=== PATIENT | female | born 1940 | race Caucasian/White ===

== ENCOUNTER 2016-12-26 07:55 | Day surgery (SDC) | payer MEDICARE, OTHER ==
[~2016-12-26] VITALS: Ht 160 cm; Wt 63.5 kg
[~2016-12-26 07:55] MED LIST: ASPIRIN EC325 MG PO; BACLOFEN10 MG PO; BENZONATATE200 MG PO; CELEXA20 MG PO; CEPHALEXIN500 MG PO; COMBIVENT INH14.7 GM INH; FENTANYL1 EAC2 TD; FLEXERIL10 MG PO; GABAPENTIN300 MG PO; HYDROCHLOROTH12.5 M1 PO; LEVOTHYROXINE25 MCG PO; MAGNESIUM250 M1 PO; METFORMIN HCL500 MG PO; NEXIUM20 MG PO; NITROGLYCERIN0.4 MG SL; NITROSTAT0.4 MG SL; NORCO 10-325 T1 EACH PO; NORCO 5-325 TA1 EACH PO; NORVASC5 MG PO; PRILOSEC40 MG PO; PROMETHAZINE HC25 MG PR; TOPROL XL50 MG PO; WELLBUTRIN XL150 MG PO; ZANAFLEX4 MG PO; ZOCOR20 MG PO; ZOFRAN ODT4 MG PO; ZOFRAN ODT4 MG SL
--- NOTE | 2016-12-26 09:47 | NUR ---
12/26/16 0947 Argelia Murphy 0959 PATIENT ARRIVES TO PACU UNRESPONSIVE TO VERBAL OR PAINFUL STIMULI. RESP EVEN AND UNLABORED, MASK AT 6 LITERS.
--- NOTE | 2016-12-28 12:08 | OR ---
[facility] [address] [place], [place] [address] Signed DATE OF SERVICE: 12/26/2016 PREOPERATIVE DIAGNOSES: Change in bowel habits with diarrhea. Diverticulosis. Internal hemorrhoids. Minimal rectal bleeding with her bowel prep. POSTOPERATIVE DIAGNOSES: Minimal to moderate sigmoid diverticulosis. Moderate external hemorrhoids. PROCEDURE: Colonoscopy with random cold biopsies. ESTIMATED BLOOD LOSS: None. INDICATIONS: Clementine is a 76-year-old female, whom I have known for several years. Recently, she had a change in bowel habits with diarrhea. She has also been on metformin for her diabetes. In addition, she has to use a fentanyl patch for chronic pain issues, and she uses citalopram each day for anxiety. She has had a surgical fusion, which limits the range of motion of her neck, and she has been using some Benefiber to help with the diarrhea. She was asked to see me for a followup colonoscopy. In 2009, she had an initial screening colonoscopy with myself. This revealed her diverticulosis and hemorrhoids. There is no family history of colon cancer or polyps. I gave Clementine a pamphlet in the office on colonoscopy, and we have reviewed the nature of the test along with the risks including, but not limited to gas bloating, crampy abdominal pain, bleeding, perforation requiring surgery, and missed diagnosis. Also because of her multiple medic al issues, we asked an anesthesia provider to help us with increased monitoring sedation with propofol. She had expressed understanding and wished to proceed. PROCEDURE NOTE: Clementine was taken into our endoscopy suite and placed in a left lateral decubitus position. She was given IV sedation with propofol per nurse ore smelter. A digital rectal exam was performed, and she does have moderate external hemorrhoids. The adult colonoscope was introduced, advanced all the way around into the cecum under direct visualization of camera without difficulty. Her prep was quite excellent. The scope was then slowly withdrawn. She had diverticulosis in the sigmoid colon. They were moderate in size, minimal to moderate in number and scattered about. We took random cold biopsies in the colon because of the history of diarrhea. The rectum itself was unremarkable. Upon retroflexion of scope, she does have some small internal hemorrhoid columns as well. After this, the gas was suctioned out. The colonoscope removed. Clementine mayer Electronically Signed By: LUKAS CASTAÑEDA MD 12/28/16 1208 PATIENT NAME: CLEMENTINE NUNEZ OPERATIVE REPORT DATE OF : 44 PHYSICIAN: LUKAS CASTAÑEDA MD REPORT #: [id number] REPORT IS CONFIDENTIAL AND NOT TO BE RELEASED WITHOUT AUTHORIZATION [facility] [address] [place], [place] [address] Signed the procedure quite well. RECOMMENDATIONS: I will see Clementine back in my office in 7-14 days to review her results. MD ED Street/[address] /[id number] cc: Lukas Castañeda MD's Office [facility] Electronically Signed By: LUKAS CASTAÑEDA MD 12/28/16 1208 PATIENT NAME: CLEMENTINE NUNEZ OPERATIVE REPORT DATE OF : 44 PHYSICIAN: LUKAS CASTAÑEDA MD REPORT #: [id number] REPORT IS CONFIDENTIAL AND NOT TO BE RELEASED WITHOUT AUTHORIZATION
== END 2016-12-26 10:15 | disposition home or self-care (01) ==
LOC: DS 07:55 → OPS 07:55 → DS 08:30 → OPS 08:30
PROVIDERS: Colon & Rectal Surgery
PROC: 0DBE8ZX Excision of Large Intestine, Via Natural or Artificial Opening Endoscopic, Diagnostic (ICD-10-PCS; principal; 2016-12-26 08:30)
DX: K52.9 Noninfective gastroenteritis and colitis, unspecified (principal); K57.30 Diverticulosis of large intestine without perforation or abscess without bleeding; K64.8 Other hemorrhoids; K64.4 Residual hemorrhoidal skin tags; I25.2 Old myocardial infarction; I10 Essential (primary) hypertension; J44.9 Chronic obstructive pulmonary disease, unspecified; K21.9 Gastro-esophageal reflux disease without esophagitis; E78.5 Hyperlipidemia, unspecified; E03.9 Hypothyroidism, unspecified; E11.9 Type 2 diabetes mellitus without complications; M19.90 Unspecified osteoarthritis, unspecified site; F32.9 Major depressive disorder, single episode, unspecified; Z85.3 Personal history of malignant neoplasm of breast; M85.80 Other specified disorders of bone density and structure, unspecified site; Z79.82 Long term (current) use of aspirin; Z79.01 Long term (current) use of anticoagulants; Z79.899 Other long term (current) drug therapy; Z90.710 Acquired absence of both cervix and uterus; Z95.1 Presence of aortocoronary bypass graft; Z90.11 Acquired absence of right breast and nipple; Z98.890 Other specified postprocedural states; Z91.02 Food additives allergy status
CPT/HCPCS: 00810; 88305; J2250; J3010; J7120

== ENCOUNTER 2017-08-19 11:33 | Inpatient (IN) | payer MEDICARE, OTHER ==
[~2017-08-19] VITALS: Ht 160 cm; Wt 67.6 kg
--- OUTSIDE RECORDS SUMMARY | ~2017-08-19 | XMS | Clinical Summary ---
Demographics + + + | Address | [address] | | | [place] [address] | + + + | Home Phone | | + + + | Preferred Language | Unknown | + + + | Marital Status | Unknown | + + + | Sikhism Affiliation | Unknown | + + + [...] Team Providers + +------+ + | Care Turbinated Bone Grinder Name | Role | Phone | + +------+ + PP | Unavailable | + +------+ + Source Comments HOLLY is fully live on both [facility] and [facility] InPatient.[facility] Allergies Not on File Current Medications Not [...] | + + + Plan of Treatment + + + + + | Health Maintenance | Due Date | Last Done | Comments | + + + + + | INFLUENZA VACCINE | | | | | (FLU SHOT) | 7 | | | + + + + + Results Not on filefrom Last 3 Months"
--- OUTSIDE RECORDS SUMMARY | ~2017-08-19 | XMS | Clinical Summary ---
Demographics + + + | Address | [address] | | | [place] [address] | + + + | Home Phone | | + + + | Preferred Language | Unknown | + + + | Marital Status | Unknown | + + + | Jew Affiliation | Unknown | + + + [...] Providers + +------+ + | Care Accounting Advisory Services Manager Name | Role | Phone | + +------+ + PP | Unavailable | + +------+ + Source Comments HOLLY is fully live on both [facility] Ambulatory and [facility] InPatient.[facility] & [facility] Allergies Not on File Current Medications Not [...]
--- OUTSIDE RECORDS SUMMARY | ~2017-08-19 | XMS | Clinical Summary ---
Demographics + + + | Address | [address] | | | [place] [address] | + + + | Home Phone | | + + + | Preferred Language | Unknown | + + + | Marital Status | Unknown | + + + | Cheondoism Affiliation | Unknown | + + + [...] Team Providers + +------+ + | Care Stile Ripsaw Operator Name | Role | Phone | + +------+ + PP | Unavailable | + +------+ + Source Comments HOLLY is fully live on both [facility] Ambulatory and [facility] InPatient.[facility] & [facility] Allergies Not on File Current Medications [...]
[~2017-08-19 11:33] MED LIST changes: +OMEPRAZOLE40 MG PO; -PRILOSEC40 MG PO
--- NOTE | 2017-08-19 16:25 | NUR ---
77 YEAR OLD FEMALE PATIENT ADMITTED TO CCU FROM ER VIA STRETCHER UNDER DR. DE LOS SANTOS WITH DX OF SEPSIS, PNEUMONIA. HAS HX OF DM TYPE 2, COPD, BREAST CA. PATIENT HAS BEEN FEELONG ILL FOR PAST 2 DAYS, HAS BEEN VOMITING AT HOME. RECIEVED 2 LITERS OF FLUID IN ER, ROCEPHIN AND ZITHROMAX, DUONEB. ADMITTING AMMONIA 65, HAS ELEVATED LIVER FUNCTIONS. CREAT-2.48. UPON ADMIT TO CCU PATIENT IS ALERT. ADMISSION PROCESS STARTED. O2 SAT-76. O2 INCREASED TO4 L NC
--- NOTE | 2017-08-19 17:05 | NUR ---
ABGS DRAWN EARLIER RESULTS, PH-7.27, PCO2-52.7, PO2-92, HCO3-23.0.
--- NOTE | 2017-08-19 18:40 | NUR ---
FEED PATIENT DINNER. HAVING DIFFICULTY WITH TRACKING THOUGHTS AND COORINATION. BIPAP TO BE STARTED. HAVING JERKING MOVEMENTS AT TIMES. FAMILY MEMBERS ARE IN ROOM.
--- NOTE | 2017-08-19 20:09 | NUR ---
REPORT RECEIVED AT 1900 FROM [facility]. IN TO SEE PT AT 1945. PT WITH EYES CLOSED. BIPAP ON PER RT. PT NODS HEAD YES OR NO. RAILS UP X4, BED ALARM ON. CALL LIGHT IN REACH. PT WITH EX WH UPPER L LOBE POSTERIOR, DIMINISHED THROUGHOUT OTHERWISE. PT NODDED HEAD NO TO PAIN OR NAUSEA.
--- NOTE | 2017-08-20 00:21 | NUR ---
REPOSITIONED PT TO FLOAT ON PILLOWS. PROVIDED BIPAP BREAK. PLACED ON 2L O2. PT ORIENTED, HOWEVER FORGETFUL. FORGOT PILLS IN MOUTH, EVEN THOUGH JUST GAVE THEM TO HER. NEEDED REMINDER TO SWALLOW THEM.
--- NOTE | 2017-08-20 02:29 | NUR ---
PT ASLEEP. O2 ON 2L. RR EVEN AND UNLABORED.
--- NOTE | 2017-08-20 05:08 | NUR ---
REPOSITIONED PT IN BED WITH PILLOWS, ELEVATED FEET. PT REMAINS FORGETFUL AND DROWSY. PLACED BIPAP ON. IPAP 10, EPAP 5, FIO2 25%. CALL LIGHT IN HAND. REMINDED PT THAT SHE IS NPO FOR PROCEDURE.
--- NOTE | 2017-08-20 06:51 | NUR ---
PT REQUESTED BIPAP OFF. PLACED ON 2L NC.
--- NOTE | 2017-08-20 11:00 | NUR ---
AMBULATING IN HALLWAY WITH PHYS THERAPY. WALKED WITH PHYS THERAPY USING WALKER, AMBULATED FROM ROOM 130 TO NURSES DESK THE BACK TO ROOM, THEN TO BED. HAS BEEN OFF BIPAP ALL DAY, IS ON ROOM AIR.
--- NOTE | 2017-08-20 13:21 | EKG ---
[facility] [address] [facility] [place], [place] [address] Signed Normal sinus rhythm Left axis deviation Incomplete right bundle branch block Anterior infarct , age undetermined Abnormal ECG Confirmed by JOSE DE LOS SANTOS MD ([id number]) on 08/20/2017 1:21:15 PM Electronically Signed By: JOSE DE LOS SANTOS MD 08/20/17 1321 PATIENT NAME: RADHA NUNEZ Electrocardiogram DATE OF : 44 PHYSICIAN: JOSE DE LOS SANTOS MD REPORT #: [id number] REPORT IS CONFIDENTIAL AND NOT TO BE RELEASED WITHOUT AUTHORIZATION
--- NOTE | 2017-08-20 17:25 | NUR ---
PATIENT RESTING IN THE CHAIR. PATIENTS DAUGHTER IN ROOM. RN IN ROOM. THIS TUB MENDER ASSISTED PATIENT FROM BATHROOM TO CHAIR 1PERSON SBA WITH FWW. PATIENT STATES THAT SHE HAD HER HODGE REMOVED PRIOR TO MOVING TO MED/SURG. PATIENT VOIDED AND STATED NO PAIN. CALL LIGHT WITHIN REACH. NO OTHER NEEDS AT THIS TIME.
--- NOTE | 2017-08-20 17:55 | NUR ---
REPORT RECIEVED FROM GRAYSON HAWKINS. PT UP IN BATHROOM AND HEALTH EDUCATION ASSISTANT ABOUT TO DO VS. PT DENIES CONCERNS. DAUGHTER IN ROOM. BS WNL. NO COVERAGE NEEDED.
--- NOTE | 2017-08-20 18:29 | NUR ---
PT TRANSFER FROM CCU THIS EVENING. NAVEEN PAINTER'Ade UO QS. LUNGS COARSE WITH NON PRODUCTIVE COUGH. SBA WITH FWW, USES CANE AT HOME. VS STABLE. VERY HARD STICK.
--- NOTE | 2017-08-20 18:55 | NUR ---
RECEIVED REPORT FROM RN. ASSISTED PATIENT TO BATHROOM WITH SBA/FWW. NOW RESTING IN CHAIR, BREATHING IS EVEN AND UNLABORED. DENIES FURTHER NEEDS. CALL LIGHT WITHIN REACH, FAMILY AT BEDSIDE.
--- NOTE | 2017-08-20 19:45 | NUR ---
ASSISTED PATIENT TO BATHROOM WITH SBA/FWW. NOW RESTING IN CHAIR AGAIN, BREATHING IS EVEN AND UNLABORED. DENIES FURTHER NEEDS. ASSESSMENT DONE. CALL LIGHT WITHIN REACH.
--- NOTE | 2017-08-20 20:45 | NUR ---
PATIENT ASSISTED TO THE BATHROOM WITH SBA/FWW. NOW RESTING IN BED, BREATHING IS EVEN AND UNLABORED. DENIES FURTHER NEEDS. CALL LIGHT WITHIN REACH, BED ALARM ON.
--- NOTE | 2017-08-20 20:54 | NUR ---
PATIENT CALLED TO USE THE BATHROOM. 1 PA WITH WALKER. PATIENT IS BACK IN BED. CALL LIGHT WITHIN REACH.
--- NOTE | 2017-08-20 21:20 | NUR ---
PATIENT RESTING COMFORTABLY IN BED, BREATHING IS EVEN AND UNLABORED. DENIES NEEDS AT THIS TIME. VITALS DONE, MEDICATIONS GIVEN. CALL LIGHT WITHIN REACH, BED ALARM ON.
--- NOTE | 2017-08-21 00:05 | NUR ---
PATIENT RESTING COMFORTABLY IN BED, BREATHING IS EVEN AND UNLABORED. DENIES NEEDS AT THIS TIME. CALL LIGHT WITHIN REACH, BED ALARM ON.
--- NOTE | 2017-08-21 02:30 | NUR ---
PATIENT RESTING COMFORTABLY IN BED, BREATHING IS EVEN AND UNLABORED. DENIES NEEDS AT THIS TIME. CALL LIGHT WITHIN REACH.
--- NOTE | 2017-08-21 04:00 | NUR ---
PATIENT RESTING COMFORTABLY IN BED, BREATHING IS EVEN AND UNLABORED. FLACC SCORE OF 0. CALL LIGHT WITHIN REACH.
--- NOTE | 2017-08-21 06:27 | NUR ---
PATIENT RESTING COMFORTABLY IN BED, BREATHING IS EVEN AND UNLABORED. DENIES NEEDS AT THIS TIME. CALL LIGHT WITHIN REACH.
--- NOTE | 2017-08-21 07:20 | NUR ---
REPORT RECIEVED FROM GRAYSON FRANCO. PT SLEPT WELL AND REPORTS SAME. AWAKE AND WATCHING TV. BP WORKING BEST WITH MANUAL BP.
--- NOTE | 2017-08-21 08:44 | NUR ---
ASSESSED PT AND ADMINISTERED MEDICATIONS. BP HIGH EVEN WITH MANUAL. 182/[address] DE LOS SANTOS ALTHOUGH ADMINISTERED METOPROLOL. PT STATES SHE IS USUALLY HIGH. EATING BREAKFAST AND DENIES CONCERNS. STATES SHE IS FEELING MUCH BETTER TODAY AND FEELS HER BREATHING IS BACK TO BASELINE.
--- NOTE | 2017-08-21 09:19 | NUR ---
VS AND I&O'S TAKEN AND DOCUMENTED. PT IS UP TO THE BATHROOM. INFORMED PT TO CALL WHEN SHE IS FINISHED, PT UNDERSTANDS. CALL LIGHT CORD IS IN REACH.
--- NOTE | 2017-08-21 10:15 | NUR ---
ASSISTED PT INTO BATHROOM. WALKING WELL WITH FWW. NO SOB NOTED.
--- NOTE | 2017-08-21 11:27 | NUR ---
ASSISTED PT BACK TO THE CHAIR FROM THE BATHROOM. ASKED PT IF SHE WOULD LIKE A SHOWER TODAY, PT STATES SHE WOULD LIKE TO TAKE ONE AFTER LUNCH. PT GIVEN FRESH ICE WATER. CALL LIGHT IS IN REACH.
[2017-08-21] MEDS ORDERED: CEFPODOXIME PR200 MG PO (12:10)
--- NOTE | 2017-08-21 13:39 | NUR ---
PT BACK IN BED FOR AFTERNOON REST TIME. DAUGHTER AT BEDSIDE. MEDICATION ADMINISTERED. SL. FENTYL PATCH PLACED BETWEEN SHOULDER BLADES PER REQUEST.
--- NOTE | 2017-08-21 13:45 | NUR ---
PATIENT RESTING IN BED WATCHING TV. CALL LIGHT WITHIN REACH. NO OTHER NEEDS AT THIS TIME.
--- NOTE | 2017-08-21 16:00 | NUR ---
PT CALLED TO STATE THE AB INFUSING WAS HURTING HER ARM. TURNED DOWN RATE TO HALF.
[2017-08-21] MEDS ORDERED: RANITIDINE HCL150 MG PO (16:03)
[2017-08-21] MEDS ORDERED: SIMVASTATIN40 MG PO (16:30)
[2017-08-21] MEDS ORDERED: DURAGESIC1 EAC1 TD (16:34)
[2017-08-21] MEDS ORDERED: GLUCOPHAGE500 MG PO (16:43)
--- NOTE | 2017-08-21 16:53 | NUR ---
PT UP TO THE RESTROOM WITH SBA AND FWW. IV INFUSING, PT TOLERATING WELL AFTER TURING RATE DOWN.
--- NOTE | 2017-08-21 18:16 | NUR ---
PT SL EXCEPT FOR AB. FENTYL PATCH BETWEEN SHOULDERS ON BACK. BS CHECKS DC'D. REPORTS LOOSE STOOL. PLAN TO DC TOMORROW.
--- NOTE | 2017-08-21 18:25 | NUR ---
THIS SERVICE CENTER COORDINATOR ASSISTED PATIENT TO THE RESTROOM. 1PERSON SBA WITH FWW. THIS SERVICE CENTER COORDINATOR ASSISTED PATIENT FROM THE RESTROOM BACK TO BED. FRESH ICE WATER. CALL LIGHT WITHIN REACH. NO OTHER NEEDS AT THIS TIME.
--- NOTE | 2017-08-21 19:00 | NUR ---
RECEIVED REPORT FROM DAY SHIFT RN. DAUGHTER AT BEDSIDE. PT IS ON RA. RR WNL. SBA WITH FWW. REPORTS NO PAIN AT HTIS TIME. CALL LIGHT WITHIN REACH. NO OTHER NEEDS AT THIS TIME.
--- NOTE | 2017-08-21 21:41 | NUR ---
ROUNDED CHARGE. PATIENT ASSISTED TO THE RESTROOM. PATIENT IS A SBA W/FWW AND IS STEADY ON HER FEET. PATIENT IS BACK IN BED RESTING. VITALS TAKEN AND RECORDED. PATIENT DENIES ANY NEEDS CALL LIGHT IN REACH.
--- NOTE | 2017-08-21 23:19 | NUR ---
HELPED PT TO BATHRROM SBA WITH FWW. STEADY ON FEET.
--- NOTE | 2017-08-22 03:17 | NUR ---
PT IN BED WITH LIGHTS OFF. APPEARS TO BE SLEEPING. CALL LIGHT WITHIN REACH. BED ALARM IN PLACE.
--- NOTE | 2017-08-22 06:52 | NUR ---
PT HAD GREAT NIGHT. SLEPT THROUGHOUT THE NIGHT. NO PAIN. LUNGS WERE CLEAR. IS HAVING SOME LOOSE STOOLS.
--- NOTE | 2017-08-22 07:30 | NUR ---
BEDSIDE HANDOFF REPORT RECEIVED FROM SIGNAL HELPER RN. PT RESTING IN BED. PT DENIES NEEDS AT THIS TIME.
--- NOTE | 2017-08-22 08:40 | NUR ---
PT RESTING IN BED, EATING BREAKFAST. PT DENIES PAIN. PT ASSISTED TO BATHROOM, CONTINUES TO HAVE LOOSE STOOL, PROVIDED WITH BARRIER CREAM AND CLEAN GOWN. PT ASSISTED BACK TO BED, 1PA. PT ON ROOM AIR, LUNG SOUNDS CLEAR UPPER COARSE LOWER, DENIES SOB, ENCOURAGED TO USE I/S AND ACAPELLA. CMS INATCT, WITHOUT EDEMA, PULSES PALPABLE. PT DENIES NAUSEA, TOLERATING ADA DIET, BOWEL TONES ACTIVE. PT SALINE LOCKED. DISCUSSED PLAN OF CARE FOR THE DAY. PT DENIES OTHER NEEDS AT THIS TIME.
--- NOTE | 2017-08-22 10:04 | NUR ---
PT SITTING IN CHAIR, SAID HE HAS IMPROVED. SHE ASKED ABOUT MASS HELD ON SITE. I ASKED IF SHE WOULD LIKE FOR THE DIRECTOR OF MARKETING COMMUNICATIONS TO VISIT. PT STATED SHE WOULD LIKE TO VIEW MASS FIRST AND THEN MAKE A DECISION. GAVE A BLESSING, WILL FOLLOW NEALEJANDRINA
== END 2017-08-22 10:35 | disposition home or self-care (01) | DRG 871 ==
LOC: ED 11:33 → CCU 15:20 → MS 08-20 16:30
PROVIDERS: ADMIT Internal Medicine
PROC: 5A09457 Assistance with Respiratory Ventilation, 24-96 Consecutive Hours, Continuous Positive Airway Pressure (ICD-10-PCS; principal; 2017-08-19)
DX: A41.9 Sepsis, unspecified organism (principal); J18.9 Pneumonia, unspecified organism; G93.41 Metabolic encephalopathy; J96.01 Acute respiratory failure with hypoxia; N17.9 Acute kidney failure, unspecified; N18.2 Chronic kidney disease, stage 2 (mild); I12.9 Hypertensive chronic kidney disease with stage 1 through stage 4 chronic kidney disease, or unspecified chronic kidney disease; R74.0 Nonspecific elevation of levels of transaminase and lactic acid dehydrogenase [LDH]; I25.10 Atherosclerotic heart disease of native coronary artery without angina pectoris; Z95.1 Presence of aortocoronary bypass graft; G89.29 Other chronic pain; M54.2 Cervicalgia; E11.9 Type 2 diabetes mellitus without complications; Z79.84 Long term (current) use of oral hypoglycemic drugs; F32.9 Major depressive disorder, single episode, unspecified; E03.9 Hypothyroidism, unspecified
CPT/HCPCS: 36415; 36600; 71045; 76705; 80053; 80069; 81001; 82140; 82306; 82570; 82803; 83605; 84100; 84300; 84439; 84443; 84484; 84540; 85025; 85610; 85730; 86704; 86706; 86709; 86803; 87040; 87340; 87502; 93005; 93010; 93306; 94640; 94660; 94668; 97110; 97116; 97162; J0456; J0696; J1650; J7030

== ENCOUNTER 2018-01-26 08:29 | Inpatient (IN) | payer MEDICARE, OTHER ==
[~2018-01-26] VITALS: Ht 160 cm; Wt 67.6 kg
--- OUTSIDE RECORDS SUMMARY | ~2018-01-26 | XMS | Encounter Summary ---
Demographics + + + | Address | [address] | | | [place] [address] | + + + | Home Phone | | + + + | Preferred Language | Unknown | + + + | Marital Status | | + + + | Mormonism Affiliation | [id number] | + + + | Race | Unknown | + + + | Ethnic Group | Unknown | + + + Author + + + | Author | [facility] | | | and [place] | + + + | Organization | [facility] | | | and [place] | + + + | Address | Unknown | + + + | Phone | Unavailable | + + + Support + + + + + | Name | Relationship | Address | Phone | + + + + + | Lucy Winchester | ECON | [place], [place] | | | | | [address] | | + + + + + | Kellen Briones | ECON | [place], [place] | | | | | [address] | | + + + + + Care Team Providers + +------+ + | Care Change Control Specialist Name | Role | Phone | + +------+ + | Barb Marte | PCP | | + +------+ + Reason for Referral Diagnostic/Screening (Routine) +--------+--------+ + + + + | Status | Reason | Specialty | Diagnoses / | Referred By | Referred To | | | | | Procedures | Contact | Contact | +--------+--------+ + + + + | Closed | | Radiology | Diagnoses | Joe, | [facility] | | | | | Lumbar | AYAAN Villareal | [address] | | | | | radiculopath | [address] | [place], | | | | | y | [address] | [place] | | | | | Procedures | [address] | [address] | | | | | MRI Lumbar | [place], | Phone: | | | | | Spine wo | [place] [address] | [phone] | | | | | Contrast | Phone: | Fax: | | | | | | [phone] | [phone] | | | | | | Fax: | | | | | | | [phone] | | +--------+--------+ + + + + Reason for Visit + + + | Reason | Comments | + + + | Follow-up | Low Back Pain | + + + Encounter Details +--------+---------+ + + + | Date | Type | Department | Care Team | Description | +--------+---------+ + + + | 01/07/ | Office | [facility] | Mono Diaz, | Lumbar radiculopathy | | 2018 | Visit | PHYSIATRY [address] | PA-C [address] | (Primary Dx); | | | | [place], | [address] [place] | Spinal stenosis of | | | | [place] [id number] | [place] [address] | lumbar region with | | | | [phone] | [phone] | [id number] | | | | | | level moderately | | | | | | severe | +--------+---------+ + + + Social History [...] + + + as of this encounter Last Filed Vital Signs + + + + | Vital Sign | Reading | Time Taken | + + + + | Blood Pressure | 165/88 | 01/07/2018 1450 PDT | + + + + | Pulse | 73 | 01/07/2018 1450 PDT | + + + + | Temperature | - | - | + + + + | Respiratory Rate | - | - | + + + + | Oxygen Saturation | - | - | + + + + | Inhaled Oxygen | - | - | | Concentration | | | + + + + | Weight | 64 kg (141 lb) | 01/07/2018 1450 PDT | + + + + | Height | 160 cm (5' 3") | 01/07/2018 1450 PDT | + + + + | Body Mass Index | 24.98 | 01/07/2018 1450 PDT | + + + + in this encounter Instructions Patient Instructions - Mono Diaz PA-C - 01/07/2018 1500 PDTLumbar MRI ordered, once ap proved by insurance radiology department will call you to set up an appointment. Possible Causes of Low Back or Leg Pain The symptoms in your back or leg may be due to pressure on a nerve. This pressure may be ca used by a damaged disk or by abnormal bone growth. Either way, you may feel pain, burning, t ingling, or numbness. If you have pressure on a nerve that connects to the sciatic nerve, chinmay in may shoot down your leg. Pressure from the disk Constant wear and tear can weaken a disk over time and cause back pain. The disk can then b e damaged by a sudden movement or injury. If its soft center begins to bulge, the disk may p ress on a nerve. Or the outside of the disk may tear, and the soft center may squeeze throug h and pinch a nerve. Pressure from bone As a disk wears out, the vertebrae right above and below the disk begin to touch. This can put pressure on a nerve. Often, abnormal bone (called bone spurs) grows where the vertebrae rub against each other. This can cause the foramen or the spinal canal to narrow (called dana nosis) and press against a nerve. Date Last Reviewed: 03/06/201519992912-5842 [employer] [address] [place] [address], [place] [address]. All righ ts reserved. This information is not intended as a substitute for professional medical care. Always follow your healthcare professional's instructions. in this encounter Progress Notes Mono Diaz PA-C - 01/07/2018 1500 PDTFormatting of this note may be different from the original. CHIEF COMPLAINT: Chief Complaint Patient presents with Follow-up Low Back Pain HISTORY OF PRESENT ILLNESS: Clementine Winchestre is a 77 y.o. female being seen today in follow-up for complaints of low ba ck pain. The patient has been seen for this complaint in the past. Previously it was oscar mmended that she receive bilateral L5/S1 TFESI for spinal stenosis. Her last injection was 06/27/16. She reports that the treatment was effective for approximately 3 months. The cintia ent reports overall her symptoms are worsening. She rates the pain as 5 on scale of 1-10. She describes the pain as a sharp, achy, tingling sensation to her low back and an aching pa in into both legs, sharp at times. Her symptoms worsen with standing and prolonged walking. Her symptoms improve with lying down, sitting down and medication use. She walks with a w alker. The patient does not describe numbness of the bilateral lower extremities. She does report weakness of the bilateral lower extremities. The patient does report recent falls w ith increased frequency lately. She does not have bowel and bladder dysfunction. She does not have saddle anesthesia. Treatments for these complaints have included prior steroid injections, physical therapy, c hiropractics therapy and narcotic medications use; she currently uses [place], Flexeril and ga bapentin. She is taking 900 mg of gabapentin 3 times a day. She is also taking baclofen 10 mg once a day. Patient's medications, allergies, past medical, surgical, social and family histories were reviewed and updated as appropriate. CURRENT MEDICATIONS: Current Outpatient Prescriptions Medication Sig Dispense Refill amLODIPine (NORVASC) 5 mg tablet Take 5 mg by mouth Daily. baclofen (LIORESAL) 10 mg tablet Take 1 tablet by mouth as needed. 60 tablet 2 benzonatate (TESSALON) 200 MG capsule Take 200 mg by mouth 3 times daily as needed. buPROPion (WELLBUTRIN SR) 150 mg 12 hr tablet Take 150 mg by mouth Daily. citalopram (CELEXA) 20 mg tablet Take 20 mg by mouth Daily. fentaNYL (DURAGESIC) 50 mcg/hr Place 1 patch onto the skin every 72 hours. gabapentin (NEURONTIN) 300 mg capsule Take 900 mg by mouth 3 times daily. hydroCHLOROthiazide (HYDRODIURIL) 12.5 MG tablet TK 1 T PO ONCE D 0 levothyroxine (SYNTHROID) 25 mcg tablet Take 25 mcg by mouth Daily. 5 magnesium, as oxide, 250 MG tablet Take 250 mg by mouth Daily. metFORMIN (GLUCOPHAGE) 500 mg tablet Take 500 mg by mouth nightly. Takes 1 tab in the m orning and 2 tabs at night nitroglycerin (NITROSTAT) 0.[address] [...] feel like she was in a fog. REVIEW OF SYSTEMS: GENERALLY: No fever, chills, weight changes. EYES: No vision changes. EARS, NOSE, AND THROAT: No hearing loss or + tinnitis,no difficulty swallowing, + hoarsenes s. NEUROMUSCULAR: Please see the review of systems discussed above in the history of present illness. In addition, the patient has no dizziness, no blackouts, no headaches. CARDIOVASCULAR: No chest pain, no palpitations PULMONARY: No shortness of breath, no cough. GASTROINTESTINAL: No nausea, + vomiting or diarrhea GENITOURINARY: No dysuria or hematuria SKIN: No rashes. HEMATOLOGIC/LYMPHATIC: No abnormal bleeding PHYSICAL EXAMINATION: Vitals: 01/07/18 1450 BP: 165/88 Pulse: 73 PainSc: 6 PainLoc: Back Body mass index is 24.98 kg/m. GENERAL: The patient is well developed and well nourished. She does not appear uncomfortab le when seated. HEENT: HEAD/FACE: EYES: Normocephalic and atraumatic. There are no areas of recent trauma. Normal sclerae without icterus. SKIN Limited skin exam shows no significant rashes or lesions. There are not scars in the lumbar region. CHEST: The patient is in no acute respiratory distress with unlabored respirations. HEART: There is not lower extremity edema. ABDOMEN: The patient is not obese. NEUROLOGIC: The patient is awake, alert, and oriented to time, place, person. She follows simple and complex commands. Her speech is fluent. She comprehends speech well. 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 She has appropriate fund of knowledge Cranial nerves 2-12 appear grossly intact. Sensory exam does not show diminished sensation to light touch in the lower extremities. MUSCULOSKELETAL There is no tenderness in the midline of the cervical or thoracic spine. T here is no major palpable deformity of the spine. Straight leg raise and slump-sit are positive on the left with referred right low back pain . Westley's maneuver and impingement testing were positive on the left with referred left l ow back pain. There was no tenderness to palpation over the greater trochanters. Mild ten derness over the right sacral sulci. The patient localized the majority of the pain to the lower lumbar region and down the left leg. Lumbar facet loading was positive with radiation of pain into right shoulder blade. Strength testing showed 4/5 strength throughout the low er extremities. The patient was unable to heel and toe walk. There was no redness, effusion , warmth or joint line tenderness in the knees or ankles. RADIOGRAPHIC REVIEW: The patient's imaging was reviewed in detail with the patient today during the visit. MRI from 2013 show spinal stenosis worse at L4/L5 with spondylolithesis L4-L5 and L5-S1, facet a rthritis, DDD. Cervical spine x-rays from June 2012 show cervical degenerative disc dise ase with spondylolisthesis primarily at C7-T1 along with multilevel facet arthritis. ASSESSMENT: 1. Lumbar radiculopathy PLAN: 1) Today we discussed the patient's differential diagnosis with the likely primary issue be ing lumbar radiculopathy secondary to stenosis. Patient's description of symptoms, physical exam, and imaging suggest this diagnosis at this time. 2) I counseled patient on treatment options which included conservative self management usi ng OTC NSAIDs/Ice and heat packs, physical therapy, prescription medications, epidural stero id injection, as well as possible surgical intervention. 3) Imaging: As descibed above in radiology review. MRI was ordered to assess lumbar spine for herniation, disc pathology, and/or nerve root impingement that may be contributing to patient's symptoms. 4) The patient has had significant conservative care including medications (NSAIDS and narc otics), PT (multiple sessions over the years) and critical care cns. Unfortunately Clementine Winchester continues to have significant discomfort. It appears to me that the pain is primari ly coming from lumbar stenosis. I did feel that Clementine Winchester would be a good candidate for medication: Baclofen 10 m g up to 3 times per day as needed. 5) Patient will follow up with me in 1 month to discuss any imaging and/or progress with yadi jorgensen's treatment plan. In likely TFESI procedure referral. 6) If current treatment plan is insufficient for symptom relief we could try bilateral L5/S 1 TF BAUTISTA as the next therapy option. I spent 30 minutes in visit with Clementine i[place] today with the majority of time spent cou nselling the patient on her diagnosis, options for her care, and coordinating her care. ELECTRONICALLY SIGNED BY: Mono Diaz PA-C, 01/07/18 in this encounter Plan of Treatment +--------+ + + + + | Date | Type | Specialty | Care Team | Description | +--------+ + + + + | 01/27/ | Appointment | Radiology | Barb Marte PA | | | 2017 | | | [address] | | | | | | [address] [place], [place] | | | | | | [address] | | | | | | | | | | | | [place] | | +--------+ + + + + | 01/27/ | Appointment | Radiology | Barb Marte PA | | | 2017 | | | [address] | | | | | | [address] [place], [place] | | | | | | [address] | | | | | | | | +--------+ + + + + | 02/11/ | Office | Physical Medicine | Mono Diaz, | | | 2017 | Visit | and Rehabilitation | AYAAN MCNALLY | | | | | | [facility] [address] | | | | | | [place] [address] | | | | | | [phone] | | | | | | | | +--------+ + + + + as of this encounter Results MRI Lumbar Spine wo Contrast (01/22/2018 1328) + + + | Narrative | Performed At | + + + | UNENHANCED MRI LUMBAR SPINE 01/22/2018 1:26 PM CLINICAL HISTORY: | [facility] | | Increased frequency and falls, leg weakness, hx lumbar | | | stenosis COMPARISON: MRI September 2013 and more remote | | | imaging TECHNIQUE: The following 1.5T MR sequences of the | | | lumbar spine were obtained: 1. Axial and sagittal T1. | | | 2. Axial, sagittal, and coronal T2. 3. Sagittal STIR. | | | FINDINGS: Five non rib-bearing, lumbar type vertebrae are suggested on | | | the coronal sequence. Leftward lumbar curvature centered at L1-2 | | | persists. A benign hemangioma is again demonstrated in the L2 | | | vertebral body. Marrow signal is otherwise normal. Vertebral | | | height is maintained without evident fracture or | | | spondylolysis. The conus medullaris is unremarkable, terminating at | | | L1-2. Imaged intra-abdominal and paraspinal structures are | | | unremarkable. Facet hypertrophy is again apparent at T10-11 and a | | | mild posterior disc bulge and left paramedian disc protrusion persist | | | at T11-12, without significant stenosis appreciated on provided | | | sagittal images through the region. T12-L1: 2 mm anterolisthesis | | | and a generalized posterior disc bulge combine with dorsal | | | ligamentous and facet hypertrophy to mildly narrow the central canal | | | and minimally narrow the foramina to a similar degree, without | | | visible nerve root encroachment. L1-2: Severe, progressive | | | right-sided disc space narrowing and Modic endplate hyperintensity | | | are present. 2 mm retrolisthesis persists, combining with | | | progressive posterior disc bulge and right lateral disc osteophyte | | | complex as well as dorsal ligamentous and facet hypertrophy to mild | | | to moderately narrow the central canal, mildly narrow the left | | | foramen and moderately narrow the right foramen to a greater | | | degree. There is encroachment on the exiting right L1 nerve root | | | and disc also approximates the descending L2 nerve roots within the | | | subarticular recesses. Trace facet joint effusions are present. | | | L2-3: Moderate to severe right-sided disc space narrowing, mild Modic | | | endplate hyperintensity, 2 mm retrolisthesis, generalized posterior | | | disc bulge and right lateral disc osteophyte complex persist, | | | combining with dorsal ligamentous and facet hypertrophy to mild to | | | moderately narrow the central canal and right foramen to a greater | | | degree without visible nerve root encroachment. L3-4: Moderate to | | | severe disc space narrowing, Modic endplate hyperintensity, minimal | | | anterolisthesis, and generalized disc bulge and left lateral disc | | | osteophyte complex persist, combining with dorsal ligamentous and | | | facet hypertrophy to moderate to severely narrow the central canal | | | and mild to moderately narrow the left foramen to a similar degree, | | | with encroachment on the exiting left L3 nerve root. L4-5: | | | Moderate to severe disc space narrowing, progressive Modic endplate | | | hyperintensity, 5.5 mm chronic anterolisthesis, generalized posterior | | | disc bulge and progressive left lateral disc osteophyte complex | | | combine with dorsal ligamentous and facet hypertrophy to severely | | | narrow the central canal and moderately narrow the left foramen to a | | | slightly greater degree, with encroachment on the exiting left L4 | | | nerve root along with the descending L5 nerve roots within the | | | subarticular recesses. L5-S1: Moderate to severe disc space | | | narrowing and generalized disc osteophyte complex combine with dorsal | | | ligamentous and facet hypertrophy to moderately narrow the foramina | | | to a similar degree, with encroachment on the exiting L5 nerve roots | | | along with the descending S1 nerve roots. IMPRESSION - | | | 1. SIMILAR DEGENERATIVE DISC DISEASE, FORAMINAL STENOSIS AND | | | EXITING AND DESCENDING NERVE ROOT ENCROACHMENT AT L5-S1 COMPARED WITH | | | MRI OF SEPTEMBER 2013. 2. 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 3. SIMILAR | | | DEGENERATIVE DISC DISEASE AND MINIMAL ANTEROLISTHESIS AT L3-4 WITH | | | MODERATE TO SEVERE CENTRAL CANAL STENOSIS, MILD TO MODERATE LEFT | | | FORAMINAL STENOSIS AND ENCROACHMENT ON THE LEFT L3 NERVE ROOT. | | | 4. DEGENERATIVE DISC DISEASE AND CHRONIC MILD RETROLISTHESIS AT | | | L2-3 WITH PROGRESSIVE, MILD TO MODERATE CENTRAL CANAL AND RIGHT | | | FORAMINAL STENOSIS. 5. PROGRESSIVE, ASYMMETRIC DEGENERATIVE | | | DISC DISEASE AT L1-2 WITH GREATER, MILD TO MODERATE STENOSIS AND | | | ENCROACHMENT ON THE RIGHT L1 NERVE ROOT AND DESCENDING L2 NERVE | | | ROOTS. 6. PROGRESSIVE DEGENERATIVE DISC DISEASE AND MILD | | | ANTEROLISTHESIS AT T12-L1 WITH MILD STENOSIS. 7. LEVOSCOLIOSIS | | | AND MULTILEVEL FACET ARTHROPATHY. Dictated and Signed by: | | | Papito Coffman MD Electronically signed: 01/22/2018 3:53 PM | | + + + + + | Procedure Note | + + | Howard, Rad Results In - 01/22/2018 1556 PDT UNENHANCED MRI LUMBAR SPINE 01/22/2018 1:26 | | PMCLINICAL HISTORY: Increased frequency and falls, leg weakness, hx lumbarstenosis | | COMPARISON: MRI September 2013 and more remote imagingTECHNIQUE: The following 1.5T MR | | sequences of the lumbar spine were obtained:1. Axial and sagittal T1.2. Axial, | | sagittal, and coronal T2.3. Sagittal STIR.FINDINGS: Five non rib-bearing, lumbar type | | vertebrae are suggested on thecoronal sequence. Leftward lumbar curvature centered at | | L1-2 persists. A benignhemangioma is again demonstrated in the L2 vertebral body. | | Marrow signal isotherwise normal. Vertebral height is maintained without evident | | fracture orspondylolysis. The conus medullaris is unremarkable, terminating at L1-2. | | Imaged intra-abdominal and paraspinal structures are unremarkable.Facet hypertrophy is | | again apparent at T10-11 and a mild posterior disc bulgeand left paramedian disc | | protrusion persist at T11-12, without significantstenosis appreciated on provided | | sagittal images through the region.T12-L1: 2 mm anterolisthesis and a generalized | | posterior disc bulge combine withdorsal ligamentous and facet hypertrophy to mildly | | narrow the central canal andminimally narrow the foramina to a similar degree, without | | visible nerve rootencroachment.L1-2: Severe, progressive right-sided disc space | | narrowing and Modic endplatehyperintensity are present. 2 mm retrolisthesis persists, | | combining withprogressive posterior disc bulge and right lateral disc osteophyte complex | | aswell as dorsal ligamentous and facet hypertrophy to mild to moderately narrowthe | | central canal, mildly narrow the left foramen and moderately narrow theright foramen to | | a greater degree. There is encroachment on the exiting rightL1 nerve root and disc also | | approximates the descending L2 nerve roots withinthe subarticular recesses. Trace | | facet joint effusions are present.L2-3: Moderate to severe right-sided disc space | | narrowing, mild Modic endplatehyperintensity, 2 mm retrolisthesis, generalized posterior | | disc bulge and rightlateral disc osteophyte complex persist, combining with dorsal | | ligamentous andfacet hypertrophy to mild to moderately narrow the central canal and | | rightforamen to a greater degree without visible nerve root encroachment.L3-4: Moderate | | to severe disc space narrowing, Modic endplate hyperintensity,minimal anterolisthesis, | | and generalized disc bulge and left lateral discosteophyte complex persist, combining | | with dorsal ligamentous and facethypertrophy to moderate to severely narrow the central | | canal and mild tomoderately narrow the left foramen to a similar degree, with | | encroachment on theexiting left L3 nerve root.L4-5: Moderate to severe disc space | | narrowing, progressive Modic endplatehyperintensity, 5.5 mm chronic anterolisthesis, | | generalized posterior disc bulgeand progressive left lateral disc osteophyte complex | | combine with dorsalligamentous and facet hypertrophy to severely narrow the central | | canal andmoderately narrow the left foramen to a slightly greater degree, | | withencroachment on the exiting left L4 nerve root along with the descending [id number] | | roots within the subarticular recesses.L5-S1: Moderate to severe disc space narrowing | | and generalized disc osteophytecomplex combine with dorsal ligamentous and facet | | hypertrophy to moderatelynarrow the foramina to a similar degree, with encroachment on | | the exiting K8nervd roots along with the descending S1 nerve roots.IMPRESSION -1. | | SIMILAR DEGENERATIVE DISC DISEASE, FORAMINAL STENOSIS AND EXITING ANDDESCENDING NERVE | | ROOT ENCROACHMENT AT L5-S1 COMPARED WITH MRI OF SEPTEMBER 2013.2. PROGRESSIVE DEGENERATIVE | | DISC DISEASE AND CHRONIC ANTEROLISTHESIS AT L4-5WITH SLIGHTLY GREATER, SEVERE CENTRAL | | CANAL AND ASYMMETRIC LEFT FORAMINALSTENOSIS AND ENCROACHMENT ON THE LEFT L4 AND | | BILATERAL L5 NERVE ROOTS.3. SIMILAR DEGENERATIVE DISC DISEASE AND MINIMAL | | ANTEROLISTHESIS AT L3-4 WITHMODERATE TO SEVERE CENTRAL CANAL STENOSIS, MILD TO MODERATE | | LEFT FORAMINALSTENOSIS AND ENCROACHMENT ON THE LEFT L3 NERVE ROOT.4. 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 PROGRESSIVE, ASYMMETRIC DEGENERATIVE DISC | | DISEASE AT L1-2 WITH GREATER, MILDTO MODERATE STENOSIS AND ENCROACHMENT ON THE RIGHT L1 | | NERVE ROOT AND DESCENDINGL2 NERVE ROOTS.6. PROGRESSIVE DEGENERATIVE DISC DISEASE AND | | MILD ANTEROLISTHESIS AT L09-X2YPPN MILD STENOSIS.7. LEVOSCOLIOSIS AND MULTILEVEL FACET | | ARTHROPATHY.Dictated and Signed by: Papito Coffman MD Electronically signed: 01/22/2018 | | 3:53 PM | |encroachment on the exiting left L4 nerve root along with the descending L5 | |nerve roots within the subarticular recesses. | | | |L5-S1: Moderate to severe disc space narrowing and generalized disc osteophyte | |complex combine with dorsal ligamentous and facet hypertrophy to moderately | |narrow the foramina to a similar degree, with encroachment on the exiting L5 | |nerve roots along with the descending S1 nerve roots. | | | |IMPRESSION - | |1. SIMILAR DEGENERATIVE DISC DISEASE, FORAMINAL STENOSIS AND EXITING AND | |DESCENDING NERVE ROOT ENCROACHMENT AT L5-S1 COMPARED WITH MRI OF SEPTEMBER 2013. | | | |2. 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 | | | |3. SIMILAR DEGENERATIVE DISC DISEASE AND MINIMAL ANTEROLISTHESIS AT L3-4 WITH | |MODERATE TO SEVERE CENTRAL CANAL STENOSIS, MILD TO MODERATE LEFT FORAMINAL | |STENOSIS AND ENCROACHMENT ON THE LEFT L3 NERVE ROOT. | | | |4. 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 | | | |5. PROGRESSIVE, ASYMMETRIC DEGENERATIVE DISC DISEASE AT L1-2 WITH GREATER, MILD | |TO MODERATE STENOSIS AND ENCROACHMENT ON THE RIGHT L1 NERVE ROOT AND DESCENDING | |L2 NERVE ROOTS. | | | |6. PROGRESSIVE DEGENERATIVE DISC DISEASE AND MILD ANTEROLISTHESIS AT T12-L1 | |WITH MILD STENOSIS. | | | |7. LEVOSCOLIOSIS AND MULTILEVEL FACET ARTHROPATHY. | | | |Dictated and Signed by: Papito Coffman MD | | Electronically signed: 01/22/2018 3:53 PM | + + + +---------+ + + | Performing | Address | City/State/Zipcode | Phone Number | | Organization | | | | + +---------+ + + | [facility] | | | | + +---------+ + + in this encounter Visit Diagnoses + + | Diagnosis | + + | Lumbar radiculopathy - Primary | + + | Thoracic or lumbosacral neuritis or radiculitis, unspecified | + + | Spinal stenosis of lumbar region with [id number] level moderately severe | + + | Spinal stenosis, lumbar region, without neurogenic claudication | + +
--- OUTSIDE RECORDS SUMMARY | ~2018-01-26 | XMS | Encounter Summary ---
Demographics + + + | Address | [address] | | | [place] [address] | + + + | Home Phone | | + + + | Preferred Language | Unknown | + + + | Marital Status | | + + + | Congregation Affiliation | 1041 | + + + | Race | Unknown | + + + | Ethnic Group | Unknown | + + + Author + + + | Author | [facility] | | | and Ot[place]ielana | + + + | Organization | [facility] | | | and [place] | + + + | Address | Unknown | + + + | Phone | Unavailable | + + + Support + + + + + | Name | Relationship | Address | Phone | + + + + + | Lucy Winchester | ECON | [place], [place] | | | | | [address] | | + + + + + | Kellen Briones | ECON | [place] | | | | | [address] | | + + + + + Care Team Providers + +------+ + | Care Plastic Extruding Machine Operator Name | Role | Phone | + +------+ + | Barb Marte | PCP | | + +------+ + Encounter Details +--------+ + + + + | Date | Type | Department | Care Team | Description | +--------+ + + + + | 01/20/ | Ancillary | [facility] | Barb Marte PA | Abnormal mammogram | | 2018 | Orders | MED CTR XRAY [address] | [address] | | | | | [place] | [address] [place] | | | | | [place] [address] | [address] | | | | | [phone] | | | +--------+ + + + [...] as of this encounter Plan of Treatment +--------+ + + + + | Date | Type | Specialty | Care Team | Description | +--------+ + + + + | 01/27/ | Appointment | Radiology | Barb Marte PA | | | 2017 | | | [address] | | | | | | [address] [place], [place] | | | | | | [address] | | | | | | | | | | | | [place] | | +--------+ + + + + | 01/27/ | Appointment | Radiology | Barb Marte PA | | | 2017 | | | [address] | | | | | | [address] [place], [place] | | | | | | [address] | | | | | | | | +--------+ + + + + | 02/11/ | Office | Physical Medicine | Mono Diaz, | | | 2017 | Visit | and Rehabilitation | AYAAN [address] | | | | | | [facility] [address] | | | | | | [place] [address] | | | | | | [phone] | | | | | | | | +--------+ + + + + + +--------+ + + | Name | Priori | Associated Diagnoses | Order Schedule | | | ty | | | + +--------+ + + | RACHEL Tomosynthesis Diagnostic Left | Routin | Abnormal mammogram | Expected: | | | e | | 01/20/2018, Expires: | | | | | 03/22/2019 | + +--------+ + + | US Breast Limited Left | Routin | Abnormal mammogram | Expected: | | | e | | 01/20/2018, Expires: | | | | | 01/20/2019 | + +--------+ + + as of this encounter Visit Diagnoses + + | Diagnosis | + + | Abnormal mammogram | + + | Abnormal mammogram, unspecified | + +"
--- OUTSIDE RECORDS SUMMARY | ~2018-01-26 | XMS | Encounter Summary ---
Demographics + + + | Address | [address] | | | [place] [address] | + + + | Home Phone [...] + | Author | [facility] | | | and [place]ielana | + + + | Organization | [facility] | | | and [place] | + + + | Address | Unknown | + + + | Phone | Unavailable | + + + Support + + + + + | Name | Relationship | Address | Phone | + + + + + | Lucy Winchester | ECON | [place], [place] | | | | | [address] | | + + + + + | Kellen Briones | ECON | [place] | | | | | [address] | | + + + + + Care Team Providers + +------+ + | Care Advertising Agent Name | Role | Phone | + +------+ + | Barb Marte | PCP | | + +------+ + Encounter Details +--------+ + + + + | Date | Type | Department | Care Team | Description | +--------+ + + + + | 01/17/ | Ancillary | [facility] | Provider, | | | 2018 | Orders | MED CTR EXTERNAL | MD [address] | | | | | IMAGING | [place] | | | | | [phone] | [place] [address] | | +--------+ + + + + [...] [place] | | | | | | [address] | | | | | | | | | | | | [place] | | +--------+ + + + + | 01/27/ | Appointment | Radiology | Barb Marte PA | | | 2017 | | | [address] | | | | | | [address] [place], [place] | | | | | | [address] | | | | | | | | +--------+ + + + + | 02/11/ | Office | Physical Medicine | Mono Diaz, | | | 2017 | Visit | and Rehabilitation | A[facility] | | | | | | [facility] [address] | | | | | | [place] [address] | | | | | | [phone] | | | | | | | | +--------+ + + + + as of this encounter Results RACHEL Digital Screening Left (10/27/2015 1315) + + + | Narrative | Performed At | + + + | External films for comparison only | [facility] | | | | | No results will be in the chart. | | + + + + +---------+ + + | Performing | Address | City/State/Zipcode | Phone Number | | Organization | | | | + +---------+ + + | [facility] | | | | + +---------+ + + RACHEL Digital Screening Left (04/27/2013 1430) + + + | Narrative | Performed At | + + + | External films for comparison only | [facility] | | | | | No results will be in the chart. | | + + + + +---------+ + + | Performing | Address | City/State/Zipcode | Phone Number | | Organization | | | | + +---------+ + + | [facility] | | | | + +---------+ + + RACHEL Digital Screening Bilateral (05/08/2011 1420) + + + | Narrative | Performed At | + + + | External films for comparison only | [facility] | | | | | No results will be in the chart. | | + + + + +---------+ + + | Performing | Address | City/State/Zipcode | Phone Number | | Organization | | | | + +---------+ + + | [facility] | | | | + +---------+ + + in this encounter Visit Diagnoses Not on filein this encounter"
--- OUTSIDE RECORDS SUMMARY | ~2018-01-26 | XMS | Encounter Summary ---
Demographics + + + | Address | [address] | | | [place] [address] | + + + | Home Phone | | + + + | Preferred Language | Unknown | + + + | Marital Status | | + + + | Sabianist Affiliation | 1041 | + + + | Race | Unknown | + + + | Ethnic Group | Unknown | + + + Author + + + | Author | [facility] | | | and [place]iel[place] | + + + | Organization | [facility] | | | and [place] | + + + | Address | Unknown | + + + | Phone | Unavailable | + + + Support + + + + + | Name | Relationship | Address | Phone | + + + + + | Lucy Winchester | ECON | [place], [place] | | | | | [address] | | + + + + + | Kellen Briones | ECON | [place] | | | | | [address] | | + + + + + Care Team Providers + +------+ + | Care Application Support Analyst Name | Role | Phone | + +------+ + | Barb Marte | PCP | | + +------+ + Encounter Details +--------+ + + + + | Date | Type | Department | Care Team | Description | +--------+ + + + + | 11/05/ | Hospital | [facility] | Irving Becerril, | Status post cervical | | 2018 | Encounter | MED CTR XRAY [address] | DO [address] | spinal fusion | | | | [place] | [address] [place], | | | | | [place] [address] | [place] [address] | | | | | [phone] | [phone] | | | | | | | [...] + + + as of this encounter Medications at Time of Discharge + + +--------+---------+ + + | Medication | Sig. | Disp. | Refills | Start | End Date | | | | | | Date | | + + +--------+---------+ + + | amLODIPine | Take 5 mg by mouth | | | | | | (NORVASC) 5 mg | Daily. | | | | | | tablet | | | | | | + + +--------+---------+ + + | benzonatate | Take 200 mg by mouth | | | | | | (TESSALON) 200 MG | 3 times daily as | | | | | | capsule | needed. | | | | | + + +--------+---------+ + + | buPROPion | Take 150 mg by mouth | | | | | | (WELLBUTRIN SR) 150 | Daily. | | | | | | mg 12 hr tablet | | | | | | + + +--------+---------+ + + | citalopram | Take 20 mg by mouth | | | | | | (CELEXA) 20 mg | Daily. | | | | | | tablet | | | | | | + + +--------+---------+ + + | fentaNYL | Place 1 patch onto | | | | | | (DURAGESIC) 50 | the skin every 72 | | | | | | mcg/hr | hours. | | | | | + + +--------+---------+ + + | gabapentin | Take 900 mg by mouth | | | | | | (NEURONTIN) 300 mg | 3 times daily. | | | | | | capsule | | | | | | + + +--------+---------+ + + | | TK 1 T PO ONCE D | | 0 | 10/10/20 | | | hydroCHLOROthiazide | | | | 16 | | | (HYDRODIURIL) 12.5 | | | | | | | MG tablet | | | | | | + + +--------+---------+ + + | magnesium, as | Take 250 mg by mouth | | | | | | oxide, 250 MG tablet | Daily. | | | | | + + +--------+---------+ + + | metFORMIN | Take 500 mg by mouth | | | | | | (GLUCOPHAGE) 500 mg | nightly. Takes 1 | | | | | | tablet | tab in the morning | | | | | | | and 2 tabs at night | | | | | + + +--------+---------+ + + | nitroglycerin | Place 0.4 mg under | | | | | | (NITROSTAT) 0.4 mg | the tongue every 5 | | | | | | SL tablet | minutes as needed. | | | | | + + +--------+---------+ + + | omeprazole | Take 40 mg by mouth | | | | | | (PRILOSEC) 20 mg | every morning | | | | | | capsule | (before breakfast). | | | | | + + +--------+---------+ + + | simvastatin | TK 1 T PO ONCE D | | 9 | 03/12/20 | | | (ZOCOR) 40 mg tablet | | | | 16 | | + + +--------+---------+ + + | ferrous sulfate | Take 300 mg by mouth | | | | | | 300 mg/5 mL syrup | Daily. | | | | 8 | + + +--------+---------+ + + | furosemide (LASIX) | Take 20 mg by mouth | | | | | | 20 mg tablet | Daily. | | | | 8 | + + +--------+---------+ + + | | Take 1-2 tablets [...] | | | | | + + +--------+---------+ + + | methocarbamol | Take 1-2 tablets by | 90 | 3 | 07/04/19 | | | (METHOCARBAMOL) 750 | mouth every 6 hours | tablet | | 17 | 8 | | mg tablet | as needed for Muscle | | | | | | | spasms. | | | | | + + +--------+---------+ + + as of this encounter Plan of Treatment +--------+ + + + + | Date | Type | Specialty | Care Team | Description | +--------+ + + + + | 01/27/ | Appointment | Radiology | Barb Marte PA | | | 2017 | | | [address] | | | | | | [address] [place], [place] | | | | | | [address] | | | | | | | | | | | | [place] | | +--------+ + + + + | 01/27/ | Appointment | Radiology | Barb Marte PA | | | 2017 | | | [address] | | | | | | [address] [place], [place] | | | | | | [address] | | | | | | | | +--------+ + + + + | 02/11/ | Office | Physical Medicine | Mono Diaz, | | | 2017 | Visit | and Rehabilitation | [facility] | | | | | | [address] | | | | | | [place] [address] | | | | | | [phone] | | | | | | | | +--------+ + + + + as of this encounter Procedures + +--------+ + + + | Procedure Name | Priori | Date/Time | Associated Diagnosis | Comments | | | ty | | | | + +--------+ + + + | XR CERVICAL SPINE 2 | Routin | 11/05/2017 | Status post | Results for this | | OR 3 VIEWS | e | 1131 PDT | cervical spinal | procedure are in the | | | | | fusion | results section. | + +--------+ + + + in this encounter Results XR Cervical Spine [...] + | Status post cervical spinal fusion | + + | Arthrodesis status | + +"
--- OUTSIDE RECORDS SUMMARY | ~2018-01-26 | XMS | Encounter Summary ---
Demographics + + + | Address | [address] | | | [place] [address] | + + + | Home Phone | | + + + | Preferred Language | Unknown | + + + | Marital Status | | + + + | Religion Affiliation | 1041 | + + + | Race | Unknown | + + + | Ethnic Group | Unknown | + + + Author + + + | Author | [facility] | | | and [place]iel[place] | + + + | Organization | [facility] | | | and [place] | + + + | Address | Unknown | + + + | Phone | Unavailable | + + + Support + + + + + | Name | Relationship | Address | Phone | + + + + + | Lucy Winchester | ECON | [place], [place] | | | | | [address] | | + + + + + | Kellen Briones | ECON | [place] | | | | | [address] | | + + + + + Care Team Providers + +------+ + | Care Welder Apprentice Gas Name | Role | Phone | + +------+ + | Barb Marte | PCP | | + +------+ + Encounter Details +--------+ + + + + | Date | Type | Department | Care Team | Description | +--------+ + + + + | 12/26/ | Ancillary | [facility] | Barb Marte PA | Visit for screening | | 2018 | Orders | MED CTR XRAY [address] | [address] | mammogram | | | | [place] | [address], [place] | | | | | [place] [address] | [address] | | | | | [phone] | | | +--------+ + + + [...] [place] | | | | | | [address] | | | | | | | | | | | | [place] | | +--------+ + + + + | 01/27/ | Appointment | Radiology | Barb Marte PA | | | 2017 | | | [address] | | | | | | [address] [place], [place] | | | | | | [address] | | | | | | | | +--------+ + + + + | 02/11/ | Office | Physical Medicine | Mono Diaz, | | | 2017 | Visit | and Rehabilitation | [facility] [address] | | | | | | [facility] [address] | | | | | | [place] [address] | | | | | | [phone] | | | | | | | | +--------+ + + + + as of this encounter Results RACHEL Tomosynthesis Screening Left (01/03/2018 1309) + + + | Narrative | Performed At | + + + | DIGITAL LEFT SCREENING MAMMOGRAM WITH COMPUTER-AIDED DETECTION AND | [facility] | | TOMOSYNTHESIS 01/03/2018 1:09 PM CLINICAL HISTORY: Right breast | | | cancer and mastectomy in 1989. Left breast screening exam. | | | Asymptomatic, postmenopausal. COMPARISON: 2015, 2012 and 2010 | | | analog exams FINDINGS: Breast composition is comprised of | | | scattered fibroglandular densities. A rounded density is now visible | | | in the far posterior breast at the level of the nipple line on the CC | | | view, projecting approximately 9 cm from the nipple and | | | demonstrating fairly circumscribed margins with some mixed internal | | | density on the marcos images. No correlate is visible on the MLO | | | view. There is no associated architectural distortion. No other | | | mass, distortion or suspicious calcification is visible on the 2-D | | | or marcos images. Numerous round and punctate calcifications | | | persist, without suspicious grouping. Images were reviewed with | | | CAD. IMPRESSION - 1. BIRADS 0, further evaluation required. | | | RECOMMENDATION: Follow-up true lateral, repeat MLO and spot | | | compression CC combo views of the left breast and possible left | | | breast ultrasound for further characterization of a rounded density | | | in the far posterior breast. Dictated and Signed by: | | | Papito Coffman MD Electronically signed: 01/17/2018 4:29 PM | | + + + + + | Procedure Note | + + | Howard, Rad Results In - 01/17/2018 1632 PDT DIGITAL LEFT SCREENING MAMMOGRAM WITH | | COMPUTER-AIDED DETECTION AND TOMOSYNTHESIS01/03/2018 1:09 PMCLINICAL HISTORY: Right breast | | cancer and mastectomy in 1989. Left breastscreening exam. Asymptomatic, | | postmenopausal.COMPARISON: 2015, 2012 and 2010 analog examsFINDINGS: Breast composition | | is comprised of scattered fibroglandulardensities. A rounded density is now visible in | | the far posterior breast at thelevel of the nipple line on the CC view, projecting | | approximately 9 cm from thenipple and demonstrating fairly circumscribed margins with | | some mixed internaldensity on the marcos images. No correlate is visible on the MLO view. | | There isno associated architectural distortion. No other mass, distortion or | | suspiciouscalcification is visible on the 2-D or marcos images. Numerous round and | | punctatecalcifications persist, without suspicious grouping. Images were reviewed | | withCAD.IMPRESSION -1. BIRADS 0, further evaluation required.RECOMMENDATION: Follow-up | | true lateral, repeat MLO and spot compression CC comboviews of the left breast and | | possible left breast ultrasound for furthercharacterization of a rounded density in the | | far posterior breast.Dictated and Signed by: Papito Coffman MD Electronically signed: | | 01/17/2018 4:29 PM | |CAD. | | | |IMPRESSION - | |1. BIRADS 0, further evaluation required. | | | |RECOMMENDATION: Follow-up true lateral, repeat MLO and spot compression CC combo | |views of the left breast and possible left breast ultrasound for further | |characterization of a rounded density in the far posterior breast. | | | |Dictated and Signed by: Papito Coffman MD | | Electronically signed: 01/17/2018 4:29 PM | + + + +---------+ + + | Performing | Address | City/State/Zipcode | Phone Number | | Organization | | | | + +---------+ + + | [facility] | | | | + +---------+ + + in this encounter Visit Diagnoses + + | Diagnosis | + + | Visit for screening mammogram | + + | Other screening mammogram | + +"
--- OUTSIDE RECORDS SUMMARY | ~2018-01-26 | XMS | Encounter Summary ---
Demographics + + + | Address | [address] | | | [place] [address] | + + + | Home Phone [...] + | Author | [facility] | | | and [place]iel[place] | + + + | Organization | [facility] | | | and [place] | + + + | Address | Unknown | + + + | Phone | Unavailable | + + + Support + + + + + | Name | Relationship | Address | Phone | + + + + + | Lucy Winchester | ECON | [place], [place] | | | | | [address] | | + + + + + | Kellen Briones | ECON | [place], [place] | | | | | [address] | | + + + + + Care Team Providers + +------+ + | Care Quality Assurance Supervisor Body Name | Role | Phone | + [...] Lumbar | AYAAN Villareal | [address] | | | | | radiculopath | [address] | [place], | | | | | y | [address] | [place] | | | | | Procedures | [address] | [address] | | | | | MRI Lumbar | [place], | Phone: | | | | | Spine wo | [place] [address] | [phone] | | | | | Contrast | Phone: | Fax: | | | | | | [phone] | [phone] | | | | | | Fax: | | | | | | | [phone] | | +--------+--------+ + + + + [...] Lumbar | Mono, PA-C | [address] | | | | | radiculopath | [address] | [place], | | | | | y | [address] | [place] | | | | | Procedures | [address] | [address] | | | | | MRI Lumbar | [place], | Phone: | | | | | Spine wo | [place] [address] | [phone] | | | | | Contrast | Phone: | Fax: | | | | | | [phone] | [phone] | | | | | | Fax: | | | | | | | [phone] | | +--------+--------+ + + + + [...] Lumbar | Mono, PA-C | [address] | | | | | radiculopath | [address] | [place], | | | | | y | [address] | [place] | | | | | Procedures | [address] | [address] | | | | | MRI Lumbar | [place], | Phone: | | | | | Spine wo | [place] [address] | [phone] | | | | | Contrast | Phone: | Fax: | | | | | | [phone] | [phone] | | | | | | Fax: | | | | | | | [phone] | | +--------+--------+ + + + + Encounter Details +--------+ + + + + | Date | Type | Department | Care Team | Description | +--------+ + + + + | 01/22/ | Hospital | [facility] | Mono Diaz, | Lumbar radiculopathy | | 2018 | Encounter | MED CTR MRI [address] | PA-C [address] | | | | [address] [place], | [address] [place] | | | | | [place] [address] | [place] [address] | | | | | [phone] | [phone] | | | | | | | [...] | | 2017 | | | [address], [address] | | | | | | [address] [place], [place] | | | | | | [address] | | | | | | | | | | | | [place] | | +--------+ + + + + | 01/27/ | Appointment | Radiology | Barb Marte PA | | | 2017 | | | [address], [address] | | | | | | [address] [place], [place] | | | | | | [address] | | | | | | | | +--------+ + + + + | 02/11/ | Office | Physical Medicine | Mono Diaz, | | | 2017 | Visit | and Rehabilitation | AYAAN [address] | | | | | | [facility] [address] | | | | | | [place] [address] | | | | | | [phone] | | | | | | | [...] L4 nerve root along with the descending [id number] | | roots within the subarticular recesses.L5-S1: Moderate to severe disc space narrowing | | and generalized disc osteophytecomplex combine with dorsal ligamentous and facet | | hypertrophy to moderatelynarrow the foramina to a similar degree, with encroachment on | | the exiting [id number] roots along with the descending S1 nerve [...] 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 LEVOSCOLIOSIS AND MULTILEVEL FACET | [...]
--- OUTSIDE RECORDS SUMMARY | ~2018-01-26 | XMS | Encounter Summary ---
Demographics + + + | Address | [address] | | | [place] [address] | + + + | Home Phone | | + + + | Preferred Language | Unknown | + + + | Marital Status | | + + + | Baptist Affiliation | 1041 | + + + | Race | Unknown | + + + | Ethnic Group | Unknown | + + + Author + + + | Author | [facility] | | | and [place]ielana | + + + | Organization | [facility] | | | and [place] | + + + | Address | Unknown | + + + | Phone | Unavailable | + + + Support + + + + + | Name | Relationship | Address | Phone | + + + + + | Lucy Winchester | ECON | [place], [place] | | | | | [address] | | + + + + + | Kellen Briones | ECON | [place] | | | | | [address] | | + + + + + Care Team Providers + +------+ + | Care Filing Machine Operator Name | Role | Phone | + +------+ + | Barb Marte | PCP | | + +------+ + Encounter Details +--------+ + + + + | Date | Type | Department | Care Team | Description | +--------+ + + + + | 01/03/ | Hospital | [facility] | Barb Marte PA | Visit for screening | | 2018 | Encounter | MED CTR MAMMOGRAPHY | [address] | mammogram | | | | [address] | [address] [place] | | | | | [place], [place] | [address] | | | | | [address] | | | | | | [phone] | | | +--------+ + + + [...] | | | | | | [address] [place] | | | | | | [address] | | | | | | | | | | | | [place] | | +--------+ + + + + | 01/27/ | Appointment | Radiology | Barb Marte PA | | | 2017 | | | [address] | | | | | | [address] [place] | | | | | | [address] | | | | | | | | +--------+ + + + + | 02/11/ | Office | Physical Medicine | Mono Diaz, | | | 2017 | Visit | and Rehabilitation | A[place] [address] | | | | | | [address] | | | | | | [place] [address] | | | | | | [phone] | | | | | | | [...] + + + in this encounter Results RACHEL Tomosynthesis Screening Left [...]
--- OUTSIDE RECORDS SUMMARY | ~2018-01-26 | XMS | Clinical Summary ---
Demographics + + + | Address | [address] | | | [place] [address] | + + + | Home Phone | | + + + | Preferred Language | Unknown | + + + | Marital Status | | + + + | Scientology Affiliation | Unknown | + + + | Race | Unknown | + + + | Ethnic Group | Unknown | + + + Author + + + | Author | [facility] | + + + | Organization | [facility] | + + + | Address | Unknown | + + + | Phone | Unavailable | + + + Support + + + + + | Name | Relationship | Address | Phone | + + + + + | Lucy Winchester | ECON | [place], | | | | | [place] [address] | | + + + + + Care Team Providers + +------+ + | Care Resume Specialist Name | Role | Phone | + +------+ + | Medicine, Linneus | PP | Unavailable | | Family [...]
--- OUTSIDE RECORDS SUMMARY | ~2018-01-26 | XMS | Encounter Summary ---
Demographics + + + | Address | [address] | | | [place] [address] | + + + | Home Phone [...] [facility] | | | and [place] | + + + | Organization | [facility] | | | and [place] | + + + | Address | Unknown | + + + | Phone | Unavailable | + + + Support + + + + + | Name | Relationship | Address | Phone | + + + + + | Lucy Winchester | ECON | [place], [place] | | | | | [address] | | + + + + + | Kellen Briones | ECON | [place], [place] | | | | | [address] | | + + + + + Care Team Providers + +------+ + | Care Storm Sash Maker Name | Role | Phone | [...] + + | 11/05/ | Telephone | [place] | Irving Becerril, | Imaging Only | | 2017 | | NEUROSURGERY [address] | DO [address] | | | | | [address] | [address], | | | | | [place] | [place] [address] | | | | | [address] | [phone] | | | | | [phone] | | | +--------+ + + + [...] [place] | | | | | | [address] | | | | | | | | | | | | [place] | | +--------+ + + + + | 01/27/ | Appointment | Radiology | Barb Marte PA | | | 2017 | | | [address] | | | | | | [address] [place] | | | | | | [address] | | | | | | | | +--------+ + + + + | 02/11/ | Office | Physical Medicine | Mono Diaz, | | | 2018 | Visit | and Rehabilitation | AYAAN [address] | | | | | | [address] | | | | | | [place] [address] | | | | | | [phone] | | | | | | | | +--------+ + + + + as of this encounter Visit Diagnoses Not on filein this encounter"
--- OUTSIDE RECORDS SUMMARY | ~2018-01-26 | XMS | Clinical Summary ---
Demographics + + + | Address | [address] | | | [place] [address] | + + + | Home Phone [...] Author | [facility] | | | and [place] | + + + | Organization | [facility] | | | and [place] | + + + | Address | Unknown | + + + | Phone | Unavailable | + + + Support + + + + + | Name | Relationship | Address | Phone | + + + + + | Lucy Winchester | ECON | [place], [place] | | | | | [address] | | + + + + + | Kellen Briones | ECON | [place] | | | | | [address] | | + + + + + Care Team Providers + +------+ + | Care Property Worker Name | Role | Phone | [...] 03/30/2016 | + + + | H/O [place] (myocardial infarction) | 03/30/2016 | + + [...] | Spinal stenosis of lumbar region with csftbnaemcmda-R8-N5 level | 07/23/2012 | | moderately severe [...] | Hyperlipidemia | | + +---+ | KS (myocardial infarction) (HCC) | | + +---+ [...] with | | | | | | zvxbbanmkcaqf-P3-X4 | | | | | | level [...] + + + + Plan of Treatment +--------+ + + + + | Date | Type | Specialty | Care Team | Description | +--------+ + + + + | 01/27/ | Appointment | | Barb Marte PA | | | 2017 | | | [address] | | | | | | [address] [place] | | | | | | [address] | | | | | | | | | | | | [place] | | +--------+ + + + + | 01/27/ | Appointment | | Barb Marte PA | | | 2018 | | | [address] | | | | | | [address] [place] | | | | | | [address] | | | | | | | | +--------+ + + + + | 02/11/ | Office | | Mono Diaz, | | | 2017 | Visit | | NARESH-Tricia [address] | | | | | | [address] [facility] | | | | | | [place] [address] | | | | | | [phone] | | | | | | | | +--------+ + + + + + + + [...] + +--------+--------+ +--------+--------+--------+ | Cage Funmilayo Ptc [id number] - | Generi | Anteri | [employer] - | | 10/20/ | [id number] | | [id number]: Qty: 1 on | c | or: | MEDT | | 2023 | 4 / | | 03/30/2016 by Irving Becerril | | Spine | | | | /80BS | | A, DO | | Cervic | | | | | | | | al | | | | | + +--------+--------+ +--------+--------+--------+ | Cage Funmilayo Ptc [id number] - | Generi | Anteri | [employer] - | | 01/03/ | [id number] | | [id number]: Qty: 1 on | c | or: | MEDT | | 2022 | 4 / | | 03/30/2016 by Irving Becerril | | Spine | | | | /36AE | | A, DO | | Cervic | | | | | | | | al | | | | | + +--------+--------+ +--------+--------+--------+ | Cage Funmilayo Ptc [id number] - | Generi | Anteri | [employer] - | | 10/20/ | [id number] | | [id number]: Qty: 1 on | c | or: | MEDT | | 2023 | 4 / | | 03/30/2016 by Irving Becerril | | Spine | | | | /81BS | | A, DO | | Cervic | | | | | | | | al | | | | | + +--------+--------+ +--------+--------+--------+ | Cage Funmilayo Ptc [id number] - | Generi | Anteri | [employer] - | | 10/20/ | [id number] | | [id number]: Qty: 1 on | c | or: | MEDT | | 4 | 4 / | | 03/30/2016 by Irving Becerril | | Spine | | | | /80BS | | DO Chloe | | Cervic | | | | | | | | al | | | | | + +--------+--------+ +--------+--------+--------+ | Putty Bone Dbm Grftn 2.5cc - | Graft | Anteri | [employer] - | | 06/30/ | [id number] | | [id number]: Qty: 1 | | or: | MEDT | | 2019 | | | on 03/30/2016 by Jerrica, | | Spine | | | | /[id number] | | Irving Corona DO | | Cervic | | | | 6-016 | | | | al | | | | / | + +--------+--------+ +--------+--------+--------+ | Plate Ant Roff Cerv 75mm | Plate | Anteri | [employer] - | | | [id number] | | - [id number]: Qty: 1 | | or: | MEDT | | | 5 / | | on 03/30/2016 by Jerrica, | | Spine | | | | | | Irving Corona DO | | Cervic | | | | | | | | al | | | | | + +--------+--------+ +--------+--------+--------+ | Screw Slf-Drl V/A 4.0x16mm - | Screw | Anteri | SOF[facility]OR | | | [id number] | | [id number]: Qty: 5 on | | or: | DANEK - DIV | | | | | 03/30/2016 by Irving Becerril | | Spine | [employer] | | | | | A DO | | Cervic | - SFDK | | | | | | | al | | | | | + +--------+--------+ +--------+--------+--------+ | Screw Slf-Drl V/A 4.0x17mm - | Screw | Anteri | SOFAMOR | | | [id number] | | [id number]: Qty: 4 on | | or: | DANEK - DIV | | | | | 03/30/2016 by Irving Becerril | | Spine | [employer] | | | | | A, DO | | Cervic | - SFDK | | | | | | | al | | | | | + +--------+--------+ +--------+--------+--------+ | Screw Slf- V/A 4.5x15mm - | Screw | Anteri | [employer] - | | | [id number] | | [id number]: Qty: 1 on | | or: | [...] L4 nerve root along with the descending I3ustec | | roots within the subarticular recesses.L5-S1: Moderate to severe disc space narrowing | | and generalized disc osteophytecomplex combine with dorsal ligamentous and facet | | hypertrophy to moderatelynarrow the foramina to a similar degree, with encroachment on | | the exiting T0zxpfo roots along with the descending S1 nerve [...] DISEASE AND | | MILD ANTEROLISTHESIS AT I64-[id number] MILD STENOSIS.7. LEVOSCOLIOSIS AND MULTILEVEL FACET | [...] +--------+ +---------+ | MEDICARE | MEDICA | [id number] | Medica | [phone] | | | | RE | | re | [phone] | | | | PART A | | | | | | | AND B | | | | | + +--------+ +--------+ +---------+ | | CHAMPV | [id number] | Indemn | [phone] | | | | A | | [...] | Self | [birth year] | Work: | | | | [employer] | | 1940 | [phone] | [place] [address] | | | amanuel | | | [address] Home: | | | | | | | | | | | | | | [phone] | | | | | | | 8636 | | + +--------+ +--------+ + +
--- OUTSIDE RECORDS SUMMARY | ~2018-01-26 | XMS | Encounter Summary ---
Demographics + + + | Address | [address] | | | [place] [address] | + + + | Home Phone [...] + + | Author | [facility] | | | and [place]iel[place] | + + + | Organization | [facility] | | | and [place] | + + + | Address | Unknown | + + + | Phone | Unavailable | + + + Support + + + + + | Name | Relationship | Address | Phone | + + + + + | Lucy Winchester | ECON | [place], [place] | | | | | [address] | | + + + + + | Kellen Briones | ECON | [place], [place] | | | | | [address] | | + + + + + Care Team Providers + +------+ + | Care Tow Car Driver Name | Role | Phone | [...] Lumbar | AYAAN Villareal | [address] | | | | | radiculopath | [address] | [place], | | | | | y | [address] | [place] | | | | | Procedures | [address] | [address] | | | | | MRI Lumbar | [place], | Phone: | | | | | Spine wo | [place] [address] | [phone] | | | | | Contrast | Phone: | Fax: | | | | | | [phone] | [phone] | | | | | | Fax: | | | | | | | [phone] | | +--------+--------+ + + + + Reason for Visit + + + | Reason | Comments | + + + | Follow-up | Low Back Pain | + + + Encounter Details +--------+---------+ + + + | Date | Type | Department | Care Team | Description | +--------+---------+ + + + | 01/07/ | Office | [facility] | Mono Diaz, | Lumbar radiculopathy | | 2018 | Visit | PHYSIATRY [address] | PA-C [address] | (Primary Dx); | | | | [place], | [address] [place] | Spinal stenosis [place] | | | | [place] [address] | [place] [address] | lumbar region with | | | | [phone] | [phone] | mponyemezpvbs-D5-O0 | | | | | | level [...] press against a nerve. Date Last Reviewed: 03/06/201519999911-5911 [employer]. [address] [place] [address], [place] [address]. All righ ts reserved. This information is [...] and narcotic medications use; she currently uses [place], Flexeril and [place] bapentin. She is taking [...] no apparent deficits with short or terminal operator memory. She has appropriate fund of knowledge [...] PT (multiple sessions over the years) and healthcare representative. Unfortunately Clementine Winchester continues to have significant [...] [place] | | | | | | [address] | | | | | | | | | | | | [place] | | +--------+ + + + + | 01/27/ | Appointment | Radiology | Barb Marte PA | | | 2017 | | | [address] | | | | | | [address] [place], [place] | | | | | | [address] | | | | | | | | +--------+ + + + + | 02/11/ | Office | Physical Medicine | Mono Diaz, | | | 2017 | Visit | and Rehabilitation | AYAAN MCNALLY | | | | | | [facility] [address] | | | | | | [place] [address] | | | | | | [phone] | | | | | | | [...] L4 nerve root along with the descending N8teatl | | roots within the subarticular recesses.L5-S1: Moderate to severe disc space narrowing | | and generalized disc osteophytecomplex combine with dorsal ligamentous and facet | | hypertrophy to moderatelynarrow the foramina to a similar degree, with encroachment on | | the exiting K9dftht roots along with the descending S1 nerve [...] DISEASE AND | | MILD ANTEROLISTHESIS AT R44-I2CGGK MILD STENOSIS.7. LEVOSCOLIOSIS AND MULTILEVEL FACET | [...] | Spinal stenosis of lumbar region with bmeogmhuxedxg-Z5-V6 level moderately severe | + + | Spinal stenosis, lumbar region, without neurogenic claudication | + +
--- OUTSIDE RECORDS SUMMARY | ~2018-01-26 | XMS | Encounter Summary ---
Demographics + + + | Address | [address] | | | [place] [address] | + + + | Home Phone [...] | Author | [facility] | | | and [place]ielana | + + + | Organization | [facility] | | | and [place] | + + + | Address | Unknown | + + + | Phone | Unavailable | + + + Support + + + + + | Name | Relationship | Address | Phone | + + + + + | Lucy Winchester | ECON | [place], [place] | | | | | [address] | | + + + + + | Kellen Briones | ECON | [place] | | | | | [address] | | + + + + + Care Team Providers + +------+ + | Care Box Shook Patcher Name | Role | Phone | + +------+ + | Barb Marte | PCP | | + +------+ + Encounter Details +--------+ + + + + | Date | Type | Department | Care Team | Description | +--------+ + + + + | 01/03/ | Hospital | [facility] | Barb Marte PA | Visit for screening | | 2018 | Encounter | MED [facility] MAMMOGRAPHY | [address] | mammogram | | | | [address] | [address] [place] | | | | | [place], [place] | [address] | | | | | [address] | | | | | | [phone] | | | +--------+ + + + [...] [place] | | | | | | [address] | | | | | | | | | | | | [place] | | +--------+ + + + + | 01/27/ | Appointment | Radiology | Barb Marte PA | | | 2017 | | | [address] | | | | | | [address] [place] | | | | | | [address] | | | | | | | | +--------+ + + + + | 02/11/ | Office | Physical Medicine | Mono Diaz, | | | 2017 | Visit | and Rehabilitation | AYAAN MCNALLY | | | | | | [address] | | | | | | [place] [address] | | | | | | [phone] | | | | | | | [...]
--- OUTSIDE RECORDS SUMMARY | ~2018-01-26 | XMS | Encounter Summary ---
Demographics + + + | Address | [address] | | | [place] [address] | + + + | Home Phone [...] + | Author | [facility] | | | and [place]iel[place] | + + + | Organization | [facility] | | | and [place] | + + + | Address | Unknown | + + + | Phone | Unavailable | + + + Support + + + + + | Name | Relationship | Address | Phone | + + + + + | Lucy Winchester | ECON | [place], [place] | | | | | [address] | | + + + + + | Kellen Briones | ECON | [place], [place] | | | | | [address] | | + + + + + Care Team Providers + +------+ + | Care Wardrobe Image Consultant Name | Role | Phone | [...] W | | | | | | [place], | | | | | | [place] [address] | | | | | | [phone] | | | +--------+ + + + [...] [place] | | | | | | [address] | | | | | | | | | | | | [place] | | +--------+ + + + + | 01/27/ | Appointment | Radiology | Barb Marte PA | | | 2017 | | | [address] | | | | | | [address] [place], [place] | | | | | | [address] | | | | | | | | +--------+ + + + + | 02/11/ | Office | Physical Medicine | Mono Diaz, | | | 2017 | Visit | and Rehabilitation | AYAAN MCNALLY | | | | | | [facility] [address] | | | | | | [place] [address] | | | | | | [phone] | | | | | | | | +--------+ + + + + as of this encounter Visit Diagnoses Not on filein this encounter"
--- OUTSIDE RECORDS SUMMARY | ~2018-01-26 | XMS | Encounter Summary ---
Demographics + + + | Address | [address] | | | [place] [address] | + + + | Home Phone [...] | [facility] | | | and [place] | + + + | Organization | [facility] | | | and [place] | + + + | Address | Unknown | + + + | Phone | Unavailable | + + + Support + + + + + | Name | Relationship | Address | Phone | + + + + + | Lucy Winchester | ECON | [place], [place] | | | | | [address] | | + + + + + | Kellen Briones | ECON | [place], [place] | | | | | [address] | | + + + + + Care Team Providers + +------+ + | Care Dispatcher Tow Truck Name | Role | Phone | + [...] W | | | | | | [place], | | | | | | [place] [address] | | | | | | [phone] | | | +--------+ + + + [...] [place] | | | | | | [address] | | | | | | | | | | | | [place] | | +--------+ + + + + | 01/27/ | Appointment | Radiology | Barb Marte PA | | | 2017 | | | [address] | | | | | | [address] [place], [place] | | | | | | [address] | | | | | | | | +--------+ + + + + | 02/11/ | Office | Physical Medicine | Mono Diaz, | | | 2017 | Visit | and Rehabilitation | AYAAN MCNALLY | | | | | | [facility] [address] | | | | | | [place] [address] | | | | | | [phone] | | | | | | | | +--------+ + + + + as of this encounter Visit Diagnoses Not on filein this encounter"
--- OUTSIDE RECORDS SUMMARY | ~2018-01-26 | XMS | Encounter Summary ---
Demographics + + + | Address | [address] | | | [place] [address] | + + + | Home Phone [...] [facility] | | | and [place] | + + + | Organization | [facility] | | | and [place] | + + + | Address | Unknown | + + + | Phone | Unavailable | + + + Support + + + + + | Name | Relationship | Address | Phone | + + + + + | Lucy Winchester | ECON | [place], [place] | | | | | [address] | | + + + + + | Kellen Briones | ECON | [place], [place] | | | | | [address] | | + + + + + Care Team Providers + +------+ + | Care Forestry Aid Name | Role | Phone | + [...] + + | 11/05/ | Telephone | [facility] [place] | Irving Becerril, | Imaging Only | | 2017 | | NEUROSURGERY [address] | DO [address] | | | | | [address] | [address], | | | | | [place] | [place] [address] | | | | | [address] | [phone] | | | | | [phone] | | | +--------+ + + + [...] [place] | | | | | | [address] | | | | | | | | | | | | [place] | | +--------+ + + + + | 01/27/ | Appointment | Radiology | Barb Marte PA | | | 2017 | | | [address] | | | | | | [address] [place] | | | | | | [address] | | | | | | | | +--------+ + + + + | 02/11/ | Office | Physical Medicine | Mono Diaz, | | | 2018 | Visit | and Rehabilitation | AYAAN [address] | | | | | | [address] | | | | | | [place] [address] | | | | | | [phone] | | | | | | | | +--------+ + + + + as of this encounter Visit Diagnoses Not on filein this encounter"
--- OUTSIDE RECORDS SUMMARY | ~2018-01-26 | XMS | Encounter Summary ---
Demographics + + + | Address | [address] | | | [place] [address] | + + + | Home Phone [...] | Author | [facility] | | | and [place] | + + + | Organization | [facility] | | | and [place] | + + + | Address | Unknown | + + + | Phone | Unavailable | + + + Support + + + + + | Name | Relationship | Address | Phone | + + + + + | Lucy Winchester | ECON | [place], [place] | | | | | [address] | | + + + + + | Kellen Briones | ECON | [place], [place] | | | | | [address] | | + + + + + Care Team Providers + +------+ + | Care Gate Person Name | Role | Phone | [...] + + | 11/05/ | Telephone | [facility] [place] | Irving Becerril, | Imaging Only | | 2017 | | NEUROSURGERY [address] | DO [address] | | | | | [address] | [address], | | | | | [place] | [place] [address] | | | | | [address] | [phone] | | | | | [phone] | | | +--------+ + + + [...] [place] | | | | | | [address] | | | | | | | | | | | | [place] | | +--------+ + + + + | 01/27/ | Appointment | Radiology | Barb Marte PA | | | 2017 | | | [address] | | | | | | [address] [place] | | | | | | [address] | | | | | | | | +--------+ + + + + | 02/11/ | Office | Physical Medicine | Mono Diaz, | | | 2018 | Visit | and Rehabilitation | AYAAN [address] | | | | | | [address] | | | | | | [place] [address] | | | | | | [phone] | | | | | | | | +--------+ + + + + as of this encounter Visit Diagnoses Not on filein this encounter"
--- OUTSIDE RECORDS SUMMARY | ~2018-01-26 | XMS | Encounter Summary ---
Demographics + + + | Address | [address] | | | [place] [address] | + + + | Home Phone [...] + | Author | [facility] | | | and [place]iel[place] | + + + | Organization | [facility] | | | and [place] | + + + | Address | Unknown | + + + | Phone | Unavailable | + + + Support + + + + + | Name | Relationship | Address | Phone | + + + + + | Lucy Winchester | ECON | [place], [place] | | | | | [address] | | + + + + + | Kellen Briones | ECON | [place] | | | | | [address] | | + + + + + Care Team Providers + +------+ + | Care Air Sampling And Monitoring Name | Role | Phone | + [...] | (Primary Dx) | | | | [place], [place] | [place] [address] | | | | | [address] | [phone] | | | | | [phone] | | | +--------+ + + + [...] [place] | | | | | | [address] | | | | | | | | | | | | [place] | | +--------+ + + + + | 01/27/ | Appointment | Radiology | Barb Marte PA | | | 2017 | | | [address] | | | | | | [address] [place], [place] | | | | | | [address] | | | | | | | | +--------+ + + + + | 02/11/ | Office | Physical Medicine | Mono Diaz, | | | 2017 | Visit | and Rehabilitation | AYAAN [address] | | | | | | [address] | | | | | | [place] [address] | | | | | | [phone] | | | | | | | [...]
--- OUTSIDE RECORDS SUMMARY | ~2018-01-26 | XMS | Clinical Summary ---
Demographics + + + | Address | [address] | | | [place] [address] | + + + | Home Phone [...] | [facility] | | | and [place]tonielana | + + + | Organization | [facility] | | | and [place] | + + + | Address | Unknown | + + + | Phone | Unavailable | + + + Support + + + + + | Name | Relationship | Address | Phone | + + + + + | Lucy Winchester | ECON | [place], [place] | | | | | [address] | | + + + + + | Kellen Briones | ECON | [place] | | | | | [address] | | + + + + + Care Team Providers + +------+ + | Care Medical Billing Manager Name | Role | Phone | [...] 03/30/2016 | + + + | H/O [place] (myocardial infarction) | 03/30/2016 | + + [...] | Spinal stenosis of lumbar region with euiflpirofomv-H2-R5 level | 07/23/2012 | | moderately severe [...] | Hyperlipidemia | | + +---+ | [place] (myocardial infarction) (HCC) | | + +---+ [...] with | | | | | | sekcbywziydcx-J6-Z7 | | | | | | level [...] [place] | | | | | | [address] | | | | | | | | | | | | [place] | | +--------+ + + + + | 01/27/ | Appointment | | Barb Marte PA | | | 2018 | | | [address] | | | | | | [address] [place] | | | | | | [address] | | | | | | | | +--------+ + + + + | 02/11/ | Office | | Mono Diaz, | | | 2017 | Visit | | NARESH-Tricia [address] | | | | | | [address] [facility] | | | | | | [place] [address] | | | | | | [phone] | | | | | | | [...] + +--------+--------+ +--------+--------+--------+ | Cage Funmilayo Ptc [id number] - | Generi | Anteri | [employer] - | | 10/20/ | [id number] | | [id number]: Qty: 1 on | c | or: | MEDT | | 2023 | 4 / | | 03/30/2016 by Irving Becerril | | Spine | | | | /80BS | | A, DO | | Cervic | | | | | | | | al | | | | | + +--------+--------+ +--------+--------+--------+ | Cage Funmilayo Ptc [id number] - | Generi | Anteri | [employer] - | | 01/03/ | [id number] | | [id number]: Qty: 1 on | c | or: | MEDT | | 2022 | 4 / | | 03/30/2016 by Irving Becerril | | Spine | | | | /36AE | | A, DO | | Cervic | | | | | | | | al | | | | | + +--------+--------+ +--------+--------+--------+ | Cage Funmilayo Ptc [id number] - | Generi | Anteri | [employer] - | | 10/20/ | [id number] | | [id number]: Qty: 1 on | c | or: | MEDT | | 2023 | 4 / | | 03/30/2016 by Irving Becerril | | Spine | | | | /81BS | | A, DO | | Cervic | | | | | | | | al | | | | | + +--------+--------+ +--------+--------+--------+ | Cage Funmilayo Ptc [id number] - | Generi | Anteri | [employer] - | | 10/20/ | [id number] | | [id number]: Qty: 1 on | c | or: [...] | [employer] - | | 06/30/ | [id number] | | [id number]: Qty: 1 | | or: | MEDT | | 2019 | | | on 03/30/2016 by Jerrica, | | Spine | | | | /[id number] | | Irving Corona DO | | Cervic | | | | 6-[address] | | | | al | | | | / | + +--------+--------+ +--------+--------+--------+ | Plate Ant [place] Cerv 75mm | Plate | Anteri | [employer] - | | | [id number] | | - [id number]: Qty: 1 | | or: | MEDT [...] | Anteri | SOFAMOR | | | [id number] | | [id number]: Qty: 5 on | | or: | [...] | Anteri | SOFAMOR | | | [id number] | | [id number]: Qty: 4 on | | or: | [...] Anteri | [employer] - | | | [id number] | | [id number]: Qty: 1 on | | or: | [...] L4 nerve root along with the descending U3ucrhx | | roots within the subarticular recesses.L5-S1: Moderate to severe disc space narrowing | | and generalized disc osteophytecomplex combine with dorsal ligamentous and facet | | hypertrophy to moderatelynarrow the foramina to a similar degree, with encroachment on | | the exiting T6dhlzb roots along with the descending S1 nerve [...] DISEASE AND | | MILD ANTEROLISTHESIS AT [id number] MILD STENOSIS.7. LEVOSCOLIOSIS AND MULTILEVEL FACET | [...] +--------+ +---------+ | MEDICARE | MEDICA | [id number] | Medica | [phone] | | | RE | | re | [phone] | | | | PART A | | | | | | | AND B | | | | | + +--------+ +--------+ +---------+ | | CHAMPV | [id number] | Indemn | [phone] | | | | A | | [...] | ulisses/John Paul | | 1940 | [phone] | [place] [id number] | | | amanuel | | | [phone]: | | | | | | | | | | | | | | [phone] | | | | | | | [phone] | | + +--------+ +--------+ + +
--- OUTSIDE RECORDS SUMMARY | ~2018-01-26 | XMS | Encounter Summary ---
Demographics + + + | Address | [address] | | | [place] [address] | + + + | Home Phone [...] + + | Author | [facility] | | | and Ottonielana | + + + | Organization | [facility] | | | and Ottonielana | + + + | Address | Unknown | + + + | Phone | Unavailable | + + + Support + + + + + | Name | Relationship | Address | Phone | + + + + + | Lucy Winchester | ECON | [place], [place] | | | | | [address] | | + + + + + | Kellen Briones | ECON | [place] | | | | | [address] | | + + + + + Care Team Providers + +------+ + | Care Posting Clerk Name | Role | Phone | [...] + + | 01/23/ | Telephone | [facility] [place] | Mono Diaz, | Results, Imaging | | 2017 | | PHYSIATRY [address] | PA-C [address] | | | | | [place], | [address] [place] | | | | | [place] [address] | [place] [address] | | | | | [phone] | [phone] | | | | | | | [...] [place] | | | | | | [address] | | | | | | | | | | | | [place] | | +--------+ + + + + | 01/27/ | Appointment | Radiology | Barb Marte PA | | | 2017 | | | [address] | | | | | | [address] [place] | | | | | | [address] | | | | | | | | +--------+ + + + + | 02/11/ | Office | Physical Medicine | Mono Diaz, | | | 2017 | Visit | and Rehabilitation | AYAAN [address] | | | | | | [place] | | | | | | [place] [address] | | | | | | [phone] | | | | | | | | +--------+ + + + + as of this encounter Visit Diagnoses Not on filein this encounter"
--- OUTSIDE RECORDS SUMMARY | ~2018-01-26 | XMS | Encounter Summary ---
Demographics + + + | Address | [address] | | | [place] [address] | + + + | Home Phone [...] | Author | [facility] | | | and Ottonielana | + + + | Organization | [facility] [...] [place], [place] | | | | | [address] | | + + + + + | Kellen Briones | ECON | [place] | | | | | [address] | | + + + + + Care Team Providers + +------+ + | Care Tape Controlled Machine Stitcher Name | Role | Phone | + +------+ + | Barb Marte | PCP | | + +------+ + Encounter Details +--------+ + + + + | Date | Type | Department | Care Team | Description | +--------+ + + + + | 11/05/ | Hospital | [facility] | Irving Becerril, | Status post cervical | | 2018 | Encounter | MED CTR XRAY [address] | DO [address] | spinal fusion | | | | [place] | [address] [place], | | | | | [place] [address] | [place] [address] | | | | | [phone] | [phone] | | | | | | | [...] [place] | | | | | | [address] | | | | | | | | | | | | [place] | | +--------+ + + + + | 01/27/ | Appointment | Radiology | Barb Marte PA | | | 2017 | | | [address] | | | | | | [address] [place], [place] | | | | | | [address] | | | | | | | | +--------+ + + + + | 02/11/ | Office | Physical Medicine | Mono Diaz, | | | 2017 | Visit | and Rehabilitation | A[facility] | | | | | | [address] [place] | | | | | | [place] [address] | | | | | | [phone] | | | | | | | [...]
--- OUTSIDE RECORDS SUMMARY | ~2018-01-26 | XMS | Encounter Summary ---
Demographics + + + | Address | [address] | | | [place] [address] | + + + | Home Phone [...] Author | [facility] | | | and Ottonielana | + + + | Organization | [facility] | | | and [place]ielana | + + + | Address | Unknown | + + + | Phone | Unavailable | + + + Support + + + + + | Name | Relationship | Address | Phone | + + + + + | Lucy Winchester | ECON | [place], [place] | | | | | [address] | | + + + + + | Kellen Briones | ECON | [place] | | | | | [address] | | + + + + + Care Team Providers + +------+ + | Care Electronics Engineering Technician Name | Role | Phone | [...] [place] | | | | | [phone] | [place] [address] | | +--------+ + + + + [...] [place] | | | | | | [address] | | | | | | | | | | | | [place] | | +--------+ + + + + | 01/27/ | Appointment | Radiology | Barb Marte PA | | | 2017 | | | [address] | | | | | | [address] [place], [place] | | | | | | [address] | | | | | | | | +--------+ + + + + | 02/11/ | Office | Physical Medicine | Mono Diaz, | | | 2017 | Visit | and Rehabilitation | [facility] [address] | | | | | | [address] [place] | | | | | | [place] [address] | | | | | | [phone] | | | | | | | [...]
--- OUTSIDE RECORDS SUMMARY | ~2018-01-26 | XMS | Encounter Summary ---
Demographics + + + | Address | [address] | | | [place] [address] | + + + | Home Phone [...] + | Author | [facility] | | | and Ottonielana | + + + | Organization | [facility] | [...] [place], [place] | | | | | [address] | | + + + + + | Kellen Briones | ECON | [place], [place] | | | | | [address] | | + + + + + Care Team Providers + +------+ + | Care Manager Validation Name | Role | Phone | + [...] + + | 01/23/ | Telephone | [facility] | Mono Diaz, | Medication Question | | 2017 | | PHYSIATRY [address] | PA-C [address] | | | | | [place], | [address] [place] | | | | | [place] [address] | [place] [address] | | | | | [phone] | | | | | | | [...] [place] | | | | | | [address] | | | | | | | | | | | | [place] | | +--------+ + + + + | 01/27/ | Appointment | Radiology | Barb Marte PA | | | 2017 | | | [address] | | | | | | [address] [place] | | | | | | [address] | | | | | | | | +--------+ + + + + | 02/11/ | Office | Physical Medicine | Mono Diaz, | | | 2017 | Visit | and Rehabilitation | [facility] [address] | | | | | | [address] [place] | | | | | | [place] [address] | | | | | | [phone] | | | | | | | | +--------+ + + + + as of this encounter Visit Diagnoses Not on filein this encounter"
--- OUTSIDE RECORDS SUMMARY | ~2018-01-26 | XMS | Clinical Summary ---
Demographics + + + | Address | [address] | | | [place] [address] | + + + | Home Phone [...] Author | [facility] | | | and Ottonielana | + + + | Organization | [facility] | | | and Ottonielana | + + + | Address | Unknown | + + + | Phone | Unavailable | + + + Support + + + + + | Name | Relationship | Address | Phone | + + + + + | Lucy Winchester | ECON | [place], [place] | | | | | [address] | | + + + + + | Kellen Briones | ECON | [place] | | | | | [address] | | + + + + + Care Team Providers + +------+ + | Care Extractor Filler Name | Role | Phone | [...] 03/30/2016 | + + + | H/O VT (myocardial infarction) | 03/30/2016 | + + [...] | Spinal stenosis of lumbar region with xneuchwbyjuob-V4-J7 level | 07/23/2012 | | moderately severe [...] | Hyperlipidemia | | + +---+ | VT (myocardial infarction) (HCC) | | + +---+ [...] with | | | | | | sluxtpdfkgrqu-H0-V5 | | | | | | level [...] [place] | | | | | | [address] | | | | | | | | | | | | [place] | | +--------+ + + + + | 01/27/ | Appointment | | Barb Marte PA | | | 2018 | | | [address] | | | | | | [address] [place] | | | | | | [address] | | | | | | | | +--------+ + + + + | 02/11/ | Office | | Mono Diaz, | | | 2017 | Visit | | NARESH-Tricia [address] | | | | | | [address] [facility] | | | | | | [place] [address] | | | | | | [phone] | | | | | | | [...] + +--------+--------+ +--------+--------+--------+ | Cage Funmilayo Ptc [id number] - | Generi | Anteri | [employer] - | | 10/20/ | [id number] | | [id number]: Qty: 1 on | c | or: | MEDT | | 2023 | 4 / | | 03/30/2016 by Irving Becerril | | Spine | | | | /[id number] | | A, DO | | Cervic | | | | | | | | al | | | | | + +--------+--------+ +--------+--------+--------+ | Cage Funmilayo Ptc [id number] - | Generi | Anteri | [employer] - | | 01/03/ | [id number] | | [id number]: Qty: 1 on | c | or: | MEDT | | 2022 | 4 / | | 03/30/2016 by Irving Becerril | | Spine | | | | /[id number] | | A, DO | | Cervic | | | | | | | | al | | | | | + +--------+--------+ +--------+--------+--------+ | Cage Funmilayo Ptc [id number] - | Generi | Anteri | [employer] - | | 10/20/ | [id number] | | [id number]: Qty: 1 on | c | or: | MEDT | | 2023 | 4 / | | 03/30/2016 by Irving Becerril | | Spine | | | | /[id number] | | A, DO | | Cervic | | | | | | | | al | | | | | + +--------+--------+ +--------+--------+--------+ | Cage Funmilayo Ptc [id number] - | Generi | Anteri | [employer] - | | 10/20/ | [id number] | | [id number]: Qty: 1 on | c | or: [...] | [employer] - | | 06/30/ | [id number] | | [id number]: Qty: 1 | | or: | MEDT | | 2019 | | | on 03/30/2016 by Jerrica, | | Spine | | | | /[id number] | | Irving Corona DO | | Cervic | | | | 6-016 | | | | al | | | | / | + +--------+--------+ +--------+--------+--------+ | Plate [place] Cerv 75mm | Plate | Anteri | [employer] - | | | [id number] | | - [id number]: Qty: 1 | | or: | MEDT [...] | Anteri | SOF[employer]OR | | | [id number] | | [id number]: Qty: 5 on | | or: | [...] | Anteri | SO[employer]OR | | | [id number] | | [id number]: Qty: 4 on | | or: | [...] Anteri | [employer] - | | | [id number] | | [id number]: Qty: 1 on | | or: | [...] L4 nerve root along with the descending D8dmtib | | roots within the subarticular recesses.L5-S1: Moderate to severe disc space narrowing | | and generalized disc osteophytecomplex combine with dorsal ligamentous and facet | | hypertrophy to moderatelynarrow the foramina to a similar degree, with encroachment on | | the exiting X1doaec roots along with the descending S1 nerve [...] DISEASE AND | | MILD ANTEROLISTHESIS AT L04-Z5YFQF MILD STENOSIS.7. LEVOSCOLIOSIS AND MULTILEVEL FACET | [...] +--------+ +---------+ | MEDICARE | MEDICA | [id number] | Medica | [phone] | | | | RE | | re | [phone] | | | | PART A | | | | | | | AND B | | | | | + +--------+ +--------+ +---------+ | | CHAMPV | [id number] | Indemn | [phone] | | | | A | | [...] | ulisses/John Paul | | 1940 | [phone] | [place] [address] | | | amanuel | | | [address]: | | | | | | | | | | | | | | [phone] | | | | | | | 8636 | | + +--------+ +--------+ + +
--- OUTSIDE RECORDS SUMMARY | ~2018-01-26 | XMS | Encounter Summary ---
Demographics + + + | Address | [address] | | | [place] [address] | + + + | Home Phone [...] Author | [facility] | | | and Ottonielana | + + + | Organization | [facility] | | | and Ottonielana | + + + | Address | Unknown | + + + | Phone | Unavailable | + + + Support + + + + + | Name | Relationship | Address | Phone | + + + + + | Lucy Winchester | ECON | [place], [place] | | | | | [address] | | + + + + + | Kellen Briones | ECON | [place] | | | | | [address] | | + + + + + Care Team Providers + +------+ + | Care Executive Assistant To General Counsel Name | Role | Phone | + +------+ + | Barb Marte | PCP | | + +------+ + Encounter Details +--------+ + + + + | Date | Type | Department | Care Team | Description | +--------+ + + + + | 11/05/ | Hospital | [facility] | Irving Becerril, | Status post cervical | | 2018 | Encounter | MED CTR XRAY [address] | DO [address] | spinal fusion | | | | [place] | [address] [place], | | | | | [place] [address] | [place] [address] | | | | | [phone] | [phone] | | | | | | | [...] [place] | | | | | | [address] | | | | | | | | | | | | [place] | | +--------+ + + + + | 01/27/ | Appointment | Radiology | Barb Marte PA | | | 2017 | | | [address] | | | | | | [address] [place], [place] | | | | | | [address] | | | | | | | | +--------+ + + + + | 02/11/ | Office | Physical Medicine | Mono Diaz, | | | 2017 | Visit | and Rehabilitation | [facility] | | | | | | [address] [place] | | | | | | [place] [address] | | | | | | [phone] | | | | | | | [...]
--- OUTSIDE RECORDS SUMMARY | ~2018-01-26 | XMS | Encounter Summary ---
Demographics + + + | Address | [address] | | | [place] [address] | + + + | Home Phone [...] Author | [facility] | | | and Ottonielana | + + + | Organization | [facility] | | | and Ottonielana | + + + | Address | Unknown | + + + | Phone | Unavailable | + + + Support + + + + + | Name | Relationship | Address | Phone | + + + + + | Lucy Winchester | ECON | [place], [place] | | | | | [address] | | + + + + + | Kellen Briones | ECON | [place] | | | | | [address] | | + + + + + Care Team Providers + +------+ + | Care Buyer Tobacco Head Name | Role | Phone | + [...] [place] | | | | | [phone] | [place] [address] | | +--------+ + + + + [...] [place] | | | | | | [address] | | | | | | | | | | | | [place] | | +--------+ + + + + | 01/27/ | Appointment | Radiology | Barb Marte PA | | | 2017 | | | [address] | | | | | | [address] [place], [place] | | | | | | [address] | | | | | | | | +--------+ + + + + | 02/11/ | Office | Physical Medicine | Mono Diaz, | | | 2017 | Visit | and Rehabilitation | [facility] [address] | | | | | | [address] [place] | | | | | | [place] [address] | | | | | | [phone] | | | | | | | [...]
--- OUTSIDE RECORDS SUMMARY | ~2018-01-26 | XMS | Encounter Summary ---
Demographics + + + | Address | [address] | | | [place] [address] | + + + | Home Phone [...] | Author | [facility] | | | and Ottonielana | + + + | Organization | [facility] | | | and [place]tonielana | + + + | Address | Unknown | + + + | Phone | Unavailable | + + + Support + + + + + | Name | Relationship | Address | Phone | + + + + + | Lucy Winchester | ECON | [place], [place] | | | | | [address] | | + + + + + | Kellen Briones | ECON | [place] | | | | | [address] | | + + + + + Care Team Providers + +------+ + | Care C4 Planner Name | Role | Phone | [...] [address] | | | | | [address] [place] | [address] [place] | | | | | [place] [address] | [address] | | | | | [phone] | | | +--------+ + + + [...] [place] | | | | | | [address] | | | | | | | | | | | | [place] | | +--------+ + + + + | 01/27/ | Appointment | Radiology | Barb Marte PA | | | 2017 | | | [address] | | | | | | [address] [place], [place] | | | | | | [address] | | | | | | | | +--------+ + + + + | 02/11/ | Office | Physical Medicine | Mono Diaz, | | | 2017 | Visit | and Rehabilitation | AYAAN [address] | | | | | | [facility] [address] [place] | | | | | | [place] [address] | | | | | | [phone] | | | | | | | [...]
--- OUTSIDE RECORDS SUMMARY | ~2018-01-26 | XMS | Clinical Summary ---
Demographics + + + | Address | [address] | | | [place] [address] | + + + | Home Phone | | + + + | Preferred Language | Unknown | + + + | Marital Status | Unknown | + + + | Mosque Affiliation | Unknown | + + + [...] Team Providers + +------+ + | Care Receptionist Clerk Name | Role | Phone | + +------+ + PP | Unavailable | + +------+ + Source Comments HOLLY is fully live on both [facility] and [facility] InPatient.[facility] Allergies Not on File Current Medications Not [...] | | | | (FLU SHOT) | 8 | | | + + + + + Results Not on filefrom Last 3 Months"
--- OUTSIDE RECORDS SUMMARY | ~2018-01-26 | XMS | Encounter Summary ---
Demographics + + + | Address | [address] | | | [place] [address] | + + + | Home Phone [...] + | Author | [facility] | | | and Ottonielana | + + + | Organization | [facility] | | | and [place]tonielana | + + + | Address | Unknown | + + + | Phone | Unavailable | + + + Support + + + + + | Name | Relationship | Address | Phone | + + + + + | Lucy Winchester | ECON | [place], [place] | | | | | [address] | | + + + + + | Kellen Briones | ECON | [place] | | | | | [address] | | + + + + + Care Team Providers + +------+ + | Care Fuels Engineer Name | Role | Phone | + +------+ + | Barb Marte | PCP | | + +------+ + Encounter Details +--------+ + + + + | Date | Type | Department | Care Team | Description | +--------+ + + + + | 12/26/ | Ancillary | [facility] | Barb Marte PA | Visit for screening | | 2018 | Orders | MED CTR XRAY [address] | [address] | mammogram | | | | [place] | [address] [place], [place] | | | | | [place] [address] | [address] | | | | | [phone] | | | +--------+ + + + [...] [place] | | | | | | [address] | | | | | | | | | | | | [place] | | +--------+ + + + + | 01/27/ | Appointment | Radiology | Barb Marte PA | | | 2017 | | | [address] | | | | | | [address] [place], [place] | | | | | | [address] | | | | | | | | +--------+ + + + + | 02/11/ | Office | Physical Medicine | Mono Diaz, | | | 2017 | Visit | and Rehabilitation | AYAAN [address] | | | | | | [address] [place] | | | | | | [place] [address] | | | | | | [phone] | | | | | | | [...]
--- OUTSIDE RECORDS SUMMARY | ~2018-01-26 | XMS | Encounter Summary ---
Demographics + + + | Address | [address] | | | [place] [address] | + + + | Home Phone [...] | Author | [facility] | | | and Ottonielana | + + + | Organization | [facility] | | | and [place]tonielana | + + + | Address | Unknown | + + + | Phone | Unavailable | + + + Support + + + + + | Name | Relationship | Address | Phone | + + + + + | Lucy Winchester | ECON | [place], [place] | | | | | [address] | | + + + + + | Kellen Briones | ECON | [place] | | | | | [address] | | + + + + + Care Team Providers + +------+ + | Care Senior Electrical Controls Engineer Name | Role | Phone | [...] | (Primary Dx) | | | | [place], [place] | [place] [address] | | | | | [address] | [phone] | | | | | [phone] | | | +--------+ + + + [...] [place] | | | | | | [address] | | | | | | | | | | | | [place] | | +--------+ + + + + | 01/27/ | Appointment | Radiology | Barb Marte PA | | | 2017 | | | [address] | | | | | | [address] [place], [place] | | | | | | [address] | | | | | | | | +--------+ + + + + | 02/11/ | Office | Physical Medicine | Mono Diaz, | | | 2017 | Visit | and Rehabilitation | AYAAN [address] | | | | | | [address] [place] | | | | | | [place] [address] | | | | | | [phone] | | | | | | | [...]
--- OUTSIDE RECORDS SUMMARY | ~2018-01-26 | XMS | Encounter Summary ---
Demographics + + + | Address | [address] | | | [place] [address] | + + + | Home Phone [...] | Author | [facility] | | | and Ottonielana | + + + | Organization | [facility] | | | and [place]tonielana | + + + | Address | Unknown | + + + | Phone | Unavailable | + + + Support + + + + + | Name | Relationship | Address | Phone | + + + + + | Lucy Winchester | ECON | [place], [place] | | | | | [address] | | + + + + + | Kellen Briones | ECON | [place] | | | | | [address] | | + + + + + Care Team Providers + +------+ + | Care Noodle Press Operator Name | Role | Phone [...] + + | 01/23/ | Telephone | [facility] [place] | Mono Diaz, | Results, Imaging | | 2017 | | PHYSIATRY [address] | PA-C [address] | | | | | [place], | [address] [place] | | | | | [place] [address] | [place] [address] | | | | | [phone] | [phone] | | | | | | | [...] [place] | | | | | | [address] | | | | | | | | | | | | [place] | | +--------+ + + + + | 01/27/ | Appointment | Radiology | Barb Marte PA | | | 2017 | | | [address] | | | | | | [address] [place] | | | | | | [address] | | | | | | | | +--------+ + + + + | 02/11/ | Office | Physical Medicine | Mono Diaz, | | | 2017 | Visit | and Rehabilitation | A[facility] [address] | | | | | | [place] | | | | | | [place] [address] | | | | | | [phone] | | | | | | | | +--------+ + + + + as of this encounter Visit Diagnoses Not on filein this encounter"
--- OUTSIDE RECORDS SUMMARY | ~2018-01-26 | XMS | Clinical Summary ---
Demographics + + + | Address | [address] | | | [place] [address] | + + + | Home Phone | | + + + | Preferred Language | Unknown | + + + | Marital Status | | + + + | Orthodox Affiliation | Unknown | + + + | Race | Unknown | + + + | Ethnic Group | Unknown | + + + Author + + + | Author | [facility] | + + + | Organization | [facility] | + + + | Address | Unknown | + + + | Phone | Unavailable | + + + Support + + + + + | Name | Relationship | Address | Phone | + + + + + | Lucy Winchester | ECON | [place], | | | | | [place] [address] | | + + + + + Care Team Providers + +------+ + | Care Sales And In Home Delivery Specialist Name | Role | Phone | + +------+ + | Medicine, [place] | PP | Unavailable | | Family [...]
--- OUTSIDE RECORDS SUMMARY | ~2018-01-26 | XMS | Encounter Summary ---
Demographics + + + | Address | [address] | | | [place] [address] | + + + | Home Phone [...] Author | [facility] | | | and Ottonielana | + + + | Organization | [facility] | | | and Ottonielana | + + + | Address | Unknown | + + + | Phone | Unavailable | + + + Support + + + + + | Name | Relationship | Address | Phone | + + + + + | Lucy Winchester | ECON | [place], [place] | | | | | [address] | | + + + + + | Kellen Briones | ECON | [place] | | | | | [address] | | + + + + + Care Team Providers + +------+ + | Care Engine Service Repairer Name | Role | Phone | [...] + + | 01/23/ | Telephone | [facility] [place] | Mono Diaz, | Results, Imaging | | 2017 | | [address]YSIATRY [address] | PA-C [address] | | | | | [place], | [address] [place] | | | | | [place] [address] | [place] [address] | | | | | [phone] | [phone] | | | | | | | [...] | 01/27/ | Appointment | Radiology | Babr Marte PA | | | 2017 | | | [address] | | | | | | [address] [place] | | | | | | [address] | | | | | | | | | | | | [place] | | +--------+ + + + + | 01/27/ | Appointment | Radiology | Barb Marte PA | | | 2017 | | | [address] | | | | | | [address] [place] | | | | | | [address] | | | | | | | | +--------+ + + + + | 02/11/ | Office | Physical Medicine | Mono Diaz, | | | 2017 | Visit | and Rehabilitation | [address] [address] | | | | | | [place] | | | | | | [place] [address] | | | | | | [phone] | | | | | | | | +--------+ + + + + as of this encounter Visit Diagnoses Not on filein this encounter"
--- OUTSIDE RECORDS SUMMARY | ~2018-01-26 | XMS | Encounter Summary ---
Demographics + + + | Address | [address] | | | [place] [address] | + + + | Home Phone [...] Author | [facility] | | | and Ottonielana | + + + | Organization | [facility] | | | and Ottonielana | + + + | Address | Unknown | + + + | Phone | Unavailable | + + + Support + + + + + | Name | Relationship | Address | Phone | + + + + + | Lucy Winchester | ECON | [place], [place] | | | | | [address] | | + + + + + | Kellen Briones | ECON | [place], [place] | | | | | [address] | | + + + + + Care Team Providers + +------+ + | Care Health Care Manager Name | Role | Phone | [...] Lumbar | AYAAN Villareal | [address] | | | | | radiculopath | [address] | [place], | | | | | y | [address] | [place] | | | | | Procedures | [address] | [address] | | | | | MRI Lumbar | [place], | Phone: | | | | | Spine wo | [place] [address] | [phone] | | | | | Contrast | Phone: | Fax: | | | | | | [phone] | [phone] | | | | | | Fax: | | | | | | | [phone] | | +--------+--------+ + + + + [...] Lumbar | Mono, PA-C | [address] | | | | | radiculopath | [address] | [place], | | | | | y | [address] | [place] | | | | | Procedures | [address] | [address] | | | | | MRI Lumbar | [place], | Phone: | | | | | Spine wo | [place] [address] | [phone] | | | | | Contrast | Phone: | Fax: | | | | | | [phone] | [phone] | | | | | | Fax: | | | | | | | [phone] | | +--------+--------+ + + + + [...] Lumbar | Mono, PA-C | [address] | | | | | radiculopath | [address] | [place], | | | | | y | [address] | [place] | | | | | Procedures | [address] | [address] | | | | | MRI Lumbar | [place], | Phone: | | | | | Spine wo | [place] [address] | [phone] | | | | | Contrast | Phone: | Fax: | | | | | | [phone] | [phone] | | | | | | Fax: | | | | | | | [phone] | | +--------+--------+ + + + + Encounter Details +--------+ + + + + | Date | Type | Department | Care Team | Description | +--------+ + + + + | 01/22/ | Hospital | [facility] | Mono Diaz, | Lumbar radiculopathy | | 2018 | Encounter | MED CTR MRI [address] | PA-C [address] | | | | | [address] [place], | [address] [place] | | | | | [place] [address] | [place] [address] | | | | | [phone] | [phone] | | | | | | | [...] [place] | | | | | | [address] | | | | | | | | | | | | [place] | | +--------+ + + + + | 01/27/ | Appointment | Radiology | Barb Marte PA | | | 2017 | | | [address], [address] | | | | | | [address] [place], [place] | | | | | | [address] | | | | | | | | +--------+ + + + + | 02/11/ | Office | Physical Medicine | Mono Diaz, | | | 2017 | Visit | and Rehabilitation | AYAAN [address] | | | | | | [facility] [address] | | | | | | [place] [address] | | | | | | [phone] | | | | | | | [...] L4 nerve root along with the descending I5zvkvz | | roots within the subarticular recesses.L5-S1: Moderate to severe disc space narrowing | | and generalized disc osteophytecomplex combine with dorsal ligamentous and facet | | hypertrophy to moderatelynarrow the foramina to a similar degree, with encroachment on | | the exiting Z7huiqr roots along with the descending S1 nerve [...] DISEASE AND | | MILD ANTEROLISTHESIS AT E43-S5GUEU MILD STENOSIS.7. LEVOSCOLIOSIS AND MULTILEVEL FACET | [...]
--- OUTSIDE RECORDS SUMMARY | ~2018-01-26 | XMS | Encounter Summary ---
Demographics + + + | Address | [address] | | | [place] [address] | + + + | Home Phone [...] Author | [facility] | | | and Ottonielana | + + + | Organization | [facility] | | | and Ottonielana | + + + | Address | Unknown | + + + | Phone | Unavailable | + + + Support + + + + + | Name | Relationship | Address | Phone | + + + + + | Lucy Winchester | ECON | [place], [place] | | | | | [address] | | + + + + + | Kellen Briones | ECON | [place] | | | | | [address] | | + + + + + Care Team Providers + +------+ + | Care Product Engineering Manager Name | Role | Phone | + +------+ + | Barb Marte | PCP | | + +------+ + Encounter Details +--------+ + + + + | Date | Type | Department | Care Team | Description | +--------+ + + + + | 12/26/ | Ancillary | [facility] | Barb Marte PA | Visit for screening | | 2018 | Orders | MED CTR XRAY [address] | [address] | mammogram | | | | [place] | [address], [place] | | | | | [place] [address] | [address] | | | | | [phone] | | | +--------+ + + + [...] [place] | | | | | | [address] | | | | | | | | | | | | [place] | | +--------+ + + + + | 01/27/ | Appointment | Radiology | Barb Marte PA | | | 2017 | | | [address] | | | | | | [address] [place], [place] | | | | | | [address] | | | | | | | | +--------+ + + + + | 02/11/ | Office | Physical Medicine | Mono Diaz, | | | 2017 | Visit | and Rehabilitation | AYAAN [address] | | | | | | [address] [place] | | | | | | [place] [address] | | | | | | [phone] | | | | | | | [...]
--- OUTSIDE RECORDS SUMMARY | ~2018-01-26 | XMS | Encounter Summary ---
Demographics + + + | Address | [address] | | | [place] [address] | + + + | Home Phone [...] | Author | [facility] | | | and Ottonielana | + + + | Organization | [facility] [...] [place], [place] | | | | | [address] | | + + + + + | Kellen Briones | ECON | [place] | | | | | [address] | | + + + + + Care Team Providers + +------+ + | Care Media Relations Intern Name | Role | Phone | [...] | (Primary Dx) | | | | [place], [place] | [place] [address] | | | | | [address] | [phone] | | | | | [phone] | | | +--------+ + + + [...] [place] | | | | | | [address] | | | | | | | | | | | | [place] | | +--------+ + + + + | 01/27/ | Appointment | Radiology | Barb Marte PA | | | 2017 | | | [address] | | | | | | [address] [place], [place] | | | | | | [address] | | | | | | | | +--------+ + + + + | 02/11/ | Office | Physical Medicine | Mono Diaz, | | | 2017 | Visit | and Rehabilitation | AYAAN [address] | | | | | | [address] | | | | | | [place] [address] | | | | | | [phone] | | | | | | | [...]
--- OUTSIDE RECORDS SUMMARY | ~2018-01-26 | XMS | Clinical Summary ---
Demographics + + + | Address | [address] | | | [place] [address] | + + + | Home Phone | | + + + | Preferred Language | Unknown | + + + | Marital Status | | + + + | Advent Affiliation | Unknown | + + + | Race | Unknown | + + + | Ethnic Group | Unknown | + + + Author + + + | Author | [facility] | + + + | Organization | [facility] | + + + | Address | Unknown | + + + | Phone | Unavailable | + + + Support + + + + + | Name | Relationship | Address | Phone | + + + + + | Lucy Winchester | ECON | [place], | | | | | [place] [address] | | + + + + + Care Team Providers + +------+ + | Care Prime Minister Name | Role | Phone | + +------+ + | Medicine, [place] | PP | Unavailable | | Family [...]
--- OUTSIDE RECORDS SUMMARY | ~2018-01-26 | XMS | Clinical Summary ---
Demographics + + + | Address | [address] | | | [place] [address] | + + + | Home Phone [...] Team Providers + +------+ + | Care Laser Engraver Name | Role | Phone | + +------+ + PP | Unavailable | + +------+ + Source Comments HOLLY is fully live on both [facility] and [facility] InPatient.[facility] Allergies Not on File Current Medications Not [...]
--- OUTSIDE RECORDS SUMMARY | ~2018-01-26 | XMS | Encounter Summary ---
Demographics + + + | Address | [address] | | | [place] [address] | + + + | Home Phone [...] + | Author | [facility] | | | and Ottonielana | + + + | Organization | [facility] | | | and Ottonielana | + + + | Address | Unknown | + + + | Phone | Unavailable | + + + Support + + + + + | Name | Relationship | Address | Phone | + + + + + | Lucy Winchester | ECON | [place], [place] | | | | | [address] | | + + + + + | Kellen Briones | ECON | [place], [place] | | | | | [address] | | + + + + + Care Team Providers + +------+ + | Care Supervisor [address] Name | Role | Phone | + [...] W | | | | | | [place], | | | | | | [place] [address] | | | | | | [phone] | | | +--------+ + + + [...] [place] | | | | | | [address] | | | | | | | | | | | | [place] | | +--------+ + + + + | 01/27/ | Appointment | Radiology | Barb Marte PA | | | 2017 | | | [address] | | | | | | [address] [place], [place] | | | | | | [address] | | | | | | | | +--------+ + + + + | 02/11/ | Office | Physical Medicine | Mono Diaz, | | | 2017 | Visit | and Rehabilitation | AYAAN MCNALLY | | | | | | [facility] [address] | | | | | | [place] [address] | | | | | | [phone] | | | | | | | | +--------+ + + + + as of this encounter Visit Diagnoses Not on filein this encounter"
--- OUTSIDE RECORDS SUMMARY | ~2018-01-26 | XMS | Encounter Summary ---
Demographics + + + | Address | [address] | | | [place] [address] | + + + | Home Phone [...] | Author | [facility] | | | and Ottonielana | + + + | Organization | [facility] | [...] [place], [place] | | | | | [address] | | + + + + + | Kellen Briones | ECON | [place] | | | | | [address] | | + + + + + Care Team Providers + +------+ + | Care Alodize Machine Operator Name | Role | Phone | + +------+ + | Barb Marte | PCP | | + +------+ + Encounter Details +--------+ + + + + | Date | Type | Department | Care Team | Description | +--------+ + + + + | 01/03/ | Hospital | [facility] | Barb Marte PA | Visit for screening | | 2018 | Encounter | MED CTR MAMMOGRAPHY | [address] | mammogram | | | | [address] | [address] | | | | | [place], [place] | [address] | | | | | [address] | | | | | | [phone] | | | +--------+ + + + [...] [place] | | | | | | [address] | | | | | | | | | | | | [place] | | +--------+ + + + + | 01/27/ | Appointment | Radiology | Barb Marte PA | | | 2017 | | | [address] | | | | | | [address] [place] | | | | | | [address] | | | | | | | | +--------+ + + + + | 02/11/ | Office | Physical Medicine | Mono Diaz, | | | 2017 | Visit | and Rehabilitation | AYAAN MCNALLY | | | | | | [address] | | | | | | [place] [address] | | | | | | [phone] | | | | | | | [...]
--- OUTSIDE RECORDS SUMMARY | ~2018-01-26 | XMS | Encounter Summary ---
Demographics + + + | Address | [address] | | | [place] [address] | + + + | Home Phone [...] | Author | [facility] | | | and Ottonielana | + + + | Organization | [facility] | | | and [place]tonielana | + + + | Address | Unknown | + + + | Phone | Unavailable | + + + Support + + + + + | Name | Relationship | Address | Phone | + + + + + | Lucy Winchester | ECON | [place], [place] | | | | | [address] | | + + + + + | Kellen Briones | ECON | [place], [place] | | | | | [address] | | + + + + + Care Team Providers + +------+ + | Care Lighting Fixture Installer Name | Role | Phone | [...] + + | 01/23/ | Telephone | [facility] | Mono Diaz, | Medication Question | | 2017 | | PHYSIATRY [address] | PA-C [address] | | | | | [place], | [address] [place] | | | | | [place] [address] | [place] [address] | | | | | [phone] | [phone] | | | | | | | [...] [place] | | | | | | [address] | | | | | | | | | | | | [place] [address] | | +--------+ + + + + | 01/27/ | Appointment | Radiology | Barb Marte PA | | | 2017 | | | [address] | | | | | | [address] [place] | | | | | | [address] | | | | | | | | +--------+ + + + + | 02/11/ | Office | Physical Medicine | Mono Diaz, | | | 2017 | Visit | and Rehabilitation | AYAAN [address] | | | | | | [address] [place] | | | | | | [place] [address] | | | | | | [phone] | | | | | | | | +--------+ + + + + as of this encounter Visit Diagnoses Not on filein this encounter"
--- OUTSIDE RECORDS SUMMARY | ~2018-01-26 | XMS | Encounter Summary ---
Demographics + + + | Address | [address] | | | [place] [address] | + + + | Home Phone [...] | Author | [facility] | | | and Ottonielana | + + + | Organization | [facility] | [...] [place], [place] | | | | | [address] | | + + + + + | Kellen Briones | ECON | [place], [place] | | | | | [address] | | + + + + + Care Team Providers + +------+ + | Care Yeast Tender Name | Role | Phone | [...] Lumbar | AYAAN Villareal | [address] | | | | | radiculopath | [address] | [place], | | | | | y | [address] | [place] | | | | | Procedures | [address] | [address] | | | | | MRI Lumbar | [place], | Phone: | | | | | Spine wo | [place] [address] | [phone] | | | | | Contrast | Phone: | Fax: | | | | | | [phone] | [phone] | | | | | | Fax: | | | | | | | [phone] | | +--------+--------+ + + + + Reason for Visit + + + | Reason | Comments | + + + | Follow-up | Low Back Pain | + + + Encounter Details +--------+---------+ + + + | Date | Type | Department | Care Team | Description | +--------+---------+ + + + | 01/07/ | Office | [facility] | Mono Diaz, | Lumbar radiculopathy | | 2018 | Visit | PHYSIATRY [address] | PA-C [address] | (Primary Dx); | | | | [place], | [address] [place] | Spinal stenosis of | | | | [place] [address] | [place] [address] | lumbar region with | | | | [phone] | [phone] | [id number] | | | | | | level [...] press against a nerve. Date Last Reviewed: 03/06/201519992715-8916 [employer] [address] [place] [address], [place] [address]. All righ ts reserved. This information is [...] and narcotic medications use; she currently uses Lohman, Flexeril and ga bapentin. She is taking [...] has no apparent deficits with short or watermelon inspector memory. 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 Unfortunately Clementine Winchester continues to have [...] [place] | | | | | | [address] | | | | | | | | | | | | [place] | | +--------+ + + + + | 01/27/ | Appointment | Radiology | Barb Marte PA | | | 2017 | | | [address] | | | | | | [address] [place], [place] | | | | | | [address] | | | | | | | | +--------+ + + + + | 02/11/ | Office | Physical Medicine | Mono Diaz, | | | 2017 | Visit | and Rehabilitation | AYAAN MCNALLY | | | | | | [facility] [address] | | | | | | [place] [address] | | | | | | [phone] | | | | | | | [...] L4 nerve root along with the descending G2rrrfe | | roots within the subarticular recesses.L5-S1: Moderate to severe disc space narrowing | | and generalized disc osteophytecomplex combine with dorsal ligamentous and facet | | hypertrophy to moderatelynarrow the foramina to a similar degree, with encroachment on | | the exiting C3siibx roots along with the descending S1 nerve [...] 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
--- OUTSIDE RECORDS SUMMARY | ~2018-01-26 | XMS | Encounter Summary ---
Demographics + + + | Address | [address] | | | [place] [address] | + + + | Home Phone [...] + | Author | [facility] | | | and Ottonielana | + + + | Organization | [facility] | | | and [place]tonielana | + + + | Address | Unknown | + + + | Phone | Unavailable | + + + Support + + + + + | Name | Relationship | Address | Phone | + + + + + | Lucy Winchester | ECON | [place], [place] | | | | | [address] | | + + + + + | Kellen Briones | ECON | [place], [place] | | | | | [address] | | + + + + + Care Team Providers + +------+ + | Care Director Of Diagnostic Imaging Name | Role | Phone | + [...] [address] | | | | | [place], | [address] [place] | | | | | [place] [address] | [place] [address] | | | | | [phone] | [phone] | | | | | | | [...] [place] | | | | | | [address] | | | | | | | | | | | | [place] | | +--------+ + + + + | 01/27/ | Appointment | Radiology | Barb Marte PA | | | 2017 | | | [address] | | | | | | [address] [place] | | | | | | [address] | | | | | | | | +--------+ + + + + | 02/11/ | Office | Physical Medicine | Mono Diaz, | | | 2017 | Visit | and Rehabilitation | AYAAN [address] | | | | | | [address] [place] | | | | | | [place] [address] | | | | | | [phone] | | | | | | | | +--------+ + + + + as of this encounter Visit Diagnoses Not on filein this encounter"
--- OUTSIDE RECORDS SUMMARY | ~2018-01-26 | XMS | Encounter Summary ---
Demographics + + + | Address | [address] | | | [place] [address] | + + + | Home Phone [...] | Author | [facility] | | | and Ottonielana | + + + | Organization | [facility] | | | and [place]tonielana | + + + | Address | Unknown | + + + | Phone | Unavailable | + + + Support + + + + + | Name | Relationship | Address | Phone | + + + + + | Lucy Winchester | ECON | [place], [place] | | | | | [address] | | + + + + + | Kellen Briones | ECON | [place], [place] | | | | | [address] | | + + + + + Care Team Providers + +------+ + | Care Bullet Swaging Machine Adjuster Name | Role | Phone | [...] Lumbar | AYAAN Villareal | [address] | | | | | radiculopath | [address] | [place], | | | | | y | [address] | [place] | | | | | Procedures | [address] | [address] | | | | | MRI Lumbar | [place], | Phone: | | | | | Spine wo | [place] [address] | [phone] | | | | | Contrast | Phone: | Fax: | | | | | | [phone] | [phone] | | | | | | Fax: | | | | | | | [phone] | | +--------+--------+ + + + + [...] Lumbar | Mono, PA-C | [address] | | | | | radiculopath | [address] | [place], | | | | | y | [address] | [place] | | | | | Procedures | [address] | [address] | | | | | MRI Lumbar | [place], | Phone: | | | | | Spine wo | [place] [address] | [phone] | | | | | Contrast | Phone: | Fax: | | | | | | [phone] | [phone] | | | | | | Fax: | | | | | | | [phone] | | +--------+--------+ + + + + [...] Lumbar | Mono, PA-C | [address] | | | | | radiculopath | [address] | [place], | | | | | y | [address] | [place] | | | | | Procedures | [address] | [address] | | | | | MRI Lumbar | [place], | Phone: | | | | | Spine wo | [place] [address] | [phone] | | | | | Contrast | Phone: | Fax: | | | | | | [phone] | [phone] | | | | | | Fax: | | | | | | | [phone] | | +--------+--------+ + + + + Encounter Details +--------+ + + + + | Date | Type | Department | Care Team | Description | +--------+ + + + + | 01/22/ | Hospital | [facility] | Mono Diaz, | Lumbar radiculopathy | | 2018 | Encounter | MED CTR MRI [address] | PA-C [address] | | | | | [place], | [address] [place] | | | | | [place] [address] | [place] [address] | | | | | [phone] | [phone] | | | | | | | [...] [place] | | | | | | [address] | | | | | | | | | | | | [place] | | +--------+ + + + + | 01/27/ | Appointment | Radiology | Babr Marte PA | | | 2017 | | | [address] | | | | | | [address] [place], [place] | | | | | | [address] | | | | | | | | +--------+ + + + + | 02/11/ | Office | Physical Medicine | Mono Diaz, | | | 2017 | Visit | and Rehabilitation | AYAAN [address] | | | | | | [facility] [address] | | | | | | [place] [address] | | | | | | [phone] | | | | | | | [...] L4 nerve root along with the descending [id number] | | roots within the subarticular recesses.L5-S1: Moderate to severe disc space narrowing | | and generalized disc osteophytecomplex combine with dorsal ligamentous and facet | | hypertrophy to moderatelynarrow the foramina to a similar degree, with encroachment on | | the exiting K1izium roots along with the descending S1 nerve [...] DISEASE AND | | MILD ANTEROLISTHESIS AT U16-[id number] MILD STENOSIS.7. LEVOSCOLIOSIS AND MULTILEVEL FACET | [...]
--- OUTSIDE RECORDS SUMMARY | ~2018-01-26 | XMS | Encounter Summary ---
Demographics + + + | Address | [address] | | | [place] [address] | + + + | Home Phone [...] Author | [facility] | | | and Ottonielana | + + + | Organization | [facility] | | | and [place]tonielana | + + + | Address | Unknown | + + + | Phone | Unavailable | + + + Support + + + + + | Name | Relationship | Address | Phone | + + + + + | Lucy Winchester | ECON | [place], [place] | | | | | [address] | | + + + + + | Kellen Briones | ECON | [place] | | | | | [address] | | + + + + + Care Team Providers + +------+ + | Care Rn L And D Name | Role | Phone | + [...] [address] | | | | | [place] | [address] [place] [place] | | | | | [place] [address] | [address] | | | | | [phone] | | | +--------+ + + + [...] [place] | | | | | | [address] | | | | | | | | | | | | [place] | | +--------+ + + + + | 01/27/ | Appointment | Radiology | Barb Marte PA | | | 2017 | | | [address] | | | | | | [address] [place], [place] | | | | | | [address] | | | | | | | | +--------+ + + + + | 02/11/ | Office | Physical Medicine | Mono Diaz, | | | 2017 | Visit | and Rehabilitation | AYAAN [address] | | | | | | [facility] [address] | | | | | | [place] [address] | | | | | | [phone] | | | | | | | [...]
--- OUTSIDE RECORDS SUMMARY | ~2018-01-26 | XMS | Clinical Summary ---
Demographics + + + | Address | [address] | | | [place] [address] | + + + | Home Phone | | + + + | Preferred Language | Unknown | + + + | Marital Status | Unknown | + + + | Hindu Affiliation | Unknown | + + + [...] Team Providers + +------+ + | Care Field Support Rep Name | Role | Phone | + +------+ + PP | Unavailable | + +------+ + Source Comments HOLLY is fully live on both [facility] and [facility] InPatient.[facility] Allergies Not on File Current Medications Not [...]
[~2018-01-26 08:29] MED LIST changes: +CEFPODOXIME PR200 MG PO; +DURAGESIC1 EAC1 TD; +GLUCOPHAGE500 MG PO; +RANITIDINE HCL150 MG PO; +SIMVASTATIN40 MG PO
[2018-01-26] MEDS ORDERED: BACLOFEN10 MG PO (08:47)
--- NOTE | 2018-01-26 13:50 | NUR ---
PT ARRIVED INTO ROOM 121 ON MED SURG UNIT AT 1350. PT HAD NO C/O PAIN OR N/V ON ADMISSION. PLEASANT, CALM AND COOPERATIVE. PIV IN RIGHT AC FLUSHES WELL WITH BLOOD RETURN. ROOM AIR OXYGEN 99%. VS AND CONDITION UPON ARRIVAL STABLE. PT AWAKE, ORIENTED TO PERSON AND PLACE BUT DISORIENTED TO THE DAY OF THE WEEK AND THE YEAR. PT HAVING EXPRESSIVE APHASIA. FULL BODY SKIN ASSESSMENT SHOWED THAT SHE ARRIVED WITH BRIGHT RED BLANCHABLE COCCYX. EDUCATION GIVEN TO PT AND DAUGHTER AT BEDSIDE THE IMPORTANCE OF FREQUENT TURNS AND REPOSITIONING. ASSESSMENT COMPLETE AT THIS TIME. BEDSIDE SWALLOW SCREEN PERFOMED AND PASSED BY THIS RN. PHYSICAL COPY IN THE CHART. ADA DIET PER ORDER SINCE SHE PASSED HER SCREEN. LAST BM YESTERDAY. PT PLACED ON TELEMETRY AND IS SINUS RHYTHM. CALL LIGHT WITHIN REACH. DAUGHTER AT BEDSIDE. BED ALARM ON AND FALL PRECAUTIONS IN PLACE. WILL CONTINUE TO MONITOR.
--- NOTE | 2018-01-26 15:00 | NUR ---
1500 NEURO ASSESSMENT COMPLETED; NO CHANGES FROM 1400. WILL CONTINUE TO MONITOR.
[2018-01-26] MEDS ORDERED: VENTOLIN HFA18 GM INH (15:33)
--- NOTE | 2018-01-26 15:39 | NUR ---
Medications reconciled using [facility] records, patient's home medication list and patient/patient's daughter interview
--- NOTE | 2018-01-26 16:00 | NUR ---
1600 NEURO ASSESSMENT COMPLETED; NO CHANGE FROM 1500. Q2HR INITIATED AT THIS TIME. WILL REASSESS AT 1800. CALL LIGHT WITHIN REACH, DAUGHTER AT BEDSIDE, BED ALARM ON AND FALL PRECAUTIONS IN PLACE. WILL CONTINUE TO MONITOR.
--- NOTE | 2018-01-26 18:05 | NUR ---
1800 NEURO ASSESSMENT COMPLETED; NO CHANGES FROM 1600. SINCE ARRIVAL TO UNIT, PT HAS BEEN VERY PLEASANT, CALM AND COOPERATIVE WITH INTERMITTENT MOMENTS OF ANXIETY/ FRUSTRATION WITH HER EXPRESSIVE APHASIA AND CONFUSION. THE PT TRIES TO DISTRACT THIS RN AND CHANGE SUBJECT WHEN SHE'S SLOW TO ANSWER AN ORIENTATION QUESTION. THIS RN AND PATIENT FINANCIAL REP ASSISTED PT TO TOILET; PT WAS UNSTEADY ON HER FEET BUT ABLE TO AMBULATE WITH THE 2 ASSIST. URINE CLEAR AND YELLOW. LR X1 BAG STILL RUNNING AT 100 ML/HR. EDUCATION WITH PT ATTEMPTED BUT UNABLE TO GUAGE HER UNDERSTANDING. REORIENTATION NEEDED. EMOTIONAL SUPPORT GIVEN. NO C/O PAIN OR NAUSEA. X2 MAG REPLACEDMENTS COMPLETED INTRAVENOUSLY. REMAINS SR ON TELE #5. ROOM AIR. BP IMPROVING SINCE ARRIVAL TO UNIT THIS AFTERNOON. PT'S BLANCHABLE RED BOTTOM SHE ARRIVED WITH TO UNIT HAS ALMOST COMPLETELY GONE AWAY DUE TO OUR FREQUENT REPOSITIONING. PT BACK IN BED AT THIS TIME; FSBS TAKEN AND IS 95. DINNER AT BEDSIDE AND PT WILL REQUEST STAFFING TO HEAT FOOD UP WHEN SHE WANTS IT DUE TO HER LATE LUNCH. CALL LIGHT AND BELONGINGS WITHIN REACH. BED LOCKED IN LOWEST POSITION WITH ALARM ON. WILL CONTINUE TO MONITOR.
--- NOTE | 2018-01-26 19:20 | NUR ---
SHIFT REPORT RECEIVED. ULTRASOUND IN ROOM. PATIENT DENIES NEEDS.
--- NOTE | 2018-01-26 21:00 | NUR ---
IN ROOM FOR PT ASSESSMENT/EVENING MEDS. PT RESTING IN BED WATCHING TELEVISION. PT PLEASANT, APPROPRIATE. AOX2, PERSON, TIME, PT DID HAVE SHORT LAPSE WHEN ASKED WHAT CITY SHE WAS IN SHE RESPONDED "[place], [place]" PT CORRECTED HERSELF SHORTLY AFTER. PERRLA, STRENGTH EQUAL BILATERALLY IN UPPER/LOWER EXTREMITIES, FACE SYMMETRICAL, NO C/O LOSS OF SENSATION OR TINGLING IN ANY EXTREMITIES. PT AMBULATED FROM BED TO BATHROOM WITH 2PA AND FWW. WHILE AMBULATING TO THE BATHROOM PT DID EXHIBIT SOME NEGLECT TO HER RIGHT VISUAL FIELD AND HAD TO BE INSTRUCTED THAT THE TOILET WAS TO HER RIGHT. PT AMBULATED WELL. PULSES EQUAL BILATERALLY. IV FLUIDS RUNNING PER EMAR WNL. CONTINUOUS PULSE OX PLACED ON LEFT FOOT FOR BEDTIME. PT REMAINS ON RA O2 SATS >95. BED ALARM ON, NO REQUESTS AT THIS TIME. CALL LIGHT WITHIN REACH. BED IN LOW POSITION.
--- NOTE | 2018-01-26 22:00 | NUR ---
NEURO CHECK PT ALERT/ORIENTED TO PERSON, PLACE. NOT ORIENTED TO TIME, FACE SYMMETRICAL, TIME STAMP ASSEMBLER STRENGTH EQUAL BILATERALLY. PERRLA. PERIPHERAL VISION INTACT. PT IS SLOW TO RESPOND TO SOME QUESTIONS. PT C/O AN INTERMITTENT TINGLING IN LEFT LEG, NO LOSS OF SENSATION. LOWER EXTREMITY STRENGTH STRONG/EQUAL BILATERALLY. PT AMBULATES WELL WITH FWW. PUPILS 3 MM.
--- NOTE | 2018-01-27 01:30 | NUR ---
PT PLACED ON O2 2LNC FOR BEDTIME. PT STATES THAT SHE NORMALLY WEARS OXYGEN TO BED AT HOME. CONTINUOUS PULSE OX IN PLACE. O2 SATS >93. CALL LIGHT WITHIN REACH. BED IN LOW POSITION. DENTURES REMOVED AND PLACED AT BEDSIDE TABLE. NO FURTHER REQUESTS AT THIS TIME.
--- NOTE | 2018-01-27 02:00 | NUR ---
NEURO CHECK PT RESTING IN BED. PUPILS PERRLA 2-3MM, BRISK. PT ALERT TO PERSON, PLACE, BUT WHEN ASKED THE DATE SHE CAN NOT REMEMBER OR SHE CAN NOT EXPRESS THE DATE. PT ATTEMPTS TO LAUGH OFF AND AVOID QUESTIONS OUT OF APPARENT FRUSTRATION. SKI PATROL STRENGTH STRONG/EQUAL BILATERALLY. MUSCULOSKELETAL MOVEMENT/STRENGTH EQUAL BILATERALLY UPPER AND LOWER EXTREMITIES. PT NOTES THAT TINGLING IN LEFT LEG IS NO LONGER PRESENT, DENIES ANY NUMBNESS OR LOSS OF SENSATION ELSEWHERE. PT DENIES ANY CP OR SOB. CALL LIGHT WITHIN REACH.
--- NOTE | 2018-01-27 05:45 | NUR ---
NEURO CHECK PT AOX3, PT DID NOT EXHIBIT ANY DISORIENTATION TO SELF, TIME OR PLACE. PT'S EXTREMITIES STRONG AND EQUAL BILATERALLY. PERRLA 2-3MM, BRISK. PERIPHERAL VIEW INTACT. PT DENIES ANY LOSS OF SENSATION OR TINGLING IN HER EXTREMITIES. WHILE AMBULATING TO THE BATHROOM PT AMBULATED WITH SBA WITH FWW. PT MENTIONED WHILE AMBULATING THAT HER LEFT SIDE FELT "TIGHT" BUT WAS NOT EXPERIENCING ANY NUMBNESS OR PAIN. FACE SYMMETRICAL. NO REQUESTS ORQUIDEA.
--- NOTE | 2018-01-27 06:31 | NUR ---
REMOVED TELE FOR MRI, CCU NOTIFIED.
--- NOTE | 2018-01-27 06:39 | NUR ---
PT HAS BEEN PLEASANT AND RESPONSIVE DURING SHIFT. PT FLUCTUATES IN ORIENTATION ORIENTED TO SELF BUT NOT TO PLACE/TIME. Q4 HOUR NEURO CHECKS. PT HAS HAD GLOBAL APHASIA, CAN BE SLOW TO RESPOND TO QUESTIONS, AND SOMETIMES CAN NOT GET THE RIGHT WORD OUT. PT EXHIBITS FRUSTRATION AND TRYS TO LAUGH IT OFF. PT'S EXTREMITIES STRONG AND EQUAL BILATERALLY, INTERMITTENT TINGLING IN LEFT LEG WITH REPORTS OF "TIGHT" FEELING WITH AMBULATING. PT AMBULATES WELL WITH 1 PERSON SBA WITH FWW. IV SL. HEART REMAINS NORMAL SINUS ON TELE #5. LS CLEAR, DRY NONPRODUCTIVE COUGH. BT ACTIVE, URINE OUTPUT QS. CONTINUOUS PULSE OX. O2 SAT >95. CALL LIGHT WITHIN REACH. NO REQUESTS AT THIS TIME.
--- NOTE | 2018-01-27 09:30 | NUR ---
PT RESTING IN BED. ALERT, PT ANSWERS ORIENTATION QUESTIONS APPROPRIATELY BUT IT DOES TAKE HER SOME TIME TO THINK ABOUT THE CORRECT ANSWER. PT STATES SHE DOES NOT HAVE PAIN AT THIS TIME, NEW FENTANYL PATCH APPLIED THIS AM PREVIOUS PATCH WAS REMOVED THIS AM FOR MRI. PT ATE ALL OF BREAKFAST, OSMANI WELL, DENIES NAUSEA. NEURO ASSESSMENT BENIGN. STAFF PHARMACIST AT BEDSIDE AT THIS TIME FOR ECHO. CALL LIGHT WITHIN REACH.
--- NOTE | 2018-01-27 11:10 | NUR ---
PT SITTING UP IN BED WATCHING TV. NEURO ASSESSMENT UNCHANGED. PT DENIES NEEDS OR CONCERNS AT THIS TIME. CALL LIGHT WITHIN REACH.
[2018-01-27] MEDS ORDERED: PLAVIX75 MG PO (12:19)
[2018-01-27] MEDS ORDERED: LIPITOR40 MG PO (12:20)
--- NOTE | 2018-01-27 13:30 | NUR ---
PT FINISHED SHOWER WITH MINIMAL ASSIST. VOIDED AND SBA WITH WALKER TO SIT IN RECLINER. GIVEN WARM BLANKET. CALL LIGHT WITHIN REACH.
--- NOTE | 2018-01-27 13:52 | EKG ---
[facility] [address] [place] [address] Signed Normal sinus rhythm Left axis deviation Incomplete right bundle branch block Anteroseptal infarct (cited on or before 07-AUG-2016) T wave abnormality, consider lateral ischemia Abnormal ECG When compared with ECG of 19-AUG-2017 12:42, Questionable change in initial forces of Anteroseptal leads ST no longer depressed in Inferior leads Confirmed by JOSE DE LOS SANTOS MD ([id number]) on 01/27/2018 1:51:58 PM Electronically Signed By: JOSE DE LOS SANTOS MD 01/27/18 1352 PATIENT NAME: RADHA NUNEZ Electrocardiogram DATE OF : 44 PHYSICIAN: JOSE DE LOS SANTOS MD REPORT #: [id number] REPORT IS CONFIDENTIAL AND NOT TO BE RELEASED WITHOUT AUTHORIZATION
--- NOTE | 2018-01-27 15:20 | NUR ---
PT SITTING UP IN RECLINER VISITING WITH FAMILY. NEURO ASSESSMENT UNCHANGED. PT DENIES NEEDS OR CONCERNS AT THIS TIME. CALL LIGHT WITHIN REACH.
--- NOTE | 2018-01-27 18:18 | NUR ---
PT SITTING UP IN BED WATCHING TV. ATE ALL OF DINNER, OSMANI WELL. NO SIGNS OF TROUBLE SWALLOWING. PT DENIES NEEDS OR CONCERNS AT THIS TIME. CALL LIGHT WITHIN REACH.
--- NOTE | 2018-01-27 19:21 | NUR ---
RECEIVED REPORT FROM GRAYSON HIGGINS. PT AWAKE IN BED. TELE 5- SINUS RHYTHM. NO COMPLAINTS OR NEEDS AT THIS TIME. PT ALERT AND ORIENTED. CALL LIGHT IN REACH.
--- NOTE | 2018-01-27 22:19 | NUR ---
ASSESSMENT COMPLETE. PT UP TO RESTROOM WITH SBA WITH FWW VOID X1. ALERT AND ORIENTED X3, NEURO ASSSESSMENT BENIGN. TELE 5- SINUS RHYTHM. 2 L OXYGEN NC APPLIED. NO COMPLAINTS OR NEEDS AT THIS TIME. CALL LIGHT IN REACH.
--- NOTE | 2018-01-28 00:53 | NUR ---
PT SLEEPING IN BED. BREATHING EVEN AND UNLABORED ON 2 L OXYGEN NC. CALL LIGHT IN REACH.
--- NOTE | 2018-01-28 02:31 | NUR ---
CHECKED ON PT, APPEARS TO BE SLEEPING, EYE MASK ON, 2L OXYGEN BY NC IN PLACE, HR 65 ON TELE 5. CALL LIGHT NEXT TO PT.
--- NOTE | 2018-01-28 03:57 | NUR ---
CHECKED ON PT. PT SLEEPING, BREATHING EVEN AND UNLABORED. HR 67, TELE 5.
--- NOTE | 2018-01-28 04:39 | NUR ---
ASSESSMENT COMPLETE. ALERT AND ORIENTED X3. NEURO EXAM WNL. UP TO RESTROOM WITH SBA AND FWW TO VOID. IV SALINE LOCKED. PT BACK IN BED, GIVEN APPLEJUICE REQUESTED. CALL LIGHT IN REACH AND LIGHTS OFF. TELE 5- SINUS RHYTHM.
--- NOTE | 2018-01-28 06:16 | NUR ---
PT SLEPT THROUGHOUT NIGHT. ALERT AND ORIENTED X3, NEURO CHECKS WNL. VITALS Q4H, TELE #5- SINUS RHYTHM. OXYGEN 2 L NC AT NIGHT WHEN SLEEPING, OXYGEN SATURATIONS WNL. SBA WITH FWW TO RESTROOM. PT USES CALL LIGHT APPROPRIATELY.
--- NOTE | 2018-01-28 07:00 | NUR ---
REPORT RC'D FROM GRANTS ADMINISTRATOR NURSE, REPORTS NEURO CHECK WNL, AND POSSIBLE DC HOME. PT RESTING IN BED, NO ACUTE DISTRESS NOTED. DENIES OTHER NEEDS AT THIS TIME.
--- NOTE | 2018-01-28 07:00 | NUR ---
IN ROOM TO CHECK ON PT. MORNING MEDICATIONS AND ICE WATER GIVEN. CALL LIGHT IN REACH, NO FURTHER REQUESTS AT THIS TIME.
--- NOTE | 2018-01-28 09:35 | NUR ---
PATIENT SITTING UP IN BED. FRESH WATER GIVEN. CALL LIGHT IN REACH. NO FURTHER NEEDS AT THIS TIME.
--- NOTE | 2018-01-28 11:56 | NUR ---
DISCHARGE INSTRUCTIONS PROVIDED, ALL QUESTIONS ANSWERED, VERBALIZED UNDERSTANDING OF EDUCATION AND AGREEABLE. FSBS OBTAINED AND 90, NO INSULIN NEEDED AT THIS TIME. IV SITE REMOVED WNL. PT WILL AWAIT DAUGHTER'S ARRIVAL.
--- NOTE | 2018-01-28 14:07 | NUR ---
FAXED CHART NOTES TO [facility] OP PT, INCLUDING FACESHEET, ORDER, ER NOTES, H AND P, PROG NOTES, DC SUMMARY AND PT,OT AND ST EVAL. RECIEVED FAX CONFIRMATION OF THIS.
== END 2018-01-28 12:50 | disposition home or self-care (01) | DRG 65 ==
LOC: ED 08:29 → MS 12:34
PROVIDERS: ADMIT Internal Medicine
DX: I63.9 Cerebral infarction, unspecified (principal); J44.1 Chronic obstructive pulmonary disease with (acute) exacerbation; R47.01 Aphasia; I25.10 Atherosclerotic heart disease of native coronary artery without angina pectoris; Z95.1 Presence of aortocoronary bypass graft; E03.9 Hypothyroidism, unspecified; K21.9 Gastro-esophageal reflux disease without esophagitis; M51.16 Intervertebral disc disorders with radiculopathy, lumbar region; Z79.891 Long term (current) use of opiate analgesic; F39 Unspecified mood [affective] disorder; E11.22 Type 2 diabetes mellitus with diabetic chronic kidney disease; I12.9 Hypertensive chronic kidney disease with stage 1 through stage 4 chronic kidney disease, or unspecified chronic kidney disease; N18.9 Chronic kidney disease, unspecified
CPT/HCPCS: 36415; 70450; 70551; 71045; 80048; 80053; 80061; 81001; 82803; 83036; 83605; 83735; 83880; 84484; 85025; 92507; 93005; 93010; 93306; 93880; 94640; 94762; 96361; 96374; 97110; 97112; 97116; 97162; 97165; 99285; J1650; J3475; J7030; J7120

== ENCOUNTER 2018-01-29 23:33 | Inpatient (IN) | payer MEDICARE, OTHER ==
[~2018-01-29] VITALS: Ht 160 cm; Wt 68.5 kg
--- OUTSIDE RECORDS SUMMARY | ~2018-01-29 | XMS | Encounter Summary ---
Demographics + + + | Address | [address] | | | [place] [address] | + + + | Home Phone | | + + + | Preferred Language | Unknown | + + + | Marital Status | | + + + | Methodist Affiliation | Unknown | + + + | Race | Unknown | + + + | Ethnic Group | Unknown | + + + Author + + + | Author | [facility] | + + + | Organization | [employer] [facility] | + + + | Address | Unknown | + + + | Phone | Unavailable | + + + Support + + + + + | Name | Relationship | Address | Phone | + + + + + | Lucy Winchester | ECON | [place], | | | | | [place] [address] | | + + + + + Care Team Providers + +------+ + | Care Demographer Name | Role | Phone | + +------+ + | Medicine, [employer] | PCP | Unavailable | | Family | | | + +------+ + Encounter Details +--------+ + + + + | Date | Type | Department | Care Team | Description | +--------+ + + + + | 01/28/ | Ancillary | [facility] | Jose Perry MD | Cerebrovascular | | 2018 | Orders | ECHO | [address] | accident (CVA), | | | | | [place], [place] | unspecified | | | | | [id number] | mechanism (HCC) | | | | | | | +--------+ + + + + Social History + +-------+ +--------+------+ | Tobacco Use | Types | Packs/Day | Years | Date | | | | | Used | | + +-------+ +--------+------+ | Never Assessed | | | | | + +-------+ +--------+------+ + + + | Sex Assigned at | Date Recorded | | | | + + + | Not on file | | + + + as of this encounter Plan of Treatment + +--------+ + + | Name | Priori | Associated Diagnoses | Date/Time | | | ty | | | + +--------+ + + | ECHO outside interpretation | Routin | Cerebrovascular | 01/24/2018 9:31 AM | | standard | e | accident (CVA), | PDT | | | | unspecified | | | | | mechanism (HCC) | | + +--------+ + + + +--------+ + + | Name | Priori | Associated Diagnoses | Order Schedule | | | ty | | | + +--------+ + + | ECHO outside interpretation | Routin | Cerebrovascular | 1 Occurrences | | standard | e | Accident (Cva), | starting 01/28/2018 | | | | Unspecified | until 01/28/2019 | | | | Mechanism (Hcc) | | + +--------+ + + as of this encounter Visit Diagnoses + + | Diagnosis | + + | Cerebrovascular accident (CVA), unspecified mechanism (HCC) | + +"
--- OUTSIDE RECORDS SUMMARY | ~2018-01-29 | XMS | Encounter Summary ---
Demographics + + + | Address | [address] | | | [place] [address] | + + + | Home Phone | | + + + | Preferred Language | Unknown | + + + | Marital Status | | + + + | Confucianist Affiliation | 1041 | + + + | Race | Unknown | + + + | Ethnic Group | Unknown | + + + Author + + + | Author | [facility] | | | and [place] | + + + | Organization | [facility] | | | and [place] | + + + | Address | Unknown | + + + | Phone | Unavailable | + + + Support + + + + + | Name | Relationship | Address | Phone | + + + + + | Lucy Winchester | ECON | [place], [place] | | | | | [address] | | + + + + + | Kellen Briones | ECON | [place], [place] | | | | | [address] | | + + + + + Care Team Providers + +------+ + | Care Civil Engineering Professor Name | Role | Phone | + +------+ + | Barb Marte | PCP | | + +------+ + Reason for Visit + + + | Reason | Comments | + + + | Medication Question | | + + + Encounter Details +--------+ + + + + | Date | Type | Department | Care Team | Description | +--------+ + + + + | 01/23/ | Telephone | [facility] | Mono Diaz, | Medication Question | | 2017 | | PHYSIATRY [address] | PA-C [address] | | | | | [place], | [address] [place] | | | | | [place] [address] | [place] [address] | | | | | [phone] | [phone] | | | | | | | [...] + +---------+ + | Alcohol Use | Drinks/We | oz/Week | Comments | | | ek | | | + + +---------+ + | Yes | 2 | 1.2 | occasional glass of wine | | | Glasses | | | | | of wine | | | + + +---------+ + + + + | Sex Assigned at | Date Recorded | | | | + + + | Not on file | | + + + as of this encounter Plan of Treatment +--------+---------+ + + + | Date | Type | Specialty | Care Team | Description | +--------+---------+ + + + | 02/11/ | Office | Physical Medicine | Mono Diaz, | | | 2017 | Visit | and Rehabilitation | [facility] | | | | | | [place] | | | | | | [place] [address] | | | | | | [phone] | | | | | | | | +--------+---------+ + + + as of this encounter Visit Diagnoses Not on filein this encounter"
--- OUTSIDE RECORDS SUMMARY | ~2018-01-29 | XMS | Encounter Summary ---
Demographics + + + | Address | [address] | | | [place] [address] | + + + | Home Phone | | + + + | Preferred Language | Unknown | + + + | Marital Status | | + + + | Protestant Affiliation | 1041 | + + + | Race | Unknown | + + + | Ethnic Group | Unknown | + + + Author + + + | Author | [facility] | | | and [place] | + + + | Organization | [facility] | | | and [place] | + + + | Address | Unknown | + + + | Phone | Unavailable | + + + Support + + + + + | Name | Relationship | Address | Phone | + + + + + | Lucy Winchester | ECON | [place], [place] | | | | | [address] | | + + + + + | Kellen Briones | ECON | [place], [place] | | | | | [address] | | + + + + + Care Team Providers + +------+ + | Care Commodity Merchant Name | Role | Phone | + +------+ + | Barb Marte | PCP | | + +------+ + Encounter Details +--------+ + + + + | Date | Type | Department | Care Team | Description | +--------+ + + + + | 01/07/ | Procedure | [facility] | | | | 2018 | Pass | MED CTR MRI [address] | | | | | | [place], | | | | | | [place] [address] | | | | | | [phone] | | | +--------+ + + + [...] Medicine | Mono Diaz, | | | 2018 | Visit | and Rehabilitation | [facility] [address] | | | | | | [place] | | | | | | [place] [address] | | | | | | [phone] | | | | | | | | +--------+---------+ + + + as of this encounter Visit Diagnoses Not on filein this encounter"
--- OUTSIDE RECORDS SUMMARY | ~2018-01-29 | XMS | Encounter Summary ---
Demographics + + + | Address | [address] | | | [place] [address] | + + + | Home Phone [...] Author | [facility] | | | and [place] | + + + | Organization | [facility] | | | and [place] | + + + | Address | Unknown | + + + | Phone | Unavailable | + + + Support + + + + + | Name | Relationship | Address | Phone | + + + + + | Lucy Winchester | ECON | [place], [place] | | | | | [address] | | + + + + + | Kellen Briones | ECON | [place] | | | | | [address] | | + + + + + Care Team Providers + +------+ + | Care Dietary Services Manager Name | Role | Phone | + +------+ + | Barb Marte | PCP | | + +------+ + Encounter Details +--------+ + + + + | Date | Type | Department | Care Team | Description | +--------+ + + + + | 06// | Orders Only | [facility] | Irving Becerril, | Status post cervical | | 2018 | | NEUROSURGERY [address] | DO [address] | spinal fusion | | | | [address] | [address] [place], | (Primary Dx) | | | | [place], [place] | [place] [address] | | | | | [address] | [phone] | | | | | [phone] | | | +--------+ + + + [...] | and Rehabilitation | [facility] [address] | | | | | | [address] [place] | | | | | | [place] [address] | | | | | | [phone] | | | | | | | | +--------+---------+ + + + as of this encounter Results XR Cervical Spine 2 or 3 Views (11/05/2017 1131) + + + | Narrative | Performed At | + + + | EXAM:XR CERVICAL SPINE 2 OR 3 VIEWS CLINICAL HISTORY: post op | [facility] | | COMPARISON: Cervical spine radiographs dated May 17, 2016 and | | | March 30, 2016. FINDINGS: Frontal and lateral | | | views. Anterior cervical discectomy and fusion changes from C3 | | | through C7. Intact hardware. No change in position of the | | | interbody graft markers. Ongoing bone development across the disc | | | spaces. No change in spinal alignment. Progressive osteophyte | | | buttressing along the inferior aspect of the anterior fusion plate | | | extending from the superior endplate of T1. IMPRESSION - No | | | radiographic evidence for an interval complication. Progressive | | | osteophyte buttressing along the inferior aspect of the anterior | | | fusion plate extending from the superior endplate of T1. Dictated | | | and Signed by: Santino Jewell MD Electronically signed: 11/05/2017 | | | 1:00 PM | | + + + + + | Procedure Note | + + | Howard, Rad Results In - 11/05/2017 1303 PDT EXAM:XR CERVICAL SPINE 2 OR 3 VIEWS | | | | CLINICAL HISTORY: post op | | | | COMPARISON: Cervical spine radiographs dated May 17, 2016 and March 30, | | 2016. | | | | FINDINGS: Frontal and [...] Status post cervical spinal fusion - Primary | + + | Arthrodesis status | + +"
--- OUTSIDE RECORDS SUMMARY | ~2018-01-29 | XMS | Clinical Summary ---
Demographics + + + | Address | [address] | | | [place] [address] | + + + | Home Phone | | + + + | Preferred Language | Unknown | + + + | Marital Status | | + + + | Episcopalian Affiliation | Unknown | + + + | Race | Unknown | + + + | Ethnic Group | Unknown | + + + Author + + + | Author | [facility] | + + + | Organization | [facility] | + + + | Address | Unknown | + + + | Phone | Unavailable | + + + Support + + + + + | Name | Relationship | Address | Phone | + + + + + | Lucy Winchester | ECON | [place], | | | | | [place] [address] | | + + + + + Care Team Providers + +------+ + | Care Closed Circuit Screen Watcher Name | Role | Phone | + +------+ + | Medicine, [place] | PP | Unavailable | | Family | | | + +------+ + Allergies Not on File Current Medications Not on file Active Problems Not on file Encounters +--------+ + + + + | Date | Type | Specialty | Care Team | Description | +--------+ + + + + | 01/28/ | Ancillary | | Jose Perry MD | Cerebrovascular | | 2017 | Procedure | | | accident (CVA), | | | | | | unspecified | | | | | | mechanism (HCC) | +--------+ + + + + | 01/28/ | Ancillary | | Jose Perry MD | Cerebrovascular | | 2017 | Orders | | | accident (CVA), | | | | | | unspecified | | | | | | mechanism (HCC) | +--------+ + + + + | 01/28/ | Ancillary | | Jose Perry MD | Cerebrovascular | | 2017 | Orders | | | accident (CVA), | | | | | | unspecified | | | | | | mechanism (HCC) | +--------+ + + + + from Last 3 Months Social History + +-------+ +--------+------+ | Tobacco [...] on file | | + + + Plan of Treatment Not on file Results Not on filefrom Last 3 Months"
--- OUTSIDE RECORDS SUMMARY | ~2018-01-29 | XMS | Encounter Summary ---
Demographics + + + | Address | [address] | | | [place] [address] | + + + | Home Phone | | + + + | Preferred Language | Unknown | + + + | Marital Status | | + + + | Jewish Affiliation | 1041 | + + + | Race | Unknown | + + + | Ethnic Group | Unknown | + + + Author + + + | Author | [facility] | | | and [place] | + + + | Organization | [facility] | | | and [place] | + + + | Address | Unknown | + + + | Phone | Unavailable | + + + Support + + + + + | Name | Relationship | Address | Phone | + + + + + | Lucy Winchester | ECON | [place], [place] | | | | | [address] | | + + + + + | Kellen Briones | ECON | [place] | | | | | [address] | | + + + + + Care Team Providers + +------+ + | Care Pulverizer Mill Operator Name | Role | Phone | [...] [place] | | | | | [phone] | [place] [address] | | +--------+ + + + + [...] [place] | | | | | | [place] [address] | | | | | | [phone] | | | | | | | [...]
--- OUTSIDE RECORDS SUMMARY | ~2018-01-29 | XMS | Encounter Summary ---
Demographics + + + | Address | [address] | | | [place] [address] | + + + | Home Phone [...] + | Author | [facility] | | | and [place] | + + + | Organization | [facility] | | | and [place] | + + + | Address | Unknown | + + + | Phone | Unavailable | + + + Support + + + + + | Name | Relationship | Address | Phone | + + + + + | Lucy Winchester | ECON | [place], [place] | | | | | [address] | | + + + + + | Kellen Briones | ECON | [place] | | | | | [address] | | + + + + + Care Team Providers + +------+ + | Care Lesson Instructor Name | Role | Phone | + +------+ + | Barb Marte | PCP | | + +------+ + Encounter Details +--------+ + + + + | Date | Type | Department | Care Team | Description | +--------+ + + + + | 01/03/ | Hospital | [facility] | Barb Marte PA | Visit for screening | | 2018 | Encounter | MED CTR MAMMOGRAPHY | [address] | mammogram | | | | [address] | [address] [place] | | | | | [place], [place] | [address] | | | | | [address] | | | | | | [phone] | | | +--------+ + + + [...] | + + +--------+---------+ + + | levothyroxine | Take 25 [...] | | | | [address] [place] | | | | | | [place] [address] | | | | | | [phone] | | | | | | | | +--------+---------+ + + + as of this encounter Procedures + +--------+ + + + | Procedure Name | Priori | Date/Time | Associated Diagnosis | Comments | | | ty | | | | + +--------+ + + + | RACHEL TOMOSYN | Routin | 01/03/2018 | Visit for | Results for this | | SCREENING LEFT | e | 1309 PDT | screening mammogram | procedure are in the | | | | | | results section. | + +--------+ + + + in this encounter Results [facility] Tomosynthesis Screening Left (01/03/2018 1309) + + [...] breast | | cancer and mastectomy in 1990. Left breastscreening exam. Asymptomatic, | | postmenopausal.COMPARISON: 2015, 2012 and 2011 analog examsFINDINGS: Breast composition | | is [...]
--- OUTSIDE RECORDS SUMMARY | ~2018-01-29 | XMS | Clinical Summary ---
Demographics + + + | Address | [address] | | | [place] [address] | + + + | Home Phone | | + + + | Preferred Language | Unknown | + + + | Marital Status | | + + + | Temple Affiliation | Unknown | + + + | Race | Unknown | + + + | Ethnic Group | Unknown | + + + Author + + + | Author | [facility] [facility] | + + + | Organization | [facility] [facility] | + + + | Address | Unknown | + + + | Phone | Unavailable | + + + Support + + + + + | Name | Relationship | Address | Phone | + + + + + | Lucy Winchester | ECON | [place], | | | | | [place] [address] | | + + + + + Care Team Providers + +------+ + | Care Teacher Advisor Name | Role | Phone | + +------+ + | Medicine, [place] | PP | Unavailable | | Family [...]
--- OUTSIDE RECORDS SUMMARY | ~2018-01-29 | XMS | Encounter Summary ---
Demographics + + + | Address | [address] | | | [place] [address] | + + + | Home Phone [...] + | Author | [facility] | | | and [place] | + + + | Organization | [facility] | | | and [place] | + + + | Address | Unknown | + + + | Phone | Unavailable | + + + Support + + + + + | Name | Relationship | Address | Phone | + + + + + | Lucy Winchester | ECON | [place], [place] | | | | | [address] | | + + + + + | Kellen Briones | ECON | [place] | | | | | [address] | | + + + + + Care Team Providers + +------+ + | Care Tableau Report Developer Name | Role | Phone | [...] Lauren MATHIAS | | | | | [phone] | [place] [address] | | +--------+ + + + + [...] | | | | | | [place] [address] | | | | | | [phone] | | | | | | | [...]
--- OUTSIDE RECORDS SUMMARY | ~2018-01-29 | XMS | Encounter Summary ---
Demographics + + + | Address | [address] | | | [place] [address] | + + + | Home Phone [...] | Author | [facility] | | | and [place] | + + + | Organization | [facility] | | | and [place] | + + + | Address | Unknown | + + + | Phone | Unavailable | + + + Support + + + + + | Name | Relationship | Address | Phone | + + + + + | Lucy Winchester | ECON | [place], [place] | | | | | [address] | | + + + + + | Kellen Briones | ECON | [place], [place] | | | | | [address] | | + + + + + Care Team Providers + +------+ + | Care Manager Cable Name | Role | Phone | + [...] Lumbar | [facility] Villareal | [address] | | | | | radiculopath | [address] | [place], | | | | | y | [address] | [place] | | | | | Procedures | [address] | [address] | | | | | MRI Lumbar | [place], | Phone: | | | | | Spine wo | [place] [address] | [phone] | | | | | Contrast | Phone: | Fax: | | | | | | [phone] | [phone] | | | | | | Fax: | | | | | | | [phone] | | +--------+--------+ + + + + [...] | | | | | Lumbar | Mono, PA-C | [address] | | | | | radiculopath | [address] | [place], | | | | | y | [address] | [place] | | | | | Procedures | [address] | [address] | | | | | MRI Lumbar | [place], | Phone: | | | | | Spine wo | [place] [address] | [phone] | | | | | Contrast | Phone: | Fax: | | | | | | [phone] | [phone] | | | | | | Fax: | | | | | | | [phone] | | +--------+--------+ + + + + [...] | | | | | Lumbar | Mono, PA-C | [address] | | | | | radiculopath | [address] | [place], | | | | | y | [address] | [place] | | | | | Procedures | [address] | [address] | | | | | MRI Lumbar | [place], | Phone: | | | | | Spine wo | [place] [address] | [phone] | | | | | Contrast | Phone: | Fax: | | | | | | [phone] | [phone] | | | | | | Fax: | | | | | | | [phone] | | +--------+--------+ + + + + Encounter Details +--------+ + + + + | Date | Type | Department | Care Team | Description | +--------+ + + + + | 01/22/ | Hospital | [facility] | Mono Diaz, | Lumbar radiculopathy | | 2018 | Encounter | MED CTR MRI [address] | PA-C [address] | | | | [place], | [address] [place] | | | | | [place] [address] | [place] [address] | | | | | [phone] | | | | | | | [...] | + + +--------+---------+ + + | baclofen | Take 1 tablet by | 60 | 2 | 01/08/20 | | | (LIORESAL) 10 mg | mouth as needed. | tablet | | 18 | | | tablet [...] | Office | Physical Medicine | Mono Daiz, | | | 2018 | Visit | and Rehabilitation | PA-C [address] | | | | | | [address] [place] | | | | | | [place] [address] | | | | | | [phone] | | | | | | | [...] this | | CONTRAST | e | 1328 PDT | radiculopathy | procedure are in the | | | | | | results section. 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
--- OUTSIDE RECORDS SUMMARY | ~2018-01-29 | XMS | Encounter Summary ---
Demographics + + + | Address | [address] | | | [place] [address] | + + + | Home Phone | | + + + | Preferred Language | Unknown | + + + | Marital Status | | + + + | Rastafarian Affiliation | Unknown | + + + | Race | Unknown | + + + | Ethnic Group | Unknown | + + + Author + + + | Author | [facility] | + + + | Organization | [facility] | + + + | Address | Unknown | + + + | Phone | Unavailable | + + + Support + + + + + | Name | Relationship | Address | Phone | + + + + + | Lucy Winchester | ECON | [place], | | | | | [place] [address] | | + + + + + Care Team Providers + +------+ + | Care Family Helper Name | Role | Phone | + +------+ + | Medicine, [place] | PCP | Unavailable | | Family | | | + +------+ + Encounter Details +--------+ + + + + | Date | Type | Department | Care Team | Description | +--------+ + + + + | 01/28/ | Ancillary | [facility] | Jose Perry MD | Cerebrovascular | | 2018 | Procedure | ECHO | [address] | accident (CVA), | | | | | [place], [place] | unspecified | | | | | [id number] | mechanism (HCC) | | | | [...] (HCC) | | + +--------+ + + as of this encounter Visit Diagnoses + + | Diagnosis | + + | Cerebrovascular accident (CVA), unspecified mechanism (HCC) | + +"
--- OUTSIDE RECORDS SUMMARY | ~2018-01-29 | XMS | Clinical Summary ---
Demographics + + + | Address | [address] | | | [place] [address] | + + + | Home Phone [...] Author | [facility] | | | and [place] | + + + | Organization | [facility] | | | and [place] | + + + | Address | Unknown | + + + | Phone | Unavailable | + + + Support + + + + + | Name | Relationship | Address | Phone | + + + + + | Lucy Winchester | ECON | [place], [place] | | | | | [address] | | + + + + + | Kellen Briones | ECON | [place] | | | | | [address] | | + + + + + Care Team Providers + +------+ + | Care Med Aide Name | Role | Phone | + +------+ + | Barb Marte | PP | | + +------+ + [...] + + + Current Medications + + +--------+---------+------+------+-------+ | Prescription | Sig. | Disp. | Refills | Star | End | Statu | | | | | | t | Date | s | | | | | | Date | | | + + +--------+---------+------+------+-------+ | gabapentin | Take 900 mg by mouth | | | | | Activ | | (NEURONTIN) 300 mg | 3 times daily. | | | | | e | | capsule | | | | | | | + + +--------+---------+------+------+-------+ | metFORMIN | Take 500 mg by mouth | | | | | Activ | | (GLUCOPHAGE) 500 mg | nightly. Takes 1 | | | | | e | | tablet | tab in the morning | | | | | | | | and 2 tabs at night | | | | | | + + +--------+---------+------+------+-------+ | citalopram | Take 20 mg by mouth | | | | | Activ | | (CELEXA) 20 mg | Daily. | | | | | e | | tablet | | | | | | | + + +--------+---------+------+------+-------+ | benzonatate | Take 200 mg by mouth | | | | | Activ | | (TESSALON) 200 MG | 3 times daily as | | | | | e | | capsule | needed. | | | | | | + + +--------+---------+------+------+-------+ | amLODIPine | Take 5 mg by mouth | | | | | Activ | | (NORVASC) 5 mg | Daily. | | | | | e | | tablet | | | | | | | + + +--------+---------+------+------+-------+ | buPROPion | Take 150 mg by mouth | | | | | Activ | | (WELLBUTRIN SR) 150 | Daily. | | | | | e | | mg 12 hr tablet | | | | | | | + + +--------+---------+------+------+-------+ | omeprazole | Take 40 mg by mouth | | | | | Activ | | (PRILOSEC) 20 mg | every morning | | | | | e | | capsule | (before breakfast). | | | | | | + + +--------+---------+------+------+-------+ | nitroglycerin | Place 0.4 mg under | | | | | Activ | | (NITROSTAT) 0.4 mg | the tongue every 5 | | | | | e | | SL tablet | minutes as needed. | | | | | | + + +--------+---------+------+------+-------+ | fentaNYL | Place 1 patch onto | | | | | Activ | | (DURAGESIC) 50 | the skin every 72 | | | | | e | | mcg/hr | hours. | | | | | | + + +--------+---------+------+------+-------+ | | TK 1 T PO ONCE D | | 0 | 10/1 | | Activ | | hydroCHLOROthiazide | | | | 0/20 | | e | | (HYDRODIURIL) 12.5 | | | | 16 | | | | MG tablet | | | | | | | + + +--------+---------+------+------+-------+ | simvastatin | TK 1 T PO ONCE D | | 9 | 10/1 | | Activ | | (ZOCOR) 40 mg tablet | | | | 0/20 | | e | | | | | | 16 | | | + + +--------+---------+------+------+-------+ | magnesium, as | Take 250 mg by mouth | | | | | Activ | | oxide, 250 MG tablet | Daily. | | | | | e | + + +--------+---------+------+------+-------+ | levothyroxine | Take 25 mcg by mouth | | 5 | 07/ | | Activ | | (SYNTHROID) 25 mcg | Daily. | | | 1/20 | | e | | tablet | | | | 18 | | | + + +--------+---------+------+------+-------+ | baclofen | Take 1 tablet by | 60 | 2 | 08/0 | | Activ | | (LIORESAL) 10 mg | mouth as needed. | tablet | | 7/20 | | e | | tablet | | | | 18 | | | + + +--------+---------+------+------+-------+ | furosemide (LASIX) | Take 20 mg by mouth | | | | 08/0 | Disco | | 20 mg tablet | Daily. | | | | 7/20 | ntinu | | | | | | | 18 | ed | + + +--------+---------+------+------+-------+ | ferrous sulfate | Take 300 mg by mouth | | | | 08/0 | Disco | | 300 mg/5 mL syrup | Daily. | | | | 7/20 | ntinu | | | | | | | 18 | ed | + + +--------+---------+------+------+-------+ | methocarbamol | Take 1-2 tablets by | 90 | 3 | 02/0 | 08/0 | Disco | | (METHOCARBAMOL) 750 | mouth every 6 hours | tablet | | 1/20 | 7/20 | ntinu | | mg tablet | as needed for Muscle | | | 17 | 18 | ed | | | spasms. | | | | | | + + +--------+---------+------+------+-------+ | | Take 1-2 tablets by | 120 | 0 | 03/1 | 08/0 | Disco | | HYDROcodone-acetamin | mouth every 4 hours | tablet | | 1/20 | 7/20 | ntinu | | ophen (NORCO) 10-325 | as needed for Pain. | | | 17 | 18 | ed | | mg per | | | | | | | | tabletIndications: | | | | | | | | S/P cervical spinal | | | | | | | | fusion | | | | | | | + + +--------+---------+------+------+-------+ | baclofen | Take 10 mg by mouth | | | | 08/ | Disco | | (LIORESAL) 10 mg | as needed. | | | | 12/20 | ntinu | | tablet | | | | | 18 | ed | + + +--------+---------+------+------+-------+ Active Problems + + + | Problem | Noted Date | + + + | H/O Syncope & collape | 03/30/2016 | + + + | H/O CVA/stroke | 03/30/2016 | + + + | H/O SC (myocardial infarction) | 03/30/2016 | + + [...] + | Facet arthritis of cervical region (HCC) | 05/13/2013 | + + + | DDD (degenerative disc disease), cervical | 05/13/2013 | + + + | Lumbar radiculopathy | 07/23/2012 | + + + | DDD (degenerative disc disease), lumbar | 07/23/2012 | + + + | Spinal stenosis of lumbar region with axrbswnpvvtzg-Q6-Z7 level | 07/23/2012 | | moderately severe [...] + | Stroke of unknown etiology (HCC) | 06/04/2012 | + + + | Spondylolisthesis of lumbar region | 06/04/2012 | + + + | Coronary artery disease | | + + + | Diabetes mellitus - ORAL Control | | + + + | Hypertension | | + + + | Stroke (HCC) | | + + + | Syncope and collapse | | + + + | Cancer (HCC) | | + + + + + | Overview: Breast | + + + +---+ | Hyperlipidemia | | + +---+ | SC (myocardial infarction) (HCC) | | + +---+ | GERD (gastroesophageal reflux disease) | | + +---+ | Asthma | | + +---+ | Snoring | | + +---+ | Chronic narcotic use | | + +---+ Encounters +--------+ + + + + | Date | Type | Specialty | Care Team | Description | +--------+ + + + + | 01/23/ | Telephone | | Mono Diaz, | Medication Question | | 2017 | | | PA-C | | +--------+ + + + + | 01/23/ | Telephone | | Mono Diaz, | Results, Imaging | | 2017 | | | NARESH-C | | +--------+ + + + + | 01/22/ | Hospital | | Mono Diaz, | Lumbar radiculopathy | | 2017 | Encounter | | PA-C | | +--------+ + + + + | 01/20/ | Ancillary | | Barb Marte PA | Abnormal mammogram | | 2017 | Orders | | | | +--------+ + + + + | 01/17/ | Ancillary | | Provider, | | | 2018 | Orders | | MD Elva | | +--------+ + + + + | 01/07/ | Office | | Mono Diaz, | Lumbar radiculopathy | | 2017 | Visit | | AYAAN | (Primary Dx); | | | | | | Spinal stenosis of | | | | | | lumbar region with | | | | | | [id number]-X4-N5 | | | | | | level moderately | | | | | | severe | +--------+ + + + + | 01/07/ | Procedure | | | | | 2017 | Pass | | | | +--------+ + + + + | 01/03/ | Hospital | | Barb Marte PA | Visit for screening | | 2017 | Encounter | | | mammogram | +--------+ + + + + | 12/26/ | Ancillary | | Barb Marte PA | Visit for screening | | 2017 | Orders | | | mammogram | +--------+ + + + + | 11/05/ | Hospital | | Irving Becerril, | Status post cervical | | 2017 | Encounter | | DO | spinal fusion | +--------+ + + + + | 11/05/ | Telephone | | Irving Becerril, | Imaging Only | | 2017 | | | DO | | +--------+ + + + + | 11/05/ | Orders Only | | Irving Becerril, | Status post cervical | | 2017 | | | DO | spinal fusion | | | | | | (Primary Dx) | +--------+ + + + + from [...] + + | Pulse | 73 | 01/07/20181449 PDT | + + + + | Temperature | 36.8 C (98.2 F) | 03/31/2016732 PDT | + + + + | Respiratory Rate | 16 | 07/04/2016 1551 PST | + + + + | Oxygen Saturation | 94% | 03/31/2016934 PDT | + + + + | Inhaled Oxygen | - | - | | Concentration | | | + + + + | Weight | 64 kg (141 lb) | 01/07/20181449 PDT | + + + + | Height | 160 cm (5' 3") | 01/07/2018 1450 PDT | + + + + | Body Mass Index | 24.98 | 01/07/2018 1450 PDT | + + + + Plan of Treatment +--------+---------+ + + + | Date | Type | Specialty | Care Team | Description | +--------+---------+ + + + | 02/11/ | Office | | Mono Diaz, | | | 2017 | Visit | | AYAAN [address] | | | | | | [address] [place] | | | | | | [place] [address] | | | | | | [phone] | | | | | | | | +--------+---------+ + + + + + + + + | Health Maintenance | Due Date | Last Done | Comments | + + + + + | Diabetic Eye Exam | | | | | (Bi-Annually) | 0 | | | + + + + + | Diabetic Foot Exam | | | | | | 0 | | | + + + + + | Hemoglobin A1c Q3 | | | | | Months | 0 | | | + + + + + | Vaccine: | | | | | Dtap/Tdap/Td (1 - | 1 | | | | Tdap) | | | | + + + + + | Colorectal Cancer | | | | | Screening | 2 | | | | (Colonoscopy) | | | | + + + + + | Vaccine: Zoster (1 | | | | | of 2) | 2 | | | + + + + + | Vaccine: | | | | | Pneumococcal 65+ | 7 | | | | High/Highest Risk (1 | | | | | of 2 - PCV13) | | | | + + + + + | Microalbumin | | | | | Screening | 5 | | | + + + + + | Statin Therapy | | | | | (optimal intensity) | 5 | | | + + + + + | Vaccine: Influenza | | | | | (#1) | 8 | | | + + + + + Implants + +--------+--------+ +--------+--------+--------+ | Implanted | Type | Area | Manufacture | Device | Expira | Model | | | | | r | | tion | / | | | | | | Identi | Date | Serial | | | | | | fier | | / Lot | + +--------+--------+ +--------+--------+--------+ | Cage Funmilayo Ptc [id number] - | Generi | Anteri | [employer] - | | 10/20/ | [id number] | | [id number]: Qty: 1 on | c | or: | MEDT | | 2023 | 4 / | | 03/30/2016 by Irving Becerril | | Spine | | | | /[id number] | | A, DO | | Cervic | | | | | | | | al | | | | | + +--------+--------+ +--------+--------+--------+ | Cage Funmilayo Ptc [id number] - | Generi | Anteri | [employer] - | | 01/03/ | [id number] | | [id number]: Qty: 1 on | c | or: | MEDT | | 2022 | 4 / | | 03/30/2016 by Irving Becerril | | Spine | | | | /[id number] | | A, DO | | Cervic | | | | | | | | al | | | | | + +--------+--------+ +--------+--------+--------+ | Cage Funmilayo Ptc [id number] - | Generi | Anteri | [employer] - | | 10/20/ | [id number] | | [id number]: Qty: 1 on | c | or: | MEDT | | 2023 | 4 / | | 03/30/2016 by Irving Becerril | | Spine | | | | /[id number] | | A, DO | | Cervic | | | | | | | | al | | | | | + +--------+--------+ +--------+--------+--------+ | Cage Funmilayo Ptc [id number] - | Generi | Anteri | [employer] - | | 10/20/ | [id number] | | [id number]: Qty: 1 on | c | or: | MEDT | | 2023 | 4 / | | 03/30/2016 by Irving Becerril | | Spine | | | | /[id number] | | A, DO | | Cervic | | | | | | | | al | | | | | + +--------+--------+ +--------+--------+--------+ | Putty Bone Get Doris 2.5cc - | Graft | Anteri | [employer] - | | 06/30/ | [id number] | | [id number]: Qty: 1 | | or: | MEDT | | 2019 | | | on 03/30/2016 by Jerrica, | | Spine | | | | /[id number] | | Irving Corona DO | | Cervic | | | | 6 | | | | al | | | | / | + +--------+--------+ +--------+--------+--------+ | Plate Ant [place] Cerv 75mm | Plate | Anteri | [employer] - | | | [id number] | | - [id number]: Qty: 1 | | or: | MEDT | | | / | | on 03/30/2016 by Jerrica, | | Spine | | | | | | Irving Corona DO | | Cervic | | | | | | | | al | | | | | + +--------+--------+ +--------+--------+--------+ | Screw Slf-Drl V/A 4.0x16mm - | Screw | Anteri | SOFAMOR | | | [id number] | | [id number]: Qty: 5 on | | or: | DANEK - DIV | | | / | | 03/30/2016 by Irving Becerril | | Spine | [employer] | | | | | DO Chloe | | Cervic | - SFDK | | | | | | | al | | | | | + +--------+--------+ +--------+--------+--------+ | Screw Slf-Drl V/A 4.0x17mm - | Screw | Anteri | SOFAMOR | | | [id number] | | [id number]: Qty: 4 on | | or: | DANEK - DIV | | | | | 03/30/2016 by Irving Becerril | | Spine | [employer] | | | | | A, DO | | Cervic | - SFDK | | | | | | | al | | | | | + +--------+--------+ +--------+--------+--------+ | Screw Slf-Dr V/A 4.5x15mm - | Screw | Anteri | [employer] - | | | [id number] | | [id number]: Qty: 1 on | | or: | MEDT | | | | | 03/30/2016 by Irving Becerril | | Spine | | | | | | A, DO | | Cervic | | | | | | | | al | | | | [...] + + from Last 3 Months Results MRI Lumbar Spine wo Contrast (01/22/2018 [...] L4 nerve root along with the descending T5hhanh | | roots within the subarticular recesses.L5-S1: Moderate to severe disc space narrowing | | and generalized disc osteophytecomplex combine with dorsal ligamentous and facet | | hypertrophy to moderatelynarrow the foramina to a similar degree, with encroachment on | | the exiting C8ausic roots along with the descending S1 nerve [...] DISEASE AND | | MILD ANTEROLISTHESIS AT [id number] MILD STENOSIS.7. LEVOSCOLIOSIS AND MULTILEVEL FACET | [...] + | Performing | Address | City[facility] | Phone Number | | Organization | | | | + +---------+ + + | [facility] | | | | + +---------+ + + RACHEL Tomosynthesis Screening Left (01/03/2018 1309) + [...] Left breastscreening exam. Asymptomatic, | | postmenopausal.COMPARISON: 2016, 2012 and 2010 analog examsFINDINGS: Breast composition [...] | | | + +---------+ + + XR Cervical Spine 2 or 3 Views [...] Last 3 Months Insurance + +--------+ +--------+ +---------+ | Payer | Benefi | Subscriber | Type | Phone | Address | | | t Plan | ID | | | | | | / | | | | | | | Group | | | | | + +--------+ +--------+ +---------+ | MEDICARE | MEDICA | [id number] | Medica | [phone]- | | | | RE | | re | [phone] | | | | PART A | | | | | | | AND B | | | | | + +--------+ +--------+ +---------+ | KARY | LANCEV | [id number] | [place] | [phone] | | | A | | ity | [phone] | | + +--------+ +--------+ +---------+ + +--------+ +--------+ + + | Guarantor Name | Accoun | Relation to | Date | Phone | Billing Address | | | t Type | Patient | of | | | | | | | | | | + +--------+ +--------+ + + | CLEMENTINE WINCHESTER | Person | Self | [birth year] | Work: | [address] | | al/[address] | | 1940 | [phone] | [place] [address] | | | amanuel | | | [phone] Home: | | | | | | | | | | | | | | [phone] | | | | | | | [phone] | | + +--------+ +--------+ + +
--- OUTSIDE RECORDS SUMMARY | ~2018-01-29 | XMS | Clinical Summary ---
Demographics + + + | Address | [address] | | | [place] [address] | + + + | Home Phone | | + + + | Preferred Language | Unknown | + + + | Marital Status | | + + + | Restorationist Affiliation | 1041 | + + + | Race | Unknown | + + + | Ethnic Group | Unknown | + + + Author + + + | Author | [facility] | | | and [place] | + + + | Organization | [facility] | | | and [place] | + + + | Address | Unknown | + + + | Phone | Unavailable | + + + Support + + + + + | Name | Relationship | Address | Phone | + + + + + | Lucy Winchester | ECON | [place], [place] | | | | | [address] | | + + + + + | Kellen Briones | ECON | [place] | | | | | [address] | | + + + + + Care Team Providers + +------+ + | Care Wooden Boat Builder Name | Role | Phone | + [...] 03/30/2016 | + + + | H/O [place] (myocardial infarction) | 03/30/2016 | + + [...] | Spinal stenosis of lumbar region with ptnonvpxbysar-I5-X6 level | 07/23/2012 | | moderately severe [...] | Hyperlipidemia | | + +---+ | FL (myocardial infarction) (HCC) | | + +---+ [...] with | | | | | | gwfjudzjfypzj-F2-K9 | | | | | | level [...] | | | | | | [place] [address] | | | | | | [phone] | | | | | | | [...] + +--------+--------+ +--------+--------+--------+ | Cage Funmilayo Ptc [id number] - | Generi | Anteri | [employer] - | | 10/20/ | [id number] | | [id number]: Qty: 1 on | c | or: | MEDT | | 2023 | 4 / | | 03/30/2016 by Irving Becerril | | Spine | | | | /[id number] | | A, DO | | Cervic | | | | | | | | al | | | | | + +--------+--------+ +--------+--------+--------+ | Cage Funmilayo Ptc [id number] - | Generi | Anteri | [employer] - | | 01/03/ | [id number] | | [id number]: Qty: 1 on | c | or: | MEDT | | 2022 | 4 / | | 03/30/2016 by Irving Becerril | | Spine | | | | /[id number] | | A, DO | | Cervic | | | | | | | | al | | | | | + +--------+--------+ +--------+--------+--------+ | Cage Funmilayo Ptc [id number] - | Generi | Anteri | [employer] - | | 10/20/ | [id number] | | [id number]: Qty: 1 on | c | or: | MEDT | | 2023 | 4 / | | 03/30/2016 by Irving Becerril | | Spine | | | | /[id number] | | A, DO | | Cervic | | | | | | | | al | | | | | + +--------+--------+ +--------+--------+--------+ | Cage Funmilayo Ptc [id number] - | Generi | Anteri | [employer] - | | 10/20/ | [id number] | | [id number]: Qty: 1 on | c | or: [...] | [employer] - | | 06/30/ | [id number] | | [id number]: Qty: 1 | | or: | MEDT | | 2019 | | | on 03/30/2016 by Jerrica, | | Spine | | | | /[id number] | | Irving Corona DO | | Cervic | | | | 6 | | | | al | | | | / | + +--------+--------+ +--------+--------+--------+ | Plate Ant [place] Cerv 75mm | Plate | Anteri | [employer] - | | | [id number] | | - [id number]: Qty: 1 | | or: | MEDT [...] | Anteri | [employer]OR | | | [id number] | | [id number]: Qty: 5 on | | or: | [...] | Anteri | SOFAMOR | | | [id number] | | [id number]: Qty: 4 on | | or: | [...] Anteri | [employer] - | | | [id number] | | [id number]: Qty: 1 on | | or: | [...] L4 nerve root along with the descending N1lkobc | | roots within the subarticular recesses.L5-S1: Moderate to severe disc space narrowing | | and generalized disc osteophytecomplex combine with dorsal ligamentous and facet | | hypertrophy to moderatelynarrow the foramina to a similar degree, with encroachment on | | the exiting G8ikhvb roots along with the descending S1 nerve [...] DISEASE AND | | MILD ANTEROLISTHESIS AT [id number] MILD STENOSIS.7. LEVOSCOLIOSIS AND MULTILEVEL FACET | [...] + + | Performing | Address | City/[facility] | Phone Number | | [...] +--------+ +---------+ | MEDICARE | MEDICA | [id number] | Medica | [phone]- | | | | RE | | re | [phone] | | | | PART A | | | | | | | AND B | | | | | + +--------+ +--------+ +---------+ | KARY | LANCEV | [id number] | [place] | [phone] | | | A | | [...] | al/[address] | | 1940 | [phone] | [place] [address] | | | amanuel | | | [address] Home: | | | | | | | | | | | | | | [phone] | | | | | | | [phone] | | + +--------+ +--------+ + +
--- OUTSIDE RECORDS SUMMARY | ~2018-01-29 | XMS | Clinical Summary ---
Demographics + + + | Address | [address] | | | [place] [address] | + + + | Home Phone | | + + + | Preferred Language | Unknown | + + + | Marital Status | | + + + | Orthodox Affiliation | Unknown | + + + | Race | Unknown | + + + | Ethnic Group | Unknown | + + + Author + + + | Author | [facility] | + + + | Organization | [facility] | + + + | Address | Unknown | + + + | Phone | Unavailable | + + + Support + + + + + | Name | Relationship | Address | Phone | + + + + + | Lucy Winchester | ECON | [place], | | | | | [place] [address] | | + + + + + Care Team Providers + +------+ + | Care Applications Coordinator Name | Role | Phone | + +------+ + | Medicine, [place] | PP | Unavailable | | Family [...]
--- OUTSIDE RECORDS SUMMARY | ~2018-01-29 | XMS | Encounter Summary ---
Demographics + + + | Address | [address] | | | [place] [address] | + + + | Home Phone | | + + + | Preferred Language | Unknown | + + + | Marital Status | | + + + | Caodaism Affiliation | Unknown | + + + | Race | Unknown | + + + | Ethnic Group | Unknown | + + + Author + + + | Author | [facility] | + + + | Organization | [facility] | + + + | Address | Unknown | + + + | Phone | Unavailable | + + + Support + + + + + | Name | Relationship | Address | Phone | + + + + + | Lucy Winchester | ECON | [place], | | | | | [place] [address] | | + + + + + Care Team Providers + +------+ + | Care Mixer And Blender Name | Role | Phone | + +------+ + | Medicine, [place] | PCP | Unavailable | | Family | | | + +------+ + Encounter Details +--------+ + + + + | Date | Type | Department | Care Team | Description | +--------+ + + + + | 01/28/ | Ancillary | [facility] | Jose Perry MD | Cerebrovascular | | 2018 | Orders | Cardiology [facility] | [address] [facility] | accident (CVA), | | | | [address] | [place] | unspecified | | | | [place], [place] | [address] | mechanism (HCC) | | | | [address] | | | | | | [phone] | | | +--------+ + + + [...] this encounter Plan of Treatment Not on fileas of this encounter Visit Diagnoses + + | Diagnosis | + + | Cerebrovascular accident (CVA), unspecified mechanism (HCC) | + +"
--- OUTSIDE RECORDS SUMMARY | ~2018-01-29 | XMS | Encounter Summary ---
Demographics + + + | Address | [address] | | | [place] [address] | + + + | Home Phone | | + + + | Preferred Language | Unknown | + + + | Marital Status | | + + + | Protestant Affiliation | 1041 | + + + | Race | Unknown | + + + | Ethnic Group | Unknown | + + + Author + + + | Author | [facility] | | | and [place] | + + + | Organization | [facility] | | | and [place] | + + + | Address | Unknown | + + + | Phone | Unavailable | + + + Support + + + + + | Name | Relationship | Address | Phone | + + + + + | Lucy Winchester | ECON | [place], [place] | | | | | [address] | | + + + + + | Kellen Briones | ECON | [place] | | | | | [address] | | + + + + + Care Team Providers + +------+ + | Care Oil Heater Operator Name | Role | Phone | + +------+ + | Barb Marte | PCP | | + +------+ + Encounter Details +--------+ + + + + | Date | Type | Department | Care Team | Description | +--------+ + + + + | 12/26/ | Ancillary | [facility] | Barb Marte PA | Visit for screening | | 2018 | Orders | MED CTR XRAY [address] | [address] | mammogram | | | | [place] | [address] [place], [place] | | | | | [place] [address] | [id number] | | | | | [phone] | | | +--------+ + + + [...] [place] | | | | | | [place] [address] | | | | | | [phone] | | | | | | | [...]
--- OUTSIDE RECORDS SUMMARY | ~2018-01-29 | XMS | Encounter Summary ---
Demographics + + + | Address | [address] | | | [place] [address] | + + + | Home Phone [...] | Author | [facility] | | | and Ottonielana | + + + | Organization | [facility] | | | and [place]iel[place] | + + + | Address | Unknown | + + + | Phone | Unavailable | + + + Support + + + + + | Name | Relationship | Address | Phone | + + + + + | Lucy Winchester | ECON | [place], [place] | | | | | [address] | | + + + + + | Kellen Briones | ECON | [place] | | | | | [address] | | + + + + + Care Team Providers + +------+ + | Care Laboratory Miller Name | Role | Phone | + +------+ + | Barb Marte | PCP | | + +------+ + Encounter Details +--------+ + + + + | Date | Type | Department | Care Team | Description | +--------+ + + + + | 12/26/ | Ancillary | [facility] | Barb Marte PA | Visit for screening | | 2018 | Orders | MED CTR XRAY [address] | [address] | mammogram | | | | [place] | [address], [place] | | | | | [place] [address] | [id number] | | | | | [phone] | | | +--------+ + + + [...] [place] | | | | | | [place] [address] | | | | | | [phone] | | | | | | | [...]
--- OUTSIDE RECORDS SUMMARY | ~2018-01-29 | XMS | Encounter Summary ---
Demographics + + + | Address | [address] | | | [place] [address] | + + + | Home Phone [...] + | Author | [facility] | | | and [place]ielana | + + + | Organization | [facility] | | | and [place] | + + + | Address | Unknown | + + + | Phone | Unavailable | + + + Support + + + + + | Name | Relationship | Address | Phone | + + + + + | Lucy Winchester | ECON | [place], [place] | | | | | [address] | | + + + + + | Kellen Briones | ECON | [place] | | | | | [address] | | + + + + + Care Team Providers + +------+ + | Care Mini Shifter Name | Role | Phone | + [...] + + | 01/23/ | Telephone | [facility] [place] | Mono Diaz, | Results, Imaging | | 2017 | | PHYSIATRY [address] | PA-C [address] | | | | | [place], | [address] [place] | | | | | [place] [address] | [place] [address] | | | | | [phone] | [phone] | | | | | | | [...] [place] | | | | | | [place] [address] | | | | | | [phone] | | | | | | | | +--------+---------+ + + + as of this encounter Visit Diagnoses Not on filein this encounter"
--- OUTSIDE RECORDS SUMMARY | ~2018-01-29 | XMS | Encounter Summary ---
Demographics + + + | Address | [address] | | | [place] [address] | + + + | Home Phone [...] + + | Author | [facility] | | | and [place]iel[place] | + + + | Organization | [facility] | | | and [place] | + + + | Address | Unknown | + + + | Phone | Unavailable | + + + Support + + + + + | Name | Relationship | Address | Phone | + + + + + | Lucy Winchester | ECON | [place], [place] | | | | | [address] | | + + + + + | Kellen Briones | ECON | [place] | | | | | [address] | | + + + + + Care Team Providers + +------+ + | Care Manager Water Wastewater Name | Role | Phone | + +------+ + | Barb Marte | PCP | | + +------+ + Encounter Details +--------+ + + + + | Date | Type | Department | Care Team | Description | +--------+ + + + + | 11/05/ | Hospital | [facility] | Irving Becerril, | Status post cervical | | 2018 | Encounter | MED CTR XRAY [address] | DO [address] | spinal fusion | | | | [place] | [address] [place], | | | | | [place] [address] | [place] [address] | | | | | [phone] | [phone] | | | | | | | [...] [place] | | | | | | [place] [address] | | | | | | [phone] | | | | | | | [...]
--- OUTSIDE RECORDS SUMMARY | ~2018-01-29 | XMS | Encounter Summary ---
Demographics + + + | Address | [address] | | | [place] [address] | + + + | Home Phone [...] + | Author | [facility] | | | and [place]tonielana | + + + | Organization | [facility] | | | and [place] | + + + | Address | Unknown | + + + | Phone | Unavailable | + + + Support + + + + + | Name | Relationship | Address | Phone | + + + + + | Lucy Winchester | ECON | [place], [place] | | | | | [address] | | + + + + + | Kellen Briones | ECON | [place] | | | | | [address] | | + + + + + Care Team Providers + +------+ + | Care Medical Records Manager Name | Role | Phone | [...] [address] | | | | | [place] | [address] | | | | | [place] [address] | [address] | | | | | [phone] | | | +--------+ + + + [...] [place] | | | | | | [place] [address] | | | | | | [phone] | | | | | | | | +--------+---------+ + + + + +--------+ + + [...]
--- OUTSIDE RECORDS SUMMARY | ~2018-01-29 | XMS | Encounter Summary ---
Demographics + + + | Address | [address] | | | [place] [address] | + + + | Home Phone [...] | Author | [facility] | | | and [place]ielana | + + + | Organization | [facility] | | | and [place] | + + + | Address | Unknown | + + + | Phone | Unavailable | + + + Support + + + + + | Name | Relationship | Address | Phone | + + + + + | Lucy Winchester | ECON | [place], [place] | | | | | [address] | | + + + + + | Kellen Briones | ECON | [place] | | | | | [address] | | + + + + + Care Team Providers + +------+ + | Care Access Services Assistant Name | Role | Phone | [...] [address] | | | | | [place] | [address] | | | | | [place] [address] | [address] | | | | | [phone] | | | +--------+ + + + [...] | | | | | | [place] [address] | | | | | | [phone] | | | | | | | [...]
--- OUTSIDE RECORDS SUMMARY | ~2018-01-29 | XMS | Clinical Summary ---
Demographics + + + | Address | [address] | | | [place] [address] | + + + | Home Phone [...] | Author | [facility] | | | and [place]tonielana | + + + | Organization | [facility] | | | and [place] | + + + | Address | Unknown | + + + | Phone | Unavailable | + + + Support + + + + + | Name | Relationship | Address | Phone | + + + + + | Lucy Winchester | ECON | [place], [place] | | | | | [address] | | + + + + + | Kellen Briones | ECON | [place] | | | | | [address] | | + + + + + Care Team Providers + +------+ + | Care Harbor Pilot Name | Role | Phone | [...] 03/30/2016 | + + + | H/O CT (myocardial infarction) | 03/30/2016 | + + [...] | Spinal stenosis of lumbar region with keqyjgbgexbvq-Z6-E3 level | 07/23/2012 | | moderately severe [...] | Hyperlipidemia | | + +---+ | CT (myocardial infarction) (HCC) | | + +---+ [...] with | | | | | | immdzptdndwjj-O9-C2 | | | | | | level [...] | | | | | | [place] [address] | | | | | | [phone] | | | | | | | [...] + +--------+--------+ +--------+--------+--------+ | Cage Funmilayo Ptc [id number] - | Generi | Anteri | [employer] - | | 10/20/ | [id number] | | [id number]: Qty: 1 on | c | or: | MEDT | | 2023 | 4 / | | 03/30/2016 by Irving Becerril | | Spine | | | | /[id number] | | A, DO | | Cervic | | | | | | | | al | | | | | + +--------+--------+ +--------+--------+--------+ | Cage Funmilayo Ptc [id number] - | Generi | Anteri | [employer] - | | 01/03/ | [id number] | | [id number]: Qty: 1 on | c | or: | MEDT | | 2022 | 4 / | | 03/30/2016 by Irving Becerril | | Spine | | | | /[id number] | | A, DO | | Cervic | | | | | | | | al | | | | | + +--------+--------+ +--------+--------+--------+ | Cage Funmilayo Ptc [id number] - | Generi | Anteri | [employer] - | | 10/20/ | [id number] | | [id number]: Qty: 1 on | c | or: | MEDT | | 2023 | 4 / | | 03/30/2016 by Irving Becerril | | Spine | | | | /[id number] | | A, DO | | Cervic | | | | | | | | al | | | | | + +--------+--------+ +--------+--------+--------+ | Cage Funmilayo Ptc [id number] - | Generi | Anteri | [employer] - | | 10/20/ | [id number] | | [id number]: Qty: 1 on | c | or: [...] | [employer] - | | 06/30/ | [id number] | | [id number]: Qty: 1 | | or: | MEDT | | 2019 | | | on 03/30/2016 by Jerrica, | | Spine | | | | /[id number] | | Irving Corona DO | | Cervic | | | | 6 | | | | al | | | | / | + +--------+--------+ +--------+--------+--------+ | Plate Ant Gila Cerv 75mm | Plate | Anteri | [employer] - | | | [id number] | | - [id number]: Qty: 1 | | or: | MEDT [...] | Anteri | SOFAMOR | | | [id number] | | [id number]: Qty: 5 on | | or: | [...] | Anteri | [employer] | | | [id number] | | [id number]: Qty: 4 on | | or: | [...] Anteri | [employer] - | | | [id number] | | [id number]: Qty: 1 on | | or: | [...] L4 nerve root along with the descending N5hwzlf | | roots within the subarticular recesses.L5-S1: Moderate to severe disc space narrowing | | and generalized disc osteophytecomplex combine with dorsal ligamentous and facet | | hypertrophy to moderatelynarrow the foramina to a similar degree, with encroachment on | | the exiting G5xkaci roots along with the descending S1 nerve [...] DISEASE AND | | 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 LEVOSCOLIOSIS AND MULTILEVEL FACET | [...] Performing | Address | City/State[facility] | Phone Number | | [...] +--------+ +---------+ | MEDICARE | MEDICA | [id number] | Medica | [phone] | | | | RE | | re | [phone] | | | | PART A | | | | | | | AND B | | | | | + +--------+ +--------+ +---------+ | KARY | LANCEV | [id number] | [place] | [phone] | | | A | | [...] | al/John Paul | | 1940 | [phone] | [place] [address] | | | amanuel | | | [phone]: | | | | | | | | | | | | | | [phone] | | | | | | | [phone] | | + +--------+ +--------+ + +
--- OUTSIDE RECORDS SUMMARY | ~2018-01-29 | XMS | Encounter Summary ---
Demographics + + + | Address | [address] | | | [place] [address] | + + + | Home Phone [...] | [facility] | | | and Ottonielana | + + + | Organization | [facility] | [...] [place], [place] | | | | | [address] | | + + + + + | Kellen Briones | ECON | [place] | | | | | [address] | | + + + + + Care Team Providers + +------+ + | Care Travel Occupational Therapist Name | Role | Phone | + +------+ + | Barb Marte | PCP | | + +------+ + Encounter Details +--------+ + + + + | Date | Type | Department | Care Team | Description | +--------+ + + + + | 11/05/ | Hospital | [facility] | Irving Becerril, | Status post cervical | | 2018 | Encounter | MED CTR XRAY [address] | DO [address] | spinal fusion | | | | [place] | [address] [place], | | | | | [place] [address] | [place] [address] | | | | | [phone] | [phone] | | | | | | | [...] RHYS | | | | | | [place] [address] | | | | | | [phone] | | | | | | | [...]
--- OUTSIDE RECORDS SUMMARY | ~2018-01-29 | XMS | Encounter Summary ---
Demographics + + + | Address | [address] | | | [place] [address] | + + + | Home Phone [...] Author | [facility] | | | and [place]tonielana | + + + | Organization | [facility] | | | and [place]ielana | + + + | Address | Unknown | + + + | Phone | Unavailable | + + + Support + + + + + | Name | Relationship | Address | Phone | + + + + + | Lucy Winchester | ECON | [place], [place] | | | | | [address] | | + + + + + | Kellen Briones | ECON | [place], [place] | | | | | [address] | | + + + + + Care Team Providers + +------+ + | Care Bowling Ball Molder Name | Role | Phone [...] W | | | | | | [place], | | | | | | [place] [address] | | | | | | [phone] | | | +--------+ + + + [...] | | | | | [place] [address] | | | | | | [phone] | | | | | | | | +--------+---------+ + + + as of this encounter Visit Diagnoses Not on filein this encounter"
--- OUTSIDE RECORDS SUMMARY | ~2018-01-29 | XMS | Encounter Summary ---
Demographics + + + | Address | [address] | | | [place] [address] | + + + | Home Phone [...] | Author | [facility] | | | and [place]ielana | + + + | Organization | [facility] | | | and [place]iel[place] | + + + | Address | Unknown | + + + | Phone | Unavailable | + + + Support + + + + + | Name | Relationship | Address | Phone | + + + + + | Lucy Winchester | ECON | [place], [place] | | | | | [address] | | + + + + + | Kellen Briones | ECON | [place], [place] | | | | | [address] | | + + + + + Care Team Providers + +------+ + | Care Plant Protection Supervisor Name | Role | Phone | [...] + + | 11/05/ | Telephone | [facility] [place] | Irving Becerril, | Imaging Only | | 2017 | | NEUROSURGERY [address] | DO [address] | | | | | [address] | [address] [place], | | | | | [place] | [place] [address] | | | | | [address] | [phone] | | | | | [phone] | | | +--------+ + + + [...] | | | | | | [place] [address] | | | | | | [phone] | | | | | | | | +--------+---------+ + + + as of this encounter Visit Diagnoses Not on filein this encounter"
--- OUTSIDE RECORDS SUMMARY | ~2018-01-29 | XMS | Encounter Summary ---
Demographics + + + | Address | [address] | | | [place] [address] | + + + | Home Phone [...] | Author | [facility] | | | and Ottonielana | + + + | Organization | [facility] | | | and [place]ielana | + + + | Address | Unknown | + + + | Phone | Unavailable | + + + Support + + + + + | Name | Relationship | Address | Phone | + + + + + | Lucy Winchester | ECON | [place], [place] | | | | | [address] | | + + + + + | Kellen Briones | ECON | [place], [place] | | | | | [address] | | + + + + + Care Team Providers + +------+ + | Care Interior Paneler Name | Role | Phone | + [...] Lumbar | AYAAN Villareal | [address] | | | | | radiculopath | [address] | [place], | | | | | y | [address] | [place] | | | | | Procedures | [address] | [address] | | | | | MRI Lumbar | [place], | Phone: | | | | | Spine wo | [place] [address] | [phone] | | | | | Contrast | Phone: | Fax: | | | | | | [phone] | [phone] | | | | | | Fax: | | | | | | | [phone] | | +--------+--------+ + + + + [...] Lumbar | Mono, PA-C | [address] | | | | | radiculopath | [address] | [place], | | | | | y | [address] | [place] | | | | | Procedures | [address] | [address] | | | | | MRI Lumbar | [place], | Phone: | | | | | Spine wo | [place] [address] | [phone] | | | | | Contrast | Phone: | Fax: | | | | | | [phone] | [phone] | | | | | | Fax: | | | | | | | [phone] | | +--------+--------+ + + + + [...] Lumbar | Mono, PA-C | [address] | | | | | radiculopath | [address] | [place], | | | | | y | [address] | [place] | | | | | Procedures | [address] | [address] | | | | | MRI Lumbar | [place], | Phone: | | | | | Spine wo | [place] [address] | [phone] | | | | | Contrast | Phone: | Fax: | | | | | | [phone] | [phone] | | | | | | Fax: | | | | | | | [phone] | | +--------+--------+ + + + + Encounter Details +--------+ + + + + | Date | Type | Department | Care Team | Description | +--------+ + + + + | 01/22/ | Hospital | [facility] | Mono Diaz, | Lumbar radiculopathy | | 2018 | Encounter | MED CTR MRI [address] | PA-C [address] | | | | | [address], | [address] [place] | | | | | [place] [address] | [place] [address] | | | | | [phone] | [phone] | | | | | | | [...] | | | | | | [place] [address] | | | | | | [phone] | | | | | | | [...] L4 nerve root along with the descending L6xtwuw | | roots within the subarticular recesses.L5-S1: Moderate to severe disc space narrowing | | and generalized disc osteophytecomplex combine with dorsal ligamentous and facet | | hypertrophy to moderatelynarrow the foramina to a similar degree, with encroachment on | | the exiting N0wgepk roots along with the descending S1 nerve [...] DISEASE AND | | MILD ANTEROLISTHESIS AT K12-[id number] MILD STENOSIS.7. LEVOSCOLIOSIS AND MULTILEVEL FACET | [...]
--- OUTSIDE RECORDS SUMMARY | ~2018-01-29 | XMS | Encounter Summary ---
Demographics + + + | Address | [address] | | | [place] [address] | + + + | Home Phone [...] | Author | [facility] | | | and Ottonielana | + + + | Organization | [facility] | | | and [place]tonielana | + + + | Address | Unknown | + + + | Phone | Unavailable | + + + Support + + + + + | Name | Relationship | Address | Phone | + + + + + | Lucy Winchester | ECON | [place], [place] | | | | | [address] | | + + + + + | Kellen Briones | ECON | [place] | | | | | [address] | | + + + + + Care Team Providers + +------+ + | Care Clearing House Clerk Name | Role | Phone | [...] + + | 01/23/ | Telephone | [facility] [place] [place] | Mono Diaz, | Results, Imaging | | 2017 | | PHYSIATRY [address] | PA-C [address] | | | | | [place], | [address] [place] | | | | | [place] [address] | [place] [address] | | | | | [phone] | [phone] | | | | | | | [...] [place]AY | | | | | | [place] [address] | | | | | | [phone] | | | | | | | | +--------+---------+ + + + as of this encounter Visit Diagnoses Not on filein this encounter"
--- OUTSIDE RECORDS SUMMARY | ~2018-01-29 | XMS | Encounter Summary ---
Demographics + + + | Address | [address] | | | [place] [address] | + + + | Home Phone [...] + + | Author | [facility] | | | and Ottonielana | + + + | Organization | [facility] | | | and [place]ielana | + + + | Address | Unknown | + + + | Phone | Unavailable | + + + Support + + + + + | Name | Relationship | Address | Phone | + + + + + | Lucy Winchester | ECON | [place], [place] | | | | | [address] | | + + + + + | Kellen Briones | ECON | [place], [place] | | | | | [address] | | + + + + + Care Team Providers + +------+ + | Care Assistant Media Planner Name | Role | Phone | [...] Lumbar | AYAAN Villareal | [address] | | | | | radiculopath | [address] | [place], | | | | | y | [address] | [place] | | | | | Procedures | [address] | [address] | | | | | MRI Lumbar | [place], | Phone: | | | | | Spine wo | [place] [address] | [phone] | | | | | Contrast | Phone: | Fax: | | | | | | [phone] | [phone] | | | | | | Fax: | | | | | | | [phone] | | +--------+--------+ + + + + Reason for Visit + + + | Reason | Comments | + + + | Follow-up | Low Back Pain | + + + Encounter Details +--------+---------+ + + + | Date | Type | Department | Care Team | Description | +--------+---------+ + + + | 01/07/ | Office | [facility] | Mono Diaz, | Lumbar radiculopathy | | 2018 | Visit | PHYSIATRY [address] | PA-C [address] | (Primary Dx); | | | | [place], | [address] [place] | Spinal stenosis of | | | | [place] [address] | [place] [address] | lumbar region with | | | | [phone] | [phone] | bvexojloxqjmm-E3-C8 | | | | | | level [...] press against a nerve. Date Last Reviewed: 03/06/201519992839-2154 [employer] [place] [address], [place] [address]. All righ ts reserved. This information is [...] and narcotic medications use; she currently uses [place], Flexeril and [place] bapentin. 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 She has appropriate fund of knowledge [...] (multiple sessions over the years) and care nurse rn. Unfortunately Clementine Winchester continues to have significant [...] 01/07/18 in this encounter Plan of Treatment +--------+---------+ + + + | Date | Type | Specialty | Care Team | Description | +--------+---------+ + + + | 02/11/ Office | Physical Medicine | Mono Diza, | | | 2018 | Visit | and Rehabilitation | AYAAN [address] | | | | | | [address] [place] | | | | | | [place] [address] | | | | | | [phone] | | | | | | | [...] L4 nerve root along with the descending M4netay | | roots within the subarticular recesses.L5-S1: Moderate to severe disc space narrowing | | and generalized disc osteophytecomplex combine with dorsal ligamentous and facet | | hypertrophy to moderatelynarrow the foramina to a similar degree, with encroachment on | | the exiting K9fmmwf roots along with the descending S1 nerve [...] DISEASE AND | | MILD ANTEROLISTHESIS AT K81-[id number] MILD STENOSIS.7. LEVOSCOLIOSIS AND MULTILEVEL FACET | [...] | Spinal stenosis of lumbar region with eclmbgxomqonw-T6-O4 level moderately severe | + + | Spinal stenosis, lumbar region, without neurogenic claudication | + +
--- OUTSIDE RECORDS SUMMARY | ~2018-01-29 | XMS | Encounter Summary ---
Demographics + + + | Address | [address] | | | [place] [address] | + + + | Home Phone [...] + | Author | [facility] | | | and Ottonielana | + + + | Organization | [facility] | | | and [place] | + + + | Address | Unknown | + + + | Phone | Unavailable | + + + Support + + + + + | Name | Relationship | Address | Phone | + + + + + | Lucy Winchester | ECON | [place], [place] | | | | | [address] | | + + + + + | Kellen Briones | ECON | [place] | | | | | [address] | | + + + + + Care Team Providers + +------+ + | Care Production Scheduler Name | Role | Phone | + +------+ + | Barb Marte | PCP | | + +------+ + Encounter Details +--------+ + + + + | Date | Type | Department | Care Team | Description | +--------+ + + + + | 11/05/ | Hospital | [facility] | Irving Becerril, | Status post cervical | | 2018 | Encounter | MED CTR XRAY [address] | DO [address] | spinal fusion | | | | [place] | [address] [place], | | | | | [place] [address] | [place] [address] | | | | | [phone] | [phone] | | | | | | | [...] RHYS | | | | | | [place] [address] | | | | | | [phone] | | | | | | | [...]
--- OUTSIDE RECORDS SUMMARY | ~2018-01-29 | XMS | Encounter Summary ---
Demographics + + + | Address | [address] | | | [place] [address] | + + + | Home Phone | | + + + | Preferred Language | Unknown | + + + | Marital Status | | + + + | Sabianist Affiliation | Unknown | + + + | Race | Unknown | + + + | Ethnic Group | Unknown | + + + Author + + + | Author | [facility] | + + + | Organization | [facility] | + + + | Address | Unknown | + + + | Phone | Unavailable | + + + Support + + + + + | Name | Relationship | Address | Phone | + + + + + | Lucy Winchester | ECON | [place], | | | | | [place] [address] | | + + + + + Care Team Providers + +------+ + | Care Automotive Manager Name | Role | Phone | + +------+ + | Medicine, Isabella | PCP | Unavailable | | Family [...] | unspecified | | | | | [id number] | mechanism (HCC) | | | | [...]
--- OUTSIDE RECORDS SUMMARY | ~2018-01-29 | XMS | Encounter Summary ---
Demographics + + + | Address | [address] | | | [place] [address] | + + + | Home Phone [...] Author | [facility] | | | and Ottonielana | + + + | Organization | [facility] | | | and Ottonielana | + + + | Address | Unknown | + + + | Phone | Unavailable | + + + Support + + + + + | Name | Relationship | Address | Phone | + + + + + | Lucy Winchester | ECON | [place], [place] | | | | | [address] | | + + + + + | Kellen Briones | ECON | [place] | | | | | [address] | | + + + + + Care Team Providers + +------+ + | Care Engineering Scientist Name | Role | Phone | + +------+ + | Barb Marte | PCP | | + +------+ + Encounter Details +--------+ + + + + | Date | Type | Department | Care Team | Description | +--------+ + + + + | 01/03/ | Hospital | [facility] | Barb Marte PA | Visit for screening | | 2018 | Encounter | MED CTR MAMMOGRAPHY | [address] | mammogram | | | | [address] | [address] [place] | | | | | [place], [place] | [address] | | | | | [address] | | | | | | [phone] | | | +--------+ + + + [...] RHYS | | | | | | [place] [address] | | | | | | [phone] | | | | | | | [...] + + + in this encounter Results [facility] Tomosynthesis Screening Left (01/03/2018 1309) + + [...]
--- OUTSIDE RECORDS SUMMARY | ~2018-01-29 | XMS | Encounter Summary ---
Demographics + + + | Address | [address] | | | [place] [address] | + + + | Home Phone [...] | Author | [facility] | | | and Ottonielana | + + + | Organization | [facility] | | | and [place]ielana | + + + | Address | Unknown | + + + | Phone | Unavailable | + + + Support + + + + + | Name | Relationship | Address | Phone | + + + + + | Lucy Winchester | ECON | [place], [place] | | | | | [address] | | + + + + + | Kellen Briones | ECON | [place], [place] | | | | | [address] | | + + + + + Care Team Providers + +------+ + | Care Rolling Mill Operator Helper Name | Role | Phone | [...] + + | 01/23/ | Telephone | [facility] | Mono Diaz, | Medication Question | | 2017 | | PHYSIATRY [address] | PA-C [address] | | | | | [place], | [address] [place] | | | | | [place] [address] | [place] [address] | | | | | [phone] | [phone] | | | | | | | [...] [place]NALLY | | | | | | RHYS | | | | | | [place] [address] | | | | | | [phone] | | | | | | | | +--------+---------+ + + + as of this encounter Visit Diagnoses Not on filein this encounter"
--- OUTSIDE RECORDS SUMMARY | ~2018-01-29 | XMS | Encounter Summary ---
Demographics + + + | Address | [address] | | | [place] [address] | + + + | Home Phone [...] | Author | [facility] | | | and Ottonielana | + + + | Organization | [facility] | | | and [place]ielana | + + + | Address | Unknown | + + + | Phone | Unavailable | + + + Support + + + + + | Name | Relationship | Address | Phone | + + + + + | Lucy Winchester | ECON | [place], [place] | | | | | [address] | | + + + + + | Kellen Briones | ECON | [place], [place] | | | | | [address] | | + + + + + Care Team Providers + +------+ + | Care Contact Assembler Name | Role | Phone | [...] Lumbar | AYAAN Villareal | [address] | | | | | radiculopath | [address] | [place], | | | | | y | [address] | [place] | | | | | Procedures | [address] | [address] | | | | | MRI Lumbar | [place], | Phone: | | | | | Spine wo | [place] [address] | [phone] | | | | | Contrast | Phone: | Fax: | | | | | | [phone] | [phone] | | | | | | Fax: | | | | | | | [phone] | | +--------+--------+ + + + + Reason for Visit + + + | Reason | Comments | + + + | Follow-up | Low Back Pain | + + + Encounter Details +--------+---------+ + + + | Date | Type | Department | Care Team | Description | +--------+---------+ + + + | 01/07/ | Office | [facility] | Mono Diaz, | Lumbar radiculopathy | | 2018 | Visit | PHYSIATRY [address] | PA-C [address] | (Primary Dx); | | | | [place], | [address] [place] | Spinal stenosis of | | | | [place] [address] | [place] [address] | lumbar region with | | | | [phone] | [id number] | | | | | | level [...] press against a nerve. Date Last Reviewed: 03/06/201519994787-7912 The [employer]. [address] [place] [address], [place] [address]. All righ ts reserved. This information is [...] narcotic medications use; she currently uses [place], Flexeril and ga bapentin. She is taking [...] apparent deficits with short or roasterman memory. 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 Unfortunately Clementine Winchester continues to have [...] 02/11/ Office | Physical Medicine | Mono Diaz, | | | 2018 | Visit | and Rehabilitation | AYAAN [address] | | | | | | [address] [place] | | | | | | [place] [address] | | | | | | [phone] | | | | | | | [...] L4 nerve root along with the descending L3qgdub | | roots within the subarticular recesses.L5-S1: Moderate to severe disc space narrowing | | and generalized disc osteophytecomplex combine with dorsal ligamentous and facet | | hypertrophy to moderatelynarrow the foramina to a similar degree, with encroachment on | | the exiting Q9vggks roots along with the descending S1 nerve [...] DISEASE AND | | 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 LEVOSCOLIOSIS AND MULTILEVEL FACET | [...] | Spinal stenosis of lumbar region with xfrjfhowmhgxn-X8-S8 level moderately severe | + + | Spinal stenosis, lumbar region, without neurogenic claudication | + +
--- OUTSIDE RECORDS SUMMARY | ~2018-01-29 | XMS | Encounter Summary ---
Demographics + + + | Address | [address] | | | [place] [address] | + + + | Home Phone [...] Author | [facility] | | | and Ottonielana | + + + | Organization | [facility] | | | and [place]ielana | + + + | Address | Unknown | + + + | Phone | Unavailable | + + + Support + + + + + | Name | Relationship | Address | Phone | + + + + + | Lucy Winchester | ECON | [place], [place] | | | | | [address] | | + + + + + | Kellen Briones | ECON | [place], [place] | | | | | [address] | | + + + + + Care Team Providers + +------+ + | Care Mobile Home Servicer Name | Role | Phone | + [...] Lumbar | AYAAN Villareal | [address] | | | | | radiculopath | [address] | [place], | | | | | y | [address] | [place] | | | | | Procedures | [address] | [address] | | | | | MRI Lumbar | [place], | Phone: | | | | | Spine wo | [place] [address] | [phone] | | | | | Contrast | Phone: | Fax: | | | | | | [phone] | [phone] | | | | | | Fax: | | | | | | | [phone] | | +--------+--------+ + + + + Reason for Visit + + + | Reason | Comments | + + + | Follow-up | Low Back Pain | + + + Encounter Details +--------+---------+ + + + | Date | Type | Department | Care Team | Description | +--------+---------+ + + + | 01/07/ | Office | [facility] | Mono Diaz, | Lumbar radiculopathy | | 2018 | Visit | PHYSIATRY [address] | PA-C [address] | (Primary Dx); | | | | [place], | [address] [place] | Spinal stenosis [place] | | | | [place] [address] | [place] [address] | lumbar region with | | | | [phone] | [id number] | | | | | | level [...] press against a nerve. Date Last Reviewed: 03/06/201519995156-9236 [employer]. [address] [place] [address], [place] [address]. All righ ts reserved. This information is [...] and narcotic medications use; she currently uses [place], Flexeril and ga bapentin. She is taking [...] no apparent deficits with short or manager intermediate memory. 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 Unfortunately Clementine Winchester continues to have [...] [place] | | | | | | [place] [address] | | | | | | [phone] | | | | | | | [...] L4 nerve root along with the descending J4rhlqz | | roots within the subarticular recesses.L5-S1: Moderate to severe disc space narrowing | | and generalized disc osteophytecomplex combine with dorsal ligamentous and facet | | hypertrophy to moderatelynarrow the foramina to a similar degree, with encroachment on | | the exiting Q8ckyie roots along with the descending S1 nerve [...] DISEASE AND | | MILD ANTEROLISTHESIS AT [id number] MILD STENOSIS.7. LEVOSCOLIOSIS AND MULTILEVEL FACET | [...] | Spinal stenosis of lumbar region with mqaaxuchcfdoy-E1-M5 level moderately severe | + + | Spinal stenosis, lumbar region, without neurogenic claudication | + +
--- OUTSIDE RECORDS SUMMARY | ~2018-01-29 | XMS | Encounter Summary ---
Demographics + + + | Address | [address] | | | [place] [address] | + + + | Home Phone [...] + | Author | [facility] | | | and Ottonielana | + + + | Organization | [facility] [...] [place], [place] | | | | | [address] | | + + + + + | Kellen Briones | ECON | [place] | | | | | [address] | | + + + + + Care Team Providers + +------+ + | Care Steam And Power Superintendent Name | Role | Phone | [...] [address] | | | | | [place] | [address] | | | | | [place] [address] | [address] | | | | | [phone] | | | +--------+ + + + [...] | | | | | | [place] [address] | | | | | | [phone] | | | | | | | [...]
--- OUTSIDE RECORDS SUMMARY | ~2018-01-29 | XMS | Encounter Summary ---
Demographics + + + | Address | [address] | | | [place] [address] | + + + | Home Phone [...] + | Author | [facility] | | | and Ottonielana | + + + | Organization | [facility] | | | and [place]ielana | + + + | Address | Unknown | + + + | Phone | Unavailable | + + + Support + + + + + | Name | Relationship | Address | Phone | + + + + + | Lucy Winchester | ECON | [place], [place] | | | | | [address] | | + + + + + | Kellen Briones | ECON | [place], [place] | | | | | [address] | | + + + + + Care Team Providers + +------+ + | Care Orthopedic Dentist Name | Role | Phone | + [...] Lumbar | AYAAN Villareal | [address] | | | | | radiculopath | [address] | [place], | | | | | y | [address] | [place] | | | | | Procedures | [address] | [address] | | | | | MRI Lumbar | [place], | Phone: | | | | | Spine wo | [place] [address] | [phone] | | | | | Contrast | Phone: | Fax: | | | | | | [phone] | [phone] | | | | | | Fax: | | | | | | | [phone] | | +--------+--------+ + + + + [...] Lumbar | Mono, PA-C | [address] | | | | | radiculopath | [address] | [place], | | | | | y | [address] | [place] | | | | | Procedures | [address] | [address] | | | | | MRI Lumbar | [place], | Phone: | | | | | Spine wo | [place] [address] | [phone] | | | | | Contrast | Phone: | Fax: | | | | | | [phone] | [phone] | | | | | | Fax: | | | | | | | [phone] | | +--------+--------+ + + + + [...] Lumbar | Mono, PA-C | [address] | | | | | radiculopath | [address] | [place], | | | | | y | [address] | [place] | | | | | Procedures | [address] | [address] | | | | | MRI Lumbar | [place], | Phone: | | | | | Spine wo | [place] [address] | [phone] | | | | | Contrast | Phone: | Fax: | | | | | | [phone] | [phone] | | | | | | Fax: | | | | | | | [phone] | | +--------+--------+ + + + + Encounter Details +--------+ + + + + | Date | Type | Department | Care Team | Description | +--------+ + + + + | 01/22/ | Hospital | [facility] | Mono Diaz, | Lumbar radiculopathy | | 2018 | Encounter | MED CTR MRI [address] | PA-C [address] | | | | | [place], | [address] [place] | | | | | [place] [address] | [place] [address] | | | | | [phone] | | | | | | | [...] | | | | | | [place] [address] | | | | | | [phone] | | | | | | | [...] L4 nerve root along with the descending B6zcrsj | | roots within the subarticular recesses.L5-S1: Moderate to severe disc space narrowing | | and generalized disc osteophytecomplex combine with dorsal ligamentous and facet | | hypertrophy to moderatelynarrow the foramina to a similar degree, with encroachment on | | the exiting B6nvygn roots along with the descending S1 nerve [...] DISEASE AND | | MILD ANTEROLISTHESIS AT F28-[id number] MILD STENOSIS.7. LEVOSCOLIOSIS AND MULTILEVEL FACET | [...]
--- OUTSIDE RECORDS SUMMARY | ~2018-01-29 | XMS | Encounter Summary ---
Demographics + + + | Address | [address] | | | [place] [address] | + + + | Home Phone [...] + | Author | [facility] | | | and Ottonielana | + + + | Organization | [facility] | [...] [place], [place] | | | | | [address] | | + + + + + | Kellen Briones | ECON | [place] | | | | | [address] | | + + + + + Care Team Providers + +------+ + | Care Patcher Name | Role | Phone | [...] + + | 01/23/ | Telephone | [facility] [place] | Mono Diaz, | Results, Imaging | | 2017 | | PHYSIATRY [address] | PA-C [address] | | | | | [place], | [address] [place] | | | | | [place] [address] | [place] [address] | | | | | [phone] | [phone] | | | | | | | [...] [place] | | | | | | [place] [address] | | | | | | [phone] | | | | | | | | +--------+---------+ + + + as of this encounter Visit Diagnoses Not on filein this encounter"
--- OUTSIDE RECORDS SUMMARY | ~2018-01-29 | XMS | Encounter Summary ---
Demographics + + + | Address | [address] | | | [place] [address] | + + + | Home Phone | | + + + | Preferred Language | Unknown | + + + | Marital Status | | + + + | Worship Affiliation | Unknown | + + + | Race | Unknown | + + + | Ethnic Group | Unknown | + + + Author + + + | Author | [facility] | + + + | Organization | [facility] | + + + | Address | Unknown | + + + | Phone | Unavailable | + + + Support + + + + + | Name | Relationship | Address | Phone | + + + + + | Lucy Winchester | ECON | [place], | | | | | [place] [address] | | + + + + + Care Team Providers + +------+ + | Care Communications Operator Name | Role | Phone | + +------+ + | Medicine, [place] | PCP | Unavailable | | Family [...] | unspecified | | | | | [id number] | mechanism (HCC) | | | | [...]
--- OUTSIDE RECORDS SUMMARY | ~2018-01-29 | XMS | Encounter Summary ---
Demographics + + + | Address | [address] | | | [place] [address] | + + + | Home Phone | | + + + | Preferred Language | Unknown | + + + | Marital Status | | + + + | Muslim Affiliation | Unknown | + + + | Race | Unknown | + + + | Ethnic Group | Unknown | + + + Author + + + | Author | [facility] | + + + | Organization | [facility] | + + + | Address | Unknown | + + + | Phone | Unavailable | + + + Support + + + + + | Name | Relationship | Address | Phone | + + + + + | Lucy Winchester | ECON | [place], | | | | | [place] [address] | | + + + + + Care Team Providers + +------+ + | Care Board Mill Supervisor Name | Role | Phone | + +------+ + | Medicine, [facility] | PCP | Unavailable | | Family [...] | unspecified | | | | | [id number] | mechanism (HCC) | | | | [...]
--- OUTSIDE RECORDS SUMMARY | ~2018-01-29 | XMS | Encounter Summary ---
Demographics + + + | Address | [address] | | | [place] [address] | + + + | Home Phone | | + + + | Preferred Language | Unknown | + + + | Marital Status | | + + + | Gnosticism Affiliation | Unknown | + + + | Race | Unknown | + + + | Ethnic Group | Unknown | + + + Author + + + | Author | [facility] | + + + | Organization | [facility] | + + + | Address | Unknown | + + + | Phone | Unavailable | + + + Support + + + + + | Name | Relationship | Address | Phone | + + + + + | Lucy Winchester | ECON | [place], | | | | | [place] [address] | | + + + + + Care Team Providers + +------+ + | Care Advanced Practice Rn Name | Role | Phone | + +------+ + | Medicine, [place] | PCP | Unavailable | | Family | | | + +------+ + Encounter Details +--------+ + + + + | Date | Type | Department | Care Team | Description | +--------+ + + + + | 01/28/ | Ancillary | [facility] | Jose Perry MD | Cerebrovascular | | 2018 | Orders | Cardiology [place] | [address] [facility] | accident (CVA), | | | | [address] | [place] | unspecified | | | | [place], [place] | [address] | mechanism (HCC) | | | | [address] | | | | | | [phone] | | | +--------+ + + + [...]
--- OUTSIDE RECORDS SUMMARY | ~2018-01-29 | XMS | Encounter Summary ---
Demographics + + + | Address | [address] | | | [place] [address] | + + + | Home Phone [...] | Author | [facility] | | | and Ottonielana | + + + | Organization | [facility] | | | and [place]tonielana | + + + | Address | Unknown | + + + | Phone | Unavailable | + + + Support + + + + + | Name | Relationship | Address | Phone | + + + + + | Lucy Winchester | ECON | [place], [place] | | | | | [address] | | + + + + + | Kellen Briones | ECON | [place] | | | | | [address] | | + + + + + Care Team Providers + +------+ + | Care Switch Coupler Name | Role | Phone | + [...] [place] | | | | | [phone] | [place] [address] | | +--------+ + + + + [...] | | | | | | [place] [address] | | | | | | [phone] | | | | | | | [...]
--- OUTSIDE RECORDS SUMMARY | ~2018-01-29 | XMS | Encounter Summary ---
Demographics + + + | Address | [address] | | | [place] [address] | + + + | Home Phone [...] + | Author | [facility] | | | and Ottonielana | + + + | Organization | [facility] | | | and [place]ielana | + + + | Address | Unknown | + + + | Phone | Unavailable | + + + Support + + + + + | Name | Relationship | Address | Phone | + + + + + | Lucy Winchester | ECON | [place], [place] | | | | | [address] | | + + + + + | Kellen Briones | ECON | [place] | | | | | [address] | | + + + + + Care Team Providers + +------+ + | Care Manager Unix Name | Role | Phone | + +------+ + | Barb Marte | PCP | | + +------+ + Encounter Details +--------+ + + + + | Date | Type | Department | Care Team | Description | +--------+ + + + + | 01/03/ | Hospital | [facility] | Barb Marte PA | Visit for screening | | 2018 | Encounter | MED CTR MAMMOGRAPHY | [address] | mammogram | | | | [address] | [address] | | | | | [place], [place] | [address] | | | | | [address] | | | | | | [phone] | | | +--------+ + + + [...] [place] | | | | | | [place] [address] | | | | | | [phone] | | | | | | | [...] + + + in this encounter Results [facility] Tomosynthesis Screening Left (01/03/2018 1309) + + [...]
--- OUTSIDE RECORDS SUMMARY | ~2018-01-29 | XMS | Encounter Summary ---
Demographics + + + | Address | [address] | | | [place] [address] | + + + | Home Phone [...] | Author | [facility] | | | and Ottonielana | + + + | Organization | [facility] | | | and Ottonielana | + + + | Address | Unknown | + + + | Phone | Unavailable | + + + Support + + + + + | Name | Relationship | Address | Phone | + + + + + | Lucy Winchester | ECON | [place], [place] | | | | | [address] | | + + + + + | Kellen Briones | ECON | [place] | | | | | [address] | | + + + + + Care Team Providers + +------+ + | Care Math And Physics Instructor Name | Role | Phone | + +------+ + | Barb Marte | PCP | | + +------+ + Encounter Details +--------+ + + + + | Date | Type | Department | Care Team | Description | +--------+ + + + + | 12/26/ | Ancillary | [facility] | Barb Marte PA | Visit for screening | | 2018 | Orders | MED CTR XRAY [address] | [address] | mammogram | | | | [place] | [address] [place], [place] | | | | | [place] [address] | [address] | | | | | [phone] | | | +--------+ + + + [...] [place] | | | | | | [place] [address] | | | | | | [phone] | | | | | | | [...]
--- OUTSIDE RECORDS SUMMARY | ~2018-01-29 | XMS | Clinical Summary ---
Demographics + + + | Address | [address] | | | [place] [address] | + + + | Home Phone | | + + + | Preferred Language | Unknown | + + + | Marital Status | Unknown | + + + | Sabianism Affiliation | Unknown | + + + [...] Providers + +------+ + | Care Supervisor Plate Pasting Name | Role | Phone | + +------+ + PP | Unavailable | + +------+ + Source Comments HOLLY is fully live on both [facility] Ambulatory and [facility] InPatient.[facility] Allergies Not on File Current Medications Not [...]
--- OUTSIDE RECORDS SUMMARY | ~2018-01-29 | XMS | Encounter Summary ---
Demographics + + + | Address | [address] | | | [place] [address] | + + + | Home Phone [...] Author | [facility] | | | and Ottonielana | + + + | Organization | [facility] | | | and [place]ana | + + + | Address | Unknown | + + + | Phone | Unavailable | + + + Support + + + + + | Name | Relationship | Address | Phone | + + + + + | Lucy Winchester | ECON | [place], [place] | | | | | [address] | | + + + + + | Kellen Briones | ECON | [place], [place] | | | | | [address] | | + + + + + Care Team Providers + +------+ + | Care Educational Aide Name | Role | Phone | [...] + + | 11/05/ | Telephone | [facility] [place] [place] | Irving Becerril, | Imaging Only | | 2017 | | NEUROSURGERY [address] | DO [address] | | | | | [address] | [address] [place], | | | | | [place] | [place] [address] | | | | | [address] | [phone] | | | | | [phone] | | | +--------+ + + + [...] | | | | | | [place] [address] | | | | | | [phone] | | | | | | | | +--------+---------+ + + + as of this encounter Visit Diagnoses Not on filein this encounter"
--- OUTSIDE RECORDS SUMMARY | ~2018-01-29 | XMS | Clinical Summary ---
Demographics + + + | Address | [address] | | | [place] [address] | + + + | Home Phone | | + + + | Preferred Language | Unknown | + + + | Marital Status | Unknown | + + + | Shinto Affiliation | Unknown | + + + [...] Providers + +------+ + | Care Mold Yarn Supervisor Name | Role | Phone | + +------+ + PP | Unavailable | + +------+ + Source Comments HOLLY is fully live on both [facility] Ambulatory and [facility] InPatient.[facility] Allergies Not on File Current Medications Not [...]
--- OUTSIDE RECORDS SUMMARY | ~2018-01-29 | XMS | Encounter Summary ---
Demographics + + + | Address | [address] | | | [place] [address] | + + + | Home Phone | | + + + | Preferred Language | Unknown | + + + | Marital Status | | + + + | Restorationist Affiliation | Unknown | + + + | Race | Unknown | + + + | Ethnic Group | Unknown | + + + Author + + + | Author | [facility] | + + + | Organization | [facility] | + + + | Address | Unknown | + + + | Phone | Unavailable | + + + Support + + + + + | Name | Relationship | Address | Phone | + + + + + | Lucy Winchester | ECON | [place], | | | | | [place] [address] | | + + + + + Care Team Providers + +------+ + | Care College Athlete Name | Role | Phone | + +------+ + | Medicine, Lerna | PCP | Unavailable | | Family | | | + +------+ + Encounter Details +--------+ + + + + | Date | Type | Department | Care Team | Description | +--------+ + + + + | 01/28/ | Ancillary | [facility] | Jose Perry MD | Cerebrovascular | | 2018 | Orders | Cardiology [place] | [address] [facility] | accident (CVA), | | | | [address] | [place] | unspecified | | | | [place], [place] | [address] | mechanism (HCC) | | | | [address] | | | | | | [phone] | | | +--------+ + + + [...]
--- OUTSIDE RECORDS SUMMARY | ~2018-01-29 | XMS | Encounter Summary ---
Demographics + + + | Address | [address] | | | [place] [address] | + + + | Home Phone [...] | Author | [facility] | | | and [place] | + + + | Organization | [facility] | | | and [place] | + + + | Address | Unknown | + + + | Phone | Unavailable | + + + Support + + + + + | Name | Relationship | Address | Phone | + + + + + | Lucy Winchester | ECON | [place], [place] | | | | | [address] | | + + + + + | Kellen Briones | ECON | [place], [place] | | | | | [address] | | + + + + + Care Team Providers + +------+ + | Care Banquet Kitchen Supervisor Name | Role | Phone | [...] + + | 11/05/ | Telephone | [facility] [place] | Irving Becerril, | Imaging Only | | 2017 | | NE[address]UR[address]ERY [address] | DO [address] | | | | | [address] | [address] [place], | | | | | [place] | [place] [address] | | | | | [address] | [phone] | | | | | [phone] | | | +--------+ + + + [...] | | | | | [place] [address] | | | | | | [phone] | | | | | | | | +--------+---------+ + + + as of this encounter Visit Diagnoses Not on filein this encounter"
--- OUTSIDE RECORDS SUMMARY | ~2018-01-29 | XMS | Encounter Summary ---
Demographics + + + | Address | [address] | | | [place] [address] | + + + | Home Phone [...] | Author | [facility] | | | and [place] | + + + | Organization | [facility] [...] [place], [place] | | | | | [address] | | + + + + + | Kellen Briones | ECON | [place] | | | | | [address] | | + + + + + Care Team Providers + +------+ + | Care Insurance Sales Agent Name | Role | Phone | [...] | (Primary Dx) | | | | [place], [place] | [place] [address] | | | | | [address] | [phone] | | | | | [phone] | | | +--------+ + + + [...] [place] | | | | | | [place] [address] | | | | | | [phone] | | | | | | | [...]
--- OUTSIDE RECORDS SUMMARY | ~2018-01-29 | XMS | Encounter Summary ---
Demographics + + + | Address | [address] | | | [place] [address] | + + + | Home Phone [...] Author | [facility] | | | and [place] | + + + | Organization | [facility] | | | and [place] | + + + | Address | Unknown | + + + | Phone | Unavailable | + + + Support + + + + + | Name | Relationship | Address | Phone | + + + + + | Lucy Winchester | ECON | [place], [place] | | | | | [address] | | + + + + + | Kellen Briones | ECON | [place], [place] | | | | | [address] | | + + + + + Care Team Providers + +------+ + | Care Grill Prep Cook Name | Role | Phone | + [...] [address] | | | | | | [place], | | | | | | [place] [address] | | | | | | [phone] | | | +--------+ + + + [...] | | | | | [place] [address] | | | | | | [phone] | | | | | | | | +--------+---------+ + + + as of this encounter Visit Diagnoses Not on filein this encounter"
--- OUTSIDE RECORDS SUMMARY | ~2018-01-29 | XMS | Encounter Summary ---
Demographics + + + | Address | [address] | | | [place] [address] | + + + | Home Phone [...] Author | [facility] | | | and [place] | + + + | Organization | [facility] | | | and [place] | + + + | Address | Unknown | + + + | Phone | Unavailable | + + + Support + + + + + | Name | Relationship | Address | Phone | + + + + + | Lucy Winchester | ECON | [place], [place] | | | | | [address] | | + + + + + | Kellen Briones | ECON | [place] | | | | | [address] | | + + + + + Care Team Providers + +------+ + | Care Painter Apprentice Name | Role | Phone | [...] | (Primary Dx) | | | | [place], [place] | [place] [address] | | | | | [address] | [phone] | | | | | [phone] | | | +--------+ + + + [...] 2017 | Visit | and Rehabilitation | [facility] [address] | | | | | | [address] [place] | | | | | | [place] [address] | | | | | | [phone] | | | | | | | [...]
--- OUTSIDE RECORDS SUMMARY | ~2018-01-29 | XMS | Clinical Summary ---
Demographics + + + | Address | [address] | | | [place] [address] | + + + | Home Phone | | + + + | Preferred Language | Unknown | + + + | Marital Status | Unknown | + + + | Uatsdin Affiliation | Unknown | + + + [...] Team Providers + +------+ + | Care Shirt Turner Name | Role | Phone | + +------+ + PP | Unavailable | + +------+ + Source Comments HOLLY is fully live on both [facility] and [facility] InPatient.[facility] Allergies Not on File Current Medications Not [...]
--- OUTSIDE RECORDS SUMMARY | ~2018-01-29 | XMS | Encounter Summary ---
Demographics + + + | Address | [address] | | | [place] [address] | + + + | Home Phone [...] | Author | [facility] | | | and [place] | + + + | Organization | [facility] | | | and [place] | + + + | Address | Unknown | + + + | Phone | Unavailable | + + + Support + + + + + | Name | Relationship | Address | Phone | + + + + + | Lucy Winchester | ECON | [place], [place] | | | | | [address] | | + + + + + | Kellen Briones | ECON | [place], [place] | | | | | [address] | | + + + + + Care Team Providers + +------+ + | Care Cotton Inspector Name | Role | Phone | [...] + + | 01/23/ | Telephone | [facility] | Mono Diaz, | Medication Question | | 2017 | | [address]SIATRY [address] | PA-C [address] | | | | | [place], | [address] [place] | | | | | [place] [address] | [place] [address] | | | | | [phone] | [phone] | | | | | | | [...] [place] | | | | | | [place] [address] | | | | | | [phone] | | | | | | | | +--------+---------+ + + + as of this encounter Visit Diagnoses Not on filein this encounter"
--- OUTSIDE RECORDS SUMMARY | ~2018-01-29 | XMS | Encounter Summary ---
Demographics + + + | Address | [address] | | | [place] [address] | + + + | Home Phone | | + + + | Preferred Language | Unknown | + + + | Marital Status | | + + + | Catholic Affiliation | Unknown | + + + | Race | Unknown | + + + | Ethnic Group | Unknown | + + + Author + + + | Author | [facility] | + + + | Organization | [facility] | + + + | Address | Unknown | + + + | Phone | Unavailable | + + + Support + + + + + | Name | Relationship | Address | Phone | + + + + + | Lucy Winchester | ECON | [place], | | | | | [place] [address] | | + + + + + Care Team Providers + +------+ + | Care Assistant Import Manager Name | Role | Phone | + +------+ + | [facility], [place] | PCP | Unavailable | | Family [...] | unspecified | | | | | [phone] | mechanism (HCC) | | | | [...]
[~2018-01-29 23:33] MED LIST changes: +LIPITOR40 MG PO; +PLAVIX75 MG PO; +VENTOLIN HFA18 GM INH
--- NOTE | 2018-01-31 08:03 | EKG ---
[facility] [address] [facility] [place] [address] Signed Normal sinus rhythm RSR' or QR pattern in V1 suggests right ventricular conduction delay Anteroseptal infarct (cited on or before 07-AUG-2016) T wave abnormality, consider lateral ischemia Abnormal ECG When compared with ECG of 26-JAN-2018 08:38, Nonspecific T wave abnormality, worse in Inferior leads Confirmed by RONEL HUFFMAN MD ([id number]) on 01/31/2018 8:03:27 AM Electronically Signed By: RONEL HUFFMAN MD 01/31/18 0803 PATIENT NAME: RADHA NUNEZ Electrocardiogram DATE OF : 44 PHYSICIAN: RONEL HUFFMAN MD REPORT #: [id number] REPORT IS CONFIDENTIAL AND NOT TO BE RELEASED WITHOUT AUTHORIZATION
--- NOTE | 2018-01-31 08:06 | EKG ---
[facility] [address] [facility] [place] [address] Signed Normal sinus rhythm Left axis deviation Inferior infarct , age undetermined Anteroseptal infarct (cited on or before 07-AUG-2016) ST \T\ T wave abnormality, consider lateral ischemia Abnormal ECG When compared with ECG of 30-JAN-2018 00:45, (Unconfirmed) Inferior infarct is now present Confirmed by RONEL HUFFMAN MD ([id number]) on 01/31/2018 8:06:17 AM Electronically Signed By: RONEL HUFFMAN MD 01/31/18 0806 PATIENT NAME: RADHA NUNEZ Electrocardiogram DATE OF : 44 PHYSICIAN: RONEL HUFFMAN MD REPORT #: [id number] REPORT IS CONFIDENTIAL AND NOT TO BE RELEASED WITHOUT AUTHORIZATION
[2018-01-31] MEDS ORDERED: NEURONTIN300 MG PO (15:34)
[2018-01-31] MEDS ORDERED: METFORMIN HCL500 MG PO (15:36)
[2018-01-31] MEDS ORDERED: THIAMINE H100 MG/1 M IV (15:36)
== END 2018-01-31 17:22 | disposition short-term general hospital (02) | DRG 65 ==
LOC: ED 23:33 → MS 01-30 03:52
PROVIDERS: ADMIT Internal Medicine
DX: I63.9 Cerebral infarction, unspecified (principal); F11.20 Opioid dependence, uncomplicated; N17.9 Acute kidney failure, unspecified; R47.01 Aphasia; I10 Essential (primary) hypertension; I25.10 Atherosclerotic heart disease of native coronary artery without angina pectoris; E78.5 Hyperlipidemia, unspecified; Z95.1 Presence of aortocoronary bypass graft; E11.9 Type 2 diabetes mellitus without complications; Z79.4 Long term (current) use of insulin; E03.9 Hypothyroidism, unspecified; K21.9 Gastro-esophageal reflux disease without esophagitis; M54.16 Radiculopathy, lumbar region; F39 Unspecified mood [affective] disorder; F32.9 Major depressive disorder, single episode, unspecified; I25.2 Old myocardial infarction; J44.9 Chronic obstructive pulmonary disease, unspecified
CPT/HCPCS: 36415; 36600; 51701; 70450; 70553; 71045; 80048; 80053; 81001; 82550; 82803; 83605; 84484; 85025; 85610; 85730; 92610; 93005; 93010; 94640; 94762; 99285; A9579; J1650; J2270; J2405; J3411; J3475; J7030

== ENCOUNTER 2019-05-12 14:43 | Inpatient (IN) | payer MEDICARE, OTHER ==
[~2019-05-12] VITALS: Ht 160 cm; Wt 61.3 kg
--- OUTSIDE RECORDS SUMMARY | ~2019-05-12 | XMS | Encounter Summary ---
Demographics + + + | Address | [address] | | | [place] [address] | + + + | Home Phone | | + + + | Preferred Language | Unknown | + + + | Marital Status | | + + + | Jew Affiliation | [phone] | + + + | Race | Unknown | + + + | Ethnic Group | Unknown | + + + Author + + + | Author | [facility] | | | and [place] | + + + | Organization | [facility] | | [...] [place], | | | | | [place] [address] | | + + + + + | Kellen Briones | ECON | [place], [place] | | | | | [address] | | + + + + + Care Team Providers + +------+ + | Care Contract Engineer Name | Role | Phone | + +------+ + | Anna De Guzman PA-C | PCP | | + +------+ + Reason for Visit + + + | Reason | Comments | + + + | Medication Refill | | + + + Encounter Details +--------+--------+ + + + | Date | Type | Department | Care Team | Description | +--------+--------+ + + + | 08/10/ | Refill | [facility] | Irving Becerril, | Medication Refill | | 2016 | | NE[address]UR[address] | DO [address] | | | | | [address] [facility] [address] | [address] [place], [place] | | | | | [place], [place] | [id number] | | | | | [address] | | | | | | [phone] | | | +--------+--------+ + + + Social History + +-------+ [...] as of this encounter Plan of Treatment +--------+---------+ + + + | Date | Type | Specialty | Care Team | Description | +--------+---------+ + + + | 05/14/ | Office | Orthopedic Surgery | Monster White MD | | | 2018 | Visit | | [address] | | | | | | [place] | | | | | | [place] [address] | | | | | | [phone] | | | | | | | | +--------+---------+ + + + | 07/30/ | Office | Cardiology | Agata Tinajero DO | | | 2019 | Visit | | [address] | | | | | | [place] | | | | | | [address] | | | | | | | | +--------+---------+ + + + documented as of this encounter Visit Diagnoses + + | Diagnosis | + + | S/P cervical spinal fusion - Primary Arthrodesis status | + + documented in this encounter"
--- OUTSIDE RECORDS SUMMARY | ~2019-05-12 | XMS | Encounter Summary ---
Demographics + + + | Address | [address] | | | [place] [address] | + + + | Home Phone | | + + + | Preferred Language | Unknown | + + + | Marital Status | | + + + | Religion Affiliation | 1041 | + + + | Race | Unknown | + + + | Ethnic Group | Unknown | + + + Author + + + | Author | [facility] | | | and [place] | + + + | Organization | [facility] | | | and [place] | + + + | Address | Unknown | + + + | Phone | Unavailable | + + + Support + + + + + | Name | Relationship | Address | Phone | + + + + + | Lucy Winchester | ECON | [place], | | | | | [place] [address] | | + + + + + | Kellen Briones | ECON | [place], [place] | | | | | [address] | | + + + + + Care Team Providers + +------+ + | Care Java Application Engineer Name | Role | Phone | + +------+ + | Anna De Guzman PA-C | PCP | | + +------+ + Reason for Visit Service/Procedure (Routine) +--------+--------+ + + + + | Status | Reason | Specialty | Diagnoses / | Referred By | Referred To | | | | | Procedures | Contact | Contact | +--------+--------+ + + + + | Closed | | Radiology | Diagnoses | | [facility] | | | | | Cervical | Marissa, | [address] | | | | | spondylosis | Tk Monreal MD | [place], | | | | | Procedures | [address] | [place] | | | | | [place] IN[place] | [place] | [address] | | | | | DX/THER AGNT | [facility], [place] | Phone: | | | | | [place] | [address] | [phone] | | | | | FACET JOINT, | Phone: | Fax: | | | | | | [phone] | [phone] | | | | | CERV/THORAC, | Fax: | | | | | | 1ST LEVEL | [phone] | | | | | | [place] INJ | | | | | | | DX/THER AGNT | | | | | | | [place] | | | | | | | FACET JOINT, | | | | | | | | | | | | | | CERV/THORAC, | | | | | | | 2ND LEVEL | | | | | | | [place] INJ | | | | | | | DX/THER AGNT | | | | | | | [place] | | | | | | | FACET JOINT, | | | | | | | | | | | | | | CERV/THORAC, | | | | | | | ADD LEVEL | | | | | | | MI | | | | | | | TRIAMCINOLON | | | | | | | E ACET INJ | | | | | | | NOS, 10 MG | | | | | | | Appt 11/29- | | | | | | | Right C3-4, | | | | | | | C4-5, C5-6 | | | | | | | Facet | | | +--------+--------+ + + + + Encounter Details +--------+ + + + + | Date | Type | Department | Care Team | Description | +--------+ + + + + | 11/29/ | Hospital | [facility] | Pippa, | Cervical stenosis of | | 2016 | Encounter | MED CTR XRAY [address] | AYAAN Taylor [address] | spinal canal; | | | | [place] | [facility], | Spondylolisthesis of | | | | [place] [address] | [place] [address] | cervical region; | | | | [phone] | [phone] | Neck pain on right | | | | | | side; Facet | | | | | [employer] | arthritis of | | | | | | cervical region | | | | | | (HCC); DDD | | | | | | (degenerative disc | | | | | | disease), cervical; | | | | | | Spondylosis of | | | | | | cervical region | | | | | | without myelopathy | | | | | | or radiculopathy | +--------+ + + + + Social [...] this encounter Last Filed Vital Signs + +---------+ + + | Vital Sign | Reading | Time Taken | Comments | + +---------+ + + | Blood Pressure | 152/70 | 11/30/2015 2:30 PM | | | | | PDT | | + +---------+ + + | Pulse | 79 | 11/30/2015 1:43 PM | | | | | PDT | | + +---------+ + + | Temperature | - | - | | + +---------+ + + | Respiratory Rate | - | - | | + +---------+ + + | Oxygen Saturation | - | - | | + +---------+ + + | Inhaled Oxygen | - | - | | | Concentration | | | | + +---------+ + + | Weight | - | - | | + +---------+ + + | Height | - | - | | + +---------+ + + | Body Mass Index | - | - | | + +---------+ + + documented in this encounter Medications at Time of Discharge + + + +---------+--------+ + | Medication | Sig | Dispensed | Refills | Start | End Date | | | | | | Date | | + + + +---------+--------+ + | benzonatate | Take 200 mg by mouth | | 0 | | | | (TESSALON) 200 MG | as needed. | | | | | | capsule | | | | | | + + + +---------+--------+ + | metFORMIN | Take 500 mg by mouth | | 0 | | | | (GLUCOPHAGE) 500 mg | nightly. | | | | | | tablet | | | | | | + + + +---------+--------+ + | nitroglycerin | Place 0.4 mg under | | 0 | | | | (NITROSTAT) 0.4 mg | the tongue every 5 | | | | | | SL tablet | minutes as needed. | | | | | + + + +---------+--------+ + | amLODIPine | Take 5 mg by mouth | | 0 | | | | (NORVASC) 5 mg | Daily. | | | | 8 | | tablet | | | | | | + + + +---------+--------+ + | Ascorbic Acid | Take 1,000 mg by | | 0 | | | | (VITAMIN C) 1000 MG | mouth Daily. | | | | 7 | | tablet | | | | | | + + + +---------+--------+ + | aspirin 325 mg | Take 325 mg by mouth | | 0 | | | | tablet | Daily. | | | | 6 | + + + +---------+--------+ + | buPROPion | Take 150 mg by mouth | | 0 | | | | (WELLBUTRIN SR) 150 | Daily. | | | | 8 | | mg 12 hr tablet | | | | | | + + + +---------+--------+ + | calcium acetate | Take 1,334 mg by | | 0 | | | | (PHOSLO) 667 mg | mouth 3 times daily | | | | 7 | | capsule | (with meals). | | | | | + + + +---------+--------+ + | citalopram | Take 20 mg by mouth | | 0 | | | | (CELEXA) 20 mg | Daily. | | | | 8 | | tablet | | | | | | + + + +---------+--------+ + | cyclobenzaprine | Take 5 mg by mouth 3 | | 0 | | | | (FLEXERIL) 5 MG | times daily as | | | | 7 | | tablet | needed. | | | | | + + + +---------+--------+ + | fentaNYL | Place 1 patch onto | | 0 | | | | (DURAGESIC) 50 | the skin every 72 | | | | 8 | | mcg/hr | hours. | | | | | + + + +---------+--------+ + | ferrous sulfate | Take 300 mg by mouth | | 0 | | | | 300 mg/5 mL syrup | Daily. | | | | 8 | + + + +---------+--------+ + | furosemide (LASIX) | Take 20 mg by mouth | | 0 | | | | 20 mg tablet | Daily. | | | | 8 | + + + +---------+--------+ + | gabapentin | Take 900 mg by mouth | | 0 | | | | (NEURONTIN) 300 mg | 3 times daily. | | | | 8 | | capsule | | | | | | + + + +---------+--------+ + | omeprazole | Take 40 mg by mouth | | 0 | | | | (PRILOSEC) 20 mg | every morning | | | | 8 | | capsule | (before breakfast). | | | | | + + + +---------+--------+ + | simvastatin | Take 20 mg by mouth | | 0 | | | | (ZOCOR) 20 mg tablet | nightly. | | | | 7 | + + + +---------+--------+ + documented as of this encounter Plan of Treatment +--------+---------+ + + + | Date | Type | Specialty | Care Team | Description | +--------+---------+ + + + | 06/04/ | Office | Orthopedic Surgery | Monster White MD | | | 2020 | Visit | | [address] | | | | | | [place], | | | | | | [place] [address] | | | | | | [phone] | | | | | | | | +--------+---------+ + + + | 07/30/ | Office | Cardiology | Agata Tinajero DO | | | 2019 | Visit | | [address] | | | | | | [place] | | | | | | [address] | | | | | | | | +--------+---------+ + + + documented as of this encounter Procedures + +--------+ + + + | Procedure Name | Priori | Date/Time | Associated Diagnosis | Comments | | | ty | | | | + +--------+ + + + | FL FACET INJECTION | Routin | 11/30/2015 | Cervical stenosis | Results for this | | CERVICAL | e | 2:19 PM | of spinal canal | procedure are in the | | | | PDT | Spondylolisthesis of | results section. | | | | | cervical region | | | | | | Neck pain on right | | | | | | side Facet | | | | | | arthritis of | | | | | | cervical region | | | | | | (HCC) DDD | | | | | | (degenerative disc | | | | | | disease), cervical | | | | | | Spondylosis of | | | | | | cervical region | | | | | | without myelopathy | | | | | | or radiculopathy | | + +--------+ + + + documented in this encounter Results FL Facet Injection Cervical (11/30/2015 2:19 PM PDT) + + | Specimen | + + | | + + + + + | Narrative | Performed At | + + + | 11/30/2015 Cervical Facet Steroid Injections Diagnosis: | [facility] | | Cervical Facet Arthritis ICD-10 Code M43.12 Clementine Winchester | [facility] | | presents to the fluoroscopy suite for fluoroscopically-guided [facility] | | bilateral right C3, C4 and C5 facet injections as part of | - IMAGING | | conservative management for chronic pain with cervical facet | | | arthritis. Based on the patient's history, physical examination and | | | review of the available imaging the patient has been diagnosed with | | | pain coming primarily from the lumbar facet joints. The patient's | | | pain has been moderate to severe, rated as an 8 usually on a 0-10 | | | scale. The pain is impacting activities of daily living including | | | any activity that required bending or twisting of the head and neck. | | | The patient has been dealing with this pain for more than 3 months | | | and has failed conservative treatment with NSAIDs, PT and a home | | | exercise program. The only effective treatment was prior facet | | | injections which provided approximately 50% relief for 4 months | | | therefore therapeutic facet injections were ordered again by Claudia | | | AYAAN Das. After informed consent was obtained, the | | | patient laid in the prone position on the fluoroscopy table. The | | | areas were identified under fluoroscopic guidance. The areas were | | | prepped and draped in sterile fashion. A 25-gauge, 1.5-inch needle | | | was inserted into each region and approximately 3 mL of buffered 1% | | | lidocaine was infused. Then, a 22-gauge spinal needle was inserted | | | into the middle portion of each facet under fluoroscopic guidance. | | | Confirmation into the joint spaces was obtained with infusion of | | | approximately 0.5 mL of Omnipaque contrast which showed outline of | | | the facet joints. Then, a combination of 1.5 mL of 1% lidocaine and | | | 1.5 mL of 40 mg/mL Kenalog was infused divided between the 3 joints. | | | The patient tolerated the procedure well without complications. Pre- | | | and post-procedure blood pressures were stable. The patient was | | | given verbal as well as written follow-up instructions. The | | | patient was reexamined after the procedure. She reported good | | | improvement of her symptoms after the procedure. Her symptoms were | | | improved even with bending and twisting maneuvers. The patient | | | was instructed to keep a detailed pain diary of the response to | | | treatment and will return the pain diary to our office 2 weeks after | | | the procedure. Prior to the start of the procedure, the following | | | were performed and/or verified, including correct patient identity, | | | correct site/side marked and visible, agreement on the procedure to | | | be done, correct patient positioning and an accurate procedure | | | consent form. Any safety precautions based on clinical history | | | and/or medication use have been addressed. I personally performed | | | the procedure above. Estimated blood loss: Minimal | | | Complications: None Findings: As expected Anesthesia: Local 1% | | | Lidocaine | | + + + + + + + + | Performing | Address | City/State/[facility] | Phone Number | | Organization | | | | + + + + + | [facility] | [address] | [place] | [phone] | | [facility] | | [address] | | | - IMAGING | | | | + + + + + documented in this encounter Visit Diagnoses + + | Diagnosis | + + | Cervical stenosis of spinal canal Spinal stenosis in cervical region | + + | Spondylolisthesis of cervical region Acquired spondylolisthesis | + + | Neck pain on right side Cervicalgia | + + | Facet arthritis of cervical region Cervical spondylosis without myelopathy | + + | DDD (degenerative disc disease), cervical Degeneration of cervical intervertebral | | disc | + + | Spondylosis of cervical region without myelopathy or radiculopathy Cervical | | spondylosis without myelopathy | + + documented in this encounter Administered Medications + +--------+ +-------+------+------+ | Medication Order | MAR | Action | Dose | Rate | Site | | | Action | Date | | | | + +--------+ +-------+------+------+ | iohexol (OMNIPAQUE 300) 300 | Given | 11/30/19 | 3 mLs | | | | mg/mL injection 3 mL 3 mL, | | 16 2:21 | | | | | Other, ONCE PRN, Other, Starting | | PM PDT | | | | | 11/30/15 at 1341, For 1 dose, | | | | | | | Radiology | | | | | | + +--------+ +-------+------+------+ +---+---+ | | | +---+---+ + +-------+ +-------+---+---+ | lidocaine 1% injection 2 mL 2 | Given | 11/30/19 | 2 mLs | | | | mL, Other, ONCE, Sat11/30/15 at | | 16 2:25 | | | | | 1400, For 1 dose, Radiology | | PM PDT | | | | + +-------+ +-------+---+---+ +---+---+ | | | +---+---+ + +-------+ +-------+---+ + | lidocaine buffered 1% injection | Given | 11/30/19 | 6 mLs | | Other | | 6 mL 6 mL, Intradermal, ONCE, | | 16 2:19 | | | (Comment | | Sat11/30/15 at 1400, For 1 dose, | | PM PDT | | | ) | | Radiology | | | | | | + +-------+ +-------+---+ + +---+---+ | | | +---+---+ + +-------+ +-------+---+---+ | triamcinolone acetonide | Given | 11/30/19 | 40 mg | | | | (KENALOG-40) 40 mg/mL injection | | 16 2:25 | | | | | 40 mg 40 mg, Intra-articular, | | PM PDT | | | | | ONCE, Sat11/30/15 at 1400, For 1 | | | | | | | dose, Shake well. Not for IV | | | | | | | use., Radiology | | | | | | + +-------+ +-------+---+---+ +---+---+ | | | +---+---+ documented in this encounter"
--- OUTSIDE RECORDS SUMMARY | ~2019-05-12 | XMS | Encounter Summary ---
Demographics + + + | Address | [address] | | | [place] [address] | + + + | Home Phone | | + + + | Preferred Language | Unknown | + + + | Marital Status | | + + + | Mandaeism Affiliation | 1041 | + + + | Race | Unknown | + + + | Ethnic Group | Unknown | + + + Author + + + | Author | [facility] | | | and [place] | + + + | Organization | [facility] | | | and [place] | + + + | Address | Unknown | + + + | Phone | Unavailable | + + + Support + + + + + | Name | Relationship | Address | Phone | + + + + + | Lucy Winchester | ECON | [place], | | | | | [place] [address] | | + + + + + | Kellen Briones | ECON | [place], [place] | | | | | [address] | | + + + + + Care Team Providers + +------+ + | Care Instructor Private Name | Role | Phone | + [...] + + | 08/31/ | Office | [facility] [place] | Tk Ann | Neck pain on right | | 2014 | Visit | PHYSIATRY [address] | T, [address] | side (Primary Dx); | | | | [place], | [place] | Facet arthritis of | | | | [place] [address] | [address] | cervical region; DDD | | | | [phone] | | (degenerative disc | | | [...] with | | | | | | wfzjumpruoyji-C9-Q3 | | | | | | level [...] of the procedure you must provide a delivery truck driver heavy to take you home. For all procedur [...] She did also receive epidural injections with ut on two occasions. The most recent were [...] 8. Spinal stenosis of lumbar region with xrbxsgffhgoiv-E0-Q3 level moderately severe 9. Facet arthritis of [...] extension x-rays of the lumbar spine at [facility]. I previously requested that these be placed on I-site but I still do not see them there. She has previou coleman seen Dr. Real and would want a consult with Dr. Mathew if she decides to pursue surger y. documented in th is encounter Plan of Treatment +--------+---------+ + + + | Date | Type | Specialty | Care Team | Description | +--------+---------+ + + + | 05/14/ | Office | Orthopedic Surgery | Monster White MD | | | 2018 | Visit | | [address] | | | | | | [place], | | | | | | [place] [address] | | | | | | [phone] | | | | | | | | +--------+---------+ + + + | 07/30/ | Office | Cardiology | Agata Tinajero DO | | | 2020 | Visit | | [address] | | | | | | [place], [place] | | | | | | [address] | | | | | | | | +--------+---------+ + + + documented as of this encounter Results FL BAUTISTA Lumbar Transforaminal (10/06/2013 1:35 PM PDT) + + | Specimen | + + | | + + + + + | Narrative | Performed At | + + + | 10/06/13 Bilateral Transforaminal Epidural Steroid Injections | [facility] | | Diagnosis: Lumbar radiculopathy ICD-9 Code 724.4 Ms. Clementine Cortez | [facility] | | Annabella presents to the fluoroscopy suite for fluoroscopically-guided | [facility] | | bilateral L5-S1 transforaminal epidural steroid [...] + + | Performing | Address | City/State[facility] | Phone Number | | Organization | | | | + + + + + | [facility] | [address] | [place], [place] | [phone] | | [facility] | | [address] | | | - IMAGING | | | | + + + + + FL Facet Injection Cervical (09/24/2013 2:09 PM PDT) + + | Specimen | + + | | + + + + + | Narrative | Performed At | + + + | 09/24/13 Cervical Facet Steroid Injections Diagnosis: | [facility] | | Cervical Spondylosis ICD-9 Code 721.0 Ms. Clementine Winchester | [facility] | | presents to the fluoroscopy suite for fluoroscopically-guided C4-C5, | [facility] | | C5-C6 and C6-C7 facet injections [...] + + | [facility] | [address] | [place] | [phone] | | [facility] | | [address] | | | - IMAGING | | [...] | Spinal stenosis of lumbar region with zvnkflhtvlhli-G8-A7 level moderately severe | | Spinal stenosis, lumbar region, without neurogenic claudication | + + | Facet arthritis of lumbar region-Most severe at L4-L5,L5-S1 Lumbosacral spondylosis | | without myelopathy | + + | Spondylolisthesis of lumbar region Acquired spondylolisthesis | + + documented in this encounter
--- OUTSIDE RECORDS SUMMARY | ~2019-05-12 | XMS | Encounter Summary ---
Demographics + + + | Address | [address] | | | [place] [address] | + + + | Home Phone | | + + + | Preferred Language | Unknown | + + + | Marital Status | | + + + | Confucianist Affiliation | 1041 | + + + | Race | Unknown | + + + | Ethnic Group | Unknown | + + + Author + + + | Author | [facility] | | | and [place] | + + + | Organization | [facility] | | | and [place] | + + + | Address | Unknown | + + + | Phone | Unavailable | + + + Support + + + + + | Name | Relationship | Address | Phone | + + + + + | Lucy Winchester | ECON | [place], | | | | | [place] [address] | | + + + + + | Kellen Briones | ECON | [place], [place] | | | | | [address] | | + + + + + Care Team Providers + +------+ + | Care Decorating And Assembly Supervisor Name | Role | Phone | + [...] | Cervical | Marissa, | [address] | | | | | spondylosis | Tk Monreal MD | [place], | | | | | Procedures | [address] | [place] | | | | | [place] IN[place] | [place] | [address] | | | | | DX/THER AGNT | [facility], [place] | Phone: | | | | | [place] | [address] | [phone] | | | | | [address] [place], | Phone: | Fax: | | | | | | [phone] | [phone] | | | | | CERV/THORAC, | Fax: | | | | | | [address]ST LEVEL | [phone] | | | | | | [place] INJ | | | | | | | DX/THER AGNT | | | | | | | [place] | | | | | | | FAC[address] JOINT, | | | | | | | | | | | | | | CERV/THORAC, | | | | | | | 2ND LEVEL | | | | | | | [place] INJ | | | | | | | DX/THER AGNT | | | | | | | [place] | | | | | | | [place] JOINT, | | | | | | | | | | | | | | CERV/THORAC, | | | | | | | ADD LEVEL | | | | | | | Right C4-5, | | | | | | | C5-6, C6-7 | | | | | | | Facet-appt | | | | | | | 10/6 | | | +--------+--------+ + + + + Encounter Details +--------+ + + + + | Date | Type | Department | Care Team | Description | +--------+ + + + + | 03/08/ | Hospital | [facility] | [place], | Neck pain on right | | 2015 | Encounter | MED CTR XRAY [address] | [address] | side; DDD | | | | [place] | [facility], | (degenerative disc | | | | [place] [address] | [place] [address] | disease), cervical; | | | | [phone] | [phone] | Facet arthritis of | | | | | | cervical region | | | | | [place] | | +--------+ + + + + [...] +---------+ + + | Blood Pressure | 124/69 | 03/08/2015 1:03 PM | | | | | PDT | | + +---------+ + + | Pulse | 78 | 03/08/2015 1:03 PM | | | | | PDT [...] | Monster White MD | | | 2019 | Visit | | [address] | | | | | | [place] | | | | | | [place] [address] | | | | | | [phone] | | | | | | | | +--------+---------+ + + + | 07/30/ | Office | Cardiology | Agata Tinajero DO | | | 2020 | Visit | | [address] | | | | | | [place], [place] | | | | | | [address] | | | | | | | | +--------+---------+ + + + documented as of this encounter Procedures + +--------+ + + + | Procedure Name | Priori | Date/Time | Associated Diagnosis | Comments | | | ty | | | | + +--------+ + + + | FL FACET INJECTION | Routin | 03/08/2015 | Neck pain on right | Results for this | | CERVICAL | e | 12:57 PM | side DDD | procedure are in the | | | | PDT | (degenerative disc | results section. | | | | | disease), cervical | | | | | | Facet arthritis of | | | | | | cervical region | | + +--------+ + + + documented in this encounter Results FL Facet Injection Cervical (03/08/2015 12:57 PM PDT) + + | Specimen | + + | | + + + + + | Narrative | Performed At | + + + | Cervical Facet Steroid Injections Diagnosis: Cervical | [facility] | | Spondylosis ICD-9 Code 721.0 Clementine Winchester presents to the | [facility] | | fluoroscopy suite for fluoroscopically-guided right C3-C4, C4-C5 and [facility] | | C5-C6 facet injections as part of conservative management for | - IMAGING | | chronic pain with cervical spondylosis. After informed consent was | | | obtained, the patient laid in the prone position on the fluoroscopy | | | table. The areas were identified under fluoroscopic guidance. The | | | areas were prepped and draped in sterile fashion. A 25-gauge, | | | 1.5-inch needle was inserted into each region and approximately 3 mL | | | of buffered 1% lidocaine was infused. Then, a 22-gauge spinal | | | needle was inserted into the middle portion of each facet under | | | fluoroscopic guidance. Confirmation into the joint spaces was obtained | | | with infusion of approximately 1 mL of Omnipaque contrast which | | | showed outline of the facet joints. Then, a combination of 1 mL of | | | 1% lidocaine and 1 mL of 40 mg/mL Kenalog was infused divided | | | between the 3 joints. The patient tolerated the procedure well | | | without complications. Pre- and post-procedure blood pressures were | | | stable. The patient was given verbal as well as written follow-up | | | instructions. Prior to the start [...] the procedure above. Estimated blood loss: Minimal Complications: | | | None Findings: As expected Anesthesia: Local 1% Lidocaine | | + + + + + + + + | Performing | Address | City/State/Rust[place] | Phone Number | | Organization | | | | + + + + + | [facility] | [address] | [place] | [phone] | | [facility] | | [address] | | | - IMAGING | | | | + + + + + documented in this encounter Visit Diagnoses + + | Diagnosis | + + | Neck pain on right side Cervicalgia | + + | DDD (degenerative disc disease), cervical Degeneration of cervical intervertebral | | disc | + + | Facet arthritis of cervical region Cervical spondylosis without myelopathy | + + documented in this encounter Administered Medications + +--------+ +------+------+------+ | Medication Order | MAR | Action | Dose | Rate | Site | | | Action | Date | | | | + +--------+ +------+------+------+ | iohexol (OMNIPAQUE 300) 300 | Given | 03/08/20 | 1 mL | | | | mg/mL injection 1 mL 1 mL, | | 15 12:57 | | | | | Other, ONCE PRN, Other, Starting | | PM PDT | | | | | 03/08/15 at 1236, For 1 dose, | | | | | | | Radiology | | | | | | + +--------+ +------+------+------+ +---+---+ | | | +---+---+ + +-------+ +-------+---+ + | lidocaine buffered 1% injection | Given | 03/08/20 | 7 mLs | | Other | | 7 mL 7 mL, Intradermal, ONCE, | | 15 12:50 | | | (Comment | | 03/08/15 at 1300, For 1 dose, | | PM PDT | | | ) | | Radiology | | | | | | + +-------+ +-------+---+ + +---+---+ | | | +---+---+ + +-------+ +-------+---+---+ | triamcinolone acetonide | Given | 03/08/20 | 40 mg | | | | (KENALOG-40) 40 mg/mL injection | | 15 1:00 | | | | | 40 mg 40 mg, Intra-articular, | | PM PDT | | | | | ONCE, 03/08/15 at 1300, For 1 | | | | | | | dose, Shake well. Not for IV | | | | | | | use., Radiology | | | | | | + +-------+ +-------+---+---+ +---+---+ | | | +---+---+ documented in this encounter"
--- OUTSIDE RECORDS SUMMARY | ~2019-05-12 | XMS | Encounter Summary ---
Demographics + + + | Address | [address] | | | [place] [address] | + + + | Home Phone | | + + + | Preferred Language | Unknown | + + + | Marital Status | | + + + | Jew Affiliation | 1041 | + + + | Race | Unknown | + + + | Ethnic Group | Unknown | + + + Author + + + | Author | [facility] | | | and [place] | + + + | Organization | [facility] | | | and [place] | + + + | Address | Unknown | + + + | Phone | Unavailable | + + + Support + + + + + | Name | Relationship | Address | Phone | + + + + + | Lucy Winchester | ECON | [place], | | | | | [place] [address] | | + + + + + | Kellen Briones | ECON | [place], [place] | | | | | [address] | | + + + + + Care Team Providers + +------+ + | Care Systems Integration Analyst Name | Role | Phone | + +------+ + | Anna De Guzman PA-C | PCP | | + +------+ + Reason for Visit +---------+ + | Reason | Comments | +---------+ + | Post Op | 4w PO | +---------+ + Encounter Details +--------+---------+ + + + | Date | Type | Department | Care Team | Description | +--------+---------+ + + + | 05/17/ | Office | [facility] | Chavo Jacob, | Status post cervical | | 2016 | Visit | NEUROSURGERY [address] | PA-C [address] | spinal fusion | | | | [address] | (Primary Dx) | | | | [place] | [place] [address] | | | | | [address] | [phone] | | | | | [phone] | | | +--------+---------+ + + + [...] + + + | Blood Pressure | 138/69 | 05/17/2016 11:13 AM | | | | | PST | | + + + + + | Pulse | 89 | 05/17/2016 11:13 AM | | | | | PST | | + + + + + | Temperature | - | - | | + + + + + | Respiratory Rate | 16 | 05/17/2016 11:13 AM | | | | | PST | | + + + + + | Oxygen Saturation | - | - | | + + + + + | Inhaled Oxygen | - | - | | | Concentration | | | | + + + + + | Weight | 69.9 kg (154 lb) | 05/17/2016 11:13 AM | | | | | PST | | + + + + + | Height | 160 cm (5' 3") | 05/17/2016 11:13 AM | | | | | PST | | + + + + + | Body Mass Index | 27.28 | 05/17/2016 11:13 AM | | | | | PST | | + + + + + documented in this encounter Patient Instructions Patient Instructions Perico Hearn, Dinkey Press Operator - 05/17/2016 11:43 AM PSTYou may now slowly increase your lifting up to 15 pounds as tolerated. You may now reach overhead but it should only be 1-2 pounds. Please refrain from twisting for the next 8 weeks. Lastly, you w ill see Dr. Becerril in approximately 2 months where a new x-ray will be taken at that time. I n the meantime, you can also begin to wean out of your brace as instructed below. SPINE BRACE WEANING PROTOCOL (5 WEEKS) Below are instructions for weaning your brace. You can move through the weeks slower if yo u feel the need to do so, but the overall goal is to get you out of the brace slowly over th e next several weeks. WEEK 1 If you have been using your brace for activities like sleeping, showering, do not use the b race for these activities any longer but continue using it for everything else. WEEK 2 Stop wearing your brace for sitting and short distance walking. You should use the brace f or anything more involved. WEEK 3 Stop using the brace for medium distance walking. You can bend and twist your back but sti ll proceed slowly with these activities. WEEK 4 Stop using the brace for everything but the most difficult tasks. You should now be able to go on long walks and lift more weight as directed. Add more bending and twisting as tolera rachel. WEEK 5 Stop using the brace for daily use. I would encourage you to use the brace in the future f or activities that you know might aggravate your back or cause pain. You should still work to strengthen your back and use good technique when warp picker things and bending. documented in this encounter Progress Notes Chavo Jacob PA - 05/17/2016 11:41 AM PSTFormatting of this note might be different f rom the original. Perico Hearn, Melter Caster [address] [facility], [address] [place], [place] [id number] FAX: NEUROSURGERY FOLLOW-UP CHIEF COMPLAINT: Chief Complaint Patient presents with Post Op 4w PO HISTORY OF PRESENT ILLNESS: The patient is a 75 y.o. female that had a cervical fusion for neck pain and arm weakeness around 6 weeks. She returns and overall is doing great. The p atient complains of some hoarseness in her voice that comes and goes. The patient has been walking as much as directed. She is still taking pain medications at this point. Swallowin g is close to or back to normal. The patient has had no issues with her surgical site. She states she had right arm weakness and numbness before the surgery and now it almost complete ly gone. CURRENT MEDICATIONS: Current Outpatient Prescriptions Medication Sig Dispense Refill amLODIPine (NORVASC) 5 mg tablet Take 5 mg by mouth Daily. Ascorbic Acid (VITAMIN C) 1000 MG tablet Take 1,000 mg by mouth Daily. benzonatate (TESSALON) 200 MG capsule Take 200 mg by mouth 3 times daily as needed. buPROPion (WELLBUTRIN SR) 150 mg 12 hr tablet Take 150 mg by mouth Daily. calcium acetate (PHOSLO) 667 mg capsule Take 1,334 mg by mouth 3 times daily (with meal s). citalopram (CELEXA) 20 mg tablet Take 20 mg by mouth Daily. cyclobenzaprine (FLEXERIL) 5 MG tablet Take 5 mg by mouth 3 times daily as needed. fentaNYL (DURAGESIC) 50 mcg/hr Place 1 patch onto the skin every 72 hours. 10 patch 0 fentaNYL (DURAGESIC) 50 mcg/hr Place 1 patch onto the skin every 72 hours. ferrous sulfate 300 mg/5 mL syrup Take 300 mg by mouth Daily. furosemide (LASIX) 20 mg tablet Take 20 mg by mouth Daily. gabapentin (NEURONTIN) 300 mg capsule Take 900 mg by mouth 3 times daily. hydroCHLOROthiazide (HYDRODIURIL) 12.5 MG tablet TK 1 T PO ONCE D 0 HYDROcodone-acetaminophen (NORCO) 10-325 mg per tablet Take 1-2 tablets by mouth every 4 hours as needed for Pain. 120 tablet 0 lactulose 10 g/15 mL solution Take 30 mLs by mouth 2 times daily. For constipation 240 mL 2 metFORMIN (GLUCOPHAGE) 500 mg tablet Take 500 mg by mouth nightly. Takes 1 tab in the m orning and 2 tabs at night methocarbamol (METHOCARBAMOL) 750 mg tablet Take 1-2 tablets by mouth every 6 hours as needed for Muscle spasms. 90 tablet 3 nitroglycerin (NITROSTAT) 0.[address] 0.4 mg under the tongue every 5 minute s as needed. omeprazole (PRILOSEC) 20 mg capsule Take 40 mg by mouth every morning (before breakfast ). simvastatin (ZOCOR) 20 mg tablet Take 20 mg by mouth nightly. simvastatin (ZOCOR) 40 mg tablet TK 1 T PO ONCE D 9 No current facility-administered medications for this visit. ALLERGIES: Allergies Allergen Reactions Tape [Adhesive & Tape] Rash Tizanidine Hcl Other (See Comments) Pt states it affected her balance and made her feel like she was in a fog. SOCIAL HISTORY: The patient reports that she has never smoked. She has never used smokeless tobacco. She r eports that she drinks about 1.2 oz of alcohol per week. She reports that she does not use i llicit drugs. INTERIM PHYSICAL EXAMINATION: Blood pressure 138/69, pulse 89, resp. rate 16, height 1.6 m (5' 3"), weight 69.854 kg (154 lb), not currently . Body mass index is 27.29 kg/(m^2). GENERAL: Clementine Winchester is in no acute distress with unlabored respirations. SPINE: The patient s incision is well healed. EXTREMITIES: No lower extremity edema. NEUROLOGICAL EXAMINATION: MENTAL STATUS: The patient is awake, alert, and oriented. She follows simple and complex commands MOTOR EXAM: Motor strength is 5/5. This is improved when compared to the preoperative exam . SENSORY EXAM: The sensory examination is improved when compared to the preoperative exam. RADIOGRAPHIC REVIEW: The patient s x-rays show stable instrumentation and alignment and were reviewed with the patient today. There have been no interval changes since the immediate postoperative films . Complete fusion has not yet occurred, but this is normal and would not be expected at thi s time. ASSESSMENT: No diagnosis found. Past Medical History Diagnosis Date Coronary artery disease Diabetes mellitus (HCC) Hypertension Cancer (HCC) Right breast Hyperlipidemia PR (myocardial infarction) ([facility]) GERD (gastroesophageal reflux disease) Asthma Arthritis Lumbar radiculopathy 07/23/2012 DDD (degenerative disc disease), lumbar 07/23/2012 Spinal stenosis of lumbar region with pyugtseogydsv-H6-U4 level moderately severe 2012 Facet arthritis of lumbar region-Most severe at L4-L5,L5-S1 07/23/2012 Snoring Chronic narcotic use Neck pain on right side 05/13/2013 Facet arthritis of cervical region (HCC) 05/13/2013 DDD (degenerative disc disease), cervical 05/13/2013 Full dentures upper & lower Adverse effect of anesthesia trouble urinating after anesthesia Depression Oxygen dependent 2 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 PLAN: Overall, the patient is doing well. The patient can see some improvements but continues to recover from recent surgery. I increased the patient s activities now allowing 15 pound lifting. The patient should i ncrease range of motion activities as tolerated. I would like the patient to advance slowly with this process and discussed this at length during today's visit. I would also like the patient to continue with postoperative rehabilitation and to advance with therapy as fahad ramos. We discussed that we can provide pain medications for up to 90 days after their surgical da te. We discussed the need to continue tapering pain medication. If they need longer term p ain medication, they should begin working on either pain management or with the primary care provider. I am hoping to see improvement over the coming weeks to months and plan to continue to foll ow this patient. The patient will follow-up in clinic in around 8 weeks for re-evaluation. Clementine also has known moderately severe lumbar spondylosis along with spondylolisthesis. Kelsea smith has been offered the patient has opted to forego surgery at this time. Therefore, I a m prescribing a brace before surgery to improve her stability now to support her weak muscle s and to reduce pain by restricting mobility. ELECTRONICALLY SIGNED BY: Nathan De León, 05/17/2016 11:41 I Nathan De León am personally taking down the notes in the presence of Chavo del rio PA-C. documented in this encounter Plan of Treatment +--------+---------+ + + + | Date | Type | Specialty | Care Team | Description | +--------+---------+ + + + | 05/14/ | Office | Orthopedic Surgery | Monster White MD | | | 2018 | Visit | | [address] | | | | | | [place] | | | | | [place] [address] | | | | | | [phone] | | | | | | | | +--------+---------+ + + + | 07/30/ | Office | Cardiology | Agata Tinajero DO | | | 2019 | Visit | | [address] | | | | | | [place] | | | | | | [address] | | | | | | | | +--------+---------+ + + + + +---------+--------+ + + | Name | Type | Priori | Associated Diagnoses | Order Schedule | | | | ty | | | + +---------+--------+ + + | XR Cervical Spine 2 | Imaging | Routin | Status post | Expected: 08/15/2016 | | or 3 Views | | e | cervical spinal | (Approximate), | | | | | fusion | Expires: 05/16/2017 | + +---------+--------+ + + documented as of this encounter Visit Diagnoses + + | Diagnosis | + + | Status post cervical spinal fusion - Primary Arthrodesis status | + + documented in this encounter
--- OUTSIDE RECORDS SUMMARY | ~2019-05-12 | XMS | Encounter Summary ---
Demographics + + + | Address | [address] | | | [place] [address] | + + + | Home Phone | | + + + | Preferred Language | Unknown | + + + | Marital Status | | + + + | Tenriism Affiliation | 1041 | + + + | Race | Unknown | + + + | Ethnic Group | Unknown | + + + Author + + + | Author | [facility] | | | and [place] | + + + | Organization | [facility] | | | and [place] | + + + | Address | Unknown | + + + | Phone | Unavailable | + + + Support + + + + + | Name | Relationship | Address | Phone | + + + + + | Lucy Nunez | ECON | [place], | | | | | [place] [address] | | + + + + + | Kellen Briones | ECON | [place], [place] | | | | | [address] | | + + + + + Care Team Providers + +------+ + | Care Technical Spec Name | Role | Phone | + +------+ + | Anna De Guzman PA-C | PCP | | + +------+ + Encounter Details +--------+ + + + + | Date | Type | Department | Care Team | Description | +--------+ + + + + | 06/02/ | Hospital | [facility] | IsakkaydenkaileeTk mathis | | | 2012 | Encounter | MED CTR XRAY [address] | [address] | | | | | [place] | [place], [place] | | | | | [place] [address] | [address] | | | | | [phone] | | | +--------+ + + + [...] | + + + +---------+--------+ + | | Take 1-2 tablets by | | 0 | | | | HYDROcodone-acetamin | mouth 3 times daily. | | | | 5 | | ophen (NORCO) | | | | | | | 7.5-325 mg per | | | | | | | tablet [...] | | | | | | [place] [address] | | | | | | [phone] | | | | | | | | +--------+---------+ + + + | 07/30/ | Office | Cardiology | Agata Tinajero DO | | | 2019 | Visit | | [address] | | | | | | [place] | | | | | | [address] | | | | | | | | +--------+---------+ + + + documented as of this encounter Procedures + +--------+ + + + | Procedure Name | Priori | Date/Time | Associated Diagnosis | Comments | | | ty | | | | + +--------+ + + + | FL FACET INJECTION | Routin | 06/02/2013 | | Results for this | | CERVICAL | e | 6:13 PM | | procedure are in the | | | | PST | | results section. | + +--------+ + + + documented in this encounter Results FL Facet Injection Cervical (06/02/2013 6:13 PM PST) + + | Specimen | + + | | + + + + + | Narrative | Performed At | + + + | [facility] | [place] | | Department [address] [facility] | [facility] | | [ rep [address]] [ rep [facility] | | [facility]] Signed | - IMAGING | | | | | Patient Name: CLEMENTINE NUNEZ Physician: | | | WILFREDO. : 1940 Age: 73 Sex: F Unit #: [id number] | | | Exam Date: 06/02/13 [place] [facility] | | | Report #: [id number] Page: | | | %(RAD)RES..mtdd.print.filter("pg") of %(RAD) | | | RES..mtdd.print.filter("tpg") | | | | | | Accession Number: [id number] | | | CERVICAL FACET INJECTIONS, 06/02/2013 CLINICAL HISTORY: | | | ICD-9 CODE IS 721.0, CERVICAL SPONDYLOSIS. | | | PROCEDURE: Ms. Clementine Nunez presents to the fluoroscopy suite for | | | fluoroscopically-guided right C4-C5 , C5-C6 and C6-C7 facet | | | injections as part of conservative management for chronic pain with | | | cervical spondylosis. After informed consent was obtained, the | | | patient laid in the prone position on the fluoroscopy table. The | | | areas were identified under fluoroscopic guidance. The areas were | | | prepped and draped in sterile fashion. A 25-gauge 1.5-inch needle | | | was inserted into each region and approximately 3 mL of buffered 1% | | | lidocaine was infused and a 22-gauge spinal needle was inserted into | | | the middle portion of each facet under fluoroscopic guidance. | | | Confirmation into the joint spaces was obtained with infusion of | | | approximately 1 mL of Isovue contrast which showed outline of the | | | facet joints. Then , a combination of 2 mL of 1% lidocaine and 2 mL | | | of 40 mg/mL Kenalog was infused divided between the three joints. | | | The patient tolerated the procedure well without complications. Pre | | | and post procedure blood pressure was stable. The patient was | | | given verbal as well as written followup instructions. | | | Prior to the start of the procedure, the following were performed and | | | verified including correct patient identify, correct site/side | | | marked and visible, agreement on the procedure to be done, correct | | | patient positioning and accurate procedure consent form. Any safety | | | precautions based on clinical history and/or medications used been | | | addressed. I personally performed the procedure above. | | | Dictated Date/Time: 06/02/2013 18:13 Transcribed | | | Date/Time: 06/03/2013 03:50 Solder Making Supervisor: | | | <<Signature on File>> | | | Tk Monreal | | | MD Marissa06/04/13 0730 <Electronically signed by Tk Monreal | | | Marissa ALVARADO> Tk Ann MD 06/02/13 1813 | | | Solder Making Supervisor: Zulema Cigsvykgckuts38/01/14 0350 | | | | | + + + + + + + + | Performing | Address | City/State/Zipcode | Phone Number | | Organization | | | | + + + + + | [facility] | [address] | [place] | [phone] | | [facility] | | [address] | | | - IMAGING | | | | + + + + + documented in this encounter Visit Diagnoses Not on filedocumented in this encounter
--- OUTSIDE RECORDS SUMMARY | ~2019-05-12 | XMS | Encounter Summary ---
Demographics + + + | Address | [address] | | | [place] [address] | + + + | Home Phone | | + + + | Preferred Language | Unknown | + + + | Marital Status | | + + + | Confucianist Affiliation | 1041 | + + + | Race | Unknown | + + + | Ethnic Group | Unknown | + + + Author + + + | Author | [facility] | | | and [place] | + + + | Organization | [facility] | | | and [place] | + + + | Address | Unknown | + + + | Phone | Unavailable | + + + Support + + + + + | Name | Relationship | Address | Phone | + + + + + | Lucy Winchester | ECON | [place], | | | | | [place] [address] | | + + + + + | Kellen Briones | ECON | [place], [place] | | | | | [address] | | + + + + + Care Team Providers + +------+ + | Care Life Skills Teacher Name | Role | Phone | + +------+ + | Anna De Guzman PA-C | PCP | | + +------+ + Reason for Visit + + + | Reason | Comments | + + + | Appointment | | + + + Encounter Details +--------+ + + + + | Date | Type | Department | Care Team | Description | +--------+ + + + + | 10/13/ | Telephone | [facility] | Tk Ann | Appointment | | 2012 | | PHYSIATRY [address] | | | | | [place], | [place], [place] | | | | | [place] [address] | [address] | | | | | [phone] | | | +--------+ + + + [...] 2019 | Visit | | [address] | | | | | | [place] | | | | | | [place] [address] | | | | | | [phone] | | | | | | | | +--------+---------+ + + + | 07/30/ | Office | Cardiology | Agata Tinajero DO | | | 2019 | Visit | | [address] | | | | | | [place] | | | | | | [address] | | | | | | | | +--------+---------+ + + + documented as of this encounter Visit Diagnoses Not on filedocumented in this encounter"
--- OUTSIDE RECORDS SUMMARY | ~2019-05-12 | XMS | Encounter Summary ---
Demographics + + + | Address | [address] | | | [place] [address] | + + + | Home Phone | | + + + | Preferred Language | Unknown | + + + | Marital Status | | + + + | Hinduism Affiliation | 1041 | + + + | Race | Unknown | + + + | Ethnic Group | Unknown | + + + Author + + + | Author | [facility] | | | and [place] | + + + | Organization | [facility] | | | and [place] | + + + | Address | Unknown | + + + | Phone | Unavailable | + + + Support + + + + + | Name | Relationship | Address | Phone | + + + + + | Lucy Winchester | ECON | [place], | | | | | [place] [address] | | + + + + + | Kellen Briones | ECON | [place], [place] | | | | | [address] | | + + + + + Care Team Providers + +------+ + | Care Senior Biostatistician Name | Role | Phone | + [...] | +--------+ + + + + | 03/19/ | Telephone | [facility] | Tk Ann | Appointment | | 2012 | | PHYSIATRY [address] | | | | | [place], | [place], [place] | | | | | [place] [address] | [address] | | | | | [phone] | | | +--------+ + + + [...] | | | | | | [place] [address] | | | | | | [phone] | | | | | | | | +--------+---------+ + + + | 07/30/ | Office | Cardiology | Agata Tinajero DO | | | 2019 | Visit | | [address] | | | | | | [place] | | | | | | [address] | | | | | | | | +--------+---------+ + + + documented as of this encounter Visit Diagnoses Not on filedocumented in this encounter"
--- OUTSIDE RECORDS SUMMARY | ~2019-05-12 | XMS | Encounter Summary ---
Demographics + + + | Address | [address] | | | [place] [address] | + + + | Home Phone | | + + + | Preferred Language | Unknown | + + + | Marital Status | | + + + | Gnosticist Affiliation | [id number] | + + + | Race | Unknown | + + + | Ethnic Group | Unknown | + + + Author + + + | Author | [facility] | | | and [place] | + + + | Organization | [facility] | | [...] [place], | | | | | [place] [address] | | + + + + + | Kellen Briones | ECON | [place], [place] | | | | | [address] | | + + + + + Care Team Providers + +------+ + | Care Banana Carrier Name | Role | Phone | + +------+ + | Anna De Guzman PA-C | PCP | | + +------+ + Reason for Referral Evaluate & Treat (Routine) +--------+ + + + + + | Status | Reason | Specialty | Diagnoses / | Referred By | Referred To | | | | | Procedures | Contact | Contact | +--------+ + + + + + | Closed | Specialty | Physical | Diagnoses | Jerrica, | | | | Services | Therapy | Cervical | Irving Corona DO | | | | Required | | myelopathy | [address] | | | | | | ([facility]) S/P | [address] | | | | | | cervical | [place] | | | | | | spinal | [address] | | | | | | fusion | Phone: | | | | | | | [phone] | | | | | | | Fax: | | | | | | | [phone] | | +--------+ + + + + + Reason for Visit +---------+ + | Reason | Comments | +---------+ + | Post Op | 3m PO | +---------+ + Encounter Details +--------+---------+ + + + | Date | Type | Department | Care Team | Description | +--------+---------+ + + + | 07/04/ | Office | [facility] | Irving Becerril, | Cervical myelopathy | | 2017 | Visit | NEUROSURGERY [address] | DO [address] | ([facility]) (Primary Dx); | | | | [address] | [address] [place], [place] | S/P cervical spinal | | | | [place], [place] | [id number] | fusion | | | | [address] | | | | | | [phone] | | | +--------+---------+ + + + [...] + + + | Blood Pressure | 141/63 | 07/04/2016 3:51 PM | | | | | PST | | + + + + + | Pulse | 81 | 07/04/2016 3:51 PM | | | | | PST | | + + + + + | Temperature | - | - | | + + + + + | Respiratory Rate | 16 | 07/04/2016 3:51 PM | | | | | PST | | + + + + + | Oxygen Saturation | - | - | | + + + + + | Inhaled Oxygen | - | - | | | Concentration | | | | + + + + + | Weight | 64 kg (141 lb) | 07/04/2016 3:51 PM | | | | | PST | | + + + + + | Height | 160 cm (5' 3") | 07/04/2016 3:51 PM | | | | | PST | | + + + + + | Body Mass Index | 24.98 | 07/04/2016 3:51 PM | | | | | PST | | + + + + + documented in this encounter Patient Instructions Patient Instructions Irving Becerril DO - 07/04/2016 4:23 PM PSTPlease undergo new x-rays of the cervical spine in 3 and 9 months. Please start physical therapy. Please follow-up with me as needed. documented in this encounter Progress Notes Irving Becerril DO - 07/04/2016 4:25 PM PSTFormatting of this note might be different fro m the original. Irving Becerril DO [address] [facility], [address] [place] [address] FAX: NEUROSURGERY FOLLOW-UP CHIEF COMPLAINT: Chief Complaint Patient presents with Post Op 3m PO HISTORY OF PRESENT ILLNESS: The patient is a 76 y.o. female that had an ACDF C3-7 by me fo r neck pain, arm pain, arm weakness, and myelopathy around 3 months ago. She returns and ov ricardo is doing well with respect to the neck and arm symptoms. The patient complains of bety k and leg symptoms for which she is seeing Dr. Ann. Issues with swallowing have not been a major issue. Most of the pre- and postsurgical complaints have continued to improve overall. PAST MEDICAL HISTORY: Past Medical History Diagnosis Date Coronary artery disease Diabetes mellitus (HCC) Hypertension Cancer (HCC) Right breast Hyperlipidemia [place] (myocardial infarction) (HCC) GERD (gastroesophageal reflux disease) Asthma Arthritis Lumbar radiculopathy 07/23/2012 DDD (degenerative disc disease), lumbar 07/23/2012 Spinal stenosis of lumbar region with [id number] level moderately severe 2012 Facet arthritis of lumbar region-Most severe at L4-L5,L5-S1 07/23/2012 Snoring Chronic narcotic use Neck pain on right side 05/13/2013 Facet arthritis of cervical region (HCC) 05/13/2013 DDD (degenerative disc disease), cervical 05/13/2013 Full dentures upper & lower Adverse effect of anesthesia trouble urinating after anesthesia Depression Oxygen dependent 2 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 PAST SURGICAL HISTORY: Past Surgical History Procedure Laterality Date Coronary artery bypass graft 2009 Hysterectomy, total abdominal 1969 Tonsillectomy and adenoidectomy 1947 Mouth surgery 8 She is edentulous Carpal tunnel release 1979' Bilateral Reconstruction of left thumb 1989' Mastectomy, radical 1987 Right Breast reconstruction [id number] About 10 surgeries Bone spur left foot Blepharoptosis repair 2009 bilateral Cervical spine surgery Anterior 03/30/2016 Procedure: C3-4, C4-5, C5-6, C6-7 Anterior Cervical Discectomy w/ Fusion and Plating; Enamorado rgeon: Irving Becerril DO; Location: [facility] MAIN OR CURRENT MEDICATIONS: Current Outpatient Prescriptions Medication Sig Dispense Refill amLODIPine (NORVASC) 5 mg tablet Take 5 mg by mouth Daily. benzonatate (TESSALON) 200 [...] as needed for Pain. 120 tablet 0 magnesium, as oxide, 250 MG tablet Take 250 mg by mouth Daily. metFORMIN (GLUCOPHAGE) 500 mg tablet Take 500 [...] every morning (before breakfast ). simvastatin (ZOCOR) 40 mg tablet TK 1 [...] she does not use i llicit drugs. FAMILY HISTORY: Family History Problem Relation Age of Onset Alcohol abuse Father Heart disease Father Migraines Daughter Other (see comment) Daughter Depression Migraines Son Other (see comment) Son Seizure disorder, snores Cancer Mother Heart disease Mother Hypertension Mother Arthritis Mother Hypertension Daughter COPD Daughter Arthritis Daughter High blood pressure Daughter Other (see comment) Daughter snores REVIEW OF SYSTEMS GENERALLY: No fever, no night sweats, no anemia, no fatigue, + recent profound weight dixon es. EYES: No eye problems, + use of corrective lenses, no eye injury, no double vision, no blin dness. EARS, NOSE, AND THROAT: No changes in taste or smell, no hearing difficulty, + ringing in t he ears, no ear drainage, no dizziness, + voice changes, + difficulty swallowing, no signifi cant snoring, no sleep apnea, no sinus problems, no major dental work. NEUROLOGICALLY: Please see the review of systems discussed above in the history of present illness. In addition, the patient has memory loss, pain in back. PSYCHIATRIC: + depression, no sleep disorders, no anxiety, no bipolar disorder, no psychoti c episodes. CARDIOVASCULAR: No heart attacks, no heart murmur, no heart fluttering, no chest pain, no a nkle swelling. LUNG DISEASE: No shortness of breath, no cough, no tuberculosis, no bloody cough, no asthma , no emphysema/COPD. GASTROINTESTINAL: No bowel disease, no nausea or vomiting, no rectal bleeding, no constipat ion, no stool incontinence, no liver disease, no gallbladder disease, no abdominal pain, no ulcers. KIDNEY DISEASE: No urinary frequency, no painful or difficult urination, no incontinence. ENDOCRINE: No diabetes, no thyroid disease, no osteopenia or osteoporosis, no breast draina ge. SKIN: No breast lumps, no skin changes, no rashes, no itches. HEMATOLOGIC/LYMPHATIC: No enlarged lymph nodes, no easy or unusual bleeding, no personal hi story of cancer. RHEUMATOLOGIC: No joint arthritis, no rheumatoid arthritis. INTERIM PHYSICAL EXAMINATION: Blood pressure 141/63, pulse 81, resp. rate 16, height 1.6 m (5' 3"), weight 63.957 kg (141 lb), not currently . Body mass index is 24.98 kg/(m^2). GENERAL: Clementine Winchester is in no acute distress with unlabored respirations. HEENT: HEAD/FACE: Normocephalic and atraumatic. There are no areas of recent trauma. SPINE: The patient s incision has healed further and is again without drainage, erythema, or discharge EXTREMITIES: No lower extremity edema. NEUROLOGICAL EXAMINATION: MENTAL STATUS: The patient is awake, alert, and oriented. She follows simple and complex commands MOTOR EXAM: Motor strength is 4+/5. This is improved from the preoperative exam. SENSORY EXAM: The sensory examination improved from the preoperative exam. REFLEXES: Reflexes are unchanged from her preoperative history and physical. RADIOGRAPHIC REVIEW: The patient s postoperative x-rays show stable instrumentation and alignment and were rev iewed with the patient today. There have been no interval changes since the immediate posto perative films. There has been increased arthrodesis since the patient s last x-ray which was also reviewed for comparison. ASSESSMENT: S/P ACDF C3-7: Encounter Diagnoses Name Primary? Cervical myelopathy (HCC) Yes S/P cervical spinal fusion Past Medical History Diagnosis Date Coronary artery disease Diabetes mellitus (HCC) Hypertension Cancer (HCC) Right breast Hyperlipidemia [place] (myocardial infarction) (HCC) GERD (gastroesophageal reflux disease) Asthma Arthritis Lumbar radiculopathy 07/23/2012 DDD (degenerative disc disease), lumbar 07/23/2012 Spinal stenosis of lumbar region with [id number] level moderately severe 2012 Facet arthritis of [...] Overall, the patient is doing well. The patient's preoperative symptoms are improving at this point. I have increased the patient s activities as of today, and I would like the patient to co ntinue to advance with activities as tolerated. I am hoping to see complete healing in the next 3-9 months time and will continue to follow the patient with x-rays. I hope sincerely that she continues to see further improvement in her symptoms over the course of her recover y. I will refer her to physical therapy at her request. She will undergo repeat x-ray of the neck in 3 and 9 months and follow-up with me as needed . She has known low back disease, but would like to defer treatment of that for now. ELECTRONICALLY SIGNED BY: Irving Becerril DO, 07/04/2016 16:28 documented in this encounter Plan of Treatment [...] | | | | | [place] [address] | | | | | | [phone] | | | | | | | | +--------+---------+ + + + | 07/30/ | Office | Cardiology | Agata Tinajero DO | | | 2019 | Visit | | [address] | | | | | | [place] | | | | | | [address] | | | | | | | | +--------+---------+ + + + + +---------+--------+ + + | Name | Type | Priori | Associated Diagnoses | Order Schedule | | | | ty | | | + +---------+--------+ + + | XR Cervical Spine 2 | Imaging | Routin | Cervical | Expected: 10/04/2016 | | or 3 Views | | e | myelopathy (HCC) | (Approximate), | | | | | S/P cervical spinal | Expires: 07/04/2017 | | | | | fusion | | + +---------+--------+ + + | XR Cervical Spine 2 | Imaging | Routin | Cervical | Expected: 04/06/2017 | | or 3 Views | | e | myelopathy (HCC) | (Approximate), | | | | | S/P cervical spinal | Expires: 07/04/2017 | | | | | fusion | | + +---------+--------+ + + + + +--------+ + + | Name | Type | Priori | Associated Diagnoses | Order Schedule | | | | ty | | | + + +--------+ + + | Ambulatory referral | Outpatient | Routin | Cervical | 1 Occurrences | | to Physical Therapy | Referral | e | myelopathy (HCC) | starting 07/04/2016 | | | | | S/P cervical spinal | until 07/04/2017 | | | | | fusion | | + + +--------+ + + documented as of this encounter Visit Diagnoses + + | Diagnosis | + + | Cervical myelopathy (HCC) - Primary Cervical spondylosis with myelopathy | + + | S/P cervical spinal fusion Arthrodesis status | + + documented in this encounter
--- OUTSIDE RECORDS SUMMARY | ~2019-05-12 | XMS | Encounter Summary ---
Demographics + + + | Address | [address] | | | [place] [address] | + + + | Home Phone | | + + + | Preferred Language | Unknown | + + + | Marital Status | | + + + | Shinto Affiliation | 1041 | + + + | Race | Unknown | + + + | Ethnic Group | Unknown | + + + Author + + + | Author | [facility] | | | and [place] | + + + | Organization | [facility] | | | and [place] | + + + | Address | Unknown | + + + | Phone | Unavailable | + + + Support + + + + + | Name | Relationship | Address | Phone | + + + + + | Lucy Winchester | ECON | [place], | | | | | [place] [address] | | + + + + + | Kellen Briones | ECON | [place], [place] | | | | | [address] | | + + + + + Care Team Providers + +------+ + | Care Coil Spring Assembler Name | Role | Phone | + [...] | | | | | | | [place] | | | | | | | [...] | +--------+ + + + + | 03/30/ | Hospital | [facility] | Irving Becerril, | | | 2016 - | Encounter | [facility] | DO [address] | | | | | [address] | [address] | | | 03/31/ | | [place] [address] | [id number] | | | 2015 | | [phone] | | | +--------+ + + + [...] the original. DISCHARGE SUMMARY Pt. Name/Age/: Clementine Phoenix Annabella 75 y.o. 1940 Date of Admission: 03/30/2016 Date of Discharge: 03/31/2016 Admitting Physician: Irving Becerril DO [facility] Discharging Physician: NARESH Valverde Primary Discharge Dx: <principal problem not specified> Secondary Discharge Dx: Patient Active Problem List Diagnosis Cervical stenosis of spinal canal Spondylolisthesis of cervical region Arthritis Leg pain, bilateral Lumbago Trochanteric bursitis of right hip Right hip pain Stroke of unknown etiology Coronary artery disease Diabetes mellitus - ORAL Control Hypertension Stroke Syncope and collapse Cancer Hyperlipidemia AR (myocardial infarction) GERD (gastroesophageal reflux disease) Asthma Spondylolisthesis of lumbar region Lumbar radiculopathy DDD (degenerative disc disease), lumbar Spinal stenosis of lumbar region with dzxwqgtqdalgz-N3-Y5 level moderately severe Facet arthritis of lumbar region-Most severe at L4-L5,L5-S1 Snoring Chronic narcotic use Neck pain on right side Facet arthritis of cervical region DDD (degenerative disc disease), cervical H/O Syncope & collape H/O CVA/stroke H/O AR (myocardial infarction) H/O Breast cancer - Right [...] of admission the patient was admitted to [facility] and underwent a C3-C7 fusion. Patient was [...] follow guidelines and precautions as previously discussed. Brace: Jose Electronically signed by: Chavo Jacob, 03/31/2016 7:59 [facility] documented in this encounter Discharge Instructions Instructions RicciMerle hawk Janet, CARE MANAGEMENT SPECIALIST - 03/31/2016Discharge Instructions for Cervical Fusion You [...] t raise your hands over your head tyc3tgiw(s)after your surgery. Don t drive until your [...] this your 1 month post op appointment. [id number] [employer]. [address] [place] [address]. All righ ts reserved. This information is not intended as a substitute for professional medical care. Always follow your healthcare professional's instructions. If you would like Home Health: Call [facility] at [phone] documented in this encounter Medications at Time [...] by mouth | | 0 | | 09/11/201 | | (PRILOSEC) 20 mg | every [...] might be different f rom the original. [facility] NEUROSURGERY PROGRESS NOTE Pt. Name/Age/: Clementine Winchester 75 [...] 74 16 95 % - - 03/30/16 180 (!) 190/98 mmHg 36.5 C (97.7 F) [...] - 107 14 96 % - - 03/30/16 1646 - - - 105 13 96 % - - 03/30/16 1645 - - - 105 12 96 % - - 03/30/16 1644 - - - 104 - 96 % - - 03/30/16 1643 - - - 104 (!) 7 96 % - - 03/30/16 1642 - - - 104 9 95 % [...] signed by: Chavo Jacob, 03/31/2016 7:48 [facility] documented in this encounter Plan of [...] | | | | | | [place] [address] | | | | | | [phone] | | | | | | | | +--------+---------+ + + + | 07/30/ | Office | Cardiology | Agata Tinajero DO | | | 2019 | Visit | | [address] | | | | | | [place] | | | | | | [address] | | | | | | | [...] 111 | 70 - 150 mg/dL | [facility] | | | POC | | | [facility] | | [...] [address] | [place] | [phone] | | [facility] | | [address] | | | - LABORATORY | | | | + + + + + KALPESH PatrickHiram Booth No Charge (03/30/2016 4:25 PM PDT) [...] + | [facility] | [address] | [place] | [phone] | | [facility] | | [address] | | | - LABORATORY | | | | + + + + + Type and Screen (03/30/2016 11:51 AM PDT) + + + + + + | Component | Value | Ref Range | Performed | Pathologist | | | | | At | Signature | + + + + + + | ABO | A | | [facility] | | | | | | [facility] | | [...] | | | Screen | | | [facility] | | [...] + + | [facility] | [address] | [place] | | | [facility] | | [address] | | | - BLOOD BANK | [...] in cervical region | + + | Facet arthritis of cervical region Cervical spondylosis without myelopathy | + + | Spondylolisthesis of cervical region Acquired spondylolisthesis | + + | DDD (degenerative disc disease), cervical Degeneration of cervical intervertebral | | disc | + + documented in this encounter Administered Medications + +--------+ +------+------+------+ | Medication Order | MAR | Action | Dose | Rate | Site | | | Action | Date | | | | + +--------+ +------+------+------+ | acetaminophen (TYLENOL) tablet | Given | 03/30/20 | 1 g | | | | 975 mg 975 mg (rounded from | | 16 1:48 | | | | | 1,000 mg), Oral, ONCE, Fri | | PM PDT | | | | | 03/30/16 at 1215, For 1 dose, | | | | | | | Pre-op | | | | | | + +--------+ +------+------+------+ +-------+ +--------+---+---+ | Given | 03/30/20 | 975 mg | | | | | 16 12:08 | | | | | | PM PDT | | | | +-------+ +--------+---+---+ +---+---+ | | | +---+---+ + +-------+ +------+---+---+ | amLODIPine (NORVASC) tablet 5 | Given | 03/31/20 | 5 mg | | | | mg 5 mg, Oral, DAILY, First dose | | 16 8:27 | | | | | on 03/30/16 at 1830, | | AM PDT | | | | | Post-op/Phase II | | | | | | + +-------+ +------+---+---+ +-------+ +------+---+---+ | Given | 03/30/20 | 5 mg | | | | | 16 6:40 | | | | | | PM PDT | | | | +-------+ +------+---+---+ +---+---+ | | | +---+---+ + +-------+ + +---+---+ | ascorbic acid (VITAMIN C) | Given | 03/31/20 | 1,000 mg | | | | tablet 1,000 mg 1,000 mg, Oral, | | 16 8:26 | | | | | DAILY, First dose on Sat03/30/16 | | AM PDT | | | | | at 1830, Post-op/Phase II | | | | | | + +-------+ + +---+---+ +-------+ + +---+---+ | Given | 03/30/20 | 1,000 mg | | | | | 16 6:42 | | | | | | PM PDT | | | | +-------+ + +---+---+ +---+---+ | | | +---+---+ + + + +-------+---+---+ | atorvaSTATin (LIPITOR) tablet | Given by | 03/30/20 | 20 mg | | | | 20 mg 20 mg, Oral, NIGHTLY, | Other | 16 8:29 | | | | | First dose on Sat03/30/16 at | | PM PDT | | | | | 2100, Post-op/Phase II | | | | | | + + + +-------+---+---+ +---+---+ | | | +---+---+ + +-------+ +--------+---+---+ | buPROPion (WELLBUTRIN SR) 12 hr | Given | 03/31/20 | 150 mg | | | | tablet 150 mg 150 mg, Oral, | | 16 8:26 | | | | | DAILY, First dose on Sat03/30/16 | | AM PDT | | | | | at 1830, Do not cut or crush., | | | | | | | Post-op/Phase II | | | | | | + +-------+ +--------+---+---+ +-------+ +--------+---+---+ | Given | 03/30/20 | 150 mg | | | | | 16 6:43 | | | | | | PM PDT | | | | +-------+ +--------+---+---+ +---+---+ | | | +---+---+ + +-------+ + +---+---+ | calcium acetate (PHOSLO) | Given | 03/31/20 | 1,334 mg | | | | capsule 1,334 mg 1,334 mg, Oral, | | 16 12:25 | | | | | 3 TIMES DAILY WITH MEALS, First | | PM PDT | | | | | dose on Sat03/30/16 at 1830, | | | | | | | Post-op/Phase II | | | | | | + +-------+ + +---+---+ +-------+ + +---+---+ | Given | 03/31/20 | 1,334 mg | | | | | 16 8:26 | | | | | | AM PDT | | | | +-------+ + +---+---+ | Given | 03/30/20 | 1,334 mg | | | | | 16 6:42 | | | | | | PM PDT | | | | +-------+ + +---+---+ +---+---+ | | | +---+---+ + +-------+ + +---+---+ | calcium carbonate (TUMS) | Given | 03/31/20 | 1,000 mg | | | | chewable tablet 1,000 mg 1,000 | | 16 10:05 | | | | | mg, Oral, EVERY 2 HOURS PRN, | | AM PDT | | | | | Indigestion, Starting Fri | | | | | | | 03/30/16 at 1759, Post-op/Phase | | | | | | | II | | | | | | + +-------+ + +---+---+ +-------+ + +---+---+ | Given | 03/31/20 | 1,000 mg | | | | | 16 6:49 | | | | | | AM PDT | | | | +-------+ + +---+---+ +---+---+ | | | +---+---+ + +---------+ +-----+-------+---+ | ceFAZolin (ANCEF, KEFZOL) 2 g | New Bag | 03/31/20 | 2 g | 100 | | | in sodium chloride 0.9% 50 mL | | 16 5:20 | | mL/hr | | | IVPB 2 g, Intravenous, | | AM PDT | | | | | Administer over 30 Minutes, EVERY | | | | | | | 8 HOURS INTERVAL, First dose on | | | | | | | 03/30/16 at 2200, For 2 | | | | | | | doses, Start 8 hours after | | | | | | | previous dose. Last dose to be | | | | | | | given within 24 hours of surgery | | | | | | | end time., Post-op/Phase II, | | | | | | | Indications: Surgical Prophylaxis | | | | | | + +---------+ +-----+-------+---+ +---------+ +-----+-------+---+ | New Bag | 03/30/20 | 2 g | 100 | | | | 16 9:41 | | mL/hr | | | | PM PDT | | | | +---------+ +-----+-------+---+ +---+---+ | | | +---+---+ + +-------+ +-------+---+---+ | citalopram (celeXA) tablet 20 | Given | 03/31/20 | 20 mg | | | | mg 20 mg, Oral, DAILY, First | | 16 8:26 | | | | | dose on Sat03/30/16 at 1830, | | AM PDT | | | | | Post-op/Phase II | | | | | | + +-------+ +-------+---+---+ +-------+ +-------+---+---+ | Given | 03/30/20 | 20 mg | | | | | 16 6:40 | | | | | | PM PDT | | | | +-------+ +-------+---+---+ +---+---+ | | | +---+---+ + +-------+ +--------+---+---+ | docusate sodium (COLACE) | Given | 03/31/20 | 100 mg | | | | capsule 100 mg 100 mg, Oral, 2 | | 16 8:27 | | | | | TIMES DAILY, First dose on Sat | | AM PDT | | | | | 03/30/16 at 2100, First line | | | | | | | agent for constipation, | | | | | | | Post-op/Phase II | | | | | | + +-------+ +--------+---+---+ + + +--------+---+---+ | Given by Other | 03/30/20 | 100 mg | | | | | 16 8:29 | | | | | | PM PDT | | | | + + +--------+---+---+ +---+---+ | | | +---+---+ + +---------+ +---------+---+ + | fentaNYL (DURAGESIC) 50 mcg/hr | Patch | 03/30/20 | 1 patch | | Arm-Left | | 1 patch 1 patch, Transdermal, | Applied | 16 6:43 | | | Upper | | EVERY 72 HOURS, First dose on Sat | | PM PDT | | | | | 03/30/16 at 1830, Post-op/Phase | | | | | | | II | | | | | | + +---------+ +---------+---+ + +---+---+ | | | +---+---+ + +-------+ +--------+---+---+ | ferrous sulfate 300 mg/5 mL | Given | 03/31/20 | 300 mg | | | | liquid 300 mg 300 mg, Oral, | | 16 8:26 | | | | | DAILY, First dose on Sat03/30/16 | | AM PDT | | | | | at 1830, Post-op/Phase II | | | | | | + +-------+ +--------+---+---+ +-------+ +--------+---+---+ | Given | 03/30/20 | 300 mg | | | | | 16 7:00 | | | | | | PM PDT | | | | +-------+ +--------+---+---+ +---+---+ | | | +---+---+ + +-------+ +-------+---+---+ | furosemide (LASIX) tablet 20 mg | Given | 03/31/20 | 20 mg | | | | 20 mg, Oral, DAILY, First dose | | 16 8:29 | | | | | on Sat03/30/16 at 1830, | | AM PDT | | | | | Post-op/Phase II | | | | | | + +-------+ +-------+---+---+ +-------+ +-------+---+---+ | Given | 03/30/20 | 20 mg | | | | | 16 6:40 | | | | | | PM PDT | | | | +-------+ +-------+---+---+ +---+---+ | | | +---+---+ + +-------+ +--------+---+---+ | gabapentin (NEURONTIN) capsule | Given | 03/30/20 | 600 mg | | | | 600 mg 600 mg, Oral, ONCE, Sat | | 16 1:48 | | | | | 03/30/16 at 1215, For 1 dose, | | PM PDT | | | | | Pre-op | | | | | | + +-------+ +--------+---+---+ +-------+ +--------+---+---+ | Given | 03/30/20 | 600 mg | | | | | 16 12:08 | | | | | | PM PDT | | | | +-------+ +--------+---+---+ +---+---+ | | | +---+---+ + +-------+ +--------+---+---+ | gabapentin (NEURONTIN) capsule | Given | 03/31/20 | 900 mg | | | | 900 mg 900 mg, Oral, 3 TIMES | | 16 2:02 | | | | | DAILY, First dose on Sat03/30/16 | | PM PDT | | | | | at 2100, Post-op/Phase II | | | | | | + +-------+ +--------+---+---+ + + +--------+---+---+ | Given | 03/31/20 | 900 mg | | | | | 16 8:26 | | | | | | AM PDT | | | | + + +--------+---+---+ | Given by Other | 03/30/20 | 900 mg | | | | | 16 8:29 | | | | | | PM PDT | | | | + + +--------+---+---+ +---+---+ | | | +---+---+ + +-------+ +---------+---+---+ | hydroCHLOROthiazide tablet 12.5 | Given | 03/31/20 | 12.5 mg | | | | mg 12.5 mg, Oral, DAILY, First | | 16 8:27 | | | | | dose on Sat03/30/16 at 1830, | | AM PDT | | | | | Post-op/Phase II | | | | | | + +-------+ +---------+---+---+ +-------+ +---------+---+---+ | Given | 03/30/20 | 12.5 mg | | | | | 16 6:40 | | | | | | PM PDT | | | | +-------+ +---------+---+---+ +---+---+ | | | +---+---+ + +-------+ +---------+---+---+ | HYDROcodone-acetaminophen | Given | 03/31/20 | 2 | | | | (NORCO) 10-325 mg per tablet 1-2 | | 16 12:25 | tablets | | | | tablet 1-2 tablet, Oral, EVERY 4 | | PM PDT | | | | | HOURS PRN, Pain, Starting Fri | | | | | | | 03/30/16 at 1759, Post-op/Phase | | | | | | | II | | | | | | + +-------+ +---------+---+---+ +-------+ +---------+---+---+ | Given | 03/31/20 | 2 | | | | | 16 5:20 | tablets | | | | | AM PDT | | | | +-------+ +---------+---+---+ | Given | 03/31/20 | 2 | | | | | 16 12:25 | tablets | | | | | AM PDT | | | | +-------+ +---------+---+---+ +---+---+ | | | +---+---+ + + + +------+---+---+ | labetalol (TRANDATE) 5 mg/mL | Given by | 03/30/20 | 5 mg | | | | injection 5 mg 5 mg, | Other | 16 5:25 | | | | | Intravenous, EVERY 5 MIN PRN, For | | PM PDT | | | | | SBP > 180, DBP > 100, Starting | | | | | | | 03/30/16 at 1646, Hold if HR | | | | | | | < 60. Maximum total dose 300mg. | | | | | | | Notify anesthesia if patient | | | | | | | requires more than 50mg., | | | | | | | Recovery/Phase I | | | | | | + + + +------+---+---+ + + +------+---+---+ | Given | 03/30/20 | 5 mg | | | | | 16 5:12 | | | | | | PM PDT | | | | + + +------+---+---+ | Given by Other | 03/30/20 | 5 mg | | | | | 16 5:03 | | | | | | PM PDT | | | | + + +------+---+---+ +---+---+ | | | +---+---+ + +---------+ +--------+--------+---+ | methocarbamol (ROBAXIN) 750 mg | New Bag | 03/31/20 | 750 mg | 143.3 | | | in sodium chloride 0.9% 100 mL | | 16 2:02 | | mL/hr | | | IVPB 750 mg, Intravenous, | | PM PDT | | | | | Administer over 45 Minutes, EVERY | | | | | | | 8 HOURS (3 times per day), First | | | | | | | dose on Sat03/30/16 at 2200, | | | | | | | For 4 doses, Post-op/Phase II | | | | | | + +---------+ +--------+--------+---+ +---------+ +--------+--------+---+ | New Bag | 03/31/20 | 750 mg | 143.3 | | | | 16 6:49 | | mL/hr | | | | AM PDT | | | | +---------+ +--------+--------+---+ | New Bag | 03/30/20 | 750 mg | 143.3 | | | | 16 10:38 | | mL/hr | | | | PM PDT | | | | +---------+ +--------+--------+---+ +---+---+ | | | +---+---+ + +-------+ +------+---+---+ | morphine injection 2-4 mg 2-4 | Given | 03/30/20 | 2 mg | | | | mg, Intravenous, EVERY 2 HOURS | | 16 6:44 | | | | | PRN, Pain, Starting 03/30/16 | | PM PDT | | | | | at 1759, If oral route not an | | | | | | | option. Slow IV push, not faster | | | | | | | than 2mg/minute. First dose must | | | | | | | be lowest dose, titrate to | | | | | | | effective dose by repeat of | | | | | | | lowest dose every 30 minutes prn | | | | | | | pain, may not exceed maximum dose | | | | | | | ordered per interval. Use | | | | | | | Pasero Sedation Scale., | | | | | | | Post-op/Phase II | | | | | | + +-------+ +------+---+---+ +---+---+ | | | +---+---+ + +-------+ +-------+---+---+ | pantoprazole (PROTONIX) DR | Given | 03/31/20 | 40 mg | | | | tablet 40 mg 40 mg, Oral, 2 | | 16 6:49 | | | | | TIMES DAILY BEFORE MEALS, First | | AM PDT | | | | | dose on Sat03/30/16 at 1830, Do | | | | | | | not cut or crush. Therapeutic | | | | | | | Interchange for omeprazole., | | | | | | + +-------+ +-------+---+---+ +-------+ +-------+---+---+ | Given | 03/30/20 | 40 mg | | | | | 16 6:43 | | | | | | PM PDT | | | | +-------+ +-------+---+---+ +---+---+ | | | +---+---+ + +---------+ +---+-------+---+ | sodium chloride 0.9% (NS) | New Bag | 03/30/20 | | 100 | | | infusion at 100 mL/hr, | | 16 12:09 | | mL/hr | | | Intravenous, CONTINUOUS, Starting | | PM PDT | | | | | 03/30/16 at 1215, Pre-op | | | | | | + +---------+ +---+-------+---+ +---+---+ | | | +---+---+ + +---------+ +--------+-------+---+ | sodium chloride 0.9% (NS) | New Bag | 03/30/20 | 1,000 | 100 | | | infusion at 100 mL/hr, | | 16 6:44 | mLs | mL/hr | | | Intravenous, CONTINUOUS, Starting | | PM PDT | | | | | 03/30/16 at 1830, | | | | | | | Post-op/Phase II | | | | | | + +---------+ +--------+-------+---+ +---+---+ | | | +---+---+ documented in this encounter
--- OUTSIDE RECORDS SUMMARY | ~2019-05-12 | XMS | Encounter Summary ---
Demographics + + + | Address | [address] | | | [place] [address] | + + + | Home Phone [...] [place], | | | | | [place] [address] | | + + + + + | Kellen Briones | ECON | [place], [place] | | | | | [address] | | + + + + + Care Team Providers + +------+ + | Care Siding Mechanic Name | Role | Phone | + +------+ + | Anna De Guzman PA-C | PCP | | + +------+ + Reason for Visit +---------+ + | Reason | Comments | +---------+ + | Snoring | | +---------+ + | Consult | | +---------+ + Evaluate & Treat (Routine) +--------+ + + + + + | Status | Reason | Specialty | Diagnoses / | Referred By | Referred To | | | | | Procedures | Contact | Contact | +--------+ + + + + + | Closed | Specialty | Sleep | Diagnoses | Patrick Gaffney, | [facility] | | | Services | Medicine | Sleep | MD [address] [facility] | | | Required | | disorder | [place] | Disorder [address] | | [address] | | | | | | D | [place], | | | | | | [place], | [place] [address] | | | | | | [place] [address] | Phone: | | | | | | Phone: | [phone] | | | | | | [phone] | Fax: | | | | | | Fax: | [phone] | | | | | | [phone] | | +--------+ + + + + + Encounter Details +--------+---------+ + + + | Date | Type | Department | Care Team | Description | +--------+---------+ + + + | 09/16/ | Office | [facility] | Bobby Grier | Snoring (Primary | | 2012 | Visit | SLEEP DISORDER [address] | MD [address] | Dx); Chronic | | | | [address] [place] | [address] [place] | narcotic use | | | | [place] [address] | [place] [address] | | | | | [phone] | [phone] | | | | | | | [...] + + + | Blood Pressure | 120/62 | 09/16/2012 10:25 AM | | | | | PDT | | + + + + + | Pulse | 72 | 09/16/2012 10:25 AM | | | | | PDT | | + + + + + | Temperature | - | - | | + + + + + | Respiratory Rate | 16 | 09/16/2012 10:25 AM | | | | | PDT | | + + + + + | Oxygen Saturation | - | - | | + + + + + | Inhaled Oxygen | - | - | | | Concentration | | | | + + + + + | Weight | 74.3 kg (163 lb 14.4 | 09/16/2012 10:25 AM | | | | oz) | PDT | | + + + + + | Height | 158.8 cm (5' 2.5") | 09/16/2012 10:25 AM | | | | | PDT | | + + + + + | Body Mass Index | 29.5 | 09/16/2012 10:25 AM | | | | | PDT | | + + + + + documented in this encounter Progress Notes Bobby Grier Jr., MD - 09/16/2012 10:34 AM PDTFormatting of this note might be differen t from the original. Gely Easley [facility] [place] [address] Ref: Patrick Gaffney MD CC: Chief Complaint Patient presents with Snoring Consult History of the Present Illness:This is a 72 year old female who is referred for sleep medic ine consultation by Dr. Gaffney because of snoring and daytime episodes of lack of responsivenes s. Other significant medical issues include chronic pain requiring numerous psychoactive med ications, AODM, HBP and ASCVD. The patient's records (EMR) are reviewed. The patient and her daughter interviewed and the patient is examined. Because of severe neck and back pain she was started on [place]y, baclofen, flexeril, and zanaflex in February of 2012 according to the patient and her daughter (the EMR supports this too). Currently she is on the zanaflex and Cud[place]y. She had been started on Celexa in November of 2011 for depression. Wellbutrin was started in July of 2010 after heart surgery. She currently takes 2 Cudahy tabs tid. She started having spells of unresponsiveness in March of 2012. She has undergone extensive cardiac an d neurologic evaluations which have revealed no structural cause of her unresponsiveness. Niki miguel is currently seeing NSG too. She is currently thinking about surgery but hasn't come to a decision yet. She requires the medications for control of what sounds like rather severe nec k and back pain. Bedtime is typically about 11pm-12:30am. She takes two gabapentin at bedtime and she estima andrea a sleep latency of 20-30 minutes. She often takes a Cud[place]y at about 8pm and rarely after 10pm. She rises typically to start her day between 9-10am. She has nocturia infrequently. Niki miguel denies night sweats. She denies nocturnal heartburn. She awakens every morning with a dry mouth and sinus/nasal congestion. She rarely awakens with morning headaches. She dreams in her sleep. She doesn't begin dreaming immediately upon falling asleep. She do esn't walk in her sleep. She denies dream enactment while asleep. She denies sleep paralysis . If she falls asleep on the couch her arms can move though. She denies restlessness in her legs or arms at night. No one has ever told her that her leg s or arms kick or twitch rhythmically at night after she falls asleep. She snores loudly every night. No one has ever told her that she stops breathing at night. She doesn't awaken herself gasping for air or snorting. In the daytime she feels sleepy and fatigued. She naps daily several times a day. If she na ps she will sleep for 1-1.5 hours often at 3:30pm. She drinks 2 cups of coffee a day. She drinks tea occasionally but not every day. During these episodes she will be sitting up on the couch and she will say that she is slee py and then she will "nod out" in mid-conversation. Her daughter says that she seems to thomas th funny and her lips flutter. She might "come around" and then she goes out. The daughter d oesn't think she is sleeping but she doesn't know what is going on. The patient now states that the medications didn't start until after the spells started. Past Medical History: has a past medical history of Coronary artery disease; Diabetes munir itus; Hypertension; Stroke; Syncope and collapse; Cancer; Hyperlipidemia; AZ (myocardial inf arction); GERD (gastroesophageal reflux disease); Asthma; Arthritis; Lumbar radiculopathy (); DDD (degenerative disc disease), lumbar (07/23/2012); Spinal stenosis of lumbar re gion with uubritxvermdy-G5-A2 level moderately severe (07/23/2012); Facet arthritis of lumbar region-Most severe at L4-L5,L5-S1 (07/23/2012); and Snoring. has past surgical history that includes Coronary artery bypass graft (2009); Hysterectomy, total abdominal (1968); Tonsillectomy and adenoidectomy (1946); Mouth surgery (1957); Carpa l tunnel release (); Reconstruction of Left Thumb (); Mastectomy, radical (1986) ; Breast reconstruction (5806-5521); bone spur left foot (); and Blepharoptosis repair (2008). Allergies Allergen Reactions Tape (Adhesive & Tape) Rash Current Outpatient Prescriptions Medication Sig Dispense Refill tiZANidine (ZANAFLEX) 4 mg tablet Take 4 mg by mouth every 8 hours as needed. gabapentin (NEURONTIN) 300 mg capsule Take 300 mg by mouth 3 times daily. metoprolol succinate (TOPROL-XL) 50 mg 24 hr tablet Take 50 mg by mouth Daily. metFORMIN (GLUCOPHAGE) 500 mg tablet Take 500 mg by mouth nightly. citalopram (CELEXA) 20 mg tablet Take 20 mg by mouth Daily. benzonatate (TESSALON) 200 MG capsule Take 200 mg by mouth 3 times daily as needed. amLODIPine (NORVASC) 5 mg tablet Take 5 mg by mouth Daily. buPROPion (WELLBUTRIN SR) 150 mg 12 hr tablet Take 150 mg by mouth Daily. HYDROcodone-acetaminophen (NORCO) 7.5-325 mg per tablet Take 1-2 tablets by mouth 3 traci es daily. simvastatin (ZOCOR) 20 mg tablet Take 20 mg by mouth nightly. aspirin 325 mg tablet Take 325 mg by mouth Daily. omeprazole (PRILOSEC) 20 mg capsule Take 20 mg by mouth every morning (before breakfast ). nitroglycerin (NITROSTAT) 0.[address] 0.4 mg under the tongue every 5 minute s as needed. Family Medical History: family history includes Alcohol abuse in her father; Arthritis in h er daughter and mother; COPD in her daughter; Cancer in her mother; Heart disease in her fat her and mother; High blood pressure in her daughter; Hypertension in her daughter and mother ; Migraines in her daughter and son; and Other (See Comment) in her daughters and son. indicated that her mother is . She indicated that her father is . She indic ated that her sister is alive. She indicated that only one of her two daughters is alive. Sh lamont indicated that her son is alive. 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 Eyes:Denies sudden loss of vision, diplopia, blurred vision. ENT: Denies loss of hearing, vertigo, nasal or sinus congestion. Tinnitus. Upper and lowe r dentures. Card:Rare chest pain for which she takes NTG (last took NTG 5 weeks ago). Resp:Some shortness of breath and wheezing. GI: Denies abdominal pain, diarrhea, constipation, hematochezia. Occasional nausea and vo miting with stress. : Denies dysuria, pyuria, hematuria, frequency, incontinence MS: Back pain severe. Neuro: Episodes of lack of responsiveness. Psych: Denies: depression, anxiety, panic. Often stressed. Endocrine: Denies heat or cold intolerance. Heme: Denies easy bruising or prolonged bleeding. Allergic/Immunologic: Denies seasonal allergies. PE: BP 120/62 | Pulse 72 | Resp 16 | Ht 1.588 m (5' 2.5") | Wt 74.345 kg (163 lb 14.4 oz) | BMI 29.50 kg/m2 Gen: alert and not in acute distress HEENT:Head: Normocephalic, no lesions, without obvious abnormality. Eye: Normal external eye, conjunctiva, lids cornea, BELL. Nose: Normal external nose, mucus membranes and septum. Pharynx: Dentures seem to fit well. Normal buccal mucosa. Tonsillar grade 0. Mallampati 4. Neck / Thyroid: Supple, no masses, nodes, nodules or enlargement. Pulm: lungs clear to auscultation Card: regular rate and rhythm, S1, S2 normal, no murmur, click, rub or gallop GI: soft and normal bowel sounds : Not examined Rectal: Not Examined Ext: Not examined Skin:Not examined Neuro:Oriented x 3 and alert. Gait and station were normal. Moves arms well. Formal exam n ot done though. 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 I have discussed in detail the pathophysiology of Obstructive Sleep Apnea with the patient. I've di scussed that during NREM sleep the skeletal muscles relax and in REM sleep the skeletal musc les are paralyzed. The muscles that support the back of the throat (the tongue in particular ) also relax during NREM sleep and are paralyzed in REM sleep and when this occurs, the back of the throat collapses some. In some patients with a smaller back of the throat, this can result in obstruction to the flow of air. This is fundamentally what occurs in NIKIA. This can cause repetitive obstruction to the flow of air all night long cause a person with NIKIA to a waken repeatedly at night to "open" the back of the throat. If airflow is significantly rest ricted, blood oxygen levels can fall. The combination of the repetitive awakenings at night and low oxygen levels lead to numerous other physiologic abnormalities which can result in n octuria, nocturnal heartburn, night sweats, morning dry mouth, morning headache, and daytime fatigue/sleepiness. Additionally, NIKIA can cause hypertension and it dramatically increases the risk of heart disease, heart attack, and stroke. It may play a causative role in obesity and AODM. Untreated NIKIA also dramatically increases the risk of fall asleep car accidents. Treatment can help with all of these issues. I've discussed CPAP treatment with her. She isn 't a candidate for dental appliance therapy (edentulous) and I did not discuss surgical inte rvention. PSG is warranted Chronic Narcotic Use for Chronic Pain: The narcotics can significantl y worsen NIKIA. 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 I've discussed this in detail with the patient and her daughter. PSG is warranted. Spells of Unresponsiveness: I agree with Dr. Gaffney that it is most lik shreyas that these are sleep spells occasioned by untreated NIKIA combined with significant doses of narcotic pain medications. I suspect that if NIKIA is found and treated that the episodes m ight improve. I suspect they would resolve if the narcotics were stopped. ASCVD: The interaction of NIKIA with ASCVD is discussed AODM: The interaction of NIKIA with AODM is also discussed Chronic Neck and Back Pain: I would recommend minimizing the use of n arcotic medications if at all possible. Whether or not surgery would be helpful will, of cou rse, be left to the judgement of the neurosurgeons she is seeing. The patient does seem to b e seriously disabled by this (see low scores on PF, RP, BP, SF, RE on the SF36v2). Plan: PSG with PSG guided PAP if needed. F/u thereafter. Today, 60 minutes was spent face to face with the patient; the [facility] CC: Emerita Draper Taye, Bobby Booker Jr., MD - 09/16/2012 10:17 AM PDTFormatting of this note might be different from the origin al. 09/16/12 1000 Thompson Depression Inventory-II Depression Score 5 - Minimal depression Insomnia Severity Index Insomnia Severity Index 7 Bowman Sleepiness Scale Sitting and reading 0 Watching TV 2 Sitting, inactive in a public place (e.g. a theatre or a meeting) 0 As a passenger in a car for an hour without a break 0 Lying down to rest in the afternoon when circumstances permit 3 Sitting and talking to someone 3 Sitting quietly after a lunch without alcohol 0 In a car, while stopped for a few minutes in traffic 0 Total score 8 SF-36v2 Score PF 19.15 RP 17.67 BP 19.86 GH 45.78 VT 48.97 SF 13.22 RE 9.23 MH 44.38 PCS 24.26 MCS 33.52 documented in t his encounter Plan of Treatment +--------+---------+ + + + | Date | Type | Specialty | Care Team | Description | +--------+---------+ + + + | 05/14/ | Office | Orthopedic Surgery | Monster White MD | | | 2019 | Visit | | [address] | | | | | | [place], | | | | | | [place] [address] | | | | | | [phone] | | | | | | | | +--------+---------+ + + + | 07/30/ | Office | Cardiology | Agata Tinajero DO | | | 2019 | Visit | | [address] | | | | | | [place], [place] | | | | | | [address] | | | | | | | | +--------+---------+ + + + documented as of this encounter Visit Diagnoses + + | Diagnosis | + + | Snoring - Primary Other dyspnea and respiratory abnormality | + + | Chronic narcotic use Other, mixed, or unspecified nondependent drug abuse, | | unspecified | + + documented in this encounter
--- OUTSIDE RECORDS SUMMARY | ~2019-05-12 | XMS | Encounter Summary ---
Demographics + + + | Address | [address] | | | [place] [address] | + + + | Home Phone | | + + + | Preferred Language | Unknown | + + + | Marital Status | | + + + | Latter Day Affiliation | 1041 | + + + | Race | Unknown | + + + | Ethnic Group | Unknown | + + + Author + + + | Author | [facility] | | | and [place] | + + + | Organization | [facility] | | | and [place] | + + + | Address | Unknown | + + + | Phone | Unavailable | + + + Support + + + + + | Name | Relationship | Address | Phone | + + + + + | Lucy Winchester | ECON | [place], | | | | | [place] [address] | | + + + + + | Kellen Briones | ECON | [place], [place] | | | | | [address] | | + + + + + Care Team Providers + +------+ + | Care Pantry Worker Name | Role | Phone | + [...] Description | +--------+--------+ + + + | 06/18/ | Refill | [facility] | Irving Becerril, | Medication Refill | | 2016 | | NEUROSURGERY [address] | DO [address] | | | | | [address] [facility] [address] | [address] [place], [place] | | | | | [place], [place] | [id number] | | | | | [address] | | | | | | [phone] | | | +--------+--------+ + + + [...] | | | | | | [place] [address] | | | | | | [phone] | | | | | | | | +--------+---------+ + + + | 07/30/ | Office | Cardiology | Agata Tinajero DO | | | 2019 | Visit | | [address] | | | | | | [place] | | | | | | [address] | | | | | | | | +--------+---------+ + + + documented as of this encounter Visit Diagnoses + + | Diagnosis | + + | S/P cervical spinal fusion - Primary Arthrodesis status | + + documented in this encounter"
--- OUTSIDE RECORDS SUMMARY | ~2019-05-12 | XMS | Encounter Summary ---
Demographics + + + | Address | [address] | | | [place] [address] | + + + | Home Phone | | + + + | Preferred Language | Unknown | + + + | Marital Status | | + + + | Jainism Affiliation | 1041 | + + + | Race | Unknown | + + + | Ethnic Group | Unknown | + + + Author + + + | Author | [facility] | | | and [place] | + + + | Organization | [facility] | | [...] [place], | | | | | [place] [address] | | + + + + + | Kellen Briones | ECON | [place], [place] | | | | | [address] | | + + + + + Care Team Providers + +------+ + | Care Dry Cleaner Name | Role | Phone | + [...] + + | Closed | Specialty | Neurosurgery | Diagnoses | | Jerrica, | | | Services | | Neck pain | Pippa, | Irving Corona DO | | | Required | | on right | [place], | [address] | | | | | side Facet | PA-C [address] | [address] | | | | | arthritis of | [address] | [place], [place] | | | | | cervical | [place], [place] | [address] Phone: | | | | | region [place] | [address] | [phone] | | | | | (degenerativ | Phone: | Fax: | | | | | e disc | [phone] | [phone] | | | | | disease), | Fax: | | | | | | cervical | [phone] | | | | | | Cervical | | | | | | | stenosis of | | | | | | | spinal canal | | | +--------+ + + + + + Diagnostic/Screening (Routine) +--------+--------+ + + + + | Status | Reason | Specialty | Diagnoses / | Referred By | Referred To | | | | | Procedures | Contact | Contact | +--------+--------+ + + + + | Closed | | Radiology | Diagnoses | | [facility] | | | | | Neck pain | Pippa, | [address] | | | | | on right | Claudia, | [place], | | | | | side Facet | PA-C [address] | [place] | | | | | arthritis of | [address] | [address] | | | | | cervical | [place] | Phone: | | | | | region [place] | [address] | [phone] | | | | | (degenerativ | Phone: | Fax: | | | | | e disc | [phone] | [phone] | | | | | disease), | Fax: | | | | | | cervical | [phone] | | | | | | Cervical | | | | | | | stenosis of | | | | | | | spinal canal | | | | | | | Procedures | | | | | | | MRI | | | | | | | Cervical | | | | | | | Spine wo | | | | | | | Contrast | | | +--------+--------+ + + + + Reason for Visit + + + | Reason | Comments | + + + | Referral | | + + + Encounter Details +--------+ + + + + | Date | Type | Department | Care Team | Description | +--------+ + + + + | 12/13/ | Telephone | [facility] | Pippa, | Referral | | 2015 | | PHYSIATRY [address] | [place] [address] | | | | | [place], | [facility], | | | | | [place] [address] | [place] [address] | | | | | [phone] | [phone] | | | | | | | [...] | 2018 | Visit | | [address] | | | | | | [place] | | | | | | [place] [address] | | | | | | [phone] | | | | | | | | +--------+---------+ + + + | 07/30/ | Office | Cardiology | Agata Tinajero DO | | | 2019 | Visit | | [address] | | | | | | [place] | | | | | | [address] | | | | | | | | +--------+---------+ + + + + +---------+--------+ + + | Name | Type | Priori | Associated Diagnoses | Order Schedule | | | | ty | | | + +---------+--------+ + + | XR Cervical Spine 4 | Imaging | Routin | Neck pain on right | Expected: | | or 5 Vws | | e | side Facet | 12/14/2015, Expires: | | | | | arthritis of | 12/14/2016 | | | | | cervical region | | | | | | (HCC) DDD | | | | | | (degenerative disc | | | | | | disease), cervical | | | | | | Cervical stenosis of | | | | | | spinal canal | | + +---------+--------+ + + | MRI Cervical Spine | Imaging | Routin | Neck pain on right | Expected: | | wo Contrast | | e | side Facet | 12/14/2015, Expires: | | | | | arthritis of | 12/14/2016 | | | | | cervical region | | | | | | (HCC) DDD | | | | | | (degenerative disc | | | | | | disease), cervical | | | | | | Cervical stenosis of | | | | | | spinal canal | | + +---------+--------+ + + + + +--------+ + + | Name | Type | Priori | Associated Diagnoses | Order Schedule | | | | ty | | | + + +--------+ + + | AMB REFERRAL TO PM | Outpatient | Routin | Neck pain on right | Ordered: 12/14/2015 | | [facility] [place] [facility] | Referral | e | side Facet | | | | | | arthritis of | | | | | | cervical region | | | | | | (HCC) DDD | | | | | | (degenerative disc | | | | | | disease), cervical | | | | | | Cervical stenosis of | | | | | | spinal canal | | + + +--------+ + + documented as of this encounter Visit Diagnoses + + | Diagnosis | + + | Neck pain on right side - Primary Cervicalgia | + + | Facet arthritis of cervical region Cervical spondylosis without myelopathy | + + | DDD (degenerative disc disease), cervical Degeneration of cervical intervertebral | | disc | + + | Spinal stenosis of lumbar region with ttetexvxvbgwc-S2-G5 level moderately severe | | Spinal stenosis, lumbar region, without neurogenic claudication | + + | Facet arthritis of lumbar region-Most severe at L4-L5,L5-S1 Lumbosacral spondylosis | | without myelopathy | + + | DDD (degenerative disc disease), lumbar Degeneration of lumbar or lumbosacral | | intervertebral disc | + + | Cervical stenosis of spinal canal Spinal stenosis in cervical region | + + documented in this encounter"
--- OUTSIDE RECORDS SUMMARY | ~2019-05-12 | XMS | Encounter Summary ---
Demographics + + + | Address | [address] | | | [place] [address] | + + + | Home Phone | | + + + | Preferred Language | Unknown | + + + | Marital Status | Unknown | + + + | Jain Affiliation | Unknown | + + + | Race | Unknown | + + + | Ethnic Group | Unknown | + + + Author + + + | Author | [facility] | + + + | Organization | [facility] | + + + | Address | Unknown | + + + | Phone | Unavailable | + + + Care Team Providers + +------+ + | Care Seo Executive Name | Role | Phone | + +------+ + PCP | Unavailable | + +------+ + Reason for Referral Diagnostic Testing +--------+--------+ + + + + | Status | Reason | Specialty | Diagnoses / | Referred By | Referred To | | | | | Procedures | Contact | Contact | +--------+--------+ + + + + | Closed | | Clinical | Procedures | Cnl Eeg | Cnl Eeg Hrc | | | | Neurophysiolo | EEG | [address] | | | | gy | ROUTINE | Anand Duran | Duran Yepez | | | | | | Marleni Viera | Maximiliano | | | | | | Mailcode: | Mailcode: | | | | | | CR120 | CR120 | | | | | | Jenniffer | Jenniffer | | | | | | Research | Research | | | | | | Center | [place] | | | | | | [place], [place] | [place], [place] | | | | | | [address] | [address] | | | | | | Phone: | Phone: | | | | | | [phone] | [phone] | | | | | | Fax: | Fax: | | | | | | [phone] | [phone] | +--------+--------+ + + + + Encounter Details +--------+ + + + + | Date | Type | Department | Care Team | Description | +--------+ + + + + | 07/25/ | Outside | Neurophysiology | Anna Draper, | | | 2012 | Referral | EEG at [facility] [address] | [place] | | | | Order | [address] | [facility] | | | | | Mailcode: CR120 | [address] [place], | | | | | [facility] | [place] [address] | | | | | [place], [place] | [phone] | | | | | [address] | | | | | | [phone] | | | +--------+ + + + [...] | + +--------+ + + + | EEG ROUTINE | Routin | 07/24/2012 | | Results for this | | | e | | | procedure are in the | | | | | | results section. | + +--------+ + + + documented in this encounter Results EEG ROUTINE (07/24/2012) + + | Specimen | + + | | + + + + + | Narrative | Performed At | + + + | Patient Name: Clementine Winchester Date of : 1940 Medical | | | Record Number: [id number] Date of Test: 07/24/2012 Place of | | | Service: [facility] Department: EEG [facility] - [id number] | | | ROUTINE EEG Indication: evaluate for epileptiform abnormalities | | | History: 72 y/o female with PMH of DM, CAD s/p CABG, COPD, HTN, | | | lacunar infarcts who was referred for concern for new onset seizures. | | | Medications: Citalopram 20 mg daily Gabapentin 300 mg | | | three times a day Metformin 500 mg twice daily Metoprolol ER 50 mg | | | daily Mobic 15 mg daily Nitrostat 0.4 mg PRN chest pain Brave | | | 7.5/325 mg twice daily Omeprazole 20 mg daily Simvastatin 20 mg qhs | | | Wellbutrin SR 150 mg daily Methods: This study was a Routine EEG | | | with a duration of 25 minutes. The digital recording was performed | | | with routine electrodes applied according to the 10-20 electrode | | | placement system. The record included EKG and EOG monitoring. EEG was | | | reviewed electronically. The EEG study was performed at . | | | [facility]. EEG Description Interictal Record: The | | | record shows a symmetric, poorly formed, posterior dominant rhythm of | | | 7-8 Hz that attenuates with eye opening, with lower voltage, faster | | | frequency activity present symmetrically in the anterior head | | | regions. The patient enter the drowsy state, and appeared mostly | | | drowsy throughout the record. No segment of Stage I or Stage II sleep | | | was recorded. No focal slowing or epileptiform discharges were | | | present. Activation: Hyperventilation was performed for 3 | | | minutes, and produced some diffuse slowing, include 1-2 seconds of | | | generalized high amplitude delta activity, but no abnormal responses | | | were observed. Photic stimulation was performed and did not produce | | | photoparoxysmal discharge or other abnormal responses. | | | Events/Seizures: No events or seizures are recorded. EKG: The | | | single-channel EKG recording shows a normal sinus rhythm. | | | Interpretation: This is an abnormal awake and drowsy EEG. The | | | presence of this degree of background slowing is consistent with a | | | mild generalized encephalopathy, which is non-specific but may be due | | | to toxic, metabolic, or infectious etiologies. No focal slowing or | | | epileptiform discharges were present. No electrographic seizures were | | | recorded. The absence of epileptiform abnormalities on routine EEG | | | does not rule out a seizure disorder. Clinical correlation is | | | advised. Ehsan Ibarra M.D. Electronically signed AIMEE | | | MD VIRY. Suggested CPT: 17618 - EEG Routine Awake Only | | | Suggested Dx: 348.30 - Encephalopathy, Unspecified | | + + + documented in this encounter Visit Diagnoses Not on filedocumented in this encounter"
--- OUTSIDE RECORDS SUMMARY | ~2019-05-12 | XMS | Encounter Summary ---
Demographics + + + | Address | [address] | | | [place] [address] | + + + | Home Phone | | + + + | Preferred Language | Unknown | + + + | Marital Status | | + + + | Latter Day Affiliation | 1041 | + + + | Race | Unknown | + + + | Ethnic Group | Unknown | + + + Author + + + | Author | [facility] | | | and [place] | + + + | Organization | [facility] | | | and [place] | + + + | Address | Unknown | + + + | Phone | Unavailable | + + + Support + + + + + | Name | Relationship | Address | Phone | + + + + + | Lucy Winchester | ECON | [place], | | | | | [place] [address] | | + + + + + | Kellen Briones | ECON | [place], [place] | | | | | [address] | | + + + + + Care Team Providers + +------+ + | Care Client Professional Name | Role | Phone | + +------+ + | Anna De Guzman PA-C | PCP | | + +------+ + Reason for Visit + + + | Reason | Comments | + + + | Back Pain | low back pain | + + + Encounter Details +--------+---------+ + + + | Date | Type | Department | Care Team | Description | +--------+---------+ + + + | 12/14/ | Office | [facility] | [place], | Spinal stenosis of | | 2013 | Visit | PHYSIATRY [address] | [address] | lumbar region with | | | | [place], | [address] [place], | [id number] | | | | [place] [address] | [place] [address] | level moderately | | | | [phone] | [phone] | severe (Primary Dx); | | | | | | Facet arthritis of | | | | | | lumbar region-Most | | | | | | severe at | | | | | | L4-L5,L5-S1; | | | | | | [...] + + + | Blood Pressure | 105/51 | 12/14/2013 11:20 AM | | | | | PDT | | + + + + + | Pulse | 64 | 12/14/2013 11:20 AM | | | | | PDT [...] + + + + | Weight | 70.8 kg (156 lb) | 12/14/2013 11:20 AM | | | | | PDT | | + + + + + | Height | 160 cm (5' 3") | 12/14/2013 11:20 AM | | | | | PDT | | + + + + + | Body Mass Index | 27.63 | 12/14/2013 11:20 AM | | | | | PDT | | + + + + + documented in this encounter Patient Instructions Patient Instructions Claudia Das PA-C - 12/14/2013 11:46 AM PDT Follow-up at the hospital thirty minutes [...] of the procedure you must provide a day haul or farm charter bus driver to take you home. For all procedur es it is recommended that someone else drive you home. documented in this encounter Progress Notes Claudia Das PA-C - 12/14/2013 11:21 AM PDTFormatting of this note might be differe nt from the original. CHIEF COMPLAINT: Chief Complaint Patient presents with Back Pain low back pain HISTORY OF PRESENT ILLNESS: The patient is a 73 y.o. female being seen today in follow-up for complaints of low back pa in. The patient has been seen for this complaint in the past, with initial visit started b aamir Ann. Previously it was recommended that she receive bilateral L5/S1 TFESI for spinal stenosis. Her last injection was in October of this year. She reports that the treatmen t was effective for approximately 2 months. The patient's symptoms originally began 3 years ago after slipping in her shower. Overall the patient reports that the symptoms are worsening in the last week. She rates the pain a s 7 on scale of 1-10. She describes the pain as A twisting sensation to her low back. Her symptoms worsen with standing and prolonged walking. Her symptoms improve with lying d own and medication use. The patient does not describe numbness of the bilateral lower extremities. She does not report weakness of the bilateral lower extremities. The patient does not repo rt recent falls or trauma. She does not have bowel and bladder dysfunction. She does not have saddle anesthesia. Treatments for these complaints have included prior steroid injections, physical therapy, c hiropractics therapy and narcotic medications use; she currently uses Mitchell, Flexeril and Ga bapentin. Patient's medications, allergies, past medical, surgical, social and family histories were reviewed and updated as appropriate. CURRENT MEDICATIONS: Current Outpatient Prescriptions Medication Sig Dispense Refill amLODIPine (NORVASC) 5 mg tablet Take 5 mg by mouth Daily. Ascorbic Acid (VITAMIN C) 1000 MG tablet Take 1,000 mg by mouth Daily. aspirin 325 mg [...] by mouth 3 times daily as needed. ferrous sulfate 300 mg/5 mL syrup Take [...] tablet Take 20 mg by mouth nightly. ALLERGIES: Allergies Allergen Reactions Tizanidine Hcl Other (See Comments) Pt states it affected her balance and made her feel like she was in a fog. Tape (Adhesive & Tape) Rash REVIEW OF SYSTEMS: (in the last 24 hours) GENERALLY: No fever, chills, weight changes. EYES: [...] rashes. HEMATOLOGIC/LYMPHATIC: No abnormal bleeding PHYSICAL EXAMINATION: Filed Vitals: 12/14/13 1120 BP: 105/51 Pulse: 64 PainSc: 7 Body mass index is 27.64 kg/(m^2). GENERAL: The patient is well developed and well nourished. She does not appear uncomfortab le when seated. HEENT: HEAD/FACE: EYES: EARS: NASOPHARNYX: OROPHARNYX: Normocephalic and atraumatic. There are no areas of recent trauma. Normal sclerae without icterus. No drainage or tenderness. Clear without drainage. Clear without erythema. SKIN Limited skin exam shows no significant rashes or lesions. There are not scars in the lumbar region. CHEST: The patient is in no acute respiratory distress with unlabored respirations. HEART: There is not lower extremity edema. ABDOMEN: Soft, non-tender, non-distended, and without palpable masses. The patient is not obese. NEUROLOGIC: The patient is awake, alert, and oriented to time, place, person. She follows simple and complex commands. Her speech is fluent. She comprehends speech well. She has no apparent deficits with short or residential memory. She has appropriate fund of knowledge Cranial nerves 2-12 appear grossly intact. Sensory exam does not show diminished sensation to light touch in the lower extremities. REFLEX: RIGHT LEFT PATELLAR 2+ 2+ ACHILLES 2+ 2+ MUSCULOSKELETAL There is no tenderness in the midline of the cervical or thoracic spine. T here is no major palpable deformity of the spine. Straight leg raise and slump-sit are negative. Westley's maneuver and impingement testing were negative for any groin pain. There was no tenderness to palpation over the greater tr ochanters or sacral sulci. The patient localized the majority of the pain to the L4/L5 roma on. Lumbar facet loading was negative. Strength testing showed 5/5 strength throughout the lower extremities. The patient was able to heel and toe walk without difficulty. There wa s no redness, effusion, warmth or joint line tenderness in the knees or ankles. RADIOGRAPHIC REVIEW: The patient's imaging was reviewed in detail with the patient today during the visit. MRI from 2013 show spinal stenosis worse at L4/L5 with spondylolithesis L4/L5 and L5/S1, facet a rthritis, DDD. ASSESSMENT: 1. Spinal stenosis of lumbar region with osrkeaosycttd-G9-Q2 level moderately severe 2. Facet arthritis of lumbar region-Most severe at L4-L5,L5-S1 3. Spondylolisthesis of lumbar region PLAN: 1. The patient has had bilateral epidural injection of the low back targeting the region r ight below the area of greatest stenosis. I do believe she will benefit greatly from anothe r injection so I have ordered a bilateral L5/S1 TFESI to be performed in the near future. 2. The patient is to follow up with me 3 weeks after the injection. She is awaiting to [facility] cleared by her broadband installer for cervical fusion. ELECTRONICALLY SIGNED BY: Claudia Das PA-C 12/14/2013 SUPERVISING PHYSICIAN: Tk Ann MD, who was present in the clinic today during this visit. CC: Dr. Draper documented in t his encounter Plan of [...] | | | | | | [place] [address] | | | | | | [phone] | | | | | | | | +--------+---------+ + + + | 07/30/ | Office | Cardiology | Agata Tinajero DO | | | 2019 | Visit | | [address] | | | | | | [place] | | | | | | [address] | | | | | | | | +--------+---------+ + + + documented as of this encounter Results FL BAUTISTA Lumbar Transforaminal (02/02/2014 4:49 PM PDT) + + | Specimen | + + | | + + + + + | Narrative | Performed At | + + + | 02/02/2014 Bilateral Transforaminal Epidural Steroid Injections | [facility] | | Diagnosis: Lumbar radiculopathy ICD-9 Code 724.4 Clementine Phoenix | [facility] | | Annabella presents to the fluoroscopy suite for fluoroscopically-guided [facility] | | bilateral L5-S1 transforaminal epidural steroid [...] + + | Tk Ann MD - 02/02/2014 6:07 PM PDT 02/02/2014ilateral Transforaminal | | Epidural Steroid InjectionsDiagnosis: Lumbar radiculopathyICD-9 Code 724.4Dbryan Phoenix | | Annabella presents to the fluoroscopy [...] ST. | [address] | [place] | [phone] | | [facility] | | [address] | | | - IMAGING | | | | + + + + + documented in this encounter Visit Diagnoses + + | Diagnosis | + + | Spinal stenosis of lumbar region with crvrutrbfjeho-S8-T0 level moderately severe - | | Primary Spinal stenosis, lumbar region, without neurogenic claudication | + + | Facet arthritis of lumbar region-Most severe at L4-L5,L5-S1 Lumbosacral spondylosis | | without myelopathy | + + | Spondylolisthesis of lumbar region Acquired spondylolisthesis | + + documented in this encounter
--- OUTSIDE RECORDS SUMMARY | ~2019-05-12 | XMS | Encounter Summary ---
Demographics + + + | Address | [address] | | | [place] [address] | + + + | Home Phone | | + + + | Preferred Language | Unknown | + + + | Marital Status | | + + + | Zoroastrianism Affiliation | 1041 | + + + | Race | Unknown | + + + | Ethnic Group | Unknown | + + + Author + + + | Author | [facility] | | | and [place] | + + + | Organization | [facility] | | [...] [place], | | | | | [place] [address] | | + + + + + | Kellen Briones | ECON | [place], [place] | | | | | [address] | | + + + + + Care Team Providers + +------+ + | Care Satellite Communications Engineer Name | Role | Phone | + +------+ + | Anna De Guzman PA-C | PCP | | + +------+ + Reason for Visit +--------+ + | Reason | Comments | +--------+ + | Other | Post op call | +--------+ + Encounter Details +--------+ + + + + | Date | Type | Department | Care Team | Description | +--------+ + + + + | 04/06/ | Telephone | [facility] | Irving Becerril, | Other (Post op call) | | 2015 | | NEUR[address]URGERY [address] | DO [address] | | | | | [facility] [address] | [address] [place], [place] | | | | | [place], [place] | [id number] | | | | | [address] | | | | | | [phone] | | | +--------+ + + + [...] | | | | | | [place] [address] | | | | | | [phone] | | | | | | | | +--------+---------+ + + + | 07/30/ | Office | Cardiology | Agata Tinajero DO | | | 2019 | Visit | | [address] | | | | | | [place] | | | | | | [address] | | | | | | | | +--------+---------+ + + + documented as of this encounter Visit Diagnoses Not on filedocumented in this encounter"
--- OUTSIDE RECORDS SUMMARY | ~2019-05-12 | XMS | Encounter Summary ---
Demographics + + + | Address | [address] | | | [place] [address] | + + + | Home Phone | | + + + | Preferred Language | Unknown | + + + | Marital Status | | + + + | Roman Catholic Affiliation | 1041 | + + [...] [place], | | | | | [place] [address] | | + + + + + | Kellen Briones | ECON | [place], [place] | | | | | [address] | | + + + + + Care Team Providers + +------+ + | Care Fleet Administrative Assistant Name | Role | Phone | + [...] + + | 03/19/ | Telephone | [facility] | Tk Ann | Appointment | | 2012 | | [address]SIATRY [address] | [address] | | | | | [place], | [place], [place] | | | | | [place] [address] | [address] | | | | | [phone] | | | +--------+ + + + [...] | | | | | | [place] [address] | | | | | | [phone] | | | | | | | | +--------+---------+ + + + | 07/30/ | Office | Cardiology | Agata Tinajero DO | | | 2019 | Visit | | [address] | | | | | | [place] | | | | | | [address] | | | | | | | | +--------+---------+ + + + documented as of this encounter Visit Diagnoses Not on filedocumented in this encounter"
--- OUTSIDE RECORDS SUMMARY | ~2019-05-12 | XMS | Encounter Summary ---
Demographics + + + | Address | [address] | | | [place] [address] | + + + | Home Phone | | + + + | Preferred Language | Unknown | + + + | Marital Status | | + + + | Pentecostal Affiliation | 1041 | + + + | Race | Unknown | + + + | Ethnic Group | Unknown | + + + Author + + + | Author | [facility] | | | and [place] | + + + | Organization | [facility] | | | and [place] | + + + | Address | Unknown | + + + | Phone | Unavailable | + + + Support + + + + + | Name | Relationship | Address | Phone | + + + + + | Lucy Winchester | ECON | [place], | | | | | [place] [address] | | + + + + + | Kellen Briones | ECON | [place], [place] | | | | | [address] | | + + + + + Care Team Providers + +------+ + | Care Tripe Finisher Name | Role | Phone | + [...] + + | 12/22/ | Telephone | [facility] | Ramon Real | Appointment | | 2012 | | [address] | [address] | (Appointment | | | | [address] | [place], [place] | request) | | | | [place], [place] | [address] | | | | | [address] | [phone] | | | | | [phone] | | | +--------+ + + + [...] | | | | | | [place] [address] | | | | | | [phone] | | | | | | | | +--------+---------+ + + + | 07/30/ | Office | Cardiology | Agata Tinajero DO | | | 2019 | Visit | | [address] | | | | | | [place] | | | | | | [address] | | | | | | | | +--------+---------+ + + + documented as of this encounter Visit Diagnoses Not on filedocumented in this encounter"
--- OUTSIDE RECORDS SUMMARY | ~2019-05-12 | XMS | Clinical Summary ---
Demographics + + + | Address | [address] | | | [place] [address] | + + + | Home Phone | | + + + | Preferred Language | Unknown | + + + | Marital Status | Unknown | + + + | Protestant Affiliation | Unknown | + + + | Race | Unknown | + + + | Ethnic Group | Unknown | + + + Author + + + | Author | NON REVENUE LOCATIONS | + + + | Organization | NON REVENUE LOCATIONS | + + + | Address | Unknown | + + + | Phone | Unavailable | + + + Care Team Providers + +------+ + | Care Prop Maker Name | Role | Phone | + +------+ + PCP | Unavailable | + +------+ + Source Comments [facility] Allergies Not on File Medications Not on file Active Problems Not on file Social History + +-------+ +--------+------+ | Tobacco [...] recent travel history available. | + + Last Filed Vital Signs Not on file Plan of Treatment + + + + + | Health Maintenance | Due Date | Last Done | Comments | + + + + + | Pneumococcal | | | | | vaccination (1 of 2 | 7 | | | | - PCV13) | | | | + + + + + | Influenza (Flu) | | | | | vaccination (#1) | 9 | | | + + + + + Results Not on filefrom Last 3 Months"
--- OUTSIDE RECORDS SUMMARY | ~2019-05-12 | XMS | Encounter Summary ---
Demographics + + + | Address | [address] | | | [place] [address] | + + + | Home Phone | | + + + | Preferred Language | Unknown | + + + | Marital Status | | + + + | Mu-Ism Affiliation | 1041 | + + + | Race | Unknown | + + + | Ethnic Group | Unknown | + + + Author + + + | Author | [facility] | | | and [place] | + + + | Organization | [facility] | | [...] [place], | | | | | [place] [address] | | + + + + + | Kellen Briones | ECON | [place], [place] | | | | | [address] | | + + + + + Care Team Providers + +------+ + | Care Bargeman Name | Role | Phone | + [...] [facility] | | | | | Thoracic or | [place], | [address] | | | | | lumbosacral | Tk Monreal MD | [place], | | | | | neuritis or | [address] | [place] | | | | | | ST [place] | [address] | | | | | radiculitis, | [place], [place] | Phone: | | | | | unspecified | [address] | [phone] | | | | | Procedures | Phone: | Fax: | | | | | SD INJECT | [phone] | [phone] | | | | | ANES/STEROID | Fax: | | | | | | FORAMEN | [phone] | | | | | | LUMBAR/SACRA | | | | | | | L W IMG | | | | | | | GUIDE ,1 | | | | | | | LEVEL SD | | | | | | | TRIAMCINOLON | | | | | | | E ACET INJ | | | | | | | NOS, 10 MG | | | | | | | Bilateral | | | | | | | L5-S1 | | | | | | | TFESI-APPT | | | | | | | 1/6 | | | +--------+--------+ + + + + Encounter Details +--------+ + + + + | Date | Type | Department | Care Team | Description | +--------+ + + + + | 06/08/ | Hospital | [facility] | Tk Ann | Lumbar radiculopathy | | 2014 | Encounter | MED CTR XRAY [address] | T, [address] | (Primary Dx); DDD | | | | [address] [place] | [place], [place] | (degenerative disc | | | | [place] [address] | [id number] | disease), lumbar; | | | | [phone] | | Facet arthritis of | | | | | [employer] Worker, [facility] | lumbar region-Most | | | | | | severe at | | | | | | L4-L5,L5-S1; Spinal | | | | | | stenosis of lumbar | | | | | | region with | | | | | | tnjockejsveyp-O5-M8 | | | | | | level moderately | | | | | | severe; Bilateral | | | | | | lumbar radiculopathy | +--------+ + + + + [...] +---------+ + + | Blood Pressure | 123/69 | 06/08/2014 1:37 PM | | | | | PST | | + +---------+ + + | Pulse | 86 | 06/08/2014 1:37 PM | | | | | PST [...] | 2018 | Visit | | [address] | | | | | | [place], | | | | | | [place] [address] | | | | | | [phone] | | | | | | | | +--------+---------+ + + + | 07/30/ | Office | Cardiology | Agata Tinajero DO | | | 2019 | Visit | | [address] | | | | | | [place] | | | | | | [address] | | | | | | | | +--------+---------+ + + + documented as of this encounter Procedures + +--------+ + + + | Procedure Name | Priori | Date/Time | Associated Diagnosis | Comments | | | ty | | | | + +--------+ + + + | FL EPIDURAL STEROID | Routin | 06/08/2014 | Lumbar | Results for this | | INJECTION LUMBAR | e | 1:30 PM | radiculopathy DDD | procedure are in the | | TRANSFORAMINAL | | PST | (degenerative disc | results section. | | | | | disease), lumbar | | | | | | Facet arthritis of | | | | | | lumbar region-Most | | | | | | severe at | | | | | | L4-L5,L5-S1 Spinal | | | | | | stenosis of lumbar | | | | | | region with | | | | | | obwftrjctsghk-J5-T9 | | | | | | level [...] radiculopathy ICD-9 Code 724.4 Clementine Phoenix | [facility] | | Annabella presents to the fluoroscopy suite for fluoroscopically-guided [facility] | | bilateral L5-S1 transforaminal epidural [...] | Epidural Steroid InjectionsDiagnosis: Lumbar radiculopathyICD-9 Code 724.4Diana Lizett | | Annabella presents to the fluoroscopy [...] | + + + + + | [facility] | [address] | [place] | [phone] | | [facility] | | [address] | | | - IMAGING | | [...] | without myelopathy | + + | Spinal stenosis of lumbar region with oxpcwjtmdfvvg-R8-X8 level moderately severe | | Spinal stenosis, lumbar region, without neurogenic claudication | + + | Bilateral lumbar radiculopathy | + + documented in this encounter Administered Medications + +--------+ +------+------+------+ | Medication Order | MAR | Action | Dose | Rate | Site | | | Action | Date | | | | + +--------+ +------+------+------+ | betamethasone (CELESTONE | Given | 06/08/19 | 9 mg | | | | SOLUSPAN) injection 9 mg 9 mg, | | 15 1:35 | | | | | Other, EVERY 24 HOURS INTERVAL, | | PM PST | | | | | First dose on Sat06/08/14 at 1330, | | | | | | | For 2 doses, Shake well. Not for | | | | | | | IV use., Radiology | | | | | | + +--------+ +------+------+------+ +---+---+ | | | +---+---+ + +-------+ +-------+---+---+ | iohexol (OMNIPAQUE 300) 300 | Given | 06/08/19 | 2 mLs | | | | mg/mL injection 2 mL 2 mL, | | 15 1:25 | | | | | Other, ONCE PRN, Other, Starting | | PM PST | | | | | Sat06/08/14 at 1312, For 1 dose, | | | | | | | Radiology | | | | | | + +-------+ +-------+---+---+ +---+---+ | | | +---+---+ + +-------+ +-------+---+ + | lidocaine 1% injection 5 mL 5 | Given | 06/08/19 | 5 mLs | | Other | | mL, Intradermal, ONCE, 06/08/14 | | 15 1:15 | | | (Comment | | at 1330, For 1 dose, Radiology | | PM PST | | | ) | + +-------+ +-------+---+ + +---+---+ | | | +---+---+ documented in this encounter"
--- OUTSIDE RECORDS SUMMARY | ~2019-05-12 | XMS | Encounter Summary ---
Demographics + + + | Address | [address] | | | [place] [address] | + + + | Home Phone | | + + + | Preferred Language | Unknown | + + + | Marital Status | | + + + | Caodaism Affiliation | 1041 | + + + | Race | Unknown | + + + | Ethnic Group | Unknown | + + + Author + + + | Author | [facility] | | | and [place] | + + + | Organization | [facility] | | [...] [place], | | | | | [place] [address] | | + + + + + | Kellen Briones | ECON | [place], [place] | | | | | [address] | | + + + + + Care Team Providers + +------+ + | Care Shorer Name | Role | Phone | + +------+ + | Barb Marte | PCP | | + +------+ + Reason for Visit + + + | Reason | Comments | + + + | Follow-up | MRI/Back Pain | + + + Encounter Details +--------+---------+ + + + | Date | Type | Department | Care Team | Description | +--------+---------+ + + + | 02/11/ | Office | [facility] | Mono Diaz, | Lumbar radiculopathy | | 2018 | Visit | PHYSIATRY [address] | PA-C [address] | (Primary Dx) | | | | [place], | [address] [place] | | | | | [place] [address] | [place] [address] | | | | | [phone] | [phone] | | | | | | | [...] + + + | Blood Pressure | 96/60 | 02/11/2018 3:46 PM | | | | | PDT | | + + + + + | Pulse | 79 | 02/11/2018 3:46 PM | | | | | PDT [...] Weight | 64 kg (141 lb) | 02/11/2018 3:46 PM | | | | | PDT | | + + + + + | Height | 160 cm (5' 3") | 02/11/2018 3:46 PM | | | | | PDT | | + + + + + | Body Mass Index | 24.98 | 02/11/2018 3:46 PM | | | | | PDT | | + + + + + documented in this encounter Patient Instructions Patient Instructions Mono Diaz PA-C - 02/11/2018 3:40 PM PDTFollow up with Mono brumfield PA-C approximately 3 weeks after injection. Please remember to complete pain log form fo r this visit. Follow-up at the hospital thirty minutes before [...] of the procedure you must provide a pedicab driver to take you home. For all procedur es it is recommended that someone else drive you home. Possible Causes of Low Back or Leg Pain The symptoms in your back or leg may be due to pressure on a nerve. This pressure may be ca used by a damaged disk or by abnormal bone growth. Either way, you may feel pain, burning, t ingling, or numbness. If you have pressure on a nerve that connects to the sciatic nerve, pa in may shoot down your leg. Pressure from the disk Constant wear and tear can weaken a disk over time and cause back pain. The disk can then b e damaged by a sudden movement or injury. If its soft center starts to bulge, the disk may p ress on a nerve. Or the outside of the disk may tear, and the soft center may squeeze throug h and pinch a nerve. Pressure from bone As a disk wears out, the vertebrae right above and below the disk start to touch. This can put pressure on a nerve. Often, abnormal bone (called bone spurs) grows where the vertebrae rub against each other. This can cause the foramen or the spinal canal to narrow (called dana nosis) and press against a nerve. Date Last Reviewed: 08/01/201719994680-4884 [email or web address]. [address] [place] [address], [place] [address]. All righ ts reserved. This information is not intended as a substitute for professional medical care. Always follow your healthcare professional's instructions. documented in this encounter Progress Notes Mono Diaz PA-C - 02/11/2018 3:40 PM PDTFormatting of this note might be different fro m the original. CHIEF COMPLAINT: Chief Complaint Patient presents with Follow-up MRI/Back Pain HISTORY OF PRESENT ILLNESS: Clementine Winchester is a 77 y.o. female being seen today in follow-up for complaints of low ba ck pain. The patient has been seen for this complaint in the past. Previously it was oscar mmended that she have a new lumbar MRI to assess her low back symptoms. Recenlty patient was admitted to [facility] ED/ICU for abnormal behavior which was originally treated as a str samantha, patient's daughter requested she be transferred to [facility] where patient was diagnosed w ith Serotonin Syndrome and she was treated appropriately and recovered. Her recent Lumbar MRI shows significant bilateral foraminal stenosis and moderate to severe central canal stenosis.The patient reports overall her symptoms are worsening. She rates t he pain as 6 on scale of 1-10. She describes the pain as a sharp, achy, tingling sensation to her low back and an aching pain into both legs L>R, sharp at times. Her symptoms worsen with standing and prolonged walking. Her symptoms improve with lying down, sitting down, u se of walker, and medication use. She ambulates with a walker at all times. The patient borja s not describe numbness of the bilateral lower extremities. She does report weakness of th e bilateral lower extremities. She does not have bowel and bladder dysfunction. She does not have saddle anesthesia. Treatments for these complaints have included prior steroid injections, physical therapy, c hiropractics therapy and narcotic medications use; she currently uses [place], Flexeril and ga bapentin. She is taking 900 mg of gabapentin 3 times a day. She is also taking baclofen 10 mg once a day. Patient's medications, allergies, past medical, surgical, social and family histories were reviewed and updated as appropriate. CURRENT MEDICATIONS: Current Outpatient Prescriptions Medication Sig Dispense Refill albuterol (VENTOLIN HFA) 90 mcg/puff inhaler Take 1 puff by mouth. amLODIPine (NORVASC) 10 MG tablet Take 10 mg by mouth Daily. aspirin 81 mg chewable tablet Take 81 mg by mouth Daily. atorvaSTATin (LIPITOR) 40 mg tablet Take 40 mg by mouth nightly. benzonatate (TESSALON) 200 MG capsule Take 200 mg by mouth 3 times daily as needed. fentaNYL (DURAGESIC) 25 mcg/hr APPLY 1 PATCH TO THE SKIN Q 3 DAYS 0 gabapentin (NEURONTIN) 100 mg capsule Take 100 mg by mouth 2 times daily. 1 levothyroxine (SYNTHROID) 25 mcg tablet Take 25 mcg by mouth Daily. 5 lisinopril (PRINIVIL, ZESTRIL) 20 mg tablet Take 20 mg by mouth Daily. 1 magnesium, as oxide, 250 MG tablet Take 250 mg by mouth Daily. metFORMIN (GLUCOPHAGE) 500 mg tablet Take 500 mg by mouth nightly. Takes 1 tab in the m orning and 2 tabs at night nitroglycerin (NITROSTAT) 0.[address] 0.4 mg under the tongue every 5 minute s as needed. omeprazole (PRILOSEC) 40 MG capsule Take 40 mg by mouth Daily. 2 raNITIdine (ZANTAC) 150 mg tablet Take 150 mg by mouth 2 times daily. No current facility-administered medications for this visit. [...] HEMATOLOGIC/LYMPHATIC: No abnormal bleeding PHYSICAL EXAMINATION: Vitals: 02/11/18 1546 BP: 96/60 Pulse: 79 PainSc: 8 PainLoc: Back Body mass index is 24.98 [...] has no apparent deficits with short or senior care memory. She has appropriate fund of knowledge [...] the left leg. Lumbar facet loading was positive. Strength andrea ting showed 4+/5 strength throughout the lower extremities with exception of left hip flexio n 4/5. The patient was unable to heel and toe walk. There was no redness, effusion, warmth or [...] at C7-T1 along with multilevel facet arthritis. Lumbar MRI 01/22/18: severe DDD throughout lumbar spine with central canal stenosis from L3- S1 and severe bilateral foraminal stenosis at L5/S1. Descending L5 and S1 nerve root impinge ments. ASSESSMENT: 1. Lumbar radiculopathy PLAN: 1) Today [...] Imaging: As descibed above in radiology review. 4) The patient has had significant conservative care including medications (NSAIDS and narc otics), PT (multiple sessions over the years) and patient care nursing assistant. Unfortunately Clementine Winchester continues to have significant discomfort. It appears to me that the pain is primari ly coming from L5/S1 lumbar nerve root impingement as appreciated on recent MRI. I did feel that Clementine Winchester would be a good candidate for a bilateral L5/S1 TFESI. 5) Patient will follow up with me 3 weeks post injection to discuss any imaging and/or prog ress with today's treatment plan. 6) If current treatment plan is insufficient for symptom relief we could try neurosurgery r eferral as the next therapy option. I spent 30 minutes in visit with Clementine Winchester today with the majority of time spent cou nselling the patient on her diagnosis, options for her care, and coordinating her care. ELECTRONICALLY SIGNED BY: Mono Diaz PA-C, 02/11/18 documented in this e ncounter Plan of Treatment +--------+---------+ + + + | Date | Type | Specialty | Care Team | Description | +--------+---------+ + + + | 05/14/ | Office | Orthopedic Surgery | Monster White MD | | | 2018 | Visit | | [address] | | | | | | [place] | | | | | | [place] [address] | | | | | | [phone] | | | | | | | | +--------+---------+ + + + | 07/30/ | Office | Cardiology | Agata Tinajero DO | | | 2019 | Visit | | [address] | | | | | | [place] | | | | | | [address] | | | | | | | | +--------+---------+ + + + documented as of this encounter Procedures + +--------+ + + + | Procedure Name | Priori | Date/Time | Associated Diagnosis | Comments | | | ty | | | | + +--------+ + + + | LABS - EXTERNAL SCAN | | 01/17/2018 | | Results for this | | | | 12:00 AM | | procedure are in the | | | | PDT | | results section. | + +--------+ + + + documented in this encounter Results FL BA[place]ISTA Lumbar Transforaminal (02/24/2018 4:11 PM PDT) + + | Specimen | + + | | + + + + -+ | Narrative | Performed At | + + -+ | 02/24/2018 | [facility] | | Bilateral Transforaminal Epidural Steroid Injections Diagnosis: Lumbar | | | radiculopathy ICD-10 Code M54.16 Clementine Winchester presents to the | | | fluoroscopy suite for fluoroscopically-guided bilateral L5-S1 | | | transforaminal epidural steroid injections as part of conservative | | | management for chronic pain with lumbar radiculopathy and degenerative | | | disc disease. After informed consent was obtained, the patient lay in | | | the prone position on the fluoroscopy table. The areas were | | | identified under fluoroscopic guidance. The areas were prepped and | | | draped in sterile fashion. A 25-gauge, 1.5-inch needle was inserted | | | into each region and approximately 3 mL of buffered 1% lidocaine was | | | infused. Then, a 22-gauge spinal needle was inserted into the | | | posterior superior transforaminal space bilaterally and advanced into | | | the epidural space under fluoroscopic guidance. Confirmation into the | | | epidural space was obtained with infusion of approximately 1 mL of | | | Omnipaque contrast which showed epidural flow as well as nerve sheath | | | flow. Then, a combination of 2 mL of 1% lidocaine and 1.5 mL of 10 | | | mg/mL dexamethasone was infused, divided between the two sides. The | | | patient tolerated the procedure well without complications. Pre- and | | | post-procedure blood pressures were stable. The patient was given | | | verbal as well as written follow-up instructions. Prior to the start | | | of the procedure, the following were performed and/or verified, | | | including correct patient identity, correct site/side marked and | | | visible, agreement on the procedure to be done, correct patient | | | positioning and an accurate procedure consent form. Any safety | | | precautions based on clinical history and/or medication use have been | | | addressed. I personally performed the procedure above. Estimated blood | | | loss: MinimalComplications: NoneFindings: As expectedAnesthesia: | | | Local 1% Lidocaine | | |visible, agreement on the procedure to be done, correct patient | | |positioning and an accurate procedure consent form. Any safety precautions | | |based on clinical history and/or medication use have been addressed. I | | |personally performed the procedure above. | | | | | |Estimated blood loss: Minimal | | |Complications: None | | |Findings: As expected | | |Anesthesia: Local 1% Lidocaine | | | | | | | | + + -+ + +---------+ + + | Performing | Address | City/State/Zipcode | Phone Number | | Organization | | | | + +---------+ + + | [facility] | | | | + +---------+ + + LABS - EXTERNAL SCAN (01/17/2018 12:00 AM PDT) + + + | Narrative | Performed At | + + + | Ordered by an | | | unspecified provider. | | + + + documented in this encounter Visit Diagnoses + + | Diagnosis | + + | Lumbar radiculopathy - Primary Thoracic or lumbosacral neuritis or radiculitis, | | unspecified | + + documented in this encounter
--- OUTSIDE RECORDS SUMMARY | ~2019-05-12 | XMS | Encounter Summary ---
Demographics + + + | Address | [address] | | | [place] [address] | + + + | Home Phone | | + + + | Preferred Language | Unknown | + + + | Marital Status | | + + + | Holiness Affiliation | 1041 | + + + | Race | Unknown | + + + | Ethnic Group | Unknown | + + + Author + + + | Author | [facility] | | | and [place] | + + + | Organization | [facility] | | [...] [place], | | | | | [place] [address] | | + + + + + | Kellen Briones | ECON | [place], [place] | | | | | [address] | | + + + + + Care Team Providers + +------+ + | Care Infertility Medical Assistant Name | Role | Phone | [...] [address] | | | | | | ([facility]) [address] | [address] | | | | | | cervical | [place] | | | | | | spinal | [address] | | | | | | fusion | Phone: | | | | | | | [phone] | | | | | | | Fax: | | | | | | | [phone] | | +--------+ + + + + + Reason for Visit +---------+ + | Reason | Comments | +---------+ + | Post Op | 3m PO | +---------+ + Encounter Details +--------+---------+ + + + | Date | Type | Department | Care Team | Description | +--------+---------+ + + + | 07/04/ | Office | [facility] | Irving Becerril, | Cervical myelopathy | | 2017 | Visit | NEUROSURGERY [address] | DO [address] | ([facility]) (Primary Dx); | | | | [address] | [address] [place], [place] | S/P cervical spinal | | | | [place], [place] | [id number] | fusion | | | | [address] | | | | | | [phone] | | | +--------+---------+ + + + [...] m the original. Irving Becerril DO [address] [facility], [address] [place] [address] FAX: NEUROSURGERY FOLLOW-UP CHIEF COMPLAINT: Chief Complaint [...] (HCC) Hypertension Cancer (HCC) Right breast Hyperlipidemia [place] (myocardial infarction) (HCC) GERD (gastroesophageal reflux disease) Asthma Arthritis Lumbar radiculopathy 07/23/2012 DDD (degenerative disc disease), lumbar 07/23/2012 Spinal stenosis of lumbar region with orsacxybosdud-V3-Q1 level moderately severe 2012 Facet arthritis of [...] 1989' Mastectomy, radical 1987 Right Breast reconstruction [id number] About 10 surgeries Bone spur left foot Blepharoptosis repair 2009 bilateral Cervical spine surgery Anterior 03/30/2016 Procedure: C3-4, C4-5, C5-6, C6-7 Anterior Cervical Discectomy w/ Fusion and Plating; Enamorado rgeon: Irving Becerril DO; Location: [facility] MAIN OR CURRENT MEDICATIONS: Current Outpatient Prescriptions [...] (HCC) Hypertension Cancer (HCC) Right breast Hyperlipidemia [place] (myocardial infarction) (HCC) GERD (gastroesophageal reflux disease) Asthma Arthritis Lumbar radiculopathy 07/23/2012 DDD (degenerative disc disease), lumbar 07/23/2012 Spinal stenosis of lumbar region with etlhlbsgjpkks-E1-J0 level moderately severe 2012 Facet arthritis of [...] | | | | | [place] [address] | | | | | | [phone] | | | | | | | | +--------+---------+ + + + | 07/30/ | Office | Cardiology | Agata Tinajero DO | | | 2019 | Visit | | [address] | | | | | | [place] | | | | | | [address] | | | | | | | [...]
--- OUTSIDE RECORDS SUMMARY | ~2019-05-12 | XMS | Encounter Summary ---
Demographics + + + | Address | [address] | | | [place] [address] | + + + | Home Phone | | + + + | Preferred Language | Unknown | + + + | Marital Status | | + + + | Jewish Affiliation | 1041 | + + + | Race | Unknown | + + + | Ethnic Group | Unknown | + + + Author + + + | Author | [facility] | | | and [place] | + + + | Organization | [facility] | | | and [place] | + + + | Address | Unknown | + + + | Phone | Unavailable | + + + Support + + + + + | Name | Relationship | Address | Phone | + + + + + | Lucy Winchester | ECON | [place], | | | | | [place] [address] | | + + + + + | Kellen Briones | ECON | [place], [place] | | | | | [address] | | + + + + + Care Team Providers + +------+ + | Care Cell Coverer Name | Role | Phone | + +------+ + | Barb Marte | PCP | | + +------+ + Reason for Visit Diagnostic/Screening (Routine) +--------+--------+ + + + + | Status | Reason | Specialty | Diagnoses / | Referred By | Referred To | | | | | Procedures | Contact | Contact | +--------+--------+ + + + + | Closed | | | Diagnoses | Christopher, | [facility] | | | | | Lumbar | [facility] | | | | | stenosis | [address] | | | | | with | [address] | [facility] | | | |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 | [address] [place] | [place] | | | | | claudication | B | [address] | | | | | Procedures | [place], [place] | Phone: | | | | | CT Lumbar | [address] | [phone] | | | | | Spine wo | Phone: | Fax: | | | | | Contrast | [phone] | [phone] | | | | | | Fax: | | | | | | | [phone] | | +--------+--------+ + + + + Encounter Details +--------+ + + + + | Date | Type | Department | Care Team | Description | +--------+ + + + + | 04/09/ | Hospital | [facility] | Monster White MD | | | 2019 | Encounter | [facility] [address] | [address] | | | | | [place], | [place], | | | | | [place] [address] | [place] [address] | | | | | [phone] | [phone] | | | | | | | [...] + +---------+ + + | DULoxetine | TK ONE C PO QD | | 3 | 07/23/19 | | | (CYMBALTA) [address] | | | | 19 | | | capsule | | | | | | + + + +---------+ + + | fentaNYL | APPLY 1 PATCH TO THE | | 0 | 02/07/20 | | | (DURAGESIC) 25 | SKIN Q 3 DAYS | | | 18 | | | mcg/hr | | | | [...] | | | | | [place] [address] | | | | | | [phone] | | | | | | | | +--------+---------+ + + + | 07/30/ | Office | Cardiology | Agata Tinajero DO | | | 2019 | Visit | | [address] | | | | | | [place] | | | | | | [address] | | | | | | | | +--------+---------+ + + + documented as of this encounter Procedures + +--------+ + + + | Procedure Name | Priori | Date/Time | Associated Diagnosis | Comments | | | ty | | | | + +--------+ + + + | CT LUMBAR SPINE WO | Routin | 04/09/2019 | Lumbar stenosis | Results for this | | CONTRAST | e | 2:06 PM | with neurogenic | procedure are in the | | | | PST | claudication | results section. | + +--------+ + + + documented in this encounter Results CT Lumbar Spine wo Contrast (04/09/2019 2:06 PM PST) + + | Specimen | + + | | + + + + + | Impressions | Performed At | + + + | Multilevel lumbar spondylosis as described above. Mild | [facility] | | leftward curvature. Mild anterolisthesis of L4 with slight | | | anterolisthesis of L3 and retrolisthesis of L2. Diverticulosis. | | | Left nephrolith. Dictated and Signed by: Westley Villaseñor MD | | | Electronically signed: 04/09/2019 2:53 PM | | + + + + + + | Narrative | Performed At | + + + | TECHNIQUE: Noncontrast axial CT imaging was obtained through the | [facility] | | lumbar spine with coronal and sagittal reformats. CLINICAL | | | INFORMATION: Back pain or radiculopathy, > 6 wks COMPARISON: MRI | | | dated 04/09/2019 and radiographs 04/09/2019. FINDINGS: Mild | | | leftward curvature. Mild degenerative anterolisthesis of L4. Slight | | | retrolisthesis of L2 and anterolisthesis of L3. Sclerotic endplate | | | changes at L1-L2, L2-L3, L4-L5, and L5-S1. No acute fracture. | | | Normal height of the vertebral bodies. Probable bony | | | demineralization. T12-L1: Mild disc height loss and mild bilateral | | | facet arthrosis. L1-L2: Moderate disc height loss with osteophyte | | | formation. Mild bilateral facet arthrosis. L2-L3: Moderate to | | | severe disc height loss with osteophyte formation. Mild to moderate | | | bilateral facet arthrosis. L3-L4: Moderate to severe disc height | | | loss with osteophyte formation. Moderate bilateral facet arthrosis. | | | L4-L5: Moderate to severe disc height loss with osteophyte | | | formation. Prominent vacuum phenomenon noted. Moderate bilateral | | | facet arthrosis. L5-S1: Moderate to severe disc height loss with | | | osteophyte formation. Prominent vacuum phenomenon noted. Moderate | | | bilateral facet arthrosis. See MRI of the lumbar spine for details | | | of the neural foramina and spinal canal. Bilateral SI joint | | | degenerative changes with vacuum phenomenon noted. Normal caliber | | | of the abdominal aorta with prominent vascular calcifications. Left | | | lower pole renal calculus measuring at least 4 mm. Left colon | | | diverticula are noted. | | + + + + + | Procedure Note | + + | Howard, Rad Results In - 04/09/2019 2:56 PM PST | | TECHNIQUE: Noncontrast axial CT imaging was obtained through the lumbar spine | | with coronal and sagittal reformats. | | | | CLINICAL INFORMATION: Back pain or radiculopathy, > 6 wks | | | | COMPARISON: MRI dated 04/09/2019 and radiographs 04/09/2019. | | | | FINDINGS: | | Mild leftward curvature. Mild degenerative anterolisthesis of L4. Slight | | retrolisthesis of L2 and anterolisthesis of L3. | | | | Sclerotic endplate changes at L1-L2, L2-L3, L4-L5, and L5-S1. | | | | No acute fracture. Normal height of the vertebral bodies. Probable bony | | demineralization. | | | | T12-L1: Mild disc height loss and mild bilateral facet arthrosis. | | | | L1-L2: Moderate disc height loss with osteophyte formation. Mild bilateral facet | | arthrosis. | | | | L2-L3: Moderate to severe disc height loss with osteophyte formation. Mild to | | moderate bilateral facet arthrosis. | | | | L3-L4: Moderate to severe disc height loss with osteophyte formation. Moderate | | bilateral facet arthrosis. | | | | L4-L5: Moderate to severe disc height loss with osteophyte formation. Prominent | | vacuum phenomenon noted. Moderate bilateral facet arthrosis. | | | | L5-S1: Moderate to severe disc height loss with osteophyte formation. Prominent | | vacuum phenomenon noted. Moderate bilateral facet arthrosis. | | | | See MRI of the lumbar spine for details of the neural foramina and spinal canal. | | | | Bilateral SI joint degenerative changes with vacuum phenomenon noted. | | | | Normal caliber of the abdominal aorta with prominent vascular calcifications. | | Left lower pole renal calculus measuring at least 4 mm. Left colon diverticula | | are noted. | | | | IMPRESSION: | | | | Multilevel lumbar spondylosis as described above. | | | | Mild leftward curvature. Mild anterolisthesis of L4 with slight anterolisthesis | | of L3 and retrolisthesis of L2. | | | | Diverticulosis. | | | | Left nephrolith. | | | | Dictated and Signed by: Westley Villaseñor MD | | Electronically signed: 04/09/2019 2:53 PM | + + + +---------+ + + | Performing | Address | City/State/Zipcode | Phone Number | | Organization | | | | + +---------+ + + | [facility] | | | | + +---------+ + + documented in this encounter Visit Diagnoses Not on filedocumented in this encounter"
--- OUTSIDE RECORDS SUMMARY | ~2019-05-12 | XMS | Encounter Summary ---
Demographics + + + | Address | [address] | | | [place] [address] | + + + | Home Phone | | + + + | Preferred Language | Unknown | + + + | Marital Status | | + + + | Holiness Affiliation | 1041 | + + + | Race | Unknown | + + + | Ethnic Group | Unknown | + + + Author + + + | Author | [facility] | | | and [place] | + + + | Organization | [facility] | | [...] [place], | | | | | [place] [address] | | + + + + + | Kellen Briones | ECON | [place], [place] | | | | | [address] | | + + + + + Care Team Providers + +------+ + | Care Enrollment Services Dean Name | Role | Phone | + [...] side (Primary Dx); | | | | [place], | [place], [place] | Facet arthritis of | | | | [place] [address] | [address] | cervical region; DDD | | | | [phone] | | (degenerative disc | | | [...] with | | | | | | wycexubnnbfry-S3-T7 | | | | | | level [...] of the procedure you must provide a gravel truck driver to take you home. For all [...] She did also receive epidural injections with vt on two occasions. The most recent were [...] 8. Spinal stenosis of lumbar region with fejkmvwypsjkn-B7-G6 level moderately severe 9. Facet arthritis of [...] extension x-rays of the lumbar spine at [facility]. I previously requested that these be placed [...] | 2018 | Visit | | [address] | | | | | | [place], | | | | | | [place] [address] | | | | | | [phone] | | | | | | | | +--------+---------+ + + + | 07/30/ | Office | Cardiology | Agata Tinajero DO | | | 2020 | Visit | | [address] | | | | | | [place], [place] | | | | | | [address] | | | | | | | [...] Code 724.4 Ms. Clementine Cortez | [facility] | | Annabella presents to [...] + + | Performing | Address | City[facility]State[facility] | Phone Number | | Organization | | | | + + + + + | [facility] | [address] | [place], [place] | [phone] | | [facility] | | [address] | | | - IMAGING | | [...] Code 721.0 Ms. Clementine W[place] | [facility] | | presents to the fluoroscopy suite for fluoroscopically-guided C4-C5, | [facility] | | C5-C6 and C6-C7 facet injections [...] [address] 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
--- OUTSIDE RECORDS SUMMARY | ~2019-05-12 | XMS | Encounter Summary ---
Demographics + + + | Address | [address] | | | [place] [address] | + + + | Home Phone | | + + + | Preferred Language | Unknown | + + + | Marital Status | | + + + | Confucianism Affiliation | 1041 | + + + [...] [place], | | | | | [place] [address] | | + + + + + | Kellen Briones | ECON | [place], [place] | | | | | [address] | | + + + + + Care Team Providers + +------+ + | Care Mercury Recoverer Name | Role | Phone | + +------+ + | Anna De Guzman PA-C | PCP | | + +------+ + Encounter Details +--------+ + + + + | Date | Type | Department | Care Team | Description | +--------+ + + + + | 12/29/ | Orders Only | [facility] [place] | Irving Becerril, | Neck pain (Primary | | 2016 | | NEUROSURGERY [address] | DO [address] | Dx) | | | | [address] | [address] [place], [place] | | | | | [place], [place] | [id number] | | | | | [address] | | | | | | [phone] | | | +--------+ + + + [...] 2019 | Visit | | [address] | | | | | | [place] | | | | | | [place] [address] | | | | | | [phone] | | | | | | | | +--------+---------+ + + + | 07/30/ | Office | Cardiology | Agata Tinajero DO | | | 2019 | Visit | | [address] | | | | | | [place] | | | | | | [address] | | | | | | | | +--------+---------+ + + + documented as of this encounter Results XR Cervical [...] + | Howard, Rad Results In - 02/02/2016 3:47 PM PDT [...] [address] | [place] | [phone] | | [facility] | | [address] | | | - IMAGING | | | | + + + + + documented in this encounter Visit Diagnoses + + | Diagnosis | + + | Neck pain - Primary Cervicalgia | + + documented in this encounter"
--- OUTSIDE RECORDS SUMMARY | ~2019-05-12 | XMS | Encounter Summary ---
Demographics + + + | Address | [address] | | | [place] [address] | + + + | Home Phone | | + + + | Preferred Language | Unknown | + + + | Marital Status | | + + + | Yarsani Affiliation | 1041 | + + + | Race | Unknown | + + + | Ethnic Group | Unknown | + + + Author + + + | Author | [facility] | | | and [place] | + + + | Organization | [facility] | | | and [place] | + + + | Address | Unknown | + + + | Phone | Unavailable | + + + Support + + + + + | Name | Relationship | Address | Phone | + + + + + | Lucy Winchester | ECON | [place], | | | | | [place] [address] | | + + + + + | Kellen Briones | ECON | [place], [place] | | | | | [address] | | + + + + + Care Team Providers + +------+ + | Care Cut Roll Machine Offbearer Name | Role | Phone | + +------+ + | Anna De Guzman PA-C | PCP | | + +------+ + Reason for Visit + + + | Reason | Comments | + + + | Back Pain | low back with a burning sensation on front of left leg | + + + Encounter Details +--------+---------+ + + + | Date | Type | Department | Care Team | Description | +--------+---------+ + + + | 09/30/ | Office | [facility] [place] | [place], | DDD (degenerative | | 2014 | Visit | PHYSIATRY [address] | [place] [address] | disc disease), | | | | [place], | [address] [place], | lumbar (Primary Dx); | | | | [place] [address] | [place] [address] | Spinal stenosis of | | | | [phone] | [phone] | lumbar region with | | | | | | sapzmmgoaiayj-X1-J5 | | | | | | level moderately | | | | | | severe; Lumbar | | | | | | radiculopathy; | | | | | | 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; | | | | | | Facet arthritis of | | | | | | lumbar region-Most | | | | | | severe at | | | | | | L4-L5,L5-S1 | +--------+---------+ + + + Social History [...] + + + | Blood Pressure | 145/63 | 09/30/2014 12:06 PM | | | | | PDT | | + + + + + | Pulse | 67 | 09/30/2014 12:06 PM | | | | | PDT [...] Weight | 69.4 kg (153 lb) | 09/30/2014 12:06 PM | | | | | PDT | | + + + + + | Height | 160 cm (5' 3") | 09/30/2014 12:06 PM | | | | | PDT | | + + + + + | Body Mass Index | 27.1 | 09/30/2014 12:06 PM | | | | | PDT | | + + + + + documented in this encounter Patient Instructions Patient Instructions Claudia Das PA-C - 09/30/2014 12:21 PM PDT Follow-up at the hospital thirty [...] of the procedure you must provide a cdl driver to take you home. For all procedur es it is recommended that someone else drive you home. documented in this encounter Progress Notes Claudia Das PA-C - 09/30/2014 12:27 PM PDTFormatting of this note might be differe nt from the original. CHIEF COMPLAINT: Chief Complaint Patient presents with Back Pain low back with a burning sensation on front of left leg HISTORY OF PRESENT ILLNESS: The patient is a 74 y.o. female being seen today in follow-up for complaints of low back pa in. The patient has been seen for this complaint in the past. Previously it was recommend ed that she receive bilateral L5/S1 TFESI for spinal stenosis. Her last injection was in [facility] of this year. She reports that the treatment was effective for approximately 2 months . The patient's symptoms originally began 3 years ago after slipping in her shower. Overall the patient reports that the symptoms are worsening in the last week or so. She rates the pain as 7 on scale of 1-10. She describes the pain as a twisting sensation to her low back and an aching pain into both legs, sharp at times. Her symptoms worsen with standing and prolonged walking. Her symptoms improve with lying d own, sitting down and medication use. The patient does not describe numbness of the bilateral lower extremities. She does not r eport weakness of the bilateral lower extremities. The patient does not report recent falls or trauma. She does not have bowel and bladder dysfunction. She does not have saddle anesthesia. Treatments for these complaints have included prior steroid injections, physical therapy, c hiropractics therapy and narcotic medications use; she currently uses Henderson, Flexeril and ga bapentin. Patient's medications, allergies, [...] 300 mg by mouth 3 times daily. metFORMIN [...] a fog. Tape [Adhesive & Tape] Rash REVIEW OF SYSTEMS: GENERALLY: No fever, [...] No abnormal bleeding PHYSICAL EXAMINATION: Filed Vitals: 09/30/14 1206 BP: 145/63 Pulse: 67 PainSc: 7 PainLoc: Back Body mass index is 27.11 kg/(m^2). 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 She has appropriate fund of knowledge [...] L5-S1, facet a rthritis, DDD. ASSESSMENT: 1. DDD (degenerative disc disease), lumbar 2. Spinal stenosis of lumbar region with yfkrcvxhmbyyw-W3-X7 level moderately severe 3. Lumbar radiculopathy 4. Spondylolisthesis of lumbar region 5. 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 The patient has benefited from prior epidural injections and is hoping to receive addit ional injections. I did feel that was appropriate and I offered to repeat the bilateral L5- S1 transforaminal epidural steroid injections. This [facility]. 2. I did not make any changes in her medications today. 3. The patient was advised to follow up with Dr. Mathew regarding the neck symptoms to discus s surgery. ELECTRONICALLY SIGNED BY: Claudia Das SUPERVISING PHYSICIAN: Tk Ann MD, who was present in the clinic today documented in t his encounter Plan of Treatment +--------+---------+ + + + | Date | Type | Specialty | Care Team | Description | +--------+---------+ + + + | 05/14/ | Office | Orthopedic Surgery | Monster White MD | | | 2018 | Visit | | [address] | | | | | | [place], | | | | | | [place] [address] | | | | | | [phone] | | | | | | | | +--------+---------+ + + + | 07/30/ | Office | Cardiology | Agata Tinajero DO | | 2019 | Visit | | [address] | | | | | | [place], [place] | | | | | | [address] | | | | | | | [...] ICD-9 Code 724.4 Clementine Phoenix | [facility] | | Annabella presents to the fluoroscopy suite for fluoroscopically-guided [facility] | | bilateral L5-S1 transforaminal epidural [...] [address] | [place] | [phone] | | 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
--- OUTSIDE RECORDS SUMMARY | ~2019-05-12 | XMS | Encounter Summary ---
Demographics + + + | Address | [address] | | | [place] [address] | + + + | Home Phone | | + + + | Preferred Language | Unknown | + + + | Marital Status | | + + + | Presybeterian Affiliation | [id number] | + + + | Race | Unknown | + + + | Ethnic Group | Unknown | + + + Author + + + | Author | [facility] | | | and [place] | + + + | Organization | [facility] | | [...] [place], | | | | | [place] [address] | | + + + + + | Kellen Briones | ECON | [place], [place] | | | | | [address] | | + + + + + Care Team Providers + +------+ + | Care Aviation Engineer Name | Role | Phone | [...] | | | claudication | B | [phone] | | | | | Procedures | [place], [place] | Phone: | | | | | MRI Lumbar | [id number] | [phone] | | | | | Spine wo | Phone: | Fax: | | | | | Contrast | [phone] | [phone] | | | | | | Fax: | | | | | | | [phone] | | +--------+--------+ + + + + Encounter Details +--------+ + + + + | Date | Type | Department | Care Team | Description | +--------+ + + + + | 04/09/ | Hospital | [facility] | Monster White MD | | | 2019 | Encounter | MED CTR MRI [address] | | | | | [place], | [place], | | | | | [place] [address] | [place] [address] | | | | | [phone] | [phone] | | | | | | | [...] | | | | | [place] [address] | | | | | | [phone] | | | | | | | | +--------+---------+ + + + | 07/30/ | Office | Cardiology | Agata Tinajero DO | | | 2019 | Visit | | [address] | | | | | | [place] | | | | | | [address] | | | | | | | | +--------+---------+ + + + documented as of this encounter Procedures + +--------+ + + + | Procedure Name | Priori | Date/Time | Associated Diagnosis | Comments | | | ty | | | | + +--------+ + + + | MRI LUMBAR SPINE WO | Routin | 04/09/2019 | Lumbar stenosis | Results for this | | CONTRAST | e | 1:51 PM | with neurogenic | procedure are in the | | | | PST | claudication | results section. | + +--------+ + + + documented in this encounter Results MRI Lumbar Spine wo Contrast (04/09/2019 1:51 PM PST) + + | Specimen | + + | | + + + + + | Impressions | Performed At | + + + | Levoconvex scoliosis with associated spondylosis and | [facility] | | spondylolisthesis. There is central spinal canal narrowing that | | | most significantly affects L3-L4 and L4-L5 where it is at least | | | moderate but unchanged. There is neural foraminal narrowing that | | | is effects the right side at L1-L2 where it is severe and bilaterally | | | at L5-S1 there is moderate to severe on the right right and severe | | | left. Both of these levels are also unchanged. Posterior | | | ligament hypertrophy at T10-T11 appears to contact the posterior | | | aspect of the cord as seen on the sagittal sequence. Dictated and | | | Signed by: Santino Jewell MD Electronically signed: 04/09/2019 | | | 2:17 PM | | + + + + + + | Narrative | Performed At | + + + | EXAM: MRI LUMBAR SPINE WO CONTRAST dated 04/09/2019 12:57 PM | [facility] | | HISTORY:Back pain or radiculopathy, > 6 wks COMPARISON: MRI | | | 01/22/2018. Lumbar spine radiograph 12/29/2018. TECHNIQUE: | | | Multiplanar multisequence MR imaging of the lumbar spine without | | | contrast. This is performed on a 1.5Tesla MRI scanner. | | | FINDINGS:There are 5 lumbar-type vertebral bodies. This is either | | | assumed for counting purposes or documented on prior studies. | | | Levoconvex scoliosis. There is slight retrolisthesis of L5. | | | There is approximately 6 mm of anterolisthesis of L4. Slight | | | retrolisthesis of L1 and L2. Diffuse disc desiccation. Disc | | | narrowing at L1-L2 through L5. There are mild Modic type I endplate | | | changes at L2-L3, L3-L4, L4-L5, and L5-S1. Modic type II endplate | | | changes at L1-L2. No compression deformities. The conus | | | terminates at the L1 level. The visible distal cord is | | | unremarkable. At T10-T11 there is posterior ligamentous hypertrophy | | | seen essentially contouring the posterior surface of the cord. No | | | posterior disc protrusion. The neural foramen are patent. There is | | | a small posterior disc protrusion at T11-T12 and posterior ligament | | | hypertrophy with mild narrowing of the central spinal canal. The | | | neural foramen at this level are patent. These findings are as seen | | | only on the sagittal sequence. The following levels are evaluated | | | in the axial plane: T12-L1: Small posterior disc protrusion. | | | Small left foraminal component of disc. Mild narrowing of the | | | central spinal canal and left neural foramen. No significant | | | interval change. L1-2: Slight retrolisthesis. Broad posterior | | | disc protrusion. Mild ligamentum flavum redundancy. Mild to | | | moderate narrowing of the central spinal canal. Foraminal component | | | of disc and marginal osteophyte on the right and disc on the left. | | | Severe right and mild left neural foraminal narrowing. This level | | | has not significantly changed. L2-3: There is circumferential | | | disc bulge. Foraminal components of disc and marginal osteophyte. | | | Mild to moderate facet arthrosis. Mild ligament redundancy. | | | Mild to moderate narrowing of the central spinal canal. Mild | | | bilateral neural foraminal narrowing. This level is not | | | significantly changed. L3-4: Anterolisthesis. Circumferential | | | disc bulge. Foraminal components of disc and marginal osteophyte. | | | There is mild to moderate facet arthrosis and ligamentum flavum | | | redundancy. There is moderate narrowing of the central spinal | | | canal. There is mild to moderate left and mild right neural | | | foraminal narrowing. This level has not significantly changed. | | | L4-5: Anterolisthesis. Broad posterior disc protrusion. Moderate | | | facet arthrosis. Moderate narrowing of the central spinal canal. | | | Mild to moderate left and mild right neural foraminal narrowing. | | | This level has not progressed. L5-S1: Slight retrolisthesis. | | | Broad posterior disc protrusion. Facet arthrosis bilaterally is | | | moderate to severe. Foraminal components of disc and marginal | | | osteophyte bilaterally. Severe left and moderate to severe right | | | neural foraminal narrowing. This level has not significantly | | | changed. Partial visualization of colonic diverticulosis. | | + + + + + | Procedure Note | + + | Howard, Rad Results In - 04/09/2019 2:20 PM PST EXAM: MRI LUMBAR SPINE WO CONTRAST | | dated 04/09/2019 12:57 PMHISTORY:Back pain or radiculopathy, > 6 wksCOMPARISON: MRI | | 01/22/2018. Lumbar spine radiograph 12/29/2018.TECHNIQUE: Multiplanar multisequence MR | | imaging of the lumbar spine withoutcontrast. This is performed on a 1.5Tesla MRI | | scanner. FINDINGS:There are 5 lumbar-type vertebral bodies. This is either assumed | | forcounting purposes or documented on prior studies. Levoconvex scoliosis. Thereis | | slight retrolisthesis of L5. There is approximately 6 mm of anterolisthesisof L4. | | Slight retrolisthesis of L1 and L2. Diffuse disc desiccation. Discnarrowing at L1-L2 | | through L5. There are mild Modic type I endplate changes atL2-L3, L3-L4, L4-L5, and | | L5-S1. Modic type II endplate changes at L1-L2. Nocompression deformities. The conus | | terminates at the L1 level. The visibledistal cord is unremarkable. At T10-T11 there | | is posterior ligamentoushypertrophy seen essentially contouring the posterior surface of | | the cord. Noposterior disc protrusion. The neural foramen are patent. There is a | | smallposterior disc protrusion at T11-T12 and posterior ligament hypertrophy withmild | | narrowing of the central spinal canal. The neural foramen at this levelare patent. | | These findings are as seen only on the sagittal sequence.The following levels are | | evaluated in the axial plane:T12-L1: Small posterior disc protrusion. Small left | | foraminal component ofdisc. Mild narrowing of the central spinal canal and left neural | | foramen. Nosignificant interval change.L1-2: Slight retrolisthesis. Broad posterior | | disc protrusion. Mild ligamentumflavum redundancy. Mild to moderate narrowing of the | | central spinal canal. Foraminal component of disc and marginal osteophyte on the right | | and disc on theleft. Severe right and mild left neural foraminal narrowing. This level | | hasnot significantly changed.L2-3: There is circumferential disc bulge. Foraminal | | components of disc andmarginal osteophyte. Mild to moderate facet arthrosis. Mild | | ligamentredundancy. Mild to moderate narrowing of the central spinal canal. | | Mildbilateral neural foraminal narrowing. This level is not significantly changed.L3-4: | | Anterolisthesis. Circumferential disc bulge. Foraminal components ofdisc and marginal | | osteophyte. There is mild to moderate facet arthrosis andligamentum flavum redundancy. | | There is moderate narrowing of the central spinalcanal. There is mild to moderate | | left and mild right neural foraminalnarrowing. This level has not significantly | | changed. L4-5: Anterolisthesis. Broad posterior disc protrusion. Moderate | | facetarthrosis. Moderate narrowing of the central spinal canal. Mild to moderateleft | | and mild right neural foraminal narrowing. This level has not progressed. L5-S1: Slight | | retrolisthesis. Broad posterior disc protrusion. Facet arthrosisbilaterally is | | moderate to severe. Foraminal components of disc and marginalosteophyte bilaterally. | | Severe left and moderate to severe right neuralforaminal narrowing. This level has not | | significantly changed. 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 Both of these levels are also | | unchanged.Posterior ligament hypertrophy at T10-T11 appears to contact the | | posterioraspect of the cord as seen on the sagittal sequence.Dictated and Signed by: | | Santino Jewell MD Electronically signed: 04/09/2019 2:17 PM | | | |L4-5: Anterolisthesis. Broad posterior disc protrusion. Moderate facet | |arthrosis. Moderate narrowing of the central spinal canal. Mild to moderate | |left and mild right neural foraminal narrowing. This level has not progressed. | | | |L5-S1: Slight retrolisthesis. Broad posterior disc protrusion. Facet arthrosis | |bilaterally is moderate to severe. Foraminal components of disc and marginal | |osteophyte bilaterally. Severe left and moderate to severe right neural | |foraminal narrowing. This level has not significantly changed. | | | |Partial visualization of colonic diverticulosis. 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 | | | |There is central spinal canal narrowing that most significantly affects L3-L4 | |and L4-L5 where it is at least moderate but unchanged. | | | |There is neural foraminal narrowing that is effects the right side at L1-L2 | |where it is severe and bilaterally at L5-S1 there is moderate to severe on the | |right right and severe left. Both of these levels are also unchanged. | | | |Posterior ligament hypertrophy at T10-T11 appears to contact the posterior | |aspect of the cord as seen on the sagittal sequence. | | | |Dictated and Signed by: Santino Jewell MD | | Electronically signed: 04/09/2019 2:17 PM | + + + +---------+ + + | Performing | Address | City/State/Zipcode | Phone Number | | Organization | | | | + +---------+ + + | [facility] | | | | + +---------+ + + documented in this encounter Visit Diagnoses Not on filedocumented in this encounter"
--- OUTSIDE RECORDS SUMMARY | ~2019-05-12 | XMS | Encounter Summary ---
Demographics + + + | Address | [address] | | | [place] [address] | + + + | Home Phone | | + + + | Preferred Language | Unknown | + + + | Marital Status | | + + + | Bahai Affiliation | 1041 | + + + | Race | Unknown | + + + | Ethnic Group | Unknown | + + + Author + + + | Author | [facility] | | | and [place] | + + + | Organization | [facility] | | [...] [place], | | | | | [place] [address] | | + + + + + | Kellen Briones | ECON | [place], [place] | | | | | [address] | | + + + + + Care Team Providers + +------+ + | Care Rescue Instructor Name | Role | Phone | + +------+ + | Anna De Guzman PA-C | PCP | | + +------+ + Reason for Visit + + + | Reason | Comments | + + + | Back Pain | Midline and lower back pain across the back. Pain radiates all | | | the way down right leg. Upper left leg burning sensation. No | | | numbness or tingling. | + + + Encounter Details +--------+---------+ + + + | Date | Type | Department | Care Team | Description | +--------+---------+ + + + | 02/10/ | Office | [facility] | Tk Ann | Lumbar radiculopathy | | 2012 | Visit | PHYSIATRY [address] | (Primary Dx); DDD | | | | [place], | [address] [place], [place] | (degenerative disc | | | | [place] [address] | [phone] | disease), lumbar; | | | | [phone] | | 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; | | | | | | Spinal stenosis of | | | | | | lumbar region with | | | | | | [id number] | | | | | | level moderately | | | | | | severe; Facet | | | | | | arthritis of lumbar | | | | | | region-Most severe | | | | | | at L4-L5,L5-S1; [place] | | | | | | (myocardial | | | | | | infarction) ([facility]); | | | | | | Cancer ([facility]); | | | | | | Diabetes mellitus | | | | | | ([facility]); Coronary | | | | | | artery disease; | | | | | | Trochanteric | | | | | | bursitis of right | | | | | | hip; Cervical | | | | | | stenosis of spinal | | | | | | canal; | | | | | | Spondylolisthesis of | | | | | | cervical region | +--------+---------+ + + + Social [...] + + + | Blood Pressure | 130/70 | 02/10/2013 11:25 AM | | | | | PDT | | + + + + + | Pulse | 71 | 02/10/2013 11:25 AM | | | | | PDT [...] Weight | 73.9 kg (163 lb) | 02/10/2013 11:25 AM | | | | | PDT | | + + + + + | Height | 158.8 cm (5' 2.5") | 02/10/2013 11:25 AM | | | | | PDT | | + + + + + | Body Mass Index | 29.34 | 02/10/2013 11:25 AM | | | | | PDT | | + + + + + documented in this encounter Patient Instructions Patient Instructions Zainab Elizabeth RN - 02/10/2013 12:03 PM PDTFollow-up at the hospital thirty minutes before your scheduled procedure to allow for time to check in. You may eat and drink as usual on the day of the procedure. Do not take any blood thinning medications for at least 5-7 days prior to your procedure. All other medications should be taken as usual. Common blood thinning medications include: Aspirin (a baby aspirin is o.k.) Ibuprofen (Advil or Motrin) Naproxen (Aleve) Nabumetone (Relafen) Clopidogrel (Plavix) Dipyridamole/ASA (Aggrenox) Warfarin (Coumadin) Dabigatran (Pradaxa) There are many others. If you have questions about your medications please contact our off ice. Please also provide a national van truck driver to take you home on the day of the procedure. documented in this encounter Progress Notes Zainab Elizabeth RN - 07/31/2013 4:44 PM PSTI Zainab Elizabeth was practicing as a MA-R, not a RN at this time. k Ann M D - 02/10/2013 11:48 AM PDT Patient ID: Clementine Winchester is a 72 y.o. female. Chief Complaint Patient presents with Back Pain Midline and lower back pain across the back. Pain radiates all the way down right leg. Up per left leg burning sensation. No numbness or tingling. HPI The patient is being seen today in follow-up for complaints of low back pain that radiates primarily into the right leg, although she does actually have pain in the left leg as well. The patient has been seen for this complaint as well as a separate complaint of neck pain th at radiates into the right shoulder. She has actually been seeing Dr. Jordan in [facility] the neck issues and will be receiving neck injections in the near future. The patient's back symptoms began two and [...] in the right leg than the left. She denies bowel and bladder dysfunction. She also denies having saddle anesthesia. Treatments for these complaints have included physical therapy and chiropractics both for t he lower back and the neck. The patient indicates only short term relief from the chiropract ics and increased pain from the physical therapist. She did also receive epidural injection s with me on two occasions. The most recent were in October of 2012. These were bilateral L5-S 1 TFESI. She reports good relief with the injections for a time. MRI of the lumbar spine was reviewed today in detail with the patient. Current Outpatient Prescriptions Medication Status Sig Dispense Refill amLODIPine (NORVASC) 5 mg tablet Active Take 5 mg by mouth Daily. aspirin 325 mg tablet Active Take 325 mg by mouth Daily. benzonatate (TESSALON) 200 MG capsule Active Take 200 mg by mouth 3 times daily as need ed. buPROPion (WELLBUTRIN SR) 150 mg 12 hr tablet Active Take 150 mg by mouth Daily. citalopram (CELEXA) 20 mg tablet Active Take 20 mg by mouth Daily. furosemide (LASIX) 20 mg tablet Active Take 20 mg by mouth Daily. gabapentin (NEURONTIN) 300 mg capsule Active Take 300 mg by mouth 3 times daily. HYDROcodone-acetaminophen (NORCO) 7.5-325 mg per tablet Active Take 1-2 tablets by mout h 3 times daily. metFORMIN (GLUCOPHAGE) 500 mg tablet Active Take 500 mg by mouth nightly. nitroglycerin (NITROSTAT) 0.4 [address] tablet Active Place 0.4 mg under the tongue every 5 minutes as needed. omeprazole (PRILOSEC) 20 mg capsule Active Take 20 mg by mouth every morning (before br eakfast). simvastatin (ZOCOR) 20 mg tablet Active Take 20 mg by mouth nightly. Allergies Allergen Reactions Tizanidine Hcl Other (See Comments) Pt states it affected her balance and made her feel like she was in a fog. Tape (Adhesive & Tape) Rash Review of Systems: The patient reported only the neck and back issues as in HPI. Physical Exam Blood pressure 130/70, pulse 71, height 1.588 m (5' 2.5"), weight 73.936 kg (163 lb). Constitutional: She is oriented to person, place, [...] sign on the left side. Reflex Scores: Patellar reflexes are 2+ on the right side and 2+ on the left side. Achilles reflexes are 2+ on the right side and 2+ on the left side. Skin: Skin is warm, dry and intact. No abrasion, no bruising, no ecchymosis, no laceration and no rash noted. Psychiatric: She has a normal mood and affect. Her speech is normal and behavior is normal. Thought content normal. Cognition and memory are normal. Musculoskeletal: Straight leg raise and slump-sit are positive on the right. Westley's ma neuver and impingement testing were negative for any groin pain but did cause lateral hip pa in. There was tenderness to palpation over the greater trochanters, especially on the righ t. She was also mildly tender over the sacral sulci. The patient localized the majority of the pain to the L4-L5 region down to the buttocks and into the legs. Lumbar facet loading was positive for pain at L4-L5. Strength testing showed 5/5 strength throughout the lower e xtremities. The patient was able to heel and toe walk without difficulty. There was no red ness, effusion, warmth or joint line tenderness in the knees or ankles. Assessment: 1. Lumbar radiculopathy - right greater than left 2. DDD (degenerative disc disease), lumbar - multilevel 3. Spondylolisthesis of lumbar region 4. Spinal stenosis of lumbar region with [id number] level moderately severe 5. Facet arthritis of lumbar region-Most severe at L4-L5,L5-S1 6. Trochanteric bursitis of right hip 7. Neck pain and DDD cervical spine - She is seeing Dr. Jordan for this issue and therefor e this was not discussed in detail Plan: 1. The patient has tried conservative care including PT, chiropractic and medications but continues to have significant pain. She cannot take NSAIDs because of gastric issues. She perez s had some relief with prior injections and I do feel that the patient would benefit again f rom interventional procedures. I would again offer bilateral L5-S1 TFESI injection. 2. I would also consider a right trochanteric bursa injection in the future as this does ap pear to be an area of significant discomfort as well. 3. The patient is already on multiple medications for pain. I did not make any changes in her medications today. 4. She may be a candidate for surgical management at some point although she does have med ical comorbidities. She has had open heart surgery 3 years ago and would need cardiac clear ance. She would also need a DEXA scan prior. She has had flexion and extension x-rays of t he lumbar spine at [facility]. I will request these be placed on I-site. She h as previously seen Dr. Real and has been in contact with Dr. Becerril's office in the [facility]. I would be happy to provide a formal referral if needed. documented in this encounter Plan of Treatment +--------+---------+ + + + | Date | Type | Specialty | Care Team | Description | +--------+---------+ + + + | 06/04/ | Office | Orthopedic Surgery | Monster White MD | | | 2019 | Visit | | [address] | | | | | | [place], | | | | | | [place] [address] | | | | | | [phone] | | | | | | | | +--------+---------+ + + + | 07/30/ | Office | Cardiology | Agata Tinajero DO | | | 2019 | Visit | | [address] | | | | | | [place] | | | | | | [address] | | | | | | | | +--------+---------+ + + + documented as of this encounter Visit Diagnoses + + | Diagnosis | + + | Lumbar radiculopathy - Primary Thoracic or lumbosacral neuritis or radiculitis, | | unspecified | + + | DDD (degenerative disc disease), lumbar Degeneration of lumbar or lumbosacral | | intervertebral disc | + + | Spondylolisthesis of lumbar region Acquired spondylolisthesis | + + | Spinal stenosis of lumbar region with [id number]-[id number] level moderately severe | | Spinal stenosis, lumbar region, without neurogenic claudication | + + | Facet arthritis of lumbar region-Most severe at L4-L5,L5-S1 Lumbosacral spondylosis | | without myelopathy | + + | [place] (myocardial infarction) (HCC) Acute myocardial infarction, unspecified site, | | episode of care unspecified | + + | Cancer (HCC) Other malignant neoplasm without specification of site | + + | Diabetes mellitus (HCC) Type II or unspecified type diabetes mellitus without mention | | of complication, not stated as uncontrolled | + + | Coronary artery disease Coronary atherosclerosis of unspecified type of vessel, | | [place] or graft | + + | Trochanteric bursitis of right hip Enthesopathy of hip region | + + | Cervical stenosis of spinal canal Spinal stenosis in cervical region | + + | Spondylolisthesis of cervical region Acquired spondylolisthesis | + + documented in this encounter
--- OUTSIDE RECORDS SUMMARY | ~2019-05-12 | XMS | Encounter Summary ---
Demographics + + + | Address | [address] | | | [place] [address] | + + + | Home Phone [...] + | Author | [facility] | | | and [place] | + + + | Organization | [facility] | | | and [place] | + + + | Address | Unknown | + + + | Phone | Unavailable | + + + Support + + + + + | Name | Relationship | Address | Phone | + + + + + | Lucy Winchester | ECON | [place], | | | | | [place] [address] | | + + + + + | Kellen Briones | ECON | [place], [place] | | | | | [address] | | + + + + + Care Team Providers + +------+ + | Care Hide Selector Name | Role | Phone | + +------+ + | Anna De Guzman PA-C | PCP | | + +------+ + Encounter Details +--------+ + + + + | Date | Type | Department | Care Team | Description | +--------+ + + + + | 06/04/ | Hospital | [facility] | RealRamon das | Neck pain | | 2012 - | Encounter | MED CTR XRAY [address] | [address] | | | | | [address] | [address] [place], [place] | | | 06/06/ | | [place] [address] | [address] | | | 2012 | | [phone] | | | | | | [...] +---------+ + | Yes | | | occasionally | + + +---------+ + + + [...] | + + + +---------+--------+ + | baclofen | Take 10 mg by mouth | | 0 | | | | (LIORESAL) 10 mg | 3 times daily. | | | | 3 | | tablet | | | | [...] | + + + +---------+--------+ + | metoprolol | Take 50 mg by mouth | | 0 | | | | succinate | Daily. | | | | 3 | | (TOPROL-XL) 50 mg 24 | | | | | | | hr tablet | | | | | [...] | 2019 | Visit | | [address] | | | | | | [place], | | | | | | [place] [address] | | | | | | [phone] | | | | | | | | +--------+---------+ + + + | 07/30/ | Office | Cardiology | Agata Tinajero DO | | | 2019 | Visit | | [address] | | | | | | [place] | | | | | | [address] | | | | | | | | +--------+---------+ + + + + +---------+--------+ + + | Name | Type | Priori | Associated Diagnoses | Order Schedule | | | | ty | | | + +---------+--------+ + + | XR Cervical Spine 2 | Imaging | Routin | Neck pain | 1 Occurrences | | or 3 Vw | | e | | starting 06/04/2012 | + +---------+--------+ + + documented as of this encounter Procedures + +--------+ + + + | Procedure Name | Priori | Date/Time | Associated Diagnosis | Comments | | | ty | | | | + +--------+ + + + | XR CERVICAL SPINE 2 | Routin | 06/04/2012 | | Results for this | | OR 3 VIEWS | e | 5:01 PM | | procedure are in the | | | | PST | | results section. | + +--------+ + + + documented in this encounter Results XR CERVICAL SPINE 3 VIEWS OR LESS (06/04/2012 5:01 PM PST) + + | Specimen | + + | | + + + + + | Narrative | Performed At | + + + | [facility] | [place] | | Department [address] [place] [address] | [facility] | | [ rep ct street[address]] [ rep ct [facility] | | st zip] Signed | - IMAGING | | | | | Patient Name: CLEMENTINE WINCHESTER Physician: | | | ARRE.01 : 1940 Age: 72 Sex: F Unit #: [id number] | | | Exam Date: 06/04/12 Location: [facility] [place] | | | Report #: [id number] Page: | | | %(RAD)RES..mtdd.print.filter("pg") of %(RAD) | | | RES..mtdd.print.filter("tpg") | | | | | | Accession Number: [id number] | | | CERVICAL SPINE, 06/04/2012 CLINICAL HISTORY: NECK PAIN. | | | FINDINGS: Lateral upright views of the cervical spine | | | in neutral, flexed and extended positions are reviewed. | | | In the neutral position, there is minimal retrolisthesis of C5 on | | | C6, measuring 2-3 mm. There is anterolisthesis of C7 on T1 measuring | | | 5-6 mm. Alignment is maintained at the other levels. Severe disk | | | space narrowing is seen at C5-6 and C6-7 with endplate sclerotic | | | changes and osteophyte formation. Facet joints appear particularly | | | sclerotic at C7-T1. In flexion, there is no change in | | | alignment. In extension, slight(2 mm)of retrolisthesis of C4 on C5 | | | is seen, with stable alignment at the other levels. | | | Adjacent soft tissues are unremarkable. IMPRESSION: | | | 1. 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 NO RADIOGRAPHIC DEMONSTRATION OF INSTABILITY. | | | Dictated Date/Time: 06/04/2012 17:01 Transcribed | | | Date/Time: 06/04/2012 17:12 Wedger Machine: | | | <<Signature on File>> | | | | | | Gordon Burrell MD06/05/12 0852 <Electronically signed by | | | Gordon Burrell MD> Gordon Burrell MD 06/04/12 | | | 1701 Wedger Machine: [employer]Lib[employer] [id number]/02/13 1712 | | | Ramon Real MD | | + + + + + + + + | Performing | Address | City/State/Zipcode | Phone Number | | Organization | | | | + + + + + | [facility] [facility] | [address] | [place] | [phone] | | [facility] | | [address] | | | - IMAGING | | | | + + + + + documented in this encounter Visit Diagnoses + + | Diagnosis | + + | Neck pain Cervicalgia | + + documented in this encounter
--- OUTSIDE RECORDS SUMMARY | ~2019-05-12 | XMS | Encounter Summary ---
Demographics + + + | Address | [address] | | | [place] [address] | + + + | Home Phone | | + + + | Preferred Language | Unknown | + + + | Marital Status | | + + + | Yarsanism Affiliation | 1041 | + + + | Race | Unknown | + + + | Ethnic Group | Unknown | + + + Author + + + | Author | [facility] | | | and [place] | + + + | Organization | [facility] | | | and [place] | + + + | Address | Unknown | + + + | Phone | Unavailable | + + + Support + + + + + | Name | Relationship | Address | Phone | + + + + + | Lucy Winchester | ECON | [place], | | | | | [place] [address] | | + + + + + | Kellen Briones | ECON | [place], [place] | | | | | [address] | | + + + + + Care Team Providers + +------+ + | Care Application Dba Name | Role | Phone | + +------+ + | Anna De Guzman PA-C | PCP | | + +------+ + Reason for Visit +--------+ + | Reason | Comments | +--------+ + | Letter | | +--------+ + Encounter Details +--------+ + + + + | Date | Type | Department | Care Team | Description | +--------+ + + + + | 02/14/ | Telephone | [facility] | Irving Becerril, | Letter | | 2015 | | NEUROSURGERY [address] | DO [address] | | | | | [address] | [address] [place], [place] | | | | | [place], [place] | [address] | | | | | [address] | | | | | | [phone] | | | +--------+ + + + [...] | | | | | [place] [address] | | | | | | [phone] | | | | | | | | +--------+---------+ + + + | 07/30/ | Office | Cardiology | Agata Tinajero DO | | | 2019 | Visit | | [address] | | | | | | [place] | | | | | | [address] | | | | | | | | +--------+---------+ + + + documented as of this encounter Visit Diagnoses Not on filedocumented in this encounter"
--- OUTSIDE RECORDS SUMMARY | ~2019-05-12 | XMS | Encounter Summary ---
Demographics + + + | Address | [address] | | | [place] [address] | + + + | Home Phone | | + + + | Preferred Language | Unknown | + + + | Marital Status | | + + + | Yazidi Affiliation | 1041 | + + + [...] [place], | | | | | [place] [address] | | + + + + + | Kellen Briones | ECON | [place], [place] | | | | | [address] | | + + + + + Care Team Providers + +------+ + | Care Layout Worker Name | Role | Phone | [...] Lumbar | NARESH Villareal-C | [address] | | | | | radiculopath | [address] | [place], | | | | | y | [address] | [place] | | | | | Procedures | [address] | [address] | | | | | MRI Lumbar | [place], | Phone: | | | | | Spine wo | [place] [address] | [phone] | | | | | Contrast | Phone: | Fax: | | | | | | [phone] | [phone] | | | | | | Fax: | | | | | | | [phone] | | +--------+--------+ + + + + [...] Lumbar | AYAAN Villareal | [address] | | | | | radiculopath | [address] | [place], | | | | | y | [address] | [place] | | | | | Procedures | [address] | [address] | | | | | MRI Lumbar | [place], | Phone: | | | | | Spine wo | [place] [address] | [phone] | | | | | Contrast | Phone: | Fax: | | | | | | [phone] | [phone] | | | | | | Fax: | | | | | | | [phone] | | +--------+--------+ + + + + Encounter Details +--------+ + + + + | Date | Type | Department | Care Team | Description | +--------+ + + + + | 01/22/ | Hospital | [facility] | Mono Diaz, | Lumbar radiculopathy | | 2018 | Encounter | MED CTR MRI [address] | PA-C [address] | | | | | [place], | [address] [place] | | | | | [place] [address] | [place] [address] | | | | | [phone] | [phone] | | | | | | | [...] | 2020 | Visit | | [address] | | | | | | [place], | | | | | | [place] [address] | | | | | | [phone] | | | | | | | | +--------+---------+ + + + | 07/30/ | Office | Cardiology | Agata Tinajero DO | | | 2020 | Visit | | [address] | | | | | | [place] | | | | | | [address] | | | | | | | [...] L4 nerve root along with the descending [id number] | | roots within the subarticular recesses.L5-S1: Moderate to severe disc space narrowing | | and generalized disc osteophytecomplex combine with dorsal ligamentous and facet | | hypertrophy to moderatelynarrow the foramina to a similar degree, with encroachment on | | the exiting Q4isgrz roots along with the descending S1 nerve [...] DISEASE AND | | MILD ANTEROLISTHESIS AT [id number] MILD STENOSIS.7. LEVOSCOLIOSIS AND MULTILEVEL FACET | [...]
--- OUTSIDE RECORDS SUMMARY | ~2019-05-12 | XMS | Encounter Summary ---
Demographics + + + | Address | [address] | | | [place] [address] | + + + | Home Phone | | + + + | Preferred Language | Unknown | + + + | Marital Status | | + + + | Latter Day Affiliation | 1041 | + + + | Race | Unknown | + + + | Ethnic Group | Unknown | + + + Author + + + | Author | [facility] | | | and [place] | + + + | Organization | [facility] | | | and [place] | + + + | Address | Unknown | + + + | Phone | Unavailable | + + + Support + + + + + | Name | Relationship | Address | Phone | + + + + + | Lucy Winchester | ECON | [place], | | | | | [place] [address] | | + + + + + | Kellen Briones | ECON | [place], [place] | | | | | [address] | | + + + + + Care Team Providers + +------+ + | Care Foster Care Worker Name | Role | Phone | [...] | arthritis of | [address] | [place], [place] | | | | | cervical | [place], [place] | [address] Phone: | | | | | region [place] | [address] | [phone] | | | | | (degenerativ | Phone: | Fax: | | | | | e disc | [phone] | [phone] | | | | | disease), | Fax: | | | | | | cervical | [phone] | | | | | | Cervical | | | | | | | stenosis of | | | | | | | spinal canal | | | +--------+ + + + + + Encounter Details +--------+---------+ + + + | Date | Type | Department | Care Team | Description | +--------+---------+ + + + | 02/01/ | Office | [facility] | Irving Becerril, | Spondylolisthesis, | | 2016 | Visit | NEUROSURGERY [address] | DO [address] | cervical region | | | | [address] | [address] [place], [place] | (Primary Dx); 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[place], [place] | [address] | secondary kyphosis, | | | | [address] | | cervical region; | | | | [phone] | | Cervical myelopathy | | | | | | ([facility]); Cervical | | | | [...] - 02/02/2016 1:30 PM PDTPlease follow-up with you r primary care physician for preoperative clearance. Please [...] 1:30 PM PDT Irving Becerril DO [address] [facility] [address] [place] [address] FAX: NEUROSURGERY HISTORY AND PHYSICAL EXAMINATION CHIEF [...] Diagnosis Date Coronary artery disease Diabetes mellitus ([facility]) Hypertension Stroke ([facility]) Syncope and collapse Cancer ([facility]) Breast Hyperlipidemia DC (myocardial infarction) ([facility]) GERD (gastroesophageal reflux disease) Asthma Arthritis Lumbar radiculopathy 07/23/2012 DDD (degenerative disc disease), lumbar 07/23/2012 Spinal stenosis of lumbar region with clqypqpwphpwg-N2-L9 level moderately severe 2012 Facet arthritis of [...] 1989' Mastectomy, radical 1987 Right Breast reconstruction [id number] ABout 10 surgeries Bone spur left foot [...] has no apparent deficits with short or penitentiary memory. CRANIAL NERVES: Fundoscopic Exam: The optic [...] Intrinsics 5 4+ Ulnar Intrinsics 5 4+ Customer Operations Specialist Strength 4+ 4+ Hip Flexion 5 [...] Syncope and collapse Cancer (HCC) Breast Hyperlipidemia DC (myocardial infarction) (HCC) GERD (gastroesophageal reflux disease) Asthma Arthritis Lumbar radiculopathy 07/23/2012 DDD (degenerative disc disease), lumbar 07/23/2012 Spinal stenosis of lumbar region with uwcorsfdkxqyq-X8-N4 level moderately severe 2012 Facet arthritis of [...] in this en counter Plan of Treatment +--------+---------+ + + + | Date | Type | Specialty | Care Team | Description | +--------+---------+ + + + | 05/14/ | Office | Orthopedic Surgery | Monster White MD | | | 2019 | Visit | | [address] [facility] | | | | | | [place], | | | | | | [place] [address] | | | | | | [phone] | | | | | | | | +--------+---------+ + + + | 07/30/ | Office | Cardiology | Agata Tinajero DO | | | 2019 | Visit | | [address] | | | | | | [place] | | | | | | [address] | | | | | | | [...]
--- OUTSIDE RECORDS SUMMARY | ~2019-05-12 | XMS | Encounter Summary ---
Demographics + + + | Address | [address] | | | [place] [address] | + + + | Home Phone | | + + + | Preferred Language | Unknown | + + + | Marital Status | | + + + | Alevism Affiliation | 1041 | + + + | Race | Unknown | + + + | Ethnic Group | Unknown | + + + Author + + + | Author | [facility] | | | and [place] | + + + | Organization | [facility] | | | and [place] | + + + | Address | Unknown | + + + | Phone | Unavailable | + + + Support + + + + + | Name | Relationship | Address | Phone | + + + + + | Lucy Winchester | ECON | [place], | | | | | [place] [address] | | + + + + + | Kellen Briones | ECON | [place], [place] | | | | | [address] | | + + + + + Care Team Providers + +------+ + | Care Home Furnishings Sales Representative Name | Role | Phone | + +------+ + | Anna De Guzman PA-C | PCP | | + +------+ + Encounter Details +--------+ + + + + | Date | Type | Department | Care Team | Description | +--------+ + + + + | 02/12/ | Orders Only | [facility] | Irving Becerril, | Stroke of unknown | | 2016 | | NEUROSURGERY [address] | DO [address] | etiology (HCC) | | | | [address] | [address] [place], [place] | (Primary Dx); | | | | [place], [place] | [address] | Cerebrovascular | | | | [address] | | accident (CVA), | | | | [phone] | | unspecified | | | | | | mechanism (HCC); | | | | | | Lumbar | | | | | | radiculopathy; | | | | | | Cervical stenosis of | | | | | | spinal canal; | | | | | | Spondylolisthesis of | | | | | | cervical region; | | | | | | Arthritis; Leg pain, | | | | | | bilateral; Chronic | | | | | | low back pain, | | | | | | unspecified back | | | | | | pain laterality, | | | | | | with sciatica | | | | | | presence | | | | | | unspecified; | | | | | | Trochanteric | | | | | | bursitis of right | | | | | | hip; Right hip pain; | | | | | | Coronary artery | | | | | | disease involving | | | | | | upper skagit coronary | | | | | | artery of upper skagit | | | | | | heart without angina | | | | | | pectoris; 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 | | | | | | without complication | | | | | | ([facility]); Essential | | | | | | hypertension, | | | | | | hypertension with | | | | | | unspecified goal; | | | | | | Syncope and | | | | | | collapse; Cancer | | | | | | ([facility]); 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| | hyperlipidemia; ST | | | | | | elevation myocardial | | | | | | infarction (STEMI), | | | | | | unspecified artery | | | | | | ([facility]); | | | | | | Gastroesophageal | | | | | | reflux disease, | | | | | | esophagitis presence | | | | | | not specified; | | | | | | Uncomplicated | | | | | | asthma, unspecified | | | | | | asthma severity; | | | | | | 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; DDD | | | | | | (degenerative disc | | | | | | disease), lumbar; | | | | | | Spinal stenosis of | | | | | | lumbar region with | | | | | | [id number] | | | | | | level moderately | | | | | | severe; Facet | | | | | | arthritis of lumbar | | | | | | region-Most severe | | | | | | at L4-L5,L5-S1; | | | | | | Snoring; Chronic | | | | | | narcotic use; Neck | | | | | | pain on right side; | | | | | | Facet arthritis of | | | | | | cervical region | | | | | | ([facility]); DDD | | | | | | (degenerative disc | | | | | | disease), cervical | +--------+ + + + + Social [...] | 2019 | Visit | | [address] | | | | | | [place] | | | | | | [place] [address] | | | | | | [phone] | | | | | | | | +--------+---------+ + + + | 07/30/ | Office | Cardiology | Agata Tinajero DO | | | 2019 | Visit | | [address] | | | | | | [place] | | | | | | [address] | | | | | | | | +--------+---------+ + + + documented as of this encounter Results XR Chest PA and Lateral (03/07/2016 3:49 PM PDT) + + | Specimen | + + | | + + + + + | Narrative | Performed At | + + + | EXAM: XR CHEST PA AND LATERAL HISTORY: PRE OPERATIVE EXAM | [facility] | | TECHNIQUE: Upright PA and Lateral Chest COMPARISON: None. | [facility] | | FINDINGS: Sternal wires and mediastinal vascular clips are | MEDICAL CENTER | | suggestive of CABG. Right breast prosthesis with capsular | - IMAGING | | calcification. Heart is normal size. Mediastinal and hilar contours | | | are within normal limits. The lungs are clear. No pleural effusion. | | | No pneumothorax. No acute osseous abnormality. IMPRESSION - | | | No acute cardiopulmonary abnormality. CRITICAL VALUE: No. | | | Dictated and Signed by: Simone Vera MD Electronically signed: | | | 03/07/2016 4:08 PM | | + + + + + | Procedure Note | + + | Howard, Rad Results In - 03/07/2016 4:11 PM PDT EXAM: XR CHEST PA AND LATERAL | | | | HISTORY: PRE OPERATIVE EXAM | | | | TECHNIQUE: Upright PA and Lateral Chest | | | | COMPARISON: None. | | | | FINDINGS: | | Sternal wires and mediastinal vascular clips are suggestive of CABG. | | Right breast prosthesis with capsular calcification. | | Heart is normal size. | | Mediastinal and hilar contours are within normal limits. | | The lungs are clear. No pleural effusion. No pneumothorax. | | No acute osseous abnormality. | | | | IMPRESSION - | | No acute cardiopulmonary abnormality. | | | | CRITICAL VALUE: No. | | | | Dictated and Signed by: Simone Vera MD | | Electronically signed: 03/07/2016 4:08 PM | + + + + + + + | Performing | Address | City/State/Zipcode | Phone Number | | Organization | | | | + + + + + | [facility] | [address] | [place] | [phone] | | [facility] | | [address] | | | - IMAGING | | | | + + + + + Basic Metabolic Panel (03/07/2016 3:20 PM PDT) + + + + + + | Component | Value | Ref Range | Performed | Pathologist | | | | | At | Signature | + + + + + + | Na | 138 | 136 - 149 | [facility] | | | | | mmol/L | [facility] | | | | | | MEDICAL | | | | | | CENTER - | | | | | | LABORATORY | | + + + + + + | K | 3.2 (L) | 3.5 - 5.1 | [facility] | | | | | mmol/L | [facility] | | | | | | MEDICAL | | | | | | CENTER - | | | | | | LABORATORY | | + + + + + + | Cl | 98 | 98 - 109 mmol/L | [facility] | | | | | | [facility] | | | | | | MEDICAL | | | | | | CENTER - | | | | | | LABORATORY | | + + + + + + | CO2 | 31 | 24 - 31 mmol/L | [facility] | | | | | | [facility] | | | | | | MEDICAL | | | | | | CENTER - | | | | | | LABORATORY | | + + + + + + | Anion Gap | 9 | 3 - 16 mmol/L | [facility] | | | | | | [facility] | | | | | | MEDICAL | | | | | | CENTER - | | | | | | LABORATORY | | + + + + + + | Glucose | 109 | 70 - 109 mg/dL | [facility] | | | | | | [facility] | | | | | | MEDICAL | | | | | | CENTER - | | | | | | LABORATORY | | + + + + + + | BUN | 13 | 7 - 18 mg/dL | [facility] | | | | | | [facility] | | | | | | MEDICAL | | | | | | CENTER - | | | | | | LABORATORY | | + + + + + + | Creatinine | 0.96 | 0.60 - 1.30 | [facility] | | | | | mg/dL | [facility] | | | | | | MEDICAL | | | | | | CENTER - | | | | | | LABORATORY | | + + + + + + | eGFR if not | 57 (L)Comment: | >=60 | [facility] | | | | GLOMERULAR FILTRATION | mL/min/1.73m2 | [facility] | | | NIGERIAN | RATE,ESTIMATED | | MEDICAL | | | | mL/min/1.87d6Udnj than | | CENTER - | | | | 60 Chronic kidney | | LABORATORY | | | | disease,if found over a | | | | | | 3-month period.Less than | | | | | | 15 Kidney failureFor | | | | | | | | | | | | Americans,multiply the | | | | | | calculated GFR by 1.21. | | | | | | | | | | + + + + + + | Calcium | 8.4 | 8.3 - 10.5 | [facility] | | | | | mg/dL | [facility] | | | | | | MEDICAL | | | | | | CENTER - | | | | | | LABORATORY | | + + + + + + | BUN/Creatin | 13.5 | | [facility] | | | ine Ratio | | | [facility] | | [...] + + | [facility] | [address] | [place] | [phone] | | [facility] | | [address] | | | - LABORATORY | | | | + + + + + PTT (03/07/2016 3:20 PM PDT) + +-------+ + + + | Component | Value | Ref Range | Performed | Pathologist | | | | | At | Signature | + +-------+ + + + | aPTT | 33 | 22 - 36 seconds | [facility] | | | | | | [facility] [...] | [facility] | [address] | [place] | [phone] | | [facility] | | [address] | | | - LABORATORY | | | | + + + + + Protime INR (03/07/2016 3:20 PM PDT) + + + + + + | Component | Value | Ref Range | Performed | Pathologist | | | | | At | Signature | + + + + + + | Prothrombin | 12.8 | 11.3 - 13.9 | [facility] | | | Time | | seconds | [facility] | | | | | | MEDICAL | | | | | | CENTER - | | | | | | LABORATORY | | + + + + + + | INR | 1.00Comment: Usual Oral | 0.90 - 1.10 | [facility] | | | | Anticoagulation Range: | | [facility] | | | | 2.0 - 3.0High | | MEDICAL | | | | Level Oral | | CENTER - | | | | Anticoagulation Range: | | LABORATORY | | | | 2.5 - 3.5 | | | | + + + + + + + + | Specimen | + + | Blood | + + + + + + + | Performing | Address | City/State/Zipcode | Phone Number | | Organization | | | | + + + + + | [facility] | [address] | [place], [place] | [phone] | | [facility] | | [address] | | | - LABORATORY | | | | + + + + + CBC with Differential (03/07/2016 3:20 PM PDT) + +-------+ + + + | Component | Value | Ref Range | Performed | Pathologist | | | | | At | Signature | + +-------+ + + + | WBC | 8.6 | 4.0 - 11.0 K/uL | [facility] | | | | | | [facility] | | | | | | MEDICAL | | | | | | CENTER - | | | | | | LABORATORY | | + +-------+ + + + | RBC | 3.88 | 3.70 - 5.20 | [facility] | | | | | M/uL | [facility] | | | | | | MEDICAL | | | | | | CENTER - | | | | | | LABORATORY | | + +-------+ + + + | Hemoglobin | 12.1 | 11.5 - 16.0 | [facility] | | | | | g/dL | [facility] | | | | | | MEDICAL | | | | | | CENTER - | | | | | | LABORATORY | | + +-------+ + + + | Hematocrit | 36.5 | 34.0 - 47.0 % | [facility] | | | | | | [facility] | | | | | | MEDICAL | | | | | | CENTER - | | | | | | LABORATORY | | + +-------+ + + + | MCV | 94.0 | 83.0 - 101.0 fL | [facility] | | | | | | [facility] | | | | | | MEDICAL | | | | | | CENTER - | | | | | | LABORATORY | | + +-------+ + + + | MCH | 31.2 | 28.0 - 35.0 pg | [facility] | | | | | | [facility] | | | | | | MEDICAL | | | | | | CENTER - | | | | | | LABORATORY | | + +-------+ + + + | MCHC | 33.2 | 32.0 - 36.0 | [facility] | | | | | g/dL | [facility] | | | | | | MEDICAL | | | | | | CENTER - | | | | | | LABORATORY | | + +-------+ + + + | RDW-CV | 14.6 | <15.0 % | [facility] | | | | | | [facility] | | | | | | MEDICAL | | | | | | CENTER - | | | | | | LABORATORY | | + +-------+ + + + | Platelet | 257 | 140 - 440 K/uL | [facility] | | | Count | | | [facility] | | | | | | MEDICAL | | | | | | CENTER - | | | | | | LABORATORY | | + +-------+ + + + | MPV | 8.8 | fL | [facility] | | | | | | [facility] | | | | | | MEDICAL | | | | | | CENTER - | | | | | | LABORATORY | | + +-------+ + + + | % | 60.4 | 45.0 - 82.0 % | [facility] | | | Neutrophils | | | [facility] | | | | | | MEDICAL | | | | | | CENTER - | | | | | | LABORATORY | | + +-------+ + + + | % | 28.1 | 20.0 - 45.0 % | [facility] | | | Lymphocytes | | | [facility] | | | | | | MEDICAL | | | | | | CENTER - | | | | | | LABORATORY | | + +-------+ + + + | % Monocytes | 8.6 | 4.0 - 12.0 % | [facility] | | | | | | [facility] | | | | | | MEDICAL | | | | | | CENTER - | | | | | | LABORATORY | | + +-------+ + + + | % | 2.3 | 0.0 - 5.0 % | [facility] | | | Eosinophils | | | [facility] | | | | | | MEDICAL | | | | | | CENTER - | | | | | | LABORATORY | | + +-------+ + + + | % Basophils | 0.6 | 0.0 - 1.0 % | [facility] | | | | | | [facility] | | | | | | MEDICAL | | | | | | CENTER - | | | | | | LABORATORY | | + +-------+ + + + | Absolute | 5.20 | 1.80 - 8.50 | [facility] | | | Neutrophils | | K/uL | [facility] | | | | | | MEDICAL | | | | | | CENTER - | | | | | | LABORATORY | | + +-------+ + + + | Absolute | 2.40 | 0.60 - 3.20 | [facility] | | | Lymphocytes | | K/uL | [facility] | | | | | | MEDICAL | | | | | | CENTER - | | | | | | LABORATORY | | + +-------+ + + + | Absolute | 0.70 | 0.00 - 1.00 | [facility] | | | Monocytes | | K/uL | [facility] | | | | | | MEDICAL | | | | | | CENTER - | | | | | | LABORATORY | | + +-------+ + + + | Absolute | 0.20 | 0.00 - 0.40 | [facility] | | | Eosinophils | | K/uL | [facility] | | | | | | MEDICAL | | | | | | CENTER - | | | | | | LABORATORY | | + +-------+ + + + | Absolute | 0.10 | 0.00 - 0.10 | [facility] | | | Basophils | | K/uL | [facility] | | | | [...] | [facility] | [address] | [place], [place] | [phone] | | [facility] | | [address] | | | - LABORATORY | | | | + + + + + ECG 12 lead (03/07/2016 3:14 PM PDT) + + + + + + | Component | Value | Ref Range | Performed | Pathologist | | | | | At | Signature | + + + + + + | VENTRICULAR | 76 | BPM | [facility] | | | RATE EKG | | | | | + + + + + + | ATRIAL RATE | 76 | BPM | [facility] | | + + + + + + | P-R | 158 | ms | [facility] | | | INTERVAL | | | | | + + + + + + | QRS | 100 | ms | [facility] | | | DURATION | | | | | + + + + + + | Q-T | 400 | ms | [facility] | | | INTERVAL | | | | | + + + + + + | Q-T | 450 | ms | [facility] | | | INTERVAL | | | | | | (CORRECTED) | | | | | + + + + + + | P WAVE AXIS | 48 | degrees | [facility] | | + + + + + + | QRS AXIS | -34 | degrees | [facility] | | + + + + + + | T AXIS | 7 | degrees | [facility] | | + + + + + + | INTERPRETAT | Normal sinus | | [facility] | | | ION TEXT | rhythmPossible Left | | | | | | atrial enlargementLeft | | | | | | axis deviationIncomplete | | | | | | right bundle branch | | | | | | blockpoor R-wave | | | | | | progressionAbnormal | | | | | | ECGNo previous ECGs | | | | | | availableConfirmed by | | | | | | CYNTHIA KIRBY MD ([id number]) | | | | | | on 03/08/2016 7:19:50 AM | | | | + + [...] accident (CVA), unspecified mechanism (HCC) | + + | Lumbar radiculopathy Thoracic or lumbosacral neuritis or radiculitis, unspecified | + + | Cervical stenosis of spinal canal Spinal stenosis in cervical region | + + | Spondylolisthesis of cervical region Acquired spondylolisthesis | + + | Arthritis Arthropathy, unspecified, site unspecified | + + | Leg pain, bilateral Pain in limb | + + | Chronic low back pain, unspecified back pain laterality, with sciatica presence | | unspecified | + + | Trochanteric bursitis of right hip Enthesopathy of hip region | + + | Right hip pain Pain in joint, pelvic region and thigh | + + | Coronary artery disease involving upper [place] coronary artery of upper [place] heart without | | angina pectoris | + + | Type 1 diabetes mellitus without complication (HCC) Type I (juvenile type) diabetes | | mellitus without mention of complication, not stated as uncontrolled | + + | Essential hypertension, hypertension with unspecified goal | + + | Syncope and collapse | + + | Cancer (HCC) Other malignant neoplasm without specification of site | + + | Other hyperlipidemia | + + | ST elevation myocardial infarction (STEMI), unspecified artery (HCC) | + + | Gastroesophageal reflux disease, esophagitis presence not specified | + + | Uncomplicated asthma, unspecified asthma severity | + + | Spondylolisthesis of lumbar region Acquired spondylolisthesis | + + | DDD (degenerative disc disease), lumbar Degeneration of lumbar or lumbosacral | | intervertebral disc | + + | Spinal stenosis of lumbar region with [id number] level moderately severe | | Spinal stenosis, lumbar region, without neurogenic claudication | + + | 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
--- OUTSIDE RECORDS SUMMARY | ~2019-05-12 | XMS | Encounter Summary ---
Demographics + + + | Address | [address] | | | [place] [address] | + + + | Home Phone | | + + + | Preferred Language | Unknown | + + + | Marital Status | | + + + | Anabaptist Affiliation | 1041 | + + + | Race | Unknown | + + + | Ethnic Group | Unknown | + + + Author + + + | Author | [facility] | | | and [place] | + + + | Organization | [facility] | | | and [place] | + + + | Address | Unknown | + + + | Phone | Unavailable | + + + Support + + + + + | Name | Relationship | Address | Phone | + + + + + | Lucy Winchester | ECON | [place], | | | | | [place] [address] | | + + + + + | Kellen Briones | ECON | [place], [place] | | | | | [address] | | + + + + + Care Team Providers + +------+ + | Care Supervisor Customer Records Division Name | Role | Phone | + [...] | | | | | Lumbar | [place], | [address] | | | | | radiculopath | Tk Monreal MD | [place], | | | | | y | [address] | [place] | | | | | Procedures | [place] | [address] | | | | | [place] INJECT | [place] | Phone: | | | | | ANES/STEROID | [address] | [phone] | | | | | FORAMEN | Phone: | Fax: | | | | | LUMBAR/SACRA | [phone] | [phone] | | | | | L W IMG | Fax: | | | | | | GUIDE ,1 | [phone] | | | | | | LEVEL [place] | | | | | | | TRIAMCINOLON | | | | | | | E ACET INJ | | | | | | | NOS, 10 MG | | | | | | | Bilat. L4-L5 | | | | | | | TFESI To | | | | | | | be done | | | | | | | 2nd | | | +--------+--------+ + + + + Encounter Details +--------+ + + + + | Date | Type | Department | Care Team | Description | +--------+ + + + + | 09/29/ | Hospital | [facility] | Mono Diaz, | Lumbar radiculopathy | | 2019 | Encounter | MED CTR XRAY [address] | PA-C [address] | | | | | [place] | [address] [place] | | | | | [place] [address] | [place] [address] | | | | | [phone] | [phone] | | | | | | | | | | | | Inventory Transcriber, [facility] | | +--------+ + + + + [...] +---------+ + + | Blood Pressure | 117/56 | 09/29/2018 4:02 PM | | | | | PDT | | + +---------+ + + | Pulse | 96 | 09/29/2018 4:02 PM | | | | | PDT [...] +---------+ + + | amLODIPine | Take 10 mg by mouth | | 0 | 02/06/20 | | | (NORVASC) 10 MG | Daily. | | | 18 | 9 | | tablet | | | | | | + + + +---------+ + + | aspirin 81 mg | Take 81 mg by mouth | | 0 | 02/07/20 | | | chewable tablet | Daily. | | | 18 | 9 | + + + +---------+ + + | baclofen | TK 1 T PO TID PRN P | | 0 | 07/23/19 | | | (LIORESAL) 10 mg | | | | 19 | 9 | | tablet | | | | | | + + + +---------+ + + | lisinopril | Take 20 mg by mouth | | 1 | 02/07/20 | | | (PRINIVIL, ZESTRIL) | Daily. | | | 18 | 9 | | 20 mg tablet | | | | | [...] | 2019 | Visit | | [address] | | | | | | [place] | | | | | | [place] [address] | | | | | | [phone] | | | | | | | | +--------+---------+ + + + | 07/30/ | Office | Cardiology | Agata TinajeroDO | | | 2019 | Visit | | [address] | | | | | | [place] | | | | | | [address] | | | | | | | | +--------+---------+ + + + documented as of this encounter Procedures + +--------+ + + + | Procedure Name | Priori | Date/Time | Associated Diagnosis | Comments | | | ty | | | | + +--------+ + + + | FL EPIDURAL STEROID | Routin | 09/29/2018 | Lumbar | Results for this | | INJECTION LUMBAR | e | 4:06 PM | radiculopathy | procedure are in the | | TRANSFORAMINAL | | PDT | | results section. | + +--------+ + + + documented in this encounter Results FL BAUTISTA Lumbar Transforaminal (09/29/2018 4:06 PM PDT) + + | Specimen | + + | | + + + + -+ | Narrative | Performed At | + + -+ | 09/29/2018 | [facility] | | Bilateral Transforaminal Epidural Steroid Injections Diagnosis: Lumbar | | | radiculopathy ICD-10 Code M54.16 Clementine Winchester presents to the | | | fluoroscopy suite for fluoroscopically-guided bilateral L4-L5 | | | transforaminal epidural steroid injections [...] + + | Performing | Address | [facility] | Phone Number | | Organization | [...] | | | + +--------+ +-------+------+------+ | dexamethasone (PF) 10 mg/mL | Given | 09/30/19 | 15 mg | | | | injection 15 mg 15 mg, Other, | | 19 3:55 | | | | | ONCE, Sat09/29/18 at 1600, For 1 | | PM PDT | | | | | dose, When ordered IV push: | | | | | | | Dilute to 10-20 mL with NS and | | | | | | | give slowly over 1-2 minutes., | | | | | | + +--------+ +-------+------+------+ +---+---+ | | | +---+---+ + +-------+ +-------+---+---+ | iohexol (OMNIPAQUE 300) 300 | Given | 09/30/19 | 4 mLs | | | | mg/mL injection 4 mL 4 mL, | | 19 3:50 | | | | | Other, ONCE, Sat09/29/18 at 1600, | | PM PDT | | | | | For 1 dose | | | | | | + +-------+ +-------+---+---+ +---+---+ | | | +---+---+ + +-------+ +-------+---+---+ | lidocaine (PF) 1% injection 2 | Given | 09/30/19 | 2 mLs | | | | mL 2 mL, Other, ONCE, Mon | | 19 3:55 | | | | | 09/29/18 at 1600, For 1 dose, | | PM PDT | | | | | EPIDURAL, | | | | | | + +-------+ +-------+---+---+ +---+---+ | | | +---+---+ + +-------+ +-------+---+ + | lidocaine buffered 0.9% | Given | 09/30/19 | 6 mLs | | Other | | injection 6 mL 6 mL, | | 19 3:45 | | | (Comment | | Intradermal, ONCE, 09/29/18 at | | PM PDT | | | ) | | 1600, For 1 dose | | | | | | + +-------+ +-------+---+ + +---+---+ | | | +---+---+ documented in this encounter"
--- OUTSIDE RECORDS SUMMARY | ~2019-05-12 | XMS | Encounter Summary ---
Demographics + + + | Address | [address] | | | [place] [address] | + + + | Home Phone | | + + + | Preferred Language | Unknown | + + + | Marital Status | | + + + | Yarsanism Affiliation | 1041 | + + + | Race | Unknown | + + + | Ethnic Group | Unknown | + + + Author + + + | Author | [facility] | | | and [place] | + + + | Organization | [facility] | | | and [place] | + + + | Address | Unknown | + + + | Phone | Unavailable | + + + Support + + + + + | Name | Relationship | Address | Phone | + + + + + | Lucy Winchester | ECON | [place], | | | | | [place] [address] | | + + + + + | Kellen Briones | ECON | [place] | | | | | [address] | | + + + + + Care Team Providers + +------+ + | Care Cow Tender Name | Role | Phone | + +------+ + | Barb Marte | THANG | | + +------+ + Encounter Details +--------+ + + + + | Date | Type | Department | Care Team | Description | +--------+ + + + + | 11/05/ | Hospital | [facility] | Irving Becerril, | Status post cervical | | 2018 | Encounter | MED CTR XRAY [address] | DO [address] | spinal fusion | | | | [place] | [address] | | | | | [place] [address] | [address] | | | | | [phone] | | | +--------+ + + + [...] tablets by | 120 | 0 | 08/12/19 | | | HYDROcodone-acetamin | mouth every 4 hours | tablet | | 17 | 8 | | ophen (NORCO) 10-325 | as needed for Pain. | | | | | | mg per | | | | | | | tabletIndications: | | | | | | | S/P cervical spinal | | | | | | | fusion | | | | | | + + + +---------+ + + | methocarbamol | Take 1-2 tablets by | 90 | 3 | 07/04/19 | | | (METHOCARBAMOL) 750 | mouth every 6 hours | tablet | | 17 | 8 | | mg tablet | as needed [...] | | | | | | [place] [address] | | | | | | [phone] | | | | | | | | +--------+---------+ + + + | 07/30/ | Office | Cardiology | Agata Tinajero DO | | | 2019 | Visit | | [address] | | | | | | [place] | | | | | | [address] | | | | | | | | +--------+---------+ + + + documented as of this encounter Procedures + +--------+ + + + | Procedure Name | Priori | Date/Time | Associated Diagnosis | Comments | | | ty | | | | + +--------+ + + + | XR CERVICAL SPINE 2 | Routin | 11/05/2017 | Status post | Results for this | | OR 3 VIEWS | e | 11:31 AM | cervical spinal | procedure are in the | | | | PDT | fusion | results section. | + +--------+ + + + documented in this encounter Results XR Cervical Spine 2 or 3 Views (11/05/2017 11:31 AM PDT) + + | Specimen | + + | | + + + + + | Narrative | Performed At | + + + | EXAM:XR CERVICAL SPINE 2 OR 3 VIEWS CLINICAL HISTORY: post op | [facility] | | COMPARISON: Cervical spine radiographs dated May 17, 2016 and | | | March 30, 2016. FINDINGS: Frontal and lateral views. Anterior | | | cervical discectomy and fusion changes from C3 through C7. Intact | | | hardware. No change in position of the interbody graft markers. | | | Ongoing bone development across the disc spaces. No change in | | | spinal alignment. Progressive osteophyte buttressing along the | | | inferior aspect of the anterior fusion plate extending from the | | | superior endplate of T1. IMPRESSION - No radiographic | | | evidence for an interval complication. Progressive osteophyte | | | buttressing along the inferior aspect of the anterior fusion plate | | | extending from the superior endplate of T1. Dictated and Signed | | | by: Santino Jewell MD Electronically signed: 11/05/2017 1:00 PM | | + + + + + | Procedure Note | + + | Howard, Rad Results In - 11/05/2017 1:03 PM PDT EXAM:XR CERVICAL SPINE 2 OR 3 VIEWS | | | | CLINICAL HISTORY: post op | | | | COMPARISON: Cervical spine radiographs dated May 17, 2016 and March 30 | | 2015. | | | | FINDINGS: Frontal and lateral views. Anterior cervical discectomy and fusion | | changes from C3 through C7. Intact hardware. No change in position of the | | interbody graft markers. Ongoing bone development across the disc spaces. No | | change in spinal alignment. Progressive osteophyte buttressing along the | | inferior aspect of the anterior fusion plate extending from the superior | | endplate of T1. | | | | IMPRESSION - | | | | No radiographic evidence for an interval complication. | | | | Progressive osteophyte buttressing along the inferior aspect of the anterior | | fusion plate extending from the superior endplate of T1. | | | | Dictated and Signed by: Santino Jewell MD | | Electronically signed: 11/05/2017 1:00 PM | + + + +---------+ + + | Performing | Address | City/State/Zipcode | Phone Number | | Organization | | | | + +---------+ + + | [facility] | | | | + +---------+ + + documented in this encounter Visit Diagnoses + + | Diagnosis | + + | Status post cervical spinal fusion Arthrodesis status | + + documented in this encounter"
--- OUTSIDE RECORDS SUMMARY | ~2019-05-12 | XMS | Encounter Summary ---
Demographics + + + | Address | [address] | | | [place] [address] | + + + | Home Phone | | + + + | Preferred Language | Unknown | + + + | Marital Status | | + + + | Yarsani Affiliation | 1041 | + + + | Race | Unknown | + + + | Ethnic Group | Unknown | + + + Author + + + | Author | [facility] | | | and [place] | + + + | Organization | [facility] | | | and [place] | + + + | Address | Unknown | + + + | Phone | Unavailable | + + + Support + + + + + | Name | Relationship | Address | Phone | + + + + + | Lucy Winchester | ECON | [place], | | | | | [place] [address] | | + + + + + | Kellen Briones | ECON | [place], [place] | | | | | [address] | | + + + + + Care Team Providers + +------+ + | Care Column Precaster Name | Role | Phone | + [...] + + | 08/27/ | Telephone | [facility] | Tk Ann | Other | | 2012 | | PHYSIATRY [address] | | | | | [place], | [place], [place] | | | | | [place] [address] | [address] | | | | | [phone] | | | +--------+ + + + [...] | | | | | | [place] [address] | | | | | | [phone] | | | | | | | | +--------+---------+ + + + | 07/30/ | Office | Cardiology | Agata Tinajero DO | | | 2019 | Visit | | [address] | | | | | | [place] | | | | | | [address] | | | | | | | | +--------+---------+ + + + documented as of this encounter Visit Diagnoses Not on filedocumented in this encounter"
--- OUTSIDE RECORDS SUMMARY | ~2019-05-12 | XMS | Encounter Summary ---
Demographics + + + | Address | [address] | | | [place] [address] | + + + | Home Phone | | + + + | Preferred Language | Unknown | + + + | Marital Status | | + + + | Baptist Affiliation | 1041 | + + + | Race | Unknown | + + + | Ethnic Group | Unknown | + + + Author + + + | Author | [facility] | | | and [place] | + + + | Organization | [facility] | | [...] [place], | | | | | [place] [address] | | + + + + + | Kellen Briones | ECON | [place], [place] | | | | | [address] | | + + + + + Care Team Providers + +------+ + | Care Director Of Enterprise Architecture Name | Role | Phone | + +------+ + | Barb Marte | PCP | | + +------+ + Reason for Visit + + + | Reason | Comments | + + + | Follow-up | LR for back pain | + + + Evaluate & Treat (Routine) + +--------+ + + + + | Status | Reason | Specialty | Diagnoses / | Referred By | Referred To | | | | | Procedures | Contact | Contact | + +--------+ + + + + | Authorized | | Neurosurgery | Diagnoses | Joe, | Nini, | | | | | Lumbar | [facility] | Leonard Sevilla MD | | | | | radiculopath | [address] | | | | | y | [address] | [address] [facility] | | | | | Spondylolist | [facility] [address] | [address] [place] | | | | | hesis of | [place], | [place], [place] | | | | | lumbar | [place] [address] | [address] Phone: | | | | | region DDD | Phone: | [phone] | | | | | (degenerativ | [phone] | Fax: | | | | | e disc | Fax: | [phone] | | | | | disease), | [phone] | | | | | | lumbar | | | | | | | Spinal | | | | | | | stenosis of | | | | | | | lumbar | | | | | | | region with | | | | | | | radiculopath | | | | | | | y | | | + +--------+ + + + + Encounter Details +--------+---------+ + + + | Date | Type | Department | Care Team | Description | +--------+---------+ + + + | 12/29/ | Office | [facility] | Leonard Terrazas | Back pain, | | 2019 | Visit | NEUROSURGERY [address] | MD Di [address] | unspecified back | | | | [address] [facility] [address] | [facility] [address] [facility] | location, | | | | [place] | [facility] [place] [address] | unspecified back | | | | [address] | [phone] | pain laterality, | | | | [phone] | | unspecified | | | | | | chronicity (Primary | | | | | | Dx); Spinal stenosis | | | | | | of lumbar region, | | | | | | unspecified whether | | | | |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 | | | | | | claudication | | | | | | present; DDD | | | | | | (degenerative disc | | | | | | disease), lumbar; | | | | | | Lumbar [...] + + + | Blood Pressure | 108/62 | 12/29/2018 2:00 PM | | | | | PDT | | + + + + + | Pulse | 95 | 12/29/2018 2:00 PM | | | | | PDT | | + + + + + | Temperature | - | - | | + + + + + | Respiratory Rate | - | - | | + + + + + | Oxygen Saturation | 98% | 12/29/2018 2:00 PM | | | | | PDT | | + + + + + | Inhaled Oxygen | - | - | | | Concentration | | | | + + + + + | Weight | 64.6 kg (142 lb 6.4 | 12/29/2018 2:00 PM | | | | oz) | PDT | | + + + + + | Height | 160 cm (5' 3") | 12/29/2018 2:00 PM | | | | | PDT | | + + + + + | Body Mass Index | 25.23 | 12/29/2018 2:00 PM | | | | | PDT | | + + + + + documented in this encounter Patient Instructions Patient Instructions Silvia Sun Director Blood Bank - 12/29/2018 1:45 PM PDT You will need to get preoperative clearance from your primary care provider as well as your shipping support if you have one. If you decide to have surgery you would be looking at 3-4 days in the hospital. Surgery would be 1.5 hours give or take. You will likely need to go to rehab after surgery depending on how you are doing. We like to use surgery as a last resort. We are permanently altering your spine for the re st of your life. Let pain be your guide. If you are doing an activity that starts causing you pain back off and ease back into it slowly. We don't want you taking any risks that do not need to be ta yris. Pay attention to evolving trends. If you notice an increase in pain that does not get bett er with a few days rest and medication please let us know. If you ever have significant urinary retention, saddle anesthesia, or sudden loss of bowels or rectal tone you need to get to the emergency room JAY JAY as this is a medical emergency. This is also known as Cauda Equina syndrome. documented in this encounter Progress Notes Leonard Terrazas MD - 12/29/2018 1:45 PM PDT Leonard Terrazas MD [address] [place] [address], [address] [place] [address] PHONE: FAX: NEUROSURGERY HISTORY AND PHYSICAL EXAMINATION CHIEF COMPLAINT: Chief Complaint Patient presents with Follow-up LR for back pain HISTORY OF PRESENT ILLNESS: The patient is a 78 y.o. female that comes in with her abbey Ayala she has the complaint of back pain that began several years ago. She has a history or cervical fusion for neck and bilateral arm symptoms on 03/30/[address] Becerril. The back symptoms have been gradually worsening. She rates the back pain as moderate to se aleah. The back symptoms are intermittent and daily. She describes the back pain as crushin g, throbbing and tight band. On average she rates her pain as 6/10. When she is up and wal nicanor her pain is 10/10. When she is sitting her pain is 6/10. Her pain would have to get t o 6/10 to be happy and satisfied. She describes leg symptoms that occur on primarily on the right. The leg symptoms are inte rmittent, and the symptoms travel from the back into the right leg circumfrencially. She al so describes the loss of the ability to walk distances without sitting, numbness of the leg and weakness of the leg. She does not report any change in bowel or bladder function recently. Her symptoms improve with rest and changing position. Her symptoms worsen with standing, walking, kneeling, bending and twisting. She has tried Physical Therapy, Opioids, NSAIDS, Steroids, Injections, Muscle relaxer's, Br aces and Lifestyle Modification. The injections in her back are no longer helping as much a s they were before. She spends much of her time in bed and on the couch. Dr. Marissa Brush have stated that the injections have hit a plateau and that she needs to think about surgery. She is currently taking nerve medication and opioids. These measures are helping but less so than before. She has a history of a quadruple bipass and she is a breast cancer survivor PAST MEDICAL HISTORY: Past Medical History: Diagnosis Date Adverse effect of anesthesia trouble urinating after anesthesia Arthritis Asthma Cancer (HCC) Right breast Chronic narcotic use Coronary artery disease DDD (degenerative disc disease), cervical 05/13/2013 DDD (degenerative disc disease), lumbar 07/23/2012 Depression Diabetes mellitus (HCC) Facet arthritis of cervical region 05/13/2013 Facet arthritis of lumbar region-Most severe at L4-L5,L5-S1 07/23/2012 Full dentures upper & lower GERD (gastroesophageal reflux disease) Hyperlipidemia Hypertension Lumbar radiculopathy 07/23/2012 AK (myocardial infarction) (HCC) Neck pain on right side 05/13/2013 Oxygen dependent 2 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 Snoring Spinal stenosis of lumbar region with cgbxhtuqxtbof-W1-D1 level moderately severe 2012 PAST SURGICAL HISTORY: Past Surgical History: Procedure Laterality Date BELPHAROPTOSIS REPAIR 2009 bilateral bone spur left foot BREAST RECONSTRUCTION [id number] About 10 surgeries CARPAL TUNNEL RELEASE Bilateral CERVICAL SPINE SURGERY Anterior 03/30/2016 Procedure: C3-4, C4-5, C5-6, C6-7 Anterior Cervical Discectomy w/ Fusion and Plating; Bryan geon: Irving Becerril, DO; Location: [facility] MAIN OR CORONARY ARTERY BYPASS GRAFT 2009 HYSTERECTOMY, TOTAL ABDOMINAL 1969 MASTECTOMY, RADICAL 1987 Right MOUTH SURGERY 1957 She is edentulous Reconstruction of Left Thumb TONSILLECTOMY AND ADENOIDECTOMY 1946 CURRENT MEDICATIONS: Current Outpatient Medications Medication Sig Dispense Refill albuterol (VENTOLIN HFA) 90 mcg/puff inhaler Take 1 puff by mouth as needed. aspirin 81 mg chewable tablet Take 81 mg by mouth Daily. atorvaSTATin (LIPITOR) 40 mg tablet Take 40 mg by mouth nightly. benzonatate (TESSALON) 200 MG capsule Take 200 mg by mouth as needed. cyanocobalamin (VITAMIN B-12) 100 MCG TABS Take by mouth Daily. DULoxetine (CYMBALTA) [address] capsule TK ONE C PO QD 3 fentaNYL (DURAGESIC) 25 mcg/hr APPLY 1 PATCH TO THE SKIN Q 3 DAYS 0 furosemide (LASIX) 20 mg tablet Take 20 mg by mouth. gabapentin (NEURONTIN) 100 mg capsule Take 100 [...] Take 40 mg by mouth Daily. 2 potassium chloride (KLOR-CON) 10 MEQ ER tablet Take 10 mEq by mouth. raNITIdine (ZANTAC) 150 mg tablet Take 150 mg by mouth 2 times daily. No current facility-administered medications for this visit. ALLERGIES: Allergies Allergen Reactions Capsaicin Rash Muscle relaxers can only take 0.5 tablet when taking. Tape [Adhesive & Tape] Rash Tizanidine Hcl Other (See Comments) Pt states it affected her balance and made her feel like she was in a fog. SOCIAL HISTORY: The patient reports that she has never smoked. She has never used smokeless tobacco. She r eports that she drinks about 1.2 oz of alcohol per week. She reports that she does not use d rugs. FAMILY HISTORY: Family History Problem Relation Age [...] weight ch anges. EYES: No eye problems, no impaired sight, + use of corrective lenses, no eye injury, no do uble vision, no transient blindness. EARS, NOSE, AND THROAT: No changes in taste or smell, no hearing difficulty, + ringing in the ears, no ear drainage, no ear injury, no dizziness, no voice changes, no difficulty swal lowing, + significant snoring, no sleep apnea/CPAP, no sinus problems, + major dental work. NEUROLOGICALLY: Please see the review of systems discussed above in the history of present illness. In addition, She has weakness, pain in back. PSYCHIATRIC: + depression, + difficulty sleeping, no anxiety, no bipolar disorder. CARDIOVASCULAR: + heart attacks, no heart murmur, no heart fluttering, + chest pain, + ank le swelling. LUNG DISEASE: No shortness of breath, + cough, no tuberculosis, no bloody cough, no asthma , + emphysema/COPD. GASTROINTESTINAL: No bowel disease, no nausea or vomiting, no rectal bleeding, no constipa tion, no fecal stool incontinence, + liver/gallbladder disease, no abdominal pain, no ulcers . KIDNEY DISEASE: No urinary frequency, no painful or difficult urination, no urinary incont inence, no bladder problems, no impotence. ENDOCRINE: No diabetes, no thyroid disease, no osteopenia or osteoporosis, no breast drain age. SKIN: No breast lumps, no skin disease or skin changes, no rashes/itches. HEMATOLOGIC/LYMPHATIC: No enlarged lymph nodes, no easy or unusual bleeding, no personal h istory of cancer. RHEUMATOLOGIC: No joint pain/arthritis, no rheumatoid arthritis. PHYSICAL EXAMINATION: Blood pressure 108/62, pulse 95, height 1.6 m (5' 3"), weight 64.6 kg (142 lb 6.4 oz), SpO2 98 %, not currently . Body mass index is 25.23 kg/m. GENERAL: Clementine Winchester is in no acute distress with unlabored respirations. She does no t appear uncomfortable throughout the exam today. HEENT: Head: Normocephalic/atraumatic with no areas of recent trauma. Eyes: Normal sclerae without icterus. Ears: No drainage or tenderness. Nasopharynx: Clear without drainage. Oropharynx: Clear without erythema. NECK (ANTERIOR): Supple and without palpable masses. CHEST: Clear to ausculation without crackles or wheeze. HEART: Regular rate and rhythm without murmurs. ABDOMEN: Soft, non-tender, non-distended, and without palpable masses. The patient is not obese. EXTREMITIES: No cyanosis, clubbing, or edema. Distal pulses are palpable. NEUROLOGICAL EXAM: MENTAL STATUS: She is awake, alert, and oriented. She follows simple and complex commands. Her speech is fluent, she comprehends speech well, and she repeats well. 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 CRANIAL NERVES: II: Acuity is intact. Pepper are full [...] Indicates pain limited MUSCLE/ MOVEMENT: RIGHT LEFT Hip Flexion 5 5 Hip Extension 5 5 Knee Flexion 5 5 Knee Extension 5 5 Dorsiflexion 5 5 Extensor Hallicus Longus 5 5 Plantarflexion 5 5 SENSORY EXAM: Sensory exam shows no diminished sensation to light touch or pain throughout the upper and lower extremities. REFLEXES: (2 OR 2+ IS NORMAL) REFLEX: RIGHT LEFT PATELLAR 2 2 ACHILLES 1 1 RICE'S ABSENT ABSENT PLANTAR DOWNGOING DOWNGOING GAIT: Gait is steady. PERIPHERAL NERVE/MISC: Straight leg raise is negative bilaterally. Westley's test of the hips is negative bilaterally. TEST AND RADIOGRAPHIC REVIEW: Her imaging was reviewed in detail today during the visit. The MRI from 01/22/2018 shows se aleah stenosis due to facet hypertrophy and a grade 1 spondylolisthesis at L4-5. There is a lesser degree of canal stenosis at L3-4. Canal diameter is reasonably well preserved at L2-3 , but there is at least mild if not moderate stenosis at L1 2.. ASSESSMENT: Outpatient Morphine Equivalent Daily Dose (MEDD) 12/29/18 and after Unknown Order Name Dose Route Frequency Maximum MEDD fentaNYL (DURAGESIC) 25 mcg/hr Unknown Total Potential Daily Morphine Equivalence Unknown An error was encountered while attempting to calculate the morphine equivalent daily dose. Calculation Information fentaNYL (DURAGESIC) 25 mcg/hr Not enough information to calculate morphine equivalent daily dose. Opioid Risk Tool (ORT): Total Score 15 (12/29/18 1413) PEG Pain screening tool: Total score: 10 (12/29/18 1412) PHQ9 Depression scale: Total Score 11 (12/29/18 1412) General Anxiety Disorder (MANDEEP-7): Total Score 0 (12/29/18 1407) NEUROSURGICAL DIAGNOSES: Encounter Diagnoses Name Primary? Back pain, unspecified back location, unspecified back pain laterality, unspecified chr onicity Yes Spinal stenosis of lumbar region, unspecified whether neurogenic claudication present DDD (degenerative disc disease), lumbar Lumbar radiculopathy Spondylolisthesis of lumbar region GENERAL DIAGNOSES: Past Medical History: Diagnosis Date Adverse effect of anesthesia trouble urinating after anesthesia Arthritis Asthma Cancer (HCC) Right breast Chronic narcotic use Coronary artery disease DDD (degenerative disc disease), cervical 05/13/2013 DDD (degenerative disc disease), lumbar 07/23/2012 Depression Diabetes mellitus (HCC) Facet arthritis of cervical region 05/13/2013 Facet arthritis of lumbar region-Most severe at L4-L5,L5-S1 07/23/2012 Full dentures upper & lower GERD (gastroesophageal reflux disease) Hyperlipidemia Hypertension Lumbar radiculopathy 07/23/2012 AK (myocardial infarction) (HCC) Neck pain on right side 05/13/2013 Oxygen dependent 2 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 Snoring Spinal stenosis of lumbar region with lbbegqtvqxshw-M3-N7 level moderately severe 2012 PLAN: Clementine Winchester presented today, and it was a pleasure seeing this patient and assessing h er neurologic problems. The patient has Lumbar spinal stenosis and L4-L5 spondylolisthesis. The patient has stable symptoms but they continue to cause a great deal of impairment and harm to her quality of l jenni. I had a lengthy discussion with her about her options for care including surgical and non-s urgical options. In discussing the surgical options, we discussed in detail her options for right sided L1-L 5 decompression. She understands that in most instances the recovery from surgery can be lengthy and sometim es difficult. We've also discussed the risk of surgery including paralysis bleeding i nfection and he ever present specter of worsened pain after surgery. She and her daughter i ndicate their understanding and acceptance of these issues. She would like to be considered for surgery as discussed and would like us to seek authoriz ation and clearance for the operation.. She will need to undergo cardiac stress testing and visit with her primary care provider pr ior to surgical intervention. I, Leonard Terrazas MD, personally performed the services described in this documentatio n, as scribed by KRISTIE Brar, in my presence, and it is both accurate and complete . Leonard Terrazas MD ELECTRONICALLY SIGNED BY: Leonard Terrazas MD, 12/29/2018 14:52 documented in this encounter Plan of Treatment [...] | | | | | | [place] [address] | | | | | | [phone] | | | | | | | | +--------+---------+ + + + | 07/30/ | Office | Cardiology | Agata Tinajero DO | | | 2019 | Visit | | [address] | | | | | | [place] | | | | | | [address] | | | | | | | | +--------+---------+ + + + documented as of this encounter Visit Diagnoses + + | Diagnosis | + + | Back pain, unspecified back location, unspecified back pain laterality, unspecified | | chronicity - Primary | + + | Spinal stenosis of lumbar region, unspecified whether neurogenic claudication present | + + | DDD (degenerative disc disease), lumbar Degeneration of lumbar or lumbosacral | | intervertebral disc | + + | Lumbar radiculopathy Thoracic or lumbosacral neuritis or radiculitis, unspecified | + + | Spondylolisthesis of lumbar region Acquired spondylolisthesis | + + documented in this encounter
--- OUTSIDE RECORDS SUMMARY | ~2019-05-12 | XMS | Encounter Summary ---
Demographics + + + | Address | [address] | | | [place] [address] | + + + | Home Phone | | + + + | Preferred Language | Unknown | + + + | Marital Status | | + + + | Episcopalian Affiliation | [id number] | + + + | Race | Unknown | + + + | Ethnic Group | Unknown | + + + Author + + + | Author | [facility] | | | and [place] | + + + | Organization | [facility] | | | and [place] | + + + | Address | Unknown | + + + | Phone | Unavailable | + + + Support + + + + + | Name | Relationship | Address | Phone | + + + + + | Lucy Winchester | ECON | [place], | | | | | [place] [address] | | + + + + + | Kellen Briones | ECON | [place] | | | | | [address] | | + + + + + Care Team Providers + +------+ + | Care Waterproof Coating Machine Tender Name | Role | Phone | + +------+ + | Barb Marte | THANG | | + +------+ + Encounter Details +--------+ + + + + | Date | Type | Department | Care Team | Description | +--------+ + + + + | 08/20/ | Orders Only | [facility] | Jose Perry V, | | | 2017 | | CONVERSION 888 | MD [address] | | | | | [address] | [address] [place], [place] | | | | | [place], [place] | [address] | | | | | [address] | | | | | | [phone] | | | +--------+ + + + [...] | 2019 | Visit | | [address] | | | | | | [place], | | | | | | [place] [address] | | | | | | [phone] | | | | | | | | +--------+---------+ + + + | 07/30/ | Office | Cardiology | Agata Tinajero DO | | | 2019 | Visit | | [address] | | | | | | [place] | | | | | | [address] | | | | | | | | +--------+---------+ + + + documented as of this encounter Procedures + +--------+ + + + | Procedure Name | Priori | Date/Time | Associated Diagnosis | Comments | | | ty | | | | + +--------+ + + + | ECHO INTERPRETATION | Routin | 08/20/2017 | | Results for this | | OF OUTSIDE FILMS | e | 11:46 AM | | procedure are in the | | | | PDT | | results section. | + +--------+ + + + documented in this encounter Results ECHO Interpretation of Outside Films (08/20/2017 11:46 AM PDT) + + | Specimen | + + | | + + + + + | Impressions | Performed At | + + + | 1. Overall left ventricular systolic function is normal with, an EF | | | between 65 - 70 %. 2. The diastolic filling pattern indicates | | | impaired relaxation consistent with mild dysfunction (Grade I). 3. | | | The right ventricle is moderately to markedly enlarged. 4. The right | | | ventricular systolic function is moderately impaired. 5. The right | | | atrium is mildly enlarged. 6. Moderate to severe tricuspid | | | regurgitation present. 7. There is mild pulmonary hypertension. 8. | | | No vegetation visualized. 9. Multiple changes are noted, as reported | | | below, in comparison to the previous echocardiographic study, done | | | 07/07/09. | | + + + + + + | Narrative | Performed At | + + + | Patient Name: CLEMENTINE WINCHESTER Date of : 1940 | | | Performing Physician: BUCK SOTO MD | | | | | | INDICATIONS Sepsis, CAD, CABG, elevated troponin | | | CONCLUSIONS 1. Overall left ventricular systolic | | | function is normal with, an EF between 65 - 70 %. 2. The diastolic | | | filling pattern indicates impaired relaxation consistent with mild | | | dysfunction (Grade I). 3. The right ventricle is moderately to | | | markedly enlarged. 4. The right ventricular systolic function is | | | moderately impaired. 5. The right atrium is mildly enlarged. 6. | | | Moderate to severe tricuspid regurgitation present. 7. There is mild | | | pulmonary hypertension. 8. No vegetation visualized. 9. Multiple | | | changes are noted, as reported below, in comparison to the previous | | | echocardiographic study, done 07/07/09. FINDINGS -------- ECG | | | rhythm: Sinus rhythm. Study: A 2-dimensional transthoracic | | | echocardiogram with m-mode, spectral and color flow Doppler was | | | perfomed. Study: This was a technically adequate study. Left | | | Ventricle: Overall left ventricular systolic function is normal with, | | | an EF between 65 - 70 %. It was 60 - 65% on the previous study. | | | Left Ventricle: The left ventricle cavity size is normal. Left | | | Ventricle: There is mild concentric left ventricular hypertrophy. | | | Left Ventricle: No regional wall motion abnormalities. Left | | | Ventricle: The diastolic filling pattern indicates impaired relaxation | | | consistent with mild dysfunction (Grade I), unchanged from the | | | previous study. Right Ventricle: The right ventricle is moderately to | | | markedly enlarged, unchanged from the prior study. Right Ventricle: | | | The right ventricular systolic function is moderately impaired. It | | | had normal systolic function on the previous evaluation. Left Atrium: | | | The left atrium is normal in size. Right Atrium: The right atrium is | | | mildly enlarged. It was normal in size on the previous study. | | | Aortic Valve: The aortic valve appears to be trileaflet. Aortic | | | Valve: There is no evidence of aortic regurgitation. Aortic Valve: | | | There is no evidence of aortic stenosis. Mitral Valve: The mitral | | | valve is normal. Mitral Valve: Mild mitral regurgitation is present, | | | unchanged from the previous study. Mitral Valve: No evidence of MVP | | | Mitral Valve: Mild thickening of the anterior mitral valve leaflet. | | | Tricuspid Valve: The tricuspid valve appears structurally normal. | | | There is m Tricuspid Valve: oderate to severe tricuspid regurgitation | | | present, increased from mild TR on the previous study. Tricuspid | | | Valve: There is mild pulmonary hypertension. Tricuspid Valve: The | | | right ventricular systolic pressure (pulmonary artery systolic | | | pressure), as measured by Doppler, is 43.58mmHg, increased from 24 mm | | | Hg (normal pulmonary artery pressure) on the previous study. Pulmonic | | | Valve: The pulmonic valve is normal. Pulmonic Valve: Trace | | | pulmonic regurgitation, unchanged from the previous study. | | | Pericardium: There is no pericardial effusion. IVC/Hepatic Veins: The | | | IVC is normal size (1.5-2.5cm) and collapses <50% with sniff, | | | consistent with central venous pressures of 10-15mmHg. Aorta: The | | | aortic root, ascending aorta and aortic arch are normal. Mass: No | | | mass visualized Thrombus: No clot visualized Thrombus: No vegetation | | | visualized. Septum: No ASD observed. Septum: No VSD observed. | | | MEASUREMENTS Ao asc: 2.82 cm Ao Diam: 2.85 cm | | | Ao sinus: 2.[address] junct: 2.78 cm IVC: 1.96 cm LA | | | Diam: 3.46 cm LA Major: 4.37 cm EDV(Teich): 58.20 ml IVSd: | | | 1.14 cm LVIDd: 3.70 cm LVPWd: 1.17 cm LVOT Area: 3.02 | | | cm2 LVOT Diam: 1.96 cm %FS: 38.74 % EF(Teich): 69.95 % | | | ESV(Teich): 17.48 ml LVIDs: 2.26 cm SV(Teich): 40.71 ml RA | | | Major: 5.20 cm RV Major: 6.47 cm RV Minor: 4.37 cm RVIDd: | | | 4.04 cm LVEF MOD A2C: 69.88 % SV MOD A2C: 35.15 ml LVEF | | | MOD A4C: 64.45 % SV MOD A4C: 34.31 ml EF Biplane: 67.87 % | | | LVEDV MOD BP: 52.83 ml LVESV MOD BP: 16.97 ml LVEDV MOD A2C: | | | 50.30 ml LVLd A2C: 6.69 cm LVEDV MOD A4C: 53.23 ml LVLd | | | A4C: 7.02 cm LVESV MOD A2C: 15.14 ml LVLs A2C: 5.60 cm | | | LVESV MOD A4C: 18.92 ml LVLs A4C: 5.75 cm LAESV(A-L): 36.58 | | | ml LAESV Index (A-L): 22.04 ml/m2 LAAs A2C: 13.50 cm2 LAESV | | | A-L A2C: 36.98 ml LALs A2C: 4.18 cm LAAs A4C: 13.35 cm2 | | | LAESV A-L A4C: 31.07 ml LALs A4C: 4.87 cm RAAs: 22.15 cm2 | | | RAESV A-L: 78.87 ml RAESV MOD: 76.76 ml RALs: 5.28 cm | | | TAPSE: 1.36 cm AV maxP.05 mmHg AV meanP.09 mmHg AV | | | Vmax: 1.50 m/s AV Vmean: 1.08 m/s AV VTI: 30.75 cm PREETHI | | | Vmax: 2.05 cm2 PREETHI (VTI): 2.07 cm2 AVAI Vmax: 0.00 cm2/m2 | | | AVAI (VTI): 0.00 cm2/m2 LVOT maxP.16 mmHg LVOT meanPG: | | | 2.03 mmHg LVSI Dopp: 38.41 ml/m2 LVSV Dopp: 63.76 ml LVOT | | | Vmax: 1.02 m/s LVOT Vmean: 0.65 m/s LVOT VTI: 21.09 cm MV | | | A Obed: 1.25 m/s MV DecT: 137.22 ms MV E Oebd: 1.08 m/s MV | | | E/A Ratio: 0.86 MV PHT: 39.79 ms MVA By PHT: 5.52 cm2 | | | Septal e': 0.03 m/s Septal E/e': 33.19 Lateral e': 0.05 m/s | | | Lateral E/e': 19.41 RAP: 10 mmHg RVSP: 43.57 mmHg TR | | | maxP.57 mmHg TR Vmax: 2.89 m/s Hat Copyist: | | | Authenticated by: BUCK SOTO MD Report Date/Time: 08-20-2017 | | | 19:4:36 | | + + + + + | Procedure Note | + + | Nilay Lawrence Conversion - 01/22/2019 4:33 PM PDT Patient Name: Jaja WINCHESTER of | | : 1940 Performing Physician: BUCK SOTO, | | INDICATIONS S | | epsis, CAD, CABG, elevated troponin CONCLUSIONS 1. Overall left ventricular | | systolic function is normal with, an EF between 65 - 70 %.2. The diastolic filling | | pattern indicates impaired relaxation consistent with mild dysfunction (Grade I).3. The | | right ventricle is moderately to markedly enlarged.4. The right ventricular systolic | | function is moderately impaired.5. The right atrium is mildly enlarged.6. Moderate to | | severe tricuspid regurgitation present.7. There is mild pulmonary hypertension.8. No | | vegetation visualized. 9. Multiple changes are noted, as reported below, in comparison | | to the previous echocardiographic study, done 07/07/09. FINDINGS--------ECG rhythm: Sinus | | rhythm.Study: A 2-dimensional transthoracic echocardiogram with m-mode, spectral and | | color flow Doppler was perfomed.Study: This was a technically adequate study.Left | | Ventricle: Overall left ventricular systolic function is normal with, an EF between 65 - | | 70 %. It was 60 - 65% on the previous study.Left Ventricle: The left ventricle cavity | | size is normal.Left Ventricle: There is mild concentric left ventricular | | hypertrophy.Left Ventricle: No regional wall motion abnormalities.Left Ventricle: The | | diastolic filling pattern indicates impaired relaxation consistent with mild dysfunction | | (Grade I), unchanged from the previous study.Right Ventricle: The right ventricle is | | moderately to markedly enlarged, unchanged from the prior study.Right Ventricle: The | | right ventricular systolic function is moderately impaired. It had normal systolic | | function on the previous evaluation.Left Atrium: The left atrium is normal in size.Right | | Atrium: The right atrium is mildly enlarged. It was normal in size on the previous | | study.Aortic Valve: The aortic valve appears to be trileaflet.Aortic Valve: There is no | | evidence of aortic regurgitation.Aortic Valve: There is no evidence of aortic | | stenosis.Mitral Valve: The mitral valve is normal.Mitral Valve: Mild mitral | | regurgitation is present, unchanged from the previous study.Mitral Valve: No evidence of | | MVPMitral Valve: Mild thickening of the anterior mitral valve leaflet.Tricuspid Valve: | | The tricuspid valve appears structurally normal. There is mTricuspid Valve: oderate to | | severe tricuspid regurgitation present, increased from mild TR on the previous | | study.Tricuspid Valve: There is mild pulmonary hypertension.Tricuspid Valve: The right | | ventricular systolic pressure (pulmonary artery systolic pressure), as measured by | | Doppler, is 43.58mmHg, increased from 24 mm Hg (normal pulmonary artery pressure) on the | | previous study.Pulmonic Valve: The pulmonic valve is normal.Pulmonic Valve: Trace | | pulmonic regurgitation, unchanged from the previous study.Pericardium: There is no | | pericardial effusion.IVC/Hepatic Veins: The IVC is normal size (1.5-2.5cm) and collapses | | <50% with sniff, consistent with central venous pressures of 10-15mmHg.Aorta: The | | aortic root, ascending aorta and aortic arch are normal.Mass: No mass | | visualizedThrombus: No clot visualizedThrombus: No vegetation visualized.Septum: No ASD | | observed.Septum: No VSD observed. MEASUREMENTS Ao asc: 2.82 cmAo Diam: | | 2.85 cmAo sinus: 2.[address] junct: 2.78 cmIVC: 1.96 cmLA Diam: 3.46 cmLA | | Major: 4.37 cmEDV(Teich): 58.20 mlIVSd: 1.14 cmLVIDd: 3.70 cmLVPWd: 1.17 | | cmLVOT Area: 3.02 [id number] Diam: 1.96 cm%FS: 38.74 %EF(Teich): 69.95 %ESV(Teich): | | 17.48 mlLVIDs: 2.26 cmSV(Teich): 40.71 mlRA Major: 5.20 cmRV Major: 6.47 cmRV | | Minor: 4.37 cmRVIDd: 4.04 cmLVEF MOD A2C: 69.88 %SV MOD A2C: 35.15 mlLVEF MOD | | A4C: 64.45 %SV MOD A4C: 34.31 mlEF Biplane: 67.87 %LVEDV MOD BP: 52.83 mlLVESV | | MOD BP: 16.97 mlLVEDV MOD A2C: 50.30 mlLVLd A2C: 6.69 cmLVEDV MOD A4C: 53.23 | | mlLVLd A4C: 7.02 cmLVESV MOD A2C: 15.14 mlLVLs A2C: 5.60 cmLVESV MOD A4C: 18.92 | | mlLVLs A4C: 5.75 cmLAESV(A-L): 36.58 mlLAESV Index (A-L): 22.04 ml/m2LAAs A2C: | | 13.50 [id number] A-L A2C: 36.98 mlLALs A2C: 4.18 cmLAAs A4C: 13.35 [id number] A-L A4C: | | 31.07 mlLALs A4C: 4.87 cmRAAs: 22.15 [id number] A-L: 78.87 mlRAESV MOD: 76.76 | | mlRALs: 5.28 cmTAPSE: 1.36 cmAV maxP.05 mmHgAV meanP.09 mmHgAV Vmax: | | 1.50 m/Shreyas Vmean: 1.08 m/Shreyas VTI: 30.75 cmAVA Vmax: 2.05 cm2AVA (VTI): 2.07 | | [id number] Vmax: 0.00 cm2/m2AVAI (VTI): 0.00 cm2/m2LVOT maxP.16 mmHgLVOT meanPG: | | 2.03 mmHgLVSI Dopp: 38.41 ml/m2LVSV Dopp: 63.76 mlLVOT Vmax: 1.02 m/sLVOT Vmean: | | 0.65 m/sLVOT VTI: 21.09 cmMV A Obed: 1.25 m/sMV DecT: 137.22 msMV E Obed: 1.08 | | m/sMV E/A Ratio: 0.86MV PHT: 39.79 msMVA By PHT: 5.52 [id number] e': 0.03 | | m/sSeptal E/e': 33.19Lateral e': 0.05 m/sLateral E/e': 19.41RAP: 10 mmHgRVSP: | | 43.57 mmHgTR maxP.57 mmHgTR Vmax: 2.89 m/s Hat Copyist:Authenticated by: | | ELIZABETH ROYeport Date/Time: 08-20-2017 19:4:36 IMPRESSION: 1. Overall left | | ventricular systolic function is normal with, an EF between 65 - 70 %.2. The diastolic | | filling pattern indicates impaired relaxation consistent with mild dysfunction (Grade | | I).3. The right ventricle is moderately to markedly enlarged.4. The right ventricular | | systolic function is moderately impaired.5. The right atrium is mildly enlarged.6. | | Moderate to severe tricuspid regurgitation present.7. There is mild pulmonary | | hypertension.8. No vegetation visualized. 9. Multiple changes are noted, as reported | | below, in comparison to the previous echocardiographic study, done 07/07/09. | |LA Major: 4.37 cm | |EDV(Teich): 58.20 ml | |IVSd: 1.14 cm | |LVIDd: 3.70 cm | |LVPWd: 1.17 cm | |LVOT Area: 3.02 cm2 | |LVOT Diam: 1.96 cm | |%FS: 38.74 % | |EF(Teich): 69.95 % | |ESV(Teich): 17.48 ml | |LVIDs: 2.26 cm | |SV(Teich): 40.71 ml | |RA Major: 5.20 cm | |RV Major: 6.47 cm | |RV Minor: 4.37 cm | |RVIDd: 4.04 cm | |LVEF MOD A2C: 69.88 % | |SV MOD A2C: 35.15 ml | |LVEF MOD A4C: 64.45 % | |SV MOD A4C: 34.31 ml | |EF Biplane: 67.87 % | |LVEDV MOD BP: 52.83 ml | |LVESV MOD BP: 16.97 ml | |LVEDV MOD A2C: 50.30 ml | |LVLd A2C: 6.69 cm | |LVEDV MOD A4C: 53.23 ml | |LVLd A4C: 7.02 cm | |LVESV MOD A2C: 15.14 ml | |LVLs A2C: 5.60 cm | |LVESV MOD A4C: 18.92 ml | |LVLs A4C: 5.75 cm | |LAESV(A-L): 36.58 ml | |LAESV Index (A-L): 22.04 ml/m2 | |LAAs A2C: 13.50 cm2 | |LAESV A-L A2C: 36.98 ml | |LALs A2C: 4.18 cm | |LAAs A4C: 13.35 cm2 | |LAESV A-L A4C: 31.07 ml | |LALs A4C: 4.87 cm | |RAAs: 22.15 cm2 | |RAESV A-L: 78.87 ml | |RAESV MOD: 76.76 ml | |RALs: 5.28 cm | |TAPSE: 1.36 cm | |AV maxP.05 mmHg | |AV meanP.09 mmHg | |AV Vmax: 1.50 m/s | |AV Vmean: 1.08 m/s | |AV VTI: 30.75 cm | |PREETHI Vmax: 2.05 cm2 | |PREETHI (VTI): 2.07 cm2 | |AVAI Vmax: 0.00 cm2/m2 | |AVAI (VTI): 0.00 cm2/m2 | |LVOT maxP.16 mmHg | |LVOT meanP.03 mmHg | |LVSI Dopp: 38.41 ml/m2 | |LVSV Dopp: 63.76 ml | |LVOT Vmax: 1.02 m/s | |LVOT Vmean: 0.65 m/s | |LVOT VTI: 21.09 cm | |MV A Obed: 1.25 m/s | |MV DecT: 137.22 ms | |MV E Obed: 1.08 m/s | |MV E/A Ratio: 0.86 | |MV PHT: 39.79 ms | |MVA By PHT: 5.52 cm2 | |Septal e': 0.03 m/s | |Septal E/e': 33.19 | |Lateral e': 0.05 m/s | |Lateral E/e': 19.41 | |RAP: 10 mmHg | |RVSP: 43.57 mmHg | |TR maxP.57 mmHg | |TR Vmax: 2.89 m/s | | | |Hat Copyist: | |Authenticated by: BUCK SOTO MD | |Report Date/Time: 08-20-2017 19:4:36 | | | |IMPRESSION: | |1. Overall left ventricular systolic function is normal with, an EF between 65 - 70 %. | |2. The diastolic filling pattern indicates impaired relaxation consistent with mild dysfunc tion (Grade I). | |3. The right ventricle is moderately to markedly enlarged. | |4. The right ventricular systolic function is moderately impaired. | |5. The right atrium is mildly enlarged. | |6. Moderate to severe tricuspid regurgitation present. | |7. There is mild pulmonary hypertension. | |8. No vegetation visualized. 9. Multiple changes are noted, as reported below, in compariso n to the previous echocardiographic study, done 07/07/09. | + + documented in this encounter Visit Diagnoses Not on filedocumented in this encounter"
--- OUTSIDE RECORDS SUMMARY | ~2019-05-12 | XMS | Encounter Summary ---
Demographics + + + | Address | [address] | | | [place] [address] | + + + | Home Phone | | + + + | Preferred Language | Unknown | + + + | Marital Status | | + + + | Anabaptism Affiliation | 1041 | + + + | Race | Unknown | + + + | Ethnic Group | Unknown | + + + Author + + + | Author | [facility] | | | and [place] | + + + | Organization | [facility] | | | and [place] | + + + | Address | Unknown | + + + | Phone | Unavailable | + + + Support + + + + + | Name | Relationship | Address | Phone | + + + + + | Lucy Winchester | ECON | [place], | | | | | [place] [address] | | + + + + + | Kellen Briones | ECON | [place], [place] | | | | | [address] | | + + + + + Care Team Providers + +------+ + | Care Mining Teacher Name | Role | Phone | + +------+ + | Anna De Guzman PA-C | PCP | | + +------+ + Reason for Visit +---------+ + | Reason | Comments | +---------+ + | Results | | +---------+ + Encounter Details +--------+ + + + + | Date | Type | Department | Care Team | Description | +--------+ + + + + | 08/28/ | Telephone | [facility] | Patrick Gaffney MD [address] | Results | | 2012 | | NEUROLOGY [place] | [facility] | | | | | [address] [facility], | [address] [place], | | | | | [address] [place] | [place] [address] | | | | | [place] [address] | [phone] | | | | | [phone] | | | +--------+ + + + [...] | | | | | | [place] [address] | | | | | | [phone] | | | | | | | | +--------+---------+ + + + | 07/30/ | Office | Cardiology | Agata Tinajero DO | | | 2019 | Visit | | [address] | | | | | | [place] | | | | | | [address] | | | | | | | | +--------+---------+ + + + documented as of this encounter Visit Diagnoses Not on filedocumented in this encounter"
--- OUTSIDE RECORDS SUMMARY | ~2019-05-12 | XMS | Encounter Summary ---
Demographics + + + | Address | [address] | | | [place] [address] | + + + | Home Phone | | + + + | Preferred Language | Unknown | + + + | Marital Status | | + + + | Jainism Affiliation | 1041 | + + + | Race | Unknown | + + + | Ethnic Group | Unknown | + + + Author + + + | Author | [facility] | | | and [place] | + + + | Organization | [facility] | | | and [place] | + + + | Address | Unknown | + + + | Phone | Unavailable | + + + Support + + + + + | Name | Relationship | Address | Phone | + + + + + | Lucy Winchester | ECON | [place], | | | | | [place] [address] | | + + + + + | Kellen Briones | ECON | [place], [place] | | | | | [address] | | + + + + + Care Team Providers + +------+ + | Care Third Hand Name | Role | Phone | + +------+ + | Anna De Guzman PA-C | PCP | | + +------+ + Reason for Visit + + + | Reason | Comments | + + + | Back Pain | low back pain radiating into bilateral legs | + + + Encounter Details +--------+---------+ + + + | Date | Type | Department | Care Team | Description | +--------+---------+ + + + | 10/18/ | Office | [facility] | [place], | Cervical stenosis of | | 2016 | Visit | PHYSIATRY [address] | [address] | spinal canal | | | | [place], | [facility], | (Primary Dx); | | | | [place] [address] | [place] [address] | Spondylolisthesis of | | | | [phone] | [phone] | cervical region; | | | | | | 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; | | | | | | Lumbar | | | | | | radiculopathy; | | | | | | Spinal stenosis of | | | | | | lumbar region with | | | | | | [id number]-[id number]-X1 | | | | | | level moderately | | | | | | severe; Facet | | | | | | arthritis of lumbar | | | | | | region-Most severe | | | | | | at L4-L5,L5-S1; Neck | | | | | | [...] | | | | or radiculopathy | +--------+---------+ + + + Social History [...] + + + | Blood Pressure | 160/75 | 10/19/2015 3:14 PM | | | | | PDT | | + + + + + | Pulse | 90 | 10/19/2015 3:14 PM | | | | | PDT [...] Weight | 69.4 kg (153 lb) | 10/19/2015 3:14 PM | | | | | PDT | | + + + + + | Height | 160 cm (5' 3") | 10/19/2015 3:14 PM | | | | | PDT | | + + + + + | Body Mass Index | 27.1 | 10/19/2015 3:14 PM | | | | | PDT | | + + + + + documented in this encounter Patient Instructions Patient Instructions Claudia Das PA-C - 10/19/2015 3:31 PM PDT Follow-up at the hospital thirty [...] of the procedure you must provide a straddle bug driver to take you home. For all procedur es it is recommended that someone else drive you home. documented in this encounter Progress Notes Claudia Das PA-C - 10/19/2015 3:35 PM PDTFormatting of this note might be differe nt from the original. CHIEF COMPLAINT: Chief Complaint Patient presents with Back Pain low back pain radiating into bilateral legs HISTORY OF PRESENT ILLNESS: The patient is a 75 y.o. female being seen today in follow-up for complaints of low back pa in. The patient has been seen for this complaint in the past. Previously it was recommend ed that she receive bilateral L5/S1 TFESI for spinal stenosis. Her last injection was 016. She reports that the treatment was effective for approximately 2 months. The patient reports overall her symptoms are worsening. She rates the pain as 9 on scale of 1-10. She describes the pain as a twisting sensation to her low back and an aching pain into both legs , sharp at times. Her symptoms worsen with standing and prolonged walking. Her symptoms im prove with lying down, sitting down and medication use. The patient does not describe numbn ess of the bilateral lower extremities. She does not report weakness of the bilateral lowe r extremities. The patient does not report recent falls or trauma. She does not have bowel and bladder dysfunction. She does not have saddle anesthesia. She also complains of right sided neck pain. She had received cervical facet injections by Dr. Ann in the past which has always given her relief. She is hoping for more injec tions. She reports neck pain and crepitus with rotation of the cervical spine, she denies h eadaches, she denies any upper extremity paresthesias or radiation of pain. She reports a c onstant aching to the right side of the cervical spine which is worse with flexion. The patient's neck symptoms have been a chronic issue. She has had prior imaging that showe d significant degenerative disc disease, especially at C4-C5, C5-C6 and C6-C7. She did discu ss these issues with Dr. Ramon Real. It is not clear whether or not she was a jcarlos te for surgery but regardless she is trying to avoid surgery as long as possible. Treatments for these complaints have included prior steroid injections, physical therapy, c hiropractics therapy and narcotic medications use; she currently uses [place], Flexeril and ga bapentin. Patient's medications, allergies, [...] No abnormal bleeding PHYSICAL EXAMINATION: Filed Vitals: 10/19/15 1514 BP: 160/75 Pulse: 90 PainSc: 9 PainLoc: Back Body mass index is 27.11 [...] has no apparent deficits with short or chcf memory. She has appropriate fund of knowledge Cranial nerves 2-12 appear grossly intact. Sensory exam does not show diminished sensation to light touch in the lower extremities. REFLEX: RIGHT LEFT BICEPS 2+ 2+ BRACHIORADIALIS 2+ 2+ TRICEPS 2+ 2+ PATELLAR 2+ 2+ ACHILLES 1+ 1+ RICE'S Negative Negative PLANTAR Downgoing Downgoing MUSCULOSKELETAL There is no tenderness in the midline of the cervical or thoracic spine. T here is no major palpable deformity of the spine. Range of motion testing of the cervical spine was limited with rotation and lateral bending . Spurling sign was negative. Shoulder examination shows well preserved range of motion with external rotation, internal rotation and abduction. Impingement testing was Negative. There was no tenderness over th e bicipital groove or over the AC joint. Speed's test was Negative. Empty can test was Nega tive. Strength testing, including strength testing of the infraspinatus, supraspinatus an d subscapularis, in bilateral upper extremities showed 5/5 strength with no focal weakness. Straight leg raise and slump-sit are negative. [...] along with multilevel facet arthritis. ASSESSMENT: 1. Cervical stenosis of spinal canal 2. Spondylolisthesis of cervical region 3. Spondylolisthesis of lumbar region 4. Lumbar radiculopathy 5. Spinal stenosis of lumbar region with lgagqeozhzrqx-U3-E0 level moderately severe 6. Facet arthritis of lumbar region-Most severe at L4-L5,L5-S1 7. Neck pain on right side 8. Facet arthritis of cervical region 9. DDD (degenerative disc disease), cervical PLAN: 1. The patient has benefited from prior epidural injections and is hoping to receive addit ional injections. I did feel that was appropriate and I offered to repeat the bilateral L5- S1 transforaminal epidural steroid injections. This will be performed by Dr. Ann in t he near future. Two weeks after this procedure do think she be a good candidate for interve ntional procedures of the cervical spine. Therefore I have offered cervical facet injection s off to the right at C4-C5, C5-C6 and C6-C7. 2. I did not make any changes in her medications today. 3. She may be a candidate for surgical management at some point, likely first on the lumba r spine, although she does have medical comorbidities. She has had open heart surgery 3 year s ago and would need cardiac clearance. She would also need a DEXA scan prior. She has previ ously seen Dr. Real and would want a consult with Dr. Mathew if she decides to pursue surg cindy. ELECTRONICALLY SIGNED BY: Claudia Das PA-C, 10/19/2015 documented in t his encounter Plan of Treatment +--------+---------+ + + + | Date | Type | Specialty | Care Team | Description | +--------+---------+ + + + | 06/04/ | Office | Orthopedic Surgery | Monster White MD | | | 2019 | Visit | | [address] | | | | | | [place], | | | | | | [place] [address] | | | | | | [phone] | | | | | | | | +--------+---------+ + + + | 07/30/ | Office | Cardiology | Agata Tinajero DO | | | 2020 | Visit | | [address] | | | | | | [place], [place] | | | | | | [address] | | | | | | | | +--------+---------+ + + + documented as of this encounter Results FL Facet Injection Cervical (11/30/2015 2:19 PM PDT) + + | Specimen | + + | | + + + + + | Narrative | Performed At | + + + | 11/30/2015 Cervical Facet Steroid Injections Diagnosis: | [facility] | | Cervical Facet Arthritis ICD-10 Code M43.12 Clementine Winchester | [facility] | | presents to the fluoroscopy suite for fluoroscopically-guided | [facility] | | bilateral right C3, C4 and [...] ST. | [address] | [place] | [phone] | | [facility] | | [address] | | | - IMAGING | | | | + + + + + FL BAUTISTA Lumbar Transforaminal (11/16/2015 2:29 PM PDT) + + | Specimen | + + | | + + + + + | Narrative | Performed At | + + + | 11/16/2015 Bilateral Transforaminal Epidural Steroid Injections | [facility] | | Diagnosis: Lumbar radiculopathy ICD-10 Code M54.16 Clementine | [facility] | | Lizett Winchester presents to the fluoroscopy suite for [facility] | | fluoroscopically-guided bilateral L5-S1 transforaminal epidural [...] + + | Performing | Address | City/State/[facility] Centercode | Phone Number | | Organization | | | | + + + + + | [facility] | [address] | [place] | [phone] | | [facility] | | [address] | | | - IMAGING | | | | + + + + + documented in this encounter Visit Diagnoses + + | Diagnosis | + + | Cervical stenosis of spinal canal - Primary Spinal stenosis in cervical region | + + | Spondylolisthesis of cervical region Acquired spondylolisthesis | + + | Spondylolisthesis of lumbar region Acquired spondylolisthesis | + + | Lumbar radiculopathy Thoracic or lumbosacral neuritis or radiculitis, unspecified | + + | Spinal stenosis of lumbar region with ohjopnlqgbqof-V8-L7 level moderately severe | | Spinal stenosis, lumbar region, without neurogenic claudication | + + | Facet arthritis of lumbar region-Most severe at L4-L5,L5-S1 Lumbosacral spondylosis | | without myelopathy | + + | Neck pain on [...]
--- OUTSIDE RECORDS SUMMARY | ~2019-05-12 | XMS | Encounter Summary ---
Demographics + + + | Address | [address] | | | [place] [address] | + + + | Home Phone | | + + + | Preferred Language | Unknown | + + + | Marital Status | | + + + | Taoism Affiliation | 1041 | + + + [...] [place], | | | | | [place] [address] | | + + + + + | Kellen Briones | ECON | [place] | | | | | [address] | | + + + + + Care Team Providers + +------+ + | Care Systematic Theology Professor Name | Role | Phone | + +------+ + | Barb Marte | THANG | | + +------+ + Encounter Details +--------+ + + + + | Date | Type | Department | Care Team | Description | +--------+ + + + + | 01/17/ | Imaging | LUIS MANUELRIJosiane CARLOS REINALDO | Provider, | | | 2018 | Exam | [facility] | [address] | | | | | IMAGING | [place] | | | | | [phone] | [place] [address] | | +--------+ + + + + [...] | | | | | | [place] [address] | | | | | | [phone] | | | | | | | | +--------+---------+ + + + | 07/30/ | Office | Cardiology | TinajeroAgata joshiDO | | | 2019 | Visit | | [address] | | | | | | [place] | | | | | | [address] | | | | | | | | +--------+---------+ + + + documented as of this encounter Procedures + +--------+ + + + | Procedure Name | Priori | Date/Time | Associated Diagnosis | Comments | | | ty | | | | + +--------+ + + + | RACHEL DIGITAL | Routin | 04/27/2013 | | Results for this | | SCREENING LEFT | e | 2:30 PM | | procedure are in the | | | | PST | | results section. | + +--------+ + + + documented in this encounter Results RACHEL Digital Screening Left (04/27/2013 2:30 PM PST) + + | Specimen | [...]
--- OUTSIDE RECORDS SUMMARY | ~2019-05-12 | XMS | Encounter Summary ---
Demographics + + + | Address | [address] | | | [place] [address] | + + + | Home Phone | | + + + | Preferred Language | Unknown | + + + | Marital Status | | + + + | Amish Affiliation | 1041 | + + + | Race | Unknown | + + + | Ethnic Group | Unknown | + + + Author + + + | Author | [facility] | | | and [place] | + + + | Organization | [facility] | | | and [place] | + + + | Address | Unknown | + + + | Phone | Unavailable | + + + Support + + + + + | Name | Relationship | Address | Phone | + + + + + | Lucy Winchester | ECON | [place], | | | | | [place] [address] | | + + + + + | Kellen Briones | ECON | [place] | | | | | [address] | | + + + + + Care Team Providers + +------+ + | Care Heel Shaver Name | Role | Phone | + +------+ + | Barb Marte | THANG | | + +------+ + Encounter Details +--------+ + + + + | Date | Type | Department | Care Team | Description | +--------+ + + + + | 04/09/ | Hospital | [facility] | Monster White MD | Lumbar stenosis with | | 2019 | Encounter | MED CTR XRAY [address] | [address]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 | | | | [place] | [place], | claudication | | | | [place] [address] | [place] [address] | | | | | [phone] | [phone] | | | | | | | [...] puff by mouth | | 0 | / | | | (VENTOLIN HFA) 90 | [...] | | | | | | [place] [address] | | | | | | [phone] | | | | | | | | +--------+---------+ + + + | 07/30/ | Office | Cardiology | Agata Tinajero DO | | | 2019 | Visit | | [address] | | | | | | [place] | | | | | | [address] | | | | | | | [...] | Howard, Rad Results In - 04/09/2019 2:42 PM PST [...]
--- OUTSIDE RECORDS SUMMARY | ~2019-05-12 | XMS | Encounter Summary ---
Demographics + + + | Address | [address] | | | [place] [address] | + + + | Home Phone [...] [place], | | | | | [place] [address] | | + + + + + | Kellen Briones | ECON | [place], [place] | | | | | [address] | | + + + + + Care Team Providers + +------+ + | Care Clinical Review Nurse Name | Role | Phone | + +------+ + | Anna De Guzman PA-C | PCP | | + +------+ + Reason for Visit + + + | Reason | Comments | + + + | Injections | | + + + Encounter Details +--------+ + + + + | Date | Type | Department | Care Team | Description | +--------+ + + + + | 01/07/ | Telephone | [facility] | Tk Ann | Injections | | 2012 | | ORTHOPEDIC SURGERY | MD Jocelin [address] | | | | | [address] [place] [address] | [place], [place] | | | | | [place], [place] | [address] | | | | | [address] | | | | | | [phone] | | | +--------+ + + + [...] | | | | | | [place] [address] | | | | | | [phone] | | | | | | | | +--------+---------+ + + + | 07/30/ | Office | Cardiology | Agata Tinajero DO | | | 2019 | Visit | | [address] | | | | | | [place] | | | | | | [address] | | | | | | | | +--------+---------+ + + + documented as of this encounter Visit Diagnoses Not on filedocumented in this encounter"
--- OUTSIDE RECORDS SUMMARY | ~2019-05-12 | XMS | Encounter Summary ---
Demographics + + + | Address | [address] | | | [place] [address] | + + + | Home Phone [...] | Organization | [facility] | | | and [place] | + + + | Address | Unknown | + + + | Phone | Unavailable | + + + Support + + + + + | Name | Relationship | Address | Phone | + + + + + | Lucy Winchester | ECON | [place], | | | | | [place] [address] | | + + + + + | Kellen Briones | ECON | [place], [place] | | | | | [address] | | + + + + + [...] | +--------+ + + + + | 04/05/ | Telephone | [facility] | Irving Becerril, | Medication Question | | 2015 | | NEUROSURGERY [address] | DO [address] | | | | | [address] [facility] | [address] [place], [place] | | | | | [place], [place] | [id number] | | | | | [address] | | | | | | [phone] | | | +--------+ + + + [...] | 2019 | Visit | | [address] | | | | | | [place] | | | | | [place] [address] | | | | | | [phone] | | | | | | | | +--------+---------+ + + + | 07/30/ | Office | Cardiology | Agata Tinajero DO | | | 2019 | Visit | | [address] | | | | | | [place] | | | | | | [address] | | | | | | | | +--------+---------+ + + + documented as of this encounter Visit Diagnoses Not on filedocumented in this encounter"
--- OUTSIDE RECORDS SUMMARY | ~2019-05-12 | XMS | Encounter Summary ---
Demographics + + + | Address | [address] | | | [place] [address] | + + + | Home Phone | | + + + | Preferred Language | Unknown | + + + | Marital Status | | + + + | Zoroastrian Affiliation | 1041 | + + + | Race | Unknown | + + + | Ethnic Group | Unknown | + + + Author + + + | Author | [facility] | | | and [place] | + + + | Organization | [facility] | | [...] [place], | | | | | [place] [address] | | + + + + + | Kellen Briones | ECON | [place], [place] | | | | | [address] | | + + + + + Care Team Providers + +------+ + | Care Hazmat Cdl A Driver Name | Role | Phone | + [...] | | | claudication | B | [address] | | | | | Procedures | [place], [place] | Phone: | | | | | MRI Lumbar | [address] | [phone] | | | | | Spine wo | Phone: | Fax: | | | | | Contrast | [phone] | [phone] | | | | | | Fax: | | | | | | | [phone] | | +--------+--------+ + + + + Diagnostic/Screening (Routine) +--------+--------+ [...] |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 | DR[address] | [place] | | | | | claudication | B | [address] | | | | | Procedures | [place], [place] | Phone: | | | | | CT Lumbar | [address] | [phone] | | | | | Spine wo | Phone: | Fax: | | | | | Contrast | [phone] | [phone] | | | | | | Fax: | | | | | | | [phone] | | +--------+--------+ + + + + Reason for Visit Evaluate & Treat (Urgent) + +--------+ + + + + | Status | Reason | Specialty | Diagnoses / | Referred By | Referred To | | | | | Procedures | Contact | Contact | + +--------+ + + + + | Authorized | | Orthopedic | Diagnoses | Marte, | Guy [facility] | | | | Surgery | Spinal | NARESH Day | Orthopedic | | | | | stenosis, | [address] | Spine [address] | | | | | lumbar | KATY, | [address] | | | | | region | [address] | [address] | | | | | without | [place], | [place], [place] | | | |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 | [place] [address] | [address] | | | | | claudication | Phone: | Phone: | | | | | lumbar | [phone] | [phone] | | | | | | Fax: | Fax: | | | | | | [phone] | [phone] | + +--------+ + + + + Encounter Details +--------+---------+ + + + | Date | Type | Department | Care Team | Description | +--------+---------+ + + + | 03/19/ | Office | [facility] | Monster White MD | Lumbar stenosis with | | 2019 | Visit | [facility] | [address]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 | | | | ORTHOPEDIC SPINE | [place], | claudication | | | | [address] | [place] [address] | (Primary Dx); | | | | [place] | [phone] | Spondylolisthesis of | | | | [address] | | lumbar region | | | | [phone] | | | +--------+---------+ + + + [...] + + + | Blood Pressure | 139/77 | 03/19/2019 2:23 PM | | | | | PDT | | + + + + + | Pulse | 91 | 03/19/2019 2:23 PM | | | | | PDT [...] + + + + | Weight | 62.1 kg (137 lb) | 03/19/2019 2:23 PM | | | | | PDT | | + + + + + | Height | 160 cm (5' 3") | 03/19/2019 2:23 PM | | | | | PDT | | + + + + + | Body Mass Index | 24.27 | 03/19/2019 2:23 PM | | | | | PDT | | + + + + + documented in this encounter Progress Notes Monster White MD - 03/19/2019 2:30 PM PDTFormatting of this note might be different from t morelia original. Subjective: Chief Complaint: Lower back pain with progressive leg pain and weakness HPI: Location: Low back pain Approximate time symptoms began: 2 years ago. Illness / work injury / accident: Falls Pain description: Pain in lower back. Throbbing, stabbing pain.pain travels to left should er. Pain scale: 10 Precipitating Factors: Standing. Alleviating Factors: Pain medication gives some relief. 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 Employer: [employer] Tobacco Use Smoking status: Never Smoker Smokeless tobacco: Never Used Substance and Sexual Activity Alcohol use: Yes Alcohol/week: 1.2 oz Types: 2 Glasses of wine per week Comment: occasional glass of wine Drug use: No Sexual activity: Not on file Past Medical History: Diagnosis Date Adverse effect [...] reflux disease) Hyperlipidemia Hypertension Lumbar radiculopathy 07/23/2012 [place] (myocardial infarction) (HCC) Neck pain on right side 05/13/2013 Oxygen dependent 2 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 Snoring Spinal stenosis of lumbar region with [id number] level moderately severe 2012 Past Surgical History: Procedure Laterality Date BELPHAROPTOSIS REPAIR 2009 bilateral bone spur left foot BREAST RECONSTRUCTION [id number] About 10 surgeries CARPAL TUNNEL RELEASE Bilateral CERVICAL SPINE SURGERY Anterior 03/30/2016 Procedure: C3-4, C4-5, C5-6, C6-7 Anterior Cervical Discectomy w/ Fusion and Plating; Bryan geon: Irving Becerril, DO; Location: [facility] MAIN OR CORONARY ARTERY BYPASS GRAFT 2009 HYSTERECTOMY, TOTAL ABDOMINAL 1969 MASTECTOMY, RADICAL 1987 Right MOUTH SURGERY 1957 She is edentulous Reconstruction of Left Thumb TONSILLECTOMY AND ADENOIDECTOMY 1946 Current Outpatient Medications: albuterol (VENTOLIN HFA) 90 mcg/puff inhaler, Take 1 puff by mouth as needed., Disp: , Rfl: atorvaSTATin (LIPITOR) 40 mg tablet, Take 40 mg by mouth nightly., Disp: , Rfl: benzonatate (TESSALON) 200 MG capsule, Take 200 mg by mouth as needed., Disp: , Rfl: cyanocobalamin (VITAMIN B-12) 100 MCG TABS, Take by mouth Daily., Disp: , Rfl: DULoxetine (CYMBALTA) [address] capsule, TK ONE C PO QD, Disp: , Rfl: 3 fentaNYL (DURAGESIC) 25 mcg/hr, APPLY 1 PATCH TO THE SKIN Q 3 DAYS, Disp: , Rfl: 0 furosemide (LASIX) 20 mg tablet, Take 20 mg by mouth., Disp: , Rfl: gabapentin (NEURONTIN) 100 mg capsule, Take 100 mg by mouth 2 times daily., Disp: , Rf l: 1 levothyroxine (SYNTHROID) 25 mcg tablet, Take 25 mcg by mouth Daily., Disp: , Rfl: 5 lisinopril (PRINIVIL, ZESTRIL) 20 mg tablet, Take 20 mg by mouth Daily., Disp: , Rfl: 1 magnesium, as oxide, 250 MG tablet, Take 250 mg by mouth Daily., Disp: , Rfl: metFORMIN (GLUCOPHAGE) 500 mg tablet, Take 500 mg by mouth nightly. Takes 1 tab in the morning and 2 tabs at night, Disp: , Rfl: nitroglycerin (NITROSTAT) 0.4 mg SL tablet, Place 0.4 mg under the tongue every 5 rodriguez andrea as needed., Disp: , Rfl: omeprazole (PRILOSEC) 40 MG capsule, Take 40 mg by mouth Daily., Disp: , Rfl: 2 potassium chloride (KLOR-CON) 10 MEQ ER tablet, Take 10 mEq by mouth., Disp: , Rfl: raNITIdine (ZANTAC) 150 mg tablet, Take 150 mg by mouth 2 times daily., Disp: , Rfl: Family History Problem Relation Age of Onset Alcohol abuse Father Heart disease Father Migraines Daughter Other (see comment) Daughter Depression Migraines Son Other (see comment) Son Seizure disorder, snores Cancer Mother Heart disease Mother Hypertension Mother Arthritis Mother Hypertension Daughter COPD Daughter Arthritis Daughter High blood pressure Daughter Other (see comment) Daughter snores Review of Systems Constitutional: Positive for activity change and appetite change. Negative for fatigue, fev er and unexpected weight change. HENT: Positive for trouble swallowing. Negative for congestion, drooling, ear pain, facial swelling, hearing loss, sinus pressure, sinus pain, sore throat and tinnitus. Eyes: Negative for discharge, redness, itching and visual disturbance. Respiratory: Negative for apnea, cough, choking, chest tightness, shortness of breath and w heezing. Cardiovascular: Negative for chest pain, palpitations and leg swelling. Gastrointestinal: Positive for abdominal pain, nausea and vomiting. Negative for abdominal distention, anal bleeding, blood in stool, constipation, diarrhea and rectal pain. Endocrine: Negative for cold intolerance, heat intolerance and polyuria. Genitourinary: Negative for decreased urine volume, difficulty urinating, flank pain, frequ ency, menstrual problem, pelvic pain, urgency and vaginal pain. Musculoskeletal: Positive for myalgias and neck pain. Negative for arthralgias, back pain, gait problem, joint swelling and neck stiffness. Skin: Negative for rash and wound. Allergic/Immunologic: Negative for environmental allergies and food allergies. Neurological: Positive for dizziness, tremors, speech difficulty, weakness, light-headednes s and numbness. Negative for headaches. Hematological: Does not bruise/bleed easily. Psychiatric/Behavioral: Negative for agitation, behavioral problems, confusion, decreased c oncentration, dysphoric mood, hallucinations, sleep disturbance and suicidal ideas. The cintia ent is not nervous/anxious and is not hyperactive. Objective: BP 139/77 | Pulse 91 | Ht 1.6 m (5' 3") | Wt 62.1 kg (137 lb) | BMI 24.27 kg/m PE: PHYSICAL EXAM GENERAL: -Pleasant, no acute distress SKIN: -Normal HEENT: -Normocephalic and atraumatic NECK: -ROM normal, no visible lymph nodes. -Negative Spurling sign -Negative Lhermitte's CHEST: -Symmetric expansion. -Lung normal excursion HEART: -Regular pulse ABDOMEN: -no obvious distension EXTREMITIES: -No edema -2+ pulses -DEBBIE negative -Phalen's test: -Tinel's sign: -Shoulder ROM: NEUROLOGICAL EXAM: MENTAL STATUS: -Alert and oriented x 3 -Normal mood, affect -Speech is fluent CRANIAL NERVES: II: -Pupils are equal, reactive to light III, IV, : -Extraocular movements intact V: -Facial sensation intact VII: -Face symmetrical VIII: -Hearing intact IX, X: -Palate elevates symmetrically, voice nml XI: -SCM normal XII: -Tongue is midline, no fasciculations CEREBELLAR: -normal coordination. STATION/GAIT: -forward biased gait -Heel and toe walking difficult to perform -Normal tandem gait REFLEXES: 2+ symmetric bicep/tricep/brachioradialis., Patellar/achilles. MOTOR EXAM: -No atrophy, fasciculations noted Right Left Deltoids 5 5 Biceps 5 5 Infraspinatus 5 5 Triceps 5 5 Brachioradialis 5 5 Wrist flexors 5 5 Hand intrinsics 5 5 Parking Inspector 5 5 Hip flexors 5 5 Quadriceps 5 5 Hamstrings 5 5 Dorsiflexion 5 5 Extensor hallicus 5 5 Plantarflexion 5 5 SENSORY: -Light touch normal -Pinprick normal SPINE EXAM: - IMAGING: As above. Assessment: 1. Lumbar stenosis with neurogenic claudication 2. Spondylolisthesis of lumbar region Pt with history of L4-5 spondy and multilevel DDD and stenosis. Progressively symptomatic. Will proceed with imaging review and clinical correlation. Plan xr MRI CT L spine. Will f/u with imaging findings vs clinical correlation. No orders of the defined types were placed in this encounter. No orders of the defined types were placed in this encounter. Note: We spent approximately 50 minutes in [id number] time of which greater than 50% was involved in counseling/coordination of care discussing perioperative expectations and stacy ring/contrasting previous and past imaging studies. documented in this encounter Plan of Treatment [...] | | | | | | [place] [address] | | | | | | [phone] | | | | | | | | +--------+---------+ + + + | 07/30/ | Office | Cardiology | Agata Tinajero DO | | | 2019 | Visit | | [address] | | | | | | [place] | | | | | | [address] | | | | | | | [...] | | | + +---------+ + + MRI Lumbar Spine wo Contrast (04/09/2019 1:51 [...] effects the | | right side at L1-[id number] it is severe and bilaterally at L5-S1 [...] + | Lumbar stenosis with neurogenic claudication - Primary Spinal stenosis, lumbar | | region, with neurogenic claudication | + + | Spondylolisthesis of lumbar region Acquired spondylolisthesis | + + documented in this encounter
--- OUTSIDE RECORDS SUMMARY | ~2019-05-12 | XMS | Encounter Summary ---
Demographics + + + | Address | [address] | | | [place] [address] | + + + | Home Phone | | + + + | Preferred Language | Unknown | + + + | Marital Status | | + + + | Faith Affiliation | 1041 | + + + | Race | Unknown | + + + | Ethnic Group | Unknown | + + + Author + + + | Author | [facility] | | | and [place] | + + + | Organization | [facility] | | [...] [place], | | | | | [place] [address] | | + + + + + | Kellen Briones | ECON | [place], [place] | | | | | [address] | | + + + + + Care Team Providers + +------+ + | Care Twister Tender Paper Name | Role | Phone | + [...] | +--------+ + + + + | 08/14/ | Telephone | [facility] | Patrick Gaffney MD [address] | Other | | 2012 | | NEUROLOGY [place] | [facility] | | | | | [address] [facility], | [address] [place], | | | | | [address] [facility] | [place] [address] | | | | | [place] [address] | [phone] | | | | | [phone] | | | +--------+ + + + [...] | | | | | | [place] [address] | | | | | | [phone] | | | | | | | | +--------+---------+ + + + | 07/30/ | Office | Cardiology | Agata Tinajero DO | | | 2019 | Visit | | [address] | | | | | | [place] | | | | | | [address] | | | | | | | | +--------+---------+ + + + documented as of this encounter Visit Diagnoses Not on filedocumented in this encounter"
--- OUTSIDE RECORDS SUMMARY | ~2019-05-12 | XMS | Encounter Summary ---
Demographics + + + | Address | [address] | | | [place] [address] | + + + | Home Phone | | + + + | Preferred Language | Unknown | + + + | Marital Status | | + + + | Methodist Affiliation | 1041 | + + + | Race | Unknown | + + + | Ethnic Group | Unknown | + + + Author + + + | Author | [facility] | | | and [place] | + + + | Organization | [facility] | | | and [place] | + + + | Address | Unknown | + + + | Phone | Unavailable | + + + Support + + + + + | Name | Relationship | Address | Phone | + + + + + | Lucy Winchester | ECON | [place], | | | | | [place] [address] | | + + + + + | Kellen Briones | ECON | [place], [place] | | | | | [address] | | + + + + + Care Team Providers + +------+ + | Care State'S Attorney Name | Role | Phone | + +------+ + | Anna De Guzman PA-C | PCP | | + +------+ + Reason for Visit + + + | Reason | Comments | + + + | Imaging Only | 6M PO xray | + + + Encounter Details +--------+ + + + + | Date | Type | Department | Care Team | Description | +--------+ + + + + | 10/02/ | Telephone | [facility] | Irving Becerril, | Imaging Only (6M PO | | 2016 | | NEUR[address]URGERY [address] | DO [address] | xray ) | | | | [address] | [address] [place], [place] | | | | | [place], [place] | [id number] | | | | | [address] | | | | | | [phone] | | | +--------+ + + + [...] [place] | | | | | | [place] | | | | | [place] [address] | | | | | | [phone] | | | | | | | | +--------+---------+ + + + | 07/30/ | Office | Cardiology | Agata Tinajero DO | | | 2019 | Visit | | [address] | | | | | | [place] | | | | | | [address] | | | | | | | | +--------+---------+ + + + documented as of this encounter Visit Diagnoses Not on filedocumented in this encounter"
--- OUTSIDE RECORDS SUMMARY | ~2019-05-12 | XMS | Encounter Summary ---
Demographics + + + | Address | [address] | | | [place] [address] | + + + | Home Phone | | + + + | Preferred Language | Unknown | + + + | Marital Status | | + + + | Restorationist Affiliation | 1041 | + + + [...] [place], | | | | | [place] [address] | | + + + + + | Kellen Briones | ECON | [place], [place] | | | | | [address] | | + + + + + Care Team Providers + +------+ + | Care Solutions Architect Consultant Name | Role | Phone | + +------+ + | Anna De Guzman PA-C | PCP | | + +------+ + Encounter Details +--------+ + + + + | Date | Type | Department | Care Team | Description | +--------+ + + + + | 05/17/ | Hospital | [facility] | Irving Becerril, | Status post cervical | | 2016 | Encounter | MED CTR XRAY [address] | DO [address] | spinal fusion; | | | | [place] | [address] [place], [place] | Spondylolisthesis of | | | | [place] [address] | [phone] | cervical region | | | | [phone] | | | +--------+ + + + [...] tablets by | 120 | 0 | 05/17/20 | | | HYDROcodone-acetamin | mouth every [...] tablets by | 90 | 3 | 05/17/20 | | | (METHOCARBAMOL) 750 | mouth every 6 hours | tablet | | 16 | 7 | | mg tablet | as needed [...] | | | | | | [place] [address] | | | | | | [phone] | | | | | | | | +--------+---------+ + + + | 07/30/ | Office | Cardiology | Agata Tinajero DO | | | 2019 | Visit | | [address] | | | | | | [place] | | | | | | [id number] | | | | | | | | +--------+---------+ + + + documented as of this encounter Procedures + +--------+ + + + | Procedure Name | Priori | Date/Time | Associated Diagnosis | Comments | | | ty | | | | + +--------+ + + + | XR CERVICAL SPINE 2 | Routin | 05/17/2016 | Status post | Results for this | | OR 3 VIEWS | e | 10:20 AM | cervical spinal | procedure are in the | | | | PST | fusion | results section. | | | | | Spondylolisthesis of | | | | | | cervical region | | + +--------+ + + + documented in this encounter Results XR Cervical Spine 2 or 3 Views (05/17/2016 10:20 AM PST) + + | Specimen | + + | | + + + + + | Narrative | Performed At | + + + | XR CERVICAL SPINE 2 OR 3 VIEWS 05/17/2016 10:20 AM HISTORY: S/P | [facility] | | Cervical fusion. COMPARISON: Multiple priors. FINDINGS: | . [facility] | | Visualized skull base and facial structures demonstrate no acute | [facility] | | findings. Prevertebral soft tissues are normal. Again visualized | - IMAGING | | are hardware for anterior fusion from C3 through C7 with interbody | | | hardware at these levels. The hardware are intact. Mild degenerative | | | changes are seen of the anterior atlantoaxial joint. There is minimal | | | anterolisthesis of C7 over T1. Bone mineralization is normal. The | | | dens is normal. Vertebral body height are preserved with no evidence | | | for compression fractures. Disc height are maintained. Facet joints | | | are intact. Soft tissue structures are unremarkable. Visualized upper | | | chest demonstrates no acute findings. IMPRESSION - Stable | | | anterior fusion from C3 through C7. Dictated and Signed by: Michael | | | MD Sheldon Electronically signed: 05/17/2016 11:27 AM | | + + + + + | Procedure Note | + + | Howard, Rad Results In - 05/17/2016 11:30 AM PST XR CERVICAL SPINE 2 OR 3 VIEWS | | 05/17/2016 10:20 AMHISTORY: S/P Cervical fusion.COMPARISON: Multiple | | priors.FINDINGS:Visualized skull base and facial structures demonstrate no acute | | findings.Prevertebral soft tissues are normal.Again visualized are hardware for anterior | | fusion from C3 through C7 withinterbody hardware at these levels. The hardware are | | intact. Mild degenerativechanges are seen of the anterior atlantoaxial joint. There is | | minimalanterolisthesis of C7 over T1. Bone mineralization is normal. The dens isnormal. | | Vertebral body height are preserved with no evidence for compressionfractures. Disc | | height are maintained. Facet joints are intact. Soft tissuestructures are unremarkable. | | Visualized upper chest demonstrates no acutefindings. IMPRESSION -Stable anterior fusion | | from C3 through C7.Dictated and Signed by: Michael Chung MD Electronically signed: | | 05/17/2016 11:27 AM | |changes are seen of the anterior atlantoaxial joint. There is minimal | |anterolisthesis of C7 over T1. Bone mineralization is normal. The dens is | |normal. Vertebral body height are preserved with no evidence for compression | |fractures. Disc height are maintained. Facet joints are intact. Soft tissue | |structures are unremarkable. Visualized upper chest demonstrates no acute | |findings. | | | |IMPRESSION - | |Stable anterior fusion from C3 through C7. | | | |Dictated and Signed by: Michael Chung MD | | Electronically signed: 05/17/2016 11:27 AM | + + + + + + + | Performing | Address | City/State/Zipcode | Phone Number | | Organization | | | | + + + + + | [facility] | [address] | [place] | [phone] | | [facility] | | [address] | | | - IMAGING | | | | + + + + + documented in this encounter Visit Diagnoses + + | Diagnosis | + + | Status post cervical spinal fusion Arthrodesis status | + + | Spondylolisthesis of cervical region Acquired spondylolisthesis | + + documented in this encounter"
--- OUTSIDE RECORDS SUMMARY | ~2019-05-12 | XMS | Encounter Summary ---
Demographics + + + | Address | [address] | | | [place] [address] | + + + | Home Phone | | + + + | Preferred Language | Unknown | + + + | Marital Status | | + + + | Pentecostalism Affiliation | 1041 | + + + [...] [place], | | | | | [place] [address] | | + + + + + | Kellen Briones | ECON | [place], [place] | | | | | [address] | | + + + + + Care Team Providers + +------+ + | Care Art Display Maker Name | Role | Phone | [...] + + | 04/06/ | Telephone | [facility] | Irving Becerril, | Other (Post op call) | | 2015 | | NEUR[address]UR[address] | DO [address] | | | | | [facility] | [address] [place], [place] | | | | | [place], [place] | [id number] | | | | | [address] | | | | | | [phone] | | | +--------+ + + + [...] | | | | | | [place] [address] | | | | | | [phone] | | | | | | | | +--------+---------+ + + + | 07/30/ | Office | Cardiology | Agata Tinajero DO | | | 2019 | Visit | | [address] | | | | | | [place] | | | | | | [address] | | | | | | | | +--------+---------+ + + + documented as of this encounter Visit Diagnoses Not on filedocumented in this encounter"
--- OUTSIDE RECORDS SUMMARY | ~2019-05-12 | XMS | Encounter Summary ---
Demographics + + + | Address | [address] | | | [place] [address] | + + + | Home Phone | | + + + | Preferred Language | Unknown | + + + | Marital Status | | + + + | Muslim Affiliation | 1041 | + + + [...] [place], | | | | | [place] [address] | | + + + + + | Kellen Briones | ECON | [place], [place] | | | | | [address] | | + + + + + Care Team Providers + +------+ + | Care Recooperer Name | Role | Phone | + [...] | +--------+ + + + + | 05/02/ | Telephone | [facility] | Irving Becerril, | Paperwork | | 2016 | | NEUR[address]UR[address] | DO [address] | | | | | [address] | [address] [place], [place] | | | | | [place], [place] | [id number] | | | | | [address] | | | | | | [phone] | | | +--------+ + + + [...] | | | | | | [place] [address] | | | | | | [phone] | | | | | | | | +--------+---------+ + + + | 07/30/ | Office | Cardiology | Agata Tinajero DO | | | 2019 | Visit | | [address] | | | | | | [place] | | | | | | [address] | | | | | | | | +--------+---------+ + + + documented as of this encounter Visit Diagnoses Not on filedocumented in this encounter"
--- OUTSIDE RECORDS SUMMARY | ~2019-05-12 | XMS | Encounter Summary ---
Demographics + + + | Address | [address] | | | [place] [address] | + + + | Home Phone | | + + + | Preferred Language | Unknown | + + + | Marital Status | | + + + | Yazidi Affiliation | 1041 | + + + | Race | Unknown | + + + | Ethnic Group | Unknown | + + + Author + + + | Author | [facility] | | | and [place] | + + + | Organization | [facility] | | [...] [place], | | | | | [place] [address] | | + + + + + | Kellen Briones | ECON | [place], [place] | | | | | [address] | | + + + + + Care Team Providers + +------+ + | Care Mold Finisher Name | Role | Phone | [...] + | 08/10/ | Refill | [facility] | Irving Becerril, | Medication Refill | | 2016 | | [address] | DO [address] | | | | | [address] [facility] [address] | [address] [place], [place] | | | | | [place], [place] | [id number] | | | | | [address] | | | | | | [phone] | | | +--------+--------+ + + + [...] | | | | | | [place] [address] | | | | | | [phone] | | | | | | | | +--------+---------+ + + + | 07/30/ | Office | Cardiology | Agata Tinajero DO | | | 2019 | Visit | | [address] | | | | | | [place] | | | | | | [address] | | | | | | | | +--------+---------+ + + + documented as of this encounter Visit Diagnoses + + | Diagnosis | + + | S/P cervical spinal fusion - Primary Arthrodesis status | + + documented in this encounter"
--- OUTSIDE RECORDS SUMMARY | ~2019-05-12 | XMS | Encounter Summary ---
Demographics + + + | Address | [address] | | | [place] [address] | + + + | Home Phone | | + + + | Preferred Language | Unknown | + + + | Marital Status | | + + + | Rastafari Affiliation | 1041 | + + + | Race | Unknown | + + + | Ethnic Group | Unknown | + + + Author + + + | Author | [facility] | | | and [place] | + + + | Organization | [facility] | | | and [place] | + + + | Address | Unknown | + + + | Phone | Unavailable | + + + Support + + + + + | Name | Relationship | Address | Phone | + + + + + | Lucy Nunez | ECON | [place], | | | | | [place] [address] | | + + + + + | Kellen Briones | ECON | [place], [place] | | | | | [address] | | + + + + + Care Team Providers + +------+ + | Care Diploma Maker Name | Role | Phone | + +------+ + | Anna De Guzman PA-C | PCP | | + +------+ + Encounter Details +--------+ + + + + | Date | Type | Department | Care Team | Description | +--------+ + + + + | 06/23/ | Hospital | [facility] | Chris Longo MD | | | 2012 - | Encounter | MED CTR XRAY [address] [facility] | | | | | [place] | [place] | | | 06/25/ | | [place] [address] | [address] | | | 2012 | | [phone] | [phone] | | | | | | | [...] | 2019 | Visit | | [address] | | | | | | [place], | | | | | | [place] [address] | | | | | | [phone] | | | | | | | | +--------+---------+ + + + | 07/30/ | Office | Cardiology | Agata Tinajero DO | | | 2019 | Visit | | [address] | | | | | | [place] | | | | | | [address] | | | | | | | | +--------+---------+ + + + documented as of this encounter Procedures + +--------+ + + + | Procedure Name | Priori | Date/Time | Associated Diagnosis | Comments | | | ty | | | | + +--------+ + + + | MRI ANGIOGRAM HEAD | Routin | 06/24/2012 | | Results for this | | WO CONTRAST | e | 9:55 AM | | procedure are in the | | | | PST | | results section. | + +--------+ + + + | MRI BRAIN W WO | Routin | 06/24/2012 | | Results for this | | CONTRAST | e | 9:51 AM | | procedure are in the | | | | PST | | results section. | + +--------+ + + + documented in this encounter Results MRI Angiogram Head wo Contrast (06/24/2012 9:55 AM PST) + + | Specimen | + + | | + + + + + | Narrative | Performed At | + + + | [facility] | [place] | | Department [address], [place] | [facility] | | [ rep [address]] [ rep [facility] | | st zip] Signed | - IMAGING | | | | | Patient Name: PEDRODAXACISCO TALBERTLOCO Hand Physician: | | | CHAP.20 : 1940 Age: 72 Sex: F Unit #: [id number] | | | Exam Date: 06/23/12 Location: [facility] [place] | | | Report #: [id number] Page: | | | %(RAD)RES..mtdd.print.filter("pg") of %(RAD) | | | RES..mtdd.print.filter("tpg") | | | | | | Accession Number: [id number] | | | UNENHANCED MRA HEAD WITH THREE-DIMENSIONAL VASCULAR RECONSTRUCTION, | | | 06/23/2012 CLINICAL HISTORY: 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 COMPARISON: Brain | | | MRI from the same day. TECHNIQUE: Axial unenhanced 3D | | | [id number] MRA images are performed through the [place] | | | and major intracranial vessels. Multiple three-dimensional vascular | | | reconstructions are also performed. FINDINGS: The | | | terminal vertebral and internal carotid arteries, bilateral anterior | | | and posterior inferior cerebellar arteries, bilateral superior | | | cerebellar arteries, and bilateral anterior, middle and posterior | | | cerebral arteries appear widely patent. A patent anterior | | | communicating artery is visible. Posterior communicating arteries | | | are not visualized with confidence. No ellen vascular occlusion, | | | flow-limiting stenosis, aneurysm, or dissection is evident. Tiny | | | low-signal foci in the bilateral centrum semiovale and right putamen | | | correspond with chronic lacunar infarcts described on dedicated | | | brain MRI from the same day. IMPRESSION: 1. | | | NONVISUALIZATION OF THE POSTERIOR COMMUNICATING ARTERIES. | | | OTHERWISE NORMAL MRA HEAD. 2. CHRONIC LACUNAR | | | INFARCTS INVOLVING THE BILATERAL CENTRUM SEMIOVALE AND RIGHT PUTAMEN. | | | Dictated Date/Time: 06/24/2012 09:55 Transcribed | | | Date/Time: 06/24/2012 10:05 Data Operations Director: | | | <<Signature on File>> | | | Papito Garcia | | | MD Augustus06/24/[id number] <Electronically signed by Papito Coffman MD> | | | Papito Coffman MD 06/24/1289 Data Operations Director: | | | [employer] [id number]/13 1005 Chris Longo MD | | | | | + + + + + + + + | Performing | Address | City/State/Zipcode | Phone Number | | Organization | | | | + + + + + | [address] | [address] | [place] | [phone] | | [facility] | | [address] | | | - IMAGING | | | | + + + + + MRI Brain w wo Contrast (06/24/2012 9:51 AM PST) + + | Specimen | + + | | + + + + + | Narrative | Performed At | + + + | [facility] | [place] | | Department [address] [place] | [facility] | | [ rep ct [address]] [ rep ct [facility] | | st zip] Signed | - IMAGING | | | | | Patient Name: CLEMENTINE NUNEZ Physician: | | | CHAP.20 : 1940 Age: 72 Sex: F Unit #: [id number] | | | Exam Date: 06/23/12 Location: [facility] [place] | | | Report #: [id number] Page: | | | %(RAD)RES..mtdd.print.filter("pg") of %(RAD) | | | RES..mtdd.print.filter("tpg") | | | | | | Accession Number: [id number] | | | UNENHANCED AND ENHANCED BRAIN MRI, 06/23/2012 CLINICAL | | | HISTORY: EPISODES OF LEFT FACIAL PARALYSIS AND ALTERED MENTAL | | | STATUS. COMPARISON: MRA head from the same day, head CT | | | 04/16/2012 and 04/02/2012. TECHNIQUE: The following MR | | | sequences of the brain were obtained: 1. Axial and sagittal T1. | | | 2. Axial T2, FLAIR, GRE, DWI, and ADC. 3. Following the | | | uneventful intravenous administration of 5 mL Gadavist, axial and | | | coronal T1 sequences were obtained. FINDINGS: There | | | are patchy regions of T2/FLAIR hyperintensity within the deep cerebral | | | white matter, with additional tiny hyperintense foci noted in the | | | subcortical white matter. There is mild, fairly confluent | | | hyperintensity of the periventricular white matter. Mild, symmetric | | | hyperintensity is present centrally in the chichi also. Few tiny | | | foci isointense to cerebrospinal fluid are noted in the bilateral | | | centrum semiovale and right putamen, and are consistent with sites of | | | chronic lacunar infarction. No abnormal enhancement or diffusion | | | restriction is evident. The ventricles, brainstem and cerebellum | | | are otherwise unremarkable. There is no shift of midline structures, | | | evidence of intracranial hemorrhage, or extraaxial fluid | | | collection/mass. Hyperostosis frontalis is noted. There | | | is mild mucous membrane thickening within the ethmoid and maxillary | | | sinuses. Minimal fluid is present within left sided mastoid air | | | cells. The orbits, sellar region, basilar cisterns, and osseous | | | structures are otherwise unremarkable. Major intracranial vessels | | | and dural sinuses demonstrate evidence of patency and are grossly | | | unremarkable. IMPRESSION: 1. 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 2. 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 Dictated Date/Time: | | | 06/24/2012 09:51 Transcribed Date/Time: 06/24/2012 10:00 | | | Data Operations Director: <<Signature on File>> | | | Papito Avendaño | Jose Coffman MD06/24/12 190 <Electronically signed by Papito Coffman | | | MD> [place] [id number] Data Operations Director: | | | [employer] [id number]/22/13 Brigida Longo MD | | | | | + + + + + + + + | Performing | Address | City/State/Zipcode | Phone Number | | Organization | | | | + + + + + | [address] | [address] | [place] | [phone] | | [facility] | | [address] | | | - IMAGING | | | | + + + + + documented in this encounter Visit Diagnoses Not on filedocumented in this encounter
--- OUTSIDE RECORDS SUMMARY | ~2019-05-12 | XMS | Encounter Summary ---
Demographics + + + | Address | [address] | | | [place] [address] | + + + | Home Phone [...] [place], | | | | | [place] [address] | | + + + + + | Kellen Briones | ECON | [place] | | | | | [address] | | + + + + + Care Team Providers + +------+ + | Care Door Hanger Name | Role | Phone | + +------+ + | Barb Marte | THANG | | + +------+ + Encounter Details +--------+ + + + + | Date | Type | Department | Care Team | Description | +--------+ + + + + | 01/31/ | Hospital | [facility] | Judson Palacios DO | | | 2018 - | Encounter | [facility] | [address] | | | | | [address]LO[address] | | | 02/05/ | | [address] | [place] [address] | | | 2017 | | [place], [place] | [phone] | | | | | [address] | | | | | | [phone] | | | +--------+ + + + [...] + + + | Blood Pressure | 173/83 | 02/05/2018 4:06 PM | | | | | PDT | | + + + + + | Pulse | 74 | 02/05/2018 4:06 PM | | | | | PDT | | + + + + + | Temperature | 36.8 C (98.2 F) | 02/05/2018 4:06 PM | | | | | PDT | | + + + + + | Respiratory Rate | 16 | 02/05/2018 4:06 PM | | | | | PDT | | + + + + + | Oxygen Saturation | - | - | | + + + + + | Inhaled Oxygen | - | - | | | Concentration | | | | + + + + + | Weight | 63.5 kg (140 lb) | 02/05/2018 4:06 PM | | | | | PDT | | + + + + + | Height | 160 cm (5' 3") | 02/05/2018 4:06 PM | | | | | PDT | | + + + + + | Body Mass Index | 24.8 | 02/05/2018 4:06 PM | | | | | PDT | | + + + + + documented in this encounter Discharge Summaries Faisal Briceno MD - 02/05/2018 3:10 PM PDT Discharge Summaries by Faisal Briceno MD at 02/05/181509 Author: Faisal Briceno MD Service: Hospitalist Author Type: Physician Filed: 02/06/18 0884 Date of Service: 02/05/181509 Status: Signed Neck Band Operator: Faisal Briceno MD (Physician) [facility] Service: Hospitalist Discharge Summary Date of Admission: 01/31/2018 Date of Discharge: 02/05/2018, 4 PM Discharge Provider: FAISAL BRICENO MD Treatment Team: Consulting Physician: Patrick Gaffney MD Admitting Provider: Judson Palacios DO Discharge Diagnoses: Principal Problem: Weakness generalized Active Problems: Chronic pain syndrome DM2 (diabetes mellitus, type 2) (HCC) HTN (hypertension) Resolved Problems: Hyponatremia Hypokalemia Acute metabolic encephalopathy Procedures: * No surgery found * Significant Diagnostic Studies: CBC, CMP BRIEF HISTORY OF PRESENTATION AND HOSPITAL COURSE: Clementine Winchester is a 77 y.o. female with past medical history of Stroke, CAD, S/P CABG, DM T ype II, Chronic Back Pain on Opioids who was admitted due to mental status changes and confu aura. She was initially admitted to [facility] from 01/16/2018 till 01/28/2018 d ue to suspicion of acute left MCA stroke. Work up there with MRI was negative while Carotid FDopplers showed less than 50 % stenosis. She was subsequently discharged home but she was r eadmitted due to increasing confusion and mild renal failure with creatinine 1.26. She was e ventually transferred to [facility] for further management. She did not have any focal neurologic deficits but she was Somnolent and had hyperreflexia in her lower extremities. Differential diagnosis included Delirium due to medications, Serotonin Syndrome. Most of her medications like Baclofen, Wellbutrin, Celexa, Baclofen was discontinued and Fentanyl patch was reduced to 25 mcg which helped as her mentation started to improve. She was also weak and deconditi oned for which PT services evaluated and cleared her to discharge home with out patient ther apy. She also had leg wounds which were dressed and cleaned periodically. Her discharge was delayed due to persistently low K which was replaced with oral and IV KCL replacements. She was also kept on IV fluids and Na level also improved. A detailed discussion was done about her condition and need for close monitoring at home with her daughter and she agreed with e plans. Subsequent labs improved with almost resolution of electrolyte disturbance. Patient was feeling much better than previous days and is now discharged to home in a stable condit ion. Allergies Allergen Reactions Adhesive Tape Rash Tizanidine Mental Changes DISCHARGE EXAM Vital Signs: BP 169/77 (BP Location: Left forearm) | Pulse 78 | Temp 98.4 F (36.9 C) (Oral) | Res p 16 | Ht 1.6 m (5' 3") | Wt 63.5 kg (140 lb) | SpO2 96% | BMI 24.80 kg/m Physical Exam Constitutional: Patient is alert and oriented. Appears frail and weak but not in acute dist ress. HEENT: Head: Normocephalic and Atraumatic. Nose: Nose normal. Mouth/Throat: Oropharynx is clear and moist. Eyes: No conjunctiva injection. EOM Intact. PERRLA. No scleral icterus. Neck: Neck supple. No JVD present. No tracheal deviation present. No thyromegaly Cardiovascular: Regular rate and rhythm, no murmur heard and no friction rub. Pulmonary/Chest: Symmetrical chest expansion, no stridor, no wheezes and no rales. Abdominal: Soft, bowel sounds are present, no distension, no ascites. There is no rebound t enderness and no guarding. Musculoskeletal: Moving all limbs, + Weakness and Difficulty in walking. No pedal edema. Neurological: No focal neurologic deficits. + Weakness, No CN deficits. Skin: Skin is warm and dry. Right inner thigh has intact bulla, RLE has multiple ruptured b ullae with scab formation. Psychiatric: No psychosis, No confusion, + Dysphoric but reactive affect and judgment is im proved. DATA Recent Results (from the past 24 hour(s)) POCT glucose Collection Time: 02/04/18 4:50 PM Result Value Ref Range GLUCOSE,POC SCREEN 107 (H) 65 - 99 mg/dL POCT glucose Collection Time: 02/04/18 9:16 PM Result Value Ref Range GLUCOSE,POC SCREEN 95 65 - 99 mg/dL POCT glucose Collection Time: 02/05/18 5:40 AM Result Value Ref Range GLUCOSE,POC SCREEN 95 65 - 99 mg/dL Basic metabolic panel Collection Time: 02/05/18 9:28 AM Result Value Ref Range SODIUM 134 (L) 135 - 145 mmol/L POTASSIUM 3.2 (L) 3.5 - 4.9 mmol/L CHLORIDE 94 (L) 99 - 109 mmol/L CO2 29 23 - 32 mmol/L ANION GAP AGAP 14 5 - 20 mmol/L GLUCOSE 101 (H) 65 - 99 mg/dL BUN 16 8 - 25 mg/dL CREATININE 0.78 0.50 - 1.00 mg/dL BUN/CREAT 21 CALCIUM 9.0 8.5 - 10.5 mg/dL EGFR >60 >60 mL/min/1.73m2 POCT glucose Collection Time: 02/05/18 11:48 AM Result Value Ref Range GLUCOSE,POC SCREEN 122 (H) 65 - 99 mg/dL PLAN Follow up with your primary care physician in one week for a routine evaluation. Low salt, low sugar dysphagia diet for better blood pressure and diabetes control. Take current list of medications including the newer ones as prescribed. Do not take Wellbutrin, Citalopram and Baclofen until you see your primary care physician a nd discuss about medications. Continue to work on dietary modifications and life style modifications. Out Patient Physical and Occupational Therapy to see, evauluate and treat to improve mobili ty and strengths. Out Patient Speech Therapy to evaluate and treat for difficulty in swallowing. Disposition: Home Condition: Stable Code Status: Full Code No discharge procedures on file. Follow up: [facility] Schedule an appointment as soon as possible for a visit in 1 week Medication List START taking these medications aspirin 81 MG chewable tablet QTY: 30 tablet Refills: 1 Take 1 tablet by mouth daily with breakfast. fentaNYL 25 MCG/HR QTY: 10 patch Refills: 0 Commonly known as: DURAGESIC Place 1 patch onto the skin every third day. Replaces: fentaNYL 50 MCG/HR lisinopril 20 MG tablet QTY: 30 tablet Refills: 1 Commonly known as: ZESTRIL Take 1 tablet by mouth daily. CHANGE how you take these medications amLODIPine 10 MG tablet QTY: 30 tablet Refills: 1 Commonly known as: NORVASC Take 1 tablet by mouth daily. What changed: medication strength how much to take gabapentin 100 MG capsule QTY: 60 capsule Refills: 1 Commonly known as: NEURONTIN Take 1 capsule by mouth 2 (two) times daily. What changed: medication strength how much to take CONTINUE taking these medications atorvastatin 40 MG tablet Refills: 0 Commonly known as: LIPITOR benzonatate 200 MG capsule Refills: 0 Commonly known as: TESSALON clopidogrel 75 MG tablet Refills: 0 Commonly known as: PLAVIX FREESTYLE LITE test strip Refills: 2 Generic drug: glucose blood levothyroxine 25 MCG tablet Refills: 0 Commonly known as: SYNTHROID MAGNESIUM PO Refills: 0 metFORMIN 500 MG tablet Refills: 0 Commonly known as: GLUCOPHAGE nitroGLYCERIN 0.4 MG SL tablet Refills: 0 Commonly known as: NITROSTAT omeprazole 40 MG capsule Refills: 2 Commonly known as: PRILOSEC ranitidine 150 MG tablet Refills: 5 Commonly known as: ZANTAC VENTOLIN HFA 108 (90 Base) MCG/ACT inhaler Refills: 2 Generic drug: albuterol You might also be taking other medications not listed above. If you have questions about an y of your other medications, talk to the person who prescribed them or your Primary Care Pro vider. STOP taking these medications baclofen 10 mg tablet Commonly known as: LIORESAL buPROPion 150 MG 24 hr tablet Commonly known as: WELLBUTRIN XL citalopram 20 MG tablet Commonly known as: CeleXA fentaNYL 50 MCG/HR Commonly known as: DURAGESIC Replaced by: fentaNYL 25 MCG/HR hydrochlorothiazide 12.5 MG tablet Commonly known as: HYDRODIURIL Where to Get Your Medications You can get these medications from any pharmacy Bring a paper prescription for each of these medications amLODIPine 10 MG tablet aspirin 81 MG chewable tablet fentaNYL 25 MCG/HR gabapentin 100 MG capsule lisinopril 20 MG tablet Discharge took more than 35 minutes, to include final examination, discussion of admission, and preparation of prescriptions, instructions for on-going care, follow-up and documentati on of discharge summary. FAISAL BRICENO MD 02/05/2018 documented in th is encounter Medications at Time of Discharge + [...] documented as of this encounter Progress Notes Conversion Transaction, Provider Unknown - 02/05/2018 2:18 PM PDTFormatting of this note m ight be different from the original. Case Management by JASON Montaño at 02/05/181417 Author: JASON Montaño Service: (none) Author Type: Wildlife Management Professor Filed: 02/05/181418 Date of Service: 02/05/181417 Status: Signed Neck Band Operator: JASON Montaño (Wildlife Management Professor) Pt's daughter is Lucy and can be reached at: [phone]; [phone] JASON Montaño onver aura Transaction, Provider Unknown - 02/05/2018 2:17 PM PDT Case Management by JASON Montaño at 02/05/181416 Author: JASON Montaño Service: (none) Author Type: Wildlife Management Professor Filed: 02/05/181416 Date of Service: 02/05/181416 Status: Signed Neck Band Operator: JASON Montaño (Wildlife Management Professor) Disposition: Home to [place] Transportation: Daughter Patient and family in agreement with discharge plan Medicare important message (Given or N/A): Given- signed and placed in chart JASON Montaño onver aura Transaction, Provider Unknown - 02/05/2018 6:59 AM PDT Nurse Progress Note by Nila Gonzalez RN at 02/05/18658 Author: Nila Gonzalez RN Service: (none) Author Type: Registered Nurse Filed: 02/05/18701 Date of Service: 02/05/18658 Status: Signed Neck Band Operator: Nila Gonzalez RN (Registered Nurse) End of shift review completed by this RN. Nila Gonzalez RN onver aura Transaction, Provider Unknown - 02/05/2018 6:44 AM PDT Nurse Progress Note by Vonnie Nolasco RN at 02/05/18643 Author: Vonnie Nolasco RN Service: (none) Author Type: Registered Nurse Filed: 02/05/18647 Date of Service: 02/05/18643 Status: Signed Neck Band Operator: Vonnie Nolasco RN (Registered Nurse) Patient A/OX4, afebrile, hydralazine given X1 for systolic BP in 170s. Insulin held X2 for BG 95 & 95. IV occluded, attempted X3 by ED nurse with ultrasound and X1 in foot--no s uccessful attempts, will pass on to day shift to contact PICC. IV zofran held at 0130 and 0 530 due to no access, patient denying nausea at this time. Patient visualized hourly, no acu te changes throughout shift. Vonnie Nolasco RN onver aura Transaction, Provider Unknown - 02/05/2018 2:25 AM PDT Nurse Progress Note by Vonnie Nolasco RN at 02/05/18224 Author: Vonnie Nolasco RN Service: (none) Author Type: Registered Nurse Filed: 02/05/18226 Date of Service: 02/05/18224 Status: Signed Neck Band Operator: Vonnie Nolasco RN (Registered Nurse) IV occluded, 3 attempts made with ultrasound but unsuccessful. Notified MD Hall to change IV zofran to oral, MD requested pedal IV attempts. Vonnie Nolasco RN onver aura Transaction, Provider Unknown - 02/04/2018 6:39 PM PDT Nurse Progress Note by Claribel Kerr RN at 02/04/181838 Author: Claribel Kerr RN Service: (none) Author Type: Registered Nurse Filed: 02/04/181849 Date of Service: 02/04/181838 Status: Signed Neck Band Operator: Claribel Kerr RN (Registered Nurse) Patient afebrile, alert and oriented x4 throughout shift. Potassium 2.9, notified, patie nt given PO and IV replacement. Patient continues to have poor appetite. Speech therapy re-e valuated, no straws, thin liquids ok between meals. BG 114 and 107 this shift, no insulin gi jatin, Metformin started this evening. PRN Hydralazine given x1 this shift. No c/o pain at thi s time. End of shift review completed. Cares and concerns will be passed onto oncoming RN. C aye Kerr RN onver aura Transaction, Provider Unknown - 02/04/2018 4:30 PM PDT Therapy Progress Note by Margo Phillips PT at 02/04/181629 Author: Margo Phillips PT Service: (none) Author Type: Physical Therapist Filed: 02/04/181954 Date of Service: 02/04/181629 Status: Signed Neck Band Operator: Margo Phillips PT (Physical Therapist) PHYSICAL THERAPY TREATMENT NOTE PT Received On: 02/04/18 Reason for Treatment: Deconditioning Requires PT Follow Up: Yes Follow up PT Only?: No Focus for Next Treatment: Stair Training, Family Training/Education (see comment), Patient Education (see comment) Assistance Required: 1 person Plaster Model And Mold Maker Needed: No Recommendations: Home Assist, Prior Setting, Acute ST, Acute OT, OP PT (resume previous OPP T) Equipment Recommended: (none, has SPC and 4ww at baseline) Barriers to Discharge: Cognitive Deficits Impacting Functional [place], Physical Defic its Impacting Functional [place], Self-care Deficits Impacting Functional [place] Recommendation Comments: Limitation for ongoing mobility assessment and stair negotiation t joslyn's date 07/05 nausea. Pt requires further mobility assessment to maximize safe d/c plan. A nticipate home with daughter with 24/12 assist and resume OPPT for balance deficits. Plan Treatment/Interventions: Continue per Primary PT POC Progress: Progressing toward goals PT Frequency: 5-7x/wk, Once per day Summary Comments: Pt received finishing shower with PRODUCTION WEIGHER, agreeable to PT intervention with emphasis for Tinetti assessment revealing pt with ongoing high risk of falling. Pt observed with brit diamondnt attempt to stabilize self with significant reach at bedrail or moveable tray table wit h limited insight into increased safety risk during this method of mobility. Upon plan to pr ogress ambulation and stair training pt with progressively increasing nausea and strong requ est to return to bed for rest with RN aware and medication distributed. Pt demonstrating barbara r safety with intermittent cueing and close supervision for 4ww in room distance prior to na usea, however benefit from ongoing assessment during further PT sessions to ensure safe d/c plan. Pt positioned in supine upon PT departure with call light in reach, bed alarm armed. Precautions Other Precautions: fall precautions Cognition Comments: Ongoing limitations for safety awareness FUNCTIONAL MOBILITY Bed Mobility Supine to Sit: Supervision, Verbal instruction (flat HOB) Scooting : Verbal instruction, Supervision Transfers Sit to/from Stand: Supervision, Verbal instruction Ambulation Weight Bearing Status: WBAT RLE, WBAT LLE Maximal Ambulation Distance (feet): 16ft Total Ambulation Distance (feet): 16ft Ambulation Assistance: Standby assist, Verbal instruction, Minimal assist, Safety concerns (Kerline with no AD) Distance limited by?: Patient's ability (progressive nausea) Pattern: Alternating, Right swing foot passes stance foot, Left swing foot passes stance fo ot, Right step height adequate, Left step height adequate Assistive Device: Walker 4 wheeled BALANCE Balance: Yes Tinetti Performance Oriented Mobility Assessment (CANDIS) Tinetti Assessment Tool: Balance Tasks Sitting balance: Steady, safe Arises: Able, uses arms to help Attempts to arise: Able, requires > 1 attempt Immediate standing balance: Unsteady (swaggers, moves feet, trunk sway) Standing balance: Steady but wide stance and uses cane or other support Nudged: Staggers, grabs, catches self Eyes closed: Unsteady Turning 360 degrees - steps: Discontinuous steps Turning 360 degrees - steadiness: Unsteady (grabs, swaggers) Sitting down: Uses arms or not a smooth motion Balance score:: 6 Tinetti Assessment Tool: Gait Tasks Initiation of gait: No hesitancy Step length & height - right swing foot: Right foot passes left stance foot Step length & height - right foot: Right foot completely clears floor Step length & height - left swing foot: Left foot passes right stance foot Step length & height - left foot: Left foot completely clears floor Step symmetry: Right and left step appear equal Step continuity: Steps appear continuous Path: Mild/moderate deviation or uses walking aid Trunk: Marked sway or uses walking aid Walking stance: Heels almost touching while walking Gait score:: 9 Tinetti Assessment Tool: Total Score Total score (balance + gait):: 15 Interpretation: 25-28 = Patient is not considered at risk for falls 19-24 = Patient is at risk for falls 0 - 19 = Patient is at high risk for falls Static Sitting Balance Static Sitting-Balance Support: Right upper extremity support, Left upper extremity support , Feet supported Static Sitting-Level of Assistance: Modified independent Dynamic Sitting Balance Dynamic Sitting-Balance Support: Feet unsupported, No upper extremity support (donning sock s ) Dynamic Sitting-Balance: Forward lean Sitting Dynamic Level of Assist: Supervision Dynamic Sitting-Comments/Duration: no posterior support required Static Standing Balance Static Standing-Balance Support: Right upper extremity support, Left upper extremity suppor t Static Standing-Level of Assistance: Supervision Static Standing-Comment/Duration: at 4ww Activity Tolerance: Patient limited by fatigue (Limited 2/2 nausea) Nurse Made Aware: GRAYSON ba Safety Devices in Place: Yes Type of Devices: (call light in reach) Restraints Initially in Place: No The patient demonstrated no indication of pain during therapy session, however mobility sultana ited 2/2 nausea with RN aware and providing available meds Education Completed: Education Topics: [x] Rationale for PT [] PT POC [x] DC planning [x] Precautions [] Exercises [x] Bed mobility [x] Transfer training with hand placement [x] Gait training [] Stair training [x] Use of gait belt [] Other Completed with: [x] Patient [] Spouse [] Significant other [] Family [] C aregiver [] Other Completed by: [x] Verbal education [x] Demonstration [] Handout [] Other: Response to Education: [x] Stated Understanding [x] Reinforcement necessary [] Returned demonstration [] Demonstrated understanding [] No evidence of learning [] Refused onver aura Transaction, Provider Unknown - 02/04/2018 4:15 PM PDT Progress Notes by Tala Muro RD at 02/04/18 1615 Author: Tala Muro RD Service: (none) Author Type: Registered Dietitian Filed: 02/04/18 1616 Date of Service: 02/04/18 1615 Status: Signed Neck Band Operator: Tala Muro RD (Registered Dietitian) 02/04/18 1537 Subjective Timepoint Admit Pt c/o Pt triggered for dysphagia. Pt admitted for acute metabolic encephalopathy. Pt repor ts she was throwing up all day yesterday. Daughter was present. Reported by Family Diet Experience Self-selected diet(s) followed Daughter reports pt had poor po intake for the past week, si nce last Saturday. Fluid / Beverage Intake Oral Fluids Amount NTL, ok for thin liquids in between meals. Liquid Meal Replacement or Supplement Daughter reports pt threw up a magic cup. Pt declined Boost GC. Pt willing to try Boost Pudding. Food Intake Amount of Food Pt had 25% of breakfast this morning- felt nauseous. Daughter requested stra wberry milkshake for pt. Notified kitchen. Type of Food / Meals DM Maintenance dysphagia pureed diet Meal / Snack Pattern House meals; 1:1 supervision. Per charting pt had on 02/03: B25%, L0%, D 25%; 02/02: B100%, L5%; 02/01: B0%, L15%, L100%, S30%. Parenteral Nutrition Intake Rate/Solution NS running at 50 ml/hr Nutrition-Focused Physical Findings Digestive System (Mouth to Rectum) POST HOLE DIGGER following. Pt reports she doesn't like the modificat ions on her diet. Anthropometrics Weight change Pt's BMI is 25.6 and pt is 125% of IBW. Most recent wt from 02/03: 64.1 kg. Wt is down 1.4 kg since admit. Per I/O's pt is 1775 ml fluid negative. Continue to monitor wt t rend. Biochemical data, medical tests, and procedures reviewed Biochemical data, medical tests, and procedures reviewed K 2.9 (L)- KCl ordered for one dos e. BG 100 (H)- BG's have been in the 90s-110s. Estimated Energy Needs Total Energy Estimated Needs 9012-8449 kcal/day Method for Estimating Needs 25-30 kcal/kg based on adj BW of 55.6 kg Estimated Protein Needs Total Protein Estimated Needs 67-83 g/day Method for Estimating Needs 1.2-1.5 g/kg based on adj BW of 55.6 kg Recommendations Recommended energy needs Continue diet per POST HOLE DIGGER. Send Boost Pudding TID with meals. Encourag e po intake with protein rich foods. When po intake improves can change supplements to diabe tic if BG levels trend up. Monitor and follow as indicated. Nutritional Risk Nutritional risk High Follow up date 02/07/[address] onver aura Transaction, Provider Unknown - 02/04/2018 2:16 PM PDT Therapy Progress Note by EARNEST Francois-S at 02/04/18 1416 Author: EARNEST Francois-S Service: (none) Author Type: Speech Therapist Filed: 02/04/18 9443 Date of Service: 02/04/18 1416 Status: Attested Neck Band Operator: EARNEST Francois-S (Speech Therapist) Cosigner: Desi Leary MS [facility]-POST HOLE DIGGER at 02/04/18 1516 Attestation signed by Desi Leary MS CCC-POST HOLE DIGGER at 02/04/18 1516 Student therapist educationally participated in therapy session under the supervision of shayne miguel licensed therapist. This note was created by the student therapist and co-signed by the wyatt jimenez therapist. Information in this note may have been obtained from flowsheet charting. T his note is co-signed at the treatment plan/progress note level. The patient approved of shayne miguel student's role in care. BEDSIDE SWALLOW POST HOLE DIGGER Last Visit POST HOLE DIGGER Received On: 02/04/18 Requires POST HOLE DIGGER Follow Up: Yes Recommendations Liquids Consistency Recommendations: [place] thick (Ok for thins between meals) Diet Consistency Recommendation: Pureed Recommendations: Dysphagia treatment, 1:1 supervision, Set up with meals, Check on patients frequently throught out meals Risk for Aspiration: Moderate Compensatory Swallowing Strategies: Upright as possible for all oral intake, Remain upright for 30 minutes after meals, Slow rate presentation, No straws, Small bites/sips, Eat/feed s lowly Recommended Form of Meds: Meds crushed in puree, Meds floated in puree Summary: Pt seen upright in bed for f/u dysphagia treatment with pt's daughter present in r oom. Pt on room air; wearing upper and lower dentures. Trialed DMA textures (peaches/pears), mechanical soft textures (pineapple mixed with peaches/pears) and thin liquid (water) from both straw and cup. Pt demo'd immediate cough 2x with thin liquid from straw and when altern ating mec soft and thin, as well as immediate cough following administration of (dysphagia m echanically altered) DMA and mechanical soft consistencies. Over 10 trials of thin liquid ad ministered via cup sip. No s/sx penetration/aspiration across cup sip trials of thin liquid. Recommend puree and nectar during meals; thin liquids via cup outside of meals; no straws. Recommend pt remain upright at 90 degrees for all PO intake; remain upright after meals. Me ds crushed in puree. ST to f/u to ensure diet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 to me. Now during my eval in patient's room she is awake, alert, smiling, but mostly does not answ er my questions. When I become more insistent she usually falls back to "I don't know." But she could answer some easy questions such as what is her daughter's name. She could follow c leelamandsamira. Events Overnight: 77-year-old female past medical history of prior stroke, CABG, type II diabetes, opioid dependent chronic back pain, originally hospitalized at [facility] A ugust to the due to suspected left MCA stroke, apparent workup included a negative M RI, ultrasound carotid showed less than 50 percent stenosis, she was subsequently discharged home. She then returned back to [facility] on the evening of January 30 with increased co nfusion, according to notes hyperreflexia, increase her renal failure with creatinine 1.26, she was hydrated improved renal function, due to ongoing symptoms [facility] requested josué mcpherson to our facility for further workup. On initial examination no focal deficits noted, though persistent somnolence, hypertonicity hyperreflexia noted in particular the lower extremities, findings are concerning for a poss ible serotonin syndrome, all SSRI medications were held Case discussed with patient's nephew yesterday evening, felt patient had possibly taking ex cessive amount of medications, possibly baclofen recently started. Subsequently much of her medications have been held including Wellbutrin, Celexa, baclofen, fentanyl patch decreased to 25 g. Subsequently the patient has been more awake alert, able to tell me her name, still having some troubles with dates. Patient indicates feeling improved denies any headache no visual c hanges or wears glasses, denies any weakness. Has been afebrile Labile hypertension systolic blood pressure 190s to 100 100s, has required IV labetalol and hydralazine. Scheduled Medications [START ON 02/03/2018] amLODIPine 10 mg Oral Daily atorvastatin 40 mg Oral Nightly clopidogrel 75 mg Oral Daily enoxaparin 40 mg Subcutaneous Q24H fentaNYL 1 patch Transdermal Q72H hydrochlorothiazide 12.5 mg Oral Daily insulin lispro (human) 0-3 Units Subcutaneous Nightly insulin lispro (human) 0-6 Units Subcutaneous TID AC levothyroxine 25 mcg Oral before breakfast lisinopril 5 mg Oral Daily Continuous Infusions dextrose sodium chloride (IV) 75 mL/hr at 02/01/18 2329 PRN Medications acetaminophen OR acetaminophen, dextrose, dextrose, dextrose, glucagon, glucagon, hydrA LAZINE, labetalol, ondansetron OR ondansetron, polyethylene glycol OBJECTIVE Vital Signs: BP (!) 217/88 (BP Location: Left upper arm) | Pulse 75 | Temp 98.1 F (36.7 C) (Oral) | Resp 20 | Ht 1.6 m (5' 3") | Wt 64.5 kg (142 lb 4.8 oz) | SpO2 97% | BMI 25.21 kg/m Temp: [98 F (36.7 C)-98.3 F (36.8 C)] 98.1 F (36.7 C) (02/02 813) BP: (184-221)/(81-105) 217/88 (02/02 813) Heart Rate: [70-80] 75 (02/02 813) Resp: [20-22] 20 (02/02 813) SpO2: [92 %-98 %] 97 % (02/02 813) Weight: [64.5 kg (142 lb 4.8 oz)] 64.5 kg (142 lb 4.8 oz) (02/03 340) Physical Exam Constitutional: She appears well-developed and well-nourished. Awake alert, less somnolent today. Interacting appropriately, following commands Able tell me her name, was able tell me the year though not the date, able tell she lives i [facility] though unable to give me full address , Cooperative, calm HENT: Mouth/Throat: No oropharyngeal exudate. 3 mm pupils bilateral, reactive Eyes: Oral mucosa moist Neck: Neck seems supple Cardiovascular: Normal rate. Pulmonary/Chest: Effort normal. Abdomina/Gl: Soft. Bowel sounds are normal. Neurological: She is alert. No cranial nerve deficit. Investigation Lieutenant strength equal No pronation drift Motor seems grossly intact +3 reflex is bilateral knees No clonus noted Skin: Skin is warm. Blistering a skin lesion noted right ankle, for graphic chart Psychiatric: She has a normal mood and affect. Nursing note and vitals reviewed. DATA CBC: Lab Results Component Value Date WBC 5.00 02/01/2018 RBC 3.87 02/01/2018 HGB 12.5 02/01/2018 HCT 37.1 02/01/2018 MCV 95.9 02/01/2018 MCH 32.3 02/01/2018 MCHC 33.7 02/01/2018 RDW 48.6 02/01/2018 PLT 197 02/01/2018 MPV 8.7 02/01/2018 DIFFTYPE AUTOMATED 02/01/2018 Hepatic Function Panel: Lab Results Component Value Date PROT 6.4 02/01/2018 ALB 3.1 (L) 02/01/2018 BILITOT 0.4 02/01/2018 ALP 73 02/01/2018 AST 14 02/01/2018 ALT 20 02/01/2018 CPK: Lab Results Component Value Date CKTOTAL 66 02/01/2018 U/A: No results found for: COLORU, CLARITYU, MEROPENEM, LEUKOCYTESUR, NITRITE, UROBILINOGE N, UPRO, PHUR, BLOODU, KETONES, BILIRUBINUR, GLUCOSEU, EPIS PROBLEM LIST Principal Problem: Acute metabolic encephalopathy Active Problems: Chronic pain syndrome DM2 (diabetes mellitus, type 2) (HCC) HTN (hypertension) ASSESSMENT & PLAN 1. Acute encephalopathy - Unclear etiology - Recently treated for presumed left MCA stroke; on exam no obvious focal neurologic defic its are noted, increased rigidity noted in particular the lower extremities - Repeat imaging from outside facility findings; MRI without contrast 01/31/18; reviewed; chronic small vessel ischemic changes, no acute infarcts noted, no hemorrhage no mass. - Differential diagnosis of polypharmacy/serotonin syndrome/anticholinergic toxicity/hypert ensive encephalopathy - Confusion, hypertension, muscular rigidity/hypertonicity/increased reflexes, mydri asis - Discontinue baclofen, gabapentin, Celexa, Wellbutrin - Chronic pain on chronic fentanyl patch, has been reduced to 25 g - Neurology consultation obtained/Dr. Gaffney - Currently no obvious acute infections noted; afebrile - No indication for LP - Clinically improving, today more awake interacting more, - PT evaluation 2. Hypertension - Labile hypertension - Currently elevated systolic blood pressures, possibly part of serotonin syndrome? - Gradual decline over the next 72 hours - Increase amlodipine 10 mg, begin lisinopril 5 mg - Prn hydralazine #3. Acute renal failure - Resolved with hydration #4. Deep vein thrombosis prophylaxis - Subcutaneous Lovenox #5. Hypothyroidism - TSH normal, 1.83 - Synthroid 25 mcg Disposition: Code Status: Full Code Sumit Alvarenga MD 02/02/2018 onversion Transact ion, Provider Unknown - 02/02/2018 2:15 AM PDTFormatting of this note might be different fr om the original. Nurse Progress Note by Jessy Jeter RN at 02/02/18214 Author: Jessy Jeter RN Service: (none) Author Type: Registered Nurse Filed: 02/02/18 0636 Date of Service: 02/02/18214 Status: Signed Neck Band Operator: Jessy Jeter RN (Registered Nurse) Patient was up all evening unable to rest alert and oriented x2 disoriented to time and sit uation. Continues to have delayed responses. Systolic BP 190-200's. PRN Labetalol x2 and hyd ralazine given x1. Remaining VSS. Oxygen titrated, patient RA sating 90's. Denies pain. Ambu lating to commode, tolerating well. No other acute changes from previous assessment. Homero irene report to oncoming RN. Nightly audit was completed by this RN. Jessy Jeter RN. onver aura Transaction, Provider Unknown - 02/01/2018 6:41 PM PDT Nurse Progress Note by Jina Nation RN at 02/01/18 0654 Author: Jina Nation RN Service: (none) Author Type: Registered Nurse Filed: 02/01/181900 Date of Service: 02/01/18 1841 Status: Signed Neck Band Operator: Jina Nation RN (Registered Nurse) Patient has been up to the commode several times with one person assist, confusion has been clearing and patient is now A&Ox3. She is able to speak in sentences and is only occasional ly struggling to get words out. SPB has been elevated in the 190's-200's despite PRN labetal ol. Patient has complained of intermittent headache but denies any other pain. She is on 2L NC with oxygen sats in the 90's. No other acute changes from previous assessment. Shift betsy t complete. Jina Nation RN Idalia Darby MS CCC-POST HOLE DIGGER - 02/01/2018 9:40 AM PDTFormatting of this note might be different fr om the original. Therapy Progress Note by Idalia Katz MS CCC-POST HOLE DIGGER at 02/01/18 0940 Author: Idalia Katz MS CCC-POST HOLE DIGGER Service: (none) Author Type: Speech and Language Patho logist Filed: 02/01/18 1001 Date of Service: 02/01/1840 Status: Signed Neck Band Operator: Idalia Katz MS CCC-POST HOLE DIGGER (Speech and Language Pathologist) BEDSIDE SWALLOW POST HOLE DIGGER Last Visit POST HOLE DIGGER Received On: 02/01/18 Requires POST HOLE DIGGER Follow Up: Yes Recommendations Liquids Consistency Recommendations: [place] thick, Sips of thin water ok between meals-wait 30 min Diet Consistency Recommendation: Pureed Recommendations: Dysphagia treatment, 1:1 supervision, Feeding assist Risk for Aspiration: Moderate Compensatory Swallowing Strategies: Upright as possible for all oral intake, Remain upright for 30 minutes after meals, Alternate solids and liquids, No straws, Slow rate presentation , Small bites/sips, Effortful swallow, Eat/feed slowly Recommended Form of Meds: Meds crushed in puree Summary: recommend NT with puree okay with thin water between meals. Pt displays delayed s wallow and increased oral holding time which place her at risk for aspiration. Staff Notified: , RN Plan of Care Treatment Plan: Dysphagia treatment, ST to follow Treatment Frequency: 3-5 x/week Care Duration (Days): 7 Days Swallowing Evaluation: Yes Patient Assessment Behavior/Cognition: Cooperative, Lethargic, Requires cueing Dentition: Doesn't wear dentures, Other (Comment) (d/t sores) Vision: Functional for self-feeding Patient Positioning: Upright in bed Baseline Vocal Quality: Weak Oral Motor Exam Labial ROM: Within Functional Limits Labial Symmetry: Within Functional Limits Labial Strength: Within Functional Limits Lingual ROM: Within Functional Limits Lingual Symmetry: Within Functional Limits Lingual Strength: Within Functional Limits Facial Symmetry: Within Functional Limits Consistencies Consistencies Assessed: Yes Ice Chips Presentation: Spoon Oral Phase: Increased holding time Pharyngeal Phase: No overt signs or symptoms of aspirations, Delayed swallow initiation, De creased laryngeal elevation upon palpation, Spontaneous double swallow Thin Presentation: Cup Oral Phase Thin: Increased hold time (significant holding time) Pharyngeal Phase: No overt signs or symptoms of aspiration, Delayed swallow initiated, Decr eased laryngeal elevation upon palpation, Spontaneous double swallow [place] Presentation: Cup Oral: Within functional limits Pharyngeal Phase: Delayed swallow initiated, Decreased laryngeal elevation upon palpation, No overt signs or symptoms of aspiration, Spontaneous double swallow Puree Presentation: Spoon Oral Phase: Within functional limits, Increased oral holding time Pharyngeal: No overt signs or symptoms of aspiration, Delayed Swallow, Decreased Laryngeal Elevation, Spontaneous double swallow Goals are progressing unless otherwise indicated. Dysphagia Goals Blind Eyeletter Goals: Advanced diet Pt will advanced diet in: One week, New/revised goal Short Term Goals: Tolerate diet upgrade trials Pt will tolerate diet upgrade trials : With 1:1 supervision, New/revised goal Education Completed Education Topics: Dysphagia: Explain results of session, speech-language pathology role, plan of care, most s afe diet and swallow precautions Completed with: [x] Patient [] Spouse [] Significant other [] Family [] Caregiver [] Other Completed by: [x] Verbal education [x] Demonstration [] Handout [] Other: Response to Education: [x] Stated Understanding [x] Reinforcement necessary [] Retur mino demonstration [] Demonstrated understanding [] No evidence of learning [] Refused Bruno Bang MD - 02/01/2018 8:31 AM PDTFormatting of this note might be different from the origin al. Progress Notes by Sumit Alvarenga MD at 02/01/18 8472 Author: Sumit Alvarenga MD Service: Hospitalist Author Type: Physician Filed: 02/01/18 0858 Date of Service: 02/01/18830 Status: Addendum Neck Band Operator: Sumit Alvarenga MD (Physician) Related Notes: Original Note by Sumit Alvarenga MD (Physician) filed at 02/01/1855 [facility] Service: Hospitalist Progress Note Hospital Day: LOS: 1 day Post-Op Day: * No surgery found * SUBJECTIVE Patient Summary: admission H and P Dr. Palacios:"transferred from [facility] in [place] to [facility] today for ongoing confusion of unclear etiology. Originally hospi talized at [facility] 01/26-01/28 due to confusion, aphasia, suspected CVA. Workup included neg MRI, US carotids showing 50% stenosis, unremarkable echo and telemetry. She was evaluate d by PHYSICAL THERAPY/OT/POST HOLE DIGGER and DC'd home. She reportedly was alert, oriented, without bianca r deficits or speech difficulties, and was discharged home. She came back last night 01/30 wi th recurred or ongoing confusion and was admitted again, not oriented, thinking the year was etc but talking, answering questions. Baseline mental status is normal, no known dem entia. Additionally the patient's creatinine elevated somewhat from baseline ~0.8 to 1.2 . S he was hydrated overnight and creatinine improved back to baseline but confusion is ongoing. Case was discussed with our neurologist Dr Gaffney and also hospitalist Dr Victor. They reques rachel LP but this could not be done at [facility]. She was accepted by Dr Victor but patien t arrived late and the patient was signed over to me. Now during my eval in patient's room she is awake, alert, smiling, but mostly does not answ er my questions. When I become more insistent she usually falls back to "I don't know." But she could answer some easy questions such as what is her daughter's name. She could follow c shannon. Events Overnight: 77-year-old female past medical history of prior stroke, CABG, type II diabetes, opioid dependent chronic back pain, originally hospitalized at [facility] A ugust to the due to suspected left MCA stroke, apparent workup included a negative M RI, ultrasound carotid showed less than 50 percent stenosis, she was subsequently discharged home. She then returned back to [facility] on the evening of January 30 with increased co nfusion, according to notes hyperreflexia, increase her renal failure with creatinine 1.26, she was hydrated improved renal function, due to ongoing symptoms [facility] requested josué mcpherson to our facility for further workup. On initial examination no focal deficits noted, though persistent somnolence, hypertonicity hyperreflexia noted in particular the lower extremities, findings are concerning for a poss ible serotonin syndrome A repeat blood work including CBC BMP, CPK, normal, creat 0.8 No family members at bedside to provide any additional history Scheduled Medications amLODIPine 5 mg Oral Daily atorvastatin 40 mg Oral Nightly clopidogrel 75 mg Oral Daily enoxaparin 40 mg Subcutaneous Q24H fentaNYL 1 patch Transdermal Q72H hydrochlorothiazide 12.5 mg Oral Daily levothyroxine 25 mcg Oral before breakfast Continuous Infusions PRN Medications acetaminophen OR acetaminophen, hydrALAZINE, labetalol, ondansetron OR ondansetron, polyethylene glycol OBJECTIVE Vital Signs: BP (!) 204/100 (BP Location: Left upper arm) | Pulse 92 | Temp 97.8 F (36.6 C) (Oral) | Resp 16 | Ht 1.6 m (5' 3") | Wt 65.5 kg (144 lb 8 oz) | SpO2 96% | BMI 25.60 kg/m Temp: [97.8 F (36.6 C)-99.1 F (37.3 C)] 97.8 F (36.6 C) (02/01 813) BP: (192-225)/(88-107) 204/100 (02/01 813) Heart Rate: [79-92] 92 (02/01 813) Resp: [16-22] 16 (02/01 813) SpO2: [96 %-99 %] 96 % (02/01 813) Height: [160 cm (5' 3")] 160 cm (5' 3") (02/01 353) Weight: [65.5 kg (144 lb 8 oz)-70.1 kg (154 lb 8 oz)] 65.5 kg (144 lb 8 oz) (09/01 0018) Physical Exam Constitutional: She appears well-developed and well-nourished. Awake alert, follows basic commands, unable to tell me her name where she is unable to prov stephen any additional history , Cooperative No acute distress HENT: Mouth/Throat: No oropharyngeal exudate. 3 mm pupils bilateral, reactive Eyes: Oral mucosa moist Neck: Neck seems supple Cardiovascular: Normal rate. Pulmonary/Chest: Effort normal. Abdomina/Gl: Soft. Bowel sounds are normal. Neurological: She is alert. No cranial nerve deficit. Investigation Lieutenant strength seems bilateral Rigidity with a passive range of motion in particular the lower extremities, some clonus is noted +4 reflexes bilateral ankles Patient unable to cooperate with full neurologic exam Skin: Skin is warm. Blistering a skin lesion noted right ankle, for graphic chart Psychiatric: She has a normal mood and affect. Nursing note and vitals reviewed. DATA CBC: Lab Results Component Value Date WBC 5.00 02/01/2018 RBC 3.87 02/01/2018 HGB 12.5 02/01/2018 HCT 37.1 02/01/2018 MCV 95.9 02/01/2018 MCH 32.3 02/01/2018 MCHC 33.7 02/01/2018 RDW 48.6 02/01/2018 PLT 197 02/01/2018 MPV 8.7 02/01/2018 DIFFTYPE AUTOMATED 02/01/2018 Hepatic Function Panel: Lab Results Component Value Date PROT 6.4 02/01/2018 ALB 3.1 (L) 02/01/2018 BILITOT 0.4 02/01/2018 ALP 73 02/01/2018 AST 14 02/01/2018 ALT 20 02/01/2018 CPK: Lab Results Component Value Date CKTOTAL 66 02/01/2018 U/A: No results found for: COLORU, CLARITYU, MEROPENEM, LEUKOCYTESUR, NITRITE, UROBILINOGE N, UPRO, PHUR, BLOODU, KETONES, BILIRUBINUR, GLUCOSEU, EPIS PROBLEM LIST Principal Problem: Acute metabolic encephalopathy Active Problems: Chronic pain syndrome DM2 (diabetes mellitus, type 2) (HCC) HTN (hypertension) ASSESSMENT & PLAN 1. Acute encephalopathy - Unclear etiology - Recently treated for a presumed left MCA stroke; on exam no obvious focal neurologic defi cits are noted, increased rigidity noted in particular the lower extremities - Repeat imaging from outside facility findings; MRI without contrast 01/31/18; will try to obtain results - Differential diagnosis of polypharmacy/serotonin syndrome/anticholinergic toxicity - Confusion, hypertension, muscular rigidity/hypertonicity/increased reflexes, mydri asis - Discontinue baclofen, gabapentin, Celexa, Wellbutrin - Chronic pain on chronic fentanyl patch, has been reduced to 25 g - Neurology consultation obtained/Dr. Gaffney notified last night - Currently no obvious acute infections noted; afebrile - We will hold off on LP for now unless neurology recommends 2. Hypertension - Currently elevated systolic blood pressures, possibly part of serotonin syndrome? - Labetalol prn .BP greater than 180 #3. Acute renal failure - Resolved with hydration #4. Deep vein thrombosis prophylaxis - Subcutaneous Lovenox Disposition: Code Status: Full Code Sumit Alvarenga MD 02/01/2018 onversion Transact ion, Provider Unknown - 02/01/2018 4:36 AM PDTFormatting of this note might be different fr om the original. Nurse Progress Note by Jessy Jeter RN at 02/01/18 5931 Author: Jessy Jeter RN Service: (none) Author Type: Registered Nurse Filed: 02/01/18 0652 Date of Service: 02/01/18435 Status: Signed Neck Band Operator: Jessy Jeter RN (Registered Nurse) Patient alert to self. Nods/gestures appropriately at times. Delayed responses and lethargi c. Admission was completed per patient file, patient was unable to complete questioning due to mental status, no family at bedside. Neuro checks completed q4 no changes from initial ne uro. BP elevated 200's systolic. Labetalol given x1. Remaining VSS. Afebrile. Anticipated douglas mbar puncture 02/01/18. No other acute changes. Will pass report to oncoming RN. onver aura Transaction, Provider Unknown - 01/31/2018 10:46 PM PDT Nurse Progress Note by Jessy Jeter RN at 01/31/18 9155 Author: Jessy Jeter RN Service: (none) Author Type: Registered Nurse Filed: 01/31/182250 Date of Service: 01/31/182245 Status: Signed Neck Band Operator: Jessy Jeter RN (Registered Nurse) All oral medications where held this evening, patient is lethargic after dose of and unable to safely complete a bedside swallow. Will attempt bedside swallow when the patient becomes more alert. Jessy Jeter RN onver aura Transaction, Provider Unknown - 01/31/2018 7:57 PM PDT Nurse Progress Note by Keith Bonds RN at 01/31/181956 Author: Keith Bonds RN Service: (none) Author Type: Registered Nurse Filed: 01/31/181958 Date of Service: 01/31/181956 Status: Signed Neck Band Operator: Keith Bonds RN (Registered Nurse) Pt brought to floor by EMS. Pt given 1 mg ativan in route and pt sedated but arousible. Pt transferred to bed. Vitals taken. Dr Victor paged about Pt arrival. Cares and report given to oncoming nurse. docume nted in this encounter Plan of Treatment +--------+---------+ + + + | Date | Type | Specialty | Care Team | Description | +--------+---------+ + + + | 05/14/ | Office | Orthopedic Surgery | Monster White MD | | | 2019 | Visit | | [address] | | | | | | [place] | | | | | | [place] [address] | | | | | | [phone] | | | | | | | | +--------+---------+ + + + | 07/30/ | Office | Cardiology | Agata Tinajero DO | | | 2019 | Visit | | [address] | | | | | | [place] | | | | | | [id number] | | | | | | | | +--------+---------+ + + + documented as of this encounter Procedures + +--------+ + + + | Procedure Name | Priori | Date/Time | Associated Diagnosis | Comments | | | ty | | | | + +--------+ + + + | POC GLUCOSE | Routin | 02/05/2018 | | Results for this | | | e | 11:48 AM | | procedure are in the | | | | PDT | | results section. | + +--------+ + + + | BASIC METABOLIC | Routin | 02/05/2018 | | Results for this | | PANEL | e | 9:28 AM | | procedure are in the | | | | PDT | | results section. | + +--------+ + + + | POC GLUCOSE | Routin | 02/05/2018 | | Results for this | | | e | 5:40 AM | | procedure are in the | | | | PDT | | results section. | + +--------+ + + + | POC GLUCOSE | Routin | 02/04/2018 | | Results for this | | | e | 9:16 PM | | procedure are in the | | | | PDT | | results section. | + +--------+ + + + | POC GLUCOSE | Routin | 02/04/2018 | | Results for this | | | e | 4:50 PM | | procedure are in the | | | | PDT | | results section. | + +--------+ + + + | POC GLUCOSE | Routin | 02/04/2018 | | Results for this | | | e | 12:19 PM | | procedure are in the | | | | PDT | | results section. | + +--------+ + + + | POC GLUCOSE | Routin | 02/04/2018 | | Results for this | | | e | 5:45 AM | | procedure are in the | | | | PDT | | results section. | + +--------+ + + + | CBC NO DIFFERENTIAL | Routin | 02/04/2018 | | Results for this | | | e | 4:42 AM | | procedure are in the | | | | PDT | | results section. | + +--------+ + + + | BASIC METABOLIC | Routin | 02/04/2018 | | Results for this | | PANEL | e | 4:42 AM | | procedure are in the | | | | PDT | | results section. | + +--------+ + + + | POC GLUCOSE | Routin | 02/03/2018 | | Results for this | | | e | 9:27 PM | | procedure are in the | | | | PDT | | results section. | + +--------+ + + + | POC GLUCOSE | Routin | 02/03/2018 | | Results for this | | | e | 5:47 PM | | procedure are in the | | | | PDT | | results section. | + +--------+ + + + | POC GLUCOSE | Routin | 02/03/2018 | | Results for this | | | e | 12:10 PM | | procedure are in the | | | | PDT | | results section. | + +--------+ + + + | POC GLUCOSE | Routin | 02/03/2018 | | Results for this | | | e | 5:51 AM | | procedure are in the | | | | PDT | | results section. | + +--------+ + + + | BASIC METABOLIC | Routin | 02/03/2018 | | Results for this | | PANEL | e | 5:06 AM | | procedure are in the | | | | PDT | | results section. | + +--------+ + + + | POC GLUCOSE | Routin | 02/02/2018 | | Results for this | | | e | 8:18 PM | | procedure are in the | | | | PDT | | results section. | + +--------+ + + + | POC GLUCOSE | Routin | 02/02/2018 | | Results for this | | | e | 5:28 PM | | procedure are in the | | | | PDT | | results section. | + +--------+ + + + | POC GLUCOSE | Routin | 02/02/2018 | | Results for this | | | e | 12:36 PM | | procedure are in the | | | | PDT | | results section. | + +--------+ + + + | POC GLUCOSE | Routin | 02/02/2018 | | Results for this | | | e | 5:59 AM | | procedure are in the | | | | PDT | | results section. | + +--------+ + + + | HEMOGLOBIN A1C | Routin | 02/02/2018 | | Results for this | | | e | 4:52 AM | | procedure are in the | | | | PDT | | results section. | + +--------+ + + + | POC GLUCOSE | Routin | 02/01/2018 | | Results for this | | | e | 9:43 PM | | procedure are in the | | | | PDT | | results section. | + +--------+ + + + | POC GLUCOSE | Routin | 02/01/2018 | | Results for this | | | e | 4:33 PM | | procedure are in the | | | | PDT | | results section. | + +--------+ + + + | POC GLUCOSE | Routin | 02/01/2018 | | Results for this | | | e | 12:51 PM | | procedure are in the | | | | PDT | | results section. | + +--------+ + + + | EXTERNAL LAB: CBC | Routin | 02/01/2018 | | Results for this | | | e | 5:42 AM | | procedure are in the | | | | PDT | | results section. | + +--------+ + + + | TSH | Routin | 02/01/2018 | | Results for this | | | e | 5:42 AM | | procedure are in the | | | | PDT | | results section. | + +--------+ + + + | LACTIC ACID | Routin | 02/01/2018 | | Results for this | | | e | 5:42 AM | | procedure are in the | | | | PDT | | results section. | + +--------+ + + + | CK TOTAL | Routin | 02/01/2018 | | Results for this | | | e | 5:42 AM | | procedure are in the | | | | PDT | | results section. | + +--------+ + + + | COMPREHENSIVE | Routin | 02/01/2018 | | Results for this | | METABOLIC PANEL | e | 5:42 AM | | procedure are in the | | | | PDT | | results section. | + +--------+ + + + documented in this encounter Results POC Glucose (02/05/2018 11:48 AM PDT) + + + + + + | Component | Value | Ref Range | Performed | Pathologist | | | | | At | Signature | + + + + + + | Glucose, | 122 (H)Comment: Testing | 65 - 99 mg/dL | EXTERNAL | | | Fingerstick | performed at [facility];[address] | | LAB | | | | [facility];[place], [place] | | | | | | [address] | | | | + + + + + + + + | Specimen | + + | | + + + +---------+ + + | Performing | Address | City/State/Zipcode | Phone Number | | Organization | | | | + +---------+ + + | EXTERNAL LAB | | | | + +---------+ + + Basic Metabolic Panel (02/05/2018 9:28 AM PDT) + + + + + + | Component | Value | Ref Range | Performed | Pathologist | | | | | At | Signature | + + + + + + | Na | 134 (L) | 135 - 145 | EXTERNAL | | | | | mmol/L | LAB | | + + + + + + | K | 3.2 (L) | 3.5 - 4.9 | EXTERNAL | | | | | mmol/L | LAB | | + + + + + + | Cl | 94 (L) | 99 - 109 mmol/L | EXTERNAL | | | | | | LAB | | + + + + + + | CO2 | 29 | 23 - 32 mmol/L | EXTERNAL | | | | | | LAB | | + + + + + + | Anion Gap | 14 | 5 - 20 mmol/L | EXTERNAL | | | | | | LAB | | + + + + + + | Glucose, | 101 (H) | 65 - 99 mg/dL | EXTERNAL | | | Fasting | | | LAB | | + + + + + + | BUN | 16 | 8 - 25 mg/dL | EXTERNAL | | | | | | LAB | | + + + + + + | Creatinine | 0.78 | 0.50 - 1.00 | EXTERNAL | | | | | mg/dL | LAB | | + + + + + + | BUN/Creatin | 21 | | EXTERNAL | | | ine Ratio | | | LAB | | + + + + + + | Calcium | 9.0 | 8.5 - 10.5 | EXTERNAL | | | | | mg/dL | LAB | | + + + + + + | Estimated | >60Comment: GFR <60: | mL/min/1.73m2 | EXTERNAL | | | GFR | CHRONIC KIDNEY DISEASE, | | LAB | | | | IF FOUND OVER [...] | | | | | performed at [facility] | | | | | | [facility];[place], [place] | | | | | | [address] | | | | + + + + + + + + | Specimen | + + | Blood specimen | | (specimen) | + + + +---------+ + + | Performing | Address | City/State/Zipcode | Phone Number | | Organization | | | | + +---------+ + + | EXTERNAL LAB | | | | + +---------+ + + POC Glucose (02/05/2018 5:40 AM PDT) + + + + + + | Component | Value | Ref Range | Performed | Pathologist | | | | | At | Signature | + + + + + + | Glucose, | 95Comment: Testing | 65 - 99 mg/dL | EXTERNAL | | | Fingerstick | performed at [facility];[address] | | LAB | | | | [address];[place], [place] | | | | | | [address] | | | | + + + + + + + + | Specimen | + + | | + + + +---------+ + + | Performing | Address | City/State/Zipcode | Phone Number | | Organization | | | | + +---------+ + + | EXTERNAL LAB | | | | + +---------+ + + POC Glucose (02/04/2018 9:16 PM PDT) + + + + + + | Component | Value | Ref Range | Performed | Pathologist | | | | | At | Signature | + + + + + + | Glucose, | 95Comment: Testing | 65 - 99 mg/dL | EXTERNAL | | | Fingerstick | performed at [facility];[address] | | LAB | | | | [address];[place], [place] | | | | | | [address] | | | | + + + + + + + + | Specimen | + + | | + + + +---------+ + + | Performing | Address | City/State/Zipcode | Phone Number | | Organization | | | | + +---------+ + + | EXTERNAL LAB | | | | + +---------+ + + POC Glucose (02/04/2018 4:50 PM PDT) + + + + + + | Component | Value | Ref Range | Performed | Pathologist | | | | | At | Signature | + + + + + + | Glucose, | 107 (H)Comment: Testing | 65 - 99 mg/dL | EXTERNAL | | | Fingerstick | performed at [facility];[address] | | LAB | | | | [address];[place], [place] | | | | | | [address] | | | | + + + + + + + + | Specimen | + + | | + + + +---------+ + + | Performing | Address | City/State/Zipcode | Phone Number | | Organization | | | | + +---------+ + + | EXTERNAL LAB | | | | + +---------+ + + POC Glucose (02/04/2018 12:19 PM PDT) + + + + + + | Component | Value | Ref Range | Performed | Pathologist | | | | | At | Signature | + + + + + + | Glucose, | 114 (H)Comment: Testing | 65 - 99 mg/dL | EXTERNAL | | | Fingerstick | performed at [facility];[address] | | LAB | | | | [address];[place], [place] | | | | | | [address] | | | | + + + + + + + + | Specimen | + + | | + + + +---------+ + + | Performing | Address | City/State/Zipcode | Phone Number | | Organization | | | | + +---------+ + + | EXTERNAL LAB | | | | + +---------+ + + POC Glucose (02/04/2018 5:45 AM PDT) + + + + + + | Component | Value | Ref Range | Performed | Pathologist | | | | | At | Signature | + + + + + + | Glucose, | 98Comment: Testing | 65 - 99 mg/dL | EXTERNAL | | | Fingerstick | performed at [facility];[address] | | LAB | | | | [address];[place] | | | | | | [address] | | | | + + + + + + + + | Specimen | + + | | + + + +---------+ + + | Performing | Address | City/State/Zipcode | Phone Number | | Organization | | | | + +---------+ + + | EXTERNAL LAB | | | | + +---------+ + + CBC no Differential (02/04/2018 4:42 AM PDT) + + + + + + | Component | Value | Ref Range | Performed | Pathologist | | | | | At | Signature | + + + + + + | WBC | 8.11 | 3.80 - 11.00 | EXTERNAL | | | | | K/uL | LAB | | + + + + + + | RED CELL | 3.93 | 3.70 - 5.10 | EXTERNAL | | | COUNT | | M/uL | LAB | | + + + + + + | Hgb | 12.8 | 11.3 - 15.5 | EXTERNAL | | | | | g/dL | LAB | | + + + + + + | Hematocrit, | 37.1 | 34.0 - 46.0 % | EXTERNAL | | | POC | | | LAB | | + + + + + + | MCV | 94.5 | 80.0 - 100.0 fl | EXTERNAL | | | | | | LAB | | + + + + + + | MCH | 32.7 | 27.0 - 34.0 pg | EXTERNAL | | | | | | LAB | | + + + + + + | MCHC | 34.6 | 32.0 - 35.5 | EXTERNAL | | | | | g/dL | LAB | | + + + + + + | RDW-CV | 47.7 | 37 - 53 fl | EXTERNAL | | | | | | LAB | | + + + + + + | Platelet | 223 | 150 - 400 K/uL | EXTERNAL | | | Count | | | LAB | | | Plasma | | | | | + + + + + + | MPV | 8.3Comment: Testing | fl | EXTERNAL | | | | performed at [address], [address] | | LAB | | | | [address], | | | | | | [place] [address] | | | | + + + + + + + + | Specimen | + + | | + + + +---------+ + + | Performing | Address | City/State/Zipcode | Phone Number | | Organization | | | | + +---------+ + + | EXTERNAL LAB | | | | + +---------+ + + Basic Metabolic Panel (02/04/2018 4:42 AM PDT) + + + + + + | Component | Value | Ref Range | Performed | Pathologist | | | | | At | Signature | + + + + + + | Na | 133 (L) | 135 - 145 | EXTERNAL | | | | | mmol/L | LAB | | + + + + + + | K | 2.9 (L) | 3.5 - 4.9 | EXTERNAL | | | | | mmol/L | LAB | | + + + + + + | Cl | 94 (L) | 99 - 109 mmol/L | EXTERNAL | | | | | | LAB | | + + + + + + | CO2 | 27 | 23 - 32 mmol/L | EXTERNAL | | | | | | LAB | | + + + + + + | Anion Gap | 15 | 5 - 20 mmol/L | EXTERNAL | | | | | | LAB | | + + + + + + | Glucose, | 100 (H) | 65 - 99 mg/dL | EXTERNAL | | | Fasting | | | LAB | | + + + + + + | BUN | 18 | 8 - 25 mg/dL | EXTERNAL | | | | | | LAB | | + + + + + + | Creatinine | 0.8 | 0.50 - 1.00 | EXTERNAL | | | | | mg/dL | LAB | | + + + + + + | BUN/Creatin | 23 | | EXTERNAL | | | ine Ratio | | | LAB | | + + + + + + | Calcium | 8.5 | 8.5 - 10.5 | EXTERNAL | | | | | mg/dL | LAB | | + + + + + + | Estimated | >60Comment: GFR <60: | mL/min/1.73m2 | EXTERNAL | | | GFR | CHRONIC KIDNEY DISEASE, | | LAB | | | | IF FOUND OVER [...] | | | | | performed at [facility], [address] | | | | | [facility], | | | | | | [place] [address] | | | | + + + + + + + + | Specimen | + + | Blood specimen | | (specimen) | + + + +---------+ + + | Performing | Address | City/State/Zipcode | Phone Number | | Organization | | | | + +---------+ + + | EXTERNAL LAB | | | | + +---------+ + + POC Glucose (02/03/2018 9:27 PM PDT) + + + + + + | Component | Value | Ref Range | Performed | Pathologist | | | | | At | Signature | + + + + + + | Glucose, | 114 (H)Comment: Testing | 65 - 99 mg/dL | EXTERNAL | | | Fingerstick | performed at [facility];[address] | | LAB | | | | [address];[place] | | | | | | [address] | | | | + + + + + + + + | Specimen | + + | | + + + +---------+ + + | Performing | Address | City/State/Zipcode | Phone Number | | Organization | | | | + +---------+ + + | EXTERNAL LAB | | | | + +---------+ + + POC Glucose (02/03/2018 5:47 PM PDT) + + + + + + | Component | Value | Ref Range | Performed | Pathologist | | | | | At | Signature | + + + + + + | Glucose, | 119 (H)Comment: Testing | 65 - 99 mg/dL | EXTERNAL | | | Fingerstick | performed at [facility];[address] | | LAB | | | | [address];[place], [place] | | | | | | [address] | | | | + + + + + + + + | Specimen | + + | | + + + +---------+ + + | Performing | Address | City/State/Zipcode | Phone Number | | Organization | | | | + +---------+ + + | EXTERNAL LAB | | | | + +---------+ + + POC Glucose (02/03/2018 12:10 PM PDT) + + + + + + | Component | Value | Ref Range | Performed | Pathologist | | | | | At | Signature | + + + + + + | Glucose, | 123 (H)Comment: Testing | 65 - 99 mg/dL | EXTERNAL | | | Fingerstick | performed at [facility];[address] | | LAB | | | | [address];[place], [place] | | | | | | [address] | | | | + + + + + + + + | Specimen | + + | | + + + +---------+ + + | Performing | Address | City/State/Zipcode | Phone Number | | Organization | | | | + +---------+ + + | EXTERNAL LAB | | | | + +---------+ + + POC Glucose (02/03/2018 5:51 AM PDT) + + + + + + | Component | Value | Ref Range | Performed | Pathologist | | | | | At | Signature | + + + + + + | Glucose, | 104 (H)Comment: Testing | 65 - 99 mg/dL | EXTERNAL | | | Fingerstick | performed at [facility];[address] | | LAB | | | | [address];[place] | | | | | | [address] | | | | + + + + + + + + | Specimen | + + | | + + + +---------+ + + | Performing | Address | City/State/Zipcode | Phone Number | | Organization | | | | + +---------+ + + | EXTERNAL LAB | | | | + +---------+ + + Basic Metabolic Panel (02/03/2018 5:06 AM PDT) + + + + + + | Component | Value | Ref Range | Performed | Pathologist | | | | | At | Signature | + + + + + + | Na | 133 (L) | 135 - 145 | EXTERNAL | | | | | mmol/L | LAB | | + + + + + + | K | 3.2 (L) | 3.5 - 4.9 | EXTERNAL | | | | | mmol/L | LAB | | + + + + + + | Cl | 99 | 99 - 109 mmol/L | EXTERNAL | | | | | | LAB | | + + + + + + | CO2 | 26 | 23 - 32 mmol/L | EXTERNAL | | | | | | LAB | | + + + + + + | Anion Gap | 11 | 5 - 20 mmol/L | EXTERNAL | | | | | | LAB | | + + + + + + | Glucose, | 91 | 65 - 99 mg/dL | EXTERNAL | | | Fasting | | | LAB | | + + + + + + | BUN | 13 | 8 - 25 mg/dL | EXTERNAL | | | | | | LAB | | + + + + + + | Creatinine | 0.7 | 0.50 - 1.00 | EXTERNAL | | | | | mg/dL | LAB | | + + + + + + | BUN/Creatin | 19 | | EXTERNAL | | | ine Ratio | | | LAB | | + + + + + + | Calcium | 8.4 (L) | 8.5 - 10.5 | EXTERNAL | | | | | mg/dL | LAB | | + + + + + + | Estimated | >60Comment: GFR <60: | mL/min/1.73m2 | EXTERNAL | | | GFR | CHRONIC KIDNEY DISEASE, | | LAB | | | | IF FOUND OVER [...] | | | | | performed at [facility], [address] | | | | | [facility], | | | | | | [place] [address] | | | | + + + + + + + + | Specimen | + + | Blood specimen | | (specimen) | + + + +---------+ + + | Performing | Address | City/State/Zipcode | Phone Number | | Organization | | | | + +---------+ + + | EXTERNAL LAB | | | | + +---------+ + + POC Glucose (02/02/2018 8:18 PM PDT) + + + + + + | Component | Value | Ref Range | Performed | Pathologist | | | | | At | Signature | + + + + + + | Glucose, | 122 (H)Comment: Testing | 65 - 99 mg/dL | EXTERNAL | | | Fingerstick | performed at [facility];[address] | | LAB | | | | [address];[place] | | | | | | [address] | | | | + + + + + + + + | Specimen | + + | | + + + +---------+ + + | Performing | Address | City/State/Zipcode | Phone Number | | Organization | | | | + +---------+ + + | EXTERNAL LAB | | | | + +---------+ + + POC Glucose (02/02/2018 5:28 PM PDT) + + + + + + | Component | Value | Ref Range | Performed | Pathologist | | | | | At | Signature | + + + + + + | Glucose, | 123 (H)Comment: Testing | 65 - 99 mg/dL | EXTERNAL | | | Fingerstick | performed at [facility];[address] | | LAB | | | | [address];[place], [place] | | | | | | [address] | | | | + + + + + + + + | Specimen | + + | | + + + +---------+ + + | Performing | Address | City/State/Zipcode | Phone Number | | Organization | | | | + +---------+ + + | EXTERNAL LAB | | | | + +---------+ + + POC Glucose (02/02/2018 12:36 PM PDT) + + + + + + | Component | Value | Ref Range | Performed | Pathologist | | | | | At | Signature | + + + + + + | Glucose, | 168 (H)Comment: Testing | 65 - 99 mg/dL | EXTERNAL | | | Fingerstick | performed at [facility];[address] | | LAB | | | | [address];[place], [place] | | | | | | [address] | | | | + + + + + + + + | Specimen | + + | | + + + +---------+ + + | Performing | Address | City/State/Zipcode | Phone Number | | Organization | | | | + +---------+ + + | EXTERNAL LAB | | | | + +---------+ + + POC Glucose (02/02/2018 5:59 AM PDT) + + + + + + | Component | Value | Ref Range | Performed | Pathologist | | | | | At | Signature | + + + + + + | Glucose, | 119 (H)Comment: Testing | 65 - 99 mg/dL | EXTERNAL | | | Fingerstick | performed at [facility];[address] | | LAB | | | | [address];[place] | | | | | | [address] | | | | + + + + + + + + | Specimen | + + | | + + + +---------+ + + | Performing | Address | City/State/Zipcode | Phone Number | | Organization | | | | + +---------+ + + | EXTERNAL LAB | | | | + +---------+ + + Hemoglobin A1C (02/02/2018 4:52 AM PDT) + + + + + + | Component | Value | Ref Range | Performed | Pathologist | | | | | At | Signature | + + + + + + | Hemoglobin | 5.4Comment: The [place] | 4.0 - 6.0 % | EXTERNAL | | | A1c | Diabetes Association | | LAB | | | | considers a hemoglobin | | | | | | A1c result of <7.0% to | | | | | | be the goal of diabetic | | | | | | therapy. When results | | | | | | are consistently >8.0%, | | | | | | the ADA suggests | | | | | | reevaluation of the | | | | | | treatment regimen. The | | | | | | testing method used is | | | | | | certified traceable to | | | | | | the Diabetes Control and | | | | | | Complications Trial | | | | | | reference method. | | | | + + + + + + | Glycohemogl | 108Comment: The ADA | mg/dL | EXTERNAL | | | obin | considers an eAG result | | LAB | | | (GHb),Total | of LT 154 mg/dL to be | | | | | | the goal of diabetic | | | | | | therapy. Estimated | | | | | | Average Glucose | | | | | | calculated from | | | | | | hemoglobin A1c by use of | | | | | | the ADA recommended | | | | | | formula.Testing | | | | | | performed at [facility], [address] | | | | | | [facility], | | | | | | [place] [address] | | | | + + + + + + + + | Specimen | + + | Blood specimen | | (specimen) | + + + +---------+ + + | Performing | Address | City/State/Zipcode | Phone Number | | Organization | | | | + +---------+ + + | EXTERNAL LAB | | | | + +---------+ + + POC Glucose (02/01/2018 9:43 PM PDT) + + + + + + | Component | Value | Ref Range | Performed | Pathologist | | | | | At | Signature | + + + + + + | Glucose, | 121 (H)Comment: Testing | 65 - 99 mg/dL | EXTERNAL | | | Fingerstick | performed at [facility];[address] | | LAB | | | | [address];[place], [place] | | | | | | [address] | | | | + + + + + + + + | Specimen | + + | | + + + +---------+ + + | Performing | Address | City/State/Zipcode | Phone Number | | Organization | | | | + +---------+ + + | EXTERNAL LAB | | | | + +---------+ + + POC Glucose (02/01/2018 4:33 PM PDT) + + + + + + | Component | Value | Ref Range | Performed | Pathologist | | | | | At | Signature | + + + + + + | Glucose, | 106 (H)Comment: Testing | 65 - 99 mg/dL | EXTERNAL | | | Fingerstick | performed at [facility];[address] | | LAB | | | | [address];[place], [place] | | | | | | [address] | | | | + + + + + + + + | Specimen | + + | | + + + +---------+ + + | Performing | Address | City/State/Zipcode | Phone Number | | Organization | | | | + +---------+ + + | EXTERNAL LAB | | | | + +---------+ + + POC Glucose (02/01/2018 12:51 PM PDT) + + + + + + | Component | Value | Ref Range | Performed | Pathologist | | | | | At | Signature | + + + + + + | Glucose, | 124 (H)Comment: Testing | 65 - 99 mg/dL | EXTERNAL | | | Fingerstick | performed at [facility];[address] | | LAB | | | | [address];[place], [place] | | | | | | [address] | | | | + + + + + + + + | Specimen | + + | | + + + +---------+ + + | Performing | Address | City/State/Zipcode | Phone Number | | Organization | | | | + +---------+ + + | EXTERNAL LAB | | | | + +---------+ + + External Lab: CANDI (02/01/2018 5:42 AM PDT) + + + + + + | Component | Value | Ref Range | Performed | Pathologist | | | | | At | Signature | + + + + + + | WBC | 5.00 | 3.80 - 11.00 | EXTERNAL | | | | | K/uL | LAB | | + + + + + + | RED CELL | 3.87 | 3.70 - 5.10 | EXTERNAL | | | COUNT | | M/uL | LAB | | + + + + + + | Hgb | 12.5 | 11.3 - 15.5 | EXTERNAL | | | | | g/dL | LAB | | + + + + + + | Hematocrit, | 37.1 | 34.0 - 46.0 % | EXTERNAL | | | POC | | | LAB | | + + + + + + | MCV | 95.9 | 80.0 - 100.0 fl | EXTERNAL | | | | | | LAB | | + + + + + + | MCH | 32.3 | 27.0 - 34.0 pg | EXTERNAL | | | | | | LAB | | + + + + + + | MCHC | 33.7 | 32.0 - 35.5 | EXTERNAL | | | | | g/dL | LAB | | + + + + + + | RDW-CV | 48.6 | 37 - 53 fl | EXTERNAL | | | | | | LAB | | + + + + + + | Platelet | 197 | 150 - 400 K/uL | EXTERNAL | | | Count | | | LAB | | | Plasma | | | | | + + + + + + | MPV | 8.7 | fl | EXTERNAL | | | | | | LAB | | + + + + + + | Differentia | AUTOMATED | | EXTERNAL | | | l Type | | | LAB | | + + + + + + | % Segmented | 61.45 | % | EXTERNAL | | | | | | LAB | | | Neutrophils | | | | | + + + + + + | % | 27.70 | % | EXTERNAL | | | Lymphocytes | | | LAB | | + + + + + + | % Monocytes | 9.60 | % | EXTERNAL | | | | | | LAB | | + + + + + + | % | 0.95 | % | EXTERNAL | | | Eosinophils | | | LAB | | + + + + + + | % Basophils | 0.30 | % | EXTERNAL | | | | | | LAB | | + + + + + + | Absolute | 3.07 | 1.90 - 7.40 | EXTERNAL | | | Segmented | | K/uL | LAB | | | Neutrophils | | | | | + + + + + + | Absolute | 1.39 | 1.00 - 3.90 | EXTERNAL | | | Lymphocytes | | K/uL | LAB | | + + + + + + | Absolute | 0.48 | 0.00 - 0.80 | EXTERNAL | | | Monocytes | | K/uL | LAB | | + + + + + + | Absolute | 0.05 | 0.00 - 0.50 | EXTERNAL | | | Eosinophils | | K/uL | LAB | | + + + + + + | Absolute | 0.02Comment: Testing | 0.00 - 0.10 | EXTERNAL | | | Basophils | performed at [facility], [address] | K/uL | LAB | | | | [address], | | | | | | [place] [address] | | | | + + + + + + + + | Specimen | + + | Blood specimen | | (specimen) | + + + +---------+ + + | Performing | Address | City/State/Zipcode | Phone Number | | Organization | | | | + +---------+ + + | EXTERNAL LAB | | | | + +---------+ + + TSH (02/01/2018 5:42 AM PDT) + + + + + + | Component | Value | Ref Range | Performed | Pathologist | | | | | At | Signature | + + + + + + | TSH | 1.830Comment: Testing | 0.450 - 5.100 | EXTERNAL | | | | performed at [facility], [address] | uIU/mL | LAB | | | | [address], | | | | | | [place] [address] | | | | + + + + + + + + | Specimen | + + | Blood specimen | | (specimen) | + + + +---------+ + + | Performing | Address | City/State/Zipcode | Phone Number | | Organization | | | | + +---------+ + + | EXTERNAL LAB | | | | + +---------+ + + Lactic Acid (02/01/2018 5:42 AM PDT) + + + + + + | Component | Value | Ref Range | Performed | Pathologist | | | | | At | Signature | + + + + + + | Lactate | 1.2Comment: Testing | 0.4 - 2.0 | EXTERNAL | | | | performed at [facility];[address] | mmol/L | LAB | | | | [address];[place], [place] | | | | | | [address] | | | | + + + + + + + + | Specimen | + + | Blood specimen | | (specimen) | + + + +---------+ + + | Performing | Address | City/State/Zipcode | Phone Number | | Organization | | | | + +---------+ + + | EXTERNAL LAB | | | | + +---------+ + + CK Total (02/01/2018 5:42 AM PDT) + + + + + + | Component | Value | Ref Range | Performed | Pathologist | | | | | At | Signature | + + + + + + | CK, Total | 66Comment: Testing | 30 - 240 U/L | EXTERNAL | | | | performed at [facility];[address] | | LAB | | | | [facility];[place], [place] | | | | | | [address] | | | | + + + + + + + + | Specimen | + + | Blood specimen | | (specimen) | + + + +---------+ + + | Performing | Address | City/State/Zipcode | Phone Number | | Organization | | | | + +---------+ + + | EXTERNAL LAB | | | | + +---------+ + + Comprehensive Metabolic Panel (02/01/2018 5:42 AM PDT) + + + + + + | Component | Value | Ref Range | Performed | Pathologist | | | | | At | Signature | + + + + + + | Na | 138 | 135 - 145 | EXTERNAL | | | | | mmol/L | LAB | | + + + + + + | K | 3.6 | 3.5 - 4.9 | EXTERNAL | | | | | mmol/L | LAB | | + + + + + + | Cl | 98 (L) | 99 - 109 mmol/L | EXTERNAL | | | | | | LAB | | + + + + + + | CO2 | 28 | 23 - 32 mmol/L | EXTERNAL | | | | | | LAB | | + + + + + + | Anion Gap | 16 | 5 - 20 mmol/L | EXTERNAL | | | | | | LAB | | + + + + + + | Glucose, | 93 | 65 - 99 mg/dL | EXTERNAL | | | Fasting | | | LAB | | + + + + + + | BUN | 9 | 8 - 25 mg/dL | EXTERNAL | | | | | | LAB | | + + + + + + | Creatinine | 0.8 | 0.50 - 1.00 | EXTERNAL | | | | | mg/dL | LAB | | + + + + + + | BUN/Creatin | 11 | | EXTERNAL | | | ine Ratio | | | LAB | | + + + + + + | Calcium | 8.5 | 8.5 - 10.5 | EXTERNAL | | | | | mg/dL | LAB | | + + + + + + | Protein, | 6.4 | 6.3 - 8.2 g/dL | EXTERNAL | | | Total | | | LAB | | + + + + + + | Albumin | 3.1 (L) | 3.3 - 4.8 g/dL | EXTERNAL | | | | | | LAB | | + + + + + + | Globulin | 3.3 | 1.3 - 4.9 g/dL | EXTERNAL | | | | | | LAB | | + + + + + + | A/G Ratio | 0.9 (L) | 1.0 - 2.4 | EXTERNAL | | | | | | LAB | | + + + + + + | Bilirubin | 0.4 | 0.1 - 1.5 mg/dL | EXTERNAL | | | Total | | | LAB | | + + + + + + | ALP, | 73 | 35 - 115 U/L | EXTERNAL | | | External | | | LAB | | + + + + + + | AST | 14 | 10 - 45 U/L | EXTERNAL | | | | | | LAB | | + + + + + + | ALT | 20 | 10 - 65 U/L | EXTERNAL | | | | | | LAB | | + + + + + + | Estimated | >60Comment: GFR <60: | mL/min/1.73m2 | EXTERNAL | | | GFR | CHRONIC KIDNEY DISEASE, | | LAB | | | | IF FOUND OVER [...] | | | | | performed at [facility], [address] | | | | | | [facility], | | | | | | [place] [address] | | | | + + + + + + + + | Specimen | + + | Blood specimen | | (specimen) | + + + +---------+ + + | Performing | Address | City/State/Zipcode | Phone Number | | Organization | | | | + +---------+ + + | EXTERNAL LAB | | | | + +---------+ + + documented in this encounter Visit Diagnoses Not on filedocumented in this encounter
--- OUTSIDE RECORDS SUMMARY | ~2019-05-12 | XMS | Encounter Summary ---
Demographics + + + | Address | [address] | | | [place] [address] | + + + | Home Phone | | + + + | Preferred Language | Unknown | + + + | Marital Status | | + + + | Orthodoxy Affiliation | 1041 | + + + [...] [place], | | | | | [place] [address] | | + + + + + | Kellen Briones | ECON | [place] | | | | | [address] | | + + + + + Care Team Providers + +------+ + | Care Engine Boss Name | Role | Phone | + +------+ + | Barb Marte | PCP | | + +------+ + Encounter Details +--------+ + + + + | Date | Type | Department | Care Team | Description | +--------+ + + + + | 01/31/ | Hospital | [facility] | Conversion | Diagnosis unknown | | 2018 | Encounter | CONVERSION DEP [address] | Transaction, | | | | | [address] | Provider Unknown | | | | | [place] | [phone] | | | | | [address] | | | | | | [phone] | | | +--------+ + + + [...] | | | | | | [place], | | | | | | [place] [address] | | | | | | [phone] | | | | | | | | +--------+---------+ + + + | 07/30/ | Office | Cardiology | Agata Tinajero DO | | | 2019 | Visit | | [address] | | | | | | [place] | | | | | | [address] | | | | | | | | +--------+---------+ + + + documented as of this encounter Procedures + +--------+ + + + | Procedure Name | Priori | Date/Time | Associated Diagnosis | Comments | | | ty | | | | + +--------+ + + + | VAS CAROTID DUPLEX | Routin | 01/26/2018 | | Results for this | | BILATERAL | e | 5:34 PM | | procedure are in the | | | | PDT | | results section. | + +--------+ + + + documented in this encounter Results VAS Carotid Duplex Bilateral (01/26/2018 5:34 PM PDT) + + | Specimen | [...]
--- OUTSIDE RECORDS SUMMARY | ~2019-05-12 | XMS | Encounter Summary ---
Demographics + + + | Address | [address] | | | [place] [address] | + + + | Home Phone [...] [place], | | | | | [place] [address] | | + + + + + | Kellen Briones | ECON | [place], [place] | | | | | [address] | | + + + + + Care Team Providers + +------+ + | Care Batch Roller Operator Name | Role | Phone | [...] | | | claudication | B | [address] | | | | | Procedures | [place], [place] | Phone: | | | | | CT Lumbar | [address] | [phone] | | | | | Spine wo | Phone: | Fax: | | | | | Contrast | [phone] | [phone] | | | | | | Fax: | | | | | | | [phone] | | +--------+--------+ + + + + Encounter Details +--------+ + + + + | Date | Type | Department | Care Team | Description | +--------+ + + + + | 04/09/ | Hospital | [facility] | Monster White MD | | | 2019 | Encounter | MED CTR [address] | [address] | | | | | [place], | [place], | | | | | [place] [address] | [place] [address] | | | | | [phone] | [phone] | | | | | | | [...] | | | | | [place] [address] | | | | | | [phone] | | | | | | | | +--------+---------+ + + + | 07/30/ | Office | Cardiology | Agata Tinajero DO | | | 2019 | Visit | | [address] | | | | | | [place] | | | | | | [address] | | | | | | | [...]
--- OUTSIDE RECORDS SUMMARY | ~2019-05-12 | XMS | Encounter Summary ---
Demographics + + + | Address | [address] | | | [place] [address] | + + + | Home Phone | | + + + | Preferred Language | Unknown | + + + | Marital Status | | + + + | Confucianism Affiliation | 1041 | + + + | Race | Unknown | + + + | Ethnic Group | Unknown | + + + Author + + + | Author | [facility] | | | and [place] | + + + | Organization | [facility] | [...] [place], | | | | | [place] [address] | | + + + + + | Kellen Briones | ECON | [place] | | | | | [address] | | + + + + + Care Team Providers + +------+ + | Care Flasher Adjuster Name | Role | Phone | + +------+ + | Barb Marte | THANG | | + +------+ + Encounter Details +--------+ + + + + | Date | Type | Department | Care Team | Description | +--------+ + + + + | 03/05/ | Hospital | [facility] | Barb Marte PA | Abnormal mammogram | | 2018 | Encounter | MED CTR ULTRASOUND | [address] | | | | | [address] [place] | [address] [place] | | | | | [place] | [address] | | | | | [address] | | | | | | [phone] | | | +--------+ + + + [...] | | | | | | [place] [address] | | | | | | [phone] | | | | | | | | +--------+---------+ + + + | 07/30/ | Office | Cardiology | Agata Tinajero DO | | | 2019 | Visit | | [address] | | | | | | [place] | | | | | | [address] | | | | | | | | +--------+---------+ + + + documented as of this encounter Procedures + +--------+ + + + | Procedure Name | Priori | Date/Time | Associated Diagnosis | Comments | | | ty | | | | + +--------+ + + + | US BREAST LIMITED | Routin | 03/05/2018 | Abnormal mammogram | Results for this | | LEFT | e | 11:30 AM | | procedure are in the | | | | PDT | | results section. | + +--------+ + + + documented in this encounter Results US Breast Limited Left (03/05/2018 11:30 AM PDT) + + | Specimen | + + | | + + + + + | Narrative | Performed At | + + + | EXAM: RACHEL TOMOSYN DIAGNOSTIC LEFT, US BREAST LIMITED LEFT dated | [facility] | | 03/05/2018 10:52 AM HISTORY: Diagnostic breast imaging. ABNORMAL | | | LEFT BREAST MAMMOGRAM TECHNIQUE: Left breast CC and MLO spot | | | compression with marcos synthesis. Left breast MLO and ML with marcos | | | synthesis. Limited left breast ultrasound. COMPARISON: | | | Mammograms dating back to 2010. MAMMOGRAM: The finding identified | | | on the screening mammogram is better visualized today. It is | | | well-circumscribed isodense nodule. It has a morphology of a lymph | | | node. There are faint internal calcifications. It is very deep | | | and somewhat centrally located in the breast. ULTRASOUND: | | | Extensive ultrasound imaging was performed of the left breast. No | | | definite identified finding to correlate with the mammographic | | | abnormality. IMPRESSION - BI-RADS CATEGORY 3: PROBABLE BENIGN | | | FINDINGS. The finding is only seen mammographically. It has | | | nonaggressive features. It is felt to have been partially | | | visualized on an MLO from 2012. RECOMMENDATION: The patient should | | | return in approximately 6 months for repeat diagnostic mammography | | | of the left breast to document stability. I discussed the findings | | | and recommendations with the patient following completion of the | | | exam. Dictated and Signed by: Santino Jewell MD | | | Electronically signed: 03/05/2018 1:25 PM | | + + + + + | Procedure Note | + + | Howard, Rad Results In - 03/05/2018 4:16 PM PDT EXAM: RACHEL TOMOSYN DIAGNOSTIC LEFT, US | | BREAST LIMITED LEFT dated 03/05/2018 10:52AMHISTORY: Diagnostic breast imaging. ABNORMAL | | LEFT BREAST MAMMOGRAMTECHNIQUE: Left breast CC and MLO spot compression with marcos | | synthesis. Leftbreast MLO and ML with marcos synthesis. Limited left breast | | ultrasound.COMPARISON: Mammograms dating back to 2010.MAMMOGRAM: The finding identified | | on the screening mammogram is bettervisualized today. It is well-circumscribed isodense | | nodule. It has amorphology of a lymph node. There are faint internal calcifications. | | It isvery deep and somewhat centrally located in the breast.ULTRASOUND: Extensive | | ultrasound imaging was performed of the left breast. Nodefinite identified finding to | | correlate with the mammographic abnormality.IMPRESSION -BI-RADS CATEGORY 3: PROBABLE | | BENIGN FINDINGS. The finding is only seenmammographically. It has nonaggressive | | features. It is felt to have beenpartially visualized on an MLO from | | 2012.RECOMMENDATION: The patient should return in approximately 6 months for | | repeatdiagnostic mammography of the left breast to document stability. I discussedthe | | findings and recommendations with the patient following completion of theexam.Dictated | | and Signed by: Santino Jewell MD Electronically signed: 03/05/2018 1:25 PM | |definite identified finding to correlate with the mammographic abnormality. | | | |IMPRESSION - | | | |BI-RADS CATEGORY 3: PROBABLE BENIGN FINDINGS. The finding is only seen | |mammographically. It has nonaggressive features. It is felt to have been | |partially visualized on an MLO from 2012. | | | |RECOMMENDATION: The patient should return in approximately 6 months for repeat | |diagnostic mammography of the left breast to document stability. I discussed | |the findings and recommendations with the patient following completion of the | |exam. | | | |Dictated and Signed by: Santino Jewell MD | | Electronically signed: 03/05/2018 1:25 PM | + + + +---------+ + + | Performing | Address | City/State/Zipcode | Phone Number | | Organization | | | | + +---------+ + + | [facility] | | | | + +---------+ + + documented in this encounter Visit Diagnoses + + | Diagnosis | + + | Abnormal mammogram Abnormal mammogram, unspecified | + + documented in this encounter"
--- OUTSIDE RECORDS SUMMARY | ~2019-05-12 | XMS | Encounter Summary ---
Demographics + + + | Address | [address] | | | [place] [address] | + + + | Home Phone [...] [place], | | | | | [place] [address] | | + + + + + | Kellen Briones | ECON | [place], [place] | | | | | [address] | | + + + + + Care Team Providers + +------+ + | Care Education Intern Name | Role | Phone | + +------+ + | Anna De Guzman PA-C | PCP | | + +------+ + Encounter Details +--------+ + + + + | Date | Type | Department | Care Team | Description | +--------+ + + + + | 03/07/ | Hospital | [facility] | Irving Becerril, | | | 2016 | Encounter | MED CTR LABORATORY | DO [address] | | | | | [address] [facility] | [address] [place], [place] | | | | | [place], [place] | [address] | | | | | [address] | | | | | | [phone] | | | +--------+ + + + [...] + + +---------+ + + | aspirin 325 mg | Take 325 mg by mouth | | 0 | | | | tablet | Daily. | | | | 6 | + + + +---------+ + + [...] PO ONCE D | | 9 | 10/10/20 | | | (ZOCOR) 40 mg tablet [...] | | | | | | [place] [address] | | | | | | [phone] | | | | | | | | +--------+---------+ + + + | 07/30/ | Office | Cardiology | Agata Tinajero DO | | | 2019 | Visit | | [address] | | | | | | [place] | | | | | | [address] | | | | | | | | +--------+---------+ + + + documented as of this encounter Visit Diagnoses Not on filedocumented in this encounter"
--- OUTSIDE RECORDS SUMMARY | ~2019-05-12 | XMS | Encounter Summary ---
Demographics + + + | Address | [address] | | | [place] [address] | + + + | Home Phone | | + + + | Preferred Language | Unknown | + + + | Marital Status | | + + + | Scientology Affiliation | 1041 | + + + [...] [place], | | | | | [place] [address] | | + + + + + | Kellen Briones | ECON | [place] | | | | | [address] | | + + + + + Care Team Providers + +------+ + | Care Procedures Tech Name | Role | Phone | + +------+ + | Barb Marte | PCP | | + +------+ + Encounter Details +--------+ + + + + | Date | Type | Department | Care Team | Description | +--------+ + + + + | 01/31/ | Hospital | [facility] | Conversion | Diagnosis unknown | | 2018 | Encounter | CONVERSION [address] | Transaction, | | | | | [address] | Provider Unknown | | | | | [place] | [phone] | | | | | [address] | | | | | | [phone] | | | +--------+ + + + [...] | | | | | | [place] [address] | | | | | | [phone] | | | | | | | | +--------+---------+ + + + | 07/30/ | Office | Cardiology | Agata Tinajero DO | | | 2019 | Visit | | [address] | | | | | | [place] | | | | | | [address] | | | | | | | [...]
--- OUTSIDE RECORDS SUMMARY | ~2019-05-12 | XMS | Encounter Summary ---
Demographics + + + | Address | [address] | | | [place] [address] | + + + | Home Phone [...] [place], | | | | | [place] [address] | | + + + + + | Kellen Briones | ECON | [place], [place] | | | | | [address] | | + + + + + Care Team Providers + +------+ + | Care Trucking Supervisor Name | Role | Phone | [...] Description | +--------+--------+ + + + | 05/09/ | Refill | [facility] | Chavo Jacob, | Medication Refill | | 2015 | | NEUR[address]URGERY [address] | PA-C [address] | | | | | [address] | [address] [facility] | | | | | [place], [place] | [place] [address] | | | | | [address] | [phone] | | | | | [phone] | | | +--------+--------+ + + + [...] | | | | | | [place] [address] | | | | | | [phone] | | | | | | | | +--------+---------+ + + + | 07/30/ | Office | Cardiology | Agata Tinajero DO | | | 2019 | Visit | | [address] | | | | | | [place] | | | | | | [address] | | | | | | | | +--------+---------+ + + + documented as of this encounter Visit Diagnoses Not on filedocumented in this encounter"
--- OUTSIDE RECORDS SUMMARY | ~2019-05-12 | XMS | Encounter Summary ---
Demographics + + + | Address | [address] | | | [place] [address] | + + + | Home Phone | | + + + | Preferred Language | Unknown | + + + | Marital Status | | + + + | Restorationist Affiliation | 1041 | + + + | Race | Unknown | + + + | Ethnic Group | Unknown | + + + Author + + + | Author | [facility] | | | and [place] | + + + | Organization | [facility] | | [...] [place], | | | | | [place] [address] | | + + + + + | Kellen Briones | ECON | [place], [place] | | | | | [address] | | + + + + + Care Team Providers + +------+ + | Care Supervisor Aluminum Boat Assembly Name | Role | Phone | + +------+ + | Anna De Guzman PA-C | PCP | | + +------+ + Encounter Details +--------+ + + + + | Date | Type | Department | Care Team | Description | +--------+ + + + + | 03/05/ | Hospital | [facility] | IsakkaydenkaileeTk mathis | | | 2012 | Encounter | MED CTR XRAY [address] | T, [address] | | | | | [place] | [place], [place] | | | | | [place] [address] | [address] | | | | | [phone] | | | +--------+ + + + [...] | | | | | | [place] [address] | | | | | | [phone] | | | | | | | | +--------+---------+ + + + | 07/30/ | Office | Cardiology | Agata Tinajero DO | | | 2019 | Visit | | [address] | | | | | | [place] | | | | | | [address] | | | | | | | | +--------+---------+ + + + documented as of this encounter Visit Diagnoses Not on filedocumented in this encounter"
--- OUTSIDE RECORDS SUMMARY | ~2019-05-12 | XMS | Encounter Summary ---
Demographics + + + | Address | [address] | | | [place] [address] | + + + | Home Phone | | + + + | Preferred Language | Unknown | + + + | Marital Status | | + + + | Caodaism Affiliation | 1041 | + + + | Race | Unknown | + + + | Ethnic Group | Unknown | + + + Author + + + | Author | [facility] | | | and [place] | + + + | Organization | [facility] | | | and [place] | + + + | Address | Unknown | + + + | Phone | Unavailable | + + + Support + + + + + | Name | Relationship | Address | Phone | + + + + + | Lucy Winchester | ECON | [place], | | | | | [place] [address] | | + + + + + | Kellen Briones | ECON | [place], [place] | | | | | [address] | | + + + + + Care Team Providers + +------+ + | Care Car Head Liner Installer Name | Role | Phone | + [...] + | 05/31/ | Refill | [facility] | Irving Becerril, | Medication Refill | | 2015 | | NEUR[address]UR[address] | DO [address] | | | | | [address] | [address] [place], [place] | | | | | [place], [place] | [id number] | | | | | [address] | | | | | | [phone] | | | +--------+--------+ + + + [...] | | | | | | [place] [address] | | | | | | [phone] | | | | | | | | +--------+---------+ + + + | 07/30/ | Office | Cardiology | Agata Tinajero DO | | | 2019 | Visit | | [address] | | | | | | [place] | | | | | | [address] | | | | | | | | +--------+---------+ + + + documented as of this encounter Visit Diagnoses + + | Diagnosis | + + | S/P cervical spinal fusion - Primary Arthrodesis status | + + documented in this encounter"
--- OUTSIDE RECORDS SUMMARY | ~2019-05-12 | XMS | Encounter Summary ---
Demographics + + + | Address | [address] | | | [place] [address] | + + + | Home Phone [...] | Author | [facility] | | | and [place] | + [...] [place], | | | | | [place] [address] | | + + + + + | Kellen Briones | ECON | [place], [place] | | | | | [address] | | + + + + + Care Team Providers + +------+ + | Care Painter Foreman Name | Role | Phone | + [...] Thoracic or | [place], | [address] | | | | | lumbosacral | Tk Monreal MD | [place], | | | | | neuritis or | [address] | [place] | | | | | | ST [place] | [address] | | | | | radiculitis, | [place], [place] | Phone: | | | | | unspecified | [address] | [phone] | | | | | Procedures | Phone: | Fax: | | | | | [place] INJECT | [phone] | [phone] | | | | | ANES/STEROID | Fax: | | | | | | [place] | [phone] | | | | | | LUMBAR/SACRA | | | | | | | L W IMG | | | | | | | GUIDE ,1 | | | | | | | L[place]EL [place] | | | | | | | [...] + + | 02/22/ | Hospital | [facility] | [place], | Spinal stenosis of | | 2014 | Encounter | MED CTR XRAY [address] | [address] [address] | lumbar region with | | | | [place] | [facility], | [id number] | | | | [place] [address] | [place] [address] | level moderately | | | | [phone] | [phone] | severe; | | | | | | Spondylolisthesis of | | | | | Oil Well Fishing Tool TechnicianCandace | lumbar region; | | | | [...] | | 2020 | Visit | | [address] | | | | | | [place], | | | | | | [place] [address] | | | | | | [phone] | | | | | | | | +--------+---------+ + + + | 07/30/ | Office | Cardiology | Lior DO Agata | | | 2020 | Visit | | [address] | | | | | | [address] [place] [address] | | | | | | [address] | | | | | | | [...] | | TRANSFORAMINAL | | PDT | [id number] | results section. | | | | [...] 02/22/2015 Bilateral Transforaminal Epidural Steroid Injections | LUIS MANUELNCE | | Diagnosis: Lumbar radiculopathy ICD-9 Code 724.4 Clementine Phoenix | [facility] | | Annabella presents to the fluoroscopy suite for fluoroscopically-guided | [facility] | | bilateral L5-S1 transforaminal epidural [...] + | Performing | Address | City/State/Unm Hospitalcode | Phone Number | | Organization | | | | + + + + + | [facility] | [address] | [place] | [phone] | | [facility] | | [address] | | | - IMAGING | | | | + + + + + documented in this encounter Visit Diagnoses + + | Diagnosis | + + | Spinal stenosis of lumbar region with rxquncgbeqsfp-F7-Q5 level moderately severe | | Spinal stenosis, [...]
--- OUTSIDE RECORDS SUMMARY | ~2019-05-12 | XMS | Encounter Summary ---
Demographics + + + | Address | [address] | | | [place] [address] | + + + | Home Phone | | + + + | Preferred Language | Unknown | + + + | Marital Status | | + + + | Buddhism Affiliation | 1041 | + + + | Race | Unknown | + + + | Ethnic Group | Unknown | + + + Author + + + | Author | [facility] | | | and [place] | + + + | Organization | [facility] | | | and [place] | + + + | Address | Unknown | + + + | Phone | Unavailable | + + + Support + + + + + | Name | Relationship | Address | Phone | + + + + + | Lucy Winchester | ECON | [place], | | | | | [place] [address] | | + + + + + | Kellen Briones | ECON | [place], [place] | | | | | [address] | | + + + + + Care Team Providers + +------+ + | Care Portfolio Manager Name | Role | Phone | [...] + + | 10/18/ | Office | [facility] | [place], | Cervical stenosis of | | 2016 | Visit | PHYSIATRY [address] | [address] | spinal canal | | | | [place], | [facility], | (Primary Dx); | | | | [place] [address] | [place] [address] | Spondylolisthesis of | | | | [phone] | [phone] | cervical region; | | | | | | 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; | | | | | | Lumbar | | | | | | radiculopathy; | | | | | | Spinal stenosis of | | | | | | lumbar region with | | | | | | oqgvdkdvzwxnf-H1-E6 | | | | | | level [...] of the procedure you must provide a horse and wagon driver to take you home. For all [...] and narcotic medications use; she currently uses [place], Flexeril and ga bapentin. Patient's medications, allergies, [...] has no apparent deficits with short or skilled nursing memory. She has appropriate fund of knowledge [...] 5. Spinal stenosis of lumbar region with smqdcwioituzh-Z2-P2 level moderately severe 6. Facet arthritis of [...] | 2019 | Visit | | [address] | | | | | | [place], | | | | | | [place] [address] | | | | | | [phone] | | | | | | | | +--------+---------+ + + + | 07/30/ | Office | Cardiology | Agata Tinajero DO | | | 2020 | Visit | | [address] | | | | | | [address], [place] | | | | | | [address] | | | | | | | [...] Arthritis ICD-10 Code M43.12 Clementine Winchester | [facility] | | presents to the fluoroscopy suite for fluoroscopically-guided | [facility] | | bilateral right C3, C4 [...] ST. | [address] | [place] | [phone] | | [facility] | | [address] | | | - IMAGING | | [...] Lumbar radiculopathy ICD-10 Code M54.16 Clementine | [facility] | | Lizett Winchester presents to the fluoroscopy suite for [facility] | | fluoroscopically-guided bilateral L5-S1 transforaminal epidural [...] + | Performing | Address | City/State[facility] | Phone Number | | Organization | | | | + + + + + | [facility] | [address] | [place] | [phone] | | [facility] | | [address] | | | - IMAGING | | [...] | Spinal stenosis of lumbar region with utnlimfceiiyq-E5-C8 level moderately severe | | Spinal stenosis, [...]
--- OUTSIDE RECORDS SUMMARY | ~2019-05-12 | XMS | Encounter Summary ---
Demographics + + + | Address | [address] | | | [place] [address] | + + + | Home Phone | | + + + | Preferred Language | Unknown | + + + | Marital Status | | + + + | Scientology Affiliation | 1041 | + + + | Race | Unknown | + + + | Ethnic Group | Unknown | + + + Author + + + | Author | [facility] | | | and [place] | + + + | Organization | [facility] | | | and [place] | + + + | Address | Unknown | + + + | Phone | Unavailable | + + + Support + + + + + | Name | Relationship | Address | Phone | + + + + + | Lucy Winchester | ECON | [place], | | | | | [place] [address] | | + + + + + | Kellen Briones | ECON | [place] | | | | | [address] | | + + + + + Care Team Providers + +------+ + | Care System Software Developer Name | Role | Phone | + +------+ + | Barb Marte | THANG | | + +------+ + Encounter Details +--------+ + + + + | Date | Type | Department | Care Team | Description | +--------+ + + + + | 01/17/ | Imaging | [facility] | Provider, | | | 2018 | Exam | MED CTR EXTERNAL | [address] | | | | | IMAGING | [place] | | | | | [phone] | [place] [address] | | +--------+ + + + + [...] | | | | | | [place] [address] | | | | | | [phone] | | | | | | | | +--------+---------+ + + + | 07/30/ | Office | Cardiology | Agata Tinajero DO | | | 2019 | Visit | | [address] | | | | | | [place] | | | | | | [address] | | | | | | | | +--------+---------+ + + + documented as of this encounter Procedures + +--------+ + + + | Procedure Name | Priori | Date/Time | Associated Diagnosis | Comments | | | ty | | | | + +--------+ + + + | RACHEL DIGITAL | Routin | 05/08/2011 | | Results for this | | SCREENING BILATERAL | e | 2:20 PM | | procedure are in the | | | | PST | | results section. | + +--------+ + + + documented in this encounter Results RACHEL Digital Screening Bilateral (05/08/2011 2:20 PM PST) + + | Specimen | [...]
--- OUTSIDE RECORDS SUMMARY | ~2019-05-12 | XMS | Encounter Summary ---
Demographics + + + | Address | [address] | | | [place] [address] | + + + | Home Phone | | + + + | Preferred Language | Unknown | + + + | Marital Status | | + + + | Sikhism Affiliation | [id number] | + + + [...] [place], | | | | | [place] [address] | | + + + + + | Kellen Briones | ECON | [place], [place] | | | | | [address] | | + + + + + Care Team Providers + +------+ + | Care Button Maker Name | Role | Phone | + +------+ + | Anna De Guzman PA-C | PCP | | + +------+ + Encounter Details +--------+ + + + + | Date | Type | Department | Care Team | Description | +--------+ + + + + | 02/01/ | Hospital | [facility] | Irving Becerril, | Neck pain | | 2016 | Encounter | MED CTR XRAY [address] | DO [address] | | | | | [place] | [address] [place], [place] | | | | | [place] [address] | [phone] | | | | | [phone] | | | +--------+ + + + [...] | 2018 | Visit | | [address] | | | | | | [place] | | | | | | [place] [address] | | | | | | [phone] | | | | | | | | +--------+---------+ + + + | 07/30/ | Office | Cardiology | Agata Tinajero DO | | | 2020 | Visit | | [address] | | | | | | [place] | | | | | | [address] | | | | | | | | +--------+---------+ + + + documented as of this encounter Procedures + +--------+ + + + | Procedure Name | Priori | Date/Time | Associated Diagnosis | Comments | | | ty | | | | + +--------+ + + + | XR CERVICAL SPINE 4 | Routin | 02/02/2016 | Neck pain | Results for this | | OR 5 VWS | e | 12:02 PM | | procedure are in the | | | | PDT | | results section. | + +--------+ + + + documented in this encounter Results XR Cervical Spine 4 [...] Neck pain . COMPARISON: MRI cervical spine 7/19/2016FINDINGS:There is | | straightening of the cervical [...] | + + + + + | [facility] | [address] | [place] | [phone] | | [facility] | | [address] | | | - IMAGING | | | | + + + + + documented in this encounter Visit Diagnoses + + | Diagnosis | + + | Neck pain Cervicalgia | + + documented in this encounter"
--- OUTSIDE RECORDS SUMMARY | ~2019-05-12 | XMS | Encounter Summary ---
Demographics + + + | Address | [address] | | | [place] [address] | + + + | Home Phone [...] [place], | | | | | [place] [address] | | + + + + + | Kellen Briones | ECON | [place], [place] | | | | | [address] | | + + + + + Care Team Providers + +------+ + | Care School Examiner Name | Role | Phone | + +------+ + | Anna De Guzman PA-C | PCP | | + +------+ + Reason for Visit + + + | Reason | Comments | + + + | Seizures | Episode of "going out" in Dr. Weber July 2012. Family | | | states this has been happening since Mar 2012. Son has seizure | | | disorder. | + + + | Other | Dx with global amnesia 16 years ago after 's . | + + + | Diabetes | Checks BS at home. Fasting in AM 110-120. Was 116 today. | + + + Encounter Details +--------+---------+ + + + | Date | Type | Department | Care Team | Description | +--------+---------+ + + + | 08/13/ | Office | [facility] | Patrick Gaffney MD [address] | Decreased | | 2012 | Visit | NEUROLOGY [place] | [address] | [facility] | | | | [address], | [address], | (Primary Dx); Small | | | | [address] [facility] | [place] [address] | vessel disease (HCC) | | | | [place] [address] | [phone] | | | | | [phone] | | | +--------+---------+ + + + [...] + + + | Blood Pressure | 128/56 | 08/13/2012 1:44 PM | | | | | PDT | | + + + + + | Pulse | 68 | 08/13/2012 1:44 PM | | | | | PDT | | + + + + + | Temperature | - | - | | + + + + + | Respiratory Rate | 18 | 08/13/2012 1:44 PM | | | | | PDT | | + + + + + | Oxygen Saturation | - | - | | + + + + + | Inhaled Oxygen | - | - | | | Concentration | | | | + + + + + | Weight | 71.2 kg (157 lb) | 08/13/2012 1:44 PM | | | | | PDT | | + + + + + | Height | 160 cm (5' 3") | 08/13/2012 1:44 PM | | | | | PDT | | + + + + + | Body Mass Index | 27.81 | 08/13/2012 1:44 PM | | | | | PDT | | + + + + + documented in this encounter Patient Instructions Patient Instructions Patrick Gaffney MD - 08/13/2012 2:37 PM PDT1. I do not think these episodes are strokes 2. These episodes are not typical for seizures, however we will repeat a sleep deprived EEG , see if we can capture an episode 3. Continue optimize your blood cholesterol, blood pressure, blood suger, regular exercises as tolerated Follow up in one month after the EEG 2:4 2 PM PDT documented in this encounter Progress Notes Nancy Hobbs, GRAYSON - 08/13/2012 4:[address] Gaffney for sleep-deprived EEG. V starlacemail message left with EEG Dept and progress notes faxed to them. Patient was informed t hat EEG Dept will call her to schedule study. Dr. Gaffney's office will call her to schedule fol [facility] appointment for one month after EEG is done. Patrick cShneider MD - 08/13/2012 2:05 PM PDTFormatting of this note m ight be different from the original. Neurology New Patient Evaluation Referring Physician: Anna Draper PA-C PCP: Anna Draper PA-C Date of Encounter: 08/13/2012 CC: Decreased responsiveness HPI: Clementine Winchester is a pleasant 72 y.o. female who presents to the clinic today for episodes of decreased responsiveness since March of last year. The patient was accompanied by her daughter and son-in-law. The daughter was able to give description of these episodes. Apparently her first episode occurred in March 03 last year . The patient was reported to be eating popcorn in the recliner. She says she was very sle epy. And all of a sudden she thew the popcorn and became unresponsive. The daughter reporte d that if she talks to her during the unresponsiveness, she would still say that she is okay . Her speech was slurred and her eyes were closed. These lasted for 10-15 minutes. She re ports several other similar episodes, usually preceded by sleepiness and unable to stay awak e. The last episode was on July 23, in Dr. Ann's office for back pain. The cintia ent was reported to be walking with a walker with her eyes closed at that time. This episod e lasted for about 5 minutes. She almost fell if family members did not catch her. The carole singh does not have recollection of these events. She was evaluated in the ER at one time, a nd reported that the ER physician was not impressed by her symptoms and was told that the pa chey might be overmedicated. She was evaluated by Dr. Longo at [facility]. 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 MRA of the head and neck was unremarkable for large v essel stenosis or occlusion. She also had EEG which showed mild diffuse slowing of the back ground without epileptiform discharges. She was seen by petroleum analyst at [facility]. She reported that she had Holter monitoring and echo and was told that these episodes aren't not associated with cardiac issues. She did report 16 years ago right after her she had an amnesia episode for a few days. She had abnormal behavior at that time. S he started to have various pains in the neck and back for the past one to 2 years and starte d to take pain pills since February. She also started to take Celexa and Wellbutrin for dep ression roughly at the same time. I personally reviewed radiology imagies and records from multiple provider's offices. Allergies Allergies Allergen Reactions Tape (Adhesive & Tape) Rash Medications Current Outpatient Prescriptions on File Prior to Visit Medication Sig Dispense Refill gabapentin (NEURONTIN) 300 mg capsule Take 300 mg by mouth 3 times daily. metoprolol succinate (TOPROL-XL) 50 mg 24 hr tablet Take 50 mg by mouth Daily. metFORMIN (GLUCOPHAGE) 500 mg tablet Take 500 mg by mouth 2 times daily (with breakfast & dinner). citalopram (CELEXA) 20 mg tablet Take 20 [...] tongue every 5 minute s as needed. Past Medical History Past Medical History Diagnosis Date Coronary artery disease Diabetes mellitus Hypertension Stroke Syncope and collapse Cancer Breast Hyperlipidemia ID (myocardial infarction) GERD (gastroesophageal reflux disease) Asthma Arthritis Lumbar radiculopathy 07/23/2012 DDD (degenerative disc disease), lumbar 07/23/2012 Spinal stenosis of lumbar region with nyiqqhezrjrpd-S9-D2 level moderately severe 2012 Facet arthritis of lumbar region-Most severe at L4-L5,L5-S1 07/23/2012 Family History Family History Problem Relation Age of Onset Alcohol abuse Father Migraines Daughter Migraines Son Seizures Son Cancer Mother Heart disease Mother Hypertension Mother Hypertension Daughter Hypertension Son Arthritis Mother Arthritis Daughter Social History History Social History Marital Status: Spouse Name: N/A Number of Children: N/A Years of Education: N/A Occupational History Not on file. Social History Main Topics Smoking status: Never Smoker Smokeless tobacco: Never Used Alcohol Use: Yes occasional glass of wine Drug Use: No Sexually Active: Not on file Other Topics Concern Not on file Social History Narrative No narrative on file Review of Systems In addition to HPI, a comprehensive ROS also revealed (See scanned intake form): General: Weight gain ENT: Ringing in the ears Allergy and immunology: Seasonal allergies Respiratory: Occasional cough and wheezing Genitourinary: Urinary urgency Musculoskeletal: Joint pain Psychological: Some depression, memory difficulties Physical Exam: BP 128/56 | Pulse 68 | Resp 18 | Ht 1.6 m (5' 3") | Wt 71.215 kg (157 lb) | BMI 27.81 kg/m2 | ? No General: WDWN, NAD. Head is ataumatic, normocephalic. Conjunctiva without injection. Neck is supple. No carotid bruit. Lungs are clear to auscultation bilaterally. Heart is regular. No pedal e greg. Abdomen is soft and non-tender. Skin no rash. MS: Awake, alert, oriented x3. Cooperative and appropirate during the encounter. Speech is mary r, fluent and coherent. Attention and memory intact. Fund of knowledge is good. CN: Fundus showed optic disc with sharp border. VFF to confrontation. EOMI. PERRLA. Facial sens ation is intact. Face is symmtric. Hearing is intact. Palate elevation is symmetric. Shoulde r shrug 5/5. Tongue protrusion is midline. Motor: Bulk: normal Tone: normal Muscle strength: full in all extremities DTR 2+ and symmetrical in the upper and lower extremities, except trace bilateral Achilles Reflexes. Plantar reflexes: downgoing Abnormal movement: none. Sensory: Grossly intact to light touch. Coordination: FNF/HKS intact Rapid alternating movement intact Gait: Steady including heel/toe and tandom gait. Romberg sign is absent. Assessment/Plan: 1. Episodes of decreased responsiveness: I think the most likely nature of these episodes is that the patient fell asleep. She did have history of starting multiple PSYCH NURSE depressant medications since last February. These ep isodes are atypical for seizures. She did have a previous EEG which only showed slowing, a nonspecific finding and can be secondary to medications. There is no seizure discharges. I would plan to repeat a sleep deprived EEG, which may help to increase the yield of seizure discharges if there is any, and hopefully after sleep deprivation, we may be able to record an events which would be diagnostic for her condition. I also discussed with the patient th at these episodes are not strokes or TIAs. 2. Small vessel disease She should continue with aspirin, regular exercises as tolerated, and to optimize blood pre ssure, cholesterol, and blood sugar. Thank you for allowing me to take care of this patient. Please do not hesitate to contact m e if you have any questions. Cc: Anna Draper PA-C documented in this encounter Plan of Treatment +--------+---------+ + + + | Date | Type | Specialty | Care Team | Description | +--------+---------+ + + + | 05/14/ | Office | Orthopedic Surgery | Monster White MD | | | 2019 | Visit | | [address] | | | | | | [place], | | | | | | [place] [address] | | | | | | [phone] | | | | | | | | +--------+---------+ + + + | 07/30/ | Office | Cardiology | Agata Tinajero DO | | | 2020 | Visit | | [address] | | | | | | [place] | | | | | | [address] | | | | | | | | +--------+---------+ + + + +------+ +--------+ + + | Name | Type | Priori | Associated Diagnoses | Order Schedule | | | | ty | | | +------+ +--------+ + + | EEG | Neurology | Routin | Decreased | Expected: 08/20/2012 | | | | e | responsiveness | (Approximate), | | | | | | Expires: 03/01/2013 | +------+ +--------+ + + documented as of this encounter Visit Diagnoses + + | Diagnosis | + + | Decreased responsiveness - Primary Other alteration of consciousness | + + | Small vessel disease (HCC) Peripheral vascular disease, unspecified | + + documented in this encounter
--- OUTSIDE RECORDS SUMMARY | ~2019-05-12 | XMS | Encounter Summary ---
Demographics + + + | Address | [address] | | | [place] [address] | + + + | Home Phone | | + + + | Preferred Language | Unknown | + + + | Marital Status | | + + + | Restorationism Affiliation | 1041 | + + + | Race | Unknown | + + + | Ethnic Group | Unknown | + + + Author + + + | Author | [facility] | | | and [place] | + + + | Organization | [facility] | | | and [place] | + + + | Address | Unknown | + + + | Phone | Unavailable | + + + Support + + + + + | Name | Relationship | Address | Phone | + + + + + | Lucy Winchester | ECON | [place], | | | | | [place] [address] | | + + + + + | Kellen Briones | ECON | [place], [place] | | | | | [address] | | + + + + + Care Team Providers + +------+ + | Care Plumber Gasfitter Name | Role | Phone | + [...] | Lumbar | Marissa, | [address] | | | | | radiculopath | Tk Monreal MD | [place], | | | | | y | [address] | [place] | | | | | Procedures | [address] [place] | [address] | | | | | [place] INJECT | [facility], [place] | Phone: | | | | | ANES/STEROID | [address] | [phone] | | | | | FORAMEN | Phone: | Fax: | | | | | LUMBAR/SACRA | [phone] | [phone] | | | | | L W IMG | Fax: | | | | | | GUIDE ,1 | [phone] | | | | | | [place]EL [place] | | | | | | | TRIAMCINOLON | | | | | | | E ACET INJ | | | | | | | NOS, 10 MG | | | | | | | Appt | | | | | | | 11/15-Bilatea | | | | | | | l L5-S1 | | | | | | | TFESI | | | +--------+--------+ + + + + Encounter Details +--------+ + + + + | Date | Type | Department | Care Team | Description | +--------+ + + + + | 11/15/ | Hospital | [facility] | [place], | Spondylolisthesis of | | 2015 | Encounter | MED CTR XRAY [address] | [place] [address] | lumbar region; | | | | [address] [place] | [facility], | Lumbar | | | | [place] [address] | [place] [address] | radiculopathy; | | | | [phone] | [phone] | Spinal stenosis of | | | | | | lumbar region with | | | | | AnesthetistCandace | xircllbfwyera-T1-Q0 | | | | | | level moderately | | | | | | severe; Facet | | | | | | arthritis of lumbar | | | | | | region-Most severe | | | | | | at L4-L5,L5-S1 | +--------+ + + + + Social [...] +---------+ + + | Blood Pressure | 118/55 | 11/16/2015 2:42 PM | | | | | PDT | | + +---------+ + + | Pulse | - | [...] | 2019 | Visit | | [address] | | | | | | [place] | | | | | | [place] [address] | | | | | | [phone] | | | | | | | | +--------+---------+ + + + | 07/30/ | Office | Cardiology | Agata Tinajero DO | | | 2020 | Visit | | [address] | | | | | | [place] | | | | | | [address] | | | | | | | | +--------+---------+ + + + documented as of this encounter Procedures + +--------+ + + + | Procedure Name | Priori | Date/Time | Associated Diagnosis | Comments | | | ty | | | | + +--------+ + + + | FL EPIDURAL STEROID | Routin | 11/16/2015 | Spondylolisthesis | Results for this | | INJECTION LUMBAR | e | 2:29 PM | of lumbar region | procedure are in the | | TRANSFORAMINAL | | PDT | Lumbar radiculopathy | results section. | | | | | Spinal stenosis of | | | | | | lumbar region with | | | | | | xwnvjqkcxprqo-N4-L0 | | | | | | level moderately | | | | | | severe Facet | | | | | | arthritis of lumbar | | | | | | region-Most severe | | | | | | at L4-L5,L5-S1 | | + +--------+ + + + documented in this encounter Results FL BAUTISTA Lumbar Transforaminal (11/16/2015 2:29 PM PDT) + + | Specimen | + + | | + + + + + | Narrative | Performed At | + + + | 11/16/2015 Bilateral Transforaminal Epidural Steroid Injections | [facility] | | Diagnosis: Lumbar radiculopathy ICD-10 Code M54.16 [place] | [facility] | | Lizett Winchester presents to the fluoroscopy suite for | [facility] | | fluoroscopically-guided bilateral L5-S1 transforaminal [...] [address] | [place] | [phone] | | [facility] | | [address] | | | - IMAGING | | | | + + + + + documented in this encounter Visit Diagnoses + + | Diagnosis | + + | Spondylolisthesis of lumbar region Acquired spondylolisthesis | + + | Lumbar radiculopathy Thoracic or lumbosacral neuritis or radiculitis, unspecified | + + | Spinal stenosis of lumbar region with owknhswsrpxwf-V0-E3 level moderately severe | | Spinal stenosis, [...] +-------+------+------+ | betamethasone (CELESTONE | Given | 11/16/19 | 12 mg | | | | SOLUSPAN) injection 12 mg 12 mg, | | 16 2:35 | | | | | Other, EVERY 24 HOURS INTERVAL, | | PM PDT | | | | | First dose on Sat11/16/15 at | | | | | | | 1445, For 2 doses, Shake well. | | | | | | | Not for IV use., | | | | | | + +--------+ +-------+------+------+ +---+---+ | | | +---+---+ + +-------+ +-------+---+---+ | iohexol (OMNIPAQUE 300) 300 | Given | 11/16/19 | 4 mLs | | | | mg/mL injection 4 mL 4 mL, | | 16 2:30 | | | | | INTRATHECAL, ONCE, Sat11/16/15 at | | PM PDT | | | | | 1445, For 1 dose | | | | | | + +-------+ +-------+---+---+ +---+---+ | | | +---+---+ + +-------+ +-------+---+---+ | lidocaine (PF) 1% injection 2 | Given | 11/16/19 | 2 mLs | | | | mL 2 mL, Other, ONCE, Wed | | 16 2:45 | | | | | 16 at 1445, For 1 dose | | PM PDT | | | | + +-------+ +-------+---+---+ +---+---+ | | | +---+---+ + +-------+ +--------+---+---+ | lidocaine buffered 1% injection | Given | 11/16/19 | 10 mLs | | | | 10 mL 10 mL, Other, ONCE, Wed | | 16 2:30 | | | | | 16 at 1445, For 1 dose | | PM PDT | | | | + +-------+ +--------+---+---+ +---+---+ | | | +---+---+ documented in this encounter"
--- OUTSIDE RECORDS SUMMARY | ~2019-05-12 | XMS | Encounter Summary ---
Demographics + + + | Address | [address] | | | [place] [address] | + + + | Home Phone [...] [place], | | | | | [place] [address] | | + + + + + | Kellen Briones | ECON | [place] | | | | | [address] | | + + + + + Care Team Providers + +------+ + | Care Process Improvement Manager Name | Role | Phone | + +------+ + | Barb Marte | PCP | | + +------+ + Encounter Details +--------+ + + + + | Date | Type | Department | Care Team | Description | +--------+ + + + + | 01/31/ | Hospital | [facility] | Conversion | Diagnosis unknown | | 2018 | Encounter | CONVERSION DEP [address] | Transaction, | | | | | [address] | Provider Unknown | | | | | [place] | [phone] | | | | | [address] | | | | | | [phone] | | | +--------+ + + + [...] | | | | | | [place] [address] | | | | | | [phone] | | | | | | | | +--------+---------+ + + + | 07/30/ | Office | Cardiology | Agata Tinajero DO | | | 2019 | Visit | | [address] | | | | | | [place] | | | | | | [address] | | | | | | | | +--------+---------+ + + + documented as of this encounter Procedures + +--------+ + + + | Procedure Name | Priori | Date/Time | Associated Diagnosis | Comments | | | ty | | | | + +--------+ + + + | XR CHEST 1 VIEW | Routin | 01/30/2018 | | Results for this | | | e | 5:36 PM | | procedure are in the | | | | PDT | | results section. | + +--------+ + + + documented in this encounter Results XR Chest 1 Vw (01/30/2018 5:36 PM PDT) + + | Specimen | + + | | + + + + + | Narrative | Performed At | + + + | This is a non-reportable procedure without a radiologist report and | | | is used for image storage only | | + + + + + | Procedure Note | + + | Nilay Lawrence - 01/14/2019 11:42 AM PDT This is [...]
--- OUTSIDE RECORDS SUMMARY | ~2019-05-12 | XMS | Encounter Summary ---
Demographics + + + | Address | [address] | | | [place] [address] | + + + | Home Phone [...] [place], | | | | | [place] [address] | | + + + + + | Kellen Briones | ECON | [place], [place] | | | | | [address] | | + + + + + Care Team Providers + +------+ + | Care Community Planning Technician Name | Role | Phone | [...] + + | 02/11/ | Office | [facility] | Mono Diaz, | Lumbar radiculopathy | | 2018 | Visit | PHYSIATRY [address] | PA-C [address] | (Primary Dx) | | | | [place], | [address] [place] | | | | | [place] [address] | [place] [address] | | | | | [phone] | [phone] | | | | | | | [...] of the procedure you must provide a mail truck driver to take you home. For [...] press against a nerve. Date Last Reviewed: 08/01/201719996275-9789 [employer]. [address] [place] [address], [place] [address]. All righ ts reserved. This information is [...] back symptoms. Recenlty patient was admitted to [facility]'s ED/ICU for abnormal behavior which was originally treated as a str samantha, patient's daughter requested she be transferred to [facility] where patient was diagnosed w ith [...] and narcotic medications use; she currently uses [place], Flexeril and [place] bapentin. She is taking [...] no apparent deficits with short or senior living memory. She has appropriate fund of knowledge [...] PT (multiple sessions over the years) and home day care provider. Unfortunately Clementine Winchester continues to have significant [...] | | | | | | [place] [address] | | | | | | [phone] | | | | | | | | +--------+---------+ + + + | 07/30/ | Office | Cardiology | Agata Tinajero DO | | | 2019 | Visit | | [address] | | | | | | [place] | | | | | | [address] | | | | | | | [...]
--- OUTSIDE RECORDS SUMMARY | ~2019-05-12 | XMS | Encounter Summary ---
Demographics + + + | Address | [address] | | | [place] [address] | + + + | Home Phone [...] [place], | | | | | [place] [address] | | + + + + + | Kellen Briones | ECON | [place] | | | | | [address] | | + + + + + Care Team Providers + +------+ + | Care Graphic Design Intern Name | Role | Phone | [...] | | | [address] | [address] [place], [place] | | | | | [place], [place] | [address] | | | | | [address] | | | | | | [phone] | | | +--------+ + + + [...] | 2020 | Visit | | [address] | | | | | | [place], | | | | | | [place] [address] | | | | | | [phone] | | | | | | | | +--------+---------+ + + + | 07/30/ | Office | Cardiology | Agata Tinajero DO | | | 2019 | Visit | | [address] | | | | | | [place] | | | | | | [address] | | | | | | | [...] m/s MV DecT: 137.22 ms MV E Obed: 1.08 m/s MV | | | E/A Ratio: 0.86 MV PHT: 39.79 ms MVA By PHT: 5.52 cm2 | | | Septal e': 0.03 m/s Septal E/e': 33.19 Lateral e': 0.05 m/s | | | Lateral E/e': 19.41 RAP: 10 mmHg RVSP: 43.57 mmHg TR | | | maxP.57 mmHg TR Vmax: 2.89 m/s Vending Machine Assembler: | | | Authenticated by: BUCK SOTO [...] cmLVPWd: 1.17 | | cmLVOT Area: 3.02 dy3PCBY Diam: 1.96 cm%FS: 38.74 %EF(Teich): 69.95 %ESV(Teich): [...] (A-L): 22.04 ml/m2LAAs A2C: | | 13.50 [id number] A-L A2C: 36.98 mlLALs A2C: 4.18 cmLAAs A4C: 13.35 [id number] A-L A4C: | | 31.07 mlLALs A4C: 4.87 cmRAAs: 22.15 [id number] A-L: 78.87 mlRAESV MOD: 76.76 | | mlRALs: 5.28 cmTAPSE: 1.36 cmAV maxP.05 mmHgAV meanP.09 mmHgAV Vmax: | | 1.50 m/Shreyas Vmean: 1.08 m/Shreyas VTI: 30.75 cmAVA Vmax: 2.05 cm2AVA (VTI): 2.07 | | [id number] Vmax: 0.00 cm2/m2AVAI (VTI): 0.00 cm2/m2LVOT maxP.16 mmHgLVOT meanPG: | | 2.03 mmHgLVSI Dopp: 38.41 ml/m2LVSV Dopp: 63.76 mlLVOT Vmax: 1.02 m/sLVOT Vmean: | | 0.65 m/sLVOT VTI: 21.09 cmMV A Obed: 1.25 m/sMV DecT: 137.22 msMV E Obed: 1.08 | | m/sMV E/A Ratio: 0.86MV PHT: 39.79 msMVA By PHT: 5.52 bx7Fgrnwr e': 0.03 | | m/sSeptal E/e': 33.19Lateral e': 0.05 m/sLateral E/e': 19.41RAP: 10 mmHgRVSP: | | 43.57 mmHgTR maxP.57 mmHgTR Vmax: 2.89 m/s Vending Machine Assembler:Authenticated by: | | ELIZABETH ROYeport Date/Time: 08-20-2017 [...] |TR Vmax: 2.89 m/s | | | |Vending Machine Assembler: | |Authenticated by: BUCK SOTO MD | [...]
--- OUTSIDE RECORDS SUMMARY | ~2019-05-12 | XMS | Encounter Summary ---
Demographics + + + | Address | [address] | | | [place] [address] | + + + | Home Phone | | + + + | Preferred Language | Unknown | + + + | Marital Status | | + + + | Mu-Ism Affiliation | 1041 | + + + | Race | Unknown | + + + | Ethnic Group | Unknown | + + + Author + + + | Author | [facility] | | | and [place] | + + + | Organization | [facility] | | [...] [place], | | | | | [place] [address] | | + + + + + | Kellen Briones | ECON | [place], [place] | | | | | [address] | | + + + + + Care Team Providers + +------+ + | Care Blunger Name | Role | Phone | + [...] + + | 03/28/ | Telephone | [facility] | Irving Becerril, | Surgery Appointment | | 2015 | | NEUROSURGERY [address] | DO [address] | (reminder ) | | | | [address] | [address] [place], [place] | | | | | [place], [place] | [address] | | | | | [address] | | | | | | [phone] | | | +--------+ + + + [...] | | | | | | [place] [address] | | | | | | [phone] | | | | | | | | +--------+---------+ + + + | 07/30/ | Office | Cardiology | Agata Tinajero DO | | | 2019 | Visit | | [address] | | | | | | [place] | | | | | | [address] | | | | | | | | +--------+---------+ + + + documented as of this encounter Visit Diagnoses Not on filedocumented in this encounter"
--- OUTSIDE RECORDS SUMMARY | ~2019-05-12 | XMS | Encounter Summary ---
Demographics + + + | Address | [address] | | | [place] [address] | + + + | Home Phone [...] [place], | | | | | [place] [address] | | + + + + + | Kellen Briones | ECON | [place] | | | | | [address] | | + + + + + Care Team Providers + +------+ + | Care Hand Nailer Name | Role | Phone | + +------+ + | Barb Marte | PCP | | + +------+ + Encounter Details +--------+ + + + + | Date | Type | Department | Care Team | Description | +--------+ + + + + | 01/31/ | Hospital | [facility] | Conversion | Diagnosis unknown | | 2018 | Encounter | CONVERSION [address]P [address] | Transaction, | | | | | [address] | Provider Unknown | | | | | [place] | [phone] | | | | | [address] | | | | | | [phone] | | | +--------+ + + + [...] | | | | | | [place] [address] | | | | | | [phone] | | | | | | | | +--------+---------+ + + + | 07/30/ | Office | Cardiology | Agata Tinajero DO | | | 2019 | Visit | | [address] | | | | | | [place] | | | | | | [address] | | | | | | | [...]
--- OUTSIDE RECORDS SUMMARY | ~2019-05-12 | XMS | Encounter Summary ---
Demographics + + + | Address | [address] | | | [place] [address] | + + + | Home Phone | | + + + | Preferred Language | Unknown | + + + | Marital Status | | + + + | Yazidism Affiliation | 1041 | + + + [...] [place], | | | | | [place] [address] | | + + + + + | Kellen Briones | ECON | [place], [place] | | | | | [address] | | + + + + + Care Team Providers + +------+ + | Care Religious Leader Name | Role | Phone | + [...] | | | claudication | B | [address] | | | | | Procedures | [place], [place] | Phone: | | | | | MRI Lumbar | [address] | [phone] | | | | | Spine wo | Phone: | Fax: | | | | | Contrast | [phone] | [phone] | | | | | | Fax: | | | | | | | [phone] | | +--------+--------+ + + + + [...] | | | claudication | B | [address] | | | | | Procedures | [place], [place] | Phone: | | | | | CT Lumbar | [address] | [phone] | | | | | Spine wo | Phone: | Fax: | | | | | Contrast | [phone] | [phone] | | | | | | Fax: | | | | | | | [phone] | | +--------+--------+ + + + + [...] | | without | [place], | [place], [place] | | | |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 | [place] [address] | [address] | | | | | claudication | Phone: | Phone: | | | | | lumbar | [phone] | [phone] | | | | | | Fax: | Fax: | | | | | | [phone] | [phone] | + +--------+ + + + + Encounter Details +--------+---------+ + + + | Date | Type | Department | Care Team | Description | +--------+---------+ + + + | 03/19/ | Office | [facility] | Monster White MD | Lumbar stenosis with | | 2019 | Visit | [facility] | [address]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 | | | | ORTHOPEDIC SPINE | [place], | claudication | | | | [address] | [place] [address] | (Primary Dx); | | | | B [place] | [phone] | Spondylolisthesis of | | | | [address] | | lumbar region | | | | [phone] | | | +--------+---------+ + + + [...] findings 01/2018 Social History Occupational History 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 Employer: [employer] Tobacco Use Smoking status: [...] reflux disease) Hyperlipidemia Hypertension Lumbar radiculopathy 07/23/2012 ID (myocardial infarction) (HCC) Neck pain on right side 05/13/2013 Oxygen dependent 2 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 Snoring Spinal stenosis of lumbar region with nzjoymrjtsglg-B5-Z6 level moderately severe 2012 Past Surgical History: Procedure Laterality Date BELPHAROPTOSIS REPAIR 2009 bilateral bone spur left foot BREAST RECONSTRUCTION 1164-9901 About 10 surgeries CARPAL TUNNEL RELEASE Bilateral CERVICAL SPINE SURGERY Anterior 03/30/2016 Procedure: C3-4, C4-5, C5-6, C6-7 Anterior Cervical Discectomy w/ Fusion and Plating; Bryan geon: Irving Becerril, DO; Location: [facility] MAIN OR CORONARY ARTERY BYPASS GRAFT [...] flexors 5 5 Hand intrinsics 5 5 Auto Body Shop Manager 5 5 Hip flexors 5 5 Quadriceps [...] Note: We spent approximately 50 minutes in ipmg-ae-dhca time of which greater than 50% was [...] | | | | | | [place] [address] | | | | | | [phone] | | | | | | | | +--------+---------+ + + + | 07/30/ | Office | Cardiology | Agata Tinajero DO | | | 2019 | Visit | | [address] | | | | | | [place] | | | | | | [address] | | | | | | | [...] effects the | | right side at L1-F8yuunt it is severe and bilaterally at L5-S1 [...]
--- OUTSIDE RECORDS SUMMARY | ~2019-05-12 | XMS | Encounter Summary ---
Demographics + + + | Address | [address] | | | [place] [address] | + + + | Home Phone | | + + + | Preferred Language | Unknown | + + + | Marital Status | | + + + | Yazidism Affiliation | 1041 | + + + | Race | Unknown | + + + | Ethnic Group | Unknown | + + + Author + + + | Author | [facility] | | | and [place] | + + + | Organization | [facility] | | | and [place] | + + + | Address | Unknown | + + + | Phone | Unavailable | + + + Support + + + + + | Name | Relationship | Address | Phone | + + + + + | Lucy Winchester | ECON | [place], | | | | | [place] [address] | | + + + + + | Kellen Briones | ECON | [place], [place] | | | | | [address] | | + + + + + Care Team Providers + +------+ + | Care Margarine Maker Name | Role | Phone | + +------+ + | Anna De Guzman PA-C | PCP | | + +------+ + Encounter Details +--------+ + + + + | Date | Type | Department | Care Team | Description | +--------+ + + + + | 12/13/ | Orders Only | [facility] [place] | Pippa, | Neck pain on right | | 2016 | | PHYSIATRY [address] | [place] [address] | side; Facet | | | | [place], | [address] [place], | arthritis of | | | | [place] [address] | [place] [address] | cervical region | | | | [phone] | [phone] | (HCC); DDD | | | | | | (degenerative disc | | | | | | disease), cervical; | | | | | | Cervical stenosis of | | | | | | spinal canal | +--------+ + + + + Social [...] | | | | | | [place] [address] | | | | | | [phone] | | | | | | | | +--------+---------+ + + + | 07/30/ | Office | Cardiology | Agata Tinajero DO | | | 2019 | Visit | | [address] | | | | | | [place] | | | | | | [address] | | | | | | | [...] | | disc | + + | Cervical stenosis of spinal canal Spinal stenosis in cervical region | + + documented in this encounter"
--- OUTSIDE RECORDS SUMMARY | ~2019-05-12 | XMS | Encounter Summary ---
Demographics + + + | Address | [address] | | | [place] [address] | + + + | Home Phone | | + + + | Preferred Language | Unknown | + + + | Marital Status | | + + + | Zoroastrianism Affiliation | 1041 | + + + | Race | Unknown | + + + | Ethnic Group | Unknown | + + + Author + + + | Author | [facility] | | | and [place] | + + + | Organization | [facility] | | | and [place] | + + + | Address | Unknown | + + + | Phone | Unavailable | + + + Support + + + + + | Name | Relationship | Address | Phone | + + + + + | Lucy Winchester | ECON | [place], | | | | | [place] [address] | | + + + + + | Kellen Briones | ECON | [place], [place] | | | | | [address] | | + + + + + Care Team Providers + +------+ + | Care Novelty Twister Tender Name | Role | Phone | [...] + + | 01/23/ | Telephone | [facility] | Mono Diaz, | Medication Question | | 2017 | | PHYSIATRY [address] | PA-C [address] | | | | | [place], | [address] [place] | | | | | [place] [address] | [place] [address] | | | | | [phone] | [phone] | | | | | | | [...] | | | | | | [place] [address] | | | | | | [phone] | | | | | | | | +--------+---------+ + + + | 07/30/ | Office | Cardiology | Agata Tinajero DO | | | 2019 | Visit | | [address] | | | | | | [place] | | | | | | [address] | | | | | | | | +--------+---------+ + + + documented as of this encounter Visit Diagnoses Not on filedocumented in this encounter"
--- OUTSIDE RECORDS SUMMARY | ~2019-05-12 | XMS | Encounter Summary ---
Demographics + + + | Address | [address] | | | [place] [address] | + + + | Home Phone [...] [place], | | | | | [place] [address] | | + + + + + | Kellen Briones | ECON | [place], [place] | | | | | [address] | | + + + + + Care Team Providers + +------+ + | Care Color Tester Name | Role | Phone | + [...] | | | | | | | [place] | | | | | | [...] + + | 03/30/ | Surgery | [facility] | Irving Becerril, | C3-4, C4-5, C5-6, | | 2016 | | MED CTR OR INTRA OP | DO [address] | C6-7 Anterior | | | | [address] | [address] [place], [place] | Cervical Discectomy | | | | [place], [place] | [address] | w/ Fusion and | | | | [address] | | Plating | | | | [phone] | | | +--------+---------+ + + + [...] Hypertension Stroke Syncope and collapse Cancer Hyperlipidemia ID (myocardial infarction) GERD (gastroesophageal reflux disease) Asthma Spondylolisthesis of lumbar region Lumbar radiculopathy DDD (degenerative disc disease), lumbar Spinal stenosis of lumbar region with vvmodhjxzbeai-T9-G4 level moderately severe Facet arthritis of lumbar region-Most severe at L4-L5,L5-S1 Snoring Chronic narcotic use Neck pain on right side Facet arthritis of cervical region DDD (degenerative disc disease), cervical H/O Syncope & collape H/O CVA/stroke H/O ID (myocardial infarction) H/O Breast cancer - Right [...] of admission the patient was admitted to [facility] and underwent a C3-C7 fusion. Patient [...] signed by: Chavo Jacob, 03/31/2016 7:[address] [facility] documented in this encounter Discharge Instructions Instructions Merle Ricci, PHYSICIAN NEONATOLOGY - 03/31/2016Discharge Instructions for Cervical Fusion You [...] t raise your hands over your head bpc0mzmt(s)after your surgery. Don t drive until your [...] this your 1 month post op appointment. [id number] [employer] [address] [place] [address]. All righ ts reserved. This information is not intended as a substitute for professional medical care. Always follow your healthcare professional's instructions. If you would like Home Health: Call [facility] at [phone] documented in this encounter Medications at Time [...] + documented as of this encounter Progress Chavo Jaquez PA - 03/31/2016 7:48 AM PDTFormatting of this note might be different f rom the original. [facility] NEUROSURGERY PROGRESS NOTE Pt. Name/Age/: Clementine W[place]ster [...] 82 12 96 % - - 03/30/16 165 (!) 197/92 mmHg - - 105 - - - - 03/30/16 1647 192/85 mmHg - - 107 14 96 % - - 03/30/161645 - - - 105 13 96 % - - 03/30/161644 - - - 105 12 96 % [...] signed by: Chavo Jacob, 03/31/2016 7:[address] [facility] documented in this encounter Plan of Treatment [...] | | | | | | [place] [address] | | | | | | [phone] | | | | | | | | +--------+---------+ + + + | 07/30/ | Office | Cardiology | Agata Tinajero DO | | | 2019 | Visit | | [address] | | | | | | [place] | | | | | | [address] | | | | | | | [...] + | Nilay Lawrence Results In - 03/31/2016 8:51 AM PDT [...] [address] | [place] | [phone] | | [facility] | | [address] | | | - LABORATORY | | | | + + + + + KALPESH PatrickHiram Mccollum (03/30/2016 4:25 PM PDT) + + | [...] ST. | [address] | [place] | [phone] | | [facility] | | [address] | | | - LABORATORY | | [...] | [facility] | | [address] | | | - BLOOD BANK | [...]
--- OUTSIDE RECORDS SUMMARY | ~2019-05-12 | XMS | Encounter Summary ---
Demographics + + + | Address | [address] | | | [place] [address] | + + + | Home Phone [...] [place], | | | | | [place] [address] | | + + + + + | Kellen Briones | ECON | [place] | | | | | [address] | | + + + + + Care Team Providers + +------+ + | Care Spray Gun Striper Name | Role | Phone | + +------+ + | Barb Marte | PCP | | + +------+ + Encounter Details +--------+ + + + + | Date | Type | Department | Care Team | Description | +--------+ + + + + | 01/31/ | Hospital | [facility] | Conversion | Diagnosis unknown | | 2018 | Encounter | CONVERSION [address] | Transaction, | | | | | [address] | Provider Unknown | | | | | [place] | [phone] | | | | | [address] | | | | | | [phone] | | | +--------+ + + + [...] | | | | | | [place] [address] | | | | | | [phone] | | | | | | | | +--------+---------+ + + + | 07/30/ | Office | Cardiology | Agata Tinajero DO | | | 2019 | Visit | | [address] | | | | | | [place] | | | | | | [address] | | | | | | | [...]
--- OUTSIDE RECORDS SUMMARY | ~2019-05-12 | XMS | Encounter Summary ---
Demographics + + + | Address | [address] | | | [place] [address] | + + + | Home Phone | | + + + | Preferred Language | Unknown | + + + | Marital Status | | + + + | Jew Affiliation | 1041 | + + + | Race | Unknown | + + + | Ethnic Group | Unknown | + + + Author + + + | Author | [facility] | | | and [place] | + + + | Organization | [facility] | | | and [place] | + + + | Address | Unknown | + + + | Phone | Unavailable | + + + Support + + + + + | Name | Relationship | Address | Phone | + + + + + | Lucy Winchester | ECON | [place], | | | | | [place] [address] | | + + + + + | Kellen Briones | ECON | [place], [place] | | | | | [address] | | + + + + + Care Team Providers + +------+ + | Care Utility Locate Technician Name | Role | Phone | + +------+ + | Barb Marte | PCP | | + +------+ + Reason for Visit +---------+ + | Reason | Comments | +---------+ + | Imaging | | +---------+ + Encounter Details +--------+ + + + + | Date | Type | Department | Care Team | Description | +--------+ + + + + | 03/27/ | Telephone | [facility] | Monster White MD | Imaging | | 2019 | | NEUROSCIENCE CENTER | [address] | | | | | ORTHOPEDIC SPINE | [place] | | | | | [address] [place] | [place] [address] | | | | | [place] | [phone] | | | | | [address] | | | | | | [phone] | | | +--------+ + + + [...] | | | | | | [place] [address] | | | | | | [phone] | | | | | | | | +--------+---------+ + + + | 07/30/ | Office | Cardiology | Agata Tinajero DO | | | 2019 | Visit | | [address] | | | | | | [place] | | | | | | [address] | | | | | | | | +--------+---------+ + + + documented as of this encounter Visit Diagnoses Not on filedocumented in this encounter"
--- OUTSIDE RECORDS SUMMARY | ~2019-05-12 | XMS | Encounter Summary ---
Demographics + + + | Address | [address] | | | [place] [address] | + + + | Home Phone | | + + + | Preferred Language | Unknown | + + + | Marital Status | | + + + | Druze Affiliation | 1041 | + + + | Race | Unknown | + + + | Ethnic Group | Unknown | + + + Author + + + | Author | [facility] | | | and [place] | + + + | Organization | [facility] | | | and [place] | + + + | Address | Unknown | + + + | Phone | Unavailable | + + + Support + + + + + | Name | Relationship | Address | Phone | + + + + + | Lucy Winchester | ECON | [place], | | | | | [place] [address] | | + + + + + | Kellen Briones | ECON | [place], [place] | | | | | [address] | | + + + + + Care Team Providers + +------+ + | Care Staffing Manager Name | Role | Phone | [...] | | | Procedures | [address] | | | | | NM Nuclear | [address] | Med [address] | | | | | Stress Test | [address] | [address] | | | | | (Vasodilator | [place], [place] | [place], [place] | | | | | ) | [address] | [address] | | | | | | Phone: | Phone: | | | | | | [phone] | [phone] | | | | | | Fax: | Fax: | | | | | | [phone] | [phone] | +--------+--------+ + + + + Encounter Details +--------+ + + + + | Date | Type | Department | Care Team | Description | +--------+ + + + + | 02/17/ | Hospital | [facility] | TinajeroFlorindayDO | | | 2019 | Encounter | CARDIOLOGY [place] | [address] | | | | | NUC MED [address] | [address] [place], [place] | | | | | [address] | [address] | | | | | [place], [place] | | | | | | [address] | | | | | | [phone] | | | +--------+ + + + [...] | 2019 | Visit | | [address] | | | | | | [place] | | | | | | [place] [address] | | | | | | [phone] | | | | | | | | +--------+---------+ + + + | 07/30/ | Office | Cardiology | Agata Tinajero DO | | | 2019 | Visit | | [address] | | | | | | [place] | | | | | | [address] | | | | | | | [...]
--- OUTSIDE RECORDS SUMMARY | ~2019-05-12 | XMS | Encounter Summary ---
Demographics + + + | Address | [address] | | | [place] [address] | + + + | Home Phone | | + + + | Preferred Language | Unknown | + + + | Marital Status | | + + + | Mormon Affiliation | 1041 | + + + [...] [place], | | | | | [place] [address] | | + + + + + | Kellen Briones | ECON | [place], [place] | | | | | [address] | | + + + + + Care Team Providers + +------+ + | Care Manager Of Organizational Development Name | Role | Phone | + [...] | | | | | spinal | [address] | | | | | | fusion | Phone: | | | | | | | [phone] | | | | | | | Fax: | | | | | | | [phone] | | +--------+ + + + + + Reason for Visit +---------+ + | Reason | Comments | +---------+ + | Post Op | 3m PO | +---------+ + Encounter Details +--------+---------+ + + + | Date | Type | Department | Care Team | Description | +--------+---------+ + + + | 07/04/ | Office | [facility] | Irving Becerril, | Cervical myelopathy | | 2017 | Visit | NEUR[address]URGERY [address] | DO [address] | ([facility]) (Primary Dx); | | | | [address] | [address] [place], [place] | S/P cervical spinal | | | | [place], [place] | [id number] | fusion | | | | [address] | | | | | | [phone] | | | +--------+---------+ + + + [...] m the original. Irving Becerril DO [address] [facility] [address] [place] [address] FAX: NEUROSURGERY FOLLOW-UP CHIEF COMPLAINT: Chief Complaint [...] (HCC) Hypertension Cancer (HCC) Right breast Hyperlipidemia MA (myocardial infarction) (HCC) GERD (gastroesophageal reflux disease) Asthma Arthritis Lumbar radiculopathy 07/23/2012 DDD (degenerative disc disease), lumbar 07/23/2012 Spinal stenosis of lumbar region with fdvsbhpnoogwr-I0-W7 level moderately severe 2012 Facet arthritis of [...] 1989' Mastectomy, radical 1987 Right Breast reconstruction 3994-7819 About 10 surgeries Bone spur left foot Blepharoptosis repair 2009 bilateral Cervical spine surgery Anterior 03/30/2016 Procedure: C3-4, C4-5, C5-6, C6-7 Anterior Cervical Discectomy w/ Fusion and Plating; Enamorado rgeon: Irving Becerril DO; Location: [facility] MAIN OR CURRENT MEDICATIONS: Current Outpatient Prescriptions [...] (HCC) Hypertension Cancer (HCC) Right breast Hyperlipidemia MA (myocardial infarction) (HCC) GERD (gastroesophageal reflux disease) Asthma Arthritis Lumbar radiculopathy 07/23/2012 DDD (degenerative disc disease), lumbar 07/23/2012 Spinal stenosis of lumbar region with lpwmtglybuhvm-W6-J4 level moderately severe 2012 Facet arthritis of [...] | | | | | [place] [address] | | | | | | [phone] | | | | | | | | +--------+---------+ + + + | 07/30/ | Office | Cardiology | Agata Tinajero DO | | | 2019 | Visit | | [address] | | | | | | [place] | | | | | | [address] | | | | | | | [...]
--- OUTSIDE RECORDS SUMMARY | ~2019-05-12 | XMS | Encounter Summary ---
Demographics + + + | Address | [address] | | | [place] [address] | + + + | Home Phone | | + + + | Preferred Language | Unknown | + + + | Marital Status | | + + + | Anabaptism Affiliation | 1041 | + + + | Race | Unknown | + + + | Ethnic Group | Unknown | + + + Author + + + | Author | [facility] | | | and [place] | + + + | Organization | [facility] | | | and [place] | + + + | Address | Unknown | + + + | Phone | Unavailable | + + + Support + + + + + | Name | Relationship | Address | Phone | + + + + + | Lucy Winchester | ECON | [place], | | | | | [place] [address] | | + + + + + | Kellen Briones | ECON | [place], [place] | | | | | [address] | | + + + + + Care Team Providers + +------+ + | Care Branch Billing Payroll Clerk Name | Role | Phone | + +------+ + | Anna De Guzman PA-C | PCP | | + +------+ + Encounter Details +--------+ + + + + | Date | Type | Department | Care Team | Description | +--------+ + + + + | 05/12/ | Orders Only | [facility] [place] | Ramon Real | Neck pain (Primary | | 2011 | | NEUROSURGERY [address] | F, [address] | Dx) | | | | [address] | [address] [place] | | | | | [place], [place] | [address] | | | | | [address] | [phone] | | | | | [phone] | | | +--------+ + + + [...] | | | | | | [place] [address] | | | | | | [phone] | | | | | | | | +--------+---------+ + + + | 07/30/ | Office | Cardiology | Agata Tinajero DO | | | 2019 | Visit | | [address] | | | | | | [place] | | | | | | [address] | | | | | | | | +--------+---------+ + + + + +---------+--------+ + + | Name | Type | Priori | Associated Diagnoses | Order Schedule | | | | ty | | | + +---------+--------+ + + | XR Cervical Spine 2 | Imaging | Routin | Neck pain | Expected: | | or 3 Vw | | e | | 05/12/2012, Expires: | | | | | | 05/12/2013 | + +---------+--------+ + + documented as of this encounter Visit Diagnoses + + | Diagnosis | + + | Neck pain - Primary Cervicalgia | + + documented in this encounter"
--- OUTSIDE RECORDS SUMMARY | ~2019-05-12 | XMS | Encounter Summary ---
Demographics + + + | Address | [address] | | | [place] [address] | + + + | Home Phone | | + + + | Preferred Language | Unknown | + + + | Marital Status | | + + + | Caodaism Affiliation | 1041 | + + + | Race | Unknown | + + + | Ethnic Group | Unknown | + + + Author + + + | Author | [facility] | | | and [place] | + + + | Organization | [facility] | | | and [place] | + + + | Address | Unknown | + + + | Phone | Unavailable | + + + Support + + + + + | Name | Relationship | Address | Phone | + + + + + | Lucy Winchester | ECON | [place], | | | | | [place] [address] | | + + + + + | Kellen Briones | ECON | [place], [place] | | | | | [address] | | + + + + + Care Team Providers + +------+ + | Care Automotive Porter Name | Role | Phone | + [...] + + | 08/27/ | Telephone | [facility] | Tk Ann | Other | | 2012 | | PHYSIATRY [address] | T, [address] | | | | | [place], | [place], [place] | | | | | [place] [address] | [address] | | | | | [phone] | | | +--------+ + + + [...] | | | | | | [place] [address] | | | | | | [phone] | | | | | | | | +--------+---------+ + + + | 07/30/ | Office | Cardiology | Agata Tinajero DO | | | 2019 | Visit | | [address] | | | | | | [place] | | | | | | [address] | | | | | | | | +--------+---------+ + + + documented as of this encounter Visit Diagnoses Not on filedocumented in this encounter"
--- OUTSIDE RECORDS SUMMARY | ~2019-05-12 | XMS | Encounter Summary ---
Demographics + + + | Address | [address] | | | [place] [address] | + + + | Home Phone [...] [place], | | | | | [place] [address] | | + + + + + | Kellen Briones | ECON | [place], [place] | | | | | [address] | | + + + + + Care Team Providers + +------+ + | Care Lead Welder Name | Role | Phone | + +------+ + | Anna De Guzman PA-C | PCP | | + +------+ + Reason for Visit + + + | Reason | Comments | + + + | Back Pain | bilateral low back | + + + Encounter Details +--------+---------+ + + + | Date | Type | Department | Care Team | Description | +--------+---------+ + + + | 06/19/ | Office | [facility] | [place], | Lumbar radiculopathy | | 2017 | Visit | PHYSIATRY [address] | AYAAN [address] | (Primary Dx); | | | | [place], | [facility] [place] [facility], | Spinal stenosis of | | | | [place] [address] | [place] [address] | lumbar region with | | | | [phone] | [phone] | [id number] | | | | | | level moderately | | | | | | severe; DDD | | | | | | (degenerative disc | | | | | | disease), lumbar; | | | | | | Spondylolisthesis [...] + + + | Blood Pressure | 152/77 | 06/19/2016 11:33 AM | | | | | PST | | + + + + + | Pulse | 83 | 06/19/2016 11:33 AM | | | | | PST | | + + + + + | Temperature | - | - | | + + + + + | Respiratory Rate | 18 | 06/19/2016 11:33 AM | | | | | PST | | + + + + + | Oxygen Saturation | - | - | | + + + + + | Inhaled Oxygen | - | - | | | Concentration | | | | + + + + + | Weight | 64 kg (141 lb) | 06/19/2016 11:33 AM | | | | | PST | | + + + + + | Height | 160 cm (5' 3") | 06/19/2016 11:33 AM | | | | | PST | | + + + + + | Body Mass Index | 24.98 | 06/19/2016 11:33 AM | | | | | PST | | + + + + + documented in this encounter Patient Instructions Patient Instructions Claduia Das PA-C - 06/19/2016 11:51 AM PST1) Epidural injecti on with Dr. Ann Spinal Stenosis: Stenosis refers to the narrowing of the spinal cord. This most often occurs with age and generative changes of the spine. Narrowing of the spinal cord causes compression and inflam mation of nerves in the lower back and can cause numbness, pain, and weakness in the back, b uttocks and legs. You may notice you have more pain with standing and walking. It feels be tter to walk more bent over at the waist, while pushing a grocery cart or walker. You get r elief with sitting down. Treatment includes pain medicine, gabapentin, transforaminal epidu ral steroid injections to help reduce swelling, physical therapy and surgery. Steroids are a very strong anti-inflammatory, this helps reduce pain by reducing swelling. Complications of steroids are bleeding, infection, and an increase of blood sugars if you are diabetic. oysterman risk can lead to osteoporosis which is why we limited the number of injections to 3 times per year. Epidural injections target the spinal stenosis by putting the steroid around the nerves that come out of the spine with hopes the steroid gets into t he region of the stenosis. The procedure is about 20 minutes long. You will lie on your bety k while x-rays are taken. Once the region is marked, it is numbed and then injected with st eroids. Follow-up at the hospital thirty minutes before [...] of the procedure you must provide a trailer tank truck driver to take you home. For all procedur es it is recommended that someone else drive you home. documented in this encounter Progress Notes Claudia Das PA-C - 06/19/2016 11:30 AM PSTFormatting of this note might be differe nt from the original. CHIEF COMPLAINT: Chief Complaint Patient presents with Back Pain bilateral low back HISTORY OF PRESENT ILLNESS: The patient is a 76 y.o. female being seen today in follow-up for complaints of low back pa in. The patient has been seen for this complaint in the past. Previously it was recommend ed that she receive bilateral L5/S1 TFESI for spinal stenosis. Her last injection was 2015. She reports that the treatment was effective for approximately 3 months. The patient reports overall her symptoms are worsening. She rates the pain as 9 on scale of 1-10. She describes the pain as a twisting sensation to her low back and an aching pain into both leg s, sharp at times. Her symptoms worsen with standing and prolonged walking. Her symptoms i mprove with lying down, sitting down and medication use. She walks with a walker. The patie nt does not describe numbness of the bilateral lower extremities. She does not report weak ness of the bilateral lower extremities. The patient does not report recent falls or trauma . She does not have bowel and bladder dysfunction. She does not have saddle anesthesia. Treatments for these complaints have included prior steroid injections, physical therapy, c hiropractics therapy and narcotic medications use; she currently uses [employer], Flexeril and ga bapentin. She just underwent a cervical fusion with Dr. Becerril. Patient's medications, allergies, past medical, surgical, social [...] No abnormal bleeding PHYSICAL EXAMINATION: Filed Vitals: 06/19/16 1133 BP: 152/77 Pulse: 83 Resp: 18 PainSc: 9 PainLoc: Back Body mass index is 24.98 kg/(m^2). GENERAL: The patient is well developed [...] multilevel facet arthritis. ASSESSMENT: 1. Lumbar radiculopathy 2. Spinal stenosis of lumbar region with pyhoiprxxdhej-P6-O9 level moderately severe 3. DDD (degenerative disc disease), lumbar 4. Spondylolisthesis of lumbar region 5. 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 The patient has benefited from prior epidural injections and is hoping to receive addit ional injections. I did feel that was appropriate and I offered to repeat the bilateral L5- S1 transforaminal epidural steroid injections. This will be performed by Dr. Ann in t he near future. 2. I did not make any changes in her medications today. 3. She will follow up PRN ELECTRONICALLY SIGNED BY: Claudia Das PA-C, 06/19/2016 documented in this encounter Plan of Treatment [...] | | | | | | [place] [address] | | | | | | [phone] | | | | | | | | +--------+---------+ + + + | 07/30/ | Office | Cardiology | Agata Tinajero DO | | | 2019 | Visit | | [address] | | | | | | [place] | | | | | | [address] | | | | | | | | +--------+---------+ + + + documented as of this encounter Results FL BAUTISTA Lumbar Transforaminal (06/27/2016 2:59 PM PST) + + | Specimen | + + | | + + + + + | Narrative | Performed At | + + + | 06/27/2016 Bilateral Transforaminal Epidural Steroid Injections | [facility]BILE | | Diagnosis: Lumbar radiculopathy ICD-10 Code M54.16 Clementine | [facility] | | Lizett Winchester presents to the fluoroscopy suite for [facility] | | fluoroscopically-guided bilateral L5-S1 transforaminal [...] | + + + + + | [facility] | [address] | [place] | [phone] | | [facility] | | [address] | | | - IMAGING | | | | + + + + + documented in this encounter Visit Diagnoses + + | Diagnosis | + + | Lumbar radiculopathy - Primary Thoracic or lumbosacral neuritis or radiculitis, | | unspecified | + + | Spinal stenosis of lumbar region with fbiwuqehqtjmm-Z6-W6 level moderately severe | | Spinal stenosis, lumbar region, without neurogenic claudication | + + | DDD (degenerative disc disease), lumbar Degeneration of lumbar or lumbosacral | | intervertebral disc | + + | Spondylolisthesis of lumbar region Acquired spondylolisthesis | + + | Facet arthritis of lumbar region-Most severe at L4-L5,L5-S1 Lumbosacral spondylosis | | without myelopathy | + + documented in this encounter
--- OUTSIDE RECORDS SUMMARY | ~2019-05-12 | XMS | Clinical Summary ---
Demographics + + + | Address | [address] | | | [place] [address] | + + + | Home Phone | | + + + | Preferred Language | Unknown | + + + | Marital Status | | + + + | Jewish Affiliation | 1041 | + + + | Race | Unknown | + + + | Ethnic Group | Unknown | + + + Author + + + | Author | [facility] | | | and [place] | + + + | Organization | [facility] | | [...] [place], | | | | | [place] [address] | | + + + + + | Kellen Briones | ECON | [place] | | | | | [address] | | + + + + + Care Team Providers + +------+ + | Care Manager Night Name | Role | Phone | + +------+ + | Barb Marte | THANG | | + +------+ + Allergies + + + + + + | Active Allergy | Reactions | Severity | Noted | Comments | | | | | Date | | + + + + + + | Capsaicin | Rash | Medium | 12/19/19 | Muscle relaxers | | | | | 19 | can only take 0.5 | | | | | | tablet when taking. | + + + + + + | Adhesive & Tape | Rash | Low | | | + + + + + + | Tizanidine Hcl | Other (See Comments) | Low | 10/02/19 | Pt states it | | | | | 13 | affected her balance | | | | | | and made her feel | | | | | | like she was in a | | | | | | fog. | + + + + + + Medications + + + +---------+------+------+-------+ | Medication | Sig | Dispensed | Refills | Star | End | Statu | | | | | | t | Date | s | | | | | | Date | | | + + + +---------+------+------+-------+ | metFORMIN | Take 500 mg by mouth | | 0 | | | Activ | | (GLUCOPHAGE) 500 mg | nightly. | | | | | e | | tablet | | | | | | | + + + +---------+------+------+-------+ | benzonatate | Take 200 mg by mouth | | 0 | | | Activ | | (TESSALON) 200 MG | as needed. | | | | | e | | capsule | | | | | | | + + + +---------+------+------+-------+ | nitroglycerin | Place 0.4 mg under | | 0 | | | Activ | | (NITROSTAT) 0.4 mg | the tongue every 5 | | | | | e | | SL tablet | minutes as needed. | | | | | | + + + +---------+------+------+-------+ | magnesium, as | Take 250 mg by mouth | | 0 | | | Activ | | oxide, 250 MG tablet | Daily. | | | | | e | + + + +---------+------+------+-------+ | levothyroxine | Take 25 mcg by mouth | | 5 | 07/1 | | Activ | | (SYNTHROID) 25 mcg | Daily. | | | 06/22 | | e | | tablet | | | | 18 | | | + + + +---------+------+------+-------+ | atorvaSTATin | Take 40 mg by mouth | | 0 | 08/2 | | Activ | | (LIPITOR) 40 mg | nightly. | | | 01/20 | | e | | tablet | | | | 18 | | | + + + +---------+------+------+-------+ | fentaNYL | APPLY 1 PATCH TO THE | | 0 | 09/0 | | Activ | | (DURAGESIC) 25 | SKIN Q 3 DAYS | | | 6/20 | | e | | mcg/hr | | | | 18 | | | + + + +---------+------+------+-------+ | gabapentin | Take 100 mg by mouth | | 1 | 09/0 | | Activ | | (NEURONTIN) 100 mg | 2 times daily. | | | 6/20 | | e | | capsule | | | | 18 | | | + + + +---------+------+------+-------+ | omeprazole | Take 40 mg by mouth | | 2 | 09/0 | | Activ | | (PRILOSEC) 40 MG | Daily. | | | 4/20 | | e | | capsule | | | | 18 | | | + + + +---------+------+------+-------+ | albuterol | Take 1 puff by mouth | | 0 | 08/1 | | Activ | | (VENTOLIN HFA) 90 | as needed. | | | 10/20 | | e | | mcg/puff inhaler | | | | 18 | | | + + + +---------+------+------+-------+ | DULoxetine | TK ONE C PO QD | | 3 | 07/05 | | Activ | | (CYMBALTA) [address] | | | | 0 | | e | | capsule | | | | 19 | | | + + + +---------+------+------+-------+ | potassium chloride | Take 10 mEq by | | 0 | 12/01 | 12/01 | Activ | | (KLOR-CON) 10 MEQ | mouth. | | | 01/20 | 12/20 | e | | ER tablet | | | | 19 | 20 | | + + + +---------+------+------+-------+ | furosemide (LASIX) | Take 20 mg by mouth. | | 0 | 07/1 | 12/01 | Activ | | 20 mg tablet | | | | 8 | 12/20 | e | | | | | | 19 | 20 | | + + + +---------+------+------+-------+ | cyanocobalamin | Take by mouth | | 0 | | | Activ | | (VITAMIN B-12) 100 | Daily. | | | | | e | | MCG TABS | | | | | | | + + + +---------+------+------+-------+ | lisinopril | Take 1 tablet by | 90 | 3 | 10/3 | | Activ | | (PRINIVIL, ZESTRIL) | mouth Daily. | tablet | | 1/20 | | e | | 5 mg tablet | | | | 19 | | | + + + +---------+------+------+-------+ Active Problems + + + | Problem | Noted Date | + + + | Chronic pain syndrome | 01/31/2018 | + + + | H/O Syncope & collape | 03/30/2016 | + + + | H/O CVA/stroke | 03/30/2016 | + + + | H/O [place] (myocardial infarction) | 03/30/2016 | + + + | H/O Breast cancer - Right | 03/30/2016 | + + + | Oxygen dependent - 2 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 | 03/30/2016 | + + + | Adverse effect of anesthesia - trouble urinating after anesthesia | 03/30/2016 | + + + | H/O Hysterectomy | 03/30/2016 | + + + | H/O CABG (coronary artery bypass graft) | 03/30/2016 | + + + | H/O Hypokalemia (taking diuretics) | 03/30/2016 | + + + | Neck pain on right side | 05/13/2013 | + + + | Facet arthritis of cervical region | 05/13/2013 | + + + | DDD (degenerative disc disease), cervical | 05/13/2013 | + + + | Lumbar radiculopathy | 07/23/2012 | + + + | DDD (degenerative disc disease), lumbar | 07/23/2012 | + + + | Spinal stenosis of lumbar region with kzkhcphdzqrpd-Y5-S8 level | 07/23/2012 | | moderately severe | | + + + | Facet arthritis of lumbar region-Most severe at L4-L5,L5-S1 | 07/23/2012 | + + + | Cervical stenosis of spinal canal | 06/04/2012 | + + + | Spondylolisthesis of cervical region | 06/04/2012 | + + + | Arthritis | 06/04/2012 | + + + | Leg pain, bilateral | 06/04/2012 | + + + | Lumbago | 06/04/2012 | + + + | Trochanteric bursitis of right hip | 06/04/2012 | + + + | Right hip pain | 06/04/2012 | + + + | Stroke of unknown etiology | 06/04/2012 | + + + | Spondylolisthesis of lumbar region | 06/04/2012 | + + + | Coronary atherosclerosis | | + + + | Diabetes mellitus - ORAL Control | | + + + | Hypertension | | + + + | Stroke | | + + + | Syncope and collapse | | + + + | Cancer | | + + + + + | Overview: Breast | + + + +---+ | Hyperlipidemia | | + +---+ | [place] (myocardial infarction) | | + +---+ | GERD (gastroesophageal reflux disease) | | + +---+ | Asthma | | + +---+ | Snoring | | + +---+ | Chronic narcotic use | | + +---+ Encounters +--------+ + + + + | Date | Type | Specialty | Care Team | Description | +--------+ + + + + | 04/21/ | Telephone | Orthopedic Surgery | Monster White MD | Follow-up | | 2018 | | | | (appointment) | +--------+ + + + + | 04/09/ | Hospital | Radiology | Monster White MD | Lumbar stenosis with | | 2018 | Encounter | |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 | | | | | | claudication | +--------+ + + + + | 04/09/ | Hospital | Radiology | Monster White MD | | | 2018 | Encounter | | | | +--------+ + + + + | 04/09/ | Hospital | Radiology | Monster White MD | | | 2019 | Encounter | | | | +--------+ + + + + | 04/02/ | Office | Cardiology | Agata Tinajero DO | Atherosclerosis of | | 2018 | Visit | | | nondalton coronary | | | | | | artery of nondalton | | | | | | heart without angina | | | | | | pectoris (Primary | | | | | | Dx); Essential | | | | | | [...] | | | artery bypass graft) | +--------+ + + + + | 03/27/ | Telephone | Orthopedic Surgery | Monster White MD | Imaging | | 2018 | | | | | +--------+ + + + + | 03/19/ | Office | Orthopedic Surgery | Monster White MD | Lumbar stenosis with | | 2018 | Visit | |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 | | | | | | claudication | | | | | | (Primary Dx); | | | | | | 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 | +--------+ + + + + | 02/17/ | Hospital | Radiology | Agata Tinajero DO | | | 2018 | Encounter | | | | +--------+ + + + + | 02/16/ | Hospital | Radiology | Agata Tinajero DO | Hx of CABG | | 2018 | Encounter | | | | +--------+ + + + + from Last 3 Months Family History + + +------+ + | Medical History | Relation | Name | Comments | + + +------+ + | Migraines | Daughter | | | + + +------+ + | Other (see comment) | Daughter | | Depression | + + +------+ + | Arthritis | Daughter | | | + + +------+ + | COPD | Daughter | | | + + +------+ + | High blood pressure | Daughter | | | + + +------+ + | Hypertension | Daughter | | | + + +------+ + | Other (see comment) | Daughter | | snores | + + +------+ + | Alcohol abuse | Father | | | + + +------+ + | Heart disease | Father | | | + + +------+ + | Arthritis | Mother | | | + + +------+ + | Cancer | Mother | | | + + +------+ + | Heart disease | Mother | | | + + +------+ + | Hypertension | Mother | | | + + +------+ + | Migraines | Son | | | + + +------+ + | Other (see comment) | Son | | Seizure disorder, snores | + + +------+ + + +------+ + + | Relation | Name | Status | Comments | + +------+ + + | Daughter | | | Unknown | | | | (Age | | | | | 44) | | + +------+ + + | Daughter | | Alive | | + +------+ + + | Father | | | heart attack | | | | (Age | | | | | 69) | | + +------+ + + | Mother | | | liver cancer | | | | (Age | | | | | 72) | | + +------+ + + | Sister | | Alive | | + +------+ + + | Son | | | | + +------+ + + Social History + +-------+ +--------+------+ [...] | + + Last Filed Vital Signs + + + [...] | | + + + + + Plan of Treatment +--------+---------+ + + + | Date | Type | Specialty | Care Team | Description | +--------+---------+ + + + | 06/04/ | Office | Orthopedic Surgery | Monster White MD | | | 2020 | Visit | | [address] [facility] [address] | | | | | | [place], | | | | | | [place] [address] | | | | | | [phone] | | | | | | | | +--------+---------+ + + + | 07/30/ | Office | Cardiology | Agata Tinajero DO | | | 2019 | Visit | | [address] | | | | | | [place] | | | | | | [address] | | | | | | | | +--------+---------+ + + + + + + + + | Health Maintenance | Due Date | Last Done | Comments | + + + + + | Diabetic Eye Exam | | | | | | 0 | | | + + + + + | Diabetic Foot Exam | | | | | | 0 | | | + + + + + | Vaccine: | | | | | Dtap/Tdap/Td (1 - | 1 | | | | Tdap) | | | | + + + + + | Vaccine: Zoster (1 | | | | | of 2) | 2 | | | + + + + + | Vaccine: | | | | | Pneumococcal 65+ (1 | 7 | | | | of 2 - PCV13) | | | | + + + + + | Adult Annual | | | | | Wellness Visit | 5 | | | + + + + + | Hemoglobin A1c | | 02/02/2018 | | | Screening | 8 | | | + + + + + | Vaccine: Influenza | | | | | (#1) | 9 | | | + + + + + | Breast Cancer | | 01/03/2018, 10/27/2015, | | | Screening | 0 | 04/27/2013, Additional history | | | | | exists | | + + + + + Implants + +--------+--------+ +--------+--------+--------+ | Implanted | Type | Area | Manufacture | Device | Shelf | Model | | | | | r | | Expira | / | | | | | | Identi | tion | Serial | | | | | | fier | Date | / Lot | + +--------+--------+ +--------+--------+--------+ | Cage Funmilayo Ptc [id number] - | Generi | Anteri | [employer] - | | 10/20/ | [id number] | | [id number]: Qty: 1 on | c | or: | MEDT | | 2023 | 4 / | | 03/30/2016 by Irving Becerril | | Spine | | | | /[id number] | | DO Chloe at [facility] | | Cervic | | | | | | [facility] | | al | | | | | + +--------+--------+ +--------+--------+--------+ | Cage Funmil[employer]o Ptc [id number] - | Generi | Anteri | [employer] - | | 01/03/ | [id number] | | [id number]: Qty: 1 on | c | or: | MEDT | | 2022 | 4 / | | 03/30/2016 by Irving Becerril | | Spine | | | | /[id number] | | DO Chloe at [facility] | | Cervic | | | | | | [facility] | | al | | | | | + +--------+--------+ +--------+--------+--------+ | Cage Fun[employer]o Ptc [id number] - | Generi | Anteri | [employer] - | | 10/20/ | [id number] | | [id number]: Qty: 1 on | c | or: | MEDT | | 2023 | 4 / | | 03/30/2016 by Irving Becerril | | Spine | | | | /[id number] | | A, DO at [facility] | | Cervic | | | | | | [facility] | | al | | | | | + +--------+--------+ +--------+--------+--------+ | Cage Funmil[employer]o Ptc [id number] - | Generi | Anteri | [employer] - | | 10/20/ | [id number] | | [id number]: Qty: 1 on | c | or: | MEDT | | 2023 | 4 / | | 03/30/2016 by Irving Becerril | | Spine | | | | /[id number] | | A, DO at [facility] | | Cervic | | | | | | [facility] | | al | | | | | + +--------+--------+ +--------+--------+--------+ | Putty Bone Db Grftn 2.5cc - | Graft | Anteri | [employer] - | | 06/30/ | [id number] | | [id number]: Qty: 1 | | or: | MEDT | | 2018 | | | on 03/30/2016 by Jerrica, | | Spine | | | | /[id number] | | Irving Corona DO at [facility] | | Cervic | | | | 6-016 | | [facility] | | al | | | | / | + +--------+--------+ +--------+--------+--------+ | Plate Ant [place] Cerv 75mm | Plate | Anteri | [employer] - | | | [id number] | | - [id number]: Qty: 1 | | or: | MEDT | | | / | | on 03/30/2016 by Jerrica, | | Spine | | | | | | Irving Corona DO at [facility] | | Cervic | | | | | | [facility] | | al | | | | | + +--------+--------+ +--------+--------+--------+ | Screw Slf-Drl V/A 4.0x16mm - | Screw | Anteri | [employer]OR | | | [id number] | | [id number]: Qty: 5 on | | or: | ANGELEK - DIV | | | / | | 03/30/2016 by Irving Becerril | | Spine | [employer] | | | | | DO Chloe at [facility] | | Cervic | - [facility] | | | | | [facility] | | al | | | | | + +--------+--------+ +--------+--------+--------+ | Screw Slf-Drl V/A 4.0x17mm - | Screw | Anteri | [facility]OR | | | [id number] | | [id number]: Qty: 4 on | | or: | DANEK - DIV | | | | | 03/30/2016 by Irving Becerril | | Spine | [employer] | | | | | A, DO at [facility] | | [facility] | - [facility] | | | | | [facility] | | al | | | | | + +--------+--------+ +--------+--------+--------+ | Screw Slf-Dr V/A 4.5x15mm - | Screw | Anteri | [employer] - | | | [id number] | | [id number]: Qty: 1 on | | or: | MEDT | | | | | 03/30/2016 by Irving Becerril | | Spine | | | | | | A, DO at [facility] | | [facility] | | | | | | [facility] | | al | | | | | + +--------+--------+ +--------+--------+--------+ Procedures + +--------+ + + + | [...] section. | + +--------+ + + + from Last 3 Months Results XR Lumbar Spine 4 + Vw [...] | | | + +---------+ + + CT Lumbar Spine wo Contrast (04/09/2019 2:06 [...] CT imaging was obtained through the | [facility] | | lumbar spine with coronal [...] effects the | | right side at L1-O8gumtl it is severe and bilaterally at L5-S1 [...] | | | + +---------+ + + [place] Nuclear Stress Test (Vasodilator) (02/17/2019 1:28 [...] | | | + +---------+ + + from Last 3 Months Insurance + +--------+ +--------+ +---------+--------+ | Payer | Benefi | Subscriber | Effect | Phone | Address | Type | | | t Plan | ID | freddie | | | | | | / | | Dates | | | | | | Group | | | | | | + +--------+ +--------+ +---------+--------+ | AARP | AARP | [id number] | 06/03/19 | [phone] | | Indemn | | | MDCR | | 19-Pre | 0 | | ity | | | SUPPL | | sent | | | | + +--------+ +--------+ +---------+--------+ | | [employer] | [id number] | | [phone] | | Indemn | | | A | | 997-Pr | 7 | | ity | | | | | esent | | | | + +--------+ +--------+ +---------+--------+ | MEDICARE | MEDICA | [id number] | | [phone] | | Medica | | | RE | | 007-Pr | 5 | | re | | | PART A | | esent | | | | | | AND B | | | | | | + +--------+ +--------+ +---------+--------+ | MEDICARE | MEDICA | [id number] | | [phone] | | Medica | | | RE | | 012-Pr | 5 | | re | | | PART A | | esent | | | | | | AND B | | | | | | + +--------+ +--------+ +---------+--------+ | AARP | AARP | [id number] | 06/03/19 | [phone] | | Indemn | | | MDCR | | 19-Pre | 0 | | ity | | | SUPPL | | sent | | | | + +--------+ +--------+ +---------+--------+ | | [employer]AM[employer] | [id number] | | [phone] | | Indemn | | | A | | 997-Pr | 7 | | ity | | | | | esent | | | | + +--------+ +--------+ +---------+--------+ + +--------+ +--------+ + + | Guarantor Name | Accoun | Relation to | Date | Phone | Billing Address | | | t Type | Patient | of | | | | | | | | | | + +--------+ +--------+ + + | Clementine Winchester | Person | Self | [birth year] | | [address] | | | al/Fam | | 1940 | [phone] | [place], [place] | | | am[place]uel | | | 6 (Home) | [address] | + +--------+ +--------+ + + | Clementine Winchester | Person | Self | [birth year] | [address] | | | al/Fam | | 1940 | [phone] | [place], [place] | | | [place] | | | 6 (Home) | [address] | | | | | | [phone] | | | | | | | 3 (Work) | | + +--------+ +--------+ + + Advance Directives + + + + + | Type | Date Recorded | Patient | Explanation | | | | 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
--- OUTSIDE RECORDS SUMMARY | ~2019-05-12 | XMS | Encounter Summary ---
Demographics + + + | Address | [address] | | | [place] [address] | + + + | Home Phone | | + + + | Preferred Language | Unknown | + + + | Marital Status | | + + + | Congregational Affiliation | 1041 | + + + [...] [place], | | | | | [place] [address] | | + + + + + | Kellen Broines | ECON | [place], [place] | | | | | [address] | | + + + + + Care Team Providers + +------+ + | Care Copper Tapper Name | Role | Phone | + +------+ + | Anna De Guzman PA-C | PCP | | + +------+ + Reason for Visit +--------+ + | Reason | Comments | +--------+ + | Other | Reschedule injection | +--------+ + Encounter Details +--------+ + + + + | Date | Type | Department | Care Team | Description | +--------+ + + + + | 03/05/ | Telephone | [facility] | Tk Ann | Other (Reschedule | | 2012 | | PHYSIATRY [address] | TMD [address] | injection) | | | | [place], | [place], [place] | | | | | [place] [address] | [address] | | | | | [phone] | | | +--------+ + + + [...] | | | | | | [place] [address] | | | | | | [phone] | | | | | | | | +--------+---------+ + + + | 07/30/ | Office | Cardiology | Agata Tinajero DO | | | 2019 | Visit | | [address] | | | | | | [place] | | | | | | [address] | | | | | | | | +--------+---------+ + + + documented as of this encounter Visit Diagnoses Not on filedocumented in this encounter"
--- OUTSIDE RECORDS SUMMARY | ~2019-05-12 | XMS | Encounter Summary ---
Demographics + + + | Address | [address] | | | [place] [address] | + + + | Home Phone | | + + + | Preferred Language | Unknown | + + + | Marital Status | | + + + | Advent Affiliation | 1041 | + + + | Race | Unknown | + + + | Ethnic Group | Unknown | + + + Author + + + | Author | [facility] | | | and [place] | + + + | Organization | [facility] | | | and [place] | + + + | Address | Unknown | + + + | Phone | Unavailable | + + + Support + + + + + | Name | Relationship | Address | Phone | + + + + + | Lucy Winchester | ECON | [place], | | | | | [place] [address] | | + + + + + | Kellen Briones | ECON | [place], [place] | | | | | [address] | | + + + + + Care Team Providers + +------+ + | Care Clay Pigeon Loader Name | Role | Phone | + [...] Lumbar | NARESH Villareal-C | [address] | | | | | radiculopath | [address] | [place], | | | | | y | [address] | [place] | | | | | Procedures | [address] | [address] | | | | | MRI Lumbar | [place], | Phone: | | | | | Spine wo | [place] [address] | [phone] | | | | | Contrast | Phone: | Fax: | | | | | | [phone] | [phone] | | | | | | Fax: | | | | | | | [phone] | | +--------+--------+ + + + + [...] Lumbar | AYAAN Villareal | [address] | | | | | radiculopath | [address] | [place], | | | | | y | [address] | [place] | | | | | Procedures | [address] | [address] | | | | | MRI Lumbar | [place], | Phone: | | | | | Spine wo | [place] [address] | [phone] | | | | | Contrast | Phone: | Fax: | | | | | | [phone] | [phone] | | | | | | Fax: | | | | | | | [phone] | | +--------+--------+ + + + + Encounter Details +--------+ + + + + | Date | Type | Department | Care Team | Description | +--------+ + + + + | 01/22/ | Hospital | [facility] | Mono Diaz, | Lumbar radiculopathy | | 2018 | Encounter | MED CTR MRI [address] | PA-C [address] | | | | | [place], | [address] [place] | | | | | [place] [address] | [place] [address] | | | | | [phone] | [phone] | | | | | | | [...] | 2019 | Visit | | [address] | | | | | | [place], | | | | | | [place] [address] | | | | | | [phone] | | | | | | | | +--------+---------+ + + + | 07/30/ | Office | Cardiology | Agata Tinajero DO | | | 2020 | Visit | | [address] | | | | | | [place] | | | | | | [address] | | | | | | | [...] L4 nerve root along with the descending B1ftwop | | roots within the subarticular recesses.L5-S1: Moderate to severe disc space narrowing | | and generalized disc osteophytecomplex combine with dorsal ligamentous and facet | | hypertrophy to moderatelynarrow the foramina to a similar degree, with encroachment on | | the exiting [id number] roots along with the descending S1 nerve [...] DISEASE AND | | MILD ANTEROLISTHESIS AT [id number] MILD STENOSIS.7. LEVOSCOLIOSIS AND MULTILEVEL FACET | [...]
--- OUTSIDE RECORDS SUMMARY | ~2019-05-12 | XMS | Encounter Summary ---
Demographics + + + | Address | [address] | | | [place] [address] | + + + | Home Phone | | + + + | Preferred Language | Unknown | + + + | Marital Status | Unknown | + + + | Mandaen Affiliation | Unknown | + + + | Race | Unknown | + + + | Ethnic Group | Unknown | + + + Author + + + | Author | [facility] | + + + | Organization | [facility] | + + + | Address | Unknown | + + + | Phone | Unavailable | + + + Care Team Providers + +------+ + | Care Hearing Screener Name | Role | Phone | + [...] [address] | | | | | | [place], [place] | | | | | | [address] | | | +--------+ + + + [...]
--- OUTSIDE RECORDS SUMMARY | ~2019-05-12 | XMS | Encounter Summary ---
Demographics + + + | Address | [address] | | | [place] [address] | + + + | Home Phone [...] [place], | | | | | [place] [address] | | + + + + + | Kellen Briones | ECON | [place], [place] | | | | | [address] | | + + + + + Care Team Providers + +------+ + | Care Product Safety Test Engineer Name | Role | Phone | + +------+ + | Anna De Guzman PA-C | PCP | | + +------+ + Reason for Visit + + + | Reason | Comments | + + + | Records Request | CARDIOLOGY CLEARANCE | + + + Encounter Details +--------+ + + + + | Date | Type | Department | Care Team | Description | +--------+ + + + + | 12/23/ | Telephone | [facility] | Gonzalo Mathew MD | Records Request | | 2014 | | NEUROSURGERY [address] | [address] | (CARDIOLOGY | | | | [address] | [place] [address] | CLEARANCE) | | | | [place] | [phone] | | | | | [address] | | | | | | [phone] | | | +--------+ + + + [...] [address] | | | | | | [place] | | | | | | [place] [address] | | | | | | [phone] | | | | | | | | +--------+---------+ + + + | 07/30/ | Office | Cardiology | Agata Tinajero DO | | | 2019 | Visit | | [address] | | | | | | [place] | | | | | | [address] | | | | | | | | +--------+---------+ + + + documented as of this encounter Visit Diagnoses Not on filedocumented in this encounter"
--- OUTSIDE RECORDS SUMMARY | ~2019-05-12 | XMS | Encounter Summary ---
Demographics + + + | Address | [address] | | | [place] [address] | + + + | Home Phone [...] [place], | | | | | [place] [address] | | + + + + + | Kellen Briones | ECON | [place], [place] | | | | | [address] | | + + + + + Care Team Providers + +------+ + | Care Director Professional Services Name | Role | Phone | + [...] + + | 05/07/ | Telephone | [facility] | Irving Becerril, | Paperwork | | 2016 | | NEUROSURGERY [address] | DO [address] | | | | | [address] | [address] [place], [place] | | | | | [place], [place] | [id number] | | | | | [address] | | | | | | [phone] | | | +--------+ + + + [...] | | | | | | [place] [address] | | | | | | [phone] | | | | | | | | +--------+---------+ + + + | 07/30/ | Office | Cardiology | Agata Tinajero DO | | | 2019 | Visit | | [address] | | | | | | [place] | | | | | | [address] | | | | | | | | +--------+---------+ + + + documented as of this encounter Visit Diagnoses Not on filedocumented in this encounter"
--- OUTSIDE RECORDS SUMMARY | ~2019-05-12 | XMS | Encounter Summary ---
Demographics + + + | Address | [address] | | | [place] [address] | + + + | Home Phone [...] [place], | | | | | [place] [address] | | + + + + + | Kellen Briones | ECON | [place], [place] | | | | | [address] | | + + + + + Care Team Providers + +------+ + | Care Ship Ceiler Name | Role | Phone | + +------+ + | Anna De Guzman PA-C | PCP | | + +------+ + Reason for Visit +--------+ + | Reason | Comments | +--------+ + | Other | States has been sleeping well and also taking a nap. Minimal | | | headaches. States she hasn't had any spells of LOC. | +--------+ + Encounter Details +--------+---------+ + + + | Date | Type | Department | Care Team | Description | +--------+---------+ + + + | 11/04/ | Office | [facility] | Patrick Gaffeny MD [address] | Transient loss of | | 2012 | Visit [facility] | [address] | consciousness | | | | [address] [facility], | [address], | (Primary Dx) | | | | [address] [place] | [place] [address] | | | | | [place] [address] | [phone] | | | | | [phone] | | | +--------+---------+ + + + [...] + + + | Blood Pressure | 92/50 | 11/04/2012 12:59 PM | | | | | PDT | | + + + + + | Pulse | 68 | 11/04/2012 12:59 PM | | | | | PDT | | + + + + + | Temperature | - | - | | + + + + + | Respiratory Rate | 20 | 11/04/2012 12:59 PM | | | | | PDT | | + + + + + | Oxygen Saturation | 92% | 11/04/2012 12:59 PM | room air | | | | PDT | | + + + + + | Inhaled Oxygen | - | - | | | Concentration | | | | + + + + + | Weight | 73.9 kg (163 lb) | 11/04/2012 12:59 PM | | | | | PDT | | + + + + + | Height | - | - | | + + + + + | Body Mass Index | 29.34 | 09/16/2012 10:25 AM | | | | | PDT | | + + + + + documented in this encounter Progress Notes Patrick Gaffney MD - 11/04/2012 5:06 PM PDTFormatting of this note might be different from the o riginal. Neurology Clinic Follow Up Note PCP: Anna Draper MD Date of Encounter: 11/04/2012 Subjective: Clementine Winchester is a pleasant 72 y.o. female who presents to the clinic today for evaluation of episodes of decreased responsiveness. For the past 2 months she has not had an episode of loss of consciousness. She stopped antelmo ing Zanaflex. She also takes one-hour nap early in the afternoon. She saw Dr. Grier, who f elt she might have sleep apnea and has recommended a sleep study. However patient does not want to go for the study. She otherwise does not have other complaints. Allergies Allergies Allergen Reactions Tizanidine Hcl Other (See Comments) Pt states it affected her balance and made her feel like she was in a fog. Tape (Adhesive & Tape) Rash Medications Current Outpatient Prescriptions on File Prior to Visit Medication Sig Dispense Refill amLODIPine (NORVASC) 5 [...] tablet Take 20 mg by mouth nightly. Family history, social history and past medical history were reviewed and did not change si nce last visit. Review of Systems In addition to HPI, a comprehensive ROS also revealed: Back pain. Objective: BP 92/50 | Pulse 68 | Resp 20 | Wt 73.936 kg (163 lb) | SpO2 92% | ? No WDWN, NAD. Awake, alert, oriented x3. Cooperative and appropirate during the encounter. Speech is mary r, fluent and coherent. Gait steady. Assessment: Episodes of decreased responsiveness - Previous workup of MRI, MRA, and two EEGs were unremarkable. Most likely she fell into s leep. The spells are improved or resolved after discontinuation of Zanaflex and scheduled n ap in the afternoon. She will continue with current management and give me a call if she perez s any other questions. This is a 15 minutes encounter, with over half of the time spent on counseling and coordina tion of care issues. Cc: Anna Draper MD Nancy Rust RN - 09/2012 1:28 PM RKC1983: BP recheck 110/70. documented in this e ncounter Plan of [...] | | | | | | [place] [address] | | | | | | [phone] | | | | | | | | +--------+---------+ + + + | 07/30/ | Office | Cardiology | Agata Tinajero DO | | | 2019 | Visit | | [address] | | | | | | [place] | | | | | | [address] | | | | | | | | +--------+---------+ + + + documented as of this encounter Visit Diagnoses + + | Diagnosis | + + | Transient loss of consciousness - Primary Syncope and collapse | + + documented in this encounter"
--- OUTSIDE RECORDS SUMMARY | ~2019-05-12 | XMS | Encounter Summary ---
Demographics + + + | Address | [address] | | | [place] [address] | + + + | Home Phone [...] [place], | | | | | [place] [address] | | + + + + + | Kellen Briones | ECON | [place], [place] | | | | | [address] | | + + + + + Care Team Providers + +------+ + | Care Senior Computer Specialist Name | Role | Phone | + +------+ + | Anna De Guzman PA-C | PCP | | + +------+ + Reason for Visit + + + | Reason | Comments | + + + | Back Pain | low back pain radiating down bilateral legs | + + + Encounter Details +--------+---------+ + + + | Date | Type | Department | Care Team | Description | +--------+---------+ + + + | 01/26/ | Office | [facility] | [place], | Spinal stenosis of | | 2014 | Visit | PHYSIATRY [address] | [place] [address] | lumbar region with | | | | [place], | [place], | [id number] | | | | [place] [address] | [place] [address] | level moderately | | | | [phone] | [phone] | severe (Primary Dx); | | | | | | Spondylolisthesis | | | | | | of lumbar region; | | | | | | Lumbar | | | | | | radiculopathy; DDD | | | | | | (degenerative disc | | | | | | disease), lumbar; | | | | | | Neck pain on right | | | | | | side; DDD | | | | | | (degenerative disc | | | | | | disease), cervical; | | | | | | Facet [...] + + + | Blood Pressure | 120/53 | 01/26/2015 1:45 PM | | | | | PDT | | + + + + + | Pulse | 82 | 01/26/2015 1:45 PM | | | | | PDT [...] Weight | 69.4 kg (153 lb) | 01/26/2015 1:45 PM | | | | | PDT | | + + + + + | Height | 160 cm (5' 3") | 01/26/2015 1:45 PM | | | | | PDT | | + + + + + | Body Mass Index | 27.1 | 01/26/2015 1:45 PM | | | | | PDT | | + + + + + documented in this encounter Patient Instructions Patient Instructions Claudia Das PA-C - 01/26/2015 2:07 PM PDTLumbar TFESI and th en two weeks later cervical facet injection Follow-up at the hospital thirty minutes before [...] of the procedure you must provide a racecar driver to take you home. For all procedur es it is recommended that someone else drive you home. documented in this encounter Progress Notes Claudia Das PA-C - 01/26/2015 5:01 PM PDTFormatting of this note might be differe nt from the original. CHIEF COMPLAINT: Chief Complaint Patient presents with Back Pain low back pain radiating down bilateral legs HISTORY OF PRESENT ILLNESS: The patient is a 74 y.o. female being seen today in follow-up for complaints of low back pa in. The patient has been seen for this complaint in the past. Previously it was recommend ed that she receive bilateral L5/S1 TFESI for spinal stenosis. Her last injection was in [facility] of this year. She reports that the treatment was effective for approximately 1 months. 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 The patient reports overall her symptoms are worsening. She rates the pain as 7 on scale o f 1-10. She describes the pain as a twisting sensation to her low back and an aching pain i nto both legs, sharp at times. Her symptoms [...] and narcotic medications use; she currently uses Remington, Flexeril and ga bapentin. Patient's medications, allergies, [...] No abnormal bleeding PHYSICAL EXAMINATION: Filed Vitals: 01/26/15 1345 BP: 120/53 Pulse: 82 PainSc: 7 PainLoc: Back Body mass index [...] has no apparent deficits with short or intermediate designer memory. She has appropriate fund of knowledge [...] along with multilevel facet arthritis. ASSESSMENT: 1. Spinal stenosis of lumbar region with isaacyrytwexy-I8-X8 level moderately severe 2. Spondylolisthesis of lumbar region 3. Lumbar radiculopathy 4. DDD (degenerative disc disease), lumbar 5. Neck pain on right side 6. DDD (degenerative disc disease), cervical 7. Facet arthritis of cervical region PLAN: 1. The patient has benefited from [...] a DEXA scan prior. She has had f lexion and extension x-rays of the lumbar spine at [facility]. I previously requ ested that these be placed on I-site but I still do not see them there. She has previously s een Dr. Real and would want a consult with Dr. Mathew if she decides to pursue surgery. ELECTRONICALLY SIGNED BY: Claudia Das PA-C, 01/26/2015 documented in t his encounter Plan of Treatment +--------+---------+ + + + | Date | Type | Specialty | Care Team | Description | +--------+---------+ + + + | 05/14/ | Office | Orthopedic Surgery | Monster White MD | | | 2018 | Visit | | [address] | | | | | | [place], | | | | | | [place] [address] | | | | | | [phone] | | | | | | | | +--------+---------+ + + + | 07/30/ | Office | Cardiology | Agata Tinajero DO | | 2019 | Visit | | [address] | | | | | | [place], [place] | | | | | | [address] | | | | | | | | +--------+---------+ + + + documented as of this encounter Results FL Facet Injection Cervical (03/08/2015 12:57 PM PDT) + + | Specimen | + + | | + + + + + | Narrative | Performed At | + + + | Cervical Facet Steroid Injections Diagnosis: Cervical | [facility] | | Spondylosis ICD-9 Code 721.0 Clementine Phoenix Annabella presents to the | [facility] | | fluoroscopy suite for fluoroscopically-guided right C3-C4, C4-C5 and | [facility] | | C5-C6 facet injections as part [...] [address] | [place] | [phone] | | [facility] | | [address] | | | - IMAGING | | | | + + + + + FL BAUTISTA Lumbar Transforaminal (02/22/2015 1:02 PM PDT) + + | Specimen | + + | | + + + + + | Narrative | Performed At | + + + | 02/22/2015 Bilateral Transforaminal Epidural Steroid Injections | [facility] | | Diagnosis: Lumbar radiculopathy ICD-9 Code 724.4 Clementine Phoenix | [facility] | | Annabella presents to the fluoroscopy suite for fluoroscopically-guided [facility] | | bilateral L5-S1 transforaminal epidural steroid [...] ST. | [address] | [place], [place] | [phone] | | [facility] | | [address] | | | - IMAGING | | | | + + + + + documented in this encounter Visit Diagnoses + + | Diagnosis | + + | Spinal stenosis of lumbar region with zgskdazffmdil-G0-Z9 level moderately severe - | | Primary Spinal stenosis, lumbar region, without neurogenic claudication | + + | Spondylolisthesis of lumbar region Acquired spondylolisthesis | + + | Lumbar radiculopathy Thoracic or lumbosacral neuritis or radiculitis, unspecified | + + | DDD (degenerative disc disease), lumbar Degeneration of lumbar or lumbosacral | | intervertebral disc | + + | Neck pain on right side Cervicalgia | + + | DDD (degenerative disc disease), cervical Degeneration of cervical intervertebral | | disc | + + | Facet arthritis of cervical region Cervical spondylosis without myelopathy | + + documented in this encounter
--- OUTSIDE RECORDS SUMMARY | ~2019-05-12 | XMS | Encounter Summary ---
Demographics + + + | Address | [address] | | | [place] [address] | + + + | Home Phone [...] [place], | | | | | [place] [address] | | + + + + + | Kellen Briones | ECON | [place] | | | | | [address] | | + + + + + Care Team Providers + +------+ + | Care Hvac R Tech Name | Role | Phone | + +------+ + | Barb Marte | THANG | | + +------+ + Encounter Details +--------+ + + + + | Date | Type | Department | Care Team | Description | +--------+ + + + + | 12/29/ | Hospital | [facility] | Chavo Jacob, | DDD (degenerative | | 2019 | Encounter | MED CTR XRAY [address] | PA-C [address] | disc disease), | | | | [place] | [address] [place] | lumbar; Lumbar | | | | [place] [address] | [place] [address] | radiculopathy | | | | [phone] | [phone] | | | | | | | [...] | | | | | | [place] [address] | | | | | | [phone] | | | | | | | | +--------+---------+ + + + | 07/30/ | Office | Cardiology | Agata Tinajero DO | | | 2019 | Visit | | [address] | | | | | | [place] | | | | | | [address] | | | | | | | | +--------+---------+ + + + documented as of this encounter Procedures + +--------+ + + + | Procedure Name | Priori | Date/Time | Associated Diagnosis | Comments | | | ty | | | | + +--------+ + + + | XR LUMBAR SPINE 2 [place] | Routin | 12/29/2018 | DDD (degenerative | Results for this | | 3 VW | e | 1:32 PM | disc disease), | procedure are in the | | | | PDT | lumbar Lumbar | results section. | | | | | radiculopathy | | + +--------+ + + + documented in this encounter Results XR Lumbar Spine 2 or 3 Vw (12/29/2018 1:32 PM PDT) + + | Specimen | + + | | + + + + + | Narrative | Performed At | + + + | CLINICAL INFORMATION: Back pain. COMPARISON: MRI dated | [facility] | | 01/22/2018. FINDINGS: AP and lateral views of the lumbosacral | | | spine. Number of lumbar-type vertebrae: 5 Alignment: Mild | | | leftward curvature. Slight anterolisthesis of T12. Mild | | | anterolisthesis of L4. Vertebral bodies: Normal in height. No | | | vertebral fracture. Disk spaces and facet joints: Moderate to | | | severe degenerative disc disease at L1-S1. Multilevel facet | | | arthrosis, most notable at the lower lumbar spine. Soft tissues: | | | Arterial vascular calcifications are evident. IMPRESSION - | | | Multilevel lumbar spondylosis with moderate to severe degenerative | | | disc disease at L1-S1.. Mild leftward curvature of the lumbar | | | spine. Mild anterolisthesis of L4 and slight anterolisthesis of | | | T12. Dictated and Signed by: Westley Villaseñor MD Electronically | | | signed: 12/29/2018 2:58 PM | | + + + + + | Procedure Note | + + | Howard, Rad Results In - 12/29/2018 3:01 PM PDT | | CLINICAL INFORMATION: Back pain. | | | | COMPARISON: MRI dated 01/22/2018. | | | | FINDINGS: | | AP and lateral views of the lumbosacral spine. | | | | Number of lumbar-type vertebrae: 5 | | | | Alignment: Mild leftward curvature. Slight anterolisthesis of T12. Mild | | anterolisthesis of L4. | | | | Vertebral bodies: Normal in height. No vertebral fracture. | | | | Disk spaces and facet joints: Moderate to severe degenerative disc disease at | | L1-S1. Multilevel facet arthrosis, most notable at the lower lumbar spine. | | | | Soft tissues: Arterial vascular calcifications are evident. | | | | | | IMPRESSION - | | Multilevel lumbar spondylosis with moderate to severe degenerative disc disease | | at L1-S1.. | | | | Mild leftward curvature of the lumbar spine. | | | | Mild anterolisthesis of L4 and slight anterolisthesis of T12. | | | | Dictated and Signed by: Westley Villaseñor MD | | Electronically signed: 12/29/2018 2:58 PM | + + + +---------+ + [...]
--- OUTSIDE RECORDS SUMMARY | ~2019-05-12 | XMS | Encounter Summary ---
Demographics + + + | Address | [address] | | | [place] [address] | + + + | Home Phone | | + + + | Preferred Language | Unknown | + + + | Marital Status | | + + + | Hoahaoism Affiliation | [id number] | + + + | Race | Unknown | + + + | Ethnic Group | Unknown | + + + Author + + + | Author | [facility] | | | and [place] | + + + | Organization | [facility] | | [...] [place], | | | | | [place] [address] | | + + + + + | Kellen Briones | ECON | [place], [place] | | | | | [address] | | + + + + + Care Team Providers + +------+ + | Care Public Works Technician Name | Role | Phone | [...] | | | | lumbar | [place] [address] | [address] Phone: | | | | | region DDD | Phone: | [phone] | | | | | (degenerativ | [phone] | Fax: | | | | | e disc | Fax: | [phone] | | | | | disease), | [phone] | | | | | | lumbar [...] + + | 12/29/ | Office | [facility] | Leonard Terrazas | Back pain, | | 2019 | Visit | NEUROSURGERY [address] | MD Di [address] | unspecified back | | | | [address] | [address] [facility] | location, | | | | [place] | [place] [address] | unspecified back | | | | [address] | [phone] | pain laterality, | | | | [phone] | | unspecified | | | | [...] encounter Patient Instructions Patient Instructions Silvia Sun Tape Folding Machine Operator - 12/29/2018 1:45 PM PDT You will need to get preoperative clearance from your primary care provider as well as your cat tender if you have one. If you decide [...] 12/29/2018 1:45 PM PDT Leonard Terrazas MD [address] [place] [address], [address] [place] [address] PHONE: FAX: NEUROSURGERY HISTORY AND PHYSICAL EXAMINATION [...] reflux disease) Hyperlipidemia Hypertension Lumbar radiculopathy 07/23/2012 [place] (myocardial infarction) (HCC) Neck pain on right side 05/13/2013 Oxygen dependent 2 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 Snoring Spinal stenosis of lumbar region with lkokgtdkacrbw-C8-R9 level moderately severe 2012 PAST SURGICAL HISTORY: Past Surgical History: Procedure Laterality Date BELPHAROPTOSIS REPAIR 2009 bilateral bone spur left foot BREAST RECONSTRUCTION [id number] About 10 surgeries CARPAL TUNNEL RELEASE Bilateral CERVICAL SPINE SURGERY Anterior 03/30/2016 Procedure: C3-4, C4-5, C5-6, C6-7 Anterior Cervical Discectomy w/ Fusion and Plating; Bryan geon: Irving Becerril, DO; Location: [facility] MAIN OR CORONARY ARTERY BYPASS GRAFT 2009 [...] has no apparent deficits with short or terminal worker memory. CRANIAL NERVES: II: Acuity is intact. Ppeper are full to confrontation. III, IV, : [...] reflux disease) Hyperlipidemia Hypertension Lumbar radiculopathy 07/23/2012 MA (myocardial infarction) (HCC) Neck pain on right side 05/13/2013 Oxygen dependent 2 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 Snoring Spinal stenosis of lumbar region with ouqutrpnofvsu-X1-B7 level moderately severe 2012 PLAN: Clementine Winchester [...] | | | | | | [place] [address] | | | | | | [phone] | | | | | | | | +--------+---------+ + + + | 07/30/ | Office | Cardiology | Agata Tinajero DO | | | 2019 | Visit | | [address] | | | | | | [place] | | | | | | [address] | | | | | | | [...]
--- OUTSIDE RECORDS SUMMARY | ~2019-05-12 | XMS | Encounter Summary ---
Demographics + + + | Address | [address] | | | [place] [address] | + + + | Home Phone [...] [place], | | | | | [place] [address] | | + + + + + | Kellen Briones | ECON | [place], [place] | | | | | [address] | | + + + + + Care Team Providers + +------+ + | Care Advertising Production Manager Name | Role | Phone | [...] [address] | [address] [place], [place] | (Primary Dx); | | | | [place] | [address] | Cerebrovascular | | | | [address] | | accident (CVA), | | | | [phone] | | unspecified | | | | [...] involving | | | | | | nez perce coronary | | | | | | artery of nez perce | | | | | | heart without angina | | | | | | pectoris; 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 | | | | | | without complication | | | | | | ([facility]); Essential | | | | | | hypertension, | | | | | | hypertension with | | | | | | unspecified goal; | | | | | | Syncope and | | | | | | collapse; Cancer | | | | | | ([facility]); 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| | hyperlipidemia; ST | | | | | | elevation myocardial | | | | | | infarction (STEMI), | | | | | | unspecified artery | | | | | | ([facility]); | | | | | | Gastroesophageal [...] with | | | | | | kvhmwisaqwdxx-X3-Y8 | | | | | | level [...] region | | | | | | ([facility]); DDD | | | | | | [...] | 2018 | Visit | | [address] | | | | | | [place] | | | | | | [place] [address] | | | | | | [phone] | | | | | | | | +--------+---------+ + + + | 07/30/ | Office | Cardiology | Agata Tinajero DO | | | 2020 | Visit | | [address] | | | | | | [place] | | | | | | [address] | | | | | | | [...] PA and Lateral Chest COMPARISON: None. | [facility] | | FINDINGS: Sternal wires [...] + | [facility] | [address] | [place] | [phone] | | [facility] | | [address] | | | - IMAGING | | [...] mL/min/1.73m2 | [facility] | | | [place] | RATE,ESTIMATED | | MEDICAL | | | | mL/min/1.68x9Slol than | | CENTER - | | [...] ST. | [address] | [place] | [phone] | | [facility] | | [address] | | | - LABORATORY | | [...] | + + + + + | [facility] | [address] | [place] | [phone] | | [facility] | | [address] | | | - LABORATORY | | [...] ST. | [address] | [place], [place] | [phone] | | [facility] | | [address] | | | - LABORATORY | | [...] | | | | M/uL | [facility] | | | | [...] ST. | [address] | [place], [place] | [phone] | | [facility] | | [address] | | | - LABORATORY | | [...] | | | | CYNTHIA KIRBY MD ([id number]) | | | | | | on [...] + + | Coronary artery disease involving nez perce coronary artery of nez perce heart without | | angina pectoris | [...] | Spinal stenosis of lumbar region with ugugpihqmgppu-K5-U3 level moderately severe | | Spinal stenosis, [...]
--- OUTSIDE RECORDS SUMMARY | ~2019-05-12 | XMS | Clinical Summary ---
Demographics + + + | Address | [address] | | | [place] [address] | + + + | Home Phone | | + + + | Preferred Language | Unknown | + + + | Marital Status | | + + + | Jainism Affiliation | Unknown | + + + | Race | Unknown | + + + | Ethnic Group | Unknown | + + + Author + + + | Author | [facility] (Historical as of | | | 01-17-19) | + + + | Organization | [facility] (Historical as of | | | 01-17-19) | + + + | Address | Unknown | + + + | Phone | Unavailable | + + + Support + + + + + | Name | Relationship | Address | Phone | + + + + + | Lucy Winchester | ECON | [place], | | | | | [place] [address] | | + + + + + | Kellen Briones | ECON | Unknown | | + + + + + Care Team Providers + +------+ + | Care Electric Bath Attendant Name | Role | Phone | + +------+ + | Barb Marte PA-C | PP | | + +------+ + Allergies + + + + + + | Active Allergy | Reactions | Severity | Noted | Comments | | | | | Date | | + + + + + + | Adhesive Tape | Rash | Medium | 02/01/20 | | | | | | 18 | | + + + + + + | Capsaicin | Rash | Medium | 12/19/19 | Muscle relaxers | | | | | 19 | | + + + + + + | Tizanidine | Mental Changes | Low | 02/01/20 | | | | | | 18 | | + + + + + + Current Medications + + +---------+---------+------+------+-------+ | Prescription | Sig. | Disp. | Refills | Star | End | Statu | | | | | | t | Date | s | | | | | | Date | | | + + +---------+---------+------+------+-------+ | FREESTYLE LITE | USE TO TEST BLOOD | | 2 | 06/ | | Activ | | test strip | GLUCOSE ONCE D | | | 220 | | e | | | | | | 18 | | | + + +---------+---------+------+------+-------+ | metFORMIN | Take 500 mg by mouth | | | | | Activ | | (GLUCOPHAGE) 500 MG | daily. | | | | | e | | tablet | | | | | | | + + +---------+---------+------+------+-------+ | nitroGLYCERIN | Place 1 tablet under | | 0 | 07/1 | | Activ | | (NITROSTAT) 0.4 MG | the tongue daily as | | | 0/20 | | e | | SL tablet | needed. | | | 18 | | | + + +---------+---------+------+------+-------+ | omeprazole | Take 1 capsule by | | 2 | 08/0 | | Activ | | (PRILOSEC) 40 MG | mouth daily. | | | 620 | | e | | capsule | | | | 18 | | | + + +---------+---------+------+------+-------+ | levothyroxine | Take 25 mcg by mouth | | | 07/ | | Activ | | (SYNTHROID) 25 MCG | daily. | | | 06/22 | | e | | tablet | | | | 18 | | | + + +---------+---------+------+------+-------+ | MAGNESIUM PO | Take 250 mg by mouth | | | | | Activ | | | daily. | | | | | e | + + +---------+---------+------+------+-------+ | ranitidine | Take 1 tablet by | | 5 | 06/1 | | Activ | | (ZANTAC) 150 MG | mouth 2 (two) times | | | 8/20 | | e | | tablet | daily. | | | 18 | | | + + +---------+---------+------+------+-------+ | atorvastatin | Take 1 tablet by | | 0 | 08/2 | | Activ | | (LIPITOR) 40 MG | mouth nightly. | | | 8/20 | | e | | tablet | | | | 18 | | | + + +---------+---------+------+------+-------+ | VENTOLIN HFA 108 | Take 1 puff by mouth | | 2 | 08/1 | | Activ | | (90 Base) MCG/ACT | 4 (four) times | | | 5/20 | | e | | inhaler | daily as needed. | | | 18 | | | + + +---------+---------+------+------+-------+ | gabapentin | Take 1 capsule by | 60 | 1 | 09/0 | | Activ | | (NEURONTIN) 100 MG | mouth 2 (two) times | capsule | | 5/20 | | e | | capsule | daily. | | | 18 | | | + + +---------+---------+------+------+-------+ | lisinopril | Take 1 tablet by | 30 | 1 | 09/0 | | Activ | | (ZESTRIL) 20 MG | mouth daily. | tablet | | 6/20 | | e | | tablet | | | | 18 | | | + + +---------+---------+------+------+-------+ | aspirin 81 MG | Take 81 mg by mouth | | | | | Activ | | tablet | daily. | | | | | e | + + +---------+---------+------+------+-------+ | DULoxetine | Take 30 mg by mouth | | | | | Activ | | (CYMBALTA) 30 MG | daily. | | | | | e | | capsule | | | | | | | + + +---------+---------+------+------+-------+ | Calcium-Vitamin D | Take 1 tablet by | | | | | Activ | | 600-200 MG-UNIT per | mouth daily. | | | | | e | | tablet | | | | | | | + + +---------+---------+------+------+-------+ | Cyanocobalamin | Take by mouth. | | | | | Activ | | (VITAMIN B 12 PO) | | | | | | e | + + +---------+---------+------+------+-------+ | Cholecalciferol | Take by mouth. | | | | | Activ | | (VITAMIN D3) 3000 | | | | | | e | | units TABS | | | | | | | + + +---------+---------+------+------+-------+ | furosemide (LASIX) | Take 1 tablet by | 30 | 11 | 12/01 | 12/01 | Activ | | 20 MG tablet | mouth daily. | tablet | | 8/20 | 7/20 | e | | | | | | 19 | 20 | | + + +---------+---------+------+------+-------+ | potassium chloride | Take 1 tablet by | 30 | 11 | 07/1 | 12/01 | Activ | | (K-DUR) 10 MEQ | mouth daily. | tablet | | 8/20 | 7/20 | e | | tablet | | | | 19 | 20 | | + + +---------+---------+------+------+-------+ Active Problems + + + | Problem | Noted Date | + + + | Asthma | 12/18/2018 | + + + | Chronic narcotic use | 12/18/2018 | + + + | Coronary atherosclerosis | 12/18/2018 | + + + | GERD (gastroesophageal reflux disease) | 12/18/2018 | + + + | Hyperlipidemia | 12/18/2018 | + + + | Weakness generalized | 02/04/2018 | + + + | Chronic pain syndrome | 01/31/2018 | + + + | DM2 (diabetes mellitus, type 2) (HCC) | 01/31/2018 | + + + | HTN (hypertension) | 01/31/2018 | + + + | History of breast cancer | 03/30/2016 | + + + | S/P CABG (coronary artery bypass graft) | 03/30/2016 | + + + | History of stroke | 03/30/2016 | + + + | History of hysterectomy | 03/30/2016 | + + + | History of NV (myocardial infarction) | 03/30/2016 | + + + | History of syncope | 03/30/2016 | + + + | Oxygen dependent | 03/30/2016 | + + + | DDD (degenerative disc disease), cervical | 05/13/2013 | + + + | DDD (degenerative disc disease), lumbar | 07/23/2012 | + + + | Lumbar radiculopathy | 07/23/2012 | + + + | Arthritis | 06/04/2012 | + + + Resolved Problems + + + + | Problem | Noted | Resolved | | | Date | Date | + + + + | Hyponatremia | 02/05/20 | | | | 18 | 8 | + + + + | Hypokalemia | 02/05/20 | | | | 18 | 8 | + + + + | Acute metabolic encephalopathy | 02/01/20 | | | | 18 | 8 | + + + + Family History + + +------+ + | Medical History | Relation | Name | Comments | + + +------+ + | Coronary art dis | Father | | | + + +------+ + | Heart Problems | Father | | | + + +------+ + | Cancer | Mother | | | + + +------+ + | Heart Problems | Mother | | | + + +------+ + | Heart disease | Mother | | | + + +------+ + | Heart failure | Mother | | | + + +------+ + + +------+ + + | Relation | Name | Status | Comments | + +------+ + + | Father | | | | + +------+ + + | Mother | | | | + +------+ + [...] +---------+ + | Yes | | | an occasional glass of wine | + + +---------+ + + + + | Sex Assigned at | Date Recorded | | | | + + + | Not on file | | + + + Last Filed Vital Signs + + + + | Vital Sign | Reading | Time Taken | + + + + | Blood Pressure | 98/52 | 12/18/2018 3:39 PM PDT | + + + + | Pulse | 87 | 12/18/2018 3:39 PM PDT | + + + + | Temperature | 36.8 C (98.2 F) | 02/05/2018 4:06 PM PDT | + + + + | Respiratory Rate | 16 | 02/05/2018 4:06 PM PDT | + + + + | Oxygen Saturation | 92% | 12/18/2018 3:39 PM PDT | + + + + | Inhaled Oxygen | - | - | | Concentration | | | + + + + | Weight | 64.9 kg (143 lb) | 12/18/2018 3:39 PM PDT | + + + + | Height | 152.4 cm (5') | 12/18/2018 3:39 PM PDT | + + + + | Body Mass Index | 27.93 | 12/18/2018 3:39 PM PDT | + + + + Plan of Treatment + + + + + | Health Maintenance | Due Date | Last Done | Comments | + + + + + | Diabetic Eye Exam | | | | | | 2 | | | + + + + + | Diabetic Foot Exam | | | | | | 2 | | | + + + + + | Microalbumin | | | | | Screening | 2 | | | + + + + + | Vaccine: | | | | | Dtap/Tdap/Td (1 - | 1 | | | | Tdap) | | | | + + + + + | Vaccine: Zoster (1 | | | | | of 2) | 2 | | | + + + + + | DEXA SCAN SCREENING | | | | | | 7 | | | + + + + + | Vaccine: | | | | | Pneumococcal 65+ | 7 | | | | Low/Medium Risk (1 | | | | | of 2 - PCV13) | | | | + + + + + | Hemoglobin A1c | | 02/02/2018 | | | | 8 | | | + + + + + | Vaccine: Influenza | | | | | (#1) | 9 | | | + + + + + Results Not on filefrom Last 3 Months Insurance + +--------+ +------+-------+ + | Payer | Benefi | Subscriber | Type | Phone | Address | | | t Plan | ID | | | | | | / | | | | | | | Group | | | | | + +--------+ +------+-------+ + | MEDICARE | MEDICA | [id number] | | | [address] | | | RE | | | | [place] [address] | | | IP-OP | | | | | + +--------+ +------+-------+ + | UNITED [employer] | UNITED | [id number] | | | | | | | | | | | | | HEALTH | | | | | | | CARE - | | | | | | | AARP | | | | | + +--------+ +------+-------+ + | STEPHANIE - ERICKA - | CHAMPV | [id number] | | | [place] [id number] | | [place] | A | | | | [place] | | | | | | | [phone] | + +--------+ +------+-------+ + + +--------+ +--------+ + + | Guarantor Name | Accoun | Relation to | Date | Phone | Billing Address | | | t Type | Patient | of | | | | | | | | | | + +--------+ +--------+ + + | CLEMENTINE WINCHESTER | Person | Self | [birth year] | Work: | [address] | | | al/Fam | | [phone] | [phone] [place] | | | amanuel | | | [address] Home: | [address] | | | | | | | | | | | | | [phone] | | | | | | 8636 | | + +--------+ +--------+ + +"
--- OUTSIDE RECORDS SUMMARY | ~2019-05-12 | XMS | Encounter Summary ---
Demographics + + + | Address | [address] | | | [place] [address] | + + + | Home Phone [...] Author | [facility] | | | and [place] | + + + | Organization | [facility] | | | and [place] | + + + | Address | Unknown | + + + | Phone | Unavailable | + + + Support + + + + + | Name | Relationship | Address | Phone | + + + + + | Lucy Winchester | ECON | [place], | | | | | [place] [address] | | + + + + + | Kellen Briones | ECON | [place], [place] | | | | | [address] | | + + + + + Care Team Providers + +------+ + | Care Box Toe Maker Name | Role | Phone | [...] + + | 01/23/ | Telephone | [facility] | Mono Diaz, | Medication Question | | 2017 | | PHYSIATRY [address] | PA-C [address] | | | | | [place], | [address] [place] | | | | | [place] [address] | [place] [address] | | | | | [phone] | [phone] | | | | | | | [...] | | | | | | [place] [address] | | | | | | [phone] | | | | | | | | +--------+---------+ + + + | 07/30/ | Office | Cardiology | Agata Tinajero DO | | | 2019 | Visit | | [address] | | | | | | [place] | | | | | | [address] | | | | | | | | +--------+---------+ + + + documented as of this encounter Visit Diagnoses Not on filedocumented in this encounter"
--- OUTSIDE RECORDS SUMMARY | ~2019-05-12 | XMS | Encounter Summary ---
Demographics + + + | Address | [address] | | | [place] [address] | + + + | Home Phone [...] [place], | | | | | [place] [address] | | + + + + + | Kellen Briones | ECON | [place] | | | | | [address] | | + + + + + Care Team Providers + +------+ + | Care Assistant Name | Role | Phone | + +------+ + | Barb Marte | THANG | | + +------+ + Encounter Details +--------+ + + + + | Date | Type | Department | Care Team | Description | +--------+ + + + + | 11/05/ | Orders Only | [facility] | Irving Becerril, | Status post cervical | | 2018 | | NEUROSURGERY [address] | DO [address] | spinal fusion | | | | [address] | [address] [place], [place] | (Primary Dx) | | | | [place], [place] | [address] | | | | | [address] | | | | | | [phone] | | | +--------+ + + + [...] | 2019 | Visit | | [address] | | | | | | [place] | | | | | | [place] [address] | | | | | | [phone] | | | | | | | | +--------+---------+ + + + | 07/30/ | Office | Cardiology | Agata Tinajero DO | | | 2019 | Visit | | [address] | | | | | | [place] | | | | | | [address] | | | | | | | [...] + | Nilay Lawrence Results In - 11/05/2017 1:03 PM PDT [...] + + | Performing | Address | City[facility]State[facility] | Phone Number | | [...]
--- OUTSIDE RECORDS SUMMARY | ~2019-05-12 | XMS | Encounter Summary ---
Demographics + + + | Address | [address] | | | [place] [address] | + + + | Home Phone [...] [place], | | | | | [place] [address] | | + + + + + | Kellen Briones | ECON | [place] | | | | | [address] | | + + + + + Care Team Providers + +------+ + | Care Credit Reference Clerk Name | Role | Phone | [...] | | | [address] | [address] [place], [place] | | | | | [place], [place] | [address] | | | | | [address] | | | | | | [phone] | | | +--------+ + + + [...] | 2019 | Visit | | [address] | | | | | | [place], | | | | | | [place] [address] | | | | | | [phone] | | | | | | | | +--------+---------+ + + + | 07/30/ | Office | Cardiology | Agata Tinajero DO | | | 2019 | Visit | | [address] | | | | | | [place] | | | | | | [address] | | | | | | | [...] | A Obed: 1.09 m/s MV Dec Gilpin: 3.29 m/s2 MV DecT: 238.09 ms | [...] TR Vmax: 2.69 m/s | | | In Flight Technician: DBS Authenticated by: BUCK SOTO MD Report | | | Date/Time: -- 45_[id number]:29 | | + + + + + | Procedure Note | + + | Nilay Lawrence Conversion - 01/22/2019 4:33 PM PDT Patient Name: CLEMENTINE WINCHESTERRicardo of | | : 1940 Performing Physician: BUCK SOTO, | | MD INDICATIONS C | | [facility] CONCLUSIONS 1. [...] | 4.30 cmLVPWd: 1.07 cmLVOT Area: 3.11 [id number] Diam: 1.99 cm%FS: 46.50 %EF(Teich): | | [...] mlLAESV Index (A-L): 19.79 ml/m2LAAs A2C: 12.56 [id number] | | A-L A2C: 31.66 mlLALs A2C: 4.23 cmLAAs A4C: 13.43 [id number] A-L A4C: 33.50 | | mlLALs A4C: 4.57 cmRAAs: 11.82 [id number] A-L: 26.21 mlRAESV MOD: 26.46 mlRALs: | | 4.52 cmTAPSE: 1.59 cmAV maxP.72 mmHgAV meanP.52 mmHgAV Vmax: 1.63 m/Shreyas | | Vmean: 1.09 m/Shreyas VTI: 32.89 cmAVA Vmax: 2.19 cm2AVA (VTI): 1.98 [id number] | | (Vmax): 0.00 cm2/m2AVAI (VTI): 0.00 cm2/m2LVOT maxP.34 mmHgLVOT meanP.29 | | mmHgLVSI Dopp: 38.17 ml/m2LVSV Dopp: 65.27 mlLVOT Vmax: 1.15 m/sLVOT Vmean: | | 0.68 m/sLVOT VTI: 20.94 cmMV A Obed: 1.09 m/sMV Dec Gilpin: 3.29 m/s2MV DecT: | | 238.09 msMV E Obed: 0.78 m/sMV E/A Ratio: 0.71MV PHT: 69.04 msMVA By PHT: 3.18 | | [id number] e': 0.05 m/sSeptal E/e': 15.64Lateral e': 0.06 m/sLateral E/e': | | 11.34RAP: 5 mmHgRVSP: 33.95 mmHgTR maxP.95 mmHgTR Vmax: 2.69 m/s | | In Flight Technician: DBSAuthenticated by: Armen ROY Date/Time: -- | | [id number]:20:29 IMPRESSION: 1. Overall left ventricular systolic function [...] A Obed: 1.09 m/s | |MV Dec Gilpin: 3.29 m/s2 | |MV DecT: 238.09 ms [...] |TR Vmax: 2.69 m/s | | | |In Flight Technician: DBS | |Authenticated by: BUCK SOTO MD | |Report Date/Time: [id number]:20:29 | | | |IMPRESSION: | |1. Overall [...]
--- OUTSIDE RECORDS SUMMARY | ~2019-05-12 | XMS | Encounter Summary ---
Demographics + + + | Address | [address] | | | [place] [address] | + + + | Home Phone [...] [place], | | | | | [place] [address] | | + + + + + | Kellen Briones | ECON | [place], [place] | | | | | [address] | | + + + + + Care Team Providers + +------+ + | Care Unix Engineer Name | Role | Phone | [...] | | | Procedures | [address] [facility] | | | | | NM Nuclear | [address] | Med [address] | | | | | Stress Test | [address] | [address] [address] | | | | | (Vasodilator | [place], [place] | [place], [place] | | | | | ) | [address] | [address] | | | | | | Phone: | Phone: | | | | | | [phone] | [phone] | | | | | | Fax: | Fax: | | | | | | [phone] | [phone] | +--------+--------+ + + + + Reason [...] | | | Procedures | [address] | [facility] | | | | | NM Nuclear | [address] | Med [address] | | | | | Stress Test | [address] | [address] | | | | | (Vasodilator | [place], [place] | [place], [place] | | | | | ) | [address] | [address] | | | | | | Phone: | Phone: | | | | | | [phone] | [phone] | | | | | | Fax: | Fax: | | | | | | [phone] | [phone] | +--------+--------+ + + + + Encounter Details +--------+ + + + + | Date | Type | Department | Care Team | Description | +--------+ + + + + | 02/16/ | Hospital | [facility] | Agata Tinajero DO | Hx of CABG | | 2019 | Encounter | CARDIOLOGY T[facility]OP[facility] | [address] | | | | | N[address] | [address] [place], [place] | | | | | [address] | [address] | | | | | [place], [place] | | | | | | [address] | | | | | | [phone] | | | +--------+ + + + [...] | | | | | | [place] [address] | | | | | | [phone] | | | | | | | | +--------+---------+ + + + | 07/30/ | Office | Cardiology | Agata Tinajero DO | | | 2019 | Visit | | [address] | | | | | | [place] | | | | | | [address] | | | | | | | [...]
--- OUTSIDE RECORDS SUMMARY | ~2019-05-12 | XMS | Encounter Summary ---
Demographics + + + | Address | [address] | | | [place] [address] | + + + | Home Phone [...] [place], | | | | | [place] [address] | | + + + + + | Kellen Briones | ECON | [place], [place] | | | | | [address] | | + + + + + Care Team Providers + +------+ + | Care Bpm Architect Name | Role | Phone | + +------+ + | Anna De Guzman PA-C | PCP | | + +------+ + Encounter Details +--------+ + + + + | Date | Type | Department | Care Team | Description | +--------+ + + + + | 06/23/ | Hospital | [facility] | Chris Longo MD | | | 2012 - | Encounter | MED CTR XRAY [address] | [address] [facility] | | | | | [place] | [place] | | | 06/25/ | | [place] [address] | [address] | | | 2012 | | [phone] | [phone] | | | | | | | [...] | 2019 | Visit | | [address] | | | | | | [place], | | | | | | [place] [address] | | | | | | [phone] | | | | | | | | +--------+---------+ + + + | 07/30/ | Office | Cardiology | Agata Tinajero DO | | | 2019 | Visit | | [address] | | | | | | [place] | | | | | | [address] | | | | | | | [...] Performed At | + + + | [facility] | [place] | | Department [address], [place] | [facility] | | [ rep [address]] [ rep [facility] | | st zip] Signed | - IMAGING | | | | | Patient Name: PEDRODAXACISCO TALBERTLOCO Hand Physician: | | | CHAP.20 : 1940 Age: 72 Sex: F Unit #: [id number] | | | Exam Date: 06/23/12 Location: [facility] | | | Report #: [id number] Page: | | | %(RAD)RES..mtdd.print.filter("pg") of %(RAD) | | | RES..mtdd.print.filter("tpg") | | | | | | Accession Number: [id number] | | | UNENHANCED MRA HEAD WITH THREE-DIMENSIONAL VASCULAR RECONSTRUCTION, | | | 06/23/2012 CLINICAL HISTORY: 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 COMPARISON: Brain | | | MRI from the same day. TECHNIQUE: Axial unenhanced 3D | | | aywe-mz-xirqay MRA images are performed through the [facility] of [place] | | | and major [...] Transcribed | | | Date/Time: 06/24/2012 10:05 Line Ordering Clinician: | | | <<Signature on File>> | | | Papito Garcia | | | MD Augustus06/24/122052 <Electronically signed by Papito Coffman MD> | | | Papito Coffman MD 06/24/1262 Line Ordering Clinician: | | | [employer] Ndydioyzhldsy62/22/13 1005 Chris Longo MD | | | | | + + + + + + + + | Performing | Address | City/State/Zipcode | Phone Number | | Organization | | | | + + + + + | [facility] | [address] | [place] | [phone] | | [facility] | | [address] | | | - IMAGING | | | | + + + + + MRI Brain w wo Contrast (06/24/2012 9:51 AM PST) + + | Specimen | + + | | + + + + + | Narrative | Performed At | + + + | [facility] | [place] | | Department [address] [place] | [facility] | | [ rep ct [address]] [ rep ct [facility] | | st zip] Signed | - IMAGING | | | | | Patient Name: CLEMENTINE NUNEZ Physician: | | | CHAP.20 : 1940 Age: 72 Sex: F Unit #: [id number] | | | Exam Date: 06/23/12 Location: [facility] | | | Report #: [id number] Page: | | | %(RAD)RES..mtdd.print.filter("pg") of %(RAD) | | | RES..mtdd.print.filter("tpg") | | | | | | Accession Number: [id number] | | | UNENHANCED AND ENHANCED BRAIN [...] Transcribed Date/Time: 06/24/2012 10:00 | | | Line Ordering Clinician: <<Signature on File>> | | | Papito Avendaño | Jose Coffman MD06/24/12 826 <Electronically signed by Papito Coffman | | | MD> [place] [address] Line Ordering Clinician: | | | [employer] Ymyqhbjdttaib93/22/13 Brigida Longo MD | | | | | + + + + + + + + | Performing | Address | City/State/Zipcode | Phone Number | | Organization | | | | + + + + + | [address] [facility] | [address] | [place] | [phone] | | [facility] | | [address] | | | - IMAGING | | | | + + + + + documented in this encounter Visit Diagnoses Not on filedocumented in this encounter
--- OUTSIDE RECORDS SUMMARY | ~2019-05-12 | XMS | Encounter Summary ---
Demographics + + + | Address | [address] | | | [place] [address] | + + + | Home Phone [...] [place], | | | | | [place] [address] | | + + + + + | Kellen Briones | ECON | [place] | | | | | [address] | | + + + + + Care Team Providers + +------+ + | Care Computer Game Designer Name | Role | Phone | + +------+ + | Barb Marte | THANG | | + +------+ + Encounter Details +--------+ + + + + | Date | Type | Department | Care Team | Description | +--------+ + + + + | 03/05/ | Hospital | [facility] | Barb Marte PA | Abnormal mammogram | | 2018 | Encounter | MED CTR MAMMOGRAPHY | [address] | | | | | [address] | [address] [place] | | | | | [place] | [address] | | | | | [address] | | | | | | [phone] | [place] | | +--------+ [...] | | | | | | [place] [address] | | | | | | [phone] | | | | | | | | +--------+---------+ + + + | 07/30/ | Office | Cardiology | Agata Tinajero DO | | | 2019 | Visit | | [address] | | | | | | [place] | | | | | | [address] | | | | | | | | +--------+---------+ + + + documented as of this encounter Procedures + +--------+ + + + | Procedure Name | Priori | Date/Time | Associated Diagnosis | Comments | | | ty | | | | + +--------+ + + + | RACHEL TOMOSYN | Routin | 03/05/2018 | Abnormal mammogram | Results for this | | DIAGNOSTIC LEFT | e | 10:52 AM | | procedure are in the | | | | PDT | | results section. | + +--------+ + + + documented in this encounter Results RACHEL Tomosynthesis Diagnostic Left (03/05/2018 10:52 AM PDT) + + | Specimen | [...]
--- OUTSIDE RECORDS SUMMARY | ~2019-05-12 | XMS | Encounter Summary ---
Demographics + + + | Address | [address] | | | [place] [address] | + + + | Home Phone [...] + + | Author | [facility] | | | and [place] | + + + | Organization | [facility] [...] [place], | | | | | [place] [address] | | + + + + + | Kellen Briones | ECON | [place], [place] | | | | | [address] | | + + + + + Care Team Providers + +------+ + | Care Motorboat Mechanic Inboard/Outboard Name | Role | Phone | + [...] + + | 12/23/ | Telephone | [facility] | Gonzalo Mathew MD | Records Request | | 2014 | | NEUROSURGERY [address] | [address] | (CARDIOLOGY | | | | [address] | [place] [address] | CLEARANCE) | | | | [place] | [phone] | | | | | [address] | | | | | | [phone] | | | +--------+ + + + [...] | | | | | | [place] [address] | | | | | | [phone] | | | | | | | | +--------+---------+ + + + | 07/30/ | Office | Cardiology | Agata Tinajero DO | | | 2019 | Visit | | [address] | | | | | | [place] | | | | | | [address] | | | | | | | | +--------+---------+ + + + documented as of this encounter Visit Diagnoses Not on filedocumented in this encounter"
--- OUTSIDE RECORDS SUMMARY | ~2019-05-12 | XMS | Encounter Summary ---
Demographics + + + | Address | [address] | | | [place] [address] | + + + | Home Phone [...] [place], | | | | | [place] [address] | | + + + + + | Kellen Briones | ECON | [place], [place] | | | | | [address] | | + + + + + Care Team Providers + +------+ + | Care Armor Reconnaissance Vehicle Crewman Name | Role | Phone | + [...] + + | 01/26/ | Office | [facility] | Pippa, | Spinal stenosis of | | 2014 | Visit | PHYSIATRY [address] | [place] [address] | lumbar region with | | | | [place], | [place], | [place]tyfvdg[place]8 | | | | [place] [address] | [place] [address] | level moderately | | | | [phone] | [phone] | severe (Primary Dx); | | | [...] of the procedure you must provide a utility driver to take you home. For all [...] spinal stenosis. Her last injection was in [facility] of this year. She reports that the treatment was effective for approximately 1 months. 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 The patient reports overall [...] and narcotic medications use; she currently uses Coats, Flexeril and ga bapentin. Patient's medications, allergies, [...] has no apparent deficits with short or superintendent container terminal memory. She has appropriate fund of [...] 1. Spinal stenosis of lumbar region with chofpzpsowbae-I6-Y4 level moderately severe 2. Spondylolisthesis of lumbar [...] extension x-rays of the lumbar spine at [facility]. I previously requ ested that [...] | 2018 | Visit | | [address] | | | | | | [place], | | | | | | [place] [address] | | | | | | [phone] | | | | | | | | +--------+---------+ + + + | 07/30/ | Office | Cardiology | Agata Tinajero DO | | 2019 | Visit | | [address] | | | | | | [place], [place] | | | | | | [address] | | | | | | | [...] Clementine Phoenix Annabella presents to the | [facility] | | fluoroscopy suite for fluoroscopically-guided right C3-C4, C4-C5 and | [facility] | | C5-C6 facet injections as [...] [address] | [place] | [phone] | | [facility] | | [address] | | | - IMAGING | | [...] radiculopathy ICD-9 Code 724.4 Clementine Phoenix | [facility] | | Annabella presents to the fluoroscopy suite for fluoroscopically-guided [facility] | | bilateral L5-S1 transforaminal epidural [...] ST. | [address] | [place], [place] | [phone] | | [facility] | | [address] | | | - IMAGING | | | | + + + + + documented in this encounter Visit Diagnoses + + | Diagnosis | + + | Spinal stenosis of lumbar region with abeieewiwmzgr-S2-L9 level moderately severe - | | Primary [...]
--- OUTSIDE RECORDS SUMMARY | ~2019-05-12 | XMS | Encounter Summary ---
Demographics + + + | Address | [address] | | | [place] [address] | + + + | Home Phone [...] [place], | | | | | [place] [address] | | + + + + + | Kellen Briones | ECON | [place], [place] | | | | | [address] | | + + + + + Care Team Providers + +------+ + | Care Stevedore Dock Name | Role | Phone | + [...] [address] | [address] [place], [place] | (Primary Dx); | | | | [place] | [address] | Cerebrovascular | | | | [address] | | accident (CVA), | | | | [phone] | | unspecified | | | | [...] involving | | | | | | stockbridge coronary | | | | | | artery of stockbridge | | | | | | heart without angina | | | | | | pectoris; 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 | | | | | | without complication | | | | | | ([facility]); Essential | | | | | | hypertension, | | | | | | hypertension with | | | | | | unspecified goal; | | | | | | Syncope and | | | | | | collapse; Cancer | | | | | | ([facility]); 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| | hyperlipidemia; ST | | | | | | elevation myocardial | | | | | | infarction (STEMI), | | | | | | unspecified artery | | | | | | ([facility]); | | | | | | [...] with | | | | | | nnknmhwnxgjyy-J3-O5 | | | | | | level [...] region | | | | | | ([facility]); DDD | | | | | [...] | 2018 | Visit | | [address] | | | | | | [place] | | | | | | [place] [address] | | | | | | [phone] | | | | | | | | +--------+---------+ + + + | 07/30/ | Office | Cardiology | Agata Tinajero DO | | | 2020 | Visit | | [address] | | | | | | [place] | | | | | | [address] | | | | | | | [...] PA and Lateral Chest COMPARISON: None. | [facility] | | FINDINGS: Sternal wires and mediastinal [...] + | [facility] | [address] | [place] | [phone] | | [facility] | | [address] | | | - IMAGING | | [...] mL/min/1.73m2 | [facility] | | | [facility] | RATE,ESTIMATED | | MEDICAL | | | | mL/min/1.45c5Wzdg than | | CENTER - | | [...] ST. | [address] | [place] | [phone] | | [facility] | | [address] | | | - LABORATORY | | [...] [address] | [place] | [phone] | | [facility] | | [address] | | | - LABORATORY | | [...] ST. | [address] | [place], [place] | [phone] | | [facility] | | [address] | | | - LABORATORY | | [...] ST. 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
--- OUTSIDE RECORDS SUMMARY | ~2019-05-12 | XMS | Encounter Summary ---
Demographics + + + | Address | [address] | | | [place] [address] | + + + | Home Phone | | + + + | Preferred Language | Unknown | + + + | Marital Status | | + + + | Voodoo Affiliation | 1041 | + + + [...] [place], | | | | | [place] [address] | | + + + + + | Kellen Briones | ECON | [place] | | | | | [address] | | + + + + + Care Team Providers + +------+ + | Care Loader Helper Name | Role | Phone | + +------+ + | Barb Marte | PCP | | + +------+ + Encounter Details +--------+ + + + + | Date | Type | Department | Care Team | Description | +--------+ + + + + | 01/31/ | Hospital | [facility] | Conversion | Diagnosis unknown | | 2018 | Encounter | [address] | Transaction, | | | | | [address] | Provider Unknown | | | | | [place] | [phone] | | | | | [address] | | | | | | [phone] | | | +--------+ + + + [...] | | | | | | [place] [address] | | | | | | [phone] | | | | | | | | +--------+---------+ + + + | 07/30/ | Office | Cardiology | Agata Tinajero DO | | | 2019 | Visit | | [address] | | | | | | [place] | | | | | | [address] | | | | | | | | +--------+---------+ + + + documented as of this encounter Procedures + +--------+ + + + | Procedure Name | Priori | Date/Time | Associated Diagnosis | Comments | | | ty | | | | + +--------+ + + + | MRI BRAIN WO | Routin | 01/27/2018 | | Results for this | | CONTRAST | e | 4:23 PM | | procedure are in the | | | | PDT | | results section. | + +--------+ + + + documented in this encounter Results MRI Brain wo Contrast (01/27/2018 4:23 PM PDT) + + | Specimen | [...]
--- OUTSIDE RECORDS SUMMARY | ~2019-05-12 | XMS | Encounter Summary ---
Demographics + + + | Address | [address] | | | [place] [address] | + + + | Home Phone | | + + + | Preferred Language | Unknown | + + + | Marital Status | | + + + | Mandaen Affiliation | 1041 | + + + | Race | Unknown | + + + | Ethnic Group | Unknown | + + + Author + + + | Author | [facility] | | | and [place] | + + + | Organization | [facility] | | | and [place] | + + + | Address | Unknown | + + + | Phone | Unavailable | + + + Support + + + + + | Name | Relationship | Address | Phone | + + + + + | Lucycat Carmichalejenakj | ECON | [place], | | | | | [place] [address] | | + + + + + | Kellen Briones | ECON | [place], [place] | | | | | [address] | | + + + + + Care Team Providers + +------+ + | Care Striping Machine Operator Name | Role | Phone | + +------+ + PCP | Unavailable | + +------+ + Encounter Details +--------+ + + + + | Date | Type | Department | Care Team | Description | +--------+ + + + + | 07/06/ | Hospital | [facility] GENER[facility] OP | [place], | Unspecified Chest | | 2010 | Encounter | [address] | Lam Mireles MD | Pain | | | | [address] | [address] | | | | | [place], [place] | [place] [address] | | | | | [address] | [phone] | | | | | [phone] | | | +--------+ + + + [...] | | | | | | [place] [address] | | | | | | [phone] | | | | | | | | +--------+---------+ + + + | 07/30/ | Office | Cardiology | Agata Tinajero DO | | | 2019 | Visit | | [address] | | | | | | [place] | | | | | | [address] | | | | | | | | +--------+---------+ + + + documented as of this encounter Procedures + +--------+ + + + | Procedure Name | Priori | Date/Time | Associated Diagnosis | Comments | | | ty | | | | + +--------+ + + + | NM MYOCARDIAL | Routin | 07/06/2009 | | Results for this | | PERFUSION MULT SPECT | e | 2:20 PM | | procedure are in the | | | | PST | | results section. | + +--------+ + + + documented in this encounter Results NM Myocardial Perfusion Mult SPECT (07/06/2009 2:20 PM PST) + + | Specimen | + + | | + + + + + | Narrative | Performed At | + + + | [facility] | | | [facility] [address] | | | , | | | [id number]/RADIOLOGY Patient Name: CLEMENTINE NUNEZ Date of : | | | 1940 Medical Record: [id number] Account: [id number] // | | | Exam Date/Time: 07/06/2009 11:15 A | | | Ordering Provider: KERA LAGUNA Order Detail: [id number] / / HNM | | | Exam Description: NM MYOCARDIAL GATED S+R | | | | | | NUCLEAR MEDICINE MYOCARDIAL GATED STRESS/REST EXAM 07/06/2009 | | | HISTORY A 69-year-old woman with chest pain. TECHNIQUE After the | | | intravenous administration of 4.3 mCi of thallium 201, gated SPECT | | | imaging of the heart was performed in supine position. Following | | | this, the patient exercised on a treadmill utilizing Augustus protocol | | | for approximately 4 minutes. At this point, she developed some | | | shortness of breath and exercise could not further progress. | | | Therefore, 0.4 mg of regadenoson was administered intravenously, | | | followed by 15 mCi of Tc99m Myoview, with gated SPECT imaging of the | | | heart performed in supine and prone positioning. The stress test was | | | performed by SHELBY Higginbotham, who reported some ST depression in | | | leads I, aVL, V6, V2, and elevation in leads II and III, with overall | | | impression of normal stress test. The patient did develop some | | | shortness of breath and cough that resolved. FINDINGS A small | | | apparent fixed defect is seen within the inferolateral wall | | | suggesting a small infarct. This is seen on rest imaging. On stress | | | imaging, a large radiopharmaceutical defect is found involving the | | | proximal to mid inferior wall, with extension into the inferolateral | | | wall distally and proximal septal wall, suggesting a large region of | | | ischemia. There is diminished wall motion on stress imaging in this | | | region. The overall ejection fraction is 63%. The stress | | | end-diastolic volume is 15 mL. Stress end-systolic volume is 19 mL. | | | Nongated average stress volume of the left ventricular is 33 mL. | | | IMPRESSION 1. Large region of ischemia involving the inferior wall, | | | particularly proximally in its mid aspect, with extension into | | | the inferolateral wall distally and proximal septal wall. 2. | | | Probable tiny associated infarct involving the proximal inferior wall | | | laterally. Read by MARCIA MOTLEY MD 07/06/2009 01:27 P | | | Electronically Signed by MARCIA MOTLEY MD 07/06/2009 09:44 P | | | P P [facility]//[id number]/ | | | cc: MD MARCIA WHITE MD SAR[place]NA | | | MD LUZ [place] | | + + + + + | Procedure Note | + + | Nilay Lawrence - 01/25/2019 5:24 PM PDT | | [facility] | | [facility] [address] | | , | | | | [id number]/RADIOLOGY | | | | Patient Name: CLEMENTINE NUNEZ | | Date of : 1940 | | Medical Record: [id number] | | Account: [id number] | | // | | | | | | Exam Date/Time: 07/06/2009 11:15 A | | Ordering Provider: KERA LAGUNA | | Order Detail: [id number] / / HNM | | Exam Description: NM MYOCARDIAL GATED S+R | | | | NUCLEAR MEDICINE MYOCARDIAL GATED STRESS/REST EXAM 07/06/2009 | | | | HISTORY | | A 69-year-old woman with chest pain. | | | | TECHNIQUE | | After the intravenous administration of 4.3 mCi of thallium 201, gated | | SPECT imaging of the heart was performed in supine position. Following | | this, the patient exercised on a treadmill utilizing Augustus protocol for | | approximately 4 minutes. At this point, she developed some shortness of | | breath and exercise could not further progress. Therefore, 0.4 mg of | | regadenoson was administered intravenously, followed by 15 mCi of Tc99m | | Myoview, with gated SPECT imaging of the heart performed in supine and | | prone positioning. The stress test was performed by SHELBY Higginbotham, | | who reported some ST depression in leads I, aVL, V6, V2, and elevation | | in leads II and III, with overall impression of normal stress test. | | | | The patient did develop some shortness of breath and cough that | | resolved. | | | | FINDINGS | | A small apparent fixed defect is seen within the inferolateral wall | | suggesting a small infarct. This is seen on rest imaging. On stress | | imaging, a large radiopharmaceutical defect is found involving the | | proximal to mid inferior wall, with extension into the inferolateral | | wall distally and proximal septal wall, suggesting a large region of | | ischemia. There is diminished wall motion on stress imaging in this | | region. The overall ejection fraction is 63%. | | | | The stress end-diastolic volume is 15 mL. Stress end-systolic volume is | | 19 mL. Nongated average stress volume of the left ventricular is 33 mL. | | | | IMPRESSION | | 1. Large region of ischemia involving the inferior wall, particularly | | proximally in its mid aspect, with extension into the inferolateral | | wall distally and proximal septal wall. | | 2. Probable tiny associated infarct involving the proximal inferior wall | | laterally. | | | | | | Read by | | MARCIA MOTLEY MD 07/06/2009 01:27 P | | Electronically Signed by | | MARCIA MOTLEY MD 07/06/2009 09:44 P | | | | P | | P | | [facility]/britni/[id number]/ | | cc: YANNICK MCKINNEY MD | | MARCIA MOTLEY MD | | KERA LAGUNA MD | + + documented in this encounter Visit Diagnoses + + | Diagnosis | + + | Chest pain, unspecified | + + documented in this encounter"
--- OUTSIDE RECORDS SUMMARY | ~2019-05-12 | XMS | Encounter Summary ---
Demographics + + + | Address | [address] | | | [place] [address] | + + + | Home Phone [...] [place], | | | | | [place] [address] | | + + + + + | Kellen Briones | ECON | [place] | | | | | [address] | | + + + + + Care Team Providers + +------+ + | Care Network Consultant Name | Role | Phone | + +------+ + | Barb Marte | PCP | | + +------+ + Encounter Details +--------+ + + + + | Date | Type | Department | Care Team | Description | +--------+ + + + + | 01/31/ | Hospital | [facility] | Conversion | Diagnosis unknown | | 2018 | Encounter | [address]VERSION [address] | Transaction, | | | | | [address] | Provider Unknown | | | | | [place] | [phone] | | | | | [address] | | | | | | [phone] | | | +--------+ + + + [...] | | | | | | [place] [address] | | | | | | [phone] | | | | | | | | +--------+---------+ + + + | 07/30/ | Office | Cardiology | Agata Tinajero DO | | | 2019 | Visit | | [address] | | | | | | [place] | | | | | | [address] | | | | | | | [...]
--- OUTSIDE RECORDS SUMMARY | ~2019-05-12 | XMS | Encounter Summary ---
Demographics + + + | Address | [address] | | | [place] [address] | + + + | Home Phone [...] [place], | | | | | [place] [address] | | + + + + + | Kellen Briones | ECON | [place], [place] | | | | | [address] | | + + + + + Care Team Providers + +------+ + | Care Healthcare Market Consultant Name | Role | Phone | + +------+ + | Anna De Guzman PA-C | PCP | | + +------+ + Encounter Details +--------+ + + + + | Date | Type | Department | Care Team | Description | +--------+ + + + + | 02/01/ | Hospital | [facility] | Irving Becerril, | Neck pain | | 2016 | Encounter | MED CTR XRAY [address] | DO [address] | | | | | [place] | [address] [place], [place] | | | | | [place] [address] | [phone] | | | | | [phone] | | | +--------+ + + + [...] | 2018 | Visit | | [email or web address] | | | | | | [place] | | | | | | [place] [address] | | | | | | [phone] | | | | | | | | +--------+---------+ + + + | 07/30/ | Office | Cardiology | Agata Tinajero DO | | | 2020 | Visit | | [address] | | | | | | [place] | | | | | | [address] | | | | | | | [...] | + + + + + | [facility] | [address] | [place] | [phone] | | [facility] | | [address] | | | - IMAGING | | | | + + + + + documented in this encounter Visit Diagnoses + + | Diagnosis | + + | Neck pain Cervicalgia | + + documented in this encounter"
--- OUTSIDE RECORDS SUMMARY | ~2019-05-12 | XMS | Encounter Summary ---
Demographics + + + | Address | [address] | | | [place] [address] | + + + | Home Phone | | + + + | Preferred Language | Unknown | + + + | Marital Status | | + + + | Worship Affiliation | 1041 | + + + [...] [place], | | | | | [place] [address] | | + + + + + | Kellen Briones | ECON | [place], [place] | | | | | [address] | | + + + + + Care Team Providers + +------+ + | Care Densitometrist Name | Role | Phone | + [...] + + | 05/20/ | Office | [facility] | Tk Ann | Lumbar radiculopathy | | 2013 | Visit | PHYSIATRY [address] | TMD [address] | (Primary Dx); DDD | | | | [place], | [place] | (degenerative disc | | | | [place] [address] | [phone] | disease), lumbar; | | | | [phone] | | Facet arthritis of | | [...] with | | | | | | [id number] | | | | | | level [...] of the procedure you must provide a hog driver to take you home. For all [...] spinal stenosis. Her last injection was in [facility] of this year. She reports [...] and narcotic medications use; she currently uses [place], Flexeril and [place] bapentin. Patient's medications, allergies, [...] has no apparent deficits with short or watermaster memory. She has appropriate fund of knowledge [...] | 2018 | Visit | | [address] | | | | | | [place], | | | | | | [place] [address] | | | | | | [phone] | | | | | | | | +--------+---------+ + + + | 07/30/ | Office | Cardiology | Agata Tinajero DO | | 2019 | Visit | | [address] | | | | | | [facility] | | | | | | [address] | | | | | | | [...] radiculopathy ICD-9 Code 724.4 Clementine Phoenix | [facility] | | Annabella presents to the fluoroscopy suite for fluoroscopically-guided [facility] | | bilateral [...] | + + + + + | [facility] | [address] | [place] | [phone] | | [facility] | | [address] | | | - IMAGING | | [...] | Spinal stenosis of lumbar region with [id number]-[id number] level moderately severe | | Spinal stenosis, lumbar region, without neurogenic claudication | + + documented in this encounter
--- OUTSIDE RECORDS SUMMARY | ~2019-05-12 | XMS | Encounter Summary ---
Demographics + + + | Address | [address] | | | [place] [address] | + + + | Home Phone | | + + + | Preferred Language | Unknown | + + + | Marital Status | | + + + | Rastafarian Affiliation | 1041 | + + + | Race | Unknown | + + + | Ethnic Group | Unknown | + + + Author + + + | Author | [facility] | | | and [place] | + + + | Organization | [facility] | | [...] [place], | | | | | [place] [address] | | + + + + + | Kellen Briones | ECON | [place], [place] | | | | | [address] | | + + + + + Care Team Providers + +------+ + | Care Regional Flatbed Truck Driver Name | Role | Phone [...] + + | 08/27/ | Telephone | [facility] | Ramon Real | Other | | 2012 | | [address] | MD Idris [address] | | | | | [address] | [place], [place] | | | | | [place], [place] | [address] | | | | | [address] | [phone] | | | | | [phone] | | | +--------+ + + + [...] | | | | | | [place] [address] | | | | | | [phone] | | | | | | | | +--------+---------+ + + + | 07/30/ | Office | Cardiology | Agata Tinajero DO | | | 2019 | Visit | | [address] | | | | | | [place] | | | | | | [address] | | | | | | | | +--------+---------+ + + + documented as of this encounter Visit Diagnoses Not on filedocumented in this encounter"
--- OUTSIDE RECORDS SUMMARY | ~2019-05-12 | XMS | Encounter Summary ---
Demographics + + + | Address | [address] | | | [place] [address] | + + + | Home Phone [...] | Author | [facility] | | | and [...] [place], | | | | | [place] [address] | | + + + + + | Kellen Briones | ECON | [place], [place] | | | | | [address] | | + + + + + Care Team Providers + +------+ + | Care Business Machine Operator Name | Role | Phone [...] + + | 11/04/ | Office | [facility] | Patrick Gaffney MD [address] | Transient loss of | | 2012 | Visit | [facility] | [address] | consciousness | | | | [address] [facility], | [address], | (Primary Dx) | | | | [address] [place] | [place] [address] | | | | | [place] [address] | [phone] | | | | | [phone] | | | +--------+---------+ + + + [...] Nancy Rust RN - 09/2012 1:28 PM [id number]: BP recheck 110/70. documented in this e [...] | | | | | | [place] [address] | | | | | | [phone] | | | | | | | | +--------+---------+ + + + | 07/30/ | Office | Cardiology | Agata Tinajero DO | | | 2019 | Visit | | [address] | | | | | | [place] | | | | | | [address] | | | | | | | | +--------+---------+ + + + documented as of this encounter Visit Diagnoses + + | Diagnosis | + + | Transient loss of consciousness - Primary Syncope and collapse | + + documented in this encounter"
--- OUTSIDE RECORDS SUMMARY | ~2019-05-12 | XMS | Encounter Summary ---
Demographics + + + | Address | [address] | | | [place] [address] | + + + | Home Phone [...] Author | [facility] | | | and [place] | + + + | Organization | [facility] | | [...] [place], | | | | | [place] [address] | | + + + + + | Kellen Briones | ECON | [place], [place] | | | | | [address] | | + + + + + Care Team Providers + +------+ + | Care Imaging Account Manager Name | Role | Phone | [...] | | | | | | | [place] | | | | | | | [...] + + + + | 03/30/ | Anesthesia | [facility] | Agata Mayen, | | | 2015 | Event | MED CTR [facility] OP | DO [address] | | | | | [address] | [place] | | | | | [place] | [address] | | | | | [address] | | | | | | [phone] | | | +--------+ + + + + Anesthesia Record + + + + + | Procedure Name | Responsible | Anesthesia Start | Anesthesia Stop Time | | | Anesthesiologist | Time | | + + + + + | C3-4, C4-5, C5-6, | Agata Mayen DO | 03/30/16 1351 | 03/30/16 1635 | | C6-7 Anterior | | | | | Cervical Discectomy | | | | | w/ Fusion and | | | | | Plating (Anterior | | | | | Neck) | | | | + + + + + +----+---+ + + | Da | T | Event | Comment | | te | i | | | | | m | | | | | e | | | +----+---+ + + | 10 | 1 | | | | /2 | 3 | | | | 8/ | 4 | | | | 20 | 0 | | | | 16 | | | | +----+---+ + + | | 1 | An Checkout | Pre-use anesthesia machine/equipment checkout. | | | 3 | | | | | 5 | | | | | 1 | | | +----+---+ + + | | 1 | An Start | Reassessment prior to anesthesia induction/procedure. | | | 3 | | | | | 5 | | | | | 1 | | | +----+---+ + + | | 1 | Preoxygenat | | | | 3 | ed | | | | 5 | | | | | 1 | | | +----+---+ + + | | 1 | Pre-Procedu | | | | 3 | ral Timeout | | | | 5 | Completed | | | | 1 | | | +----+---+ + + | | 1 | Antibiotic | | | | 3 | Given | | | | 5 | | | | | 5 | | | +----+---+ + + | | 1 | An | | | | 3 | Induction | | | | 5 | | | | | 6 | | | +----+---+ + + | | 1 | An | | | | 3 | Intubation | | | | 5 | | | | | 8 | | | +----+---+ + + | | 1 | Cecil | | | | 4 | 43-degrees | | | | 0 | | | | | 4 | | | +----+---+ + + | | 1 | First | | | | 4 | Inc/Proc St | | | | 1 | | | | | 3 | | | +----+---+ + + | | 1 | An Surgeon | | | | 5 | on Cuff | | | | 0 | | | | | 2 | | | +----+---+ + + | | 1 | AN No | TOF 4/4 with sustained tetanus. | | | 6 | Residual | | | | 0 | NMB | | | | 1 | | | +----+---+ + + | | 1 | Breathing | | | | 6 | Spontaneous | | | | 2 | ly | | | | 1 | | | +----+---+ + + | | 1 | Oropharynx | | | | 6 | Suctioned | | | | 2 | | | | | 5 | | | +----+---+ + + | | 1 | Extubated | | | | 6 | Awake | | | | 2 | | | | | 8 | | | +----+---+ + + | | 1 | an stop | | | | 6 | data | | | | 2 | | | | | 8 | | | +----+---+ + + | | 1 | An Stop | Patient handed off to recovery nurse. | | | 3 | | | | | 5 | | | +----+---+ + + +------+ | Meds | +------+ + + + | Name | Total | + + + | fentaNYL injection (2 mL) | 100 mcg | + + + | propofol (DIPRIVAN) injection | 130 mg | | (bolus) (20 mL) | | + + + | lidocaine 2% | 100 mg | + + + | rocuronium | 50 mg | + + + | ondansetron | 4 mg | + + + | dexamethasone | 10 mg | + + + | HYDROmorphone | 2 mg | + + + | ceFAZolin (ANCEF, KEFZOL) 2 g in | 2 g | | sodium chloride 0.9% 50 mL IVPB | | + + + | Phenylephrine 10mg/mL VIAL | 1,859.92 mcg | + + + | gabapentin (NEURONTIN) capsule | 600 mg | | 600 mg | | + + + | acetaminophen (TYLENOL) tablet | 1 g | | 975 mg | | + + + | ketamine | 50 mg | + + + | lactated ringers (LR) infusion | 1,200 mL | + + + + + | Name | + + | N2O Flow Rate (L/Min) | + + | O2 Flow Rate (L/Min) | + + | Insp O2 | + + | Exp SEV | + + | Air Flow Rate (L/Min) | + + + + | No blood administrations on file. | + + +--------+ + + + | Type | Details | Placement | Removal | +--------+ + + + | Periph | 03/30/16; 1209; Left; | 03/30/16 1209 by | 03/31/16 1500 by | | eral | Antecubital; [id number] | Magdalena Burdick, RN | Tatiana Crowe, GRAYSON | | IV | catheter system; 20 gauge, 1 /4 | | | | | in length; (Type and screen); | | | | | distraction, intradermal | | | | | injection, tolerated well; no | | | | | longer indicated; short term use; | | | | | 03/31/16; 1500 | | | +--------+ + + + | Airway | Placement Date: 03/30/16; | 03/30/16 1358 by | 03/30/16 1628 by | | | Placement Time: 1358 (created via | Agata Mayen DO | Agata Mayen DO | | | procedure documentation); Mask | | | | | Ventilation: EZ; Airway Grade: 1; | | | | | Successful Technique: Mac; | | | | | Laryngoscope Blade Size: 3; | | | | | Attempts: 1; Airway Type: | | | | | endotracheal; Size: 7; Airway | | | | | Tube Secured At: 22; 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| Equipment: stylette; Placement | | | | | Check: exhaled CO2 detection | | | | | device, bilateral chest rise, | | | | | suprasternal notch palpation; | | | | | Removal Date: 03/30/16; Removal | | | | | Time: 1628 | | | +--------+ + + + | Read | 03/30/16; 1427; Right; neck; | 03/30/16 1427 by | 03/31/16 1500 by | | only - | healing within expectations; | Tera Gr RN | Tatiana Crowe RN | | | 03/31/16; 1500 | | | | Incisi | | | | | on | | | | +--------+ + + + | Drain/ | 03/30/16; 1610; #1; Right; | 03/30/16 1610 by | 03/31/16 1414 by | | Device | anterior; neck; collapsible | Jane Pillai RN | Tatiana Crowe RN | | Site | closed device; 10mm ROUND J-P; | | | | | short term use; 03/31/16; 1414 | | | +--------+ + + + [...] | | | | | | [place] [address] | | | | | | [phone] | | | | | | | | +--------+---------+ + + + | 07/30/ | Office | Cardiology | Agata Tinajero DO | | | 2019 | Visit | | [address] | | | | | | [place] | | | | | | [address] | | | | | | | | +--------+---------+ + + + documented as of this encounter Procedures + +--------+ + + + | Procedure Name | Priori | Date/Time | Associated Diagnosis | Comments | | | ty | | | | + +--------+ + + + | ANE AIRWAY NOTE | Routin | 03/30/2016 | | Results for this | | | e | 2:05 PM | | procedure are in the | | | | PDT | | results section. | + +--------+ + + + documented in this encounter Results Anesthesia Airway Note (03/30/2016 2:05 PM PDT) + + + | Narrative | Performed At | + + + | Agata Mayen DO 03/30/2016 14:05 Anesthesia | | | Airway Placement 03/30/2016 13:58 Preprocedure check: patient | | | identified, oxygen, airway assessed, suction, airway equipment | | | checked and patient reassessment prior to induction Mask | | | ventilation: easy Successful technique: Mac Laryngoscope blade | | | size: 3 Airway grade: 1 (Full view of glottis) Other equipment: | | | stylette Attempts: 1 Airway type: endotracheal Size: 7 Cuffed: | | | cuffed Route, reference point: right side of mouth Tube depth: 22 cm | | | Tube secured with: adhesive tape Trauma: none Tube placement | | | verification: bilateral chest rise, carbon dioxide detection and | | | suprasternal notch palpation Performing provider: AGATA MAYEN | | | RUBY | | + + + documented in [...] +---+---+ | | | +---+---+ + +---------+ +-----+---+---+ | ceFAZolin (ANCEF, KEFZOL) 2 g | New Bag | 03/30/20 | 2 g | | | | in sodium chloride 0.9% 50 mL | | 16 1:55 | | | | | IVPB 2 g, Intravenous, | | PM PDT | | | | | Administer over 30 Minutes, Prior | | | | | | | to Incision, Starting Fri | | | | | | | 03/30/16 at 1148, For 1 dose, | | | | | | | Administer within 1 hour of | | | | | | | surgical incision., Pre-op, | | | | | | | Indications: Surgical Prophylaxis | | | | | | + +---------+ +-----+---+---+ +---+---+ | | | +---+---+ + +-------+ +-------+---+---+ | dexamethasone (DECADRON) 10 | Given | 03/30/20 | 10 mg | | | | mg/mL injection Intravenous, | | 16 1:57 | | | | | PRN, Starting 03/30/16 at | | PM PDT | | | | | 1357, Anesthesia Intra-op | | | | | | + +-------+ +-------+---+---+ +---+---+ | | | +---+---+ + +-------+ +--------+---+---+ | fentaNYL (PF) injection | Given | 03/30/20 | 50 mcg | | | | Intravenous, PRN, Pain, Starting | | 16 2:04 | | | | | 03/30/16 at 1355, Anesthesia | | PM PDT | | | | | Intra-op | | | | | | + +-------+ +--------+---+---+ +-------+ +--------+---+---+ | Given | 03/30/20 | 50 mcg | | | | | 16 1:55 | | | | | | PM PDT | | | | +-------+ +--------+---+---+ +---+---+ | | | +---+---+ + +-------+ +--------+---+---+ | gabapentin (NEURONTIN) capsule | Given | 03/30/20 | 600 mg | | | | 600 mg 600 mg, Oral, ONCE, Fri | | 16 1:48 | | | [...] | | +---+---+ + +-------+ +--------+---+---+ | HYDROmorphone (DILAUDID) 2 | Given | 03/30/20 | 0.8 mg | | | | mg/mL injection Intravenous, | | 16 3:37 | | | | | PRN, Pain, Starting 03/30/16 | | PM PDT | | | | | at 1418, Anesthesia Intra-op | | | | | | + +-------+ +--------+---+---+ +-------+ +--------+---+---+ | Given | 03/30/20 | 0.4 mg | | | | | 16 3:01 | | | | | | PM PDT | | | | +-------+ +--------+---+---+ | Given | 03/30/20 | 0.8 mg | | | | | 16 2:18 | | | | | | PM PDT | | | | +-------+ +--------+---+---+ +---+---+ | | | +---+---+ + +-------+ +-------+---+---+ | ketamine 50 mg/mL injection | Given | 03/30/20 | 20 mg | | | | PRN, Starting Sat03/30/16 at | | 16 3:55 | | | | | 1356, Anesthesia Intra-op | | PM PDT | | | | + +-------+ +-------+---+---+ +-------+ +-------+---+---+ | Given | 03/30/20 | 30 mg | | | | | 16 1:56 | | | | | | PM PDT | | | | +-------+ +-------+---+---+ +---+---+ | | | +---+---+ + +---------+ +---+---+---+ | lactated ringers (LR) infusion | New Bag | 03/30/20 | | | | | at 10-100 mL/hr, Intravenous, | | 16 4:01 | | | | | CONTINUOUS, Starting 03/30/16 | | PM PDT | | | | | at 1215, TKO., Pre-op | | | | | | + +---------+ +---+---+---+ +---------+ +---+---+---+ | New Bag | 03/30/20 | | | | | | 16 1:51 | | | | | | PM PDT | | | | +---------+ +---+---+---+ +---+---+ | | | +---+---+ + +-------+ +--------+---+---+ | lidocaine (PF) 2% injection | Given | 03/30/20 | 100 mg | | | | Intravenous, PRN, Starting Fri | | 16 1:56 | | | | | 03/30/16 at 1356, Anesthesia | | PM PDT | | | | | Intra-op | | | | | | + +-------+ +--------+---+---+ +---+---+ | | | +---+---+ + +-------+ +------+---+---+ | ondansetron (ZOFRAN) injection | Given | 03/30/20 | 4 mg | | | | Intravenous, PRN, Nausea, | | 16 3:55 | | | | | Vomiting, Starting 03/30/16 | | PM PDT | | | | | at 1555, Anesthesia Intra-op | | | | | | + +-------+ +------+---+---+ +---+---+ | | | +---+---+ + + + + +-------+---+ | phenylephrine (OLAF-SYNEPHRINE) | Rate/Dos | 03/30/20 | 0.05 | 0.1 | | | 10 mg/mL injection Intravenous, | e Change | 16 4:07 | mcg/kg/m | mL/hr | | | CONTINUOUS PRN, Starting Fri | | PM PDT | in | | | | 03/30/16 at 1402, Anesthesia | | | | | | | Intra-op | | | | | | + + + + +-------+---+ + + + +-------+---+ | Rate/Dose Change | 03/30/20 | 0.15 | 0.1 | | | | 16 3:54 | mcg/kg/m | mL/hr | | | | PM PDT | in | | | + + + +-------+---+ | Rate/Dose Change | 03/30/20 | 0.25 | 0.1 | | | | 16 3:44 | mcg/kg/m | mL/hr | | | | PM PDT | in | | | + + + +-------+---+ +---+---+ | | | +---+---+ + +-------+ +--------+---+---+ | propofol (DIPRIVAN) injection | Given | 03/30/20 | 130 mg | | | | Intravenous, PRN, Starting Fri | | 16 1:56 | | | | | 03/30/16 at 1356, Anesthesia | | PM PDT | | | | | Intra-op | | | | | | + +-------+ +--------+---+---+ +---+---+ | | | +---+---+ + +-------+ +-------+---+---+ | rocuronium (ZEMURON) injection | Given | 03/30/20 | 50 mg | | | | Intravenous, PRN, Starting Fri | | 16 1:56 | | | | | 03/30/16 at 1356, Anesthesia | | PM PDT | | | | | Intra-op | | | | | | + +-------+ +-------+---+---+ +---+---+ | | | +---+---+ documented in this encounter"
--- OUTSIDE RECORDS SUMMARY | ~2019-05-12 | XMS | Encounter Summary ---
Demographics + + + | Address | [address] | | | [place] [address] | + + + | Home Phone | | + + + | Preferred Language | Unknown | + + + | Marital Status | | + + + | Church Affiliation | 1041 | + + + | Race | Unknown | + + + | Ethnic Group | Unknown | + + + Author + + + | Author | [facility] | | | and [place] | + + + | Organization | [facility] | | | and [place] | + + + | Address | Unknown | + + + | Phone | Unavailable | + + + Support + + + + + | Name | Relationship | Address | Phone | + + + + + | Lucy Winchester | ECON | [place], | | | | | [place] [address] | | + + + + + | Kellen Briones | ECON | [place] | | | | | [address] | | + + + + + Care Team Providers + +------+ + | Care Fur Tinter Name | Role | Phone | + [...] | | | [address] | [address] [place], [place] | | | | | [place], [place] | [address] | | | | | [address] | | | | | | [phone] | | | +--------+ + + + [...] | 2020 | Visit | | [address] | | | | | | [place], | | | | | | [place] [address] | | | | | | [phone] | | | | | | | | +--------+---------+ + + + | 07/30/ | Office | Cardiology | Agata Tinajero DO | | | 2019 | Visit | | [address] | | | | | | [place] | | | | | | [address] | | | | | | | [...] | A Obed: 1.09 m/s MV Dec Redwood: 3.29 m/s2 MV DecT: 238.09 ms | [...] TR Vmax: 2.69 m/s | | | Metal Flow Coordinator: DBS Authenticated by: BUCK SOTO MD Report | | | Date/Time: -- [id number]:20:29 | | + + + + + [...] | 4.30 cmLVPWd: 1.07 cmLVOT Area: 3.11 tb1VRLT Diam: 1.99 cm%FS: 46.50 %EF(Teich): | | [...] mlLAESV Index (A-L): 19.79 ml/m2LAAs A2C: 12.56 [id number] | | A-L A2C: 31.66 mlLALs A2C: 4.23 cmLAAs A4C: 13.43 ki5IXQRH A-L A4C: 33.50 | | mlLALs A4C: 4.57 cmRAAs: 11.82 nh8GZQOR A-L: 26.21 mlRAESV MOD: 26.46 mlRALs: | | 4.52 cmTAPSE: 1.59 cmAV maxP.72 mmHgAV meanP.52 mmHgAV Vmax: 1.63 m/Shreyas | | Vmean: 1.09 m/Shreyas VTI: 32.89 cmAVA Vmax: 2.19 cm2AVA (VTI): 1.98 im7XRLX | | (Vmax): 0.00 cm2/m2AVAI (VTI): 0.00 cm2/m2LVOT maxP.34 mmHgLVOT meanP.29 | | mmHgLVSI Dopp: 38.17 ml/m2LVSV Dopp: 65.27 mlLVOT Vmax: 1.15 m/sLVOT Vmean: | | 0.68 m/sLVOT VTI: 20.94 cmMV A Obed: 1.09 m/sMV Dec Redwood: 3.29 m/s2MV DecT: | | 238.09 msMV E Obed: 0.78 m/sMV E/A Ratio: 0.71MV PHT: 69.04 msMVA By PHT: 3.18 | | vx7Hhttzc e': 0.05 m/sSeptal E/e': 15.64Lateral e': 0.06 m/sLateral E/e': | | 11.34RAP: 5 mmHgRVSP: 33.95 mmHgTR maxP.95 mmHgTR Vmax: 2.69 m/s | | Metal Flow Coordinator: DBSAuthenticated by: Armen ROY Date/Time: -- | | [id number]:20:29 IMPRESSION: 1. Overall left ventricular systolic function [...] A Obed: 1.09 m/s | |MV Dec Redwood: 3.29 m/s2 | |MV DecT: 238.09 ms [...] |TR Vmax: 2.69 m/s | | | |Metal Flow Coordinator: DBS | |Authenticated by: BUCK SOTO MD | |Report Date/Time: [id number]_11:20:29 | | | |IMPRESSION: | |1. Overall [...]
--- OUTSIDE RECORDS SUMMARY | ~2019-05-12 | XMS | Encounter Summary ---
Demographics + + + | Address | [address] | | | [place] [address] | + + + | Home Phone [...] [place], | | | | | [place] [address] | | + + + + + | Kellen Briones | ECON | [place] | | | | | [address] | | + + + + + Care Team Providers + +------+ + | Care Shelf Filler Name | Role | Phone | + +------+ + | Barb Marte | THANG | | + +------+ + Encounter Details +--------+ + + + + | Date | Type | Department | Care Team | Description | +--------+ + + + + | 01/17/ | Imaging | [facility] MANUEL[facility]Josiane CARLOS REINALDO | Provider, | | | 2018 | Exam | [facility] | [address] | | | | | IMAGING | [place] | | | | | [phone] | [place] [address] | | +--------+ + + + + [...] | | | | | | [place] [address] | | | | | | [phone] | | | | | | | | +--------+---------+ + + + | 07/30/ | Office | Cardiology | TinajeroAgata joshiDO | | | 2019 | Visit | | [address] | | | | | | [place] | | | | | | [address] | | | | | | | [...]
--- OUTSIDE RECORDS SUMMARY | ~2019-05-12 | XMS | Encounter Summary ---
Demographics + + + | Address | [address] | | | [place] [address] | + + + | Home Phone | | + + + | Preferred Language | Unknown | + + + | Marital Status | | + + + | Sikh Affiliation | [phone] | + + + [...] [place], | | | | | [place] [address] | | + + + + + | Kellen Briones | ECON | [place], [place] | | | | | [address] | | + + + + + Care Team Providers + +------+ + | Care Seo Coordinator Name | Role | Phone | [...] [address] | | | | | [place], [place] | [place] [address] | | | | | [address] | [phone] | | | | | [phone] | | | +--------+ + + + [...] | | | | | | [place] [address] | | | | | | [phone] | | | | | | | | +--------+---------+ + + + | 07/30/ | Office | Cardiology | Agata Tinajero DO | | | 2019 | Visit | | [address] | | | | | | [place] | | | | | | [address] | | | | | | | | +--------+---------+ + + + documented as of this encounter Visit Diagnoses Not on filedocumented in this encounter"
--- OUTSIDE RECORDS SUMMARY | ~2019-05-12 | XMS | Encounter Summary ---
Demographics + + + | Address | [address] | | | [place] [address] | + + + | Home Phone [...] [place], | | | | | [place] [address] | | + + + + + | Kellen Briones | ECON | [place], [place] | | | | | [address] | | + + + + + Care Team Providers + +------+ + | Care Painting Worker Name | Role | Phone | + +------+ + | Barb Marte | PCP | | + +------+ + Reason for Visit + + + | Reason | Comments | + + + | Imaging Only | | + + + Encounter Details +--------+ + + + + | Date | Type | Department | Care Team | Description | +--------+ + + + + | 11/05/ | Telephone | [facility] | Irving Becerril, | Imaging Only | | 2017 | | NEUR[address] | DO [address] | | | | | [address] | [address] [place], [place] | | | | | [place], [place] | [id number] | | | | | [address] | | | | | | [phone] | | | +--------+ + + + [...] | | | | | | [place] [address] | | | | | | [phone] | | | | | | | | +--------+---------+ + + + | 07/30/ | Office | Cardiology | Agata Tinajero DO | | | 2019 | Visit | | [address] | | | | | | [place] | | | | | | [address] | | | | | | | | +--------+---------+ + + + documented as of this encounter Visit Diagnoses Not on filedocumented in this encounter"
--- OUTSIDE RECORDS SUMMARY | ~2019-05-12 | XMS | Encounter Summary ---
Demographics + + + | Address | [address] | | | [place] [address] | + + + | Home Phone | | + + + | Preferred Language | Unknown | + + + | Marital Status | | + + + | Taoist Affiliation | 1041 | + + + | Race | Unknown | + + + | Ethnic Group | Unknown | + + + Author + + + | Author | [facility] | | | and [place] | + + + | Organization | [facility] | | [...] [place], | | | | | [place] [address] | | + + + + + | Kellen Briones | ECON | [place] | | | | | [address] | | + + + + + Care Team Providers + +------+ + | Care Abstractor Name | Role | Phone | + [...] + + | 04/02/ | Office | [facility] | Agata Tinajero DO | Atherosclerosis of | | 2019 | Visit | CARDIOLOGY [place] | [address] | [place] coronary | | | | [address] | [place], [place] | artery of [place] | | | | [address] | [id number] | heart without angina | | | | [place] | | pectoris (Primary | | | | [address] | | Dx); Essential | | | | [phone] | | hypertension; | | | | [...] Agata Tinajero, - 04/02/2019 2:00 PM PDT [facility] Cardiology Cardiology Follow Up Note Reason for Consultation: Chest pain Requesting Physician: Barb Marte History Obtained From: patient HISTORY OF PRESENT ILLNESS: Cardiac Problem List 1. CAD s/p CABGx4 in [facility] 2009 S/P WEBSTER to LAD, SVG-OM1, OM2, [...] proximal segment and was filling distally via nkpl-uj-jbpuo collaterals. LEFT VENTRICULOGRAM Left ventriculogram revealed normal left ventricular systolic function with ejection fraction of 60% with severe posterobasal hypokinesis. Carotid US: AAA screening: Lower extremity US: OTHERS: ASSESSMENT & PLAN 1. Pre operative cardiovascular exam 2. CAD s/p CABGx4 in [facility] 2009 S/P WEBSTER to LAD, SVG-OM1, OM2, PDA 2009 3. HTN 4. History CVA 5. HLD 6. DM II 7. Arthritis 8. Asthma 9. Chronic pain 10. DDD 11. GERD 12. History right breast CA s/p mastectomy and chemo - The patient is a 78-year-old female with the above past medical history who presents to [facility] cardiology office for follow up. She has [...] in this enco unter Plan of Treatment +--------+---------+ + + + | Date | Type | Specialty | Care Team | Description | +--------+---------+ + + + | 05/14/ | Office | Orthopedic Surgery | Monster White MD | | | 2018 | Visit | | [address] | | | | | | [place], | | | | | | [place] [address] | | | | | | [phone] | | | | | | | | +--------+---------+ + + + | 07/30/ | Office | Cardiology | Agata Tinajero DO | | | 2019 | Visit | | [address] | | | | | | [place] | | | | | | [address] | | | | | | | | +--------+---------+ + + + documented as of this encounter Visit Diagnoses + + | Diagnosis | + + | Atherosclerosis of [place] coronary artery of [place] heart without angina pectoris - | | Primary | + + | Essential hypertension Unspecified essential hypertension | + + | Cerebrovascular accident (CVA), unspecified mechanism (HCC) | + + | Other hyperlipidemia | + + | H/O CABG (coronary artery bypass graft) Postsurgical aortocoronary bypass status | + + documented in this encounter
--- OUTSIDE RECORDS SUMMARY | ~2019-05-12 | XMS | Encounter Summary ---
Demographics + + + | Address | [address] | | | [place] [address] | + + + | Home Phone [...] | Organization | [facility] | | | and [place] | + + + | Address | Unknown | + + + | Phone | Unavailable | + + + Support + + + + + | Name | Relationship | Address | Phone | + + + + + | Lucy Winchester | ECON | [place], | | | | | [place] [address] | | + + + + + | Kellen Briones | ECON | [place] | | | | | [address] | | + + + + + Care Team Providers + +------+ + | Care Gas Mask Inspector Name | Role | Phone | + +------+ + | Barb Marte | THANG | | + +------+ + Encounter Details +--------+ + + + + | Date | Type | Department | Care Team | Description | +--------+ + + + + | 01/17/ | Imaging | [facility] CARLOS REINALDO | Provider, | | | 2018 | Exam | MED CTR EXTERNAL | MD [address] | | | | | IMAGING | [place] | | | | | [phone] | [place] [address] | | +--------+ + + + + [...] | | | | | | [place] [address] | | | | | | [phone] | | | | | | | | +--------+---------+ + + + | 07/30/ | Office | Cardiology | TinajeroAgata joshiDO | | | 2019 | Visit | | [address] | | | | | | [place] | | | | | | [address] | | | | | | | [...]
--- OUTSIDE RECORDS SUMMARY | ~2019-05-12 | XMS | Encounter Summary ---
Demographics + + + | Address | [address] | | | [place] [address] | + + + | Home Phone [...] | Author | [facility] | | | and [place] | + + + | Organization | [facility] | | [...] [place], | | | | | [place] [address] | | + + + + + | Kellen Briones | ECON | [place], [place] | | | | | [address] | | + + + + + Care Team Providers + +------+ + | Care Ostomy Care Nurse Name | Role | Phone | [...] + + | 12/23/ | Telephone | [facility] | Gonzalo Mathew MD | Records Request | | 2014 | | NEUROSURGERY [address] | [address] | (CARDIOLOGY | | | | [address] | [place] [address] | CLEARANCE) | | | | [place] | [phone] | | | | | [address] | | | | | | [phone] | | | +--------+ + + + [...] | | | | | | [place] [address] | | | | | | [phone] | | | | | | | | +--------+---------+ + + + | 07/30/ | Office | Cardiology | Agata Tinajero DO | | | 2019 | Visit | | [address] | | | | | | [place] | | | | | | [address] | | | | | | | | +--------+---------+ + + + documented as of this encounter Visit Diagnoses Not on filedocumented in this encounter"
--- OUTSIDE RECORDS SUMMARY | ~2019-05-12 | XMS | Encounter Summary ---
Demographics + + + | Address | [address] | | | [place] [address] | + + + | Home Phone [...] [place], | | | | | [place] [address] | | + + + + + | Kellen Briones | ECON | [place], [place] | | | | | [address] | | + + + + + Care Team Providers + +------+ + | Care Stitch Burnisher Name | Role | Phone | + [...] | Lumbar | [place], | [address] | | | | | radiculopath | Tk Monreal MD | [place], | | | | | y | [address] | [place] | | | | | Procedures | [place] | [address] | | | | | [place] INJECT | [facility], [place] | Phone: | | | | | ANES/STEROID | [address] | [phone] | | | | | FORAMEN | Phone: | Fax: | | | | | LUMBAR/SACRA | [phone] | [phone] | | | | | L W IMG | Fax: | | | | | | GUIDE ,1 | [phone] | | | | | | LEVEL [place] | | | | | | | TRIAMCINOLON | | | | | | | E ACET INJ | | | | | | | NOS, 10 MG | | | | | | | Appt 06/27/16 | | | | | | | Bilateral | | | | | | | L5/S1 TFESI | | | +--------+--------+ + + + + Encounter Details +--------+ + + + + | Date | Type | Department | Care Team | Description | +--------+ + + + + | 06/27/ | Hospital | [facility] | Bogdanowicz, | Lumbar | | 2017 | Encounter | MED CTR XRAY [address] | [address]YAAN [address] | radiculopathy; | | | | [place] | [facility], | Spinal stenosis of | | | | [place] [address] | [place] [address] | lumbar region with | | | | [phone] | [phone] | jcmnghicnkxvh-Z6-W2 | | | | | | level moderately | | | | | Steward Dishwasher, [place] | severe; DDD | | | | [...] +---------+ + + | Blood Pressure | 191/80 | 06/27/2016 3:31 PM | | | | | PST | | + +---------+ + + | Pulse | 81 | 06/27/2016 3:31 PM | | | | | PST [...] tablets by | 120 | 0 | 06/18/19 | | | HYDROcodone-acetamin | mouth every 4 hours | tablet | | 17 | 7 | | ophen (NORCO) 10-325 | as [...] | | | | | | [place] [address] | | | | | | [phone] | | | | | | | | +--------+---------+ + + + | 07/30/ | Office | Cardiology | Agata Tinajero DO | | | 2019 | Visit | | [address] | | | | | | [place] | | | | | | [address] | | | | | | | | +--------+---------+ + + + documented as of this encounter Procedures + +--------+ + + + | Procedure Name | Priori | Date/Time | Associated Diagnosis | Comments | | | ty | | | | + +--------+ + + + | FL EPIDURAL STEROID | Routin | 06/27/2016 | Lumbar | Results for this | | INJECTION LUMBAR | e | 2:59 PM | radiculopathy | procedure are in the | | TRANSFORAMINAL | | PST | Spinal stenosis of | results section. | | | | | lumbar region with | | | | | | fmfyvgdyqcfkm-T2-V8 | | | | | | level moderately | | | | | | severe DDD | | | | | | (degenerative disc | | | | | | disease), lumbar | | | | | | Spondylolisthesis [...] 06/27/2016 Bilateral Transforaminal Epidural Steroid Injections | TIMOTHY | | Diagnosis: Lumbar radiculopathy ICD-10 Code M54.16 Clementine | [facility] | | Lizett [place] presents to the fluoroscopy suite for [facility] | | fluoroscopically-guided bilateral L5-S1 transforaminal [...] ST. | [address] | [place], [place] | [phone] | | [facility] | | [address] | | | - IMAGING | | | | + + + + + documented in this encounter Visit Diagnoses + + | Diagnosis | + + | Lumbar radiculopathy Thoracic or lumbosacral neuritis or radiculitis, unspecified | + + | Spinal stenosis of lumbar region with ssvakllvoypoi-B0-N1 level moderately severe | | Spinal stenosis, [...] +-------+------+------+ | betamethasone (CELESTONE | Given | 06/27/19 | 12 mg | | | | SOLUSPAN) injection 12 mg 12 mg, | | 17 3:12 | | | | | Other, ONCE, Sat06/27/16 at | | PM PST | | | | | 1515, For 1 dose, Shake well. Not | | | | | | | for IV use., | | | | | | + +--------+ +-------+------+------+ +---+---+ | | | +---+---+ + +-------+ +-------+---+---+ | iohexol (OMNIPAQUE 300) 300 | Given | 06/27/19 | 4 mLs | | | | mg/mL injection 4 mL 4 mL, | | 17 3:09 | | | | | Other, ONCE, Sat06/27/16 at 1515, | | PM PST | | | | | For 1 dose | | | | | | + +-------+ +-------+---+---+ +---+---+ | | | +---+---+ + +-------+ +-------+---+---+ | lidocaine (PF) 1% injection 2 | Given | 06/27/19 | 2 mLs | | | | mL 2 mL, Other, ONCE, Wed | | 17 3:12 | | | | | 06/27/16 at 1515, For 1 dose | | PM PST | | | | + +-------+ +-------+---+---+ +---+---+ | | | +---+---+ + +-------+ +-------+---+---+ | lidocaine 1% injection 8 mL 8 | Given | 06/27/19 | 8 mLs | | | | mL, Other, ONCE, 06/27/16 at | | 17 3:05 | | | | | 1515, For 1 dose | | PM PST | | | | + +-------+ +-------+---+---+ +---+---+ | | | +---+---+ + +-------+ +-------+---+---+ | sodium bicarbonate (NEUT) 4% | Given | 06/27/19 | 2 mLs | | | | injection 2 mL 2 mL, | | 17 3:05 | | | | | Infiltration, ONCE, 06/27/16 | | PM PST | | | | | at 1515, For 1 dose, Use for | | | | | | | addition to other parenteral | | | | | | | solutions., | | | | | | + +-------+ +-------+---+---+ +---+---+ | | | +---+---+ documented in this encounter"
--- OUTSIDE RECORDS SUMMARY | ~2019-05-12 | XMS | Encounter Summary ---
Demographics + + + | Address | [address] | | | [place] [address] | + + + | Home Phone [...] [place], | | | | | [place] [address] | | + + + + + | Kellen Briones | ECON | [place], [place] | | | | | [address] | | + + + + + Care Team Providers + +------+ + | Care Weave Room Supervisor Name | Role | Phone | [...] | Lumbar | [place], | [address] | | | | | radiculopath | Tk Monreal MD | [place], | | | | | y | [address] | [place] | | | | | Procedures | [place] | [address] | | | | | [place] INJECT | [place], [place] | Phone: | | | | | ANES/STEROID | [address] | [phone] | | | | | FORAMEN | Phone: | Fax: | | | | | LUMBAR/SACRA | [phone] | [phone] | | | | | L W IMG | Fax: | | | | | | GUIDE ,1 | [phone] | | | | | | LEVEL [...] + + | 09/29/ | Hospital | [facility] | Mono Diaz, | Lumbar radiculopathy | | 2019 | Encounter | MED CTR XRAY [address] | PA-C [address] | | | | | [place] | [address] [place] | | | | | [place] [address] | [place] [address] | | | | | [phone] | [phone] | | | | | | | | | | | | Lumber Stacker Operator, [facility] | | +--------+ + + + [...] | 2019 | Visit | | [address] | | | | | | [place] | | | | | | [place] [address] | | | | | | [phone] | | | | | | | | +--------+---------+ + + + | 07/30/ | Office | Cardiology | Agata TinajeroDO | | | 2019 | Visit | | [address] | | | | | | [place] | | | | | | [address] | | | | | | | [...] + + | Performing | Address | City/State/[facility] | Phone Number | | Organization | [...]
--- OUTSIDE RECORDS SUMMARY | ~2019-05-12 | XMS | Encounter Summary ---
Demographics + + + | Address | [address] | | | [place] [address] | + + + | Home Phone [...] [place], | | | | | [place] [address] | | + + + + + | Kellen Briones | ECON | [place], [place] | | | | | [address] | | + + + + + Care Team Providers + +------+ + | Care Fire Medic Name | Role | Phone | + +------+ + | Anna De Guzman PA-C | PCP | | + +------+ + Encounter Details +--------+ + + + + | Date | Type | Department | Care Team | Description | +--------+ + + + + | 06/23/ | Hospital | [facility] | Chris Longo MD | | | 2012 - | Encounter | MED CTR XRAY [address] | [address] [facility] | | | | | [place] | [place] | | | 06/25/ | | [place] [address] | [address] | | | 2012 | | [phone] | [phone] | | | | | | | [...] | 2019 | Visit | | [address] | | | | | | [place], | | | | | | [place] [address] | | | | | | [phone] | | | | | | | | +--------+---------+ + + + | 07/30/ | Office | Cardiology | Agata Tinajero DO | | | 2019 | Visit | | [address] | | | | | | [place] | | | | | | [address] | | | | | | | [...] Performed At | + + + | [facility] Diagnostic Imaging | [place] | | Department [address], [place] | [facility] | | [ rep [address]] [ rep [facility] | | st zip] Signed | - IMAGING | | | | | Patient Name: PEDRODAXACISCO TALBERTLOCO Hand Physician: | | | CHAP.20 : 1940 Age: 72 Sex: F Unit #: [id number] | | | Exam Date: 06/23/12 Location: [facility] | | | Report #: [id number] Page: | | | %(RAD)RES..mtdd.print.filter("pg") of %(RAD) | | | RES..mtdd.print.filter("tpg") | | | | | | Accession Number: [id number] | | | UNENHANCED MRA HEAD WITH THREE-DIMENSIONAL VASCULAR RECONSTRUCTION, | | | 06/23/2012 CLINICAL HISTORY: 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 COMPARISON: Brain | | | MRI from the same day. TECHNIQUE: Axial unenhanced 3D | | | quiu-ro-czhpkp MRA images are performed through the [place] | | | and major [...] Transcribed | | | Date/Time: 06/24/2012 10:05 Automotive Brake Adjuster: | | | <<Signature on File>> | | | Papito Garcia | | | MD Augustus06/24/122052 <Electronically signed by Papito Coffman MD> | | | Papito Coffman MD 06/24/1231 Automotive Brake Adjuster: | | | [employer] Hncrfwrixvqvk41/22/13 1005 Chris Longo MD | | | | | + + + + + + + + | Performing | Address | City/State/Zipcode | Phone Number | | Organization | | | | + + + + + | [facility] | [address] | [place] | [phone] | | [facility] | | [address] | | | - IMAGING | | | | + + + + + MRI Brain w wo Contrast (06/24/2012 9:51 AM PST) + + | Specimen | + + | | + + + + + | Narrative | Performed At | + + + | [facility] Diagnostic Imaging | [place] | | Department [address] [place] | [facility] | | [ rep ct [address]] [ rep [facility] | | st zip] Signed | - IMAGING | | | | | Patient Name: CLEMENTINE NUNEZ Physician: | | | CHAP.20 : 1940 Age: 72 Sex: F Unit #: [id number] | | | Exam Date: 06/23/12 Location: [facility] | | | Report #: [id number] Page: | | | %(RAD)RES..mtdd.print.filter("pg") of %(RAD) | | | RES..mtdd.print.filter("tpg") | | | | | | Accession Number: [id number] | | | UNENHANCED AND ENHANCED BRAIN [...] Transcribed Date/Time: 06/24/2012 10:00 | | | Automotive Brake Adjuster: <<Signature on File>> | | | Papito Avendaño | Jose Coffman MD06/24/12 551 <Electronically signed by Papito Coffman | | | MD> [place] [address] Automotive Brake Adjuster: | | | [employer] Chhmczoonqjtu68/22/13 Brigida Longo MD | | | | | + + + + + + + + | Performing | Address | City/State/Zipcode | Phone Number | | Organization | | | | + + + + + | [facility] | [address] | [place] | [phone] | | [facility] | | [address] | | | - IMAGING | | | | + + + + + documented in this encounter Visit Diagnoses Not on filedocumented in this encounter
--- OUTSIDE RECORDS SUMMARY | ~2019-05-12 | XMS | Encounter Summary ---
Demographics + + + | Address | [address] | | | [place] [address] | + + + | Home Phone | | + + + | Preferred Language | Unknown | + + + | Marital Status | | + + + | Religion Affiliation | 1041 | + + + | Race | Unknown | + + + | Ethnic Group | Unknown | + + + Author + + + | Author | [facility] | | | and [place] | + + + | Organization | [facility] | | | and [place] | + + + | Address | Unknown | + + + | Phone | Unavailable | + + + Support + + + + + | Name | Relationship | Address | Phone | + + + + + | Lucy Winchester | ECON | [place], | | | | | [place] [address] | | + + + + + | Kellen Briones | ECON | [place] | | | | | [address] | | + + + + + Care Team Providers + +------+ + | Care Mold Stamper Name | Role | Phone | + [...] [address] | [address] [place], [place] | (Primary Dx) | | | | [place], [place] | [address] | | | | | [address] | | | | | | [phone] | | | +--------+ + + + [...] | 2018 | Visit | | [address] | | | | | | [place] | | | | | | [place] [address] | | | | | | [phone] | | | | | | | | +--------+---------+ + + + | 07/30/ | Office | Cardiology | Agata Tinajero DO | | | 2019 | Visit | | [address] | | | | | | [place] | | | | | | [address] | | | | | | | [...] + + | Performing | Address | City/State[facility] | Phone Number | [...]
--- OUTSIDE RECORDS SUMMARY | ~2019-05-12 | XMS | Encounter Summary ---
Demographics + + + | Address | [address] | | | [place] [address] | + + + | Home Phone | | + + + | Preferred Language | Unknown | + + + | Marital Status | | + + + | [employer] Affiliation | 1041 | + + + [...] [place], | | | | | [place] [address] | | + + + + + | Kellen Briones | ECON | [place], [place] | | | | | [address] | | + + + + + Care Team Providers + +------+ + | Care Windows Technical Specialist Name | Role | Phone | + +------+ + | Anna De Guzman PA-C | PCP | | + +------+ + Encounter Details +--------+ + + + + | Date | Type | Department | Care Team | Description | +--------+ + + + + | 04/15/ | Hospital | [facility] | IsakkaydenkaileeTk mathis | | | 2012 | Encounter | MED CTR XRAY [address] | T, [address] | | | | | [place] | [place], [place] | | | | | [place] [address] | [id number] | | | | | [phone] | | | +--------+ + + + [...] | | | | | | [place] [address] | | | | | | [phone] | | | | | | | | +--------+---------+ + + + | 07/30/ | Office | Cardiology | Agata Tinajero DO | | | 2019 | Visit | | [address] | | | | | | [place] | | | | | | [address] | | | | | | | [...] Performed At | + + + | [facility] Diagnostic [facility] | [place] | | Department [address] [facility] | [facility] | | [ rep ct [address]] [ rep [facility] | | [facility]] Signed | - IMAGING | | | | | Patient Name: CLEMENTINE NUNEZ Physician: | | | : 1940 Age: 72 Sex: F Unit #: [id number] | | | Exam Date: 04/15/13 Location: [facility] | | | Report #: [id number] Page: | | | %(RAD)RES..mtdd.print.filter("pg") of %(RAD) | | | RES..mtdd.print.filter("tpg") | | | | | | Accession Number: [id number] | | | EPIDURAL STEROID INJECTION, 04/15/2013 CLINICAL HISTORY: | | | ICD-9 CODE 724.4, LUMBAR RADICULOPATHY. Ms. Clementine Nunez | | | presents to the fluoroscopic [...] Transcribed | | | Date/Time: 04/17/2013 14:04 Mill Supervisor: | | | <<Signature on File>> | | | Tk Monreal | | | MD Marissa04/24/13 1211 <Electronically signed by Tk Monreal | | | Marissa ALVARADO> Tk Ann MD 04/17/13 1256 | | | Mill Supervisor: [employer] Ypmgzrniilixh65/15/13 1404 | | | | | + + + + + + + + | Performing | Address | City/State/Zipcode | Phone Number | | Organization | | | | + + + + + | [facility] [facility] | [address] | [place] | [phone] | | [facility] | | [address] | | | - IMAGING | | | | + + + + + documented in this encounter Visit Diagnoses Not on filedocumented in this encounter
--- OUTSIDE RECORDS SUMMARY | ~2019-05-12 | XMS | Encounter Summary ---
Demographics + + + | Address | [address] | | | [place] [address] | + + + | Home Phone [...] | Author | [facility] | | | and [place] | + + + | Organization | [facility] | | [...] [place], | | | | | [place] [address] | | + + + + + | Kellen Briones | ECON | [place], [place] | | | | | [address] | | + + + + + Care Team Providers + +------+ + | Care Commercial Drone Pilot Name | Role | Phone | [...] + + | 04/06/ | Telephone | [facility] | Irving Becerril, | Other (Post op call) | | 2015 | | NEUROSURGERY [address] | DO [address] | | | | | [address] [facility] [address] | [address] [place], [place] | | | | | [place], [place] | [id number] | | | | | [address] | | | | | | [phone] | | | +--------+ + + + [...] | | | | | | [place] [address] | | | | | | [phone] | | | | | | | | +--------+---------+ + + + | 07/30/ | Office | Cardiology | Agata Tinajero DO | | | 2019 | Visit | | [address] | | | | | | [place] | | | | | | [address] | | | | | | | | +--------+---------+ + + + documented as of this encounter Visit Diagnoses Not on filedocumented in this encounter"
--- OUTSIDE RECORDS SUMMARY | ~2019-05-12 | XMS | Encounter Summary ---
Demographics + + + | Address | [address] | | | [place] [address] | + + + | Home Phone [...] [place], | | | | | [place] [address] | | + + + + + | Kellen Briones | ECON | [place] | | | | | [address] | | + + + + + Care Team Providers + +------+ + | Care Transportation Director Name | Role | Phone | + +------+ + | Barb Marte | THANG | | + +------+ + Encounter Details +--------+ + + + + | Date | Type | Department | Care Team | Description | +--------+ + + + + | 11/05/ | Hospital | [facility] | Irving Becerril, | Status post cervical | | 2018 | Encounter | MED CTR XRAY [address] | DO [address] | spinal fusion | | | | [place] | [address] | | | | | [place] [address] | [address] | | | | | [phone] | | | +--------+ + + + [...] | | | | | | [place] [address] | | | | | | [phone] | | | | | | | | +--------+---------+ + + + | 07/30/ | Office | Cardiology | Agata Tinajero DO | | | 2019 | Visit | | [address] | | | | | | [place] | | | | | | [address] | | | | | | | [...]
--- OUTSIDE RECORDS SUMMARY | ~2019-05-12 | XMS | Encounter Summary ---
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 | | | | | | without complication | | | | | | ([facility]); Essential | | | | | | hypertension; | | | | | | Syncope and | | | | | | collapse; Cancer | | | | | | ([facility]); 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| | hyperlipidemia; ST | | | | | | elevation myocardial | | | | | | infarction (STEMI), | | | | | | unspecified artery | | | | | | ([facility]); | | | | | [...] with | | | | | | hdmnjfafaqmzg-T3-M9 | | | | | | level [...] region | | | | | | ([facility]); DDD | | | | [...] | | | | | | [place] [address] | | | | | | [phone] | | | | | | | | +--------+---------+ + + + | 07/30/ | Office | Cardiology | Agata Tinajero DO | | | 2019 | Visit | | [address] | | | | | | [place] | | | | | | [address] | | | | | | | [...] involving | | | | | | newtok coronary | | | | | | artery of newtok | | | | | | heart [...] with | | | | | | aojyzjnttlxye-M0-V4 | | | | | | level [...] involving | | | | | | newtok coronary | | | | | | artery of newtok | | | | | | heart [...] with | | | | | | usmebegfcyucl-T9-K2 | | | | | | level [...] involving | | | | | | newtok coronary | | | | | | artery of newtok | | | | | | heart [...] with | | | | | | nrlhkfzfmkzau-W2-B4 | | | | | | level [...] involving | | | | | | newtok coronary | | | | | | artery of newtok | | | | | | heart [...] with | | | | | | hkhcrhkvqmhxs-O2-R8 | | | | | | level [...] involving | | | | | | newtok coronary | | | | | | artery of newtok | | | | | | heart without angina | | | | | | pectoris 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 | | | | | | without complication | | | | | | ([facility]) Essential | | | | | | hypertension | | | | | | Syncope and collapse | | | | | | Cancer ([facility]) | | | | | | Other [...] with | | | | | | szhidzkswqsok-N4-C9 | | | | | | level [...] | 0.96 | 0.60 - 1.30 | [facility] | | | | | mg/dL | [facility] | | | | | | MEDICAL | | | | | | CENTER - | | | | | | LABORATORY | | + + + + + + | eGFR if not | 57 (L)Comment: | >=60 | [place] | | | | GLOMERULAR FILTRATION | mL/min/1.73m2 | [facility] | | | SWISS | RATE,ESTIMATED | | MEDICAL | | | | mL/min/1.59r8Hysm than | | CENTER - | | [...] | 8.4 | 8.3 - 10.5 | [facility] | | | | | mg/dL | [facility] | | | | | | MEDICAL [...] [address] | [place] | [phone] | | [facility] | | [address] | | | - LABORATORY | | [...] [facility] | | | | | | [facility] | | | | | | MEDICAL [...] + | [facility] | [address] | [place] | [phone] | | [facility] | | [address] | | | - LABORATORY | | [...] + | [facility] | [address] | [place] | [phone] | | [facility] | | [address] | | | - LABORATORY | | [...] | Neutrophils | | K/uL | [facility] | | | | | | MEDICAL | | | | | | CENTER - | | | | | | LABORATORY | | + +-------+ + + + | Absolute | 2.40 | 0.60 - 3.20 | [facility] | | | Lymphocytes | | K/uL | [facility] | | | | | | MEDICAL | | | | | | CENTER - | | | | | | LABORATORY | | + +-------+ + + + | Absolute | 0.70 | 0.00 - 1.00 | [facility] | | | Monocytes | | K/uL | [facility] | [...] + | [facility] | [address] | [place] | [phone] | | [facility] | | [address] | | | - LABORATORY | | | | + + + + + Culture, MRSA (03/07/2016 3:20 PM PDT) + + + + + + | Component | Value | Ref Range | Performed | Pathologist | | | | | At | Signature | + + + + + + | Culture | Negative for MRSA by | | [facility] | | | | chromogenic agar method | | [facility] | | | | | | MEDICAL | | | | | | CENTER - | | | | | | LABORATORY | | + + + + + + | Culture | 2+ Coagulase positive | | [facility] | | | | Staphylococcus | | [facility] | | | | | | [...] [address] | [place] | [phone] | | [facility] | | [address] | | | - LABORATORY | | [...] | | | | CYNTHIA KIRBY MD ([id number]) | | | | | | on [...] + + | 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
--- OUTSIDE RECORDS SUMMARY | ~2019-05-12 | XMS | Encounter Summary ---
Demographics + + + | Address | [address] | | | [place] [address] | + + + | Home Phone [...] [place], | | | | | [place] [address] | | + + + + + | Kellen Briones | ECON | [place], [place] | | | | | [address] | | + + + + + Care Team Providers + +------+ + | Care Environmental Analyst Name | Role | Phone | [...] + + | 03/28/ | Telephone | [facility] | Irving Becerril, | Surgery Appointment | | 2015 | | NEUROSURGERY [address] | DO [address] | (reminder ) | | | | [address] | [address] [place], [place] | | | | | [place], [place] | [address] | | | | | [address] | | | | | | [phone] | | | +--------+ + + + [...] | | | | | | [place] [address] | | | | | | [phone] | | | | | | | | +--------+---------+ + + + | 07/30/ | Office | Cardiology | Agata Tinajero DO | | | 2019 | Visit | | [address] | | | | | | [place] | | | | | | [address] | | | | | | | | +--------+---------+ + + + documented as of this encounter Visit Diagnoses Not on filedocumented in this encounter"
--- OUTSIDE RECORDS SUMMARY | ~2019-05-12 | XMS | Encounter Summary ---
Demographics + + + | Address | [address] | | | [place] [address] | + + + | Home Phone [...] [place], | | | | | [place] [address] | | + + + + + | Kellen Briones | ECON | [place], [place] | | | | | [address] | | + + + + + Care Team Providers + +------+ + | Care Service Crew Supervisor Name | Role | Phone | [...] Thoracic or | [place], | [address] | | | | | lumbosacral | Tk Monreal MD | [place], | | | | | neuritis or | [address] | [place] | | | | | | ST [place] | [address] | | | | | radiculitis, | [place], [place] | Phone: | | | | | unspecified | [address] | [phone] | | | | | Procedures | Phone: | Fax: | | | | | [place] INJECT | [phone] | [phone] | | | | | ANES/STEROID | Fax: | | | | | | FORAMEN | [phone] | | | | | | LUMBAR/SACRA | | | | | | | L W IMG | | | | | | | GUIDE ,1 | | | | | | | LEVEL VA | | | | | | | [...] + + | 02/02/ | Hospital | [facility] | [place], | Spinal stenosis of | | 2013 | Encounter | MED CTR XRAY [address] | [place] [address] | lumbar region with | | | | [address] [place] | [facility], | rtnutlmdzpvfu-G1-O2 | | | | [place] [address] | [place] [address] | level moderately | | | | [phone] | [phone] | severe (Primary Dx); | | | | | | Spondylolisthesis | | | | | Tk Ann, | of lumbar region; | | | | | MD [address] | Lumbar radiculopathy | | | | | [place] | | | | | | [id number] | | | | | | | | | | | | Cooker ChipJordan | | +--------+ + + + + [...] | 2018 | Visit | | [address] | | | | | | [place] | | | | | | [place] [address] | | | | | | [phone] | | | | | | | | +--------+---------+ + + + | 07/30/ | Office | Cardiology | Agata Tinajero DO | | | 2019 | Visit | | [address] | | | | | | [place] | | | | | | [address] | | | | | | | [...] | | TRANSFORAMINAL | | PDT | [id number] | results section. | | | | [...] 02/02/2014 Bilateral Transforaminal Epidural Steroid Injections | [place] | | Diagnosis: Lumbar radiculopathy ICD-9 Code 724.4 Clementine Phoenix | [facility] | | Annabella presents to the [...] | + + + + + | [address] | [address] | [place] | [phone] | | [facility] | | [address] | | | - IMAGING | | | | + + + + + documented in this encounter Visit Diagnoses + + | Diagnosis | + + | Spinal stenosis of lumbar region with bpmfpgunelumh-C0-L0 level moderately severe - | | Primary [...] 4:54 | | | | | ONCE, Laurel 02/02/14 at 1700, For 1 | | PM PDT | | | | | dose | | | | | | + +-------+ +-------+---+---+ +---+---+ | | | +---+---+ documented in this encounter"
--- OUTSIDE RECORDS SUMMARY | ~2019-05-12 | XMS | Encounter Summary ---
Demographics + + + | Address | [address] | | | [place] [address] | + + + | Home Phone [...] [place], | | | | | [place] [address] | | + + + + + | Kellen Briones | ECON | [place], [place] | | | | | [address] | | + + + + + Care Team Providers + +------+ + | Care Silk Snapper Name | Role | Phone | + [...] | 05/09/ | Refill | [facility] | Chavo Jacob, | Medication Refill | | 2015 | | NEUROSURGERY [address] | PA-C [address] | | | | | [address] | [address] [facility] | | | | | [place], [place] | [place] [address] | | | | | [address] | [phone] | | | | | [phone] | | | +--------+--------+ + + + [...] [place] | | | | | [place] [address] | | | | | | [phone] | | | | | | | | +--------+---------+ + + + | 07/30/ | Office | Cardiology | Agata Tinajero DO | | | 2019 | Visit | | [address] | | | | | | [place] | | | | | | [address] | | | | | | | | +--------+---------+ + + + documented as of this encounter Visit Diagnoses Not on filedocumented in this encounter"
--- OUTSIDE RECORDS SUMMARY | ~2019-05-12 | XMS | Encounter Summary ---
Demographics + + + | Address | [address] | | | [place] [address] | + + + | Home Phone [...] [place], | | | | | [place] [address] | | + + + + + | Kellen Briones | ECON | [place], [place] | | | | | [address] | | + + + + + Care Team Providers + +------+ + | Care Materials Research Engineer Name | Role | Phone | [...] | | | | | Lumbar | [place], | [address] | | | | | radiculopath | Tk Monreal MD | [place], | | | | | y | [address] | [place] | | | | | Procedures | ST [place] | [address] | | | | | DE INJECT | [place], [place] | Phone: | | | | | ANES/STEROID | [address] | [phone] | | | | | FORAMEN | Phone: | Fax: | | | | | LUMBAR/SACRA | [phone] | [phone] | | | | | L W IMG | Fax: | | | | | | GUIDE ,1 | [phone] | | | | | | LEVEL DE | | | | | | | INJECT | | | | | | | ANES/STEROID | | | | | | | FORAMEN | | | | | | | LUMBAR/SACRA | | | | | | | L W IMG | | | | | | | GUIDE ,EA | | | | | | | ADD LEVEL | | | | | | | DE | | | | | | | TRIAMCINOLON | | | | | | | E ACET INJ | | | | | | | NOS, 10 MG | | | | | | | Bilat. | | | | | | | L4-L5, L5-S1 | | | | | | | TFESI | | | | | | | Schedule | | | | | | | Mid. | | | | | | | Reginaldo | | | +--------+--------+ + + + + Encounter Details +--------+ + + + + | Date | Type | Department | Care Team | Description | +--------+ + + + + | 05/12/ | Hospital | [facility] | Mono Diaz, | Lumbar radiculopathy | | 2018 | Encounter | MED CTR XRAY [address] | PA-C [address] | | | | | [place] | [address] [place] | | | | | [place] [address] | [place] [address] | | | | | [phone] | [phone] | | | | | | | | | | | | [employer], [facility] | | +--------+ + + + [...] +---------+ + + | Blood Pressure | 101/53 | 05/12/2018 1:34 PM | | | | | PST | | + +---------+ + + | Pulse | 89 | 05/12/2018 1:12 PM | | | | | PST [...] + +---------+ + + | DULoxetine | Take 20 mg by mouth | | 0 | 03/11/20 | | | (CYMBALTA) [address] | Daily. | | | 18 | 9 | | capsule | | | | [...] | | | | | [place] [address] | | | | | | [phone] | | | | | | | | +--------+---------+ + + + | 07/30/ | Office | Cardiology | Agata Tinajero DO | | | 2019 | Visit | | [address] | | | | | | [place] | | | | | | [address] | | | | | | | | +--------+---------+ + + + documented as of this encounter Procedures + +--------+ + + + | Procedure Name | Priori | Date/Time | Associated Diagnosis | Comments | | | ty | | | | + +--------+ + + + | FL EPIDURAL STEROID | Routin | 05/12/2018 | Lumbar | Results for this | | INJECTION LUMBAR | e | 1:12 PM | radiculopathy | procedure are in [...] | | radiculopathy ICD-10 Code M54.16 Clementine Carmichaeljenakj presents to the | | | fluoroscopy [...] + + | Performing | Address | City/State[facility] | Phone Number | [...] +-------+------+------+ | betamethasone (CELESTONE | Given | 05/12/20 | 12 mg | | | | SOLUSPAN) injection 12 mg 12 mg, | | 18 1:25 | | | | | Other, ONCE, Sat05/12/18 at | | PM PST | | | | | 1330, For 1 dose, Shake well. Not | | | | | | | for IV use., | | | | | | + +--------+ +-------+------+------+ +---+---+ | | | +---+---+ + +-------+ +-------+---+---+ | iohexol (OMNIPAQUE 300) 300 | Given | 05/12/20 | 4 mLs | | | | mg/mL injection 4 mL 4 mL, | | 18 1:20 | | | | | Other, ONCE, Sat05/12/18 at | | PM PST | | | | | 1330, For 1 dose | | | | | | + +-------+ +-------+---+---+ +---+---+ | | | +---+---+ + +-------+ +-------+---+---+ | lidocaine (PF) 1% injection 2 | Given | 05/12/20 | 2 mLs | | | | mL 2 mL, Other, ONCE, Mon | | 18 1:25 | | | | | 05/12/18 at 1330, For 1 dose, | | PM PST | | | | | EPIDURAL, | | | | | | + +-------+ +-------+---+---+ +---+---+ | | | +---+---+ + +-------+ +-------+---+ + | lidocaine buffered 0.9% | Given | 05/12/20 | 6 mLs | | Other | | injection 6 mL 6 mL, | | 18 1:15 | | | (Comment | | Intradermal, ONCE, 05/12/18 | | PM PST | | | ) | | at 1330, For 1 dose | | | | | | + +-------+ +-------+---+ + +---+---+ | | | +---+---+ documented in this encounter"
--- OUTSIDE RECORDS SUMMARY | ~2019-05-12 | XMS | Encounter Summary ---
Demographics + + + | Address | [address] | | | [place] [address] | + + + | Home Phone [...] [place], | | | | | [place] [address] | | + + + + + | Kellen Briones | ECON | [place], [place] | | | | | [address] | | + + + + + Care Team Providers + +------+ + | Care Steamer Tender Name | Role | Phone | [...] + + | 04/13/ | Telephone | [facility] | Irving Becerril, | Other (Return to | | 2015 | | NEUROSURGERY [address] | DO [address] | work ) | | | | [address] [facility] [address] | [address] [place], [place] | | | | | [place], [place] | [id number] | | | | | [address] | | | | | | [phone] | | | +--------+ + + + [...] | | | | | | [place] [address] | | | | | | [phone] | | | | | | | | +--------+---------+ + + + | 07/30/ | Office | Cardiology | Agata Tinajero DO | | | 2019 | Visit | | [address] | | | | | | [place] | | | | | | [address] | | | | | | | | +--------+---------+ + + + documented as of this encounter Visit Diagnoses Not on filedocumented in this encounter"
--- OUTSIDE RECORDS SUMMARY | ~2019-05-12 | XMS | Encounter Summary ---
Demographics + + + | Address | [address] | | | [place] [address] | + + + | Home Phone [...] [place], | | | | | [place] [address] | | + + + + + | Kellen Briones | ECON | [place], [place] | | | | | [address] | | + + + + + Care Team Providers + +------+ + | Care Roving Or Yarn Color Checker Name | Role | Phone | + [...] | | | claudication | B | [address] | | | | | Procedures | [place], [place] | Phone: | | | | | MRI Lumbar | [address] | [phone] | | | | | Spine wo | Phone: | Fax: | | | | | Contrast | [phone] | [phone] | | | | | | Fax: | | | | | | | [phone] | | +--------+--------+ + + + + Encounter Details +--------+ + + + + | Date | Type | Department | Care Team | Description | +--------+ + + + + | 04/09/ | Hospital | [facility] | Monster White MD | | | 2019 | Encounter | MED CTR MRI [address] | [address] | | | | | [place], | [place], | | | | | [place] [address] | [place] [address] | | | | | [phone] | [phone] | | | | | | | [...] | | | | | [place] [address] | | | | | | [phone] | | | | | | | | +--------+---------+ + + + | 07/30/ | Office | Cardiology | Agata Tinajero DO | | | 2019 | Visit | | [address] | | | | | | [place] | | | | | | [address] | | | | | | | [...] effects the | | right side at L1-Z3wfidr it is severe and bilaterally at L5-S1 [...]
--- OUTSIDE RECORDS SUMMARY | ~2019-05-12 | XMS | Encounter Summary ---
Demographics + + + | Address | [address] | | | [place] [address] | + + + | Home Phone [...] [place], | | | | | [place] [address] | | + + + + + | Kellen Briones | ECON | [place] | | | | | [address] | | + + + + + Care Team Providers + +------+ + | Care General Surgery Physician Assistant Name | Role | Phone | + +------+ + | Barb Marte | PCP | | + +------+ + Encounter Details +--------+ + + + + | Date | Type | Department | Care Team | Description | +--------+ + + + + | 01/31/ | Hospital | [facility] | Conversion | Diagnosis unknown | | 2018 | Encounter | CONVERSION [address]P [address] | Transaction, | | | | | [address] | Provider Unknown | | | | | [place] | [phone] | | | | | [address] | | | | | | [phone] | | | +--------+ + + + [...] | | | | | | [place] [address] | | | | | | [phone] | | | | | | | | +--------+---------+ + + + | 07/30/ | Office | Cardiology | Agata Tinajero DO | | | 2019 | Visit | | [address] | | | | | | [place] | | | | | | [address] | | | | | | | [...]
--- OUTSIDE RECORDS SUMMARY | ~2019-05-12 | XMS | Clinical Summary ---
Demographics + + + | Address | [address] | | | [place] [address] | + + + | Home Phone | | + + + | Preferred Language | Unknown | + + + | Marital Status | Unknown | + + + | Spiritism Affiliation | Unknown | + + + [...] Team Providers + +------+ + | Care Pattern Mechanic Name | Role | Phone | + +------+ + PCP | Unavailable | + +------+ + Source Comments HOLLY is fully live on both [facility] and [facility] Allergies Not on File Medications Not [...]
--- OUTSIDE RECORDS SUMMARY | ~2019-05-12 | XMS | Encounter Summary ---
Demographics + + + | Address | [address] | | | [place] [address] | + + + | Home Phone [...] [place], | | | | | [place] [address] | | + + + + + | Kellen Briones | ECON | [place], [place] | | | | | [address] | | + + + + + Care Team Providers + +------+ + | Care Cable Assembler And Swager Name | Role | Phone | + +------+ + | Anna De Guzman PA-C | PCP | | + +------+ + Encounter Details +--------+ + + + + | Date | Type | Department | Care Team | Description | +--------+ + + + + | 03/21/ | Orders Only | [facility] | Irving Becerril, | Spondylolisthesis of | | 2016 | | NEUROSURGERY [address] | DO [address] | cervical region | | | | [address] | [address] [place], [place] | (Primary Dx); Status | | | | [place], [place] | [address] | post cervical | | | | [address] | | spinal fusion | | | | [phone] | | | +--------+ + + + [...] | 2018 | Visit | | [address] | | | | | | [place] | | | | | | [place] [address] | | | | | | [phone] | | | | | | | | +--------+---------+ + + + | 07/30/ | Office | Cardiology | Agata Tinajero DO | | | 2019 | Visit | | [address] | | | | | | [place] | | | | | | [address] | | | | | | | [...] [address] | [place] | [phone] | | [facility] | | [address] | | | - IMAGING | | | | + + + + + documented in this encounter Visit Diagnoses + + | Diagnosis | + + | Spondylolisthesis of cervical region - Primary Acquired spondylolisthesis | + + | Status post cervical spinal fusion Arthrodesis status | + + documented in this encounter"
--- OUTSIDE RECORDS SUMMARY | ~2019-05-12 | XMS | Encounter Summary ---
Demographics + + + | Address | [address] | | | [place] [address] | + + + | Home Phone [...] [place], | | | | | [place] [address] | | + + + + + | Kellen Briones | ECON | [place], [place] | | | | | [address] | | + + + + + Care Team Providers + +------+ + | Care Coal Getter Name | Role | Phone | + [...] | Cervical | Mar[place], | [address] | | | | | spondylosis | Tk Monreal MD | [place], | | | | | Procedures | [address] | [place] | | | | | [place] IN[place] | [place] | [address] | | | | | DX/THER AGNT | [facility], [place] | Phone: | | | | | [place] | [address] | [phone] | | | | | [address] [place], | Phone: | Fax: | | | | | | [phone] | [phone] | | | | | CERV/THORAC, | Fax: | | | | | | 1ST LEVEL | [phone] | | | | | | [place] INJ | | | | | | | DX/THER AGNT | | | | | | | [place] | | | | | | | [address], | | | | | | | | | | | | | | CERV/THORAC, | | | | | | | 2ND LEVEL | | | | | | | [place] INJ | | | | | | | DX/THER AGNT | | | | | | | [place] | | | | | | | [address], | | | | | | | | | | | | | | CERV/THORAC, | | | | | | | ADD LEVEL | | | | | | | [place] | | | | | | | [...] + + | 11/29/ | Hospital | [facility] | [place], | Cervical stenosis of | | 2016 | Encounter | MED CTR XRAY [address] | [place] [address] | spinal canal; | | | | [place] | [facility], | Spondylolisthesis of | | | | [place] [address] | [place] [address] | cervical region; | | | | [phone] | Neck pain on right | | | | | | side; Facet | | | | | 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 | [address] | [place] | [phone] | | [facility] | | [address] | | | - IMAGING | | [...]
--- OUTSIDE RECORDS SUMMARY | ~2019-05-12 | XMS | Encounter Summary ---
Demographics + + + | Address | [address] | | | [place] [address] | + + + | Home Phone [...] [place], | | | | | [place] [address] | | + + + + + | Kellen Briones | ECON | [place], [place] | | | | | [address] | | + + + + + Care Team Providers + +------+ + | Care Board Attendant Name | Role | Phone | [...] Lumbar | AYAAN Villareal | [address] | | | | | radiculopath | [address] | [place], | | | | | y | [address] | [place] | | | | | Procedures | [address] | [address] | | | | | MRI Lumbar | [place], | Phone: | | | | | Spine wo | [place] [address] | [phone] | | | | | Contrast | Phone: | Fax: | | | | | | [phone] | [phone] | | | | | | Fax: | | | | | | | [phone] | | +--------+--------+ + + + + Reason for Visit + + + | Reason | Comments | + + + | Follow-up | Low Back Pain | + + + Encounter Details +--------+---------+ + + + | Date | Type | Department | Care Team | Description | +--------+---------+ + + + | 01/07/ | Office | [facility] | Mono Diaz, | Lumbar radiculopathy | | 2018 | Visit | PHYSIATRY [address] | PA-C [address] | (Primary Dx); | | | | [place], | [address] [place] | Spinal stenosis of | | | | [place] [address] | [place] [address] | lumbar region with | | | | [phone] | [phone] | [id number] | | | | | | level [...] | Blood Pressure | 165/88 | 01/07/2018 2:50 PM | | | | | PDT | | + + + + + | Pulse | 73 | 01/07/2018 2:50 PM | | | | | PDT [...] | 64 kg (141 lb) | 01/07/2018 2:50 PM | | | | | PDT | | + + + + + | Height | 160 cm (5' 3") | 01/07/2018 2:50 PM | | | | | PDT | | + + + + + | Body Mass Index | 24.98 | 01/07/2018 2:50 PM | | | | | PDT | | + + + + + documented in this encounter Patient Instructions Patient Instructions Mono Diaz PA-C - 01/07/2018 3:00 PM PDTLumbar MRI ordered, once approved by insurance radiology department will call you [...] press against a nerve. Date Last Reviewed: 03/06/201519990973-5097 [employer]. [address] [place] [address]. All righ ts reserved. This information is not intended as a substitute for professional medical care. Always follow your healthcare professional's instructions. documented in this encounter Progress Notes Mono Diaz PA-C - 01/07/2018 3:00 PM PDTFormatting of this note might be different fro m the original. CHIEF COMPLAINT: Chief Complaint Patient presents with Follow-up Low Back Pain HISTORY OF PRESENT ILLNESS: Clementine Winchester [...] and narcotic medications use; she currently uses [place], Flexeril and [place] bapentin. She is taking [...] has no apparent deficits with short or halfway memory. 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 Unfortunately Clementine Winchester continues to have significant [...] ELECTRONICALLY SIGNED BY: Mono Diaz PA-C, 01/07/18 documented in this e ncounter Plan of Treatment +--------+---------+ + + + | Date | Type | Specialty | Care Team | Description | +--------+---------+ + + + | 05/14/ | Office | Orthopedic Surgery | Monster White MD | | | 2018 | Visit | | [address] | | | | | | [place] | | | | | | [place] [address] | | | | | | [phone] | | | | | | | | +--------+---------+ + + + | 07/30/ | Office | Cardiology | Agata Tinajero DO | | | 2019 | Visit | | [address] | | | | | | [place] | | | | | | [address] | | | | | | | | +--------+---------+ + + + documented as of this encounter Results MRI Lumbar [...] L4 nerve root along with the descending E4pxyum | | roots within the subarticular recesses.L5-S1: Moderate to severe disc space narrowing | | and generalized disc osteophytecomplex combine with dorsal ligamentous and facet | | hypertrophy to moderatelynarrow the foramina to a similar degree, with encroachment on | | the exiting I1dypzo roots along with the descending S1 nerve [...] DISEASE AND | | MILD ANTEROLISTHESIS AT B83-A4WOBF MILD STENOSIS.7. LEVOSCOLIOSIS AND MULTILEVEL FACET | [...] | Spinal stenosis of lumbar region with fvugdmnjwsyam-B6-D6 level moderately severe | | Spinal stenosis, lumbar region, without neurogenic claudication | + + documented in this encounter
--- OUTSIDE RECORDS SUMMARY | ~2019-05-12 | XMS | Encounter Summary ---
Demographics + + + | Address | [address] | | | [place] [address] | + + + | Home Phone [...] [place], | | | | | [place] [address] | | + + + + + | Kellen Briones | ECON | [place], [place] | | | | | [address] | | + + + + + Care Team Providers + +------+ + | Care Road Engineer Freight Name | Role | Phone | + [...] [address] | | | | | [place], [place] | [place] [address] | | | | | [address] | [phone] | | | | | [phone] | | | +--------+ + + + [...] [address] | | | | | | [place] | | | | | | [place] [address] | | | | | | [phone] | | | | | | | | +--------+---------+ + + + | 07/30/ | Office | Cardiology | Agata Tinajero DO | | | 2019 | Visit | | [address] | | | | | | [place] | | | | | | [address] | | | | | | | | +--------+---------+ + + + documented as of this encounter Visit Diagnoses Not on filedocumented in this encounter"
--- OUTSIDE RECORDS SUMMARY | ~2019-05-12 | XMS | Encounter Summary ---
Demographics + + + | Address | [address] | | | [place] [address] | + + + | Home Phone [...] [place], | | | | | [place] [address] | | + + + + + | Kellen Briones | ECON | [place] | | | | | [address] | | + + + + + Care Team Providers + +------+ + | Care Heel Cutter Name | Role | Phone | + +------+ + | Barb Marte | THANG | | + +------+ + Encounter Details +--------+ + + + + | Date | Type | Department | Care Team | Description | +--------+ + + + + | 12/29/ | Hospital | [facility] | Chavo Jacob, | DDD (degenerative | | 2019 | Encounter | MED CTR XRAY [address] | PA-C [address] | disc disease), | | | | [place] | [address] [place] | lumbar; Lumbar | | | | [place] [address] | [place] [address] | radiculopathy | | | | [phone] | [phone] | | | | | | | [...] | | | | | | [place] [address] | | | | | | [phone] | | | | | | | | +--------+---------+ + + + | 07/30/ | Office | Cardiology | Agata Tinajero DO | | | 2019 | Visit | | [address] | | | | | | [place] | | | | | | [address] | | | | | | | [...]
--- OUTSIDE RECORDS SUMMARY | ~2019-05-12 | XMS | Encounter Summary ---
Demographics + + + | Address | [address] | | | [place] [address] | + + + | Home Phone [...] [place], | | | | | [place] [address] | | + + + + + | Kellen Briones | ECON | [place], [place] | | | | | [address] | | + + + + + Care Team Providers + +------+ + | Care Inspector Insulation Name | Role | Phone | + [...] + | 05/31/ | Refill | [facility] | Irving Becerril, | Medication Refill | | 2015 | | NEUROSURGERY [address] | DO [address] | | | | | [address] | [address] [place], [place] | | | | | [place], [place] | [id number] | | | | | [address] | | | | | | [phone] | | | +--------+--------+ + + + [...] | | | | | | [place] [address] | | | | | | [phone] | | | | | | | | +--------+---------+ + + + | 07/30/ | Office | Cardiology | Agata Tinajero DO | | | 2019 | Visit | | [address] | | | | | | [place] | | | | | | [address] | | | | | | | | +--------+---------+ + + + documented as of this encounter Visit Diagnoses + + | Diagnosis | + + | S/P cervical spinal fusion - Primary Arthrodesis status | + + documented in this encounter"
--- OUTSIDE RECORDS SUMMARY | ~2019-05-12 | XMS | Encounter Summary ---
Demographics + + + | Address | [address] | | | [place] [address] | + + + | Home Phone [...] [place], | | | | | [place] [address] | | + + + + + | Kellen Briones | ECON | [place], [place] | | | | | [address] | | + + + + + Care Team Providers + +------+ + | Care Executive Director Of Marketing Name | Role | Phone | + [...] | arthritis of | [address] | [place], [place] | | | | | cervical | [place], [place] | [address] Phone: | | | | | region DDD | [address] | [phone] | | | | | (degenerativ | Phone: | Fax: | | | | | e disc | [phone] | [phone] | | | | | disease), | Fax: | | | | | | cervical | [phone] | | | | | | Cervical [...] Neck pain | [place], | [address] | | | | | on right | [place], | [place], | | | | | side Facet | PA-C [address] | [place] | | | | | arthritis of | [address] | [address] | | | | | cervical | [place] | Phone: | | | | | region DDD | [address] | [phone] | | | | | (degenerativ | Phone: | Fax: | | | | | e disc | [phone] | [phone] | | | | | disease), | Fax: | | | | | | cervical | [phone] | | | | | | Cervical [...] + + | 12/13/ | Telephone | [facility] | [place], | Referral | | 2015 | | PHYSIATRY [address] | AYAAN Taylor [address] | | | | | [address] [place], | [facility], | | | | | [place] [address] | [place] [address] | | | | | [phone] | [phone] | | | | | | | [...] | | | | | | [place] [address] | | | | | | [phone] | | | | | | | | +--------+---------+ + + + | 07/30/ | Office | Cardiology | Agata Tinajero DO | | | 2019 | Visit | | [address] | | | | | | [place] | | | | | | [address] | | | | | | | [...] | Spinal stenosis of lumbar region with hbavfsaewsxuf-L4-H8 level moderately severe | | Spinal stenosis, [...]
--- OUTSIDE RECORDS SUMMARY | ~2019-05-12 | XMS | Encounter Summary ---
Demographics + + + | Address | [address] | | | [place] [address] | + + + | Home Phone [...] [place], | | | | | [place] [address] | | + + + + + | Kellen Briones | ECON | [place], [place] | | | | | [address] | | + + + + + Care Team Providers + +------+ + | Care Licensed Nurse Practitioner Name | Role | Phone | + [...] + + | 03/30/ | Hospital | [facility] | Irving Beecrril, | | | 2016 - | Encounter | MED CTR SURGICAL | DO [address] | | | | | [address] [place] | [address] | | | 03/31/ | | [place] [address] | [id number] | | | 2015 | | [phone] | | | +--------+ + + + [...] Admitting Physician: Irving Becerril DO [facility] Discharging Physician: NARESH Valverde Primary Discharge Dx: <principal problem not specified> Secondary Discharge Dx: Patient Active Problem List Diagnosis Cervical stenosis of spinal canal Spondylolisthesis of cervical region Arthritis Leg pain, bilateral Lumbago Trochanteric bursitis of right hip Right hip pain Stroke of unknown etiology Coronary artery disease Diabetes mellitus - ORAL Control Hypertension Stroke Syncope and collapse Cancer Hyperlipidemia PA (myocardial infarction) GERD (gastroesophageal reflux disease) Asthma Spondylolisthesis of lumbar region Lumbar radiculopathy DDD (degenerative disc disease), lumbar Spinal stenosis of lumbar region with commcpdropwnf-K2-B7 level moderately severe Facet arthritis of lumbar region-Most severe at L4-L5,L5-S1 Snoring Chronic narcotic use Neck pain on right side Facet arthritis of cervical region DDD (degenerative disc disease), cervical H/O Syncope & collape H/O CVA/stroke H/O PA (myocardial infarction) H/O Breast cancer - Right [...] of admission the patient was admitted to [facility] and underwent a C3-C7 fusion. Patient [...] Electronically signed by: Chavo Jacob, 03/31/2016 7:59 [facility] documented in this encounter Discharge Instructions Instructions RicciMerle hawk Janet, MEDICAL INTERPRETER - 03/31/2016Discharge Instructions for Cervical Fusion You [...] t raise your hands over your head sxn1hwvj(s)after your surgery. Don t drive until your [...] this your 1 month post op appointment. [phone] [facility]. [address] [place] [address]. All righ ts reserved. This information is not intended as a substitute for professional medical care. Always follow your healthcare professional's instructions. If you would like Home Health: Call [facility] at [phone] documented in this encounter Medications at Time [...] might be different f rom the original. [facility] NEUROSURGERY PROGRESS NOTE Pt. Name/Age/: Clementine [...] | Office | Orthopedic Surgery | Monster hWite MD | | | 2018 | Visit | | [address] | | | | | | [place] | | | | | | [place] [address] | | | | | | [phone] | | | | | | | | +--------+---------+ + + + | 07/30/ | Office | Cardiology | Agata Tinajero DO | | | 2019 | Visit | | [address] | | | | | | [place] | | | | | | [address] | | | | | | | [...] [address] | [place] | [phone] | | [facility] | | [address] | | | - LABORATORY | | [...] + | [facility] | [address] | [place] | [phone] | | [facility] | | [address] | | | - LABORATORY | | [...] | | Screen | | | [address] | | | | | | MEDICAL [...] | [facility] | | [address] | | | - BLOOD BANK | [...]
--- OUTSIDE RECORDS SUMMARY | ~2019-05-12 | XMS | Encounter Summary ---
Demographics + + + | Address | [address] | | | [place] [address] | + + + | Home Phone [...] [place], | | | | | [place] [address] | | + + + + + | Kellen Briones | ECON | [place], [place] | | | | | [address] | | + + + + + Care Team Providers + +------+ + | Care Golf Ball Molder Name | Role | Phone | + [...] + + | 03/07/ | Telephone | [facility] | Irving Becerril, | Other (Pre op meds | | 2016 | | NEUROSURGERY [address] | DO [address] | to stop) | | | | [address] | [address] [place], [place] | | | | | [place], [place] | [id number] | | | | | [address] | | | | | | [phone] | | | +--------+ + + + [...] | | | | | | [place] [address] | | | | | | [phone] | | | | | | | | +--------+---------+ + + + | 07/30/ | Office | Cardiology | Agata Tinajero DO | | | 2019 | Visit | | [address] | | | | | | [place] | | | | | | [address] | | | | | | | | +--------+---------+ + + + documented as of this encounter Visit Diagnoses Not on filedocumented in this encounter"
--- OUTSIDE RECORDS SUMMARY | ~2019-05-12 | XMS | Encounter Summary ---
Demographics + + + | Address | [address] | | | [place] [address] | + + + | Home Phone [...] [place], | | | | | [place] [address] | | + + + + + | Kellen Briones | ECON | [place], [place] | | | | | [address] | | + + + + + Care Team Providers + +------+ + | Care Interactive Media Designer Name | Role | Phone | + +------+ + | Anna De Guzman PA-C | PCP | | + +------+ + Encounter Details +--------+ + + + + | Date | Type | Department | Care Team | Description | +--------+ + + + + | 10/21/ | Hospital | [facility] | IsakkaydenkaileeTk mathis | | | 2012 | Encounter | MED CTR XRAY [address] | T, [address] | | | | | [place] | [place], [place] | | | | | [place] [address] | [address] | | | | | [phone] | | | +--------+ + + + [...] 7 | + + + +---------+--------+ + | tiZANidine | Take 4 mg by mouth | | 0 | | | | (ZANAFLEX) 4 mg | every 8 hours as | | | | 3 | | tablet | needed. | | | | | + + + +---------+--------+ + documented as of this encounter Plan of Treatment +--------+---------+ + + + | Date | Type | Specialty | Care Team | Description | +--------+---------+ + + + | 05/14/ | Office | Orthopedic Surgery | Monster White MD | | | 2019 | Visit | | [address] | | | | | | [place] | | | | | | [place] [address] | | | | | | [phone] | | | | | | | | +--------+---------+ + + + | 07/30/ | Office | Cardiology | Agata Tinajero DO | | | 2019 | Visit | | [address] | | | | | | [place] | | | | | | [address] | | | | | | | | +--------+---------+ + + + documented as of this encounter Procedures + +--------+ + + + | Procedure Name | Priori | Date/Time | Associated Diagnosis | Comments | | | ty | | | | + +--------+ + + + | [place] EPIDURAL STEROID | Routin | 10/21/2012 | | Results for this | | INJECTION LUMBAR | e | 4:58 PM | | procedure are in the | | TRANSFORAMINAL | | PDT | | results section. | + +--------+ + + + documented in this encounter Results [place] BAUTISTA Lumbar Transforaminal (10/21/2012 4:58 PM PDT) + + | Specimen | + + | | + + + + + | Narrative | Performed At | + + + | [facility] Diagnostic Imaging | [place] | | Department [address] [place] [address] | [facility] | | [ rep [address]] [ rep [facility] | | st zip] Signed | - IMAGING | | | | | Patient Name: CLEMENTINE NUNEZ Physician: | | | WILFREDO. : 1940 Age: 72 Sex: F Unit #: [id number] | | | Exam Date: 10/21/12 Location: [facility] | | | Report #: [id number] Page: | | | %(RAD)RES..mtdd.print.filter("pg") of %(RAD) | | | RES..mtdd.print.filter("tpg") | | | | | | Accession Number: [id number] | | | PROCEDURE NOTE EPIDURAL STEROID INJECTION | | | CLINICAL HISTORY: ICD-9 CODE 724.4, LUMBAR RADICULOPATHY. | | | Ms. Clementine Nunez presents to the fluoroscopy suite for | | | fluoroscopically-guided bilateral L5-S1 transforaminal epidural | | | steroid injections as part of conservative management of chronic pain | | | with lumbar radiculopathy and degenerative disk disease. After | | | informed consent was obtained, the patient laid in the prone | | | position on the fluoroscopy table. The areas were identified under | | | fluoroscopic guidance. The areas were prepped and draped in a | | | sterile fashion. A 25-gauge 1-1/2 inch needle was inserted into each | | | region and approximately 3 mL of buffered 1% Lidocaine was infused. A | | | 22-gauge spinal needle was inserted into the posterior superior | | | spinal space bilaterally and advanced into the epidural space under | | | fluoroscopic guidance. For confirmation into that epidural space was | | | obtained by infusing approximately 1 mL of Isovue contrast that | | | showed epidural flow as well as nerve sheath flow. A combination of | | | 2 mL 1% Lidocaine and 2 ml of 6 mg/mL Celestone was infused divided | | | between the two sides. The patient tolerated the procedure well. The | | | patient's pre- and post procedure blood pressure was stable. The | | | patient was given verbal as well as written instructions. The patient | | | reported some relief of pain status post procedure. Prior | | | to the start of the procedure, the following were performed and | | | verified including correct patient identity, correct site/side | | | marked and visible, agreement of the procedure to be done, correct | | | patient positioning and an accurate procedure consent form. Any | | | safety precautions based on clinical history and/or medication use | | | have been addressed. I personally performed the procedure | | | above. Dictated Date/Time: 10/21/2012 16:58 | | | Transcribed Date/Time: 10/21/2012 18:52 Core Checker: | | | <<Signature on File>> | | | Tk Monreal | | | MD Marissa11/07/12 [id number] <Electronically signed by Tk Monreal | | | Marissa ALVARADO> Tk Ann MD 10/21/12 4174 | | | Core Checker: [employer]ristina Juzpscjtqwrqd34/21/13 2227 | | | | | + + + + + + + + | Performing | Address | City/State/Zipcode | Phone Number | | Organization | | | | + + + + + | [facility] | [address] | [place] | [phone] | | [facility] | | [address] | | | - IMAGING | | | | + + + + + documented in this encounter Visit Diagnoses Not on filedocumented in this encounter
--- OUTSIDE RECORDS SUMMARY | ~2019-05-12 | XMS | Clinical Summary ---
Demographics + + + | Address | [address] | | | [place] [address] | + + + | Home Phone [...] [place], | | | | | [place] [address] | | + + + + + | Kellen Briones | ECON | [place] | | | | | [address] | | + + + + + Care Team Providers + +------+ + | Care Testing Shaking Shipping Name | Role | Phone | + [...] 03/30/2016 | + + + | H/O [place] (myocardial infarction) | 03/30/2016 | + + [...] | Spinal stenosis of lumbar region with rcnqpesmlpbht-P4-I6 level | 07/23/2012 | | moderately severe [...] | Hyperlipidemia | | + +---+ | [place] (myocardial infarction) | | + +---+ | [...] | 2018 | Visit | | | campo coronary | | | | | | artery of campo | | | | | | heart [...] | 2019 | Visit | | [address] [facility] [address] | | | | | | [place], | | | | | | [place] [address] | | | | | | [phone] | | | | | | | | +--------+---------+ + + + | 07/30/ | Office | Cardiology | Agata Tinajero DO | | | 2019 | Visit | | [address] | | | | | | [place] | | | | | | [address] | | | | | | | [...] + +--------+--------+ +--------+--------+--------+ | Cage Funmilayo Ptc [id number] - | Generi | Anteri | [employer] - | | 10/20/ | [id number] | | [id number]: Qty: 1 on | c | or: | MEDT | | 2023 | 4 / | | 03/30/2016 by Irving Becerril | | Spine | | | | /[id number] | | DO Chloe at [facility] | | Cervic | | | | | | [facility] | | al | | | | | + +--------+--------+ +--------+--------+--------+ | Cage Funmilayo Ptc [id number] - | Generi | Anteri | [employer] - | | 01/03/ | [id number] | | [id number]: Qty: 1 on | c | or: | MEDT | | 2022 | 4 / | | 03/30/2016 by Irving Becerril | | Spine | | | | /[id number] | | DO Chloe at [facility] | | Cervic | | | | | | [facility] | | al | | | | | + +--------+--------+ +--------+--------+--------+ | Cage Funmilayo Ptc [id number] - | Generi | Anteri | [employer] - | | 10/20/ | [id number] | | [id number]: Qty: 1 on | c | or: | MEDT | | 2023 | 4 / | | 03/30/2016 by Irving Becerril | | Spine | | | | /[id number] | | A, DO at [facility] | | Cervic | | | | | | [facility] | | al | | | | | + +--------+--------+ +--------+--------+--------+ | Cage Funmilayo Ptc [id number] - | Generi | Anteri | [employer] - | | 10/20/ | [id number] | | [id number]: Qty: 1 on | c | or: | MEDT | | 2023 | 4 / | | 03/30/2016 by Irving Bceerril | | Spine | | | | /[id number] | | A, DO at [facility] | | Cervic | | | | | | [facility] | | al | | | | | + +--------+--------+ +--------+--------+--------+ | Putty Bone Db Grftn 2.5cc - | Graft | Anteri | [employer] - | | 06/30/ | [id number] | | [id number]: Qty: 1 | | or: | MEDT | | 2018 | | | on 03/30/2016 by Jerrica, | | Spine | | | | /[id number] | | Irving Corona DO at [facility] | | Cervic | | | | 6-016 | | [facility] | | al | | | | / | + +--------+--------+ +--------+--------+--------+ | Plate Ant [place] Cerv 75mm | Plate | Anteri | [employer] - | | | [id number] | | - [id number]: Qty: 1 | | or: | MEDT | | | / | | on 03/30/2016 by Jerrica, | | Spine | | | | | | Irving Corona DO at [facility] | | Cervic | | | | | | [facility] | | al | | | | | + +--------+--------+ +--------+--------+--------+ | Screw Slf-Drl V/A 4.0x16mm - | Screw | Anteri | SOFAMOR | | | [id number] | | [id number]: Qty: 5 on | | or: | ANGELEK - DIV | | | / | | 03/30/2016 by Irving Becerril | | Spine | [employer] | | | | | DO Chloe at [facility] | | Cervic | - [facility] | | | | | [facility] | | al | | | | | + +--------+--------+ +--------+--------+--------+ | Screw Slf-Drl V/A 4.0x17mm - | Screw | Anteri | SOF[facility]OR | | | [id number] | | [id number]: Qty: 4 on | | or: | DANEK - DIV | | | | | 03/30/2016 by Irving Becerril | | Spine | [facility] | | | | | A, DO at [facility] | | [facility] | - [facility] | | | | | [facility] | | al | | | | | + +--------+--------+ +--------+--------+--------+ | Screw Slf-Dr V/A 4.5x15mm - | Screw | Anteri | [employer] - | | | [id number] | | [id number]: Qty: 1 on | | or: | MEDT | | | | | 03/30/2016 by Irving Becerril | | Spine | | | | | | A, DO at [facility] | | [facility] | | | | | | [facility] | | al | | | | [...] CT imaging was obtained through the | [facility] | | lumbar spine with coronal [...] effects the | | right side at L1-F1bfcmp it is severe and bilaterally at L5-S1 [...] +--------+ +---------+--------+ | AARP | AARP | [id number] | 06/03/19 | [phone] | | Indemn | | | MDCR | | 19-Pre | 0 | | ity | | | SUPPL | | sent | | | | + +--------+ +--------+ +---------+--------+ | | CHAMPV | [id number] | | [phone] | | Indemn | | | A | | 997-Pr | 7 | | ity | | | | | esent | | | | + +--------+ +--------+ +---------+--------+ | MEDICARE | MEDICA | [id number] | | [phone] | | Medica | | | RE | | 007-Pr | 5 | | re | | | PART A | | esent | | | | | | AND B | | | | | | + +--------+ +--------+ +---------+--------+ | MEDICARE | MEDICA | [id number] | | [phone] | | Medica | | | RE | | 012-Pr | 5 | | re | | | PART A | | esent | | | | | | AND B | | | | | | + +--------+ +--------+ +---------+--------+ | AARP | AARP | [id number] | 06/03/19 | [phone] | | Indemn | | | MDCR | | 19-Pre | 0 | | ity | | | SUPPL | | sent | | | | + +--------+ +--------+ +---------+--------+ | | CHAMPV | [id number] | | [phone] | | Indemn | [...] [place] | | | 6 (Home) | [address] | + +--------+ +--------+ + + | Clementine Winchester | Person | Self | [birth year] | [address] | | | al/Fam | | 1940 | [phone] | [place], [place] | | | amanuel | | | 6 (Home) | [address] | | | | | | [phone] | | | | | | | 3 (Work) | | + +--------+ +--------+ + + Advance Directives + + + + + | Type | Date Recorded | Patient | Explanation | | | | Factory Maintenance Technician | | + + + + + | Power of | | | | | Cable Armorer | | | | + + + [...]
--- OUTSIDE RECORDS SUMMARY | ~2019-05-12 | XMS | Encounter Summary ---
Demographics + + + | Address | [address] | | | [place] [address] | + + + | Home Phone [...] | Author | [facility] | | | and [place] | + + + | Organization | [facility] | | [...] [place], | | | | | [place] [address] | | + + + + + | Kellen Briones | ECON | [place], [place] | | | | | [address] | | + + + + + Care Team Providers + +------+ + | Care Mold Yard Crane Operator Name | Role | Phone [...] + + | 03/30/ | Hospital | [facility] | Irving Becerril, | | | 2016 | Encounter | MED CTR XRAY [address] | DO [address] | | | | | [place] | [address] [place], [place] | | | | | [place] [address] | [id number] | | | | | [phone] | | | +--------+ + + + [...] | 2018 | Visit | | [address] | | | | | | [place] | | | | | | [place] [address] | | | | | | [phone] | | | | | | | | +--------+---------+ + + + | 07/30/ | Office | Cardiology | Agata Tinajero DO | | | 2019 | Visit | | [address] | | | | | | [place] | | | | | | [address] | | | | | | | [...]
--- OUTSIDE RECORDS SUMMARY | ~2019-05-12 | XMS | Encounter Summary ---
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 | | [place] [address] | MD Di [address] | disc disease), | | | | [address] | [address] [place] | lumbar (Primary Dx); | | | | [place], [place] | [place] [address] | Lumbar | | | | [address] | [phone] | radiculopathy | | | | [phone] | | | +--------+ + + + [...] | | | | | | [place] [address] | | | | | | [phone] | | | | | | | | +--------+---------+ + + + | 07/30/ | Office | Cardiology | Agata Tinajero DO | | | 2019 | Visit | | [address] | | | | | | [place] | | | | | | [address] | | | | | | | | +--------+---------+ + + + documented as of this encounter Results XR Lumbar Spine 2 [...] lumbosacral intervertebral disc | + + | Lumbar radiculopathy Thoracic or lumbosacral neuritis or radiculitis, unspecified | + + documented in this encounter"
--- OUTSIDE RECORDS SUMMARY | ~2019-05-12 | XMS | Encounter Summary ---
Demographics + + + | Address | [address] | | | [place] [address] | + + + | Home Phone | | + + + | Preferred Language | Unknown | + + + | Marital Status | | + + + | Islam Affiliation | 1041 | + + + [...] [place], | | | | | [place] [address] | | + + + + + | Kellen Briones | ECON | [place], [place] | | | | | [address] | | + + + + + Care Team Providers + +------+ + | Care Hotel Concierge Name | Role | Phone | + +------+ + | Anna De Guzman PA-C | PCP | | + +------+ + Encounter Details +--------+ + + + + | Date | Type | Department | Care Team | Description | +--------+ + + + + | 06/02/ | Hospital | [facility] | IsakkaydnekaileeTk mathis | | | 2012 | Encounter | MED CTR XRAY [address] | T, [address] | | | | | [place] | [place], [place] | | | | | [place] [address] | 7[address] | | | | | [phone] | | | +--------+ + + + [...] | | | | | | [place] [address] | | | | | | [phone] | | | | | | | | +--------+---------+ + + + | 07/30/ | Office | Cardiology | Agata Tinajero DO | | | 2019 | Visit | | [address] | | | | | | [place] | | | | | | [address] | | | | | | | [...] Performed At | + + + | [facility] | [place] | | Department [address] [facility] | [facility] | | [ rep [address]] [ rep [facility] | | [facility]] Signed | - IMAGING | | | | | Patient Name: CLEMENTINE NUNEZ Physician: | | | WILFREDO. : 1940 Age: 73 Sex: F Unit #: [id number] | | | Exam Date: 06/02/13 Location: [facility] | | | Report #: [id number] Page: | | | %(RAD)RES..mtdd.print.filter("pg") of %(RAD) | | | RES..mtdd.print.filter("tpg") | | | | | | Accession Number: [id number] | | | CERVICAL FACET INJECTIONS, 06/02/2013 [...] Transcribed | | | Date/Time: 06/03/2013 03:50 Mirror Inspector: | | | <<Signature on File>> | | | Tk Monreal | | | MD Marissa06/04/13 0730 <Electronically signed by Tk Monreal | | | Marissa ALVARADO> Tk Ann MD 06/02/13 1813 | | | Mirror Inspector: Zulema Oflalhhmsgxoa15/01/14 0350 | | | | | + + + + + + + + | Performing | Address | City/State/Zipcode | Phone Number | | Organization | | | | + + + + + | [facility] | [address] | [place] | [phone] | | [facility] | | [address] | | | - IMAGING | | | | + + + + + documented in this encounter Visit Diagnoses Not on filedocumented in this encounter
--- OUTSIDE RECORDS SUMMARY | ~2019-05-12 | XMS | Encounter Summary ---
Demographics + + + | Address | [address] | | | [place] [address] | + + + | Home Phone [...] [place], | | | | | [place] [address] | | + + + + + | Kellen Briones | ECON | [place], [place] | | | | | [address] | | + + + + + Care Team Providers + +------+ + | Care Kerrick Kleaner Operator Name | Role | Phone | [...] | arthritis of | [address] | [place], [place] | | | | | cervical | [place], [place] | [address] Phone: | | | | | region DDD | [address] | [phone] | | | | | (degenerativ | Phone: | Fax: | | | | | e disc | [phone] | [phone] | | | | | disease), | Fax: | | | | | | cervical | [phone] | | | | | | Cervical [...] Neck pain | [place], | [address] | | | | | on right | Claudia, | [place], | | | | | side Facet | PA-C [address] | [place] | | | | | arthritis of | [address] | [address] | | | | | cervical | [place] | Phone: | | | | | region DDD | [address] | [phone] | | | | | (degenerativ | Phone: | Fax: | | | | | e disc | [phone] | [phone] | | | | | disease), | Fax: | | | | | | cervical | [phone] | | | | | | Cervical [...] + + | 12/13/ | Telephone | [facility] | [place], | Referral | | 2015 | | PHYSIATRY [address] | [place] [address] | | | | | [address] [place], | [facility], | | | | | [place] [address] | [place] [address] | | | | | [phone] | [phone] | | | | | | | [...] | | | | | | [place] [address] | | | | | | [phone] | | | | | | | | +--------+---------+ + + + | 07/30/ | Office | Cardiology | Agata Tinajero DO | | | 2019 | Visit | | [address] | | | | | | [place] | | | | | | [address] | | | | | | | [...] | Spinal stenosis of lumbar region with ywknylevjpmel-D0-D9 level moderately severe | | Spinal stenosis, [...]
--- OUTSIDE RECORDS SUMMARY | ~2019-05-12 | XMS | Encounter Summary ---
Demographics + + + | Address | [address] | | | [place] [address] | + + + | Home Phone [...] [place], | | | | | [place] [address] | | + + + + + | Kellen Briones | ECON | [place], [place] | | | | | [address] | | + + + + + Care Team Providers + +------+ + | Care Portable Machine Sander Name | Role | Phone | + [...] + + | 03/05/ | Telephone | [facility] | Tk Ann | Other (Reschedule | | 2012 | | PHYSIATRY [address] | TMD [address] | injection) | | | | [place], | [place], [place] | | | | | [place] [address] | [address] | | | | | [phone] | | | +--------+ + + + [...] | | | | | | [place] [address] | | | | | | [phone] | | | | | | | | +--------+---------+ + + + | 07/30/ | Office | Cardiology | Agata Tinajero DO | | | 2019 | Visit | | [address] | | | | | | [place] | | | | | | [address] | | | | | | | | +--------+---------+ + + + documented as of this encounter Visit Diagnoses Not on filedocumented in this encounter"
--- OUTSIDE RECORDS SUMMARY | ~2019-05-12 | XMS | Encounter Summary ---
Demographics + + + | Address | [address] | | | [place] [address] | + + + | Home Phone [...] + + + | Author | [facility] | | | and [place] | + + + | Organization | [facility] | | | and [place] | + + + | Address | Unknown | + + + | Phone | Unavailable | + + + Support + + + + + | Name | Relationship | Address | Phone | + + + + + | Lucy Winchester | ECON | [place], | | | | | [place] [address] | | + + + + + | Kellen Briones | ECON | [place] | | | | | [address] | | + + + + + Care Team Providers + +------+ + | Care Monorail Charger Operator Name | Role | Phone | + +------+ + | Barb Marte | PCP | | + +------+ + Encounter Details +--------+ + + + + | Date | Type | Department | Care Team | Description | +--------+ + + + + | 01/31/ | Hospital | [facility] | Conversion | Diagnosis unknown | | 2018 | Encounter | CONVERSION DEP [address] | Transaction, | | | | | [address] | Provider Unknown | | | | | [place] | [phone] | | | | | [address] | | | | | | [phone] | | | +--------+ + + + [...] | | | | | | [place] [address] | | | | | | [phone] | | | | | | | | +--------+---------+ + + + | 07/30/ | Office | Cardiology | Agata Tinajero DO | | | 2019 | Visit | | [address] | | | | | | [place] | | | | | | [address] | | | | | | | [...]
--- OUTSIDE RECORDS SUMMARY | ~2019-05-12 | XMS | Encounter Summary ---
Demographics + + + | Address | [address] | | | [place] [address] | + + + | Home Phone [...] [place], | | | | | [place] [address] | | + + + + + | Kellen Briones | ECON | [place], [place] | | | | | [address] | | + + + + + Care Team Providers + +------+ + | Care Inclinometer Tester Name | Role | Phone | [...] Thoracic or | [place], | [address] | | | | | lumbosacral | Tk Monreal MD | [place], | | | | | neuritis or | [address] | [place] | | | | | | ST [place] | [address] | | | | | radiculitis, | [place], [place] | Phone: | | | | | unspecified | [address] | [phone] | | | | | Procedures | Phone: | Fax: | | | | | [place] INJECT | [phone] | [phone] | | | | | ANES/STEROID | Fax: | | | | | | FORAMEN | [phone] | | | | | | LUMBAR/SACRA [...] | | | | | | | 5/6 | | | +--------+--------+ + + + + Encounter Details +--------+ + + + + | Date | Type | Department | Care Team | Description | +--------+ + + + + | 10/06/ | Hospital | [facility] | Tk Ann | Lumbar radiculopathy | | 2013 | Encounter | MED CTR XRAY [address] | T, [address] | | | | | [place] | [place], [place] | | | | | [place] [address] | [address] | | | | | [phone] | | | | | | | Rubber Goods Tester, Jordan | | +--------+ + + + + [...] +---------+ + + | Blood Pressure | 129/75 | 10/06/2013 1:37 PM | | | | | PDT | | + +---------+ + + | Pulse | 80 | 10/06/2013 1:37 PM | | | | | PDT [...] | | | | | | [place] [address] | | | | | | [phone] | | | | | | | | +--------+---------+ + + + | 07/30/ | Office | Cardiology | Tinajero Agata, DO | | | 2019 | Visit | | [address] | | | | | | [address] [place] | | | | | | [address] | | | | | | | | +--------+---------+ + + + documented as of this encounter Procedures + +--------+ + + + | Procedure Name | Priori | Date/Time | Associated Diagnosis | Comments | | | ty | | | | + +--------+ + + + | FL EPIDURAL STEROID | Routin | 10/06/2013 | Lumbar | Results for this | | INJECTION LUMBAR | e | 1:35 PM | radiculopathy | procedure are in [...] 10/06/13 Bilateral Transforaminal Epidural Steroid Injections | LUIS MANUELNCE | | Diagnosis: Lumbar radiculopathy ICD-9 Code 724.4 Ms. Clementine Cortez | [facility] | | Annabella presents to the fluoroscopy suite for fluoroscopically-guided [facility] | | bilateral L5-S1 transforaminal epidural [...] ST. | [address] | [place] | [phone] | | [facility] | | [address] | | | - IMAGING | | [...] + | betamethasone (CELESTONE | Given | 10/07/19 | 12 mg | | Other | | SOLUSPAN) injection 12 mg 12 mg, | | 14 1:30 | | | (Comment | | Intramuscular, EVERY 24 HOURS | | PM PDT | | | ) | | INTERVAL, First dose on Sat | | | | | | | 10/06/13 at 1330, For 2 doses, | | | | | | | Shake well. Not for IV use., | | | | | | + +--------+ +-------+------+ + +---+---+ | | | +---+---+ + +-------+ +-------+---+---+ | iohexol (OMNIPAQUE 300) 300 | Given | 10/07/19 | 4 mLs | | | | mg/mL injection 4 mL 4 mL, | | 14 1:30 | | | | | INTRATHECAL, ONCE, 10/06/13 at | | PM PDT | | | | | 1330, For 1 dose | | | | | | + +-------+ +-------+---+---+ +---+---+ | | | +---+---+ + +-------+ +-------+---+ + | lidocaine (PF) 1% injection 5 | Given | 10/07/19 | 5 mLs | | Back-Low | | mL 5 mL, EPIDURAL, ONCE, Tue | | 14 1:38 | | | er | | 10/06/13 at 1330, For 1 dose | | PM PDT | | | | + +-------+ +-------+---+ + +---+---+ | | | +---+---+ + +-------+ +-------+---+---+ | lidocaine 1% injection 5 mL 5 | Given | 10/07/19 | 5 mLs | | | | mL, Infiltration, ONCE, Tue | | 14 1:30 | | | | | 10/06/13 at 1330, For 1 dose | | PM PDT | | | | + +-------+ +-------+---+---+ +---+---+ | | | +---+---+ documented in this encounter"
--- OUTSIDE RECORDS SUMMARY | ~2019-05-12 | XMS | Encounter Summary ---
Demographics + + + | Address | [address] | | | [place] [address] | + + + | Home Phone [...] [place], | | | | | [place] [address] | | + + + + + | Kellen Briones | ECON | [place], [place] | | | | | [address] | | + + + + + Care Team Providers + +------+ + | Care Storekeeper Helper Name | Role | Phone | [...] | Lumbosacral | [place], | [address] | | | | | spondylosis | Tk Monreal MD | [place], | | | | | without | [address] | [place] | | | | | myelopathy | [place] | [address] | | | | | Procedures | [place], [place] | Phone: | | | | | NE INJ | [address] | [phone] | | | | | DX/THER AGNT | Phone: | Fax: | | | | | PARAVERT | [phone] | [phone] | | | | | FACET JOINT, | Fax: | | | | | | | [phone] | | | | | | CERV/THORAC, | | | | | | | 1ST LEVEL | | | | | | | NE INJ | | | | | | | DX/THER AGNT | | | | | | | PARAVERT | | | | | | | FACET JOINT, | | | | | | | | | | | | | | CERV/THORAC, | | | | | | | 2ND LEVEL | | | | | | | NE INJ | | | | | | [...] + + | 09/24/ | Hospital | [facility] | Tk Ann | Neck pain on right | | 2013 | Encounter | MED CTR XRAY [address] | T, [address] | side; Facet | | | | [place] | [place], [place] | arthritis of | | | | [place] [address] | [phone] | cervical region | | | | [phone] | | | | | | | Forestry TechnicianJordan | | +--------+ + + + + [...] | | | | | | [place] [address] | | | | | | [phone] | | | | | | | | +--------+---------+ + + + | 07/30/ | Office | Cardiology | Agata Tinajero DO | | | 2019 | Visit | | [address] | | | | | | [place] | | | | | | [address] | | | | | | | [...] 09/24/13 Cervical Facet Steroid Injections Diagnosis: | [facility] | | Cervical Spondylosis ICD-9 Code 721.0 Ms. Clementine Winchester | [facility] | | presents to the fluoroscopy suite for fluoroscopically-guided C4-C5, [facility] | | C5-C6 and C6-C7 facet [...] + | [facility] | [address] | [place], [place] | [phone] | | [facility] | | [address] | | | - IMAGING | | [...]
--- OUTSIDE RECORDS SUMMARY | ~2019-05-12 | XMS | Encounter Summary ---
Demographics + + + | Address | [address] | | | [place] [address] | + + + | Home Phone | | + + + | Preferred Language | Unknown | + + + | Marital Status | | + + + | Orthodox Affiliation | 1041 | + + + | Race | Unknown | + + + | Ethnic Group | Unknown | + + + Author + + + | Author | [facility] | | | and [place] | + + + | Organization | [facility] | | | and [place] | + + + | Address | Unknown | + + + | Phone | Unavailable | + + + Support + + + + + | Name | Relationship | Address | Phone | + + + + + | Lucy Winchester | ECON | [place], | | | | | [place] [address] | | + + + + + | Kellen Briones | ECON | [place], [place] | | | | | [address] | | + + + + + Care Team Providers + +------+ + | Care Tabulating Supervisor Name | Role | Phone | [...] + + | 05/07/ | Telephone | [facility] | Irving Becerril, | Paperwork | | 2016 | | NEUROSURGERY [address] | DO [address] | | | | | [address] | [address] [place], [place] | | | | | [place], [place] | [id number] | | | | | [id number] | | | | | | [phone] | | | +--------+ + + + [...] | | | | | | [place] [address] | | | | | | [phone] | | | | | | | | +--------+---------+ + + + | 07/30/ | Office | Cardiology | Agata Tinajero DO | | | 2019 | Visit | | [address] | | | | | | [place] | | | | | | [address] | | | | | | | | +--------+---------+ + + + documented as of this encounter Visit Diagnoses Not on filedocumented in this encounter"
--- OUTSIDE RECORDS SUMMARY | ~2019-05-12 | XMS | Encounter Summary ---
Demographics + + + | Address | [address] | | | [place] [address] | + + + | Home Phone [...] [place], | | | | | [place] [address] | | + + + + + | Kellen Briones | ECON | [place], [place] | | | | | [address] | | + + + + + Care Team Providers + +------+ + | Care Shake Backboard Notcher Name | Role | Phone | + [...] + + | 09/30/ | Office | [facility] [place] | [place], | DDD (degenerative | | 2014 | Visit | PHYSIATRY [address] | [address]YA[address] | disc disease), | | | | [place], | [address] [place], | lumbar (Primary Dx); | | | | [place] [address] | [place] [address] | Spinal stenosis of | | | | [phone] | [phone] | lumbar region with | | | | | | paoczdwufskzj-T0-P1 | | | | | | level [...] of the procedure you must provide a powder truck driver to take you home. For [...] spinal stenosis. Her last injection was in [facility] of this year. She reports that [...] and narcotic medications use; she currently uses Nichols, Flexeril and ga bapentin. Patient's medications, allergies, [...] has no apparent deficits with short or ferry terminal agent memory. She has appropriate fund of knowledge [...] 2. Spinal stenosis of lumbar region with ltysjmoleoduz-K5-O3 level moderately severe 3. Lumbar radiculopathy 4. [...] be performed by me in the [facility]. 2. I did not make [...] | 2018 | Visit | | [address] | | | | | | [place], | | | | | | [place] [address] | | | | | | [phone] | | | | | | | | +--------+---------+ + + + | 07/30/ | Office | Cardiology | Agata Tinajero DO | | 2019 | Visit | | [address] | | | | | | [place], [place] | | | | | | [address] | | | | | | | [...] Code 724.4 Clementine Phoenix | [facility] | | Annabella presents to the fluoroscopy suite for fluoroscopically-guided [facility] | | bilateral L5-S1 transforaminal epidural steroid [...] [address] | [place] | [phone] | | [facility] | | [address] | | | - IMAGING | | | | + + + + + documented in this encounter Visit Diagnoses + + | Diagnosis | + + | DDD (degenerative disc disease), lumbar - Primary Degeneration of lumbar or | | lumbosacral intervertebral disc | + + | Spinal stenosis of lumbar region with lxzbyqilzfino-B5-C1 level moderately severe | | Spinal stenosis, [...]
--- OUTSIDE RECORDS SUMMARY | ~2019-05-12 | XMS | Encounter Summary ---
Demographics + + + | Address | [address] | | | [place] [address] | + + + | Home Phone [...] [place], | | | | | [place] [address] | | + + + + + | Kellen Briones | ECON | [place], [place] | | | | | [address] | | + + + + + Care Team Providers + +------+ + | Care Physician Scientist Name | Role | Phone | + [...] | Lumbosacral | Marissa, | [address] | | | | | spondylosis | Tk Monreal MD | [place], | | | | | without | [address] | [place] | | | | | myelopathy | [place] | [address] | | | | | Procedures | [place], [place] | Phone: | | | | | [place] INJ | [address] | [phone] | | | | | DX/THER AGNT | Phone: | Fax: | | | | | [place] | [phone] | [phone] | | | | | FACET JOINT, | Fax: | | | | | | | [phone] | | | | | | CERV/THORAC, | | | | | | | 1ST LEVEL | | | | | | | [place] INJ | | | | | | | DX/THER AGNT | | | | | | | [place] | | | | | | | FACET JOINT, | | | | | | | | | | | | | | CERV/THORAC, | | | | | | | 2ND LEVEL | | | | | | | [place] INJ | | | | | | [...] + + | 09/24/ | Hospital | [facility] | Tk Ann | Neck pain on right | | 2013 | Encounter | MED CTR XRAY [address] | T, [address] | side; Facet | | | | [address] [place] | [place], [place] | arthritis of | | | | [place] [address] | [id number] | cervical region | | | | [phone] | | | | | | | Insole PresserJordan | | +--------+ + + + + [...] | | | | | | [place] [address] | | | | | | [phone] | | | | | | | | +--------+---------+ + + + | 07/30/ | Office | Cardiology | Agata Tinajero DO | | | 2019 | Visit | | [address] | | | | | | [place] | | | | | | [address] | | | | | | | [...] ICD-9 Code 721.0 Ms. Clementine Winchester | [facility] | | presents to the fluoroscopy suite for fluoroscopically-guided C4-C5, [facility] | | C5-C6 and C6-C7 [...] + | [facility] | [address] | [place], [place] | [phone] | | [facility] | | [address] | | | - IMAGING | | [...]
--- OUTSIDE RECORDS SUMMARY | ~2019-05-12 | XMS | Encounter Summary ---
Demographics + + + | Address | [address] | | | [place] [address] | + + + | Home Phone [...] [place], | | | | | [place] [address] | | + + + + + | Kellen Briones | ECON | [place], [place] | | | | | [address] | | + + + + + Care Team Providers + +------+ + | Care Superintendent Compressor Stations Name | Role | Phone | + [...] | | | | | | | [place] | | | | | | [...] + + | 03/30/ | Hospital | [facility] | Irving Becerril, | | | 2016 - | Encounter | MED CTR SURGICAL | DO [address] | | | | | [address] | [address] | | | 03/31/ | | [place] [address] | [id number] | | | 2015 | | [phone] | | | +--------+ + + + [...] Admitting Physician: Irving Becerril DO [facility] Discharging Physician: NARESH Valverde Primary Discharge Dx: <principal problem not specified> Secondary Discharge Dx: Patient Active Problem List Diagnosis Cervical stenosis of spinal canal Spondylolisthesis of cervical region Arthritis Leg pain, bilateral Lumbago Trochanteric bursitis of right hip Right hip pain Stroke of unknown etiology Coronary artery disease Diabetes mellitus - ORAL Control Hypertension Stroke Syncope and collapse Cancer Hyperlipidemia [place] (myocardial infarction) GERD (gastroesophageal reflux disease) Asthma Spondylolisthesis of lumbar region Lumbar radiculopathy DDD (degenerative disc disease), lumbar Spinal stenosis of lumbar region with onqijtktyqfks-L5-Y3 level moderately severe Facet arthritis of lumbar region-Most severe at L4-L5,L5-S1 Snoring Chronic narcotic use Neck pain on right side Facet arthritis of cervical region DDD (degenerative disc disease), cervical H/O Syncope & collape H/O CVA/stroke H/O [place] (myocardial infarction) H/O Breast cancer - Right [...] of admission the patient was admitted to [facility] and underwent a C3-C7 fusion. Patient [...] Electronically signed by: Chavo Jacob, 03/31/2016 7:59 [facility] documented in this encounter Discharge Instructions Instructions RicciMerle hawk Janet, MEDICATION ASSISTANT - 03/31/2016Discharge Instructions for Cervical Fusion You [...] t raise your hands over your head osg4jccr(s)after your surgery. Don t drive until your [...] this your 1 month post op appointment. 5314-6848 [employer]. [address] [place] [address]. All righ ts reserved. This information is not intended as a substitute for professional medical care. Always follow your healthcare professional's instructions. If you would like Home Health: Call [facility] at [phone] documented in this encounter Medications at Time [...] might be different f rom the original. [facility] NEUROSURGERY PROGRESS NOTE Pt. Name/Age/: Clementine Winchester [...] signed by: Chavo Jacob, 03/31/2016 7:48 [facility] documented in this encounter Plan of [...] | | | | | | [place] [address] | | | | | | [phone] | | | | | | | | +--------+---------+ + + + | 07/30/ | Office | Cardiology | Agata Tinajero DO | | | 2019 | Visit | | [address] | | | | | | [place] | | | | | | [address] | | | | | | | [...] [address] | [place] | [phone] | | [facility] | | [address] | | | - LABORATORY | | [...] + | [facility] | [address] | [place] | [phone] | | [facility] | | [address] | | | - LABORATORY | | [...] St | [place] | | | [facility] | | [address] | | | - BLOOD BANK | [...]
--- OUTSIDE RECORDS SUMMARY | ~2019-05-12 | XMS | Encounter Summary ---
Demographics + + + | Address | [address] | | | [place] [address] | + + + | Home Phone [...] [place], | | | | | [place] [address] | | + + + + + | Kellen Briones | ECON | [place] | | | | | [address] | | + + + + + Care Team Providers + +------+ + | Care Rubber Boots And Shoes Repairer Name | Role | Phone | + [...] [place] | | | | | [phone] | [place] [address] | | +--------+ + + + + [...] | | | | | | [place] [address] | | | | | | [phone] | | | | | | | | +--------+---------+ + + + | 07/30/ | Office | Cardiology | Agata Tinajero DO | | | 2019 | Visit | | [address] | | | | | | [place] | | | | | | [address] | | | | | | | [...]
--- OUTSIDE RECORDS SUMMARY | ~2019-05-12 | XMS | Encounter Summary ---
Demographics + + + | Address | [address] | | | [place] [address] | + + + | Home Phone [...] [place], | | | | | [place] [address] | | + + + + + | Kellen Briones | ECON | [place], [place] | | | | | [address] | | + + + + + Care Team Providers + +------+ + | Care Religious Educator Name | Role | Phone | + [...] + | 08/10/ | Refill | [facility] | Irving Becerril, | Medication Refill | | 2016 | | NEUROSURGERY [address] | DO [address] | | | | | [address] [facility] | [address] [place], [place] | | | | | [place], [place] | [id number] | | | | | [address] | | | | | | [phone] | | | +--------+--------+ + + + [...] | | | | | | [place] [address] | | | | | | [phone] | | | | | | | | +--------+---------+ + + + | 07/30/ | Office | Cardiology | Agata Tinajero DO | | | 2019 | Visit | | [address] | | | | | | [place] | | | | | | [address] | | | | | | | | +--------+---------+ + + + documented as of this encounter Visit Diagnoses + + | Diagnosis | + + | S/P cervical spinal fusion - Primary Arthrodesis status | + + documented in this encounter"
--- OUTSIDE RECORDS SUMMARY | ~2019-05-12 | XMS | Encounter Summary ---
Demographics + + + | Address | [address] | | | [place] [address] | + + + | Home Phone [...] [place], | | | | | [place] [address] | | + + + + + | Kellen Briones | ECON | [place], [place] | | | | | [address] | | + + + + + Care Team Providers + +------+ + | Care Risk And Compliance Analytics Director Name | Role | Phone | [...] + + | 04/21/ | Telephone | [facility] | Monster White MD | Follow-up | | 2019 | | [facility] | [address] | (appointment) | | | | ORTHOPEDIC SPINE | [place] | | | | | [address] | [place] [address] | | | | | [place] | [phone] | | | | | [address] | | | | | | [phone] | | | +--------+ + + + [...] | | | | | | [place] [address] | | | | | | [phone] | | | | | | | | +--------+---------+ + + + | 07/30/ | Office | Cardiology | Agata Tinajero DO | | | 2019 | Visit | | [address] | | | | | | [place] | | | | | | [address] | | | | | | | | +--------+---------+ + + + documented as of this encounter Visit Diagnoses Not on filedocumented in this encounter"
--- OUTSIDE RECORDS SUMMARY | ~2019-05-12 | XMS | Encounter Summary ---
Demographics + + + | Address | [address] | | | [place] [address] | + + + | Home Phone [...] [place], | | | | | [place] [address] | | + + + + + | Kellen Briones | ECON | [place], [place] | | | | | [address] | | + + + + + Care Team Providers + +------+ + | Care Gem Cutter Name | Role | Phone | + +------+ + | Anna De Guzman PA-C | PCP | | + +------+ + Encounter Details +--------+ + + + + | Date | Type | Department | Care Team | Description | +--------+ + + + + | 02/01/ | Hospital | [facility] | Irving Becerril, | Neck pain | | 2016 | Encounter | MED CTR XRAY [address] | DO [address] | | | | | [place] | [address] [place], [place] | | | | | [place] [address] | [phone] | | | | | [phone] | | | +--------+ + + + [...] | 2018 | Visit | | [address] | | | | | | [place] | | | | | | [place] [address] | | | | | | [phone] | | | | | | | | +--------+---------+ + + + | 07/30/ | Office | Cardiology | Agata Tinajero DO | | | 2020 | Visit | | [address] | | | | | | [place] | | | | | | [address] | | | | | | | [...] + + + + | [facility] | [address] | [place] | [phone] | | [facility] | | [address] | | | - IMAGING | | | | + + + + + documented in this encounter Visit Diagnoses + + | Diagnosis | + + | Neck pain Cervicalgia | + + documented in this encounter"
--- OUTSIDE RECORDS SUMMARY | ~2019-05-12 | XMS | Encounter Summary ---
Demographics + + + | Address | [address] | | | [place] [address] | + + + | Home Phone | | + + + | Preferred Language | Unknown | + + + | Marital Status | | + + + | Restorationist Affiliation | 1041 | + + + | Race | Unknown | + + + | Ethnic Group | Unknown | + + + Author + + + | Author | [facility] | | | and [place] | + + + | Organization | [facility] | [...] [place], | | | | | [place] [address] | | + + + + + | Kellen Briones | ECON | [place], [place] | | | | | [address] | | + + + + + Care Team Providers + +------+ + | Care Office Administration Instructor Name | Role | Phone | [...] + + | 08/27/ | Telephone | [facility] | Ramon Real | Other | | 2012 | | [address] | MD Idris [address] | | | | | [address] | [place], [place] | | | | | [place], [place] | [address] | | | | | [address] | [phone] | | | | | [phone] | | | +--------+ + + + [...] | | | | | | [place] [address] | | | | | | [phone] | | | | | | | | +--------+---------+ + + + | 07/30/ | Office | Cardiology | Agata Tinajero DO | | | 2019 | Visit | | [address] | | | | | | [place] | | | | | | [address] | | | | | | | | +--------+---------+ + + + documented as of this encounter Visit Diagnoses Not on filedocumented in this encounter"
--- OUTSIDE RECORDS SUMMARY | ~2019-05-12 | XMS | Encounter Summary ---
Demographics + + + | Address | [address] | | | [place] [address] | + + + | Home Phone [...] [place], | | | | | [place] [address] | | + + + + + | Kellen Briones | ECON | [place], [place] | | | | | [address] | | + + + + + Care Team Providers + +------+ + | Care Transit Operator Name | Role | Phone | [...] [address] | | | | | [place], [place] | [place] [address] | | | | | [address] | [phone] | | | | | [phone] | | | +--------+ + + + [...] | | | | | | [place] [address] | | | | | | [phone] | | | | | | | | +--------+---------+ + + + | 07/30/ | Office | Cardiology | Agata Tinajero DO | | | 2019 | Visit | | [address] | | | | | | [place] | | | | | | [address] | | | | | | | | +--------+---------+ + + + documented as of this encounter Visit Diagnoses Not on filedocumented in this encounter"
--- OUTSIDE RECORDS SUMMARY | ~2019-05-12 | XMS | Encounter Summary ---
Demographics + + + | Address | [address] | | | [place] [address] | + + + | Home Phone [...] [place], | | | | | [place] [address] | | + + + + + | Kellen Briones | ECON | [place], [place] | | | | | [address] | | + + + + + Care Team Providers + +------+ + | Care Contact Person Name | Role | Phone | + +------+ + | Anna De Guzman PA-C | PCP | | + +------+ + Encounter Details +--------+ + + + + | Date | Type | Department | Care Team | Description | +--------+ + + + + | 03/07/ | Hospital | [facility] | Irving Becerril, | Stroke of unknown | | 2016 | Encounter | MED CTR XRAY [address] | DO [address] | etiology ([facility]); | | | | [place] | [address] [place], [place] | Cerebrovascular | | | | [place] [address] | [address] | accident (CVA), | | | | [phone] | | unspecified | | | | | Caleb San MD | mechanism (HCC); | | | | | [address] | Lumbar | | | | | [place], [place] | radiculopathy; | | | | | [address] | Cervical stenosis of | | | [...] involving | | | | | | white earth coronary | | | | | | artery of white earth | | | | | | heart without angina | | | | | | pectoris; 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 | | | | | | without complication | | | | | | ([facility]); Essential | | | | | | hypertension; | | | | | | Syncope and | | | | | | collapse; Cancer | | | | | | ([facility]); 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| | hyperlipidemia; ST | | | | | | elevation myocardial | | | | | | infarction (STEMI), | | | | | | unspecified artery | | | | | | ([facility]); | | | | | | Gastroesophageal [...] with | | | | | | nybpnpvqswisn-Q6-D9 | | | | | | level [...] region | | | | | | ([facility]); DDD | | | | | | [...] | | | | | | [place] [address] | | | | | | [phone] | | | | | | | | +--------+---------+ + + + | 07/30/ | Office | Cardiology | Agata Tinajero DO | | | 2019 | Visit | | [address] | | | | | | [place] | | | | | | [address] | | | | | | | | +--------+---------+ + + + documented as of this encounter Procedures + +--------+ + + + | Procedure Name | Priori | Date/Time | Associated Diagnosis | Comments | | | ty | | | | + +--------+ + + + | XR CHEST PA AND | Routin | 03/07/2016 | Stroke of unknown | Results for this | | LATERAL | e | 3:49 PM | etiology (HCC) | procedure are [...] involving | | | | | | white earth coronary | | | | | | artery of white earth | | | | | | heart [...] with | | | | | | zjzmglglgsphu-G2-X0 | | | | | | level [...] region | | | | | | ([facility]) DDD | | | | | | (degenerative disc | | | | | | disease), cervical | | + +--------+ + + + documented in this encounter Results XR Chest PA and Lateral (03/07/2016 3:49 PM PDT) + + | Specimen | + + | | + + + + + | Narrative | Performed At | + + + | EXAM: XR CHEST PA AND LATERAL HISTORY: PRE OPERATIVE EXAM | [facility] | | TECHNIQUE: Upright PA and Lateral Chest COMPARISON: None. | [facility] | | FINDINGS: Sternal wires [...] ST. | [address] | [place] | [phone] | | [facility] | | [address] | | | - IMAGING | | [...] + + | Coronary artery disease involving white earth coronary artery of white earth heart without | | angina pectoris | [...] | Spinal stenosis of lumbar region with jcrrpnczpavua-L8-P9 level moderately severe | | Spinal stenosis, [...]
--- OUTSIDE RECORDS SUMMARY | ~2019-05-12 | XMS | Encounter Summary ---
Demographics + + + | Address | [address] | | | [place] [address] | + + + | Home Phone [...] [place], | | | | | [place] [address] | | + + + + + | Kellen Briones | ECON | [place], [place] | | | | | [address] | | + + + + + Care Team Providers + +------+ + | Care Gore Stitcher Name | Role | Phone | + [...] | | Spinal | PA-C [address] | [place], [place] | | | | | stenosis, | [address] | [address] | | | | | other region | Ave | Phone: | | | | | Procedures | [place], | [phone] | | | | | [place] OFFICE | [place] | Fax: | | | | | CONSULTATION | [address] | [phone] | | | | | NEW/ESTAB | Phone: | | | | | | PATIENT 60 | [phone] | | | | | | MIN | Fax: | | | | | | | [phone] | | +--------+--------+ + + + + Encounter Details +--------+---------+ + + + | Date | Type | Department | Care Team | Description | +--------+---------+ + + + | 11/13/ | Office | [facility] | Gonzalo Mathew MD | Cervical spondylosis | | 2013 | Visit | NEUROSURGERY [address] | [address] | with myelopathy | | | | [address] | [place] [address] | (Primary Dx); | | | | [place] | [phone] | Cervical | | | | [address] | | radiculopathy; | | | | [phone] | | Cervical | | | | [...] research this procedure more by going to: [email or web address] Click the Treatment Options link on the left column. Then, look for Anterior Cervical Discectomy and Fusion (ACDF). documented in this encounter Progress Notes Gonzalo Mathew MD - 11/13/2013 11:00 AM PDTFormatting of this note might be different from t he original. Gonzalo Mathew MD [address] [place] [address], [address] [place] [address] FAX: NEUROSURGERY HISTORY AND PHYSICAL EXAMINATION CHIEF [...] Syncope and collapse Cancer (HCC) Breast Hyperlipidemia [place] (myocardial infarction) (HCC) GERD (gastroesophageal reflux disease) Asthma Arthritis Lumbar radiculopathy 07/23/2012 DDD (degenerative disc disease), lumbar 07/23/2012 Spinal stenosis of lumbar region with gyotikdrrsgjz-N6-W8 level moderately severe 2012 Facet arthritis of [...] 1989' Mastectomy, radical 1987 Right Breast reconstruction 1963-2968 ABout 10 surgeries Bone spur left foot [...] has no apparent deficits with short or prison memory. CRANIAL NERVES: II: Acuity is intact. [...] Intrinsics 5 5 Ulnar Intrinsics 5 5 Chief Knowledge Officer Strength 5 5 Hip Flexion 5 5 [...] Syncope and collapse Cancer (HCC) Breast Hyperlipidemia [place] (myocardial infarction) (HCC) GERD (gastroesophageal reflux disease) Asthma Arthritis Lumbar radiculopathy 07/23/2012 DDD (degenerative disc disease), lumbar 07/23/2012 Spinal stenosis of lumbar region with mvdnieeaguyur-S0-J4 level moderately severe 2012 Facet arthritis of [...] Mathew MD, 11/13/2013 11:57 documented in this encou nter Plan of Treatment +--------+---------+ + + + | Date | Type | Specialty | Care Team | Description | +--------+---------+ + + + | 05/14/ | Office | Orthopedic Surgery | Monster White MD | | | 2019 | Visit | | [address] | | | | | | [place], | | | | | | [place] [address] | | | | | | [phone] | | | | | | | | +--------+---------+ + + + | 07/30/ | Office | Cardiology | TinajeroAgata DO | | | 2019 | Visit | | [address] | | | | | | [place] | | | | | | [address] | | | | | | | [...]
--- OUTSIDE RECORDS SUMMARY | ~2019-05-12 | XMS | Encounter Summary ---
Demographics + + + | Address | [address] | | | [place] [address] | + + + | Home Phone [...] [place], | | | | | [place] [address] | | + + + + + | Kellen Briones | ECON | [place], [place] | | | | | [address] | | + + + + + Care Team Providers + +------+ + | Care Computer Technology Instructor Name | Role | Phone | [...] [address] | [address] [place], [place] | (Primary Dx); Status | | | | [place], [place] | [address] | post cervical | | | | [address] | | spinal fusion | | | | [phone] | | | +--------+ + + + [...] | 2018 | Visit | | [address] | | | | | | [place] | | | | | | [place] [address] | | | | | | [phone] | | | | | | | | +--------+---------+ + + + | 07/30/ | Office | Cardiology | Agata Tinajero DO | | | 2019 | Visit | | [address] | | | | | | [place] | | | | | | [address] | | | | | | | [...] | Procedure Note | + + | [place], Rad Results In - 05/17/2016 11:30 AM [...] [address] | [place] | [phone] | | [facility] | | [address] | | | - IMAGING | | | | + + + + + documented in this encounter Visit Diagnoses + + | Diagnosis | + + | Spondylolisthesis of cervical region - Primary Acquired spondylolisthesis | + + | Status post cervical spinal fusion Arthrodesis status | + + documented in this encounter"
--- OUTSIDE RECORDS SUMMARY | ~2019-05-12 | XMS | Encounter Summary ---
Demographics + + + | Address | [address] | | | [place] [address] | + + + | Home Phone [...] [place], | | | | | [place] [address] | | + + + + + | Kellen Briones | ECON | [place], [place] | | | | | [address] | | + + + + + Care Team Providers + +------+ + | Care Air Carrier Maintenance Inspector Name | Role | Phone | [...] Thoracic or | [place], | [address] | | | | | lumbosacral | Tk Monreal MD | [place], | | | | | neuritis or | [address] | [place] | | | | | | ST [place] | [address] | | | | | radiculitis, | [place] | Phone: | | | | | unspecified | [address] | [phone] | | | | | Procedures | Phone: | Fax: | | | | | [place] INJECT | [phone] | [phone] | | | | | ANES/STEROID | Fax: | | | | | | FORAMEN | [phone] | | | | | | LUMBAR/SACRA | | | | | | | L W IMG | | | | | | | GUIDE ,1 | | | | | | | LEVEL [place] | | | | | | [...] + + | 02/02/ | Hospital | [facility] | [place], | Spinal stenosis of | | 2013 | Encounter | MED CTR XRAY [address] | [address] | lumbar region with | | | | [place] | [facility], | [id number] | | | | [place] [address] | [place] [address] | level moderately | | | | [phone] | [phone] | severe (Primary Dx); | | | | | | Spondylolisthesis | | | | | Tk Ann, | of lumbar region; | | | | | MD [address] | Lumbar radiculopathy | | | | | [place] | | | | | | [id number] | | | | | | | | | | | | Director Product SafetyJordan | | +--------+ + + + + [...] | 2018 | Visit | | [address] | | | | | | [place] | | | | | | [place] [address] | | | | | | [phone] | | | | | | | | +--------+---------+ + + + | 07/30/ | Office | Cardiology | Agata Tinajero DO | | | 2019 | Visit | | [address] | | | | | | [place] | | | | | | [address] | | | | | | | [...] | | TRANSFORAMINAL | | PDT | [id number] | results section. | | | | [...] radiculopathy ICD-9 Code 724.4 Clementine Phoenix | [facility] | | Annabella presents to the fluoroscopy [...] | + + + + + | [address] | [address] | [place] | [phone] | | [facility] | | [address] | | | - IMAGING | | | | + + + + + documented in this encounter Visit Diagnoses + + | Diagnosis | + + | Spinal stenosis of lumbar region with urzjpcbtpeqhs-T0-L4 level moderately severe - | | Primary [...]
--- OUTSIDE RECORDS SUMMARY | ~2019-05-12 | XMS | Encounter Summary ---
Demographics + + + | Address | [address] | | | [place] [address] | + + + | Home Phone [...] [place], | | | | | [place] [address] | | + + + + + | Kellen Briones | ECON | [place], [place] | | | | | [address] | | + + + + + Care Team Providers + +------+ + | Care Chemical Weigher Name | Role | Phone | + [...] + + | 07/28/ | Telephone | [facility] | Patrick Gaffney MD [address] | Records Request | | 2012 | | NEUROLOGY NEELY | [facility] | | | | | [facility], | BRAD D JIGNA | | | | | [place] [address] [place] [address] | [place] [address] | | | | | [place] [address] | [phone] | | | | | [phone] | | | +--------+ + + + [...] | | | | | | [place] [address] | | | | | | [phone] | | | | | | | | +--------+---------+ + + + | 07/30/ | Office | Cardiology | Agata Tinajero DO | | | 2019 | Visit | | [address] | | | | | | [place] | | | | | | [address] | | | | | | | | +--------+---------+ + + + documented as of this encounter Visit Diagnoses Not on filedocumented in this encounter"
--- OUTSIDE RECORDS SUMMARY | ~2019-05-12 | XMS | Encounter Summary ---
Demographics + + + | Address | [address] | | | [place] [address] | + + + | Home Phone [...] [place], | | | | | [place] [address] | | + + + + + | Kellen Briones | ECON | [place], [place] | | | | | [address] | | + + + + + Care Team Providers + +------+ + | Care Sign Maintenance Name | Role | Phone | + [...] | Lumbar | [place], | [address] | | | | | radiculopath | Tk Monreal MD | [place], | | | | | y | [address] | [place] | | | | | Procedures | [place] | [address] | | | | | [place] INJECT | [facility], [place] | Phone: | | | | | ANES/STEROID | [address] | [phone] | | | | | FORAMEN | Phone: | Fax: | | | | | LUMBAR/SACRA | [phone] | [phone] | | | | | L W IMG | Fax: | | | | | | GUIDE ,1 | [phone] | | | | | | LEVEL [place] | | | | | | [...] + + | 07/05/ | Hospital | [facility] | Bogdathacz, | Lumbar | | 2016 | Encounter | MED CTR XRAY [address] | [address] | radiculopathy; | | | | [place] | [facility], | Spinal stenosis of | | | | [place] [address] | [place] [id number] | lumbar region with | | | | [phone] | [phone] | [id number]-X2-P3 | | | | | | level moderately | | | | | Field Service TechJordan | severe | +--------+ + + + + Social [...] | | | | | | [place] [address] | | | | | | [phone] | | | | | | | | +--------+---------+ + + + | 07/30/ | Office | Cardiology | Agata Tinajero DO | | | 2019 | Visit | | [address] | | | | | | [place] | | | | | | [address] | | | | | | | [...] with | | | | | | [id number]-[id number] | | | | | | level [...] 07/05/2015 Bilateral Transforaminal Epidural Steroid Injections | [place]IS[place]E | | Diagnosis: Lumbar radiculopathy ICD-10 Code M54.16 Clementine Phoenix | [facility] | | Annabella presents to the fluoroscopy suite for [facility] | | fluoroscopically-guided bilateral L5-S1 transforaminal epidural [...] [address] | [place] | [phone] | | [facility] | | [address] | | | - IMAGING | | | | + + + + + documented in this encounter Visit Diagnoses + + | Diagnosis | + + | Lumbar radiculopathy Thoracic or lumbosacral neuritis or radiculitis, unspecified | + + | Spinal stenosis of lumbar region with sfhasbwropbsd-J8-S4 level moderately severe | | Spinal stenosis, [...]
--- OUTSIDE RECORDS SUMMARY | ~2019-05-12 | XMS | Encounter Summary ---
Demographics + + + | Address | [address] | | | [place] [address] | + + + | Home Phone [...] | + + + + + | Lcuy Winchester | ECON | [place], | | | | | [place] [address] | | + + + + + | Kellen Briones | ECON | [place] | | | | | [address] | | + + + + + Care Team Providers + +------+ + | Care Social Service Coordinator Name | Role | Phone | + +------+ + | Barb Marte | PCP | | + +------+ + Encounter Details +--------+ + + + + | Date | Type | Department | Care Team | Description | +--------+ + + + + | 01/31/ | Hospital | [facility] | Conversion | Diagnosis unknown | | 2018 | Encounter | CONVERSION DEP [address] | Transaction, | | | | | [address] | Provider Unknown | | | | | [place] | [phone] | | | | | [address] | | | | | | [phone] | | | +--------+ + + + [...] | | | | | | [place] [address] | | | | | | [phone] | | | | | | | | +--------+---------+ + + + | 07/30/ | Office | Cardiology | Agata Tinajero DO | | | 2019 | Visit | | [address] | | | | | | [place] | | | | | | [address] | | | | | | | [...]
--- OUTSIDE RECORDS SUMMARY | ~2019-05-12 | XMS | Encounter Summary ---
Demographics + + + | Address | [address] | | | [place] [address] | + + + | Home Phone [...] [place], | | | | | [place] [address] | | + + + + + | Kellen Briones | ECON | [place] | | | | | [address] | | + + + + + Care Team Providers + +------+ + | Care Outreach Clinician Name | Role | Phone | + +------+ + | Barb Marte | THANG | | + +------+ + Encounter Details +--------+ + + + + | Date | Type | Department | Care Team | Description | +--------+ + + + + | 03/05/ | Hospital | [facility] | Barb Marte PA | Abnormal mammogram | | 2018 | Encounter | MED CTR ULTRASOUND | [address] | | | | | [address] | [address] [place] | | | | | [place] | [address] | | | | | [address] | | | | | | [phone] | | | +--------+ + + + [...] | | | | | | [place] [address] | | | | | | [phone] | | | | | | | | +--------+---------+ + + + | 07/30/ | Office | Cardiology | Agata Tinajero DO | | | 2019 | Visit | | [address] | | | | | | [place] | | | | | | [address] | | | | | | | [...]
--- OUTSIDE RECORDS SUMMARY | ~2019-05-12 | XMS | Encounter Summary ---
Demographics + + + | Address | [address] | | | [place] [address] | + + + | Home Phone [...] [place], | | | | | [place] [address] | | + + + + + | Kellen Briones | ECON | [place], [place] | | | | | [address] | | + + + + + Care Team Providers + +------+ + | Care Recapper Name | Role | Phone | + [...] + + | 01/07/ | Telephone | [facility] | Tk Ann | Injections | | 2012 | | ORTHOPEDIC SURGERY | MD Jocelin [address] | | | | | [address] [place] [address] | [place], [place] | | | | | [place], [place] | [address] | | | | | [address] | | | | | | [phone] | | | +--------+ + + + [...] | | | | | | [place] [address] | | | | | | [phone] | | | | | | | | +--------+---------+ + + + | 07/30/ | Office | Cardiology | Agata Tinajero DO | | | 2019 | Visit | | [address] | | | | | | [place] | | | | | | [address] | | | | | | | | +--------+---------+ + + + documented as of this encounter Visit Diagnoses Not on filedocumented in this encounter"
--- OUTSIDE RECORDS SUMMARY | ~2019-05-12 | XMS | Encounter Summary ---
Demographics + + + | Address | [address] | | | [place] [address] | + + + | Home Phone [...] [place], | | | | | [place] [address] | | + + + + + | Kellen Briones | ECON | [place], [place] | | | | | [address] | | + + + + + Care Team Providers + +------+ + | Care Accounting Manager Name | Role | Phone | [...] | Lumbar | [place], | [address] | | | | | radiculopath | Tk Monreal MD | [place], | | | | | y | [address] | [place] | | | | | Procedures | [place] | [address] | | | | | [place] INJECT | [place] | Phone: | | | | | ANES/STEROID | [address] | [phone] | | | | | [place] | Phone: | Fax: | | | | | LUMBAR/SACRA | [phone] | [phone] | | | | | L W IMG | Fax: | | | | | | GUIDE ,1 | [phone] | | | | | | LEVEL [place] | | | | | | [...] + + | 05/12/ | Hospital | [facility] | Mono Diaz, | Lumbar radiculopathy | | 2018 | Encounter | MED CTR XRAY [address] | PA-C [address] | | | | | [place] | [address] [place] | | | | | [place] [address] | [place] [address] | | | | | [phone] | | | | | | | | | | | | Locomotive Firer/Fireman, [address] | | +--------+ + + + [...] | | | | | [place] [address] | | | | | | [phone] | | | | | | | | +--------+---------+ + + + | 07/30/ | Office | Cardiology | Agata Tinajero DO | | | 2019 | Visit | | [address] | | | | | | [place] | | | | | | [address] | | | | | | | [...] + + | Performing | Address | City/State[facility] | Phone Number | | [...]
--- OUTSIDE RECORDS SUMMARY | ~2019-05-12 | XMS | Encounter Summary ---
Demographics + + + | Address | [address] | | | [place] [address] | + + + | Home Phone [...] [place], | | | | | [place] [address] | | + + + + + | Kellen Briones | ECON | [place], [place] | | | | | [address] | | + + + + + Care Team Providers + +------+ + | Care Consumer Lending Manager Name | Role | Phone | + +------+ + | Anna De Guzman PA-C | PCP | | + +------+ + Encounter Details +--------+ + + + + | Date | Type | Department | Care Team | Description | +--------+ + + + + | 04/15/ | Hospital | [facility] | IsakkaydenkaileeTk mathis | | | 2012 | Encounter | MED CTR XRAY [address] | T, [address] | | | | | [place] | [place], [place] | | | | | [place] [address] | [address] | | | | | [phone] | | | +--------+ + + + [...] | | | | | | [place] [address] | | | | | | [phone] | | | | | | | | +--------+---------+ + + + | 07/30/ | Office | Cardiology | Agata Tinajero DO | | | 2019 | Visit | | [address] | | | | | | [place] | | | | | | [address] | | | | | | | [...] Performed At | + + + | [facility] Diagnostic Imaging | [place] | | Department [address] [facility] | [facility] | | [ rep [address]] [ rep [facility] | | [facility] [place]] Signed | - IMAGING | | | | | Patient Name: CLEMENTINE NUNEZ Physician: | | | : 1940 Age: 72 Sex: F Unit #: [id number] | | | Exam Date: 04/15/13 Location: [facility] | | | Report #: [id number] Page: | | | %(RAD)RES..mtdd.print.filter("pg") of %(RAD) | | | RES..mtdd.print.filter("tpg") | | | | | | Accession Number: [id number] | | | EPIDURAL STEROID INJECTION, 04/15/2013 [...] Transcribed | | | Date/Time: 04/17/2013 14:04 Automotive Parts Interpreter: | | | <<Signature on File>> | | | Tk Monreal | | | MD Marissa04/24/13 1211 <Electronically signed by Tk Monreal | | | Marissa ALVARADO> Tk Ann MD 04/17/13 1256 | | | Automotive Parts Interpreter: Ykone Opivcyrnvsqty52/15/13 1404 | | | | | + + + + + + + + | Performing | Address | City/State/Zipcode | Phone Number | | Organization | | | | + + + + + | [facility] | [address] | [place] | [phone] | | [facility] | | [address] | | | - IMAGING | | | | + + + + + documented in this encounter Visit Diagnoses Not on filedocumented in this encounter
--- OUTSIDE RECORDS SUMMARY | ~2019-05-12 | XMS | Encounter Summary ---
Demographics + + + | Address | [address] | | | [place] [address] | + + + | Home Phone [...] [place], | | | | | [place] [address] | | + + + + + | Kellen Briones | ECON | [place], [place] | | | | | [address] | | + + + + + Care Team Providers + +------+ + | Care Air Brake Rigger Name | Role | Phone | [...] + + | 06/19/ | Office | [facility] | [place], | Lumbar radiculopathy | | 2017 | Visit | PHYSIATRY [address] | [address] | (Primary Dx); | | | | [place], | [facility], | Spinal stenosis of | | | | [place] [address] | [place] [address] | lumbar region with | | | | [phone] | [phone] | ontvktitdjswv-W8-I7 | | | | | | level [...] Instructions Patient Instructions Claudia Das PA-C - 06/19/2016 11:51 AM PST1) [...] of blood sugars if you are diabetic. terminal system operator risk can lead to osteoporosis which is [...] of the procedure you must provide a wrecker driver to take you home. For all [...] and narcotic medications use; she currently uses [place], Flexeril and [place] bapentin. She just underwent [...] 2. Spinal stenosis of lumbar region with oiyxbbviwilxa-Z0-Z6 level moderately severe 3. DDD (degenerative disc [...] | | | | | | [place] [address] | | | | | | [phone] | | | | | | | | +--------+---------+ + + + | 07/30/ | Office | Cardiology | Agata Tinajero DO | | | 2019 | Visit | | [address] | | | | | | [place] | | | | | | [address] | | | | | | | | +--------+---------+ + + + documented as of this encounter Results [place] Lumbar Transforaminal (06/27/2016 2:59 PM PST) + + | Specimen | + + | | + + + + + | Narrative | Performed At | + + + | 06/27/2016 Bilateral Transforaminal Epidural Steroid Injections | [place] | | Diagnosis: Lumbar radiculopathy ICD-10 Code M54.16 Clementine | [facility] | | Lizett [place] presents to the fluoroscopy suite for [facility] | | fluoroscopically-guided bilateral L5-S1 [...] | + + + + + | [facility] | [address] | [place] | [phone] | | [facility] | | [address] | | | - IMAGING | | | | + + + + + documented in this encounter Visit Diagnoses + + | Diagnosis | + + | Lumbar radiculopathy - Primary Thoracic or lumbosacral neuritis or radiculitis, | | unspecified | + + | Spinal stenosis of lumbar region with dddwogwowkpen-W3-K5 level moderately severe | | Spinal stenosis, [...]
--- OUTSIDE RECORDS SUMMARY | ~2019-05-12 | XMS | Encounter Summary ---
Demographics + + + | Address | [address] | | | [place] [address] | + + + | Home Phone [...] [place], | | | | | [place] [address] | | + + + + + | Kellen Briones | ECON | [place], [place] | | | | | [address] | | + + + + + Care Team Providers + +------+ + | Care Experimental Aircraft Mechanic Name | Role | Phone | [...] | | | Procedures | [address] | Wheelwright Nuc | | | | | NM Nuclear | [address] | Med 1100 | | | | | Stress Test | [address] | [address] | | | | | (Vasodilator | [place], [place] | [place], [place] | | | | | ) | [address] | [address] | | | | | | Phone: | Phone: | | | | | | [phone] | [phone] | | | | | | Fax: | Fax: | | | | | | [phone] | [phone] | +--------+--------+ + + + + Reason [...] | | | Procedures | [address] | Wheelwright Nuc | | | | | NM Nuclear | [address] | Med 1100 | | | | | Stress Test | [address] | [address] | | | | | (Vasodilator | [place], [place] | [place], [place] | | | | | ) | [address] | [address] | | | | | | Phone: | Phone: | | | | | | [phone] | [phone] | | | | | | Fax: | Fax: | | | | | | [phone] | [phone] | +--------+--------+ + + + + Encounter Details +--------+ + + + + | Date | Type | Department | Care Team | Description | +--------+ + + + + | 02/16/ | Hospital | [facility] | Agata Tinajero DO | Hx of CABG | | 2019 | Encounter | CARDIOLOGY [place] | [address] | | | | | NUC MED [address] | [address] [place], [place] | | | | | [address] | [address] | | | | | [place], [place] | | | | | | [address] | | | | | | [phone] | | | +--------+ + + + [...] | | | | | | [place] [address] | | | | | | [phone] | | | | | | | | +--------+---------+ + + + | 07/30/ | Office | Cardiology | Agata Tinajero DO | | | 2019 | Visit | | [address] | | | | | | [place] | | | | | | [address] | | | | | | | [...]
--- OUTSIDE RECORDS SUMMARY | ~2019-05-12 | XMS | Encounter Summary ---
Demographics + + + | Address | [address] | | | [place] [address] | + + + | Home Phone [...] [place], | | | | | [place] [address] | | + + + + + | Kellen Briones | ECON | [place] | | | | | [address] | | + + + + + Care Team Providers + +------+ + | Care Drill Rig Operator Name | Role | Phone | [...] | | | [address] | Way [place], [place] | | | | | [place], [place] | [address] | | | | | [address] | | | | | | [phone] | | | +--------+ + + + [...] | 2019 | Visit | | [address] | | | | | | [place], | | | | | | [place] [address] | | | | | | [phone] | | | | | | | | +--------+---------+ + + + | 07/30/ | Office | Cardiology | Agata Tinajero DO | | | 2019 | Visit | | [address] | | | | | | [place] | | | | | | [address] | | | | | | | [...] | maxP.57 mmHg TR Vmax: 2.89 m/s Costume Shop Manager: | | | Authenticated by: BUCK SOTO [...] cmLVPWd: 1.17 | | cmLVOT Area: 3.02 xe5ZGDI Diam: 1.96 cm%FS: 38.74 %EF(Teich): 69.95 %ESV(Teich): [...] (A-L): 22.04 ml/m2LAAs A2C: | | 13.50 dw2ARQVE A-L A2C: 36.98 mlLALs A2C: 4.18 cmLAAs A4C: 13.35 us5HEDYO A-L A4C: | | 31.07 mlLALs A4C: 4.87 cmRAAs: 22.15 qj3FIDQF A-L: 78.87 mlRAESV MOD: 76.76 | | mlRALs: 5.28 cmTAPSE: 1.36 cmAV maxP.05 mmHgAV meanP.09 mmHgAV Vmax: | | 1.50 m/Shreyas Vmean: 1.08 m/Shreyas VTI: 30.75 cmAVA Vmax: 2.05 cm2AVA (VTI): 2.07 | | ku2OTTF Vmax: 0.00 cm2/m2AVAI (VTI): 0.00 cm2/m2LVOT maxP.16 mmHgLVOT meanPG: | | 2.03 mmHgLVSI Dopp: 38.41 ml/m2LVSV Dopp: 63.76 mlLVOT Vmax: 1.02 m/sLVOT Vmean: | | 0.65 m/sLVOT VTI: 21.09 cmMV A Obed: 1.25 m/sMV DecT: 137.22 msMV E Obed: 1.08 | | m/sMV E/A Ratio: 0.86MV PHT: 39.79 msMVA By PHT: 5.52 ls0Mgrcmt e': 0.03 | | m/sSeptal E/e': 33.19Lateral e': 0.05 m/sLateral E/e': 19.41RAP: 10 mmHgRVSP: | | 43.57 mmHgTR maxP.57 mmHgTR Vmax: 2.89 m/s Costume Shop Manager:Authenticated by: | | ELIZABETH ROYeport Date/Time: 08-20-2017 [...] |TR Vmax: 2.89 m/s | | | |Costume Shop Manager: | |Authenticated by: BUCK SOTO MD | [...]
--- OUTSIDE RECORDS SUMMARY | ~2019-05-12 | XMS | Encounter Summary ---
Demographics + + + | Address | [address] | | | [place] [address] | + + + | Home Phone [...] [place], | | | | | [place] [address] | | + + + + + | Kellen Briones | ECON | [place] | | | | | [address] | | + + + + + Care Team Providers + +------+ + | Care Linux Support Engineer Name | Role | Phone | + +------+ + | Barb Marte | THANG | | + +------+ + Encounter Details +--------+ + + + + | Date | Type | Department | Care Team | Description | +--------+ + + + + | 01/03/ | Hospital | [facility] | Barb Marte PA | Visit for screening | | 2018 | Encounter | MED CTR MAMMOGRAPHY | [address] | mammogram | | | | [address] | [address] [place] | | | | | [place], [place] | [address] | | | | | [address] | | | | | | [phone] | | | +--------+ + + + [...] | | | | | | [place] [address] | | | | | | [phone] | | | | | | | | +--------+---------+ + + + | 07/30/ | Office | Cardiology | Agata Tinajero DO | | | 2019 | Visit | | [address] | | | | | | [place] | | | | | | [address] | | | | | | | [...] | | some mixed internaldensity on the macros images. No correlate is visible on the [...]
--- OUTSIDE RECORDS SUMMARY | ~2019-05-12 | XMS | Encounter Summary ---
Demographics + + + | Address | [address] | | | [place] [address] | + + + | Home Phone | | + + + | Preferred Language | Unknown | + + + | Marital Status | | + + + | Anabaptism Affiliation | 1041 | + + + | Race | Unknown | + + + | Ethnic Group | Unknown | + + + Author + + + | Author | [facility] | | | and [place] | + + + | Organization | [facility] | | [...] [place], | | | | | [place] [address] | | + + + + + | Kellen Briones | ECON | [place] | | | | | [address] | | + + + + + Care Team Providers + +------+ + | Care Loan Interviewer Mortgage Name | Role | Phone | + +------+ + | Barb Marte | PCP | | + +------+ + Encounter Details +--------+ + + + + | Date | Type | Department | Care Team | Description | +--------+ + + + + | 01/31/ | Hospital | [facility] | Conversion | Diagnosis unknown | | 2018 | Encounter | CONVERSION [address] | Transaction, | | | | | [address] | Provider Unknown | | | | | [place] | [phone] | | | | | [address] | | | | | | [phone] | | | +--------+ + + + [...] | | | | | | [place] [address] | | | | | | [phone] | | | | | | | | +--------+---------+ + + + | 07/30/ | Office | Cardiology | Agata Tinajero DO | | | 2019 | Visit | | [address] | | | | | | [place] | | | | | | [address] | | | | | | | [...]
--- OUTSIDE RECORDS SUMMARY | ~2019-05-12 | XMS | Encounter Summary ---
Demographics + + + | Address | [address] | | | [place] [address] | + + + | Home Phone | | + + + | Preferred Language | Unknown | + + + | Marital Status | | + + + | Catholic Affiliation | 1041 | + + + | Race | Unknown | + + + | Ethnic Group | Unknown | + + + Author + + + | Author | [facility] | | | and [place] | + + + | Organization | [facility] | | [...] [place], | | | | | [place] [address] | | + + + + + | Kellen Briones | ECON | [place], [place] | | | | | [address] | | + + + + + Care Team Providers + +------+ + | Care Tin Stacker Name | Role | Phone | + [...] + + | 04/05/ | Telephone | [facility] [place] | Irving Becerril, | Medication Question | | 2015 | | [facility] [address] | DO [address] | | | | | [facility] | [address] [place], [place] | | | | | [place], [place] | [id number] | | | | | [address] | | | | | | [phone] | | | +--------+ + + + [...] [place] | | | | | [place] [address] | | | | | | [phone] | | | | | | | | +--------+---------+ + + + | 07/30/ | Office | Cardiology | Agata Tinajero DO | | | 2019 | Visit | | [address] | | | | | | [place] | | | | | | [phone] | | | | | | | | +--------+---------+ + + + documented as of this encounter Visit Diagnoses Not on filedocumented in this encounter"
--- OUTSIDE RECORDS SUMMARY | ~2019-05-12 | XMS | Encounter Summary ---
Demographics + + + | Address | [address] | | | [place] [address] | + + + | Home Phone [...] [place], | | | | | [place] [address] | | + + + + + | Kellen Briones | ECON | [place], [place] | | | | | [address] | | + + + + + Care Team Providers + +------+ + | Care Blanket Winder Operator Name | Role | Phone | [...] | Lumbar | [place], | [address] | | | | | radiculopath | Tk Monreal MD | [place], | | | | | y | [address] | [place] | | | | | Procedures | [place] | [address] | | | | | AL INJECT | [place], [place] | Phone: | | | | | ANES/STEROID | [address] | [phone] | | | | | FORAMEN | Phone: | Fax: | | | | | LUMBAR/SACRA | [phone] | [phone] | | | | | L W IMG | Fax: | | | | | | GUIDE ,1 | [phone] | | | | | | LEVEL AL | | | | | | | TRIAMCINOLON | | | | | | | E ACET INJ | | | | | | | NOS, 10 MG | | | | | | | Bilat. L5-S1 | | | | | | | TFESI To | | | | | | | be done | | | | | | | 1st | | | +--------+--------+ + + + + Encounter Details +--------+ + + + + | Date | Type | Department | Care Team | Description | +--------+ + + + + | 08/21/ | Hospital | [facility] | Mono Diaz, | Lumbar radiculopathy | | 2019 | Encounter | MED CTR XRAY [address] | PA-C [address] | | | | | [place] | [address] [place] | | | | | [place] [address] | [place] [address] | | | | | [phone] | [phone] | | | | | | | | | | | | High Lift Operator, [facility] | | +--------+ + + [...] +---------+ + + | Blood Pressure | 109/52 | 08/21/2018 2:54 PM | | | | | PDT | | + +---------+ + + | Pulse | 81 | 08/21/2018 2:54 PM | | | | | PDT [...] | | | | | | [place] [address] | | | | | | [phone] | | | | | | | | +--------+---------+ + + + | 07/30/ | Office | Cardiology | Agata TinajeroDO | | | 2019 | Visit | | [address] | | | | | | [place] | | | | | | [address] | | | | | | | | +--------+---------+ + + + documented as of this encounter Procedures + +--------+ + + + | Procedure Name | Priori | Date/Time | Associated Diagnosis | Comments | | | ty | | | | + +--------+ + + + | FL EPIDURAL STEROID | Routin | 08/21/2018 | Lumbar | Results for this | | INJECTION LUMBAR | e | 2:33 PM | radiculopathy | procedure are in the | | TRANSFORAMINAL | | PDT | | results section. | + +--------+ + + + documented in this encounter Results [place] BAUTISTA Lumbar Transforaminal (08/21/2018 2:33 PM [...] + + | Performing | Address | [facility] | Phone Number | | Organization | [...] dexamethasone (PF) 10 mg/mL | Given | 08/22/19 | 15 mg | | | | injection 15 mg 15 mg, Other, | | 19 2:50 | | | | | ONCE, Adilene 08/21/18 at 1445, For 1 | | PM PDT | [...] iohexol (OMNIPAQUE 300) 300 | Given | 08/22/19 | 4 mLs | | | | mg/mL injection 4 mL 4 mL, | | 19 2:45 | | | | | Other, ONCE, Adilene 08/21/18 at 1445, | | PM PDT | | | | | For 1 dose | | | | | | + +-------+ +-------+---+---+ +---+---+ | | | +---+---+ + +-------+ +-------+---+---+ | lidocaine (PF) 1% injection 2 | Given | 08/22/19 | 2 mLs | | | | mL 2 mL, Other, ONCE, Adilene | | 19 2:50 | | | | | 08/21/18 at 1445, For 1 dose, | | PM PDT | | | | | EPIDURAL, | | | | | | + +-------+ +-------+---+---+ +---+---+ | | | +---+---+ + +-------+ +-------+---+ + | lidocaine buffered 0.9% | Given | 08/22/19 | 6 mLs | | Other | | injection 6 mL 6 mL, | | 19 2:40 | | | (Comment | | Intradermal, ONCE, Adilene 08/21/18 at | | PM PDT | | | ) | | 1445, For 1 dose | | | | | | + +-------+ +-------+---+ + +---+---+ | | | +---+---+ documented in this encounter"
--- OUTSIDE RECORDS SUMMARY | ~2019-05-12 | XMS | Encounter Summary ---
Demographics + + + | Address | [address] | | | [place] [address] | + + + | Home Phone [...] [place], | | | | | [place] [address] | | + + + + + | Kellen Briones | ECON | [place], [place] | | | | | [address] | | + + + + + Care Team Providers + +------+ + | Care Lead Manufacturing Engineer Name | Role | Phone | [...] | | | | | | | ID | | | | | | | [...] + + | 03/30/ | Surgery | [facility] | Irving Becerril, | C3-4, C4-5, C5-6, | | 2016 | | MED CTR OR INTRA OP | DO [address] | C6-7 Anterior | | | | [address] | [address] [place], [place] | Cervical Discectomy | | | | [place], [place] | [address] | w/ Fusion and | | | | [address] | | Plating | | | | [phone] | | | +--------+---------+ + + + [...] lumbar Spinal stenosis of lumbar region with [id number] level moderately severe Facet arthritis of lumbar [...] of admission the patient was admitted to [facility] and underwent a C3-C7 fusion. Patient [...] signed by: Chavo Jacob, 03/31/2016 7:59 [facility] documented in this encounter Discharge Instructions Instructions Merle Ricci, CUFF STITCHER - 03/31/2016Discharge Instructions for Cervical Fusion You [...] t raise your hands over your head [id number](s)after your surgery. Don t drive until your [...] this your 1 month post op appointment. 2800-4852 [employer]. [address] [place] [address]. All righ ts reserved. This information is not intended as a substitute for professional medical care. Always follow your healthcare professional's instructions. If you would like Home Health: Call [facility] at [phone] documented in this encounter Medications at Time [...] might be different f rom the original. [facility] NEUROSURGERY PROGRESS NOTE Pt. Name/Age/: Clementine Winchester [...] signed by: Chavo Jacob, 03/31/2016 7:48 [facility] documented in this encounter Plan of [...] | | | | | | [place] [address] | | | | | | [phone] | | | | | | | | +--------+---------+ + + + | 07/30/ | Office | Cardiology | Agata Tinajero DO | | | 2019 | Visit | | [address] | | | | | | [place] | | | | | | [address] | | | | | | | [...] [address] | [place] | [phone] | | [facility] | | [address] | | | - LABORATORY | | | | + + + + + KALPESH PatrickHiarm Mccollum (03/30/2016 4:25 PM PDT) + + [...] [address] | [place] | [phone] | | [facility] | | [address] | | | - LABORATORY | | [...] St | [place] | | | [facility] | | [address] | | | - BLOOD BANK | [...]
--- OUTSIDE RECORDS SUMMARY | ~2019-05-12 | XMS | Encounter Summary ---
Demographics + + + | Address | [address] | | | [place] [address] | + + + | Home Phone [...] [place], | | | | | [place] [address] | | + + + + + | Kellen Briones | ECON | [place], [place] | | | | | [address] | | + + + + + Care Team Providers + +------+ + | Care Cooky Packer Name | Role | Phone | + +------+ + PCP | Unavailable | + +------+ + Encounter Details +--------+ + + + + | Date | Type | Department | Care Team | Description | +--------+ + + + + | 07/06/ | Hospital | C GENERIC IP | Anuj Gallego MD | [facility]endo Infr, Init | | 2009 - | Encounter | CONVERSION DEP [phone] | | Episd ([facility]) | | | | [address] | | | | 07/14/ | | [place] | | | | 2009 | | [address] | | | | | | [phone] | | | +--------+ + + + [...] | | | | | | [place] [address] | | | | | | [phone] | | | | | | | | +--------+---------+ + + + | 07/30/ | Office | Cardiology | Agata Tinajero DO | | | 2020 | Visit | | [address] | | | | | | [place] | | | | | | [phone] | | | | | | | | +--------+---------+ + + + documented as of this encounter Procedures + +--------+ + + + | Procedure Name | Priori | Date/Time | Associated Diagnosis | Comments | | | ty | | | | + +--------+ + + + | XR CHEST 2 VIEWS | Routin | 07/12/2009 | | Results for this | | | e | 7:27 AM | | procedure are in the | | | | PST | | results section. | + +--------+ + + + | XR CHEST 1 VIEW | Routin | 07/10/2009 | | Results for this | | | e | 5:33 AM | | procedure are in the | | | | PST | | results section. | + +--------+ + + + | XR CHEST 1 VIEW | Routin | 07/09/2009 | | Results for this | | | e | 12:25 PM | | procedure are in the | | | | PST | | results section. | + +--------+ + + + | ECHO | Routin | 07/09/2009 | | Results for this | | TRANSESOPHAGEAL(BECKY) | e | 11:45 AM | | procedure are in the | | - PERIOPERATIVE | | PST | | results section. | + +--------+ + + + | XR CHEST 2 VIEWS | Routin | 07/08/2009 | | Results for this | | | e | 12:33 PM | | procedure are in the | | | | PST | | results section. | + +--------+ + + + | ECHO COMPLETE | Routin | 07/07/2009 | | Results for this | | | e | 2:30 PM | | procedure are in the | | | | PST | | results section. | + +--------+ + + + | US VEINS EXTREMIITY | Routin | 07/07/2009 | | Results for this | | BILATERAL | e | 2:10 PM | | procedure are in the | | | | PST | | results section. | + +--------+ + + + | VAS CAROTID DUPLEX | Routin | 07/07/2009 | | Results for this | | BILATERAL | e | 2:01 PM | | procedure are in the | | | | PST | | results section. | + +--------+ + + + | CV CARDIAC PROCEDURE | Routin | 07/06/2009 | | Results for this | | | e | 4:45 PM | | procedure are in the | | | | PST | | results section. | + +--------+ + + + documented in this encounter Results XR Chest 2 Vws (07/12/2009 7:27 AM PST) + + | Specimen | + + | | + + + + + | Narrative | Performed At | + + + | [facility] | | | [facility] [address] | | | , | | | [id number]/RADIOLOGY Patient Name: CLEMENTINE NUNEZ Date of : | | | 1940 Medical Record: [id number] Account: [id number] | | | I/P/CU [id number]/ Exam Date/Time: 07/12/2009 | | | 05:00 A Ordering Provider: ROSALVA LOZADA Order Detail: 7000 / | | | / HDI Exam Description: XR CHEST 2 VIEW | | | | | | ONE-VIEW CHEST 07/12/2009 HISTORY A 69-year-old female third day | | | status post heart surgery. TECHNIQUE AP portable erect technique | | | was performed at 0720 hours. FINDINGS Small bilateral pleural | | | effusions are again noted, with a left chest tube in place with its | | | tip over the upper left lung field. The cardiac volume is mildly | | | enlarged, unchanged. The inspiratory effort is improved as compared | | | with 07/10/2009. No pneumothorax. A right jugular central venous | | | catheter is in good position in the SVC. The prior Ozona-Gideon catheter | | | has been removed. No obvious mediastinal drainage catheter. The | | | bowel gas pattern of the upper abdomen is unremarkable. | | | CONCLUSION 1. Small or minimal bilateral pleural effusions. 2. | | | Better inspiratory effort. 3. Better aeration of the upper lung | | | kee. Read by ARAVIND WOLF MD 07/12/2009 12:24 P | | | Electronically Signed by ARAVIND WOLF MD 07/12/2009 11:16 P | | | P P SLW/[id number]/ | | | cc: MD ANUJ PERLA MD STEVEN L | | | MD MARYANN | | + + + + + | Procedure Note | + + | Nilay Lawrence Conversion - 01/25/2019 5:24 PM PDT | | [facility] | | [facility] [address] | | , | | | | [id number]/RADIOLOGY | | | | Patient Name: CLEMENTINE NUNEZ | | Date of : 1940 | | Medical Record: [id number] | | Account: [id number] | | I/P/CU [id number]/ | | | | | | Exam Date/Time: 07/12/2009 05:00 A | | Ordering Provider: ROSALVA LOZADA | | Order Detail: 7000 / / HDI | | Exam Description: XR CHEST 2 VIEW | | | | ONE-VIEW CHEST 07/12/2009 | | | | HISTORY | | A 69-year-old female third day status post heart surgery. | | | | TECHNIQUE | | AP portable erect technique was performed at 0720 hours. | | | | FINDINGS | | Small bilateral pleural effusions are again noted, with a left chest | | tube in place with its tip over the upper left lung field. | | | | The cardiac volume is mildly enlarged, unchanged. The inspiratory effort | | is improved as compared with 07/10/2009. No pneumothorax. | | | | A right jugular central venous catheter is in good position in the SVC. | | The prior Ozona-Gideon catheter has been removed. No obvious mediastinal | | drainage catheter. The bowel gas pattern of the upper abdomen is | | unremarkable. | | | | CONCLUSION | | 1. Small or minimal bilateral pleural effusions. | | 2. Better inspiratory effort. | | 3. Better aeration of the upper lung kee. | | | | | | Read by | | ARAVIND WOLF MD 07/12/2009 12:24 P | | Electronically Signed by | | ARAVIND WOLF MD 07/12/2009 11:16 P | | | | P | | P | | GLENDY/imtiaz/[id number]/ | | cc: ROSALVA LOZADA MD | | ANUJ GALLEGO MD | | ARAVIND WOLF MD | + + XR Chest 1 Vw (07/10/2009 5:33 AM PST) + + | Specimen | + + | | + + + + + | Narrative | Performed At | + + + | [facility] | | | [facility] [address] | | | , | | | [id number]/RADIOLOGY Patient Name: CLEMENTINE NUNEZ Date of : | | | 1940 Medical Record: [id number] Account: [id number] | | | [place] [id number]/ Exam Date/Time: 07/10/2009 | | | 05:00 A Ordering Provider: ROSALVA LOZADA Order Detail: 6980 / | | | / HDI Exam Description: XR CHEST 1 VIEW | | | | | | ONE-VIEW CHEST 07/10/2009 HISTORY A 69-year-old female, evaluate | | | lung kee. TECHNIQUE Single upright view of the chest. | | | COMPARISON 07/09/2009 FINDINGS Right IJ PICC line, thoracostomy | | | tube in the upper left chest, changes post median sternotomy. The | | | endotracheal tube and the enteric tube have both been removed. There | | | are clips and calcification about the mediastinum. There is some | | | fullness and some blunting of the left costophrenic angle and pleural | | | thickening which may be loculated fluid, somewhat hypoinflated with | | | atelectasis and cardiomegaly. IMPRESSION Post extubation with | | | slight increase of lung volumes with atelectasis in the medial left | | | chest, apex, and base, blunting of the left costophrenic angle, and | | | fluid. Read by FAISAL RUELAS MD 07/10/2009 10:32 A | | | Electronically Signed by FAISAL RUELAS MD 07/11/2009 09:49 A | | | A A CHARMAINE/britni/[id number]/ | | | cc: MD FAISAL PERLA MD SAAD | | | MD CHRIS | | + + + + + | Procedure Note | + + | Nilay Lawrence Conversion - 01/25/2019 5:24 PM PDT | | [facility] | | [facility] [address] | | , | | | | [id number]/RADIOLOGY | | | | Patient Name: CLEMENTINE NUNEZ | | Date of : 1940 | | Medical Record: [id number] | | Account: [id number] | | I/P/ [id number]/ | | | | | | Exam Date/Time: 07/10/2009 05:00 A | | Ordering Provider: ROSALVA LOZADA | | Order Detail: 6980 / / HDI | | Exam Description: XR CHEST 1 VIEW | | | | ONE-VIEW CHEST 07/10/2009 | | | | HISTORY | | A 69-year-old female, evaluate lung kee. | | | | TECHNIQUE | | Single upright view of the chest. | | | | COMPARISON | | 07/09/2009 | | | | FINDINGS | | Right IJ PICC line, thoracostomy tube in the upper left chest, changes | | post median sternotomy. The endotracheal tube and the enteric tube have | | both been removed. There are clips and calcification about the | | mediastinum. There is some fullness and some blunting of the left | | costophrenic angle and pleural thickening which may be loculated fluid, | | somewhat hypoinflated with atelectasis and cardiomegaly. | | | | IMPRESSION | | Post extubation with slight increase of lung volumes with atelectasis in | | the medial left chest, apex, and base, blunting of the left costophrenic | | angle, and fluid. | | | | | | Read by | | FAISAL RUELAS MD 07/10/2009 10:32 A | | Electronically Signed by | | FAISAL RUELAS MD 07/11/2009 09:49 A | | | | A | | A | | [facility] [id number]//[id number]/ | | cc: ROSALVA LOZADA MD | | FAISAL RUELAS MD | | ANUJ GALLEGO MD | + + XR Chest 1 Vw (07/09/2009 12:25 PM PST) + + | Specimen | + + | | + + + + + | Narrative | Performed At | + + + | [facility] | | | [facility] [address] | | | , | | | [id number]/RADIOLOGY Patient Name: CLEMENTINE NUNEZ Date of : | | | 1940 Medical Record: [id number] Account: [id number] | | | I/P/[facility] / Exam Date/Time: 07/09/2009 | | | 12:13 P Ordering Provider: ROSALVA LOZADA Order Detail: 6980 / | | | / HDI Exam Description: XR CHEST 1 VIEW | | | | | | X-RAY CHEST ONE VIEW 07/09/2009 HISTORY A 69-year-old female | | | status post cardiac surgery. Evaluate line and tube placement. | | | TECHNIQUE An AP view of the chest is obtained. FINDINGS An | | | endotracheal tube is seen with its tip at the navneet. This should be | | | withdrawn 2 to 3 cm. A nasogastric tube is noted with its tip | | | overlying the stomach. A right sided Ozona-Gideon catheter is seen with | | | its tip in the main pulmonary artery. A right sided central line is | | | also seen from an IJ approach with its tip in the superior vena cava | | | at the level of the navneet. A left sided chest tube is seen with its | | | tip at the left pulmonary apex. A left sided pleural effusion is | | | noted. Epicardial pacing wires are seen. There is a mediastinal drain | | | noted. No pneumothorax is demonstrated. The right lung shows mild | | | postoperative edema and the left upper lobe is well aerated. | | | IMPRESSION 1. Endotracheal tube is at the navneet and should be | | | withdrawn 2 to 3 cm. 2. Right sided central line, Ozona-Gideon | | | catheter, left sided chest tube and mediastinal drain are in | | | satisfactory position. 3. Nasogastric tube in satisfactory position. | | | 4. Left lower lobe infiltrate and effusion noted. Findings were | | | reported to the nurse taking care of the patient in the critical care | | | unit at 12:41 p.m. 07/09/2009. Read by VERONICA LOPEZ DO | | | 07/09/2009 12:38 P Electronically Signed by VERONICA LOPEZ DO | | | 07/10/2009 10:37 P P | | | 05:09 P /[id number]/[id number]/ cc: MD VERONICA PERLA | | | DO ANUJ LOPEZ MD | | + + + + + | Procedure Note | + + | Nilay Lawrence Conversion - 01/25/2019 5:24 PM PDT | | [facility] | | [facility] [address] | | , | | | | [id number]/RADIOLOGY | | | | Patient Name: CLEMENTINE NUNEZ | | Date of : 1940 | | Medical Record: [id number] | | Account: [id number] | | I/P/ALFREDO / | | | | | | Exam Date/Time: 07/09/2009 12:13 P | | Ordering Provider: ROSALVA LOZADA | | Order Detail: 6980 / / HDI | | Exam Description: XR CHEST 1 VIEW | | | | X-RAY CHEST ONE VIEW 07/09/2009 | | | | HISTORY | | A 69-year-old female status post cardiac surgery. Evaluate line and tube | | placement. | | | | TECHNIQUE | | An AP view of the chest is obtained. | | | | FINDINGS | | An endotracheal tube is seen with its tip at the navneet. This should be | | withdrawn 2 to 3 cm. | | | | A nasogastric tube is noted with its tip overlying the stomach. A right | | sided Ozona-Gideon catheter is seen with its tip in the main pulmonary | | artery. A right sided central line is also seen from an IJ approach with | | its tip in the superior vena cava at the level of the navneet. A left | | sided chest tube is seen with its tip at the left pulmonary apex. A left | | sided pleural effusion is noted. Epicardial pacing wires are seen. There | | is a mediastinal drain noted. No pneumothorax is demonstrated. The right | | lung shows mild postoperative edema and the left upper lobe is well | | aerated. | | | | IMPRESSION | | 1. Endotracheal tube is at the navneet and should be withdrawn 2 to 3 cm. | | | | 2. Right sided central line, Ozona-Gideon catheter, left sided chest tube | | and mediastinal drain are in satisfactory position. | | 3. Nasogastric tube in satisfactory position. | | 4. Left lower lobe infiltrate and effusion noted. | | | | Findings were reported to the nurse taking care of the patient in the | | critical care unit at 12:41 p.m. 07/09/2009. | | | | | | Read by | | VERONICA LOPEZ DO 07/09/2009 12:38 P | | Electronically Signed by | | VERONICA LOPEZ DO 07/10/2009 10:37 P | | | | P | | P | | EI/[id number]/ | | cc: ROSALVA LOZADA MD | | VERONICA LOPEZ DO | | ANUJ GALLEGO MD | + + ECHO Transesophageal (BECKY) - Periop (07/09/2009 11:45 AM PST) + + | Specimen | + + | | + + + + + | Narrative | Performed At | + + + | See medical record for report. This is a converted record that was | | | non-reportable in [employer] system. | | + + + + + | Procedure Note | + + | Nilay Lawrence Conversion - 01/25/2019 5:24 PM PDT See medical record for report. This is | | a converted record that was non-reportable in [employer] system. | + + XR Chest 2 Vws (07/08/2009 12:33 PM PST) + + | Specimen | + + | | + + + + + | Narrative | Performed At | + + + | [facility] | | | [facility] [address] | | | , | | | [id number]/RADIOLOGY Patient Name: CLEMENTINE NUNEZ Date of : | | | 1940 Medical Record: [id number] Account: [id number] | | | I/P/MADIHA [id number]/ Exam Date/Time: 07/08/2009 | | | 11:50 A Ordering Provider: RANJIT TRONCOSO Order Detail: | | | 7000 / / HDI Exam Description: XR CHEST 2 VIEW | | | | | | 2-VIEW CHEST 07/08/2009 HISTORY A 69-year-old woman with | | | significant inferior wall ischemia, seen on recent nuclear medicine | | | cardiac study. Preoperative study prior to coronary artery bypass | | | grafting. TECHNIQUE Dual-energy frontal and a lateral chest | | | radiograph were obtained. FINDINGS The lungs are clear and well | | | inflated. The cardiac silhouette and pulmonary vasculature are | | | normal. No pneumothorax or pleural effusion is found. A right breast | | | implant is incidentally noted. No lytic or blastic bony lesions are | | | found. IMPRESSION No evidence of acute cardiopulmonary disease. | | | Read by MARCIA MOTLEY MD 07/08/2009 01:04 P | | | Electronically Signed by MARCIA MOTLEY MD 07/09/2009 08:59 A | | | P A [id number]/ | | | cc: JIM SANCHEZ MD | | | ANUJ GALLEGO MD | | + + + + + | Procedure Note | + + | Nilay Lawrence - 01/25/2019 5:24 PM PDT | | [facility] | | [facility] [address] | | , | | | | [id number]/RADIOLOGY | | | | Patient Name: CLEMENTINE NUNEZ | | Date of : 1940 | | Medical Record: [id number] | | Account: [id number] | | I/P/CU [id number]/ | | | | | | Exam Date/Time: 07/08/2009 11:50 A | | Ordering Provider: RANJIT TRONCOSO | | Order Detail: 7000 / / HDI | | Exam Description: XR CHEST 2 VIEW | | | | 2-VIEW CHEST 07/08/2009 | | | | HISTORY | | A 69-year-old woman with significant inferior wall ischemia, seen on | | recent nuclear medicine cardiac study. Preoperative study prior to | | coronary artery bypass grafting. | | | | TECHNIQUE | | Dual-energy frontal and a lateral chest radiograph were obtained. | | | | FINDINGS | | The lungs are clear and well inflated. The cardiac silhouette and | | pulmonary vasculature are normal. No pneumothorax or pleural effusion is | | found. A right breast implant is incidentally noted. No lytic or blastic | | bony lesions are found. | | | | IMPRESSION | | No evidence of acute cardiopulmonary disease. | | | | | | | | Read by | | MARCIA MOTLEY MD 07/08/2009 01:04 P | | Electronically Signed by | | MARCIA MOTLEY MD 07/09/2009 08:59 A | | | | P | | A | | [id number]/ | | cc: JIM SANCHEZ | | MARCIA MOTLEY MD | | ANUJ GALLEGO MD | + + ECHO Complete (07/07/2009 2:30 PM PST) + + | Specimen | + + | | + + + + + | Narrative | Performed At | + + + | [id number] | | | Page 1 ECHO [facility] NAME: | | | [place] [address] MEDICAL RECORD #: | | | [id number] | | | DATE OF : 1940 ORDER | | | NUMBER: [id number] EXAM DATE/TIME: 07/07/2009 13:49 PERFORMING | | | PHYSICIAN: nAuj Gallego MD ORDER DETAIL: 2069 ORDER | | | DESCRIPTION: ECHO CARDIAC ADULT WITH DOPPLER COLOR FLOW | | | | | | INDICATIONS Post Heart Cath, eval valves and function | | | pre-op. CONCLUSIONS 1. Overall left ventricular | | | systolic function is normal with, an EF between 60 - 65 %. 2. The | | | diastolic filling pattern indicates impaired relaxation consistent | | | with mild dysfunction (Grade I). 3. The right ventricle is severely | | | enlarged measuring >4.1 cm. FINDINGS -------- ECG rhythm: Sinus | | | rhythm. Study: A 2-dimensional transthoracic echocardiogram with | | | m-mode, spectral and color flow Doppler was perfomed. Study: This was | | | a technically adequate study. Left Ventricle: Overall left | | | ventricular systolic function is normal with, an EF between 60 - 65 %. | | | Left Ventricle: Left Ventricle ejection fraction by m-mode measures | | | 68%. Left Ventricle: The left ventricle cavity size is normal. Left | | | Ventricle: Left ventricular wall thickness is normal. Left Ventricle: | | | The diastolic filling pattern indicates impaired relaxation | | | consistent with mild dysfunction (Grade I). Right Ventricle: The | | | right ventricle is severely enlarged measuring >4.1 cm. Right | | | Ventricle: The right ventricular systolic function is normal. Left | | | Atrium: The left atrial size is normal Left Atrium: , and the LA | | | measures 3.6cm. Right Atrium: The right atrial size is normal Right | | | Atrium: , and the RA measures 4.5cm. Aortic Valve: The aortic valve | | | is trileaflet and appears structurally normal. Aortic Valve: The | | | aortic valve is mildly calcified. Aortic Valve: There is no evidence | | | of aortic regurgitation. Mitral Valve: The mitral valve is normal. | | | Mitral Valve: Mild mitral regurgitation is present Mitral Valve: , | | | predominately a centrally directed jet. Tricuspid Valve: The | | | tricuspid valve appears structurally normal. Tricuspid Valve: Mild | | | tricuspid regurgitation present. Tricuspid Valve: Right ventricular | | | systolic pressure (pulmonary artery systolic pressure) is normal at < | | | 35 mmHg. Pulmonic Valve: The pulmonic valve was not well visualized. | | | Pericardium: There is no pericardial effusion. IVC/Hepatic Veins: | | | The IVC is small (<1.5cm) and collapses with sniff, consistent with | | | central venous pressures of 0-5mmHg. Thrombus: No clot visualized | | | Thrombus: No vegetation visualized. MEASUREMENTS | | | LA Major: 4.25 cm EDV(Teich): 62.49 ml IVSd: 0.67 cm | | | LVIDd: 3.81 cm LVPWd: 0.99 cm LVOT Diam: 1.63 cm %FS: | | | 37.98 % EF(Teich): 68.89 % ESV(Teich): 19.43 ml IVSs: 1.26 | | | cm LVIDs: 2.36 cm LVPWs: 1.26 cm SV(Teich): 43.05 ml RA | | | Major: 4.53 cm RVIDd: 4.08 cm LVEF MOD A2C: 65.64 % SV MOD | | | A2C: 58.01 ml LVEF MOD A4C: 70.24 % SV MOD A4C: 51.57 ml | | | EF Biplane: 67.75 % LVEDV MOD BP: 86.49 ml LVESV MOD BP: | | | 27.89 ml LVEDV MOD A2C: 88.38 ml LVLd A2C: 7.08 cm LVEDV MOD | | | A4C: 73.41 ml LVLd A4C: 6.04 cm LVESV MOD A2C: 30.36 ml | | | LVLs A2C: 5.07 cm LVESV MOD A4C: 21.84 ml LVLs A4C: 4.30 cm | | | CO Biplane: 4.59 l/min HR: 78.40 BPM R-R: 765.24 ms | | | LAESV(A-L): 35.23 ml LAESV Index (A-L): 19.90 ml/m2 LAAs A2C: | | | 16.02 cm2 LAESV A-L A2C: 39.78 ml LALs A2C: 5.48 cm LAAs | | | A4C: 13.91 cm2 LAESV A-L A4C: 30.58 ml LALs A4C: 5.37 cm | | | Ao Diam: 2.60 cm AV Cusp: 1.30 cm LA Diam: 3.63 cm LA/Ao: | | | 1.39 %FS: 37.5 % EDV(Teich): 83.61 ml EF(Teich): 67.83 | | | % ESV(Teich): 26.89 ml IVSd: 1.04 cm IVSs: 1.27 cm LVIDd: | | | 4.31 cm LVIDs: 2.69 cm LVPWd: 1.04 cm LVPWs: 1.27 cm | | | SV(Teich): 56.72 ml D-E Excursion: 1.44 cm E-F Cowlitz: 0.04 | | | m/s EPSS: 0.76 cm IVC diameter: 1.27 cm IVC collapse: 0.31 | | | cm IVC % collapse: 73.72 % HR: 81.96 BPM AV maxP.03 | | | mmHg AV meanP.44 mmHg AV Vmax: 1.50 m/s AV Vmean: 0.99 | | | m/s AV VTI: 26.02 cm PREETHI Vmax: 1.39 cm2 PREETHI (VTI): 1.60 | | | cm2 LVCI Dopp: 1.83 l/minm2 LVCO Dopp: 3.25 l/min HR: | | | 78.02 BPM LVOT maxP.00 mmHg LVOT meanP.11 mmHg LVSI | | | Dopp: 23.57 ml/m2 LVSV Dopp: 41.72 ml LVOT Vmax: 1.00 m/s | | | LVOT Vmean: 0.69 m/s LVOT VTI: 19.92 cm MCO: 425.13 ms MV | | | A Obed: 1.34 m/s MV DecT: 108.70 ms MV E Obed: 0.97 m/s MV | | | E/A Ratio: 0.72 MV PHT: 28.18 ms MVA By PHT: 7.80 cm2 MV A | | | Dur: 109.05 ms Septal e': 0.05 m/s Septal E/e': 17.36 | | | Lateral e': 0.07 m/s Lateral E/e': 13.01 P Vein A: 0.32 m/s | | | P Vein A Dur: 59.14 ms P Vein D: 0.41 m/s P Vein S/D Ratio: | | | 1.38 P Vein S: 0.57 m/s HR: 83.65 BPM PV maxP.53 | | | mmHg PV meanP.05 mmHg PV Vmax: 0.79 m/s PV Vmean: 0.70 | | | m/s PV VTI: 12.02 cm TR maxP.85 mmHg TR Vmax: 2.44 | | | m/s TV A Obed: 0.65 m/s TV Dec Cowlitz: 1.90 m/s2 TV Dec Time: | | | 260.30 ms TV E Obed: 0.49 m/s TV E/A Ratio: 0.75 | | | Shirt Cleaner: EZEKIEL Authenticated by: Anuj Gallego MD Report Date/Time: | | | 07-08-2009 08:56:44 | | + + + + + | Procedure Note | + + | Nilay Lawrence - 01/25/2019 5:24 PM PDT [id number] | | [address] [place] [address] NAME: MAYRA ANA RODRIGUEZ | | [id number] : ACCOUNT #: | | [id number]: DATE OF : 2ORDER NUMBER: | | [id number] DATE/TIME: 07/07/2009 13:49PERFORMING PHYSICIAN: Anuj Gallego MDORDER | | DETAIL: 2069 DESCRIPTION: ECHO CARDIAC ADULT WITH DOPPLER COLOR | | FLOW INDICATIONS | | -Post Heart Cath, eval valves and function pre-op. CONCLUSIONS 1. Overall left | | ventricular systolic function is normal with, an EF between 60 - 65 %.2. The diastolic | | filling pattern indicates impaired relaxation consistent with mild dysfunction (Grade | | I).3. The right ventricle is severely enlarged measuring >4.1 cm. FINDINGS--------ECG | | rhythm: Sinus rhythm.Study: A 2-dimensional transthoracic echocardiogram with m-mode, | | spectral and color flow Doppler was perfomed.Study: This was a technically adequate | | study.Left Ventricle: Overall left ventricular systolic function is normal with, an EF | | between 60 - 65 %.Left Ventricle: Left Ventricle ejection fraction by m-mode measures | | 68%.Left Ventricle: The left ventricle cavity size is normal.Left Ventricle: Left | | ventricular wall thickness is normal.Left Ventricle: The diastolic filling pattern | | indicates impaired relaxation consistent with mild dysfunction (Grade I).Right | | Ventricle: The right ventricle is severely enlarged measuring >4.1 cm.Right Ventricle: | | The right ventricular systolic function is normal.Left Atrium: The left atrial size is | | normalLeft Atrium: , and the LA measures 3.6cm.Right Atrium: The right atrial size is | | normalRight Atrium: , and the RA measures 4.5cm.Aortic Valve: The aortic valve is | | trileaflet and appears structurally normal.Aortic Valve: The aortic valve is mildly | | calcified.Aortic Valve: There is no evidence of aortic regurgitation.Mitral Valve: The | | mitral valve is normal.Mitral Valve: Mild mitral regurgitation is presentMitral Valve: , | | predominately a centrally directed jet.Tricuspid Valve: The tricuspid valve appears | | structurally normal.Tricuspid Valve: Mild tricuspid regurgitation present.Tricuspid | | Valve: Right ventricular systolic pressure (pulmonary artery systolic pressure) is | | normal at < 35 mmHg.Pulmonic Valve: The pulmonic valve was not well | | visualized.Pericardium: There is no pericardial effusion.IVC/Hepatic Veins: The IVC is | | small (<1.5cm) and collapses with sniff, consistent with central venous pressures of | | 0-5mmHg.Thrombus: No clot visualizedThrombus: No vegetation visualized. | | MEASUREMENTS LA Major: 4.25 cmEDV(Teich): 62.49 mlIVSd: 0.67 cmLVIDd: | | 3.81 cmLVPWd: 0.99 cmLVOT Diam: 1.63 cm%FS: 37.98 %EF(Teich): 68.89 | | %ESV(Teich): 19.43 mlIVSs: 1.26 cmLVIDs: 2.36 cmLVPWs: 1.26 cmSV(Teich): 43.05 | | mlRA Major: 4.53 cmRVIDd: 4.08 cmLVEF MOD A2C: 65.64 %SV MOD A2C: 58.01 mlLVEF | | MOD A4C: 70.24 %SV MOD A4C: 51.57 mlEF Biplane: 67.75 %LVEDV MOD BP: 86.49 | | mlLVESV MOD BP: 27.89 mlLVEDV MOD A2C: 88.38 mlLVLd A2C: 7.08 cmLVEDV MOD A4C: | | 73.41 mlLVLd A4C: 6.04 cmLVESV MOD A2C: 30.36 mlLVLs A2C: 5.07 cmLVESV MOD A4C: | | 21.84 mlLVLs A4C: 4.30 cmCO Biplane: 4.59 l/minHR: 78.40 BPMR-R: 765.24 | | msLAESV(A-L): 35.23 mlLAESV Index (A-L): 19.90 ml/m2LAAs A2C: 16.02 [id number] A-L | | A2C: 39.78 mlLALs A2C: 5.48 cmLAAs A4C: 13.91 qu6MHXGV A-L A4C: 30.58 mlLALs | | A4C: 5.37 cmAo Diam: 2.60 cmAV Cusp: 1.30 cmLA Diam: 3.63 cmLA/Ao: 1.39%FS: | | 37.5 %EDV(Teich): 83.61 mlEF(Teich): 67.83 %ESV(Teich): 26.89 mlIVSd: 1.04 | | cmIVSs: 1.27 cmLVIDd: 4.31 cmLVIDs: 2.69 cmLVPWd: 1.04 cmLVPWs: 1.27 | | cmSV(Teich): 56.72 mlD-E Excursion: 1.44 cmE-F Cowlitz: 0.04 m/sEPSS: 0.76 cmIVC | | diameter: 1.27 cmIVC collapse: 0.31 cmIVC % collapse: 73.72 %HR: 81.96 BPMAV | | maxP.03 mmHgAV meanP.44 mmHgAV Vmax: 1.50 m/Shreyas Vmean: 0.99 m/Shreyas VTI: | | 26.02 cmAVA Vmax: 1.39 cm2AVA (VTI): 1.60 [id number] Dopp: 1.83 l/impj4EGQR Dopp: | | 3.25 l/minHR: 78.02 BPMLVOT maxP.00 mmHgLVOT meanP.11 mmHgLVSI Dopp: | | 23.57 ml/m2LVSV Dopp: 41.72 mlLVOT Vmax: 1.00 m/sLVOT Vmean: 0.69 m/sLVOT VTI: | | 19.92 cmMCO: 425.13 msMV A Obed: 1.34 m/sMV DecT: 108.70 msMV E Obed: 0.97 m/sMV | | E/A Ratio: 0.72MV PHT: 28.18 msMVA By PHT: 7.80 cm2MV A Dur: 109.05 msSeptal e': | | 0.05 m/sSeptal E/e': 17.36Lateral e': 0.07 m/sLateral E/e': 13.01P Vein A: | | 0.32 m/sP Vein A Dur: 59.14 msP Vein D: 0.41 m/sP Vein S/D Ratio: 1.38P Vein S: | | 0.57 m/sHR: 83.65 BPMPV maxP.53 mmHgPV meanP.05 mmHgPV Vmax: 0.79 m/sPV | | Vmean: 0.70 m/sPV VTI: 12.02 cmTR maxP.85 mmHgTR Vmax: 2.44 m/sTV A Obed: | | 0.65 m/sTV Dec Cowlitz: 1.90 m/s2TV Dec Time: 260.30 msTV E Obed: 0.49 m/sTV E/A | | Ratio: 0.75 Shirt Cleaner: MIKAuthenticated by: Anuj JOHNSONeport Date/Time: | | 07-08-2009 08:56:44 | |LVIDd: 3.81 cm | |LVPWd: 0.99 cm | |LVOT Diam: 1.63 cm | |%FS: 37.98 % | |EF(Teich): 68.89 % | |ESV(Teich): 19.43 ml | |IVSs: 1.26 cm | |LVIDs: 2.36 cm | |LVPWs: 1.26 cm | |SV(Teich): 43.05 ml | |RA Major: 4.53 cm | |RVIDd: 4.08 cm | |LVEF MOD A2C: 65.64 % | |SV MOD A2C: 58.01 ml | |LVEF MOD A4C: 70.24 % | |SV MOD A4C: 51.57 ml | |EF Biplane: 67.75 % | |LVEDV MOD BP: 86.49 ml | |LVESV MOD BP: 27.89 ml | |LVEDV MOD A2C: 88.38 ml | |LVLd A2C: 7.08 cm | |LVEDV MOD A4C: 73.41 ml | |LVLd A4C: 6.04 cm | |LVESV MOD A2C: 30.36 ml | |LVLs A2C: 5.07 cm | |LVESV MOD A4C: 21.84 ml | |LVLs A4C: 4.30 cm | |CO Biplane: 4.59 l/min | |HR: 78.40 BPM | |R-R: 765.24 ms | |LAESV(A-L): 35.23 ml | |LAESV Index (A-L): 19.90 ml/m2 | |LAAs A2C: 16.02 cm2 | |LAESV A-L A2C: 39.78 ml | |LALs A2C: 5.48 cm | |LAAs A4C: 13.91 cm2 | |LAESV A-L A4C: 30.58 ml | |LALs A4C: 5.37 cm | |Ao Diam: 2.60 cm | |AV Cusp: 1.30 cm | |LA Diam: 3.63 cm | |LA/Ao: 1.39 | |%FS: 37.5 % | |EDV(Teich): 83.61 ml | |EF(Teich): 67.83 % | |ESV(Teich): 26.89 ml | |IVSd: 1.04 cm | |IVSs: 1.27 cm | |LVIDd: 4.31 cm | |LVIDs: 2.69 cm | |LVPWd: 1.04 cm | |LVPWs: 1.27 cm | |SV(Teich): 56.72 ml | |D-E Excursion: 1.44 cm | |E-F Cowlitz: 0.04 m/s | |EPSS: 0.76 cm | |IVC diameter: 1.27 cm | |IVC collapse: 0.31 cm | |IVC % collapse: 73.72 % | |HR: 81.96 BPM | |AV maxP.03 mmHg | |AV meanP.44 mmHg | |AV Vmax: 1.50 m/s | |AV Vmean: 0.99 m/s | |AV VTI: 26.02 cm | |PREETHI Vmax: 1.39 cm2 | |PREETHI (VTI): 1.60 cm2 | |LVCI Dopp: 1.83 l/minm2 | |LVCO Dopp: 3.25 l/min | |HR: 78.02 BPM | |LVOT maxP.00 mmHg | |LVOT meanP.11 mmHg | |LVSI Dopp: 23.57 ml/m2 | |LVSV Dopp: 41.72 ml | |LVOT Vmax: 1.00 m/s | |LVOT Vmean: 0.69 m/s | |LVOT VTI: 19.92 cm | |MCO: 425.13 ms | |MV A Obed: 1.34 m/s | |MV DecT: 108.70 ms | |MV E Obed: 0.97 m/s | |MV E/A Ratio: 0.72 | |MV PHT: 28.18 ms | |MVA By PHT: 7.80 cm2 | |MV A Dur: 109.05 ms | |Septal e': 0.05 m/s | |Septal E/e': 17.36 | |Lateral e': 0.07 m/s | |Lateral E/e': 13.01 | |P Vein A: 0.32 m/s | |P Vein A Dur: 59.14 ms | |P Vein D: 0.41 m/s | |P Vein S/D Ratio: 1.38 | |P Vein S: 0.57 m/s | |HR: 83.65 BPM | |PV maxP.53 mmHg | |PV meanP.05 mmHg | |PV Vmax: 0.79 m/s | |PV Vmean: 0.70 m/s | |PV VTI: 12.02 cm | |TR maxP.85 mmHg | |TR Vmax: 2.44 m/s | |TV A Obed: 0.65 m/s | |TV Dec Cowlitz: 1.90 m/s2 | |TV Dec Time: 260.30 ms | |TV E Obed: 0.49 m/s | |TV E/A Ratio: 0.75 | | | |Shirt Cleaner: EZEKIEL | |Authenticated by: Anuj Gallego MD | |Report Date/Time: 07-08-2009 08:56:44 | + + US Veins Extremiity Bilateral (07/07/2009 2:10 PM PST) + + | Specimen | + + | | + + + + + | Narrative | Performed At | + + + | [facility] | | | [facility] [address] | | | , | | | [id number]/RADIOLOGY Patient Name: CLEMENTINE NUNEZ Date of : | | | 1940 Medical Record: [id number] Account: [id number] | | | I/P/MADIHA [id number]/ Exam Date/Time: 07/07/2009 | | | 08:00 A Ordering Provider: ANUJ GALLEGO Order Detail: [id number] / | | | / HUS Exam Description: US LOWER EXT VENOUS KHANG | | | | | | BILATERAL LOWER EXTREMITY MAPPING 07/07/2009 HISTORY A | | | 69-year-old woman for preoperative venous mapping of the bilateral | | | lower extremities. FINDINGS The greater saphenous veins were | | | interrogated with pre and post compression brooks-scale imaging and | | | color Doppler analysis and demonstrate no thrombus formation. | | | Right greater saphenous vein: VENOUS SEGMENT | | | DIAMETER DEPTH Saphenous vein junction 0.91 cm 1.5 | | | cm High 0.49 cm 1.4 cm | | | Mid 0.31 cm 1.0 cm Low | | | 0.27 cm 0.89 cm Knee | | | 0.30 cm 0.82 cm Left greater | | | saphenous vein: VENOUS SEGMENT DIAMETER | | | DEPTH Saphenous vein junction 0.92 cm 1.8 cm High | | | 0.58 cm 1.3 cm Mid | | | 0.27 cm 1.2 cm Low | | | 0.38 cm 0.91 cm Knee | | | 0.30 cm 0.98 cm IMPRESSION Saphenous | | | vein mapping, as above, without saphenous vein thrombosis. Read | | | by MARCIA MOTLEY MD 07/07/2009 02:24 P Electronically Signed by | | | MARCIA MOTLEY MD 07/07/2009 09:58 P P | | | P SCK/[id number]/ cc: MARCIA MOTLEY MD | | | ANUJ GALLEGO MD | | + + + + + | Procedure Note | + + | Nilay Lawrence Conversion - 01/25/2019 5:24 PM PDT | | [facility] | | [facility] [address] | | , | | | | [id number]/RADIOLOGY | | | | Patient Name: CLEMENTINE NUNEZ | | Date of : 1940 | | Medical Record: [id number] | | Account: [id number] | | I/P/CU [id number]/ | | | | | | Exam Date/Time: 07/07/2009 08:00 A | | Ordering Provider: ANUJ GALLEGO | | Order Detail: [id number] / / HUS | | Exam Description: US LOWER EXT VENOUS KHANG | | | | BILATERAL LOWER EXTREMITY MAPPING 07/07/2009 | | | | HISTORY | | A 69-year-old woman for preoperative venous mapping of the bilateral | | lower extremities. | | | | FINDINGS | | The greater saphenous veins were interrogated with pre and post | | compression brooks-scale imaging and color Doppler analysis and | | demonstrate no thrombus formation. | | | | Right greater saphenous vein: | | | | VENOUS SEGMENT DIAMETER DEPTH | | Saphenous vein junction 0.91 cm 1.5 cm | | High 0.49 cm 1.4 cm | | Mid 0.31 cm 1.0 cm | | Low 0.27 cm 0.89 cm | | Knee 0.30 cm 0.82 cm | | | | Left greater saphenous vein: | | | | VENOUS SEGMENT DIAMETER DEPTH | | Saphenous vein junction 0.92 cm 1.8 cm | | High 0.58 cm 1.3 cm | | Mid 0.27 cm 1.2 cm | | Low 0.38 cm 0.91 cm | | Knee 0.30 cm 0.98 cm | | | | IMPRESSION | | Saphenous vein mapping, as above, without saphenous vein thrombosis. | | | | | | Read by | | MARCIA MOTLEY MD 07/07/2009 02:24 P | | Electronically Signed by | | MARCIA MOTLEY MD 07/07/2009 09:58 P | | | | P | | P | | CASIMIRO/[id number]/ | | cc: MARCIA MOTLEY MD | | ANUJ GALLEGO MD | + + VAS Carotid Duplex Bilateral (07/07/2009 2:01 PM PST) + + | Specimen | + + | | + + + + + | Narrative | Performed At | + + + | [facility] | | | [facility] [address] | | | , | | | [id number]/RADIOLOGY Patient Name: CLEMENTINE NUNEZ Date of : | | | 1940 Medical Record: [id number] Account: [id number] | | | I/P/ [id number]/ Exam Date/Time: 07/07/2009 | | | 08:00 A Ordering Provider: ANUJ GALLEGO Order Detail: [id number] / | | | / [facility] Exam Description: US CAROTID DOPPLER | | | | | | BILATERAL CAROTID DOPPLER ULTRASOUND 07/07/2009 HISTORY A | | | 69-year-old woman for a preoperative evaluation of the carotid | | | arteries. TECHNIQUE Duplex Doppler analysis of the bilateral | | | carotid and vertebral arterial systems. COMPARISON None. | | | FINDINGS Moderate, relatively soft plaque is found within the | | | bilateral common carotid arterial bulbs extending into the bilateral | | | proximal internal and external carotid arteries, most significant | | | within the right proximal internal carotid artery and bilateral | | | external carotid arteries proximally. Subsequent flow-limiting | | | stenosis is found within the right proximal internal carotid artery | | | and bilateral external carotid arteries proximally, which will be | | | described and graded below. PROX DISTAL | | | PROX MID DISTAL CCA CCA | | | ICA ICA ICA ECA VERTEBRAL R OBED | | | 1.08 1.22 1.39 0.62 0.94 2.28 | | | 0.62 | | | Antegrade | | | | | | Flow Grade 1 2 3 1 | | | 1 4 L OBED 1.10 0.94 0.89 | | | 0.79 0.83 2.13 0.66 | | | | | | Antegrade | | | Flow Grade 1 2 | | | 1 1 1 4 Grade | | | 1 2 3 4 5 | | | 6 Diameter < 50, mild < 50, mod Stenosis % | | | plaque plaque 50-69 70-95 95-99 100 | | | Estimated Flow Reduction None None Mild | | | Moderate Severe Occluded Note: The % categories were | | | changed on 06/10/2003. This may result in a category change compared to | | | a prior exam even if the actual degree of stenosis has not changed. | | | IMPRESSION 1. Grade 3 (50% to 69%) stenosis involving the right | | | internal proximal carotid artery. 2. Grade 2, nonflow-limiting | | | stenoses involving the bilateral distal common carotid arteries | | | in the region of the carotid arterial bulbs, secondary to soft | | | plaque. 3. Grade 4 bilateral external carotid artery stenoses, | | | indicating 70% to 95% stenoses in this region. 4. Antegrade | | | bilateral vertebral arterial flow. Read by Jarocho TEMPLETON MD 07/07/2009 02:11 P Electronically Signed by MARCIA MOTLEY MD | | | 07/07/2009 09:58 P P | | | 02:33 P [id number]/ cc: MD ANUJ TEMPLETON | | | MD CHRIS | | + + + + + | Procedure Note | + + | Nilay Lawrence - 01/25/2019 5:24 PM PDT | | [facility] | | [facility] [address] | | , | | | | [id number]/RADIOLOGY | | | | Patient Name: CLEMENTINE NUNEZ | | Date of : 1940 | | Medical Record: [id number] | | Account: [id number] | | I/P/ [id number]/ | | | | | | Exam Date/Time: 07/07/2009 08:00 A | | Ordering Provider: ANUJ GALLEGO | | Order Detail: [id number] / / HUS | | Exam Description: US CAROTID DOPPLER | | | | BILATERAL CAROTID DOPPLER ULTRASOUND 07/07/2009 | | | | HISTORY | | A 69-year-old woman for a preoperative evaluation of the carotid | | arteries. | | | | TECHNIQUE | | Duplex Doppler analysis of the bilateral carotid and vertebral arterial | | systems. | | | | COMPARISON | | None. | | | | FINDINGS | | Moderate, relatively soft plaque is found within the bilateral common | | carotid arterial bulbs extending into the bilateral proximal internal | | and external carotid arteries, most significant within the right | | proximal internal carotid artery and bilateral external carotid arteries | | proximally. Subsequent flow-limiting stenosis is found within the right | | proximal internal carotid artery and bilateral external carotid arteries | | proximally, which will be described and graded below. | | | | PROX DISTAL PROX MID DISTAL | | CCA CCA ICA ICA ICA ECA VERTEBRAL | | R OBED 1.08 1.22 1.39 0.62 0.94 2.28 0.62 | | Antegrade | | Flow | | Grade 1 2 3 1 1 4 | | L OBED 1.10 0.94 0.89 0.79 0.83 2.13 0.66 | | Antegrade | | Flow | | Grade 1 2 1 1 1 4 | | | | Grade 1 2 3 4 5 6 | | Diameter < 50, mild < 50, mod | | Stenosis % plaque plaque 50-69 70-95 95-99 100 | | Estimated Flow | | Reduction None None Mild Moderate Severe Occluded | | | | Note: The % categories were changed on 06/10/2003. This may result in a | | category change compared to a prior exam even if the actual degree of | | stenosis has not changed. | | | | IMPRESSION | | 1. Grade 3 (50% to 69%) stenosis involving the right internal proximal | | carotid artery. | | 2. Grade 2, nonflow-limiting stenoses involving the bilateral distal | | common carotid arteries in the region of the carotid arterial bulbs, | | secondary to soft plaque. | | 3. Grade 4 bilateral external carotid artery stenoses, indicating 70% to | | 95% stenoses in this region. | | 4. Antegrade bilateral vertebral arterial flow. | | | | | | | | Read by | | MARCIA MOTLEY MD 07/07/2009 02:11 P | | Electronically Signed by | | MARCIA MOTLEY MD 07/07/2009 09:58 P | | | | P | | P | | [facility]/[id number]/ | | cc: MARCIA MOTLEY MD | | ANUJ GALLEGO MD | + + CV CARDIAC PROCEDURE (07/06/2009 4:45 PM PST) + + | Specimen | + + | | + + + + + | Narrative | Performed At | + + + | [facility] | | | [facility] [address] | | | , | | | [id number]/CARDIOLOGY Patient Name: CLEMENTINE NUNEZ Date of : | | | 1940 Medical Record: [id number] Account: [id number] | | | Rajiv/Brendon/MADIHA [id number]/ Exam Date/Time: 07/06/2009 | | | 03:41 P Ordering Provider: CHING DAI Order Detail: [id number] / | | | / HCL Exam Description: CCL HEART CATH LT RETRO PERC | | | | | | PROCEDURES 1. Selective coronary angiography. 2. Left heart | | | catheterization. 3. Left ventriculography. 4. Right femoral | | | angiogram for possible closure device deployment. 5. A 6-Turkmen Mynx | | | closure device deployment at the right arteriotomy site. | | | INDICATIONS The patient is a very pleasant 69-year-old lady | | | who was recently admitted at [facility] after an episode | | | of chest pain. The patient was ruled out for a myocardial infarction | | | and discharged and subsequently was advised to have a stress test at | | | [facility] which was significantly abnormal, | | | revealing evidence of inferior wall ischemia. The patient was | | | subsequently called and advised to return to the emergency room. | | | Cardiac catheterization was, therefore, advised in order to assess | | | her coronary anatomy and rule out obstructive coronary artery disease | | | with greater certainty. DESCRIPTION OF PROCEDURE The patient was | | | brought to the cardiac catheterization lab on an urgent basis. An | | | informed consent was obtained from the patient after explaining the | | | risks and benefits of the procedure, as well as alternative options. | | | The right groin area was prepped and draped in the usual sterile | | | fashion. Local anesthesia was given to the right groin with 1% | | | lidocaine. A 6-Turkmen vascular sheath was inserted in the right | | | femoral artery using the modified Seldinger technique. A JL4 catheter | | | was advanced over the wire under fluoroscopic guidance and engaged | | | selectively with the ostium of the left main coronary artery. Contrast | | | was injected and multiple angiograms were obtained in different | | | angles. The catheter was exchanged over the wire to a JR4 catheter, | | | which was engaged selectively with the ostium of the right coronary | | | artery. Contrast was injected and multiple angiograms were obtained | | | in different angles. The catheter was exchanged over the wire to a | | | pigtail catheter that was introduced into the left ventricular | | | cavity. A left ventriculogram was obtained in the 30-degree PAINTER | | | projection using 36 mL of contrast. The pigtail catheter was then | | | retrieved over the wire and a right femoral angiogram was obtained | | | via the side port of the vascular sheath. The sheath was pulled, and | | | a 6-Turkmen Mynx closure device was deployed at the right arteriotomy | | | site successfully. Hemostasis was achieved in the cardiac | | | catheterization lab. The patient was transferred out of the | | | catheterization lab in stable condition. FINDINGS HEMODYNAMICS | | | Aortic pressure was 145/75 with a mean aortic pressure of 107. Left | | | ventricular pressure was 145/12 with a left ventricular | | | end-diastolic pressure of 12. There was no significant transaortic | | | pressure gradient on catheter pullback. CORONARY ANGIOGRAPHY 1. | | | Left main had a distal 30% to 40% plaque. 2. The LAD had an ostial | | | 60% to 70% stenosis followed by proximal 70% stenosis. The rest | | | of the LAD had mild diffuse disease. The junction between the mid | | | and the distal segment had 3 tandem 50% plaques. 3. The left | | | circumflex artery had a proximal ulcerated 90% stenosis right at | | | the takeoff of the first diagonal branch. The first diagonal | | | branch was a long artery with a long 85% stenosis extending from the | | | ostium to the proximal segment. The fourth obtuse marginal branch | | | was a large-caliber vessel with an ostial 90% stenosis. 4. The | | | right coronary artery was totally occluded in its proximal | | | segment and was filling distally via [id number] collaterals. | | | LEFT VENTRICULOGRAM Left ventriculogram revealed normal left | | | ventricular systolic function with ejection fraction of 60% with | | | severe posterobasal hypokinesis. CONCLUSION 1. Coronary artery | | | disease as described above. 2. Normal left ventricular systolic | | | function with ejection fraction of 60% with posterobasal severe | | | hypokinesis. 3. Normal left ventricular end-diastolic pressure. | | | RECOMMENDATIONS CT surgery consultation was requested from | | | [place] for consideration of coronary artery bypass graft surgery. | | | The patient will be maintained on medical therapy with aggressive | | | risk factor modification. ESTIMATED BLOOD LOSS Less than 50 mL. | | | Read by ANUJ GALLEGO MD 07/07/2009 09:51 P Electronically | | | Signed by ANUJ GALLEGO MD 07/24/2009 10:38 A | | | 09:51 P A /[id number]/ cc: CHING Sevilla | | | MD ANUJ DAI MD | | + + + + + | Procedure Note | + + | Nilay Lawrence Conversion - 01/25/2019 5:24 PM PDT | | [facility] | | [facility] [address] | | , | | | | [id number]/CARDIOLOGY | | | | Patient Name: CLEMENTINE NUNEZ | | Date of : 1940 | | Medical Record: [id number] | | Account: [id number] | | I/P/ [id number]/ | | | | | | Exam Date/Time: 07/06/2009 03:41 P | | Ordering Provider: CHING DAI | | Order Detail: [id number] / / HCL | | Exam Description: CCL HEART CATH LT RETRO PERC | | | | PROCEDURES | | 1. Selective coronary angiography. | | 2. Left heart catheterization. | | 3. Left ventriculography. | | 4. Right femoral angiogram for possible closure device deployment. | | 5. A 6-Turkmen Mynx closure device deployment at the right arteriotomy | | site. | | | | INDICATIONS | | The patient is a very pleasant 69-year-old lady who was | | recently admitted at [facility] after an episode of chest | | pain. The patient was ruled out for a myocardial infarction and | | discharged and subsequently was advised to have a stress test at [facility] | | [facility] which was significantly abnormal, revealing | | evidence of inferior wall ischemia. The patient was subsequently called | | and advised to return to the emergency room. Cardiac catheterization | | was, therefore, advised in order to assess her coronary anatomy and rule | | out obstructive coronary artery disease with greater certainty. | | | | DESCRIPTION OF PROCEDURE | | The patient was brought to the cardiac catheterization lab on an urgent | | basis. An informed consent was obtained from the patient after | | explaining the risks and benefits of the procedure, as well as | | alternative options. The right groin area was prepped and draped in the | | usual sterile fashion. Local anesthesia was given to the right groin | | with 1% lidocaine. A 6-Turkmen vascular sheath was inserted in the right | | femoral artery using the modified Seldinger technique. A JL4 catheter | | was advanced over the wire under fluoroscopic guidance and engaged | | selectively with the ostium of the left main coronary artery. Contrast | | was injected and multiple angiograms were obtained in different angles. | | The catheter was exchanged over the wire to a JR4 catheter, which was | | engaged selectively with the ostium of the right coronary artery. | | Contrast was injected and multiple angiograms were obtained in different | | angles. The catheter was exchanged over the wire to a pigtail catheter | | that was introduced into the left ventricular cavity. A left | | ventriculogram was obtained in the 30-degree PAINTER projection using 36 mL | | of contrast. The pigtail catheter was then retrieved over the wire and a | | right femoral angiogram was obtained via the side port of the vascular | | sheath. The sheath was pulled, and a 6-Turkmen Mynx closure device was | | deployed at the right arteriotomy site successfully. Hemostasis was | | achieved in the cardiac catheterization lab. The patient was transferred | | out of the catheterization lab in stable condition. | | | | FINDINGS | | | | HEMODYNAMICS | | Aortic pressure was 145/75 with a mean aortic pressure of 107. | | Left ventricular pressure was 145/12 with a left ventricular | | end-diastolic pressure of 12. | | There was no significant transaortic pressure gradient on catheter | | pullback. | | | | CORONARY ANGIOGRAPHY | | 1. Left main had a distal 30% to 40% plaque. | | 2. The LAD had an ostial 60% to 70% stenosis followed by proximal 70% | | stenosis. The rest of the LAD had mild diffuse disease. The junction | | between the mid and the distal segment had 3 tandem 50% plaques. | | 3. The left circumflex artery had a proximal ulcerated 90% stenosis | | right at the takeoff of the first diagonal branch. The first diagonal | | branch was a long artery with a long 85% stenosis extending from the | | ostium to the proximal segment. The fourth obtuse marginal branch was | | a large-caliber vessel with an ostial 90% stenosis. | | 4. The right coronary artery was totally occluded in its proximal | | segment and was filling distally via [id number] collaterals. | | | | LEFT VENTRICULOGRAM | | Left ventriculogram revealed normal left ventricular systolic function | | with ejection fraction of 60% with severe posterobasal hypokinesis. | | | | CONCLUSION | | 1. Coronary artery disease as described above. | | 2. Normal left ventricular systolic function with ejection fraction of | | 60% with posterobasal severe hypokinesis. | | 3. Normal left ventricular end-diastolic pressure. | | | | RECOMMENDATIONS | | CT surgery consultation was requested from Dr. Lozada for consideration | | of coronary artery bypass graft surgery. The patient will be maintained | | on medical therapy with aggressive risk factor modification. | | | | ESTIMATED BLOOD LOSS | | Less than 50 mL. | | | | | | Read by | | ANUJ GALLEGO MD 07/07/2009 09:51 P | | Electronically Signed by | | ANUJ GALLEGO MD 07/24/2009 10:38 A | | | | P | | A | | /[id number]/ | | cc: CHING DAI MD | | ANUJ GALLEGO MD | + + documented in this encounter Visit Diagnoses + + | Diagnosis | + + | Acute myocardial infarction, subendocardial infarction, initial episode of care (HCC) | | Acute myocardial infarction, subendocardial infarction, initial episode of care | + + documented in this encounter"
--- OUTSIDE RECORDS SUMMARY | ~2019-05-12 | XMS | Encounter Summary ---
Demographics + + + | Address | [address] | | | [place] [address] | + + + | Home Phone [...] [place], | | | | | [place] [address] | | + + + + + | Kellen Briones | ECON | [place], [place] | | | | | [address] | | + + + + + Care Team Providers + +------+ + | Care Manufacturing Millwright Name | Role | Phone | + +------+ + | Anna De Guzman PA-C | PCP | | + +------+ + Encounter Details +--------+ + + + + | Date | Type | Department | Care Team | Description | +--------+ + + + + | 03/05/ | Hospital | [facility] | IsakkaydenkaileeTk mathis | | | 2012 | Encounter | MED CTR XRAY [address] | T, [address] | | | | | [place] | [place], [place] | | | | | [place] [address] | [id number] | | | | | [phone] | | | +--------+ + + + [...] | | | | | | [place] [address] | | | | | | [phone] | | | | | | | | +--------+---------+ + + + | 07/30/ | Office | Cardiology | Agata Tinajero DO | | | 2019 | Visit | | [address] | | | | | | [place] | | | | | | [address] | | | | | | | | +--------+---------+ + + + documented as of this encounter Visit Diagnoses Not on filedocumented in this encounter"
--- OUTSIDE RECORDS SUMMARY | ~2019-05-12 | XMS | Encounter Summary ---
Demographics + + + | Address | [address] | | | [place] [address] | + + + | Home Phone [...] + + | Author | [facility] | | | and [place] | + + + | Organization | [facility] | | [...] [place], | | | | | [place] [address] | | + + + + + | Kellen Briones | ECON | [place], [place] | | | | | [address] | | + + + + + Care Team Providers + +------+ + | Care Coil Assembler Name | Role | Phone | [...] + | 05/31/ | Refill | [facility] | Irving Becerril, | Medication Refill | | 2015 | | NEUROSURGERY [address] | DO [address] | | | | | [address] | [address] [place], [place] | | | | | [place], [place] | [id number] | | | | | [address] | | | | | | [phone] | | | +--------+--------+ + + + [...] | | | | | | [place] [address] | | | | | | [phone] | | | | | | | | +--------+---------+ + + + | 07/30/ | Office | Cardiology | Agata Tinajero DO | | | 2019 | Visit | | [address] | | | | | | [place] | | | | | | [address] | | | | | | | | +--------+---------+ + + + documented as of this encounter Visit Diagnoses + + | Diagnosis | + + | S/P cervical spinal fusion - Primary Arthrodesis status | + + documented in this encounter"
--- OUTSIDE RECORDS SUMMARY | ~2019-05-12 | XMS | Encounter Summary ---
Demographics + + + | Address | [address] | | | [place] [address] | + + + | Home Phone [...] [place], | | | | | [place] [address] | | + + + + + | Kellen Briones | ECON | [place], [place] | | | | | [address] | | + + + + + Care Team Providers + +------+ + | Care Senior Linux Unix Administrator Name | Role | Phone | [...] + + | 05/02/ | Telephone | [facility] | Irving Becerril, | Paperwork | | 2016 | | NEUROSURGERY [address] | DO [address] | | | | | [address] | [address] [place], [place] | | | | | [place], [place] | [id number] | | | | | [address] | | | | | | [phone] | | | +--------+ + + + [...] | | | | | | [place] [address] | | | | | | [phone] | | | | | | | | +--------+---------+ + + + | 07/30/ | Office | Cardiology | Agata Tinajero DO | | | 2019 | Visit | | [address] | | | | | | [place] | | | | | | [address] | | | | | | | | +--------+---------+ + + + documented as of this encounter Visit Diagnoses Not on filedocumented in this encounter"
--- OUTSIDE RECORDS SUMMARY | ~2019-05-12 | XMS | Encounter Summary ---
Demographics + + + | Address | [address] | | | [place] [address] | + + + | Home Phone [...] [place], | | | | | [place] [address] | | + + + + + | Kellen Briones | ECON | [place], [place] | | | | | [address] | | + + + + + Care Team Providers + +------+ + | Care Smog Technician Name | Role | Phone | [...] + + | 02/14/ | Telephone | [facility] | Irving Becerril, | Letter | | 2015 | | NEUROSURGERY [address] | DO [address] | | | | | [address] | [address] [place], [place] | | | | | [place], [place] | [address] | | | | | [address] | | | | | | [phone] | | | +--------+ + + + [...] | | | | | [place] [address] | | | | | | [phone] | | | | | | | | +--------+---------+ + + + | 07/30/ | Office | Cardiology | Agata Tinajero DO | | | 2019 | Visit | | [address] | | | | | | [place] | | | | | | [address] | | | | | | | | +--------+---------+ + + + documented as of this encounter Visit Diagnoses Not on filedocumented in this encounter"
--- OUTSIDE RECORDS SUMMARY | ~2019-05-12 | XMS | Encounter Summary ---
Demographics + + + | Address | [address] | | | [place] [address] | + + + | Home Phone [...] [place], | | | | | [place] [address] | | + + + + + | Kellen Briones | ECON | [place], [place] | | | | | [address] | | + + + + + Care Team Providers + +------+ + | Care Highway Traffic Control Technician Name | Role | Phone | [...] Thoracic or | [place], | [address] | | | | | lumbosacral | Tk Monreal MD | [place], | | | | | neuritis or | [address] | [place] | | | | | | [place] | [address] | | | | | radiculitis, | [place], [place] | Phone: | | | | | unspecified | [address] | [phone] | | | | | Procedures | Phone: | Fax: | | | | | [place] INJECT | [phone] | [phone] | | | | | ANES/STEROID | Fax: | | | | | | FORAMEN | [phone] | | | | | | LUMBAR/SACRA [...] + + | 02/02/ | Hospital | [facility] | [place], | Spinal stenosis of | | 2013 | Encounter | MED CTR XRAY [address] | AYA[address] | lumbar region with | | | | [place] | [facility], | [id number] | | | | [place] [address] | [place] [address] | level moderately | | | | [phone] | [phone] | severe (Primary Dx); | | | | | | Spondylolisthesis | | | | | Tk Ann, | of lumbar region; | | | | | MD [address] | Lumbar radiculopathy | | | | | [place] | | | | | | [id number] | | | | | | | | | | | | Parking AttendantJordan | | +--------+ + + + + [...] | 2019 | Visit | | [address] | | | | | | [place] | | | | | | [place] [address] | | | | | | [phone] | | | | | | | | +--------+---------+ + + + | 07/30/ | Office | Cardiology | Agata Tinajero DO | | | 2019 | Visit | | [address] | | | | | | [place] | | | | | | [address] | | | | | | | [...] | | TRANSFORAMINAL | | PDT | [id number] | results section. | | | | [...] radiculopathy ICD-9 Code 724.4 Clementine Phoenix | [facility] | | Annabella presents to the [...] | + + + + + | [address] | [address] | [place] | [phone] | | [facility] | | [address] | | | - IMAGING | | | | + + + + + documented in this encounter Visit Diagnoses + + | Diagnosis | + + | Spinal stenosis of lumbar region with zhlrwlidkjdwc-D5-O8 level moderately severe - | | Primary [...]
--- OUTSIDE RECORDS SUMMARY | ~2019-05-12 | XMS | Encounter Summary ---
Demographics + + + | Address | [address] | | | [place] [address] | + + + | Home Phone | | + + + | Preferred Language | Unknown | + + + | Marital Status | | + + + | Synagogue Affiliation | 1041 | + + + | Race | Unknown | + + + | Ethnic Group | Unknown | + + + Author + + + | Author | [facility] | | | and [place] | + + + | Organization | [facility] | | | and [place] | + + + | Address | Unknown | + + + | Phone | Unavailable | + + + Support + + + + + | Name | Relationship | Address | Phone | + + + + + | Lucy Winchester | ECON | [place], | | | | | [place] [address] | | + + + + + | Kellen Briones | ECON | [place] | | | | | [address] | | + + + + + Care Team Providers + +------+ + | Care Wood Grainer Name | Role | Phone | + [...] | | | | [place] | [phone] | | | | | [address] | | | | | | [phone] | | | +--------+ + + + [...] | | | | | | [place] [address] | | | | | | [phone] | | | | | | | | +--------+---------+ + + + | 07/30/ | Office | Cardiology | Agata Tinajero DO | | | 2019 | Visit | | [address] | | | | | | [place] | | | | | | [address] | | | | | | | [...]
--- OUTSIDE RECORDS SUMMARY | ~2019-05-12 | XMS | Encounter Summary ---
Demographics + + + | Address | [address] | | | [place] [address] | + + + | Home Phone [...] [place], | | | | | [place] [address] | | + + + + + | Kellen Briones | ECON | [place], [place] | | | | | [address] | | + + + + + Care Team Providers + +------+ + | Care Outsole Tacker Name | Role | Phone | + [...] | Lumbar | Marissa, | [address] | | | | | radiculopath | Tk Monreal MD | [place], | | | | | y | [address] | [place] | | | | | Procedures | [place] | [address] | | | | | [place] INJECT | [facility], [place] | Phone: | | | | | ANES/STEROID | [address] | [phone] | | | | | FORAMEN | Phone: | Fax: | | | | | LUMBAR/SACRA | [phone] | [phone] | | | | | L W IMG | Fax: | | | | | | GUIDE ,1 | [phone] | | | | | | LEVEL [place] | | | | | | | [...] + + | 07/05/ | Hospital | [facility] | Bogdathacz, | Lumbar | | 2016 | Encounter | MED CTR XRAY [address] | [address]YA[address] | radiculopathy; | | | | [place] | [facility], | Spinal stenosis of | | | | [place] [address] | [place] [address] | lumbar region with | | | | [phone] | [phone] | [id number]-I9-R5 | | | | | | level moderately | | | | | Melting Operator[place] | severe | +--------+ + + + [...] | | | | | | [place] [address] | | | | | | [phone] | | | | | | | | +--------+---------+ + + + | 07/30/ | Office | Cardiology | Agata Tinajero DO | | | 2019 | Visit | | [address] | | | | | | [place] | | | | | | [address] | | | | | | | [...] with | | | | | | [id number]-[id number] | | | | | | level [...] radiculopathy ICD-10 Code M54.16 Clementine Phoenix | [facility] | | Annabella presents to the fluoroscopy suite for [facility] | | fluoroscopically-guided bilateral L5-S1 transforaminal [...] [address] | [place] | [phone] | | [facility] | | [address] | | | - IMAGING | | | | + + + + + documented in this encounter Visit Diagnoses + + | Diagnosis | + + | Lumbar radiculopathy Thoracic or lumbosacral neuritis or radiculitis, unspecified | + + | Spinal stenosis of lumbar region with bszsrfwoutlrc-A7-L9 level moderately severe | | Spinal stenosis, [...]
--- OUTSIDE RECORDS SUMMARY | ~2019-05-12 | XMS | Encounter Summary ---
Demographics + + + | Address | [address] | | | [place] [address] | + + + | Home Phone [...] [place], | | | | | [place] [address] | | + + + + + | Kellen Briones | ECON | [place], [place] | | | | | [address] | | + + + + + Care Team Providers + +------+ + | Care Irrigation Engineer Name | Role | Phone | [...] | +--------+ + + + + | 08/01/ | Telephone | [facility] | Ramon Real | Other | | 2012 | | [address] | MD Idris [address] | | | | | [address] | [place], [place] | | | | | [place], [place] | [address] | | | | | [address] | [phone] | | | | | [phone] | | | +--------+ + + + [...] | | | | | | [place] [address] | | | | | | [phone] | | | | | | | | +--------+---------+ + + + | 07/30/ | Office | Cardiology | Agata Tinajero DO | | | 2019 | Visit | | [address] | | | | | | [place] | | | | | | [address] | | | | | | | | +--------+---------+ + + + documented as of this encounter Visit Diagnoses Not on filedocumented in this encounter"
--- OUTSIDE RECORDS SUMMARY | ~2019-05-12 | XMS | Encounter Summary ---
Demographics + + + | Address | [address] | | | [place] [address] | + + + | Home Phone [...] [place], | | | | | [place] [address] | | + + + + + | Kellen Briones | ECON | [place] | | | | | [address] | | + + + + + Care Team Providers + +------+ + | Care Community Placement Worker Name | Role | Phone | + +------+ + | Barb Marte | PCP | | + +------+ + Encounter Details +--------+ + + + + | Date | Type | Department | Care Team | Description | +--------+ + + + + | 01/31/ | Hospital | [facility] | Conversion | Diagnosis unknown | | 2018 | Encounter | CONVERSION [address] | Transaction, | | | | | [address] | Provider Unknown | | | | | [place] | [phone] | | | | | [address] | | | | | | [phone] | | | +--------+ + + + [...] | | | | | | [place] [address] | | | | | | [phone] | | | | | | | | +--------+---------+ + + + | 07/30/ | Office | Cardiology | Agata Tinajero DO | | | 2019 | Visit | | [address] | | | | | | [place] | | | | | | [address] | | | | | | | [...]
--- OUTSIDE RECORDS SUMMARY | ~2019-05-12 | XMS | Encounter Summary ---
Demographics + + + | Address | [address] | | | [place] [address] | + + + | Home Phone [...] [place], | | | | | [place] [address] | | + + + + + | Kellen Briones | ECON | [place], [place] | | | | | [address] | | + + + + + Care Team Providers + +------+ + | Care Coremaker Supervisor Name | Role | Phone | [...] | side; Facet | | | | [place], | [address] [place], | arthritis of | | | | [place] [address] | [place] [address] | cervical region | | | | [phone] | [phone] | (HCC); DDD | | | | [...] | | | | | | [place] [address] | | | | | | [phone] | | | | | | | | +--------+---------+ + + + | 07/30/ | Office | Cardiology | Agata Tinajero DO | | | 2019 | Visit | | [address] | | | | | | [place] | | | | | | [address] | | | | | | | [...]
--- OUTSIDE RECORDS SUMMARY | ~2019-05-12 | XMS | Encounter Summary ---
Demographics + + + | Address | [address] | | | [place] [address] | + + + | Home Phone [...] [place], | | | | | [place] [address] | | + + + + + | Kellen Briones | ECON | [place], [place] | | | | | [address] | | + + + + + Care Team Providers + +------+ + | Care Belt Press Operator Name | Role | Phone [...] + + | 02/14/ | Telephone | [facility] | Irving Becerril, | Letter | | 2015 | | NEUROSURGERY [address] | DO [address] | | | | | [address] | [address] [place], [place] | | | | | [place], [place] | [address] | | | | | [address] | | | | | | [phone] | | | +--------+ + + + [...] | | | | | [place] [address] | | | | | | [phone] | | | | | | | | +--------+---------+ + + + | 07/30/ | Office | Cardiology | Agata Tinajero DO | | | 2019 | Visit | | [address] | | | | | | [place] | | | | | | [address] | | | | | | | | +--------+---------+ + + + documented as of this encounter Visit Diagnoses Not on filedocumented in this encounter"
--- OUTSIDE RECORDS SUMMARY | ~2019-05-12 | XMS | Encounter Summary ---
Demographics + + + | Address | [address] | | | [place] [address] | + + + | Home Phone [...] [place], | | | | | [place] [address] | | + + + + + | Kellen Briones | ECON | [place] | | | | | [address] | | + + + + + Care Team Providers + +------+ + | Care Varnish Maker Name | Role | Phone | + +------+ + | Barb Marte | PCP | | + +------+ + Encounter Details +--------+ + + + + | Date | Type | Department | Care Team | Description | +--------+ + + + + | 01/31/ | Hospital | [facility] | Conversion | Pain | | 2018 | Encounter | CONVERSION [address] | Transaction, | | | | | [address] | Provider Unknown | | | | | [place], [place] | [phone] | | | | | [address] | | | | | | [phone] | | | +--------+ + + + [...] | | | | | | [place] [address] | | | | | | [phone] | | | | | | | | +--------+---------+ + + + | 07/30/ | Office | Cardiology | Agata Tinajero DO | | | 2019 | Visit | | [address] | | | | | | [place] | | | | | | [address] | | | | | | | [...]
--- OUTSIDE RECORDS SUMMARY | ~2019-05-12 | XMS | Encounter Summary ---
Demographics + + + | Address | [address] | | | [place] [address] | + + + | Home Phone [...] [place], | | | | | [place] [address] | | + + + + + | Kellen Briones | ECON | [place], [place] | | | | | [address] | | + + + + + Care Team Providers + +------+ + | Care Patient Accounts Coordinator Name | Role | Phone | + +------+ + | Anna De Guzman PA-C | PCP | | + +------+ + Encounter Details +--------+ + + + + | Date | Type | Department | Care Team | Description | +--------+ + + + + | 04/15/ | Hospital | [facility] | IsakkaydenkaileeTk mathis | | | 2012 | Encounter | MED CTR XRAY [address] | T, [address] | | | | | [place] | [place], [place] | | | | | [place] [address] | [address] | | | | | [phone] | | | +--------+ + + + [...] | | | | | | [place] [address] | | | | | | [phone] | | | | | | | | +--------+---------+ + + + | 07/30/ | Office | Cardiology | Agata Tinajero DO | | | 2019 | Visit | | [address] | | | | | | [place] | | | | | | [address] | | | | | | | [...] Performed At | + + + | [facility] | [place] | | Department [facility] | [facility] | | [ rep [address]] [ rep [facility] | | [facility]] Signed | - IMAGING | | | | | Patient Name: CLEMENTINE NUNEZ Physician: | | | : 1940 Age: 72 Sex: F Unit #: [id number] | | | Exam Date: 04/15/13 Location: [facility] | | | Report #: [id number] Page: | | | %(RAD)RES..mtdd.print.filter("pg") of %(RAD) | | | RES..mtdd.print.filter("tpg") | | | | | | Accession Number: [id number] | | | EPIDURAL STEROID INJECTION, 04/15/2013 [...] Transcribed | | | Date/Time: 04/17/2013 14:04 Master Tax Advisor: | | | <<Signature on File>> | | | Tk Monreal | | | MD Marissa04/24/13 1211 <Electronically signed by Tk Monreal | | | Marissa ALVARADO> Tk Ann MD 04/17/13 1256 | | | Master Tax Advisor: [employer] [id number]/15/13 1404 | | | | | + + + + + + + + | Performing | Address | City/State/Zipcode | Phone Number | | Organization | | | | + + + + + | [address] | [address] | [place] | [phone] | | [facility] | | [address] | | | - IMAGING | | | | + + + + + documented in this encounter Visit Diagnoses Not on filedocumented in this encounter
--- OUTSIDE RECORDS SUMMARY | ~2019-05-12 | XMS | Encounter Summary ---
Demographics + + + | Address | [address] | | | [place] [address] | + + + | Home Phone [...] [place], | | | | | [place] [address] | | + + + + + | Kellen Briones | ECON | [place], [place] | | | | | [address] | | + + + + + Care Team Providers + +------+ + | Care Parts Clerk Plant Maintenance Name | Role | Phone | [...] + + | 08/27/ | Telephone | [facility] | Ramon Real | Other | | 2012 | | [address] | MD Idris [address] | | | | | [address] | St [place], [place] | | | | | [place], [place] | [address] | | | | | [address] | [phone] | | | | | [phone] | | | +--------+ + + + [...] [place] | | | | | | [place] [address] | | | | | | [phone] | | | | | | | | +--------+---------+ + + + | 07/30/ | Office | Cardiology | Agata Tinajero DO | | | 2019 | Visit | | [address] | | | | | | [place] | | | | | | [address] | | | | | | | | +--------+---------+ + + + documented as of this encounter Visit Diagnoses Not on filedocumented in this encounter"
--- OUTSIDE RECORDS SUMMARY | ~2019-05-12 | XMS | Encounter Summary ---
Demographics + + + | Address | [address] | | | [place] [address] | + + + | Home Phone [...] [place], | | | | | [place] [address] | | + + + + + | Kellen Briones | ECON | [place] | | | | | [address] | | + + + + + Care Team Providers + +------+ + | Care Strategic Development Manager Name | Role | Phone | [...] | | | | [place] | [phone] | | | | | [address] | | | | | | [phone] | | | +--------+ + + + [...] 05/14/ | Office | Orthopedic Surgery | Mosnter White MD | | | 2018 | Visit | | [address] | | | | | | [place], | | | | | | [place] [address] | | | | | | [phone] | | | | | | | | +--------+---------+ + + + | 07/30/ | Office | Cardiology | Agata Tinajero DO | | | 2019 | Visit | | [address] | | | | | | [place] | | | | | | [address] | | | | | | | [...]
--- OUTSIDE RECORDS SUMMARY | ~2019-05-12 | XMS | Encounter Summary ---
Demographics + + + | Address | [address] | | | [place] [address] | + + + | Home Phone [...] [place], | | | | | [place] [address] | | + + + + + | Kellen Briones | ECON | [place], [place] | | | | | [address] | | + + + + + Care Team Providers + +------+ + | Care Specialty Department Supervisor Name | Role | Phone | [...] + + | 10/13/ | Telephone | [facility] | Tk Ann | Appointment | | 2012 | | PHYSIATRY [address] | T, [address] | | | | | [place], | [place], [place] | | | | | [place] [address] | [address] | | | | | [phone] | | | +--------+ + + + [...] | | | | | | [place] [address] | | | | | | [phone] | | | | | | | | +--------+---------+ + + + | 07/30/ | Office | Cardiology | Agata Tinajero DO | | | 2019 | Visit | | [address] | | | | | | [place] | | | | | | [address] | | | | | | | | +--------+---------+ + + + documented as of this encounter Visit Diagnoses Not on filedocumented in this encounter"
--- OUTSIDE RECORDS SUMMARY | ~2019-05-12 | XMS | Encounter Summary ---
Demographics + + + | Address | [address] | | | [place] [address] | + + + | Home Phone [...] + | Lucy Winchester | ECON | [place], | | | | | [place] [address] | | + + + + + | Kellen Briones | ECON | [place], [place] | | | | | [address] | | + + + + + Care Team Providers + +------+ + | Care Sustainable Agriculture Faculty Name | Role | Phone | + [...] + | 04/06/ | Telephone | [facility] | Irving Becerril, | Other (Post op call) | | 2015 | | NEUROSURGERY [address] | DO [address] | | | | | [address] [facility] [address] | [address] [place], [place] | | | | | [place], [place] | [id number] | | | | | [address] | | | | | | [phone] | | | +--------+ + + + [...] | | | | | | [place] [address] | | | | | | [phone] | | | | | | | | +--------+---------+ + + + | 07/30/ | Office | Cardiology | Agata Tinajero DO | | | 2019 | Visit | | [address] | | | | | | [place] | | | | | | [address] | | | | | | | | +--------+---------+ + + + documented as of this encounter Visit Diagnoses Not on filedocumented in this encounter"
--- OUTSIDE RECORDS SUMMARY | ~2019-05-12 | XMS | Encounter Summary ---
Demographics + + + | Address | [address] | | | [place] [address] | + + + | Home Phone [...] [place], | | | | | [place] [address] | | + + + + + | Kellen Briones | ECON | [place], [place] | | | | | [address] | | + + + + + Care Team Providers + +------+ + | Care Court Supervisor Name | Role | Phone | [...] | Lumbar | Marissa, | [address] | | | | | radiculopath | Tk Monreal MD | [place], | | | | | y | [address] | [place] | | | | | Procedures | [place] | [address] | | | | | [place] INJECT | [facility] [place] | Phone: | | | | | ANES/STEROID | [address] | [phone] | | | | | FORAMEN | Phone: | Fax: | | | | | LUMBAR/SACRA | [phone] | [phone] | | | | | L [address] IMG | Fax: | | | | | | GUIDE ,1 | [phone] | | | | | | LEVEL [place] | | | | | | | [...] + + | 11/15/ | Hospital | [facility] | [place], | Spondylolisthesis of | | 2015 | Encounter | MED [facility] XRAY [address] | [address] | lumbar region; | | | | [place] | [facility], | Lumbar | | | | [place] [address] | [place] [address] | radiculopathy; | | | | [phone] | [phone] | Spinal stenosis of | | | | | | lumbar region with | | | | | [employer] | [id number] | | | | | | level [...] | 2018 | Visit | | [address] | | | | | | [place] | | | | | | [place] [address] | | | | | | [phone] | | | | | | | | +--------+---------+ + + + | 07/30/ | Office | Cardiology | Agata Tinajero DO | | | 2020 | Visit | | [address] | | | | | | [place] | | | | | | [address] | | | | | | | [...] with | | | | | | [id number] | | | | | | level [...] | Diagnosis: Lumbar radiculopathy ICD-10 Code M54.16 Elizabeth | [facility] | | Lizett Winchester presents to the fluoroscopy suite for | [facility] | | fluoroscopically-guided bilateral L5-S1 transforaminal epidural [...] [address] | [place] | [phone] | | [facility] | | [id number] | | | - IMAGING | | | | + + + + + documented in this encounter Visit Diagnoses + + | Diagnosis | + + | Spondylolisthesis of lumbar region Acquired spondylolisthesis | + + | Lumbar radiculopathy Thoracic or lumbosacral neuritis or radiculitis, unspecified | + + | Spinal stenosis of lumbar region with [id number] level moderately severe | | Spinal stenosis, [...]
--- OUTSIDE RECORDS SUMMARY | ~2019-05-12 | XMS | Encounter Summary ---
Demographics + + + | Address | [address] | | | [place] [address] | + + + | Home Phone [...] [place], | | | | | [place] [address] | | + + + + + | Kellen Briones | ECON | [place], [place] | | | | | [address] | | + + + + + Care Team Providers + +------+ + | Care Senior Government Program Analyst Name | Role | Phone | [...] + + | 04/13/ | Telephone | [facility] | Irving Becerril, | Other (Return to | | 2015 | | NEUROSURGERY [address] | DO [address] | work ) | | | | [address] [facility] | [address] [place], [place] | | | | | [place], [place] | [id number] | | | | | [address] | | | | | | [phone] | | | +--------+ + + + [...] | | | | | | [place] [address] | | | | | | [phone] | | | | | | | | +--------+---------+ + + + | 07/30/ | Office | Cardiology | Agata Tinajero DO | | | 2019 | Visit | | [address] | | | | | | [place] | | | | | | [address] | | | | | | | | +--------+---------+ + + + documented as of this encounter Visit Diagnoses Not on filedocumented in this encounter"
--- OUTSIDE RECORDS SUMMARY | ~2019-05-12 | XMS | Encounter Summary ---
Demographics + + + | Address | [address] | | | [place] [address] | + + + | Home Phone [...] [place], | | | | | [place] [address] | | + + + + + | Kellen Briones | ECON | [place], [place] | | | | | [address] | | + + + + + Care Team Providers + +------+ + | Care Public Transit Bus Driver Name | Role | Phone | [...] + | 01/23/ | Telephone | [facility] | Mono Diaz, | Medication Question | | 2017 | | PHYSIATRY [address] | PA-C [address] | | | | | [place], | [address] [place] | | | | | [place] [address] | [place] [address] | | | | | [phone] | [phone] | | | | | | | [...] | | | | | | [place] [address] | | | | | | [phone] | | | | | | | | +--------+---------+ + + + | 07/30/ | Office | Cardiology | Agata Tinajero DO | | | 2019 | Visit | | [address] | | | | | | [place] | | | | | | [address] | | | | | | | | +--------+---------+ + + + documented as of this encounter Visit Diagnoses Not on filedocumented in this encounter"
--- OUTSIDE RECORDS SUMMARY | ~2019-05-12 | XMS | Encounter Summary ---
Demographics + + + | Address | [address] | | | [place] [address] | + + + | Home Phone [...] [place], | | | | | [place] [address] | | + + + + + | Kellen Briones | ECON | [place], [place] | | | | | [address] | | + + + + + Care Team Providers + +------+ + | Care Dredgemaster Name | Role | Phone | + +------+ + | Anna De Guzman PA-C | PCP | | + +------+ + Encounter Details +--------+ + + + + | Date | Type | Department | Care Team | Description | +--------+ + + + + | 06/05/ | Abstract | [facility] [place] | [facility] | | | 2012 | | [place] [address] | FMD [address] [place] | | | | | [address] | [place], [place] | | | | | [place], [place] | [address] | | | | | [address] | [phone] | | | | | [phone] | | | +--------+ + + + [...] | 2020 | Visit | | [address] | | | | | | [place], | | | | | | [place] [address] | | | | | | [phone] | | | | | | | | +--------+---------+ + + + | 07/30/ | Office | Cardiology | Agata Tinajero DO | | | 2019 | Visit | | [address] | | | | | | [place] | | | | | | [address] | | | | | | | | +--------+---------+ + + + documented as of this encounter Visit Diagnoses Not on filedocumented in this encounter"
--- OUTSIDE RECORDS SUMMARY | ~2019-05-12 | XMS | Encounter Summary ---
Demographics + + + | Address | [address] | | | [place] [address] | + + + | Home Phone [...] [place], | | | | | [place] [address] | | + + + + + | Kellen Briones | ECON | [place], [place] | | | | | [address] | | + + + + + Care Team Providers + +------+ + | Care Director Of It Operations Name | Role | Phone | + [...] | Cervical | Ramon Steinberg, | Tk Grullon MD | | | Required | Rehabilitatio | stenosis of | [address] | [address] | | | | n | spinal canal | [address] | [address] [place] | | | | | | [place], | [place], [place] | | | | | Spondylolist | [place] [address] | [address] Phone: | | | | | hesis of | Phone: | [phone] | | | | | cervical | [phone] | Fax: | | | | | region | [phone] Fax: | [phone] | | | | | Right hip | | | | | | | pain | [phone] | | | | | | Trochanteric [...] + + | 07/23/ | Office | [facility] [place] | Tk Ann | Lumbar radiculopathy | | 2013 | Visit | PHYSIATRY [address] | TMD [address] | (Primary Dx); DDD | | | | [address], | [place] | (degenerative disc | | | | [place] [address] | [address] | disease), lumbar; | | | | [phone] | | 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 Please also provide a tour driver to take you home on the [...] Stroke Syncope and collapse Cancer Breast Hyperlipidemia [place] (myocardial infarction) GERD (gastroesophageal reflux disease) Asthma [...] 4. Spinal stenosis of lumbar region with xlkqpzklcxqxy-X5-E9 level moderately severe 5. Facet arthritis of [...] in the office. I recommended that clara grullon go see Dr. Patrick Gaffney for these issues. This may be atypical seizure activity or possibly a cardiovascular issue. Reportedly she has already seen a shoulder sawyer and nothing abnormal w as found. She [...] | 2019 | Visit | | [address] | | | | | | [place], | | | | | | [place] [address] | | | | | | [phone] | | | | | | | | +--------+---------+ + + + | 07/30/ | Office | Cardiology | Agata Tinajero DO | | | 2019 | Visit | | [address] | | | | | | [place] | | | | | | [address] | | | | | | | [...] | Spinal stenosis of lumbar region with urqgkoifokdnx-P7-N3 level moderately severe | | Spinal stenosis, [...]
--- OUTSIDE RECORDS SUMMARY | ~2019-05-12 | XMS | Encounter Summary ---
Demographics + + + | Address | [address] | | | [place] [address] | + + + | Home Phone [...] [place], | | | | | [place] [address] | | + + + + + | Kellen Briones | ECON | [place], [place] | | | | | [address] | | + + + + + Care Team Providers + +------+ + | Care Senior Technical Support Analyst Name | Role | Phone [...] | | | Procedures | [address] | [address]uc | | | | | NM Nuclear | [address] | Med [address] | | | | | Stress Test | [address] | [address] | | | | | (Vasodilator | [place], [place] | [place], [place] | | | | | ) | [address] | [address] | | | | | | Phone: | Phone: | | | | | | [phone] | [phone] | | | | | | Fax: | Fax: | | | | | | [phone] | [phone] | +--------+--------+ + + + + Encounter Details +--------+ + + + + | Date | Type | Department | Care Team | Description | +--------+ + + + + | 02/17/ | Hospital | [facility] | TinajeroFlorindayDO | | | 2019 | Encounter | CARDIOLOGY [place] | [address] | | | | | NUC MED [address] | [address] [place], [place] | | | | | [address] | [address] | | | | | [place], [place] | | | | | | [address] | | | | | | [phone] | | | +--------+ + + + [...] | 2020 | Visit | | [address] | | | | | | [place] | | | | | | [place] [address] | | | | | | [phone] | | | | | | | | +--------+---------+ + + + | 07/30/ | Office | Cardiology | Agata Tinajero DO | | | 2019 | Visit | | [address] | | | | | | [place] | | | | | | [address] | | | | | | | [...]
--- OUTSIDE RECORDS SUMMARY | ~2019-05-12 | XMS | Encounter Summary ---
Demographics + + + | Address | [address] | | | [place] [address] | + + + | Home Phone [...] [place], | | | | | [place] [address] | | + + + + + | Kellen Briones | ECON | [place], [place] | | | | | [address] | | + + + + + Care Team Providers + +------+ + | Care Road Advisor Name | Role | Phone | [...] [address] | [address] [place], [place] | | | | | [place], [place] | [id number] | | | | | [address] | | | | | | [phone] | | | +--------+ + + + [...] | | | | | | [place] [address] | | | | | | [phone] | | | | | | | | +--------+---------+ + + + | 07/30/ | Office | Cardiology | Agata Tinajero DO | | | 2019 | Visit | | [address] | | | | | | [place] | | | | | | [address] | | | | | | | [...] [address] | [place] | [phone] | | [facility] | | [address] | | | - IMAGING | | | | + + + + + documented in this encounter Visit Diagnoses + + | Diagnosis | + + | Neck pain - Primary Cervicalgia | + + documented in this encounter"
--- OUTSIDE RECORDS SUMMARY | ~2019-05-12 | XMS | Encounter Summary ---
Demographics + + + | Address | [address] | | | [place] [address] | + + + | Home Phone [...] [place], | | | | | [place] [address] | | + + + + + | Kellen Briones | ECON | [place], [place] | | | | | [address] | | + + + + + Care Team Providers + +------+ + | Care Cutting And Creasing Press Operator Name | Role | Phone | + +------+ + | Anna De Guzman PA-C | PCP | | + +------+ + Encounter Details +--------+ + + + + | Date | Type | Department | Care Team | Description | +--------+ + + + + | 10/21/ | Hospital | [facility] | IsakkaydenkaileeTk mathis | | | 2012 | Encounter | MED CTR XRAY [address] | T, [address] | | | | | [place] | [place], [place] | | | | | [place] [address] | [address] | | | | | [phone] | | | +--------+ + + + [...] | 2019 | Visit | | [address] | | | | | | [place] | | | | | | [place] [address] | | | | | | [phone] | | | | | | | | +--------+---------+ + + + | 07/30/ | Office | Cardiology | Agata Tinajero DO | | | 2019 | Visit | | [address] | | | | | | [place] | | | | | | [address] | | | | | | | [...] Performed At | + + + | [facility] | [place] | | Department [address] [place] [address] | [facility] | | [ rep ct street1[address]] [ rep [facility] | | st zip] Signed | - IMAGING | | | | | Patient Name: CLEMENTINE NUNEZ Physician: | | | WILFREDO. : 1940 Age: 72 Sex: F Unit #: [id number] | | | Exam Date: 10/21/12 Location: [facility] | | | Report #: [id number] Page: | | | %(RAD)RES..mtdd.print.filter("pg") of %(RAD) | | | RES..mtdd.print.filter("tpg") | | | | | | Accession Number: [id number] | | | PROCEDURE NOTE EPIDURAL STEROID [...] | | | Transcribed Date/Time: 10/21/2012 18:52 Color Finisher: | | | <<Signature on File>> | | | Tk Monreal | | | MD Marissa11/07/12 3012 <Electronically signed by Tk Monreal | | | Marissa ALVARADO> Tk Ann MD 10/21/12 2460 | | | Color Finisher: Therapeutic Monitoring Serviceskristina Neokuyjeetlxx27/21/13 2616 | | | | | + + + + + + + + | Performing | Address | City/State/Zipcode | Phone Number | | Organization | | | | + + + + + | TIMOTHY CARLOS. | [address] | [place] | [phone] | | [facility] | | [address] | | | - IMAGING | | | | + + + + + documented in this encounter Visit Diagnoses Not on filedocumented in this encounter
--- OUTSIDE RECORDS SUMMARY | ~2019-05-12 | XMS | Encounter Summary ---
Demographics + + + | Address | [address] | | | [place] [address] | + + + | Home Phone [...] [place], | | | | | [place] [address] | | + + + + + | Kellen Briones | ECON | [place], [place] | | | | | [address] | | + + + + + Care Team Providers + +------+ + | Care Flight Test Engineer Name | Role | Phone [...] + + | 10/08/ | Telephone | [facility] | Tk Ann | Other (Schedule | | 2012 | | PHYSIATRY [address] | T, [address] | injection) | | | | [place], | [place], [place] | | | | | [place] [address] | [address] | | | | | [phone] | | | +--------+ + + + [...] | | | | | | [place] [address] | | | | | | [phone] | | | | | | | | +--------+---------+ + + + | 07/30/ | Office | Cardiology | Agata Tinajero DO | | | 2019 | Visit | | [address] | | | | | | [place] | | | | | | [address] | | | | | | | | +--------+---------+ + + + documented as of this encounter Visit Diagnoses Not on filedocumented in this encounter"
--- OUTSIDE RECORDS SUMMARY | ~2019-05-12 | XMS | Encounter Summary ---
Demographics + + + | Address | [address] | | | [place] [address] | + + + | Home Phone [...] [place], | | | | | [place] [address] | | + + + + + | Kellen Briones | ECON | [place] | | | | | [address] | | + + + + + Care Team Providers + +------+ + | Care Installation Technician Name | Role | Phone | [...] + + | 03/19/ | Office | [facility] | Mono Diaz, | Lumbar radiculopathy | | 2018 | Visit | PHYSIATRY [address] | PA-C [address] | (Primary Dx) | | | | [place], | [address] [place] | | | | | [place] [address] | [place] [address] | | | | | [phone] | [phone] | | | | | | | [...] of the procedure you must provide a bottom hoop driver to take you home. For all [...] press against a nerve. Date Last Reviewed: 08/01/201719997238-8341 [employer]. [address] [place] [address]. All righ ts reserved. This information is not intended as a substitute for professional medical care. Always follow your healthcare professional's instructions. documented in this encounter Progress Notes Mono iDaz PA-C - 03/19/2018 9:20 AM PDTFormatting of [...] and narcotic medications use; she currently uses [place], Flexeril and ga bapentin. She is taking [...] has no apparent deficits with short or longterm memory. 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 Unfortunately Clementine Winchester continues to [...] | 2018 | Visit | | [address] | | | | | | [place], | | | | | | [place] [address] | | | | | | [phone] | | | | | | | | +--------+---------+ + + + | 07/30/ | Office | Cardiology | Agata Tinajero DO | | | 2019 | Visit | | [address] | | | | | | [place] | | | | | | [address] | | | | | | | [...]
--- OUTSIDE RECORDS SUMMARY | ~2019-05-12 | XMS | Encounter Summary ---
Demographics + + + | Address | [address] | | | [place] [address] | + + + | Home Phone [...] [place], | | | | | [place] [address] | | + + + + + | Kellen Briones | ECON | [place], [place] | | | | | [address] | | + + + + + Care Team Providers + +------+ + | Care Appeals Reviewer Veteran Name | Role | Phone | + [...] + + | 09/30/ | [facility] | [facility] [place] | [place], | DDD (degenerative | | 2014 | Visit | PHYSIATRY [address] | [address] [address] | disc disease), | | | | [place], | [address] [place], | lumbar (Primary Dx); | | | | [place] [address] | [place] [address] | Spinal stenosis of | | | | [phone] | [phone] | lumbar region with | | | | | | qmgjxkcltonmr-C1-Z7 | | | | | | level [...] of the procedure you must provide a river driver to take you home. For all [...] spinal stenosis. Her last injection was in [facility] this year. She reports that [...] and narcotic medications use; she currently uses [place], Flexeril and ga bapentin. Patient's medications, allergies, [...] has no apparent deficits with short or lobsterman memory. She has appropriate fund of knowledge [...] 2. Spinal stenosis of lumbar region with yoapbwkekmkyp-C2-H5 level moderately severe 3. Lumbar radiculopathy 4. [...] be performed by me in the [facility]. 2. I did not make [...] | 2018 | Visit | | [address] | | | | | | [place], | | | | | | [place] [address] | | | | | | [phone] | | | | | | | | +--------+---------+ + + + | 07/30/ | Office | Cardiology | Agata Tinajero DO | | 2019 | Visit | | [address] | | | | | | [place], [place] | | | | | | [address] | | | | | | | [...] ICD-9 Code 724.4 Clementine [place] | [facility] | | Annabella presents to the fluoroscopy suite for fluoroscopically-guided [facility] | | bilateral L5-S1 transforaminal epidural [...] [address] | [place] | [phone] | | [facility] | | [address] | | | - IMAGING | | | | + + + + + documented in this encounter Visit Diagnoses + + | Diagnosis | + + | DDD (degenerative disc disease), lumbar - Primary Degeneration of lumbar or | | lumbosacral intervertebral disc | + + | Spinal stenosis of lumbar region with bfcllflruxlqv-G3-A3 level moderately severe | | Spinal stenosis, [...]
--- OUTSIDE RECORDS SUMMARY | ~2019-05-12 | XMS | Encounter Summary ---
Demographics + + + | Address | [address] | | | [place] [address] | + + + | Home Phone [...] [place], | | | | | [place] [address] | | + + + + + | Kellen Briones | ECON | [place], [place] | | | | | [address] | | + + + + + Care Team Providers + +------+ + | Care Pigment Supplier Name | Role | Phone | + [...] + + | 08/14/ | Telephone | [facility] | Patrick Gaffney MD [address] | Other | | 2012 | | NEUROLOGY [place] | [facility] | | | | | [address] [facility], | [address] [place], | | | | | [address] [facility] | [place] [address] | | | | | [place] [address] | [phone] | | | | | [phone] | | | +--------+ + + + [...] | | | | | | [place] [address] | | | | | | [phone] | | | | | | | | +--------+---------+ + + + | 07/30/ | Office | Cardiology | Agata Tinajero DO | | | 2019 | Visit | | [address] | | | | | | [place] | | | | | | [address] | | | | | | | | +--------+---------+ + + + documented as of this encounter Visit Diagnoses Not on filedocumented in this encounter"
--- OUTSIDE RECORDS SUMMARY | ~2019-05-12 | XMS | Encounter Summary ---
Demographics + + + | Address | [address] | | | [place] [address] | + + + | Home Phone | | + + + | Preferred Language | Unknown | + + + | Marital Status | | + + + | Restorationism Affiliation | 1041 | + + + | Race | Unknown | + + + | Ethnic Group | Unknown | + + + Author + + + | Author | [facility] | | | and [place] | + + + | Organization | [facility] | | | and [place] | + + + | Address | Unknown | + + + | Phone | Unavailable | + + + Support + + + + + | Name | Relationship | Address | Phone | + + + + + | Lucy Nunez | ECON | [place], | | | | | [place] [address] | | + + + + + | Kellen Briones | ECON | [place], [place] | | | | | [address] | | + + + + + Care Team Providers + +------+ + | Care Farm Demonstrator Name | Role | Phone | + +------+ + | Anna De Guzman PA-C | PCP | | + +------+ + Encounter Details +--------+ + + + + | Date | Type | Department | Care Team | Description | +--------+ + + + + | 06/23/ | Hospital | [facility] | Chris Longo MD | | | 2012 - | Encounter | MED CTR XRAY [address] | [address] [facility] | | | | | [place] | [place] | | | 06/25/ | | [place] [address] | [address] | | | 2012 | | [phone] | | | | | | | [...] | 2020 | Visit | | [address] | | | | | | [place], | | | | | | [place] [address] | | | | | | [phone] | | | | | | | | +--------+---------+ + + + | 07/30/ | Office | Cardiology | Agata Tinajero DO | | | 2019 | Visit | | [address] | | | | | | [place] | | | | | | [address] | | | | | | | [...] Performed At | + + + | [facility] | [place] | | Department [address], [place] | [place] | | [ rep ct [address]] [ rep [facility] | | st zip] Signed | - IMAGING | | | | | Patient Name: PEDRODAXACISCO TALBERTLOCO Hand Physician: | | | CHAP.20 : 1940 Age: 72 Sex: F Unit #: [id number] | | | Exam Date: 06/23/12 Location: [facility] [place] [place] | | | Report #: [id number] Page: | | | %(RAD)RES..mtdd.print.filter("pg") of %(RAD) | | | RES..mtdd.print.filter("tpg") | | | | | | Accession Number: [id number] | | | UNENHANCED MRA HEAD WITH THREE-DIMENSIONAL VASCULAR RECONSTRUCTION, | | | 06/23/2012 CLINICAL HISTORY: 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 COMPARISON: Brain | | | MRI from the same day. TECHNIQUE: Axial unenhanced 3D | | | btrj-fx-tgsuvq MRA images are performed through the [facility] [facility] [place] | | | and major [...] Transcribed | | | Date/Time: 06/24/2012 10:05 Manager Business Continuity: | | | <<Signature on File>> | | | Papito Garcia | | | MD Augustus06/24/122052 <Electronically signed by Papito Coffman MD> | | | Papito Coffman MD 06/24/1232 Manager Business Continuity: | | | [employer] Tequlrvrrpftc73/22/13 1005 Chris Longo MD | | | | | + + + + + + + + | Performing | Address | City/State/Zipcode | Phone Number | | Organization | | | | + + + + + | [address] | [address] | [place] | [phone] | | [facility] | | [address] | | | - IMAGING | | | | + + + + + MRI Brain w wo Contrast (06/24/2012 9:51 AM PST) + + | Specimen | + + | | + + + + + | Narrative | Performed At | + + + | [facility] | [place] | | Department [address] [place] | [place] | | [ rep ct street1+[address]] [ rep ct [facility] | | st zip] Signed | - IMAGING | | | | | Patient Name: CLEMENTINE NUNEZ Physician: | | | CHAP.20 : 1940 Age: 72 Sex: F Unit #: [id number] | | | Exam Date: 06/23/12 Location: [facility] [place] | | | Report #: [id number] Page: | | | %(RAD)RES..mtdd.print.filter("pg") of %(RAD) | | | RES..mtdd.print.filter("tpg") | | | | | | Accession Number: [id number] | | | UNENHANCED AND ENHANCED BRAIN [...] Transcribed Date/Time: 06/24/2012 10:00 | | | Manager Business Continuity: <<Signature on File>> | | | Papito Avendaño | Jose Coffman MD06/24/12 880 <Electronically signed by Papito Coffman | | | MD> [place] [address] Manager Business Continuity: | | | [employer] Yvulynqtlrjge22/22/13 Brigida Longo MD | | | | | + + + + + + + + | Performing | Address | City/State/Zipcode | Phone Number | | Organization | | | | + + + + + | [address] | [address] | [place] | [phone] | | [facility] | | [address] | | | - IMAGING | | | | + + + + + documented in this encounter Visit Diagnoses Not on filedocumented in this encounter
--- OUTSIDE RECORDS SUMMARY | ~2019-05-12 | XMS | Encounter Summary ---
Demographics + + + | Address | [address] | | | [place] [address] | + + + | Home Phone [...] [place], | | | | | [place] [address] | | + + + + + | Kellen Briones | ECON | [place], [place] | | | | | [address] | | + + + + + Care Team Providers + +------+ + | Care Acetone Recovery Worker Name | Role | Phone | [...] + + | 08/27/ | Telephone | [facility] | Ramon Real | Other | | 2012 | | [address] | MD Idris [address] | | | | | [address] | [place], [place] | | | | | [place], [place] | [address] | | | | | [address] | [phone] | | | | | [phone] | | | +--------+ + + + [...] | | | | | | [place] [address] | | | | | | [phone] | | | | | | | | +--------+---------+ + + + | 07/30/ | Office | Cardiology | Agata Tinajero DO | | | 2019 | Visit | | [address] | | | | | | [place] | | | | | | [address] | | | | | | | | +--------+---------+ + + + documented as of this encounter Visit Diagnoses Not on filedocumented in this encounter"
--- OUTSIDE RECORDS SUMMARY | ~2019-05-12 | XMS | Encounter Summary ---
Demographics + + + | Address | [address] | | | [place] [address] | + + + | Home Phone [...] [place], | | | | | [place] [address] | | + + + + + | Kellen Briones | ECON | [place] | | | | | [address] | | + + + + + Care Team Providers + +------+ + | Care Pinking Sewing Machine Operator Name | Role | Phone [...] + + | 04/02/ | Office | [facility] | Agata Tinajero DO | Atherosclerosis of | | 2019 | Visit | CARDIOLOGY [place] | [address] | [place] coronary | | | | [address] | [place], [place] | artery of [place] | | | | [address] | [id number] | heart without angina | | | | [place] | | pectoris (Primary | | | | [address] | | Dx); Essential | | | | [phone] | | hypertension; | | | | [...] Agata Tinajero, - 04/02/2019 2:00 PM PDT [facility] Cardiology Cardiology Follow Up Note Reason for Consultation: Chest pain Requesting Physician: Barb Marte History Obtained From: patient HISTORY OF PRESENT ILLNESS: Cardiac Problem List 1. CAD s/p CABGx4 in [facility] 2009 S/P [place] to LAD, SVG-OM1, OM2, [...] proximal segment and was filling distally via [id number] collaterals. LEFT VENTRICULOGRAM Left ventriculogram revealed normal left ventricular systolic function with ejection fraction of 60% with severe posterobasal hypokinesis. Carotid US: AAA screening: Lower extremity US: OTHERS: ASSESSMENT & PLAN 1. Pre operative cardiovascular exam 2. CAD s/p CABGx4 in [facility] 2009 S/P [place] to LAD, SVG-OM1, OM2, PDA 2009 3. HTN 4. History CVA 5. HLD 6. DM II 7. Arthritis 8. Asthma 9. Chronic pain 10. DDD 11. GERD 12. History right breast CA s/p mastectomy and chemo - The patient is a 78-year-old female with the above past medical history who presents to [facility] cardiology office for follow up. She has [...] | 2019 | Visit | | [address] | | | | | | [place], | | | | | | [place] [address] | | | | | | [phone] | | | | | | | | +--------+---------+ + + + | 07/30/ | Office | Cardiology | Agata Tinajero DO | | | 2019 | Visit | | [address] | | | | | | [place] | | | | | | [address] | | | | | | | | +--------+---------+ + + + documented as of this encounter Visit Diagnoses + + | Diagnosis | + + | Atherosclerosis of [place] coronary artery of [place] heart without angina pectoris - | | Primary | + + | Essential hypertension Unspecified essential hypertension | + + | Cerebrovascular accident (CVA), unspecified mechanism (HCC) | + + | Other hyperlipidemia | + + | H/O CABG (coronary artery bypass graft) Postsurgical aortocoronary bypass status | + + documented in this encounter
--- OUTSIDE RECORDS SUMMARY | ~2019-05-12 | XMS | Encounter Summary ---
Demographics + + + | Address | [address] | | | [place] [address] | + + + | Home Phone [...] [place], | | | | | [place] [address] | | + + + + + | Kellen Briones | ECON | [place], [place] | | | | | [address] | | + + + + + Care Team Providers + +------+ + | Care Riverboat Captain Name | Role | Phone | + [...] + + | 04/04/ | Telephone | [facility] | Irving Becerril, | Imaging Only | | 2016 | | NEUROSURGERY [address] | DO [address] | (Cervical xray ) | | | | [address] | [address] [place], [place] | | | | | [place], [place] | [id number] | | | | | [address] | | | | | | [phone] | | | +--------+ + + + [...] [place] | | | | | [place] [address] | | | | | | [phone] | | | | | | | | +--------+---------+ + + + | 07/30/ | Office | Cardiology | Agata Tinajero DO | | | 2019 | Visit | | [address] | | | | | | [place] | | | | | | [address] | | | | | | | | +--------+---------+ + + + documented as of this encounter Visit Diagnoses Not on filedocumented in this encounter"
--- OUTSIDE RECORDS SUMMARY | ~2019-05-12 | XMS | Encounter Summary ---
Demographics + + + | Address | [address] | | | [place] [address] | + + + | Home Phone [...] [place], | | | | | [place] [address] | | + + + + + | Kellen Briones | ECON | [place], [place] | | | | | [address] | | + + + + + Care Team Providers + +------+ + | Care Application Internship Name | Role | Phone | + [...] + + | 03/07/ | Telephone | [facility] | Irving Becerril, | Other (Pre op meds | | 2016 | | NEUROSURGERY [address] | DO [address] | to stop) | | | | [address] | [address] [place], [place] | | | | | [place], [place] | [id number] | | | | | [address] | | | | | | [phone] | | | +--------+ + + + [...] | | | | | | [place] [address] | | | | | | [phone] | | | | | | | | +--------+---------+ + + + | 07/30/ | Office | Cardiology | Agata Tinajero DO | | | 2019 | Visit | | [address] | | | | | | [place] | | | | | | [address] | | | | | | | | +--------+---------+ + + + documented as of this encounter Visit Diagnoses Not on filedocumented in this encounter"
--- OUTSIDE RECORDS SUMMARY | ~2019-05-12 | XMS | Encounter Summary ---
Demographics + + + | Address | [address] | | | [place] [address] | + + + | Home Phone [...] [place], | | | | | [place] [address] | | + + + + + | Kellen Briones | ECON | [place], [place] | | | | | [address] | | + + + + + Care Team Providers + +------+ + | Care Composite Laminator Name | Role | Phone | + [...] Lumbar | NARESH Villareal-C | [address] | | | | | radiculopath | [address] | [place], | | | | | y | [address] | [place] | | | | | Procedures | [address] | [address] | | | | | MRI Lumbar | [place], | Phone: | | | | | Spine wo | [place] [address] | [phone] | | | | | Contrast | Phone: | Fax: | | | | | | [phone] | [phone] | | | | | | Fax: | | | | | | | [phone] | | +--------+--------+ + + + + [...] Lumbar | AYAAN Villareal | [address] | | | | | radiculopath | [address] | [place], | | | | | y | [address] | [place] | | | | | Procedures | [address] | [address] | | | | | MRI Lumbar | [place], | Phone: | | | | | Spine wo | [place] [address] | [phone] | | | | | Contrast | Phone: | Fax: | | | | | | [phone] | [phone] | | | | | | Fax: | | | | | | | [phone] | | +--------+--------+ + + + + Encounter Details +--------+ + + + + | Date | Type | Department | Care Team | Description | +--------+ + + + + | 01/22/ | Hospital | [facility] | Mono Diaz, | Lumbar radiculopathy | | 2018 | Encounter | [facility] MRI [address] | PA-C [address] | | | | | [place], | [address] [place] | | | | | [place] [address] | [place] [address] | | | | | [phone] | [phone] | | | | | | | [...] | 2019 | Visit | | [address] | | | | | | [place], | | | | | | [place] [address] | | | | | | [phone] | | | | | | | | +--------+---------+ + + + | 07/30/ | Office | Cardiology | Agata Tinajero DO | | | 2020 | Visit | | [address] | | | | | | [place] | | | | | | [address] | | | | | | | [...] L4 nerve root along with the descending X7dayim | | roots within the subarticular recesses.L5-S1: Moderate to severe disc space narrowing | | and generalized disc osteophytecomplex combine with dorsal ligamentous and facet | | hypertrophy to moderatelynarrow the foramina to a similar degree, with encroachment on | | the exiting Q3vxsfp roots along with the descending S1 nerve [...] 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 LEVOSCOLIOSIS AND MULTILEVEL FACET | [...]
--- OUTSIDE RECORDS SUMMARY | ~2019-05-12 | XMS | Encounter Summary ---
Demographics + + + | Address | [address] | | | [place] [address] | + + + | Home Phone [...] [place], | | | | | [place] [address] | | + + + + + | Kellen Briones | ECON | [place], [place] | | | | | [address] | | + + + + + Care Team Providers + +------+ + | Care Cafeteria Or Lunchroom Checker Name | Role | Phone | [...] + + | 01/23/ | Telephone | [facility] | Mono Diaz, | Results, Imaging | | 2017 | | PHYSIATRY [address] | PA-C [address] | | | | | [place], | [address] [place] | | | | | [place] [address] | [place] [address] | | | | | [phone] | [phone] | | | | | | | [...] | | | | | | [place] [address] | | | | | | [phone] | | | | | | | | +--------+---------+ + + + | 07/30/ | Office | Cardiology | Agata Tinajero DO | | | 2019 | Visit | | [address] | | | | | | [place] | | | | | | [address] | | | | | | | | +--------+---------+ + + + documented as of this encounter Visit Diagnoses Not on filedocumented in this encounter"
--- OUTSIDE RECORDS SUMMARY | ~2019-05-12 | XMS | Encounter Summary ---
Demographics + + + | Address | [address] | | | [place] [address] | + + + | Home Phone [...] [place], | | | | | [place] [address] | | + + + + + | Kellen Briones | ECON | [place], [place] | | | | | [address] | | + + + + + Care Team Providers + +------+ + | Care Ceramics Teacher Name | Role | Phone | [...] + + | 03/19/ | Telephone | [facility] | Tk Ann | Appointment | | 2012 | | PHYSIATRY [address] | T, [address] | | | | | [place], | [place], [place] | | | | | [place] [address] | [address] | | | | | [phone] | | | +--------+ + + + [...] | | | | | | [place] [address] | | | | | | [phone] | | | | | | | | +--------+---------+ + + + | 07/30/ | Office | Cardiology | Agata Tinajero DO | | | 2019 | Visit | | [address] | | | | | | [place] | | | | | | [address] | | | | | | | | +--------+---------+ + + + documented as of this encounter Visit Diagnoses Not on filedocumented in this encounter"
--- OUTSIDE RECORDS SUMMARY | ~2019-05-12 | XMS | Encounter Summary ---
Demographics + + + | Address | [address] | | | [place] [address] | + + + | Home Phone [...] [place], | | | | | [place] [address] | | + + + + + | Kellen Briones | ECON | [place] | | | | | [address] | | + + + + + Care Team Providers + +------+ + | Care Upholstery Department Supervisor Name | Role | Phone | + +------+ + | Barb Marte | THANG | | + +------+ + Encounter Details +--------+ + + + + | Date | Type | Department | Care Team | Description | +--------+ + + + + | 01/31/ | Hospital | [facility] | Judson Palacios DO | | | 2018 - | Encounter | [facility] | [address] | | | | | CARE [address]LO[address] | | | [address]/ | | [address] | [place] [address] | | | 2017 | | [place], [place] | [phone] | | | | | [address] | | | | | | [phone] | | | +--------+ + + + [...] Faisal Briceno MD at 02/05/181509 Author: Faisal Birceno MD Service: Hospitalist Author Type: Physician Filed: 02/06/18 1593 Date of Service: 02/05/181509 Status: Signed City Councilman: Faisal Briceno MD (Physician) [facility] Service: Hospitalist Discharge Summary Date of Admission: [...] confu aura. She was initially admitted to [facility] from 01/16/2018 till 01/28/2018 d ue to suspicion of acute left MCA stroke. Work up there with MRI was negative while Carotid FDopplers showed less than 50 % stenosis. She was subsequently discharged home but she was r eadmitted due to increasing confusion and mild renal failure with creatinine 1.26. She was e ventually transferred to [facility] for further management. She did not have [...] No discharge procedures on file. Follow up: [facility] Schedule an appointment as soon as possible [...] Author: JASON Montaño Service: (none) Author Type: Enrollment Specialist Filed: 02/05/181418 Date of Service: 02/05/181417 Status: Signed City Councilman: JASON Montaño (Enrollment Specialist) Pt's daughter is Lucy and can be reached at: [phone]; [phone] JASON Montaño onver aura Transaction, Provider Unknown - 02/05/2018 2:17 PM PDT Case Management by JASON Montaño at 02/05/181416 Author: JASON Montaño Service: (none) Author Type: Enrollment Specialist Filed: 02/05/181416 Date of Service: 02/05/181416 Status: Signed City Councilman: JASON Montaño (Enrollment Specialist) Disposition: Home to [place] Transportation: Daughter Patient and family in agreement with discharge plan Medicare important message (Given or N/A): Given- signed and placed in chart JASON Montaño onver aura Transaction, Provider Unknown - 02/05/2018 6:59 AM PDT Nurse Progress Note by Nila Gonzalez RN at 02/05/18658 Author: Nila Gonzalez RN Service: (none) Author Type: Registered Nurse Filed: 02/05/18701 Date of Service: 02/05/18658 Status: Signed City Councilman: Nila Gonzalez RN (Registered Nurse) End of shift review completed by this RN. Nila Gonzalez RN onver aura Transaction, Provider Unknown - 02/05/2018 6:44 AM PDT Nurse Progress Note by Vonnie Nolasco RN at 02/05/18643 Author: Vonnie Nolasco RN Service: (none) Author Type: Registered Nurse Filed: 02/05/18647 Date of Service: 02/05/18643 Status: Signed City Councilman: Vonnie Nolasco RN (Registered Nurse) Patient A/OX4, [...] 02/05/18226 Date of Service: 02/05/18224 Status: Signed City Councilman: Vonnie Nolasco RN (Registered Nurse) IV occluded, [...] 02/04/181849 Date of Service: 02/04/181838 Status: Signed City Councilman: Claribel Kerr RN (Registered Nurse) Patient afebrile, [...] 02/04/181954 Date of Service: 02/04/181629 Status: Signed City Councilman: Margo Phillips PT (Physical Therapist) PHYSICAL THERAPY TREATMENT NOTE PT Received On: 02/04/18 Reason for Treatment: Deconditioning Requires PT Follow Up: Yes Follow up PT Only?: No Focus for Next Treatment: Stair Training, Family Training/Education (see comment), Patient Education (see comment) Assistance Required: 1 person Job Cost Estimator Needed: No Recommendations: Home Assist, Prior Setting, Acute ST, Acute OT, OP PT (resume previous OPP T) Equipment Recommended: (none, has SPC and 4ww at baseline) Barriers to Discharge: Cognitive Deficits Impacting Functional [place], Physical Defic its Impacting Functional [place], Self-care Deficits Impacting Functional [place] Recommendation Comments: Limitation for ongoing mobility assessment and stair negotiation t joslyn's date 07/05 nausea. Pt requires further mobility assessment to maximize safe d/c plan. A nticipate home with daughter with 24/12 assist and resume OPPT for balance deficits. Plan Treatment/Interventions: Continue per Primary PT POC Progress: Progressing toward goals PT Frequency: 5-7x/wk, Once per day Summary Comments: Pt received finishing shower with MACHINE CHOCOLATE MOLDER, agreeable to PT intervention with emphasis for [...] Date of Service: 02/04/18 1615 Status: Signed City Councilman: Tala Muro RD (Registered Dietitian) 02/04/18 1537 [...] Physical Findings Digestive System (Mouth to Rectum) HUMAN RESOURCES VICE PRESIDENT following. Pt reports she doesn't like the [...] Estimated Energy Needs Total Energy Estimated Needs [phone] kcal/day Method for Estimating Needs 25-30 kcal/kg based on adj BW of 55.6 kg Estimated Protein Needs Total Protein Estimated Needs 67-83 g/day Method for Estimating Needs 1.2-1.5 g/kg based on adj BW of 55.6 kg Recommendations Recommended energy needs Continue diet per HUMAN RESOURCES VICE PRESIDENT. Send Boost Pudding TID with meals. Encourag [...] (none) Author Type: Speech Therapist Filed: 02/04/18 5090 Date of Service: 02/04/18 1416 Status: Attested City Councilman: EARNEST Francois-S (Speech Therapist) Cosigner: Desi Leary MS [facility]-HUMAN RESOURCES VICE PRESIDENT at 02/04/18 1516 Attestation signed by Desi Leary MS CCC-HUMAN RESOURCES VICE PRESIDENT at 02/04/18 1516 Student therapist educationally participated [...] miguel student's role in care. BEDSIDE SWALLOW HUMAN RESOURCES VICE PRESIDENT Last Visit HUMAN RESOURCES VICE PRESIDENT Received On: 02/04/18 Requires HUMAN RESOURCES VICE PRESIDENT Follow Up: Yes Recommendations Liquids Consistency Recommendations: [place] thick (Ok for thins between meals) Diet [...] are progressing unless otherwise indicated. Dysphagia Goals Learning And Development Specialist Goals: Advanced diet Pt will advanced diet [...] evidence of learning [] Refused Tonya Grullon, HUMAN RESOURCES VICE PRESIDENT-S 02/04/2018 3:10 PM Faisal Muse MD - 02/04/2018 11:34 AM PDTFormatting of this note might be different from yadi thibodeaux original. Progress Notes by Faisal Briceno MD at 02/04/18 1694 Author: Faisal Briceno MD Service: Hospitalist Author Type: Physician Filed: 02/04/18 154 Date of Service: 02/04/18 9294 Status: Signed City Councilman: Faisal Briceno MD (Physician) [facility] Service: Hospitalist Progress Note Clementine Winchester 77 y.o. [phone] [id number] female PER PT NONE (Inactive) Hospital Day: LOS: 4 days SUBJECTIVE Patient Summary: Patient is a 77 year old female with past medical history of Stroke, CAD, S/P CABG, DM Type II, Chronic Back Pain on Opioids who was admitted due to mental status changes and confusio n. She was initially admitted to [facility] from 01/16/2018 till 01/28/2018 due to suspicion of acute left MCA stroke. Work up there with MRI was negative while Carotid FDo pplers showed less than 50 % stenosis. She was subsequently discharged home but she was read mitted due to increasing confusion and mild renal failure with creatinine 1.26. She was even tually transferred to [facility] for further management. She did not have [...] 02/04/18731 Date of Service: 02/04/18731 Status: Signed City Councilman: Thais Castellon RN (Registered Nurse) Pt had [...] 02/03/181705 Date of Service: 02/03/181701 Status: Signed City Councilman: Thais Antunez RN (Registered Nurse) Pt alert [...] Date of Service: 02/03/18 1051 Status: Addendum City Councilman: Sumit Alvarenga MD (Physician) Related Notes: Original Note by Sumit Alvarenga MD (Physician) filed at 02/03/18 1122 [facility] Service: Hospitalist Progress Note Hospital Day: LOS: 3 days Post-Op Day: * No surgery found * SUBJECTIVE Patient Summary: admission H and P Dr. Palacios:"transferred from [facility] in [place] to [facility] today for ongoing confusion of unclear etiology. Originally hospi talized at [facility] 01/26-01/28 due to confusion, aphasia, suspected CVA. Workup included neg MRI, US carotids showing 50% stenosis, unremarkable echo and telemetry. She was evaluate d by PHYSICAL THERAPY/OT/HUMAN RESOURCES VICE PRESIDENT and DC'd home. She reportedly was alert, [...] but this could not be done at [facility]. She was accepted by Dr Victor [...] dependent chronic back pain, originally hospitalized at [facility] A ugust to the due to suspected left MCA stroke, apparent workup included a negative M RI, ultrasound carotid showed less than 50 percent stenosis, she was subsequently discharged home. She then returned back to [facility] on the evening of January 30 with increased co nfusion, according to notes hyperreflexia, increased renal failure with creatinine 1.26, sh e was hydrated improved renal function, due to ongoing symptoms [facility] requested zamorano sfer to our [...] with patient's daughter over the phone (Leighton [phone]), she is hopeful that she can return [...] able to tell me she is at [facility], able to tell me she lives in [place] on, was unsure of the month and date , Cooperative, calm HENT: Mouth/Throat: No oropharyngeal exudate. 3 mm pupils bilateral, reactive Eyes: Oral mucosa moist Neck: Neck seems supple Cardiovascular: Normal rate. Pulmonary/Chest: Effort normal. Abdomina/Gl: Soft. Bowel sounds are normal. Neurological: She is alert. No cranial nerve deficit. Television Journalist strength equal No pronation drift Motor seems [...] 02/03/18605 Date of Service: 02/02/182212 Status: Signed City Councilman: Jessy Jeter RN (Registered Nurse) Alert and [...] 02/02/182007 Date of Service: 02/02/182006 Status: Signed City Councilman: Minal Clarke RN (Registered Nurse) BPs remained elevated this shift, PRN hydralazine given x2 and labetolol x1. Pt has trouble finding words at times and has delayed responses. Bed alarm on at all times, end of shift r eview completed. Minal Clarke RN onver uara Transaction, Provider Unknown - 02/02/2018 3:54 PM PDT Progress Notes by Isacc Vail at 02/02/18 1554 Author: Isacc Vail Service: (none) Author Type: Drop Crew Laborer Filed: 02/02/18 1618 Date of Service: 02/02/18 1554 Status: Signed City Councilman: Isacc Vail (Drop Crew Laborer) Per Distress Referral. Pt appears calm in [...] Date of Service: 02/02/18 1033 Status: Signed City Councilman: Jonathan Montes RN (Registered Nurse) 02/02/18 1024 Discharge Planning Evaluation Admitting Diagnosis Acute Metabolic encephalopathy Readmission No Living Arrangements Children (Pts daughter lives with her Lucy [phone]) Support Systems Children Type of Residence Private residence House type House-1 story Steps to enter 5 Independent with ADL's Yes Independent with Mobility Yes Home Care Services No Caregiver after Discharge No Mental Status Oriented Prior functional status independent Power of J2Ee Application Developer No Anticipated Discharge Plan Post Acute Care [...] y.o., female from home with keely Ayala [phone]. Daughter will transport pt home when medically stable. Pt uses a 4ww at home when needed, Home o2 thru [employer] at 2L, and no other DME or blood thinners. Patient's PCP is:[facility] Patient's insurance:Medicare/ Coverage concerns: no concerns Medication [...] 02/02/1855 Date of Service: 02/02/18825 Status: Signed City Councilman: Sumit Alvarenga MD (Physician) [facility] Service: Hospitalist Progress Note Hospital Day: LOS: 2 days Post-Op Day: * No surgery found * SUBJECTIVE Patient Summary: admission H and P Dr. Palacios:"transferred from [facility] in [place] to [facility] today for ongoing confusion of unclear etiology. Originally hospi talized at [facility] 01/26-01/28 due to confusion, aphasia, suspected CVA. Workup included neg MRI, US carotids showing 50% stenosis, unremarkable echo and telemetry. She was evaluate d by PHYSICAL THERAPY/OT/HUMAN RESOURCES VICE PRESIDENT and DC'd home. She reportedly was alert, [...] but this could not be done at [facility]. She was accepted by Dr Victor [...] dependent chronic back pain, originally hospitalized at [facility] A ugust to the due to suspected left MCA stroke, apparent workup included a negative M RI, ultrasound carotid showed less than 50 percent stenosis, she was subsequently discharged home. She then returned back to [facility] on the evening of January 30 with increased co nfusion, according to notes hyperreflexia, increase her renal failure with creatinine 1.26, she was hydrated improved renal function, due to ongoing symptoms [facility] requested josué mcpherson to our [...] the date, able tell she lives i [facility] though unable to give me full address , Cooperative, calm HENT: Mouth/Throat: No oropharyngeal exudate. 3 mm pupils bilateral, reactive Eyes: Oral mucosa moist Neck: Neck seems supple Cardiovascular: Normal rate. Pulmonary/Chest: Effort normal. Abdomina/Gl: Soft. Bowel sounds are normal. Neurological: She is alert. No cranial nerve deficit. Television Journalist strength equal No pronation drift Motor seems [...] 0636 Date of Service: 02/02/18214 Status: Signed City Councilman: Jessy Jeter RN (Registered Nurse) Patient was [...] Note by Jina Nation RN at 02/01/18 4033 Author: Jina Nation RN Service: (none) Author Type: Registered Nurse Filed: 02/01/181900 Date of Service: 02/01/18 1841 Status: Signed City Councilman: Jina Nation RN (Registered Nurse) Patient has [...] complete. Jina Nation RN Idalia Darby MS CCC-HUMAN RESOURCES VICE PRESIDENT - 02/01/2018 9:40 AM PDTFormatting of this note might be different fr om the original. Therapy Progress Note by Idalia Katz MS CCC-HUMAN RESOURCES VICE PRESIDENT at 02/01/18 0940 Author: Idalia Katz MS CCC-HUMAN RESOURCES VICE PRESIDENT Service: (none) Author Type: Speech and Language Patho logist Filed: 02/01/18 1001 Date of Service: 02/01/1840 Status: Signed City Councilman: Idalia Katz MS CCC-HUMAN RESOURCES VICE PRESIDENT (Speech and Language Pathologist) BEDSIDE SWALLOW HUMAN RESOURCES VICE PRESIDENT Last Visit HUMAN RESOURCES VICE PRESIDENT Received On: 02/01/18 Requires HUMAN RESOURCES VICE PRESIDENT Follow Up: Yes Recommendations Liquids Consistency Recommendations: [place] thick, Sips of thin water ok between [...] laryngeal elevation upon palpation, Spontaneous double swallow [place] Presentation: Cup Oral: Within functional limits Pharyngeal Phase: Delayed swallow initiated, Decreased laryngeal elevation upon palpation, No overt signs or symptoms of aspiration, Spontaneous double swallow Puree Presentation: Spoon Oral Phase: Within functional limits, Increased oral holding time Pharyngeal: No overt signs or symptoms of aspiration, Delayed Swallow, Decreased Laryngeal Elevation, Spontaneous double swallow Goals are progressing unless otherwise indicated. Dysphagia Goals Learning And Development Specialist Goals: Advanced diet Pt will advanced diet [...] Notes by Sumit Alvarenga MD at 02/01/18 8244 Author: Sumit Alvarenga MD Service: Hospitalist Author Type: Physician Filed: 02/01/18 0858 Date of Service: 02/01/18830 Status: Addendum City Councilman: Sumit Alvarenga MD (Physician) Related Notes: Original Note by Sumit Alvarenga MD (Physician) filed at 02/01/1855 [facility] Service: Hospitalist Progress Note Hospital Day: LOS: 1 day Post-Op Day: * No surgery found * SUBJECTIVE Patient Summary: admission H and P Dr. Palacios:"transferred from [facility] in [place] to [facility] today for ongoing confusion of unclear etiology. Originally hospi talized at [facility] 01/26-01/28 due to confusion, aphasia, suspected CVA. Workup included neg MRI, US carotids showing 50% stenosis, unremarkable echo and telemetry. She was evaluate d by PHYSICAL THERAPY/OT/HUMAN RESOURCES VICE PRESIDENT and DC'd home. She reportedly was alert, [...] but this could not be done at [facility]. She was accepted by Dr Victor [...] dependent chronic back pain, originally hospitalized at [facility] A ugust to the due to suspected left MCA stroke, apparent workup included a negative M RI, ultrasound carotid showed less than 50 percent stenosis, she was subsequently discharged home. She then returned back to [facility] on the evening of January [...] She is alert. No cranial nerve deficit. Television Journalist strength seems bilateral Rigidity with a passive [...] Note by Jessy Jeter RN at 02/01/18 0908 Author: Jessy Jeter RN Service: (none) Author Type: Registered Nurse Filed: 02/01/18 0652 Date of Service: 02/01/18435 Status: Signed City Councilman: Jessy Jeter RN (Registered Nurse) Patient alert [...] Note by Jessy Jeter RN at 01/31/18 3605 Author: Jessy Jeter RN Service: (none) Author Type: Registered Nurse Filed: 01/31/182250 Date of Service: 01/31/182245 Status: Signed City Councilman: Jessy Jeter RN (Registered Nurse) All oral [...] 01/31/181958 Date of Service: 01/31/181956 Status: Signed City Councilman: Keith Bonds RN (Registered Nurse) Pt brought [...] | 2019 | Visit | | [address] | | | | | | [place] | | | | | | [place] [address] | | | | | | [phone] | | | | | | | | +--------+---------+ + + + | 07/30/ | Office | Cardiology | Agata Tinajero DO | | | 2019 | Visit | | [address] | | | | | | [place] | | | | | | [address] | | | | | | | [...] | | | Fingerstick | performed at [facility];[address] | | LAB | | | | [address] [facility];[place], [place] | | | | | | [address] | | | | + + + [...] | | | | | performed at [facility] | | | | | | [facility];[place], [place] | | | | | | [address] | | | | + + + [...] | | | Fingerstick | performed at [facility];[address] | | LAB | | | | [address];[place], [place] | | | | | | [address] | | | | + + + [...] | | | Fingerstick | performed at [facility];[address] | | LAB | | | | [address];[place], [place] | | | | | | [address] | | | | + + + [...] | | | Fingerstick | performed at [facility];[address] | | LAB | | | | [address];[place], [place] | | | | | | [address] | | | | + + + [...] | | | Fingerstick | performed at [facility];[address] | | LAB | | | | [address];[place], [place] | | | | | | [address] | | | | + + + [...] | | | Fingerstick | performed at [facility];[address] | | LAB | | | | [address];[place] | | | | | | [address] | | | | + + + [...] | | | | | [place] [address] | | | | + + + [...] | | | | | performed at [facility], [address] | | | | | | [facility], | | | | | | [place] [address] | | | | + + + [...] | | | Fingerstick | performed at [facility];[address] | | LAB | | | | [address];[place] | | | | | | [address] | | | | + + + [...] | | | Fingerstick | performed at [facility];[address] | | LAB | | | | [address];[place], [place] | | | | | | [address] | | | | + + + [...] | | | Fingerstick | performed at [facility];[address] | | LAB | | | | [address];[place], [place] | | | | | | [address] | | | | + + + [...] | | | Fingerstick | performed at [facility];[address] | | LAB | | | | [address];[place] | | | | | | [address] | | | | + + + [...] | | | | | performed at [facility], [address] | | | | | | [facility], | | | | | | [place] [address] | | | | + + + [...] | | | Fingerstick | performed at [facility];[address] | | LAB | | | | [address];[place] | | | | | | [address] | | | | + + + [...] | | | Fingerstick | performed at [facility];[address] | | LAB | | | | [address];[place], [place] | | | | | | [address] | | | | + + + [...] | | | Fingerstick | performed at [facility];[address] | | LAB | | | | [address];[place], [place] | | | | | | [address] | | | | + + + [...] | | | Fingerstick | performed at [facility];[address] | | LAB | | | | [address];[place] | | | | | | [address] | | | | + + + [...] + + | Hemoglobin | 5.4Comment: The Ukrainian | 4.0 - 6.0 % | EXTERNAL [...] | | | | | performed at [facility], [address] | | | | | | [facility], | | | | | | [place] [address] | | | | + + + [...] | | | Fingerstick | performed at [facility];[address] | | LAB | | | | [address];[place], [place] | | | | | | [address] | | | | + + + [...] | | | Fingerstick | performed at [facility];[address] | | LAB | | | | [address];[place], [place] | | | | | | [address] | | | | + + + [...] | | | Fingerstick | performed at [facility];[address] | | LAB | | | | [address];[place], [place] | | | | | | [address] | | | | + + + [...] | | | Basophils | performed at [facility], [address] | K/uL | LAB | | | | [address], | | | | | | [place] [address] | | | | + + + [...] EXTERNAL | | | | performed at [facility], [address] | uIU/mL | LAB | | | | [address], | | | | | | [place] [address] | | | | + + + [...] EXTERNAL | | | | performed at [facility];[address] | mmol/L | LAB | | | | [address];[place], [place] | | | | | | [address] | | | | + + + [...] EXTERNAL | | | | performed at [facility];[address] | | LAB | | | | [address] [facility];[place], [place] | | | | | | [address] | | | | + + + [...] | | | | | performed at [facility], [address] | | | | | | [facility], | | | | | | [place] [address] | | | | + + + [...]
--- OUTSIDE RECORDS SUMMARY | ~2019-05-12 | XMS | Encounter Summary ---
Demographics + + + | Address | [address] | | | [place] [address] | + + + | Home Phone [...] [place], | | | | | [place] [address] | | + + + + + | Kellen Briones | ECON | [place], [place] | | | | | [address] | | + + + + + Care Team Providers + +------+ + | Care Airport Skilled Maintenance Supervisor Name | Role | Phone | [...] + + | 12/14/ | Office | [facility] | Pipp[place], | Spinal stenosis of | | 2013 | Visit | PHYSIATRY [address] | [address] | lumbar region with | | | | [place], | [address] [place], | tawlevarlybnp-M9-P6 | | | | [place] [address] | [place] [address] | level moderately | | | | [phone] | [phone] | severe (Primary Dx); | | | [...] of the procedure you must provide a driver guard to take you home. For all procedur [...] and narcotic medications use; she currently uses [place], Flexeril and [place] bapentin. Patient's medications, allergies, [...] 1. Spinal stenosis of lumbar region with rabtkoujefohy-L7-M6 level moderately severe 2. Facet arthritis of [...] after the injection. She is awaiting to [facility] cleared by her bottom turning lathe tender for cervical fusion. ELECTRONICALLY SIGNED BY: Claudia [...] | | | | | | [place] [address] | | | | | | [phone] | | | | | | | | +--------+---------+ + + + | 07/30/ | Office | Cardiology | Agata Tinajero DO | | | 2019 | Visit | | [address] | | | | | | [place] | | | | | | [address] | | | | | | | | +--------+---------+ + + + documented as of this encounter Results FL BAUTISTA Lumbar Transforaminal (02/02/2014 4:49 PM PDT) + + | Specimen | + + | | + + + + + | Narrative | Performed At | + + + | 02/02/2014 Bilateral Transforaminal Epidural Steroid Injections | [place] | | Diagnosis: Lumbar radiculopathy ICD-9 Code 724.4 Clementine Phoenix | [facility] | | Annabella presents to the fluoroscopy suite for fluoroscopically-guided [facility] | | bilateral L5-S1 transforaminal epidural steroid [...] [address] 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
--- OUTSIDE RECORDS SUMMARY | ~2019-05-12 | XMS | Encounter Summary ---
Demographics + + + | Address | [address] | | | [place] [address] | + + + | Home Phone [...] [place], | | | | | [place] [address] | | + + + + + | Kellen Briones | ECON | [place], [place] | | | | | [address] | | + + + + + Care Team Providers + +------+ + | Care Rn Lactation Consultant Name | Role | Phone | [...] | Lumbar | Marissa, | [address] | | | | | radiculopath | Tk Monreal MD | [place], | | | | | y | [address] | [place] | | | | | Procedures | [place] | [address] | | | | | [place] INJECT | [facility], [place] | Phone: | | | | | ANES/STEROID | [address] | [phone] | | | | | FORAMEN | Phone: | Fax: | | | | | LUMBAR/SACRA | [phone] | [phone] | | | | | L W IMG | Fax: | | | | | | GUIDE ,1 | [phone] | | | | | | LEVEL [place] | | | | | | | [...] + + | 06/27/ | Hospital | [facility] | Bogdanowicz, | Lumbar | | 2017 | Encounter | MED CTR XRAY [address] | [address] | radiculopathy; | | | | [address] [place] | [facility], | Spinal stenosis of | | | | [place] [address] | [place] [address] | lumbar region with | | | | [phone] | [phone] | hnyspluzmthvx-K0-P2 | | | | | | level moderately | | | | | Clearing Supervisor, [place] | severe; DDD | | | [...] | | | | | | [place] [address] | | | | | | [phone] | | | | | | | | +--------+---------+ + + + | 07/30/ | Office | Cardiology | Agata Tinajero DO | | | 2019 | Visit | | [address] | | | | | | [place] | | | | | | [address] | | | | | | | [...] with | | | | | | rlieoopnrvyxe-T6-K7 | | | | | | level [...] Lumbar radiculopathy ICD-10 Code M54.16 Clementine | [facility] | | Lizett Winchester presents to the fluoroscopy suite for [facility] | | fluoroscopically-guided bilateral L5-S1 transforaminal [...] ST. | [address] | [place], [place] | [phone] | | [facility] | | [address] | | | - IMAGING | | | | + + + + + documented in this encounter Visit Diagnoses + + | Diagnosis | + + | Lumbar radiculopathy Thoracic or lumbosacral neuritis or radiculitis, unspecified | + + | Spinal stenosis of lumbar region with bniscujywhkac-T2-X4 level moderately severe | | Spinal stenosis, [...]
--- OUTSIDE RECORDS SUMMARY | ~2019-05-12 | XMS | Encounter Summary ---
Demographics + + + | Address | [address] | | | [place] [address] | + + + | Home Phone [...] Organization | [facility] | | | and [place] | + + + | Address | Unknown | + + + | Phone | Unavailable | + + + Support + + + + + | Name | Relationship | Address | Phone | + + + + + | Lucy Winchester | ECON | [place], | | | | | [place] [address] | | + + + + + | Kellen Briones | ECON | [place], [place] | | | | | [address] | | + + + + + Care Team Providers + +------+ + | Care Ore Bridge Operator Name | Role | Phone | [...] + | 08/10/ | Refill | [facility] | Irving Becerril, | Medication Refill | | 2016 | | NEUROSURGERY [address] | DO [address] | | | | | [address] [facility] [address] | [address] [place], [place] | | | | | [place], [place] | [id number] | | | | | [address] | | | | | | [phone] | | | +--------+--------+ + + + [...] | | | | | | [place] [address] | | | | | | [phone] | | | | | | | | +--------+---------+ + + + | 07/30/ | Office | Cardiology | Agata Tinajero DO | | | 2019 | Visit | | [address] | | | | | | [place] | | | | | | [address] | | | | | | | | +--------+---------+ + + + documented as of this encounter Visit Diagnoses + + | Diagnosis | + + | S/P cervical spinal fusion - Primary Arthrodesis status | + + documented in this encounter"
--- OUTSIDE RECORDS SUMMARY | ~2019-05-12 | XMS | Encounter Summary ---
Demographics + + + | Address | [address] | | | [place] [address] | + + + | Home Phone [...] [place], | | | | | [place] [address] | | + + + + + | Kellen Briones | ECON | [place], [place] | | | | | [address] | | + + + + + Care Team Providers + +------+ + | Care Synthetic Cloth Binding Cutter Name | Role | Phone | [...] + + | 12/23/ | Telephone | [facility] | Gonzalo Mathew MD | Records Request | | 2014 | | NEUROSURGERY [address] | [address] | (CARDIOLOGY | | | | [address] | [place] [address] | CLEARANCE) | | | | [place] | [phone] | | | | | [address] | | | | | | [phone] | | | +--------+ + + + [...] | | | | | | [place] [address] | | | | | | [phone] | | | | | | | | +--------+---------+ + + + | 07/30/ | Office | Cardiology | Agata Tinajero DO | | | 2019 | Visit | | [address] | | | | | | [place] | | | | | | [address] | | | | | | | | +--------+---------+ + + + documented as of this encounter Visit Diagnoses Not on filedocumented in this encounter"
--- OUTSIDE RECORDS SUMMARY | ~2019-05-12 | XMS | Encounter Summary ---
Demographics + + + | Address | [address] | | | [place] [address] | + + + | Home Phone [...] [place], | | | | | [place] [address] | | + + + + + | Kellen Briones | ECON | [place], [place] | | | | | [address] | | + + + + + Care Team Providers + +------+ + | Care Track Superintendent Name | Role | Phone | [...] | | | | lumbar | [place] [address] | [address] Phone: | | | | | region DDD | Phone: | [phone] | | | | | (degenerativ | [phone] | Fax: | | | | | e disc | Fax: | [phone] | | | | | disease), | [phone] | | | | | | lumbar [...] + + | 12/29/ | Office | [facility] | Leonard Terrazas | Back pain, | | 2019 | Visit | NEUROSURGERY [address] | MD Di [address] | unspecified back | | | | [address] | [address] [facility] | location, | | | | [place] | [place] [address] | unspecified back | | | | [address] | [phone] | pain laterality, | | | | [phone] | | unspecified | | | | [...] encounter Patient Instructions Patient Instructions Silvia Sun Ethernet Network Architect - 12/29/2018 1:45 PM PDT You will need to get preoperative clearance from your primary care provider as well as your steam cleaner if you have one. If you decide [...] Terrazas MD - 12/29/2018 1:45 PM PDT Loenard Terrazas MD [address] [place] [address], [address] [place] [address] PHONE: FAX: NEUROSURGERY HISTORY AND PHYSICAL EXAMINATION [...] reflux disease) Hyperlipidemia Hypertension Lumbar radiculopathy 07/23/2012 [place] (myocardial infarction) (HCC) Neck pain on right side 05/13/2013 Oxygen dependent 2 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 Snoring Spinal stenosis of lumbar region with nyybqsqqevqac-G9-H9 level moderately severe 2012 PAST SURGICAL HISTORY: Past Surgical History: Procedure Laterality Date BELPHAROPTOSIS REPAIR 2009 bilateral bone spur left foot BREAST RECONSTRUCTION 4096-4764 About 10 surgeries CARPAL TUNNEL RELEASE Bilateral CERVICAL SPINE SURGERY Anterior 03/30/2016 Procedure: C3-4, C4-5, C5-6, C6-7 Anterior Cervical Discectomy w/ Fusion and Plating; Bryan geon: Irving Becerril, DO; Location: [facility] OR CORONARY ARTERY BYPASS GRAFT 2009 [...] has no apparent deficits with short or extermination inspector memory. CRANIAL NERVES: II: Acuity is intact. 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
--- OUTSIDE RECORDS SUMMARY | ~2019-05-12 | XMS | Encounter Summary ---
Demographics + + + | Address | [address] | | | [place] [address] | + + + | Home Phone [...] [place], | | | | | [place] [address] | | + + + + + | Kellen Briones | ECON | [place], [place] | | | | | [address] | | + + + + + Care Team Providers + +------+ + | Care Corn Husk Baler Name | Role | Phone | + [...] | Lumbar | Marissa, | [address] | | | | | radiculopath | Tk Monreal MD | [place], | | | | | y | [address] | [place] | | | | | Procedures | [place] | [address] | | | | | MD INJECT | [facility] [place] | Phone: | | | | | ANES/STEROID | [address] | [phone] | | | | | FORAMEN | Phone: | Fax: | | | | | LUMBAR/SACRA | [phone] | [phone] | | | | | L W IMG | Fax: | | | | | | GUIDE ,1 | [phone] | | | | | | LEVEL MD | | | | | | | [...] + + | 07/05/ | Hospital | [facility] | Bogdathacz, | Lumbar | | 2016 | Encounter | MED CTR XRAY [address] | [address] | radiculopathy; | | | | [address] [place] | [facility], | Spinal stenosis of | | | | [place] [address] | [place] [address] | lumbar region with | | | | [phone] | [phone] | uurflgdlfywxa-D0-J0 | | | | | | level moderately | | | | | Senior Hadoop DeveloperJordan | severe | +--------+ + + + [...] | | | | | | [place] [address] | | | | | | [phone] | | | | | | | | +--------+---------+ + + + | 07/30/ | Office | Cardiology | Agata Tinajero DO | | | 2019 | Visit | | [address] | | | | | | [place] | | | | | | [address] | | | | | | | [...] with | | | | | | dscllqsuovoup-U0-W9 | | | | | | level [...] radiculopathy ICD-10 Code M54.16 Clementine Phoenix | [facility] | | Annabella presents to the fluoroscopy suite for [facility] | | fluoroscopically-guided bilateral L5-S1 [...] [address] | [place] | [phone] | | [facility] | | [address] | | | - IMAGING | | | | + + + + + documented in this encounter Visit Diagnoses + + | Diagnosis | + + | Lumbar radiculopathy Thoracic or lumbosacral neuritis or radiculitis, unspecified | + + | Spinal stenosis of lumbar region with wurczefhddavv-L1-G9 level moderately severe | | Spinal stenosis, [...]
--- OUTSIDE RECORDS SUMMARY | ~2019-05-12 | XMS | Encounter Summary ---
Demographics + + + | Address | [address] | | | [place] [address] | + + + | Home Phone [...] [place], | | | | | [place] [address] | | + + + + + | Kellen Briones | ECON | [place] | | | | | [address] | | + + + + + Care Team Providers + +------+ + | Care Nicu Rn Name | Role | Phone | + +------+ + | Barb Marte | PCP | | + +------+ + Encounter Details +--------+ + + + + | Date | Type | Department | Care Team | Description | +--------+ + + + + | 01/31/ | Hospital | [facility] | Conversion | Diagnosis unknown | | 2018 | Encounter | CONVERSION DEP [address] | Transaction, | | | | | [address] [place] | Provider Unknown | | | | | [place] | [phone] | | | | | [address] | | | | | | [phone] | | | +--------+ + + + [...] | | | | | | [place] [address] | | | | | | [phone] | | | | | | | | +--------+---------+ + + + | 07/30/ | Office | Cardiology | Agata Tinajero DO | | | 2019 | Visit | | [address] | | | | | | [place] | | | | | | [address] | | | | | | | [...]
--- OUTSIDE RECORDS SUMMARY | ~2019-05-12 | XMS | Encounter Summary ---
Demographics + + + | Address | [address] | | | [place] [address] | + + + | Home Phone [...] [place], | | | | | [place] [address] | | + + + + + | Kellen Briones | ECON | [place], [place] | | | | | [address] | | + + + + + Care Team Providers + +------+ + | Care Senior Accountant Analyst Name | Role | Phone | [...] | | | | CLINIC [address] | [address] [place], [place] | Cerebrovascular | | | | [place], [place] | [address] | accident (CVA), | | | | [address] | | unspecified | | | | [...] involving | | | | | | cahto coronary | | | | | | artery of cahto | | | | | | heart without angina | | | | | | pectoris; 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 | | | | | | without complication | | | | | | ([facility]); Essential | | | | | | hypertension; | | | | | | Syncope and | | | | | | collapse; Cancer | | | | | | ([facility]); 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| | hyperlipidemia; ST | | | | | | elevation myocardial | | | | | | infarction (STEMI), | | | | | | unspecified artery | | | | | | ([facility]); | | | | | | [...] with | | | | | | dzvahhkcvkvrz-G4-Y4 | | | | | | level [...] region | | | | | | ([facility]); DDD | | | | | [...] | | | | | | [place] [address] | | | | | | [phone] | | | | | | | | +--------+---------+ + + + | 07/30/ | Office | Cardiology | Agata Tinajero DO | | | 2019 | Visit | | [address] | | | | | | [place] | | | | | | [address] | | | | | | | [...] involving | | | | | | cahto coronary | | | | | | artery of cahto | | | | | | heart [...] with | | | | | | zgbhmezunnyei-P2-L2 | | | | | | level [...] involving | | | | | | cahto coronary | | | | | | artery of cahto | | | | | | heart [...] with | | | | | | fhpybdvaahlvx-B9-K2 | | | | | | level [...] involving | | | | | | cahto coronary | | | | | | artery of cahto | | | | | | heart [...] with | | | | | | vqqengleunvna-J4-Y5 | | | | | | level [...] involving | | | | | | cahto coronary | | | | | | artery of cahto | | | | | | heart [...] with | | | | | | zngmwryucaqni-X3-F2 | | | | | | level [...] involving | | | | | | cahto coronary | | | | | | artery of cahto | | | | | | heart without angina | | | | | | pectoris 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 | | | | | | without complication | | | | | | ([facility]) Essential | | | | | | hypertension | | | | | | Syncope and collapse | | | | | | Cancer ([facility]) | | | | | | Other [...] with | | | | | | xmhvehgmuiymv-P0-E8 | | | | | | level [...] 0.96 | 0.60 - 1.30 | [facility] | | | | | mg/dL | [facility] | | | | | | MEDICAL | | | | | | CENTER - | | | | | | LABORATORY | | + + + + + + | eGFR if not | 57 (L)Comment: | >=60 | [place] | | | | GLOMERULAR FILTRATION | mL/min/1.73m2 | [facility] | | | HUNGARIAN | RATE,ESTIMATED | | MEDICAL | | | | mL/min/1.77k1Ywqe than | | CENTER - | | [...] 8.4 | 8.3 - 10.5 | [facility] | | | | | mg/dL | [facility] | | | | | | [...] [address] | [place] | [phone] | | [facility] | | [address] | | | - LABORATORY | | [...] [facility] | | | | | | [facility] | | | | | [...] + | [facility] | [address] | [place] | [phone] | | [facility] | | [address] | | | - LABORATORY | | [...] + | [facility] | [address] | [place] | [phone] | | [facility] | | [address] | | | - LABORATORY | | [...] + | [facility] | 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
--- OUTSIDE RECORDS SUMMARY | ~2019-05-12 | XMS | Encounter Summary ---
Demographics + + + | Address | [address] | | | [place] [address] | + + + | Home Phone [...] [place], | | | | | [place] [address] | | + + + + + | Kellen Briones | ECON | [place], [place] | | | | | [address] | | + + + + + Care Team Providers + +------+ + | Care Prison Officer Name | Role | Phone | [...] [address] | | | | | [place], [place] | [place] [address] | | | | | [address] | [phone] | | | | | [phone] | | | +--------+ + + + [...] | | | | | | [place] [address] | | | | | | [phone] | | | | | | | | +--------+---------+ + + + | 07/30/ | Office | Cardiology | Agata Tinajero DO | | | 2019 | Visit | | [address] | | | | | | [place] | | | | | | [address] | | | | | | | [...] At | + + + | [facility] | | | [facility] [address] | | | , | | | [id number]/RADIOLOGY Patient Name: CLEMENTINE NUNEZ Date of : | | | 1940 Medical Record: [id number] Account: [id number] // | | | Exam Date/Time: 07/06/2009 [...] 09:44 P | | | P P [facility]//[id number]/ | | | cc: MD MARCIA WHITE MD SARAVANA | | | MD LUZ ELENA | | + + + + + | Procedure Note | + + | Nilay Lawrence - 01/25/2019 5:24 PM PDT | | [facility] | | [facility] [address] | | , | | | | [id number]/RADIOLOGY | | | | Patient Name: CLEMENTINE NUNEZ | | Date of : 1940 | | Medical Record: [id number] | | Account: [id number] | | // | | | | [...] | P | | P | | [facility]/[id number]/[id number]/ | | cc: YANNICK MCKINNEY MD | | MARCIA MOTLEY MD | | KERA LAGUNA MD | + + documented in this encounter Visit Diagnoses + + | Diagnosis | + + | Chest pain, unspecified | + + documented in this encounter"
--- OUTSIDE RECORDS SUMMARY | ~2019-05-12 | XMS | Encounter Summary ---
Demographics + + + | Address | [address] | | | [place] [address] | + + + | Home Phone [...] [place], | | | | | [place] [address] | | + + + + + | Kellen Briones | ECON | [place], [place] | | | | | [address] | | + + + + + Care Team Providers + +------+ + | Care Maintenance Mgr Name | Role | Phone | + [...] + + | 12/22/ | Telephone | [facility] | Ramon Real | Appointment | | 2012 | | [address] | FMD [address] | (Appointment | | | | [address] | [place], [place] | request) | | | | [place], [place] | [address] | | | | | [address] | [phone] | | | | | [phone] | | | +--------+ + + + [...] | | | | | | [place] [address] | | | | | | [phone] | | | | | | | | +--------+---------+ + + + | 07/30/ | Office | Cardiology | Agata Tinajero DO | | | 2019 | Visit | | [address] | | | | | | [place] | | | | | | [address] | | | | | | | | +--------+---------+ + + + documented as of this encounter Visit Diagnoses Not on filedocumented in this encounter"
--- OUTSIDE RECORDS SUMMARY | ~2019-05-12 | XMS | Encounter Summary ---
Demographics + + + | Address | [address] | | | [place] [address] | + + + | Home Phone | | + + + | Preferred Language | Unknown | + + + | Marital Status | | + + + | Catholic Affiliation | 1041 | + + + | Race | Unknown | + + + | Ethnic Group | Unknown | + + + Author + + + | Author | [facility] | | | and [place] | + + + | Organization | [facility] | | [...] [place], | | | | | [place] [address] | | + + + + + | Kellen Briones | ECON | [place], [place] | | | | | [address] | | + + + + + Care Team Providers + +------+ + | Care Beauty Culturist Apprentice Name | Role | Phone | [...] | arthritis of | [address] | [place], [place] | | | | | cervical | [place], [place] | [address] Phone: | | | | | region [place] | [address] | [phone] | | | | | (degenerativ | Phone: | Fax: | | | | | e disc | [phone] | [phone] | | | | | disease), | Fax: | | | | | | cervical | [phone] | | | | | | Cervical [...] Neck pain | [place], | [address] | | | | | on right | Claud[place], | [place], | | | | | side Facet | PA-C [address] | [place] | | | | | arthritis of | [address] | [address] | | | | | cervical | [place] | Phone: | | | | | region DDD | [address] | [phone] | | | | | (degenerativ | Phone: | Fax: | | | | | e disc | [phone] | [phone] | | | | | disease), | Fax: | | | | | | cervical | [phone] | | | | | | Cervical [...] [address] | | | | | [address] [place], | [facility], | | | | | [place] [address] | [place] [address] | | | | | [phone] | [phone] | | | | | | | [...] | | | | | | [place] [address] | | | | | | [phone] | | | | | | | | +--------+---------+ + + + | 07/30/ | Office | Cardiology | Agata Tinajero DO | | | 2019 | Visit | | [address] | | | | | | [place] | | | | | | [address] | | | | | | | [...] | Spinal stenosis of lumbar region with wagmszxfyjoji-Q3-K9 level moderately severe | | Spinal stenosis, [...]
--- OUTSIDE RECORDS SUMMARY | ~2019-05-12 | XMS | Encounter Summary ---
Demographics + + + | Address | [address] | | | [place] [address] | + + + | Home Phone [...] [place], | | | | | [place] [address] | | + + + + + | Kellen Briones | ECON | [place], [place] | | | | | [address] | | + + + + + Care Team Providers + +------+ + | Care Meter Changes Records Clerk Name | Role | Phone | [...] + | 05/31/ | Refill | [facility] | Irving Becerril, | Medication Refill | | 2015 | | NEUROSURGERY [address] | DO [address] | | | | | [address] | [address] [place], [place] | | | | | [place], [place] | [id number] | | | | | [address] | | | | | | [phone] | | | +--------+--------+ + + + [...] | | | | | | [place] [address] | | | | | | [phone] | | | | | | | | +--------+---------+ + + + | 07/30/ | Office | Cardiology | Agata Tinajero DO | | | 2019 | Visit | | [address] | | | | | | [place] | | | | | | [address] | | | | | | | | +--------+---------+ + + + documented as of this encounter Visit Diagnoses + + | Diagnosis | + + | S/P cervical spinal fusion - Primary Arthrodesis status | + + documented in this encounter"
--- OUTSIDE RECORDS SUMMARY | ~2019-05-12 | XMS | Encounter Summary ---
Demographics + + + | Address | [address] | | | [place] [address] | + + + | Home Phone [...] [place], | | | | | [place] [address] | | + + + + + | Kellen Briones | ECON | [place], [place] | | | | | [address] | | + + + + + Care Team Providers + +------+ + | Care Teacher Assistant Name | Role | Phone | [...] + | 08/28/ | Telephone | [facility] | Patrick Gaffney MD [address] | Results | | 2012 | | NEUROLOGY [place] | [facility] | | | | | [address] [facility], | [address] [place], | | | | | [address] [place] | [place] [address] | | | | | [place] [address] | [phone] | | | | | [phone] | | | +--------+ + + + [...] | | | | | | [place] [address] | | | | | | [phone] | | | | | | | | +--------+---------+ + + + | 07/30/ | Office | Cardiology | Agata Tinajero DO | | | 2019 | Visit | | [address] | | | | | | [place] | | | | | | [address] | | | | | | | | +--------+---------+ + + + documented as of this encounter Visit Diagnoses Not on filedocumented in this encounter"
--- OUTSIDE RECORDS SUMMARY | ~2019-05-12 | XMS | Encounter Summary ---
Demographics + + + | Address | [address] | | | [place] [address] | + + + | Home Phone [...] [place], | | | | | [place] [address] | | + + + + + | Kellen Briones | ECON | [place], [place] | | | | | [address] | | + + + + + Care Team Providers + +------+ + | Care Plastic Press Molder Name | Role | Phone | [...] (Primary Dx); DDD | | | | [place], | [place], [place] | (degenerative disc | | | | [place] [address] | [address] | disease), lumbar; | | | | [phone] | | 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; | | | | | | Spinal stenosis of | | | | | | lumbar region with | | | | | | mmcrrmakodlid-B1-D5 | | | | | | level moderately | | | | | | severe; Facet | | | | | | arthritis of lumbar | | | | | | region-Most severe | | | | | | at L4-L5,L5-S1; MS | | | | | | (myocardial | | | | | | infarction) ([facility]); | | | | | | Cancer ([facility]); | | | | | | Diabetes mellitus | | | | | | ([facility]); Coronary | | | | | | [...] our off ice. Please also provide a furniture mover driver to take you home on the [...] has actually been seeing Dr. Jordan in [facility] the neck issues and will be [...] 4. Spinal stenosis of lumbar region with scgezeuqsmwdq-D6-E0 level moderately severe 5. Facet arthritis of [...] x-rays of t he lumbar spine at [facility]. I will request these be placed on I-site. She h as previously seen Dr. Real and has been in contact with Dr. Becerril's office in the [facility]. I would be happy to provide a formal referral if needed. documented in this encounter Plan of Treatment +--------+---------+ + + + | Date | Type | Specialty | Care Team | Description | +--------+---------+ + + + | 05/14/ | Office | Orthopedic Surgery | Monster White MD | | | 2019 | Visit | | [address] | | | | | | [place], | | | | | | [place] [address] | | | | | | [phone] | | | | | | | | +--------+---------+ + + + | 07/30/ | Office | Cardiology | Agata Tinajero DO | | | 2019 | Visit | | [address] | | | | | | [place] | | | | | | [address] | | | | | | | [...] | Spinal stenosis of lumbar region with clcojrzephnmj-F8-G7 level moderately severe | | Spinal stenosis, lumbar region, without neurogenic claudication | + + | 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
--- OUTSIDE RECORDS SUMMARY | ~2019-05-12 | XMS | Encounter Summary ---
Demographics + + + | Address | [address] | | | [place] [address] | + + + | Home Phone [...] [place], | | | | | [place] [address] | | + + + + + | Kellen Briones | ECON | [place], [place] | | | | | [address] | | + + + + + Care Team Providers + +------+ + | Care Industrial Pharmacist Name | Role | Phone | + +------+ + | Anna De Guzman PA-C | PCP | | + +------+ + Encounter Details +--------+ + + + + | Date | Type | Department | Care Team | Description | +--------+ + + + + | 10/21/ | Hospital | [facility] | IsakkaydenkaileekT mathis | | | 2012 | Encounter | MED CTR XRAY [address] | [address], [address] | | | | | [place] | [place], [place] | | | | | [place] [address] | [id number] | | | | | [phone] | | | +--------+ + + + [...] | 2020 | Visit | | [address] | | | | | | [place] | | | | | | [place] [address] | | | | | | [phone] | | | | | | | | +--------+---------+ + + + | 07/30/ | Office | Cardiology | Agata Tinajero DO | | | 2019 | Visit | | [address] | | | | | | [place] | | | | | | [address] | | | | | | | [...] At | + + + | [facility] Diagnostic Imaging | [place] | | Department [address] [place] [address] | [facility] | | [ rep [address]] [ rep [facility] | | st zip] Signed | - IMAGING | | | | | Patient Name: CLEMENTINE NUNEZ Physician: | | | WILFREDO. : 1940 Age: 72 Sex: F Unit #: [id number] | | | Exam Date: 10/21/12 Location: [facility] | | | Report #: [id number] Page: | | | %(RAD)RES..mtdd.print.filter("pg") of %(RAD) | | | RES..mtdd.print.filter("tpg") | | | | | | Accession Number: [id number] | | | PROCEDURE NOTE EPIDURAL STEROID [...] | | | Transcribed Date/Time: 10/21/2012 18:52 Maintenance Clerk: | | | <<Signature on File>> | | | Tk Monreal | | | MD Marissa11/07/12 4086 <Electronically signed by Tk Monreal | | | Marissa ALVARADO> Tk Ann MD 10/21/12 2024 | | | Maintenance Clerk: [email or web address].[email or web address] Pflkntwuudwfu22/21/13 6111 | | | | | + + + + + + + + | Performing | Address | City/State/Zipcode | Phone Number | | Organization | | | | + + + + + | [facility]. | [address] | [place] | [phone] | | [facility] | | [address] | | | - IMAGING | | | | + + + + + documented in this encounter Visit Diagnoses Not on filedocumented in this encounter
--- OUTSIDE RECORDS SUMMARY | ~2019-05-12 | XMS | Encounter Summary ---
Demographics + + + | Address | [address] | | | [place] [address] | + + + | Home Phone [...] [place], | | | | | [place] [address] | | + + + + + | Kellen Briones | ECON | [place] | | | | | [address] | | + + + + + Care Team Providers + +------+ + | Care Green Building Energy Engineer Name | Role | Phone | + +------+ + | Barb Marte | PCP | | + +------+ + Encounter Details +--------+ + + + + | Date | Type | Department | Care Team | Description | +--------+ + + + + | 01/31/ | Hospital | [facility] GENER[facility] IP | Conversion | Pain | | 2018 | Encounter | CONVERSION [address] | Transaction, | | | | | [address] | Provider Unknown | | | | | [place], [place] | [phone] | | | | | [address] | | | | | | [phone] | | | +--------+ + + + [...] | | | | | | [place] [address] | | | | | | [phone] | | | | | | | | +--------+---------+ + + + | 07/30/ | Office | Cardiology | Agata Tinajero DO | | | 2019 | Visit | | [address] | | | | | | [place] | | | | | | [address] | | | | | | | [...]
--- OUTSIDE RECORDS SUMMARY | ~2019-05-12 | XMS | Encounter Summary ---
Demographics + + + | Address | [address] | | | [place] [address] | + + + | Home Phone [...] [place], | | | | | [place] [address] | | + + + + + | Kellen Briones | ECON | [place] | | | | | [address] | | + + + + + Care Team Providers + +------+ + | Care Glass Furnace Tender Name | Role | Phone | [...] | unspecified whether | | | | [place], [place] | [place] [address]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 | | | | [address] | [phone] | claudication present | | | | [phone] | | (Primary Dx); DDD | | [...] | | | | | | [place] [address] | | | | | | [phone] | | | | | | | | +--------+---------+ + + + | 07/30/ | Office | Cardiology | Agata Tinajero DO | | | 2019 | Visit | | [address] | | | | | | [place] | | | | | | [address] | | | | | | | | +--------+---------+ + + + + +------+--------+ + + | Name | [...]
--- OUTSIDE RECORDS SUMMARY | ~2019-05-12 | XMS | Encounter Summary ---
Demographics + + + | Address | [address] | | | [place] [address] | + + + | Home Phone [...] [place], | | | | | [place] [address] | | + + + + + | Kellen Briones | ECON | [place], [place] | | | | | [address] | | + + + + + Care Team Providers + +------+ + | Care Gauge Maker Name | Role | Phone | [...] [address] | [address] [place], [place] | (Primary Dx); | | | | [place], [place] | [address] | Cerebrovascular | | | | [address] | | accident (CVA), | | | | [phone] | | unspecified | | | | [...] involving | | | | | | rincon coronary | | | | | | artery of rincon | | | | | | heart without angina | | | | | | pectoris; 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 | | | | | | without complication | | | | | | ([facility]); Essential | | | | | | hypertension, | | | | | | hypertension with | | | | | | unspecified goal; | | | | | | Syncope and | | | | | | collapse; Cancer | | | | | | ([facility]); 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| | hyperlipidemia; ST | | | | | | elevation myocardial | | | | | | infarction (STEMI), | | | | | | unspecified artery | | | | | | ([facility]); | | | | | | Gastroesophageal [...] with | | | | | | bedbkibwnhjpt-Q7-U8 | | | | | | level [...] | | | | ([facility]); DDD | | | | | | [...] | 2018 | Visit | | [address] | | | | | | [place] | | | | | | [place] [address] | | | | | | [phone] | | | | | | | | +--------+---------+ + + + | 07/30/ | Office | Cardiology | Agata Tinajero DO | | | 2020 | Visit | | [address] | | | | | | [place] | | | | | | [address] | | | | | | | [...] PA and Lateral Chest COMPARISON: None. | [facility] | | FINDINGS: Sternal wires and mediastinal [...] + | [facility] | [address] | [place] | [phone] | | [facility] | | [address] | | | - IMAGING | | [...] mL/min/1.73m2 | [facility] | | | IVORIAN | RATE,ESTIMATED | | MEDICAL | | | | mL/min/1.45n8Wcxa than | | CENTER - | | [...] ST. | [address] | [place] | [phone] | | [facility] | | [address] | | | - LABORATORY | | [...] [address] | [place] | [phone] | | [facility] | | [address] | | | - LABORATORY | | [...] ST. | [address] | [place], [place] | [phone] | | [facility] | | [address] | | | - LABORATORY | | [...] ST. | [address] | [place], [place] | [phone] | | [facility] | | [address] | | | - LABORATORY | | [...] | | | | CYNTHIA KIRBY MD ([id number]) | | | | | | on [...] + + | Coronary artery disease involving rincon coronary artery of rincon heart without | | angina pectoris | [...] | Spinal stenosis of lumbar region with kfsrfzgunzqop-W4-R3 level moderately severe | | Spinal stenosis, [...]
--- OUTSIDE RECORDS SUMMARY | ~2019-05-12 | XMS | Encounter Summary ---
Demographics + + + | Address | [address] | | | [place] [address] | + + + | Home Phone [...] [place], | | | | | [place] [address] | | + + + + + | Kellen Briones | ECON | [place], [place] | | | | | [address] | | + + + + + Care Team Providers + +------+ + | Care Fountain Supervisor Name | Role | Phone | [...] + + | 08/14/ | Telephone | [facility] | Patrick Gaffney MD [address] | Other | | 2012 | | NEUROLOGY [place] | [facility] | | | | | [address] [facility], | [address] [place], | | | | | [address] [facility] | [place] [address] | | | | | [place] [address] | [phone] | | | | | [phone] | | | +--------+ + + + [...] | | | | | | [place] [address] | | | | | | [phone] | | | | | | | | +--------+---------+ + + + | 07/30/ | Office | Cardiology | Agata Tinajero DO | | | 2019 | Visit | | [address] | | | | | | [place] | | | | | | [address] | | | | | | | | +--------+---------+ + + + documented as of this encounter Visit Diagnoses Not on filedocumented in this encounter"
--- OUTSIDE RECORDS SUMMARY | ~2019-05-12 | XMS | Encounter Summary ---
Demographics + + + | Address | [address] | | | [place] [address] | + + + | Home Phone [...] [place], | | | | | [place] [address] | | + + + + + | Kellen Briones | ECON | [place], [place] | | | | | [address] | | + + + + + Care Team Providers + +------+ + | Care Automatic Pilot Mechanic Name | Role | Phone | [...] | | | | | | | [place] | | | | | | [...] + + | 03/30/ | Hospital | [facility] | Irving Becerril, | | | 2016 - | Encounter | MED CTR SURGICAL | DO [address] | | | | | [address] [place] | [address] | | | 03/31/ | | [place] [address] | [id number] | | | 2015 | | [phone] | | | +--------+ + + + [...] Admitting Physician: Irving Becerril DO [facility] Discharging Physician: NARESH Valverde Primary Discharge Dx: <principal problem not specified> Secondary Discharge Dx: Patient Active Problem List Diagnosis Cervical stenosis of spinal canal Spondylolisthesis of cervical region Arthritis Leg pain, bilateral Lumbago Trochanteric bursitis of right hip Right hip pain Stroke of unknown etiology Coronary artery disease Diabetes mellitus - ORAL Control Hypertension Stroke Syncope and collapse Cancer Hyperlipidemia TN (myocardial infarction) GERD (gastroesophageal reflux disease) Asthma Spondylolisthesis of lumbar region Lumbar radiculopathy DDD (degenerative disc disease), lumbar Spinal stenosis of lumbar region with xklumymknrocj-Z7-J3 level moderately severe Facet arthritis of lumbar region-Most severe at L4-L5,L5-S1 Snoring Chronic narcotic use Neck pain on right side Facet arthritis of cervical region DDD (degenerative disc disease), cervical H/O Syncope & collape H/O CVA/stroke H/O TN (myocardial infarction) H/O Breast cancer - Right [...] of admission the patient was admitted to [facility] and underwent a C3-C7 fusion. Patient was [...] Electronically signed by: Chavo Jacob, 03/31/2016 7:59 [facility] documented in this encounter Discharge Instructions Instructions RicciMerle hawk Janet, URBAN ANTHROPOLOGIST - 03/31/2016Discharge Instructions for Cervical Fusion You [...] t raise your hands over your head npv6lgdv(s)after your surgery. Don t drive until your [...] this your 1 month post op appointment. [id number] [employer]. [address] [place] [address]. All righ ts reserved. This information is not intended as a substitute for professional medical care. Always follow your healthcare professional's instructions. If you would like Home Health: Call [facility] at [phone] documented in this encounter Medications at Time [...] [place] NEUROSURGERY PROGRESS NOTE Pt. Name/Age/: Clementine Winchester [...] signed by: Chavo Jacob, 03/31/2016 7:48 [facility] documented in this encounter Plan of Treatment [...] | | | | | | [place] [address] | | | | | | [phone] | | | | | | | | +--------+---------+ + + + | 07/30/ | Office | Cardiology | Agata Tinajero DO | | | 2019 | Visit | | [address] | | | | | | [place] | | | | | | [address] | | | | | | | [...] [address] | [place] | [phone] | | [facility] | | [address] | | | - LABORATORY | | | | + + + + + KALPESH PatrickHiram Booht No Charge (03/30/2016 4:25 PM PDT) + [...] + | [facility] | [address] | [place] | [phone] | | [facility] | | [address] | | | - LABORATORY | | [...] | [place] | | | [facility] | | [address] | | | - BLOOD BANK | [...]
--- OUTSIDE RECORDS SUMMARY | ~2019-05-12 | XMS | Encounter Summary ---
Demographics + + + | Address | [address] | | | [place] [address] | + + + | Home Phone [...] [place], | | | | | [place] [address] | | + + + + + | Kellen Briones | ECON | [place], [place] | | | | | [address] | | + + + + + Care Team Providers + +------+ + | Care Senior Net Programmer Name | Role | Phone | [...] + + | 05/11/ | Office | [facility] | Tk Ann | Neck pain on right | | 2012 | Visit | PHYSIATRY [address] | [address] | side (Primary Dx); | | | | [place], | [place], [place] | Facet arthritis of | | | | [place] [address] | [address] | cervical region; DDD | | | | [phone] | | (degenerative disc | | | [...] with | | | | | | mfknfenclddqx-L5-T5 | | | | | | level [...] of the procedure you must provide a otr company driver to take you home. For all [...] had actually been seeing Dr. Jordan in [place] for the neck issues and was scheduled [...] tablet Take 1-2 tablets by mouth 3 traic es daily. metFORMIN (GLUCOPHAGE) 500 mg tablet [...] 8. Spinal stenosis of lumbar region with xjfzuhrjaxjma-G3-C4 level moderately severe 9. Facet arthritis of [...] x-rays of the lumbar spine at [facility]. I will reques t these be placed on I-site. She has previously seen Dr. Real and has been in contact with Dr. Becerril's office in the past. I would be [...] | | | | | | [place] [address] | | | | | | [phone] | | | | | | | | +--------+---------+ + + + | 07/30/ | Office | Cardiology | Agata Tinajero DO | | | 2019 | Visit | | [address] | | | | | | [place] | | | | | | [address] | | | | | | | [...] | Spinal stenosis of lumbar region with qnpxpepqxkjnd-R6-E1 level moderately severe | | Spinal stenosis, lumbar region, without neurogenic claudication | + + | Facet arthritis of lumbar region-Most severe at L4-L5,L5-S1 Lumbosacral spondylosis | | without myelopathy | + + | Chronic narcotic use Other, mixed, or unspecified nondependent drug abuse, | | unspecified | + + documented in this encounter
--- OUTSIDE RECORDS SUMMARY | ~2019-05-12 | XMS | Encounter Summary ---
Demographics + + + | Address | [address] | | | [place] [address] | + + + | Home Phone [...] [place], | | | | | [place] [address] | | + + + + + | Kellen Briones | ECON | [place] | | | | | [address] | | + + + + + Care Team Providers + +------+ + | Care Light Cleaner Name | Role | Phone | [...] + + | 04/02/ | Office | [facility] | Agata Tinajero DO | Atherosclerosis of | | 2019 | Visit | CARDIOLOGY [place] | [address] | [place] coronary | | | | [address] | [place], [place] | artery of [place] | | | | [address] | [id number] | heart without angina | | | | [place] | | pectoris (Primary | | | | [address] | | Dx); Essential | | | | [phone] | | hypertension; | | | | [...] Agata Tinajero, - 04/02/2019 2:00 PM PDT [facility] Cardiology Cardiology Follow Up Note Reason for Consultation: Chest pain Requesting Physician: Barb Marte History Obtained From: patient HISTORY OF PRESENT ILLNESS: Cardiac Problem List 1. CAD s/p CABGx4 in [facility] 2009 S/P WEBSTER to LAD, SVG-OM1, OM2, [...] proximal segment and was filling distally via ldli-to-kixdt collaterals. LEFT VENTRICULOGRAM Left ventriculogram revealed normal left ventricular systolic function with ejection fraction of 60% with severe posterobasal hypokinesis. Carotid US: AAA screening: Lower extremity US: OTHERS: ASSESSMENT & PLAN 1. Pre operative cardiovascular exam 2. CAD s/p CABGx4 in [facility] 2009 S/P WEBSTER to LAD, SVG-OM1, OM2, PDA 2009 3. HTN 4. History CVA 5. HLD 6. DM II 7. Arthritis 8. Asthma 9. Chronic pain 10. DDD 11. GERD 12. History right breast CA s/p mastectomy and chemo - The patient is a 78-year-old female with the above past medical history who presents to [facility] for follow up. She has [...] | 2018 | Visit | | [address] | | | | | | [place], | | | | | | [place] [address] | | | | | | [phone] | | | | | | | | +--------+---------+ + + + | 07/30/ | Office | Cardiology | Agata Tinajero DO | | | 2019 | Visit | | [address] | | | | | | [place] | | | | | | [address] | | | | | | | | +--------+---------+ + + + documented as of this encounter Visit Diagnoses + + | Diagnosis | + + | Atherosclerosis of [place] coronary artery of [place] heart without angina pectoris - | | Primary | + + | Essential hypertension Unspecified essential hypertension | + + | Cerebrovascular accident (CVA), unspecified mechanism (HCC) | + + | Other hyperlipidemia | + + | H/O CABG (coronary artery bypass graft) Postsurgical aortocoronary bypass status | + + documented in this encounter
--- OUTSIDE RECORDS SUMMARY | ~2019-05-12 | XMS | Encounter Summary ---
Demographics + + + | Address | [address] | | | [place] [address] | + + + | Home Phone [...] [place], | | | | | [place] [address] | | + + + + + | Kellen Briones | ECON | [place], [place] | | | | | [address] | | + + + + + Care Team Providers + +------+ + | Care Recruiting Coordinator Name | Role | Phone | [...] + + | 03/27/ | Telephone | [facility] | Monster White MD | Imaging | | 2019 | | NEUROSCIENCE CENTER | [address] | | | | | ORTHOPEDIC SPINE | [place] | | | | | [address] [place] | [place] [address] | | | | | [place] | [phone] | | | | | [address] | | | | | | [phone] | | | +--------+ + + + [...] | | | | | [place] [address] | | | | | | [phone] | | | | | | | | +--------+---------+ + + + | 07/30/ | Office | Cardiology | Agata Tinajero DO | | | 2019 | Visit | | [address] | | | | | | [place] | | | | | | [address] | | | | | | | | +--------+---------+ + + + documented as of this encounter Visit Diagnoses Not on filedocumented in this encounter"
--- OUTSIDE RECORDS SUMMARY | ~2019-05-12 | XMS | Encounter Summary ---
Demographics + + + | Address | [address] | | | [place] [address] | + + + | Home Phone [...] [place], | | | | | [place] [address] | | + + + + + | Kellen Briones | ECON | [place], [place] | | | | | [address] | | + + + + + Care Team Providers + +------+ + | Care Ensemble Member Name | Role | Phone | + [...] + + | 06/19/ | Office | [facility] | Suricz, | Lumbar radiculopathy | | 2017 | Visit | PHYSIATRY [address] | [address] | (Primary Dx); | | | | [place], | [facility], | Spinal stenosis of | | | | [place] [address] | [place] [address] | lumbar region with | | | | [phone] | [phone] | rmuwcbzrkvfcb-I0-O7 | | | | | | level [...] of blood sugars if you are diabetic. machine assembler risk can lead to osteoporosis which is [...] of the procedure you must provide a haul truck driver to take you home. For [...] and narcotic medications use; she currently uses [place], Flexeril and [place] bapentin. She just underwent [...] apparent deficits with short or penitentiary memory. She has appropriate fund of knowledge [...] 2. Spinal stenosis of lumbar region with othcxkxuchyet-F0-V7 level moderately severe 3. DDD (degenerative disc [...] | | | | | | [place] [address] | | | | | | [phone] | | | | | | | | +--------+---------+ + + + | 07/30/ | Office | Cardiology | Agata Tinajero DO | | | 2019 | Visit | | [address] | | | | | | [place] | | | | | | [address] | | | | | | | | +--------+---------+ + + + documented as of this encounter Results [place] BAUTISTA Lumbar Transforaminal (06/27/2016 2:59 PM PST) + + | Specimen | + + | | + + + + + | Narrative | Performed At | + + + | 06/27/2016 Bilateral Transforaminal Epidural Steroid Injections | [facility] | | Diagnosis: Lumbar radiculopathy ICD-10 Code M54.16 Clementine | [facility] | | Lizett Winchester presents to the fluoroscopy suite for [facility] | | fluoroscopically-guided bilateral L5-S1 transforaminal [...] | + + + + + | [facility] | [address] | [place] | [phone] | | [facility] | | [address] | | | - IMAGING | | | | + + + + + documented in this encounter Visit Diagnoses + + | Diagnosis | + + | Lumbar radiculopathy - Primary Thoracic or lumbosacral neuritis or radiculitis, | | unspecified | + + | Spinal stenosis of lumbar region with ommndsirieajj-E7-E9 level moderately severe | | Spinal stenosis, [...]
--- OUTSIDE RECORDS SUMMARY | ~2019-05-12 | XMS | Encounter Summary ---
Demographics + + + | Address | [address] | | | [place] [address] | + + + | Home Phone [...] [place], | | | | | [place] [address] | | + + + + + | Kellen Briones | ECON | [place] | | | | | [address] | | + + + + + Care Team Providers + +------+ + | Care Hostess Cashier Name | Role | Phone | + +------+ + | Barb Marte | THANG | | + +------+ + Encounter Details +--------+ + + + + | Date | Type | Department | Care Team | Description | +--------+ + + + + | 01/17/ | Imaging | LUIS MANUELNDJosiane CARLOS REINALDO | Provider, | | | 2018 | Exam | MED CTR EXTERNAL | MD [address] | | | | | IMAGING | [place] | | | | | [phone] | [place] [address] | | +--------+ + + + + [...] | | | | | | [place] [address] | | | | | | [phone] | | | | | | | | +--------+---------+ + + + | 07/30/ | Office | Cardiology | TinajeroAgata joshiDO | | | 2019 | Visit | | [address] | | | | | | [place] | | | | | | [address] | | | | | | | [...]
--- OUTSIDE RECORDS SUMMARY | ~2019-05-12 | XMS | Encounter Summary ---
Demographics + + + | Address | [address] | | | [place] [address] | + + + | Home Phone [...] [place], | | | | | [place] [address] | | + + + + + | Kellen Briones | ECON | [place], [place] | | | | | [address] | | + + + + + Care Team Providers + +------+ + | Care Sap Security Consultant Name | Role | Phone | [...] pain, | MD [address] | | | | | bilateral | [address] | [address] [place] | | | | | Procedures | [place], | [place], [place] | | | | | MRI Lumbar | [place] [address] | [address] | | | | | Spine wo | Phone: | Phone: | | | | | Contrast | [phone] | [phone] | | | | | | [phone] Fax: | Fax: | | | | | | | [phone] | | | | | | [phone] | | +--------+--------+ + + + + Consultation (Urgent) +--------+ + + + + + | Status | Reason | Specialty | Diagnoses / | Referred By | Referred To | | | | | Procedures | Contact | Contact | +--------+ + + + + + | Closed | Specialty | Neurology | Diagnoses | Real, | Donta, | | | Services | | Stroke of | Ramon Steinberg, | Chris Joshua MD | | | Required | | unknown | [address] | [address] | | | | | etiology | [address] | [place] | | | | | ([facility]) | [place], | [place], [place] | | | | | | [place] [address] | [address] | | | | | | Phone: | Phone: | | | | | | [phone] | [phone] | | | | | | [phone] Fax: | Fax: | | | | | | | [phone] | | | | | | [phone] | | +--------+ + + + + [...] | | n | spinal canal | [address] | [address] [place] | | | | | | [place], | [place], [place] | | | | | Spondylolist | [place] [address] | [address] Phone: | | | | | hesis of | Phone: | [phone] | | | | | cervical | [phone] | Fax: | | | | | region | [phone] Fax: | [phone] | | | | | Right hip | | | | | | | pain | [phone] | | | | | | Trochanteric [...] + + | 06/04/ | Office | [facility] | Ramon Real | Cervical stenosis of | | 2012 | Visit | NEUROSURGERY [address] | MD Idris [address] | spinal canal | | | | [address] | St [place], [place] | (Primary Dx); | | | | [place], [place] | [address] | Spondylolisthesis of | | | | [address] | [phone] | cervical region; | | | | [phone] | | Right hip pain; | | | | | | Trochanteric | | | | | | bursitis of right | | | | | | hip; Lumbago; Leg | | | | | | pain, bilateral; | | | | | | Arthritis; Stroke of | | | | | | unknown etiology | | | | | | ([facility]); | | | | | | Spondylolisthesis [...] 06/04/2012 3:46 PM PSTWe will notify you w nixon we obtain the studies from [facility] documented in this encounter Progress Notes Ramon Real MD - 06/04/2012 3:46 PM PSTFormatting of this note might be differen t from the original. Ramon Real MD [address] [facility], [address] [place], [place] [id number] FAX: NEUROSURGERY HISTORY AND PHYSICAL EXAMINATION CHIEF [...] evaluati on in the emergency department at [facility]. Apparently a CT scan not available to [...] Stroke Syncope and collapse Cancer Breast Hyperlipidemia VT (myocardial infarction) GERD (gastroesophageal reflux disease) Asthma [...] Intrinsics 5 5 Ulnar Intrinsics 5 5 Raw Stock Machine Feeder Strength 4 (35#) 4+ (40#) Hip Flexion [...] Hypertension Stroke Syncope and collapse Cancer Hyperlipidemia VT (myocardial infarction) GERD (gastroesophageal reflux disease) Asthma GENERAL DIAGNOSES: Past Medical History Diagnosis Date Coronary artery disease Diabetes mellitus Hypertension Stroke Syncope and collapse Cancer Breast Hyperlipidemia VT (myocardial infarction) GERD (gastroesophageal reflux disease) Asthma [...] imagi ng studies which were obtained at [facility] to facilitate that. Once we have his [...] diagnosis, discussing options for her care, an d coordinating her care. ELECTRONICALLY SIGNED BY: Ramon Real MD, 06/04/2012 17:25 documented in this encounter Plan of Treatment +--------+---------+ + + + | Date | Type | Specialty | Care Team | Description | +--------+---------+ + + + | 06/04/ | Office | Orthopedic Surgery | Monster White MD | | | 2019 | Visit | | [address] | | | | | | [place] | | | | | | [place] [address] | | | | | | [phone] | | | | | | | | +--------+---------+ + + + | 07/30/ | Office | Cardiology | Agata Tinajero DO | | | 2019 | Visit | | [address] | | | | | | [place] | | | | | | [address] | | | | | | | [...]
--- OUTSIDE RECORDS SUMMARY | ~2019-05-12 | XMS | Encounter Summary ---
Demographics + + + | Address | [address] | | | [place] [address] | + + + | Home Phone [...] [place], | | | | | [place] [address] | | + + + + + | Kellen Briones | ECON | [place], [place] | | | | | [address] | | + + + + + Care Team Providers + +------+ + | Care Nurse Sexual Assault Name | Role | Phone | + [...] + + | 04/21/ | Telephone | [facility] | Monster White MD | Follow-up | | 2019 | | NEUROSCIENCE CENTER | [address] | (appointment) | | | | ORTHOPEDIC SPINE | [place] | | | | | [address] [place] | [place] [address] | | | | | [place] | [phone] | | | | | [address] | | | | | | [phone] | | | +--------+ + + + [...] | | | | | | [place] [address] | | | | | | [phone] | | | | | | | | +--------+---------+ + + + | 07/30/ | Office | Cardiology | Agata Tinajero DO | | | 2019 | Visit | | [address] | | | | | | [place] | | | | | | [address] | | | | | | | | +--------+---------+ + + + documented as of this encounter Visit Diagnoses Not on filedocumented in this encounter"
--- OUTSIDE RECORDS SUMMARY | ~2019-05-12 | XMS | Encounter Summary ---
Demographics + + + | Address | [address] | | | [place] [address] | + + + | Home Phone [...] [place], | | | | | [place] [address] | | + + + + + | Kellen Briones | ECON | [place], [place] | | | | | [address] | | + + + + + Care Team Providers + +------+ + | Care Slide Fastener Chain Assembler Name | Role | Phone | [...] + + | 03/27/ | Telephone | [facility] | Monster White MD | Imaging | | 2019 | | NEUROSCIENCE CENTER | [address] | | | | | ORTHOPEDIC SPINE | [place] | | | | | [address] [place] | [place] [address] | | | | | [place] | [phone] | | | | | [address] | | | | | | [phone] | | | +--------+ + + + [...] | | | | | [place] [address] | | | | | | [phone] | | | | | | | | +--------+---------+ + + + | 07/30/ | Office | Cardiology | Agata Tinajero DO | | | 2019 | Visit | | [address] | | | | | | [place] | | | | | | [address] | | | | | | | | +--------+---------+ + + + documented as of this encounter Visit Diagnoses Not on filedocumented in this encounter"
--- OUTSIDE RECORDS SUMMARY | ~2019-05-12 | XMS | Encounter Summary ---
Demographics + + + | Address | [address] | | | [place] [address] | + + + | Home Phone [...] [place], | | | | | [place] [address] | | + + + + + | Kellen Briones | ECON | [place] | | | | | [address] | | + + + + + Care Team Providers + +------+ + | Care Director Staffing Name | Role | Phone | + +------+ + | Barb Marte | THANG | | + +------+ + Encounter Details +--------+ + + + + | Date | Type | Department | Care Team | Description | +--------+ + + + + | 04/09/ | Hospital | [facility] | Monster White MD | Lumbar stenosis with | | 2019 | Encounter | MED CTR XRAY [address] | [address]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 | | | | [place] | [place], | claudication | | | | [place] [address] | [place] [address] | | | | | [phone] | [phone] | | | | | | | [...] | | | | | | [place] [address] | | | | | | [phone] | | | | | | | | +--------+---------+ + + + | 07/30/ | Office | Cardiology | Agata Tinajero DO | | | 2019 | Visit | | [address] | | | | | | [place] | | | | | | [address] | | | | | | | [...] Dictated and | | | Signed by: Jutso Norton MD Electronically signed: 04/09/2019 2:39 | [...]
--- OUTSIDE RECORDS SUMMARY | ~2019-05-12 | XMS | Encounter Summary ---
Demographics + + + | Address | [address] | | | [place] [address] | + + + | Home Phone [...] + + + + + | Lucy Wnichester | ECON | [place], | | | | | [place] [address] | | + + + + + | Kellen Briones | ECON | [place] | | | | | [address] | | + + + + + Care Team Providers + +------+ + | Care Customs Examiner Name | Role | Phone | [...] | unspecified whether | | | | [place], [place] | [place] [address]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 | | | | [address] | [phone] | claudication present | | | | [phone] | | (Primary Dx); DDD | | [...] | | | | | | [place] [address] | | | | | | [phone] | | | | | | | | +--------+---------+ + + + | 07/30/ | Office | Cardiology | Agata Tinajero DO | | | 2019 | Visit | | [address] | | | | | | [place] | | | | | | [address] | | | | | | | [...]
--- OUTSIDE RECORDS SUMMARY | ~2019-05-12 | XMS | Encounter Summary ---
Demographics + + + | Address | [address] | | | [place] [address] | + + + | Home Phone [...] [place], | | | | | [place] [address] | | + + + + + | Kellen Briones | ECON | [place], [place] | | | | | [address] | | + + + + + Care Team Providers + +------+ + | Care Manufacturing Quality Inspector Name | Role | Phone | + +------+ + | Anna De Guzman PA-C | PCP | | + +------+ + Encounter Details +--------+ + + + + | Date | Type | Department | Care Team | Description | +--------+ + + + + | 03/07/ | Hospital | [facility] | Irving Becerril, | Stroke of unknown | | 2016 | Encounter | MED CTR XRAY [address] | DO [address] | etiology ([facility]); | | | | [place] | [address] [place], [place] | Cerebrovascular | | | | [place] [address] | [address] | accident (CVA), | | | | [phone] | | unspecified | | | | | Caleb San MD | mechanism (HCC); | | | | | [address] | Lumbar | | | | | [place], [place] | radiculopathy; | | | | | [address] | Cervical stenosis of | | | [...] involving | | | | | | jackson coronary | | | | | | artery of jackson | | | | | | heart without angina | | | | | | pectoris; 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 | | | | | | without complication | | | | | | ([facility]); Essential | | | | | | hypertension; | | | | | | Syncope and | | | | | | collapse; Cancer | | | | | | ([facility]); 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| | hyperlipidemia; ST | | | | | | elevation myocardial | | | | | | infarction (STEMI), | | | | | | unspecified artery | | | | | | ([facility]); | | | | | [...] with | | | | | | twovmmumdeqkj-K7-G0 | | | | | | level [...] region | | | | | | ([facility]); DDD | | | | [...] | | | | | | [place] [address] | | | | | | [phone] | | | | | | | | +--------+---------+ + + + | 07/30/ | Office | Cardiology | Agata Tinajero DO | | | 2019 | Visit | | [address] | | | | | | [place] | | | | | | [address] | | | | | | | [...] involving | | | | | | jackson coronary | | | | | | artery of jackson | | | | | | heart [...] with | | | | | | qhdyoeknipdtn-U3-Z9 | | | | | | level [...] region | | | | | | ([facility]) DDD | | | | | | [...] PA and Lateral Chest COMPARISON: None. | [facility] | | FINDINGS: Sternal wires and [...] [address] | [place] | [phone] | | [facility] | | [address] | | | - IMAGING | | [...] + + | Coronary artery disease involving jackson coronary artery of jackson heart without | | angina pectoris | [...] | Spinal stenosis of lumbar region with uczrkuonfcrbk-Z5-Z8 level moderately severe | | Spinal stenosis, [...]
--- OUTSIDE RECORDS SUMMARY | ~2019-05-12 | XMS | Encounter Summary ---
Demographics + + + | Address | [address] | | | [place] [address] | + + + | Home Phone [...] [place], | | | | | [place] [address] | | + + + + + | Kellen Briones | ECON | [place], [place] | | | | | [address] | | + + + + + Care Team Providers + +------+ + | Care University Librarian Name | Role | Phone | + [...] SANDR[address] | FMD [address] | | | | | [address] | [place], [place] | | | | | [place], [place] | [address] | | | | | [address] | [phone] | | | | | [phone] | | | +--------+ + + + [...] | 2019 | Visit | | [address] | | | | | | [place], | | | | | | [place] [address] | | | | | | [phone] | | | | | | | | +--------+---------+ + + + | 07/30/ | Office | Cardiology | Agata Tinajero DO | | | 2019 | Visit | | [address] | | | | | | [place] | | | | | | [address] | | | | | | | | +--------+---------+ + + + documented as of this encounter Visit Diagnoses Not on filedocumented in this encounter"
--- OUTSIDE RECORDS SUMMARY | ~2019-05-12 | XMS | Encounter Summary ---
Demographics + + + | Address | [address] | | | [place] [address] | + + + | Home Phone [...] [place], | | | | | [place] [address] | | + + + + + | Kellen Briones | ECON | [place] | | | | | [address] | | + + + + + Care Team Providers + +------+ + | Care Paint Laboratory Technician Name | Role | Phone [...] [place] | | | | | [phone] | [place] [address] | | +--------+ + + + + [...] | | | | | | [place] [address] | | | | | | [phone] | | | | | | | | +--------+---------+ + + + | 07/30/ | Office | Cardiology | Agata Tinajero DO | | | 2019 | Visit | | [address] | | | | | | [place] | | | | | | [address] | | | | | | | [...]
--- OUTSIDE RECORDS SUMMARY | ~2019-05-12 | XMS | Encounter Summary ---
Demographics + + + | Address | [address] | | | [place] [address] | + + + | Home Phone [...] [place], | | | | | [place] [address] | | + + + + + | Kellen Briones | ECON | [place], [place] | | | | | [address] | | + + + + + Care Team Providers + +------+ + | Care Hockey Player Name | Role | Phone | + [...] Thoracic or | [place], | [address] | | | | | lumbosacral | Tk Monreal MD | [place], | | | | | neuritis or | [address] | [place] | | | | | | ST [place] | [address] | | | | | radiculitis, | [place], [place] | Phone: | | | | | unspecified | [address] | [phone] | | | | | Procedures | Phone: | Fax: | | | | | [place] [facility] | [phone] | [phone] | | | | | ANES/STEROID | Fax: | | | | | | FORAMEN | [phone] | | | | | | LUMBAR/SACRA | | | | | | | L W IMG | | | | | | | GUIDE ,1 | | | | | | | [place] | | | | | | | [...] + + | 02/22/ | Hospital | [facility] | [place], | Spinal stenosis of | | 2014 | Encounter | MED CTR XRAY [address] | [place] [address] | lumbar region with | | | | [place] | [facility], | qzlfhgetpbont-J8-V3 | | | | [place] [address] | [place] [address] | level moderately | | | | [phone] | [phone] | severe; | | | | | | Spondylolisthesis of | | | | | Pantry ChefCandace | lumbar region; | | | | [...] | 2019 | Visit | | [address] | | | | | | [place], | | | | | | [place] [address] | | | | | | [phone] | | | | | | | | +--------+---------+ + + + | 07/30/ | Office | Cardiology | Lior DO Agata | | | 2020 | Visit | | [address] | | | | | | [place] | | | | | | [address] | | | | | | | [...] | | TRANSFORAMINAL | | PDT | zhjwooqlglomy-V6-K7 | results section. | | | | [...] radiculopathy ICD-9 Code 724.4 Clementine Phoenix | [facility] | | Annabella presents to the fluoroscopy suite for fluoroscopically-guided | [facility] | | bilateral L5-S1 transforaminal epidural steroid [...] + + | Performing | Address | City[facility] | Phone Number | | Organization | | | | + + + + + | [address] | [address] | [place] | [phone] | | [facility] | | [address] | | | - IMAGING | | | | + + + + + documented in this encounter Visit Diagnoses + + | Diagnosis | + + | Spinal stenosis of lumbar region with hmprblwzupzud-O0-D4 level moderately severe | | Spinal stenosis, [...]
--- OUTSIDE RECORDS SUMMARY | ~2019-05-12 | XMS | Encounter Summary ---
Demographics + + + | Address | [address] | | | [place] [address] | + + + | Home Phone | | + + + | Preferred Language | Unknown | + + + | Marital Status | Unknown | + + + | Sikh Affiliation | Unknown | + + + | Race | Unknown | + + + | Ethnic Group | Unknown | + + + Author + + + | Author | [facility] | + + + | Organization | [facility] | + + + | Address | Unknown | + + + | Phone | Unavailable | + + + Care Team Providers + +------+ + | Care Dramatic Coach Name | Role | Phone | + [...] | | | | | Center | [place] | | | | | | [place], [place] | [place], [place] | | | | | | [address] | [address] | | | | | | Phone: | Phone: | | | | | | [phone] | [phone] | | | | | | Fax: | Fax: | | | | | | [phone] | [phone] | +--------+--------+ + + + + Encounter Details +--------+ + + + + | Date | Type | Department | Care Team | Description | +--------+ + + + + | 07/25/ | Outside | Neurophysiology | Anna Draper, | | | 2012 | Referral | EEG at [facility] [address] | [place] | | | | Order | [address] | [facility] | | | | | Mailcode: CR120 | [address] [place], | | | | | [facility] | [place] [address] | | | | | [place], [place] | [phone] | | | | | [address] | | | | | | [phone] | | | +--------+ + + + [...] 1940 Medical | | | Record Number: [id number] Date of Test: 07/24/2012 Place of | | | Service: [facility] Department: EEG [facility] - [id number] | | | ROUTINE EEG Indication: evaluate [...] daily Nitrostat 0.4 mg PRN chest pain Pipestem | | | 7.5/325 mg twice daily [...] was performed at . | | | [facility]. EEG Description Interictal Record: The | [...] | | | MD VIRY. Suggested CPT: 25919 - EEG Routine Awake Only | | | Suggested Dx: 348.30 - Encephalopathy, Unspecified | | + + + documented in this encounter Visit Diagnoses Not on filedocumented in this encounter"
--- OUTSIDE RECORDS SUMMARY | ~2019-05-12 | XMS | Encounter Summary ---
Demographics + + + | Address | [address] | | | [place] [address] | + + + | Home Phone [...] [place], | | | | | [place] [address] | | + + + + + | Kellen Briones | ECON | [place], [place] | | | | | [address] | | + + + + + Care Team Providers + +------+ + | Care Corporate Job Titles Name | Role | Phone | + [...] | | | claudication | B | [address] | | | | | Procedures | [place], [place] | Phone: | | | | | MRI Lumbar | [address] | [phone] | | | | | Spine wo | Phone: | Fax: | | | | | Contrast | [phone] | [phone] | | | | | | Fax: | | | | | | | [phone] | | +--------+--------+ + + + + [...] | | | claudication | B | [address] | | | | | Procedures | [place], [place] | Phone: | | | | | CT Lumbar | [address] | [phone] | | | | | Spine wo | Phone: | Fax: | | | | | Contrast | [phone] | [phone] | | | | | | Fax: | | | | | | | [phone] | | +--------+--------+ + + + + [...] | | without | [place], | [place], [place] | | | |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 | [place] [address] | [address] | | | | | claudication | Phone: | Phone: | | | | | lumbar | [phone] | [phone] | | | | | | Fax: | Fax: | | | | | | [phone] | [phone] | + +--------+ + + + + Encounter Details +--------+---------+ + + + | Date | Type | Department | Care Team | Description | +--------+---------+ + + + | 03/19/ | Office | [facility] | Monster White MD | Lumbar stenosis with | | 2019 | Visit | [facility] | [address]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 | | | | ORTHOPEDIC SPINE | [place], | claudication | | | | [address] | [place] [address] | (Primary Dx); | | | | [place] | [phone] | Spondylolisthesis of | | | | [address] | | lumbar region | | | | [phone] | | | +--------+---------+ + + + [...] findings 01/2018 Social History Occupational History 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 Employer: [employer] Tobacco Use Smoking status: [...] reflux disease) Hyperlipidemia Hypertension Lumbar radiculopathy 07/23/2012 [place] (myocardial infarction) (HCC) Neck pain on right side 05/13/2013 Oxygen dependent 2 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 Snoring Spinal stenosis of lumbar region with nqpshntdtcxmo-X7-D9 level moderately severe 2012 Past Surgical History: Procedure Laterality Date BELPHAROPTOSIS REPAIR 2009 bilateral bone spur left foot BREAST RECONSTRUCTION 8780-7203 About 10 surgeries CARPAL TUNNEL RELEASE Bilateral CERVICAL SPINE SURGERY Anterior 03/30/2016 Procedure: C3-4, C4-5, C5-6, C6-7 Anterior Cervical Discectomy w/ Fusion and Plating; Bryan geon: Irving Becerril, DO; Location: [facility] MAIN OR CORONARY ARTERY BYPASS GRAFT 2009 [...] flexors 5 5 Hand intrinsics 5 5 Landscape Artist 5 5 Hip flexors 5 5 Quadriceps [...] Note: We spent approximately 50 minutes in [id number] time of which greater than 50% was [...] | | | | | | [place] [id number] | | | | | | [phone] | | | | | | | | +--------+---------+ + + + | 07/30/ | Office | Cardiology | Agata Tinajero DO | | | 2019 | Visit | | [address] | | | | | | [place] | | | | | | [id number] | | | | | | | [...] effects the | | right side at [id number] it is severe and bilaterally at L5-S1 [...]
--- OUTSIDE RECORDS SUMMARY | ~2019-05-12 | XMS | Encounter Summary ---
Demographics + + + | Address | [address] | | | [place] [address] | + + + | Home Phone [...] [place], | | | | | [place] [address] | | + + + + + | Kellen Briones | ECON | [place], [place] | | | | | [address] | | + + + + + Care Team Providers + +------+ + | Care Retail Client Solutions Analyst Name | Role | Phone | [...] | CONVERSION DEP [address] | | Episd ([facility]) | | | | [address] | | | | 07/14/ | | [place] | | | | 2009 | | [address] | | | | | | [phone] | | | +--------+ + + + [...] | 2018 | Visit | | [address] | | | | | | [place] | | | | | | [place] [address] | | | | | | [phone] | | | | | | | | +--------+---------+ + + + | 07/30/ | Office | Cardiology | Agata Tinajero DO | | | 2019 | Visit | | [address] | | | | | | [place] | | | | | | [phone] | | | | | | | [...] Performed At | + + + | [facility] | | | [facility] [address] | | | , | | | [id number]/RADIOLOGY Patient Name: CLEMENTINE NUNEZ Date of : | | | 1940 Medical Record: [id number] Account: [id number] | | | I/P/CU [id number]/ Exam Date/Time: 07/12/2009 | | | 05:00 [...] good position in the SVC. The prior Canton-Gideon catheter | | | has been removed. [...] 11:16 P | | | P P SLW/dc/[id number]/ | | | cc: MD ANUJ PERLA MD STEVEN L | | | MD MARYANN | | + + + + + | Procedure Note | + + | Nilay Lawrence Conversion - 01/25/2019 5:24 PM PDT | | [facility] | | [facility] [address] | | , | | | | [id number]/RADIOLOGY | | | | Patient Name: CLEMENTINE NUNEZ | | Date of : 1940 | | Medical Record: [id number] | | Account: [id number] | | I/P/CU 13561/ | | | | | | Exam [...] in the SVC. | | The prior Canton-Gideon catheter has been removed. No obvious mediastinal [...] | P | | P | | GLENDY/imtiaz/[id number]/ | | cc: ROSALVA LOZADA MD | | ANUJ GALLEGO MD | | ARAVIND WOLF MD | + + XR Chest 1 Vw (07/10/2009 5:33 AM PST) + + | Specimen | + + | | + + + + + | Narrative | Performed At | + + + | [facility] | | | [facility] [address] | | | , | | | [id number]/RADIOLOGY Patient Name: CLEMENTINE NUNEZ Date of : | | | 1940 Medical Record: [id number] Account: [id number] | | | [place] [address]/ Exam Date/Time: 07/10/2009 | | | 05:00 [...] 09:49 A | | | A A CHARMAINE/britni/[id number]/ | | | cc: MD FAISAL PERLA MD SAAD | | | MD CHRIS | | + + + + + | Procedure Note | + + | Nilay Lawrence Conversion - 01/25/2019 5:24 PM PDT | | [facility] | | [facility] [address] | | , | | | | [id number]/RADIOLOGY | | | | Patient Name: CLEMENTINE NUNEZ | | Date of : 1940 | | Medical Record: [id number] | | Account: [id number] | | I/P/ 58752/ | | | | | | Exam [...] | A | | A | | [facility][id number]/ | | cc: ROSALVA LOZADA MD | | FAISAL RUELAS MD | | ANUJ GALLEGO MD | + + XR Chest 1 Vw (07/09/2009 12:25 PM PST) + + | Specimen | + + | | + + + + + | Narrative | Performed At | + + + | [facility] | | | [facility] [address] | | | , | | | [id number]/RADIOLOGY Patient Name: CLEMENTINE NUNEZ Date of : | | | 1940 Medical Record: [id number] Account: [id number] | | | [facility] / Exam Date/Time: 07/09/2009 | | [...] | overlying the stomach. A right sided Canton-Gideon catheter is seen with | | | [...] 3 cm. 2. Right sided central line, Canton-Gideon | | | catheter, left sided chest [...] P P | | | 05:09 P /[facility]/[id number]/ cc: MD VERONICA PERLA | | | DO ANUJ LOPEZ MD | | + + + + + | Procedure Note | + + | Nilay Lawrence Conversion - 01/25/2019 5:24 PM PDT | | [facility] | | [facility] [address] | | , | | | | [id number]/RADIOLOGY | | | | Patient Name: CLEMENTINE NUNEZ | | Date of : 1940 | | Medical Record: [id number] | | Account: [id number] | | I/P/ALFREDO / | | | [...] the stomach. A right | | sided Canton-Gideon catheter is seen with its tip in [...] | | 2. Right sided central line, Canton-Gideon catheter, left sided chest tube | | [...] | P | | P | | EI/sandra/[id number]/ | | cc: ROSALVA LOZADA MD | [...] that was | | | non-reportable in [employer] system. | | + + + + + | Procedure Note | + + | Nilay Lawrence Conversion - 01/25/2019 5:24 PM PDT See medical record for report. This is | | a converted record that was non-reportable in [employer] system. | + + XR Chest 2 Vws (07/08/2009 12:33 PM PST) + + | Specimen | + + | | + + + + + | Narrative | Performed At | + + + | [facility] | | | [facility] [address] | | | , | | | [id number]/RADIOLOGY Patient Name: CLEMENTINE NUNEZ Date of : | | | 1940 Medical Record: [id number] Account: [id number] | | | I/P/MADIHA [address]/ Exam Date/Time: 07/08/2009 | | | 11:50 [...] 08:59 A | | | P A SCK/dj/[id number]/ | | | cc: JIM SANCHEZ MD | | | ANUJ GALLEGO MD | | + + + + + | Procedure Note | + + | Nilay Lawrence - 01/25/2019 5:24 PM PDT | | [facility] | | [facility] [address] | | , | | | | [id number]/RADIOLOGY | | | | Patient Name: CLEMENTINE NUNEZ | | Date of : 1940 | | Medical Record: [id number] | | Account: [id number] | | I/P/CU 80763/ | | | | | | Exam [...] | P | | A | | OHK/dj/[id number]/ | | cc: JIM SANCHEZ | | MARCIA MOTLEY MD | | ANUJ GALLEGO MD | + + ECHO Complete (07/07/2009 2:30 PM PST) + + | Specimen | + + | | + + + + + | Narrative | Performed At | + + + | [id number] | | | Page 1 ECHO [facility] NAME: | | | CLEMENT[place] [address] MEDICAL RECORD #: | | | [id number] | | | DATE OF : 1940 ORDER | | | NUMBER: [id number] EXAM DATE/TIME: 07/07/2009 13:49 PERFORMING | | [...] 56.72 ml D-E Excursion: 1.44 cm E-F Mccracken: 0.04 | | | m/s EPSS: 0.76 [...] TV A Obed: 0.65 m/s TV Dec Mccracken: 1.90 m/s2 TV Dec Time: | | | 260.30 ms TV E Obed: 0.49 m/s TV E/A Ratio: 0.75 | | | And Rescue Fire Fighter Crash Fire: EZEKIEL Authenticated by: Anuj Gallego MD Report Date/Time: | | | 07-08-2009 08:56:44 | | + + + + + | Procedure Note | + + | Nilay Lawrence - 01/25/2019 5:24 PM PDT [id number] | | Page [address] [place] [address] NAME: MAYRA [place] RODRIG[place] | | [address] : ACCOUNT #: | | [id number]: DATE OF : 2ORDER NUMBER: | | [id number] DATE/TIME: 07/07/2009 13:49PERFORMING PHYSICIAN: Anuj Gallego MDORDER [...] mlLAESV Index (A-L): 19.90 ml/m2LAAs A2C: 16.02 [id number] A-L | | A2C: 39.78 mlLALs A2C: 5.48 cmLAAs A4C: 13.91 [id number] A-L A4C: 30.58 mlLALs | | A4C: 5.37 cmAo Diam: 2.60 cmAV Cusp: 1.30 cmLA Diam: 3.63 cmLA/Ao: 1.39%FS: | | 37.5 %EDV(Teich): 83.61 mlEF(Teich): 67.83 %ESV(Teich): 26.89 mlIVSd: 1.04 | | cmIVSs: 1.27 cmLVIDd: 4.31 cmLVIDs: 2.69 cmLVPWd: 1.04 cmLVPWs: 1.27 | | cmSV(Teich): 56.72 mlD-E Excursion: 1.44 cmE-F Mccracken: 0.04 m/sEPSS: 0.76 cmIVC | | diameter: 1.27 cmIVC collapse: 0.31 cmIVC % collapse: 73.72 %HR: 81.96 BPMAV | | maxP.03 mmHgAV meanP.44 mmHgAV Vmax: 1.50 m/Shreyas Vmean: 0.99 m/Shreyas VTI: | | 26.02 cmAVA Vmax: 1.39 cm2AVA (VTI): 1.60 xw2UDWZ Dopp: 1.83 l/lmmt4FAAT Dopp: | | 3.25 l/minHR: 78.02 BPMLVOT [...] A Obed: | | 0.65 m/sTV Dec Mccracken: 1.90 m/s2TV Dec Time: 260.30 msTV E Obed: 0.49 m/sTV E/A | | Ratio: 0.75 And Rescue Fire Fighter Crash Fire: MIKAuthenticated by: Anuj JOHNSONeport Date/Time: | | [...] | |D-E Excursion: 1.44 cm | |E-F Mccracken: 0.04 m/s | |EPSS: 0.76 cm | [...] A Obed: 0.65 m/s | |TV Dec Mccracken: 1.90 m/s2 | |TV Dec Time: 260.30 ms | |TV E Obed: 0.49 m/s | |TV E/A Ratio: 0.75 | | | |And Rescue Fire Fighter Crash Fire: EZEKIEL | |Authenticated by: Anuj Gallego MD | |Report Date/Time: 07-08-2009 08:56:44 | + + US Veins Extremiity Bilateral (07/07/2009 2:10 PM PST) + + | Specimen | + + | | + + + + + | Narrative | Performed At | + + + | [facility] | | | [facility] [address] | | | , | | | [id number]/RADIOLOGY Patient Name: CLEMENTINE NUNEZ Date of : | | | 1940 Medical Record: [id number] Account: [id number] | | | I/P/MADIHA 114[address]/ Exam Date/Time: 07/07/2009 | | | 08:00 [...] 09:58 P P | | | P SCK/gracie/[id number]/ cc: MARCIA MOTLEY MD | | | ANUJ GALLEGO MD | | + + + + + | Procedure Note | + + | Nilay Lawrence Conversion - 01/25/2019 5:24 PM PDT | | [facility] | | [facility] [address] | | , | | | | [id number]/RADIOLOGY | | | | Patient Name: CLEMENTINE NUNEZ | | Date of : 1940 | | Medical Record: [id number] | | Account: [id number] | | I/P/CU [address]180/ | | | | | | Exam [...] | P | | P | | CASIMIRO/gracie/[id number]/ | | cc: MARCIA MOTLEY MD | | ANUJ GALLEGO MD | + + VAS Carotid Duplex Bilateral (07/07/2009 2:01 PM PST) + + | Specimen | + + | | + + + + + | Narrative | Performed At | + + + | [facility] | | | [facility] [address] | | | , | | | [id number]/RADIOLOGY Patient Name: CLEMENTINE NUNEZ Date of : | | | 1940 Medical Record: [id number] Account: [id number] | | | I/P/ [id number]/ Exam Date/Time: 07/07/2009 | | | 08:00 A Ordering Provider: ANUJ GALLEGO Order Detail: [id number] / | | | / [facility] Exam Description: US CAROTID DOPPLER | | [...] P P | | | 02:33 P OHChi/gracie/[id number]/ cc: MD ANUJ TEMPLETON | | | MD CHRIS | | + + + + + | Procedure Note | + + | Nilay Lawrence - 01/25/2019 5:24 PM PDT | | [facility] | | [facility] [address] | | , | | | | [id number]/RADIOLOGY | | | | Patient Name: CLEMENTINE NUNEZ | | Date of : 1940 | | Medical Record: [id number] | | Account: [id number] | | I/P/ 30470/ | | | | | | Exam [...] | | P | | [facility]/silke/[id number]/ | | cc: MARCIA MOTLEY MD | | ANUJ GALLEGO MD | + + CV CARDIAC PROCEDURE (07/06/2009 4:45 PM PST) + + | Specimen | + + | | + + + + + | Narrative | Performed At | + + + | [facility] | | | [facility] [address] | | | , | | | [id number]/CARDIOLOGY Patient Name: CLEMENTINE NUNEZ Date of : | | | 1940 Medical Record: [id number] Account: [id number] | | | Rajiv/Brendon/MADIHA [id number]/ Exam Date/Time: 07/06/2009 | | | 03:41 [...] for possible closure device deployment. 5. A 6-Kosovan Mynx | | | closure device deployment at the right arteriotomy site. | | | INDICATIONS The patient is a very pleasant 69-year-old lady | | | who was recently admitted at [facility] after an episode | | | of chest pain. The patient was ruled out for a myocardial infarction | | | and discharged and subsequently was advised to have a [facility] test at [facility] which was significantly abnormal, | | | [...] with 1% | | | lidocaine. A 6-Kosovan vascular sheath was inserted in the right [...] was pulled, and | | | a 6-Kosovan Mynx closure device was deployed at the [...] | segment and was filling distally via vueh-yd-xbwdj collaterals. | | | LEFT VENTRICULOGRAM Left [...] A | | | 09:51 P A /yoana/[id number]/ cc: CHING Sevilla | | | MD ANUJ DAI MD | | + + + + + | Procedure Note | + + | Nilay Lawrence Conversion - 01/25/2019 5:24 PM PDT | | [facility] | | [facility] [address] | | , | | | | [id number]/CARDIOLOGY | | | | Patient Name: CLEMENTINE NUNEZ | | Date of : 1940 | | Medical Record: [id number] | | Account: [id number] | | I/P/ 08738/ | | | | | | Exam [...] closure device deployment. | | 5. A 6-Kosovan Mynx closure device deployment at the right arteriotomy | | site. | | | | INDICATIONS | | The patient is a very pleasant 69-year-old lady who was | | recently admitted at [facility] after an episode of chest | | pain. The patient was ruled out for a myocardial infarction and | | discharged and subsequently was advised to have a stress test at [facility] | | [facility] which was significantly abnormal, revealing | | [...] groin | | with 1% lidocaine. A 6-Kosovan vascular sheath was inserted in the right [...] sheath. The sheath was pulled, and a 6-Kosovan Mynx closure device was | | deployed [...] | segment and was filling distally via janj-hd-bnkyx collaterals. | | | | LEFT VENTRICULOGRAM [...] | | Electronically Signed by | | AUNJ GALLEGO MD 07/24/2009 10:38 A | | | | P | | A | | /yoana/[id number]/ | | cc: CHING DAI MD | | ANUJ GALLEGO MD | + + documented in this encounter Visit Diagnoses + + | Diagnosis | + + | Acute myocardial infarction, subendocardial infarction, initial episode of care (HCC) | | Acute myocardial infarction, subendocardial infarction, initial episode of care | + + documented in this encounter"
--- OUTSIDE RECORDS SUMMARY | ~2019-05-12 | XMS | Encounter Summary ---
Demographics + + + | Address | [address] | | | [place] [address] | + + + | Home Phone [...] [place], | | | | | [place] [address] | | + + + + + | Kellen Briones | ECON | [place], [place] | | | | | [address] | | + + + + + Care Team Providers + +------+ + | Care Nitro Worker Name | Role | Phone | + +------+ + | Anna De Guzman PA-C | PCP | | + +------+ + Encounter Details +--------+ + + + + | Date | Type | Department | Care Team | Description | +--------+ + + + + | 09/30/ | Hospital | [facility] | [place], | DDD (degenerative | | 2015 | Encounter | MED CTR XRAY [address] | [place] [address] | disc disease), | | | | [place] | [facility], | lumbar; Spinal | | | | [place] [address] | [place] [address] | stenosis of lumbar | | | | [phone] | [phone] | region with | | | | | | [id number]-M9-B7 | | | | | Clay Dry [employer] OperatorJordan | level moderately | | | | [...] 2019 | Visit | | [address] | | | | | | [place] | | | | | | [place] [address] | | | | | | [phone] | | | | | | | | +--------+---------+ + + + | 07/30/ | Office | Cardiology | Agata Tinajero DO | | | 2019 | Visit | | [address] | | | | | | [place] | | | | | | [address] | | | | | | | [...] with | | | | | | ozjxpjvmfnbgo-[id number] | | | | | | level [...] radiculopathy ICD-9 Code 724.4 Clementine Phoenix | [facility] | | Annabella presents to the fluoroscopy suite for fluoroscopically-guided [facility] | | bilateral L5-S1 transforaminal epidural [...] + + | Performing | Address | City/[facility] | Phone Number | | Organization | | | | + + + + + | [address] | [place] [address] | [place] | [phone] | | [facility] | | [address] | | | - IMAGING | | | | + + + + + documented in this encounter Visit Diagnoses + + | Diagnosis | + + | DDD (degenerative disc disease), lumbar Degeneration of lumbar or lumbosacral | | intervertebral disc | + + | Spinal stenosis of lumbar region with qdgapmuqfcwsp-B8-F1 level moderately severe | | Spinal stenosis, [...] | | | | First dose on [facility] 09/30/14 at | | | | | [...] PM PDT | | | | | [facility] 09/30/14 at 1448, For 1 dose, | [...] 2:50 | | | (Comment | | 15 at 1515, For 1 dose, | | [...] | | | | Infiltration, ONCE, Adilene 09/30/15 | | PM PDT | | | | | at 1515, For 1 dose, Use for | | | | | | | addition to other parenteral | | | | | | | solutions., Radiology | | | | | | + +-------+ +-------+---+---+ +---+---+ | | | +---+---+ documented in this encounter"
--- OUTSIDE RECORDS SUMMARY | ~2019-05-12 | XMS | Encounter Summary ---
Demographics + + + | Address | [address] | | | [place] [address] | + + + | Home Phone [...] [place], | | | | | [place] [address] | | + + + + + | Kellen Briones | ECON | [place], [place] | | | | | [address] | | + + + + + Care Team Providers + +------+ + | Care Cash Controller Name | Role | Phone | [...] [address] | | | | | [place], [place] | [place] [address] | | | | | [address] | [phone] | | | | | [phone] | | | +--------+ + + + [...] | | | | | | [place] [address] | | | | | | [phone] | | | | | | | | +--------+---------+ + + + | 07/30/ | Office | Cardiology | Agata Tinajero DO | | | 2019 | Visit | | [address] | | | | | | [place] | | | | | | [address] | | | | | | | [...] | + + + | [facility] | | | [facility] [address] | | | , | | | [id number]/RADIOLOGY Patient Name: CLEMENTINE NUNEZ Date of : | | | 1940 Medical Record: [id number] Account: [id number] // | | | Exam Date/Time: 07/06/2009 [...] 09:44 P | | | P P [facility]//[id number]/ | | | cc: MD MARCIA WHITE MD [place] | | | MD LUZ ELENA | | + + + + + | Procedure Note | + + | Nilay Lawrence - 01/25/2019 5:24 PM PDT | | [facility] | | [facility] [address] | | , | | | | [id number]/RADIOLOGY | | | | Patient Name: CLEMENTINE NUNEZ | | Date of : 1940 | | Medical Record: [id number] | | Account: [id number] | | // | | | | [...] | P | | P | | [facility]/britni/[id number]/ | | cc: YANNICK MCKINNEY MD | | MARCIA MOTLEY MD | | KERA LAGUNA MD | + + documented in this encounter Visit Diagnoses + + | Diagnosis | + + | Chest pain, unspecified | + + documented in this encounter"
--- OUTSIDE RECORDS SUMMARY | ~2019-05-12 | XMS | Encounter Summary ---
Demographics + + + | Address | [address] | | | [place] [address] | + + + | Home Phone [...] [place], | | | | | [place] [address] | | + + + + + | Kellen Briones | ECON | [place], [place] | | | | | [address] | | + + + + + Care Team Providers + +------+ + | Care Canine Service Instructor Trainer Name | Role | Phone | + [...] + + | 03/30/ | Surgery | [facility] | Irving Becerril, | C3-4, C4-5, C5-6, | | 2016 | | MED CTR OR INTRA OP | DO [address] | C6-7 Anterior | | | | [address] | [facility] [place], [place] | Cervical Discectomy | | | | [place], [place] | [address] | w/ Fusion and | | | | [address] | | Plating | | | | [phone] | | | +--------+---------+ + + + [...] Hypertension Stroke Syncope and collapse Cancer Hyperlipidemia NV (myocardial infarction) GERD (gastroesophageal reflux disease) Asthma Spondylolisthesis of lumbar region Lumbar radiculopathy DDD (degenerative disc disease), lumbar Spinal stenosis of lumbar region with stfudsacrjmmz-P5-R5 level moderately severe 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 Patient was [...] by: Chavo Jacob, 03/31/2016 7:[address] [facility] documented in this encounter Discharge Instructions Instructions Merle Ricci, PRACTICE BILLING ASSOCIATE - 03/31/2016Discharge Instructions for Cervical Fusion You [...] t raise your hands over your head gkv2eswm(s)after your surgery. Don t drive until your [...] this your 1 month post op appointment. [phone] [employer]. [address] [place] [address]. All righ ts reserved. This information is not intended as a substitute for professional medical care. Always follow your healthcare professional's instructions. If you would like Home Health: Call [facility] at [phone] documented in this encounter Medications at Time [...] by: Chavo Jacob, 03/31/2016 7:[address] [facility] documented in this encounter Plan of [...] | | | | | | [place] [address] | | | | | | [phone] | | | | | | | | +--------+---------+ + + + | 07/30/ | Office | Cardiology | Agata Tinajero DO | | | 2019 | Visit | | [address] | | | | | | [place] | | | | | | [address] | | | | | | | [...] [address] | [place] | [phone] | | [facility] | | [address] | | | - LABORATORY | | [...] [address] | [place] | [phone] | | [facility] | | [address] | | | - LABORATORY | | [...] St | [place] | | | [facility] | | [address] | | | - BLOOD BANK | [...]
--- OUTSIDE RECORDS SUMMARY | ~2019-05-12 | XMS | Encounter Summary ---
Demographics + + + | Address | [address] | | | [place] [address] | + + + | Home Phone [...] [place], | | | | | [place] [address] | | + + + + + | Kellen Briones | ECON | [place], [place] | | | | | [address] | | + + + + + Care Team Providers + +------+ + | Care Cat Scan Technologist Name | Role | Phone | + [...] + + | 03/30/ | Hospital | [facility] | Irving Becerril, | | | 2016 | Encounter | MED CTR XRAY [address] | DO [address] | | | | | [place] | [address] [place], [place] | | | | | [place] [address] | [phone] | | | | | [phone] | | | +--------+ + + + [...] | | | | | | [place] [address] | | | | | | [phone] | | | | | | | | +--------+---------+ + + + | 07/30/ | Office | Cardiology | Agata Tinajero DO | | | 2019 | Visit | | [address] | | | | | | [place] | | | | | | [address] | | | | | | | [...]
--- OUTSIDE RECORDS SUMMARY | ~2019-05-12 | XMS | Encounter Summary ---
Demographics + + + | Address | [address] | | | [place] [address] | + + + | Home Phone [...] [place], | | | | | [place] [address] | | + + + + + | Kellen Briones | ECON | [place] | | | | | [address] | | + + + + + Care Team Providers + +------+ + | Care Curtains And Draperies Salesperson Name | Role | Phone | + [...] + + | 03/19/ | Office | [facility] | Mono Diaz, | Lumbar radiculopathy | | 2018 | Visit | PHYSIATRY [address] | PA-C [address] | (Primary Dx) | | | | [place], | [address] [place] | | | | | [place] [address] | [place] [address] | | | | | [phone] | [phone] | | | | | | | [...] of the procedure you must provide a milk pickup truck driver to take you home. For [...] press against a nerve. Date Last Reviewed: 08/01/201719997804-9510 [employer] [address] [place] [address]. All righ ts reserved. This information is [...] and narcotic medications use; she currently uses [place], Flexeril and ga bapentin. She is taking [...] has no apparent deficits with short or alf memory. She has appropriate fund of knowledge [...] PT (multiple sessions over the years) and rn medicare. Unfortunately Clementine Winchester continues to have significant [...] | 2018 | Visit | | [address] | | | | | | [place], | | | | | | [place] [address] | | | | | | [phone] | | | | | | | | +--------+---------+ + + + | 07/30/ | Office | Cardiology | Agata Tinajero DO | | | 2019 | Visit | | [address] | | | | | | [place] | | | | | | [address] | | | | | | | [...]
--- OUTSIDE RECORDS SUMMARY | ~2019-05-12 | XMS | Encounter Summary ---
Demographics + + + | Address | [address] | | | [place] [address] | + + + | Home Phone [...] [place], | | | | | [place] [address] | | + + + + + | Kellen Briones | ECON | [place], [place] | | | | | [address] | | + + + + + Care Team Providers + +------+ + | Care Impregnator Electrolytic Capacitors Name | Role | Phone | + [...] side (Primary Dx); | | | | Sidney Wingina, | [place] | Facet arthritis [place] | | | | [place] [address] | [address] | cervical region; DDD | | | | [phone] | | (degenerative disc | | | [...] with | | | | | | zgkhmrzetpzmk-Z7-O4 | | | | | | level [...] of the procedure you must provide a hearse driver to take you home. For all [...] She did also receive epidural injections with de on two occasions. The most recent were [...] 8. Spinal stenosis of lumbar region with olgzlyzkvccmv-Z1-C3 level moderately severe 9. Facet arthritis of [...] of the lumbar spine at [facility]. I previously requested that these be placed [...] Surgery | Monster White MD | | 2019 | Visit | | [address] | | | | | | [place], | | | | | | [place] [address] | | | | | | [phone] | | | | | | | | +--------+---------+ + + + | 07/30/ | Office | Cardiology | Agata Tinajero DO | | | 2020 | Visit | | [address] | | | | | | [facility] [place], [place] | | | | | | [address] | | | | | | | [...] ICD-9 Code 724.4 Ms. Clementine Cortez | [facility] | | Annabella presents to the fluoroscopy [...] + + | Performing | Address | City/State[facility] | Phone Number | | Organization | | | | + + + + + | [facility] | [address] | [place], [place] | [phone] | | [facility] | | [address] | | | - IMAGING | | [...] ICD-9 Code 721.0 Ms. Clementine Winchester | [facility] | | presents to the fluoroscopy suite for fluoroscopically-guided C4-C5, | [facility] | | C5-C6 and C6-C7 facet [...] [address] 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
--- OUTSIDE RECORDS SUMMARY | ~2019-05-12 | XMS | Encounter Summary ---
Demographics + + + | Address | [address] | | | [place] [address] | + + + | Home Phone [...] [place], | | | | | [place] [address] | | + + + + + | Kellen Briones | ECON | [place], [place] | | | | | [address] | | + + + + + Care Team Providers + +------+ + | Care Federal Appellate Clerk Name | Role | Phone | [...] + | 01/23/ | Telephone | [facility] | Mono Diaz, | Results, Imaging | | 2017 | | PHYSIATRY [address] | PA-C [address] | | | | | [place], | [address] [place] | | | | | [place] [address] | [place] [address] | | | | | [phone] | [phone] | | | | | | | [...] | | | | | | [place] [address] | | | | | | [phone] | | | | | | | | +--------+---------+ + + + | 07/30/ | Office | Cardiology | Agata Tinajero DO | | | 2019 | Visit | | [address] | | | | | | [place] | | | | | | [address] | | | | | | | | +--------+---------+ + + + documented as of this encounter Visit Diagnoses Not on filedocumented in this encounter"
--- OUTSIDE RECORDS SUMMARY | ~2019-05-12 | XMS | Encounter Summary ---
Demographics + + + | Address | [address] | | | [place] [address] | + + + | Home Phone [...] [place], | | | | | [place] [address] | | + + + + + | Kellen Briones | ECON | [place], [place] | | | | | [address] | | + + + + + Care Team Providers + +------+ + | Care Mat Gauger Name | Role | Phone | + [...] + + | 08/18/ | Telephone | [facility] | Susy Abdullahi | Other (returning | | 2013 | | PHYSIATRY [address] | N RN | patient's call) | | | | [place], | | | | | | [place] [address] | | | | | | [phone] | | | +--------+ + + + [...] | | | | | | [place] [address] | | | | | | [phone] | | | | | | | | +--------+---------+ + + + | 07/30/ | Office | Cardiology | Agata Tinajero DO | | | 2019 | Visit | | [address] | | | | | | [place] | | | | | | [address] | | | | | | | | +--------+---------+ + + + documented as of this encounter Visit Diagnoses Not on filedocumented in this encounter"
--- OUTSIDE RECORDS SUMMARY | ~2019-05-12 | XMS | Encounter Summary ---
Demographics + + + | Address | [address] | | | [place] [address] | + + + | Home Phone [...] [place], | | | | | [place] [address] | | + + + + + | Kellen Briones | ECON | [place], [place] | | | | | [address] | | + + + + + Care Team Providers + +------+ + | Care Trimmer Meat Name | Role | Phone | + +------+ + | Anna De Guzman PA-C | PCP | | + +------+ + Encounter Details +--------+ + + + + | Date | Type | Department | Care Team | Description | +--------+ + + + + | 02/01/ | Hospital | [facility] | Irving Becerril, | Neck pain | | 2016 | Encounter | MED CTR XRAY [address] | DO [address] | | | | | [place] | [address] [place], [place] | | | | | [place] [address] | [id number] | | | | | [phone] | | | +--------+ + + + [...] | | 2019 | Visit | | [address] [facility] | | | | | | [place] | | | | | | [place] [address] | | | | | | [phone] | | | | | | | | +--------+---------+ + + + | 07/30/ | Office | Cardiology | Agata Tinajero DO | | | 2020 | Visit | | [address] | | | | | | [place] | | | | | | [address] | | | | | | | [...] | + + + + + | [facility] | [address] | [place] | [phone] | | [facility] | | [address] | | | - IMAGING | | | | + + + + + documented in this encounter Visit Diagnoses + + | Diagnosis | + + | Neck pain Cervicalgia | + + documented in this encounter"
--- OUTSIDE RECORDS SUMMARY | ~2019-05-12 | XMS | Encounter Summary ---
Demographics + + + | Address | [address] | | | [place] [address] | + + + | Home Phone | | + + + | Preferred Language | Unknown | + + + | Marital Status | | + + + | Judaism Affiliation | 1041 | + + + | Race | Unknown | + + + | Ethnic Group | Unknown | + + + Author + + + | Author | [facility] | | | and [place] | + + + | Organization | [facility] | | [...] [place], | | | | | [place] [address] | | + + + + + | Kellen Briones | ECON | [place], [place] | | | | | [address] | | + + + + + Care Team Providers + +------+ + | Care Pediatric Ophthalmologist Name | Role | Phone | + [...] | Lumbar | [place], | [address] | | | | | radiculopath | Tk Monreal MD | [place], | | | | | y | [address] | [place] | | | | | Procedures | [place] | [address] | | | | | [place] INJECT | [place], [place] | Phone: | | | | | ANES/STEROID | [address] | [phone] | | | | | [place]AM[place] | Phone: | Fax: | | | | | LUMBAR/SACRA | [phone] | [phone] | | | | | L W IMG | Fax: | | | | | | GUIDE ,1 | [phone] | | | | | | LEVEL [place] | | | | | | [...] | +--------+ + + + + | 02/24/ | Hospital | [facility] | Mono Diaz, | Lumbar radiculopathy | | 2018 | Encounter | MED CTR XRAY [address] | PA-C [address] | | | | | [place] | [address] [place] | | | | | [place] [address] | [place] [address] | | | | | [phone] | | | | | | | | | | | | Wic Site CoordinatorJordan | | +--------+ + + + + [...] +---------+ + + | Blood Pressure | 118/58 | 02/24/2018 4:00 PM | | | | | PDT | | + +---------+ + + | Pulse | 91 | 02/24/2018 4:00 PM | | | | | PDT [...] | | | | | | [place] [address] | | | | | | [phone] | | | | | | | | +--------+---------+ + + + | 07/30/ | Office | Cardiology | Agata Tinajero DO | | | 2019 | Visit | | [address] | | | | | | [place] | | | | | | [address] | | | | | | | | +--------+---------+ + + + documented as of this encounter Procedures + +--------+ + + + | Procedure Name | Priori | Date/Time | Associated Diagnosis | Comments | | | ty | | | | + +--------+ + + + | FL EPIDURAL STEROID | Routin | 02/24/2018 | Lumbar | Results for this | | INJECTION LUMBAR | e | 4:11 PM | radiculopathy | procedure are in [...] dexamethasone (PF) 10 mg/mL | Given | 02/25/20 | 15 mg | | | | injection 15 mg 15 mg, Other, | | 18 4:25 | | | | | ONCE, 02/24/18 at 1615, For 1 | | PM PDT | | | | | dose | | | | | | + +--------+ +-------+------+------+ +---+---+ | | | +---+---+ + +-------+ +-------+---+---+ | iohexol (OMNIPAQUE 300) 300 | Given | 02/25/20 | 4 mLs | | | | mg/mL injection 4 mL 4 mL, | | 18 4:20 | | | | | Other, ONCE, 02/24/18 at 1615, | | PM PDT | | | | | For 1 dose | | | | | | + +-------+ +-------+---+---+ +---+---+ | | | +---+---+ + +-------+ +-------+---+---+ | lidocaine (PF) 1% injection 2 | Given | 02/25/20 | 2 mLs | | | | mL 2 mL, Other, ONCE, Mon | | 18 4:25 | | | | | 02/24/18 at 1615, For 1 dose | | PM PDT | | | | + +-------+ +-------+---+---+ +---+---+ | | | +---+---+ + +-------+ +-------+---+ + | lidocaine buffered 1.3% | Given | 02/25/20 | 6 mLs | | Other | | injection 6 mL 6 mL, | | 18 4:15 | | | (Comment | | Intradermal, ONCE, 02/24/18 at | | PM PDT | | | ) | | 1615, For 1 dose | | | | | | + +-------+ +-------+---+ + +---+---+ | | | +---+---+ documented in this encounter"
--- OUTSIDE RECORDS SUMMARY | ~2019-05-12 | XMS | Encounter Summary ---
Demographics + + + | Address | [address] | | | [place] [address] | + + + | Home Phone [...] [place], | | | | | [place] [address] | | + + + + + | Kellen Briones | ECON | [place], [place] | | | | | [address] | | + + + + + Care Team Providers + +------+ + | Care Crane Operator Name | Role | Phone [...] | Specialty | Sleep | Diagnoses | aPtrick Gaffney, | [facility] | | | Services | Medicine | Sleep | MD [address] | | | Required | | disorder | [address] | Disorder [address] | | | | | [address] | [address] | | | | | | D | [place], | | | | | | [place], | [place] [address] | | | | | | [place] [address] | Phone: | | | | | | Phone: | [phone] | | | | | | [phone] | Fax: | | | | | | Fax: | [phone] | | | | | | [phone] | | +--------+ + + + + + Reason for Visit + + + | Reason | Comments | + + + | Seizures | Patient's daughter states pt has had 3 "episodes" since last | | | appt, one of which lasted 45 minutes. She states pt will say "I'm | | | fine," during these episodes, which happen during times of | | | stress. | + + + Encounter Details +--------+---------+ + + + | Date | Type | Department | Care Team | Description | +--------+---------+ + + + | 09/03/ | Office | [facility] | Patrick Gaffney MD [address] | Mental status change | | 2012 | Visit | NEUROLOGY [place] | [address] | (Primary Dx); Sleep | | | | [address] [facility], | [address] [place], | disorder | | | | [address] [place] | [place] [address] | | | | | [place] [address] | [phone] | | | | | [phone] | | | +--------+---------+ + + + [...] + + + | Blood Pressure | 94/50 | 09/03/2012 1:10 PM | | | | | PDT | | + + + + + | Pulse | 64 | 09/03/2012 1:10 PM | | | | | PDT | | + + + + + | Temperature | - | - | | + + + + + | Respiratory Rate | 18 | 09/03/2012 1:10 PM | | | | | PDT | | + + + + + | Oxygen Saturation | - | - | | + + + + + | Inhaled Oxygen | - | - | | | Concentration | | | | + + + + + | Weight | 71.7 kg (158 lb) | 09/03/2012 1:10 PM | | | | | PDT | | + + + + + | Height | - | - | | + + + + + | Body Mass Index | 27.99 | 08/13/2012 1:44 PM | | | | | PDT | | + + + + + documented in this encounter Patient Instructions Patient Instructions Patrick Gaffney MD - 09/03/2012 1:46 PM PDT1. Plan to refer to a sleep spec ialist 2. Plan for scheduled naps half an hour in the morning and in the evening. Follow in two months. documented in this encounter Progress Notes Patrick Gaffney MD - 09/03/2012 2:58 PM PDTFormatting of this note might be different from the o riginal. Neurology Clinic Follow Up Note PCP: Anna Draper MD Date of Encounter: 09/03/2012 Subjective: Clementine Winchester is a pleasant 72 y.o. female who presents to the clinic today for evaluation of episodes of decreased responsiveness. The patient was accompanied by her daughter. She was last seen on 30 August. Since then she had a sleep deprived EEG, which did not show epileptiform abnormalities. There was mild diffuse slowing on the EEG. The daughter report s 3 more episodes since last visit. She feels that one of the episode is really concerning as it lasted for 45 minutes. The patient was still able to talk and talking during the epis ode, however she has no recollection of these episodes. If she is more stressed earlier duri ng the day then she would more likely to have an attack later during the day. The patient s nores at night but denies episodes of apnea. She denies morning headaches. She denies hernandez ucinations when she first woke up or symptoms suggestive of sleep paralysis. She continued to take medications for depression, pain, and muscle relaxant. Allergies Allergies Allergen Reactions Tape (Adhesive & Tape) Rash Medications Current Outpatient Prescriptions on File Prior to Visit Medication Sig Dispense Refill tiZANidine (ZANAFLEX) 4 [...] every 5 minute s as needed. Family history, social history and past medical history were reviewed and did not change si nce last visit. Review of Systems In addition to HPI, a comprehensive ROS also revealed: Back pain. Objective: BP 94/50 | Pulse 64 | Resp 18 | Wt 71.668 kg (158 lb) | ? No General: WDWN, NAD. Awake, alert, oriented x3. Cooperative and appropirate during the encounter. Speech is mary r, fluent and coherent. Muscle strength: full in all extremities Gait steady. Assessment: Episodes of decreased responsiveness Previous workup of MRI, MRA, and two EEGs were unremarkable. By description these episodes appear to be sleep attacks to me. It could be medication related, she was started on pain and depression medications since last March. Apparently it is difficult for her not to ta ke these medications. Her daughter is very concerned. I think she may benefit from a sleep consult for evaluation of any particular sleep disorders that may contribute to these episod es. I also asked the patient to take scheduled 30 minutes naps in the morning and in the af ternoon. If these measures does not help and the sleep evaluation is unremarkable, may cons ider video EEG evaluation. Follow up in two months. This is a 25 minutes encounter, with over half of the time spent on counseling and coordina tion of care issues. Cc: Anna Draper MD documented in this summa healthte r Plan of Treatment +--------+---------+ + + + | Date | Type | Specialty | Care Team | Description | +--------+---------+ + + + | 05/14/ | Office | Orthopedic Surgery | Monster White MD | | | 2018 | Visit | | [address] | | | | | | [place] | | | | | | [place] [address] | | | | | | [phone] | | | | | | | | +--------+---------+ + + + | 07/30/ | Office | Cardiology | Agata Tinajero DO | | | 2019 | Visit | | [address] | | | | | | [place] | | | | | | [address] | | | | | | | | +--------+---------+ + + + + + +--------+ + + | Name | Type | Priori | Associated Diagnoses | Order Schedule | | | | ty | | | + + +--------+ + + | Ambulatory Referral | Outpatient | Routin | Sleep disorder | 1 Occurrences | | to Sleep Studies | Referral | e | | starting 09/03/2012 | | | | | | until 09/03/2013 | + + +--------+ + + documented as of this encounter Visit Diagnoses + + | Diagnosis | + + | Mental status change - Primary Altered mental status | + + | Sleep disorder Sleep disturbance, unspecified | + + documented in this encounter
--- OUTSIDE RECORDS SUMMARY | ~2019-05-12 | XMS | Encounter Summary ---
Demographics + + + | Address | [address] | | | [place] [address] | + + + | Home Phone [...] [place], | | | | | [place] [address] | | + + + + + | Kellen Briones | ECON | [place], [place] | | | | | [address] | | + + + + + Care Team Providers + +------+ + | Care Php Lamp Developer Name | Role | Phone | [...] | Lumbar | [place], | [address] | | | | | radiculopath | Tk Monreal MD | [place], | | | | | y | [address] | [place] | | | | | Procedures | [place] | [address] | | | | | [place] INJECT | [place], [place] | Phone: | | | | | ANES/STEROID | [address] | [phone] | | | | | FORAMEN | Phone: | Fax: | | | | | LUMBAR/SACRA | [phone] | [phone] | | | | | L W IMG | Fax: | | | | | | GUIDE ,1 | [phone] | | | | | | LEVEL [...] + + | 08/21/ | Hospital | [facility] | Mono Diaz, | Lumbar radiculopathy | | 2019 | Encounter | MED CTR XRAY [address] | PA-C [address] | | | | | [place] | [address] [place] | | | | | [place] [address] | [place] [address] | | | | | [phone] | [phone] | | | | | | | | | | | | [employer], [facility] | | +--------+ + + + [...] | 2019 | Visit | | [address] | | | | | | [place] | | | | | | [place] [address] | | | | | | [phone] | | | | | | | | +--------+---------+ + + + | 07/30/ | Office | Cardiology | Agata TinajeroDO | | | 2019 | Visit | | [address] | | | | | | [place] | | | | | | [address] | | | | | | | [...] | Performing | Address | City/[facility] | Phone Number | | Organization | [...]
--- OUTSIDE RECORDS SUMMARY | ~2019-05-12 | XMS | Encounter Summary ---
Demographics + + + | Address | [address] | | | [place] [address] | + + + | Home Phone [...] [place], | | | | | [place] [address] | | + + + + + | Kellen Briones | ECON | [place], [place] | | | | | [address] | | + + + + + Care Team Providers + +------+ + | Care Cotton Tipper Name | Role | Phone | + [...] | | | | | | | [place] | | | | | | [...] | | | | | [address] | [place] | | | | | [place] | [address] | | | | | [address] | | | | | | [phone] | | | +--------+ + + + [...] +----+---+ + + | | 1 | Robertson | | | | 4 | 43-degrees [...] 1500 by | | eral | Antecubital; [id number] | Magdalena Burdick, RN | Tatiana Crowe, [...] within expectations; | Tera Gr RN | Ttaiana Crowe RN | | | 03/31/16; 1500 [...] | | | | | | [place] [address] | | | | | | [phone] | | | | | | | | +--------+---------+ + + + | 07/30/ | Office | Cardiology | Agata Tinajero DO | | | 2019 | Visit | | [address] | | | | | | [place] | | | | | | [address] | | | | | | | [...]
--- OUTSIDE RECORDS SUMMARY | ~2019-05-12 | XMS | Encounter Summary ---
Demographics + + + | Address | [address] | | | [place] [address] | + + + | Home Phone [...] [place], | | | | | [place] [address] | | + + + + + | Kellen Briones | ECON | [place], [place] | | | | | [address] | | + + + + + Care Team Providers + +------+ + | Care Bsa Officer Name | Role | Phone | [...] + | 03/27/ | Telephone | [facility] | Monster White MD | Imaging | | 2019 | | NEUROSCIENCE CENTER | [address] | | | | | ORTHOPEDIC SPINE | [place] | | | | | [address] [place] | [place] [address] | | | | | [place] | [phone] | | | | | [address] | | | | | | [phone] | | | +--------+ + + + [...] | | | | | [place] [address] | | | | | | [phone] | | | | | | | | +--------+---------+ + + + | 07/30/ | Office | Cardiology | Agata Tinajero DO | | | 2019 | Visit | | [address] | | | | | | [place] | | | | | | [address] | | | | | | | | +--------+---------+ + + + documented as of this encounter Visit Diagnoses Not on filedocumented in this encounter"
--- OUTSIDE RECORDS SUMMARY | ~2019-05-12 | XMS | Encounter Summary ---
Demographics + + + | Address | [address] | | | [place] [address] | + + + | Home Phone [...] [place], | | | | | [place] [address] | | + + + + + | Kellen Briones | ECON | [place], [place] | | | | | [address] | | + + + + + Care Team Providers + +------+ + | Care Final Inspector Paper Name | Role | Phone | [...] + | 06/18/ | Refill | [facility] | Irving Becerril, | Medication Refill | | 2016 | | NEUROSURGERY [address] | DO [address] | | | | | [address] [facility] [address] | [address] [place], [place] | | | | | [place], [place] | [id number] | | | | | [address] | | | | | | [phone] | | | +--------+--------+ + + + [...] | | | | | | [place] [address] | | | | | | [phone] | | | | | | | | +--------+---------+ + + + | 07/30/ | Office | Cardiology | Agata Tinajero DO | | | 2019 | Visit | | [address] | | | | | | [place] | | | | | | [address] | | | | | | | | +--------+---------+ + + + documented as of this encounter Visit Diagnoses + + | Diagnosis | + + | S/P cervical spinal fusion - Primary Arthrodesis status | + + documented in this encounter"
--- OUTSIDE RECORDS SUMMARY | ~2019-05-12 | XMS | Encounter Summary ---
Demographics + + + | Address | [address] | | | [place] [address] | + + + | Home Phone [...] [place], | | | | | [place] [address] | | + + + + + | Kellen Briones | ECON | [place], [place] | | | | | [address] | | + + + + + Care Team Providers + +------+ + | Care Finish Mill Operator Name | Role | Phone [...] [address] | [address] [place], [place] | | | | | [place], [place] | [id number] | | | | | [address] | | | | | | [phone] | | | +--------+ + + + [...] | | | | | | [place] [address] | | | | | | [phone] | | | | | | | | +--------+---------+ + + + | 07/30/ | Office | Cardiology | Agata Tinajero DO | | | 2019 | Visit | | [address] | | | | | | [place] | | | | | | [address] | | | | | | | [...] [address] | [place] | [phone] | | [facility] | | [address] | | | - IMAGING | | | | + + + + + documented in this encounter Visit Diagnoses + + | Diagnosis | + + | Neck pain - Primary Cervicalgia | + + documented in this encounter"
--- OUTSIDE RECORDS SUMMARY | ~2019-05-12 | XMS | Encounter Summary ---
Demographics + + + | Address | [address] | | | [place] [address] | + + + | Home Phone [...] [place], | | | | | [place] [address] | | + + + + + | Kellen Briones | ECON | [place], [place] | | | | | [address] | | + + + + + Care Team Providers + +------+ + | Care Undercover Cop Name | Role | Phone | + +------+ + | Anna De Guzman PA-C | PCP | | + +------+ + Encounter Details +--------+ + + + + | Date | Type | Department | Care Team | Description | +--------+ + + + + | 05/17/ | Hospital | [facility] | Irving Becerril, | Status post cervical | | 2016 | Encounter | MED CTR XRAY [address] | DO [address] | spinal fusion; | | | | [place] | [address] [place], [place] | Spondylolisthesis of | | | | [place] [address] | [id number] | cervical region | | | | [phone] | | | +--------+ + + + [...] | | | | | | [place] [address] | | | | | | [phone] | | | | | | | | +--------+---------+ + + + | 07/30/ | Office | Cardiology | Agata Tinajero DO | | | 2019 | Visit | | [address] | | | | | | [place] | | | | | | [address] | | | | | | | [...] | + + + + + | [facility] | [address] | [place] | [phone] | | [facility] | | [address] | | | - IMAGING | | | | + + + + + documented in this encounter Visit Diagnoses + + | Diagnosis | + + | Status post cervical spinal fusion Arthrodesis status | + + | Spondylolisthesis of cervical region Acquired spondylolisthesis | + + documented in this encounter"
--- OUTSIDE RECORDS SUMMARY | ~2019-05-12 | XMS | Encounter Summary ---
Demographics + + + | Address | [address] | | | [place] [address] | + + + | Home Phone [...] [place], | | | | | [place] [address] | | + + + + + | Kellen Briones | ECON | [place], [place] | | | | | [address] | | + + + + + Care Team Providers + +------+ + | Care Escrow Closer Name | Role | Phone | + [...] + + | 10/18/ | Office | [facility] | [place], | Cervical stenosis of | | 2016 | Visit | PHYSIATRY [address] | [address] | spinal canal | | | | [place], | [facility], | (Primary Dx); | | | | [place] [address] | [place] [address] | Spondylolisthesis of | | | | [phone] | [phone] | cervical region; | | | | | | 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; | | | | | | Lumbar | | | | | | radiculopathy; | | | | | | Spinal stenosis of | | | | | | lumbar region with | | | | | | gbjzsurrjesea-E0-M3 | | | | | | level [...] of the procedure you must provide a armored truck driver to take you home. For [...] and narcotic medications use; she currently uses [place], Flexeril and [place] bapentin. Patient's medications, allergies, [...] has no apparent deficits with short or group home memory. She has appropriate fund of [...] 5. Spinal stenosis of lumbar region with jgkyrtjypngev-T6-M3 level moderately severe 6. Facet arthritis of [...] | 2019 | Visit | | [address] | | | | | | [place], | | | | | | [place] [address] | | | | | | [phone] | | | | | | | | +--------+---------+ + + + | 07/30/ | Office | Cardiology | Agata Tinajero DO | | | 2020 | Visit | | [address] | | | | | | [place], [place] | | | | | | [address] | | | | | | | [...] Arthritis ICD-10 Code M43.12 Clementine Winchester | [facility] | | presents to the fluoroscopy suite for fluoroscopically-guided | [facility] | | bilateral right C3, C4 [...] ST. | [address] | [place] | [phone] | | [facility] | | [address] | | | - IMAGING | | | | + + + + + FL BAUTITSA Lumbar Transforaminal (11/16/2015 2:29 PM PDT) + + | Specimen | + + | | + + + + + | Narrative | Performed At | + + + | 11/16/2015 Bilateral Transforaminal Epidural Steroid Injections | MELISSAE | | Diagnosis: Lumbar radiculopathy ICD-10 Code M54.16 Clementine | [facility] | | Lizett Winchester presents to the fluoroscopy suite for [facility] | | fluoroscopically-guided bilateral L5-S1 transforaminal [...] | Performing | Address | City[facility]State[facility] | Phone Number | | Organization | | | | + + + + + | [address] | [address] | [place] | [phone] | | [facility] | | [address] | | | - IMAGING | | [...] | Spinal stenosis of lumbar region with sxjvoickvcjbb-T2-U1 level moderately severe | | Spinal stenosis, [...]
--- OUTSIDE RECORDS SUMMARY | ~2019-05-12 | XMS | Encounter Summary ---
Demographics + + + | Address | [address] | | | [place] [address] | + + + | Home Phone [...] [place], | | | | | [place] [address] | | + + + + + | Kellen Briones | ECON | [place], [place] | | | | | [address] | | + + + + + Care Team Providers + +------+ + | Care Assessment Clinician Name | Role | Phone | [...] [address] | [address] [place], [place] | | | | | [place], [place] | [id number] | | | | | [address] | | | | | | [phone] | | | +--------+ + + + [...] [place] | | | | | [place] [address] | | | | | | [phone] | | | | | | | | +--------+---------+ + + + | 07/30/ | Office | Cardiology | Agata Tinajero DO | | | 2019 | Visit | | [address] | | | | | | [place] | | | | | | [address] | | | | | | | | +--------+---------+ + + + documented as of this encounter Visit Diagnoses Not on filedocumented in this encounter"
--- OUTSIDE RECORDS SUMMARY | ~2019-05-12 | XMS | Encounter Summary ---
Demographics + + + | Address | [address] | | | [place] [address] | + + + | Home Phone [...] [place], | | | | | [place] [address] | | + + + + + | Kellen Briones | ECON | [place] | | | | | [address] | | + + + + + Care Team Providers + +------+ + | Care Knitting Supervisor Name | Role | Phone | + +------+ + | Barb Marte | THANG | | + +------+ + Encounter Details +--------+ + + + + | Date | Type | Department | Care Team | Description | +--------+ + + + + | 03/05/ | Hospital | [facility] | Barb Marte PA | Abnormal mammogram | | 2018 | Encounter | MED CTR MAMMOGRAPHY | [address] | | | | | [address] | [address] [place] | | | | | [place] | [address] | | | | | [address] | | | | | | [phone] | [place] | | +--------+ [...] | | | | | | [place] [address] | | | | | | [phone] | | | | | | | | +--------+---------+ + + + | 07/30/ | Office | Cardiology | Agata Tinajero DO | | | 2019 | Visit | | [address] | | | | | | [place] | | | | | | [address] | | | | | | | [...]
--- OUTSIDE RECORDS SUMMARY | ~2019-05-12 | XMS | Encounter Summary ---
Demographics + + + | Address | [address] | | | [place] [address] | + + + | Home Phone [...] [place], | | | | | [place] [address] | | + + + + + | Kellen Briones | ECON | [place], [place] | | | | | [address] | | + + + + + Care Team Providers + +------+ + | Care Motorcycle Technician Name | Role | Phone | [...] | | | [address] | [address] | | | | | | D | [place], | | | | | | [place], | [place] [address] | | | | | | [place] [address] | Phone: | | | | | | Phone: | [phone] | | | | | | [phone] | Fax: | | | | | | Fax: | [phone] | | | | | | [phone] | | +--------+ + + + + + Encounter Details +--------+---------+ + + + | Date | Type | Department | Care Team | Description | +--------+---------+ + + + | 09/16/ | Office | [facility] | Bobby Grier | Snoring (Primary | | 2012 | Visit | SLEEP DISORDER [address] | MD [address] | Dx); Chronic | | | | [address] [place] | [address] [place]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 Gely Easley [facility] [place] [address] Ref: Patrick Gaffney MD CC: Chief Complaint [...] and back pain she was started on [place], baclofen, flexeril, and zanaflex in February of 2012 according to the patient and her daughter (the EMR supports this too). Currently she is on the zanaflex and [place]. She had been started on Celexa in November of 2011 for depression. Wellbutrin was started in July of 2010 after heart surgery. She currently takes 2 [place] tabs tid. She started having spells of [...] of 20-30 minutes. She often takes a [place] at about 8pm and rarely after 10pm. [...] Hypertension; Stroke; Syncope and collapse; Cancer; Hyperlipidemia; CT (myocardial inf arction); GERD (gastroesophageal reflux disease); Asthma; Arthritis; Lumbar radiculopathy (); DDD (degenerative disc disease), lumbar (07/23/2012); Spinal stenosis of lumbar re gion with esiakperxfugp-A5-B1 level moderately severe (07/23/2012); Facet arthritis of lumbar region-Most severe at L4-L5,L5-S1 (07/23/2012); and Snoring. 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 I've discussed this in detail with [...] [facility] CC: Emerita Draper Taye, Bobby Booker Jr., MD - 09/16/2012 10:17 AM PDTFormatting of this note might be different from the origin al. 09/16/12 [address] Depression Inventory-II Depression Score 5 - Minimal depression Insomnia Severity Index Insomnia Severity Index 7 [place] Sleepiness Scale Sitting and reading 0 Watching [...] | | | | | | [place] [address] | | | | | | [phone] | | | | | | | | +--------+---------+ + + + | 07/30/ | Office | Cardiology | Agata Tinajero DO | | | 2019 | Visit | | [address] | | | | | | [place], [place] | | | | | | [address] | | | | | | | [...]
--- OUTSIDE RECORDS SUMMARY | ~2019-05-12 | XMS | Encounter Summary ---
Demographics + + + | Address | [address] | | | [place] [address] | + + + | Home Phone [...] [place], | | | | | [place] [address] | | + + + + + | Kellen Briones | ECON | [place], [place] | | | | | [address] | | + + + + + Care Team Providers + +------+ + | Care Jewel Bearing Grinder Name | Role | Phone | + +------+ + | Anna De Guzman PA-C | PCP | | + +------+ + Encounter Details +--------+ + + + + | Date | Type | Department | Care Team | Description | +--------+ + + + + | 03/07/ | Hospital | [facility] | Irving Becerril, | | | 2016 | Encounter | MED CTR LABORATORY | DO [address] | | | | | [address] [facility] | [address] [place], [place] | | | | | [place], [place] | [address] | | | | | [address] | | | | | | [phone] | | | +--------+ + + + [...] | | | | | | [place] [address] | | | | | | [phone] | | | | | | | | +--------+---------+ + + + | 07/30/ | Office | Cardiology | Agata Tinajero DO | | | 2019 | Visit | | [address] | | | | | | [place] | | | | | | [address] | | | | | | | | +--------+---------+ + + + documented as of this encounter Visit Diagnoses Not on filedocumented in this encounter"
--- OUTSIDE RECORDS SUMMARY | ~2019-05-12 | XMS | Encounter Summary ---
Demographics + + + | Address | [address] | | | [place] [address] | + + + | Home Phone [...] [place], | | | | | [place] [address] | | + + + + + | Kellen Briones | ECON | [place], [place] | | | | | [address] | | + + + + + Care Team Providers + +------+ + | Care Pattern Drum Maker Name | Role | Phone | [...] + + | 04/05/ | Telephone | [facility] | Irving Becerril, | Medication Question | | 2015 | | NEUROSURGERY [address] | DO [address] | | | | | [address] [facility] [address] | [address] [place], [place] | | | | | [place], [place] | [id number] | | | | | [address] | | | | | | [phone] | | | +--------+ + + + [...] [place] | | | | | [place] [address] | | | | | | [phone] | | | | | | | | +--------+---------+ + + + | 07/30/ | Office | Cardiology | Agata Tinajero DO | | | 2019 | Visit | | [address] | | | | | | [place] | | | | | | [id number] | | | | | | | | +--------+---------+ + + + documented as of this encounter Visit Diagnoses Not on filedocumented in this encounter"
--- OUTSIDE RECORDS SUMMARY | ~2019-05-12 | XMS | Encounter Summary ---
Demographics + + + | Address | [address] | | | [place] [address] | + + + | Home Phone [...] [place], | | | | | [place] [address] | | + + + + + | Kellen Briones | ECON | [place], [place] | | | | | [address] | | + + + + + Care Team Providers + +------+ + | Care Dental Secretary Name | Role | Phone | + [...] | Lumbar | Marissa, | [address] | | | | | radiculopath | Tk Monreal MD | [place], | | | | | y | [address] | [place] | | | | | Procedures | [place] | [address] | | | | | CT INJECT | [facility] | Phone: | | | | | ANES/STEROID | [address] | [phone] | | | | | FORAMEN | Phone: | Fax: | | | | | LUMBAR/SACRA | [phone] | [phone] | | | | | L W IMG | Fax: | | | | | | GUIDE ,1 | [phone] | | | | | | LEVEL CT | | | | | | [...] + + | 11/15/ | Hospital | [facility] | [place], | Spondylolisthesis of | | 2015 | Encounter | MED CTR XRAY [address] | [address] | lumbar region; | | | | [place] | [facility], | Lumbar | | | | [place] [address] | [place] [address] | radiculopathy; | | | | [phone] | [phone] | Spinal stenosis of | | | | | | lumbar region with | | | | | Office Support AssistantCandace | ktbcfwwlcqqso-Y4-Q8 | | | | | | level [...] | 2018 | Visit | | [address] | | | | | | [place] | | | | | | [place] [address] | | | | | | [phone] | | | | | | | | +--------+---------+ + + + | 07/30/ | Office | Cardiology | Agata Tinajero DO | | | 2020 | Visit | | [address] | | | | | | [place] | | | | | | [address] | | | | | | | [...] with | | | | | | lnhtnftazkbjg-S2-X1 | | | | | | level [...] | Diagnosis: Lumbar radiculopathy ICD-10 Code M54.16 [place] | [facility] | | Lizett Winchester presents to the fluoroscopy suite for | [facility] | | fluoroscopically-guided bilateral L5-S1 transforaminal epidural [...] [address] | [place] | [phone] | | [facility] | | [address] | | | - IMAGING | | | | + + + + + documented in this encounter Visit Diagnoses + + | Diagnosis | + + | Spondylolisthesis of lumbar region Acquired spondylolisthesis | + + | Lumbar radiculopathy Thoracic or lumbosacral neuritis or radiculitis, unspecified | + + | Spinal stenosis of lumbar region with onqrjkpemikzz-M3-J3 level moderately severe | | Spinal stenosis, [...]
--- OUTSIDE RECORDS SUMMARY | ~2019-05-12 | XMS | Encounter Summary ---
Demographics + + + | Address | [address] | | | [place] [address] | + + + | Home Phone [...] [place], | | | | | [place] [address] | | + + + + + | Kellen Briones | ECON | [place], [place] | | | | | [address] | | + + + + + Care Team Providers + +------+ + | Care Parish Worker Name | Role | Phone | [...] NEUROSURGERY [address] | F, [address] | Dx) | | | | [address] | [place] | | | | | [place], [place] | [address] | | | | | [address] | [phone] | | | | | [phone] | | | +--------+ + + + [...] | | | | | | [place] [address] | | | | | | [phone] | | | | | | | | +--------+---------+ + + + | 07/30/ | Office | Cardiology | Agata Tinajero DO | | | 2019 | Visit | | [address] | | | | | | [place] | | | | | | [address] | | | | | | | [...]
--- OUTSIDE RECORDS SUMMARY | ~2019-05-12 | XMS | Encounter Summary ---
Demographics + + + | Address | [address] | | | [place] [address] | + + + | Home Phone | | + + + | Preferred Language | Unknown | + + + | Marital Status | | + + + | Adventist Affiliation | [id number] | + + + [...] [place], | | | | | [place] [address] | | + + + + + | Kellen Briones | ECON | [place], [place] | | | | | [address] | | + + + + + Care Team Providers + +------+ + | Care Cannon Fire Direction Specialist Name | Role | Phone | [...] pain, | MD [address] | | | | | bilateral | [address] | [address] [place] | | | | | Procedures | [place], | [place], [place] | | | | | MRI Lumbar | [place] [address] | [address] | | | | | Spine wo | Phone: | Phone: | | | | | Contrast | [phone] | [phone] | | | | | | [phone] Fax: | Fax: | | | | | | | [phone] | | | | | | [phone] | | +--------+--------+ + + + + [...] | | | | | etiology | [address] | [place] | | | | | ([facility]) | [place], | [place], [place] | | | | | | [place] [address] | [address] | | | | | | Phone: | Phone: | | | | | | [phone] | [phone] | | | | | | [phone] Fax: | Fax: | | | | | | | [phone] | | | | | | [phone] | | +--------+ + + + + [...] | | n | spinal canal | [address] | [address] [place] | | | | | | [place], | [place], [place] | | | | | Spondylolist | [place] [address] | [address] Phone: | | | | | hesis of | Phone: | [phone] | | | | | cervical | [phone] | Fax: | | | | | region | [phone] Fax: | [phone] | | | | | Right hip | | | | | | | pain | [phone] | | | | | | Trochanteric [...] + + | 06/04/ | Office | [facility] | Ramon Real | Cervical stenosis of | | 2012 | Visit | NEUROSURGERY [address] | MD Idris [address] | spinal canal | | | | [address] | St [place], [place] | (Primary Dx); | | | | [place], [place] | [address] | Spondylolisthesis of | | | | [address] | [phone] | cervical region; | | | | [phone] | | Right hip pain; | | | | | | Trochanteric | | | | | | bursitis of right | | | | | | hip; Lumbago; Leg | | | | | | pain, bilateral; | | | | | | Arthritis; Stroke of | | | | | | unknown etiology | | | | | | ([facility]); | | | | | | Spondylolisthesis [...] w nixon we obtain the studies from [facility] documented in this encounter Progress Notes Ramon Real MD - 06/04/2012 3:46 PM PSTFormatting of this note might be differen t from the original. Ramon Real MD [address] [facility] [address] [place], [place] [address] FAX: NEUROSURGERY HISTORY AND PHYSICAL EXAMINATION CHIEF [...] evaluati on in the emergency department at [facility]. Apparently a CT scan not available to [...] Stroke Syncope and collapse Cancer Breast Hyperlipidemia [place] (myocardial infarction) GERD (gastroesophageal reflux disease) Asthma [...] Intrinsics 5 5 Ulnar Intrinsics 5 5 Sales Representative Groceries Strength 4 (35#) 4+ (40#) Hip Flexion [...] Hypertension Stroke Syncope and collapse Cancer Hyperlipidemia [place] (myocardial infarction) GERD (gastroesophageal reflux disease) Asthma GENERAL DIAGNOSES: Past Medical History Diagnosis Date Coronary artery disease Diabetes mellitus Hypertension Stroke Syncope and collapse Cancer Breast Hyperlipidemia [place] (myocardial infarction) GERD (gastroesophageal reflux disease) Asthma Arthritis PLAN: Unfortunately Mrs. Winchester has very severe neck disease as well as extensive medical comorbi dities. Additionally it appears that at this time her neck symptoms are not intact for prim hsawn concern. Rather these episodes of altered mental status, hemiparesis, and unresponsiven ess which have not been adequately diagnosed are. We will therefore make arrangements for h er to be evaluated by a neurologist as soon as possible. We'll also attempt to obtain imagi ng studies which were obtained at [facility] to facilitate that. Once we have his [...] | 2018 | Visit | | [address] | | | | | | [place] | | | | | | [place] [address] | | | | | | [phone] | | | | | | | | +--------+---------+ + + + | 07/30/ | Office | Cardiology | Agata Tinajero DO | | | 2019 | Visit | | [address] | | | | | | [place] | | | | | | [address] | | | | | | | [...]
--- OUTSIDE RECORDS SUMMARY | ~2019-05-12 | XMS | Encounter Summary ---
Demographics + + + | Address | [address] | | | [place] [address] | + + + | Home Phone [...] [place], | | | | | [place] [address] | | + + + + + | Kellen Briones | ECON | [place], [place] | | | | | [address] | | + + + + + Care Team Providers + +------+ + | Care Automation Tester Name | Role | Phone | + +------+ + | Anna De Guzman PA-C | PCP | | + +------+ + Encounter Details +--------+ + + + + | Date | Type | Department | Care Team | Description | +--------+ + + + + | 09/30/ | Hospital | [facility] | [place], | DDD (degenerative | | 2015 | Encounter | MED CTR XRAY [address] | [address] | disc disease), | | | | [place] | [facility], | lumbar; Spinal | | | | [place] [address] | [place] [address] | stenosis of lumbar | | | | [phone] | [phone] | region with | | | | | | etnblkndonnha-D0-E7 | | | | | Grief CounselorJordan | level moderately | | | | [...] | | | | | | [place] [address] | | | | | | [phone] | | | | | | | | +--------+---------+ + + + | 07/30/ | Office | Cardiology | Agata Tinajero DO | | | 2019 | Visit | | [address] | | | | | | [place] | | | | | | [address] | | | | | | | [...] with | | | | | | ehzsmgxhonqnp-M9-Y0 | | | | | | level [...] presents to the fluoroscopy suite for fluoroscopically-guided [facility] | | bilateral L5-S1 transforaminal epidural [...] + | Performing | Address | City/[facility] | Phone Number | | Organization | | | | + + + + + | [address] | [address] | [place] | [phone] | | [facility] | | [address] | | | - IMAGING | | | | + + + + + documented in this encounter Visit Diagnoses + + | Diagnosis | + + | DDD (degenerative disc disease), lumbar Degeneration of lumbar or lumbosacral | | intervertebral disc | + + | Spinal stenosis of lumbar region with ugneuukkewfpd-U4-P0 level moderately severe | | Spinal stenosis, [...] | | | | First dose on [facility] 09/30/14 at | | | | [...] PM PDT | | | | | [facility] 09/30/14 at 1448, For 1 dose, [...]
--- OUTSIDE RECORDS SUMMARY | ~2019-05-12 | XMS | Encounter Summary ---
Demographics + + + | Address | [address] | | | [place] [address] | + + + | Home Phone [...] [place], | | | | | [place] [address] | | + + + + + | Kellen Briones | ECON | [place], [place] | | | | | [address] | | + + + + + Care Team Providers + +------+ + | Care Preschool Director Name | Role | Phone | [...] | | n | spinal canal | [address] | [address] [place] | | | | | | [place], | [place], [place] | | | | | Spondylolist | [place] [address] | [address] Phone: | | | | | hesis of | Phone: | [phone] | | | | | cervical | [phone] | Fax: | | | | | region | [phone] Fax: | [phone] | | | | | Right hip | | | | | | | pain | [phone] | | | | | | Trochanteric [...] + + | 07/23/ | Office | [facility] [place] | Tk Ann | Lumbar radiculopathy | | 2013 | Visit | PHYSIATRY [address] | TMD [address] | (Primary Dx); DDD | | | | [address], | [place] | (degenerative disc | | | | [place] [address] | [address] | disease), lumbar; | | | | [phone] | | 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; | | | | | | Spinal stenosis of | | | | | | lumbar region with | | | | | | sarwatuinsflu-K5-H7 | | | | | | level [...] - 07/23/2012 11:07 AM PSTFollow-up at the [facility] t hirty minutes before your scheduled procedure [...] our off ice. Please also provide a wedding transportation driver to take you home on the [...] Stroke Syncope and collapse Cancer Breast Hyperlipidemia CT (myocardial infarction) GERD (gastroesophageal reflux disease) Asthma [...] 4. Spinal stenosis of lumbar region with vwpvvidcvgirq-W3-W9 level moderately severe 5. Facet arthritis of [...] issue. Reportedly she has already seen a director product management and nothing abnormal w as found. She [...] | 2019 | Visit | | [address] | | | | | | [place], | | | | | | [place] [address] | | | | | | [phone] | | | | | | | | +--------+---------+ + + + | 07/30/ | Office | Cardiology | Agata Tinajero DO | | | 2019 | Visit | | [address] | | | | | | [place] | | | | | | [address] | | | | | | | [...] | Spinal stenosis of lumbar region with jjoufznoxctpj-J3-V8 level moderately severe | | Spinal stenosis, [...]
--- OUTSIDE RECORDS SUMMARY | ~2019-05-12 | XMS | Encounter Summary ---
Demographics + + + | Address | [address] | | | [place] [address] | + + + | Home Phone [...] [place], | | | | | [place] [address] | | + + + + + | Kellen Briones | ECON | [place], [place] | | | | | [address] | | + + + + + Care Team Providers + +------+ + | Care Bumper And Painter Name | Role | Phone | + [...] Lumbar | NARESH Villareal-C | [address] | | | | | radiculopath | [address] | [place], | | | | | y | [address] | [place] | | | | | Procedures | [address] | [address] | | | | | MRI Lumbar | [place], | Phone: | | | | | Spine wo | [place] [address] | [phone] | | | | | Contrast | Phone: | Fax: | | | | | | [phone] | [phone] | | | | | | Fax: | | | | | | | [phone] | | +--------+--------+ + + + + [...] Lumbar | AYAAN Villareal | [address] | | | | | radiculopath | [address] | [place], | | | | | y | [address] | [place] | | | | | Procedures | [address] | [address] | | | | | MRI Lumbar | [place], | Phone: | | | | | Spine wo | [place] [address] | [phone] | | | | | Contrast | Phone: | Fax: | | | | | | [phone] | [phone] | | | | | | Fax: | | | | | | | [phone] | | +--------+--------+ + + + + Encounter Details +--------+ + + + + | Date | Type | Department | Care Team | Description | +--------+ + + + + | 01/22/ | Hospital | [facility] | Mono Diaz, | Lumbar radiculopathy | | 2018 | Encounter | MED CTR MRI [address] | PA-C [address] | | | | | [address] [place], | [address] [place] | | | | | [place] [address] | [place] [address] | | | | | [phone] | [phone] | | | | | | | [...] | 2019 | Visit | | [address] | | | | | | [place], | | | | | | [place] [address] | | | | | | [phone] | | | | | | | | +--------+---------+ + + + | 07/30/ | Office | Cardiology | Agata Tinajero DO | | | 2020 | Visit | | [address] | | | | | | [place] | | | | | | [address] | | | | | | | [...] L4 nerve root along with the descending L3wjpno | | roots within the subarticular recesses.L5-S1: Moderate to severe disc space narrowing | | and generalized disc osteophytecomplex combine with dorsal ligamentous and facet | | hypertrophy to moderatelynarrow the foramina to a similar degree, with encroachment on | | the exiting F1lxalb roots along with the descending S1 nerve [...] DISEASE AND | | MILD ANTEROLISTHESIS AT E25-F2VZUE MILD STENOSIS.7. LEVOSCOLIOSIS AND MULTILEVEL FACET | [...]
--- OUTSIDE RECORDS SUMMARY | ~2019-05-12 | XMS | Encounter Summary ---
Demographics + + + | Address | [address] | | | [place] [address] | + + + | Home Phone [...] [place], | | | | | [place] [address] | | + + + + + | Kellen Briones | ECON | [place], [place] | | | | | [address] | | + + + + + Care Team Providers + +------+ + | Care Crusher Wet Ground Mica Name | Role | Phone | + [...] Lumbar | AYAAN Villareal | [address] | | | | | radiculopath | [address] | [place], | | | | | y | [address] | [place] | | | | | Procedures | [address] | [address] | | | | | MRI Lumbar | [place], | Phone: | | | | | Spine wo | [place] [address] | [phone] | | | | | Contrast | Phone: | Fax: | | | | | | [phone] | [phone] | | | | | | Fax: | | | | | | | [phone] | | +--------+--------+ + + + + Reason for Visit + + + | Reason | Comments | + + + | Follow-up | Low Back Pain | + + + Encounter Details +--------+---------+ + + + | Date | Type | Department | Care Team | Description | +--------+---------+ + + + | 01/07/ | Office | [facility] | Mono Diaz, | Lumbar radiculopathy | | 2018 | Visit | PHYSIATRY [address] | PA-C [address] | (Primary Dx); | | | | [place], | [address] [place] | Spinal stenosis of | | | | [place] [address] | [place] [address] | lumbar region with | | | | [phone] | [phone] | djjdsieoerxar-R5-Q8 | | | | | | level [...] press against a nerve. Date Last Reviewed: 03/06/201519997287-4510 [employer] [place] [address]. All righ ts reserved. This information is [...] and narcotic medications use; she currently uses Chapin, Flexeril and ga bapentin. She is taking [...] PT (multiple sessions over the years) and day care home provider. Unfortunately Clementine Winchester continues to have [...] | 2018 | Visit | | [address] | | | | | | [place] | | | | | | [place] [address] | | | | | | [phone] | | | | | | | | +--------+---------+ + + + | 07/30/ | Office | Cardiology | Agata Tinajero DO | | | 2019 | Visit | | [address] | | | | | | [place] | | | | | | [address] | | | | | | | [...] L4 nerve root along with the descending T5cisow | | roots within the subarticular recesses.L5-S1: Moderate to severe disc space narrowing | | and generalized disc osteophytecomplex combine with dorsal ligamentous and facet | | hypertrophy to moderatelynarrow the foramina to a similar degree, with encroachment on | | the exiting C0nmecf roots along with the descending S1 nerve [...] DISEASE AND | | MILD ANTEROLISTHESIS AT P70-B5EZRY MILD STENOSIS.7. LEVOSCOLIOSIS AND MULTILEVEL FACET | [...] | Spinal stenosis of lumbar region with wkckqizkyfnvm-C3-S2 level moderately severe | | Spinal stenosis, lumbar region, without neurogenic claudication | + + documented in this encounter
--- OUTSIDE RECORDS SUMMARY | ~2019-05-12 | XMS | Encounter Summary ---
Demographics + + + | Address | [address] | | | [place] [address] | + + + | Home Phone [...] [place], | | | | | [place] [address] | | + + + + + | Kellen Briones | ECON | [place] | | | | | [address] | | + + + + + Care Team Providers + +------+ + | Care Stem Cutter Name | Role | Phone | [...] Provider Unknown | | | | | [place], [place] | [phone] | | | | | [address] | | | | | | [phone] | | | +--------+ + + + [...] | | | | | | [place] [address] | | | | | | [phone] | | | | | | | | +--------+---------+ + + + | 07/30/ | Office | Cardiology | Agata Tinajero DO | | | 2019 | Visit | | [address] | | | | | | [place] | | | | | | [address] | | | | | | | [...]
--- OUTSIDE RECORDS SUMMARY | ~2019-05-12 | XMS | Encounter Summary ---
Demographics + + + | Address | [address] | | | [place] [address] | + + + | Home Phone [...] [place], | | | | | [place] [address] | | + + + + + | Kellen Briones | ECON | [place], [place] | | | | | [address] | | + + + + + Care Team Providers + +------+ + | Care Blueprinter Name | Role | Phone | + [...] | Lumbosacral | Marissa, | [address] | | | | | spondylosis | Tk Monreal MD | [place], | | | | | without | [address] | [place] | | | | | myelopathy | [place] | [address] | | | | | Procedures | [place], [place] | Phone: | | | | | [place] | [address] | [phone] | | | | | DX/THER AGNT | Phone: | Fax: | | | | | [place] | [phone] | [phone] | | | | | FACET JOINT, | Fax: | | | | | | | [phone] | | | | | | CERV/THORAC, | | | | | | | 1ST LEVEL | | | | | | | [place] | | | | | | | DX/THER AGNT | | | | | | | [place] | | | | | | | FACET JOINT, | | | | | | | | | | | | | | CERV/THORAC, | | | | | | | 2ND LEVEL | | | | | | | [place] | | | | | | [...] + + | 09/24/ | Hospital | [facility] | Tk Ann | Neck pain on right | | 2013 | Encounter | MED CTR XRAY [address] | T, [address] | side; Facet | | | | [place] | ST [place], [place] | arthritis of | | | | [place] [address] | [id number] | cervical region | | | | [phone] | | | | | | | Order WorkerJordan | | +--------+ + + + + [...] | | | | | | [place] [address] | | | | | | [phone] | | | | | | | | +--------+---------+ + + + | 07/30/ | Office | Cardiology | Agata Tinajero DO | | | 2019 | Visit | | [address] | | | | | | [place] | | | | | | [address] | | | | | | | [...] Code 721.0 Ms. Clementine Winchester | [facility] | | presents to the fluoroscopy suite for fluoroscopically-guided C4-C5, [facility] | | C5-C6 and C6-C7 [...] + | [facility] | [address] | [place], [place] | [phone] | | [facility] | | [address] | | | - IMAGING | | [...]
--- OUTSIDE RECORDS SUMMARY | ~2019-05-12 | XMS | Encounter Summary ---
Demographics + + + | Address | [address] | | | [place] [address] | + + + | Home Phone [...] [place], | | | | | [place] [address] | | + + + + + | Kellen Briones | ECON | [place], [place] | | | | | [address] | | + + + + + Care Team Providers + +------+ + | Care Crown And Bridge Technician Name | Role | Phone | [...] Thoracic or | [place], | [address] | | | | | lumbosacral | Tk Monreal MD | [place], | | | | | neuritis or | [address] | [place] | | | | | | [place] | [address] | | | | | radiculitis, | [place], [place] | Phone: | | | | | unspecified | [address] | [phone] | | | | | Procedures | Phone: | Fax: | | | | | IN INJECT | [phone] | [phone] | | | | | ANES/STEROID | Fax: | | | | | | FORAMEN | [phone] | | | | | | LUMBAR/SACRA [...] + + | 10/06/ | Hospital | [facility] | Tk Ann | Lumbar radiculopathy | | 2013 | Encounter | MED CTR XRAY [address] | T, [address] | | | | | [place] | ST [place], [place] | | | | | [place] [address] | [address] | | | | | [phone] | | | | | | | Circle Shear Operator, [place] | | +--------+ + + + [...] | | | | | | [place] [address] | | | | | | [phone] | | | | | | | | +--------+---------+ + + + | 07/30/ | Office | Cardiology | Tinajero Agata, DO | | | 2019 | Visit | | [address] | | | | | | [address] [address] [place] | | | | | | [address] | | | | | | | [...] presents to the fluoroscopy suite for fluoroscopically-guided [facility] | | bilateral L5-S1 transforaminal epidural [...] ST. | [address] | [place] | [phone] | | [facility] | | [address] | | | - IMAGING | | [...]
--- OUTSIDE RECORDS SUMMARY | ~2019-05-12 | XMS | Encounter Summary ---
Demographics + + + | Address | [address] | | | [place] [address] | + + + | Home Phone [...] [place], | | | | | [place] [address] | | + + + + + | Kellen Briones | ECON | [place], [place] | | | | | [address] | | + + + + + Care Team Providers + +------+ + | Care Rn Perioperative Name | Role | Phone | + +------+ + | Anna De Guzman PA-C | PCP | | + +------+ + Encounter Details +--------+ + + + + | Date | Type | Department | Care Team | Description | +--------+ + + + + | 06/04/ | Hospital | [facility] | RealRamon das | Neck pain | | 2012 - | Encounter | MED CTR XRAY [address] | FMD [address] | | | | | [place] | [place], [place] | | | 06/06/ | | [place] [address] | [address] | | | 2012 | | [phone] | [phone] | | | | | | [...] | 2019 | Visit | | [address] | | | | | | [place], | | | | | | [place] [address] | | | | | | [phone] | | | | | | | | +--------+---------+ + + + | 07/30/ | Office | Cardiology | Agata Tinajero DO | | | 2019 | Visit | | [address] | | | | | | [place] | | | | | | [address] | | | | | | | [...] Performed At | + + + | [facility] | [place] | | Department [address] [place] [address] | [facility] | | [ rep ct street1+[address]] [ rep ct [facility] | | st zip] Signed | - IMAGING | | | | | Patient Name: CLEMENTINE WINCHESTER Physician: | | | ARRE.01 : 1940 Age: 72 Sex: F Unit #: [id number] | | | Exam Date: 06/04/12 Location: [facility] | | | Report #: [id number] Page: | | | %(RAD)RES..mtdd.print.filter("pg") of %(RAD) | | | RES..mtdd.print.filter("tpg") | | | | | | Accession Number: [id number] | | | CERVICAL SPINE, 06/04/2012 CLINICAL [...] | | | Date/Time: 06/04/2012 17:12 Supervisor Abattoir: | | | <<Signature on File>> | | | | | | Gordon Burrell MD06/05/12 0852 <Electronically signed by | | | Gordon Burrell MD> Gordon Burrell MD 06/04/12 | | | 1701 Supervisor Abattoir: [employer] Aqwgpvmcrtjxq21/02/13 1712 | | | Ramon Real MD | | + + + + + + + + | Performing | Address | City/State/Zipcode | Phone Number | | Organization | | | | + + + + + | [facility] [facility] | [address] | [place] | [phone] | | [facility] | | [address] | | | - IMAGING | | | | + + + + + documented in this encounter Visit Diagnoses + + | Diagnosis | + + | Neck pain Cervicalgia | + + documented in this encounter
--- OUTSIDE RECORDS SUMMARY | ~2019-05-12 | XMS | Encounter Summary ---
Demographics + + + | Address | [address] | | | [place] [address] | + + + | Home Phone [...] [place], | | | | | [place] [address] | | + + + + + | Kellen Briones | ECON | [place], [place] | | | | | [address] | | + + + + + Care Team Providers + +------+ + | Care Vending Machine Attendant Name | Role | Phone | [...] + + | 05/20/ | Office | [facility] | Tk Ann | Lumbar radiculopathy | | 2013 | Visit | PHYSIATRY [address] | TMD [address] | (Primary Dx); DDD | | | | [place], | [place] | (degenerative disc | | | | [place] [address] | [phone] | disease), lumbar; | | | | [phone] | | Facet arthritis of | | [...] with | | | | | | xplbhbblbdtzu-Q4-M5 | | | | | | level [...] of the procedure you must provide a courtesy driver to take you home. For all [...] spinal stenosis. Her last injection was in [facility] of this year. She reports that [...] and narcotic medications use; she currently uses Sebastian, Flexeril and ga bapentin. Patient's medications, allergies, [...] | 2018 | Visit | | [address] | | | | | | [place], | | | | | | [place] [address] | | | | | | [phone] | | | | | | | | +--------+---------+ + + + | 07/30/ | Office | Cardiology | Agata Tinajero DO | | 2019 | Visit | | [address] | | | | | | [facility] | | | | | | [address] | | | | | | | [...] for fluoroscopically-guided [facility] | | bilateral L5-S1 transforaminal epidural [...] | + + + + + | [facility] | [address] | [place] | [phone] | | [facility] | | [address] | | | - IMAGING | | [...] | Spinal stenosis of lumbar region with jqyrlvzlgumxr-T2-T4 level moderately severe | | Spinal stenosis, lumbar region, without neurogenic claudication | + + documented in this encounter
--- OUTSIDE RECORDS SUMMARY | ~2019-05-12 | XMS | Encounter Summary ---
Demographics + + + | Address | [address] | | | [place] [address] | + + + | Home Phone [...] [place], | | | | | [place] [address] | | + + + + + | Kellen Briones | ECON | [place] | | | | | [address] | | + + + + + Care Team Providers + +------+ + | Care Manager User Interface Name | Role | Phone | + [...] | | | [address] | Way [place], [place] | | | | | [place], [place] | [address] | | | | | [address] | | | | | | [phone] | | | +--------+ + + + [...] | 2019 | Visit | | [address] | | | | | | [place], | | | | | | [place] [address] | | | | | | [phone] | | | | | | | | +--------+---------+ + + + | 07/30/ | Office | Cardiology | Agata Tinajero DO | | | 2019 | Visit | | [address] | | | | | | [place] | | | | | | [address] | | | | | | | [...] | maxP.57 mmHg TR Vmax: 2.89 m/s Groover Operator: | | | Authenticated by: BUCK SOTO [...] cmLVPWd: 1.17 | | cmLVOT Area: 3.02 jz8RSWP Diam: 1.96 cm%FS: 38.74 %EF(Teich): 69.95 %ESV(Teich): [...] (A-L): 22.04 ml/m2LAAs A2C: | | 13.50 hv9PRDZJ A-L A2C: 36.98 mlLALs A2C: 4.18 cmLAAs A4C: 13.35 mv3AOCFG A-L A4C: | | 31.07 mlLALs A4C: 4.87 cmRAAs: 22.15 gg4IIOVJ A-L: 78.87 mlRAESV MOD: 76.76 | | mlRALs: 5.28 cmTAPSE: 1.36 cmAV maxP.05 mmHgAV meanP.09 mmHgAV Vmax: | | 1.50 m/Shreyas Vmean: 1.08 m/Shreyas VTI: 30.75 cmAVA Vmax: 2.05 cm2AVA (VTI): 2.07 | | iy6SJMI Vmax: 0.00 cm2/m2AVAI (VTI): 0.00 cm2/m2LVOT maxP.16 mmHgLVOT meanPG: | | 2.03 mmHgLVSI Dopp: 38.41 ml/m2LVSV Dopp: 63.76 mlLVOT Vmax: 1.02 m/sLVOT Vmean: | | 0.65 m/sLVOT VTI: 21.09 cmMV A Obed: 1.25 m/sMV DecT: 137.22 msMV E Obed: 1.08 | | m/sMV E/A Ratio: 0.86MV PHT: 39.79 msMVA By PHT: 5.52 oe4Wlxpsi e': 0.03 | | m/sSeptal E/e': 33.19Lateral e': 0.05 m/sLateral E/e': 19.41RAP: 10 mmHgRVSP: | | 43.57 mmHgTR maxP.57 mmHgTR Vmax: 2.89 m/s Groover Operator:Authenticated by: | | ELIZABETH ROYeport Date/Time: 08-20-2017 [...] |TR Vmax: 2.89 m/s | | | |Groover Operator: | |Authenticated by: BUCK SOTO MD | [...]
--- OUTSIDE RECORDS SUMMARY | ~2019-05-12 | XMS | Encounter Summary ---
Demographics + + + | Address | [address] | | | [place] [address] | + + + | Home Phone [...] [place], | | | | | [place] [address] | | + + + + + | Kellen Briones | ECON | [place], [place] | | | | | [address] | | + + + + + Care Team Providers + +------+ + | Care Device Sales Consultant Name | Role | Phone | [...] + | 04/30/ | Refill | [facility] | Irving Becerril, | Medication Refill | | 2015 | | NEUROSURGERY [address] | DO [address] | | | | | [address] | [address] [place], [place] | | | | | [place], [place] | [id number] | | | | | [address] | | | | | | [phone] | | | +--------+--------+ + + + [...] | | | | | | [place] [address] | | | | | | [phone] | | | | | | | | +--------+---------+ + + + | 07/30/ | Office | Cardiology | Agata Tinajero DO | | | 2019 | Visit | | [address] | | | | | | [place] | | | | | | [address] | | | | | | | | +--------+---------+ + + + documented as of this encounter Visit Diagnoses Not on filedocumented in this encounter"
--- OUTSIDE RECORDS SUMMARY | ~2019-05-12 | XMS | Encounter Summary ---
Demographics + + + | Address | [address] | | | [place] [address] | + + + | Home Phone [...] [place], | | | | | [place] [address] | | + + + + + | Kellen Briones | ECON | [place], [place] | | | | | [address] | | + + + + + Care Team Providers + +------+ + | Care Batterboard Setter Name | Role | Phone | + +------+ + | Anna De Guzman PA-C | PCP | | + +------+ + Encounter Details +--------+ + + + + | Date | Type | Department | Care Team | Description | +--------+ + + + + | 03/05/ | Hospital | [facility] | IsakkaydenkaileeTk mathis | | | 2012 | Encounter | MED CTR XRAY [address] | T, [address] | | | | | [place] | [place], [place] | | | | | [place] [address] | [address] | | | | | [phone] | | | +--------+ + + + [...] | | | | | | [place] [address] | | | | | | [phone] | | | | | | | | +--------+---------+ + + + | 07/30/ | Office | Cardiology | Agata Tinajero DO | | | 2019 | Visit | | [address] | | | | | | [place] | | | | | | [address] | | | | | | | | +--------+---------+ + + + documented as of this encounter Visit Diagnoses Not on filedocumented in this encounter"
--- OUTSIDE RECORDS SUMMARY | ~2019-05-12 | XMS | Encounter Summary ---
Demographics + + + | Address | [address] | | | [place] [address] | + + + | Home Phone [...] [place], | | | | | [place] [address] | | + + + + + | Kellen Briones | ECON | [place], [place] | | | | | [address] | | + + + + + Care Team Providers + +------+ + | Care Solutions Engineer Name | Role | Phone | + +------+ + | Anna De Guzman PA-C | PCP | | + +------+ + Encounter Details +--------+ + + + + | Date | Type | Department | Care Team | Description | +--------+ + + + + | 09/30/ | Hospital | [facility] | [place], | DDD (degenerative | | 2015 | Encounter | MED CTR XRAY [address] | [place] [address] | disc disease), | | | | [place] | [facility], | lumbar; Spinal | | | | [place] [address] | [place] [address] | stenosis of lumbar | | | | [phone] | [phone] | region with | | | | | | fhbiomnylpczf-G5-X0 | | | | | Surgery Scheduling CoordinatorJordan | level moderately | | | | [...] | | | | | | [place] [address] | | | | | | [phone] | | | | | | | | +--------+---------+ + + + | 07/30/ | Office | Cardiology | Agata Tinajero DO | | | 2019 | Visit | | [address] | | | | | | [place] | | | | | | [address] | | | | | | | [...] with | | | | | | frnsxmcazxuim-M7-C1 | | | | | | level [...] radiculopathy ICD-9 Code 724.4 Clementine [place] | [facility] | | Annabella presents to the fluoroscopy suite for fluoroscopically-guided [facility] | | bilateral L5-S1 transforaminal epidural [...] + + | Performing | Address | City[facility] | Phone Number | | Organization | | | | + + + + + | [facility] | [place] | [place] | [phone] | | [facility] | | [address] | | | - IMAGING | | | | + + + + + documented in this encounter Visit Diagnoses + + | Diagnosis | + + | DDD (degenerative disc disease), lumbar Degeneration of lumbar or lumbosacral | | intervertebral disc | + + | Spinal stenosis of lumbar region with jybktnmtvpblm-G2-J1 level moderately severe | | Spinal stenosis, [...] | | | | First dose on [facility] 09/30/14 at | | | | [...] PM PDT | | | | | [facility] 09/30/14 at 1448, For 1 dose, [...]
--- OUTSIDE RECORDS SUMMARY | ~2019-05-12 | XMS | Encounter Summary ---
Demographics + + + | Address | [address] | | | [place] [address] | + + + | Home Phone [...] [place], | | | | | [place] [address] | | + + + + + | Kellen Briones | ECON | [place], [place] | | | | | [address] | | + + + + + Care Team Providers + +------+ + | Care Prescription Clerk Lenses Name | Role | Phone | + [...] + | 04/30/ | Refill | [facility] | Irving Becerril, | Medication Refill | | 2015 | | NEUR[address]URGERY [address] | DO [address] | | | | | [address] | [address] [place], [place] | | | | | [place], [place] | [id number] | | | | | [address] | | | | | | [phone] | | | +--------+--------+ + + + [...] | | | | | | [place] [address] | | | | | | [phone] | | | | | | | | +--------+---------+ + + + | 07/30/ | Office | Cardiology | Agata Tinajero DO | | | 2019 | Visit | | [address] | | | | | | [place] | | | | | | [address] | | | | | | | | +--------+---------+ + + + documented as of this encounter Visit Diagnoses Not on filedocumented in this encounter"
--- OUTSIDE RECORDS SUMMARY | ~2019-05-12 | XMS | Encounter Summary ---
Demographics + + + | Address | [address] | | | [place] [address] | + + + | Home Phone [...] [place], | | | | | [place] [address] | | + + + + + | Kellen Briones | ECON | [place], [place] | | | | | [address] | | + + + + + Care Team Providers + +------+ + | Care Order Selector Name | Role | Phone | [...] + + | 04/13/ | Telephone | [facility] | Irving Becerril, | Other (Return to | | 2015 | | NEUROSURGERY [address] | DO [address] | work ) | | | | [address] [facility] [address] | [address] [place], [place] | | | | | [place], [place] | [id number] | | | | | [address] | | | | | | [phone] | | | +--------+ + + + [...] | | | | | | [place] [address] | | | | | | [phone] | | | | | | | | +--------+---------+ + + + | 07/30/ | Office | Cardiology | Agata Tinajero DO | | | 2019 | Visit | | [address] | | | | | | [place] | | | | | | [address] | | | | | | | | +--------+---------+ + + + documented as of this encounter Visit Diagnoses Not on filedocumented in this encounter"
--- OUTSIDE RECORDS SUMMARY | ~2019-05-12 | XMS | Encounter Summary ---
Demographics + + + | Address | [address] | | | [place] [address] | + + + | Home Phone [...] [place], | | | | | [place] [address] | | + + + + + | Kellen Briones | ECON | [place], [place] | | | | | [address] | | + + + + + Care Team Providers + +------+ + | Care Engineer Technical Staff Name | Role | Phone | + [...] | | | | | | [place] [address] | | | | | | [phone] | | | +--------+ + + + [...] | | | | | | [place] [address] | | | | | | [phone] | | | | | | | | +--------+---------+ + + + | 07/30/ | Office | Cardiology | Agata Tinajero DO | | | 2019 | Visit | | [address] | | | | | | [place] | | | | | | [address] | | | | | | | | +--------+---------+ + + + documented as of this encounter Visit Diagnoses Not on filedocumented in this encounter"
--- OUTSIDE RECORDS SUMMARY | ~2019-05-12 | XMS | Clinical Summary ---
Demographics + + + | Address | [address] | | | [place] [address] | + + + | Home Phone | | + + + | Preferred Language | Unknown | + + + | Marital Status | | + + + | Synagogue Affiliation | Unknown | + + + | Race | Unknown | + + + | Ethnic Group | Unknown | + + + Author + + + | Author | [facility] (Historical as of | | | 01-17-19) | + + + | Organization | [facility] (Historical as of | | | 01-17-19) | + + + | Address | Unknown | + + + | Phone | Unavailable | + + + Support + + + + + | Name | Relationship | Address | Phone | + + + + + | Lucy Winchester | ECON | [place], | | | | | [place] [address] | | + + + + + | Kellen Briones | ECON | Unknown | | + + + + + Care Team Providers + +------+ + | Care Machine Operator Name | Role | Phone [...] | + + + | History of MA (myocardial infarction) | 03/30/2016 | + + [...] +------+-------+ + | MEDICARE | MEDICA | [id number] | | | [address] | | | RE | | | | [place] [address] | | | IP-OP | | | | | + +--------+ +------+-------+ + | UNITED HEALTHCARE | UNITED | [id number] | | | | | | | | | | | | | HEALTH | | | | | | | CARE - | | | | | | | AARP | | | | | + +--------+ +------+-------+ + | STEPHANIE - ERICKA - | CHAMPV | [id number] | | | [place] [phone] | | [place] | [place] | | | | [place] | | | | | | | [address] | + +--------+ +------+-------+ + + +--------+ [...] | | al/Fam | | 194 | [phone] | [place] | | | amanuel | | | [address]: | [address] | | | | | | | | | | | | [phone] | | | | | | | [phone] | | + +--------+ +--------+ + +"
--- OUTSIDE RECORDS SUMMARY | ~2019-05-12 | XMS | Encounter Summary ---
Demographics + + + | Address | [address] | | | [place] [address] | + + + | Home Phone [...] [place], | | | | | [place] [address] | | + + + + + | Kellen Briones | ECON | [place], [place] | | | | | [address] | | + + + + + Care Team Providers + +------+ + | Care Salvage Winder Name | Role | Phone | + [...] | | | Procedures | 1100 | Eads Nuc | | | | | NM Nuclear | [address] | Med 1100 | | | | | Stress Test | PHUC F | [address] | | | | | (Vasodilator | [place], [place] | [place] | | | | | ) | [address] | [address] | | | | | | Phone: | Phone: | | | | | | [phone] | [phone] | | | | | | Fax: | Fax: | | | | | | [phone] | [phone] | +--------+--------+ + + + + Reason [...] | | | Procedures | 1100 | Eads Nuc | | | | | NM Nuclear | [address] | Med 1100 | | | | | Stress Test | PHUC F | [address] | | | | | (Vasodilator | [place], [place] | [place] | | | | | ) | [address] | [address] | | | | | | Phone: | Phone: | | | | | | [phone] | [phone] | | | | | | Fax: | Fax: | | | | | | [phone] | [phone] | +--------+--------+ + + + + Encounter Details +--------+ + + + + | Date | Type | Department | Care Team | Description | +--------+ + + + + | 02/16/ | Hospital | [facility] | Agata Tinajero DO | Hx of CABG | | 2019 | Encounter | CARDIOLOGY SEBRING | [address] | | | | | NUC MED 1100 | PHUC [place], [place] | | | | | [address] | [address] | | | | | [place], [place] | | | | | | [address] | | | | | | [phone] | | | +--------+ + + + [...] | | | | | | [place] [address] | | | | | | [phone] | | | | | | | | +--------+---------+ + + + | 07/30/ | Office | Cardiology | Agata Tinajero DO | | | 2019 | Visit | | [address] | | | | | | [place] | | | | | | [address] | | | | | | | [...]
--- OUTSIDE RECORDS SUMMARY | ~2019-05-12 | XMS | Encounter Summary ---
Demographics + + + | Address | [address] | | | [place] [address] | + + + | Home Phone [...] [place], | | | | | [place] [address] | | + + + + + | Kellen Briones | ECON | [place], [place] | | | | | [address] | | + + + + + Care Team Providers + +------+ + | Care Mailer Apprentice Name | Role | Phone | [...] | Lumbar | [place], | [address] | | | | | radiculopath | Tk Monreal MD | [place], | | | | | y | [address] | [place] | | | | | Procedures | [place] | [address] | | | | | [place] INJECT | [place], [place] | Phone: | | | | | ANES/STEROID | [address] | [phone] | | | | | FORAMEN | Phone: | Fax: | | | | | LUMBAR/SACRA | [phone] | [phone] | | | | | L W IMG | Fax: | | | | | | GUIDE ,1 | [phone] | | | | | | LEVEL [place] | | | | | | | [...] | | | | | | | [place] | | | | | | | [...] + + | 05/12/ | Hospital | [facility] | Mono iDaz, | Lumbar radiculopathy | | 2018 | Encounter | MED CTR XRAY [address] | PA-C [address] | | | | | [place] | [address] [place] | | | | | [place] [address] | [place] [address] | | | | | [phone] | [phone] | | | | | | | | | | | | Rehabilitation Counsellor, [facility] | | +--------+ + + + [...] | | | | | [place] [address] | | | | | | [phone] | | | | | | | | +--------+---------+ + + + | 07/30/ | Office | Cardiology | Agata Tinajero DO | | | 2019 | Visit | | [address] | | | | | | [place] | | | | | | [address] | | | | | | | [...] + | Performing | Address | City/State[facility] | Phone Number | | Organization [...]
--- OUTSIDE RECORDS SUMMARY | ~2019-05-12 | XMS | Clinical Summary ---
Demographics + + + | Address | [address] | | | [place] [address] | + + + | Home Phone | | + + + | Preferred Language | Unknown | + + + | Marital Status | | + + + | Islam Affiliation | Unknown | + + + | Race | Unknown | + + + | Ethnic Group | Unknown | + + + Author + + + | Author | [facility] (Historical as of | | | 01-17-19) | + + + | Organization | [facility] (Historical as of | | | 01-17-19) | + + + | Address | Unknown | + + + | Phone | Unavailable | + + + Support + + + + + | Name | Relationship | Address | Phone | + + + + + | Lucy Winchester | ECON | [place], | | | | | [place] [address] | | + + + + + | Kellen Briones | ECON | Unknown | | + + + + + Care Team Providers + +------+ + | Care Track Grinder Operator Name | Role | Phone | [...] | + + + | History of MD (myocardial infarction) | 03/30/2016 | + + [...] +------+-------+ + | MEDICARE | MEDICA | [id number] | | | [address] | | | RE | | | | [place] [address] | | | IP-OP | | | | | + +--------+ +------+-------+ + | UNITED HEALTHCARE | UNITED | [id number] | | | | | | | | | | | | | HEALTH | | | | | | | CARE - | | | | | | | AARP | | | | | + +--------+ +------+-------+ + | STEPHANIE - ERICKA - | CHAMPV | [id number] | | | [place] [phone] | | [place] | A | | | | [place] | | | | | | | [address] | + +--------+ +------+-------+ + + +--------+ [...] | | al/Fam | | 194 | [phone] | [place] | | | amanuel | | | [address]: | [address] | | | | | | | | | | | | | [phone] | | | | | | | 8636 | | + +--------+ +--------+ + +"
--- OUTSIDE RECORDS SUMMARY | ~2019-05-12 | XMS | Encounter Summary ---
Demographics + + + | Address | [address] | | | [place] [address] | + + + | Home Phone [...] [place], | | | | | [place] [address] | | + + + + + | Kellen Briones | ECON | [place] | | | | | [address] | | + + + + + Care Team Providers + +------+ + | Care Construction Specialist Name | Role | Phone | [...] [address] | [address] [place], [place] | (Primary Dx) | | | | [place], [place] | [address] | | | | | [address] | | | | | | [phone] | | | +--------+ + + + [...] | 2018 | Visit | | [address] | | | | | | [place] | | | | | | [place] [address] | | | | | | [phone] | | | | | | | | +--------+---------+ + + + | 07/30/ | Office | Cardiology | Agata Tinajero DO | | | 2019 | Visit | | [address] | | | | | | [place] | | | | | | [address] | | | | | | | [...] + + | Performing | Address | City/State/[facility] | Phone Number | | Organization | | | | + +---------+ + + | [facility] | | | | + +---------+ + + documented in this encounter Visit Diagnoses + + | Diagnosis | + + | Status post cervical spinal fusion - Primary Arthrodesis status | + + documented in this encounter"
--- OUTSIDE RECORDS SUMMARY | ~2019-05-12 | XMS | Encounter Summary ---
Demographics + + + | Address | [address] | | | [place] [address] | + + + | Home Phone [...] [place], | | | | | [place] [address] | | + + + + + | Kellen Briones | ECON | [place], [place] | | | | | [address] | | + + + + + Care Team Providers + +------+ + | Care Neck Cutter Name | Role | Phone | + +------+ + | Anna De Guzman PA-C | PCP | | + +------+ + Encounter Details +--------+ + + + + | Date | Type | Department | Care Team | Description | +--------+ + + + + | 04/15/ | Hospital | [facility] | IsakkaydenkaileeTk mathis | | | 2012 | Encounter | MED CTR XRAY [address] | T, [address] | | | | | [place] | [place], [place] | | | | | [place] [address] | [address] | | | | | [phone] | | | +--------+ + + + [...] | | | | | | [place] [address] | | | | | | [phone] | | | | | | | | +--------+---------+ + + + | 07/30/ | Office | Cardiology | Agata Tinajero DO | | | 2019 | Visit | | [address] | | | | | | [place] | | | | | | [address] | | | | | | | [...] Performed At | + + + | [facility] | [place] | | Department [address] [facility] | [facility] | | [ rep [address]] [ rep [facility] | | [facility] Signed | - IMAGING | | | | | Patient Name: CLEMENTINE NUNEZ Physician: | | | : 1940 Age: 72 Sex: F Unit #: [id number] | | | Exam Date: 04/15/13 Location: [facility] | | | Report #: [id number] Page: | | | %(RAD)RES..mtdd.print.filter("pg") of %(RAD) | | | RES..mtdd.print.filter("tpg") | | | | | | Accession Number: [id number] | | | EPIDURAL STEROID INJECTION, 04/15/2013 [...] Transcribed | | | Date/Time: 04/17/2013 14:04 Banquet Director: | | | <<Signature on File>> | | | Tk Monreal | | | MD Marissa04/24/13 1211 <Electronically signed by Tk Monreal | | | Marissa ALVARADO> Tk Ann MD 04/17/13 1256 | | | Banquet Director: Lagotek Yscupkvrxujcz96/15/13 1404 | | | | | + + + + + + + + | Performing | Address | City/State/Zipcode | Phone Number | | Organization | | | | + + + + + | [address] | [address] | [place] | [phone] | | [facility] | | [address] | | | - IMAGING | | | | + + + + + documented in this encounter Visit Diagnoses Not on filedocumented in this encounter
--- OUTSIDE RECORDS SUMMARY | ~2019-05-12 | XMS | Clinical Summary ---
Demographics + + + | Address | [address] | | | [place] [address] | + + + | Home Phone [...] [place], | | | | | [place] [address] | | + + + + + | Kellen Briones | ECON | [place] | | | | | [address] | | + + + + + Care Team Providers + +------+ + | Care Teacher Of The Deaf/Hard Of Hearing Name | Role | Phone | + [...] 03/30/2016 | + + + | H/O MA (myocardial infarction) | 03/30/2016 | + [...] | Spinal stenosis of lumbar region with wonjtqwckgswu-M9-C2 level | 07/23/2012 | | moderately severe [...] | Hyperlipidemia | | + +---+ | MA (myocardial infarction) | | + +---+ | [...] | 2018 | Visit | | | afognak coronary | | | | | | artery of afognak | | | | | | heart [...] | 2019 | Visit | | [address] [facility] [address] | | | | | | [place], | | | | | | [place] [address] | | | | | | [phone] | | | | | | | | +--------+---------+ + + + | 07/30/ | Office | Cardiology | Agata Tinajero DO | | | 2019 | Visit | | [address] | | | | | | [place] | | | | | | [address] | | | | | | | [...] + +--------+--------+ +--------+--------+--------+ | Cage Funmilayo Ptc [id number] - | Generi | Anteri | [facility] - | | 10/20/ | [id number] | | [id number]: Qty: 1 on | c | or: | MEDT | | 2023 | 4 / | | 03/30/2016 by Irving Becerril | | Spine | | | | /[id number] | | DO Chloe at [facility] | | Cervic | | | | | | [facility] | | al | | | | | + +--------+--------+ +--------+--------+--------+ | Cage Funmilayo Ptc [id number] - | Generi | Anteri | [facility] - | | 01/03/ | [id number] | | [id number]: Qty: 1 on | c | or: | MEDT | | 2022 | 4 / | | 03/30/2016 by Irving Becerril | | Spine | | | | /[id number] | | DO Chloe at [facility] | | Cervic | | | | | | [facility] | | al | | | | | + +--------+--------+ +--------+--------+--------+ | Cage Funmilayo Ptc [id number] - | Generi | Anteri | [facility] - | | 10/20/ | 200031 | | [id number]: Qty: 1 on | c | or: | MEDT | | 2023 | 4 / | | 03/30/2016 by Irving Becerril | | Spine | | | | /[id number] | | A, DO at [facility] | | Cervic | | | | | | [facility] | | al | | | | | + +--------+--------+ +--------+--------+--------+ | Cage Funmilayo Ptc [id number] - | Generi | Anteri | [facility] - | | 10/20/ | 342951 | | [id number]: Qty: 1 on | c | or: | MEDT | | 2023 | 4 / | | 03/30/2016 by Irving Becerril | | Spine | | | | /80BS | | A, DO at [facility] | | Cervic | | | | | | [facility] | | al | | | | | + +--------+--------+ +--------+--------+--------+ | Putty Bone Db Grftn 2.5cc - | Graft | Anteri | [facility] - | | 06/30/ | [id number] | | [id number]: Qty: 1 | | or: | MEDT | | 2018 | | | on 03/30/2016 by Jerrica, | | Spine | | | | /[id number] | | Irving Corona DO at [facility] | | Cervic | | | | 6-016 | | [facility] | | al | | | | / | + +--------+--------+ +--------+--------+--------+ | Plate Ant Hockinson Cerv 75mm | Plate | Anteri | [facility] - | | | [id number] | | - [id number]: Qty: 1 | | or: | MEDT | | | / | | on 03/30/2016 by Jerrica, | | Spine | | | | | | Irving Corona DO at [facility] | | Cervic | | | | | | [facility] | | al | | | | | + +--------+--------+ +--------+--------+--------+ | Screw Slf-Drl V/A 4.0x16mm - | Screw | Anteri | SOF[facility]OR | | | [id number] | | [id number]: Qty: 5 on | | or: | ANGELEK - DIV | | | / | | 03/30/2016 by Irving Becerril | | Spine | [facility] | | | | | DO Chloe at [facility] | | Cervic | - [facility] | | | | | [facility] | | al | | | | | + +--------+--------+ +--------+--------+--------+ | Screw Slf-Drl V/A 4.0x17mm - | Screw | Anteri | [facility]OR | | | [id number] | | [id number]: Qty: 4 on | | or: | DANEK - DIV | | | | | 03/30/2016 by Irving Becerril | | Spine | [facility] | | | | | A, DO at [facility] | | [facility] | - [facility] | | | | | [facility] | | al | | | | | + +--------+--------+ +--------+--------+--------+ | Screw Slf-Dr V/A 4.5x15mm - | Screw | Anteri | [facility] - | | | [id number] | | [id number]: Qty: 1 on | | or: | MEDT | | | | | 03/30/2016 by Irving Becerril | | Spine | | | | | | A, DO [facility] | [facility] | | | | | | [facility] | | al | | | [...] + + | Performing | Address | City/State/[facility] | Phone Number | | Organization | [...] CT imaging was obtained through the | [facility] | | lumbar spine with [...] effects the | | right side at L1-V5iuasr it is severe and bilaterally at L5-S1 [...] +--------+ +---------+--------+ | AARP | AARP | [id number] | 06/03/19 | [phone] | | Indemn | | | MDCR | | 19-Pre | 0 | | ity | | | SUPPL | | sent | | | | + +--------+ +--------+ +---------+--------+ | | CHAMPV | [id number] | | [phone] | | Indemn | | | A | | 997-Pr | 7 | | ity | | | | | esent | | | | + +--------+ +--------+ +---------+--------+ | MEDICARE | MEDICA | [id number] | | [phone] | | Medica | | | RE | | 007-Pr | 5 | | re | | | PART A | | esent | | | | | | AND B | | | | | | + +--------+ +--------+ +---------+--------+ | MEDICARE | MEDICA | [id number] | | [phone] | | Medica | | | RE | | 012-Pr | 5 | | re | | | PART A | | esent | | | | | | AND B | | | | | | + +--------+ +--------+ +---------+--------+ | AARP | AARP | [id number] | 06/03/19 | [phone] | | Indemn | | | MDCR | | 19-Pre | 0 | | ity | | | SUPPL | | sent | | | | + +--------+ +--------+ +---------+--------+ | | CHAMPV | [id number] | | [phone] | | Indemn | [...] [place] | | | 6 (Home) | [address] | + +--------+ +--------+ + + | Clementine Winchester | Person | Self | [birth year] | [address] | | | al/Fam | | 1940 | [phone] | [place], [place] | | | amanuel | | | 6 (Home) | [address] | | | | | | [phone] | | | | | | | 3 (Work) | | + +--------+ +--------+ + + Advance Directives + + + + + | Type | Date Recorded | Patient | Explanation | | | | Certified Scrub Tech | | + + + + + | Power of | | | | | Player Development Executive | | | | + + + [...]
--- OUTSIDE RECORDS SUMMARY | ~2019-05-12 | XMS | Encounter Summary ---
Demographics + + + | Address | [address] | | | [place] [address] | + + + | Home Phone [...] [place], | | | | | [place] [address] | | + + + + + | Kellen Briones | ECON | [place], [place] | | | | | [address] | | + + + + + Care Team Providers + +------+ + | Care Fagoting Machine Operator Name | Role | Phone | + +------+ + | Anna De Guzman PA-C | PCP | | + +------+ + Encounter Details +--------+ + + + + | Date | Type | Department | Care Team | Description | +--------+ + + + + | 03/07/ | Hospital | [facility] | Irving Becerril, | Stroke of unknown | | 2016 | Encounter | MED CTR XRAY [address] | DO [address] | etiology ([facility]); | | | | [place] | [address] [place], [place] | Cerebrovascular | | | | [place] [address] | [address] | accident (CVA), | | | | [phone] | | unspecified | | | | | Caleb San MD | mechanism (HCC); | | | | | [address] | Lumbar | | | | | [place] | radiculopathy; | | | | | [address] | Cervical stenosis of | | | [...] involving | | | | | | yomba shoshone coronary | | | | | | artery of yomba shoshone | | | | | | heart without angina | | | | | | pectoris; 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 | | | | | | without complication | | | | | | ([facility]); Essential | | | | | | hypertension; | | | | | | Syncope and | | | | | | collapse; Cancer | | | | | | ([facility]); 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| | hyperlipidemia; ST | | | | | | elevation myocardial | | | | | | infarction (STEMI), | | | | | | unspecified artery | | | | | | ([facility]); | | [...] with | | | | | | wnxyovccmshnp-Y1-K7 | | | | | | level [...] | | ([facility]); DDD | | | | [...] | | | | | | [place] [address] | | | | | | [phone] | | | | | | | | +--------+---------+ + + + | 07/30/ | Office | Cardiology | Agata Tinajero DO | | | 2019 | Visit | | [address] | | | | | | [place] | | | | | | [address] | | | | | | | [...] involving | | | | | | yomba shoshone coronary | | | | | | artery of yomba shoshone | | | | | | heart [...] with | | | | | | mcsicxsdudjpc-R8-O1 | | | | | | level [...] | | | ([facility]) DDD | | | | | | [...] Lateral Chest COMPARISON: None. | [facility] | | FINDINGS: Sternal wires and [...] [address] 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
--- OUTSIDE RECORDS SUMMARY | ~2019-05-12 | XMS | Encounter Summary ---
Demographics + + + | Address | [address] | | | [place] [address] | + + + | Home Phone [...] Organization | [facility] | | [...] [place], | | | | | [place] [address] | | + + + + + | Kellen Briones | ECON | [place], [place] | | | | | [address] | | + + + + + Care Team Providers + +------+ + | Care Director Diversity Name | Role | Phone | + [...] | | | Procedures | [address] | [place] [address] | | | | | [place] Nuclear | [address] | Med 1100 | | | | | Stress Test | [address] | [address] | | | | | (Vasodilator | [place], [place] | [place], [place] | | | | | ) | [address] | [address] | | | | | | Phone: | Phone: | | | | | | [phone] | [phone] | | | | | | Fax: | Fax: | | | | | | [phone] | [phone] | +--------+--------+ + + + + Reason [...] | | | Procedures | [address] | [place] Nuc | | | | | NM Nuclear | [address] | Med 1100 | | | | | Stress Test | [address] F | [address] | | | | | (Vasodilator | [place], [place] | [place], [place] | | | | | ) | [address] | [address] | | | | | | Phone: | Phone: | | | | | | [phone] | [phone] | | | | | | Fax: | Fax: | | | | | | [phone] | [phone] | +--------+--------+ + + + + Encounter Details +--------+ + + + + | Date | Type | Department | Care Team | Description | +--------+ + + + + | 02/16/ | Hospital | [facility] | Agata Tinajero DO | Hx of CABG | | 2019 | Encounter | CARDIOLOGY [place] | [address] | | | | | NUC MED [address] | [address] [place], [place] | | | | | [address] | [address] | | | | | [place], [place] | | | | | | [address] | | | | | | [phone] | | | +--------+ + + + [...] | | | | | | [place] [address] | | | | | | [phone] | | | | | | | | +--------+---------+ + + + | 07/30/ | Office | Cardiology | Agata Tinajero DO | | | 2019 | Visit | | [address] | | | | | | [place] | | | | | | [address] | | | | | | | [...]
--- OUTSIDE RECORDS SUMMARY | ~2019-05-12 | XMS | Encounter Summary ---
Demographics + + + | Address | [address] | | | [place] [address] | + + + | Home Phone | | + + + | Preferred Language | Unknown | + + + | Marital Status | Unknown | + + + | Taoism Affiliation | Unknown | + + + [...] Providers + +------+ + | Care Manager Erp Name | Role | Phone | + [...] Rd | | | | | | [place], [place] | | | | | | [address] | | | +--------+ + + + [...]
--- OUTSIDE RECORDS SUMMARY | ~2019-05-12 | XMS | Encounter Summary ---
Demographics + + + | Address | [address] | | | [place] [address] | + + + | Home Phone [...] [place], | | | | | [place] [address] | | + + + + + | Kellen Briones | ECON | [place], [place] | | | | | [address] | | + + + + + Care Team Providers + +------+ + | Care Cab Supervisor Name | Role | Phone | + +------+ + | Anna De Guzman PA-C | PCP | | + +------+ + Encounter Details +--------+ + + + + | Date | Type | Department | Care Team | Description | +--------+ + + + + | 06/02/ | Hospital | [facility] | [facility] | | | 2012 | Encounter | MED CTR XRAY [address], [address] | | | | | [facility] | [place], [place] | | | | | [place] [address] | [id number] | | | | | [phone] | | | +--------+ + + + [...] | | | | | | [place] [address] | | | | | | [phone] | | | | | | | | +--------+---------+ + + + | 07/30/ | Office | Cardiology | Agata Tinajero DO | | | 2019 | Visit | | [address] | | | | | | [place] | | | | | | [address] | | | | | | | [...] Performed At | + + + | [facility] Diagnostic Imaging | [place] | | Department [address] [facility] | [facility] | | [ rep [address]] [ rep [facility] | | [facility]] Signed | - IMAGING | | | | | Patient Name: CLEMENTINE NUNEZ Physician: | | | WILFREOD. : 1940 Age: 73 Sex: F Unit #: [id number] | | | Exam Date: 06/02/13 [place] [facility] [place] | | | Report #: [id number] Page: | | | %(RAD)RES..mtdd.print.filter("pg") of %(RAD) | | | RES..mtdd.print.filter("tpg") | | | | | | Accession Number: [id number] | | | CERVICAL FACET INJECTIONS, 06/02/2013 [...] Transcribed | | | Date/Time: 06/03/2013 03:50 Public Speaking Teacher: | | | <<Signature on File>> | | | Tk Monreal | | | MD Marissa06/04/13 0730 <Electronically signed by Tk Monreal | | | Marissa ALVARADO> Tk Ann MD 06/02/13 1813 | | | Public Speaking Teacher: Zulema Xnnmgmgoynavm90/01/14 0350 | | | | | + + + + + + + + | Performing | Address | City/State/Zipcode | Phone Number | | Organization | | | | + + + + + | [facility] | [address] | [place] | [phone] | | [facility] | | [address] | | | - IMAGING | | | | + + + + + documented in this encounter Visit Diagnoses Not on filedocumented in this encounter
--- OUTSIDE RECORDS SUMMARY | ~2019-05-12 | XMS | Encounter Summary ---
Demographics + + + | Address | [address] | | | [place] [address] | + + + | Home Phone [...] [place], | | | | | [place] [address] | | + + + + + | Kellen Briones | ECON | [place], [place] | | | | | [address] | | + + + + + Care Team Providers + +------+ + | Care Steel Pourer Name | Role | Phone | + [...] + + | 11/04/ | Office | [facility] | Patrick Gaffney MD [address] | Transient loss of | | 2012 | Visit | [facility] | [address] | consciousness | | | | [address] [facility], | [address] [place], | (Primary Dx) | | | | [address] [place] | [place] [address] | | | | | [place] [address] | [phone] | | | | | [phone] | | | +--------+---------+ + + + [...] Nancy Rust RN - 09/2012 1:28 PM [id number]: BP recheck 110/70. documented in this e [...] | | | | | | [place] [address] | | | | | | [phone] | | | | | | | | +--------+---------+ + + + | 07/30/ | Office | Cardiology | Agata Tinajero DO | | | 2019 | Visit | | [address] | | | | | | [place] | | | | | | [address] | | | | | | | | +--------+---------+ + + + documented as of this encounter Visit Diagnoses + + | Diagnosis | + + | Transient loss of consciousness - Primary Syncope and collapse | + + documented in this encounter"
--- OUTSIDE RECORDS SUMMARY | ~2019-05-12 | XMS | Encounter Summary ---
Demographics + + + | Address | [address] | | | [place] [address] | + + + | Home Phone [...] [place], | | | | | [place] [address] | | + + + + + | Kellen Briones | ECON | [place], [place] | | | | | [address] | | + + + + + Care Team Providers + +------+ + | Care Canvas Cutter Machine Name | Role | Phone | + [...] | | | | | | | AL | | | | | | [...] | 03/30/ | Surgery | [facility] | Irving Becerril, | C3-4, C4-5, C5-6, | | 2016 | | MED CTR OR INTRA OP | DO [address] | C6-7 Anterior | | | | [address] | [address] [place], [place] | Cervical Discectomy | | | | [place] | [address] | w/ Fusion and | | | | [address] | | Plating | | | | [phone] | | | +--------+---------+ + + + [...] rom the original. DISCHARGE SUMMARY Pt. Name/Age/: Clemetnine Winchester 75 y.o. 1940 Date of Admission: [...] Hypertension Stroke Syncope and collapse Cancer Hyperlipidemia OR (myocardial infarction) GERD (gastroesophageal reflux disease) Asthma Spondylolisthesis of lumbar region Lumbar radiculopathy DDD (degenerative disc disease), lumbar Spinal stenosis of lumbar region with usishrdbusfqj-J5-D0 level moderately severe Facet arthritis of lumbar region-Most severe at L4-L5,L5-S1 Snoring Chronic narcotic use Neck pain on right side Facet arthritis of cervical region DDD (degenerative disc disease), cervical H/O Syncope & collape H/O CVA/stroke H/O OR (myocardial infarction) H/O Breast cancer - Right [...] admission the patient was admitted to [facility] and underwent a C3-C7 fusion. Patient [...] signed by: Chavo Jacob, 03/31/2016 7:59 [facility] documented in this encounter Discharge Instructions Instructions Merle Ricci, TRIMMER AND BORER MACHINE OPERATOR - 03/31/2016Discharge Instructions for Cervical Fusion You [...] t raise your hands over your head fmb3pmof(s)after your surgery. Don t drive until your [...] this your 1 month post op appointment. [id number] [employer]. [address] [place] [address]. All righ ts reserved. This information is not intended as a substitute for professional medical care. Always follow your healthcare professional's instructions. If you would like Home Health: Call [facility] at [phone] documented in this encounter Medications at Time [...] might be different f rom the original. [facility] NEUROSURGERY PROGRESS NOTE Pt. Name/Age/: Clementine Winchester [...] Jacob, 03/31/2016 7:48 [facility] documented in this encounter Plan of Treatment [...] | | | | | | [place] [address] | | | | | | [phone] | | | | | | | | +--------+---------+ + + + | 07/30/ | Office | Cardiology | Agata Tinajero DO | | | 2019 | Visit | | [address] | | | | | | [place] | | | | | | [address] | | | | | | | [...] [address] | [place] | [phone] | | [facility] | | [address] | | | - LABORATORY | | [...] [address] | [place] | [phone] | | [facility] | | [address] | | | - LABORATORY | | [...] [place] | | | [facility] | | [address] | | | - BLOOD BANK | [...]
--- OUTSIDE RECORDS SUMMARY | ~2019-05-12 | XMS | Encounter Summary ---
Demographics + + + | Address | [address] | | | [place] [address] | + + + | Home Phone [...] [place], | | | | | [place] [address] | | + + + + + | Kellen Briones | ECON | [place], [place] | | | | | [address] | | + + + + + Care Team Providers + +------+ + | Care Cloth Laminating Supervisor Name | Role | Phone | [...] | Lumbar | [place], | [address] | | | | | radiculopath | Tk Monreal MD | [place], | | | | | y | [address] | [place] | | | | | Procedures | [place] | [address] | | | | | [place] INJECT | [place], [place] | Phone: | | | | | ANES/STEROID | [address] | [phone] | | | | | FORAMEN | Phone: | Fax: | | | | | LUMBAR/SACRA | [phone] | [phone] | | | | | L W IMG | Fax: | | | | | | GUIDE ,1 | [phone] | | | | | | [place] | | | | | | | [...] + + | 09/29/ | Hospital | [facility] | Mono Diaz, | Lumbar radiculopathy | | 2019 | Encounter | MED CTR XRAY [address] | PA-C [address] | | | | | [place] | [address] [place] | | | | | [place] [address] | [place] [address] | | | | | [phone] | [phone] | | | | | | | | | | | | Wheel And Caster Repairer, [facility] | | +--------+ + + + [...] | 2020 | Visit | | [address] [facility] | | | | | | [place] | | | | | | [place] [address] | | | | | | [phone] | | | | | | | | +--------+---------+ + + + | 07/30/ | Office | Cardiology | Agata TinajeroDO | | | 2019 | Visit | | [address] | | | | | | [place] | | | | | | [address] | | | | | | | [...] + + | Performing | Address | City[facility] | Phone Number | | Organization | [...]
--- OUTSIDE RECORDS SUMMARY | ~2019-05-12 | XMS | Encounter Summary ---
Demographics + + + | Address | [address] | | | [place] [address] | + + + | Home Phone [...] [place], | | | | | [place] [address] | | + + + + + | Kellen Briones | ECON | [place], [place] | | | | | [address] | | + + + + + Care Team Providers + +------+ + | Care Court Officer Name | Role | Phone | [...] + + | 08/01/ | Telephone | [facility] | Ramon Real | Other | | 2012 | | [place] [address] | MD Idris [address] | | | | | [address] | [place], [place] | | | | | [place], [place] | [address] | | | | | [address] | [phone] | | | | | [phone] | | | +--------+ + + + [...] | | | | | | [place] [address] | | | | | | [phone] | | | | | | | | +--------+---------+ + + + | 07/30/ | Office | Cardiology | Agata Tinajero DO | | | 2019 | Visit | | [address] | | | | | | [place] | | | | | | [address] | | | | | | | | +--------+---------+ + + + documented as of this encounter Visit Diagnoses Not on filedocumented in this encounter"
--- OUTSIDE RECORDS SUMMARY | ~2019-05-12 | XMS | Encounter Summary ---
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 | | | | | | without complication | | | | | | ([facility]); Essential | | | | | | hypertension; | | | | | | Syncope and | | | | | | collapse; Cancer | | | | | | ([facility]); 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| | hyperlipidemia; ST | | | | | | elevation myocardial | | | | | | infarction (STEMI), | | | | | | unspecified artery | | | | | | ([facility]); | | | | | | Gastroesophageal [...] with | | | | | | dffrubqzuioqp-M2-M8 | | | | | | level [...] region | | | | | | ([facility]); DDD | | | | | | [...] | | | | | | [place] [address] | | | | | | [phone] | | | | | | | | +--------+---------+ + + + | 07/30/ | Office | Cardiology | Agata Tinajero DO | | | 2019 | Visit | | [address] | | | | | | [place] | | | | | | [address] | | | | | | | [...] involving | | | | | | onondaga coronary | | | | | | artery of on[place] | | | | | | heart [...] with | | | | | | bzmcfoiwxqaza-G1-K3 | | | | | | level [...] involving | | | | | | on[place] coronary | | | | | | artery of on[place] | | | | | | heart [...] with | | | | | | odtpiuxljmnck-I9-V0 | | | | | | level [...] involving | | | | | | [place] coronary | | | | | | artery of on[place] | | | | | | heart [...] with | | | | | | cpuwbclzejekm-D6-I5 | | | | | | level [...] involving | | | | | | onond[place] coronary | | | | | | artery of on[place] | | | | | | heart [...] with | | | | | | dcdmqdvkiyiuy-X2-H1 | | | | | | level [...] involving | | | | | | onondaga coronary | | | | | | artery of onondaga | | | | | | heart without angina | | | | | | pectoris 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 | | | | | | without complication | | | | | | ([facility]) Essential | | | | | | hypertension | | | | | | Syncope and collapse | | | | | | Cancer ([facility]) | | | | | | Other [...] with | | | | | | xgiqewljzvfpe-L7-U5 | | | | | | level [...] | 0.96 | 0.60 - 1.30 | [facility] | | | | | mg/dL | [facility] | | | | | | MEDICAL | | | | | | CENTER - | | | | | | LABORATORY | | + + + + + + | eGFR if not | 57 (L)Comment: | >=60 | [place]ISTER | | | | GLOMERULAR FILTRATION | mL/min/1.73m2 | [facility] | | | [place] | RATE,ESTIMATED | | MEDICAL | | | | mL/min/1.23a4Oiqe than | | CENTER - | | [...] | 8.4 | 8.3 - 10.5 | [facility] | | | | | mg/dL | [facility] | | | | | | MEDICAL [...] [address] | [place] | [phone] | | [facility] | | [address] | | | - LABORATORY | | [...] [facility] | | | | | | [facility] | | | | | | [...] + | [facility] | [address] | [place] | [phone] | | [facility] | | [address] | | | - LABORATORY | | [...] + | [facility] | [address] | [place] | [phone] | | [facility] | | [address] | | | - LABORATORY | | [...] + | [facility] | [address] | [place] | [phone] | | [facility] | | [address] | | | - LABORATORY | | [...] + + | [facility] 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
--- OUTSIDE RECORDS SUMMARY | ~2019-05-12 | XMS | Encounter Summary ---
Demographics + + + | Address | [address] | | | [place] [address] | + + + | Home Phone [...] [place], | | | | | [place] [address] | | + + + + + | Kellen Briones | ECON | [place], [place] | | | | | [address] | | + + + + + Care Team Providers + +------+ + | Care Office Mover Name | Role | Phone | + [...] | | | claudication | B | [address] | | | | | Procedures | [place], [place] | Phone: | | | | | CT Lumbar | [address] | [phone] | | | | | Spine wo | Phone: | Fax: | | | | | Contrast | [phone] | [phone] | | | | | | Fax: | | | | | | | [phone] | | +--------+--------+ + + + + Encounter Details +--------+ + + + + | Date | Type | Department | Care Team | Description | +--------+ + + + + | 04/09/ | Hospital | [facility] | Monster White MD | | | 2019 | Encounter | MED CTR [address] | [address] | | | | | [place], | [place], | | | | | [place] [address] | [place] [address] | | | | | [phone] | [phone] | | | | | | | [...] | | | | | [place] [address] | | | | | | [phone] | | | | | | | | +--------+---------+ + + + | 07/30/ | Office | Cardiology | Agata Tinajero DO | | | 2019 | Visit | | [address] | | | | | | [place] | | | | | | [address] | | | | | | | [...]
--- OUTSIDE RECORDS SUMMARY | ~2019-05-12 | XMS | Encounter Summary ---
Demographics + + + | Address | [address] | | | [place] [address] | + + + | Home Phone [...] [place], | | | | | [place] [address] | | + + + + + | Kellen Briones | ECON | [place], [place] | | | | | [address] | | + + + + + Care Team Providers + +------+ + | Care It Telecom Technician Name | Role | Phone | [...] [address] | [address] [place], [place] | | | | | [place], [place] | [id number] | | | | | [address] | | | | | | [phone] | | | +--------+ + + + [...] | | | | | | [place] [address] | | | | | | [phone] | | | | | | | | +--------+---------+ + + + | 07/30/ | Office | Cardiology | Agata Tinajero DO | | | 2019 | Visit | | [address] | | | | | | [place] | | | | | | [address] | | | | | | | [...] [address] | [place] | [phone] | | [facility] | | [address] | | | - IMAGING | | | | + + + + + documented in this encounter Visit Diagnoses + + | Diagnosis | + + | Neck pain - Primary Cervicalgia | + + documented in this encounter"
--- OUTSIDE RECORDS SUMMARY | ~2019-05-12 | XMS | Clinical Summary ---
Demographics + + + | Address | [address] | | | [place] [address] | + + + | Home Phone | | + + + | Preferred Language | Unknown | + + + | Marital Status | | + + + | Amish Affiliation | Unknown | + + + | Race | Unknown | + + + | Ethnic Group | Unknown | + + + Author + + + | Author | [email or web address] (Historical as of | | | 01-17-19) | + + + | Organization | [facility] (Historical as of | | | 01-17-19) | + + + | Address | Unknown | + + + | Phone | Unavailable | + + + Support + + + + + | Name | Relationship | Address | Phone | + + + + + | Lucy Winchester | ECON | [place], | | | | | [place] [address] | | + + + + + | Kellen Briones | ECON | Unknown | | + + + + + Care Team Providers + +------+ + | Care Executive Producer Name | Role | Phone | + [...] | + + + | History of ID (myocardial infarction) | 03/30/2016 | + + [...] +------+-------+ + | MEDICARE | MEDICA | [id number] | | | [address] | | | RE | | | | [place] [address] | | | IP-OP | | | | | + +--------+ +------+-------+ + | UNITED HE[employer]CARE | UNITED | [id number] | | | | | | | | | | | | | HEALTH | | | | | | | CARE - | | | | | | | AARP | | | | | + +--------+ +------+-------+ + | STEPHANIE - ERICKA - | CHAMPV | [id number] | | | [place] [address] | | [place]Z | A | | | | [place] | | | | | | | [address] | + +--------+ +------+-------+ + + +--------+ [...] | | al/Fam | | 194 | [phone] | [place] | | | amanuel | | | [address]: | [address] | | | | | | | | | | | | | [phone] | | | | | | | 8636 | | + +--------+ +--------+ + +"
--- OUTSIDE RECORDS SUMMARY | ~2019-05-12 | XMS | Encounter Summary ---
Demographics + + + | Address | [address] | | | [place] [address] | + + + | Home Phone [...] [place], | | | | | [place] [address] | | + + + + + | Kellen Briones | ECON | [place], [place] | | | | | [address] | | + + + + + Care Team Providers + +------+ + | Care Foreign Language Professor Name | Role | Phone | [...] | | | [address] | [address] | | | | | | D | [place], | | | | | | [place], | [place] [address] | | | | | | [place] [address] | Phone: | | | | | | Phone: | [phone] | | | | | | [phone] | Fax: | | | | | | Fax: | [phone] | | | | | | [phone] | | +--------+ + + + + + Encounter Details +--------+---------+ + + + | Date | Type | Department | Care Team | Description | +--------+---------+ + + + | 09/16/ | Office | [facility] | Bobby Grier | Snoring (Primary | | 2012 | Visit | SLEEP DISORDER [address] | MD [address] | Dx); Chronic | | | | [address] [place] | [address] [place] | narcotic use | | | | [place] [address] | [place] [address] | | | | | [phone] | [phone] | | | | | | | [...] differen t from the original. Gely Easley [facility] [place] [address] Ref: Patrick Gaffney MD CC: Chief Complaint [...] and back pain she was started on Dellroy, baclofen, flexeril, and zanaflex in February of 2012 according to the patient and her daughter (the EMR supports this too). Currently she is on the zanaflex and Dellroy. She had been started on Celexa in November of 2011 for depression. Wellbutrin was started in July of 2010 after heart surgery. She currently takes 2 Dellroy tabs tid. She started having spells of [...] of 20-30 minutes. She often takes a Dellroy at about 8pm and rarely after 10pm. [...] Hypertension; Stroke; Syncope and collapse; Cancer; Hyperlipidemia; KS (myocardial inf arction); GERD (gastroesophageal reflux disease); Asthma; Arthritis; Lumbar radiculopathy (); DDD (degenerative disc disease), lumbar (07/23/2012); Spinal stenosis of lumbar re gion with vxxhqdnqeykdm-V5-P6 level moderately severe (07/23/2012); Facet arthritis of lumbar region-Most severe at L4-L5,L5-S1 (07/23/2012); and Snoring. 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 I've discussed this in detail with [...] [facility] CC: Emerita Draper Taye, Bobby Booker Jr., MD - 09/16/2012 10:17 AM PDTFormatting of this note might be different from the origin al. 09/16/12 [address] Depression Inventory-II Depression Score 5 - Minimal depression Insomnia Severity Index Insomnia Severity Index 7 [place] Sleepiness Scale Sitting and reading 0 Watching [...] | | | | | | [place] [address] | | | | | | [phone] | | | | | | | | +--------+---------+ + + + | 07/30/ | Office | Cardiology | Agata Tinajero DO | | | 2019 | Visit | | [address] | | | | | | [place], [place] | | | | | | [address] | | | | | | | [...]
--- OUTSIDE RECORDS SUMMARY | ~2019-05-12 | XMS | Encounter Summary ---
Demographics + + + | Address | [address] | | | [place] [address] | + + + | Home Phone [...] [place], | | | | | [place] [address] | | + + + + + | Kellen Briones | ECON | [place], [place] | | | | | [address] | | + + + + + Care Team Providers + +------+ + | Care Manager Corporate Marketing Name | Role | Phone | [...] + + | 01/26/ | Office | [facility] | [place], | Spinal stenosis of | | 2014 | Visit | PHYSIATRY [address] | [place] [address] | lumbar region with | | | | [place], | [place], | mtppcftjuqdaw-C0-B3 | | | | [place] [address] | [place] [address] | level moderately | | | | [phone] | [phone] | severe (Primary Dx); | | | [...] of the procedure you must provide a carry all driver to take you home. For all [...] spinal stenosis. Her last injection was in [facility] of this year. She reports that the treatment was effective for approximately 1 months. 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 The patient reports overall [...] and narcotic medications use; she currently uses Stuart, Flexeril and [place] bapentin. Patient's medications, allergies, [...] has no apparent deficits with short or buttermaker continuous churn memory. She has appropriate fund of knowledge [...] 1. Spinal stenosis of lumbar region with wrkpjianxhpmu-N6-R4 level moderately severe 2. Spondylolisthesis of lumbar [...] of the lumbar spine at [facility]. I previously requ ested that these be [...] | 2019 | Visit | | [address] | | | | | | [place], | | | | | | [place] [address] | | | | | | [phone] | | | | | | | | +--------+---------+ + + + | 07/30/ | Office | Cardiology | Agata Tinajero DO | | 2019 | Visit | | [address] | | | | | | [place], [place] | | | | | | [address] | | | | | | | [...] Clementine Phoenix Annabella presents to the | [facility] | | fluoroscopy suite for fluoroscopically-guided right C3-C4, C4-C5 and | [facility] | | C5-C6 facet injections as [...] [address] | [place] | [phone] | | [facility] | | [address] | | | - IMAGING | | [...] radiculopathy ICD-9 Code 724.4 Clementine Phoenix | [facility] | | Annabella presents to the fluoroscopy suite for fluoroscopically-guided [facility] | | bilateral L5-S1 transforaminal epidural [...] ST. | [address] | [place], [place] | [phone] | | [facility] | | [address] | | | - IMAGING | | | | + + + + + documented in this encounter Visit Diagnoses + + | Diagnosis | + + | Spinal stenosis of lumbar region with dtectungqmbwr-V1-A6 level moderately severe - | | Primary [...]
--- OUTSIDE RECORDS SUMMARY | ~2019-05-12 | XMS | Encounter Summary ---
Demographics + + + | Address | [address] | | | [place] [address] | + + + | Home Phone [...] [place], | | | | | [place] [address] | | + + + + + | Kellen Briones | ECON | [place], [place] | | | | | [address] | | + + + + + Care Team Providers + +------+ + | Care Dicer Operator Name | Role | Phone | [...] (Primary Dx); DDD | | | | Dulce Powell, | [place], [place] | (degenerative disc | | | | [place] [address] | [phone] | disease), lumbar; | | | | [phone] | | 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; | | | | | | Spinal stenosis of | | | | | | lumbar region with | | | | | | [id number] | | | | | | level moderately | | | | | | severe; Facet | | | | | | arthritis of lumbar | | | | | | region-Most severe | | | | | | at L4-L5,L5-S1; [place] | | | | | | (myocardial | | | | | | infarction) ([facility]); | | | | | | Cancer ([facility]); | | | | | | Diabetes mellitus | | | | | | ([facility]); Coronary | | | | [...] our off ice. Please also provide a industrial tractor driver to take you home on the [...] has actually been seeing Dr. Jordan in [facility] the neck issues and will be [...] 4. Spinal stenosis of lumbar region with [id number] level moderately severe 5. Facet arthritis of [...] t he lumbar spine at [facility]. I will request these be placed on I-site. She h as previously seen Dr. Real and has been in contact with Dr. Becerril's office in the [facility]. I would be happy to provide a formal referral if needed. documented in this encounter Plan of Treatment +--------+---------+ + + + | Date | Type | Specialty | Care Team | Description | +--------+---------+ + + + | 05/14/ | Office | Orthopedic Surgery | Monster White MD | | | 2019 | Visit | | [email or web address] | | | | | | [place], | | | | | | [place] [address] | | | | | | [phone] | | | | | | | | +--------+---------+ + + + | 07/30/ | Office | Cardiology | Agata Tinajero DO | | | 2019 | Visit | | [address] | | | | | | [place] | | | | | | [address] | | | | | | | [...] | Spinal stenosis of lumbar region with [id number]-A7-J5 level moderately severe | | Spinal stenosis, lumbar region, without neurogenic claudication | + + | Facet arthritis of lumbar region-Most severe at L4-L5,L5-S1 Lumbosacral spondylosis | | without myelopathy | + + | [place] (myocardial infarction) (HCC) Acute myocardial infarction, unspecified [...] of unspecified type of vessel, | | [place] or graft | + + | Trochanteric bursitis of right hip Enthesopathy of hip region | + + | Cervical stenosis of spinal canal Spinal stenosis in cervical region | + + | Spondylolisthesis of cervical region Acquired spondylolisthesis | + + documented in this encounter
--- OUTSIDE RECORDS SUMMARY | ~2019-05-12 | XMS | Encounter Summary ---
Demographics + + + | Address | [address] | | | [place] [address] | + + + | Home Phone [...] [place], | | | | | [place] [address] | | + + + + + | Kellen Briones | ECON | [place] | | | | | [address] | | + + + + + Care Team Providers + +------+ + | Care Clinical Psychologist Licensed Name | Role | Phone | + +------+ + | Barb Marte | THANG | | + +------+ + Encounter Details +--------+ + + + + | Date | Type | Department | Care Team | Description | +--------+ + + + + | 01/31/ | Hospital | [facility] | Judson Palacios DO | | | 2018 - | Encounter | [facility] | [address] | | | | | CARE FLO[address] | | | [address]/ | | [address] | [place] [address] | | | 2017 | | [place], [place] | [phone] | | | | | [address] | | | | | | [phone] | | | +--------+ + + + [...] Service: Hospitalist Author Type: Physician Filed: 02/06/18 3558 Date of Service: 02/05/181509 Status: Signed Parallel Computing Software Engineer: Faisal Briceno MD (Physician) [facility] Service: Hospitalist Discharge Summary Date of [...] confu aura. She was initially admitted to [facility] from 01/16/2018 till 01/28/2018 d ue to suspicion of acute left MCA stroke. Work up there with MRI was negative while Carotid FDopplers showed less than 50 % stenosis. She was subsequently discharged home but she was r eadmitted due to increasing confusion and mild renal failure with creatinine 1.26. She was e ventually transferred to [facility] for further management. She did not have [...] No discharge procedures on file. Follow up: [facility] Schedule an appointment as soon [...] Author: JASON Montaño Service: (none) Author Type: Fisher Gill Net Filed: 02/05/181418 Date of Service: 02/05/181417 Status: Signed Parallel Computing Software Engineer: JASON Montaño (Fisher Gill Net) Pt's daughter is Lucy and can be reached at: [phone]; [phone] JASON Montaño onver aura Transaction, Provider Unknown - 02/05/2018 2:17 PM PDT Case Management by JASON Montaño at 02/05/181416 Author: JASON Montaño Service: (none) Author Type: Fisher Gill Net Filed: 02/05/181416 Date of Service: 02/05/181416 Status: Signed Parallel Computing Software Engineer: JASON Montaño (Fisher Gill Net) Disposition: Home to [place] Transportation: Daughter Patient and family in agreement with discharge plan Medicare important message (Given or N/A): Given- signed and placed in chart JASON Montaño onver aura Transaction, Provider Unknown - 02/05/2018 6:59 AM PDT Nurse Progress Note by Nila Gonzalez RN at 02/05/18658 Author: Nila Gonzalez RN Service: (none) Author Type: Registered Nurse Filed: 02/05/18701 Date of Service: 02/05/18658 Status: Signed Parallel Computing Software Engineer: Nila Gonzalez RN (Registered Nurse) End of shift review completed by this RN. Nila Gonzalez RN onver aura Transaction, Provider Unknown - 02/05/2018 6:44 AM PDT Nurse Progress Note by Vonnie Nolasco RN at 02/05/18643 Author: Vonnie Nolasco RN Service: (none) Author Type: Registered Nurse Filed: 02/05/18647 Date of Service: 02/05/18643 Status: Signed Parallel Computing Software Engineer: Vonnie Nolasco RN (Registered Nurse) Patient A/OX4, [...] 02/05/18226 Date of Service: 02/05/18224 Status: Signed Parallel Computing Software Engineer: Vonnie Nolasco RN (Registered Nurse) IV occluded, [...] 02/04/181849 Date of Service: 02/04/181838 Status: Signed Parallel Computing Software Engineer: Claribel Kerr RN (Registered Nurse) Patient afebrile, [...] 02/04/181954 Date of Service: 02/04/181629 Status: Signed Parallel Computing Software Engineer: Margo Phillips PT (Physical Therapist) PHYSICAL THERAPY TREATMENT NOTE PT Received On: 02/04/18 Reason for Treatment: Deconditioning Requires PT Follow Up: Yes Follow up PT Only?: No Focus for Next Treatment: Stair Training, Family Training/Education (see comment), Patient Education (see comment) Assistance Required: 1 person Wood Scaler Needed: No Recommendations: Home Assist, Prior Setting, Acute ST, Acute OT, OP PT (resume previous OPP T) Equipment Recommended: (none, has SPC and 4ww at baseline) Barriers to Discharge: Cognitive Deficits Impacting Functional Piercy, Physical Defic its Impacting Functional Piercy, Self-care Deficits Impacting Functional Piercy Recommendation Comments: Limitation for ongoing mobility assessment and stair negotiation t joslyn's date 07/05 nausea. Pt requires further mobility assessment to maximize safe d/c plan. A nticipate home with daughter with 24/12 assist and resume OPPT for balance deficits. Plan Treatment/Interventions: Continue per Primary PT POC Progress: Progressing toward goals PT Frequency: 5-7x/wk, Once per day Summary Comments: Pt received finishing shower with MARBLE CUTTER, agreeable to PT intervention with emphasis for [...] Date of Service: 02/04/18 1615 Status: Signed Parallel Computing Software Engineer: Tala Muro RD (Registered Dietitian) 02/04/18 1537 [...] Physical Findings Digestive System (Mouth to Rectum) BUILDING ENGINEER following. Pt reports she doesn't like the [...] Estimated Energy Needs Total Energy Estimated Needs 0265-2115 kcal/day Method for Estimating Needs 25-30 kcal/kg based on adj BW of 55.6 kg Estimated Protein Needs Total Protein Estimated Needs 67-83 g/day Method for Estimating Needs 1.2-1.5 g/kg based on adj BW of 55.6 kg Recommendations Recommended energy needs Continue diet per BUILDING ENGINEER. Send Boost Pudding TID with meals. Encourag [...] (none) Author Type: Speech Therapist Filed: 02/04/18 6089 Date of Service: 02/04/18 1416 Status: Attested Parallel Computing Software Engineer: EARNEST Francois-S (Speech Therapist) Cosigner: Desi Leary MS [facility]-BUILDING ENGINEER at 02/04/18 1516 Attestation signed by Desi Leary MS CCC-BUILDING ENGINEER at 02/04/18 1516 Student therapist educationally participated [...] miguel student's role in care. BEDSIDE SWALLOW BUILDING ENGINEER Last Visit BUILDING ENGINEER Received On: 02/04/18 Requires BUILDING ENGINEER Follow Up: Yes Recommendations Liquids Consistency Recommendations: Keller thick (Ok for thins between meals) Diet [...] are progressing unless otherwise indicated. Dysphagia Goals Lump Receiver Goals: Advanced diet Pt will advanced diet [...] evidence of learning [] Refused Tonya Grullon, BUILDING ENGINEER-S 02/04/2018 3:10 PM Faisal Muse MD - 02/04/2018 11:34 AM PDTFormatting of this note might be different from yadi thibodeaux original. Progress Notes by Faisal Briceno MD at 02/04/18 9874 Author: Faisal Briceno MD Service: Hospitalist Author Type: Physician Filed: 02/04/18 1546 Date of Service: 02/04/18 2614 Status: Signed Parallel Computing Software Engineer: Faisal Briceno MD (Physician) [facility] Service: Hospitalist Progress Note Clementine Winchester 77 y.o. [phone] [id number]/[id number] female PER PT NONE (Inactive) Hospital Day: LOS: 4 days SUBJECTIVE Patient Summary: Patient is a 77 year old female with past medical history of Stroke, CAD, S/P CABG, DM Type II, Chronic Back Pain on Opioids who was admitted due to mental status changes and confusio n. She was initially admitted to [facility] from 01/16/2018 till 01/28/2018 due to suspicion of acute left MCA stroke. Work up there with MRI was negative while Carotid FDo pplers showed less than 50 % stenosis. She was subsequently discharged home but she was read mitted due to increasing confusion and mild renal failure with creatinine 1.26. She was even tually transferred to [facility] for further management. She did not have [...] 02/04/18731 Date of Service: 02/04/18731 Status: Signed Parallel Computing Software Engineer: Thais Castellon RN (Registered Nurse) Pt had [...] 02/03/181705 Date of Service: 02/03/181701 Status: Signed Parallel Computing Software Engineer: Thais Antunez RN (Registered Nurse) Pt alert [...] Date of Service: 02/03/18 1051 Status: Addendum Parallel Computing Software Engineer: Sumit Alvarenga MD (Physician) Related Notes: Original Note by Sumit Alvarenga MD (Physician) filed at 02/03/18 1122 [facility] Service: Hospitalist Progress Note Hospital Day: LOS: 3 days Post-Op Day: * No surgery found * SUBJECTIVE Patient Summary: admission H and P Dr. Palacios:"transferred from [facility] in [place] to [facility] today for ongoing confusion of unclear etiology. Originally hospi talized at [facility] 01/26-01/28 due to confusion, aphasia, suspected CVA. Workup included neg MRI, US carotids showing 50% stenosis, unremarkable echo and telemetry. She was evaluate d by PHYSICAL THERAPY/OT/BUILDING ENGINEER and DC'd home. She reportedly was alert, [...] neurologist Dr Gaffney and also hospitalist Dr iVctor. They reques rachel LP but this could not be done at [facility]. She was accepted by Dr Victor but [...] dependent chronic back pain, originally hospitalized at [facility] A ugust to the due to suspected left MCA stroke, apparent workup included a negative M RI, ultrasound carotid showed less than 50 percent stenosis, she was subsequently discharged home. She then returned back to [facility] on the evening of January 30 with increased co nfusion, according to notes hyperreflexia, increased renal failure with creatinine 1.26, sh e was hydrated improved renal function, due to ongoing symptoms [facility] requested zamorano sfer to our facility for [...] with patient's daughter over the phone (Leighton [phone]), she is hopeful that she can return [...] able to tell me she is at [facility], able to tell me she lives in [place] on, was unsure of the month and date , Cooperative, calm HENT: Mouth/Throat: No oropharyngeal exudate. 3 mm pupils bilateral, reactive Eyes: Oral mucosa moist Neck: Neck seems supple Cardiovascular: Normal rate. Pulmonary/Chest: Effort normal. Abdomina/Gl: Soft. Bowel sounds are normal. Neurological: She is alert. No cranial nerve deficit. Expense Clerk strength equal No pronation drift Motor seems [...] 02/03/18605 Date of Service: 02/02/182212 Status: Signed Parallel Computing Software Engineer: Jessy Jeter RN (Registered Nurse) Alert and [...] 02/02/182007 Date of Service: 02/02/182006 Status: Signed Parallel Computing Software Engineer: Minal Clarke RN (Registered Nurse) BPs remained [...] Author: Isacc Vail Service: (none) Author Type: Medical Parasitologist Filed: 02/02/18 1618 Date of Service: 02/02/18 1554 Status: Signed Parallel Computing Software Engineer: Isacc Vail (Medical Parasitologist) Per Distress Referral. Pt appears calm in [...] Date of Service: 02/02/18 1033 Status: Signed Parallel Computing Software Engineer: Jonathan Montes RN (Registered Nurse) 02/02/18 1024 Discharge Planning Evaluation Admitting Diagnosis Acute Metabolic encephalopathy Readmission No Living Arrangements Children (Pts daughter lives with her Lucy [phone]) Support Systems Children Type of Residence Private residence House type House-1 story Steps to enter 5 Independent with ADL's Yes Independent with Mobility Yes Home Care Services No Caregiver after Discharge No Mental Status Oriented Prior functional status independent Power of Counter Caser No Anticipated Discharge Plan Post Acute Care [...] y.o., female from home with keely Ayala [phone]. Daughter will transport pt home when medically stable. Pt uses a 4ww at home when needed, Home o2 thru [employer] at 2L, and no other DME or blood thinners. Patient's PCP is:[facility] Patient's insurance:Medicare/ Coverage concerns: no [...] 02/02/1855 Date of Service: 02/02/18825 Status: Signed Parallel Computing Software Engineer: Sumit Alvarenga MD (Physician) [facility] Service: Hospitalist Progress Note Hospital Day: LOS: 2 days Post-Op Day: * No surgery found * SUBJECTIVE Patient Summary: admission H and P Dr. Palacios:"transferred from [facility] in [place] to [facility] today for ongoing confusion of unclear etiology. Originally hospi talized at [facility] 01/26-01/28 due to confusion, aphasia, suspected CVA. Workup included neg MRI, US carotids showing 50% stenosis, unremarkable echo and telemetry. She was evaluate d by PHYSICAL THERAPY/OT/BUILDING ENGINEER and DC'd home. She reportedly was alert, [...] but this could not be done at [facility]. She was accepted by Dr Victor but [...] dependent chronic back pain, originally hospitalized at [facility] A ugust to the due to suspected left MCA stroke, apparent workup included a negative M RI, ultrasound carotid showed less than 50 percent stenosis, she was subsequently discharged home. She then returned back to [facility] on the evening of January 30 with increased co nfusion, according to notes hyperreflexia, increase her renal failure with creatinine 1.26, she was hydrated improved renal function, due to ongoing symptoms [facility] requested josué mcpherson to our facility for [...] the date, able tell she lives i [facility] though unable to give me full address , Cooperative, calm HENT: Mouth/Throat: No oropharyngeal exudate. 3 mm pupils bilateral, reactive Eyes: Oral mucosa moist Neck: Neck seems supple Cardiovascular: Normal rate. Pulmonary/Chest: Effort normal. Abdomina/Gl: Soft. Bowel sounds are normal. Neurological: She is alert. No cranial nerve deficit. Expense Clerk strength equal No pronation drift Motor seems [...] 0636 Date of Service: 02/02/18214 Status: Signed Parallel Computing Software Engineer: Jessy Jeter RN (Registered Nurse) Patient was [...] Note by Jina Nation RN at 02/01/18 3880 Author: Jina Nation RN Service: (none) Author Type: Registered Nurse Filed: 02/01/181900 Date of Service: 02/01/18 1841 Status: Signed Parallel Computing Software Engineer: Jina Nation RN (Registered Nurse) Patient has [...] complete. Jina Nation RN Idalia Darby MS CCC-BUILDING ENGINEER - 02/01/2018 9:40 AM PDTFormatting of this note might be different fr om the original. Therapy Progress Note by Idalia Katz MS CCC-BUILDING ENGINEER at 02/01/18 0940 Author: Idalia Katz MS CCC-BUILDING ENGINEER Service: (none) Author Type: Speech and Language Patho logist Filed: 02/01/18 1001 Date of Service: 02/01/1840 Status: Signed Parallel Computing Software Engineer: Idalia Katz MS CCC-BUILDING ENGINEER (Speech and Language Pathologist) BEDSIDE SWALLOW BUILDING ENGINEER Last Visit BUILDING ENGINEER Received On: 02/01/18 Requires BUILDING ENGINEER Follow Up: Yes Recommendations Liquids Consistency Recommendations: Keller thick, Sips of thin water ok between [...] laryngeal elevation upon palpation, Spontaneous double swallow Keller Presentation: Cup Oral: Within functional limits Pharyngeal Phase: Delayed swallow initiated, Decreased laryngeal elevation upon palpation, No overt signs or symptoms of aspiration, Spontaneous double swallow Puree Presentation: Spoon Oral Phase: Within functional limits, Increased oral holding time Pharyngeal: No overt signs or symptoms of aspiration, Delayed Swallow, Decreased Laryngeal Elevation, Spontaneous double swallow Goals are progressing unless otherwise indicated. Dysphagia Goals Lump Receiver Goals: Advanced diet Pt will advanced diet [...] Notes by Sumit Alvarenga MD at 02/01/18 6125 Author: Sumit Alvarenga MD Service: Hospitalist Author Type: Physician Filed: 02/01/18 0858 Date of Service: 02/01/18830 Status: Addendum Parallel Computing Software Engineer: Sumit Alvarenga MD (Physician) Related Notes: Original Note by Sumit Alvarenga MD (Physician) filed at 02/01/1855 [facility] Service: Hospitalist Progress Note Hospital Day: LOS: 1 day Post-Op Day: * No surgery found * SUBJECTIVE Patient Summary: admission H and P Dr. Palacios:"transferred from [facility] [place] to [facility] today for ongoing confusion of unclear etiology. Originally hospi talized at [facility] 01/26-01/28 due to confusion, aphasia, suspected CVA. Workup included neg MRI, US carotids showing 50% stenosis, unremarkable echo and telemetry. She was evaluate d by PHYSICAL THERAPY/OT/BUILDING ENGINEER and DC'd home. She reportedly was alert, [...] but this could not be done at [facility]. She was accepted by Dr Victor but [...] dependent chronic back pain, originally hospitalized at [facility] A ugust to the due to suspected left MCA stroke, apparent workup included a negative M RI, ultrasound carotid showed less than 50 percent stenosis, she was subsequently discharged home. She then returned back to [facility] on the evening of January 30 with [...] She is alert. No cranial nerve deficit. Expense Clerk strength seems bilateral Rigidity with a passive [...] Note by Jessy Jeter RN at 02/01/18 4417 Author: Jessy Jeter RN Service: (none) Author Type: Registered Nurse Filed: 02/01/18 0652 Date of Service: 02/01/18435 Status: Signed Parallel Computing Software Engineer: Jessy Jeter RN (Registered Nurse) Patient alert [...] Note by Jessy Jeter RN at 01/31/18 8396 Author: Jessy Jeter RN Service: (none) Author Type: Registered Nurse Filed: 01/31/182250 Date of Service: 01/31/182245 Status: Signed Parallel Computing Software Engineer: Jessy Jeter RN (Registered Nurse) All oral [...] 01/31/181958 Date of Service: 01/31/181956 Status: Signed Parallel Computing Software Engineer: Keith Bonds RN (Registered Nurse) Pt brought [...] | 2019 | Visit | | [address] | | | | | | [place] | | | | | | [place] [address] | | | | | | [phone] | | | | | | | | +--------+---------+ + + + | 07/30/ | Office | Cardiology | Agata Tinajero DO | | | 2019 | Visit | | [address] | | | | | | [place] | | | | | | [address] | | | | | | | [...] | | | Fingerstick | performed at [facility];[address] | | LAB | | | | [facility];[place], [place] | | | | | | [address] | | | | + + + [...] | | | | performed at [facility] | | | | | | [facility];[place], [place] | | | | | | [address] | | | | + + + [...] | | | Fingerstick | performed at [facility];[address] | | LAB | | | | [address];[place], [place] | | | | | | [address] | | | | + + + [...] | | | Fingerstick | performed at [facility];[address] | | LAB | | | | [address];[place], [place] | | | | | | [address] | | | | + + + [...] | | | Fingerstick | performed at [facility];[address] | | LAB | | | | [address];[place], [place] | | | | | | [address] | | | | + + + [...] | | | Fingerstick | performed at [facility];[address] | | LAB | | | | [address];[place], [place] | | | | | | [address] | | | | + + + [...] | | | Fingerstick | performed at [facility];[address] | | LAB | | | | [address];[place] | | | | | | [address] | | | | + + + [...] | | | | | [place] [address] | | | | + + + [...] | | | | | performed at [facility], [address] | | | | | | [facility], | | | | | | [place] [address] | | | | + + + [...] | | | Fingerstick | performed at [facility];[address] | | LAB | | | | [address];[place] | | | | | | [address] | | | | + + + [...] | | | Fingerstick | performed at [facility];[address] | | LAB | | | | [address];[place], [place] | | | | | | [address] | | | | + + + [...] | | | Fingerstick | performed at [facility];[address] | | LAB | | | | [address];[place], [place] | | | | | | [address] | | | | + + + [...] | | | Fingerstick | performed at [facility];[address] | | LAB | | | | [address];[place] | | | | | | [address] | | | | + + + [...] | | | | | performed at [facility], [address] | | | | | | [facility], | | | | | | [place] [address] | | | | + + + [...] | | | Fingerstick | performed at [facility];[address] | | LAB | | | | [address];[place] | | | | | | [address] | | | | + + + [...] | | | Fingerstick | performed at [facility];[address] | | LAB | | | | [address];[place], [place] | | | | | | [address] | | | | + + + [...] | | | Fingerstick | performed at [facility];[address] | | LAB | | | | [address];[place], [place] | | | | | | [address] | | | | + + + [...] | | | Fingerstick | performed at [facility];[address] | | LAB | | | | [address];[place] | | | | | | [address] | | | | + + + [...] + + | Hemoglobin | 5.4Comment: The Bahamian | 4.0 - 6.0 % | EXTERNAL [...] | | | | | performed at [facility], [address] | | | | | | [facility], | | | | | | [place] [address] | | | | + + + [...] | | | Fingerstick | performed at [facility];[address] | | LAB | | | | [address];[place], [place] | | | | | | [address] | | | | + + + [...] | | | Fingerstick | performed at [facility];[address] | | LAB | | | | [address];[place], [place] | | | | | | [address] | | | | + + + [...] | | | Fingerstick | performed at [facility];[address] | | LAB | | | | [address];[place], [place] | | | | | | [address] | | | | + + + [...] | | | Basophils | performed at [facility], [address] | K/uL | LAB | | | | [address], | | | | | | [place] [address] | | | | + + + [...] EXTERNAL | | | | performed at [facility], [address] | uIU/mL | LAB | | | | [address], | | | | | | [place] [address] | | | | + + + [...] EXTERNAL | | | | performed at [facility];[address] | mmol/L | LAB | | | | [address];[place], [place] | | | | | | [address] | | | | + + + [...] EXTERNAL | | | | performed at [facility];[address] | | LAB | | | | [facility];[place], [place] | | | | | | [address] | | | | + + + [...] | | | | | performed at [facility], [address] | | | | | | [facility], | | | | | | [place] [address] | | | | + + + [...]
--- OUTSIDE RECORDS SUMMARY | ~2019-05-12 | XMS | Encounter Summary ---
Demographics + + + | Address | [address] | | | [place] [address] | + + + | Home Phone [...] [place], | | | | | [place] [address] | | + + + + + | Kellen Briones | ECON | [place], [place] | | | | | [address] | | + + + + + Care Team Providers + +------+ + | Care Mexican Food Maker Name | Role | Phone | [...] | Lumbar | [place], | [address] | | | | | radiculopath | Tk Monreal MD | [place], | | | | | y | [address] | [place] | | | | | Procedures | [place] | [address] | | | | | ME INJECT | [place], [place] | Phone: | | | | | ANES/STEROID | [address] | [phone] | | | | | FORAMEN | Phone: | Fax: | | | | | LUMBAR/SACRA | [phone] | [phone] | | | | | L W IMG | Fax: | | | | | | GUIDE ,1 | [phone] | | | | | | LEVEL ME | | | | | | | [...] + + | 02/24/ | Hospital | [facility] | [place], | Lumbar radiculopathy | | 2018 | Encounter | MED CTR XRAY [address] | PA-C [address] | | | | | [place] | [address] [place] | | | | | [place] [address] | [place] [address] | | | | | [phone] | [phone] | | | | | | | | | | | | Inpatient CoderJordan | | +--------+ + + + + [...] | | | | | | [place] [address] | | | | | | [phone] | | | | | | | | +--------+---------+ + + + | 07/30/ | Office | Cardiology | Agata Tinajero DO | | | 2019 | Visit | | [address] | | | | | | [place] | | | | | | [address] | | | | | | | [...]
--- OUTSIDE RECORDS SUMMARY | ~2019-05-12 | XMS | Encounter Summary ---
Demographics + + + | Address | [address] | | | [place] [address] | + + + | Home Phone [...] [place], | | | | | [place] [address] | | + + + + + | Kellen Briones | ECON | [place], [place] | | | | | [address] | | + + + + + Care Team Providers + +------+ + | Care Manager Area Name | Role | Phone | + [...] | | | Procedures | [address] | [place] [facility] | | | | | NM Nuclear | [address] | Med 1100 | | | | | Stress Test | [address] | [address] | | | | | (Vasodilator | [place] | [place] | | | | | ) | [address] | [address] | | | | | | Phone: | Phone: | | | | | | [phone] | [phone] | | | | | | Fax: | Fax: | | | | | | [phone] | [phone] | +--------+--------+ + + + + Encounter Details +--------+ + + + + | Date | Type | Department | Care Team | Description | +--------+ + + + + | 02/17/ | Hospital | [facility] | TinajeroFlorindayDO | | | 2019 | Encounter | CARDIOLOGY [place] | [address] | | | | | NUC MED [address] | [place], [place] | | | | | [address] | [address] | | | | | [place], [place] | | | | | | [address] | | | | | | [phone] | | | +--------+ + + + [...] | 2019 | Visit | | [address] | | | | | | [place] | | | | | | [place] [address] | | | | | | [phone] | | | | | | | | +--------+---------+ + + + | 07/30/ | Office | Cardiology | Agata Tinajero DO | | | 2019 | Visit | | [address] | | | | | | [place] | | | | | | [address] | | | | | | | [...]
--- OUTSIDE RECORDS SUMMARY | ~2019-05-12 | XMS | Encounter Summary ---
Demographics + + + | Address | [address] | | | [place] [address] | + + + | Home Phone [...] [place], | | | | | [place] [address] | | + + + + + | Kellen Briones | ECON | [place], [place] | | | | | [address] | | + + + + + Care Team Providers + +------+ + | Care Executive Receptionist Name | Role | Phone | [...] + | 05/20/ | Office | [facility] | Tk Ann | Lumbar radiculopathy | | 2013 | Visit | PHYSIATRY [address] | TMD [address] | (Primary Dx); DDD | | | | [place], | [place] | (degenerative disc | | | | [place] [address] | [id number] | disease), lumbar; | | | | [phone] | | Facet arthritis of | | [...] with | | | | | | twjmnvjsddkqu-A6-K3 | | | | | | level [...] of the procedure you must provide a inventory associate and driver to take you home. For all [...] spinal stenosis. Her last injection was in [facility] of this year. She reports that the [...] and narcotic medications use; she currently uses Palmetto, Flexeril and ga bapentin. Patient's medications, allergies, [...] | 2018 | Visit | | [address] | | | | | | [place], | | | | | | [place] [address] | | | | | | [phone] | | | | | | | | +--------+---------+ + + + | 07/30/ | Office | Cardiology | Agata Tinajero DO | | 2019 | Visit | | [address] | | | | | | [facility] | | | | | | [address] | | | | | | | [...] radiculopathy ICD-9 Code 724.4 Clementine Phoenix | [facility] | | Annabella presents to the fluoroscopy suite for fluoroscopically-guided [facility] | | bilateral L5-S1 transforaminal epidural steroid [...] | + + + + + | [facility] | [address] | [place] | [phone] | | [facility] | | [address] | | | - IMAGING | | [...] | Spinal stenosis of lumbar region with cmqxjsopthbvm-K6-N6 level moderately severe | | Spinal stenosis, lumbar region, without neurogenic claudication | + + documented in this encounter
--- OUTSIDE RECORDS SUMMARY | ~2019-05-12 | XMS | Encounter Summary ---
Demographics + + + | Address | [address] | | | [place] [address] | + + + | Home Phone [...] [place], | | | | | [place] [address] | | + + + + + | Kellen Briones | ECON | [place] | | | | | [address] | | + + + + + Care Team Providers + +------+ + | Care Skate Shop Attendant Name | Role | Phone | + +------+ + | Barb Marte | THANG | | + +------+ + Encounter Details +--------+ + + + + | Date | Type | Department | Care Team | Description | +--------+ + + + + | 01/03/ | Hospital | [facility] | Barb Marte PA | Visit for screening | | 2018 | Encounter | MED CTR MAMMOGRAPHY | [address] | mammogram | | | | [address] | [address] | | | | | [place], [place] | [address] | | | | | [address] | | | | | | [phone] | | | +--------+ + + + [...] | | | | | | [place] [address] | | | | | | [phone] | | | | | | | | +--------+---------+ + + + | 07/30/ | Office | Cardiology | Agata Tinajero DO | | | 2019 | Visit | | [address] | | | | | | [place] | | | | | | [address] | | | | | | | [...]
--- OUTSIDE RECORDS SUMMARY | ~2019-05-12 | XMS | Encounter Summary ---
Demographics + + + | Address | [address] | | | [place] [address] | + + + | Home Phone [...] [place], | | | | | [place] [address] | | + + + + + | Kellen Briones | ECON | [place], [place] | | | | | [address] | | + + + + + Care Team Providers + +------+ + | Care Locator Name | Role | Phone | + [...] + + | 08/27/ | Telephone | [facility] | Tk Ann | Other | | 2012 | | PHYSIATRY [address] | T, [address] | | | | | [place], | [place], [place] | | | | | [place] [address] | [address] | | | | | [phone] | | | +--------+ + + + [...] | | | | | | [place] [address] | | | | | | [phone] | | | | | | | | +--------+---------+ + + + | 07/30/ | Office | Cardiology | Agata Tinajero DO | | | 2019 | Visit | | [address] | | | | | | [place] | | | | | | [address] | | | | | | | | +--------+---------+ + + + documented as of this encounter Visit Diagnoses Not on filedocumented in this encounter"
--- OUTSIDE RECORDS SUMMARY | ~2019-05-12 | XMS | Encounter Summary ---
Demographics + + + | Address | [address] | | | [place] [address] | + + + | Home Phone [...] [place], | | | | | [place] [address] | | + + + + + | Kellen Briones | ECON | [place], [place] | | | | | [address] | | + + + + + Care Team Providers + +------+ + | Care Real Estate Assessor Name | Role | Phone | + [...] | arthritis of | [address] | [place], [place] | | | | | cervical | [place], [place] | [address] Phone: | | | | | region [place] | [address] | [phone] | | | | | (degenerativ | Phone: | Fax: | | | | | e disc | [phone] | [phone] | | | | | disease), | Fax: | | | | | | cervical | [phone] | | | | | | Cervical | | | | | | | stenosis of | | | | | | | spinal canal | | | +--------+ + + + + + Encounter Details +--------+---------+ + + + | Date | Type | Department | Care Team | Description | +--------+---------+ + + + | 02/01/ | Office | [facility] | Irving Becerril, | Spondylolisthesis, | | 2016 | Visit | NEUROSURGERY [address] | DO [address] | cervical region | | | | [address] | [address] [place], [place] | (Primary Dx); 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[place] | [address] | secondary kyphosis, | | | | [address] | | cervical region; | | | | [phone] | | Cervical myelopathy | | | | | | ([facility]); Cervical | | | | | | [...] 1:30 PM PDT Irving Becerril DO [address] [facility], [address] [place] [address] FAX: NEUROSURGERY HISTORY AND PHYSICAL EXAMINATION CHIEF [...] Diagnosis Date Coronary artery disease Diabetes mellitus ([facility]) Hypertension Stroke ([facility]) Syncope and collapse Cancer ([facility]) Breast Hyperlipidemia [place] (myocardial infarction) ([facility]) GERD (gastroesophageal reflux disease) Asthma Arthritis Lumbar radiculopathy 07/23/2012 DDD (degenerative disc disease), lumbar 07/23/2012 Spinal stenosis of lumbar region with bbrxgxjmeihto-U9-N2 level moderately severe 2012 Facet arthritis of [...] 1989' Mastectomy, radical 1987 Right Breast reconstruction [id number] ABout 10 surgeries Bone spur left foot [...] apparent deficits with short or snf memory. CRANIAL NERVES: Fundoscopic Exam: The optic [...] Intrinsics 5 4+ Ulnar Intrinsics 5 4+ Alternative Energy Engineer Strength 4+ 4+ Hip Flexion 5 5 [...] 07/23/2012 Spinal stenosis of lumbar region with pxqlmkmdooyxx-H6-M0 level moderately severe 2012 Facet arthritis of [...] | 2019 | Visit | | [address] | | | | | | [place], | | | | | | [place] [address] | | | | | | [phone] | | | | | | | | +--------+---------+ + + + | 07/30/ | Office | Cardiology | Agata Tinajero DO | | | 2019 | Visit | | [address] | | | | | | [place] | | | | | | [address] | | | | | | | [...]
--- OUTSIDE RECORDS SUMMARY | ~2019-05-12 | XMS | Encounter Summary ---
Demographics + + + | Address | [address] | | | [place] [address] | + + + | Home Phone [...] [place], | | | | | [place] [address] | | + + + + + | Kellen Briones | ECON | [place], [place] | | | | | [address] | | + + + + + Care Team Providers + +------+ + | Care Rehab Aide Name | Role | Phone | [...] + + | 07/28/ | Telephone | [facility] | Patrick Gaffney MD [address] | Records Request | | 2012 | | NEUROLOGY [place] | [facility] | | | | | [address] [facility], | BR[address] [place] | | | | | [place] [address] [place] [address] | [place] [address] | | | | | [place] [address] | [phone] | | | | | [phone] | | | +--------+ + + + [...] | | | | | | [place] [address] | | | | | | [phone] | | | | | | | | +--------+---------+ + + + | 07/30/ | Office | Cardiology | Agata Tinajero DO | | | 2019 | Visit | | [address] | | | | | | [place] | | | | | | [address] | | | | | | | | +--------+---------+ + + + documented as of this encounter Visit Diagnoses Not on filedocumented in this encounter"
--- OUTSIDE RECORDS SUMMARY | ~2019-05-12 | XMS | Encounter Summary ---
Demographics + + + | Address | [address] | | | [place] [address] | + + + | Home Phone [...] [place], | | | | | [place] [address] | | + + + + + | Kellen Briones | ECON | [place], [place] | | | | | [address] | | + + + + + Care Team Providers + +------+ + | Care Sales And Marketing Administrator Name | Role | Phone | [...] | arthritis of | [address] | [place], [place] | | | | | cervical | [place], [place] | [address] Phone: | | | | | region [place] | [address] | [phone] | | | | | (degenerativ | Phone: | Fax: | | | | | e disc | [phone] | [phone] | | | | | disease), | Fax: | | | | | | cervical | [phone] | | | | | | Cervical | | | | | | | stenosis of | | | | | | | spinal canal | | | +--------+ + + + + + Encounter Details +--------+---------+ + + + | Date | Type | Department | Care Team | Description | +--------+---------+ + + + | 02/01/ | Office | [facility] | Irving Becerril, | Spondylolisthesis, | | 2016 | Visit | NEUROSURGERY [address] | DO [address] | cervical region | | | | [address] | [address] [place], [place] | (Primary Dx); 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[place] | [address] | secondary kyphosis, | | | | [address] | | cervical region; | | | | [phone] | | Cervical myelopathy | | | | | | ([facility]); Cervical | | | | | | [...] 1:30 PM PDT Irving Becerril DO [address] [facility], [address] [place] [address] FAX: NEUROSURGERY HISTORY AND PHYSICAL EXAMINATION CHIEF [...] Diagnosis Date Coronary artery disease Diabetes mellitus ([facility]) Hypertension Stroke ([facility]) Syncope and collapse Cancer ([facility]) Breast Hyperlipidemia [place] (myocardial infarction) ([facility]) GERD (gastroesophageal reflux disease) Asthma Arthritis Lumbar radiculopathy 07/23/2012 DDD (degenerative disc disease), lumbar 07/23/2012 Spinal stenosis of lumbar region with yjojofvccgrvh-D8-V9 level moderately severe 2012 Facet arthritis of [...] 1989' Mastectomy, radical 1987 Right Breast reconstruction [id number] ABout 10 surgeries Bone spur left foot [...] apparent deficits with short or mcc memory. CRANIAL NERVES: Fundoscopic Exam: The optic [...] Intrinsics 5 4+ Ulnar Intrinsics 5 4+ Email Developer Strength 4+ 4+ Hip Flexion 5 5 [...] 07/23/2012 Spinal stenosis of lumbar region with cyuphgpxjvbvw-U5-X9 level moderately severe 2012 Facet arthritis of [...] to presenting for surgery. ELECTRONICALLY SIGNED BY: Irivng Becerril DO, 02/02/2016 13:39 documented in this en counter Plan of Treatment +--------+---------+ + + + | Date | Type | Specialty | Care Team | Description | +--------+---------+ + + + | 05/14/ | Office | Orthopedic Surgery | Monster White MD | | | 2019 | Visit | | [address] [facility] | | | | | | [place], | | | | | | [place] [address] | | | | | | [phone] | | | | | | | | +--------+---------+ + + + | 07/30/ | Office | Cardiology | Agata Tinajero DO | | | 2019 | Visit | | [address] | | | | | | [place] | | | | | | [address] | | | | | | | [...]
--- OUTSIDE RECORDS SUMMARY | ~2019-05-12 | XMS | Encounter Summary ---
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 | | | | | | without complication | | | | | | ([facility]); Essential | | | | | | hypertension; | | | | | | Syncope and | | | | | | collapse; Cancer | | | | | | ([facility]); 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| | hyperlipidemia; ST | | | | | | elevation myocardial | | | | | | infarction (STEMI), | | | | | | unspecified artery | | | | | | ([facility]); | | | | [...] with | | | | | | ubonqjtpujirg-W6-X9 | | | | | | level [...] | | | | | | ([facility]); DDD | | | [...] | | | | | | [place] [address] | | | | | | [phone] | | | | | | | | +--------+---------+ + + + | 07/30/ | Office | Cardiology | Agata Tinajero DO | | | 2019 | Visit | | [address] | | | | | | [place] | | | | | | [address] | | | | | | | [...] involving | | | | | | big lagoon coronary | | | | | | artery of big lagoon | | | | | | heart [...] with | | | | | | zdaiggsvlfvvn-J1-G8 | | | | | | level [...] involving | | | | | | big lagoon coronary | | | | | | artery of big lagoon | | | | | | heart [...] with | | | | | | crabzrlanhjva-X9-N3 | | | | | | level [...] involving | | | | | | big lagoon coronary | | | | | | artery of big lagoon | | | | | | heart [...] with | | | | | | pilttwyezzwxr-C7-K3 | | | | | | level [...] involving | | | | | | big lagoon coronary | | | | | | artery of big lagoon | | | | | | heart [...] with | | | | | | akmwoqpjiqjjd-N2-T7 | | | | | | level [...] involving | | | | | | big lagoon coronary | | | | | | artery of big lagoon | | | | | | heart without angina | | | | | | pectoris 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 | | | | | | without complication | | | | | | ([facility]) Essential | | | | | | hypertension | | | | | | Syncope and collapse | | | | | | Cancer ([facility]) | | | | | [...] with | | | | | | bkzfwtthxqjxo-L9-A4 | | | | | | level [...] | 0.96 | 0.60 - 1.30 | [facility] | | | | | mg/dL | [facility] | | | | | | MEDICAL | | | | | | CENTER - | | | | | | LABORATORY | | + + + + + + | eGFR if not | 57 (L)Comment: | >=60 | [place]IN | | | | GLOMERULAR FILTRATION | mL/min/1.73m2 | [facility] | | | [place] | RATE,ESTIMATED | | MEDICAL | | | | mL/min/1.81q1Sqaq than | | CENTER - | | [...] | 8.4 | 8.3 - 10.5 | [facility] | | | | | mg/dL | [facility] | | | | | [...] | + + + + + | [facility] | [address] | [place] | [phone] | | [facility] | | [address] | | | - LABORATORY | | [...] [facility] | | | | | | [facility] | | | | | | [...] + | [facility] | [address] | [place] | [phone] | | [facility] | | [address] | | | - LABORATORY | | [...] + | [facility] | [address] | [place] | [phone] | | [facility] | | [address] | | | - LABORATORY | | [...] + | [facility] | [address] | [place] | [phone] | | [facility] | | [address] | | | - LABORATORY | | [...] [address] | [place] | [phone] | | [facility] | | [address] | | | - LABORATORY | | [...] | | | | CYNTHIA KIRBY MD ([id number]) | | | | | | on [...] + + | Coronary artery disease involving big lagoon coronary artery of big lagoon heart without | | angina pectoris | [...] | Spinal stenosis of lumbar region with whdwmrboyscdh-M4-E2 level moderately severe | | Spinal stenosis, [...]
--- OUTSIDE RECORDS SUMMARY | ~2019-05-12 | XMS | Encounter Summary ---
Demographics + + + | Address | [address] | | | [place] [address] | + + + | Home Phone [...] [place], | | | | | [place] [address] | | + + + + + | Kellen Briones | ECON | [place], [place] | | | | | [address] | | + + + + + Care Team Providers + +------+ + | Care Co Chairman Name | Role | Phone | + +------+ + | Anna De Guzman PA-C | PCP | | + +------+ + Reason for Visit + + + | Reason | Comments | + + + | Hip Pain | Left hip pain | + + + | Back Pain | lower back pain | + + + | Numbness | present in hands and feet bilaterally | + + + Encounter Details +--------+---------+ + + + | Date | Type | Department | Care Team | Description | +--------+---------+ + + + | 06/15/ | Office | [facility] [place] | [place], | Lumbar radiculopathy | | 2016 | Visit | PHYSIATRY [address] | [place] [address] | (Primary Dx); | | | | [place], | [address] [place], | Spinal stenosis of | | | | [place] [address] | [place] [address] | lumbar region with | | | | [phone] | [phone] | edfwbqpzclbbo-J6-X0 | | | | | | level moderately | | | | | | severe; DDD | | | | | | (degenerative disc | | | | | | disease), lumbar; | | | | | | Facet [...] + + + | Blood Pressure | 108/47 | 06/15/2015 1:59 PM | | | | | PST | | + + + + + | Pulse | 68 | 06/15/2015 1:59 PM | | | | | PST [...] Weight | 69.4 kg (153 lb) | 06/15/2015 1:59 PM | | | | | PST | | + + + + + | Height | 160 cm (5' 3") | 06/15/2015 1:59 PM | | | | | PST | | + + + + + | Body Mass Index | 27.1 | 06/15/2015 1:59 PM | | | | | PST | | + + + + + documented in this encounter Patient Instructions Patient Instructions Claudia Das PA-C - 06/15/2015 2:23 PM PST Follow-up at the hospital thirty [...] of the procedure you must provide a tank wagon driver to take you home. For all procedur es it is recommended that someone else drive you home. documented in this encounter Progress Notes Claudia Das PA-C - 06/15/2015 2:27 PM PSTFormatting of this note might be differe nt from the original. CHIEF COMPLAINT: Chief Complaint Patient presents with Hip Pain Left hip pain Back Pain lower back pain Numbness present in hands and feet bilaterally HISTORY OF PRESENT ILLNESS: The patient is a 75 y.o. female being seen today in follow-up for complaints of low back pa in. The patient has been seen for this complaint in the past. Previously it was recommend ed that she receive bilateral L5/S1 TFESI for spinal stenosis. Her last injection was 2014. She reports that the treatment was effective for approximately 3 months. Overall the patient reports that the symptoms are worsening in the last week or so. She ra andrea the pain as 8 on scale of 1-10. She describes the pain as a twisting sensation to her l ow back and an aching pain into both legs, sharp at times. Her symptoms worsen with standin g and prolonged walking. Her symptoms improve with [...] and narcotic medications use; she currently uses Holmes, Flexeril and ga bapentin. Patient's medications, allergies, [...] No abnormal bleeding PHYSICAL EXAMINATION: Filed Vitals: 06/15/15 1359 BP: 108/47 Pulse: 68 PainSc: 8 PainLoc: Hip Body mass index is 27.11 kg/(m^2). GENERAL: [...] ACHILLES 2+ 2+ MUSCULOSKELETAL There is no major palpable deformity of the [...] rthritis, DDD. ASSESSMENT: 1. Lumbar radiculopathy 2. Spinal stenosis of lumbar region with wtdxjiykxsjbk-Q1-N0 level moderately severe 3. DDD (degenerative disc disease), lumbar 4. Facet arthritis of lumbar region-Most severe at L4-L5,L5-S1 5. Spondylolisthesis of lumbar region PLAN: 1. The patient has benefited from prior epidural injections and is hoping to receive addit ional injections. I did feel that was appropriate and I offered to repeat the bilateral L5- S1 transforaminal epidural steroid injections. This will be performed by me in the near [facility] re. 2. I did not make any changes in her medications today. 3. She will follow up 2 weeks after the steroid injection. ELECTRONICALLY SIGNED BY: Claudia Das 06/15/2015 documented in t his encounter Plan of Treatment +--------+---------+ + + + | Date | Type | Specialty | Care Team | Description | +--------+---------+ + + + | 05/14/ | Office | Orthopedic Surgery | Monster White MD | | | 2019 | Visit | | [address] [facility] | | | | | | [place], | | | | | | [place] [address] | | | | | | [phone] | | | | | | | | +--------+---------+ + + + | 07/30/ | Office | Cardiology | Agata Tinajero DO | | | 2020 | Visit | | [address] | | | | | | [address] [place], [place] | | | | | | [address] | | | | | | | [...] radiculopathy ICD-10 Code M54.16 Clementine Phoenix | [facility] | | Annabella presents to the fluoroscopy suite for [facility] | | fluoroscopically-guided bilateral L5-S1 transforaminal [...] ST. | [address] | [place] | [phone] | | [facility] | | [address] | | | - IMAGING | | | | + + + + + documented in this encounter Visit Diagnoses + + | Diagnosis | + + | Lumbar radiculopathy - Primary Thoracic or lumbosacral neuritis or radiculitis, | | unspecified | + + | Spinal stenosis of lumbar region with jxthsgodovpun-F8-U3 level moderately severe | | Spinal stenosis, [...]
--- OUTSIDE RECORDS SUMMARY | ~2019-05-12 | XMS | Encounter Summary ---
Demographics + + + | Address | [address] | | | [place] [address] | + + + | Home Phone [...] [place], | | | | | [place] [address] | | + + + + + | Kellen Briones | ECON | [place], [place] | | | | | [address] | | + + + + + Care Team Providers + +------+ + | Care Meat Supervisor Name | Role | Phone | [...] + + | 12/22/ | Telephone | [facility] | Ramon Real | Appointment | | 2012 | | [address] | [address] | (Appointment | | | | [address] | [place], [place] | request) | | | | [place], [place] | [address] | | | | | [address] | [phone] | | | | | [phone] | | | +--------+ + + + [...] | | | | | | [place] [address] | | | | | | [phone] | | | | | | | | +--------+---------+ + + + | 07/30/ | Office | Cardiology | Agata Tinajero DO | | | 2019 | Visit | | [address] | | | | | | [place] | | | | | | [address] | | | | | | | | +--------+---------+ + + + documented as of this encounter Visit Diagnoses Not on filedocumented in this encounter"
--- OUTSIDE RECORDS SUMMARY | ~2019-05-12 | XMS | Encounter Summary ---
Demographics + + + | Address | [address] | | | [place] [address] | + + + | Home Phone [...] [place], | | | | | [place] [address] | | + + + + + | Kellen Briones | ECON | [place], [place] | | | | | [address] | | + + + + + Care Team Providers + +------+ + | Care Hr Intern Name | Role | Phone | [...] NEUROSURGERY [address] | F, [address] | Dx) | | | | [address] | [place] | | | | | [place], [place] | [address] | | | | | [address] | [phone] | | | | | [phone] | | | +--------+ + + + [...] | 2019 | Visit | | [address] | | | | | | [place] | | | | | | [place] [address] | | | | | | [phone] | | | | | | | | +--------+---------+ + + + | 07/30/ | Office | Cardiology | Agata Tinajero DO | | | 2019 | Visit | | [address] | | | | | | [place] | | | | | | [address] | | | | | | | [...]
--- OUTSIDE RECORDS SUMMARY | ~2019-05-12 | XMS | Encounter Summary ---
Demographics + + + | Address | [address] | | | [place] [address] | + + + | Home Phone [...] [place], | | | | | [place] [address] | | + + + + + | Kellen Briones | ECON | [place], [place] | | | | | [address] | | + + + + + Care Team Providers + +------+ + | Care Industrial Sales Manager Name | Role | Phone | [...] + + | 01/23/ | Telephone | [facility] | Mono Diaz, | Medication Question | | 2017 | | PHYSIATRY [address] | PA-C [address] | | | | | [place], | [address] [place] | | | | | [place] [address] | [place] [address] | | | | | [phone] | [phone] | | | | | | | [...] | | | | | | [place] [address] | | | | | | [phone] | | | | | | | | +--------+---------+ + + + | 07/30/ | Office | Cardiology | Agata Tinajero DO | | | 2019 | Visit | | [address] | | | | | | [place] | | | | | | [address] | | | | | | | | +--------+---------+ + + + documented as of this encounter Visit Diagnoses Not on filedocumented in this encounter"
--- OUTSIDE RECORDS SUMMARY | ~2019-05-12 | XMS | Encounter Summary ---
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 Longo at [facility]. 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 MRA of the head and neck was unremarkable for large v essel stenosis or occlusion. She also had EEG which showed mild diffuse slowing of the back ground without epileptiform discharges. She was seen by it architecture analyst at [facility]. She reported that she had Holter [...] Stroke Syncope and collapse Cancer Breast Hyperlipidemia [place] (myocardial infarction) GERD (gastroesophageal reflux disease) Asthma Arthritis Lumbar radiculopathy 07/23/2012 DDD (degenerative disc disease), lumbar 07/23/2012 Spinal stenosis of lumbar region with vvugnudttaclc-U0-P9 level moderately severe 2012 Facet arthritis of [...] She did have history of starting multiple ORTHOTIC ASSISTANT depressant medications since last February. These ep [...] | 2019 | Visit | | [address] | | | | | | [place], | | | | | | [place] [address] | | | | | | [phone] | | | | | | | | +--------+---------+ + + + | 07/30/ | Office | Cardiology | Agata Tinajero DO | | | 2020 | Visit | | [address] | | | | | | [place] | | | | | | [address] | | | | | | | [...]
--- OUTSIDE RECORDS SUMMARY | ~2019-05-12 | XMS | Encounter Summary ---
Demographics + + + | Address | [address] | | | [place] [address] | + + + | Home Phone [...] | Author | [facility] | | | and [place] | + + + | Organization | [facility] | | | and [place] | + + + | Address | Unknown | + + + | Phone | Unavailable | + + + Support + + + + + | Name | Relationship | Address | Phone | + + + + + | Lucy Winchester | ECON | [place], | | | | | [place] [address] | | + + + + + | Kellen Briones | ECON | [place], [place] | | | | | [address] | | + + + + + Care Team Providers + +------+ + | Care Housekeeper Name | Role | Phone | + [...] | | | claudication | B | [address] | | | | | Procedures | [place], [place] | Phone: | | | | | MRI Lumbar | [address] | [phone] | | | | | Spine wo | Phone: | Fax: | | | | | Contrast | [phone] | [phone] | | | | | | Fax: | | | | | | | [phone] | | +--------+--------+ + + + + Encounter Details +--------+ + + + + | Date | Type | Department | Care Team | Description | +--------+ + + + + | 04/09/ | Hospital | [facility] | Monster White MD | | | 2019 | Encounter | MED CTR MRI [address] | [address] | | | | | [place], | [place], | | | | | [place] [address] | [place] [id number] | | | | | [phone] | [phone] | | | | | | | [...] | | | | | [place] [address] | | | | | | [phone] | | | | | | | | +--------+---------+ + + + | 07/30/ | Office | Cardiology | Agata Tinajero DO | | | 2019 | Visit | | [address] | | | | | | [place] | | | | | | [address] | | | | | | | [...] effects the | | right side at L1-P1ibusr it is severe and bilaterally at L5-S1 [...]
--- OUTSIDE RECORDS SUMMARY | ~2019-05-12 | XMS | Encounter Summary ---
Demographics + + + | Address | [address] | | | [place] [address] | + + + | Home Phone [...] [place], | | | | | [place] [address] | | + + + + + | Kellen Briones | ECON | [place] | | | | | [address] | | + + + + + Care Team Providers + +------+ + | Care Handbell Choir Director Name | Role | Phone | + +------+ + | Barb Maret | THANG | | + +------+ + [...] | | | [address] | Way [place], [place] | | | | | [place], [place] | [address] | | | | | [address] | | | | | | [phone] | | | +--------+ + + + [...] | 2019 | Visit | | [address] | | | | | | [place], | | | | | | [place] [address] | | | | | | [phone] | | | | | | | | +--------+---------+ + + + | 07/30/ | Office | Cardiology | Agata Tinajero DO | | | 2019 | Visit | | [address] | | | | | | [place] | | | | | | [address] | | | | | | | [...] | A Obed: 1.09 m/s MV Dec [place]: 3.29 m/s2 MV DecT: 238.09 ms | [...] TR Vmax: 2.69 m/s | | | Laundry Equipment Operator: DBS Authenticated by: BUCK SOTO MD Report | | | Date/Time: -- 59_04-1-6331_49:20:29 | | + + + + + [...] | 4.30 cmLVPWd: 1.07 cmLVOT Area: 3.11 qe4DTKI Diam: 1.99 cm%FS: 46.50 %EF(Teich): | | [...] mlLAESV Index (A-L): 19.79 ml/m2LAAs A2C: 12.56 aw4SRBWV | | A-L A2C: 31.66 mlLALs A2C: 4.23 cmLAAs A4C: 13.43 qa0TXNFC A-L A4C: 33.50 | | mlLALs A4C: 4.57 cmRAAs: 11.82 vx1XZRID A-L: 26.21 mlRAESV MOD: 26.46 mlRALs: | | 4.52 cmTAPSE: 1.59 cmAV maxP.72 mmHgAV meanP.52 mmHgAV Vmax: 1.63 m/Shreyas | | Vmean: 1.09 m/Shreyas VTI: 32.89 cmAVA Vmax: 2.19 cm2AVA (VTI): 1.98 so8EPOM | | (Vmax): 0.00 cm2/m2AVAI (VTI): 0.00 cm2/m2LVOT maxP.34 mmHgLVOT meanP.29 | | mmHgLVSI Dopp: 38.17 ml/m2LVSV Dopp: 65.27 mlLVOT Vmax: 1.15 m/sLVOT Vmean: | | 0.68 m/sLVOT VTI: 20.94 cmMV A Obed: 1.09 m/sMV Dec [place]: 3.29 m/s2MV DecT: | | 238.09 msMV E Obed: 0.78 m/sMV E/A Ratio: 0.71MV PHT: 69.04 msMVA By PHT: 3.18 | | hp4Lptcjv e': 0.05 m/sSeptal E/e': 15.64Lateral e': 0.06 m/sLateral E/e': | | 11.34RAP: 5 mmHgRVSP: 33.95 mmHgTR maxP.95 mmHgTR Vmax: 2.69 m/s | | Laundry Equipment Operator: DBSAuthenticated by: Armen ROY Date/Time: -- | | 78_[id number]_78:20:29 IMPRESSION: 1. Overall left ventricular systolic function [...] A Obed: 1.09 m/s | |MV Dec [place]: 3.29 m/s2 | |MV DecT: 238.09 ms [...] |TR Vmax: 2.69 m/s | | | |Laundry Equipment Operator: DBS | |Authenticated by: BUCK SOTO MD | |Report Date/Time: 42_[id number]_44:20:29 | | | |IMPRESSION: | |1. Overall [...]
--- OUTSIDE RECORDS SUMMARY | ~2019-05-12 | XMS | Encounter Summary ---
Demographics + + + | Address | [address] | | | [place] [address] | + + + | Home Phone [...] [place], | | | | | [place] [address] | | + + + + + | Kellen Briones | ECON | [place], [place] | | | | | [address] | | + + + + + Care Team Providers + +------+ + | Care Hand Tacker Name | Role | Phone | [...] + + | 08/19/ | Office | [facility] | Mono Diaz, | Lumbar radiculopathy | | 2019 | Visit | PHYSIATRY [address] | PA-C [address] | (Primary Dx) | | | | [place], | [address] [place] | | | | | [place] [address] | [place] [address] | | | | | [phone] | [phone] | | | | | | | [...] press against a nerve. Date Last Reviewed: 08/01/201719992313-3784 [employer] [address] [place] [address], [place] [address]. All righ ts reserved. This information is [...] and narcotic medications use; she currently uses [place], Flexeril and [place] bapentin. Patient's medications, allergies, [...] no apparent deficits with short or intermediate memory. She has appropriate fund of [...] PT (multiple sessions over the years) and career guidance counselor. Unfortunately Clementine Winchester continues to have significant [...] | 2018 | Visit | | [address] | | | | | | [place], | | | | | | [place] [address] | | | | | | [phone] | | | | | | | | +--------+---------+ + + + | 07/30/ | Office | Cardiology | Agata Tinajero DO | | | 2019 | Visit | | [address] | | | | | | [place] | | | | | | [address] | | | | | | | [...] + | Performing | Address | City/State[facility] | Phone Number | | Organization [...]
--- OUTSIDE RECORDS SUMMARY | ~2019-05-12 | XMS | Encounter Summary ---
Demographics + + + | Address | [address] | | | [place] [address] | + + + | Home Phone [...] [place], | | | | | [place] [address] | | + + + + + | Kellen Briones | ECON | [place], [place] | | | | | [address] | | + + + + + Care Team Providers + +------+ + | Care Trucking Contractor Name | Role | Phone | [...] [address] | | | | | [place], [place] | [place] [address] | | | | | [address] | [phone] | | | | | [phone] | | | +--------+ + + + [...] | | | | | | [place] [address] | | | | | | [phone] | | | | | | | | +--------+---------+ + + + | 07/30/ | Office | Cardiology | Agata Tinajero DO | | | 2019 | Visit | | [address] | | | | | | [place] | | | | | | [address] | | | | | | | [...] At | + + + | [facility] | | | [facility] [address] | | | , | | | [id number]/RADIOLOGY Patient Name: CLEMENTINE NUNEZ Date of : | | | 1940 Medical Record: [id number] Account: [id number] // | | | Exam Date/Time: 07/06/2009 [...] 09:44 P | | | P P [facility]//[id number]/ | | | cc: MD MARCIA WHITE MD SARAVANA | | | MD LUZ ELENA | | + + + + + | Procedure Note | + + | Nilay Lawrence - 01/25/2019 5:24 PM PDT | | [facility] | | [facility] [address] | | , | | | | [id number]/RADIOLOGY | | | | Patient Name: CLEMENTINE NUNEZ | | Date of : 1940 | | Medical Record: [id number] | | Account: [id number] | | // | | | | [...] | P | | P | | [facility]/[id number]/[id number]/ | | cc: YANNICK MCKINNEY MD | | MARCIA MOTLEY MD | | KERA LAGUNA MD | + + documented in this encounter Visit Diagnoses + + | Diagnosis | + + | Chest pain, unspecified | + + documented in this encounter"
--- OUTSIDE RECORDS SUMMARY | ~2019-05-12 | XMS | Encounter Summary ---
Demographics + + + | Address | [address] | | | [place] [address] | + + + | Home Phone [...] [place], | | | | | [place] [address] | | + + + + + | Kellen Briones | ECON | [place], [place] | | | | | [address] | | + + + + + Care Team Providers + +------+ + | Care Crystal Inspector Name | Role | Phone | [...] | | | | lumbar | [place] [address] | [address] Phone: | | | | | region DDD | Phone: | [phone] | | | | | (degenerativ | [phone] | Fax: | | | | | e disc | Fax: | [phone] | | | | | disease), | [phone] | | | | | | lumbar [...] + + | 12/08/ | Office | [facility] | Mono Diaz, | Lumbar radiculopathy | | 2019 | Visit | PHYSIATRY [address] | PA-C [address] | (Primary Dx); | | | | [place], | [address] [place] | Spondylolisthesis [place] | | | | [place] [address] | [place] [address] | lumbar region; DDD | | | | [phone] | [phone] | (degenerative disc | | | | | | disease), lumbar; | | | | | | Spinal stenosis of | | | | | | lumbar region with | | | | | | fegusafngqocx-W4-B8 | | | | | | level [...] disk, and irritate nerves. Date Last Reviewed: 11/01/201719991937-0890 [employer]. [address] [place] [address], [place] [address]. All righ ts reserved. This information is not intended as a substitute for professional medical care. Always follow your healthcare professional's instructions. documented in this encounter Progress Notes Mono Daiz PA-C - 12/08/2018 2:40 PM PDTFormatting of this note might be different fro m the original. Mono Diaz PA-C [address] [facility], [address] [place] [address] FAX: CHIEF COMPLAINT: Chief Complaint Patient presents [...] apparent deficits with short or mcc memory. The cranial nerves appear grossly intact. [...] lumbar Spinal stenosis of lumbar region with vjxhpwbokqhii-Q9-O4 level moderately severe PLAN: 1) Today we [...] PT (multiple sessions over the years) and overnight caregiver. Unfortunately Clementine Winchester continues to have [...] up appt with cardiology later this m [facility]. I spent 30 minutes in visit with [...] | 2019 | Visit | | [address] | | | | | | [place], | | | | | | [place] [address] | | | | | | [phone] | | | | | | | | +--------+---------+ + + + | 07/30/ | Office | Cardiology | Agata Tinajero DO | | | 2020 | Visit | | [address] | | | | | | [place] | | | | | | [address] | | | | | | | [...] with | | | | | | fexlodukilpec-S1-W7 | | | | | | level [...] | Spinal stenosis of lumbar region with rxwdvmrrfwnij-T5-Q1 level moderately severe | | Spinal stenosis, lumbar region, without neurogenic claudication | + + documented in this encounter
--- OUTSIDE RECORDS SUMMARY | ~2019-05-12 | XMS | Encounter Summary ---
Demographics + + + | Address | [address] | | | [place] [address] | + + + | Home Phone [...] [place], | | | | | [place] [address] | | + + + + + | Kellen Briones | ECON | [place], [place] | | | | | [address] | | + + + + + Care Team Providers + +------+ + | Care Lime Boiler Name | Role | Phone | + +------+ + | Anna De Guzman PA-C | PCP | | + +------+ + Encounter Details +--------+ + + + + | Date | Type | Department | Care Team | Description | +--------+ + + + + | 03/07/ | Hospital | [facility] | Irving Becerril, | | | 2016 | Encounter | MED CTR LABORATORY | DO [address] | | | | | [address] [facility] | [address] [place], [place] | | | | | [place], [place] | [address] | | | | | [address] | | | | | | [phone] | | | +--------+ + + + [...] | | | | | | [place] [address] | | | | | | [phone] | | | | | | | | +--------+---------+ + + + | 07/30/ | Office | Cardiology | Agata Tinajero DO | | | 2019 | Visit | | [address] | | | | | | [place] | | | | | | [address] | | | | | | | | +--------+---------+ + + + documented as of this encounter Visit Diagnoses Not on filedocumented in this encounter"
--- OUTSIDE RECORDS SUMMARY | ~2019-05-12 | XMS | Encounter Summary ---
Demographics + + + | Address | [address] | | | [place] [address] | + + + | Home Phone [...] [place], | | | | | [place] [address] | | + + + + + | Kellen Briones | ECON | [place] | | | | | [address] | | + + + + + Care Team Providers + +------+ + | Care Sewing Supervisor Name | Role | Phone | + +------+ + | Barb Marte | THANG | | + +------+ + Encounter Details +--------+ + + + + | Date | Type | Department | Care Team | Description | +--------+ + + + + | 04/09/ | Hospital | [facility] | Monster White MD | Lumbar stenosis with | | 2019 | Encounter | MED CTR XRAY [address] | [address]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 | | | | [place] | [place], | claudication | | | | [place] [address] | [place] [address] | | | | | [phone] | | | | | | | [...] | | | | | | [place] [address] | | | | | | [phone] | | | | | | | | +--------+---------+ + + + | 07/30/ | Office | Cardiology | Agata Tinajero DO | | | 2019 | Visit | | [address] | | | | | | [place] | | | | | | [address] | | | | | | | [...]
--- OUTSIDE RECORDS SUMMARY | ~2019-05-12 | XMS | Clinical Summary ---
Demographics + + + | Address | [address] | | | [place] [address] | + + + | Home Phone [...] [place], | | | | | [place] [address] | | + + + + + | Kellen Briones | ECON | [place] | | | | | [address] | | + + + + + Care Team Providers + +------+ + | Care Cath Lab Nurse Name | Role | Phone | [...] 03/30/2016 | + + + | H/O MS (myocardial infarction) | 03/30/2016 | + + [...] | Spinal stenosis of lumbar region with ryyhgecxtqqdc-E3-L2 level | 07/23/2012 | | moderately severe [...] | Hyperlipidemia | | + +---+ | MS (myocardial infarction) | | + +---+ | [...] | 2018 | Visit | | | [place] coronary | | | | | | artery of [place] | | | | | | heart [...] | 2019 | Visit | | [address] [facility] [address] | | | | | | [place], | | | | | | [place] [address] | | | | | | [phone] | | | | | | | | +--------+---------+ + + + | 07/30/ | Office | Cardiology | Agata Tinajero DO | | | 2019 | Visit | | [address] | | | | | | [place] | | | | | | [address] | | | | | | | [...] + +--------+--------+ +--------+--------+--------+ | Cage Funmilayo Ptc [id number] - | Generi | Anteri | [employer] - | | 10/20/ | [id number] | | [id number]: Qty: 1 on | c | or: | MEDT | | 2023 | 4 / | | 03/30/2016 by Irving Becerril | | Spine | | | | /[id number] | | DO Chloe at [facility] | | Cervic | | | | | | [facility] | | al | | | | | + +--------+--------+ +--------+--------+--------+ | Cage Funmilayo Ptc [id number] - | Generi | Anteri | [employer] - | | 01/03/ | [id number] | | [id number]: Qty: 1 on | c | or: | MEDT | | 2022 | 4 / | | 03/30/2016 by Irving Becerril | | Spine | | | | /[id number] | | DO Chloe at [facility] | | Cervic | | | | | | [facility] | | al | | | | | + +--------+--------+ +--------+--------+--------+ | Cage Funmilayo Ptc [id number] - | Generi | Anteri | [employer] - | | 10/20/ | [id number] | | [id number]: Qty: 1 on | c | or: | MEDT | | 2023 | 4 / | | 03/30/2016 by Irving Becerril | | Spine | | | | /81BS | | A, DO at [facility] | | Cervic | | | | | | [facility] | | al | | | | | + +--------+--------+ +--------+--------+--------+ | Cage Funmilayo Ptc [id number] - | Generi | Anteri | [employer] - | | 10/20/ | 711145 | | [id number]: Qty: 1 on | c | or: | MEDT | | 2023 | 4 / | | 03/30/2016 by Irving Becerril | | Spine | | | | /80BS | | A, DO at [facility] | | Cervic | | | | | | [facility] | | al | | | | | + +--------+--------+ +--------+--------+--------+ | Putty Bone Db Grftn 2.5cc - | Graft | Anteri | [employer] - | | 06/30/ | [id number] | | [id number]: Qty: 1 | | or: | MEDT | | 2018 | | | on 03/30/2016 by Jerrica, | | Spine | | | | /[id number] | | Irving Corona DO at [facility] | | Cervic | | | | 6-016 | | [facility] | | al | | | | / | + +--------+--------+ +--------+--------+--------+ | Plate [place] Cerv 75mm | Plate | Anteri | [employer] - | | | [id number] | | - [id number]: Qty: 1 | | or: | MEDT | | | / | | on 03/30/2016 by Jerrica, | | Spine | | | | | | Irving Corona DO at [facility] | | Cervic | | | | | | [facility] | | al | | | | | + +--------+--------+ +--------+--------+--------+ | Screw Slf-Drl V/A 4.0x16mm - | Screw | Anteri | [employer] | | | [id number] | | [id number]: Qty: 5 on | | or: | ANGELEK - DIV | | | / | | 03/30/2016 by Irving Becerril | | Spine | [employer] | | | | | DO Chloe at [facility] | | Cervic | - [facility] | | | | | [facility] | | al | | | | | + +--------+--------+ +--------+--------+--------+ | Screw Slf-Drl V/A 4.0x17mm - | Screw | Anteri | SOFAMOR | | | [id number] | | [id number]: Qty: 4 on | | or: | DANEK - DIV | | | | | 03/30/2016 by Irving Becerril | | Spine | [employer] | | | | | A, DO at [facility] | | [facility] | - [facility] | | | | | [facility] | | al | | | | | + +--------+--------+ +--------+--------+--------+ | Screw Slf-Dr V/A 4.5x15mm - | Screw | Anteri | [employer] - | | | [id number] | | [id number]: Qty: 1 on | | or: | MEDT | | | | | 03/30/2016 by Irving Becerril | | Spine | | | | | | A, DO at [facility] | | [facility] | | | | | | [facility] | | al | | [...] + | Performing | Address | City/State[facility] | Phone Number | | Organization [...] CT imaging was obtained through the | [facility] | | lumbar spine [...] effects the | | right side at L1-O7yssia it is severe and bilaterally at L5-S1 [...] +--------+ +---------+--------+ | AARP | AARP | [id number] | 06/03/19 | [phone] | | Indemn | | | MDCR | | 19-Pre | 0 | | ity | | | SUPPL | | sent | | | | + +--------+ +--------+ +---------+--------+ | | CHAM[employer] | [id number] | | [phone] | | Indemn | | | A | | 997-Pr | 7 | | ity | | | | | esent | | | | + +--------+ +--------+ +---------+--------+ | MEDICARE | MEDICA | [id number] | | [phone] | | Medica | | | RE | | 007-Pr | 5 | | re | | | PART A | | esent | | | | | | AND B | | | | | | + +--------+ +--------+ +---------+--------+ | MEDICARE | MEDICA | [id number] | | [phone] | | Medica | | | RE | | 012-Pr | 5 | | re | | | PART A | | esent | | | | | | AND B | | | | | | + +--------+ +--------+ +---------+--------+ | AARP | AARP | [id number] | 06/03/19 | [phone] | | Indemn | | | MDCR | | 19-Pre | 0 | | ity | | | SUPPL | | sent | | | | + +--------+ +--------+ +---------+--------+ | | CHAMPV | [id number] | | [phone] | | Indemn | [...] [place] | | | 6 (Home) | [address] | + +--------+ +--------+ + + | Clementine Winchester | Person | Self | [birth year] | [address] | | | al/Fam | | 1940 | [phone] | [place], [place] | | | amanuel | | | 6 (Home) | [address] | | | | | | [phone] | | | | | | | 3 (Work) | | + +--------+ +--------+ + + Advance Directives + + + + + | Type | Date Recorded | Patient | Explanation | | | | Restorative Care Technician | | + + + + + | Power of | | | | | Refrigeration Mechanic | | | | + + + [...]
--- OUTSIDE RECORDS SUMMARY | ~2019-05-12 | XMS | Encounter Summary ---
Demographics + + + | Address | [address] | | | [place] [address] | + + + | Home Phone [...] [place], | | | | | [place] [address] | | + + + + + | Kellen Briones | ECON | [place], [place] | | | | | [address] | | + + + + + Care Team Providers + +------+ + | Care Screen Repairer Crusher Name | Role | Phone | + [...] | (Primary Dx); | | | | [place], | [address] [place], | Spinal stenosis of | | | | [place] [address] | [place] [address] | lumbar region with | | | | [phone] | [phone] | [id number] | | | | | | level [...] of the procedure you must provide a long haul truck driver to take you home. [...] and narcotic medications use; she currently uses [place], Flexeril and [place] bapentin. Patient's medications, allergies, [...] has no apparent deficits with short or care home memory. She has appropriate fund of [...] 2. Spinal stenosis of lumbar region with zehxpwnuvxdfc-I4-W1 level moderately severe 3. DDD (degenerative disc [...] be performed by me in the near [facility] re. 2. I did not [...] | 2019 | Visit | | [address] [facility] | | | | | | [place], | | | | | | [place] [address] | | | | | | [phone] | | | | | | | | +--------+---------+ + + + | 07/30/ | Office | Cardiology | Agata Tinajero DO | | | 2020 | Visit | | [address] | | | | | | [facility], [place] | | | | | | [address] | | | | | | | [...] radiculopathy ICD-10 Code M54.16 Clementine [place] | [facility] | | Annabella presents to the fluoroscopy suite for [facility] | | fluoroscopically-guided bilateral L5-S1 transforaminal [...] ST. | [address] | [place] | [phone] | | [facility] | | [address] | | | - IMAGING | | | | + + + + + documented in this encounter Visit Diagnoses + + | Diagnosis | + + | Lumbar radiculopathy - Primary Thoracic or lumbosacral neuritis or radiculitis, | | unspecified | + + | Spinal stenosis of lumbar region with onbqitbeswfto-H3-T7 level moderately severe | | Spinal stenosis, [...]
--- OUTSIDE RECORDS SUMMARY | ~2019-05-12 | XMS | Encounter Summary ---
Demographics + + + | Address | [address] | | | [place] [address] | + + + | Home Phone [...] [place], | | | | | [place] [address] | | + + + + + | Kellen Briones | ECON | [place], [place] | | | | | [address] | | + + + + + Care Team Providers + +------+ + | Care Athletic Shoe Designer Name | Role | Phone [...] | | Spinal | PA[address]C [address] | [place], [place] | | | | | stenosis, | [address] | [address] | | | | | other region | Ave | Phone: | | | | | Procedures | Eduardo, | [phone] | | | | | ID OFFICE | [place] | Fax: | | | | | CONSULTATION | [address] | [phone] | | | | | NEW/ESTAB | Phone: | | | | | | PATIENT 62 | [phone] | | | | | | MIN | Fax: | | | | | | | [phone] | | +--------+--------+ + + + + Encounter Details +--------+---------+ + + + | Date | Type | Department | Care Team | Description | +--------+---------+ + + + | 11/13/ | Office | 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 Then, look for Anterior Cervical Discectomy and Fusion (ACDF). documented in this encounter Progress Notes Gonzalo Mathew MD - 11/13/2013 11:00 AM PDTFormatting of this note might be different from t he original. Gonzalo Mathew MD [address] [place] [address], [address] [place] [address] FAX: NEUROSURGERY HISTORY AND PHYSICAL EXAMINATION CHIEF [...] 07/23/2012 Spinal stenosis of lumbar region with sybmvjaiykwzf-G3-E5 level moderately severe 2012 Facet arthritis of [...] 1989' Mastectomy, radical 1987 Right Breast reconstruction 5150-1376 ABout 10 surgeries Bone spur left foot [...] apparent deficits with short or long-term memory. CRANIAL NERVES: II: Acuity is intact. [...] Intrinsics 5 5 Ulnar Intrinsics 5 5 Diesel Scoop Operator Strength 5 5 Hip Flexion 5 5 [...] 07/23/2012 Spinal stenosis of lumbar region with qblizfbuhlman-Z4-T0 level moderately severe 2012 Facet arthritis of [...] | 2019 | Visit | | [address] | | | | | | [place], | | | | | | [place] [address] | | | | | | [phone] | | | | | | | | +--------+---------+ + + + | 07/30/ | Office | Cardiology | TinajeroAgata DO | | | 2019 | Visit | | [address] | | | | | | [place] | | | | | | [address] | | | | | | | [...]
--- OUTSIDE RECORDS SUMMARY | ~2019-05-12 | XMS | Encounter Summary ---
Demographics + + + | Address | [address] | | | [place] [address] | + + + | Home Phone [...] [place], | | | | | [place] [address] | | + + + + + | Kellen Briones | ECON | [place], [place] | | | | | [address] | | + + + + + Care Team Providers + +------+ + | Care Folder Inspector Name | Role | Phone | [...] | | | | | [address] | [place] | | | | | [place] | [address] | | | | | [address] | | | | | | [phone] | | | +--------+ + + + [...] +----+---+ + + | | 1 | [place] | | | | 4 | 43-degrees [...] [address] | | eral | Antecubital; [id number] | Magdalena Burdick, RN | Tatiana Crowe, [...] | | | | | | [place] [address] | | | | | | [phone] | | | | | | | | +--------+---------+ + + + | 07/30/ | Office | Cardiology | Agata Tinajero DO | | | 2019 | Visit | | [address] | | | | | | [place] | | | | | | [address] | | | | | | | [...]
--- OUTSIDE RECORDS SUMMARY | ~2019-05-12 | XMS | Encounter Summary ---
Demographics + + + | Address | [address] | | | [place] [address] | + + + | Home Phone [...] [place], | | | | | [place] [address] | | + + + + + | Kellen Briones | ECON | [place], [place] | | | | | [address] | | + + + + + Care Team Providers + +------+ + | Care Toddler Caregiver Name | Role | Phone | + [...] Lumbar | AYAAN Villareal | [address] | | | | | radiculopath | [address] | [place], | | | | | y | [address] | [place] | | | | | Procedures | [place] [address] | [address] | | | | | MRI Lumbar | [place], | Phone: | | | | | Spine wo | [place] [address] | [phone] | | | | | Contrast | Phone: | Fax: | | | | | | [phone] | [phone] | | | | | | Fax: | | | | | | | [phone] | | +--------+--------+ + + + + Reason for Visit + + + | Reason | Comments | + + + | Follow-up | Low Back Pain | + + + Encounter Details +--------+---------+ + + + | Date | Type | Department | Care Team | Description | +--------+---------+ + + + | 01/07/ | Office | [facility] | Mono Diaz, | Lumbar radiculopathy | | 2018 | Visit | PHYSIATRY [address] | PA-C [address] | (Primary Dx); | | | | [place], | [address] [place] | Spinal stenosis of | | | | [place] [address] | [place] [address] | lumbar region with | | | | [phone] | [phone] | uczhnvucricyd-J6-B3 | | | | | | level [...] press against a nerve. Date Last Reviewed: 03/06/201519997745-0139 [employer]. [address] [place] [address]. All righ ts reserved. This information is [...] and narcotic medications use; she currently uses [place], Flexeril and [place] bapentin. 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 Unfortunately Clementine Winchester continues to have significant [...] | 2018 | Visit | | [address] | | | | | | [place] | | | | | | [place] [address] | | | | | | [phone] | | | | | | | | +--------+---------+ + + + | 07/30/ | Office | Cardiology | Agata Tinajero DO | | | 2019 | Visit | | [address] | | | | | | [place] | | | | | | [address] | | | | | | | [...] L4 nerve root along with the descending C4nrtql | | roots within the subarticular recesses.L5-S1: Moderate to severe disc space narrowing | | and generalized disc osteophytecomplex combine with dorsal ligamentous and facet | | hypertrophy to moderatelynarrow the foramina to a similar degree, with encroachment on | | the exiting H9prsnc roots along with the descending S1 nerve [...] 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 LEVOSCOLIOSIS AND MULTILEVEL FACET | [...] | Spinal stenosis of lumbar region with pptywnitsqyzp-J9-K2 level moderately severe | | Spinal stenosis, lumbar region, without neurogenic claudication | + + documented in this encounter
--- OUTSIDE RECORDS SUMMARY | ~2019-05-12 | XMS | Encounter Summary ---
Demographics + + + | Address | [address] | | | [place] [address] | + + + | Home Phone [...] [place], | | | | | [place] [address] | | + + + + + | Kellen Briones | ECON | [place], [place] | | | | | [address] | | + + + + + Care Team Providers + +------+ + | Care Mobile Solutions Architect Name | Role | Phone | [...] + + | 04/13/ | Telephone | [facility] | Irving Becerril, | Other (Return to | | 2015 | | NEUROSURGERY [address] | DO [address] | work ) | | | | [address] [facility] [address] | [address] [place], [place] | | | | | [place], [place] | [id number] | | | | | [address] | | | | | | [phone] | | | +--------+ + + + [...] | | | | | | [place] [address] | | | | | | [phone] | | | | | | | | +--------+---------+ + + + | 07/30/ | Office | Cardiology | Agata Tinajero DO | | | 2019 | Visit | | [address] | | | | | | [place] | | | | | | [address] | | | | | | | | +--------+---------+ + + + documented as of this encounter Visit Diagnoses Not on filedocumented in this encounter"
--- OUTSIDE RECORDS SUMMARY | ~2019-05-12 | XMS | Encounter Summary ---
Demographics + + + | Address | [address] | | | [place] [address] | + + + | Home Phone [...] Organization | [facility] | | | and [place] | + + + | Address | Unknown | + + + | Phone | Unavailable | + + + Support + + + + + | Name | Relationship | Address | Phone | + + + + + | Lucy Winchester | ECON | [place], | | | | | [place] [address] | | + + + + + | Kellen Briones | ECON | [place], [place] | | | | | [address] | | + + + + + Care Team Providers + +------+ + | Care Opener Tender Name | Role | Phone | [...] + + | 10/13/ | Telephone | [facility] | Tk Ann | Appointment | | 2012 | | PHYSIATRY [address] | [address] | | | | | [place], | [place], [place] | | | | | [place] [address] | [address] | | | | | [phone] | | | +--------+ + + + [...] | | | | | | [place] [address] | | | | | | [phone] | | | | | | | | +--------+---------+ + + + | 07/30/ | Office | Cardiology | Agata Tinajero DO | | | 2019 | Visit | | [address] | | | | | | [place] | | | | | | [address] | | | | | | | | +--------+---------+ + + + documented as of this encounter Visit Diagnoses Not on filedocumented in this encounter"
--- OUTSIDE RECORDS SUMMARY | ~2019-05-12 | XMS | Encounter Summary ---
Demographics + + + | Address | [address] | | | [place] [address] | + + + | Home Phone [...] [place], | | | | | [place] [address] | | + + + + + | Kellen Briones | ECON | [place] | | | | | [address] | | + + + + + Care Team Providers + +------+ + | Care Consumer Marketing Specialist Name | Role | Phone | + +------+ + | Barb Marte | THANG | | + +------+ + Encounter Details +--------+ + + + + | Date | Type | Department | Care Team | Description | +--------+ + + + + | 01/31/ | Hospital | [facility] | Judson Palacios DO | | | 2018 - | Encounter | [facility] | [address] | | | | | CARE FLO[address] | | | [address]/ | | [address] | [place] [address] | | | 2017 | | [place], [place] | [phone] | | | | | [address] | | | | | | [phone] | | | +--------+ + + + [...] Service: Hospitalist Author Type: Physician Filed: 02/06/18 2125 Date of Service: 02/05/181509 Status: Signed Savings Counselor: Faisal Briceno MD (Physician) [facility] Service: Hospitalist Discharge Summary Date of Admission: [...] confu aura. She was initially admitted to [facility] from 01/16/2018 till 01/28/2018 d ue to suspicion of acute left MCA stroke. Work up there with MRI was negative while Carotid FDopplers showed less than 50 % stenosis. She was subsequently discharged home but she was r eadmitted due to increasing confusion and mild renal failure with creatinine 1.26. She was e ventually transferred to [facility] for further management. She did not have [...] discharge procedures on file. Follow up: [facility] Schedule an appointment as soon [...] Author: JASON Montaño Service: (none) Author Type: Flight Engineer Instructor Filed: 02/05/181418 Date of Service: 02/05/181417 Status: Signed Savings Counselor: JASON Montaño (Flight Engineer Instructor) Pt's daughter is Lucy and can be reached at: [phone]; [phone] JASON Montaño onver aura Transaction, Provider Unknown - 02/05/2018 2:17 PM PDT Case Management by JASON Montaño at 02/05/181416 Author: JASON Montaño Service: (none) Author Type: Flight Engineer Instructor Filed: 02/05/181416 Date of Service: 02/05/181416 Status: Signed Savings Counselor: JASON Montaño (Flight Engineer Instructor) Disposition: Home to [place] Transportation: Daughter Patient and family in agreement with discharge plan Medicare important message (Given or N/A): Given- signed and placed in chart JASON Montaño onver aura Transaction, Provider Unknown - 02/05/2018 6:59 AM PDT Nurse Progress Note by Nila Gonzalez RN at 02/05/18658 Author: Nila Gonzalez RN Service: (none) Author Type: Registered Nurse Filed: 02/05/18701 Date of Service: 02/05/18658 Status: Signed Savings Counselor: Nila Gonzalez RN (Registered Nurse) End of shift review completed by this RN. Nila Gonzalez RN onver aura Transaction, Provider Unknown - 02/05/2018 6:44 AM PDT Nurse Progress Note by Vonnie Nolasco RN at 02/05/18643 Author: Vonnie Nolasco RN Service: (none) Author Type: Registered Nurse Filed: 02/05/18647 Date of Service: 02/05/18643 Status: Signed Savings Counselor: Vonnie Nolasco RN (Registered Nurse) Patient A/OX4, [...] 02/05/18226 Date of Service: 02/05/18224 Status: Signed Savings Counselor: Vonnie Nolasco RN (Registered Nurse) IV occluded, [...] 02/04/181849 Date of Service: 02/04/181838 Status: Signed Savings Counselor: Claribel Kerr RN (Registered Nurse) Patient afebrile, [...] 02/04/181954 Date of Service: 02/04/181629 Status: Signed Savings Counselor: Margo Phillips PT (Physical Therapist) PHYSICAL THERAPY TREATMENT NOTE PT Received On: 02/04/18 Reason for Treatment: Deconditioning Requires PT Follow Up: Yes Follow up PT Only?: No Focus for Next Treatment: Stair Training, Family Training/Education (see comment), Patient Education (see comment) Assistance Required: 1 person Oil Process [place]man Needed: No Recommendations: Home Assist, Prior Setting, Acute ST, Acute OT, OP PT (resume previous OPP T) Equipment Recommended: (none, has SPC and 4ww at baseline) Barriers to Discharge: Cognitive Deficits Impacting Functional [place], Physical Defic its Impacting Functional [place], Self-care Deficits Impacting Functional [place] Recommendation Comments: Limitation for ongoing mobility assessment and stair negotiation t joslyn's date 07/05 nausea. Pt requires further mobility assessment to maximize safe d/c plan. A nticipate home with daughter with 24/12 assist and resume OPPT for balance deficits. Plan Treatment/Interventions: Continue per Primary PT POC Progress: Progressing toward goals PT Frequency: 5-7x/wk, Once per day Summary Comments: Pt received finishing shower with DIRECTOR REHABILITATION PROGRAM, agreeable to PT intervention with emphasis for [...] Date of Service: 02/04/18 1615 Status: Signed Savings Counselor: Tala Muro RD (Registered Dietitian) 02/04/18 1537 [...] Physical Findings Digestive System (Mouth to Rectum) PEWTER CASTER following. Pt reports she doesn't like the [...] Estimated Energy Needs Total Energy Estimated Needs 5018-5709 kcal/day Method for Estimating Needs 25-30 kcal/kg based on adj BW of 55.6 kg Estimated Protein Needs Total Protein Estimated Needs 67-83 g/day Method for Estimating Needs 1.2-1.5 g/kg based on adj BW of 55.6 kg Recommendations Recommended energy needs Continue diet per PEWTER CASTER. Send Boost Pudding TID with meals. Encourag [...] (none) Author Type: Speech Therapist Filed: 02/04/18 7311 Date of Service: 02/04/18 1416 Status: Attested Savings Counselor: EARNEST Francois-S (Speech Therapist) Cosigner: Desi Leary MS [facility]-PEWTER CASTER at 02/04/18 1516 Attestation signed by Desi Leary MS CCC-PEWTER CASTER at 02/04/18 1516 Student therapist educationally participated [...] miguel student's role in care. BEDSIDE SWALLOW PEWTER CASTER Last Visit PEWTER CASTER Received On: 02/04/18 Requires PEWTER CASTER Follow Up: Yes Recommendations Liquids Consistency Recommendations: [place] thick (Ok for thins between meals) Diet [...] are progressing unless otherwise indicated. Dysphagia Goals Assistant Service Manager Goals: Advanced diet Pt will advanced diet [...] evidence of learning [] Refused Tonya Grullon, PEWTER CASTER-S 02/04/2018 3:10 PM Faisal Muse MD - 02/04/2018 11:34 AM PDTFormatting of this note might be different from yadi thibodeaux original. Progress Notes by Faisal Briceno MD at 02/04/18 2384 Author: Faisal Briceno MD Service: Hospitalist Author Type: Physician Filed: 02/04/18 1546 Date of Service: 02/04/18 4214 Status: Signed Savings Counselor: Faisal Briceno MD (Physician) [facility] Service: Hospitalist Progress Note Clementine Winchester 77 y.o. [id number] [id number]/[id number] female PER PT NONE (Inactive) Hospital Day: LOS: 4 days SUBJECTIVE Patient Summary: Patient is a 77 year old female with past medical history of Stroke, CAD, S/P CABG, DM Type II, Chronic Back Pain on Opioids who was admitted due to mental status changes and confusio n. She was initially admitted to [facility] from 01/16/2018 till 01/28/2018 due to suspicion of acute left MCA stroke. Work up there with MRI was negative while Carotid FDo pplers showed less than 50 % stenosis. She was subsequently discharged home but she was read mitted due to increasing confusion and mild renal failure with creatinine 1.26. She was even tually transferred to [facility] for further management. She did not have [...] 02/04/18731 Date of Service: 02/04/18731 Status: Signed Savings Counselor: Thais Castellon RN (Registered Nurse) Pt had [...] 02/03/181705 Date of Service: 02/03/181701 Status: Signed Savings Counselor: Thais Antunez RN (Registered Nurse) Pt alert [...] Date of Service: 02/03/18 1051 Status: Addendum Savings Counselor: Sumit Alvarenga MD (Physician) Related Notes: Original Note by Sumit Alvarenga MD (Physician) filed at 02/03/18 1122 [facility] Service: Hospitalist Progress Note Hospital Day: LOS: 3 days Post-Op Day: * No surgery found * SUBJECTIVE Patient Summary: admission H and P Dr. Palacios:"transferred from [facility] [place] to [facility] today for ongoing confusion of unclear etiology. Originally hospi talized at [facility] 01/26-01/28 due to confusion, aphasia, suspected CVA. Workup included neg MRI, US carotids showing 50% stenosis, unremarkable echo and telemetry. She was evaluate d by PHYSICAL THERAPY/OT/PEWTER CASTER and DC'd home. She reportedly was alert, [...] could not be done at [facility]. She was accepted by Dr Victor [...] dependent chronic back pain, originally hospitalized at [facility] A ugust to the due to suspected left MCA stroke, apparent workup included a negative M RI, ultrasound carotid showed less than 50 percent stenosis, she was subsequently discharged home. She then returned back to [facility] on the evening of January 30 with increased co nfusion, according to notes hyperreflexia, increased renal failure with creatinine 1.26, sh e was hydrated improved renal function, due to ongoing symptoms [facility] requested zamorano sfer to our [...] with patient's daughter over the phone (Leighton [phone]), she is hopeful that she can return [...] able to tell me she is at [facility], able to tell me she lives in [place] on, was unsure of the month and date , Cooperative, calm HENT: Mouth/Throat: No oropharyngeal exudate. 3 mm pupils bilateral, reactive Eyes: Oral mucosa moist Neck: Neck seems supple Cardiovascular: Normal rate. Pulmonary/Chest: Effort normal. Abdomina/Gl: Soft. Bowel sounds are normal. Neurological: She is alert. No cranial nerve deficit. Radio Artist strength equal No pronation drift Motor seems [...] 02/03/18605 Date of Service: 02/02/182212 Status: Signed Savings Counselor: Jessy Jeter RN (Registered Nurse) Alert and [...] 02/02/182007 Date of Service: 02/02/182006 Status: Signed Savings Counselor: Minal Clarke RN (Registered Nurse) BPs remained elevated this shift, PRN hydralazine given x2 and labetolol x1. Pt has trouble finding words at times and has delayed responses. Bed alarm on at all times, end of shift r eview completed. Mnial Clarke RN onver aura Transaction, Provider Unknown - 02/02/2018 3:54 PM PDT Progress Notes by Isacc Vail at 02/02/18 1554 Author: Isacc Vail Service: (none) Author Type: Merchandise Flow Associate Filed: 02/02/18 1618 Date of Service: 02/02/18 1554 Status: Signed Savings Counselor: Isacc Vail (Merchandise Flow Associate) Per Distress Referral. Pt appears calm in [...] Date of Service: 02/02/18 1033 Status: Signed Savings Counselor: Jonathan Montes RN (Registered Nurse) 02/02/18 1024 Discharge Planning Evaluation Admitting Diagnosis Acute Metabolic encephalopathy Readmission No Living Arrangements Children (Pts daughter lives with her Lucy [phone]) Support Systems Children Type of Residence Private residence House type House-1 story Steps to enter 5 Independent with ADL's Yes Independent with Mobility Yes Home Care Services No Caregiver after Discharge No Mental Status Oriented Prior functional status independent Power of Metal Sprayer No Anticipated Discharge Plan Post Acute Care [...] y.o., female from home with keely Ayala [phone]. Daughter will transport pt home when medically stable. Pt uses a 4ww at home when needed, Home o2 thru [employer] at 2L, and no other DME or blood thinners. Patient's PCP is:[facility] Patient's insurance:Medicare/ Coverage concerns: no [...] 02/02/1855 Date of Service: 02/02/18825 Status: Signed Savings Counselor: Sumit Alvarenga MD (Physician) [facility] Service: Hospitalist Progress Note Hospital Day: LOS: 2 days Post-Op Day: * No surgery found * SUBJECTIVE Patient Summary: admission H and P Dr. Palacios:"transferred from [facility] [place] to [facility] today for ongoing confusion of unclear etiology. Originally hospi talized at [facility] 01/26-01/28 due to confusion, aphasia, suspected CVA. Workup included neg MRI, US carotids showing 50% stenosis, unremarkable echo and telemetry. She was evaluate d by PHYSICAL THERAPY/OT/PEWTER CASTER and DC'd home. She reportedly was alert, [...] could not be done at [facility]. She was accepted by Dr Victor [...] dependent chronic back pain, originally hospitalized at [facility] A ugust to the due to suspected left MCA stroke, apparent workup included a negative M RI, ultrasound carotid showed less than 50 percent stenosis, she was subsequently discharged home. She then returned back to [facility] on the evening of January 30 with increased co nfusion, according to notes hyperreflexia, increase her renal failure with creatinine 1.26, she was hydrated improved renal function, due to ongoing symptoms [facility] requested josué mcpherson to our [...] the date, able tell she lives i [facility] though unable to give me full address , Cooperative, calm HENT: Mouth/Throat: No oropharyngeal exudate. 3 mm pupils bilateral, reactive Eyes: Oral mucosa moist Neck: Neck seems supple Cardiovascular: Normal rate. Pulmonary/Chest: Effort normal. Abdomina/Gl: Soft. Bowel sounds are normal. Neurological: She is alert. No cranial nerve deficit. Radio Artist strength equal No pronation drift Motor seems [...] 0636 Date of Service: 02/02/18214 Status: Signed Savings Counselor: Jessy Jeter RN (Registered Nurse) Patient was [...] Note by Jina Nation RN at 02/01/18 3072 Author: Jina Nation RN Service: (none) Author Type: Registered Nurse Filed: 02/01/181900 Date of Service: 02/01/18 1841 Status: Signed Savings Counselor: Jina Nation RN (Registered Nurse) Patient has [...] complete. Jina Nation RN Idalia Darby MS CCC-PEWTER CASTER - 02/01/2018 9:40 AM PDTFormatting of this note might be different fr om the original. Therapy Progress Note by Idalia Katz MS CCC-PEWTER CASTER at 02/01/18 0940 Author: Idalia Katz MS CCC-PEWTER CASTER Service: (none) Author Type: Speech and Language Patho logist Filed: 02/01/18 1001 Date of Service: 02/01/1840 Status: Signed Savings Counselor: Idalia Katz MS CCC-PEWTER CASTER (Speech and Language Pathologist) BEDSIDE SWALLOW PEWTER CASTER Last Visit PEWTER CASTER Received On: 02/01/18 Requires PEWTER CASTER Follow Up: Yes Recommendations Liquids Consistency Recommendations: [place] thick, Sips of thin water ok between [...] laryngeal elevation upon palpation, Spontaneous double swallow [place] Presentation: Cup Oral: Within functional limits Pharyngeal Phase: Delayed swallow initiated, Decreased laryngeal elevation upon palpation, No overt signs or symptoms of aspiration, Spontaneous double swallow Puree Presentation: Spoon Oral Phase: Within functional limits, Increased oral holding time Pharyngeal: No overt signs or symptoms of aspiration, Delayed Swallow, Decreased Laryngeal Elevation, Spontaneous double swallow Goals are progressing unless otherwise indicated. Dysphagia Goals Assistant Service Manager Goals: Advanced diet Pt will advanced diet [...] Notes by Sumit Alvarenga MD at 02/01/18 7336 Author: Sumit Alvarenga MD Service: Hospitalist Author Type: Physician Filed: 02/01/18 0858 Date of Service: 02/01/18830 Status: Addendum Savings Counselor: Sumit Alvarenga MD (Physician) Related Notes: Original Note by Sumit Alvarenga MD (Physician) filed at 02/01/1855 [facility] Service: Hospitalist Progress Note Hospital Day: LOS: 1 day Post-Op Day: * No surgery found * SUBJECTIVE Patient Summary: admission H and P Dr. Palacios:"transferred from [facility] [place] to [facility] today for ongoing confusion of unclear etiology. Originally hospi talized at [facility] 01/26-01/28 due to confusion, aphasia, suspected CVA. Workup included neg MRI, US carotids showing 50% stenosis, unremarkable echo and telemetry. She was evaluate d by PHYSICAL THERAPY/OT/PEWTER CASTER and DC'd home. She reportedly was alert, [...] could not be done at [facility]. She was accepted by Dr Victor [...] dependent chronic back pain, originally hospitalized at [facility] A ugust to the due to suspected left MCA stroke, apparent workup included a negative M RI, ultrasound carotid showed less than 50 percent stenosis, she was subsequently discharged home. She then returned back to [facility] on the evening of January [...] She is alert. No cranial nerve deficit. Radio Artist strength seems bilateral Rigidity with a passive [...] Note by Jessy Jeter RN at 02/01/18 7718 Author: Jessy Jeter RN Service: (none) Author Type: Registered Nurse Filed: 02/01/18 0652 Date of Service: 02/01/18435 Status: Signed Savings Counselor: Jessy Jeter RN (Registered Nurse) Patient alert [...] Note by Jessy Jeter RN at 01/31/18 7645 Author: Jessy Jeter RN Service: (none) Author Type: Registered Nurse Filed: 01/31/182250 Date of Service: 01/31/182245 Status: Signed Savings Counselor: Jessy Jeter RN (Registered Nurse) All oral [...] 01/31/181958 Date of Service: 01/31/181956 Status: Signed Savings Counselor: Keith Bonds RN (Registered Nurse) Pt brought [...] | 2020 | Visit | | [address] | | | | | | [place] | | | | | | [place] [address] | | | | | | [phone] | | | | | | | | +--------+---------+ + + + | 07/30/ | Office | Cardiology | Agata Tinajero DO | | | 2019 | Visit | | [address] | | | | | | [place] | | | | | | [address] | | | | | | | [...] | | | Fingerstick | performed at [facility];[address] | | LAB | | | | [facility];[place], [place] | | | | | | [address] | | | | + + + [...] | | | | | performed at [facility] | | | | | | [facility];[place], [place] | | | | | | [address] | | | | + + + [...] | | | Fingerstick | performed at [facility];[address] | | LAB | | | | [address];[place], [place] | | | | | | [address] | | | | + + + [...] | | | Fingerstick | performed at [facility];[address] | | LAB | | | | [address];[place], [place] | | | | | | [address] | | | | + + + [...] | | | Fingerstick | performed at [facility];[address] | | LAB | | | | [address];[place], [place] | | | | | | [address] | | | | + + + [...] | | | Fingerstick | performed at [facility];[address] | | LAB | | | | [address];[place], [place] | | | | | | [address] | | | | + + + [...] | | | Fingerstick | performed at [facility];[address] | | LAB | | | | [address];[place] | | | | | | [address] | | | | + + + [...] | | | | | [place] [address] | | | | + + + [...] | | | | | performed at [facility], [address] | | | | | | [facility], | | | | | | [place] [address] | | | | + + + [...] | | | Fingerstick | performed at [facility];[address] | | LAB | | | | [address];[place] | | | | | | [address] | | | | + + + [...] | | | Fingerstick | performed at [facility];[address] | | LAB | | | | [address];[place], [place] | | | | | | [address] | | | | + + + [...] | | | Fingerstick | performed at [facility];[address] | | LAB | | | | [address];[place], [place] | | | | | | [address] | | | | + + + [...] | | | Fingerstick | performed at [facility];[address] | | LAB | | | | [address];[place] | | | | | | [address] | | | | + + + [...] | | | | | performed at [facility], [address] | | | | | | [facility], | | | | | | [place] [address] | | | | + + + [...] | | | Fingerstick | performed at [facility];[address] | | LAB | | | | [address];[place] | | | | | | [address] | | | | + + + [...] | | | Fingerstick | performed at [facility];[address] | | LAB | | | | [address];[place], [place] | | | | | | [address] | | | | + + + [...] | | | Fingerstick | performed at [facility];[address] | | LAB | | | | [address];[place], [place] | | | | | | [address] | | | | + + + [...] | | | Fingerstick | performed at [facility];[address] | | LAB | | | | [address];[place] | | | | | | [address] | | | | + + + [...] + + | Hemoglobin | 5.4Comment: The Haitian | 4.0 - 6.0 % | EXTERNAL [...] | | | | | performed at [facility], [address] | | | | | | [facility], | | | | | | [place] [address] | | | | + + + [...] | | | Fingerstick | performed at [facility];[address] | | LAB | | | | [address];[place], [place] | | | | | | [address] | | | | + + + [...] | | | Fingerstick | performed at [facility];[address] | | LAB | | | | [address];[place], [place] | | | | | | [address] | | | | + + + [...] | | | Fingerstick | performed at [facility];[address] | | LAB | | | | [address];[place], [place] | | | | | | [address] | | | | + + + [...] | | | Basophils | performed at [facility], [address] | K/uL | LAB | | | | [address], | | | | | | [place] [address] | | | | + + + [...] EXTERNAL | | | | performed at [facility], [address] | uIU/mL | LAB | | | | [address], | | | | | | [place] [address] | | | | + + + [...] EXTERNAL | | | | performed at [facility];[address] | mmol/L | LAB | | | | [address];[place], [place] | | | | | | [address] | | | | + + + [...] EXTERNAL | | | | performed at [facility];[address] | | LAB | | | | [facility];[place], [place] | | | | | | [address] | | | | + + + [...] | | | | | performed at [facility], [address] | | | | | | [facility], | | | | | | [place] [address] | | | | + + + [...]
--- OUTSIDE RECORDS SUMMARY | ~2019-05-12 | XMS | Encounter Summary ---
Demographics + + + | Address | [address] | | | [place] [address] | + + + | Home Phone | | + + + | Preferred Language | Unknown | + + + | Marital Status | Unknown | + + + | Synagogue Affiliation | Unknown | + + + | Race | Unknown | + + + | Ethnic Group | Unknown | + + + Author + + + | Author | [facility] | + + + | Organization | [facility] | + + + | Address | Unknown | + + + | Phone | Unavailable | + + + Care Team Providers + +------+ + | Care Piping Manager Name | Role | Phone | [...] | | | | | Center | [place] | | | | | | [place], [place] | [place], [place] | | | | | | [address] | [address] | | | | | | Phone: | Phone: | | | | | | [phone] | [phone] | | | | | | Fax: | Fax: | | | | | | [phone] | [phone] | +--------+--------+ + + + + Encounter Details +--------+ + + + + | Date | Type | Department | Care Team | Description | +--------+ + + + + | 07/25/ | Outside | Neurophysiology | Anna Draper, | | | 2012 | Referral | EEG at [facility] [address] | [place] | | | | Order | [address] | [facility] [address] [facility] | | | | | Mailcode: CR120 | [address] [place], | | | | | [facility] | [place] [address] | | | | | [place], [place] | [phone] | | | | | [address] | | | | | | [phone] | | | +--------+ + + + [...] 1940 Medical | | | Record Number: [id number] Date of Test: 07/24/2012 Place of | | | Service: [facility] Department: EEG [facility] - [id number] | | | ROUTINE EEG Indication: evaluate [...] daily Nitrostat 0.4 mg PRN chest pain [place] | | | 7.5/325 mg twice daily [...] was performed at . | | | [facility]. EEG Description Interictal Record: The | [...] | | | MD VIRY. Suggested CPT: 79088 - EEG Routine Awake Only | | | Suggested Dx: 348.30 - Encephalopathy, Unspecified | | + + + documented in this encounter Visit Diagnoses Not on filedocumented in this encounter"
--- OUTSIDE RECORDS SUMMARY | ~2019-05-12 | XMS | Encounter Summary ---
Demographics + + + | Address | [address] | | | [place] [address] | + + + | Home Phone [...] [place], | | | | | [place] [address] | | + + + + + | Kellen Briones | ECON | [place], [place] | | | | | [address] | | + + + + + Care Team Providers + +------+ + | Care Blasting Coal Miner Name | Role | Phone | + [...] + | 11/05/ | Telephone | [facility] | Irving Becerril, | Imaging Only | | 2017 | | NEUROSURGERY [address] | DO [address] | | | | | [address] | [address] [place], [place] | | | | | [place], [place] | [id number] | | | | | [address] | | | | | | [phone] | | | +--------+ + + + [...] | | | | | | [place] [address] | | | | | | [phone] | | | | | | | | +--------+---------+ + + + | 07/30/ | Office | Cardiology | Agata Tinajero DO | | | 2019 | Visit | | [address] | | | | | | [place] | | | | | | [address] | | | | | | | | +--------+---------+ + + + documented as of this encounter Visit Diagnoses Not on filedocumented in this encounter"
--- OUTSIDE RECORDS SUMMARY | ~2019-05-12 | XMS | Encounter Summary ---
Demographics + + + | Address | [address] | | | [place] [address] | + + + | Home Phone [...] [place], | | | | | [place] [address] | | + + + + + | Kellen Briones | ECON | [place], [place] | | | | | [address] | | + + + + + [...] + + | 05/20/ | Office | [facility] | Tk Ann | Lumbar radiculopathy | | 2013 | Visit | PHYSIATRY [address] | TMD [address] | (Primary Dx); DDD | | | | [place], | [place] | (degenerative disc | | | | [place] [address] | [phone] | disease), lumbar; | | | | [phone] | | Facet arthritis of | | [...] with | | | | | | qtflsaxdqsuvk-S9-T6 | | | | | | level [...] of the procedure you must provide a laundry route driver to take you home. For all [...] spinal stenosis. Her last injection was in [facility] of this year. She reports that [...] and narcotic medications use; she currently uses [place], Flexeril and ga bapentin. Patient's medications, allergies, [...] has no apparent deficits with short or keno terminal operator memory. She has appropriate fund [...] | 2019 | Visit | | [address] | | | | | | [place], | | | | | | [place] [address] | | | | | | [phone] | | | | | | | | +--------+---------+ + + + | 07/30/ | Office | Cardiology | Agata Tinajero DO | | 2019 | Visit | | [address] | | | | | | [facility] | | | | | | [address] | | | | | | | [...] ICD-9 Code 724.4 Clementine [place] | [facility] | | Annabella presents to the fluoroscopy suite for fluoroscopically-guided [facility] | | bilateral L5-S1 transforaminal epidural [...] | Epidural Steroid InjectionsDiagnosis: Lumbar radiculopathyICD-9 Code 724.4Drbyan Phoenix | | Annabella presents to the [...] | + + + + + | [facility] | [address] | [place] | [phone] | | [facility] | | [address] | | | - IMAGING | | [...] | Spinal stenosis of lumbar region with dlyphwznutqst-D6-F9 level moderately severe | | Spinal stenosis, lumbar region, without neurogenic claudication | + + documented in this encounter
--- OUTSIDE RECORDS SUMMARY | ~2019-05-12 | XMS | Encounter Summary ---
Demographics + + + | Address | [address] | | | [place] [address] | + + + | Home Phone [...] [place], | | | | | [place] [address] | | + + + + + | Kellen Briones | ECON | [place], [place] | | | | | [address] | | + + + + + Care Team Providers + +------+ + | Care Draw Furnace Tender Name | Role | Phone [...] | CONVERSION [address] | | Episd ([facility]) | | | | [address] | | | | 07/14/ | | [place] | | | | 2009 | | [address] | | | | | | [phone] | | | +--------+ + + + [...] | 2018 | Visit | | [address] | | | | | | [place] | | | | | | [place] [address] | | | | | | [phone] | | | | | | | | +--------+---------+ + + + | 07/30/ | Office | Cardiology | Agata Tinajero DO | | | 2019 | Visit | | [address] | | | | | | [place] | | | | | | [phone] | | | | | | | [...] Performed At | + + + | [facility] | | | [facility] [address] | | | , | | | [id number]/RADIOLOGY Patient Name: CLEMENTINE NUNEZ Date of : | | | 1940 Medical Record: [id number] Account: [id number] | | | I/P/CU 68418/ Exam Date/Time: 07/12/2009 | | | 05:00 [...] good position in the SVC. The prior Elba-Gideon catheter | | | has been removed. [...] 11:16 P | | | P P SLW/dc/[id number]/ | | | cc: MD ANUJ PERLA MD STEVEN L | | | MD MARYANN | | + + + + + | Procedure Note | + + | Nilay Lawrence Conversion - 01/25/2019 5:24 PM PDT | | [facility] | | [facility] [address] | | , | | | | [id number]/RADIOLOGY | | | | Patient Name: CLEMENTINE NUNEZ | | Date of : 1940 | | Medical Record: [id number] | | Account: [id number] | | I/P/CU 66922/ | | | | | | Exam [...] in the SVC. | | The prior Elba-Gideon catheter has been removed. No obvious mediastinal [...] | P | | P | | GLENDY/imtiaz/[id number]/ | | cc: ROSALVA LOZADA MD | | ANUJ GALLEGO MD | | ARAVIND WOLF MD | + + XR Chest 1 Vw (07/10/2009 5:33 AM PST) + + | Specimen | + + | | + + + + + | Narrative | Performed At | + + + | [facility] | | | [facility] [address] | | | , | | | [id number]/RADIOLOGY Patient Name: CLEMENTINE NUNEZ Date of : | | | 1940 Medical Record: [id number] Account: [id number] | | | [place] [id number]/ Exam Date/Time: 07/10/2009 | | | 05:00 [...] 09:49 A | | | A A CHARMAINE/britni/[id number]/ | | | cc: MD FAISAL PERLA MD SAAD | | | MD CHRIS | | + + + + + | Procedure Note | + + | Nilay Lawrence Conversion - 01/25/2019 5:24 PM PDT | | [facility] | | [facility] [address] | | , | | | | [id number]/RADIOLOGY | | | | Patient Name: CLEMENTINE NUNEZ | | Date of : 1940 | | Medical Record: [id number] | | Account: [id number] | | I/P/ 05210/ | | | | | | Exam [...] | A | | A | | [facility]//[id number]/ | | cc: ROSALVA LOZADA MD | | FAISAL RUELAS MD | | ANUJ GALLEGO MD | + + XR Chest 1 Vw (07/09/2009 12:25 PM PST) + + | Specimen | + + | | + + + + + | Narrative | Performed At | + + + | [facility] | | | [facility] [address] | | | , | | | [id number]/RADIOLOGY Patient Name: CLEMENTINE NUNEZ Date of : | | | 1940 Medical Record: [id number] Account: [id number] | | | I/P/[facility] / Exam Date/Time: 07/09/2009 | | | [...] | overlying the stomach. A right sided Elba-Gideon catheter is seen with | | | [...] 3 cm. 2. Right sided central line, Elba-Gideon | | | catheter, left sided chest [...] P P | | | 05:09 P /[facility]/[id number]/ cc: MD VERONICA PERLA | | | DO ANUJ LOPEZ MD | | + + + + + | Procedure Note | + + | Nilay Lawrence Conversion - 01/25/2019 5:24 PM PDT | | [facility] | | [facility] [address] | | , | | | | [id number]/RADIOLOGY | | | | Patient Name: CLEMENTINE NUNEZ | | Date of : 1940 | | Medical Record: [id number] | | Account: [id number] | | I/P/ALFREDO / | | | [...] the stomach. A right | | sided Elba-Gideon catheter is seen with its tip in [...] | | 2. Right sided central line, Elba-Gideon catheter, left sided chest tube | | [...] | P | | P | | EI/sandra/[id number]/ | | cc: ROSALVA LOZADA MD | [...] that was | | | non-reportable in legRadiojar system. | | + + + + + | Procedure Note | + + | Nilay Lawrence Conversion - 01/25/2019 5:24 PM PDT See medical record for report. This is | | a converted record that was non-reportable in cVidya system. | + + XR Chest 2 Vws (07/08/2009 12:33 PM PST) + + | Specimen | + + | | + + + + + | Narrative | Performed At | + + + | [facility] | | | [facility] [address] | | | , | | | [id number]/RADIOLOGY Patient Name: CLEMENTINE NUNEZ Date of : | | | 1940 Medical Record: [id number] Account: [id number] | | | I/P/MADIHA [address]/ Exam Date/Time: 07/08/2009 | | | 11:50 [...] 08:59 A | | | P A SCK/dj/[id number]/ | | | cc: JIM SANCHEZ MD | | | ANUJ GALLEGO MD | | + + + + + | Procedure Note | + + | Nilay Lawrence - 01/25/2019 5:24 PM PDT | | [facility] | | [facility] [address] | | , | | | | [id number]/RADIOLOGY | | | | Patient Name: CLEMENTINE NUNEZ | | Date of : 1940 | | Medical Record: [id number] | | Account: [id number] | | I/P/CU 92577/ | | | | | | Exam [...] | P | | A | | AZK/dj/[id number]/ | | cc: JIM SANCHEZ | | MARCIA MOTLEY MD | | ANUJ GALLEGO MD | + + ECHO Complete (07/07/2009 2:30 PM PST) + + | Specimen | + + | | + + + + + | Narrative | Performed At | + + + | [id number] | | | Page 1 ECHO [facility] NAME: | | | [place] [address] MEDICAL RECORD #: | | | [id number] | | | DATE OF : 1940 ORDER | | | NUMBER: [id number] EXAM DATE/TIME: 07/07/2009 13:49 PERFORMING | | [...] 56.72 ml D-E Excursion: 1.44 cm E-F Hendry: 0.04 | | | m/s EPSS: 0.76 [...] TV A Obed: 0.65 m/s TV Dec Hendry: 1.90 m/s2 TV Dec Time: | | | 260.30 ms TV E Obed: 0.49 m/s TV E/A Ratio: 0.75 | | | Mill Tender Washing: EZEKIEL Authenticated by: Anuj Gallego MD Report Date/Time: | | | 07-08-2009 08:56:44 | | + + + + + | Procedure Note | + + | Nilay Lawrence - 01/25/2019 5:24 PM PDT [id number] | | Page [address] [place] [address] NAME: MAYRA A[place] RODRIGUEZ | | [address] : ACCOUNT #: | | [id number]: DATE OF : 2ORDER NUMBER: | | [id number] DATE/TIME: 07/07/2009 13:49PERFORMING PHYSICIAN: Anuj Gallego MDORDER [...] mlLAESV Index (A-L): 19.90 ml/m2LAAs A2C: 16.02 [id number] A-L | | A2C: 39.78 mlLALs A2C: 5.48 cmLAAs A4C: 13.91 [id number] A-L A4C: 30.58 mlLALs | | A4C: 5.37 cmAo Diam: 2.60 cmAV Cusp: 1.30 cmLA Diam: 3.63 cmLA/Ao: 1.39%FS: | | 37.5 %EDV(Teich): 83.61 mlEF(Teich): 67.83 %ESV(Teich): 26.89 mlIVSd: 1.04 | | cmIVSs: 1.27 cmLVIDd: 4.31 cmLVIDs: 2.69 cmLVPWd: 1.04 cmLVPWs: 1.27 | | cmSV(Teich): 56.72 mlD-E Excursion: 1.44 cmE-F Hendry: 0.04 m/sEPSS: 0.76 cmIVC | | diameter: 1.27 cmIVC collapse: 0.31 cmIVC % collapse: 73.72 %HR: 81.96 BPMAV | | maxP.03 mmHgAV meanP.44 mmHgAV Vmax: 1.50 m/Shreyas Vmean: 0.99 m/Shreyas VTI: | | 26.02 cmAVA Vmax: 1.39 cm2AVA (VTI): 1.60 va0XRYY Dopp: 1.83 l/vqmy6MWUV Dopp: | | 3.25 l/minHR: 78.02 BPMLVOT [...] A Obed: | | 0.65 m/sTV Dec Hendry: 1.90 m/s2TV Dec Time: 260.30 msTV E Obed: 0.49 m/sTV E/A | | Ratio: 0.75 Mill Tender Washing: MIKAuthenticated by: Anuj JOHNSONeport Date/Time: | | [...] | |D-E Excursion: 1.44 cm | |E-F Hendry: 0.04 m/s | |EPSS: 0.76 cm | [...] A Obed: 0.65 m/s | |TV Dec Hendry: 1.90 m/s2 | |TV Dec Time: 260.30 ms | |TV E Obed: 0.49 m/s | |TV E/A Ratio: 0.75 | | | |Mill Tender Washing: EZEKIEL | |Authenticated by: Anuj Gallego MD | |Report Date/Time: 07-08-2009 08:56:44 | + + US Veins Extremiity Bilateral (07/07/2009 2:10 PM PST) + + | Specimen | + + | | + + + + + | Narrative | Performed At | + + + | [facility] | | | [facility] [address] | | | , | | | [id number]/RADIOLOGY Patient Name: CLEMENTINE NUNEZ Date of : | | | 1940 Medical Record: [id number] Account: [id number] | | | I/P/MADIHA 875[address]/ Exam Date/Time: 07/07/2009 | | | 08:00 [...] 09:58 P P | | | P SCK/gracie/[id number]/ cc: MRACIA MOTLEY MD | | | ANUJ GALLEGO MD | | + + + + + | Procedure Note | + + | Nilay Lawrence Conversion - 01/25/2019 5:24 PM PDT | | [facility] | | [facility] [address] | | , | | | | [id number]/RADIOLOGY | | | | Patient Name: CLEMENTINE NUNEZ | | Date of : 1940 | | Medical Record: [id number] | | Account: [id number] | | I/P/CU 07185/ | | | | | | Exam [...] | P | | P | | CASIMIRO/gracie/[id number]/ | | cc: MARCIA MOTLEY MD | | ANUJ GALLEGO MD | + + VAS Carotid Duplex Bilateral (07/07/2009 2:01 PM PST) + + | Specimen | + + | | + + + + + | Narrative | Performed At | + + + | [facility] | | | [facility] [address] | | | , | | | [id number]/RADIOLOGY Patient Name: CLEMENTINE NUNEZ Date of : | | | 1940 Medical Record: [id number] Account: [id number] | | | I/P/ 72439/ Exam Date/Time: 07/07/2009 | | | 08:00 [...] P P | | | 02:33 P AZChi/gracie/[id number]/ cc: MD ANUJ TEMPLETON | | | MD CHRIS | | + + + + + | Procedure Note | + + | Nilay Lawrence - 01/25/2019 5:24 PM PDT | | [facility] | | [facility] [address] | | , | | | | [id number]/RADIOLOGY | | | | Patient Name: CLEMENTINE NUNEZ | | Date of : 1940 | | Medical Record: [id number] | | Account: [id number] | | I/P/ 71753/ | | | | | | Exam [...] | P | | P | | [facility]/silke/[id number]/ | | cc: MARCIA MOTLEY MD | | ANUJ GALLEGO MD | + + CV CARDIAC PROCEDURE (07/06/2009 4:45 PM PST) + + | Specimen | + + | | + + + + + | Narrative | Performed At | + + + | [facility] | | | [facility] [address] | | | , | | | [id number]/CARDIOLOGY Patient Name: CLEMENTINE NUNEZ Date of : | | | 1940 Medical Record: [id number] Account: [id number] | | | Rajiv/Brendon/MADIHA [address]/ Exam Date/Time: 07/06/2009 | | | 03:41 [...] for possible closure device deployment. 5. A 6-Haitian Mynx | | | closure device deployment at the right arteriotomy site. | | | INDICATIONS The patient is a very pleasant 69-year-old lady | | | who was recently admitted at [facility] after an episode | | | of chest pain. The patient was ruled out for a myocardial infarction | | | and discharged and subsequently was advised to have a stress test at | | | [facility] which was significantly abnormal, | | [...] with 1% | | | lidocaine. A 6-Haitian vascular sheath was inserted in the right [...] was pulled, and | | | a 6-Haitian Mynx closure device was deployed at the [...] | segment and was filling distally via ayfs-ut-uonkx collaterals. | | | LEFT VENTRICULOGRAM Left [...] A | | | 09:51 P A /yoana/[id number]/ cc: CHING Sevilla | | | MD ANUJ DAI MD | | + + + + + | Procedure Note | + + | Nilay Lawrence Conversion - 01/25/2019 5:24 PM PDT | | [facility] | | [facility] [address] | | , | | | | [id number]/CARDIOLOGY | | | | Patient Name: CLEMENTINE NUNEZ | | Date of : 1940 | | Medical Record: [id number] | | Account: [id number] | | I/P/ 50320/ | | | | | | Exam [...] closure device deployment. | | 5. A 6-Haitian Mynx closure device deployment at the right arteriotomy | | site. | | | | INDICATIONS | | The patient is a very pleasant 69-year-old lady who was | | recently admitted at [facility] after an episode of chest | | pain. The patient was ruled out for a myocardial infarction and | | discharged and subsequently was advised to have a stress test at [facility] | | [facility] which was significantly abnormal, revealing | [...] groin | | with 1% lidocaine. A 6-Haitian vascular sheath was inserted in the right [...] sheath. The sheath was pulled, and a 6-Haitian Mynx closure device was | | deployed [...] | segment and was filling distally via iorr-dv-emwxo collaterals. | | | | LEFT VENTRICULOGRAM [...] | P | | A | | /yoana/[id number]/ | | cc: CHING DAI MD | | ANUJ GALLEGO MD | + + documented in this encounter Visit Diagnoses + + | Diagnosis | + + | Acute myocardial infarction, subendocardial infarction, initial episode of care (HCC) | | Acute myocardial infarction, subendocardial infarction, initial episode of care | + + documented in this encounter"
--- OUTSIDE RECORDS SUMMARY | ~2019-05-12 | XMS | Encounter Summary ---
Demographics + + + | Address | [address] | | | [place] [address] | + + + | Home Phone [...] [place], | | | | | [place] [address] | | + + + + + | Kellen Briones | ECON | [place], [place] | | | | | [address] | | + + + + + Care Team Providers + +------+ + | Care Hogshead Cooper Name | Role | Phone | + [...] + + | 01/07/ | Telephone | [facility] | Tk Ann | Injections | | 2012 | | ORTHOPEDIC SURGERY | MD Jocelin [address] | | | | | [address] [place] [address] | [place], [place] | | | | | [place], [place] | [address] | | | | | [address] | | | | | | [phone] | | | +--------+ + + + [...] | | | | | | [place] [address] | | | | | | [phone] | | | | | | | | +--------+---------+ + + + | 07/30/ | Office | Cardiology | Agata Tinajero DO | | | 2019 | Visit | | [address] | | | | | | [place] | | | | | | [address] | | | | | | | | +--------+---------+ + + + documented as of this encounter Visit Diagnoses Not on filedocumented in this encounter"
--- OUTSIDE RECORDS SUMMARY | ~2019-05-12 | XMS | Encounter Summary ---
Demographics + + + | Address | [address] | | | [place] [address] | + + + | Home Phone | | + + + | Preferred Language | Unknown | + + + | Marital Status | Unknown | + + + | Gnosticist Affiliation | Unknown | + + + | Race | Unknown | + + + | Ethnic Group | Unknown | + + + Author + + + | Author | [facility] | + + + | Organization | [facility] | + + + | Address | Unknown | + + + | Phone | Unavailable | + + + Care Team Providers + +------+ + | Care Air Press Operator Name | Role | Phone [...] [address] | | | | | | [place], [place] | | | | | | [address] | | | +--------+ + + + [...]
--- OUTSIDE RECORDS SUMMARY | ~2019-05-12 | XMS | Clinical Summary ---
Demographics + + + | Address | [address] | | | [place] [address] | + + + | Home Phone [...] Team Providers + +------+ + | Care Wrapper Stitcher Name | Role | Phone | + +------+ + PCP | Unavailable | + +------+ + Source Comments HOLLY is fully live on both [facility] Ambulatory and [facility] InPatient.[facility] Allergies Not on File Medications [...]
--- OUTSIDE RECORDS SUMMARY | ~2019-05-12 | XMS | Encounter Summary ---
Demographics + + + | Address | [address] | | | [place] [address] | + + + | Home Phone [...] [place], | | | | | [place] [address] | | + + + + + | Kellen Briones | ECON | [place], [place] | | | | | [address] | | + + + + + Care Team Providers + +------+ + | Care Piece Worker Name | Role | Phone | [...] + + | 03/07/ | Telephone | [facility] | Irving Becerril, | Other (Pre op meds | | 2016 | | NEUROSURGERY [address] | DO [address] | to stop) | | | | [address] | [address] [place], [place] | | | | | [place], [place] | [id number] | | | | | [address] | | | | | | [phone] | | | +--------+ + + + [...] | | | | | | [place] [address] | | | | | | [phone] | | | | | | | | +--------+---------+ + + + | 07/30/ | Office | Cardiology | Agata Tinajero DO | | | 2019 | Visit | | [address] | | | | | | [place] | | | | | | [address] | | | | | | | | +--------+---------+ + + + documented as of this encounter Visit Diagnoses Not on filedocumented in this encounter"
--- OUTSIDE RECORDS SUMMARY | ~2019-05-12 | XMS | Encounter Summary ---
Demographics + + + | Address | [address] | | | [place] [address] | + + + | Home Phone [...] [place], | | | | | [place] [address] | | + + + + + | Kellen Briones | ECON | [place] | | | | | [address] | | + + + + + Care Team Providers + +------+ + | Care Fur Repair Inspector Name | Role | Phone | + +------+ + | Barb Marte | THANG | | + +------+ + Encounter Details +--------+ + + + + | Date | Type | Department | Care Team | Description | +--------+ + + + + | 11/05/ | Hospital | [facility] | Irving Becerril, | Status post cervical | | 2018 | Encounter | MED CTR XRAY [address] | DO [address] | spinal fusion | | | | [place] | [address] | | | | | [place] [address] | [address] | | | | | [phone] | | | +--------+ + + + [...] | | | | | | [place] [address] | | | | | | [phone] | | | | | | | | +--------+---------+ + + + | 07/30/ | Office | Cardiology | Agata Tinajero DO | | | 2019 | Visit | | [address] | | | | | | [place] | | | | | | [address] | | | | | | | [...]
--- OUTSIDE RECORDS SUMMARY | ~2019-05-12 | XMS | Encounter Summary ---
Demographics + + + | Address | [address] | | | [place] [address] | + + + | Home Phone [...] [place], | | | | | [place] [address] | | + + + + + | Kellen Briones | ECON | [place], [place] | | | | | [address] | | + + + + + Care Team Providers + +------+ + | Care Chuck Wagon Driver Name | Role | Phone | [...] + + | 05/02/ | Telephone | [facility] | Irving Becerril, | Paperwork | | 2016 | | NEUROSURGERY [address] | DO [address] | | | | | [address] | [address] [place], [place] | | | | | [place], [place] | [id number] | | | | | [address] | | | | | | [phone] | | | +--------+ + + + [...] | | | | | | [place] [address] | | | | | | [phone] | | | | | | | | +--------+---------+ + + + | 07/30/ | Office | Cardiology | Agata Tinajero DO | | | 2019 | Visit | | [address] | | | | | | [place] | | | | | | [address] | | | | | | | | +--------+---------+ + + + documented as of this encounter Visit Diagnoses Not on filedocumented in this encounter"
--- OUTSIDE RECORDS SUMMARY | ~2019-05-12 | XMS | Encounter Summary ---
Demographics + + + | Address | [address] | | | [place] [address] | + + + | Home Phone | | + + + | Preferred Language | Unknown | + + + | Marital Status | Unknown | + + + | Congregation Affiliation | Unknown | + + + [...] Team Providers + +------+ + | Care Hem Marker Name | Role | Phone | + [...] | | | | | Center | [place] | | | | | | [place], [place] | [place], [place] | | | | | | [address] | [address] | | | | | | Phone: | Phone: | | | | | | [phone] | [phone] | | | | | | Fax: | Fax: | | | | | | [phone] | [phone] | +--------+--------+ + + + + Encounter Details +--------+ + + + + | Date | Type | Department | Care Team | Description | +--------+ + + + + | 07/25/ | Outside | Neurophysiology | Anna Draper, | | | 2012 | Referral | EEG at [facility] [address] | [place] | | | | Order | [address] | [facility] [address] | | | | | Mailcode: CR120 | [address] [place], | | | | | [facility] | [place] [address] | | | | | [place], [place] | [phone] | | | | | [address] | | | | | | [phone] | | | +--------+ + + + [...] 1940 Medical | | | Record Number: [id number] Date of Test: 07/24/2012 Place of | | | Service: [facility] Department: EEG [facility] - [id number] | | | ROUTINE EEG Indication: evaluate [...] daily Nitrostat 0.4 mg PRN chest pain Gifford | | | 7.5/325 mg twice daily [...] was performed at . | | | [facility]. EEG Description Interictal Record: The [...] Electronically signed AIMEE | | | MD VRIY. Suggested CPT: 98325 - EEG Routine Awake Only | | | Suggested Dx: 348.30 - Encephalopathy, Unspecified | | + + + documented in this encounter Visit Diagnoses Not on filedocumented in this encounter"
--- OUTSIDE RECORDS SUMMARY | ~2019-05-12 | XMS | Encounter Summary ---
Demographics + + + | Address | [address] | | | [place] [address] | + + + | Home Phone [...] [place], | | | | | [place] [address] | | + + + + + | Kellen Briones | ECON | [place], [place] | | | | | [address] | | + + + + + Care Team Providers + +------+ + | Care Crime Analyst Name | Role | Phone | [...] + + | 01/07/ | Telephone | [facility] | Tk Ann | Injections | | 2012 | | ORTHOPEDIC SURGERY | MD Jocelin [address] | | | | | [address] [place] [address] | [place], [place] | | | | | [place], [place] | [address] | | | | | [address] | | | | | | [phone] | | | +--------+ + + + [...] | | | | | | [place] [address] | | | | | | [phone] | | | | | | | | +--------+---------+ + + + | 07/30/ | Office | Cardiology | Agata Tinajero DO | | | 2019 | Visit | | [address] | | | | | | [place] | | | | | | [address] | | | | | | | | +--------+---------+ + + + documented as of this encounter Visit Diagnoses Not on filedocumented in this encounter"
--- OUTSIDE RECORDS SUMMARY | ~2019-05-12 | XMS | Encounter Summary ---
Demographics + + + | Address | [address] | | | [place] [address] | + + + | Home Phone [...] [place], | | | | | [place] [address] | | + + + + + | Kellen Briones | ECON | [place], [place] | | | | | [address] | | + + + + + Care Team Providers + +------+ + | Care Metal Milling Machine Operator Name | Role | Phone [...] + + | 05/02/ | Telephone | [facility] | Irving Becerril, | Paperwork | | 2016 | | NEUROSURGERY [address] | DO [address] | | | | | [address] | [address] [place], [place] | | | | | [place], [place] | [id number] | | | | | [address] | | | | | | [phone] | | | +--------+ + + + [...] | | | | | | [place] [address] | | | | | | [phone] | | | | | | | | +--------+---------+ + + + | 07/30/ | Office | Cardiology | Agata Tinajero DO | | | 2019 | Visit | | [address] | | | | | | [place] | | | | | | [address] | | | | | | | | +--------+---------+ + + + documented as of this encounter Visit Diagnoses Not on filedocumented in this encounter"
--- OUTSIDE RECORDS SUMMARY | ~2019-05-12 | XMS | Encounter Summary ---
Demographics + + + | Address | [address] | | | [place] [address] | + + + | Home Phone [...] [place], | | | | | [place] [address] | | + + + + + | Kellen Briones | ECON | [place], [place] | | | | | [address] | | + + + + + Care Team Providers + +------+ + | Care Organ Teacher Name | Role | Phone | + +------+ + | Anna De Guzman PA-C | PCP | | + +------+ + Encounter Details +--------+ + + + + | Date | Type | Department | Care Team | Description | +--------+ + + + + | 09/30/ | Hospital | [facility] | Pippa, | DDD (degenerative | | 2015 | Encounter | MED CTR XRAY [address] | [address] | disc disease), | | | | [place] | [facility], | lumbar; Spinal | | | | [place] [address] | [place] [address] | stenosis of lumbar | | | | [phone] | [phone] | region with | | | | | | ettokzwnrawck-H1-B5 | | | | | Family Resource Management ProfessorJordan | level moderately | | | | [...] | | | | | | [place] [address] | | | | | | [phone] | | | | | | | | +--------+---------+ + + + | 07/30/ | Office | Cardiology | Agata Tinajero DO | | | 2019 | Visit | | [address] | | | | | | [place] | | | | | | [address] | | | | | | | [...] with | | | | | | cozvbijbzurix-L7-M9 | | | | | | level [...] radiculopathy ICD-9 Code 724.4 Clementine Phoenix | [facility] | | Annabella presents to the fluoroscopy suite for fluoroscopically-guided [facility] | | bilateral L5-S1 transforaminal [...] Performing | Address | City[facility] | Phone Number | | Organization | | | | + + + + + | [address] | [place] | [place] | [phone] | | [facility] | | [address] | | | - IMAGING | | | | + + + + + documented in this encounter Visit Diagnoses + + | Diagnosis | + + | DDD (degenerative disc disease), lumbar Degeneration of lumbar or lumbosacral | | intervertebral disc | + + | Spinal stenosis of lumbar region with vrehcuhumdqik-I3-C5 level moderately severe | | Spinal stenosis, [...] | | | First dose on [facility] 09/30/14 at | | | | [...] PM PDT | | | | | [facility] 09/30/14 at 1448, For 1 dose, [...]
--- OUTSIDE RECORDS SUMMARY | ~2019-05-12 | XMS | Encounter Summary ---
Demographics + + + | Address | [address] | | | [place] [address] | + + + | Home Phone [...] [place], | | | | | [place] [address] | | + + + + + | Kellen Briones | ECON | [place], [place] | | | | | [address] | | + + + + + Care Team Providers + +------+ + | Care Juvenile Correctional Officer Name | Role | Phone | [...] + + | 03/19/ | Telephone | [facility] | Tk Ann | Appointment | | 2012 | | PHYSIATRY [address] | T, [address] | | | | | [place], | [place], [place] | | | | | [place] [address] | [address] | | | | | [phone] | | | +--------+ + + + [...] | | | | | | [place] [address] | | | | | | [phone] | | | | | | | | +--------+---------+ + + + | 07/30/ | Office | Cardiology | Agata Tinajero DO | | | 2019 | Visit | | [address] | | | | | | [place] | | | | | | [address] | | | | | | | | +--------+---------+ + + + documented as of this encounter Visit Diagnoses Not on filedocumented in this encounter"
--- OUTSIDE RECORDS SUMMARY | ~2019-05-12 | XMS | Encounter Summary ---
Demographics + + + | Address | [address] | | | [place] [address] | + + + | Home Phone [...] [place], | | | | | [place] [address] | | + + + + + | Kellen Briones | ECON | [place], [place] | | | | | [address] | | + + + + + Care Team Providers + +------+ + | Care Supervisor Landscape Name | Role | Phone | [...] + + | 11/04/ | Office | [facility] | Patrick Gaffney MD [address] | Transient loss of | | 2012 | Visit | [facility] | [address] | consciousness | | | | [address] [facility], | [address] [place], | (Primary Dx) | | | | [address] [place] | [place] [address] | | | | | [place] [address] | [phone] | | | | | [phone] | | | +--------+---------+ + + + [...] early in the afternoon. She saw Dr. rGier, who f elt she might have sleep [...] Nancy Rust RN - 09/2012 1:28 PM [id number]: BP recheck 110/70. documented in this e [...] | | | | | | [place] [address] | | | | | | [phone] | | | | | | | | +--------+---------+ + + + | 07/30/ | Office | Cardiology | Agata Tinajero DO | | | 2019 | Visit | | [address] | | | | | | [place] | | | | | | [address] | | | | | | | | +--------+---------+ + + + documented as of this encounter Visit Diagnoses + + | Diagnosis | + + | Transient loss of consciousness - Primary Syncope and collapse | + + documented in this encounter"
--- OUTSIDE RECORDS SUMMARY | ~2019-05-12 | XMS | Encounter Summary ---
Demographics + + + | Address | [address] | | | [place] [address] | + + + | Home Phone [...] [place], | | | | | [place] [address] | | + + + + + | Kellen Briones | ECON | [place], [place] | | | | | [address] | | + + + + + Care Team Providers + +------+ + | Care Fresco Artist Name | Role | Phone | + [...] SANDR[address] | FMD [address] | | | | | [address] | [place], [place] | | | | | [place], [place] | [address] | | | | | [address] | [phone] | | | | | [phone] | | | +--------+ + + + [...] | 2019 | Visit | | [address] | | | | | | [place], | | | | | | [place] [address] | | | | | | [phone] | | | | | | | | +--------+---------+ + + + | 07/30/ | Office | Cardiology | Agata Tinajero DO | | | 2019 | Visit | | [address] | | | | | | [place] | | | | | | [address] | | | | | | | | +--------+---------+ + + + documented as of this encounter Visit Diagnoses Not on filedocumented in this encounter"
--- OUTSIDE RECORDS SUMMARY | ~2019-05-12 | XMS | Encounter Summary ---
Demographics + + + | Address | [address] | | | [place] [address] | + + + | Home Phone [...] [place], | | | | | [place] [address] | | + + + + + | Kellen Briones | ECON | [place], [place] | | | | | [address] | | + + + + + Care Team Providers + +------+ + | Care Compliance Specialist Name | Role | Phone | [...] + + | 08/14/ | Telephone | [facility] | Patrick Gaffney MD [address] | Other | | 2012 | | NEUROLOGY [place] | [facility] | | | | | [address] [facility], | [address] [place], | | | | | [address] [facility] | [place] [address] | | | | | [place] [address] | [phone] | | | | | [phone] | | | +--------+ + + + [...] | | | | | | [place] [address] | | | | | | [phone] | | | | | | | | +--------+---------+ + + + | 07/30/ | Office | Cardiology | Agata Tinajero DO | | | 2019 | Visit | | [address] | | | | | | [place] | | | | | | [address] | | | | | | | | +--------+---------+ + + + documented as of this encounter Visit Diagnoses Not on filedocumented in this encounter"
--- OUTSIDE RECORDS SUMMARY | ~2019-05-12 | XMS | Encounter Summary ---
Demographics + + + | Address | [address] | | | [place] [address] | + + + | Home Phone [...] [place], | | | | | [place] [address] | | + + + + + | Kellen Briones | ECON | [place], [place] | | | | | [address] | | + + + + + [...] + + | 05/17/ | Hospital | [facility] | Irving Becerril, | Status post cervical | | 2016 | Encounter | MED CTR XRAY [address] | DO [address] | spinal fusion; | | | | [facility] [place] | [address] [place], [place] | Spondylolisthesis of | | | | [place] [address] | [id number] | cervical region | | | | [phone] | | | +--------+ + + + [...] | | | | | | [place] [address] | | | | | | [phone] | | | | | | | | +--------+---------+ + + + | 07/30/ | Office | Cardiology | Agata Tinajero DO | | | 2019 | Visit | | [address] | | | | | | [place] | | | | | | [address] | | | | | | | [...] + + + + + | [facility] | [address] | [place] | [phone] | | [facility] | | [address] | | | - IMAGING | | | | + + + + + documented in this encounter Visit Diagnoses + + | Diagnosis | + + | Status post cervical spinal fusion Arthrodesis status | + + | Spondylolisthesis of cervical region Acquired spondylolisthesis | + + documented in this encounter"
--- OUTSIDE RECORDS SUMMARY | ~2019-05-12 | XMS | Encounter Summary ---
Demographics + + + | Address | [address] | | | [place] [address] | + + + | Home Phone [...] [place], | | | | | [place] [address] | | + + + + + | Kellen Briones | ECON | [place], [place] | | | | | [address] | | + + + + + Care Team Providers + +------+ + | Care Central Stores Attendant Name | Role | Phone | [...] | | | | | [place], | [place] [address] | | | | | | [place] [address] | Phone: | | | | | | Phone: | [phone] | | | | | | [phone] | Fax: | | | | | | Fax: | [phone] | | | | | | [phone] | | +--------+ + + + + [...] + + | 09/03/ | Office | [facility] | Patrick Gaffney MD [address] | Mental status change | | 2012 | Visit | NEUROLOGY [place] | [address] | (Primary Dx); Sleep | | | | [address] [facility], | [address] [place], | disorder | | | | [address] [place] | [place] [address] | | | | | [place] [address] | [phone] | | | | | [phone] | | | +--------+---------+ + + + [...] Cc: Anna Draper MD documented in this grant hospitalte r Plan of Treatment +--------+---------+ + + + | Date | Type | Specialty | Care Team | Description | +--------+---------+ + + + | 05/14/ | Office | Orthopedic Surgery | Monster White MD | | | 2018 | Visit | | [address] | | | | | | [place] | | | | | | [place] [address] | | | | | | [phone] | | | | | | | | +--------+---------+ + + + | 07/30/ | Office | Cardiology | Agata Tinajero DO | | | 2019 | Visit | | [address] | | | | | | [place] | | | | | | [address] | | | | | | | [...]
--- OUTSIDE RECORDS SUMMARY | ~2019-05-12 | XMS | Encounter Summary ---
Demographics + + + | Address | [address] | | | [place] [address] | + + + | Home Phone [...] [place], | | | | | [place] [address] | | + + + + + | Kellen Briones | ECON | [place], [place] | | | | | [address] | | + + + + + Care Team Providers + +------+ + | Care Computer Numeric Control Setter Name | Role | Phone | [...] + | 06/18/ | Refill | [facility] | Irving Becerril, | Medication Refill | | 2016 | | NEUROSURGERY [address] | DO [address] | | | | | [address] [facility] [address] | [address] [place], [place] | | | | | [place], [place] | [address] | | | | | [address] | | | | | | [phone] | | | +--------+--------+ + + + [...] | | | | | | [place] [address] | | | | | | [phone] | | | | | | | | +--------+---------+ + + + | 07/30/ | Office | Cardiology | Agata Tinajero DO | | | 2019 | Visit | | [address] | | | | | | [place] | | | | | | [address] | | | | | | | | +--------+---------+ + + + documented as of this encounter Visit Diagnoses + + | Diagnosis | + + | S/P cervical spinal fusion - Primary Arthrodesis status | + + documented in this encounter"
--- OUTSIDE RECORDS SUMMARY | ~2019-05-12 | XMS | Encounter Summary ---
Demographics + + + | Address | [address] | | | [place] [address] | + + + | Home Phone [...] [place], | | | | | [place] [address] | | + + + + + | Kellen Briones | ECON | [place], [place] | | | | | [address] | | + + + + + Care Team Providers + +------+ + | Care Depositing Machine Operator Name | Role | Phone [...] | Lumbar | Mar[place], | [address] | | | | | radiculopath | Tk Monreal MD | [place], | | | | | y | [address] | [place] | | | | | Procedures | [place] | [address] | | | | | [place] INJECT | [facility], [place] | Phone: | | | | | ANES/STEROID | [address] | [phone] | | | | | [place] | Phone: | Fax: | | | | | LUMBAR/SACRA | [phone] | [phone] | | | | | [address] IMG | Fax: | | | | | | GUIDE ,1 | [phone] | | | | | | LEVEL [...] + + | 07/05/ | Hospital | [facility] | Bogdathacz, | Lumbar | | 2016 | Encounter | MED CTR XRAY [address] | [address]YA[address] | radiculopathy; | | | | [place] | [facility], | Spinal stenosis of | | | | [place] [address] | [place] [address] | lumbar region with | | | | [phone] | [phone] | jrwxegcouexqe-G8-G1 | | | | | | level moderately | | | | | Residential ManagerJordan | severe | +--------+ + + + [...] | | | | | | [place] [address] | | | | | | [phone] | | | | | | | | +--------+---------+ + + + | 07/30/ | Office | Cardiology | Agata Tinajero DO | | | 2019 | Visit | | [address] | | | | | | [place] | | | | | | [address] | | | | | | | [...] with | | | | | | qugijdwzwxfxc-F9-O6 | | | | | | level [...] radiculopathy ICD-10 Code M54.16 Clementine Phoenix | [facility] | | Annabella presents to the fluoroscopy suite for [facility] | | fluoroscopically-guided bilateral L5-S1 transforaminal [...] [address] | [place] | [phone] | | [facility] | | [address] | | | - IMAGING | | | | + + + + + documented in this encounter Visit Diagnoses + + | Diagnosis | + + | Lumbar radiculopathy Thoracic or lumbosacral neuritis or radiculitis, unspecified | + + | Spinal stenosis of lumbar region with uwiyufdxratnh-B1-Q3 level moderately severe | | Spinal stenosis, [...]
--- OUTSIDE RECORDS SUMMARY | ~2019-05-12 | XMS | Encounter Summary ---
Demographics + + + | Address | [address] | | | [place] [address] | + + + | Home Phone [...] [place], | | | | | [place] [address] | | + + + + + | Kellen Briones | ECON | [place] | | | | | [address] | | + + + + + Care Team Providers + +------+ + | Care Latin Dance Instructor Name | Role | Phone | [...] lumbar (Primary Dx); | | | | [place], [place] | [place] [address] | Lumbar | | | | [address] | [phone] | radiculopathy | | | | [phone] | | | +--------+ + + + [...] | | | | | | [place] [address] | | | | | | [phone] | | | | | | | | +--------+---------+ + + + | 07/30/ | Office | Cardiology | Agata Tinajero DO | | | 2019 | Visit | | [address] | | | | | | [place] | | | | | | [address] | | | | | | | [...]
--- OUTSIDE RECORDS SUMMARY | ~2019-05-12 | XMS | Encounter Summary ---
Demographics + + + | Address | [address] | | | [place] [address] | + + + | Home Phone [...] [place], | | | | | [place] [address] | | + + + + + | Kellen Briones | ECON | [place], [place] | | | | | [address] | | + + + + + Care Team Providers + +------+ + | Care Dynamic Etching Processor Name | Role | Phone | + [...] + + | 08/19/ | Office | [facility] | Mono Diaz, | Lumbar radiculopathy | | 2019 | Visit | PHYSIATRY [address] | PA-C [address] | (Primary Dx) | | | | [place], | [address] [place] | | | | | [place] [address] | [place] [address] | | | | | [phone] | [phone] | | | | | | | [...] press against a nerve. Date Last Reviewed: 08/01/201719990207-3711 [employer] [place] [address], [place] [address]. All righ ts reserved. This information is [...] and narcotic medications use; she currently uses [place], Flexeril and [place] bapentin. 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 Unfortunately Clementine Winchester continues to [...] | 2018 | Visit | | [address] | | | | | | [place], | | | | | | [place] [address] | | | | | | [phone] | | | | | | | | +--------+---------+ + + + | 07/30/ | Office | Cardiology | Agata Tinajero DO | | | 2019 | Visit | | [address] | | | | | | [place] | | | | | | [address] | | | | | | | [...]
--- OUTSIDE RECORDS SUMMARY | ~2019-05-12 | XMS | Encounter Summary ---
Demographics + + + | Address | [address] | | | [place] [address] | + + + | Home Phone [...] [place], | | | | | [place] [address] | | + + + + + | Kellen Briones | ECON | [place], [place] | | | | | [address] | | + + + + + Care Team Providers + +------+ + | Care Comparison Shopper Name | Role | Phone | + [...] [address] | | | | | [place], [place] | [place] [address] | | | | | [address] | [phone] | | | | | [phone] | | | +--------+ + + + [...] | | | | | | [place] [address] | | | | | | [phone] | | | | | | | | +--------+---------+ + + + | 07/30/ | Office | Cardiology | Agata Tinajero DO | | | 2019 | Visit | | [address] | | | | | | [place] | | | | | | [address] | | | | | | | | +--------+---------+ + + + documented as of this encounter Visit Diagnoses Not on filedocumented in this encounter"
--- OUTSIDE RECORDS SUMMARY | ~2019-05-12 | XMS | Encounter Summary ---
Demographics + + + | Address | [address] | | | [place] [address] | + + + | Home Phone [...] [place], | | | | | [place] [address] | | + + + + + | Kellen Briones | ECON | [place], [place] | | | | | [address] | | + + + + + Care Team Providers + +------+ + | Care Systems Navigator Name | Role | Phone | + [...] | Lumbar | [place], | [address] | | | | | radiculopath | Tk Monreal MD | [place], | | | | | y | [address] | [place] | | | | | Procedures | [place] | [address] | | | | | [place] INJECT | [place], [place] | Phone: | | | | | ANES/STEROID | [address] | [phone] | | | | | [place] | Phone: | Fax: | | | | | LUMBAR/SACRA | [phone] | [phone] | | | | | L W IMG | Fax: | | | | | | GUIDE ,1 | [phone] | | | | | | LEVEL [...] + + | 08/21/ | Hospital | [facility] | Mono Diaz, | Lumbar radiculopathy | | 2019 | Encounter | MED CTR XRAY [address] | PA-C [address] | | | | | [place] | [address] [place] | | | | | [place] [address] | [place] [address] | | | | | [phone] | | | | | | | | | | | | [employer]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
--- OUTSIDE RECORDS SUMMARY | ~2019-05-12 | XMS | Encounter Summary ---
Demographics + + + | Address | [address] | | | [place] [address] | + + + | Home Phone [...] [place], | | | | | [place] [address] | | + + + + + | Kellen Briones | ECON | [place] | | | | | [address] | | + + + + + Care Team Providers + +------+ + | Care Winch Truck Operator Name | Role | Phone | [...] lumbar (Primary Dx); | | | | [place], [place] | [place] [address] | Lumbar | | | | [address] | [phone] | radiculopathy | | | | [phone] | | | +--------+ + + + [...] | | | | | | [place] [address] | | | | | | [phone] | | | | | | | | +--------+---------+ + + + | 07/30/ | Office | Cardiology | Agata Tinajero DO | | | 2019 | Visit | | [address] | | | | | | [place] | | | | | | [address] | | | | | | | [...]
--- OUTSIDE RECORDS SUMMARY | ~2019-05-12 | XMS | Clinical Summary ---
Demographics + + + | Address | [address] | | | [place] [address] | + + + | Home Phone [...] Providers + +------+ + | Care Manager Lvn Name | Role | Phone | + +------+ + PCP | Unavailable | + +------+ + Source Comments HOLLY is fully live on both [facility] and [facility] InPatient.[facility] [...]
--- OUTSIDE RECORDS SUMMARY | ~2019-05-12 | XMS | Encounter Summary ---
Demographics + + + | Address | [address] | | | [place] [address] | + + + | Home Phone [...] [place], | | | | | [place] [address] | | + + + + + | Kellen Briones | ECON | [place], [place] | | | | | [address] | | + + + + + Care Team Providers + +------+ + | Care Usability Strategist Name | Role | Phone | + [...] Thoracic or | [place], | [address] | | | | | lumbosacral | Tk Monreal MD | [place], | | | | | neuritis or | [address] | [place] | | | | | | [place] | [address] | | | | | radiculitis, | [place], [place] | Phone: | | | | | unspecified | [address] | [phone] | | | | | Procedures | Phone: | Fax: | | | | | AL INJECT | [phone] | [phone] | | | | | ANES/STEROID | Fax: | | | | | | [place]AM[place] | [phone] | | | | | | LUMBAR/SACRA [...] + + | 06/08/ | Hospital | [facility] | Tk Ann | Lumbar radiculopathy | | 2014 | Encounter | MED CTR XRAY [address] | T, [address] | (Primary Dx); DDD | | | | [place] | [place], [place] | (degenerative disc | | | | [place] [address] | [address] | disease), lumbar; | | | | [phone] | | Facet arthritis of | | | | | Welfare Centre Manager, [facility] | lumbar region-Most | | | | | | severe at | | | | | | L4-L5,L5-S1; Spinal | | | | | | stenosis of lumbar | | | | | | region with | | | | | | vfidyzohveycy-W2-J4 | | | | | | level [...] | 2018 | Visit | | [address] | | | | | | [place], | | | | | | [place] [address] | | | | | | [phone] | | | | | | | | +--------+---------+ + + + | 07/30/ | Office | Cardiology | Agata Tinajero DO | | | 2019 | Visit | | [address] | | | | | | [place] | | | | | | [address] | | | | | | | [...] with | | | | | | [id number]-B7-M1 | | | | | | level [...] Code 724.4 Clementine Phoenix | [facility] | | Annabella presents to the fluoroscopy suite for fluoroscopically-guided [facility] | | bilateral L5-S1 transforaminal epidural steroid [...] + + + + + | [facility] | [address] | [place] | [phone] | | [facility] | | [address] | | | - IMAGING | | [...] | Spinal stenosis of lumbar region with zlwoisiadnvuq-N5-L7 level moderately severe | | Spinal stenosis, [...]
--- OUTSIDE RECORDS SUMMARY | ~2019-05-12 | XMS | Encounter Summary ---
Demographics + + + | Address | [address] | | | [place] [address] | + + + | Home Phone [...] [place], | | | | | [place] [address] | | + + + + + | Kellen Briones | ECON | [place], [place] | | | | | [address] | | + + + + + Care Team Providers + +------+ + | Care Playground Worker Name | Role | Phone | [...] [address] [facility] [address] | [address] [place], [place] | (Primary Dx); Status | | | | [place], [place] | [address] | post cervical | | | | [address] | | spinal fusion | | | | [phone] | | | +--------+ + + + [...] | 2018 | Visit | | [address] | | | | | | [place] | | | | | | [place] [address] | | | | | | [phone] | | | | | | | | +--------+---------+ + + + | 07/30/ | Office | Cardiology | Agata Tinajero DO | | | 2019 | Visit | | [address] | | | | | | [place] | | | | | | [address] | | | | | | | [...] [address] | [place]inal [place] | [phone] | | [facility] | | [address] | | | - IMAGING | | | | + + + + + documented in this encounter Visit Diagnoses + + | Diagnosis | + + | Spondylolisthesis of cervical region - Primary Acquired spondylolisthesis | + + | Status post cervical spinal fusion Arthrodesis status | + + documented in this encounter"
--- OUTSIDE RECORDS SUMMARY | ~2019-05-12 | XMS | Encounter Summary ---
Demographics + + + | Address | [address] | | | [place] [address] | + + + | Home Phone [...] [place], | | | | | [place] [address] | | + + + + + | Kellen Briones | ECON | [place], [place] | | | | | [address] | | + + + + + Care Team Providers + +------+ + | Care Open Claims Representative Name | Role | Phone | [...] + + | 10/02/ | Telephone | [facility] | Irving Becerril, | Imaging Only ([address] | | 2016 | | [address] | DO [address] | xray ) | | | | [address] | [address] [place], [place] | | | | | [place], [place] | [id number] | | | | | [address] | | | | | | [phone] | | | +--------+ + + + [...] [place]INK[place] | | | | | [place] [address] | | | | | | [phone] | | | | | | | | +--------+---------+ + + + | 07/30/ | Office | Cardiology | Agata Tinajero DO | | | 2019 | Visit | | [address] | | | | | | [place] | | | | | | [address] | | | | | | | | +--------+---------+ + + + documented as of this encounter Visit Diagnoses Not on filedocumented in this encounter"
--- OUTSIDE RECORDS SUMMARY | ~2019-05-12 | XMS | Encounter Summary ---
Demographics + + + | Address | [address] | | | [place] [address] | + + + | Home Phone [...] [place], | | | | | [place] [address] | | + + + + + | Kellen Briones | ECON | [place] | | | | | [address] | | + + + + + Care Team Providers + +------+ + | Care Data Warehouse Manager Name | Role | Phone | + +------+ + | Barb Marte | PCP | | + +------+ + Encounter Details +--------+ + + + + | Date | Type | Department | Care Team | Description | +--------+ + + + + | 01/31/ | Hospital | [facility] | Conversion | Pain | | 2018 | Encounter | CONVERSION [address] | Transaction, | | | | | [address] | Provider Unknown | | | | | [place], [place] | [phone] | | | | | [address] | | | | | | [phone] | | | +--------+ + + + [...] | | | | | | [place] [address] | | | | | | [phone] | | | | | | | | +--------+---------+ + + + | 07/30/ | Office | Cardiology | Agata Tinajero DO | | | 2019 | Visit | | [address] | | | | | | [place] | | | | | | [address] | | | | | | | [...]
--- OUTSIDE RECORDS SUMMARY | ~2019-05-12 | XMS | Encounter Summary ---
Demographics + + + | Address | [address] | | | [place] [address] | + + + | Home Phone [...] [place], [place] | | | | | [address] | | + + + + + Care Team Providers + +------+ + | Care Land Conservation Specialist Name | Role | Phone | [...] + | 04/30/ | Refill | [facility] | Irving Becerril, | Medication Refill | | 2015 | | [address] | DO [address] | | | | | [address] | [address] [place], [place] | | | | | [place], [place] | [id number] | | | | | [address] | | | | | | [phone] | | | +--------+--------+ + + + [...] | | | | | | [place] [address] | | | | | | [phone] | | | | | | | | +--------+---------+ + + + | 07/30/ | Office | Cardiology | Agata Tinajero DO | | | 2019 | Visit | | [address] | | | | | | [place] | | | | | | [address] | | | | | | | | +--------+---------+ + + + documented as of this encounter Visit Diagnoses Not on filedocumented in this encounter"
--- OUTSIDE RECORDS SUMMARY | ~2019-05-12 | XMS | Encounter Summary ---
Demographics + + + | Address | [address] | | | [place] [address] | + + + | Home Phone [...] [place], | | | | | [place] [address] | | + + + + + | Kellen Briones | ECON | [place], [place] | | | | | [address] | | + + + + + Care Team Providers + +------+ + | Care Assembly Worker Name | Role | Phone | [...] + + | 05/11/ | Office | [facility] | Tk Ann | Neck pain on right | | 2012 | Visit | [address]SIATRY [address] | T, [address] | side (Primary Dx); | | | | [place], | [place], [place] | Facet arthritis of | | | | [place] [address] | [address] | cervical region; DDD | | | | [phone] | | (degenerative disc | | | [...] with | | | | | | qobpfmukknnhg-Y8-H8 | | | | | | level [...] of the procedure you must provide a box truck driver to take you home. For [...] had actually been seeing Dr. Jordan in [place] for the neck issues and was scheduled [...] 8. Spinal stenosis of lumbar region with pppsujdadiamg-T8-G2 level moderately severe 9. Facet arthritis of [...] x-rays of the lumbar spine at [facility]. 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
--- OUTSIDE RECORDS SUMMARY | ~2019-05-12 | XMS | Encounter Summary ---
Demographics + + + | Address | [address] | | | [place] [address] | + + + | Home Phone [...] [place], | | | | | [place] [address] | | + + + + + | Kellen Briones | ECON | [place], [place] | | | | | [address] | | + + + + + Care Team Providers + +------+ + | Care Harp Repairer Name | Role | Phone | [...] + + | 03/28/ | Telephone | [facility] | Irving Becerril, | Surgery Appointment | | 2015 | | NEUR[address]UR[address]ERY [address] | DO [address] | (reminder ) | | | | [address] | [address] [place], [place] | | | | | [place], [place] | [address] | | | | | [address] | | | | | | [phone] | | | +--------+ + + + [...] | | | | | | [place] [address] | | | | | | [phone] | | | | | | | | +--------+---------+ + + + | 07/30/ | Office | Cardiology | Agata Tinajero DO | | | 2019 | Visit | | [address] | | | | | | [place] | | | | | | [address] | | | | | | | | +--------+---------+ + + + documented as of this encounter Visit Diagnoses Not on filedocumented in this encounter"
--- OUTSIDE RECORDS SUMMARY | ~2019-05-12 | XMS | Encounter Summary ---
Demographics + + + | Address | [address] | | | [place] [address] | + + + | Home Phone [...] [place], | | | | | [place] [address] | | + + + + + | Kellen Briones | ECON | [place], [place] | | | | | [address] | | + + + + + Care Team Providers + +------+ + | Care Delivery Nurse Name | Role | Phone | [...] + + | 03/30/ | Hospital | [facility] | Irving Becerril, | | | 2016 | Encounter | MED CTR XRAY [address] | DO [address] | | | | | [place] | [address] [place], [place] | | | | | [place] [address] | [id number] | | | | | [phone] | | | +--------+ + + + [...] | | | | | | [place] [address] | | | | | | [phone] | | | | | | | | +--------+---------+ + + + | 07/30/ | Office | Cardiology | Agata Tinajero DO | | | 2019 | Visit | | [address] | | | | | | [place] | | | | | | [address] | | | | | | | [...]
--- OUTSIDE RECORDS SUMMARY | ~2019-05-12 | XMS | Encounter Summary ---
Demographics + + + | Address | [address] | | | [place] [address] | + + + | Home Phone [...] [place], | | | | | [place] [address] | | + + + + + | Kellen Briones | ECON | [place], [place] | | | | | [address] | | + + + + + Care Team Providers + +------+ + | Care Tank Truck Operator Name | Role | Phone [...] | | | | | | [place] [address] | | | | | | [phone] | | | +--------+ + + + [...] | | | | | | [place] [address] | | | | | | [phone] | | | | | | | | +--------+---------+ + + + | 07/30/ | Office | Cardiology | Agata Tinajero DO | | | 2019 | Visit | | [address] | | | | | | [place] | | | | | | [address] | | | | | | | | +--------+---------+ + + + documented as of this encounter Visit Diagnoses Not on filedocumented in this encounter"
--- OUTSIDE RECORDS SUMMARY | ~2019-05-12 | XMS | Encounter Summary ---
Demographics + + + | Address | [address] | | | [place] [address] | + + + | Home Phone [...] [place], | | | | | [place] [address] | | + + + + + | Kellen Briones | ECON | [place], [place] | | | | | [address] | | + + + + + Care Team Providers + +------+ + | Care Torque Tester Name | Role | Phone | [...] + + | 02/11/ | Office | [facility] | Mono Diaz, | Lumbar radiculopathy | | 2018 | Visit | [address]SIATRY [address] | PA-C [address] | (Primary Dx) | | | | [place], | [address] [place] | | | | | [place] [address] | [place] [address] | | | | | [phone] | [phone] | | | | | | | [...] of the procedure you must provide a locomotive driver to take you home. For all [...] press against a nerve. Date Last Reviewed: 08/01/201719997726-8042 [employer]. [address] [place] [address], [place] [address]. All righ ts reserved. This information is [...] back symptoms. Recenlty patient was admitted to [facility]'s ED/ICU for abnormal behavior which was originally treated as a str samantha, patient's daughter requested she be transferred to [facility] where patient was diagnosed w ith Serotonin [...] and narcotic medications use; she currently uses [place], Flexeril and ga bapentin. She is taking [...] has no apparent deficits with short or fpc memory. She has appropriate fund of knowledge [...] (multiple sessions over the years) and career counselor. Unfortunately Clementine Winchester continues to have [...] | | | | | | [place] [address] | | | | | | [phone] | | | | | | | | +--------+---------+ + + + | 07/30/ | Office | Cardiology | Agata Tinajero DO | | | 2019 | Visit | | [address] | | | | | | [place] | | | | | | [address] | | | | | | | [...]
--- OUTSIDE RECORDS SUMMARY | ~2019-05-12 | XMS | Encounter Summary ---
Demographics + + + | Address | [address] | | | [place] [address] | + + + | Home Phone [...] [place], | | | | | [place] [address] | | + + + + + | Kellen Briones | ECON | [place], [place] | | | | | [address] | | + + + + + Care Team Providers + +------+ + | Care Security Threat Analyst Name | Role | Phone | [...] + + | 05/11/ | Office | [facility] | Tk Ann | Neck pain on right | | 2012 | Visit | [address]YSIATRY [address] | T, [address] | side (Primary Dx); | | | | [place], | [place], [place] | Facet arthritis of | | | | [place] [address] | [address] | cervical region; DDD | | | | [phone] | | (degenerative disc | | | [...] with | | | | | | nxbgkorvixale-M0-X9 | | | | | | level [...] of the procedure you must provide a electric pile driver operator to take you home. For all procedur [...] had actually been seeing Dr. Jordan in [place] for the neck issues and was scheduled [...] 8. Spinal stenosis of lumbar region with qtxrmeoybulwp-C0-C6 level moderately severe 9. Facet arthritis of [...] extension x-[facility] lumbar spine at [facility]. 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
--- OUTSIDE RECORDS SUMMARY | ~2019-05-12 | XMS | Encounter Summary ---
Demographics + + + | Address | [address] | | | [place] [address] | + + + | Home Phone [...] [place], | | | | | [place] [address] | | + + + + + | Kellen Briones | ECON | [place] | | | | | [address] | | + + + + + Care Team Providers + +------+ + | Care Bilingual Loan Processor Name | Role | Phone | + +------+ + | Barb Marte | THANG | | + +------+ + Encounter Details +--------+ + + + + | Date | Type | Department | Care Team | Description | +--------+ + + + + | 01/17/ | Imaging | [facility] | Provider, | | | 2018 | Exam | MED CTR EXTERNAL | [address] | | | | | IMAGING | [place] | | | | | [phone] | [place] [address] | | +--------+ + + + + [...] | | | | | | [place] [address] | | | | | | [phone] | | | | | | | | +--------+---------+ + + + | 07/30/ | Office | Cardiology | TinajeroAgata joshiDO | | | 2019 | Visit | | [address] | | | | | | [place] | | | | | | [address] | | | | | | | [...]
--- OUTSIDE RECORDS SUMMARY | ~2019-05-12 | XMS | Encounter Summary ---
Demographics + + + | Address | [address] | | | [place] [address] | + + + | Home Phone [...] [place], | | | | | [place] [address] | | + + + + + | Kellen Briones | ECON | [place], [place] | | | | | [address] | | + + + + + Care Team Providers + +------+ + | Care Fine Craft Artist Name | Role | Phone | [...] | (Primary Dx); | | | | [place], | [address] [place], | Spinal stenosis of | | | | [place] [address] | [place] [address] | lumbar region with | | | | [phone] | [phone] | yqrtaxbuiaazu-B0-L6 | | | | | | level [...] the procedure you must provide a delivery motorcycle driver to take you home. For all [...] and narcotic medications use; she currently uses [place], Flexeril and ga bapentin. Patient's medications, allergies, [...] 2. Spinal stenosis of lumbar region with saoudjsjgwgxq-J1-Q6 level moderately severe 3. DDD (degenerative disc [...] be performed by me in the near [facility] re. 2. I did not make [...] | 2020 | Visit | | [address] [facility] | | | | | | [place], | | | | | | [place] [address] | | | | | | [phone] | | | | | | | | +--------+---------+ + + + | 07/30/ | Office | Cardiology | Agata Tinajero DO | | | 2020 | Visit | | [address] | | | | | | [place], [place] | | | | | | [address] | | | | | | | [...] radiculopathy ICD-10 Code M54.16 Clementine Phoenix | [facility] | | Annabella presents to the fluoroscopy suite for [facility] | | fluoroscopically-guided bilateral L5-S1 transforaminal [...] ST. | [address] | [place] | [phone] | | [facility] | | [address] | | | - IMAGING | | | | + + + + + documented in this encounter Visit Diagnoses + + | Diagnosis | + + | Lumbar radiculopathy - Primary Thoracic or lumbosacral neuritis or radiculitis, | | unspecified | + + | Spinal stenosis of lumbar region with yhpjuqlbreenf-B2-Y7 level moderately severe | | Spinal stenosis, [...]
--- OUTSIDE RECORDS SUMMARY | ~2019-05-12 | XMS | Encounter Summary ---
Demographics + + + | Address | [address] | | | [place] [address] | + + + | Home Phone [...] [place], | | | | | [place] [address] | | + + + + + | Kellen Briones | ECON | [place], [place] | | | | | [address] | | + + + + + Care Team Providers + +------+ + | Care Employment Training Specialist Name | Role | Phone | [...] + + | 05/07/ | Telephone | [facility] | Irving Becerril, | Paperwork | | 2016 | | NEUR[address]UR[address]ERY [address] | DO [address] | | | | | [address] | [address] [place], [place] | | | | | [place], [place] | [id number] | | | | | [address] | | | | | | [phone] | | | +--------+ + + + [...] | | | | | | [place] [address] | | | | | | [phone] | | | | | | | | +--------+---------+ + + + | 07/30/ | Office | Cardiology | Agata Tinajero DO | | | 2019 | Visit | | [address] | | | | | | [place] | | | | | | [address] | | | | | | | | +--------+---------+ + + + documented as of this encounter Visit Diagnoses Not on filedocumented in this encounter"
--- OUTSIDE RECORDS SUMMARY | ~2019-05-12 | XMS | Encounter Summary ---
Demographics + + + | Address | [address] | | | [place] [address] | + + + | Home Phone [...] [place], | | | | | [place] [address] | | + + + + + | Kellen Briones | ECON | [place], [place] | | | | | [address] | | + + + + + Care Team Providers + +------+ + | Care Grain Packer Name | Role | Phone | [...] + + | 02/14/ | Telephone | [facility] | Irving Becerril, | Letter | | 2015 | | NEUROSUR[address] | DO [address] | | | | | [address] | [address] [place], [place] | | | | | [place], [place] | [address] | | | | | [address] | | | | | | [phone] | | | +--------+ + + + [...] | | | | | [place] [address] | | | | | | [phone] | | | | | | | | +--------+---------+ + + + | 07/30/ | Office | Cardiology | Agata Tinajero DO | | | 2019 | Visit | | [address] | | | | | | [place] | | | | | | [address] | | | | | | | | +--------+---------+ + + + documented as of this encounter Visit Diagnoses Not on filedocumented in this encounter"
--- OUTSIDE RECORDS SUMMARY | ~2019-05-12 | XMS | Encounter Summary ---
Demographics + + + | Address | [address] | | | [place] [address] | + + + | Home Phone [...] [place], | | | | | [place] [address] | | + + + + + | Kellen Briones | ECON | [place], [place] | | | | | [address] | | + + + + + Care Team Providers + +------+ + | Care Forest Ecology Professor Name | Role | Phone | [...] | | | | lumbar | [place] [address] | [address] Phone: | | | | | region DDD | Phone: | [phone] | | | | | (degenerativ | [phone] | Fax: | | | | | e disc | Fax: | [phone] | | | | | disease), | [phone] | | | | | | lumbar [...] + + | 12/08/ | Office | [facility] | Mono Diaz, | Lumbar radiculopathy | | 2019 | Visit | [address]SIATRY [address] | PA-C [address] | (Primary Dx); | | | | [place], | [address] [place] | Spondylolisthesis [place] | | | | [place] [address] | [place] [address] | lumbar region; DDD | | | | [phone] | [phone] | (degenerative disc | | | | | | disease), lumbar; | | | | | | Spinal stenosis of | | | | | | lumbar region with | | | | | | etxsttkrqblfh-J9-M9 | | | | | | level [...] disk, and irritate nerves. Date Last Reviewed: 11/01/201719998757-0613 [employer]. [address] [place] [address], [place] [address]. All righ ts reserved. This information is not intended as a substitute for professional medical care. Always follow your healthcare professional's instructions. documented in this encounter Progress Notes Mono Diaz PA-C - 12/08/2018 2:40 PM PDTFormatting of this note might be different fro m the original. Mono Diaz PA-C [address] [facility], [address] [place] [address] FAX: CHIEF COMPLAINT: Chief Complaint Patient presents [...] apparent deficits with short or longterm memory. The cranial nerves appear grossly intact. [...] lumbar Spinal stenosis of lumbar region with ifystlwoqbxlh-C0-H2 level moderately severe PLAN: 1) Today we [...] PT (multiple sessions over the years) and landcare facilitator. Unfortunately Clementine Winchester continues to have significant [...] up appt with cardiology later this m [facility]. I spent 30 minutes in visit with [...] | 2018 | Visit | | [address] | | | | | | [place], | | | | | | [place] [address] | | | | | | [phone] | | | | | | | | +--------+---------+ + + + | 07/30/ | Office | Cardiology | Agata Tinajero DO | | | 2020 | Visit | | [address] | | | | | | [place] | | | | | | [address] | | | | | | | [...] with | | | | | | rxudynixshnyd-G0-R3 | | | | | | level [...] | Spinal stenosis of lumbar region with mzgtvoguhzsng-L4-S8 level moderately severe | | Spinal stenosis, lumbar region, without neurogenic claudication | + + documented in this encounter
--- OUTSIDE RECORDS SUMMARY | ~2019-05-12 | XMS | Encounter Summary ---
Demographics + + + | Address | [address] | | | [place] [address] | + + + | Home Phone [...] [place], | | | | | [place] [address] | | + + + + + | Kellen Briones | ECON | [place], [place] | | | | | [address] | | + + + + + Care Team Providers + +------+ + | Care Director Health Name | Role | Phone | + [...] [address] | [address] [place], [place] | (Primary Dx); Status | | | | [place], [place] | [address] | post cervical | | | | [address] | | spinal fusion | | | | [phone] | | | +--------+ + + + [...] | 2019 | Visit | | [address] | | | | | | [place] | | | | | | [place] [address] | | | | | | [phone] | | | | | | | | +--------+---------+ + + + | 07/30/ | Office | Cardiology | Agata Tinajero DO | | | 2019 | Visit | | [address] | | | | | | [place] | | | | | | [address] | | | | | | | [...] [address] | [place] | [phone] | | [facility] | | [address] | | | - IMAGING | | | | + + + + + documented in this encounter Visit Diagnoses + + | Diagnosis | + + | Spondylolisthesis of cervical region - Primary Acquired spondylolisthesis | + + | Status post cervical spinal fusion Arthrodesis status | + + documented in this encounter"
--- OUTSIDE RECORDS SUMMARY | ~2019-05-12 | XMS | Encounter Summary ---
Demographics + + + | Address | [address] | | | [place] [address] | + + + | Home Phone [...] [place], | | | | | [place] [address] | | + + + + + | Kellen Briones | ECON | [place], [place] | | | | | [address] | | + + + + + Care Team Providers + +------+ + | Care Awning Erector Name | Role | Phone | + [...] + + | 10/08/ | Telephone | [facility] | Tk Ann | Other (Schedule | | 2012 | | PHYSIATRY [address] | T, [address] | injection) | | | | [place], | [place], [place] | | | | | [place] [address] | [address] | | | | | [phone] | | | +--------+ + + + [...] | | | | | | [place] [address] | | | | | | [phone] | | | | | | | | +--------+---------+ + + + | 07/30/ | Office | Cardiology | Agata Tinajero DO | | | 2019 | Visit | | [address] | | | | | | [place] | | | | | | [address] | | | | | | | | +--------+---------+ + + + documented as of this encounter Visit Diagnoses Not on filedocumented in this encounter"
--- OUTSIDE RECORDS SUMMARY | ~2019-05-12 | XMS | Encounter Summary ---
Demographics + + + | Address | [address] | | | [place] [address] | + + + | Home Phone | | + + + | Preferred Language | Unknown | + + + | Marital Status | | + + + | Holiness Affiliation | 1041 | + + + | Race | Unknown | + + + | Ethnic Group | Unknown | + + + Author + + + | Author | [facility] | | | and [place] | + + + | Organization | [facility] | | | and [place] | + + + | Address | Unknown | + + + | Phone | Unavailable | + + + Support + + + + + | Name | Relationship | Address | Phone | + + + + + | Lucy Winchester | ECON | [place], | | | | | [place] [address] | | + + + + + | Kellen Briones | ECON | [place], [place] | | | | | [address] | | + + + + + Care Team Providers + +------+ + | Care Button Breaker Name | Role | Phone | + +------+ + | Anna De Guzman PA-C | PCP | | + +------+ + Encounter Details +--------+ + + + + | Date | Type | Department | Care Team | Description | +--------+ + + + + | 06/04/ | Hospital | [facility] | RealRamon das | Neck pain | | 2012 - | Encounter | MED CTR XRAY [address] | FMD [address] | | | | | [place] | [place], [place] | | | 06/06/ | | [place] [address] | [address] | | | 2012 | | [phone] | | | | | | [...] | 2019 | Visit | | [address] | | | | | | [place], | | | | | | [place] [address] | | | | | | [phone] | | | | | | | | +--------+---------+ + + + | 07/30/ | Office | Cardiology | Agata Tinajero DO | | | 2019 | Visit | | [address] | | | | | | [place] | | | | | | [address] | | | | | | | [...] Performed At | + + + | [facility] | [place] | | Department [address] [place] [address] | [facility] | | [ rep ct street[address]] [ rep ct [facility] | | st zip] Signed | - IMAGING | | | | | Patient Name: CLEMENTINE WINCHESTER Physician: | | | ARRE.01 : 1940 Age: 72 Sex: F Unit #: [id number] | | | Exam Date: 06/04/12 Location: [facility] | | | Report #: [id number] Page: | | | %(RAD)RES..mtdd.print.filter("pg") of %(RAD) | | | RES..mtdd.print.filter("tpg") | | | | | | Accession Number: [id number] | | | CERVICAL SPINE, 06/04/2012 CLINICAL [...] Transcribed | | | Date/Time: 06/04/2012 17:12 Reel And Rewinder Operator: | | | <<Signature on File>> | | | | | | Gordon Burrell MD06/05/12 0852 <Electronically signed by | | | Gordon Burrell MD> Gordon Burrell MD 06/04/12 | | | 1701 Reel And Rewinder Operator: Tie Society Gtpescfkudsom83/02/13 1712 | | | Ramon Real MD | | + + + + + + + + | Performing | Address | City/State/Zipcode | Phone Number | | Organization | | | | + + + + + | [address] | [address] | [place] | [phone] | | [facility] | | [address] | | | - IMAGING | | | | + + + + + documented in this encounter Visit Diagnoses + + | Diagnosis | + + | Neck pain Cervicalgia | + + documented in this encounter
--- OUTSIDE RECORDS SUMMARY | ~2019-05-12 | XMS | Encounter Summary ---
Demographics + + + | Address | [address] | | | [place] [address] | + + + | Home Phone [...] [place], | | | | | [place] [address] | | + + + + + | Kellen Briones | ECON | [place] | | | | | [address] | | + + + + + Care Team Providers + +------+ + | Care Security Systems Manager Name | Role | Phone | + +------+ + | Barb Marte | THANG | | + +------+ + Encounter Details +--------+ + + + + | Date | Type | Department | Care Team | Description | +--------+ + + + + | 03/05/ | Hospital | [facility] | Barb Marte PA | Abnormal mammogram | | 2018 | Encounter | MED CTR MAMMOGRAPHY | [address] | | | | | [address] | [address] [place] | | | | | [place] | [address] | | | | | [address] | | | | | | [phone] | [place] | | +--------+ [...] | | | | | | [place] [address] | | | | | | [phone] | | | | | | | | +--------+---------+ + + + | 07/30/ | Office | Cardiology | Agata Tinajero DO | | | 2019 | Visit | | [address] | | | | | | [place] | | | | | | [address] | | | | | | | [...]
--- OUTSIDE RECORDS SUMMARY | ~2019-05-12 | XMS | Encounter Summary ---
Demographics + + + | Address | [address] | | | [place] [address] | + + + | Home Phone [...] [place], | | | | | [place] [address] | | + + + + + | Kellen Briones | ECON | [place], [place] | | | | | [address] | | + + + + + Care Team Providers + +------+ + | Care Personal Care Worker Name | Role | Phone [...] + + | 04/04/ | Telephone | [facility] | Irving Becerril, | Imaging Only | | 2016 | | NEUROSURGERY [address] | DO [address] | (Cervical xray ) | | | | [address] | [address] [place], [place] | | | | | [place], [place] | [id number] | | | | | [address] | | | | | | [phone] | | | +--------+ + + + [...] [place] | | | | | [place] [address] | | | | | | [phone] | | | | | | | [...]
--- OUTSIDE RECORDS SUMMARY | ~2019-05-12 | XMS | Encounter Summary ---
Demographics + + + | Address | [address] | | | [place] [address] | + + + | Home Phone [...] [place], | | | | | [place] [address] | | + + + + + | Kellen Briones | ECON | [place], [place] | | | | | [address] | | + + + + + Care Team Providers + +------+ + | Care Senior Designer/Art Director Name | Role | Phone | [...] + | 04/30/ | Refill | [facility] | Irving Becerril, | Medication Refill | | 2015 | | NEUROSURGERY [address] | DO [address] | | | | | [address] | [address] [place], [place] | | | | | [place], [place] | [id number] | | | | | [address] | | | | | | [phone] | | | +--------+--------+ + + + [...] | | | | | | [place] [address] | | | | | | [phone] | | | | | | | | +--------+---------+ + + + | 07/30/ | Office | Cardiology | Agata Tinajero DO | | | 2019 | Visit | | [address] | | | | | | [place] | | | | | | [address] | | | | | | | | +--------+---------+ + + + documented as of this encounter Visit Diagnoses Not on filedocumented in this encounter"
--- OUTSIDE RECORDS SUMMARY | ~2019-05-12 | XMS | Encounter Summary ---
Demographics + + + | Address | [address] | | | [place] [address] | + + + | Home Phone [...] [place], | | | | | [place] [address] | | + + + + + | Kellen Briones | ECON | [place], [place] | | | | | [address] | | + + + + + Care Team Providers + +------+ + | Care Ivf Embryologist Name | Role | Phone | + [...] | Lumbar | [place], | [address] | | | | | radiculopath | Tk Monreal MD | [place], | | | | | y | [address] | [place] | | | | | Procedures | [place] | [address] | | | | | [place] INJECT | [place], [place] | Phone: | | | | | ANES/STEROID | [address] | [phone] | | | | | FORAMEN | Phone: | Fax: | | | | | LUMBAR/SACRA | [phone] | [phone] | | | | | L W IMG | Fax: | | | | | | GUIDE ,1 | [phone] | | | | | | LEVEL [...] | | | | | | | [place] | | | | | [...] + + | 05/12/ | Hospital | [facility] | Mono Diaz, | Lumbar radiculopathy | | 2018 | Encounter | MED CTR XRAY [address] | PA-C [address] | | | | | [place] | [address] [place] | | | | | [place] [address] | [place] [address] | | | | | [phone] | [phone] | | | | | | | | | | | | General Manager Food, [facility] | | +--------+ + + + [...] | | | | | [place] [address] | | | | | | [phone] | | | | | | | | +--------+---------+ + + + | 07/30/ | Office | Cardiology | Agata Tinajero DO | | | 2019 | Visit | | [address] | | | | | | [place] | | | | | | [address] | | | | | | | [...]
--- OUTSIDE RECORDS SUMMARY | ~2019-05-12 | XMS | Encounter Summary ---
Demographics + + + | Address | [address] | | | [place] [address] | + + + | Home Phone [...] [place], | | | | | [place] [address] | | + + + + + | Kellen Briones | ECON | [place], [place] | | | | | [address] | | + + + + + Care Team Providers + +------+ + | Care Venture Capitalist Name | Role | Phone | + [...] | Lumbar | [place], | [address] | | | | | radiculopath | Tk Monreal MD | [place], | | | | | y | [address] | [place] | | | | | Procedures | [place] | [address] | | | | | MD INJECT | [place], [place] | Phone: | | | | | ANES/STEROID | [address] | [phone] | | | | | [place]AMEN | Phone: | Fax: | | | | | LUMBAR/SACRA | [phone] | [phone] | | | | | L W IMG | Fax: | | | | | | GUIDE ,1 | [phone] | | | | | | LEVEL [...] + + | 08/21/ | Hospital | [facility] | Mono Diaz, | Lumbar radiculopathy | | 2019 | Encounter | MED CTR XRAY [address] | PA-C [address] | | | | | [place] | [address] [place] | | | | | [place] [address] | [place] [address] | | | | | [phone] | [phone] | | | | | | | | | | | | Patient Support Tech, [facility] | | +--------+ + + + [...] | 2020 | Visit | | [address] [facility] | | | | | | [place] | | | | | | [place] [address] | | | | | | [phone] | | | | | | | | +--------+---------+ + + + | 07/30/ | Office | Cardiology | Agata TinajeroDO | | | 2019 | Visit | | [address] | | | | | | [place] | | | | | | [address] | | | | | | | [...] + + | Performing | Address | City/State/[place]ust[place] | Phone Number | | Organization | [...]
--- OUTSIDE RECORDS SUMMARY | ~2019-05-12 | XMS | Encounter Summary ---
Demographics + + + | Address | [address] | | | [place] [address] | + + + | Home Phone [...] [place], | | | | | [place] [address] | | + + + + + | Kellen Briones | ECON | [place], [place] | | | | | [address] | | + + + + + Care Team Providers + +------+ + | Care Life Skills Educator Name | Role | Phone | [...] + | 06/18/ | Refill | [facility] | Irving Becerril, | Medication Refill | | 2016 | | NEUROSURGERY [address] | DO [address] | | | | | [address] [facility] | [address] [place], [place] | | | | | [place], [place] | [id number] | | | | | [address] | | | | | | [phone] | | | +--------+--------+ + + + [...] | | | | | | [place] [address] | | | | | | [phone] | | | | | | | | +--------+---------+ + + + | 07/30/ | Office | Cardiology | Agata Tinajero DO | | | 2019 | Visit | | [address] | | | | | | [place] | | | | | | [address] | | | | | | | | +--------+---------+ + + + documented as of this encounter Visit Diagnoses + + | Diagnosis | + + | S/P cervical spinal fusion - Primary Arthrodesis status | + + documented in this encounter"
--- OUTSIDE RECORDS SUMMARY | ~2019-05-12 | XMS | Encounter Summary ---
Demographics + + + | Address | [address] | | | [place] [address] | + + + | Home Phone [...] [place], | | | | | [place] [address] | | + + + + + | Kellen Briones | ECON | [place], [place] | | | | | [address] | | + + + + + Care Team Providers + +------+ + | Care Public Health Sanitarian Technician Name | Role | Phone | [...] | Lumbar | [place], | [address] | | | | | radiculopath | Tk Monreal MD | [place], | | | | | y | [address] | [place] | | | | | Procedures | [place] | [address] | | | | | [place] INJECT | [facility], [place] | Phone: | | | | | ANES/STEROID | [address] | [phone] | | | | | [place]AM[place] | Phone: | Fax: | | | | | LUMBAR/SACRA | [phone] | [phone] | | | | | L W IMG | Fax: | | | | | | GUIDE ,1 | [phone] | | | | | | LEVEL [place] | | | | | | | [...] + + | 11/15/ | Hospital | [facility] | [place], | Spondylolisthesis of | | 2015 | Encounter | MED CTR XRAY [address] | [place] [address] | lumbar region; | | | | [place] | [facility], | Lumbar | | | | [place] [address] | [place] [address] | radiculopathy; | | | | [phone] | [phone] | Spinal stenosis of | | | | | | lumbar region with | | | | | Head Of Research & InsightsCandace | iunwksanqoozn-K8-J3 | | | | | | level [...] | 2018 | Visit | | [address] | | | | | | [place] | | | | | | [place] [address] | | | | | | [phone] | | | | | | | | +--------+---------+ + + + | 07/30/ | Office | Cardiology | Agata Tinajero DO | | | 2020 | Visit | | [address] | | | | | | [place] | | | | | | [address] | | | | | | | [...] with | | | | | | xfcrjzfnysowu-Q7-W6 | | | | | | level [...] | Diagnosis: Lumbar radiculopathy ICD-10 Code M54.16 [place] | [facility] | | Lizett Winchester presents to the fluoroscopy suite for | [facility] | | fluoroscopically-guided bilateral L5-S1 transforaminal [...] [address] | [place] | [phone] | | [facility] | | [address] | | | - IMAGING | | | | + + + + + documented in this encounter Visit Diagnoses + + | Diagnosis | + + | Spondylolisthesis of lumbar region Acquired spondylolisthesis | + + | Lumbar radiculopathy Thoracic or lumbosacral neuritis or radiculitis, unspecified | + + | Spinal stenosis of lumbar region with ezihibiiehvzv-Y6-N0 level moderately severe | | Spinal stenosis, [...]
--- OUTSIDE RECORDS SUMMARY | ~2019-05-12 | XMS | Encounter Summary ---
Demographics + + + | Address | [address] | | | [place] [address] | + + + | Home Phone | | + + + | Preferred Language | Unknown | + + + | Marital Status | Unknown | + + + | Hinduism Affiliation | Unknown | + + + | Race | Unknown | + + + | Ethnic Group | Unknown | + + + Author + + + | Author | [facility] | + + + | Organization | [facility] | + + + | Address | Unknown | + + + | Phone | Unavailable | + + + Care Team Providers + +------+ + | Care Sorting Cows Worker Name | Role | Phone | [...] [address] | | | | | | [place], [place] | | | | | | [address] | | | +--------+ + + + [...]
--- OUTSIDE RECORDS SUMMARY | ~2019-05-12 | XMS | Encounter Summary ---
Demographics + + + | Address | [address] | | | [place] [address] | + + + | Home Phone [...] [place], | | | | | [place] [address] | | + + + + + | Kellen Briones | ECON | [place], [place] | | | | | [address] | | + + + + + Care Team Providers + +------+ + | Care Environmental Designer Name | Role | Phone | [...] | side; Facet | | | | [place], | [address] [place], | arthritis of | | | | [place] [address] | [place] [address] | cervical region | | | | [phone] | [phone] | (HCC); DDD | | | | [...] | | | | | | [place] [address] | | | | | | [phone] | | | | | | | | +--------+---------+ + + + | 07/30/ | Office | Cardiology | Agata Tinajero DO | | | 2019 | Visit | | [address] | | | | | | [place] | | | | | | [address] | | | | | | | [...]
--- OUTSIDE RECORDS SUMMARY | ~2019-05-12 | XMS | Encounter Summary ---
Demographics + + + | Address | [address] | | | [place] [address] | + + + | Home Phone [...] [place], | | | | | [place] [address] | | + + + + + | Kellen Briones | ECON | [place], [place] | | | | | [address] | | + + + + + Care Team Providers + +------+ + | Care Micro Computer Data Processor Name | Role | Phone | [...] | | | | lumbar | [place] [address] | [address] Phone: | | | | | region DDD | Phone: | [phone] | | | | | (degenerativ | [phone] | Fax: | | | | | e disc | Fax: | [phone] | | | | | disease), | [phone] | | | | | | lumbar [...] + + | 12/08/ | Office | [facility] | Mono Diaz, | Lumbar radiculopathy | | 2019 | Visit | PHYSIATRY [address] | PA-C [address] | (Primary Dx); | | | | [place], | [address] [place] | Spondylolisthesis [place] | | | | [place] [address] | [place] [address] | lumbar region; DDD | | | | [phone] | [phone] | (degenerative disc | | | | | | disease), lumbar; | | | | | | Spinal stenosis of | | | | | | lumbar region with | | | | | | cendkkduapghi-D3-S4 | | | | | | level [...] disk, and irritate nerves. Date Last Reviewed: 11/01/201719994853-5661 [facility]. [address] [place] [address], [place] [address]. All righ ts reserved. This information is not intended as a substitute for professional medical care. Always follow your healthcare professional's instructions. documented in this encounter Progress Notes Mono Diaz PA-C - 12/08/2018 2:40 PM PDTFormatting of this note might be different fro m the original. Mono Diaz PA-C [address] [facility], [address] [place] [address] FAX: CHIEF COMPLAINT: Chief Complaint Patient presents [...] apparent deficits with short or snf memory. The cranial nerves appear grossly intact. [...] lumbar Spinal stenosis of lumbar region with pxynjcalbmkdm-Y7-D4 level moderately severe PLAN: 1) Today we [...] (multiple sessions over the years) and healthcare or medical. Unfortunately Clementine Winchester continues to have significant [...] up appt with cardiology later this m [facility]. I spent 30 minutes [...] | 2018 | Visit | | [address] | | | | | | [place], | | | | | | [place] [address] | | | | | | [phone] | | | | | | | | +--------+---------+ + + + | 07/30/ | Office | Cardiology | Agata Tinajero DO | | | 2020 | Visit | | [address] | | | | | | [place] | | | | | | [address] | | | | | | | [...] with | | | | | | nwttotdjtcnjr-Q3-N3 | | | | | | level [...] | Spinal stenosis of lumbar region with bhwobvyuqchfk-N7-R5 level moderately severe | | Spinal stenosis, lumbar region, without neurogenic claudication | + + documented in this encounter
--- OUTSIDE RECORDS SUMMARY | ~2019-05-12 | XMS | Encounter Summary ---
Demographics + + + | Address | [address] | | | [place] [address] | + + + | Home Phone [...] [place], | | | | | [place] [address] | | + + + + + | Kellen Briones | ECON | [place], [place] | | | | | [address] | | + + + + + Care Team Providers + +------+ + | Care Glass Etcher Helper Name | Role | Phone | [...] Thoracic or | [place], | [address] | | | | | lumbosacral | Tk Monreal MD | [place], | | | | | neuritis or | [address] | [place] | | | | | | [place] | [address] | | | | | radiculitis, | [place], [place] | Phone: | | | | | unspecified | [address] | [phone] | | | | | Procedures | Phone: | Fax: | | | | | [place] INJECT | [phone] | [phone] | | | | | ANES/STEROID | Fax: | | | | | | [place]AM[place] | [phone] | | | | | | LUMBAR/SACRA | | | | | | | [address] IMG | | | | | | | GUIDE ,1 | | | | | | | LEVEL [place] | | | | | | | [...] + + | 10/06/ | Hospital | [facility] | Tk Ann | Lumbar radiculopathy | | 2013 | Encounter | MED CTR XRAY [address] | T, [address] | | | | | [place] | ST [place], [place] | | | | | [place] [address] | [address] | | | | | [phone] | | | | | | | Printing Sales Representative, [place] | | +--------+ + + + [...] | | | | | | [place] [address] | | | | | | [phone] | | | | | | | | +--------+---------+ + + + | 07/30/ | Office | Cardiology | Tinajero Agata, DO | | | 2019 | Visit | | [address] | | | | | | [address] [place] | | | | | | [address] | | | | | | | [...] ICD-9 Code 724.4 Ms. Clementine Cortez | [facility] | | Annabella presents to the fluoroscopy suite for fluoroscopically-guided [facility] | | bilateral L5-S1 transforaminal epidural steroid [...] ST. | [address] | [place] | [phone] | | [facility] | | [address] | | | - IMAGING | | [...]
--- OUTSIDE RECORDS SUMMARY | ~2019-05-12 | XMS | Encounter Summary ---
Demographics + + + | Address | [address] | | | [place] [address] | + + + | Home Phone [...] [place], | | | | | [place] [address] | | + + + + + | Kellen Briones | ECON | [place] | | | | | [address] | | + + + + + Care Team Providers + +------+ + | Care Video Player Mechanic Name | Role | Phone | + +------+ + | Barb Marte | THANG | | + +------+ + Encounter Details +--------+ + + + + | Date | Type | Department | Care Team | Description | +--------+ + + + + | 12/29/ | Hospital | [facility] | Chavo Jacob, | DDD (degenerative | | 2019 | Encounter | MED CTR XRAY [address] | PA-C [address] | disc disease), | | | | [place] | [address] [place] | lumbar; Lumbar | | | | [place] [address] | [place] [address] | radiculopathy | | | | [phone] | [phone] | | | | | | | [...] | | | | | | [place] [address] | | | | | | [phone] | | | | | | | | +--------+---------+ + + + | 07/30/ | Office | Cardiology | Agata Tinajero DO | | | 2019 | Visit | | [address] | | | | | | [place] | | | | | | [address] | | | | | | | [...]
--- OUTSIDE RECORDS SUMMARY | ~2019-05-12 | XMS | Encounter Summary ---
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 She was evaluated by Dr. Lnogo at [facility]. 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 MRA of the head and neck was unremarkable for large v essel stenosis or occlusion. She also had EEG which showed mild diffuse slowing of the back ground without epileptiform discharges. She was seen by account manager employee benefits at [facility]. She reported that she had Holter monitoring [...] Stroke Syncope and collapse Cancer Breast Hyperlipidemia [place] (myocardial infarction) GERD (gastroesophageal reflux disease) Asthma Arthritis Lumbar radiculopathy 07/23/2012 DDD (degenerative disc disease), lumbar 07/23/2012 Spinal stenosis of lumbar region with ygaktqotnzgra-Y6-Q7 level moderately severe 2012 Facet arthritis of [...] She did have history of starting multiple EGG PRODUCER depressant medications since last February. These ep [...] | 2019 | Visit | | [address] | | | | | | [place], | | | | | | [place] [address] | | | | | | [phone] | | | | | | | | +--------+---------+ + + + | 07/30/ | Office | Cardiology | Agata Tinajero DO | | | 2020 | Visit | | [address] | | | | | | [place] | | | | | | [address] | | | | | | | [...]
--- OUTSIDE RECORDS SUMMARY | ~2019-05-12 | XMS | Encounter Summary ---
Demographics + + + | Address | [address] | | | [place] [address] | + + + | Home Phone [...] [place], | | | | | [place] [address] | | + + + + + | Kellen Briones | ECON | [place] | | | | | [address] | | + + + + + [...] lumbar (Primary Dx); | | | | [place], [place] | [place] [address] | Lumbar | | | | [address] | [phone] | radiculopathy | | | | [phone] | | | +--------+ + + + [...] | | | | | | [place] [address] | | | | | | [phone] | | | | | | | | +--------+---------+ + + + | 07/30/ | Office | Cardiology | Agata Tinajero DO | | | 2019 | Visit | | [address] | | | | | | [place] | | | | | | [address] | | | | | | | [...]
--- OUTSIDE RECORDS SUMMARY | ~2019-05-12 | XMS | Encounter Summary ---
Demographics + + + | Address | [address] | | | [place] [address] | + + + | Home Phone [...] [place], | | | | | [place] [address] | | + + + + + | Kellen Briones | ECON | [place], [place] | | | | | [address] | | + + + + + Care Team Providers + +------+ + | Care Cutting And Splicing Supervisor Name | Role | Phone | [...] + + | 09/30/ | Office | [facility] [place] | [place], | DDD (degenerative | | 2014 | Visit | PHYSIATRY [address] | AYAAN [address] | disc disease), | | | | [place], | [facility], | lumbar (Primary Dx); | | | | [place] [address] | [place] [address] | Spinal stenosis of | | | | [phone] | [phone] | lumbar region with | | | | | | gnpekwqmxrckp-N7-D4 | | | | | | level [...] of the procedure you must provide a test car driver to take you home. For all [...] spinal stenosis. Her last injection was in [facility] of this year. She reports that [...] and narcotic medications use; she currently uses [place], Flexeril and ga bapentin. Patient's medications, allergies, [...] deficits with short or long term care phlebotomist memory. She has appropriate fund of knowledge [...] 2. Spinal stenosis of lumbar region with djricvvnjlrak-E5-Z2 level moderately severe 3. Lumbar radiculopathy 4. [...] be performed by me in the [facility]. 2. I did not make [...] | 2019 | Visit | | [address] | | | | | | [place], | | | | | | [place] [address] | | | | | | [phone] | | | | | | | | +--------+---------+ + + + | 07/30/ | Office | Cardiology | Agata Tinajero DO | | 2019 | Visit | | [address] | | | | | | [place], [place] | | | | | | [address] | | | | | | | [...] presents to the fluoroscopy suite for fluoroscopically-guided [facility] | | bilateral L5-S1 transforaminal [...] [address] | [place] | [phone] | | [facility] | | [address] | | | - IMAGING | | | | + + + + + documented in this encounter Visit Diagnoses + + | Diagnosis | + + | DDD (degenerative disc disease), lumbar - Primary Degeneration of lumbar or | | lumbosacral intervertebral disc | + + | Spinal stenosis of lumbar region with nxkpbbmltcnxk-Z5-R0 level moderately severe | | Spinal stenosis, [...]
--- OUTSIDE RECORDS SUMMARY | ~2019-05-12 | XMS | Encounter Summary ---
Demographics + + + | Address | [address] | | | [place] [address] | + + + | Home Phone [...] [place], | | | | | [place] [address] | | + + + + + | Kellen Briones | ECON | [place], [place] | | | | | [address] | | + + + + + Care Team Providers + +------+ + | Care Um Specialist Name | Role | Phone | [...] + | 11/05/ | Telephone | [facility] | Irving Becerril, | Imaging Only | | 2017 | | NEUR[address]UR[address]ERY [address] | DO [address] | | | | | [address] | [address] [place], [place] | | | | | [place], [place] | [id number] | | | | | [address] | | | | | | [phone] | | | +--------+ + + + [...] | | | | | | [place] [address] | | | | | | [phone] | | | | | | | | +--------+---------+ + + + | 07/30/ | Office | Cardiology | Agata Tinajero DO | | | 2019 | Visit | | [address] | | | | | | [place] | | | | | | [address] | | | | | | | | +--------+---------+ + + + documented as of this encounter Visit Diagnoses Not on filedocumented in this encounter"
--- OUTSIDE RECORDS SUMMARY | ~2019-05-12 | XMS | Encounter Summary ---
Demographics + + + | Address | [address] | | | [place] [address] | + + + | Home Phone [...] [place], | | | | | [place] [address] | | + + + + + | Kellen Briones | ECON | [place], [place] | | | | | [address] | | + + + + + Care Team Providers + +------+ + | Care Accounting Recruiter Name | Role | Phone | + [...] + + | 05/07/ | Telephone | [facility] | Irving Becerril, | Paperwork | | 2016 | | NEUROSURGERY [address] | DO [address] | | | | | [address] | [address] [place], [place] | | | | | [place], [place] | [id number] | | | | | [address] | | | | | | [phone] | | | +--------+ + + + [...] | | | | | | [place] [address] | | | | | | [phone] | | | | | | | | +--------+---------+ + + + | 07/30/ | Office | Cardiology | Agata Tinajero DO | | | 2019 | Visit | | [address] | | | | | | [place] | | | | | | [address] | | | | | | | | +--------+---------+ + + + documented as of this encounter Visit Diagnoses Not on filedocumented in this encounter"
--- OUTSIDE RECORDS SUMMARY | ~2019-05-12 | XMS | Encounter Summary ---
Demographics + + + | Address | [address] | | | [place] [address] | + + + | Home Phone [...] [place], | | | | | [place] [address] | | + + + + + | Kellen Briones | ECON | [place], [place] | | | | | [address] | | + + + + + Care Team Providers + +------+ + | Care Extended Insurance Clerk Name | Role | Phone | [...] + | 10/02/ | Telephone | [facility] | Irving Becerril, | Imaging Only ([address] | | 2016 | | NEUROSURGERY [address] | DO [address] | xray ) | | | | [address] | [address] [place], [place] | | | | | [place], [place] | [address] | | | | | [address] | | | | | | [phone] | | | +--------+ + + + [...] [place] | | | | | [place] [address] | | | | | | [phone] | | | | | | | | +--------+---------+ + + + | 07/30/ | Office | Cardiology | Agata Tinajero DO | | | 2019 | Visit | | [address] | | | | | | [place] | | | | | | [address] | | | | | | | | +--------+---------+ + + + documented as of this encounter Visit Diagnoses Not on filedocumented in this encounter"
--- OUTSIDE RECORDS SUMMARY | ~2019-05-12 | XMS | Encounter Summary ---
Demographics + + + | Address | [address] | | | [place] [address] | + + + | Home Phone [...] [place], | | | | | [place] [address] | | + + + + + | Kellen Briones | ECON | [place], [place] | | | | | [address] | | + + + + + Care Team Providers + +------+ + | Care Hydroelectric Station Chief Name | Role | Phone | + [...] + + | 02/11/ | Office | [facility] | Mono Diaz, | Lumbar radiculopathy | | 2018 | Visit | PHYSIATRY [address] | PA-C [address] | (Primary Dx) | | | | [place], | [address] [place] | | | | | [place] [address] | [place] [address] | | | | | [phone] | [phone] | | | | | | | [...] of the procedure you must provide a intermodal truck driver to take you home. For [...] press against a nerve. Date Last Reviewed: 08/01/201719998012-5135 [employer]. [address] [place] [address], [place] [address]. All righ ts reserved. This information is [...] back symptoms. Recenlty patient was admitted to [facility]'s ED[facility]ICU for abnormal behavior which was originally treated as a str samantha, patient's daughter requested she be transferred to [facility] where patient was diagnosed w ith Serotonin [...] and narcotic medications use; she currently uses [place], Flexeril and ga bapentin. She is taking [...] PT (multiple sessions over the years) and personal care aide. Unfortunately Clementine Winchester continues to have significant [...] | | | | | | [place] [address] | | | | | | [phone] | | | | | | | | +--------+---------+ + + + | 07/30/ | Office | Cardiology | Agata Tinajero DO | | | 2019 | Visit | | [address] | | | | | | [place] | | | | | | [address] | | | | | | | [...]
--- OUTSIDE RECORDS SUMMARY | ~2019-05-12 | XMS | Encounter Summary ---
Demographics + + + | Address | [address] | | | [place] [address] | + + + | Home Phone [...] [place], | | | | | [place] [address] | | + + + + + | Kellen Briones | ECON | [place], [place] | | | | | [address] | | + + + + + Care Team Providers + +------+ + | Care Bicycle Designer Name | Role | Phone | [...] Thoracic or | [place], | [address] | | | | | lumbosacral | Tk Monreal MD | [place], | | | | | neuritis or | [address] | [place] | | | | | | [place] | [address] | | | | | radiculitis, | [place], [place] | Phone: | | | | | unspecified | [address] | [phone] | | | | | Procedures | Phone: | Fax: | | | | | [place] INJECT | [phone] | [phone] | | | | | ANES/STEROID | Fax: | | | | | | FORAM[place] | [phone] | | | | | | LUMBAR/SACRA [...] + + | 06/08/ | Hospital | [facility] | Tk Ann | Lumbar radiculopathy | | 2014 | Encounter | MED CTR XRAY [address] | T, [address] | (Primary Dx); DDD | | | | [place] | [place], [place] | (degenerative disc | | | | [place] [address] | [address] | disease), lumbar; | | | | [phone] | | Facet arthritis of | | | | | Trim Line Worker, [facility] | lumbar region-Most | | | | | | severe at | | | | | | L4-L5,L5-S1; Spinal | | | | | | stenosis of lumbar | | | | | | region with | | | | | | akkzmmbgicnnc-Q5-H7 | | | | | | level [...] | 2018 | Visit | | [address] | | | | | | [place], | | | | | | [place] [address] | | | | | | [phone] | | | | | | | | +--------+---------+ + + + | 07/30/ | Office | Cardiology | Agata Tinajero DO | | | 2019 | Visit | | [address] | | | | | | [place] | | | | | | [address] | | | | | | | [...] with | | | | | | iwmxxodutrlah-R0-D1 | | | | | | level [...] ICD-9 Code 724.4 Clementine Phoenix | [facility] | | [place] presents to the fluoroscopy suite for fluoroscopically-guided [facility] | | bilateral L5-S1 transforaminal [...] + + + + + | [facility] | [address] | [place] | [phone] | | [facility] | | [address] | | | - IMAGING | | [...] | Spinal stenosis of lumbar region with ifvnobznfypnn-C3-Q2 level moderately severe | | Spinal stenosis, [...]
--- OUTSIDE RECORDS SUMMARY | ~2019-05-12 | XMS | Encounter Summary ---
Demographics + + + | Address | [address] | | | [place] [address] | + + + | Home Phone [...] [place], | | | | | [place] [address] | | + + + + + | Kellen Briones | ECON | [place], [place] | | | | | [address] | | + + + + + Care Team Providers + +------+ + | Care Gold Stamper Name | Role | Phone | [...] + + | 03/05/ | Telephone | [facility] | Tk Ann | Other (Reschedule | | 2012 | | PHYSIATRY [address] | TMD [address] | injection) | | | | [place], | [place], [place] | | | | | [place] [address] | [address] | | | | | [phone] | | | +--------+ + + + [...] | | | | | | [place] [address] | | | | | | [phone] | | | | | | | | +--------+---------+ + + + | 07/30/ | Office | Cardiology | Agata Tinajero DO | | | 2019 | Visit | | [address] | | | | | | [place] | | | | | | [address] | | | | | | | | +--------+---------+ + + + documented as of this encounter Visit Diagnoses Not on filedocumented in this encounter"
--- OUTSIDE RECORDS SUMMARY | ~2019-05-12 | XMS | Encounter Summary ---
Demographics + + + | Address | [address] | | | [place] [address] | + + + | Home Phone [...] [place], | | | | | [place] [address] | | + + + + + | Kellen Briones | ECON | [place], [place] | | | | | [address] | | + + + + + Care Team Providers + +------+ + | Care Fisher Mussel Name | Role | Phone | + [...] + | 01/23/ | Telephone | [facility] | Mono Diaz, | Results, Imaging | | 2017 | | PHYSIATRY [address] | PA-C [address] | | | | | [place], | [address] [place] | | | | | [place] [address] | [place] [address] | | | | | [phone] | [phone] | | | | | | | [...] | | | | | | [place] [address] | | | | | | [phone] | | | | | | | | +--------+---------+ + + + | 07/30/ | Office | Cardiology | Agata Tinajero DO | | | 2019 | Visit | | [address] | | | | | | [place] | | | | | | [address] | | | | | | | | +--------+---------+ + + + documented as of this encounter Visit Diagnoses Not on filedocumented in this encounter"
--- OUTSIDE RECORDS SUMMARY | ~2019-05-12 | XMS | Encounter Summary ---
Demographics + + + | Address | [address] | | | [place] [address] | + + + | Home Phone [...] [place], | | | | | [place] [address] | | + + + + + | Kellen Briones | ECON | [place], [place] | | | | | [address] | | + + + + + Care Team Providers + +------+ + | Care Batter Scaler Name | Role | Phone | + [...] + + | 05/17/ | Office | [facility] | Chavo Jacob, | Status post cervical | | 2016 | Visit | NEUROSURGERY [address] | PA-C [address] | spinal fusion | | | | [address] | [address] [place] | (Primary Dx) | | | | [place] | [place] [address] | | | | | [address] | [phone] | | | | | [phone] | | | +--------+---------+ + + + [...] encounter Patient Instructions Patient Instructions Perico Hearn, Rod Straightener - 05/17/2016 11:43 AM PSTYou may now [...] your back and use good technique when mushroom picker things and bending. documented in this encounter Progress Notes Chavo Jacob PA - 05/17/2016 11:41 AM PSTFormatting of this note might be different f rom the original. Perico Hearn, Requirements Engineer [address] [facility], [address] [place], [place] [address] FAX: NEUROSURGERY FOLLOW-UP CHIEF COMPLAINT: Chief Complaint [...] (HCC) Hypertension Cancer (HCC) Right breast Hyperlipidemia [place] (myocardial infarction) ([facility]) GERD (gastroesophageal reflux disease) Asthma Arthritis Lumbar radiculopathy 07/23/2012 DDD (degenerative disc disease), lumbar 07/23/2012 Spinal stenosis of lumbar region with esdbmsuylmewu-M9-E1 level moderately severe 2012 Facet arthritis of [...] | | | | | [place] [address] | | | | | | [phone] | | | | | | | | +--------+---------+ + + + | 07/30/ | Office | Cardiology | Agata Tinajero DO | | | 2019 | Visit | | [address] | | | | | | [place] | | | | | | [address] | | | | | | | [...]
--- OUTSIDE RECORDS SUMMARY | ~2019-05-12 | XMS | Encounter Summary ---
Demographics + + + | Address | [address] | | | [place] [address] | + + + | Home Phone [...] [place], | | | | | [place] [address] | | + + + + + | Kellen Briones | ECON | [place], [place] | | | | | [address] | | + + + + + Care Team Providers + +------+ + | Care Electric Drill Operator Name | Role | Phone | [...] | | | | lumbar | [place] [address] | [address] Phone: | | | | | region DDD | Phone: | [phone] | | | | | (degenerativ | [phone] | Fax: | | | | | e disc | Fax: | [phone] | | | | | disease), | [phone] | | | | | | lumbar [...] + + | 12/29/ | Office | [facility] | Leonard Terrazas | Back pain, | | 2019 | Visit | NEUROSURGERY [address] | MD Di [address] | unspecified back | | | | [address] | [address] [facility] | location, | | | | [place] | [facility] [place] [address] | unspecified back | | | | [address] | [phone] | pain laterality, | | | | [phone] | | unspecified | | | | [...] encounter Patient Instructions Patient Instructions Silvia Sun Cuff Folder - 12/29/2018 1:45 PM PDT You will need to get preoperative clearance from your primary care provider as well as your hair assistant if you have one. If you decide [...] 12/29/2018 1:45 PM PDT Leonard Terrazas MD [address] [place] [address], [address] [place] [address] PHONE: FAX: NEUROSURGERY HISTORY AND PHYSICAL EXAMINATION [...] reflux disease) Hyperlipidemia Hypertension Lumbar radiculopathy 07/23/2012 [place] (myocardial infarction) (HCC) Neck pain on right side 05/13/2013 Oxygen dependent 2 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 Snoring Spinal stenosis of lumbar region with wbrwzrqfrgmdh-A4-U2 level moderately severe 2012 PAST SURGICAL HISTORY: Past Surgical History: Procedure Laterality Date BELPHAROPTOSIS REPAIR 2009 bilateral bone spur left foot BREAST RECONSTRUCTION 9895-9967 About 10 surgeries CARPAL TUNNEL RELEASE Bilateral CERVICAL SPINE SURGERY Anterior 03/30/2016 Procedure: C3-4, C4-5, C5-6, C6-7 Anterior Cervical Discectomy w/ Fusion and Plating; Bryan geon: Irving Becerril, DO; Location: [facility] MAIN OR CORONARY ARTERY BYPASS [...] has no apparent deficits with short or equipment operator intermodal yard memory. CRANIAL NERVES: II: Acuity is intact. [...] reflux disease) Hyperlipidemia Hypertension Lumbar radiculopathy 07/23/2012 [place] (myocardial infarction) (HCC) Neck pain on right side 05/13/2013 Oxygen dependent 2 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 Snoring Spinal stenosis of lumbar region with uehtdeuymcipm-X2-M0 level moderately severe 2012 PLAN: Clementine Winchester [...] | | | | | | [place] [address] | | | | | | [phone] | | | | | | | | +--------+---------+ + + + | 07/30/ | Office | Cardiology | Agata Tinajero DO | | | 2019 | Visit | | [address] | | | | | | [place] | | | | | | [address] | | | | | | | [...]
--- OUTSIDE RECORDS SUMMARY | ~2019-05-12 | XMS | Encounter Summary ---
Demographics + + + | Address | [address] | | | [place] [address] | + + + | Home Phone [...] [place], | | | | | [place] [address] | | + + + + + | Kellen Briones | ECON | [place] | | | | | [address] | | + + + + + Care Team Providers + +------+ + | Care Print Room Worker Name | Role | Phone | + +------+ + | Barb Marte | PCP | | + +------+ + Encounter Details +--------+ + + + + | Date | Type | Department | Care Team | Description | +--------+ + + + + | 01/31/ | Hospital | [facility] IP | Conversion | Pain | | 2018 | Encounter | CONVERSION [address] | Transaction, | | | | | [address] | Provider Unknown | | | | | [place], [place] | [phone] | | | | | [address] | | | | | | [phone] | | | +--------+ + + + [...] | | | | | | [place] [address] | | | | | | [phone] | | | | | | | | +--------+---------+ + + + | 07/30/ | Office | Cardiology | Agata Tinajero DO | | | 2019 | Visit | | [address] | | | | | | [place] | | | | | | [address] | | | | | | | [...]
--- OUTSIDE RECORDS SUMMARY | ~2019-05-12 | XMS | Encounter Summary ---
Demographics + + + | Address | [address] | | | [place] [address] | + + + | Home Phone [...] [place], | | | | | [place] [address] | | + + + + + | Kellen Briones | ECON | [place], [place] | | | | | [address] | | + + + + + Care Team Providers + +------+ + | Care Credit Associate Name | Role | Phone | [...] Thoracic or | [place], | [address] | | | | | lumbosacral | Tk Monreal MD | [place], | | | | | neuritis or | [address] | [place] | | | | | | [place] | [address] | | | | | radiculitis, | [place], [place] | Phone: | | | | | unspecified | [address] | [phone] | | | | | Procedures | Phone: | Fax: | | | | | [place] INJECT | [phone] | [phone] | | | | | ANES/STEROID | Fax: | | | | | | FORAMEN | [phone] | | | | | | LUMBAR/SACRA | | | | | | | L W IMG | | | | | | | GUIDE ,1 | | | | | | | LEVEL NE | | | | | | | [...] + + | 02/02/ | Hospital | [facility] | [place], | Spinal stenosis of | | 2013 | Encounter | MED CTR XRAY [address] | [place] [address] | lumbar region with | | | | [address] [place] | [facility], | sfkuwwiafapau-D4-Y1 | | | | [place] [address] | [place] [address] | level moderately | | | | [phone] | [phone] | severe (Primary Dx); | | | | | | Spondylolisthesis | | | | | Tk Ann, | of lumbar region; | | | | | MD [address] | Lumbar radiculopathy | | | | | [place] | | | | | | [id number] | | | | | | | | | | | | Cna HhaJordan | | +--------+ + + + + [...] | 2018 | Visit | | [address] | | | | | | [place] | | | | | | [place] [address] | | | | | | [phone] | | | | | | | | +--------+---------+ + + + | 07/30/ | Office | Cardiology | Agata Tinajero DO | | | 2019 | Visit | | [address] | | | | | | [place] | | | | | | [address] | | | | | | | [...] | | TRANSFORAMINAL | | PDT | [id number]-I8-W5 | results section. | | | | [...] radiculopathy ICD-9 Code 724.4 Clementine Phoenix | [facility] | | Annabella presents to [...] | + + + + + | [address] | [address] | [place] | [phone] | | [facility] | | [address] | | | - IMAGING | | | | + + + + + documented in this encounter Visit Diagnoses + + | Diagnosis | + + | Spinal stenosis of lumbar region with gvbipygdkxleq-E4-Q7 level moderately severe - | | Primary [...]
--- OUTSIDE RECORDS SUMMARY | ~2019-05-12 | XMS | Encounter Summary ---
Demographics + + + | Address | [address] | | | [place] [address] | + + + | Home Phone [...] [place], | | | | | [place] [address] | | + + + + + | Kellen Briones | ECON | [place] | | | | | [address] | | + + + + + Care Team Providers + +------+ + | Care Ancillary Services Manager Therapy Name | Role | Phone | + +------+ + | Barb Marte | THANG | | + +------+ + Encounter Details +--------+ + + + + | Date | Type | Department | Care Team | Description | +--------+ + + + + | 01/17/ | Imaging | LUIS MANUELNJJosiane CARLOS REINALDO | Provider, | | | 2018 | Exam | MED CTR EXTERNAL | [address] | | | | | IMAGING | [place] | | | | | [phone] | [place] [address] | | +--------+ + + + + [...] | | | | | | [place] [address] | | | | | | [phone] | | | | | | | | +--------+---------+ + + + | 07/30/ | Office | Cardiology | TinajeroAgata joshiDO | | | 2019 | Visit | | [address] | | | | | | [place] | | | | | | [address] | | | | | | | [...]
--- OUTSIDE RECORDS SUMMARY | ~2019-05-12 | XMS | Encounter Summary ---
Demographics + + + | Address | [address] | | | [place] [address] | + + + | Home Phone [...] [place], | | | | | [place] [address] | | + + + + + | Kellen Briones | ECON | [place], [place] | | | | | [address] | | + + + + + Care Team Providers + +------+ + | Care Renewals Specialist Name | Role | Phone | [...] | CONVERSION DEP [address] | | Episd ([facility]) | | | | [address] | | | | 07/14/ | | [place] | | | | 2009 | | [address] | | | | | | [phone] | | | +--------+ + + + [...] | 2018 | Visit | | [address] | | | | | | [place] | | | | | | [place] [address] | | | | | | [phone] | | | | | | | | +--------+---------+ + + + | 07/30/ | Office | Cardiology | Agata Tinajero DO | | | 2019 | Visit | | [address] | | | | | | [place] | | | | | | [phone] | | | | | | | [...] + + + | [facility] | | | [facility] [address] | | | , | | | [id number]/RADIOLOGY Patient Name: CLEMENTINE NUNEZ Date of : | | | 1940 Medical Record: [id number] Account: [id number] | | | I/P/CU [id number]/ Exam Date/Time: 07/12/2009 | | | 05:00 [...] good position in the SVC. The prior Matador-Gideon catheter | | | has been removed. [...] 11:16 P | | | P P SLW/dc/[id number]/ | | | cc: MD ANUJ PERLA MD STEVEN L | | | MD MARYANN | | + + + + + | Procedure Note | + + | Nilay Lawrence Conversion - 01/25/2019 5:24 PM PDT | | [facility] | | [facility] [address] | | , | | | | [id number]/RADIOLOGY | | | | Patient Name: CLEMENTINE NUNEZ | | Date of : 1940 | | Medical Record: [id number] | | Account: [id number] | | I/P/CU [id number]/ | | | | | | Exam [...] in the SVC. | | The prior Matador-Gideon catheter has been removed. No obvious mediastinal [...] | P | | P | | GLENDY/imtiaz/[id number]/ | | cc: ROSALVA LOZADA MD | | ANUJ GALLEGO MD | | ARAVIND WOLF MD | + + XR Chest 1 Vw (07/10/2009 5:33 AM PST) + + | Specimen | + + | | + + + + + | Narrative | Performed At | + + + | [facility] | | | [facility] [address] | | | , | | | [id number]/RADIOLOGY Patient Name: CLEMENTINE NUNEZ Date of : | | | 1940 Medical Record: [id number] Account: [id number] | | | [place] [id number]/ Exam Date/Time: 07/10/2009 | | | 05:00 [...] 09:49 A | | | A A CHARMAINE/britni/[id number]/ | | | cc: MD FAISAL PERLA MD SAAD | | | MD CHRIS | | + + + + + | Procedure Note | + + | Nilay Lawrence Conversion - 01/25/2019 5:24 PM PDT | | [facility] | | [facility] [address] | | , | | | | [id number]/RADIOLOGY | | | | Patient Name: CLEMENTINE NUNEZ | | Date of : 1940 | | Medical Record: [id number] | | Account: [id number] | | I/P/ 27902/ | | | | | | Exam [...] | A | | A | | [facility]//[id number]/ | | cc: ROSALVA LOZADA MD | | FAISAL RUELAS MD | | ANUJ GALLEGO MD | + + XR Chest 1 Vw (07/09/2009 12:25 PM PST) + + | Specimen | + + | | + + + + + | Narrative | Performed At | + + + | [facility] | | | [facility] [address] | | | , | | | [id number]/RADIOLOGY Patient Name: CLEMENTINE NUNEZ Date of : | | | 1940 Medical Record: [id number] Account: [id number] | | | I/P/[facility] / Exam Date/Time: 07/09/2009 | | [...] | overlying the stomach. A right sided Matador-Gideon catheter is seen with | | | [...] 3 cm. 2. Right sided central line, Matador-Gideon | | | catheter, left sided chest [...] | | | 05:09 P /[facility]/[id number]/ cc: MD VERONICA PERLA | | | DO ANUJ LOPEZ MD | | + + + + + | Procedure Note | + + | Nilay Lawrence Conversion - 01/25/2019 5:24 PM PDT | | [facility] | | [facility] [address] | | , | | | | [id number]/RADIOLOGY | | | | Patient Name: CLEMENTINE NUNEZ | | Date of : 1940 | | Medical Record: [id number] | | Account: [id number] | | I/P/ALFREDO / | | | [...] the stomach. A right | | sided Matador-Gideon catheter is seen with its tip in [...] | | 2. Right sided central line, Matador-Gideon catheter, left sided chest tube | | [...] | P | | P | | EI/sandra/[id number]/ | | cc: ROSALVA LOZADA MD | [...] that was | | | non-reportable in [employer] system. | | + + + + + | Procedure Note | + + | Nilay Lawrence Conversion - 01/25/2019 5:24 PM PDT See medical record for report. This is | | a converted record that was non-reportable in [employer] system. | + + XR Chest 2 Vws (07/08/2009 12:33 PM PST) + + | Specimen | + + | | + + + + + | Narrative | Performed At | + + + | [facility] | | | [facility] [address] | | | , | | | [id number]/RADIOLOGY Patient Name: CLEMENTINE NUNEZ Date of : | | | 1940 Medical Record: [id number] Account: [id number] | | | I/P/MADIHA [address]/ Exam Date/Time: 07/08/2009 | | | 11:50 [...] 08:59 A | | | P A SCK/dj/[id number]/ | | | cc: JIM SANCHEZ MD | | | ANUJ GALLEGO MD | | + + + + + | Procedure Note | + + | Nilay Lawrence - 01/25/2019 5:24 PM PDT | | [facility] | | [facility] [address] | | , | | | | [id number]/RADIOLOGY | | | | Patient Name: CLEMENTINE NUNEZ | | Date of : 1940 | | Medical Record: [id number] | | Account: [id number] | | I/P/CU 01909/ | | | | | | Exam [...] | P | | A | | ALK/dj/[id number]/ | | cc: JIM SANCHEZ | | MARCIA MOTLEY MD | | ANUJ GALLEGO MD | + + ECHO Complete (07/07/2009 2:30 PM PST) + + | Specimen | + + | | + + + + + | Narrative | Performed At | + + + | [id number] | | | Page 1 ECHO [facility] NAME: | | | [place] [address] MEDICAL RECORD #: | | | [id number] | | | DATE OF : 1940 ORDER | | | NUMBER: [id number] EXAM DATE/TIME: 07/07/2009 13:49 PERFORMING | | [...] 56.72 ml D-E Excursion: 1.44 cm E-F [place]: 0.04 | | | m/s EPSS: 0.76 [...] TV A Obed: 0.65 m/s TV Dec [place]: 1.90 m/s2 TV Dec Time: | | | 260.30 ms TV E Obed: 0.49 m/s TV E/A Ratio: 0.75 | | | Text Transcriber: EZEKIEL Authenticated by: Anuj Gallego MD Report Date/Time: | | | 07-08-2009 08:56:44 | | + + + + + | Procedure Note | + + | Nilay Lawrence - 01/25/2019 5:24 PM PDT [id number] | | Page [address] [place] [address] NAME: MAYRA A[place] RODRIGUEZ | | [id number] : ACCOUNT #: | | [id number]: DATE OF : 2ORDER NUMBER: | | [id number] DATE/TIME: 07/07/2009 13:49PERFORMING PHYSICIAN: Anuj Gallego MDORDER [...] mlLAESV Index (A-L): 19.90 ml/m2LAAs A2C: 16.02 [id number] A-L | | A2C: 39.78 mlLALs A2C: 5.48 cmLAAs A4C: 13.91 [id number] A-L A4C: 30.58 mlLALs | | A4C: 5.37 cmAo Diam: 2.60 cmAV Cusp: 1.30 cmLA Diam: 3.63 cmLA/Ao: 1.39%FS: | | 37.5 %EDV(Teich): 83.61 mlEF(Teich): 67.83 %ESV(Teich): 26.89 mlIVSd: 1.04 | | cmIVSs: 1.27 cmLVIDd: 4.31 cmLVIDs: 2.69 cmLVPWd: 1.04 cmLVPWs: 1.27 | | cmSV(Teich): 56.72 mlD-E Excursion: 1.44 cmE-F [place]: 0.04 m/sEPSS: 0.76 cmIVC | | diameter: 1.27 cmIVC collapse: 0.31 cmIVC % collapse: 73.72 %HR: 81.96 BPMAV | | maxP.03 mmHgAV meanP.44 mmHgAV Vmax: 1.50 m/Shreyas Vmean: 0.99 m/Shreyas VTI: | | 26.02 cmAVA Vmax: 1.39 cm2AVA (VTI): 1.60 ql9QXHZ Dopp: 1.83 l/xcmo3DFGJ Dopp: | | 3.25 l/minHR: 78.02 BPMLVOT [...] A Obed: | | 0.65 m/sTV Dec [place]: 1.90 m/s2TV Dec Time: 260.30 msTV E Obed: 0.49 m/sTV E/A | | Ratio: 0.75 Text Transcriber: MIKAuthenticated by: Anuj JOHNSONeport Date/Time: | | [...] | |D-E Excursion: 1.44 cm | |E-F [place]: 0.04 m/s | |EPSS: 0.76 cm | [...] A Obed: 0.65 m/s | |TV Dec [place]: 1.90 m/s2 | |TV Dec Time: 260.30 ms | |TV E Obed: 0.49 m/s | |TV E/A Ratio: 0.75 | | | |Text Transcriber: EZEKIEL | |Authenticated by: Anuj Gallego MD | |Report Date/Time: 07-08-2009 08:56:44 | + + US Veins Extremiity Bilateral (07/07/2009 2:10 PM PST) + + | Specimen | + + | | + + + + + | Narrative | Performed At | + + + | [facility] | | | [facility] [address] | | | , | | | [id number]/RADIOLOGY Patient Name: CLEMENITNE NUNEZ Date of : | | | 1940 Medical Record: [id number] Account: [id number] | | | I/P/MADIHA [id number]/ Exam Date/Time: 07/07/2009 | | | 08:00 [...] 09:58 P P | | | P SCK/gracie/[id number]/ cc: MARCIA MOTLEY MD | | | ANUJ GALLEGO MD | | + + + + + | Procedure Note | + + | Nilay Lawrence Conversion - 01/25/2019 5:24 PM PDT | | [facility] | | [facility] [address] | | , | | | | [id number]/RADIOLOGY | | | | Patient Name: CLEMENTINE NUNEZ | | Date of : 1940 | | Medical Record: [id number] | | Account: [id number] | | I/P/CU [address]6026/ | | | | | | Exam [...] | P | | P | | CASIMIRO/gracie/[id number]/ | | cc: MARCIA MOTLEY MD | | ANUJ GALLEGO MD | + + VAS Carotid Duplex Bilateral (07/07/2009 2:01 PM PST) + + | Specimen | + + | | + + + + + | Narrative | Performed At | + + + | [facility] | | | [facility] [address] | | | , | | | [id number]/RADIOLOGY Patient Name: CLEMENTINE NUNEZ Date of : | | | 1940 Medical Record: [id number] Account: [id number] | | | I/P/ [address]9434/ Exam Date/Time: 07/07/2009 | | | 08:00 A Ordering Provider: ANUJ GALLEGO Order Detail: [id number] / | | | / [facility] Exam Description: US CAROTID DOPPLER | | [...] P P | | | 02:33 P ALChi/gracie/[id number]/ cc: MD ANUJ TEMPLETON | | | MD CHRIS | | + + + + + | Procedure Note | + + | Nilay Lawrence - 01/25/2019 5:24 PM PDT | | [facility] | | [facility] [address] | | , | | | | [id number]/RADIOLOGY | | | | Patient Name: CLEMENTINE NUNEZ | | Date of : 1940 | | Medical Record: [id number] | | Account: [id number] | | I/P/ 58536/ | | | | | | Exam [...] | P | | P | | [facility]/silke/[id number]/ | | cc: MARCIA MOTLEY MD | | ANUJ GALLEGO MD | + + CV CARDIAC PROCEDURE (07/06/2009 4:45 PM PST) + + | Specimen | + + | | + + + + + | Narrative | Performed At | + + + | [facility] | | | [facility] [address] | | | , | | | [id number]/CARDIOLOGY Patient Name: CLEMENTINE NUNEZ Date of : | | | 1940 Medical Record: [id number] Account: [id number] | | | Rajiv/Brendon/MADIHA [address]/ Exam Date/Time: 07/06/2009 | | | 03:41 [...] for possible closure device deployment. 5. A 6-British Mynx | | | closure device deployment at the right arteriotomy site. | | | INDICATIONS The patient is a very pleasant 69-year-old lady | | | who was recently admitted at [facility] after an episode | | | of chest pain. The patient was ruled out for a myocardial infarction | | | and discharged and subsequently was advised to have a stress test at | | | [facility] which was significantly abnormal, | | [...] with 1% | | | lidocaine. A 6-British vascular sheath was inserted in the right [...] was pulled, and | | | a 6-British Mynx closure device was deployed at the [...] | segment and was filling distally via qlue-te-aiigf collaterals. | | | LEFT VENTRICULOGRAM Left [...] A | | | 09:51 P A /yoana/[id number]/ cc: CHING Sevilla | | | MD ANUJ DAI MD | | + + + + + | Procedure Note | + + | Nilay Lawrence Conversion - 01/25/2019 5:24 PM PDT | | [facility] | | [facility] [address] | | , | | | | [id number]/CARDIOLOGY | | | | Patient Name: CLEMENTINE NUNEZ | | Date of : 1940 | | Medical Record: [id number] | | Account: [id number] | | I/P/ [id number]/ | | | | | | Exam [...] closure device deployment. | | 5. A 6-British Mynx closure device deployment at the right arteriotomy | | site. | | | | INDICATIONS | | The patient is a very pleasant 69-year-old lady who was | | recently admitted at [facility] after an episode of chest | | pain. The patient was ruled out for a myocardial infarction and | | discharged and subsequently was advised to have a stress test at [facility] | | [facility] which was significantly abnormal, revealing [...] groin | | with 1% lidocaine. A 6-British vascular sheath was inserted in the right [...] sheath. The sheath was pulled, and a 6-British Mynx closure device was | | deployed [...] | segment and was filling distally via omvi-mo-ikxqx collaterals. | | | | LEFT VENTRICULOGRAM [...] | P | | A | | /yoana/[id number]/ | | cc: CHING DAI MD | | ANUJ GALLEGO MD | + + documented in this encounter Visit Diagnoses + + | Diagnosis | + + | Acute myocardial infarction, subendocardial infarction, initial episode of care (HCC) | | Acute myocardial infarction, subendocardial infarction, initial episode of care | + + documented in this encounter"
--- OUTSIDE RECORDS SUMMARY | ~2019-05-12 | XMS | Encounter Summary ---
Demographics + + + | Address | [address] | | | [place] [address] | + + + | Home Phone [...] [place], | | | | | [place] [address] | | + + + + + | Kellen Briones | ECON | [place], [place] | | | | | [address] | | + + + + + Care Team Providers + +------+ + | Care Nail Sticker Name | Role | Phone | + [...] + + | 05/11/ | Office | [facility] | Tk Ann | Neck pain on right | | 2012 | Visit | PHYSIATRY [address] | T, [address] | side (Primary Dx); | | | | [place], | [place], [place] | Facet arthritis of | | | | [place] [address] | [address] | cervical region; DDD | | | | [phone] | | (degenerative disc | | | [...] with | | | | | | hgglhaqfhlhpk-W2-A4 | | | | | | level [...] of the procedure you must provide a cab driver to take you home. For all [...] had actually been seeing Dr. Jordan in [place] for the neck issues and was scheduled [...] 8. Spinal stenosis of lumbar region with mylrjoivettpu-B7-M5 level moderately severe 9. Facet arthritis of [...] extension x-rays of the lumbar spine at [facility]. 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
--- OUTSIDE RECORDS SUMMARY | ~2019-05-12 | XMS | Encounter Summary ---
Demographics + + + | Address | [address] | | | [place] [address] | + + + | Home Phone [...] [place], | | | | | [place] [address] | | + + + + + | Kellen Briones | ECON | [place], [place] | | | | | [address] | | + + + + + Care Team Providers + +------+ + | Care Director Supply Chain Name | Role | Phone | + [...] + + | 01/23/ | Telephone | [facility] | Mono Diaz, | Results, Imaging | | 2017 | | PHYSIATRY [address] | PA-C [address] | | | | | [place], | [address] [place] | | | | | [place] [address] | [place] [address] | | | | | [phone] | [phone] | | | | | | | [...] | | | | | | [place] [address] | | | | | | [phone] | | | | | | | | +--------+---------+ + + + | 07/30/ | Office | Cardiology | Agata Tinajero DO | | | 2019 | Visit | | [address] | | | | | | [place] | | | | | | [address] | | | | | | | | +--------+---------+ + + + documented as of this encounter Visit Diagnoses Not on filedocumented in this encounter"
--- OUTSIDE RECORDS SUMMARY | ~2019-05-12 | XMS | Encounter Summary ---
Demographics + + + | Address | [address] | | | [place] [address] | + + + | Home Phone [...] [place], | | | | | [place] [address] | | + + + + + | Kellen Briones | ECON | [place] | | | | | [address] | | + + + + + Care Team Providers + +------+ + | Care Industrial Manufacturing Technician Name | Role | Phone | [...] [address] | [address] [place], [place] | (Primary Dx) | | | | [place], [place] | [address] | | | | | [address] | | | | | | [phone] | | | +--------+ + + + [...] | 2018 | Visit | | [address] | | | | | | [place] | | | | | | [place] [address] | | | | | | [phone] | | | | | | | | +--------+---------+ + + + | 07/30/ | Office | Cardiology | Agata Tinajero DO | | | 2019 | Visit | | [address] | | | | | | [place] | | | | | | [address] | | | | | | | [...] Address | City/State[facility] | Phone Number | | [...]
--- OUTSIDE RECORDS SUMMARY | ~2019-05-12 | XMS | Encounter Summary ---
Demographics + + + | Address | [address] | | | [place] [address] | + + + | Home Phone [...] [place], | | | | | [place] [address] | | + + + + + | Kellen Briones | ECON | [place], [place] | | | | | [address] | | + + + + + Care Team Providers + +------+ + | Care Marketing Program Coordinator Name | Role | Phone | [...] + + | 10/18/ | Office | [facility] | [place], | Cervical stenosis of | | 2016 | Visit | PHYSIATRY [address] | [place] [address] | spinal canal | | | | [place], | [facility], | (Primary Dx); | | | | [place] [address] | [place] [address] | Spondylolisthesis of | | | | [phone] | [phone] | cervical region; | | | | | | 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 For all [...] and narcotic medications use; she currently uses [place], Flexeril and ga bapentin. Patient's medications, allergies, [...] 5. Spinal stenosis of lumbar region with qndayzueqqzfi-E6-L0 level moderately severe 6. Facet arthritis of [...] | 2019 | Visit | | [address] | | | | | | [place], | | | | | | [place] [address] | | | | | | [phone] | | | | | | | | +--------+---------+ + + + | 07/30/ | Office | Cardiology | Agata Tinajero DO | | | 2020 | Visit | | [address] | | | | | | [place], [place] | | | | | | [address] | | | | | | | [...] Arthritis ICD-10 Code M43.12 Clementine Winchester | [facility] | | presents to the fluoroscopy suite for fluoroscopically-guided | [facility] | | bilateral right C3, [...] ST. | [address] | [place] | [phone] | | [facility] | | [address] | | | - IMAGING | | [...] radiculopathy ICD-10 Code M54.16 Clementine | [facility] | | Lizett Winchester presents to the fluoroscopy suite for [facility] | | fluoroscopically-guided bilateral L5-S1 [...] [address] | [place] | [phone] | | [facility] | | [address] | | | - IMAGING | | [...] | Spinal stenosis of lumbar region with acmtouqmfkump-R1-T3 level moderately severe | | Spinal stenosis, [...]
--- OUTSIDE RECORDS SUMMARY | ~2019-05-12 | XMS | Encounter Summary ---
Demographics + + + | Address | [address] | | | [place] [address] | + + + | Home Phone [...] [place], | | | | | [place] [address] | | + + + + + | Kellen Briones | ECON | [place], [place] | | | | | [address] | | + + + + + Care Team Providers + +------+ + | Care Screwhead Stoner And Polisher Name | Role | Phone | [...] + | 03/07/ | Telephone | [facility] | Irving Becerril, | Other (Pre op meds | | 2016 | | NEUROSURGERY [address] | DO [address] | to stop) | | | | [address] | [address] [place], [place] | | | | | [place], [place] | [id number] | | | | | [address] | | | | | | [phone] | | | +--------+ + + + [...] | | | | | | [place] [address] | | | | | | [phone] | | | | | | | | +--------+---------+ + + + | 07/30/ | Office | Cardiology | Agata Tinajero DO | | | 2019 | Visit | | [address] | | | | | | [place] | | | | | | [address] | | | | | | | | +--------+---------+ + + + documented as of this encounter Visit Diagnoses Not on filedocumented in this encounter"
--- OUTSIDE RECORDS SUMMARY | ~2019-05-12 | XMS | Encounter Summary ---
Demographics + + + | Address | [address] | | | [place] [address] | + + + | Home Phone [...] [place], | | | | | [place] [address] | | + + + + + | Kellen Briones | ECON | [place], [place] | | | | | [address] | | + + + + + Care Team Providers + +------+ + | Care Laborer General Name | Role | Phone | + [...] + + | 08/28/ | Telephone | [facility] | Patrick Gaffney MD [address] | Results | | 2012 | | NEUROLOGY [place] | [facility] | | | | | [address] [facility], | [address] [place], | | | | | [address] [place] | [place] [address] | | | | | [place] [address] | [phone] | | | | | [phone] | | | +--------+ + + + [...] | | | | | | [place] [address] | | | | | | [phone] | | | | | | | | +--------+---------+ + + + | 07/30/ | Office | Cardiology | Agata Tinajero DO | | | 2019 | Visit | | [address] | | | | | | [place] | | | | | | [address] | | | | | | | | +--------+---------+ + + + documented as of this encounter Visit Diagnoses Not on filedocumented in this encounter"
--- OUTSIDE RECORDS SUMMARY | ~2019-05-12 | XMS | Encounter Summary ---
Demographics + + + | Address | [address] | | | [place] [address] | + + + | Home Phone [...] [place], | | | | | [place] [address] | | + + + + + | Kellen Briones | ECON | [place], [place] | | | | | [address] | | + + + + + Care Team Providers + +------+ + | Care Pet Technologist Name | Role | Phone | [...] | Lumbar | [place], | [address] | | | | | radiculopath | Tk Monreal MD | [place], | | | | | y | [address] | [place] | | | | | Procedures | [place] | [address] | | | | | [place] INJECT | [place], [place] | Phone: | | | | | ANES/STEROID | [address] | [phone] | | | | | FORAMEN | Phone: | Fax: | | | | | LUMBAR/SACRA | [phone] | [phone] | | | | | L W IMG | Fax: | | | | | | GUIDE ,1 | [phone] | | | | | | LEVEL [...] + + | 09/29/ | Hospital | [facility] | Mono Diaz, | Lumbar radiculopathy | | 2019 | Encounter | MED CTR XRAY [address] | PA-C [address] | | | | | [place] | [address] [place] | | | | | [place] [address] | [place] [address] | | | | | [phone] | [phone] | | | | | | | | | | | | President [employer] | | +--------+ + + + [...] | | | | | | [place] [address] | | | | | | [phone] | | | | | | | | +--------+---------+ + + + | 07/30/ | Office | Cardiology | Agata TinajeroDO | | | 2019 | Visit | | [address] | | | | | | [place] | | | | | | [address] | | | | | | | [...] Performing | Address | City/State[facility] | Phone Number | | Organization | [...]
--- OUTSIDE RECORDS SUMMARY | ~2019-05-12 | XMS | Encounter Summary ---
Demographics + + + | Address | [address] | | | [place] [address] | + + + | Home Phone [...] [place], | | | | | [place] [address] | | + + + + + | Kellen Briones | ECON | [place], [place] | | | | | [address] | | + + + + + Care Team Providers + +------+ + | Care Help Desk Rep Name | Role | Phone | + [...] | | | | [place], | [place] [address] | | | | | | [place] [address] | Phone: | | | | | | Phone: | [phone] | | | | | | [phone] | Fax: | | | | | | Fax: | [phone] | | | | | | [phone] | | +--------+ + + + + [...] + + | 09/03/ | Office | [facility] | Patrick Gaffney MD [address] | Mental status change | | 2012 | Visit | [facility] [place] | [address] | (Primary Dx); Sleep | | | | [address] [facility], | [address] [place], | disorder | | | | [address] [place] | [place] [address] | | | | | [place] [address] | [phone] | | | | | [phone] | | | +--------+---------+ + + + [...] Cc: [facility] Draper MD [facility] +--------+---------+ + + + | Date | Type | Specialty | Care Team | Description | +--------+---------+ + + + | 05/14/ | Office | Orthopedic Surgery | Monster White MD | | | 2018 | Visit | | [address] | | | | | | [place] | | | | | | [place] [address] | | | | | | [phone] | | | | | | | | +--------+---------+ + + + | 07/30/ | Office | Cardiology | Agata Tinajero DO | | | 2019 | Visit | | [address] | | | | | | [place] | | | | | | [address] | | | | | | | [...]
--- OUTSIDE RECORDS SUMMARY | ~2019-05-12 | XMS | Encounter Summary ---
Demographics + + + | Address | [address] | | | [place] [address] | + + + | Home Phone [...] [place], | | | | | [place] [address] | | + + + + + | Kellen Briones | ECON | [place], [place] | | | | | [address] | | + + + + + Care Team Providers + +------+ + | Care Consolidator Name | Role | Phone | + [...] + + | 12/14/ | Office | [facility] | Pipp[place], | Spinal stenosis of | | 2013 | Visit | PHYSIATRY [address] | AYAAN [address] | lumbar region with | | | | [place], | [address] [place], | shoqsbxhfvknb-H5-R4 | | | | [place] [address] | [place] [address] | level moderately | | | | [phone] | [phone] | severe (Primary Dx); | | | [...] of the procedure you must provide a sulky driver to take you home. For all [...] and narcotic medications use; she currently uses [place], Flexeril and [place] bapentin. Patient's medications, allergies, [...] 1. Spinal stenosis of lumbar region with cjvoeebmaenks-K9-E5 level moderately severe 2. Facet arthritis of [...] after the injection. [facility] director transportation for cervical fusion. ELECTRONICALLY SIGNED BY: Claudia [...] | | | | | | [place] [address] | | | | | | [phone] | | | | | | | | +--------+---------+ + + + | 07/30/ | Office | Cardiology | Agata Tinajero DO | | | 2019 | Visit | | [address] | | | | | | [place] | | | | | | [address] | | | | | | | | +--------+---------+ + + + documented as of this encounter Results FL BAUTISTA Lumbar Transforaminal (02/02/2014 4:49 PM PDT) + + | Specimen | + + | | + + + + + | Narrative | Performed At | + + + | 02/02/2014 Bilateral Transforaminal Epidural Steroid Injections | [facility] | | Diagnosis: Lumbar radiculopathy ICD-9 Code 724.4 Clementine Phoenix | [facility] | | Annabella presents to the fluoroscopy suite for fluoroscopically-guided [facility] | | bilateral L5-S1 transforaminal epidural steroid [...] [address] 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
--- OUTSIDE RECORDS SUMMARY | ~2019-05-12 | XMS | Encounter Summary ---
Demographics + + + | Address | [address] | | | [place] [address] | + + + | Home Phone [...] [place], | | | | | [place] [address] | | + + + + + | Kellen Briones | ECON | [place], [place] | | | | | [address] | | + + + + + Care Team Providers + +------+ + | Care Certified Appliance Service Technician Name | Role | Phone | [...] | Cervical | Marissa, | [address] | | | | | spondylosis | Tk Monreal MD | [place], | | | | | Procedures | [address] | [place] | | | | | PA INJ | [place] | [address] | | | | | DX/THER AGNT | [facility], [place] | Phone: | | | | | [place] | [address] | [phone] | | | | | FACET JO[place], | Phone: | Fax: | | | | | | [phone] | [phone] | | | | | CERV/THORAC, | Fax: | | | | | | 1ST LEVEL | [phone] | | | | | | PA [...] + + | 03/08/ | Hospital | [facility] | [place], | Neck pain on right | | 2015 | Encounter | MED CTR XRAY [address] | [address] | side; DDD | | | | [address] | [facility], | (degenerative disc | | | | [place] [address] | [place] [address] | disease), cervical; | | | | [phone] | [phone] | Facet arthritis of | | | | | | cervical region | | | | | Call Worker PersonJordan | | +--------+ + + + + [...] | 2019 | Visit | | [address] | | | | | | [place] | | | | | | [place] [address] | | | | | | [phone] | | | | | | | | +--------+---------+ + + + | 07/30/ | Office | Cardiology | Agata Tinajero DO | | | 2020 | Visit | | [address] | | | | | | [place], [place] | | | | | | [address] | | | | | | | [...] 721.0 Clementine Winchester presents to the | [facility] | | fluoroscopy suite for fluoroscopically-guided right C3-C4, C4-C5 and [facility] | | C5-C6 facet injections [...] [address] | [place] | [phone] | | [facility] | | [address] | | | - IMAGING | | [...]
--- OUTSIDE RECORDS SUMMARY | ~2019-05-12 | XMS | Encounter Summary ---
Demographics + + + | Address | [address] | | | [place] [address] | + + + | Home Phone [...] [place], | | | | | [place] [address] | | + + + + + | Kellen Briones | ECON | [place], [place] | | | | | [address] | | + + + + + Care Team Providers + +------+ + | Care Metal Cans Supervisor Name | Role | Phone | [...] Lumbar | AYAAN Villareal | [address] | | | | | radiculopath | [address] | [place], | | | | | y | [address] | [place] | | | | | Procedures | [place] [address] | [address] | | | | | MRI Lumbar | [place], | Phone: | | | | | Spine wo | [place] [address] | [phone] | | | | | Contrast | Phone: | Fax: | | | | | | [phone] | [phone] | | | | | | Fax: | | | | | | | [phone] | | +--------+--------+ + + + + Reason for Visit + + + | Reason | Comments | + + + | Follow-up | Low Back Pain | + + + Encounter Details +--------+---------+ + + + | Date | Type | Department | Care Team | Description | +--------+---------+ + + + | 01/07/ | Office | [facility] | Mono Diaz, | Lumbar radiculopathy | | 2018 | Visit | PHYSIATRY [address] | PA-C [address] | (Primary Dx); | | | | [place], | [address] [place] | Spinal stenosis of | | | | [place] [address] | [place] [address] | lumbar region with | | | | [phone] | [phone] | ukvawxratnghb-Q3-W7 | | | | | | level [...] press against a nerve. Date Last Reviewed: 03/06/201519995007-9553 [employer]. [address] [place] [address]. All righ ts reserved. This information is [...] and narcotic medications use; she currently uses [place], Flexeril and ga bapentin. She is taking [...] PT (multiple sessions over the years) and family day carer. Unfortunately Clementine Winchester continues to have significant [...] | 2019 | Visit | | [address] | | | | | | [place] | | | | | | [place] [address] | | | | | | [phone] | | | | | | | | +--------+---------+ + + + | 07/30/ | Office | Cardiology | Agaat Tinajero DO | | | 2019 | Visit | | [address] | | | | | | [place] | | | | | | [address] | | | | | | | [...] L4 nerve root along with the descending V7oqyfk | | roots within the subarticular recesses.L5-S1: Moderate to severe disc space narrowing | | and generalized disc osteophytecomplex combine with dorsal ligamentous and facet | | hypertrophy to moderatelynarrow the foramina to a similar degree, with encroachment on | | the exiting H3oqxxq roots along with the descending S1 nerve [...] DISEASE AND | | MILD ANTEROLISTHESIS AT [id number] MILD STENOSIS.7. LEVOSCOLIOSIS AND MULTILEVEL FACET | [...] | Spinal stenosis of lumbar region with aopbcfcvpbkra-F7-L3 level moderately severe | | Spinal stenosis, lumbar region, without neurogenic claudication | + + documented in this encounter
--- OUTSIDE RECORDS SUMMARY | ~2019-05-12 | XMS | Encounter Summary ---
Demographics + + + | Address | [address] | | | [place] [address] | + + + | Home Phone [...] [place], | | | | | [place] [address] | | + + + + + | Kellen Briones | ECON | [place], [place] | | | | | [address] | | + + + + + Care Team Providers + +------+ + | Care Record Changer Name | Role | Phone | + +------+ + | Anna De Guzman PA-C | PCP | | + +------+ + Encounter Details +--------+ + + + + | Date | Type | Department | Care Team | Description | +--------+ + + + + | 05/17/ | Hospital | [facility] | Irving Becerril, | Status post cervical | | 2016 | Encounter | MED CTR XRAY [address] | DO [address] | spinal fusion; | | | | [place] | [address] [place], [place] | Spondylolisthesis of | | | | [place] [address] | [id number] | cervical region | | | | [phone] | | | +--------+ + + + [...] | | | | | | [place] [address] | | | | | | [phone] | | | | | | | | +--------+---------+ + + + | 07/30/ | Office | Cardiology | Agata Tinajero DO | | | 2019 | Visit | | [address] | | | | | | [place] | | | | | | [address] | | | | | | | [...] + + + + + | [facility] | [address] | [place] | [phone] | | [facility] | | [address] | | | - IMAGING | | | | + + + + + documented in this encounter Visit Diagnoses + + | Diagnosis | + + | Status post cervical spinal fusion Arthrodesis status | + + | Spondylolisthesis of cervical region Acquired spondylolisthesis | + + documented in this encounter"
--- OUTSIDE RECORDS SUMMARY | ~2019-05-12 | XMS | Encounter Summary ---
Demographics + + + | Address | [address] | | | [place] [address] | + + + | Home Phone [...] [place], | | | | | [place] [address] | | + + + + + | Kellen Briones | ECON | [place], [place] | | | | | [address] | | + + + + + Care Team Providers + +------+ + | Care Research And Development Specialist Name | Role | Phone | [...] | | | claudication | B | [address] | | | | | Procedures | [place], [place] | Phone: | | | | | MRI Lumbar | [address] | [phone] | | | | | Spine wo | Phone: | Fax: | | | | | Contrast | [phone] | [phone] | | | | | | Fax: | | | | | | | [phone] | | +--------+--------+ + + + + [...] | | | claudication | B | [address] | | | | | Procedures | [place], [place] | Phone: | | | | | CT Lumbar | [address] | [phone] | | | | | Spine wo | Phone: | Fax: | | | | | Contrast | [phone] | [phone] | | | | | | Fax: | | | | | | | [phone] | | +--------+--------+ + + + + [...] | | without | [place], | [place], [place] | | | |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 | [place] [address] | [address] | | | | | claudication | Phone: | Phone: | | | | | lumbar | [phone] | [phone] | | | | | | Fax: | Fax: | | | | | | [phone] | [phone] | + +--------+ + + + + Encounter Details +--------+---------+ + + + | Date | Type | Department | Care Team | Description | +--------+---------+ + + + | 03/19/ | Office | [facility] | Monster White MD | Lumbar stenosis with | | 2019 | Visit | [facility] | [address]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 | | | | ORTHOPEDIC SPINE | [place], | claudication | | | | [address] | [place] [address] | (Primary Dx); | | | | [place] | [phone] | Spondylolisthesis of | | | | [address] | | lumbar region | | | | [phone] | | | +--------+---------+ + + + [...] findings 01/2018 Social History Occupational History 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 Employer: [employer] Tobacco Use Smoking status: [...] reflux disease) Hyperlipidemia Hypertension Lumbar radiculopathy 07/23/2012 [place] (myocardial infarction) (HCC) Neck pain on right side 05/13/2013 Oxygen dependent 2 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 Snoring Spinal stenosis of lumbar region with pwycnfwhtrmar-D1-I6 level moderately severe 2012 Past Surgical History: Procedure Laterality Date BELPHAROPTOSIS REPAIR 2009 bilateral bone spur left foot BREAST RECONSTRUCTION 9657-0528 About 10 surgeries CARPAL TUNNEL RELEASE Bilateral CERVICAL SPINE SURGERY Anterior 03/30/2016 Procedure: C3-4, C4-5, C5-6, C6-7 Anterior Cervical Discectomy w/ Fusion and Plating; Bryan geon: Irving Becerril, DO; Location: [facility] MAIN OR CORONARY ARTERY BYPASS [...] flexors 5 5 Hand intrinsics 5 5 Cartoon Designer 5 5 Hip flexors 5 5 Quadriceps [...] Note: We spent approximately 50 minutes in xdzp-ef-ddch time of which greater than 50% was [...] | | | | | | [place] [address] | | | | | | [phone] | | | | | | | [...] effects the | | right side at L1-W7nxysq it is severe and bilaterally at L5-S1 [...]
--- OUTSIDE RECORDS SUMMARY | ~2019-05-12 | XMS | Encounter Summary ---
Demographics + + + | Address | [address] | | | [place] [address] | + + + | Home Phone [...] [place], | | | | | [place] [address] | | + + + + + | Kellen Briones | ECON | [place], [place] | | | | | [address] | | + + + + + Care Team Providers + +------+ + | Care Wardsperson Name | Role | Phone | + [...] + | 12/14/ | Office | [facility] | [place], | Spinal stenosis of | | 2013 | Visit | PHYSIATRY [address] | [address]YA[address] | lumbar region with | | | | [place], | [address] [place], | snmugrgkgdadg-T1-L8 | | | | [place] [address] | [place] [address] | level moderately | | | | [phone] | [phone] | severe (Primary Dx); | | | [...] the procedure you must provide a company driver to take you home. For [...] and narcotic medications use; she currently uses [place], Flexeril and [place] bapentin. Patient's medications, allergies, [...] 1. Spinal stenosis of lumbar region with mmomtxechrntv-K0-J4 level moderately severe 2. Facet arthritis of [...] after the injection. She is awaiting to [facility] cleared by her can filling machine operator for cervical fusion. ELECTRONICALLY SIGNED BY: Claudia [...] | | | | | | [place] [address] | | | | | | [phone] | | | | | | | | +--------+---------+ + + + | 07/30/ | Office | Cardiology | Agata Tinajero DO | | | 2019 | Visit | | [address] | | | | | | [place] | | | | | | [address] | | | | | | | | +--------+---------+ + + + documented as of this encounter Results FL BAUTISTA Lumbar Transforaminal (02/02/2014 4:49 PM PDT) + + | Specimen | + + | | + + + + + | Narrative | Performed At | + + + | 02/02/2014 Bilateral Transforaminal Epidural Steroid Injections | [facility] | | Diagnosis: Lumbar radiculopathy ICD-9 Code 724.4 Clementine Phoenix | [facility] | | Annabella presents to the fluoroscopy suite for fluoroscopically-guided [facility] | | bilateral L5-S1 transforaminal epidural steroid [...] [address] 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
--- OUTSIDE RECORDS SUMMARY | ~2019-05-12 | XMS | Encounter Summary ---
Demographics + + + | Address | [address] | | | [place] [address] | + + + | Home Phone [...] [place], | | | | | [place] [address] | | + + + + + | Kellen Briones | ECON | [place] | | | | | [address] | | + + + + + Care Team Providers + +------+ + | Care Pathology Laboratory Technologist Name | Role | Phone | [...] | unspecified whether | | | | [place], [place] | [place] [address]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 | | | | [address] | [phone] | claudication present | | | | [phone] | | (Primary Dx); DDD | | [...] | | | | | | [place] [address] | | | | | | [phone] | | | | | | | | +--------+---------+ + + + | 07/30/ | Office | Cardiology | Agata Tinajero DO | | | 2019 | Visit | | [address] | | | | | | [place] | | | | | | [address] | | | | | | | [...]
--- OUTSIDE RECORDS SUMMARY | ~2019-05-12 | XMS | Encounter Summary ---
Demographics + + + | Address | [address] | | | [place] [address] | + + + | Home Phone [...] [place], | | | | | [place] [address] | | + + + + + | Kellen Briones | ECON | [place], [place] | | | | | [address] | | + + + + + Care Team Providers + +------+ + | Care Probate Clerk Name | Role | Phone | [...] | | | | [address] [facility] | [address] [place], [place] | | | | | [place], [place] | [address] | | | | | [address] | | | | | | [phone] | | | +--------+ + + + [...] | | | | | | [place] [address] | | | | | | [phone] | | | | | | | | +--------+---------+ + + + | 07/30/ | Office | Cardiology | Agata Tinajero DO | | | 2019 | Visit | | [address] | | | | | | [place] | | | | | | [address] | | | | | | | | +--------+---------+ + + + documented as of this encounter Visit Diagnoses Not on filedocumented in this encounter"
--- OUTSIDE RECORDS SUMMARY | ~2019-05-12 | XMS | Encounter Summary ---
Demographics + + + | Address | [address] | | | [place] [address] | + + + | Home Phone [...] [place], | | | | | [place] [address] | | + + + + + | Kellen Briones | ECON | [place] | | | | | [address] | | + + + + + Care Team Providers + +------+ + | Care Lead Burner Apprentice Name | Role | Phone | + +------+ + | Barb Marte | THANG | | + +------+ + Encounter Details +--------+ + + + + | Date | Type | Department | Care Team | Description | +--------+ + + + + | 01/03/ | Hospital | [facility] | Barb Marte PA | Visit for screening | | 2018 | Encounter | MED CTR MAMMOGRAPHY | [address] | mammogram | | | | [address] | [address] | | | | | [address], [place] | [address] | | | | | [address] | | | | | | [phone] | | | +--------+ + + + [...] | | | | | | [place] [address] | | | | | | [phone] | | | | | | | | +--------+---------+ + + + | 07/30/ | Office | Cardiology | Agata Tinajero DO | | | 2019 | Visit | | [address] | | | | | | [place] | | | | | | [address] | | | | | | | [...]
--- OUTSIDE RECORDS SUMMARY | ~2019-05-12 | XMS | Encounter Summary ---
Demographics + + + | Address | [address] | | | [place] [address] | + + + | Home Phone [...] [place], | | | | | [place] [address] | | + + + + + | Kellen Briones | ECON | [place], [place] | | | | | [address] | | + + + + + Care Team Providers + +------+ + | Care Ophthalmic Assistant Name | Role | Phone | [...] | | | [address]IVE [address] | [address] | | | | | | D | [place], | | | | | | [place], | [place] [address] | | | | | | [place] [address] | Phone: | | | | | | Phone: | [phone] | | | | | | [phone] | Fax: | | | | | | Fax: | [phone] | | | | | | [phone] | | +--------+ + + + + + Encounter Details +--------+---------+ + + + | Date | Type | Department | Care Team | Description | +--------+---------+ + + + | 09/16/ | Office | [facility] | Bobby Grier | Snoring (Primary | | 2012 | Visit | SLEEP DISORDER [address] | MD [address] | Dx); Chronic | | | | [address] [place] | [address] [place] | narcotic use | | | | [place] [address] | [place] [address] | | | | | [phone] | [phone] | | | | | | | [...] differen t from the original. Gely [facility] [place] [address] Ref: Patrick Gaffney MD CC: Chief Complaint [...] and back pain she was started on [place], baclofen, flexeril, and zanaflex in February of 2012 according to the patient and her daughter (the EMR supports this too). Currently she is on the zanaflex and [place]. She had been started on Celexa in November of 2011 for depression. Wellbutrin was started in July of 2010 after heart surgery. She currently takes 2 [place] tabs tid. She started having spells of [...] of 20-30 minutes. She often takes a [place] at about 8pm and rarely after 10pm. [...] Hypertension; Stroke; Syncope and collapse; Cancer; Hyperlipidemia; [place] (myocardial inf arction); GERD (gastroesophageal reflux disease); Asthma; Arthritis; Lumbar radiculopathy (); DDD (degenerative disc disease), lumbar (07/23/2012); Spinal stenosis of lumbar re gion with zvmbhqgfdrhzy-R6-U4 level moderately severe (07/23/2012); Facet arthritis of lumbar region-Most severe at L4-L5,L5-S1 (07/23/2012); and Snoring. 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 I've discussed this in detail with [...] the majority of time was spent [facility]. CC: Emerita Draper Taye, Bobby Booker Jr., MD - 09/16/2012 10:17 AM PDTFormatting of this note might be different from the origin al. 09/16/12 1000 Thompson Depression Inventory-II Depression Score 5 - Minimal depression Insomnia Severity Index Insomnia Severity Index 7 Edison Sleepiness Scale Sitting and reading 0 Watching [...] | | | | | | [place] [address] | | | | | | [phone] | | | | | | | | +--------+---------+ + + + | 07/30/ | Office | Cardiology | Agata Tinajero DO | | | 2019 | Visit | | [address] | | | | | | [address], [place] | | | | | | [address] | | | | | | | [...]
--- OUTSIDE RECORDS SUMMARY | ~2019-05-12 | XMS | Encounter Summary ---
Demographics + + + | Address | [address] | | | [place] [address] | + + + | Home Phone [...] [place], | | | | | [place] [address] | | + + + + + | Kellen Briones | ECON | [place], [place] | | | | | [address] | | + + + + + Care Team Providers + +------+ + | Care Fountain Jerk Name | Role | Phone | + [...] 5TH | | | | | | ([facility]) S/P | AVE [address] | | | | | | cervical | [place] | | | | | | spinal | [address] | | | | | | fusion | Phone: | | | | | | | [phone] | | | | | | | Fax: | | | | | | | [phone] | | +--------+ + + + + + Reason for Visit +---------+ + | Reason | Comments | +---------+ + | Post Op | 3m PO | +---------+ + Encounter Details +--------+---------+ + + + | Date | Type | Department | Care Team | Description | +--------+---------+ + + + | 07/04/ | Office | [facility] | Irving Becerril, | Cervical myelopathy | | 2017 | Visit | NEUROSURGERY [address] | DO [address] | ([facility]) (Primary Dx); | | | | [address] | [address] [place], [place] | S/P cervical spinal | | | | [place], [place] | [id number] | fusion | | | | [address] | | | | | | [phone] | | | +--------+---------+ + + + [...] the original. Irving Becerril DO [address] [facility] [place], [address] [place] [address] FAX: NEUROSURGERY FOLLOW-UP CHIEF COMPLAINT: Chief Complaint [...] (HCC) Hypertension Cancer (HCC) Right breast Hyperlipidemia [place] (myocardial infarction) (HCC) GERD (gastroesophageal reflux disease) Asthma Arthritis Lumbar radiculopathy 07/23/2012 DDD (degenerative disc disease), lumbar 07/23/2012 Spinal stenosis of lumbar region with dofwlttpzwlsf-I3-R9 level moderately severe 2012 Facet arthritis of [...] 1989' Mastectomy, radical 1987 Right Breast reconstruction 2702-3449 About 10 surgeries Bone spur left foot Blepharoptosis repair 2009 bilateral Cervical spine surgery Anterior 03/30/2016 Procedure: C3-4, C4-5, C5-6, C6-7 Anterior Cervical Discectomy w/ Fusion and Plating; Enamorado rgeon: Irving Becerril DO; Location: [facility] MAIN OR CURRENT MEDICATIONS: Current Outpatient [...] (HCC) Hypertension Cancer (HCC) Right breast Hyperlipidemia [place] (myocardial infarction) (HCC) GERD (gastroesophageal reflux disease) Asthma Arthritis Lumbar radiculopathy 07/23/2012 DDD (degenerative disc disease), lumbar 07/23/2012 Spinal stenosis of lumbar region with xcprptnyhweby-K6-S2 level moderately severe 2012 Facet arthritis of [...] | | | | | [place] [address] | | | | | | [phone] | | | | | | | | +--------+---------+ + + + | 07/30/ | Office | Cardiology | Agata Tinajero DO | | | 2019 | Visit | | [address] | | | | | | [place] | | | | | | [address] | | | | | | | [...]
--- OUTSIDE RECORDS SUMMARY | ~2019-05-12 | XMS | Encounter Summary ---
Demographics + + + | Address | [address] | | | [place] [address] | + + + | Home Phone [...] [place], | | | | | [place] [address] | | + + + + + | Kellen Briones | ECON | [place], [place] | | | | | [address] | | + + + + + Care Team Providers + +------+ + | Care Human Factors Scientist Name | Role | Phone | [...] pain, | MD [address] | | | | | bilateral | [address] | [address] [place] | | | | | Procedures | [place], | [place], [place] | | | | | MRI Lumbar | [place] [address] | [address] | | | | | Spine wo | Phone: | Phone: | | | | | Contrast | [phone] | [phone] | | | | | | [phone] Fax: | Fax: | | | | | | | [phone] | | | | | | [phone] | | +--------+--------+ + + + + [...] | | | | | etiology | [address] | [place] | | | | | ([facility]) | [place], | [place], [place] | | | | | | [place] [address] | [address] | | | | | | Phone: | Phone: | | | | | | [phone] | [phone] | | | | | | [phone] Fax: | Fax: | | | | | | | [phone] | | | | | | [phone] | | +--------+ + + + + [...] | | n | spinal canal | [address] | [address] [place] | | | | | | [place], | [place], [place] | | | | | Spondylolist | [place] [address] | [address] Phone: | | | | | hesis of | Phone: | [phone] | | | | | cervical | [phone] | Fax: | | | | | region | [phone] Fax: | [phone] | | | | | Right hip | | | | | | | pain | [phone] | | | | | | Trochanteric [...] [address] | MD Idris [address] | spinal canal | | | | [address] | St [place], [place] | (Primary Dx); | | | | [place] | [address] | Spondylolisthesis of | | | | [address] | [phone] | cervical region; | | | | [phone] | | Right hip pain; | | | | | | Trochanteric | | | | | | bursitis of right | | | | | | hip; Lumbago; Leg | | | | | | pain, bilateral; | | | | | | Arthritis; Stroke of | | | | | | unknown etiology | | | | | | ([facility]); | | | | | | [...] w nixon we obtain the studies from [facility] documented in this encounter Progress Notes Ramon Real MD - 06/04/2012 3:46 PM PSTFormatting of this note might be differen t from the original. Ramon Real MD [address] [facility], [address] [place], [place] [id number] FAX: NEUROSURGERY HISTORY AND PHYSICAL EXAMINATION CHIEF [...] evaluati on in the emergency department at [facility]. Apparently a CT scan not available to [...] Stroke Syncope and collapse Cancer Breast Hyperlipidemia [place] (myocardial infarction) GERD (gastroesophageal reflux disease) Asthma [...] Intrinsics 5 5 Ulnar Intrinsics 5 [address] Safety Engineer Strength 4 (35#) 4+ (40#) Hip Flexion [...] Hypertension Stroke Syncope and collapse Cancer Hyperlipidemia [place] (myocardial infarction) GERD (gastroesophageal reflux disease) Asthma GENERAL DIAGNOSES: Past Medical History Diagnosis Date Coronary artery disease Diabetes mellitus Hypertension Stroke Syncope and collapse Cancer Breast Hyperlipidemia [place] (myocardial infarction) GERD (gastroesophageal reflux disease) Asthma [...] imagi ng studies which were obtained at [facility] to facilitate that. Once we have his [...] | 2018 | Visit | | [address] [address] | | | | | | [place] | | | | | | [place] [address] | | | | | | [phone] | | | | | | | | +--------+---------+ + + + | 07/30/ | Office | Cardiology | Agata Tinajero DO | | | 2019 | Visit | | [address] | | | | | | [place] | | | | | | [address] | | | | | | | [...]
--- OUTSIDE RECORDS SUMMARY | ~2019-05-12 | XMS | Encounter Summary ---
Demographics + + + | Address | [address] | | | [place] [address] | + + + | Home Phone [...] [place], | | | | | [place] [address] | | + + + + + | Kellen Briones | ECON | [place], [place] | | | | | [address] | | + + + + + Care Team Providers + +------+ + | Care Chief Privacy Officer Name | Role | Phone | [...] + + | 08/28/ | Telephone | [facility] | Patrick Gaffney MD [address] | Results | | 2012 | | NEUROLOGY DEETH | [facility] | | | | | [address] [facility], | [address] [place], | | | | | [address] [place] | [place] [address] | | | | | [place] [address] | [phone] | | | | | [phone] | | | +--------+ + + + [...] | | | | | | [place] [address] | | | | | | [phone] | | | | | | | | +--------+---------+ + + + | 07/30/ | Office | Cardiology | Agata Tinajero DO | | | 2019 | Visit | | [address] | | | | | | [place] | | | | | | [address] | | | | | | | | +--------+---------+ + + + documented as of this encounter Visit Diagnoses Not on filedocumented in this encounter"
--- OUTSIDE RECORDS SUMMARY | ~2019-05-12 | XMS | Encounter Summary ---
Demographics + + + | Address | [address] | | | [place] [address] | + + + | Home Phone [...] [place], | | | | | [place] [address] | | + + + + + | Kellen Briones | ECON | [place] | | | | | [address] | | + + + + + Care Team Providers + +------+ + | Care Mathematics Improvement Teacher Name | Role | Phone | + +------+ + | Barb Marte | PCP | | + +------+ + Encounter Details +--------+ + + + + | Date | Type | Department | Care Team | Description | +--------+ + + + + | 01/31/ | Hospital | [facility] | Conversion | Pain | | 2018 | Encounter | CONVERSION DEP [address] | Transaction, | | | | | [address] | Provider Unknown | | | | | [place], [place] | [phone] | | | | | [address] | | | | | | [phone] | | | +--------+ + + + [...] | | | | | | [place] [address] | | | | | | [phone] | | | | | | | | +--------+---------+ + + + | 07/30/ | Office | Cardiology | Agata Tinajero DO | | | 2019 | Visit | | [address] | | | | | | [place] | | | | | | [address] | | | | | | | [...]
--- OUTSIDE RECORDS SUMMARY | ~2019-05-12 | XMS | Encounter Summary ---
Demographics + + + | Address | [address] | | | [place] [address] | + + + | Home Phone [...] [place], | | | | | [place] [address] | | + + + + + | Kellen Briones | ECON | [place], [place] | | | | | [address] | | + + + + + Care Team Providers + +------+ + | Care Senior Technical Architect Name | Role | Phone [...] | | | | | | | [place] | | | | | | | [...] | | | | | [address] | [place] | | | | | [place] | [address] | | | | | [address] | | | | | | [phone] | | | +--------+ + + + [...] +----+---+ + + | | 1 | Circle | | | | 4 | 43-degrees [...] 1500 by | | eral | Antecubital; [id number] | Magdalena Burdick, RN | Tatiana Crowe, [...] | | | | | | [place] [address] | | | | | | [phone] | | | | | | | | +--------+---------+ + + + | 07/30/ | Office | Cardiology | Agata Tinajero DO | | | 2019 | Visit | | [address] | | | | | | [place] | | | | | | [address] | | | | | | | [...]
--- OUTSIDE RECORDS SUMMARY | ~2019-05-12 | XMS | Encounter Summary ---
Demographics + + + | Address | [address] | | | [place] [address] | + + + | Home Phone [...] [place], | | | | | [place] [address] | | + + + + + | Kellen Briones | ECON | [place], [place] | | | | | [address] | | + + + + + Care Team Providers + +------+ + | Care Chicken Sexer Name | Role | Phone | + [...] + + | 03/30/ | Hospital | [facility] | Irving Becerril, | | | 2016 | Encounter | MED CTR XRAY [address] | DO [address] | | | | | [place] | [address] [place], [place] | | | | | [place] [address] | [id number] | | | | | [phone] | | | +--------+ + + + [...] | | | | | | [place] [address] | | | | | | [phone] | | | | | | | | +--------+---------+ + + + | 07/30/ | Office | Cardiology | Agata Tinajero DO | | | 2019 | Visit | | [address] | | | | | | [place] | | | | | | [address] | | | | | | | [...]
--- OUTSIDE RECORDS SUMMARY | ~2019-05-12 | XMS | Encounter Summary ---
Demographics + + + | Address | [address] | | | [place] [address] | + + + | Home Phone [...] [place], | | | | | [place] [address] | | + + + + + | Kellen Briones | ECON | [place], [place] | | | | | [address] | | + + + + + Care Team Providers + +------+ + | Care Materials Planner Name | Role | Phone | [...] Thoracic or | [place], | [address] | | | | | lumbosacral | Tk Monreal MD | [place], | | | | | neuritis or | [address] | [place] | | | | | | [place] | [address] | | | | | radiculitis, | [place], [place] | Phone: | | | | | unspecified | [address] | [phone] | | | | | Procedures | Phone: | Fax: | | | | | NV INJECT | [phone] | [phone] | | | | | ANES/STEROID | Fax: | | | | | | FORAMEN | [phone] | | | | | | LUMBAR/SACRA [...] + + | 06/08/ | Hospital | [place] | Tk nAn | Lumbar radiculopathy | | 2014 | Encounter | MED CTR XRAY [address] | T, [address] | (Primary Dx); DDD | | | | [address] [place] | [place], [place] | (degenerative disc | | | | [place] [address] | [address] | disease), lumbar; | | | | [phone] | | Facet arthritis of | | | | | Harness Brusher, [facility] | lumbar region-Most | | | | | | severe at | | | | | | L4-L5,L5-S1; Spinal | | | | | | stenosis of lumbar | | | | | | region with | | | | | | rlkswrqbzoani-P8-U3 | | | | | | level [...] | 2019 | Visit | | [address] | | | | | | [place] | | | | | | [place] [address] | | | | | | [phone] | | | | | | | | +--------+---------+ + + + | 07/30/ | Office | Cardiology | Agata Tinajero DO | | | 2019 | Visit | | [address] | | | | | | [place] | | | | | | [address] | | | | | | | [...] with | | | | | | xwjbioltcuvga-U5-Q4 | | | | | | level [...] Code 724.4 Clementine Phoenix | [facility] | | Annabella presents to the fluoroscopy suite for fluoroscopically-guided [facility] | | bilateral L5-S1 transforaminal epidural steroid [...] | + + + + + | [facility] | [address] | [place] | [phone] | | [facility] | | [address] | | | - IMAGING | | [...] | Spinal stenosis of lumbar region with luqfscdkefutk-D1-I4 level moderately severe | | Spinal stenosis, [...]
--- OUTSIDE RECORDS SUMMARY | ~2019-05-12 | XMS | Encounter Summary ---
Demographics + + + | Address | [address] | | | [place] [address] | + + + | Home Phone [...] [place], | | | | | [place] [address] | | + + + + + | Kellen Briones | ECON | [place], [place] | | | | | [address] | | + + + + + Care Team Providers + +------+ + | Care Ear Mold Laboratory Technician Name | Role | Phone [...] + + | 05/17/ | Office | [facility] | Chavo Jacob, | Status post cervical | | 2016 | Visit | NEUROSURGERY [address] | PA-C [address] | spinal fusion | | | | [address] | [address] [place] | (Primary Dx) | | | | [place] | [place] [address] | | | | | [address] | [phone] | | | | | [phone] | | | +--------+---------+ + + + [...] encounter Patient Instructions Patient Instructions Perico Hearn, Printed Circuit Board Panels Deburrer - 05/17/2016 11:43 AM PSTYou may now [...] your back and use good technique when pick up and delivery driver things and bending. documented in this encounter Progress Notes Chavo Jacob PA - 05/17/2016 11:41 AM PSTFormatting of this note might be different f rom the original. Perico Hearn, Generator Worker [address] [facility], [address] [place], [place] [address] FAX: NEUROSURGERY FOLLOW-UP CHIEF COMPLAINT: Chief Complaint [...] (HCC) Hypertension Cancer (HCC) Right breast Hyperlipidemia [place] (myocardial infarction) ([facility]) GERD (gastroesophageal reflux disease) Asthma Arthritis Lumbar radiculopathy 07/23/2012 DDD (degenerative disc disease), lumbar 07/23/2012 Spinal stenosis of lumbar region with dhomniqzgurui-G7-M0 level moderately severe 2012 Facet arthritis of [...] severe lumbar spondylosis along with spondylolisthesis. Kelsea msith has been offered the patient has opted [...] | | | | | [place] [address] | | | | | | [phone] | | | | | | | | +--------+---------+ + + + | 07/30/ | Office | Cardiology | Agata Tinajero DO | | | 2019 | Visit | | [address] | | | | | | [place] | | | | | | [address] | | | | | | | [...]
--- OUTSIDE RECORDS SUMMARY | ~2019-05-12 | XMS | Encounter Summary ---
Demographics + + + | Address | [address] | | | [place] [address] | + + + | Home Phone [...] [place], | | | | | [place] [address] | | + + + + + | Kellen Briones | ECON | [place], [place] | | | | | [address] | | + + + + + Care Team Providers + +------+ + | Care Workforce Advisor Name | Role | Phone | [...] | | | Procedures | [address] | [address]uc | | | | | NM Nuclear | [address] | Med 1100 | | | | | Stress Test | [address] | [address] | | | | | (Vasodilator | [place], [place] | [place], [place] | | | | | ) | [address] | [address] | | | | | | Phone: | Phone: | | | | | | [phone] | [phone] | | | | | | Fax: | Fax: | | | | | | [phone] | [phone] | +--------+--------+ + + + + Encounter Details +--------+ + + + + | Date | Type | Department | Care Team | Description | +--------+ + + + + | 02/17/ | Hospital | [facility] | TinajeroFlorindayDO | | | 2019 | Encounter | CARDIOLOGY [place] | [address] | | | | | NUC MED [address] | [address] [place], [place] | | | | | [address] | [address] | | | | | [place], [place] | | | | | | [address] | | | | | | [phone] | | | +--------+ + + + [...] | 2019 | Visit | | [address] | | | | | | [place] | | | | | | [place] [address] | | | | | | [phone] | | | | | | | | +--------+---------+ + + + | 07/30/ | Office | Cardiology | Agata Tinajero DO | | | 2019 | Visit | | [address] | | | | | | [place] | | | | | | [address] | | | | | | | [...]
--- OUTSIDE RECORDS SUMMARY | ~2019-05-12 | XMS | Encounter Summary ---
Demographics + + + | Address | [address] | | | [place] [address] | + + + | Home Phone [...] [place], | | | | | [place] [address] | | + + + + + | Kellen Briones | ECON | [place] | | | | | [address] | | + + + + + Care Team Providers + +------+ + | Care Firearms Model Maker Name | Role | Phone | [...] + + | 03/19/ | Office | [facility] | Mono Diaz, | Lumbar radiculopathy | | 2018 | Visit | PHYSIATRY [address] | PA-C [address] | (Primary Dx) | | | | [place], | [address] [place] | | | | | [place] [address] | [place] [address] | | | | | [phone] | [phone] | | | | | | | [...] of the procedure you must provide a jukebox route driver to take you home. For [...] press against a nerve. Date Last Reviewed: 08/01/201719998846-9365 [employer]. [address] [place] [address]. All righ ts reserved. This information is [...] and narcotic medications use; she currently uses [place], Flexeril and ga bapentin. She is taking [...] apparent deficits with short or custodial memory. She has appropriate fund of knowledge [...] | 2019 | Visit | | [address] | | | | | | [place], | | | | | | [place] [address] | | | | | | [phone] | | | | | | | | +--------+---------+ + + + | 07/30/ | Office | Cardiology | Agata Tinajero DO | | | 2019 | Visit | | [address] | | | | | | [place] | | | | | | [address] | | | | | | | [...]
--- OUTSIDE RECORDS SUMMARY | ~2019-05-12 | XMS | Encounter Summary ---
Demographics + + + | Address | [address] | | | [place] [address] | + + + | Home Phone [...] [place], | | | | | [place] [address] | | + + + + + | Kellen Briones | ECON | [place], [place] | | | | | [address] | | + + + + + Care Team Providers + +------+ + | Care Soft Sugar Cutter Name | Role | Phone | [...] | | Spinal | PA[address] | [place], [place] | | | | | stenosis, | [address] | [address] | | | | | other region | Ave | Phone: | | | | | Procedures | [place], | [phone] | | | | | [place] OFFICE | [place] | Fax: | | | | | CONSULTATION | [address] | [phone] | | | | | NEW/ESTAB | Phone: | | | | | | PATIENT 60 | [phone] | | | | | | MIN | Fax: | | | | | | | [phone] | | +--------+--------+ + + + + Encounter Details +--------+---------+ + + + | Date | Type | Department | Care Team | Description | +--------+---------+ + + + | 11/13/ | Office | [facility] | Gonzalo Mathew MD | Cervical spondylosis | | 2013 | Visit | 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 Then, look for Anterior Cervical Discectomy and Fusion (ACDF). documented in this encounter Progress Notes Gonzalo Mathew MD - 11/13/2013 11:00 AM PDTFormatting of this note might be different from t he original. Gonzalo Mathew MD [address] [place] [address], [address] [place] [address] FAX: NEUROSURGERY HISTORY AND PHYSICAL EXAMINATION CHIEF [...] Syncope and collapse Cancer (HCC) Breast Hyperlipidemia [place] (myocardial infarction) (HCC) GERD (gastroesophageal reflux disease) Asthma Arthritis Lumbar radiculopathy 07/23/2012 DDD (degenerative disc disease), lumbar 07/23/2012 Spinal stenosis of lumbar region with xjxdiyallvkrd-C5-I4 level moderately severe 2012 Facet arthritis of [...] 1989' Mastectomy, radical 1987 Right Breast reconstruction 6263-2319 ABout 10 surgeries Bone spur left foot [...] apparent deficits with short or half-way memory. CRANIAL NERVES: II: Acuity is intact. [...] Intrinsics 5 5 Ulnar Intrinsics 5 5 Financial Institution President Strength 5 5 Hip Flexion 5 5 [...] Syncope and collapse Cancer (HCC) Breast Hyperlipidemia [place] (myocardial infarction) (HCC) GERD (gastroesophageal reflux disease) Asthma Arthritis Lumbar radiculopathy 07/23/2012 DDD (degenerative disc disease), lumbar 07/23/2012 Spinal stenosis of lumbar region with btyfnvudrtioj-X9-F4 level moderately severe 2012 Facet arthritis of [...] | 2019 | Visit | | [address] | | | | | | [place], | | | | | | [place] [address] | | | | | | [phone] | | | | | | | | +--------+---------+ + + + | 07/30/ | Office | Cardiology | TinajeroAgata DO | | | 2019 | Visit | | [address] | | | | | | [place] | | | | | | [address] | | | | | | | [...]
--- OUTSIDE RECORDS SUMMARY | ~2019-05-12 | XMS | Encounter Summary ---
Demographics + + + | Address | [address] | | | [place] [address] | + + + | Home Phone [...] [place], | | | | | [place] [address] | | + + + + + | Kellen Briones | ECON | [place] | | | | | [address] | | + + + + + Care Team Providers + +------+ + | Care Lens Cutter Name | Role | Phone | [...] | unspecified whether | | | | [place], [place] | [place] [address]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 | | | | [address] | [phone] | claudication present | | | | [phone] | | (Primary Dx); DDD | | [...] | | | | | | [place] [address] | | | | | | [phone] | | | | | | | | +--------+---------+ + + + | 07/30/ | Office | Cardiology | Agata Tinajero DO | | | 2019 | Visit | | [address] | | | | | | [place] | | | | | | [address] | | | | | | | [...]
--- OUTSIDE RECORDS SUMMARY | ~2019-05-12 | XMS | Encounter Summary ---
Demographics + + + | Address | [address] | | | [place] [address] | + + + | Home Phone [...] [place], | | | | | [place] [address] | | + + + + + | Kellen Briones | ECON | [place] | | | | | [address] | | + + + + + Care Team Providers + +------+ + | Care Operations Intern Name | Role | Phone | [...] + + | 03/19/ | Office | [facility] | Mono Diaz, | Lumbar radiculopathy | | 2018 | Visit | PHYSIATRY [address] | PA-C [address] | (Primary Dx) | | | | Marvin [place]oss[place], | [address] [place] | | | | | [place] [address] | [place] [address] | | | | | [phone] | [phone] | | | | | | | [...] of the procedure you must provide a dump truck driver to take you home. For [...] press against a nerve. Date Last Reviewed: 08/01/201719994178-9703 The [employer]. [address] [place] [address]. All righ ts reserved. This information is [...] and narcotic medications use; she currently uses [place], Flexeril and ga bapentin. She is taking [...] PT (multiple sessions over the years) and transition of care specialist. Unfortunately Clemenitne Winchester continues to have significant discomfort. It [...] | 2018 | Visit | | [address] | | | | | | [place], | | | | | | [place] [address] | | | | | | [phone] | | | | | | | | +--------+---------+ + + + | 07/30/ | Office | Cardiology | Agata Tinajero DO | | | 2019 | Visit | | [address] | | | | | | [place] | | | | | | [address] | | | | | | | [...]
--- OUTSIDE RECORDS SUMMARY | ~2019-05-12 | XMS | Encounter Summary ---
Demographics + + + | Address | [address] | | | [place] [address] | + + + | Home Phone [...] [place], | | | | | [place] [address] | | + + + + + | Kellen Briones | ECON | [place], [place] | | | | | [address] | | + + + + + Care Team Providers + +------+ + | Care Electronic Drafter Name | Role | Phone | + +------+ + | Anna De Guzman PA-C | PCP | | + +------+ + Encounter Details +--------+ + + + + | Date | Type | Department | Care Team | Description | +--------+ + + + + | 03/07/ | Hospital | [facility] | Irving Becerril, | Stroke of unknown | | 2016 | Encounter | MED CTR XRAY [address] | DO [address] | etiology ([facility]); | | | | [place] | [address] [place], [place] | Cerebrovascular | | | | [place] [address] | [address] | accident (CVA), | | | | [phone] | | unspecified | | | | | Caleb San MD | mechanism (HCC); | | | | | [address] | Lumbar | | | | | [place], [place] | radiculopathy; | | | | | [address] | Cervical stenosis of | | | [...] involving | | | | | | cloverdale coronary | | | | | | artery of cloverdale | | | | | | heart without angina | | | | | | pectoris; 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 | | | | | | without complication | | | | | | ([facility]); Essential | | | | | | hypertension; | | | | | | Syncope and | | | | | | collapse; Cancer | | | | | | ([facility]); 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| | hyperlipidemia; ST | | | | | | elevation myocardial | | | | | | infarction (STEMI), | | | | | | unspecified artery | | | | | | ([facility]); | | | | | | Gastroesophageal [...] with | | | | | | rkfcmpjppuvma-C8-Z2 | | | | | | level [...] region | | | | | | ([facility]); DDD | | | | | | [...] | | | | | | [place] [address] | | | | | | [phone] | | | | | | | | +--------+---------+ + + + | 07/30/ | Office | Cardiology | Agata Tinajero DO | | | 2019 | Visit | | [address] | | | | | | [place] | | | | | | [address] | | | | | | | [...] involving | | | | | | cloverdale coronary | | | | | | artery of [place] | | | | | | heart [...] with | | | | | | tryjjeqdhxhwy-V2-A1 | | | | | | level [...] region | | | | | | ([facility]) DDD | | | | | | [...] PA and Lateral Chest COMPARISON: None. | [facility] | | FINDINGS: Sternal wires and mediastinal [...] [address] | [place] | [phone] | | [facility] | | [address] | | | - IMAGING | | [...] + + | Coronary artery disease involving cloverdale coronary artery of cloverdale heart without | | angina pectoris | [...] | Spinal stenosis of lumbar region with hsuniobrvtjax-X2-S2 level moderately severe | | Spinal stenosis, [...]
--- OUTSIDE RECORDS SUMMARY | ~2019-05-12 | XMS | Encounter Summary ---
Demographics + + + | Address | [address] | | | [place] [address] | + + + | Home Phone [...] [place], | | | | | [place] [address] | | + + + + + | Kellen Briones | ECON | [place] | | | | | [address] | | + + + + + Care Team Providers + +------+ + | Care Oil And Gas Recruiter Name | Role | Phone | + +------+ + | Barb Marte | THANG | | + +------+ + Encounter Details +--------+ + + + + | Date | Type | Department | Care Team | Description | +--------+ + + + + | 03/05/ | Hospital | [facility] | Barb Marte PA | Abnormal mammogram | | 2018 | Encounter | MED CTR ULTRASOUND | [address] | | | | | [address] | [address] [place] | | | | | [place] | [address] | | | | | [address] | | | | | | [phone] | | | +--------+ + + + [...] | | | | | | [place] [address] | | | | | | [phone] | | | | | | | | +--------+---------+ + + + | 07/30/ | Office | Cardiology | Agata Tinajero DO | | | 2019 | Visit | | [address] | | | | | | [place] | | | | | | [address] | | | | | | | [...]
--- OUTSIDE RECORDS SUMMARY | ~2019-05-12 | XMS | Encounter Summary ---
Demographics + + + | Address | [address] | | | [place] [address] | + + + | Home Phone [...] [place], | | | | | [place] [address] | | + + + + + | Kellen Briones | ECON | [place], [place] | | | | | [address] | | + + + + + Care Team Providers + +------+ + | Care Recreational Programs Director Name | Role | Phone | [...] | | | | | | [place] [address] | | | | | | [phone] | | | +--------+ + + + [...] | | | | | | [place] [address] | | | | | | [phone] | | | | | | | | +--------+---------+ + + + | 07/30/ | Office | Cardiology | Agata Tinajero DO | | | 2019 | Visit | | [address] | | | | | | [place] | | | | | | [address] | | | | | | | | +--------+---------+ + + + documented as of this encounter Visit Diagnoses Not on filedocumented in this encounter"
--- OUTSIDE RECORDS SUMMARY | ~2019-05-12 | XMS | Encounter Summary ---
Demographics + + + | Address | [address] | | | [place] [address] | + + + | Home Phone [...] [place], | | | | | [place] [address] | | + + + + + | Kellen Briones | ECON | [place], [place] | | | | | [address] | | + + + + + Care Team Providers + +------+ + | Care Stripping Machine Operator Name | Role | Phone [...] Thoracic or | [place], | [address] | | | | | lumbosacral | Tk Monreal MD | [place], | | | | | neuritis or | [address] | [place] | | | | | | ST [place] | [address] | | | | | radiculitis, | [place], [place] | Phone: | | | | | unspecified | [address] | [phone] | | | | | Procedures | Phone: | Fax: | | | | | SC INJECT | [phone] | [phone] | | | | | ANES/STEROID | Fax: | | | | | | FORAMEN | [phone] | | | | | | LUMBAR/SACRA | | | | | | | L W IMG | | | | | | | GUIDE ,1 | | | | | | | LEVEL SC | | | | | | [...] + + | 02/22/ | Hospital | [facility] | P[place], | Spinal stenosis of | | 2014 | Encounter | MED CTR XRAY [address] | [place] [address] | lumbar region with | | | | [address] [place] | [facility], | [id number] | | | | [place] [address] | [place] [address] | level moderately | | | | [phone] | [phone] | severe; | | | | | | 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 | | | | [...] to the fluoroscopy suite for fluoroscopically-guided | [facility] | | bilateral L5-S1 transforaminal epidural [...] [address] | [place] | [phone] | | [facility] | | [address] | | | - IMAGING | | | | + + + + + documented in this encounter Visit Diagnoses + + | Diagnosis | + + | Spinal stenosis of lumbar region with frgvmwrxesfiq-Q5-O8 level moderately severe | | Spinal stenosis, [...]
--- OUTSIDE RECORDS SUMMARY | ~2019-05-12 | XMS | Encounter Summary ---
Demographics + + + | Address | [address] | | | [place] [address] | + + + | Home Phone [...] [place], | | | | | [place] [address] | | + + + + + | Kellen Briones | ECON | [place] | | | | | [address] | | + + + + + Care Team Providers + +------+ + | Care Chairman And Ceo Name | Role | Phone | + +------+ + | Barb Marte | THANG | | + +------+ + Encounter Details +--------+ + + + + | Date | Type | Department | Care Team | Description | +--------+ + + + + | 04/09/ | Hospital | [facility] | Monster White MD | Lumbar stenosis with | | 2019 | Encounter | MED CTR XRAY [address] | [address]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 | | | | [place] | [place], | claudication | | | | [place] [address] | [place] [address] | | | | | [phone] | [phone] | | | | | | | [...] | | | | | | [place] [address] | | | | | | [phone] | | | | | | | | +--------+---------+ + + + | 07/30/ | Office | Cardiology | Agata Tinajero DO | | | 2019 | Visit | | [address] | | | | | | [place] | | | | | | [address] | | | | | | | [...]
--- OUTSIDE RECORDS SUMMARY | ~2019-05-12 | XMS | Encounter Summary ---
Demographics + + + | Address | [address] | | | [place] [address] | + + + | Home Phone [...] [place], | | | | | [place] [address] | | + + + + + | Kellen Briones | ECON | [place], [place] | | | | | [address] | | + + + + + Care Team Providers + +------+ + | Care Milling Machine Operator Name | Role | Phone | + +------+ + | Anna De Guzman PA-C | PCP | | + +------+ + Encounter Details +--------+ + + + + | Date | Type | Department | Care Team | Description | +--------+ + + + + | 10/21/ | Hospital | [facility] | IsakkaydenkaileeTk mathis | | | 2012 | Encounter | MED CTR XRAY [address] | T, [address] | | | | | [place] | [place], [place] | | | | | [place] [address] | [address] | | | | | [phone] | | | +--------+ + + + [...] | 2019 | Visit | | [address] | | | | | | [place] | | | | | | [place] [address] | | | | | | [phone] | | | | | | | | +--------+---------+ + + + | 07/30/ | Office | Cardiology | Agata Tinajero DO | | | 2019 | Visit | | [address] | | | | | | [place] | | | | | | [address] | | | | | | | [...] Performed At | + + + | [facility] | [place] | | Department [address] [place] [address] | [facility] | | [ rep [address]] [ rep [facility] | | st zip] Signed | - IMAGING | | | | | Patient Name: CLEMENTINE NUNEZ Physician: | | | WILFREDO. : 1940 Age: 72 Sex: F Unit #: [id number] | | | Exam Date: 10/21/12 Location: [facility] | | | Report #: [id number] Page: | | | %(RAD)RES..mtdd.print.filter("pg") of %(RAD) | | | RES..mtdd.print.filter("tpg") | | | | | | Accession Number: [id number] | | | PROCEDURE NOTE EPIDURAL STEROID [...] | | | Transcribed Date/Time: 10/21/2012 18:52 District Director: | | | <<Signature on File>> | | | Tk Monreal | | | MD Marissa11/07/12 0318 <Electronically signed by Tk Monreal | | | Marissa ALVARADO> Tk Ann MD 10/21/12 5416 | | | District Director: Zervantkristina Hhtybhzoihvwg50/21/13 9126 | | | | | + + + + + + + + | Performing | Address | City/State/Zipcode | Phone Number | | Organization | | | | + + + + + | [facility] | [address] | [place] | [phone] | | [facility] | | [address] | | | - IMAGING | | | | + + + + + documented in this encounter Visit Diagnoses Not on filedocumented in this encounter
--- OUTSIDE RECORDS SUMMARY | ~2019-05-12 | XMS | Encounter Summary ---
Demographics + + + | Address | [address] | | | [place] [address] | + + + | Home Phone [...] [place], | | | | | [place] [address] | | + + + + + | Kellen Briones | ECON | [place] | | | | | [address] | | + + + + + Care Team Providers + +------+ + | Care Case Finisher Name | Role | Phone | + +------+ + | Barb Marte | THANG | | + +------+ + Encounter Details +--------+ + + + + | Date | Type | Department | Care Team | Description | +--------+ + + + + | 11/05/ | Hospital | [facility] | Irving [place]il, | Status post cervical | | 2018 | Encounter | MED CTR XRAY [address] | DO [address] | spinal fusion | | | | [place] | [address] | | | | | [place] [address] | [address] | | | | | [phone] | | | +--------+ + + + [...] | | | | | | [place] [address] | | | | | | [phone] | | | | | | | | +--------+---------+ + + + | 07/30/ | Office | Cardiology | Agata Tinajero DO | | | 2019 | Visit | | [address] | | | | | | [place] | | | | | | [address] | | | | | | | [...]
--- OUTSIDE RECORDS SUMMARY | ~2019-05-12 | XMS | Encounter Summary ---
Demographics + + + | Address | [address] | | | [place] [address] | + + + | Home Phone [...] [place], | | | | | [place] [address] | | + + + + + | Kellen Briones | ECON | [place], [place] | | | | | [address] | | + + + + + Care Team Providers + +------+ + | Care Saw Handle Assembler Name | Role | Phone | [...] + + | 04/21/ | Telephone | [facility] | Monster White MD | Follow-up | | 2019 | | [facility] | [address] | (appointment) | | | | ORTHOPEDIC SPINE | [place] | | | | | [address] | [place] [address] | | | | | [place] | [phone] | | | | | [address] | | | | | | [phone] | | | +--------+ + + + [...] | | | | | | [place] [address] | | | | | | [phone] | | | | | | | | +--------+---------+ + + + | 07/30/ | Office | Cardiology | Agata Tinajero DO | | | 2019 | Visit | | [address] | | | | | | [place] | | | | | | [address] | | | | | | | | +--------+---------+ + + + documented as of this encounter Visit Diagnoses Not on filedocumented in this encounter"
--- OUTSIDE RECORDS SUMMARY | ~2019-05-12 | XMS | Encounter Summary ---
Demographics + + + | Address | [address] | | | [place] [address] | + + + | Home Phone [...] Author | [facility] | | | and [...] [place], | | | | | [place] [address] | | + + + + + | Kellen Briones | ECON | [place], [place] | | | | | [address] | | + + + + + Care Team Providers + +------+ + | Care Agriscience Technology Instructor Name | Role | Phone [...] + + | 04/04/ | Telephone | [facility] | Irving Becerril, | Imaging Only | | 2016 | | NEUROSURGERY [address] | DO [address] | (Cervical xray ) | | | | [address] | [address] [place], [place] | | | | | [place], [place] | [address] | | | | | [address] | | | | | | [phone] | | | +--------+ + + + [...] [place] | | | | | [place] [address] | | | | | | [phone] | | | | | | | [...]
--- OUTSIDE RECORDS SUMMARY | ~2019-05-12 | XMS | Encounter Summary ---
Demographics + + + | Address | [address] | | | [place] [address] | + + + | Home Phone [...] [place], | | | | | [place] [address] | | + + + + + | Kellen Briones | ECON | [place] | | | | | [address] | | + + + + + Care Team Providers + +------+ + | Care Police Inspector Name | Role | Phone | + +------+ + | Barb Marte | THANG | | + +------+ + Encounter Details +--------+ + + + + | Date | Type | Department | Care Team | Description | +--------+ + + + + | 12/29/ | Hospital | [facility] | Chavo Jacob, | DDD (degenerative | | 2019 | Encounter | MED CTR XRAY [address] | PA-C [address] | disc disease), | | | | [place] | [address] [place] | lumbar; Lumbar | | | | [place] [address] | [place] [address] | radiculopathy | | | | [phone] | [phone] | | | | | | | [...] | | | | | | [place] [address] | | | | | | [phone] | | | | | | | | +--------+---------+ + + + | 07/30/ | Office | Cardiology | Agata Tinajero DO | | | 2019 | Visit | | [address] | | | | | | [place] | | | | | | [address] | | | | | | | [...]
--- OUTSIDE RECORDS SUMMARY | ~2019-05-12 | XMS | Encounter Summary ---
Demographics + + + | Address | [address] | | | [place] [address] | + + + | Home Phone [...] [place], | | | | | [place] [address] | | + + + + + | Kellen Briones | ECON | [place], [place] | | | | | [address] | | + + + + + Care Team Providers + +------+ + | Care Human Resource Statistician Name | Role | Phone | + +------+ + | Anna De Guzman PA-C | PCP | | + +------+ + Encounter Details +--------+ + + + + | Date | Type | Department | Care Team | Description | +--------+ + + + + | 06/02/ | Hospital | [facility] | IsakkaydenkaileeTk mathis | | | 2012 | Encounter | MED CTR XRAY [address] | T, [address] | | | | | [place] | [place], [place] | | | | | [place] [address] | [address] | | | | | [phone] | | | +--------+ + + + [...] | | | | | | [place] [address] | | | | | | [phone] | | | | | | | | +--------+---------+ + + + | 07/30/ | Office | Cardiology | Agata Tinajero DO | | | 2019 | Visit | | [address] | | | | | | [place] | | | | | | [address] | | | | | | | [...] At | + + + | [facility] | [place] | | Department [address] [facility] | [facility] | | [ rep ct [address]] [ rep [facility] | | [facility]] Signed | - IMAGING | | | | | Patient Name: CLEMENTINE NUNEZ Physician: | | | WILFREDO. : 1940 Age: 73 Sex: F Unit #: [id number] | | | Exam Date: 06/02/13 [facility] | | | Report #: [id number] Page: | | | %(RAD)RES..mtdd.print.filter("pg") of %(RAD) | | | RES..mtdd.print.filter("tpg") | | | | | | Accession Number: [id number] | | | CERVICAL FACET INJECTIONS, 06/02/2013 [...] Transcribed | | | Date/Time: 06/03/2013 03:50 Mussel Farmer: | | | <<Signature on File>> | | | Tk Monreal | | | MD Marissa06/04/13 0730 <Electronically signed by Tk Monreal | | | Marissa ALVARADO> Tk Ann MD 06/02/13 1813 | | | Mussel Farmer: Zulema Twiflfrfxlvpx98/01/14 0350 | | | | | + + + + + + + + | Performing | Address | City/State/Zipcode | Phone Number | | Organization | | | | + + + + + | [facility] | [address] | [place] | [phone] | | [facility] | | [address] | | | - IMAGING | | | | + + + + + documented in this encounter Visit Diagnoses Not on filedocumented in this encounter
--- OUTSIDE RECORDS SUMMARY | ~2019-05-12 | XMS | Encounter Summary ---
Demographics + + + | Address | [address] | | | [place] [address] | + + + | Home Phone [...] [place], | | | | | [place] [address] | | + + + + + | Kellen Briones | ECON | [place] | | | | | [address] | | + + + + + Care Team Providers + +------+ + | Care Precinct Commanding Officer Name | Role | Phone | + +------+ + | Barb Marte | PCP | | + +------+ + Encounter Details +--------+ + + + + | Date | Type | Department | Care Team | Description | +--------+ + + + + | 01/31/ | Hospital | [facility] | Conversion | Pain | | 2018 | Encounter | CONVERSION [address] | Transaction, | | | | | [address] | Provider Unknown | | | | | [place], [place] | [phone] | | | | | [address] | | | | | | [phone] | | | +--------+ + + + [...] | | | | | | [place] [address] | | | | | | [phone] | | | | | | | | +--------+---------+ + + + | 07/30/ | Office | Cardiology | Agata Tinajero DO | | | 2019 | Visit | | [address] | | | | | | [place] | | | | | | [address] | | | | | | | [...]
--- OUTSIDE RECORDS SUMMARY | ~2019-05-12 | XMS | Encounter Summary ---
Demographics + + + | Address | [address] | | | [place] [address] | + + + | Home Phone [...] [place], | | | | | [place] [address] | | + + + + + | Kellen Briones | ECON | [place], [place] | | | | | [address] | | + + + + + Care Team Providers + +------+ + | Care Die Barber Name | Role | Phone | + [...] + + | 04/04/ | Telephone | [facility] | Irving Becerril, | Imaging Only | | 2016 | | NEUROSURGERY [address] | DO [address] | (Cervical xray ) | | | | [address] | [address] [place], [place] | | | | | [place], [place] | [address] | | | | | [address] | | | | | | [phone] | | | +--------+ + + + [...] [place] | | | | | [place] [address] | | | | | | [phone] | | | | | | | [...]
--- OUTSIDE RECORDS SUMMARY | ~2019-05-12 | XMS | Encounter Summary ---
Demographics + + + | Address | [address] | | | [place] [address] | + + + | Home Phone [...] [place], | | | | | [place] [address] | | + + + + + | Kellen Briones | ECON | [place], [place] | | | | | [address] | | + + + + + Care Team Providers + +------+ + | Care Director Of Student Life Name | Role | Phone | + [...] | | | | | [place], | [place] [address] | | | | | | [place] [address] | Phone: | | | | | | Phone: | [phone] | | | | | | [phone] | Fax: | | | | | | Fax: | [phone] | | | | | | [phone] | | +--------+ + + + + [...] + + | 09/03/ | Office | [facility] | Patrick Gaffney MD [address] | Mental status change | | 2012 | Visit | NEUROLOGY [place] | [address] | (Primary Dx); Sleep | | | | [address], | [address] [place], | disorder | | | | [address] [place] | [place] [address] | | | | | [place] [address] | [phone] | | | | | [phone] | | | +--------+---------+ + + + [...] Cc: Anna Draper MD [facility] Treatment +--------+---------+ + + + | Date | Type | Specialty | Care Team | Description | +--------+---------+ + + + | 06/04/ | Office | Orthopedic Surgery | Monster White MD | | | 2019 | Visit | | [address] | | | | | | [place] | | | | | | [place] [address] | | | | | | [phone] | | | | | | | | +--------+---------+ + + + | 07/30/ | Office | Cardiology | Agata Tinajero DO | | | 2019 | Visit | | [address] | | | | | | [place] | | | | | | [address] | | | | | | | [...]
--- OUTSIDE RECORDS SUMMARY | ~2019-05-12 | XMS | Encounter Summary ---
Demographics + + + | Address | [address] | | | [place] [address] | + + + | Home Phone [...] [place], | | | | | [place] [address] | | + + + + + | Kellen Briones | ECON | [place] | | | | | [address] | | + + + + + Care Team Providers + +------+ + | Care Panel Assembler Name | Role | Phone | [...] | | | [address] | Way [place], [place] | | | | | [place], [place] | [address] | | | | | [address] | | | | | | [phone] | | | +--------+ + + + [...] | 2019 | Visit | | [address] | | | | | | [place], | | | | | | [place] [address] | | | | | | [phone] | | | | | | | | +--------+---------+ + + + | 07/30/ | Office | Cardiology | Agata Tinajero DO | | | 2019 | Visit | | [address] | | | | | | [place] | | | | | | [address] | | | | | | | [...] 1940 | | | Performing Physician: BUCK STOO MD | | | | | | [...] | A Obed: 1.09 m/s MV Dec [place]: 3.29 m/s2 MV DecT: 238.09 ms | [...] TR Vmax: 2.69 m/s | | | Machine Tailer: DBS Authenticated by: BUCK SOTO MD Report | | | Date/Time: -- [id number]_[id number]:20:29 | | + + + + + [...] | 4.30 cmLVPWd: 1.07 cmLVOT Area: 3.11 [id number] Diam: 1.99 cm%FS: 46.50 %EF(Teich): | | [...] mlLAESV Index (A-L): 19.79 ml/m2LAAs A2C: 12.56 pq9TOFYO | | A-L A2C: 31.66 mlLALs A2C: 4.23 cmLAAs A4C: 13.43 gc7SSYTT A-L A4C: 33.50 | | mlLALs A4C: 4.57 cmRAAs: 11.82 on3YHAZO A-L: 26.21 mlRAESV MOD: 26.46 mlRALs: | | 4.52 cmTAPSE: 1.59 cmAV maxP.72 mmHgAV meanP.52 mmHgAV Vmax: 1.63 m/Shreyas | | Vmean: 1.09 m/Shreyas VTI: 32.89 cmAVA Vmax: 2.19 cm2AVA (VTI): 1.98 ni4YLGU | | (Vmax): 0.00 cm2/m2AVAI (VTI): 0.00 cm2/m2LVOT maxP.34 mmHgLVOT meanP.29 | | mmHgLVSI Dopp: 38.17 ml/m2LVSV Dopp: 65.27 mlLVOT Vmax: 1.15 m/sLVOT Vmean: | | 0.68 m/sLVOT VTI: 20.94 cmMV A Obed: 1.09 m/sMV Dec [place]: 3.29 m/s2MV DecT: | | 238.09 msMV E Obed: 0.78 m/sMV E/A Ratio: 0.71MV PHT: 69.04 msMVA By PHT: 3.18 | | zm6Cmrzhm e': 0.05 m/sSeptal E/e': 15.64Lateral e': 0.06 m/sLateral E/e': | | 11.34RAP: 5 mmHgRVSP: 33.95 mmHgTR maxP.95 mmHgTR Vmax: 2.69 m/s | | Machine Tailer: DBSAuthenticated by: Armen ROY Date/Time: -- | | 06_[id number]_24:20:29 IMPRESSION: 1. Overall left ventricular systolic function [...] A Obed: 1.09 m/s | |MV Dec [place]: 3.29 m/s2 | |MV DecT: 238.09 ms [...] |TR Vmax: 2.69 m/s | | | |Machine Tailer: DBS | |Authenticated by: BUCK SOTO MD | |Report Date/Time: 22_[id number]_22:20:29 | | | |IMPRESSION: | |1. Overall [...]
--- OUTSIDE RECORDS SUMMARY | ~2019-05-12 | XMS | Encounter Summary ---
Demographics + + + | Address | [address] | | | [place] [address] | + + + | Home Phone [...] [place], | | | | | [place] [address] | | + + + + + | Kellen Briones | ECON | [place], [place] | | | | | [address] | | + + + + + Care Team Providers + +------+ + | Care Channel Opener Name | Role | Phone | + [...] + | 03/05/ | Telephone | [facility] | Tk Ann | Other (Reschedule | | 2012 | | PHYSIATRY [address] | TMD [address] | injection) | | | | [place], | [place], [place] | | | | | [place] [address] | [address] | | | | | [phone] | | | +--------+ + + + [...] | | | | | | [place] [address] | | | | | | [phone] | | | | | | | | +--------+---------+ + + + | 07/30/ | Office | Cardiology | Agata Tinajero DO | | | 2019 | Visit | | [address] | | | | | | [place] | | | | | | [address] | | | | | | | | +--------+---------+ + + + documented as of this encounter Visit Diagnoses Not on filedocumented in this encounter"
--- OUTSIDE RECORDS SUMMARY | ~2019-05-12 | XMS | Encounter Summary ---
Demographics + + + | Address | [address] | | | [place] [address] | + + + | Home Phone [...] [place], | | | | | [place] [address] | | + + + + + | Kellen Briones | ECON | [place], [place] | | | | | [address] | | + + + + + Care Team Providers + +------+ + | Care Arc Welder Name | Role | Phone | [...] | (Primary Dx); | | | | [place], | [address] [place], | Spinal stenosis of | | | | [place] [address] | [place] [address] | lumbar region with | | | | [phone] | [phone] | oykkqphwxhlpz-V6-S6 | | | | | | level [...] and narcotic medications use; she currently uses [place], Flexeril and ga bapentin. Patient's medications, allergies, [...] 2. Spinal stenosis of lumbar region with pojzyxcdebtee-M6-R0 level moderately severe 3. DDD (degenerative disc [...] | 2019 | Visit | | [address] [facility] [facility] | | | | | | [place], | | | | | | [place] [address] | | | | | | [phone] | | | | | | | | +--------+---------+ + + + | 07/30/ | Office | Cardiology | Agata Tinajero DO | | | 2020 | Visit | | [address] | | | | | | [place], [place] | | | | | | [address] | | | | | | | [...] radiculopathy ICD-10 Code M54.16 Clementine [place] | [facility] | | Annabella presents to the fluoroscopy suite for [facility] | | fluoroscopically-guided bilateral L5-S1 [...] ST. | [address] | [place] | [phone] | | [facility] | | [address] | | | - IMAGING | | | | + + + + + documented in this encounter Visit Diagnoses + + | Diagnosis | + + | Lumbar radiculopathy - Primary Thoracic or lumbosacral neuritis or radiculitis, | | unspecified | + + | Spinal stenosis of lumbar region with qlkwxqphipkiv-N7-G4 level moderately severe | | Spinal stenosis, [...]
--- OUTSIDE RECORDS SUMMARY | ~2019-05-12 | XMS | Encounter Summary ---
Demographics + + + | Address | [address] | | | [place] [address] | + + + | Home Phone [...] [place], | | | | | [place] [address] | | + + + + + | Kellen Briones | ECON | [place], [place] | | | | | [address] | | + + + + + Care Team Providers + +------+ + | Care Franchise Field Consultant Name | Role | Phone | [...] | | | claudication | B | [address] | | | | | Procedures | [place], [place] | Phone: | | | | | MRI Lumbar | [address] | [phone] | | | | | Spine wo | Phone: | Fax: | | | | | Contrast | [phone] | [phone] | | | | | | Fax: | | | | | | | [phone] | | +--------+--------+ + + + + Encounter Details +--------+ + + + + | Date | Type | Department | Care Team | Description | +--------+ + + + + | 04/09/ | Hospital | [facility] | Monster White MD | | | 2019 | Encounter | MED CTR MRI [address] | [address] | | | | | [place], | [place], | | | | | [place] [address] | [place] [address] | | | | | [phone] | [phone] | | | | | | | [...] | | | | | [place] [address] | | | | | | [phone] | | | | | | | | +--------+---------+ + + + | 07/30/ | Office | Cardiology | Agata Tinajero DO | | | 2019 | Visit | | [address] | | | | | | [place] | | | | | | [address] | | | | | | | [...] effects the | | right side at L1-Y5qbpmn it is severe and bilaterally at L5-S1 [...]
--- OUTSIDE RECORDS SUMMARY | ~2019-05-12 | XMS | Encounter Summary ---
Demographics + + + | Address | [address] | | | [place] [address] | + + + | Home Phone [...] [place], | | | | | [place] [address] | | + + + + + | Kellen Briones | ECON | [place], [place] | | | | | [address] | | + + + + + Care Team Providers + +------+ + | Care Dressmaker Or Tailor Name | Role | Phone | + [...] side (Primary Dx); | | | | [place], | [place] | Facet arthritis of | | | | [place] [address] | [address] | cervical region; DDD | | | | [phone] | | (degenerative disc | | | [...] with | | | | | | hxnbydeewdjhr-K2-C1 | | | | | | level [...] of the procedure you must provide a minibus driver to take you home. For all [...] She did also receive epidural injections with md on two occasions. The most recent were [...] 8. Spinal stenosis of lumbar region with ufhqigkqbxitc-D3-Q1 level moderately severe 9. Facet arthritis of [...] of the lumbar spine at [facility]. I previously requested that these be placed [...] | 2018 | Visit | | [address] | | | | | | [place], | | | | | | [place] [address] | | | | | | [phone] | | | | | | | | +--------+---------+ + + + | 07/30/ | Office | Cardiology | Agata Tinajero DO | | | 2020 | Visit | | [address] | | | | | | [place], [place] | | | | | | [address] | | | | | | | [...] + + | Performing | Address | City/State[facility] | Phone Number | | Organization | | | | + + + + + | [facility] | [address] | [place], [place] | [phone] | | [facility] | | [address] | | | - IMAGING | | [...] ICD-9 Code 721.0 Ms. Clementine Winchester | [facility] | | presents to the fluoroscopy suite for fluoroscopically-guided C4-C5, | [facility] | | C5-C6 and C6-C7 facet [...] [address] 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
--- OUTSIDE RECORDS SUMMARY | ~2019-05-12 | XMS | Encounter Summary ---
Demographics + + + | Address | [address] | | | [place] [address] | + + + | Home Phone [...] [place], | | | | | [place] [address] | | + + + + + | Kellen Briones | ECON | [place] | | | | | [address] | | + + + + + Care Team Providers + +------+ + | Care Advanced Practice Psychiatric Nurse Name | Role | Phone | [...] + + | 04/02/ | Office | [facility] | Agata Tinajero DO | Atherosclerosis of | | 2019 | Visit | CARDIOLOGY [place] | [address] | [place] coronary | | | | [address] | [place], [place] | artery of [place] | | | | [address] | [id number] | heart without angina | | | | [place] | | pectoris (Primary | | | | [address] | | Dx); Essential | | | | [phone] | | hypertension; | | | | [...] Agata Tinajero, - 04/02/2019 2:00 PM PDT [facility] Cardiology Follow Up Note Reason for Consultation: Chest pain Requesting Physician: Barb Marte History Obtained From: patient HISTORY OF PRESENT ILLNESS: Cardiac Problem List 1. CAD s/p CABGx4 in [facility] 2009 S/P WEBSTER to LAD, SVG-OM1, [...] proximal segment and was filling distally via horq-vm-hyhlm collaterals. LEFT VENTRICULOGRAM Left ventriculogram revealed normal left ventricular systolic function with ejection fraction of 60% with severe posterobasal hypokinesis. Carotid US: AAA screening: Lower extremity US: OTHERS: ASSESSMENT & PLAN 1. Pre operative cardiovascular exam 2. CAD s/p CABGx4 in [facility] 2009 S/P WEBSTER to LAD, SVG-OM1, OM2, PDA 2009 3. HTN 4. History CVA 5. HLD 6. DM II 7. Arthritis 8. Asthma 9. Chronic pain 10. DDD 11. GERD 12. History right breast CA s/p mastectomy and chemo - The patient is a 78-year-old female with the above past medical history who presents to [facility] cardiology office for follow up. [...] | 2018 | Visit | | [address] | | | | | | [place], | | | | | | [place] [address] | | | | | | [phone] | | | | | | | | +--------+---------+ + + + | 07/30/ | Office | Cardiology | Agata Tinajero DO | | | 2019 | Visit | | [address] | | | | | | [place] | | | | | | [address] | | | | | | | | +--------+---------+ + + + documented as of this encounter Visit Diagnoses + + | Diagnosis | + + | Atherosclerosis of [place] coronary artery of [place] heart without angina pectoris - | | Primary | + + | Essential hypertension Unspecified essential hypertension | + + | Cerebrovascular accident (CVA), unspecified mechanism (HCC) | + + | Other hyperlipidemia | + + | H/O CABG (coronary artery bypass graft) Postsurgical aortocoronary bypass status | + + documented in this encounter
--- OUTSIDE RECORDS SUMMARY | ~2019-05-12 | XMS | Encounter Summary ---
Demographics + + + | Address | [address] | | | [place] [address] | + + + | Home Phone [...] [place], | | | | | [place] [address] | | + + + + + | Kellen Briones | ECON | [place], [place] | | | | | [address] | | + + + + + Care Team Providers + +------+ + | Care Etl Bi Developer Name | Role | Phone | [...] + + | 08/19/ | Office | [facility] | Mono Diaz, | Lumbar radiculopathy | | 2019 | Visit | PHYSIATRY [address] | PA-C [address] | (Primary Dx) | | | | [place], | [address] [place] | | | | | [place] [address] | [place] [address] | | | | | [phone] | [phone] | | | | | | | [...] press against a nerve. Date Last Reviewed: 08/01/201719997927-0664 [employer]. [address] [place] [address], [place] [address]. All righ ts reserved. This information is [...] and narcotic medications use; she currently uses [place], Flexeril and [place] bapentin. Patient's medications, allergies, [...] (multiple sessions over the years) and career development counselor. Unfortunately Clementine Winchester continues to have [...] | 2019 | Visit | | [address] | | | | | | [place], | | | | | | [place] [address] | | | | | | [phone] | | | | | | | | +--------+---------+ + + + | 07/30/ | Office | Cardiology | Agata Tinajero DO | | | 2019 | Visit | | [address] | | | | | | [place] | | | | | | [address] | | | | | | | [...] + | Performing | Address | City/State/[facility] | Phone Number | [...]
--- OUTSIDE RECORDS SUMMARY | ~2019-05-12 | XMS | Encounter Summary ---
Demographics + + + | Address | [address] | | | [place] [address] | + + + | Home Phone [...] [place], | | | | | [place] [address] | | + + + + + | Kellen Briones | ECON | [place], [place] | | | | | [address] | | + + + + + Care Team Providers + +------+ + | Care English As A Second Language Teacher Name | Role | Phone | [...] | Cervical | [place], | [address] | | | | | spondylosis | Tk Monreal MD | [place], | | | | | Procedures | [address] | [place] | | | | | [place] | [place] | [address] | | | | | DX/THER AGNT | [facility], [place] | Phone: | | | | | [place] | [address] | [phone] | | | | | [place], | Phone: | Fax: | | | | | | [phone] | [phone] | | | | | CERV/THORAC, | Fax: | | | | | | 1ST LEVEL | [phone] | | | | | | [place] IN[place] | | | | | | | DX/THER AGNT | | | | | | | [place] | | | | | | | [place], | | | | | | | | | | | | | | CERV/THORAC, | | | | | | | 2ND LEVEL | | | | | | | [place] INJ | | | | | | [...] + + | 11/29/ | Hospital | [facility] | [place], | Cervical stenosis of | | 2016 | Encounter | MED CTR XRAY [address] | [address] | spinal canal; | | | | [place] | [facility], | Spondylolisthesis of | | | | [place] [address] | [place] [address] | cervical region; | | | | [phone] | [phone] | Neck pain on right | | | | | | side; Facet | | | | | Clinical Support Manager, [facility] | arthritis of | | | [...] | | | | | | [place] [address] | | | | | | [phone] | | | | | | | | +--------+---------+ + + + | 07/30/ | Office | Cardiology | Agata Tinajero DO | | | 2019 | Visit | | [address] | | | | | | [place] | | | | | | [address] | | | | | | | [...] presents to the fluoroscopy suite for fluoroscopically-guided [facility] | | bilateral right C3, C4 [...] [address] | [place] | [phone] | | [facility] | | [address] | | | - IMAGING | | [...]
--- OUTSIDE RECORDS SUMMARY | ~2019-05-12 | XMS | Encounter Summary ---
Demographics + + + | Address | [address] | | | [place] [address] | + + + | Home Phone [...] [place], | | | | | [place] [address] | | + + + + + | Kellen Briones | ECON | [place], [place] | | | | | [address] | | + + + + + Care Team Providers + +------+ + | Care Automobile Mechanic Motor Name | Role | Phone | + [...] + + | 10/13/ | Telephone | [facility] | Tk Ann | Appointment | | 2012 | | PHYSIATRY [address] | T, [address] | | | | | [place], | [place], [place] | | | | | [place] [address] | [address] | | | | | [phone] | | | +--------+ + + + [...] [address] | | | | | | [phone] | | | | | | | | +--------+---------+ + + + | 07/30/ | Office | Cardiology | Agata Tinajero DO | | | 2019 | Visit | | [address] | | | | | | [place] | | | | | | [address] | | | | | | | | +--------+---------+ + + + documented as of this encounter Visit Diagnoses Not on filedocumented in this encounter"
--- OUTSIDE RECORDS SUMMARY | ~2019-05-12 | XMS | Encounter Summary ---
Demographics + + + | Address | [address] | | | [place] [address] | + + + | Home Phone [...] [place], | | | | | [place] [address] | | + + + + + | Kellen Briones | ECON | [place], [place] | | | | | [address] | | + + + + + Care Team Providers + +------+ + | Care Project Account Manager Name | Role | Phone [...] | arthritis of | [address] | [place], [place] | | | | | cervical | [place], [place] | [address] Phone: | | | | | region DDD | [address] | [phone] | | | | | (degenerativ | Phone: | Fax: | | | | | e disc | [phone] | [phone] | | | | | disease), | Fax: | | | | | | cervical | [phone] | | | | | | Cervical | | | | | | | stenosis of | | | | | | | spinal canal | | | +--------+ + + + + + Encounter Details +--------+---------+ + + + | Date | Type | Department | Care Team | Description | +--------+---------+ + + + | 02/01/ | Office | [facility] | Irving Becerril, | Spondylolisthesis, | | 2016 | Visit | NEUROSURGERY [address] | DO [address] | cervical region | | | | [address] | [address] [place], [place] | (Primary Dx); 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[place], [place]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, | | | | [address] | | cervical region; | | | | [phone] | | Cervical myelopathy | | | | | | ([facility]); Cervical | | | | [...] 1:30 PM PDT Irving Becerril DO [address] [facility], [address] [place] [address] FAX: NEUROSURGERY HISTORY AND PHYSICAL EXAMINATION CHIEF [...] Diagnosis Date Coronary artery disease Diabetes mellitus ([facility]) Hypertension Stroke ([facility]) Syncope and collapse Cancer ([facility]) Breast Hyperlipidemia AK (myocardial infarction) ([facility]) GERD (gastroesophageal reflux disease) Asthma Arthritis Lumbar radiculopathy 07/23/2012 DDD (degenerative disc disease), lumbar 07/23/2012 Spinal stenosis of lumbar region with yrssppywvgwgj-R4-U2 level moderately severe 2012 Facet arthritis of [...] 1989' Mastectomy, radical 1987 Right Breast reconstruction 8153-3725 ABout 10 surgeries Bone spur left foot [...] Intrinsics 5 4+ Ulnar Intrinsics 5 4+ [employer] Maintenance Strength 4+ 4+ Hip Flexion 5 5 [...] Syncope and collapse Cancer (HCC) Breast Hyperlipidemia AK (myocardial infarction) (HCC) GERD (gastroesophageal reflux disease) Asthma Arthritis Lumbar radiculopathy 07/23/2012 DDD (degenerative disc disease), lumbar 07/23/2012 Spinal stenosis of lumbar region with nmqgpymdnkces-L3-D4 level moderately severe 2012 Facet arthritis of [...] | Monster hWite MD | | | 2019 | Visit | | [address] [facility] | | | | | | [place], | | | | | | [place] [address] | | | | | | [phone] | | | | | | | | +--------+---------+ + + + | 07/30/ | Office | Cardiology | Agata Tinajero DO | | | 2019 | Visit | | [address] | | | | | | [place] | | | | | | [address] | | | | | | | [...]
--- OUTSIDE RECORDS SUMMARY | ~2019-05-12 | XMS | Encounter Summary ---
Demographics + + + | Address | [address] | | | [place] [address] | + + + | Home Phone [...] [place], | | | | | [place] [address] | | + + + + + | Kellen Briones | ECON | [place], [place] | | | | | [address] | | + + + + + Care Team Providers + +------+ + | Care Ham Clerk Name | Role | Phone | [...] | radiculopath | Tk Monreal MD | [place], | | | | | y | [address] | [place] | | | | | Procedures | [place] | [address] | | | | | SD INJECT | [facility], [place] | Phone: | | | | | ANES/STEROID | [address] | [phone] | | | | | FORAMEN | Phone: | Fax: | | | | | LUMBAR/SACRA | [phone] | [phone] | | | | | L W IMG | Fax: | | | | | | GUIDE ,1 | [phone] | | | | | | LEVEL [...] + + | 06/27/ | Hospital | [facility] | Bogdanowicz, | Lumbar | | 2017 | Encounter | MED CTR XRAY [address] | [address] | radiculopathy; | | | | [place] | [facility], | Spinal stenosis of | | | | [place] [address] | [place] [address] | lumbar region with | | | | [phone] | [phone] | falwocxulzayi-S7-X6 | | | | | | level moderately | | | | | Veterans Service Officer, [place] | severe; DDD | | | [...] | | | | | | [place] [address] | | | | | | [phone] | | | | | | | | +--------+---------+ + + + | 07/30/ | Office | Cardiology | Agata Tinajero DO | | | 2019 | Visit | | [address] | | | | | | [place] | | | | | | [address] | | | | | | | [...] with | | | | | | dyoxedauocjxe-M6-O4 | | | | | | level [...] Lumbar radiculopathy ICD-10 Code M54.16 Clementine | [facility] | | Lizett Winchester presents to the fluoroscopy suite for [facility] | | fluoroscopically-guided bilateral L5-S1 [...] ST. | [address] | [place], [place] | [phone] | | [facility] | | [address] | | | - IMAGING | | | | + + + + + documented in this encounter Visit Diagnoses + + | Diagnosis | + + | Lumbar radiculopathy Thoracic or lumbosacral neuritis or radiculitis, unspecified | + + | Spinal stenosis of lumbar region with fedicgwrrzbnt-E3-U5 level moderately severe | | Spinal stenosis, [...]
--- OUTSIDE RECORDS SUMMARY | ~2019-05-12 | XMS | Encounter Summary ---
Demographics + + + | Address | [address] | | | [place] [address] | + + + | Home Phone [...] [place], | | | | | [place] [address] | | + + + + + | Kellen Briones | ECON | [place], [place] | | | | | [address] | | + + + + + Care Team Providers + +------+ + | Care Creative Intern Name | Role | Phone | + +------+ + | Anna De Guzman PA-C | PCP | | + +------+ + Encounter Details +--------+ + + + + | Date | Type | Department | Care Team | Description | +--------+ + + + + | 06/04/ | Hospital | [facility] | RealRamon das | Neck pain | | 2012 - | Encounter | MED CTR XRAY [address] | FMD [address] | | | | | [address] [place] | [place], [place] | | | 06/06/ | | [place] [address] | [address] | | | 2012 | | [phone] | | | | | | [...] | 2019 | Visit | | [address] | | | | | | [place], | | | | | | [place] [address] | | | | | | [phone] | | | | | | | | +--------+---------+ + + + | 07/30/ | Office | Cardiology | Agata Tinajero DO | | | 2019 | Visit | | [address] | | | | | | [place] | | | | | | [address] | | | | | | | [...] Performed At | + + + | [facility] Diagnostic Imaging | [place] | | Department [address] [place] [address] | [facility] | | [ rep ct street[address]] [ rep ct [facility] | | st zip] Signed | - IMAGING | | | | | Patient Name: CLEMENTINE WINCHESTER Physician: | | | ARRE.01 : 1940 Age: 72 Sex: F Unit #: [id number] | | | Exam Date: 06/04/12 [place] [facility] | | | Report #: [id number] Page: | | | %(RAD)RES..mtdd.print.filter("pg") of %(RAD) | | | RES..mtdd.print.filter("tpg") | | | | | | Accession Number: [id number] | | | CERVICAL SPINE, 06/04/2012 CLINICAL [...] Transcribed | | | Date/Time: 06/04/2012 17:12 Seasonal Sales Associate: | | | <<Signature on File>> | | | | | | Gordon Burrell MD06/05/12 0852 <Electronically signed by | | | Gordon Burrell MD> Gordon Burrell MD 06/04/12 | | | 1701 Seasonal Sales Associate: [employer] Viuxpzwtpttoq62/02/13 1712 | | | Ramon Real MD | | + + + + + + + + | Performing | Address | City/State/Zipcode | Phone Number | | Organization | | | | + + + + + | [address] | [address] | [place] | [phone] | | [facility] | | [address] | | | - IMAGING | | | | + + + + + documented in this encounter Visit Diagnoses + + | Diagnosis | + + | Neck pain Cervicalgia | + + documented in this encounter
--- OUTSIDE RECORDS SUMMARY | ~2019-05-12 | XMS | Encounter Summary ---
Demographics + + + | Address | [address] | | | [place] [address] | + + + | Home Phone [...] [place], | | | | | [place] [address] | | + + + + + | Kellen Briones | ECON | [place], [place] | | | | | [address] | | + + + + + Care Team Providers + +------+ + | Care Cabinetmaker Maintenance Name | Role | Phone | [...] | side; Facet | | | | [place], | [address] [place], | arthritis of | | | | [place] [address] | [place] [address] | cervical region | | | | [phone] | (HCC); DDD | | | | [...] | | | | | | [place] [address] | | | | | | [phone] | | | | | | | | +--------+---------+ + + + | 07/30/ | Office | Cardiology | Agata Tinajero DO | | | 2019 | Visit | | [address] | | | | | | [place] | | | | | | [address] | | | | | | | [...]
--- OUTSIDE RECORDS SUMMARY | ~2019-05-12 | XMS | Encounter Summary ---
Demographics + + + | Address | [address] | | | [place] [address] | + + + | Home Phone [...] [place], | | | | | [place] [address] | | + + + + + | Kellen Briones | ECON | [place], [place] | | | | | [address] | | + + + + + Care Team Providers + +------+ + | Care Case Monitor Name | Role | Phone | + [...] | Cervical | Marissa, | [address] | | | | | spondylosis | Tk Monreal MD | [place], | | | | | Procedures | [address] | [place] | | | | | [place] IN[place] | [place] | [address] | | | | | DX/THER AGNT | [facility], [place] | Phone: | | | | | [place] | [address] | [phone] | | | | | [address] [place], | Phone: | Fax: | | | | | | [phone] | [phone] | | | | | CERV/THORAC, | Fax: | | | | | | 1ST LEVEL | [phone] | | | | | | [place] IN[place] | | | | | | | DX/THER AGNT | | | | | | | [place] | | | | | | | [place] [place], | | | | | | | | | | | | | | CERV/THORAC, | | | | | | | 2ND LEVEL | | | | | | | [place] INJ | | | | | | [...] + + | 03/08/ | Hospital | [facility] | [place], | Neck pain on right | | 2015 | Encounter | MED CTR XRAY [address] | [address] | side; DDD | | | | [place] | [facility], | (degenerative disc | | | | [place] [address] | [place] [address] | disease), cervical; | | | | [phone] | [phone] | Facet arthritis of | | | | | | cervical region | | | | | Brand Sales ManagerJordan | | +--------+ + + + + [...] | 2019 | Visit | | [address] | | | | | | [place] | | | | | | [place] [address] | | | | | | [phone] | | | | | | | | +--------+---------+ + + + | 07/30/ | Office | Cardiology | Agata Tinajero DO | | | 2020 | Visit | | [address] | | | | | | [place], [place] | | | | | | [address] | | | | | | | [...] 721.0 Clementine Winchester presents to the | [facility] | | fluoroscopy suite for fluoroscopically-guided right C3-C4, C4-C5 and [facility] | | C5-C6 facet injections as [...] Performing | Address | City/State[facility] | Phone Number | | Organization | | | | + + + + + | [address] | [address] | [place] | [phone] | | [facility] | | [address] | | | - IMAGING | | [...]
--- OUTSIDE RECORDS SUMMARY | ~2019-05-12 | XMS | Encounter Summary ---
Demographics + + + | Address | [address] | | | [place] [address] | + + + | Home Phone [...] [place], | | | | | [place] [address] | | + + + + + | Kellen Briones | ECON | [place], [place] | | | | | [address] | | + + + + + [...] + + | 08/19/ | Office | [facility] | Mono Diaz, | Lumbar radiculopathy | | 2019 | Visit | PHYSIATRY [address] | PA-C [address] | (Primary Dx) | | | | [place], | [address] [place] | | | | | [place] [address] | [place] [address] | | | | | [phone] | [phone] | | | | | | | [...] press against a nerve. Date Last Reviewed: 08/01/201719998743-9233 [employer]. [address] [place] [address], [place] [address]. All righ ts reserved. This information is [...] and narcotic medications use; she currently uses [place], Flexeril and [place] bapentin. Patient's medications, allergies, [...] PT (multiple sessions over the years) and morning caregiver. Unfortunately Clementine Winchester continues to have [...] | 2018 | Visit | | [address] | | | | | | [place], | | | | | | [place] [address] | | | | | | [phone] | | | | | | | | +--------+---------+ + + + | 07/30/ | Office | Cardiology | Agata Tinajero DO | | | 2019 | Visit | | [address] | | | | | | [place] | | | | | | [address] | | | | | | | [...] Performing | Address | City/State/[facility] | Phone Number | | [...]
--- OUTSIDE RECORDS SUMMARY | ~2019-05-12 | XMS | Encounter Summary ---
Demographics + + + | Address | [address] | | | [place] [address] | + + + | Home Phone [...] [place], | | | | | [place] [address] | | + + + + + | Kellen Briones | ECON | [place], [place] | | | | | [address] | | + + + + + Care Team Providers + +------+ + | Care Displayer Merchandise Name | Role | Phone | + [...] | Lumbosacral | Marissa, | [address] | | | | | spondylosis | Tk Monreal MD | [place], | | | | | without | [address] | [place] | | | | | myelopathy | [place] | [address] | | | | | Procedures | [place], [place] | Phone: | | | | | [place] | [address] | [phone] | | | | | DX/THER AGNT | Phone: | Fax: | | | | | PARAVERT | [phone] | [phone] | | | | | FACET JOINT, | Fax: | | | | | | | [phone] | | | | | | CERV/THORAC, [...] + + | 09/24/ | Hospital | [facility] | Tk Ann | Neck pain on right | | 2013 | Encounter | MED CTR XRAY [address] | T, [address] | side; Facet | | | | [address] [place] | [place], [place] | arthritis of | | | | [place] [address] | [id number] | cervical region | | | | [phone] | | | | | | | [place] ManagerJordan | | +--------+ + + + [...] | | | | | | [place] [address] | | | | | | [phone] | | | | | | | | +--------+---------+ + + + | 07/30/ | Office | Cardiology | Agata Tinajero DO | | | 2019 | Visit | | [address] | | | | | | [place] | | | | | | [address] | | | | | | | [...] ICD-9 Code 721.0 Ms. Clementine Winchester | [facility] | | presents to the fluoroscopy suite for fluoroscopically-guided C4-C5, [place] | | C5-C6 and C6-C7 facet injections [...] + | [facility] | [address] | [place], [place] | [phone] | | [facility] | | [address] | | | - IMAGING | | [...]
--- OUTSIDE RECORDS SUMMARY | ~2019-05-12 | XMS | Encounter Summary ---
Demographics + + + | Address | [address] | | | [place] [address] | + + + | Home Phone [...] [place], | | | | | [place] [address] | | + + + + + | Kellen Briones | ECON | [place], [place] | | | | | [address] | | + + + + + Care Team Providers + +------+ + | Care Safekeeping Clerk Name | Role | Phone | [...] | Lumbar | [place]ieren[place], | [address] | | | | | radiculopath | Tk Monreal MD | [place], | | | | | y | [address] | [place] | | | | | Procedures | [place] | [address] | | | | | [place] INJECT | [place], [place] | Phone: | | | | | ANES/STEROID | [address] | [phone] | | | | | [place] | Phone: | Fax: | | | | | LUMBAR/SACRA | [phone] | [phone] | | | | | L W IMG | Fax: | | | | | | GUIDE ,1 | [phone] | | | | | | LEVEL [...] + | 02/24/ | Hospital | [facility] | Mono Diaz, | Lumbar radiculopathy | | 2018 | Encounter | MED CTR XRAY [address] | PA-C [address] | | | | | [place] | [address] [place] | | | | | [place] [address] | [place] [address] | | | | | [phone] | [phone] | | | | | | | | | | | | Paper Pattern InspectorJordan | | +--------+ + + + + [...] | | | | | | [place] [address] | | | | | | [phone] | | | | | | | | +--------+---------+ + + + | 07/30/ | Office | Cardiology | Agata Tinajero DO | | | 2019 | Visit | | [address] | | | | | | [place] | | | | | | [address] | | | | | | | [...]
--- OUTSIDE RECORDS SUMMARY | ~2019-05-12 | XMS | Encounter Summary ---
Demographics + + + | Address | [address] | | | [place] [address] | + + + | Home Phone [...] [place], | | | | | [place] [address] | | + + + + + | Kellen Briones | ECON | [place], [place] | | | | | [address] | | + + + + + Care Team Providers + +------+ + | Care Dry Primer Powder Blender Name | Role | Phone | [...] Thoracic or | [place], | [address] | | | | | lumbosacral | Tk Monreal MD | [place], | | | | | neuritis or | [address] | [place] | | | | | | [place] | [address] | | | | | radiculitis, | [place], [place] | Phone: | | | | | unspecified | [address] | [phone] | | | | | Procedures | Phone: | Fax: | | | | | [place] INJECT | [phone] | [phone] | | | | | ANES/STEROID | Fax: | | | | | | [place] | [phone] | | | | | | LUMBAR/SACRA [...] lumbar region with | | | | [address] [place] | [facility], | dsucvobupsvtn-R0-G4 | | | | [place] [address] | [place] [address] | level moderately | | | | [phone] | [phone] | severe; | | | | | | Spondylolisthesis of | | | | | Call Center ReceptionistCandace | lumbar region; | | | | [...] | 2019 | Visit | | [address] | | | | | | [place], | | | | | | [place] [address] | | | | | | [phone] | | | | | | | | +--------+---------+ + + + | 07/30/ | Office | Cardiology | Lior DO Agata | | | 2020 | Visit | | [address] | | | | | | [place] | | | | | | [address] | | | | | | | [...] | | TRANSFORAMINAL | | PDT | qsmxrrfexubdf-R7-V6 | results section. | | | | [...] to the fluoroscopy suite for fluoroscopically-guided | [facility] | | bilateral L5-S1 transforaminal epidural [...] [address] | [place] | [phone] | | [facility] | | [address] | | | - IMAGING | | | | + + + + + documented in this encounter Visit Diagnoses + + | Diagnosis | + + | Spinal stenosis of lumbar region with clywfnahdhjiu-Q3-O5 level moderately severe | | Spinal stenosis, [...]
--- OUTSIDE RECORDS SUMMARY | ~2019-05-12 | XMS | Encounter Summary ---
Demographics + + + | Address | [address] | | | [place] [address] | + + + | Home Phone [...] [place], | | | | | [place] [address] | | + + + + + | Kellen Briones | ECON | [place], [place] | | | | | [address] | | + + + + + Care Team Providers + +------+ + | Care Warp Bleaching Vat Tender Name | Role | Phone | [...] + + | 07/28/ | Telephone | [facility] | Patrick Gaffney MD [address] | Records Request | | 2012 | | [facility] | [facility] | | | | | [address] [facility], | BRAD D JIGNA | | | | | [place] [address] [place] [address] | [place] [address] | | | | | [place] [address] | [phone] | | | | | [phone] | | | +--------+ + + + [...] | | | | | | [place] [address] | | | | | | [phone] | | | | | | | | +--------+---------+ + + + | 07/30/ | Office | Cardiology | Agata Tinajero DO | | | 2019 | Visit | | [address] | | | | | | [place] | | | | | | [address] | | | | | | | | +--------+---------+ + + + documented as of this encounter Visit Diagnoses Not on filedocumented in this encounter"
--- OUTSIDE RECORDS SUMMARY | ~2019-05-12 | XMS | Encounter Summary ---
Demographics + + + | Address | [address] | | | [place] [address] | + + + | Home Phone [...] [place], | | | | | [place] [address] | | + + + + + | Kellen Briones | ECON | [place] | | | | | [address] | | + + + + + [...] + | 01/03/ | Hospital | [facility] | Barb Marte PA | Visit for screening | | 2018 | Encounter | MED CTR MAMMOGRAPHY | [address] | mammogram | | | | [address] | [address] [place] | | | | | [place], [place] | [address] | | | | | [address] | | | | | | [phone] | | | +--------+ + + + [...] | | | | | | [place] [address] | | | | | | [phone] | | | | | | | | +--------+---------+ + + + | 07/30/ | Office | Cardiology | Agata Tinajero DO | | | 2019 | Visit | | [address] | | | | | | [place] | | | | | | [address] | | | | | | | [...]
--- OUTSIDE RECORDS SUMMARY | ~2019-05-12 | XMS | Encounter Summary ---
Demographics + + + | Address | [address] | | | [place] [address] | + + + | Home Phone [...] [place], | | | | | [place] [address] | | + + + + + | Kellen Briones | ECON | [place], [place] | | | | | [address] | | + + + + + Care Team Providers + +------+ + | Care Marine Engine Machinist Name | Role | Phone | + +------+ + | Anan De Guzman PA-C | PCP | | [...] (Primary Dx); DDD | | | | [place], | [place] | (degenerative disc | | | | [place] [address] | [address] | disease), lumbar; | | | | [phone] | | 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; | | | | | | Spinal stenosis of | | | | | | lumbar region with | | | | | | mwmnwfgeildss-S2-M5 | | | | | | level moderately | | | | | | severe; Facet | | | | | | arthritis of lumbar | | | | | | region-Most severe | | | | | | at L4-L5,L5-S1; [place] | | | | | | (myocardial | | | | | | infarction) ([facility]); | | | | | | Cancer ([facility]); | | | | | | Diabetes mellitus | | | | | | ([facility]); Coronary | | | | [...] our off ice. Please also provide a laundry route driver to take you home on the [...] actually been seeing Dr. Jordan in [facility] the neck issues and will be receiving [...] 4. Spinal stenosis of lumbar region with hpqjieuvhlgex-W7-G7 level moderately severe 5. Facet arthritis of [...] t he lumbar spine at [facility]. I will request these be placed on I-site. She h as previously seen Dr. Real and has been in contact with Dr. Becerril's office in the [facility]. I would be happy to provide a formal referral if needed. documented in this encounter Plan of Treatment +--------+---------+ + + + | Date | Type | Specialty | Care Team | Description | +--------+---------+ + + + | 05/14/ | Office | Orthopedic Surgery | Monster White MD | | | 2019 | Visit | | [address] | | | | | | [place], | | | | | | [place] [address] | | | | | | [phone] | | | | | | | | +--------+---------+ + + + | 07/30/ | Office | Cardiology | Agata Tinajero DO | | | 2019 | Visit | | [address] | | | | | | [place] | | | | | | [address] | | | | | | | [...] | Spinal stenosis of lumbar region with hfclzgtglgrpl-R1-C8 level moderately severe | | Spinal stenosis, lumbar region, without neurogenic claudication | + + | 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
--- OUTSIDE RECORDS SUMMARY | ~2019-05-12 | XMS | Encounter Summary ---
Demographics + + + | Address | [address] | | | [place] [address] | + + + | Home Phone [...] [place], | | | | | [place] [address] | | + + + + + | Kellen Briones | ECON | [place], [place] | | | | | [address] | | + + + + + [...] + + | 05/17/ | Office | [facility] | Chavo Jacob, | Status post cervical | | 2016 | Visit | NEUROSURGERY [address] | PA-C [address] | spinal fusion | | | | [address] | [address] [place] | (Primary Dx) | | | | [place] | [place] [address] | | | | | [address] | [phone] | | | | | [phone] | | | +--------+---------+ + + + [...] encounter Patient Instructions Patient Instructions Perico Hearn, Cement Production Plant Operator - 05/17/2016 11:43 AM PSTYou may [...] back and use good technique when pick pulling machine operator things and bending. documented in this encounter Progress Notes Chavo Jacob PA - 05/17/2016 11:41 AM PSTFormatting of this note might be different f rom the original. Perico Hearn, District Adviser [address] [facility], [address] [place], [place] [id number] FAX: NEUROSURGERY FOLLOW-UP CHIEF COMPLAINT: Chief Complaint [...] (HCC) Hypertension Cancer (HCC) Right breast Hyperlipidemia [place] (myocardial infarction) ([facility]) GERD (gastroesophageal reflux disease) Asthma Arthritis Lumbar radiculopathy 07/23/2012 DDD (degenerative disc disease), lumbar 07/23/2012 Spinal stenosis of lumbar region with tunqfwjscarqd-I7-I1 level moderately severe 2012 Facet arthritis of [...] | | | | | [place] [address] | | | | | | [phone] | | | | | | | | +--------+---------+ + + + | 07/30/ | Office | Cardiology | Agata Tinajero DO | | | 2019 | Visit | | [address] | | | | | | [place] | | | | | | [address] | | | | | | | [...]
--- OUTSIDE RECORDS SUMMARY | ~2019-05-12 | XMS | Encounter Summary ---
Demographics + + + | Address | [address] | | | [place] [address] | + + + | Home Phone [...] [place], | | | | | [place] [address] | | + + + + + | Kellen Briones | ECON | [place], [place] | | | | | [address] | | + + + + + Care Team Providers + +------+ + | Care Lithographic Press Operator Apprentice Name | Role | Phone | [...] + + | 10/08/ | Telephone | [facility] | Tk Ann | Other (Schedule | | 2012 | | PHYSIATRY [address] | T, [address] | injection) | | | | [place], | [place], [place] | | | | | [place] [address] | [address] | | | | | [phone] | | | +--------+ + + + [...] | | | | | | [place] [address] | | | | | | [phone] | | | | | | | | +--------+---------+ + + + | 07/30/ | Office | Cardiology | Agata Tinajero DO | | | 2019 | Visit | | [address] | | | | | | [place] | | | | | | [address] | | | | | | | | +--------+---------+ + + + documented as of this encounter Visit Diagnoses Not on filedocumented in this encounter"
--- OUTSIDE RECORDS SUMMARY | ~2019-05-12 | XMS | Encounter Summary ---
Demographics + + + | Address | [address] | | | [place] [address] | + + + | Home Phone [...] [place], | | | | | [place] [address] | | + + + + + | Kellen Briones | ECON | [place], [place] | | | | | [address] | | + + + + + Care Team Providers + +------+ + | Care Solar Energy Technician Name | Role | Phone | [...] | Lumbar | Marissa, | [address] | | | | | radiculopath | Tk Monreal MD | [place], | | | | | y | [address] | [place] | | | | | Procedures | [place] | [address] | | | | | [place] INJECT | [facility], [place] | Phone: | | | | | ANES/STEROID | [address] | [phone] | | | | | [place] | Phone: | Fax: | | | | | LUMBAR/SACRA | [phone] | [phone] | | | | | L W IMG | Fax: | | | | | | GUIDE ,1 | [phone] | | | | | | LEVEL [place] | | | | | | [...] + + | 06/27/ | Hospital | [facility] | Bogdanowicz, | Lumbar | | 2017 | Encounter | MED CTR XRAY [address] | [address]YAAN [address] | radiculopathy; | | | | [place] | [facility], | Spinal stenosis of | | | | [place] [address] | [place] [address] | lumbar region with | | | | [phone] | gpacxlpbzcjnf-X5-E2 | | | | | | level moderately | | | | | [place], [place] | severe; DDD | | | [...] | | | | | | [place] [address] | | | | | | [phone] | | | | | | | | +--------+---------+ + + + | 07/30/ | Office | Cardiology | Agata Tinajero DO | | | 2019 | Visit | | [address] | | | | | | [place] | | | | | | [address] | | | | | | | [...] with | | | | | | bbhvunquokpln-E9-I4 | | | | | | level [...] Lumbar radiculopathy ICD-10 Code M54.16 Clementine | [facility] | | Lizett Winchester presents to the fluoroscopy suite for [facility] | | fluoroscopically-guided bilateral L5-S1 [...] ST. | [address] | [place], [place] | [phone] | | [facility] | | [address] | | | - IMAGING | | | | + + + + + documented in this encounter Visit Diagnoses + + | Diagnosis | + + | Lumbar radiculopathy Thoracic or lumbosacral neuritis or radiculitis, unspecified | + + | Spinal stenosis of lumbar region with aypadwtuiuovk-E1-E8 level moderately severe | | Spinal stenosis, [...]
--- OUTSIDE RECORDS SUMMARY | ~2019-05-12 | XMS | Encounter Summary ---
Demographics + + + | Address | [address] | | | [place] [address] | + + + | Home Phone [...] [place], | | | | | [place] [address] | | + + + + + | Kellen Briones | ECON | [place] | | | | | [address] | | + + + + + Care Team Providers + +------+ + | Care Aeronautics Commission Director Name | Role | Phone | + +------+ + | Barb Marte | PCP | | + +------+ + Encounter Details +--------+ + + + + | Date | Type | Department | Care Team | Description | +--------+ + + + + | 01/31/ | Hospital | [facility] | Conversion | Diagnosis unknown | | 2018 | Encounter | CONVERSION DEP [address] | Transaction, | | | | | [address] | Provider Unknown | | | | | [place] | [phone] | | | | | [address] | | | | | | [phone] | | | +--------+ + + + [...] | | | | | | [place] [address] | | | | | | [phone] | | | | | | | | +--------+---------+ + + + | 07/30/ | Office | Cardiology | Agata Tinajero DO | | | 2019 | Visit | | [address] | | | | | | [place] | | | | | | [address] | | | | | | | [...]
--- OUTSIDE RECORDS SUMMARY | ~2019-05-12 | XMS | Encounter Summary ---
Demographics + + + | Address | [address] | | | [place] [address] | + + + | Home Phone [...] [place], | | | | | [place] [address] | | + + + + + | Kellen Briones | ECON | [place] | | | | | [address] | | + + + + + Care Team Providers + +------+ + | Care Honing Machine Set Up Operator Name | Role | Phone | [...] Exam | MED CTR EXTERNAL | [address] | | | | | IMAGING | [place] | | | | | [phone] | [place] [address] | | +--------+ + + + + [...] | | | | | | [place] [address] | | | | | | [phone] | | | | | | | | +--------+---------+ + + + | 07/30/ | Office | Cardiology | TinajeroAgata joshiDO | | | 2019 | Visit | | [address] | | | | | | [place] | | | | | | [address] | | | | | | | [...]
--- OUTSIDE RECORDS SUMMARY | ~2019-05-12 | XMS | Encounter Summary ---
Demographics + + + | Address | [address] | | | [place] [address] | + + + | Home Phone [...] [place], | | | | | [place] [address] | | + + + + + | Kellen Briones | ECON | [place] | | | | | [address] | | + + + + + Care Team Providers + +------+ + | Care Feed Mill Lab Technician Name | Role | Phone | + +------+ + | Barb Marte | THANG | | + +------+ + Encounter Details +--------+ + + + + | Date | Type | Department | Care Team | Description | +--------+ + + + + | 01/17/ | Imaging | [facility]UELW[facility]Jos[facility] CARLOS REINALDO | Provider, | | | 2018 | Exam | MED CTR EXTERNAL | [address] | | | | | IMAGING | [place] | | | | | [phone] | [place] [address] | | +--------+ + + + + [...] | | | | | | [place] [address] | | | | | | [phone] | | | | | | | | +--------+---------+ + + + | 07/30/ | Office | Cardiology | TinajeroAgata joshiDO | | | 2019 | Visit | | [address] | | | | | | [place] | | | | | | [address] | | | | | | | [...]
--- OUTSIDE RECORDS SUMMARY | ~2019-05-12 | XMS | Encounter Summary ---
Demographics + + + | Address | [address] | | | [place] [address] | + + + | Home Phone [...] [place], | | | | | [place] [address] | | + + + + + | Kellen Briones | ECON | [place] | | | | | [address] | | + + + + + Care Team Providers + +------+ + | Care Contract Clerk Automobile Name | Role | Phone | + +------+ + | Barb Marte | PCP | | + +------+ + Encounter Details +--------+ + + + + | Date | Type | Department | Care Team | Description | +--------+ + + + + | 01/31/ | Hospital | [facility] | Conversion | Diagnosis unknown | | 2018 | Encounter | CONVERSION [address]P [address] | Transaction, | | | | | [address] [place] | Provider Unknown | | | | | [place] | [phone] | | | | | [address] | | | | | | [phone] | | | +--------+ + + + [...] | | | | | | [place] [address] | | | | | | [phone] | | | | | | | | +--------+---------+ + + + | 07/30/ | Office | Cardiology | Agata Tinajero DO | | | 2019 | Visit | | [address] | | | | | | [place] | | | | | | [address] | | | | | | | [...]
--- OUTSIDE RECORDS SUMMARY | ~2019-05-12 | XMS | Encounter Summary ---
Demographics + + + | Address | [address] | | | [place] [address] | + + + | Home Phone [...] [place], | | | | | [place] [address] | | + + + + + | Kellen Briones | ECON | [place], [place] | | | | | [address] | | + + + + + Care Team Providers + +------+ + | Care Sales Representative Graphic Art Name | Role | Phone | + [...] + + | 08/01/ | Telephone | [facility] | Ramon Real | Other | | 2012 | | [address] | MD Idris [address] | | | | | [address] | [place], [place] | | | | | [place], [place] | [address] | | | | | [address] | [phone] | | | | | [phone] | | | +--------+ + + + [...] | | | | | | [place] [address] | | | | | | [phone] | | | | | | | | +--------+---------+ + + + | 07/30/ | Office | Cardiology | Agata Tinajero DO | | | 2019 | Visit | | [address] | | | | | | [place] | | | | | | [address] | | | | | | | | +--------+---------+ + + + documented as of this encounter Visit Diagnoses Not on filedocumented in this encounter"
--- OUTSIDE RECORDS SUMMARY | ~2019-05-12 | XMS | Encounter Summary ---
Demographics + + + | Address | [address] | | | [place] [address] | + + + | Home Phone [...] [place], | | | | | [place] [address] | | + + + + + | Kellen Briones | ECON | [place], [place] | | | | | [address] | | + + + + + Care Team Providers + +------+ + | Care Internet Cafe Manager Name | Role | Phone | [...] | 12/22/ | Telephone | [facility] | Ramon Real | Appointment | | 2012 | | [address] | FMD [address] | (Appointment | | | | [address] | [place], [place] | request) | | | | [place], [place] | [address] | | | | | [address] | [phone] | | | | | [phone] | | | +--------+ + + + [...] | | | | | | [place] [address] | | | | | | [phone] | | | | | | | | +--------+---------+ + + + | 07/30/ | Office | Cardiology | Agata Tinajero DO | | | 2019 | Visit | | [address] | | | | | | [place] | | | | | | [address] | | | | | | | | +--------+---------+ + + + documented as of this encounter Visit Diagnoses Not on filedocumented in this encounter"
--- OUTSIDE RECORDS SUMMARY | ~2019-05-12 | XMS | Encounter Summary ---
Demographics + + + | Address | [address] | | | [place] [address] | + + + | Home Phone [...] [place], | | | | | [place] [address] | | + + + + + | Kellen Briones | ECON | [place], [place] | | | | | [address] | | + + + + + Care Team Providers + +------+ + | Care Client Technical Specialist Name | Role | Phone [...] + | 11/05/ | Telephone | [facility] | Irving Becerril, | Imaging Only | | 2017 | | NEUROSURGERY [address] | DO [address] | | | | | [address] | [address] [place], [place] | | | | | [place], [place] | [id number] | | | | | [address] | | | | | | [phone] | | | +--------+ + + + [...] | | | | | | [place] [address] | | | | | | [phone] | | | | | | | | +--------+---------+ + + + | 07/30/ | Office | Cardiology | Agata Tinajero DO | | | 2019 | Visit | | [address] | | | | | | [place] | | | | | | [address] | | | | | | | | +--------+---------+ + + + documented as of this encounter Visit Diagnoses Not on filedocumented in this encounter"
--- OUTSIDE RECORDS SUMMARY | ~2019-05-12 | XMS | Encounter Summary ---
Demographics + + + | Address | [address] | | | [place] [address] | + + + | Home Phone [...] [place], | | | | | [place] [address] | | + + + + + | Kellen Briones | ECON | [place] | | | | | [address] [...] + + | 01/31/ | Hospital | [facility] IP | Conversion | Diagnosis unknown | | 2018 | Encounter | CONVERSION DEP [address] | Transaction, | | | | | [place] | Provider Unknown | | | | | [place] | [phone] | | | | | [phone] | | | | | | [phone] | | | +--------+ + + + [...] | | | | | | [place] [address] | | | | | | [phone] | | | | | | | | +--------+---------+ + + + | 07/30/ | Office | Cardiology | Agaat Tinajero DO | | | 2019 | Visit | | [address] | | | | | | [place] | | | | | | [address] | | | | | | | [...]
--- OUTSIDE RECORDS SUMMARY | ~2019-05-12 | XMS | Encounter Summary ---
Demographics + + + | Address | [address] | | | [place] [address] | + + + | Home Phone [...] [place], | | | | | [place] [address] | | + + + + + | Kellen Briones | ECON | [place], [place] | | | | | [address] | | + + + + + Care Team Providers + +------+ + | Care Registration Clerk Name | Role | Phone | [...] + + | 03/28/ | Telephone | [facility] | Irving Becerril, | Surgery Appointment | | 2015 | | NEUROSURGERY [address] | DO [address] | (reminder ) | | | | [address] | [address] [place], [place] | | | | | [place], [place] | [address] | | | | | [address] | | | | | | [phone] | | | +--------+ + + + [...] | | | | | | [place] [address] | | | | | | [phone] | | | | | | | | +--------+---------+ + + + | 07/30/ | Office | Cardiology | gAata Tinajero DO | | | 2019 | Visit | | [address] | | | | | | [place] | | | | | | [address] | | | | | | | | +--------+---------+ + + + documented as of this encounter Visit Diagnoses Not on filedocumented in this encounter"
--- OUTSIDE RECORDS SUMMARY | ~2019-05-12 | XMS | Encounter Summary ---
Demographics + + + | Address | [address] | | | [place] [address] | + + + | Home Phone [...] [place], | | | | | [place] [address] | | + + + + + | Kellen Briones | ECON | [place] | | | | | [address] | | + + + + + Care Team Providers + +------+ + | Care Gear Room Keeper Name | Role | Phone | + +------+ + | Barb Marte | PCP | | + +------+ + Encounter Details +--------+ + + + + | Date | Type | Department | Care Team | Description | +--------+ + + + + | 01/31/ | Hospital | [facility] | Conversion | Diagnosis unknown | | 2018 | Encounter | CONVERSION DEP [address] | Transaction, | | | | | [address] | Provider Unknown | | | | | [place] | [phone] | | | | | [address] | | | | | | [phone] | | | +--------+ + + + [...] | | | | | | [place], | | | | | | [place] [address] | | | | | | [phone] | | | | | | | | +--------+---------+ + + + | 07/30/ | Office | Cardiology | Agata Tinajero DO | | | 2019 | Visit | | [address] | | | | | | [place] | | | | | | [address] | | | | | | | [...]
--- OUTSIDE RECORDS SUMMARY | ~2019-05-12 | XMS | Encounter Summary ---
Demographics + + + | Address | [address] | | | [place] [address] | + + + | Home Phone [...] [place], | | | | | [place] [address] | | + + + + + | Kellen Briones | ECON | [place], [place] | | | | | [address] | | + + + + + Care Team Providers + +------+ + | Care Pv Design Engineer Name | Role | Phone [...] [address] | F[address] | | | | | [address] | [place], [place] | | | | | [place], [place] | [address] | | | | | [address] | [phone] | | | | | [phone] | | | +--------+ + + + [...] | 2019 | Visit | | [address] | | | | | | [place], | | | | | | [place] [address] | | | | | | [phone] | | | | | | | | +--------+---------+ + + + | 07/30/ | Office | Cardiology | Agata Tinajero DO | | | 2019 | Visit | | [address] | | | | | | [place] | | | | | | [address] | | | | | | | | +--------+---------+ + + + documented as of this encounter Visit Diagnoses Not on filedocumented in this encounter"
--- OUTSIDE RECORDS SUMMARY | ~2019-05-12 | XMS | Encounter Summary ---
Demographics + + + | Address | [address] | | | [place] [address] | + + + | Home Phone [...] [place], | | | | | [place] [address] | | + + + + + | Kellen Briones | ECON | [place], [place] | | | | | [address] | | + + + + + Care Team Providers + +------+ + | Care Emt Basic Name | Role | Phone | + [...] | | n | spinal canal | [address] | [address] [place] | | | | | | [place], | [place], [place] | | | | | Spondylolist | [place] [address] | [address] Phone: | | | | | hesis of | Phone: | [phone] | | | | | cervical | [phone] | Fax: | | | | | region | [phone] Fax: | [phone] | | | | | Right hip | | | | | | | pain | [phone] | | | | | | Trochanteric [...] + + | 07/23/ | Office | [facility] [place] | Tk Ann | Lumbar radiculopathy | | 2013 | Visit | PHYSIATRY [address] | TMD [address] | (Primary Dx); DDD | | | | [address], | [place] | (degenerative disc | | | | [place] [address] | [address] | disease), lumbar; | | | | [phone] | | 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; | | | | | | Spinal stenosis of | | | | | | lumbar region with | | | | | | aqozejuqykonl-K5-J4 | | | | | | level [...] - 07/23/2012 11:07 AM [facility] your scheduled [...] our off ice. Please also provide a solid waste truck driver to take you home on [...] 4. Spinal stenosis of lumbar region with fyaunqskdheeb-J6-G5 level moderately severe 5. Facet arthritis of [...] issue. Reportedly she has already seen a sr. manager and nothing abnormal w as found. [...] | 2019 | Visit | | [address] | | | | | | [place], | | | | | | [place] [address] | | | | | | [phone] | | | | | | | | +--------+---------+ + + + | 07/30/ | Office | Cardiology | Agata Tinajero DO | | | 2019 | Visit | | [address] | | | | | | [place] | | | | | | [address] | | | | | | | [...] | Spinal stenosis of lumbar region with eixpqhtgcfapz-D0-W8 level moderately severe | | Spinal stenosis, [...]
--- OUTSIDE RECORDS SUMMARY | ~2019-05-12 | XMS | Encounter Summary ---
Demographics + + + | Address | [address] | | | [place] [address] | + + + | Home Phone [...] [place], | | | | | [place] [address] | | + + + + + | Kellen Briones | ECON | [place], [place] | | | | | [address] | | + + + + + Care Team Providers + +------+ + | Care Extrusion Manager Name | Role | Phone | [...] + | 08/13/ | Office | [facility] | Patrick Gaffney MD [address] | Decreased | | 2012 | Visit | NEUROLOGY [place] | [address] | [facility] | | | | [address], | [address] [place], | (Primary Dx); Small | | | | [address] [facility] | [place] [address]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 Longo at [facility]. 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 MRA of the head and neck was unremarkable for large v essel stenosis or occlusion. She also had EEG which showed mild diffuse slowing of the back ground without epileptiform discharges. She was seen by meat lugger at [facility]. She reported that she had Holter monitoring [...] Stroke Syncope and collapse Cancer Breast Hyperlipidemia [place] (myocardial infarction) GERD (gastroesophageal reflux disease) Asthma Arthritis Lumbar radiculopathy 07/23/2012 DDD (degenerative disc disease), lumbar 07/23/2012 Spinal stenosis of lumbar region with pjxjnlwxyuadp-W4-I6 level moderately severe 2012 Facet arthritis of [...] She did have history of starting multiple PUMP [employer] depressant medications since last February. These ep [...] | 2019 | Visit | | [address] | | | | | | [place], | | | | | | [place] [address] | | | | | | [phone] | | | | | | | | +--------+---------+ + + + | 07/30/ | Office | Cardiology | Agata Tinajero DO | | | 2020 | Visit | | [address] | | | | | | [place] | | | | | | [address] | | | | | | | [...]
--- OUTSIDE RECORDS SUMMARY | ~2019-05-12 | XMS | Encounter Summary ---
Demographics + + + | Address | [address] | | | [place] [address] | + + + | Home Phone [...] [place], | | | | | [place] [address] | | + + + + + | Kellen Briones | ECON | [place], [place] | | | | | [address] | | + + + + + Care Team Providers + +------+ + | Care Rn Sane Name | Role | Phone | + [...] | | Spinal | PA[address] | [place], [place] | | | | | stenosis, | [address] | [address] | | | | | other region | Ave | Phone: | | | | | Procedures | [place], | [phone] | | | | | [place] OFFICE | [place] | Fax: | | | | | CONSULTATION | [address] | [phone] | | | | | NEW/ESTAB | Phone: | | | | | | PATIENT 60 | [phone] | | | | | | MIN | Fax: | | | | | | | [phone] | | +--------+--------+ + + + + Encounter Details +--------+---------+ + + + | Date | Type | Department | Care Team | Description | +--------+---------+ + + + | 11/13/ | Office | [facility] | Gonzalo Mathew MD | Cervical spondylosis | | 2013 | Visit | 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 Then, look for Anterior Cervical Discectomy and Fusion (ACDF). documented in this encounter Progress Notes Gonzalo Mathew MD - 11/13/2013 11:00 AM PDTFormatting of this note might be different from t he original. Gonzalo Mathew MD [address] [place] [address], [address] [place] [address] FAX: NEUROSURGERY HISTORY AND PHYSICAL EXAMINATION CHIEF [...] Syncope and collapse Cancer (HCC) Breast Hyperlipidemia [place] (myocardial infarction) (HCC) GERD (gastroesophageal reflux disease) Asthma Arthritis Lumbar radiculopathy 07/23/2012 DDD (degenerative disc disease), lumbar 07/23/2012 Spinal stenosis of lumbar region with vubxtetcpqlsi-W9-X3 level moderately severe 2012 Facet arthritis of [...] 1989' Mastectomy, radical 1987 Right Breast reconstruction 2789-0264 ABout 10 surgeries Bone spur left foot [...] Intrinsics 5 5 Ulnar Intrinsics 5 5 Dispatcher Relay Strength 5 5 Hip Flexion 5 5 [...] Syncope and collapse Cancer (HCC) Breast Hyperlipidemia [place] (myocardial infarction) (HCC) GERD (gastroesophageal reflux disease) Asthma Arthritis Lumbar radiculopathy 07/23/2012 DDD (degenerative disc disease), lumbar 07/23/2012 Spinal stenosis of lumbar region with vounuuktmfieh-E3-B0 level moderately severe 2012 Facet arthritis of [...] | 2019 | Visit | | [address] | | | | | | [place], | | | | | | [place] [address] | | | | | | [phone] | | | | | | | | +--------+---------+ + + + | 07/30/ | Office | Cardiology | TinajeroAgata DO | | | 2019 | Visit | | [address] | | | | | | [place] | | | | | | [address] | | | | | | | [...]
--- OUTSIDE RECORDS SUMMARY | ~2019-05-12 | XMS | Encounter Summary ---
Demographics + + + | Address | [address] | | | [place] [address] | + + + | Home Phone [...] [place], | | | | | [place] [address] | | + + + + + | Kellen Briones | ECON | [place] | | | | | [address] | | + + + + + Care Team Providers + +------+ + | Care Cement Finishing Supervisor Name | Role | Phone | + +------+ + | Barb Marte | PCP | | + +------+ + Encounter Details +--------+ + + + + | Date | Type | Department | Care Team | Description | +--------+ + + + + | 01/31/ | Hospital | [facility] | Conversion | Pain | | 2018 | Encounter | CONVERSION DEP [address] | Transaction, | | | | | [address] | Provider Unknown | | | | | [place], [place] | [phone] | | | | | [address] | | | | | | [phone] | | | +--------+ + + + [...] | | | | | | [place] [address] | | | | | | [phone] | | | | | | | | +--------+---------+ + + + | 07/30/ | Office | Cardiology | Agata Tinajero DO | | | 2019 | Visit | | [address] | | | | | | [place] | | | | | | [address] | | | | | | | [...]
--- OUTSIDE RECORDS SUMMARY | ~2019-05-12 | XMS | Encounter Summary ---
Demographics + + + | Address | [address] | | | [place] [address] | + + + | Home Phone [...] [place], | | | | | [place] [address] | | + + + + + | Kellen Briones | ECON | [place], [place] | | | | | [address] | | + + + + + Care Team Providers + +------+ + | Care Manager Medicare Name | Role | Phone | + [...] | 05/09/ | Refill | [facility] | Chavo Jacob, | Medication Refill | | 2015 | | NEUROSURGERY [address] | PA-C [address] | | | | | [address] | [address] [facility] | | | | | [place], [place] | [place] [address] | | | | | [address] | [phone] | | | | | [phone] | | | +--------+--------+ + + + [...] | | | | | | [place] [address] | | | | | | [phone] | | | | | | | | +--------+---------+ + + + | 07/30/ | Office | Cardiology | Agata Tinajero DO | | | 2019 | Visit | | [address] | | | | | | [place] | | | | | | [address] | | | | | | | | +--------+---------+ + + + documented as of this encounter Visit Diagnoses Not on filedocumented in this encounter"
--- OUTSIDE RECORDS SUMMARY | ~2019-05-12 | XMS | Encounter Summary ---
Demographics + + + | Address | [address] | | | [place] [address] | + + + | Home Phone [...] [place], | | | | | [place] [address] | | + + + + + | Kellen Briones | ECON | [place], [place] | | | | | [address] | | + + + + + Care Team Providers + +------+ + | Care Movers Name | Role | Phone | + [...] | | | claudication | B | [address] | | | | | Procedures | [place], [place] | Phone: | | | | | CT Lumbar | [address] | [phone] | | | | | Spine wo | Phone: | Fax: | | | | | Contrast | [phone] | [phone] | | | | | | Fax: | | | | | | | [phone] | | +--------+--------+ + + + + Encounter Details +--------+ + + + + | Date | Type | Department | Care Team | Description | +--------+ + + + + | 04/09/ | Hospital | [facility] | Monster White MD | | | 2019 | Encounter | MED [address] | [address] | | | | | [place], | [place], | | | | | [place] [address] | [place] [address] | | | | | [phone] | [phone] | | | | | | | [...] | | | | | [place] [address] | | | | | | [phone] | | | | | | | | +--------+---------+ + + + | 07/30/ | Office | Cardiology | Agata Tinajero DO | | | 2019 | Visit | | [address] | | | | | | [place] | | | | | | [address] | | | | | | | [...]
--- OUTSIDE RECORDS SUMMARY | ~2019-05-12 | XMS | Encounter Summary ---
Demographics + + + | Address | [address] | | | [place] [address] | + + + | Home Phone [...] [place], | | | | | [place] [address] | | + + + + + | Kellen Briones | ECON | [place], [place] | | | | | [address] | | + + + + + Care Team Providers + +------+ + | Care Cattle Knocker Name | Role | Phone | + [...] + + | 08/01/ | Telephone | [facility] | Ramon Real | Other | | 2012 | | [address] | MD Idris [address] | | | | | [address] | [place], [place] | | | | | [place], [place] | [address] | | | | | [address] | [phone] | | | | | [phone] | | | +--------+ + + + [...] | | | | | | [place] [address] | | | | | | [phone] | | | | | | | | +--------+---------+ + + + | 07/30/ | Office | Cardiology | Agata Tinajero DO | | | 2019 | Visit | | [address] | | | | | | [place] | | | | | | [address] | | | | | | | | +--------+---------+ + + + documented as of this encounter Visit Diagnoses Not on filedocumented in this encounter"
--- OUTSIDE RECORDS SUMMARY | ~2019-05-12 | XMS | Encounter Summary ---
Demographics + + + | Address | [address] | | | [place] [address] | + + + | Home Phone [...] [place], | | | | | [place] [address] | | + + + + + | Kellen Briones | ECON | [place], [place] | | | | | [address] | | + + + + + Care Team Providers + +------+ + | Care Corporate Quality Engineer Name | Role | Phone | [...] + + | 01/26/ | Office | [facility] | Pippa, | Spinal stenosis of | | 2014 | Visit | PHYSIATRY [address] | [place] [address] | lumbar region with | | | | [place], | [place], | jkjssckwwkldj-J0-H3 | | | | [place] [address] | [place] [address] | level moderately | | | | [phone] | [phone] | severe (Primary Dx); | | | [...] of the procedure you must provide a new autos delivery driver to take you home. For [...] spinal stenosis. Her last injection was in [facility] of this year. She reports that the treatment was effective for approximately 1 months. 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 The patient reports overall [...] and narcotic medications use; she currently uses Ramsay, Flexeril and ga bapentin. Patient's medications, allergies, [...] 1. Spinal stenosis of lumbar region with ctyypxfqixkes-J0-H8 level moderately severe 2. Spondylolisthesis of lumbar [...] x-rays of the lumbar spine at [facility]. I previously requ ested that these be [...] | 2018 | Visit | | [address] | | | | | | [place], | | | | | | [place] [address] | | | | | | [phone] | | | | | | | | +--------+---------+ + + + | 07/30/ | Office | Cardiology | Agata Tinajero DO | | 2019 | Visit | | [address] | | | | | | [place], [place] | | | | | | [address] | | | | | | | [...] Clementine Phoenix Annabella presents to the | [facility] | | fluoroscopy suite for fluoroscopically-guided right C3-C4, C4-C5 and | [facility] | | C5-C6 facet injections as [...] [address] | Kylie Espinal MD | [phone] | | [facility] | | [address] | | | - IMAGING | | [...] ICD-9 Code 724.4 Clementine Phoenix | [facility] | | Annabella presents to the fluoroscopy suite for fluoroscopically-guided [facility] | | bilateral L5-S1 transforaminal [...] ST. | [address] | [place], [place] | [phone] | | [facility] | | [address] | | | - IMAGING | | | | + + + + + documented in this encounter Visit Diagnoses + + | Diagnosis | + + | Spinal stenosis of lumbar region with nskxhzkqqrrku-P2-F9 level moderately severe - | | Primary [...]
--- OUTSIDE RECORDS SUMMARY | ~2019-05-12 | XMS | Encounter Summary ---
Demographics + + + | Address | [address] | | | [place] [address] | + + + | Home Phone [...] [place], | | | | | [place] [address] | | + + + + + | Kellen Briones | ECON | [place], [place] | | | | | [address] | | + + + + + Care Team Providers + +------+ + | Care Deputy Director Of Public Works Name | Role | Phone | + [...] pain, | MD [address] | [address] | | | | | bilateral | [address] | [address] [place] | | | | | Procedures | [place], | [place], [place] | | | | | MRI Lumbar | [place] [address] | [address] | | | | | Spine wo | Phone: | Phone: | | | | | Contrast | [phone] | [phone] | | | | | | [phone] Fax: | Fax: | | | | | | | [phone] | | | | | | [phone] | | +--------+--------+ + + + + [...] | | | | | etiology | [address] | [address] [place] | | | | | ([facility]) | [place], | [place], [place] | | | | | | [place] [address] | [address] | | | | | | Phone: | Phone: | | | | | | [phone] | [phone] | | | | | | [phone] Fax: | Fax: | | | | | | | [phone] | | | | | | [phone] | | +--------+ + + + + [...] | | n | spinal canal | [address] | [address] [place] | | | | | | [place], | [place], [place] | | | | | Spondylolist | [place] [address] | [address] Phone: | | | | | hesis of | Phone: | [phone] | | | | | cervical | [phone] | Fax: | | | | | region | [phone] Fax: | [phone] | | | | | Right hip | | | | | | | pain | [phone] | | | | | | Trochanteric [...] | 06/04/ | Office | [facility] | Ramon Real | Cervical stenosis of | | 2012 | Visit | NEUROSURGERY [address] | MD Idris [address] | spinal canal | | | | [address] | St [place], [place] | (Primary Dx); | | | | [place], [place] | [address] | Spondylolisthesis of | | | | [address] | [phone] | cervical region; | | | | [phone] | | Right hip pain; | | [...] | ([facility]); | | | | | | Spondylolisthesis [...] w nixon we obtain the studies from [facility] documented in this encounter Progress Notes Ramon Real MD - 06/04/2012 3:46 PM PSTFormatting of this note might be differen t from the original. Ramon Real MD [address] [facility], [address] [place], [place] [address] FAX: NEUROSURGERY HISTORY AND PHYSICAL EXAMINATION CHIEF [...] evaluati on in the emergency department at [facility]. Apparently a CT scan not available [...] Stroke Syncope and collapse Cancer Breast Hyperlipidemia [place] (myocardial infarction) GERD (gastroesophageal reflux disease) Asthma [...] Intrinsics 5 5 Ulnar Intrinsics 5 5 Survival Specialist Strength 4 (35#) 4+ (40#) Hip [...] Hypertension Stroke Syncope and collapse Cancer Hyperlipidemia [place] (myocardial infarction) GERD (gastroesophageal reflux disease) Asthma GENERAL DIAGNOSES: Past Medical History Diagnosis Date Coronary artery disease Diabetes mellitus Hypertension Stroke Syncope and collapse Cancer Breast Hyperlipidemia [place] (myocardial infarction) GERD (gastroesophageal reflux disease) Asthma [...] imagi ng studies which were obtained at [facility] to facilitate that. Once we have [...] | 2018 | Visit | | [email or web address] | | | | | | [place] | | | | | | [place] [address] | | | | | | [phone] | | | | | | | | +--------+---------+ + + + | 07/30/ | Office | Cardiology | Agata Tinajero DO | | | 2019 | Visit | | [address] | | | | | | [place] | | | | | | [address] | | | | | | | [...]
--- OUTSIDE RECORDS SUMMARY | ~2019-05-12 | XMS | Encounter Summary ---
Demographics + + + | Address | [address] | | | [place] [address] | + + + | Home Phone [...] [place], | | | | | [place] [address] | | + + + + + | Kellen Briones | ECON | [place], [place] | | | | | [address] | | + + + + + Care Team Providers + +------+ + | Care Shipping Processor Name | Role | Phone | [...] | | | | lumbar | [place] [address] | [address] Phone: | | | | | region DDD | Phone: | [phone] | | | | | (degenerativ | [phone] | Fax: | | | | | e disc | Fax: | [phone] | | | | | disease), | [phone] | | | | | | lumbar [...] + + | 12/08/ | Office | [facility] | Mono Diaz, | Lumbar radiculopathy | | 2019 | Visit | PHYSIATRY [address] | PA-C [address] | (Primary Dx); | | | | [place], | [address] [place] | Spondylolisthesis [place] | | | | [place] [address] | [place] [address] | lumbar region; DDD | | | | [phone] | [phone] | (degenerative disc | | | | | | disease), lumbar; | | | | | | Spinal stenosis of | | | | | | lumbar region with | | | | | | sjoidmsupcysk-R4-V5 | | | | | | level [...] disk, and irritate nerves. Date Last Reviewed: 11/01/201719990925-2258 [employer]. [address] [place] [address], [place] [address]. All righ ts reserved. This information is not intended as a substitute for professional medical care. Always follow your healthcare professional's instructions. documented in this encounter Progress Notes Mono Diaz PA-C - 12/08/2018 2:40 PM PDTFormatting of this note might be different fro m the original. Mono Diaz PA-C [address] [facility], [address] [place] [address] FAX: CHIEF COMPLAINT: Chief Complaint Patient presents [...] has no apparent deficits with short or shelter memory. The cranial nerves appear grossly intact. [...] lumbar Spinal stenosis of lumbar region with grrkwcysmnqwo-C6-T5 level moderately severe PLAN: 1) Today we [...] PT (multiple sessions over the years) and child care aide. Unfortunately Clementine Winchester continues to [...] | 2018 | Visit | | [address] | | | | | | [place], | | | | | | [place] [address] | | | | | | [phone] | | | | | | | | +--------+---------+ + + + | 07/30/ | Office | Cardiology | Agata Tinajero DO | | | 2020 | Visit | | [address] | | | | | | [place] | | | | | | [address] | | | | | | | [...] with | | | | | | amrexizrdjnof-P6-T3 | | | | | | level [...] | Spinal stenosis of lumbar region with gpqstlidkowdy-A9-T9 level moderately severe | | Spinal stenosis, lumbar region, without neurogenic claudication | + + documented in this encounter
--- OUTSIDE RECORDS SUMMARY | ~2019-05-12 | XMS | Encounter Summary ---
Demographics + + + | Address | [address] | | | [place] [address] | + + + | Home Phone [...] [place], | | | | | [place] [address] | | + + + + + | Kellen Briones | ECON | [place], [place] | | | | | [address] | | + + + + + Care Team Providers + +------+ + | Care Horse Trainer Name | Role | Phone | + +------+ + | Anna De Guzman PA-C | PCP | | + +------+ + Encounter Details +--------+ + + + + | Date | Type | Department | Care Team | Description | +--------+ + + + + | 03/05/ | Hospital | [facility] | IsakkaydenkaileeTk mathis | | | 2012 | Encounter | MED CTR XRAY [address] | T, [address] | | | | | [place] | [place], [place] | | | | | [place] [address] | [address] | | | | | [phone] | | | +--------+ + + + [...] | | | | | | [place] [address] | | | | | | [phone] | | | | | | | | +--------+---------+ + + + | 07/30/ | Office | Cardiology | Agata Tinajero DO | | | 2019 | Visit | | [address] | | | | | | [place] | | | | | | [address] | | | | | | | | +--------+---------+ + + + documented as of this encounter Visit Diagnoses Not on filedocumented in this encounter"
--- OUTSIDE RECORDS SUMMARY | ~2019-05-12 | XMS | Encounter Summary ---
Demographics + + + | Address | [address] | | | [place] [address] | + + + | Home Phone [...] [place], | | | | | [place] [address] | | + + + + + | Kellen Briones | ECON | [place], [place] | | | | | [address] | | + + + + + Care Team Providers + +------+ + | Care Licensing Analyst Name | Role | Phone | [...] | 05/09/ | Refill | [facility] | Chavo Jacob, | Medication Refill | | 2015 | | NEUROSURGERY [address] | PA-C [address] | | | | | [address] | [address] [facility] | | | | | [place], [place] | [place] [address] | | | | | [address] | [phone] | | | | | [phone] | | | +--------+--------+ + + + [...] | | | | | | [place] [address] | | | | | | [phone] | | | | | | | | +--------+---------+ + + + | 07/30/ | Office | Cardiology | Agata Tinajero DO | | | 2019 | Visit | | [address] | | | | | | [place] | | | | | | [address] | | | | | | | | +--------+---------+ + + + documented as of this encounter Visit Diagnoses Not on filedocumented in this encounter"
--- OUTSIDE RECORDS SUMMARY | ~2019-05-12 | XMS | Encounter Summary ---
Demographics + + + | Address | [address] | | | [place] [address] | + + + | Home Phone [...] [place], | | | | | [place] [address] | | + + + + + | Kellen Briones | ECON | [place], [place] | | | | | [address] | | + + + + + Care Team Providers + +------+ + | Care Location Man Name | Role | Phone | + +------+ + | Barb Matre | PCP | | + +------+ + Reason for Visit + + + | Reason | Comments | + + + | Follow-up | appointment | + + + Encounter Details +--------+ + + + + | Date | Type | Department | Care Team | Description | +--------+ + + + + | 04/21/ | Telephone | [facility] | Monster White MD | Follow-up | | 2019 | | NEUROS[facility]ENCE [facility]ENTER | [address] | (appointment) | | | | ORTHOPEDIC SPINE | [place] | | | | | [address] | [place] [address] | | | | | [place] | [phone] | | | | | [address] | | | | | | [phone] | | | +--------+ + + + [...] | | | | | | [place] [address] | | | | | | [phone] | | | | | | | | +--------+---------+ + + + | 07/30/ | Office | Cardiology | Agata Tinajero DO | | | 2019 | Visit | | [address] | | | | | | [place] | | | | | | [address] | | | | | | | | +--------+---------+ + + + documented as of this encounter Visit Diagnoses Not on filedocumented in this encounter"
--- OUTSIDE RECORDS SUMMARY | ~2019-05-12 | XMS | Encounter Summary ---
Demographics + + + | Address | [address] | | | [place] [address] | + + + | Home Phone [...] [place], | | | | | [place] [address] | | + + + + + | Kellen Briones | ECON | [place], [place] | | | | | [address] | | + + + + + Care Team Providers + +------+ + | Care Plant Senior Manager Name | Role | Phone | [...] NEUROSURGERY [address] | F, [address] | Dx) | | | | [address] | [place] | | | | | [place], [place] | [address] | | | | | [address] | [phone] | | | | | [phone] | | | +--------+ + + + [...] | | | | | | [place] [address] | | | | | | [phone] | | | | | | | | +--------+---------+ + + + | 07/30/ | Office | Cardiology | Agata Tinajero DO | | | 2019 | Visit | | [address] | | | | | | [place] | | | | | | [address] | | | | | | | [...]
--- OUTSIDE RECORDS SUMMARY | ~2019-05-12 | XMS | Encounter Summary ---
Demographics + + + | Address | [address] | | | [place] [address] | + + + | Home Phone [...] [place], | | | | | [place] [address] | | + + + + + | Kellen Briones | ECON | [place] | | | | | [address] | | + + + + + Care Team Providers + +------+ + | Care Technical Assistance Consultant Name | Role | Phone | [...] Lauren [place] | | | | | [phone] | [place] [address] | | +--------+ + + + + [...] | | | | | | [place] [address] | | | | | | [phone] | | | | | | | | +--------+---------+ + + + | 07/30/ | Office | Cardiology | Agata Tinajero DO | | | 2019 | Visit | | [address] | | | | | | [place] | | | | | | [address] | | | | | | | [...]
--- OUTSIDE RECORDS SUMMARY | ~2019-05-12 | XMS | Encounter Summary ---
Demographics + + + | Address | [address] | | | [place] [address] | + + + | Home Phone [...] [place], | | | | | [place] [address] | | + + + + + | Kellen Briones | ECON | [place], [place] | | | | | [address] | | + + + + + Care Team Providers + +------+ + | Care Polisher Brass Name | Role | Phone | + [...] | Cervical | Marissa, | [address] | | | | | spondylosis | Tk Monreal MD | [place], | | | | | Procedures | [address] | [place] | | | | | [place] INJ | [place] | [address] | | | | | DX/THER AGNT | [facility], [place] | Phone: | | | | | [place] | [address] | [phone] | | | | | [place] [place], | Phone: | Fax: | | | | | | [phone] | [phone] | | | | | CERV/THORAC, | Fax: | | | | | | 1ST LEVEL | [phone] | | | | | | DC INJ | | | | | | | DX/THER AGNT | | | | | | | [place] | | | | | | | [place], | | | | | | | | | | | | | | CERV/THORAC, | | | | | | | 2ND LEVEL | | | | | | | DC INJ | | | | | | [...] + + | 11/29/ | Hospital | [facility] | [place], | Cervical stenosis of | | 2016 | Encounter | MED CTR XRAY [address] | AYAAN Taylor [address] | spinal canal; | | | | [place] | [facility], | Spondylolisthesis of | | | | [place] [address] | [place] [address] | cervical region; | | | | [phone] | [phone] | Neck pain on right | | | | | | side; Facet | | | | | Residential Aide, [facility] | arthritis of | | | [...] | | | | | | [place] [address] | | | | | | [phone] | | | | | | | | +--------+---------+ + + + | 07/30/ | Office | Cardiology | Agata Tinajero DO | | | 2019 | Visit | | [address] | | | | | | [place] | | | | | | [address] | | | | | | | [...] the fluoroscopy suite for fluoroscopically-guided [facility] | | bilateral right C3, C4 [...] Performing | Address | City/[facility] | Phone Number | | Organization | | | | + + + + + | [address] | [address] | [place] | [phone] | | [facility] | | [address] | | | - IMAGING | | [...]
--- OUTSIDE RECORDS SUMMARY | ~2019-05-12 | XMS | Encounter Summary ---
Demographics + + + | Address | [address] | | | [place] [address] | + + + | Home Phone [...] [place], | | | | | [place] [address] | | + + + + + | Kellen Briones | ECON | [place], [place] | | | | | [address] | | + + + + + Care Team Providers + +------+ + | Care Extension Service Advisor Name | Role | Phone | [...] + + | 07/28/ | Telephone | [facility] | Patrick Gaffney MD [address] | Records Request | | 2012 | | NEUROLOGY [place] | [facility] | | | | | [address] [facility], | BRAD D JIGNA | | | | | TEMI LEAL [address] [place] [address] | [place] [address] | | | | | [place] [address] | [phone] | | | | | [phone] | | | +--------+ + + + [...] | | | | | | [place] [address] | | | | | | [phone] | | | | | | | | +--------+---------+ + + + | 07/30/ | Office | Cardiology | Agata Tinajero DO | | | 2019 | Visit | | [address] | | | | | | [place] | | | | | | [address] | | | | | | | | +--------+---------+ + + + documented as of this encounter Visit Diagnoses Not on filedocumented in this encounter"
--- OUTSIDE RECORDS SUMMARY | ~2019-05-12 | XMS | Encounter Summary ---
Demographics + + + | Address | [address] | | | [place] [address] | + + + | Home Phone [...] [place], | | | | | [place] [address] | | + + + + + | Kellen Briones | ECON | [place] | | | | | [address] | | + + + + + Care Team Providers + +------+ + | Care Agency Manager Name | Role | Phone | + +------+ + | Barb Marte | [place]ANG | | + +------+ + Encounter Details +--------+ + + + + | Date | Type | Department | Care Team | Description | +--------+ + + + + | 03/05/ | Hospital | [facility] | Barb Marte PA | Abnormal mammogram | | 2018 | Encounter | MED CTR ULTRASOUND | [address] | | | | | [address] | [address] [place] | | | | | [place] | [address] | | | | | [address] | | | | | | [phone] | | | +--------+ + + + [...] | | | | | | [place] [address] | | | | | | [phone] | | | | | | | | +--------+---------+ + + + | 07/30/ | Office | Cardiology | Agata Tinajero DO | | | 2019 | Visit | | [address] | | | | | | [place] | | | | | | [address] | | | | | | | [...]
--- OUTSIDE RECORDS SUMMARY | ~2019-05-12 | XMS | Encounter Summary ---
Demographics + + + | Address | [address] | | | [place] [address] | + + + | Home Phone [...] [place], | | | | | [place] [address] | | + + + + + | Kellen Briones | ECON | [place], [place] | | | | | [address] | | + + + + + Care Team Providers + +------+ + | Care Plastics Tooling Engineer Name | Role | Phone | [...] | Cervical | Marissa, | [address] | | | | | spondylosis | Tk Monreal MD | [place], | | | | | Procedures | [address] | [place] | | | | | [place] INJ | [place] | [address] | | | | | DX/THER AGNT | [facility] [place] | Phone: | | | | | [place] | [address] | [phone] | | | | | [address], | Phone: | Fax: | | | | | | [phone] | [phone] | | | | | CERV/THORAC, | Fax: | | | | | | 1ST LEVEL | [phone] | | | | | | UT INJ | | | | | | | DX/THER AGNT | | | | | | | [place] | | | | | | | [address] [place], | | | | | | | | | | | | | | CERV/THORAC, | | | | | | | 2ND LEVEL | | | | | | | UT INJ | | | | | | [...] + + | 03/08/ | Hospital | [facility] | [place], | Neck pain on right | | 2015 | Encounter | MED CTR XRAY [address] | [address]YA[address] | side; DDD | | | | [place] | [facility], | (degenerative disc | | | | [place] [address] | [place] [address] | disease), cervical; | | | | [phone] | [phone] | Facet arthritis of | | | | | | cervical region | | | | | Media PlannerJordan | | +--------+ + + + + [...] | 2019 | Visit | | [address] | | | | | | [place] | | | | | | [place] [address] | | | | | | [phone] | | | | | | | | +--------+---------+ + + + | 07/30/ | Office | Cardiology | Agata Tinajero DO | | | 2020 | Visit | | [address] | | | | | | [place], [place] | | | | | | [address] [...] Clementine Winchester presents to the | [facility] | | fluoroscopy suite for fluoroscopically-guided right C3-C4, C4-C5 and [facility] | | C5-C6 facet injections as part [...] [address] | [place] | [phone] | | [facility] | | [address] | | | - IMAGING | | [...]
--- OUTSIDE RECORDS SUMMARY | ~2019-05-12 | XMS | Encounter Summary ---
Demographics + + + | Address | [address] | | | [place] [address] | + + + | Home Phone [...] [place], | | | | | [place] [address] | | + + + + + | Kellen Briones | ECON | [place], [place] | | | | | [address] | | + + + + + Care Team Providers + +------+ + | Care Pump Installation And Servicer Name | Role | Phone | [...] + | 08/27/ | Telephone | [facility] | Tk Ann | Other | | 2012 | | PHYSIATRY [address] | T, [address] | | | | | [place], | [place], [place] | | | | | [place] [address] | [address] | | | | | [phone] | | | +--------+ + + + [...] | | | | | | [place] [address] | | | | | | [phone] | | | | | | | | +--------+---------+ + + + | 07/30/ | Office | Cardiology | Agata Tinajero DO | | | 2019 | Visit | | [address] | | | | | | [place] | | | | | | [address] | | | | | | | | +--------+---------+ + + + documented as of this encounter Visit Diagnoses Not on filedocumented in this encounter"
--- OUTSIDE RECORDS SUMMARY | ~2019-05-12 | XMS | Encounter Summary ---
Demographics + + + | Address | [address] | | | [place] [address] | + + + | Home Phone [...] [place], | | | | | [place] [address] | | + + + + + | Kellen Briones | ECON | [place], [place] | | | | | [address] | | + + + + + Care Team Providers + +------+ + | Care Folder Machine Adjuster Name | Role | Phone [...] + + | 04/05/ | Telephone | [facility] | Irving Becerril, | Medication Question | | 2015 | | NEUROSURGERY [address] | DO [address] | | | | | [address] [facility] | [address] [place], [place] | | | | | [place], [place] | [id number] | | | | | [address] | | | | | | [phone] | | | +--------+ + + + [...] [place] | | | | | [place] [address] | | | | | | [phone] | | | | | | | | +--------+---------+ + + + | 07/30/ | Office | Cardiology | Agata Tinajero DO | | | 2019 | Visit | | [address] | | | | | | [place] | | | | | | [id number] | | | | | | | | +--------+---------+ + + + documented as of this encounter Visit Diagnoses Not on filedocumented in this encounter"
--- OUTSIDE RECORDS SUMMARY | ~2019-05-12 | XMS | Encounter Summary ---
Demographics + + + | Address | [address] | | | [place] [address] | + + + | Home Phone [...] [place], | | | | | [place] [address] | | + + + + + | Kellen Briones | ECON | [place] | | | | | [address] | | + + + + + Care Team Providers + +------+ + | Care Traffic Clerk Name | Role | Phone | + +------+ + | Barb Marte | THANG | | + +------+ + Encounter Details +--------+ + + + + | Date | Type | Department | Care Team | Description | +--------+ + + + + | 03/05/ | Hospital | [facility] | Barb Marte PA | Abnormal mammogram | | 2018 | Encounter | MED CTR MAMMOGRAPHY | [address] | | | | | [address] | [address] [place] | | | | | [place] | [address] | | | | | [address] | | | | | | [phone] | [place] | | +--------+ [...] | | | | | | [place] [address] | | | | | | [phone] | | | | | | | | +--------+---------+ + + + | 07/30/ | Office | Cardiology | Agata Tinajero DO | | | 2019 | Visit | | [address] | | | | | | [place] | | | | | | [address] | | | | | | | [...]
--- OUTSIDE RECORDS SUMMARY | ~2019-05-12 | XMS | Encounter Summary ---
Demographics + + + | Address | [address] | | | [place] [address] | + + + | Home Phone [...] [place], | | | | | [place] [address] | | + + + + + | Kellen Briones | ECON | [place], [place] | | | | | [address] | | + + + + + Care Team Providers + +------+ + | Care Bag Grader Name | Role | Phone | [...] + + | 10/08/ | Telephone | [facility] | Tk Ann | Other (Schedule | | 2012 | | PHYSIATRY [address] | T, [address] | injection) | | | | [place], | [place], [place] | | | | | [place] [address] | [address] | | | | | [phone] | | | +--------+ + + + [...] | | | | | | [place] [address] | | | | | | [phone] | | | | | | | | +--------+---------+ + + + | 07/30/ | Office | Cardiology | Agata Tinajero DO | | | 2019 | Visit | | [address] | | | | | | [place] | | | | | | [address] | | | | | | | | +--------+---------+ + + + documented as of this encounter Visit Diagnoses Not on filedocumented in this encounter"
--- OUTSIDE RECORDS SUMMARY | ~2019-05-12 | XMS | Encounter Summary ---
Demographics + + + | Address | [address] | | | [place] [address] | + + + | Home Phone [...] [place], | | | | | [place] [address] | | + + + + + | Kellen Briones | ECON | [place] | | | | | [address] | | + + + + + Care Team Providers + +------+ + | Care Facilities Custodian Name | Role | Phone | + [...] | | | | [place] | [phone] | | | | | [address] | | | | | | [phone] | | | +--------+ + + + [...] | | | | | | [place] [address] | | | | | | [phone] | | | | | | | | +--------+---------+ + + + | 07/30/ | Office | Cardiology | Agata Tinajero DO | | | 2019 | Visit | | [address] | | | | | | [place] | | | | | | [address] | | | | | | | [...]
--- OUTSIDE RECORDS SUMMARY | ~2019-05-12 | XMS | Encounter Summary ---
Demographics + + + | Address | [address] | | | [place] [address] | + + + | Home Phone [...] [place], | | | | | [place] [address] | | + + + + + | Kellen Briones | ECON | [place], [place] | | | | | [address] | | + + + + + Care Team Providers + +------+ + | Care Forest Supervisor Name | Role | Phone | [...] Thoracic or | [place], | [address] | | | | | lumbosacral | Tk Monreal MD | [place], | | | | | neuritis or | [address] | [place] | | | | | | [place] | [address] | | | | | radiculitis, | [place], [place] | Phone: | | | | | unspecified | [address] | [phone] | | | | | Procedures | Phone: | Fax: | | | | | HI INJECT | [phone] | [phone] | | | | | ANES/STEROID | Fax: | | | | | | FORAMEN | [phone] | | | | | | LUMBAR/SACRA | | | | | | | L W IMG | | | | | | | GUIDE ,1 | | | | | | | LEVEL [place] | | | | | | [...] + + | 10/06/ | Hospital | [facility] | Tk Ann | Lumbar radiculopathy | | 2013 | Encounter | MED CTR XRAY [address] | T, [address] | | | | | [place] | [place], [place] | | | | | [place] [address] | [address] | | | | | [phone] | | | | | | | Tape Making Machine Operator, [place] | | +--------+ + + [...] | | | | | | [place] [address] | | | | | | [phone] | | | | | | | | +--------+---------+ + + + | 07/30/ | Office | Cardiology | Tinajero Agata, DO | | | 2019 | Visit | | [address] | | | | | | [place] | | | | | | [address] | | | | | | | [...] ICD-9 Code 724.4 Ms. Clementine Cortez | [facility] | | Annabella presents to the fluoroscopy suite for fluoroscopically-guided [facility] | | bilateral L5-S1 transforaminal epidural [...] ST. | [address] | [place] | [phone] | | [facility] | | [address] | | | - IMAGING | | [...]
--- OUTSIDE RECORDS SUMMARY | ~2019-05-12 | XMS | Encounter Summary ---
Demographics + + + | Address | [address] | | | [place] [address] | + + + | Home Phone [...] [place], | | | | | [place] [address] | | + + + + + | Kellen Briones | ECON | [place], [place] | | | | | [address] | | + + + + + Care Team Providers + +------+ + | Care Nursing Staffing Coordinator Name | Role | Phone | [...] | Lumbar | [place], | [address] | | | | | radiculopath | Tk Monreal MD | [place], | | | | | y | [address] | [place] | | | | | Procedures | [place] | [address] | | | | | [place] INJECT | [place], [place] | Phone: | | | | | ANES/STEROID | [address] | [phone] | | | | | [place]AMEN | Phone: | Fax: | | | | | LUMBAR/SACRA | [phone] | [phone] | | | | | L W IMG | Fax: | | | | | | GUIDE ,1 | [phone] | | | | | | LEVEL [...] + + | 02/24/ | Hospital | [facility] | Mono Diaz, | Lumbar radiculopathy | | 2018 | Encounter | MED CTR XRAY [address] | PA-C [address] | | | | | [place] | [address] [place] | | | | | [place] [address] | [place] [address] | | | | | [phone] | [phone] | | | | | | | | | | | | Sampler TesterJordan | | +--------+ + + + + [...] | | | | | | [place] [address] | | | | | | [phone] | | | | | | | | +--------+---------+ + + + | 07/30/ | Office | Cardiology | Agata Tinajero DO | | | 2019 | Visit | | [address] | | | | | | [place] | | | | | | [address] | | | | | | | [...]
--- OUTSIDE RECORDS SUMMARY | ~2019-05-12 | XMS | Encounter Summary ---
Demographics + + + | Address | [address] | | | [place] [address] | + + + | Home Phone [...] [place], | | | | | [place] [address] | | + + + + + | Kellen Briones | ECON | [place], [place] | | | | | [address] | | + + + + + Care Team Providers + +------+ + | Care Emergency Room Tech Name | Role | Phone | [...] + + | 06/19/ | Office | [facility] | Suricz, | Lumbar radiculopathy | | 2017 | Visit | PHYSIATRY [address] | [address] | (Primary Dx); | | | | [place], | [facility], | Spinal stenosis [place] | | | | [place] [address] | [place] [address] | lumbar region with | | | | [phone] | [phone] | psiqocuqjwmsy-[id number]-F0 | | | | | | level [...] in this encounter Patient Instructions Patient Instructions Claudai Das PA-C - 06/19/2016 11:51 AM PST1) [...] of blood sugars if you are diabetic. woodworking machine feeder risk can lead to osteoporosis which is [...] of the procedure you must provide a pack train driver to take you home. For all [...] and narcotic medications use; she currently uses [place], Flexeril and [place] bapentin. She just underwent [...] 2. Spinal stenosis of lumbar region with oedfrhpuuscuv-V0-M5 level moderately severe 3. DDD (degenerative disc [...] | | | | | | [place] [address] | | | | | | [phone] | | | | | | | | +--------+---------+ + + + | 07/30/ | Office | Cardiology | Agata Tinajero DO | | | 2019 | Visit | | [address] | | | | | | [place] | | | | | | [address] | | | | | | | | +--------+---------+ + + + documented as of this encounter Results [place] [facility] Lumbar Transforaminal (06/27/2016 2:59 PM PST) + + | Specimen | + + | | + + + + + | Narrative | Performed At | + + + | 06/27/2016 Bilateral Transforaminal Epidural Steroid Injections | [facility] | | Diagnosis: Lumbar radiculopathy ICD-10 Code M54.16 Clementine | [facility] | | Lizett Winchester presents to the fluoroscopy suite for [facility] | | fluoroscopically-guided bilateral L5-S1 transforaminal [...] | + + + + + | [facility] | [address] | [place] | [phone] | | [facility] | | [address] | | | - IMAGING | | | | + + + + + documented in this encounter Visit Diagnoses + + | Diagnosis | + + | Lumbar radiculopathy - Primary Thoracic or lumbosacral neuritis or radiculitis, | | unspecified | + + | Spinal stenosis of lumbar region with ikhtvuxrtizbf-P8-F9 level moderately severe | | Spinal stenosis, [...]
--- OUTSIDE RECORDS SUMMARY | ~2019-05-12 | XMS | Encounter Summary ---
Demographics + + + | Address | [address] | | | [place] [address] | + + + | Home Phone [...] [place], | | | | | [place] [address] | | + + + + + | Kellen Briones | ECON | [place], [place] | | | | | [address] | | + + + + + Care Team Providers + +------+ + | Care Barrel Painter Name | Role | Phone | [...] | | n | spinal canal | [address] | [place] | | | | | | [place], | [place], [place] | | | | | Spondylolist | [place] [address] | [address] Phone: | | | | | hesis of | Phone: | [phone] | | | | | cervical | [phone] | Fax: | | | | | region | [phone] Fax: | [phone] | | | | | Right hip | | | | | | | pain | [phone] | | | | | | Trochanteric [...] + + | 07/23/ | Office | [facility] [place] | Tk Ann | Lumbar radiculopathy | | 2013 | Visit | PHYSIATRY [address] | TMD [address] | (Primary Dx); DDD | | | | [address], | [place], [place] | (degenerative disc | | | | [place] [address] | [id number] | disease), lumbar; | | | | [phone] | | 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 Please also provide a delivery driver/customer service to take you home on the day [...] Stroke Syncope and collapse Cancer Breast Hyperlipidemia SC (myocardial infarction) GERD (gastroesophageal reflux disease) Asthma [...] 4. Spinal stenosis of lumbar region with [id number] level moderately severe 5. Facet arthritis of [...] issue. Reportedly she has already seen a cutter hand and nothing abnormal w as found. She [...] | 2019 | Visit | | [address] | | | | | | [place], | | | | | | [place] [address] | | | | | | [phone] | | | | | | | | +--------+---------+ + + + | 07/30/ | Office | Cardiology | Agata Tinajero DO | | | 2019 | Visit | | [address] | | | | | | [place] | | | | | | [address] | | | | | | | [...] | Spinal stenosis of lumbar region with [id number] level moderately severe | | Spinal stenosis, [...]
[~2019-05-12 14:43] MED LIST changes: +LASIX20 MG PO; +NEURONTIN300 MG PO; +PRINIVIL5 MG PO; +THIAMINE H100 MG/1 M IV
--- OUTSIDE RECORDS SUMMARY | 2019-05-12 14:46 | XMS ---
PreManage Notification: RADHA NUNEZ Security Manuscripts Curator Events No recent Security Events currently on file CRITERIA MET - PDMP CARE PROVIDERS JENNIFFER ALMANZAR Physician Propeller Inspector 01/30/2018-Current PHONE: Unknown Monica has no Care Guidelines for this patient. Ruben VISIT COUNT (12 MO.) 2 DENY [facility]arez TOTAL 2 NOTE: Visits indicate total known visits. 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
--- NOTE | 2019-05-12 18:05 | NUR ---
Report received from ED. Diagnosis of metabolic encephalopathy. Patient reports weakness for two days and recent fall moving from the couch. Also reports having vomiting and diarrhea. History of back problems, HTN, high cholesterol, depression, [place], CVA, and diabetes. Surgical hx of bypass graft, hysterectomy, masectomy on right side, and cervical fusion. Received two liters of IV fluids in ER. Patient arrives to unit via stretcher. Patient follows commands. Patient lives with daughter who reports patient has "fallen 7 times in the last 3 months." Admission process started.
--- NOTE | 2019-05-12 18:22 | NUR ---
Admission assessment conducted. Skin assessment shows redness to coccyx and depends incontinent of urine. New depends placed. Vital signs taken.
--- NOTE | 2019-05-12 18:40 | NUR ---
black cath placed with return of clear yellow urine.
--- NOTE | 2019-05-12 19:20 | NUR ---
REPORT TO NEXT SHIFT.
--- NOTE | 2019-05-12 19:55 | NUR ---
REPORT RECEIVED FROM DAY SHIFT RN. PT LYING IN BED, DROWSY. AWAKENS TO VOICE. SPEECH STARTS CLEAR AND THEN TURNS GARBLED. HODGE PATENT. IVF INFUSING. MOTTLING NOTED IN BILAT LOWER EXTREMITIES. PT DENIES PAIN OR NAUSEA. DAUGHTER BACK IN ROOM AT THIS TIME.
--- NOTE | 2019-05-12 20:05 | NUR ---
IV ABX INFUSING
--- NOTE | 2019-05-12 21:10 | NUR ---
EVENING ASSESSMENT COMPLETE. PT PLEASANTLY CONFUSED. IV ABX DONE. REDDENED AREA NOTED ON COCCYX, SKIN INTACT. ALLEVYN PLACED. HEEL PROTECTORS APPLIED, BILAT HEELS REDDENED BUT BLANCHABLE. REPOSITIONED TO RIGHT SIDE WITH PILLOWS. BED ALARM ON FOR SAFETY.
--- NOTE | 2019-05-12 23:22 | NUR ---
PT RESTING IN BED WITH EYES CLOSED, NO APPARENT DISTRESS.
--- NOTE | 2019-05-13 00:29 | NUR ---
REPOSITIONED PT WITH PILLOWS. PERIODS OF SLEEP APNEA NOTED. OXYGEN SATS CURRENTLY 93% ON RA. IVF INFUSING. HODGE DRAINING YELLOW URINE.
--- NOTE | 2019-05-13 01:09 | NUR ---
NOTED THAT SAT WAVEFORM WAS POOR QUALITY SO SAT MONITOR CHANGED TO THE L EAR. SAT THE SHOWED TO BE UPPER 70'S WITH IMPROVED WAVEFORM. RESP REG, MOUTH BREATHING. 02 2 L NC PLACED IN PT MOUTH SHE IS A MOUTH BREATHER. DID INC 02 TO 4L FOR FEW MINUTES UNTIL SATS IMPROVED TO UPPER 90'S THEN BACK TO 2L. SATS STAYING UPPER 90'S. NO APNEA NOTED DURING THIS. PT DID NOT AWKEN.
--- NOTE | 2019-05-13 03:20 | NUR ---
PT RESTING IN BED WITH EYES CLOSED, RR EVEN AND UNLABORED. O2 2L NC PLACED IN MOUTH D/T MOUTH BREATHING, SATS 100%.
--- NOTE | 2019-05-13 04:24 | NUR ---
IV ABX HUNG. PT REPOSITIONED IN BED. PT ABLE TO FOLLOW COMMANDS, SPEECH REMAINS GARBLED. ASIAN STUDIES PROGRAM CHAIR STRENGTH EQUAL BILAT. MOTTLING MUCH IMPROVED. EXTREMITIES FEEL WARM TO THE TOUCH. ORAL CARE DONE. HODGE DRAINING CLEAR YELLOW URINE.
--- NOTE | 2019-05-13 06:32 | NUR ---
PT REPOSITIONED IN BED WITH PILLOWS. PT STATES "PUT SOMETHING WARM", WARM BLANKET GIVEN. PT ANSWERING YES OR NO QUESTIONS, SPEECH STARTS CLEAR AND THEN TURNS GARBLED. ABLE TO FOLLOW COMMANDS. MOTTLING IN LOWER EXTREMITIES RETURNING. ALL EXTREMITIES FEEL COOL. HR IN THE 80'S, OXYGEN 99 2L/NC.
--- NOTE | 2019-05-13 09:37 | NUR ---
PT BECAME UPSET ONCE DAUGHTER ENTER THE ROOM. PT YELLING AND GRABING AT TUBES AND LINES. DAUGHTER YELLING AT STAFF SECURITY HAPPENED TO BE IN THE DEPARTMENT AND TALKED WITH HER. THEN SHE CAME BACK TO THE ROOM AND IS COOPERATIVE WITH HOSPITAL STAFF. DR PINEDA IN DEPARTMENT AND NEW ORDER RECEIVED. ATIVAN 1MG IVP GIVEN AT THIS TIME. PT WAS YELLING, PULLING AT TUBES AND LINES AND YELLING "TAKE IT OUT" "I WANT THAT MAN DOCTOR" " TALKING TO THE TV AND TELL GLASS CARRIER THAT THE MAN TOLD HER TO GO" "TALKING TO A PERSON THAT WAS STANDING NEXT TO GLASS CARRIER, BUT NOT A MAN IN THE ROOM" "ALSO YELLING AT SECURITY TO GET OUT".
--- NOTE | 2019-05-13 09:42 | NUR ---
PT APPEARS TO BE SETTLED AT THIS TIME, [id number] AND DID C/O NAUSEA HOB ELEVATED, DUE TO PT IS UNABLE TO TAKE ZOFRAN AT THIS TIME DUE TO REACTIONS.
--- NOTE | 2019-05-13 09:52 | NUR ---
TALKED WITH DAUGHTER ABOUT PT RECEIVEING THE FLU VACATINE.
--- NOTE | 2019-05-13 09:58 | NUR ---
PT RESTING AT THIS TIME, APPEARS COMFORTABLE AT THIS TIME.
--- NOTE | 2019-05-13 10:00 | NUR ---
In to speak with pt. She is not able to respond at this time. Spoke with nurse and she states pt lives at home with daughter. Daughter lives in downstairs and pt lives upstairs. Daughter assist mom. Attempted to call the daughter for further information, but she was not available.
--- NOTE | 2019-05-13 10:34 | NUR ---
PT AWAKENED AND WAS YELLING TAKE IT OUT TAKE IT OUT. AT THIS TIME REMOVED HODGE AND THEN PT SETTLED BACK DOWN AND APEEARS TO BE SLEEPING AGING AT THIS TIME. PT DAUGHTER RETURNED AND IS SITTING IN THE ROOM [facility] AT THIS TIME.
--- NOTE | 2019-05-13 11:27 | NUR ---
XRAY HERE CXR OBTAINED AT THIS TIME, PT TURNED FROM SIDE TO SIDE FOR CLEAN LINEN, ATTENDS PLACED ALSO AT THIS TIME. PT BEGAIN TO YELL "NO NO NO" AND THEN GARBLED SPEECH NOTED. PT TURNED TO LEFT SIDE AT THIS TIME. HELL PROCTORS INPLACE. PT DOES SETTLE BACK DOWN AND TO SLEEP. TALKED WITH DAUGHTER ABOUT THIS AM HAPPENDING, SHE WAS CALM AND UNDERSTOOD WHEN I TOLD HER MOM TO GO AHEAD, THAT THE PATIENT WAS PULLING OFF HER BLOOD PRESSURE CUFF AND NOT HER IV. EVEN SHOWED THE DAUGHTER THAT THE PATIENT STILL HAD THE TUBING OF THE BP IN HER HAND. THEN DAUGHTER STATES "O' I DID NOT SEE THAT DUE TO SHE WAS TALKING ABOUT HER IV." EXPLAINED THAT I WOULD NOT HAVE TOLD HER TO PULL THAT OUT DUE TO I WOULD THEN HAVE TO PLACE A NEW ONE, BUT THE BP CUFF I CAN ALSO JUST PUT IT BACK INPLACE. DAUGHTER THEN DECIDED TO GO HOME AND LET THE PETS OUT AND WILL RETURN.
--- NOTE | 2019-05-13 12:11 | NUR ---
PT REFUSED TO HAVE CBG DONE AT THIS TIME, WILL TRY AGAIN LATER.
[2019-05-13] MEDS ORDERED: ADULT LOW DOSE81 MG PO (12:24)
[2019-05-13] MEDS ORDERED: GABAPENTIN100 MG PO (12:25)
[2019-05-13] MEDS ORDERED: KLOR-CON M1010 MEQ PO (12:26)
[2019-05-13] MEDS ORDERED: DURAGESIC1 EACH TOP (12:27)
--- NOTE | 2019-05-13 12:28 | NUR ---
PT AWAKEND WHEN DATA ENTRY SPECIALIST ENTERED ROOM. SHE REFUSED CBG AGAIN AT THIS TIME AND REFUSED TO HAVE RAL TEMP TAKE. TEMPROAL TEMP OBTAINED. PT ALLOWED DATA ENTRY SPECIALIST TO COMPLETE ASSESSMENT AT THIS TIME. SHE IS CURRENT LYING IN BED WITH EYES CLOSED, OPENS THEM WHEN SPOKE TOO. FLUIDS OFFERED, PT REFUSED AT THIS TIME.
[2019-05-13] MEDS ORDERED: CYMBALTA30 MG PO (12:29)
[2019-05-13] MEDS ORDERED: AMLODIPINE BESY10 MG PO (12:34)
--- NOTE | 2019-05-13 14:04 | NUR ---
PT ASLEEP AWAKEN OFFERED FLUIDS AT THIS TIME AND SHE DID NOT CARE FOR ANY AT THIS TIME.PT OFFERED THE USE OF A BEDPAN OR BEDSIDE COMMODE AND SHE SAID NO. BUT DID STATE SHE HAD TO PEE. ATTENDS CHECKED AND CURRENTLY DRY AT THIS TIME. PT ANSWERED QUESTION WELL, THEY WHERE SIMPLE QUESTIONS, BUT NO GARBLED SPEECH OR WORD SALADA NOTED. PT TURNED TO HER RIGHT SIDE.
--- NOTE | 2019-05-13 14:09 | NUR ---
GRAYSON CORCORAN NOTED PT IS VERY CONFUSED AT THE MOMENT. REFUSED VISIT FROM FR MCCULLOUGH. PT SLEEPING AT MOMENT, WILL CHECK BACK AGAIN
[2019-05-13] MEDS ORDERED: MULTI VITAMIN1 EACH PO (15:07)
--- NOTE | 2019-05-13 15:08 | NUR ---
Medications reconciled using pharmacy records and interview with patient's daughter
--- NOTE | 2019-05-13 16:07 | NUR ---
PT AWAKEN AND VERY COOPERATIVE AND PLEASTEN WITH STAFF AND DAUGHTER. PT PLACED ON BEDPAN, BUT UNABLE TO GO THEREFORE UP TO THE BEDSIDE COMMODE, AND STILL UNABLE TO VOID. PT TEETH BRUSHED, AND PLACED BACK INTO HER MOUTH. HAIR WETTENED AND BRUSHED AT THIS TIME. FRESH PULL-UP PLACED. THEN PT BACK TO BED. SHE IS ON ROOM AIR WITH A SPO2 97%. PT DRANK SOME WATER AND ATE SOME JELLO AT THIS TIME.
--- NOTE | 2019-05-13 16:32 | NUR ---
BLADDER SCAN PT BLADDERED SCAN AT THIS TIME FOR 276MLS.
--- NOTE | 2019-05-13 17:17 | NUR ---
PT UP TO BS COMMODE VOIDED 150MLS OF URINE WITH WHAT APPEARS TO BE BLOOD. IT IS ALSO NOTED THAT PT HAS VERY LARGE HEMMORROIDS THAT APPEAR TO HAVE BLOOD ON THEM. PULL UP IS CLEAN AND DRY AT THIS TIME. SPEECH IS CLEARER AT THIS TIME AND IS ABLE TO CARRY ON A LONGER CONVERSATION, BUT THEN DOES HAVE SOME WORD SALDA AND GARBLED SPEECH. PT IS AWARE OF THIS AND WILL STOP AND THINK AND START AGAIN. PT MOVEMENT GETTING OUT OF BED AND BACK TO BED HAS INPROVED FROM THE LAST TIME GETTING UP. PT ABLE TO AMBULATED 6 STEPS TO THE TOP OF THE BED WITHOUT ASKING HER TOO. AND THEN SHE WAS ABLE TO MAINTAINE HER UPPER BODY AND STAFF HELPED WITH THE LEGS. PT ASKED FOR THE HEAD OF THE BED TO BE ELEVATED. CALL LIGHT WITHIN REACH AND SIDERAILS X4. PT IS ACROSS FROM NURSES STATION.
--- NOTE | 2019-05-13 18:05 | NUR ---
PT TALKING ON THE PHONE WITH HER SISTER AT THIS TIME, AND APPEARS TO BE ABLE TO KIM ON A CONVERSATION WITH HER. FROM WHAT RETAIL ASSISTANT STORE MANAGER CAN HEARD FROM THE CONVERSATION SHE IS DOING WELL WITH FOLLOWING THE CONVERSATION AT THIS TIME. SHE IS TELL HER SISTER THE EVENTS THAT BROUGHT HER TO THE HOSPITAL. PT IS COOPERATIVE WITH HOSPITAL ROUTINE AT THIS TIME.
--- NOTE | 2019-05-13 18:19 | NUR ---
PT DAUGHTER GAVE PERMISION TO PROVIDE THE GRANDDAUGHTER INFORMATIOON IF SHE CALLS: TONYA BANEGAS.
--- NOTE | 2019-05-13 18:34 | NUR ---
PT SITTING UP IN BED WATCHING TV AND TRYING TO DINK HER CLEAR LIQUIDS AT THIS TIME. PT IS HAPPY THAT SHE TALKED WITH HER SISTER.
--- NOTE | 2019-05-13 18:53 | NUR ---
PT AWAKE WATCHING TV AND DRINKING HER BROTH A THIS TIME.
--- NOTE | 2019-05-13 20:00 | NUR ---
PT UP IN BED WATCHING TV. AAOX4, SLOW TO RESPOND WITH OCCASIONAL EXPRESSIVE APHASIA, PT AWARE AND CORRECTS SELF EASILY. SINUS RHYTHM ON MONITOR. WEAK PERPHERIAL PULSES, SKIN WARM AND PINK, CAP REFILL LESS THAN 3 SECONDS. +1 EDEMA TO BLE AND TRACE EDEMA TO ARMS. LUNGS CLEAR THROUGHOUT AND 97% ON ROOM AIR. MILD ABD DISTENSION, DENIES NAUSEA. DENIES PAIN. SKIN IS FRAGILE, BRUSING THROUGHOUT, ALLEVYN TO COCCYX. IV SITE FLUSHED AND PATENT, LR INFUSING AT 100 MLS/HR. PT 1PA TO BSC, VOID AND BM, BACK TO BED. UPDATED PLAN OF CARE, REINFORCED SAFETY AND FALL PRECAUTIONS. DENIES OTHER NEEDS. CALL LIGHT WITHIN REACH.
--- NOTE | 2019-05-13 21:00 | NUR ---
CBG 105, NO INSULIN COVERAGE NEEDED.
--- NOTE | 2019-05-13 23:10 | NUR ---
PT HEARD JAGJIT RN I NROOM TO ASSESS PT. PT REPORTS "GAS" AND ABD DISCOMFORT. REQUESTS HEATING PAD FOR COMFORT, PROVIDED. DENIES OTHER NEEDS. CALL LIGHT WITHIN REACH,
--- NOTE | 2019-05-14 00:21 | NUR ---
NO ACUTE CHANGES TO ASSESSMENT. SPEECH CONTINUES TO IMPROVE. PT REMAINS AAOX4. ENCOURAGED REST. DENIES OTHER NEEDS. CALL LIGHT WITHIN REACH.
--- NOTE | 2019-05-14 02:31 | NUR ---
pt up to bsc. voided and had small loose bm. jossy care provided. assisted pt back to bed x1 minimal assist. call light in reach. pt denies needs at this time.
--- NOTE | 2019-05-14 05:30 | NUR ---
PT AWOKE AGGITATED, RESTLESS, UNABLE TO FOLLOW COMMANDS, PULLED IV SITE OUT. PT CLEANED UP. ASSISTED TO BSC, VOID, BACK TO BED. PT CONTINUES TO BE AGGITATED AND CONFUSED, REORIENTED AND THERAPEUTIC COMMUNICATION. PT BEGAN TO HAVE CLEAR EMESIS. PT NOW TEARFUL.
--- NOTE | 2019-05-14 05:50 | NUR ---
PHONE CALL TO DR. HUFFMAN REGARDING EMESIS, LOSS OF IV ACCESS, PT REFUSAL TO HAVE INTERVENTIONS. NO NEW ORDERS. CONTINUE THERAPEUTIC COMMUNICATION AND ATTEMPT IV ACCESS.
--- NOTE | 2019-05-14 06:50 | NUR ---
RN AT BEDSIDE FOR OVER AN HOUR PROVIDING THERAPEUTIC COMMUNICATION, REORIENTATION, AND REASSURANCE. MENTATION IMPROVES WITH COMMUNICATION AND REORIENTATION. PT AGREEABLE TO IV ACCESS AND IV FLUIDS. UPDATED PLAN OF CARE. PT NOW PLEASANT AND NOT TEARFUL OR CONFUSED.
--- NOTE | 2019-05-14 07:30 | NUR ---
PATIENT RESTING IN BED AT THIS TIME. PATIENT REPORT RECIEVED FROM BOARDING MOTHER RN. PATIENT HAD ONE EPISDOE OF AGITATION. PATIENT IS ALERT AND ORIENTED AT THIS TIME. WILL CONTINUE TO CLOSELY MONITOR.
--- NOTE | 2019-05-14 07:45 | NUR ---
MDTUnable to chart intervention. Pt discussed in MDT with and team.
--- NOTE | 2019-05-14 08:00 | NUR ---
PATIENT ASSESSMENT COMPLETED. PATIENT IS RESTING I NBED. RASCH IN TO SEE PATIENT THIS AM. PATIENT STATES "I AM GOING HOME TODAY". MD STATED "LETS SEE HOW YOU DO WITH EATING AND WALKING TODAY. PATIENT REPEATED SEVERAL TIMES SHE WILL BE LEAVING TODAY. PER MD ADVANCE ORDER. PATIENT IS ALERT AT THIS TIME. BREATH SOUNDS CLEAR AND DENEIS SOB. SPO2 93% ON RA. BOWEL TONES ACTIVE. BREAKFAST ORDERED. PATIENT DENIES ANY OTHER NEEDS AT THIS TIME.
--- NOTE | 2019-05-14 09:24 | NUR ---
PATIENT MEDICATIONS GIVEN. PATIENT SITTING UP AT THE EDGE OF THE BED AT THIS TIME EATING. WILL CONTINUE TO CLOSELY MONITOR.
--- NOTE | 2019-05-14 11:32 | NUR ---
PATIENT RESTING IN BED AT THIS TIME. PATIENTS DAUGHTER ARRIVED. THIS RN IN VISITING WITH DAUGHTER AND PATIENT FOR OVER AN HOUR. PATIENT EXPRESSED WANTING TO LEAVE TODAY. CALLED MD HUFFMAN TO UPDATE PATIENT AND FAMILY ON PLAN OF CARE. PATIENT IS AGREEABLE TO STAYING UNTIL MD HUFFMAN FEELS SHE HAS IMPROVED MORE. PATIENMT HAS BEEN PLEASANT. PATIENT INITIALLY GOT VERY FRUSTRATED WHEN HER DAUGHTER ARRIVED AND BOTH HER AND HER DAUGHTER WERE RAISING THEIR VOICES AT EACH OTHER. AFTER THIS STAFF MEMBER WAS IN TO VISIT AND UPDATE PATIENT WAS ABLE TO CALM DOWN AND RELAX. PATIENTS DAUGHTER STAYED AND VISITED FOR AWHILE AND NOW HEADING HOME TO GET SOME SOUP. WILL CONTINUE TO CLOSELY MONITOR.
--- NOTE | 2019-05-14 12:55 | NUR ---
PATIENTS DAUGHTER ARRIVED WITH PATIENTS LUNCH. PATIENT UP TO THE CAMMODE AND BACK SIDE OF BED TO EAT. PATIENT REMAINS ALERT AND ORIENT. ASSESSMENT REMAINS UNCHANGED. WILL CONTINUE TO CLOSELY MONITOR.
--- NOTE | 2019-05-14 13:38 | NUR ---
PT WAS ALERT, ORIENTED AND DAUGHTER AT BS.PT PLEASANT AND MENTIONED THAT FR LAGUNA WAS BY EARLIER. I QUIZZED HER TO WHETHER SHE WOULD LIKE FR MCCULLOUGH TO VISIT [facility], SHE SAID NO. INFORMED HER OF MASS ON CHANNEL [address], SHE SEEMED VERY INTERESTED TO VIEW. EXTENDED A BLESSING, WILL FOLLOW NEEDED
--- NOTE | 2019-05-14 14:47 | NUR ---
PATIENT RESTING IN BED WITH HER DAUGHTER AT THE BEDSIDE. PATIENT IS ALERT AND ORIENTED AND DRINKING WATER. PATIENT IS WATCHING TV AND DENIES ANY NEEDS AT THIS TIME. WILL CONTINUE TO CLOSELY MONITOR.
--- NOTE | 2019-05-14 16:12 | NUR ---
In to speak with pt. She is awake and somewhat oriented today. Able to answer questions, believes she is in [facility] and states how much she hates [facility]. States she has two walkers at home both FWW and 4 wheel walker, nebulizer, shower chair, and raised toilet seat. Thinks daughter is a state paid caregiver, but can't remember if she gets paid. Daughter cooks, cleans, assists with meds. Daughter lives downstairs. Pt states she only uses the upstairs as she cannot walk down the stairs. Wants to go home on discharge.
--- NOTE | 2019-05-14 17:50 | NUR ---
PATIENT VISITING WITH FAMILY AT THE BEDSIDE. UPDATED PATIENT AND FAMILY ON PLAN OF CARE FOR THE NIGHT. UPDATED THAT MD'S SWITCHED AND MD DE LOS SANTOS WILL BE CONTINING WITH HER CARE AT THIS TIME. PATIENT AND FAMILY AGREEABLE TO THIS PLAN. PATIENT HAS REMAINED ALERT AND ORIENTED, WITH EPISODES OF FORGETFULNESS AT TIMES, BUT IS EASILY REORIENTED. PATIENT DENIES ANY OTHER NEEDS AT THIS TIME. DINNER ORDERED. WILL CONTINUE TO CLOSELY MONITOR.
--- NOTE | 2019-05-14 20:00 | NUR ---
PT RESTING IN BED. PT IS PLEASANT AND ORIENTED TO ALL, PT ABLE TO RECALL EVENTS OF "CONFUSION." SINUS RHYTHM ON MONITOR. LUNGS CLEAR THROUGHOUT ON ROOM AIR. BOWEL TONES ACTIVE, DENIES NAUSEA, TOLERATING DIET. DENIES PAIN. VIDING QS. WEAK +1 PULSES TO EXTREMITIES. ALL EXTREMITIES WARM, PINK, AND NO MOTTLING NOTED. INTEGUMENTARY FRAGILE, BRUISING THROUGHOUT, GROSSLY INTACT, ALLEVYN TO COCCYX FOR REDNESS. 1PA TO BSC, GAIT STEADY, VOID WITH SMALL LIQUID BM, BACK TO BED. UPDATED PLAN OF CARE. REINFORCED SAFETY AND FALL PREVENTION. NONSLIP SOCK IN PLACE. ENCOURAGED REST AND SLEEP HYGIENE. PM CARE COMPLETED. WARM BLANKET PROVIDED. DENIES OTHER NEEDS. CALL LIGHT WITHIN REACH .
--- NOTE | 2019-05-14 22:03 | NUR ---
1PA TO [facility], VOIDED, BACK TO BED. PT REPORTS FEELING RESTLESS AND "WORKED UP." INFORMED PT OF MEDICATION TO ASSIST WITH RESTLESSNESS AND AGGITATION. ALL EDUCATION PROVIDED ON NEW MEDICATION, ALL QUESTIONS ANSWERED, PT AGREEABLE. DENIES OTHER NEEDS. WILL CONTINUE TO MONITOR.
--- NOTE | 2019-05-14 23:05 | NUR ---
CALL LIGHT ANSWERED, PT UNABLE TO REST AT THIS TIME. SLEEP KIT OFFERED TO PT, PT AGREEABLE. SLEEP MASK PROVIDED, LIGHTS DIMED. ENCOURAGED REST. DENIES OTHER NEEDS. CALL LIGHT WITHIN REACH.
--- NOTE | 2019-05-14 23:57 | NUR ---
CALL LIGHT ANSWERED, PT SBA TO BSC, VOID. BACK TO BED. NO ACUTE CHANGES TO ASSESSMENT. PT REMAINS AAOX4. DENIES OTHER NEEDS. CALL LIGHT WITHIN REACH.
--- NOTE | 2019-05-15 02:10 | NUR ---
PT ASSISTED TO BSC BY MALGORZATA GALICIA, BACK TO BED. PT RESTING IN BED AT THIS TIME DURING PT ROUNDS.
--- NOTE | 2019-05-15 04:22 | NUR ---
CALL LIGHT ANSWERED, PT REQUESTING USE BSC, SBA, GAI STEADY, BACK TO BED. PT STATES,"THAT MEDICATION REALLY HELPED BUT I'M FEELING WORKED UP AGAIN." ASSESSED CAUSES, PT UNABLE TO CLARIFY, PT STATES "I JUST GET RESTLESS AT NIGHT AND I REALLY WANT TO RELAX AND SLEEP." PRN MEDICATION PROVIDED, WILL CONTINUE TO MONITOR. EDEMA TO EXTREMITIES IMPROVING. MOTTLING TO BILAT KNEES NOTED, EXTREMITIES REMAIN WARM AND PINK. NO OTHER ACUTE CHANGES TO ASSESSMENT. DENIES OTHER NEEDS. CALL LIGHT WITHIN REACH.
--- NOTE | 2019-05-15 06:06 | NUR ---
PT APPEARS RESTFUL AND RELAXED. RESPIRATIONS EVEN AND UNLABORED. NO ACUTE DISTRESS NOTED.
--- NOTE | 2019-05-15 07:30 | NUR ---
PATIENT SHIFT REPORT RECIEVED FROM NORA GALICIA. PATIENT RESTING IN BED AT THIS TIME. PATIENT REMAINS ALERT AND ORIENTED THROUGHOUT THE NIGHT. PATIENT DENIES ANY NEEDS AT THIS TIME. CALL LIGHT IN REACH. WILL CONTINUE TO CLOSELY MONITOR.
--- NOTE | 2019-05-15 08:40 | NUR ---
PATIENTS NEPHEW WAS IN LAST NIGHT VISITING WITH PATIENT AND TALKING ABOUT PATIENTS HEALTH. NEPHEW VOICED HIS CONCERNS OF HER MEDICATION MANAGEMENT AND HIS CONCERN FOR HER HAVING BACK SURGERY. PATIENT HAS BEEN THINKING A LOT ABOUT THIS THROUGHOUT THE NIGHT AND TALKING WITH THE GUARD MANAGER RN AND THIS RN. PATIENT STATES "I AM AFRAID TO HAVE THIS SURGERY, I AM NOT SURE IF I REALLY NEED IT, I JUST FEAR I WILL GO IN AND NOT GET OFF THE OPERATING TABLE". PATIENT CALLED AND TALKED WITH HER DAUGHTER THIS AM AND TOLD HER DAUGHTER THIS. PATIENT BEGAN YELLING ON THE PHONE. WHEN THIS RN WENT IN TO TALK WITH PATIENT, PATIENT STATED "MY DAUGHTER DOES NOT UNDERSTAND. THIS IS MY BODY, MY HEALTH, AND MY DECISION, NOT HERS!". THIS RN SAT DOWN AND VISIT WITH PATIENT SHE VOICED HER CONCERNS. PATIENT STATES "MY DAUGHTER IS TRYING TO CONTROL ALL MY HEALTH DECISIONS AND IS PUSHING ME TO HAVE THIS SURGERY". UPDATED CASE MANAGMENT OF ALL CONCERNS. REASSURED PATIENT WE WILL SUPPORT HER IN HER DECISIONS AND REDIRECTED PATIENT TO CURRENT SITUATION AND TRYING TO HELP HER RELAX SO SHE CAN HEAL AND GET BETTER FROM HER CURRENT HOSPITALIZATION. PATIENT IS NOW RESTING IN THE CHAIR EATING BREAKFAST. PATIENT DENEIS ANY OTHER NEEDS AT THIS TIME. WILL CONTINUE TO CLOSELY MONITOR.
--- NOTE | 2019-05-15 09:00 | NUR ---
PATIENT ASSESSMENT COMEPLTED. PATIENT BREATH SOUNDS CLEAR AND ON RA. SPO2 98% AND DENIES SOB. BOWEL TONES ACTIVE. PATIENT HAS HAD SEVERAL LOOSE BM'S. MD AWARE. PATIENT ATE BREAKFAST AND TOLERATED WELL. TRACE EDEMA IN BLE. PATIENT DENIES ANY OTHER NEEDS AT THIS TIME. PATIENT UP SITTING IN THE CHAIR AND TOELRATING WELL. WILL CONTINUE TO CLOSELY MONITOR.
--- NOTE | 2019-05-15 10:30 | NUR ---
PATIENT WORKED WITH OCCUPATIONAL THERAPY AND MD IN TO SEE PATIENT. NEW ORDERS FOR PATIENT TO TRANSFER TO [facility]. PATIENT IS AGREEABLE TO PLAN OF CARE. CASE MANAGEMENT INVOLVED TO HELP GET PATIENT HOME WITH SUPPLIES SHE NEEDS. PATIENT REMAINS ALERT AND ORIENTED. WILL CONTINUE TO CLOSELY MONITOR.
--- NOTE | 2019-05-15 11:15 | NUR ---
PATIENT SHIFT REPORT GIVEN TO TENZIN GALICIA ON [facility]. PATIENT IS AGREEABLE TO PLAN OF CARE. PATIENT DAUGHTER UPDATED THAT PATIENT WILL MOVE TO [facility] AND PATIENTS DAUGHTER STATED "NO, I HATE [facility], THEY ARE NOT GOOD. CANT SHE STAY HERE". EXPLAINED THAT PATIENT IS DOING MUCH BETTER AND NO LONGER REQUIRES CRITICAL CARE LEVEL OF CARE. ALSO EXPLAINED THAT THE STAFF ON [facility] ARE WONDERFUL AND COMPETENT AND IF SHE HAS CONCERNS WITH SOMETHING WHILE SHE IS THERE TO LET US KNOW. PATIENT WORKING WITH PT AT THIS TIME AND WILL WALK OVER TO [facility] WITH THERAPIST. ALL BELONGINGS GATHERED AND SENT TO [facility] ROOM 112. ALL QUESTIONS ANSWERED. NO OTHER NEEDS AT THIS TIME.
--- NOTE | 2019-05-15 11:30 | NUR ---
Patient arrives to the unit ambulating with FWW and gait belt, assisted by PT. Patient oriented to the room. Medications given without difficulty. IV magnesium running at 50 mls/hr. Patient ambulated to toilet with FWW and SBA, voiding QS. Returned to chair, warm blankets provided. Patient denies further needs at this time, call light within reach.
--- NOTE | 2019-05-15 12:30 | NUR ---
Patient sitting up in chair eating lunch. Denies needs at this time, call light within reach.
--- NOTE | 2019-05-15 12:34 | NUR ---
CHECKED WITH PT TO SEE IF SHE WOULD LIKE VISIT FROM [facility]-NOT TODAY. PT STATED SHE IS WITH P.T. AND IS GETTING READY TO SHOWER.WILL CHECK BACK AGAIN
--- NOTE | 2019-05-15 14:00 | NUR ---
In and spoke with Clementine. Daughter in room. Daughter is very angry with this RN. When asked why, she is upset I completed a CM assessment yesterday. She states it is none of our business what happens at home. Informed these are required questions. She then states it's none of my business if she pays rent. I assured her I did not ask if she pays rent, but asked if Clementine has a state paid cg. She again stating it is none of my business. Clementine is attempting to shush her and telling her to be quiet. Daughter is standing over pt with raised voice. Pt states daughter is upset as she does not want to have back surgery. Daughter becomes even angrier. I asked the pt why she doesn't want to have surgery and she states she is almost 82 years old and doesn't think she will survive. Also states the DrMarlee told her it would be a long recovery and she doesn't want to go through this. I asked the daughter what she thought would be the worst thing to happen, if pt did not have surgery. Daughter states once again people are sticking their noses in where it doesn't belong and I know nothing. She then stormed out of the room. I then asked Clementine if her daughter has problems with drugs and she states no, she is seen by the [facility] and they assist her. Called [facility] referral made to with Janet Hernandez.
--- NOTE | 2019-05-15 14:40 | NUR ---
Patient sitting up in chair watching tv. IV magnesium running at 50 mls/hr. Medications given, no difficulty with administration. Patient ambulated to toilet with FWW independently. Produced a BM and voiding QS. Returned to chair. Warm blanket provided, denies further needs at this time, call light within reach.
--- NOTE | 2019-05-15 15:34 | NUR ---
Patient alert and oriented, able to ambulate with FWW independently. Regular diet, on RA. Patient receiving replacement magnesium and potassium. 24g in RAC. Fentanyl patch located on back. Patient receiving PO abx. Patient showered.
--- NOTE | 2019-05-15 15:52 | NUR ---
SHE IS IN TAKING A SHOWER. AFTER SHOWER SHE SAID SHE WILL SIT UP IN HER CHAIR FOR DINNER.
--- NOTE | 2019-05-15 16:10 | NUR ---
REPORT RECEIVED FROM GRAYSON DAVE PT ALERT AND ORIENTED CALL LIGHT AND H2O IN REACH. ASSESSMENT COMPLETED, NO NEEDS OR CONCERNS VOICED.
--- NOTE | 2019-05-15 19:05 | NUR ---
SHIFT REPORT RECEIVED FROM DAYSHIFT GRAYSON FIORE AT BEDSIDE. PT AWAKE AND RESTING IN BED. APPEARS IN GOOD SPIRITS, DENIES NEEDS. CALL LIGHT IN REACH.
--- NOTE | 2019-05-15 21:17 | NUR ---
HELPED PT TO THE BATHROOM WITH HER FWW. SHE WILL CALL WHEN SHE IS DONE.
--- NOTE | 2019-05-15 22:00 | NUR ---
ASSESSMENT COMPLETE, SCHEDULED MEDS GIVEN (SEE EMAR). FENTANYL PATCH DATED AND PLACED TO RIGHT SHOULDER. PRN SEROQUEL ALSO GIVEN PER PT REQUEST. IV SITE WNL, FLUSHED WITH 5-10MLS NORMAL SALINE. PT A/O AT THIS TIME, VSS. WILL MONITOR FOR CHANGES. GENERALIZED +1 EDEMA TO BILATERAL LOWER EXTREMITIES, ELEVATED ON PILLOWS AT THIS TIME. NO FURTHER NEEDS.
--- NOTE | 2019-05-15 22:36 | NUR ---
IN ROOM TO ASSIST PT WITH TELEVISION. NO FURTHER NEEDS, CALL LIGHT IN REACH.
--- NOTE | 2019-05-15 23:26 | NUR ---
PT RESTING IN BED, CURTAIN AND DOOR CLOSED PER PT REQUEST. NO FURTHER NEEDS, CALL LIGHT IN REACH.
--- NOTE | 2019-05-16 01:53 | NUR ---
PT CALLED FOR ASSISTANCE TO THE RESTROOM. SBA WITH FWW AND SHE IS BACK IN BED. SHE HAS LOOSE STOOL. SHE DENIES FURTHER NEEDS AT THIS TIME. CALL LIGHT IS WITHIN REACH.
--- NOTE | 2019-05-16 02:10 | NUR ---
ASSESSMENT COMPLETE, NO NEW CHANGES OR CONCERNS. PT IN GOOD SPIRITS, DENIES PAIN OR NEEDS. MOTTLING IN KNEES IMPROVED AT THIS TIME, BLE ELEVATED WITH PILLOW. +1 EDEMA IN BLE NOTED, WILL MONITOR. DISCUSSED WITH PT IMPORTANCE TO MAINTAIN ORAL INTAKE PT IS SALINE LOCKED, PT VERBALIED UNDERSTANDING. NO FURTHER NEEDS, CALL LIGHT IN REACH.
--- NOTE | 2019-05-16 03:50 | NUR ---
PT UP SBA WITH FWW TO VOID. 350MLS OUTPUT, PT RETURNED BACK TO BED. NO FURTHER NEEDS, CALL LIGHT IN REACH.
--- NOTE | 2019-05-16 05:38 | NUR ---
SCHEDULED THYROID MEDICATION GIVEN (SEE EMAR). NO FURTHER NEEDS, CALL LIGHT IN REACH.
--- NOTE | 2019-05-16 05:39 | NUR ---
PT HAD A GOOD NIGHT, SLEPT FOR MOST OF SHIFT. VSS, PT ON RA. USES CALL LIGHT APPROPERIATELY. PAIN CONTROLLED WITH FENTANYL PATCH AND SELF REPOSITIOING. NO NAUSEA, BOWEL TONES ACTIVE. PT HAD MULTIPLE LOOSE STOOLS THIS SHIFT. SALINE LOCKED, SITE WNL. BLE ELEVATED ON PILLOWS FOR EDEMA.
--- NOTE | 2019-05-16 05:42 | NUR ---
HELPED PT TO THE BATHROOM AND BACK TO BED WITH HER FWW. FRESH ICE WATER GIVEN. TWO WARM BLANKETS GIVEN WELL. BEDSIDE TABLE AND CALL LIGHT IN REACH.
--- NOTE | 2019-05-16 07:06 | NUR ---
HELPED PT FROM THE BATHROOM BACK TO HER BED WITH HER FWW. BEDSIDE TABLE AND CALL LIGHT IN REACH. PT NEEDS NOTHING MORE AT THIS TIME.
--- NOTE | 2019-05-16 07:23 | NUR ---
Pt in bed at this time, A&OX3. Pt reports she slepts well. Personal supplies and call light within reach. No needs.
[2019-05-16] MEDS ORDERED: AMOX TR-K CLV1 EACH PO (09:44)
[2019-05-16] MEDS ORDERED: PRINIVIL5 MG PO (09:45)
[2019-05-16] MEDS ORDERED: AMLODIPINE BESY10 MG PO (09:45)
[2019-05-16] MEDS ORDERED: PROBIOTIC1 EAC3 PO (09:46)
--- NOTE | 2019-05-16 10:46 | NUR ---
Pt's daughter in room requesting to have IV removed from pt immediately so she can take her home. Daughter states to this RN she has concerns related to her own safety, as she states she had "problems with security yesterday in [facility]". This RN left room and had charge preparation technician, Paty and supervisor offset plate preparation come in to room and speak with daughter regarding her concerns. Pt denies needs at this time.
== END 2019-05-16 11:00 | disposition home or self-care (01) | DRG 177 ==
LOC: ED 14:43 → CCU 14:45 → ED 16:14 → CCU 16:14 → MS 05-14 16:32 → CCU 05-14 16:32 → MS 05-15 11:10 → CCU 05-15 11:10 → MS 05-16 11:00
PROVIDERS: ADMIT Internal Medicine
DX: J69.0 Pneumonitis due to inhalation of food and vomit (principal); G93.41 Metabolic encephalopathy; N17.9 Acute kidney failure, unspecified; F11.20 Opioid dependence, uncomplicated; G89.4 Chronic pain syndrome; J18.8 Other pneumonia, unspecified organism; I25.10 Atherosclerotic heart disease of native coronary artery without angina pectoris; I65.29 Occlusion and stenosis of unspecified carotid artery; E78.5 Hyperlipidemia, unspecified; E03.9 Hypothyroidism, unspecified; E11.9 Type 2 diabetes mellitus without complications; K21.9 Gastro-esophageal reflux disease without esophagitis; M54.9 Dorsalgia, unspecified; K52.9 Noninfective gastroenteritis and colitis, unspecified; Z79.899 Other long term (current) drug therapy; Z79.84 Long term (current) use of oral hypoglycemic drugs; Z95.1 Presence of aortocoronary bypass graft; Z88.8 Allergy status to other drugs, medicaments and biological substances; Z79.82 Long term (current) use of aspirin
CPT/HCPCS: 36415; 70450; 71045; 80048; 80053; 81001; 82550; 83605; 83735; 84100; 84443; 84484; 85025; 85651; 86140; 87502; 90662; 96360; 96361; 97116; 97162; 97165; 99285-25; C9113; J1650; J1815; J2060; J2543; J3475; J7030; J7060; J7121

== ENCOUNTER 2019-10-27 20:47 | Observation (INO) | payer MEDICARE, OTHER ==
[~2019-10-27] VITALS: Ht 160 cm; Wt 56.1 kg
--- OUTSIDE RECORDS SUMMARY | ~2019-10-27 | XMS | Encounter Summary ---
Demographics + + + | Address | [address] | | | [place] [address] | + + + | Home Phone | | + + + | Preferred Language | Unknown | + + + | Marital Status | | + + + | Oriental Orthodox Affiliation | 1041 | + + + | Race | Unknown | + + + | Ethnic Group | Unknown | + + + Author + + + | Author | [facility] | | | and [place] | + + + | Organization | [facility] | | | and [place] | + + + | Address | Unknown | + + + | Phone | Unavailable | + + + Support + + + + + | Name | Relationship | Address | Phone | + + + + + | Lucy Winchester | ECON | [place], | | | | | [place] [address] | | + + + + + | Kellen Briones | ECON | [place], [place] | | | | | [address] | | + + + + + Care Team Providers + +------+ + | Care Cyber Ops Planner Name | Role | Phone | + +------+ + | Anna De Guzman PA-C | PCP | | + +------+ + Reason for Visit Auth/Cert +--------+--------+ + + + + | Status | Reason | Specialty | Diagnoses / | Referred By | Referred To | | | | | Procedures | Contact | Contact | +--------+--------+ + + + + | | | | Diagnoses | | | | | | | | | | | | | | Spondylolist | | | | | | | hesis of | | | | | | | cervical | | | | | | | region | | | | | | | Spondylolist | | | | | | | hesis of | | | | | | | cervical | | | | | | | region | | | | | | | [M43.12] | | | | | | | Procedures | | | | | | | AR | | | | | | | ARTHRODESIS | | | | | | | ANT | | | | | | | INTERBODY | | | | | | | INC | | | | | | | DISCECTOMY, | | | | | | | CERVICAL | | | | | | | BELOW C2 | | | | | | | FUSION | | | | | | | CERVICAL | | | | | | | ANTERIOR W/ | | | | | | | PLATING | | | +--------+--------+ + + + + Encounter Details +--------+---------+ + + + | Date | Type | Department | Care Team | Description | +--------+---------+ + + + | 03/30/ | Surgery | [facility] | Irving Becerril, | C3-4, C4-5, C5-6, | | 2016 | | MED CTR OR [facility] OP | DO [address] | C6-7 Anterior | | | | [address] | [address] [place], [place] | Cervical Discectomy | | | | [place], [place] | [address] | w/ Fusion and | | | | [address] | | Plating | | | | [phone] | | | +--------+---------+ + + + Social History + +-------+ +--------+------+ | Tobacco Use | Types | Packs/Day | Years | Date | | | | | Used | | + +-------+ +--------+------+ | Never Smoker | | | | | + +-------+ +--------+------+ + +---+---+---+ | Smokeless Tobacco: | | | | | Never Used | | | | + +---+---+---+ + + +---------+ + | Alcohol Use | Drinks/Week | oz/Week | Comments | + + +---------+ + | Yes | 2 Glasses of wine | 2.0 | occasional glass of | | | | | wine | + + +---------+ + + + + | Sex Assigned at | Date Recorded | | | | + + + | Not on file | | + + + + + + + | Job Start Date | Occupation | Industry | + + + + | Not on file | Not on file | Not on file | + + + + + + + + | Travel History | Travel Start | Travel End | + + + + + + | No recent travel history available. | + + documented as of this encounter Last Filed Vital Signs + + + + + | Vital Sign | Reading | Time Taken | Comments | + + + + + | Blood Pressure | 140/68 | 03/31/2016 7:33 AM | | | | | PDT | | + + + + + | Pulse | 64 | 03/31/2016 9:35 AM | | | | | PDT | | + + + + + | Temperature | 36.8 C (98.2 F) | 03/31/2016 7:33 AM | | | | | PDT | | + + + + + | Respiratory Rate | 16 | 03/31/2016 7:33 AM | | | | | PDT | | + + + + + | Oxygen Saturation | 94% | 03/31/2016 9:35 AM | | | | | PDT | | + + + + + | Inhaled Oxygen | - | - | | | Concentration | | | | + + + + + | Weight | 69.4 kg (153 lb) | 03/30/2016 12:11 PM | | | | | PDT | | + + + + + | Height | 160 cm (5' 3") | 03/30/2016 12:11 PM | | | | | PDT | | + + + + + | Body Mass Index | 27.1 | 03/30/2016 12:11 PM | | | | | PDT | | + + + + + documented in this encounter Discharge Summaries Chavo Jacob PA - 03/31/2016 7:59 AM PDTFormatting of this note might be different f rom the original. DISCHARGE SUMMARY Pt. Name/Age/: Clementine Winchester 75 y.o. 1940 Date of Admission: 03/30/2016 Date of Discharge: 03/31/2016 Admitting Physician: Irving Becerril DO PCP: Anna De Guzman Discharging Physician: NARESH Valverde Primary Discharge Dx: <principal problem not specified> Secondary Discharge Dx: Patient Active Problem List Diagnosis Cervical stenosis of spinal canal Spondylolisthesis of cervical region Arthritis Leg pain, bilateral Lumbago Trochanteric bursitis of right hip Right hip pain Stroke of unknown etiology Coronary artery disease Diabetes mellitus - ORAL Control Hypertension Stroke Syncope and collapse Cancer Hyperlipidemia NC (myocardial infarction) GERD (gastroesophageal reflux disease) Asthma Spondylolisthesis of lumbar region Lumbar radiculopathy DDD (degenerative disc disease), lumbar Spinal stenosis of lumbar region with myamejaaituca-V3-K1 level moderately severe Facet arthritis of lumbar region-Most severe at L4-L5,L5-S1 Snoring Chronic narcotic use Neck pain on right side Facet arthritis of cervical region DDD (degenerative disc disease), cervical H/O Syncope & collape H/O CVA/stroke H/O NC (myocardial infarction) H/O Breast cancer - Right Oxygen dependent - 2 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 Adverse effect of anesthesia - trouble urinating after anesthesia H/O Hysterectomy H/O CABG (coronary artery bypass graft) H/O Hypokalemia (taking diuretics) Reason for Admission (Brief): THE PROCEDURE: Mrs. Winchester is a 75-year-old woman, who presen rachel with signs and symptoms and radiographic evidence of cervical stenosis - upper extremity radiculopathy and neck pain. She failed conservative treatment and symptoms continued to pr ogress. MRI and x-rays of the cervical spine demonstrated kyphosis, spondylolisthesis, spond ylosis, and stenosis C3-C7. Given the progression of her symptoms, she decided to proceed wi th anterior cervical fusion C3-7. Hospital Course, including Complications: On the day of admission the patient was admitted to [facility] and underwent a C3-C7 fusion. Patient was transferred to PACU and then to the neurosurgical floor. In brief, the hospital stay was uncomplicated, the patient mobilized well with physical therapy and occup ational therapy. There were no cardiac issues, pulmonary issues, evidence of DVT or infecti on. Appropriate discharge plans were made in line with her progress and mobility and she was ultimately discharged to home. Medications Reconciled upon Discharge are: Discharge Medications New Medications Details HYDROcodone-acetaminophen 10-325 mg per tablet Take 1-2 tablets by mouth every 4 hours as needed for Pain. aka: NORCO lactulose 10 g/15 mL solution Take 30 mLs by mouth 2 times daily. For constipation methocarbamol 750 mg tablet Take 1-2 tablets by mouth every 6 hours as needed for Muscle spasms. aka: methocarbamol Unchanged Medications Details amLODIPine 5 mg tablet Take 5 mg by mouth Daily. aka: NORVASC benzonatate 200 MG capsule Take 200 mg by mouth 3 times daily as needed. aka: TESSALON buPROPion 150 mg 12 hr tablet Take 150 mg by mouth Daily. aka: WELLBUTRIN SR calcium acetate 667 mg capsule Take 1,334 mg by mouth 3 times daily (with meals). aka: PHOSLO citalopram 20 mg tablet Take 20 mg by mouth Daily. aka: celeXA cyclobenzaprine 5 MG tablet Take 5 mg by mouth 3 times daily as needed. aka: FLEXERIL fentaNYL 50 mcg/hr Place 1 patch onto the skin every 72 hours. aka: DURAGESIC ferrous sulfate 300 mg/5 mL syrup Take 300 mg by mouth Daily. furosemide 20 mg tablet Take 20 mg by mouth Daily. aka: LASIX gabapentin 300 mg capsule Take 900 mg by mouth 3 times daily. aka: NEURONTIN hydroCHLOROthiazide 12.5 MG tablet TK 1 T PO ONCE D aka: HYDRODIURIL metFORMIN 500 mg tablet Take 500 mg by mouth nightly. aka: GLUCOPHAGE nitroglycerin 0.[address] 0.4 mg under the tongue every 5 minutes as needed. aka: NITROSTAT omeprazole 20 mg capsule Take 40 mg by mouth every morning (before breakfast). aka: priLOSEC simvastatin 20 mg tablet Take 20 mg by mouth nightly. aka: ZOCOR simvastatin 40 mg tablet TK 1 T PO ONCE D aka: ZOCOR vitamin C 1000 MG tablet Take 1,000 mg by mouth Daily. Discontinued Medications aspirin 325 mg tablet Condition on Discharge: Stable Disposition: Patient was discharged to home Follow-Up Plans: Follow-up with: Dr. Becerril's office in 4 weeks Follow-up with primary care physician as needed. Diet: Resume regular diet Activity: Continue to follow guidelines and precautions as previously discussed. Jama: Jose Electronically signed by: Chavo Jacob, 03/31/2016 7:59 [facility] documented in this encounter Discharge Instructions Instructions Merle Ricci, SHEET ROCK TAPER - 03/31/2016Discharge Instructions for Cervical Fusion You had a cervical fusion. During this procedure, your doctor lockedtogether (fused) some of the bones in the curve of your neck. This limits the movement of these bones to help rel ieve your pain. Here s what you need to know about home care following a cervical fusion. Activity Arrange your household to keep the items you need within reach. Remove electrical cords, throw rugs,and anything else that may cause you to fall. Follow your doctor s instructions for wearing acervical collar or brace. The neck co llar or brace is important because it supports and correctly positions your neck after surge ry. Be sure to follow instructions for its care, use, and the length of time you must wear i t. Don t raise your hands over your head [id number])after your surgery. Don t drive until your doctor says it s OK. This will most likely be when you can mo ve your neck from side to side freely and without pain. Never drive while you are taking opi oid pain medication. Walk as much as possible. You may also go up and down stairs as much as you can tolerate . Walking outside or walking on a treadmill at a slow speed with no incline is OK. Don t lift anything heavier than5 pounds. Ask your doctor when you can return to work. Other home care Take your medication exactly as directed. Talk to your doctor about pain medication. Don t take nonsteroidal, anti-inflammatory medications (NSAIDs),such as ibuprofen un less your doctor approves. They may delay or prevent proper fusion of bone. As long as you keep your incision dry you may shower as desired after your surgery. You may allow shower water to run over the incision and get it wet after 5 days, but do not subm erse the incision under water until after you see your provider at your 1 month post op visi t. You may be instructed to use a neck collar while you shower. If so, carefully remove it when you finish showering. Then keep your neck correctly positioned as you gently pat dry y our skin, the incision, and the neck collar. Then put the neck collar back on. Don t soak in bathtubs, hot tubs, or swimming pools until instructed by your doctor. Your incision mayhave beenclosed using sutures, hermann, or strips of tape. You can allow strips of tape to fall off on their own. Don t rub the incision, or apply creams or lotions onit. If you smoke, quit. Smoking slows healing of bone. Enroll in a stop-smoking program to i mprove your chances of success. Follow-up Most patients will have a 4 week follow up appointment. Please get your 1 month post op x-rays prior to this your 1 month post op appointment. [phone] [employer]. [address] [place] [address]. All righ ts reserved. This information is not intended as a substitute for professional medical care. Always follow your healthcare professional's instructions. If you would like Home Health: Call [facility] at [phone] documented in this encounter Medications at Time of Discharge + + + +---------+ + + | Medication | Sig | Dispensed | Refills | Start | End Date | | | | | | Date | | + + + +---------+ + + | metFORMIN | Take 500 mg by mouth | | 0 | | | | (GLUCOPHAGE) 500 mg | nightly. | | | | | | tablet | | | | | | + + + +---------+ + + | nitroglycerin | Place 0.4 mg under | | 0 | | | | (NITROSTAT) 0.4 mg | the tongue every 5 | | | | | | SL tablet | minutes as needed. | | | | | + + + +---------+ + + | amLODIPine | Take 5 mg by mouth | | 0 | | | | (NORVASC) 5 mg | Daily. | | | | 8 | | tablet | | | | | | + + + +---------+ + + | Ascorbic Acid | Take 1,000 mg by | | 0 | | | | (VITAMIN C) 1000 MG | mouth Daily. | | | | 7 | | tablet | | | | | | + + + +---------+ + + | benzonatate | Take 200 mg by mouth | | 0 | | | | (TESSALON) 200 MG | as needed. | | | | 0 | | capsule | | | | | | + + + +---------+ + + | buPROPion | Take 150 mg by mouth | | 0 | | | | (WELLBUTRIN SR) 150 | Daily. | | | | 8 | | mg 12 hr tablet | | | | | | + + + +---------+ + + | calcium acetate | Take 1,334 mg by | | 0 | | | | (PHOSLO) 667 mg | mouth 3 times daily | | | | 7 | | capsule | (with meals). | | | | | + + + +---------+ + + | citalopram | Take 20 mg by mouth | | 0 | | | | (CELEXA) 20 mg | Daily. | | | | 8 | | tablet | | | | | | + + + +---------+ + + | cyclobenzaprine | Take 5 mg by mouth 3 | | 0 | | | | (FLEXERIL) 5 MG | times daily as | | | | 7 | | tablet | needed. | | | | | + + + +---------+ + + | fentaNYL | Place 1 patch onto | 10 | 0 | 03/31/20 | | | (DURAGESIC) 50 | the skin every 72 | patch | | 16 | 7 | | mcg/hr | hours. | | | | | + + + +---------+ + + | fentaNYL | Place 1 patch onto | | 0 | | | | (DURAGESIC) 50 | the skin every 72 | | | | 8 | | mcg/hr | hours. | | | | | + + + +---------+ + + | ferrous sulfate | Take 300 mg by mouth | | 0 | | | | 300 mg/5 mL syrup | Daily. | | | | 8 | + + + +---------+ + + | furosemide (LASIX) | Take 20 mg by mouth | | 0 | | | | 20 mg tablet | Daily. | | | | 8 | + + + +---------+ + + | gabapentin | Take 900 mg by mouth | | 0 | | | | (NEURONTIN) 300 mg | 3 times daily. | | | | 8 | | capsule | | | | | | + + + +---------+ + + | | TK 1 T PO ONCE D | | 0 | 03/12/20 | | | hydroCHLOROthiazide | | | | 16 | 8 | | (HYDRODIURIL) 12.5 | | | | | | | MG tablet | | | | | | + + + +---------+ + + | | Take 1-2 tablets by | 120 | 0 | 03/31/20 | | | HYDROcodone-acetamin | mouth every 4 hours | tablet | | 16 | 6 | | ophen (NORCO) 10-325 | as needed for Pain. | | | | | | mg per tablet | | | | | | + + + +---------+ + + | lactulose 10 g/15 | Take 30 mLs by mouth | 240 mL | 2 | 03/31/20 | | | mL solution | 2 times daily. For | | | 16 | 7 | | | constipation | | | | | + + + +---------+ + + | methocarbamol | Take 1-2 tablets by | 90 | 3 | 03/31/20 | | | (METHOCARBAMOL) 750 | mouth every 6 hours | tablet | | 16 | 6 | | mg tablet | as needed for Muscle | | | | | | | spasms. | | | | | + + + +---------+ + + | omeprazole | Take 40 mg by mouth | | 0 | | | | (PRILOSEC) 20 mg | every morning | | | | 8 | | capsule | (before breakfast). | | | | | + + + +---------+ + + | simvastatin | Take 20 mg by mouth | | 0 | | | | (ZOCOR) 20 mg tablet | nightly. | | | | 7 | + + + +---------+ + + | simvastatin | TK 1 T PO ONCE D | | 9 | 03/12/20 | | | (ZOCOR) 40 mg tablet | | | | 16 | 8 | + + + +---------+ + + documented as of this encounter Progress Notes Chavo Jacob PA - 03/31/2016 7:48 AM PDTFormatting of this note might be different f rom the original. [facility] PROGRESS NOTE Pt. Name/Age/: Clementine Winchester 75 y.o. 1940 Post operative day 1 SUBJECTIVE: Patient is doing very well at this time. She feels the pain her arms are much b michele now than they were before surgery. Her pain is well controlled and she would like to g o home today. OBJECTIVE: Patient Vitals for the past 24 hrs: BP Temp Temp src Pulse Resp SpO2 Height Weight 03/31/16 0733 140/68 mmHg 36.8 C (98.2 F) Oral 73 16 97 % - - 03/31/16 0517 123/61 mmHg 35.5 C (95.9 F) Oral 60 16 95 % - - 03/31/16 0025 143/77 mmHg 36.3 C (97.3 F) Oral 77 16 96 % - - 03/30/162007 170/70 mmHg 36.7 C (98.1 F) Oral 74 16 95 % - - 03/30/16 1855 162/73 mmHg - - 72 16 95 % - - 03/30/16 1840 170/74 mmHg - - - - - - - 03/30/16 1825 170/74 mmHg - - 74 16 95 % - - 03/30/16 1801 (!) 190/98 mmHg 36.5 C (97.7 F) - 71 14 95 % - - 03/30/16 1725 181/73 mmHg - - 72 - - - - 03/30/16 1715 173/67 mmHg - - 73 10 95 % - - 03/30/16 1712 182/78 mmHg - - 74 - - - - 03/30/16 1703 188/75 mmHg - - 80 - - - - 03/30/16 1700 188/75 mmHg - - 82 12 96 % - - 03/30/16 1655 (!) 197/92 mmHg - - 105 - - - - 03/30/16 1647 192/85 mmHg - - 107 14 96 % - - 03/30/161645 - - - 105 13 96 % - - 03/30/16 1645 - - - 105 12 96 % - - 03/30/161643 - - - 104 - 96 % - - 03/30/161642 - - - 104 (!) 7 96 % - - 03/30/161641 - - - 104 9 95 % - - 03/30/16 1641 (!) 179/93 mmHg - - 103 10 96 % - - 03/30/16 1640 - - - 104 11 95 % - - 03/30/16 1639 - - - 104 11 95 % - - 03/30/16 1638 - - - 106 17 96 % - - 03/30/16 1637 (!) 150/93 mmHg - - 107 20 95 % - - 03/30/16 1636 - - - 105 12 - - - 03/30/16 1635 - - - 103 10 96 % - - 03/30/16 1634 (!) 189/97 mmHg - - 107 9 94 % - - 03/30/16 1633 - - - 107 - 91 % - - 03/30/16 1632 (!) 189/97 mmHg 36.5 C (97.7 F) - 108 12 94 % - - 03/30/16 1211 - - - - - - 1.6 m (5' 3") 69.4 kg (153 lb) I/O last 24 Hours: In: 2185 [P.O.:350; I.V.:1677; IV Piggyback:158] Out: 2340 [Urine:2175; Other:65; Blood:100] Min/Max Temp past 24 hours:Temp Av.4 C (97.5 F) Min: 35.5 C (95.9 F) Max: 3 6.8 C (98.2 F) General: Alert, oriented, no acute distress Dressing: Clean/Dry/Intact Neurological: normal DRAIN OUTPUT: 65 CCs Labs Recent Results (from the past 24 hour(s)) Type and Screen Result Value Ref Range ABO A Rh Type Positive Antibody Screen Negative POC Glucose Result Value Ref Range Glucose, POC 95 70-150 mg/dL POC Glucose Result Value Ref Range Glucose, POC 111 70-150 mg/dL ASSESSMENT:SP C3-C7 fusion Plan: Patient is doing very well. DC home see DC summary. Electronically signed by: Chavo Jacob, 03/31/2016 7:48 [facility] documented in this encounter Plan of Treatment Not on filedocumented as of this encounter Procedures + +--------+ + + + | Procedure Name | Priori | Date/Time | Associated Diagnosis | Comments | | | ty | | | | + +--------+ + + + | RESPIRATORY THERAPY | Routin | 03/30/2016 | | | | COMMUNICATION | e | 6:05 PM | | | | | | PDT | | | + +--------+ + + + | XR CERVICAL SPINE 2 | STAT | 03/30/2016 | | Results for this | | OR 3 VIEWS | | 5:38 PM | | procedure are in the | | | | PDT | | results section. | + +--------+ + + + | POC GLUCOSE | Routin | 03/30/2016 | | Results for this | | | e | 4:38 PM | | procedure are in the | | | | PDT | | results section. | + +--------+ + + + | FL ESTELITA STATS NO | Routin | 03/30/2016 | | Results for this | | CHARGE | e | 4:25 PM | | procedure are in the | | | | PDT | | results section. | + +--------+ + + + | FUSION CERVICAL | | 03/30/2016 | Spondylolisthesis | | | ANTERIOR W/ PLATING | | 1:32 PM | of cervical region | | | | | PDT | | | + +--------+ + + + +---+--------+ | | Case | | | Notes | | | | | | Origin | | | al | | | Schedu | | | ler | | | Commen | | | ts/Not | | | es | | | Sent | | | Over | | | 02/12/ | | | 2015 @ | | | | | | 1425:C | | | -Arm, | | | Drill, | | | | | | Micros | | | cope | | | Est | | | time: | | | 3HBiol | | | ogics: | | | | | | Grafto | | | n | | | Table: | | | | | | Skytro | | | n | +---+--------+ | | | | | Specia | | | l | | | Needs | | | Ludwin | | | | | | Shakeel | | | - | | | Atlant | | | is | | | Transi | | | tional | | | , Bone | | | | | | Spacer | +---+--------+ + +--------+ +---+ + | POC GLUCOSE | Routin | 03/30/2016 | | Results for this | | | e | 11:59 AM | | procedure are in the | | | | PDT | | results section. | + +--------+ +---+ + | TYPE AND SCREEN | Routin | 03/30/2016 | | Results for this | | | e | 11:51 AM | | procedure are in the | | | | PDT | | results section. | + +--------+ +---+ + | IMAGING REPORT - | | 02/20/2016 | | Results for this | | EXTERNAL SCAN | | 12:00 AM | | procedure are in the | | | | PDT | | results section. | + +--------+ +---+ + | LABS - EXTERNAL SCAN | | 02/20/2016 | | Results for this | | | | 12:00 AM | | procedure are in the | | | | PDT | | results section. | + +--------+ +---+ + | ECG - EXTERNAL SCAN | | 01/21/2016 | | Results for this | | | | 12:00 AM | | procedure are in the | | | | PDT | | results section. | + +--------+ +---+ + documented in this encounter Results XR Cervical Spine 2 or 3 Views (03/30/2016 5:38 PM PDT) + + | Specimen | + + | | + + + + + | Narrative | Performed At | + + + | EXAM:XR CERVICAL SPINE 2 OR 3 VIEWS CLINICAL HISTORY: post op | [facility] | | cervical surgery COMPARISON: Preoperative study 02/02/2016 | | | FINDINGS: Frontal and lateral views of the cervical spine. Anterior | | | cervical discectomy and fusion changes from C3 through C7. Intact | | | hardware. In place interbody grafts improving disc spacing and | | | spinal alignment. There are expected operative changes in the | | | precervical soft tissues. A drain catheter is in place. | | | IMPRESSION - No radiographic evidence for an immediate | | | complication. Dictated and Signed by: Santino Jewell MD | | | Electronically signed: 03/31/2016 8:48 AM | | + + + + + | Procedure Note | + + | Howard, Rad Results In - 03/31/2016 8:51 AM PDT EXAM:XR CERVICAL SPINE 2 OR 3 VIEWS | | | | CLINICAL HISTORY: post op cervical surgery | | | | COMPARISON: Preoperative study 02/02/2016 | | | | FINDINGS: Frontal and lateral views of the cervical spine. Anterior cervical | | discectomy and fusion changes from C3 through C7. Intact hardware. In place | | interbody grafts improving disc spacing and spinal alignment. There are | | expected operative changes in the precervical soft tissues. A drain catheter is | | in place. | | | | IMPRESSION - | | | | No radiographic evidence for an immediate complication. | | | | Dictated and Signed by: Santino Jewell MD | | Electronically signed: 03/31/2016 8:48 AM | + + + +---------+ + + | Performing | Address | City/State[facility] | Phone Number | | Organization | | | | + +---------+ + + | [facility] | | | | + +---------+ + + POC Glucose (03/30/2016 4:38 PM PDT) + +-------+ + + + | Component | Value | Ref Range | Performed | Pathologist | | | | | At | Signature | + +-------+ + + + | Glucose, | 111 | 70 - 150 mg/dL | [facility] | | | [facility] | | | [facility] | | | | | | [facility] | | | | | | CENTER - | | | | | | LABORATORY | | + +-------+ + + + + + | Specimen | + + | Blood | + + + + + + + | Performing | Address | City/State/Zipcode | Phone Number | | Organization | | | | + + + + + | [facility] | [address] | [place] | [phone] | | [facility] | | [address] | | | - LABORATORY | | | | + + + + + [place] DarnellHiram Booth No Charge (03/30/2016 4:25 PM PDT) + + | Specimen | + + | | + + + + + | Narrative | Performed At | + + + | No Radiologist interpretation, please see Chart Review. | [facility] | + + + + +---------+ + + | Performing | Address | City/State/Zipcode | Phone Number | | Organization | | | | + +---------+ + + | [facility] | | | | + +---------+ + + POC Glucose (03/30/2016 11:59 AM PDT) + +-------+ + + + | Component | Value | Ref Range | Performed | Pathologist | | | | | At | Signature | + +-------+ + + + | Glucose, | 95 | 70 - 150 mg/dL | [facility] | [facility] | | | | | | [facility] | | | | | | C[facility] - | | | | | | LABORATORY | | + +-------+ + + + + + | Specimen | + + | Blood | + + + + + + + | Performing | Address | City/State/Zipcode | Phone Number | | Organization | | | | + + + + + | [facility] | [address] | [place] | [phone] | | [facility] | | [address] | | | - LABORATORY | | | | + + + + + Type and Screen (03/30/2016 11:51 AM PDT) + + + + + + | Component | Value | Ref Range | Performed | Pathologist | | | | | At | Signature | + + + + + + | ABO | A | | [facility] | | | | | | [facility] | | | | | | [facility] | | | | | | CENTER - | | | | | | BLOOD BANK | | + + + + + + | Rh Type | Positive | | [facility] | | | | | [facility] | | | | | | MEDICAL | | | | | | CENTER - | | | | | | BLOOD BANK | | + + + + + + | Antibody | Negative | | [facility] | | | Screen | | | [facility] | | | | | | MEDICAL | | | | | | CENTER - | | | | | | BLOOD BANK | | + + + + + + + + | Specimen | + + | Blood specimen | | (specimen) | + + + + + + + | Performing | Address | City/State/Zipcode | Phone Number | | Organization | | | | + + + + + | [facility] | [address] | [place] | | | [facility] | | [address] | | | - BLOOD BANK | | | | + + + + + LABS - EXTERNAL SCAN (02/20/2016 12:00 AM PDT) + + + | Narrative | Performed At | + + + | Ordered by an | | | unspecified provider. | | + + + IMAGING REPORT - EXTERNAL SCAN (02/20/2016 12:00 AM PDT) + + + | Narrative | Performed At | + + + | Ordered by an | | | unspecified provider. | | + + + ECG - EXTERNAL SCAN (01/21/2016 12:00 AM PDT) + + + | Narrative | Performed At | + + + | Ordered by an | | | unspecified provider. | | + + + documented in this encounter Visit Diagnoses + + | Diagnosis | + + | Spondylolisthesis of cervical region Acquired spondylolisthesis | + + documented in this encounter
--- OUTSIDE RECORDS SUMMARY | ~2019-10-27 | XMS | Encounter Summary ---
Demographics + + + | Address | [address] | | | [place] [address] | + + + | Home Phone | | + + + | Preferred Language | Unknown | + + + | Marital Status | | + + + | Anglican Affiliation | 1041 | + + + | Race | Unknown | + + + | Ethnic Group | Unknown | + + + Author + + + | Author | [facility] | | | and [place] | + + + | Organization | [facility] | | | and [place] | + + + | Address | Unknown | + + + | Phone | Unavailable | + + + Support + + + + + | Name | Relationship | Address | Phone | + + + + + | Lucy Winchester | ECON | [place], | | | | | [place] [address] | | + + + + + | Kellen Briones | ECON | [place], [place] | | | | | [address] | | + + + + + Care Team Providers + +------+ + | Care Yarn Packer Name | Role | Phone | + +------+ + | Anna De Guzman PA-C | PCP | | + +------+ + Reason for Visit +--------+ + | Reason | Comments | +--------+ + | Other | Return to work | +--------+ + Encounter Details +--------+ + + + + | Date | Type | Department | Care Team | Description | +--------+ + + + + | 04/13/ | Telephone | [facility] | Irving Becerril, | Other (Return to | | 2015 | | NEUROSURGERY [address] | DO [address] | work ) | | | | [facility] [address] | [address] [place], [place] | | | | | [place], [place] | [phone] | | | | | [address] | | | | | | [phone] | | | +--------+ + + + + Social History + +-------+ [...] + + documented as of this encounter Plan of Treatment Not on filedocumented as of this encounter Visit Diagnoses Not on filedocumented in this encounter"
--- OUTSIDE RECORDS SUMMARY | ~2019-10-27 | XMS | Encounter Summary ---
Demographics + + + | Address | [address] | | | [place] [address] | + + + | Home Phone | | + + + | Preferred Language | Unknown | + + + | Marital Status | | + + + | Cheondoism Affiliation | [id number] | + + + | Race | Unknown | + + + | Ethnic Group | Unknown | + + + Author + + + | Author | [facility] | | | and [place] | + + + | Organization | [facility] | | | and [place] | + + + | Address | Unknown | + + + | Phone | Unavailable | + + + Support + + + + + | Name | Relationship | Address | Phone | + + + + + | Lucy Winchester | ECON | [place], | | | | | [place] [address] | | + + + + + | Kellen Briones | ECON | [place], [place] | | | | | [address] | | + + + + + Care Team Providers + +------+ + | Care Electrotype Caster Name | Role | Phone | + +------+ + | Anna De Guzman PA-C | PCP | | + +------+ + Reason for Visit + + + | Reason | Comments | + + + | Neck Pain | neck pain | + + + | Numbness | bilateral hands | + + + | Back Pain | Low back pain that radiates down the left leg | + + + Encounter Details +--------+---------+ + + + | Date | Type | Department | Care Team | Description | +--------+---------+ + + + | 08/31/ | Office | [facility] | Tk Ann | Neck pain on right | | 2014 | Visit | PHYSIATRY [address] | side (Primary Dx); | | | | [address] | [address] [place], [place] | Facet arthritis of | | | | [place], [place] | [address] | cervical region; DDD | | | | [address] | | (degenerative disc | | | | [phone] | | disease), cervical; | | | | | | Lumbar | | | | | | radiculopathy; DDD | | | | | | (degenerative disc | | | | | | disease), lumbar; | | | | | | Spinal stenosis of | | | | | | lumbar region with | | | | | | [id number] | | | | | | level moderately | | | | | | severe; Facet | | | | | | arthritis of lumbar | | | | | | region-Most severe | | | | | | at L4-L5,L5-S1; | | | | | | 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 | +--------+---------+ + + + Social History [...] + + +---------+ + | Yes | | | occasional glass of | | | [...] + + + | Blood Pressure | 121/59 | 08/31/2013 1:07 PM | | | | | PDT | | + + + + + | Pulse | 76 | 08/31/2013 1:07 PM | | | | | PDT | | + + + + + | Temperature | - | - | | + + + + + | Respiratory Rate | - | - | | + + + + + | Oxygen Saturation | - | - | | + + + + + | Inhaled Oxygen | - | - | | | Concentration | | | | + + + + + | Weight | 73.9 kg (163 lb) | 08/31/2013 1:07 PM | | | | | PDT | | + + + + + | Height | 158.8 cm (5' 2.5") | 08/31/2013 1:07 PM | | | | | PDT | | + + + + + | Body Mass Index | 29.34 | 08/31/2013 1:07 PM | | | | | PDT | | + + + + + documented in this encounter Patient Instructions Patient Instructions Tk Ann MD - 08/31/2013 1:30 PM PDT Follow-up at the hospital thirty minutes before your scheduled procedure to allow for time to check in. You may eat and drink as usual on the day of the procedure. If you are scheduled for an epidural injection do not take any blood thinning medications f or at least 5-7 days prior to your procedure unless you have been instructed by another phys ician not to discontinue blood thinning medications. If you are having a procedure other than an epidural injection (i.e. facet injection, media l branch block, SI joint injection or other joint injection) it is not absolutely necessary to discontinue blood thinning medications but doing so will decrease the risk of bruising or bleeding. If you have had a prior stroke, DVT or PE or if you are taking blood thinning medication be cause you have atrial fibrillation, a prosthetic cardiac valve replacement or heart stenting do not stop taking your blood thinning medications unless you have permission from your car diologist or primary care provider. All other medications should be taken as usual on the day of the procedure. Common blood thinning medications include: Aspirin (a baby aspirin is o.k.) Ibuprofen (Advil or Motrin) Naproxen (Aleve) Nabumetone (Relafen) Clopidogrel (Plavix) Dipyridamole/ASA (Aggrenox) Warfarin (Coumadin) Dabigatran (Pradaxa) Rivaroxaban (Xarelto) There are many others. If you have questions about your medications and whether or not you should stop any medications please contact our office. If you are having an epidural injection or if you take any medication for relaxation/sedati on on the day of the procedure you must provide a uke driver to take you home. For all procedur es it is recommended that someone else drive you home. documented in this encounter Progress Notes Tk Ann MD - 08/31/2013 1:42 PM PDT Patient ID: Clementine Winchester is a 72 y.o. female. Chief Complaint Patient presents with Neck Pain neck pain Numbness bilateral hands Back Pain Low back pain that radiates down the left leg HPI The patient is being seen today in follow-up for complaints of right sided neck pain. She has been seen for this and low back complaints in the past. The low back and leg pain were significantly improved following epidural steroid injections but that pain is starting to co me back as well. The neck pain is still considered the greatest issue. She did try facet i njections on the right at C4-C5, C5-C6 and C6-C7 and had good relief of her neck pain for a time but then sustained a bad bump on her head and the pain came back. She denies any radic ular symptoms into the arms. She does have some pain in the region of the upper trapezius. The patient's neck symptoms have been a chronic issue. She has had prior imaging that show ed significant degenerative disc disease, especially at C4-C5, C5-C6 and C6-C7. She did dis cuss these issues with Dr. Ramon Real. It is not clear whether or not she was a cand idate for surgery but regardless she is trying to avoid surgery as long as possible. The patient's back symptoms began two and a half years ago when she slipped getting out of the shower. She describes her symptoms as sharp, burning and aching. Her symptoms have been constant. Her symptoms worsen with standing, walking. Her symptoms improve with the use of m edications and when sitting. She denies numbness. She describes weakness in the legs which h ave caused her to have a couple falls. Worse in the right leg than the left. Overall, the b ack and leg issues are still better after the epidural injections but those pains are return ing. She denies bowel and bladder dysfunction. She also denies having saddle anesthesia. Treatments for these complaints have included physical therapy and chiropractics both for t he lower back and the neck. The patient indicates only short term relief from the chiropract ics and increased pain from the physical therapy. She did also receive epidural injections with tn on two occasions. The most recent were in April of 2013. These were bilateral L 5-S1 TFESI. She reports good relief with the injections as above but the pain is returning. MRI of the cervical and lumbar spine were reviewed today in detail with the patient. Current Outpatient Prescriptions Medication Sig Dispense Refill amLODIPine (NORVASC) 5 mg tablet Take 5 mg by mouth Daily. aspirin 325 mg tablet Take 325 mg by mouth Daily. benzonatate (TESSALON) 200 MG capsule Take 200 mg by mouth 3 times daily as needed. buPROPion (WELLBUTRIN SR) 150 mg 12 hr tablet Take 150 mg by mouth Daily. citalopram (CELEXA) 20 mg tablet Take 20 mg by mouth Daily. cyclobenzaprine (FLEXERIL) 5 MG tablet Take 5 mg by mouth 3 times daily as needed. furosemide (LASIX) 20 mg tablet Take 20 mg by mouth Daily. gabapentin (NEURONTIN) 300 mg capsule Take 300 mg by mouth 3 times daily. HYDROcodone-acetaminophen (NORCO) 7.5-325 mg per tablet Take 1-2 tablets by mouth 3 traci es daily. metFORMIN (GLUCOPHAGE) 500 mg tablet Take 500 mg by mouth nightly. nitroglycerin (NITROSTAT) 0.[address] 0.4 mg under the tongue every 5 minute s as needed. omeprazole (PRILOSEC) 20 mg capsule Take 20 mg by mouth every morning (before breakfast ). simvastatin (ZOCOR) 20 mg tablet Take 20 mg by mouth nightly. Allergies Allergen Reactions Tizanidine Hcl Other (See Comments) Pt states it affected her balance and made her feel like she was in a fog. Tape (Adhesive & Tape) Rash Review of Systems: The patient reported only the neck and back issues as in HPI. Physical Exam Blood pressure 121/59, pulse 76, height 1.588 m (5' 2.5"), weight 73.936 kg (163 lb).Body m ass index is 29.32 kg/(m^2). Constitutional: She is oriented to person, place, and time. She appears well-developed and well-nourished. HENT: Head: Normocephalic and atraumatic. Neck: No tracheal deviation present. Cardiovascular: Normal rate and regular rhythm. Pulmonary/Chest: Effort normal and breath sounds normal. No respiratory distress. Lymphadenopathy: She has no cervical adenopathy. Neurological: She is alert and oriented to person, place, and time. She has normal strength . No cranial nerve deficit or sensory deficit. She displays no Babinski's sign on the right side. She displays no Babinski's sign on the left side. Reflex Scores: REFLEX: RIGHT LEFT BICEPS 2+ 2+ BRACHIORADIALIS 2+ 2+ TRICEPS 2+ 2+ PATELLAR 2+ 2+ ACHILLES 1+ 1+ RICE'S Negative Negative PLANTAR Downgoing Downgoing Skin: Skin is warm, dry and intact. No abrasion, no bruising, no ecchymosis, no laceration and no rash noted. Psychiatric: She has a normal mood and affect. Her speech is normal and behavior is normal. Thought content normal. Cognition and memory are normal. Musculoskeletal: Range of motion of the cervical spine was somewhat limited with regard to rotation and lateral bending to the right. These movements also caused discomfort. She wa s quite tender to palpation in the cervical paraspinals and in the right upper trapezius. S purling sign was negative. Strength testing of the upper extremities showed 5 out of 5 stre ngth with no focal weakness. She located the majority of her neck pain to the mid cervical region. Straight leg raise and slump-sit are negative. Westley's maneuver and impingement testing were negative for any groin pain but did cause lateral hip pain. There was tenderness to p alpation over the greater trochanters, especially on the right. She was also mildly tender over the sacral sulci. The patient localized the majority of the low back pain to the L5-S1 region down to the buttocks and into the legs. Lumbar facet loading was somewhat positive. Strength testing showed 5/5 strength throughout the lower extremities. The patient was ab le to heel and toe walk without difficulty. There was no redness, effusion, warmth or joint line tenderness in the knees or ankles. Assessment: 1. Neck pain on right side - this appears to be due to the facet arthritis and there is als o likely a myofascial component 2. Facet arthritis of cervical region 3. DDD (degenerative disc disease), cervical 4. Spondylolisthesis of cervical region 5. Cervical stenosis of spinal canal 6. Lumbar radiculopathy 7. DDD (degenerative disc disease), lumbar 8. Spinal stenosis of lumbar region with [id number] level moderately severe 9. Facet arthritis of lumbar region-Most severe at L4-L5,L5-S1 10. Chronic narcotic use Plan: 1. The patient has tried conservative care including PT, chiropractic and medications but continues to have significant pain. She cannot take NSAIDs because of gastric issues. The n regan issues are currently the greatest problem. I did think that she would be a good jcarlos te for interventional procedures on the cervical spine. Initially I considered trigger point injections given the findings on physical examination it appeared that the pain correlated most with facet pain and therefore I offered cervical facet injections off to the right at C 4-C5, C5-C6 and C6-C7. 2. With regard to her low back, she has had some relief with prior injections and I do feel that the patient would benefit again from interventional procedures. I would again offer bi lateral L5-S1 TFESI but will wait until a few weeks after the cervical injections. 3. The patient is already on multiple medications for pain. I did not make any changes in her medications today. 4. She may be a candidate for surgical management at some point, likely first on the lumba r spine, although she does have medical comorbidities. She has had open heart surgery 3 yea rs ago and would need cardiac clearance. She would also need a DEXA scan prior. She has perez d flexion and extension x-rays of the lumbar spine at [facility]. I previously requested that these be placed on I-site but I still do not see them there. She has previou coleman seen Dr. Real and would want a consult with Dr. Mathew if she decides to pursue surger y. documented in th is encounter Plan of Treatment Not on filedocumented as of this encounter Results FL BAUTISTA Lumbar Transforaminal (10/06/2013 1:35 PM PDT) + + | Specimen | + + | | + + + + + | Narrative | Performed At | + + + | 10/06/13 Bilateral Transforaminal Epidural Steroid Injections | [facility] | | Diagnosis: Lumbar radiculopathy ICD-9 Code 724.4 Ms. Clementine Cortez | [facility] | | Annabella presents to the fluoroscopy suite for fluoroscopically-guided | [facility] | | bilateral L5-S1 transforaminal epidural steroid injections as part | - IMAGING | | of conservative management for chronic pain with lumbar | | | radiculopathy and degenerative disk disease. After informed consent | | | was obtained, the patient lay in the prone position on the | | | fluoroscopy table. The areas were identified under fluoroscopic | | | guidance. The areas were prepped and draped in sterile fashion. A | | | 25-gauge, 1.5-inch needle was inserted into each region and | | | approximately 3 mL of buffered 1% lidocaine was infused. Then, a | | | 22-gauge spinal needle was inserted into the posterior superior | | | transforaminal space bilaterally and advanced into the epidural | | | space under fluoroscopic guidance. Confirmation into the epidural | | | space was obtained with infusion of approximately 1 mL of Omnipaque | | | contrast which showed epidural flow as well as nerve sheath flow. | | | Then, a combination of 2 mL of 1% lidocaine and 2 mL of 6 mg/mL | | | Celestone was infused, divided between the two sides. The patient | | | tolerated the procedure well without complications. Pre- and | | | post-procedure blood pressures were stable. The patient was given | | | verbal as well as written follow-up instructions. Prior to the | | | start of the procedure, the following were performed and/or | | | verified, including correct patient identity, correct site/side marked | | | and visible, agreement on the procedure to be done, correct patient | | | positioning and an accurate procedure consent form. Any safety | | | precautions based on clinical history and/or medication use have | | | been addressed. I personally performed the procedure above. | | | Estimated blood loss: Minimal Complications: None Findings: As | | | expected Anesthesia: Local 1% Lidocaine | | + + + + + | Procedure Note | + + | Tk Ann MD - 10/06/2013 1:43 PM PDT 10/06/13Bilateral Transforaminal | | Epidural Steroid InjectionsDiagnosis: Lumbar radiculopathyICD-9 Code 724.4Ms. Clementine Cortez | | Annabella presents to the fluoroscopy suite for fluoroscopically-guided bilateral L5-S1 | | transforaminal epidural steroid injections as part of conservative management for | | chronic pain with lumbar radiculopathy and degenerative disk disease. After informed | | consent was obtained, the patient lay in the prone position on the fluoroscopy table. | | The areas were identified under fluoroscopic guidance. The areas were prepped and draped | | in sterile fashion. A 25-gauge, 1.5-inch needle was inserted into each region and | | approximately 3 mL of buffered 1% lidocaine was infused. Then, a 22-gauge spinal needle | | was inserted into the posterior superior transforaminal space bilaterally and advanced | | into the epidural space under fluoroscopic guidance. Confirmation into the epidural | | space was obtained with infusion of approximately 1 mL of Omnipaque contrast which | | showed epidural flow as well as nerve sheath flow. Then, a combination of 2 mL of 1% | | lidocaine and 2 mL of 6 mg/mL Celestone was infused, divided between the two sides. The | | patient tolerated the procedure well without complications. Pre- and post-procedure | | blood pressures were stable. The patient was given verbal as well as written follow-up | | instructions. Prior to the start of the procedure, the following were performed and/or | | verified, including correct patient identity, correct site/side marked and visible, | | agreement on the procedure to be done, correct patient positioning and an accurate | | procedure consent form. Any safety precautions based on clinical history and/or | | medication use have been addressed. I personally performed the procedure above.Estimated | | blood loss: MinimalComplications: NoneFindings: As expectedAnesthesia: Local 1% | | Lidocaine | + + + + + + + | Performing | Address | City/State/Zipcode | Phone Number | | Organization | | | | + + + + + | [facility] | [address] | [place] | [phone] | | [facility] | | [address] | | | - IMAGING | | | | + + + + + FL Facet Injection Cervical (09/24/2013 2:09 PM PDT) + + | Specimen | + + | | + + + + + | Narrative | Performed At | + + + | 09/24/13 Cervical Facet Steroid Injections Diagnosis: [facility] | | Cervical Spondylosis ICD-9 Code 721.0 Ms. Clementine Winchester | [facility] | | presents to the fluoroscopy suite for fluoroscopically-guided C4-C5, [facility] | | C5-C6 and C6-C7 facet injections as part of conservative management | - IMAGING | | for chronic pain with cervical spondylosis. After informed consent | | | was obtained, the patient laid in the prone position on the | | | fluoroscopy table. The areas were identified under fluoroscopic | | | guidance. The areas were prepped and draped in sterile fashion. A | | | 25-gauge, 1.5-inch needle was inserted into each region and | | | approximately 3 mL of buffered 1% lidocaine was infused. Then, a | | | 22-gauge spinal needle was inserted into the middle portion of each | | | facet under fluoroscopic guidance. Confirmation into the joint | | | spaces was obtained with infusion of approximately 1 mL of Omnipaque | | | contrast which showed outline of the facet joints. Then, a | | | combination of 2 mL of 1% lidocaine and 2 mL of 40 mg/mL Kenalog was | | | infused divided between the 3 joints. The patient tolerated the | | | procedure well without complications. Pre- and post-procedure blood | | | pressures were stable. The patient was given verbal as well as written | | | follow-up instructions. Prior to the start of the procedure, | | | the following were performed and/or verified, including correct | | | patient identity, correct site/side marked and visible, agreement on | | | the procedure to be done, correct patient positioning and an | | | accurate procedure consent form. Any safety precautions based on | | | clinical history and/or medication use have been addressed. I | | | personally performed the procedure above. Estimated blood loss: | | | Minimal Complications: None Findings: As expected Anesthesia: Local | | | 1% Lidocaine | | + + + + + | Procedure Note | + + | Tk Ann MD - 09/24/2013 2:40 PM PDT 09/24/13ervical Facet Steroid | | InjectionsDiagnosis: Cervical SpondylosisICD-9 Code 721.0Ms. Clementine Winchester presents to | | the fluoroscopy suite for fluoroscopically-guided C4-C5, C5-C6 and C6-C7 facet | | injections as part of conservative management for chronic pain with cervical | | spondylosis. After informed consent was obtained, the patient laid in the prone position | | on the fluoroscopy table. The areas were identified under fluoroscopic guidance. The | | areas were prepped and draped in sterile fashion. A 25-gauge, 1.5-inch needle was | | inserted into each region and approximately 3 mL of buffered 1% lidocaine was infused. | | Then, a 22-gauge spinal needle was inserted into the middle portion of each facet under | | fluoroscopic guidance. Confirmation into the joint spaces was obtained with infusion of | | approximately 1 mL of Omnipaque contrast which showed outline of the facet joints. Then, | | a combination of 2 mL of 1% lidocaine and 2 mL of 40 mg/mL Kenalog was infused divided | | between the 3 joints. The patient tolerated the procedure well without complications. | | Pre- and post-procedure blood pressures were stable. The patient was given verbal as | | well as written follow-up instructions. Prior to the start of the procedure, the | | following were performed and/or verified, including correct patient identity, correct | | site/side marked and visible, agreement on the procedure to be done, correct patient | | positioning and an accurate procedure consent form. Any safety precautions based on | | clinical history and/or medication use have been addressed. I personally performed the | | procedure above.Estimated blood loss: MinimalComplications: NoneFindings: As | | expectedAnesthesia: Local 1% Lidocaine | + + + + + + + | Performing | Address | City/State/Zipcode | Phone Number | | Organization | | | | + + + + + | [facility] | [address] | [place] | [phone] | | [facility] | | [address] | | | - IMAGING | | | | + + + + + documented in this encounter Visit Diagnoses + + | Diagnosis | + + | Neck pain on right side - Primary Cervicalgia | + + | Facet arthritis of cervical region Cervical spondylosis without myelopathy | + + | DDD (degenerative disc disease), cervical Degeneration of cervical intervertebral | | disc | + + | Lumbar radiculopathy Thoracic or lumbosacral neuritis or radiculitis, unspecified | + + | DDD (degenerative disc disease), lumbar Degeneration of lumbar or lumbosacral | | intervertebral disc | + + | Spinal stenosis of lumbar region with pfqzkmkuyiurx-J2-S6 level moderately severe | | Spinal stenosis, lumbar region, without neurogenic claudication | + + | Facet arthritis of lumbar region-Most severe at L4-L5,L5-S1 Lumbosacral spondylosis | | without myelopathy | + + | Spondylolisthesis of lumbar region Acquired spondylolisthesis | + + documented in this encounter
--- OUTSIDE RECORDS SUMMARY | ~2019-10-27 | XMS | Encounter Summary ---
Demographics + + + | Address | [address] | | | [place] [address] | + + + | Home Phone | | + + + | Preferred Language | Unknown | + + + | Marital Status | | + + + | Moravian Affiliation | 1041 | + + + | Race | Unknown | + + + | Ethnic Group | Unknown | + + + Author + + + | Author | [facility] | | | and [place] | + + + | Organization | [facility] | | | and [place] | + + + | Address | Unknown | + + + | Phone | Unavailable | + + + Support + + + + + | Name | Relationship | Address | Phone | + + + + + | Lucy Winchester | ECON | [place], | | | | | [place] [address] | | + + + + + | Kellen Briones | ECON | [place] | | | | | [address] | | + + + + + Care Team Providers + +------+ + | Care Bridge Rigger Name | Role | Phone | + +------+ + | Barb Marte | PCP | | + +------+ + Encounter Details +--------+ + + + + | Date | Type | Department | Care Team | Description | +--------+ + + + + | 01/31/ | Hospital | [facility] | Conversion | Pain | | 2018 | Encounter | CONVERSION [address] | Transaction, | | | | | [address] | Provider Unknown | | | | | [place], [place] | [phone] | | | | | [address] | | | | | | [phone] | | | +--------+ + + + [...] + + documented as of this encounter Medications at Time of Discharge + + + +---------+ + + | Medication | Sig | Dispensed | Refills | Start | End Date | | | | | | Date | | + + + +---------+ + + | albuterol | Take 1 puff by mouth | | 0 | 08/15/20 | | | (VENTOLIN HFA) 90 | as needed. | | | 18 | | | mcg/puff inhaler | | | | | | + + + +---------+ + + | atorvaSTATin | Take 40 mg by mouth | | 0 | 01/29/20 | | | (LIPITOR) 40 mg | nightly. | | | 18 | | | tablet | | | | | | + + + +---------+ + + | levothyroxine | Take 25 mcg by mouth | | 5 | 12/12/19 | | | (SYNTHROID) 25 mcg | Daily. | | | 18 | | | tablet | | | | | | + + + +---------+ + + | magnesium, as | Take 250 mg by mouth | | 0 | | | | oxide, 250 MG tablet | Daily. | | | | | + + [...] + + + +---------+ + + | baclofen | Take 1 tablet by | 60 | 2 | 01/08/20 | | | (LIORESAL) 10 mg | mouth as needed. | tablet | | 18 | 8 | | tablet | | [...] + + + +---------+ + + | raNITIdine | Take 150 mg by mouth | | 0 | 11/19/19 | | | (ZANTAC) 150 mg | 2 times daily. | | | 18 | 9 | | tablet | | | | [...] | + +--------+ + + + | CT HEAD WO CONTRAST | Routin | 01/30/2018 | | Results for this | | | e | 3:52 PM | | procedure are in the | | | | PDT | | results section. | + +--------+ + + + documented in this encounter Results CT Head wo Contrast (01/30/2018 3:52 PM PDT) + + | Specimen | + + | | + + + + + | Narrative | Performed At | + + + | This is a non-reportable procedure without a radiologist report and | | | is used for image storage only | | + + + + + | Procedure Note | + + | Nilay Lawrence Conversion - 01/14/2019 11:42 AM PDT This is a non-reportable procedure | | without a radiologist report and isused for image storage only | + + documented in this encounter Visit Diagnoses + + | Diagnosis | + + | Pain Generalized pain | + + documented in this encounter"
--- OUTSIDE RECORDS SUMMARY | ~2019-10-27 | XMS | Encounter Summary ---
Demographics + + + | Address | [address] | | | [place] [address] | + + + | Home Phone | | + + + | Preferred Language | Unknown | + + + | Marital Status | | + + + | Anabaptist Affiliation | 1041 | + + + [...] [place], | | | | | [place] [address] | | + + + + + | Kellen Briones | ECON | [place], [place] | | | | | [address] | | + + + + + Care Team Providers + +------+ + | Care Target Network Analyst Name | Role | Phone | + +------+ + | Anna De Guzman PA-C | PCP | | + +------+ + Reason for Visit + + + | Reason | Comments | + + + | Appointment | Appointment request | + + + Encounter Details +--------+ + + + + | Date | Type | Department | Care Team | Description | +--------+ + + + + | 12/22/ | Telephone | [facility] | Ramon Real | Appointment | | 2012 | | [address] | [address] | (Appointment | | | | [address] | [address] [place], [place] | request) | | | | [place], [place] | [address] | | | | | [address] | [phone] | | | | | [phone] | | | +--------+ + + + [...]
--- OUTSIDE RECORDS SUMMARY | ~2019-10-27 | XMS | Encounter Summary ---
Demographics + + + | Address | [address] | | | [place] [address] | + + + | Home Phone | | + + + | Preferred Language | Unknown | + + + | Marital Status | | + + + | Yazdanism Affiliation | 1041 | + + + | Race | Unknown | + + + | Ethnic Group | Unknown | + + + Author + + + | Author | [facility] | | | and [place] | + + + | Organization | [facility] | | | and [place] | + + + | Address | Unknown | + + + | Phone | Unavailable | + + + Support + + + + + | Name | Relationship | Address | Phone | + + + + + | Lucy Winchester | ECON | [place], | | | | | [place] [address] | | + + + + + | Kellen Briones | ECON | [place], [place] | | | | | [address] | | + + + + + Care Team Providers + +------+ + | Care Barrel Tester And Drainer Name | Role | Phone | + +------+ + | Anna De Guzman PA-C | PCP | | + +------+ + Encounter Details +--------+ + + + + | Date | Type | Department | Care Team | Description | +--------+ + + + + | 09/30/ | Hospital | [facility] | Brunodathacz, | DDD (degenerative | | 2015 | Encounter | MED CTR XRAY [address] | [address] | disc disease), | | | | [place] | [facility], [address] | lumbar; Spinal | | | | [place] [address] | [place] [address] | stenosis of lumbar | | | | [phone] | [phone] | region with | | | | | | [id number] | | | | | Proof InspectorCandace | level moderately | | | | | [place] | severe; Lumbar | | | | | | radiculopathy; | | | | | | 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 | +--------+ + + + + Social [...] +---------+ + + | Blood Pressure | 139/83 | 09/30/2014 3:07 PM | | | | | PDT | | + +---------+ + + | Pulse | 80 | 09/30/2014 3:07 PM | | | | | PDT [...] + +--------+ + + + | FL EPIDURAL STEROID | Routin | 09/30/2014 | DDD (degenerative | Results for this | | INJECTION LUMBAR | e | 2:55 PM | disc disease), | procedure are in the | | TRANSFORAMINAL | | PDT | lumbar Spinal | results section. | | | | | stenosis of lumbar | | | | | | region with | | | | | | [id number] | | | | | | level moderately | | | | | | severe Lumbar | | | | | | radiculopathy | | | | | | 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 | | + +--------+ + + + documented in this encounter Results FL BAUTISTA Lumbar Transforaminal (09/30/2014 2:55 PM PDT) + + | Specimen | + + | | + + + + + | Narrative | Performed At | + + + | 09/30/2014 Bilateral Transforaminal Epidural Steroid Injections | [facility] | | Diagnosis: Lumbar radiculopathy ICD-9 Code 724.4 Clementine Phoenix | [facility] | | Annabella presents to the fluoroscopy suite for fluoroscopically-guided [facility] | | bilateral L5-S1 transforaminal [...] ST. | [address] | [place] | [phone] | | [facility] | | [address] | | | - IMAGING | | | | + + + + + documented in this encounter Visit Diagnoses + + | Diagnosis | + + | DDD (degenerative disc disease), lumbar Degeneration of lumbar or lumbosacral | | intervertebral disc | + + | Spinal stenosis of lumbar region with [id number]-[id number] level moderately severe | | Spinal stenosis, lumbar region, without neurogenic claudication | + + | Lumbar radiculopathy Thoracic or lumbosacral neuritis or radiculitis, unspecified | + + | Spondylolisthesis of lumbar region Acquired spondylolisthesis | + + documented in this encounter Administered Medications + +--------+ +------+------+------+ | Medication Order | MAR | Action | Dose | Rate | Site | | | Action | Date | | | | + +--------+ +------+------+------+ | betamethasone (CELESTONE | Given | 10/01/19 | 9 mg | | | | SOLUSPAN) injection 9 mg 9 mg, | | 15 3:00 | | | | | Other, EVERY 24 HOURS INTERVAL, | | PM PDT | | | | | First dose on [facility] 09/30/14 at | | | | | | | 1515, For 2 doses, Shake well. | | | | | | | Not for IV use., Radiology | | | | | | + +--------+ +------+------+------+ +---+---+ | | | +---+---+ + +-------+ +-------+---+---+ | iohexol (OMNIPAQUE 300) 300 | Given | 10/01/19 | 2 mLs | | | | mg/mL injection 2 mL 2 mL, | | 15 2:55 | | | | | Other, ONCE PRN, Other, Starting | | PM PDT | | | | | [facility] 09/30/14 at 1448, For 1 dose, | | | | | | | Radiology | | | | | | + +-------+ +-------+---+---+ +---+---+ | | | +---+---+ + +-------+ +-------+---+ + | lidocaine 1% injection 5 mL 5 | Given | 10/01/19 | 5 mLs | | Other | | mL, Intradermal, ONCE, Adilene | | 15 2:50 | | | (Comment | | 09/30/14 at 1515, For 1 dose, | | PM PDT | | | ) | | Radiology | | | | | | + +-------+ +-------+---+ + +---+---+ | | | +---+---+ + +-------+ +-------+---+---+ | sodium bicarbonate (NEUT) 4% | Given | 10/01/19 | 4 mLs | | | | injection 4 mL 4 mL, | | 15 2:50 | | | | | Infiltration, ONCE, Adilene 09/30/14 | | PM PDT | | | | | at 1515, For 1 dose, Use for | | | | | | | addition to other parenteral | | | | | | | solutions., Radiology | | | | | | + +-------+ +-------+---+---+ +---+---+ | | | +---+---+ documented in this encounter"
--- OUTSIDE RECORDS SUMMARY | ~2019-10-27 | XMS | Encounter Summary ---
Demographics + + + | Address | [address] | | | [place] [address] | + + + | Home Phone | | + + + | Preferred Language | Unknown | + + + | Marital Status | | + + + | Orthodox Affiliation | 1041 | + + + | Race | Unknown | + + + | Ethnic Group | Unknown | + + + Author + + + | Author | [facility] | | | and [place] | + + + | Organization | [facility] | | | and [place] | + + + | Address | Unknown | + + + | Phone | Unavailable | + + + Support + + + + + | Name | Relationship | Address | Phone | + + + + + | Lucy Winchester | ECON | [place], | | | | | [place] [address] | | + + + + + | Kellen Briones | ECON | [place], [place] | | | | | [address] | | + + + + + Care Team Providers + +------+ + | Care Crocheter Name | Role | Phone | + [...] [facility] | | | | | Lumbar | Marissa, | [address] | | | | | radiculopath | Tk Monreal MD | [place], | | | | | y | [address] | [place] | | | | | Procedures | [place] | [address] | | | | | [place] INJECT | [facility], [place] | Phone: | | | | | ANES/STEROID | [address] | [phone] | | | | | FORAMEN | Phone: | Fax: | | | | | LUMBAR/SACRA | [phone] | [phone] | | | | | L W IMG | Fax: | | | | | | GUIDE ,1 | [phone] | | | | | | LEVEL IA | | | | | | | TRIAMCINOLON | | | | | | | E ACET INJ | | | | | | | NOS, 10 MG | | | | | | | Appt 2/2- | | | | | | | Bilat L5-S1 | | | | | | | TFESI | | | +--------+--------+ + + + + Encounter Details +--------+ + + + + | Date | Type | Department | Care Team | Description | +--------+ + + + + | 07/05/ | Hospital | [facility] | Bogdanowicz, | Lumbar | | 2016 | Encounter | MED CTR XRAY [address] | [address] | radiculopathy; | | | | [place] | [facility], [address] | Spinal stenosis of | | | | [place] [address] | [place] [address] | lumbar region with | | | | [phone] | [phone] | [id number] | | | | | | level moderately | | | | | [facility] [employer] | severe | | | | | [place] | | +--------+ + + + + [...] +---------+ + + | Blood Pressure | 169/76 | 07/05/2015 1:33 PM | | | | | PST | | + +---------+ + + | Pulse | 78 | 07/05/2015 12:47 PM | | | | | PST | | + +---------+ + + | [...] by mouth | | 0 | | 01/17/201 | | (ZOCOR) 20 mg tablet | [...] | FL EPIDURAL STEROID | Routin | 07/05/2015 | Lumbar | Results for this | | INJECTION LUMBAR | e | 1:32 PM | radiculopathy | procedure are in the | | TRANSFORAMINAL | | PST | Spinal stenosis of | results section. | | | | | lumbar region with | | | | | | [id number]-[id number] | | | | | | level moderately | | | | | | severe | | + +--------+ + + + documented in this encounter Results FL BAUTISTA Lumbar Transforaminal (07/05/2015 1:32 PM PST) + + | Specimen | + + | | + + + + + | Narrative | Performed At | + + + | 07/05/2015 Bilateral Transforaminal Epidural Steroid Injections | [facility] | | Diagnosis: Lumbar radiculopathy ICD-10 Code M54.16 Clementine Phoenix | [facility] | | Annabella presents to the fluoroscopy suite for [facility] | | fluoroscopically-guided bilateral L5-S1 transforaminal epidural | - IMAGING | | steroid injections as part of conservative management for chronic | | | pain with lumbar radiculopathy and degenerative disk disease. After | | | informed consent was obtained, the patient lay in the prone position | | | on the fluoroscopy table. The areas were identified under | | | fluoroscopic guidance. The areas were prepped and draped in sterile | | | fashion. A 25-gauge, 1.5-inch needle was inserted into each region | | | and approximately 3 mL of buffered 1% [...] + + | Performing | Address | City[facility] | Phone Number | | Organization | | | | + + + + + | [facility] | [address] | [place] | [phone] | | [facility] | | [address] | | | - IMAGING | | | | + + + + + documented in this encounter Visit Diagnoses + + | Diagnosis | + + | Lumbar radiculopathy Thoracic or lumbosacral neuritis or radiculitis, unspecified | + + | Spinal stenosis of lumbar region with zhcmvnyzzsbmx-U1-T5 level moderately severe | | Spinal stenosis, lumbar region, without neurogenic claudication | + + documented in this encounter Administered Medications + +--------+ +-------+------+------+ | Medication Order | MAR | Action | Dose | Rate | Site | | | Action | Date | | | | + +--------+ +-------+------+------+ | betamethasone (CELESTONE | Given | 07/05/19 | 12 mg | | | | SOLUSPAN) injection 12 mg 12 mg, | | 16 1:25 | | | | | Other, EVERY 24 HOURS INTERVAL, | | PM PST | | | | | First dose on Sat07/05/15 at 1330, | | | | | | | For 2 doses, Shake well. Not for | | | | | | | IV use., Radiology | | | | | | + +--------+ +-------+------+------+ +---+---+ | | | +---+---+ + +-------+ +-------+---+---+ | iohexol (OMNIPAQUE 300) 300 | Given | 07/05/19 | 2 mLs | | | | mg/mL injection 2 mL 2 mL, | | 16 1:20 | | | | | Other, ONCE PRN, Other, Starting | | PM PST | | | | | 07/05/15 at 1306, For 1 dose, | | | | | | | Radiology | | | | | | + +-------+ +-------+---+---+ +---+---+ | | | +---+---+ + +-------+ +-------+---+---+ | lidocaine (PF) 1% injection 2 | Given | 07/05/19 | 2 mLs | | | | mL 2 mL, Other, ONCE, 07/05/15 | | 16 1:25 | | | | | at 1330, For 1 dose, Radiology | | PM PST | | | | + +-------+ +-------+---+---+ +---+---+ | | | +---+---+ + +-------+ +-------+---+ + | lidocaine buffered 1% injection | Given | 07/05/19 | 6 mLs | | Other | | 6 mL 6 mL, Intradermal, ONCE, | | 16 1:15 | | | (Comment | | 07/05/15 at 1330, For 1 dose, | | PM PST | | | ) | | Radiology | | | | | | + +-------+ +-------+---+ + +---+---+ | | | +---+---+ documented in this encounter"
--- OUTSIDE RECORDS SUMMARY | ~2019-10-27 | XMS | Encounter Summary ---
Demographics + + + | Address | [address] | | | [place] [address] | + + + | Home Phone | | + + + | Preferred Language | Unknown | + + + | Marital Status | | + + + | Catholic Affiliation | 1041 | + + + | Race | Unknown | + + + | Ethnic Group | Unknown | + + + Author + + + | Author | [facility] | | | and [place] | + + + | Organization | [facility] | | | and [place] | + + + | Address | Unknown | + + + | Phone | Unavailable | + + + Support + + + + + | Name | Relationship | Address | Phone | + + + + + | Lucy Winchester | ECON | [place], | | | | | [place] [address] | | + + + + + | Kellen Briones | ECON | [place] | | | | | [address] | | + + + + + Care Team Providers + +------+ + | Care Traffic Police Officer Name | Role | Phone | + +------+ + | Barb Marte | THANG | | + +------+ + Encounter Details +--------+ + + + + | Date | Type | Department | Care Team | Description | +--------+ + + + + | 07/07/ | Orders Only | [facility] | [facility] | Spondylolisthesis of | | 2019 | | [facility] | [address] | lumbar region | | | | [facility] | [address] | (Primary Dx); Lumbar | | | | [address] | [place] [address] | degenerative disc | | | | [place], [place] | [phone] | disease | | | | [address] | | | | | | [phone] | | | +--------+ + + + [...] filedocumented as of this encounter Visit Diagnoses + + | Diagnosis | + + | Spondylolisthesis of lumbar region - Primary Acquired spondylolisthesis | + + | Lumbar degenerative disc disease Degeneration of lumbar or lumbosacral intervertebral | | disc | + + documented in this encounter"
--- OUTSIDE RECORDS SUMMARY | ~2019-10-27 | XMS | Encounter Summary ---
Demographics + + + | Address | [address] | | | [place] [address] | + + + | Home Phone | | + + + | Preferred Language | Unknown | + + + | Marital Status | | + + + | Oriental Orthodox Affiliation | 1041 | + + + | Race | Unknown | + + + | Ethnic Group | Unknown | + + + Author + + + | Author | [facility] | | | and [place] | + + + | Organization | [facility] | | | and [place] | + + + | Address | Unknown | + + + | Phone | Unavailable | + + + Support + + + + + | Name | Relationship | Address | Phone | + + + + + | Lucy Winchester | ECON | [place], | | | | | [place] [address] | | + + + + + | Kellen Briones | ECON | [place], [place] | | | | | [address] | | + + + + + Care Team Providers + +------+ + | Care Laborer Landscape Name | Role | Phone | + [...] + | 08/10/ | Refill | [facility] | Irving Becerril, | Medication Refill | | 2016 | | NE[address]OSURGERY [address] | DO [address] | | | | | [address] [facility] [address] | [address] [place], [place] | | | | | [place], [place] | [id number] | | | | | [address] | | | | | | [phone] | | | +--------+--------+ + + + [...]
--- OUTSIDE RECORDS SUMMARY | ~2019-10-27 | XMS | Encounter Summary ---
Demographics + + + | Address | [address] | | | [place] [address] | + + + | Home Phone | | + + + | Preferred Language | Unknown | + + + | Marital Status | | + + + | Synagogue Affiliation | 1041 | + + + | Race | Unknown | + + + | Ethnic Group | Unknown | + + + Author + + + | Author | [facility] | | | and [place] | + + + | Organization | [facility] | | | and [place] | + + + | Address | Unknown | + + + | Phone | Unavailable | + + + Support + + + + + | Name | Relationship | Address | Phone | + + + + + | Lucy Winchester | ECON | [place], | | | | | [place] [address] | | + + + + + | Kellen Briones | ECON | [place], [place] | | | | | [address] | | + + + + + Care Team Providers + +------+ + | Care Javascript Engineer Name | Role | Phone | + +------+ + | Anna De Guzman PA-C | PCP | | + +------+ + Encounter Details +--------+ + + + + | Date | Type | Department | Care Team | Description | +--------+ + + + + | 12/29/ | Orders Only | [facility] | Irving Bceerril, | Neck pain (Primary | | 2016 | | NEUROSURGERY [address] | DO [address] | Dx) | | | | [address] | [address] [place], [place] | | | | | [place], [place] | [phone] | | | | | [address] | | | | | | [phone] | | | +--------+ + + + [...] on filedocumented as of this encounter Results XR Cervical Spine 4 or 5 Vws (02/02/2016 12:02 PM PDT) + + | Specimen | + + | | + + + + + | Narrative | Performed At | + + + | XR CERVICAL SPINE 4 OR 5 VWS. 02/02/2016 12:02 PM HISTORY: Neck | [facility] | | pain . COMPARISON: MRI cervical spine 12/20/2015 FINDINGS: | [facility] | | There is straightening of the cervical lordosis. There is mild | [facility] | | levoconvex curvature centered in the mid cervical spine. There is | - IMAGING | | anterolisthesis of C3 on C4 on the upright neutral view, which | | | increases on the flexion view and is not substantially changed on the | | | extension view. There is retrolisthesis of C4 on C5 on the upright | | | neutral view, which is unchanged on the flexion view and which | | | increases on the extension view. There is retrolisthesis of C5 on C6 | | | on the upright neutral view, which resolves completely on the flexion | | | view and increases on the extension view. There is retrolisthesis of | | | C6 on C7 on the upright neutral view, which resolved completely on | | | the flexion view and is stable on the extension view. There is | | | anterolisthesis of C7 on T1 on the upright neutral view, which does | | | not suggest significant change on the flexion view or the extension | | | view. Vertebral body heights are maintained. There is diffuse | | | degenerative disc disease. There is severe loss of disc height at | | | C5-6 and moderate-severe loss of disc height at C6-7 and C4-5, with | | | endplate sclerotic change and osteophyte formation. There is facet | | | degenerative hypertrophy throughout the cervical spine. | | | Prevertebral and paraspinal soft tissues are unremarkable. | | | IMPRESSION - Degenerative disc disease, spondylotic change, | | | scoliosis, and spondylolisthesis, as described above. Dictated | | | and Signed by: Pepe Flores MD Electronically signed: 02/02/2016 | | | 3:44 PM | | + + + + + | Procedure Note | + + | Nilay Lawrence Results In - 02/02/2016 3:47 PM PDT XR CERVICAL SPINE 4 OR 5 VWS. 02/02/2016 | | 12:02 PMHISTORY: Neck pain . COMPARISON: MRI cervical spine 12/20/2015FINDINGS:There is | | straightening of the cervical lordosis. There is mild levoconvexcurvature centered in | | the mid cervical spine.There is anterolisthesis of C3 on C4 on the upright neutral view, | | whichincreases on the flexion view and is not substantially changed on the | | extensionview.There is retrolisthesis of C4 on C5 on the upright neutral view, which | | isunchanged on the flexion view and which increases on the extension view.There is | | retrolisthesis of C5 on C6 on the upright neutral view, which resolvescompletely on the | | flexion view and increases on the extension view.There is retrolisthesis of C6 on C7 on | | the upright neutral view, which resolvedcompletely on the flexion view and is stable on | | the extension view.There is anterolisthesis of C7 on T1 on the upright neutral view, | | which does notsuggest significant change on the flexion view or the extension view. | | Vertebral body heights are maintained.There is diffuse degenerative disc disease. There | | is severe loss of disc heightat C5-6 and moderate-severe loss of disc height at C6-7 | | and C4-5, with endplatesclerotic change and osteophyte formation. There is facet | | degenerativehypertrophy throughout the cervical spine. Prevertebral and paraspinal | | softtissues are unremarkable.IMPRESSION -Degenerative disc disease, spondylotic change, | | scoliosis, and spondylolisthesis,as described above.Dictated and Signed by: Pepe | | MD Sandra Electronically signed: 02/02/2016 3:44 PM | |suggest significant change on the flexion view or the extension view. | | Vertebral body heights are maintained. | |There is diffuse degenerative disc disease. There is severe loss of disc height | |at C5-6 and moderate-severe loss of disc height at C6-7 and C4-5, with endplate | |sclerotic change and osteophyte formation. There is facet degenerative | |hypertrophy throughout the cervical spine. Prevertebral and paraspinal soft | |tissues are unremarkable. | | | | | |IMPRESSION - | |Degenerative disc disease, spondylotic change, scoliosis, and spondylolisthesis, | |as described above. | | | |Dictated and Signed by: Pepe Flores MD | | Electronically signed: 02/02/2016 3:44 PM | + + + + + + + | Performing | Address | City/State/Zipcode | Phone Number | | Organization | | | | + + + + + | [facility] [address] | [address] | [place] | [phone] | | [facility] | | [id number] | | | - IMAGING | | | | + + + + + documented in this encounter Visit Diagnoses + + | Diagnosis | + + | Neck pain - Primary Cervicalgia | + + documented in this encounter"
--- OUTSIDE RECORDS SUMMARY | ~2019-10-27 | XMS | Encounter Summary ---
Demographics + + + | Address | [address] | | | [place] [address] | + + + | Home Phone | | + + + | Preferred Language | Unknown | + + + | Marital Status | | + + + | Sabianism Affiliation | 1041 | + + + | Race | Unknown | + + + | Ethnic Group | Unknown | + + + Author + + + | Author | [facility] | | | and [place] | + + + | Organization | [facility] | | | and [place] | + + + | Address | Unknown | + + + | Phone | Unavailable | + + + Support + + + + + | Name | Relationship | Address | Phone | + + + + + | Lucy Winchester | ECON | [place], | | | | | [place] [address] | | + + + + + | Kellen Briones | ECON | [place], [place] | | | | | [address] | | + + + + + Care Team Providers + +------+ + | Care Production Team Manager Name | Role | Phone | + +------+ + | Anna De Guzman PA-C | PCP | | + +------+ + Reason for Visit + + + | Reason | Comments | + + + | Paperwork | | + + + Encounter Details +--------+ + + + + | Date | Type | Department | Care Team | Description | +--------+ + + + + | 05/07/ | Telephone | [facility] | Irving Becerril, | Paperwork | | 2016 | | NEUROSURGERY [address] | DO [address] | | | | | [address] | [address] [place], [place] | | | | | [place], [place] | [phone] | | | | | [address] | | | | | | [phone] | | | +--------+ + + + [...]
--- OUTSIDE RECORDS SUMMARY | ~2019-10-27 | XMS | Encounter Summary ---
Demographics + + + | Address | [address] | | | [place] [address] | + + + | Home Phone | | + + + | Preferred Language | Unknown | + + + | Marital Status | | + + + | Scientologist Affiliation | 1041 | + + + | Race | Unknown | + + + | Ethnic Group | Unknown | + + + Author + + + | Author | [facility] | | | and [place] | + + + | Organization | [facility] | | [...] [place], | | | | | [place] [address] | | + + + + + | Kellen Briones | ECON | [place] | | | | | [address] | | + + + + + Care Team Providers + +------+ + | Care Cullet Crusher And Washer Name | Role | Phone | + +------+ + | Barb Marte | THANG | | + +------+ + Encounter Details +--------+ + + + + | Date | Type | Department | Care Team | Description | +--------+ + + + + | 04/09/ | Hospital | [facility] | Monster White MD | Lumbar stenosis with | | 2019 | Encounter | MED CTR XRAY [address] | [address]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 | | | | [place] | [address] [address] [facility] | claudication | | | | [place] [address] | [phone] | | | | | [phone] | | | +--------+ + + + [...] puff by mouth | | 0 | 01/16/20 | | | (VENTOLIN HFA) 90 | [...] + + + +---------+ + + | cyanocobalamin | Take by mouth | | 0 | | | | (VITAMIN B-12) 100 | Daily. | | | | | | MCG TABS | | | | | | + + + +---------+ + + | DULoxetine | 20 mg. | | 3 | 07/23/19 | | | (CYMBALTA) [address] | | | | 19 | | | capsule | | | | | | + + + +---------+ + + | furosemide (LASIX) | Take 20 mg by mouth. | | 0 | 12/19/19 | | | 20 mg tablet | | | | 19 | 0 | + + + +---------+ + + | gabapentin | Take 100 mg by mouth | | 1 | 02/07/20 | | | (NEURONTIN) 100 mg | 2 times daily. | | | 18 | | | capsule | | | | | | + + + +---------+ + + | levothyroxine | Take 25 mcg by mouth | | 5 | 12/12/19 | | | (SYNTHROID) 25 mcg | Daily. | | | 18 | | | tablet | | | | | | + + + +---------+ + + | lisinopril | Take 1 tablet by | 90 | 3 | 04/02/20 | | | (PRINIVIL, ZESTRIL) | mouth Daily. | tablet | | 19 | | | 5 mg tablet | | | | | | [...] Take 40 mg by mouth | | 2 | 02/05/20 | | | (PRILOSEC) 40 MG | Daily. | | | 18 | | | capsule | | | | | | + + + +---------+ + + | potassium chloride | Take 10 mEq by | | 0 | 12/19/19 | | | (KLOR-CON) 10 MEQ | mouth. | | | 19 | 0 | | ER tablet | | | | | | + + + +---------+ + + | benzonatate | Take 200 mg by mouth | | 0 | | | | (TESSALON) 200 MG | as needed. | | | | 0 | | capsule | | | | | | + + + +---------+ + + | fentaNYL | APPLY 1 PATCH TO THE | | 0 | 02/07/20 | | | (DURAGESIC) 25 | SKIN Q 3 DAYS | | | 18 | 0 | | mcg/hr | | | | | | + + + +---------+ + + documented as of this encounter Plan of Treatment Not on filedocumented as of this encounter Procedures + +--------+ + + + | Procedure Name | Priori | Date/Time | Associated Diagnosis | Comments | | | ty | | | | + +--------+ + + + | XR LUMBAR SPINE 4 + | Routin | 04/09/2019 | Lumbar stenosis | Results for this | | VW | e | 2:18 PM | with neurogenic | procedure are in the | | | | PST | claudication | results section. | + +--------+ + + + documented in this encounter Results XR Lumbar Spine 4 + Vw (04/09/2019 2:18 PM PST) + + | Specimen | + + | | + + + + + | Impressions | Performed At | + + + | Moderate to severe multilevel degenerative disc disease and facet | [facility] | | spondylosis throughout the lumbar spine. Levoconvex curvature of | | | the lumbar spine. Grade 1 anterolisthesis of L4 over L5 which is | | | worsened on flexion in comparison to extension. Dictated and | | | Signed by: Justo Norton MD Electronically signed: 04/09/2019 2:39 | | | PM | | + + + + + + | Narrative | Performed At | + + + | XR LUMBAR SPINE 4 + VW 04/09/2019 2:18 PM HISTORY: Back Pain. | [facility] | | COMPARISON: 04/09/2019 FINDINGS: Levoconvex scoliosis of the | | | lumbar spine. Moderate to severe diffuse disc space narrowing, | | | endplate sclerosis, and marginal osteophytosis throughout the lumbar | | | spine. Grade 1 anterolisthesis of L4 over L5 which is slightly | | | worsened with flexion in comparison to extension. Significant aortic | | | calcifications. Vertebral body heights are preserved. | | + + + + + | Procedure Note | + + | HowardNilay acosta Results In - 04/09/2019 2:42 PM PST XR LUMBAR SPINE 4 + VW 04/09/2019 2:18 | | PMHISTORY: Back Pain.COMPARISON: 04/09/2019FINDINGS: Levoconvex scoliosis of the lumbar | | spine. Moderate to severe diffusedisc space narrowing, endplate sclerosis, and marginal | | osteophytosis throughoutthe lumbar spine. Grade 1 anterolisthesis of L4 over L5 which is | | slightlyworsened with flexion in comparison to extension. Significant | | aorticcalcifications. Vertebral body heights are preserved.IMPRESSION: Moderate to | | severe multilevel degenerative disc disease and facet spondylosisthroughout the lumbar | | spine.Levoconvex curvature of the lumbar spine.Grade 1 anterolisthesis of L4 over L5 | | which is worsened on flexion in comparisonto extension.Dictated and Signed by: Justo | | MD Cierra Electronically signed: 04/09/2019 2:39 PM | |calcifications. Vertebral body heights are preserved. | | | |IMPRESSION: | |Moderate to severe multilevel degenerative disc disease and facet spondylosis | |throughout the lumbar spine. | | | |Levoconvex curvature of the lumbar spine. | | | |Grade 1 anterolisthesis of L4 over L5 which is worsened on flexion in comparison | |to extension. | | | |Dictated and Signed by: Justo Norton MD | | Electronically signed: 04/09/2019 2:39 PM | + + + +---------+ + + | Performing | Address | City/State/Zipcode | Phone Number | | Organization | | | | + +---------+ + + | [facility] | | | | + +---------+ + + documented in this encounter Visit Diagnoses + + | Diagnosis | + + | Lumbar stenosis with neurogenic claudication Spinal stenosis, lumbar region, with |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 claudication | + + documented in this encounter"
--- OUTSIDE RECORDS SUMMARY | ~2019-10-27 | XMS | Encounter Summary ---
Demographics + + + | Address | [address] | | | [place] [address] | + + + | Home Phone | | + + + | Preferred Language | Unknown | + + + | Marital Status | | + + + | Lutheran Affiliation | 1041 | + + + [...] [place], | | | | | [place] [address] | | + + + + + | Kellen Briones | ECON | [place], [place] | | | | | [address] | | + + + + + Care Team Providers + +------+ + | Care E Learning Coordinator Name | Role | Phone | + +------+ + | Anna De Guzman PA-C | PCP | | + +------+ + Reason for Visit +--------+ + | Reason | Comments | +--------+ + | Other | | +--------+ + Encounter Details +--------+ + + + + | Date | Type | Department | Care Team | Description | +--------+ + + + + | 08/27/ | Telephone | [facility] | Tk Ann | Other | | 2012 | | PHYSIATRY [address] | [address] | | | | [address] [facility] [address] | [address] [place], [place] | | | | | [place], [place] | [address] | | | | | [address] | | | | | | [phone] | | | +--------+ + + + [...]
--- OUTSIDE RECORDS SUMMARY | ~2019-10-27 | XMS | Encounter Summary ---
Demographics + + + | Address | [address] | | | [place] [address] | + + + | Home Phone | | + + + | Preferred Language | Unknown | + + + | Marital Status | | + + + | Mandaen Affiliation | [phone] | + + + [...] [place], | | | | | [place] [address] | | + + + + + | Kellen Briones | ECON | [place], [place] | | | | | [address] | | + + + + + Care Team Providers + +------+ + | Care Back Stayer Name | Role | Phone | + +------+ + | Anna De Guzman PA-C | PCP | | + +------+ + Reason for Visit + + + | Reason | Comments | + + + | Neck Pain | | + + + Evaluate & Treat (Routine) +--------+ + [...] | | | side Facet | PA-C [address] | [address] | | | | | arthritis of | [address], | [place], [place] | | | | | cervical | [address] | [address] Phone: | | | | | region DDD | [place], [place] | [phone] | | | | | (degenerativ | [address] | Fax: | | | | | e disc | Phone: | [phone] | | | | | disease), | [phone] | | | | | | cervical | Fax: | | | | | | Cervical | [phone] | | | | | | stenosis of | | | | | | | spinal canal | | | +--------+ + + + + + Encounter Details +--------+---------+ + + + | Date | Type | Department | Care Team | Description | +--------+---------+ + + + | 02/01/ | Office | [facility] | Irving Becerril, | Spondylolisthesis, | | 2016 | Visit | NEUR[address]URGERY [address] | DO [address] | cervical region | | | | [address] | [address] [place], [place] | (Primary Dx); 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[place], [place] | [address] | secondary kyphosis, | | | | [address] | | cervical region; | | | | [phone] | | Cervical myelopathy | | | | | | ([facility]); Cervical | | | | | | stenosis of spine; | | | | | | Cervical radicular | | | | | | pain; Cervicalgia | +--------+---------+ + + + Social History [...] + + + | Blood Pressure | 113/46 | 02/02/2016 12:47 PM | | | | | PDT | | + + + + + | Pulse | 78 | 02/02/2016 12:47 PM | | | | | PDT | | + + + + + | Temperature | - | - | | + + + + + | Respiratory Rate | 15 | 02/02/2016 12:47 PM | | | | | PDT | | + + + + + | Oxygen Saturation | - | - | | + + + + + | Inhaled Oxygen | - | - | | | Concentration | | | | + + + + + | Weight | - | - | | + + + + + | Height | 160 cm (5' 3") | 02/02/2016 12:47 PM | | | | | PDT | | + + + + + | Body Mass Index | - | - | | + + + + + documented in this encounter Patient Instructions Patient Instructions Irving Becerril DO - 02/02/2016 1:30 PM PDTPlease follow-up with destinee edouard primary care physician for preoperative clearance. Please present for surgery when scheduled. documented in this encounter Progress Notes Lyly Forman RN - 02/02/2016 1:31 PM PDTREVIEW OF SYSTEMS GENERALLY: No fever, no night sweats, no anemia, no fatigue, no recent profound weight ch anges. EYES: No eye problems, + use of corrective lenses, no eye injury, no double vision, no bli ndness. EARS, NOSE, AND THROAT: No changes in taste or smell, + hearing difficulty, + ringing in t he ears, no ear drainage, no dizziness, + voice changes, no difficulty swallowing, no signif icant snoring, no sleep apnea, no sinus problems, no major dental work. NEUROLOGICALLY: Please see the review of systems discussed above in the history of present illness. In addition, the patient has awake with numbness/pain, memory loss, pain in back. PSYCHIATRIC: + depression, no sleep disorders, no anxiety, no bipolar disorder, no psychot ic episodes. CARDIOVASCULAR: + heart attacks, no heart murmur, no heart fluttering, no chest pain, no a nkle swelling. LUNG DISEASE: No shortness of breath, no cough, no tuberculosis, no bloody cough, no asth ma, no emphysema/COPD. GASTROINTESTINAL: No bowel disease, no nausea or vomiting, no rectal bleeding, no constipa tion, no stool incontinence, no liver disease, no gallbladder disease, no abdominal pain, no ulcers. KIDNEY DISEASE: No urinary frequency, no painful or difficult urination, no incontinence. ENDOCRINE: No diabetes, no thyroid disease, no osteopenia or osteoporosis, no breast drain age. SKIN: No breast lumps, no skin changes, no rashes, no itches. HEMATOLOGIC/LYMPHATIC: No enlarged lymph nodes, no easy or unusual bleeding, + personal hi story of cancer. RHEUMATOLOGIC: + joint arthritis, no rheumatoid arthritis. Irving Shields DO - 02/02/2016 1:30 PM PDT Irving Becerril DO [address] [facility], [address] [place] [address] FAX: NEUROSURGERY HISTORY AND PHYSICAL EXAMINATION CHIEF COMPLAINT: Chief Complaint Patient presents with Neck Pain HISTORY OF PRESENT ILLNESS: The patient is a 75 y.o. female with the complaint of neck tom n symptoms that began many years ago. The patient describes insidious onset. She presented to this office 2 years ago and surgery was offered. She declined surgery at that time and sy mptoms have progressed. The symptoms have been gradually worsening. She rates the pain as severe. The symptoms are frequent, daily, continuous. She describes the pain as aching and stabbing. The patient describes arm symptoms down both sides. The arm symptoms account for at least greater than or equal to 50% of her symptoms. Her pain travels from her neck up the back of her head and down into her hands, left worse than right. She also describes decreased rang e of motion and arm weakness. She does indicate a history of loss of fine motor function. Other findings of progressive myelopathy are present. Her symptoms improve with rest. Her symptoms worsen with changing position, standing, sitting, bending, twisting and light exertion. She has tried lifestyle modification, pain medication, rest, chiropractics. PAST MEDICAL HISTORY: Past Medical History Diagnosis Date Coronary artery disease Diabetes mellitus ([facility]) Hypertension Stroke ([facility]) Syncope and collapse Cancer ([facility]) Breast Hyperlipidemia KS (myocardial infarction) ([facility]) GERD (gastroesophageal reflux disease) Asthma Arthritis Lumbar radiculopathy 07/23/2012 DDD (degenerative disc disease), lumbar 07/23/2012 Spinal stenosis of lumbar region with [id number]-H0-U8 level moderately severe 2012 Facet arthritis of lumbar region-Most severe at L4-L5,L5-S1 07/23/2012 Snoring Chronic narcotic use Neck pain on right side 05/13/2013 Facet arthritis of cervical region 05/13/2013 DDD (degenerative disc disease), cervical 05/13/2013 PAST SURGICAL HISTORY: Past Surgical History Procedure Laterality Date Coronary artery bypass graft 2009 Hysterectomy, total abdominal 1969 Tonsillectomy and adenoidectomy 1947 Mouth surgery 8 She is edentulous Carpal tunnel release 1979' Bilateral Reconstruction of left thumb 1989' Mastectomy, radical 1987 Right Breast reconstruction [id number] ABout 10 surgeries Bone spur left foot Blepharoptosis repair 2009 bilateral CURRENT MEDICATIONS: Current Outpatient Prescriptions Medication Sig [...] 900 mg by mouth 3 times daily. metFORMIN (GLUCOPHAGE) 500 mg tablet Take 500 mg by mouth nightly. nitroglycerin (NITROSTAT) 0.[address] 0.4 mg under the tongue every 5 minute s as needed. omeprazole (PRILOSEC) 20 mg capsule Take 20 mg by mouth every morning (before breakfast ). simvastatin (ZOCOR) 20 mg tablet Take 20 mg by mouth nightly. No current facility-administered medications for this visit. ALLERGIES: Allergies Allergen Reactions Tizanidine Hcl Other (See Comments) Pt states it affected her balance and made her feel like she was in a fog. Tape [Adhesive & Tape] Rash SOCIAL HISTORY: The patient reports that she has never smoked. She has never used smokeless tobacco. She r eports that she drinks alcohol. She reports that she does not use illicit drugs. FAMILY HISTORY: Family History Problem Relation Age of Onset Alcohol abuse Father Heart disease Father Migraines Daughter Other (see comment) Daughter Depression Migraines Son Other (see comment) Son Seizure disorder, snores Cancer Mother Heart disease Mother Hypertension Mother Arthritis Mother Hypertension Daughter COPD Daughter Arthritis Daughter High blood pressure Daughter Other (see comment) Daughter snores REVIEW OF SYSTEMS: GENERALLY: No fever, no night sweats, no anemia, + fatigue, + recent profound weight ch anges. EYES: No eye problems, + use of corrective lenses, no eye injury, no double vision, no bl indness. EARS, NOSE, AND THROAT: + changes in taste or smell, no hearing difficulty, + ringing in the ears, no ear drainage, no dizziness, + voice changes, no difficulty swallowing, + signif icant snoring, no sleep apnea, + sinus problems, + major dental work. NEUROLOGICALLY: Please see the review of systems discussed above in the history of presen t illness. In addition, the patient has muscle aching, pain in neck, pain in back, memory loss. PSYCHIATRIC: + depression, no sleep disorders, no anxiety, no bipolar disorder, no psycho tic episodes. CARDIOVASCULAR: + heart attacks, no heart murmur, no heart fluttering, + chest pain, + an kle swelling. LUNG DISEASE: + shortness of breath, + cough, no tuberculosis, no bloody cough, + asthm a, + emphysema/COPD. GASTROINTESTINAL: No bowel disease, + nausea or vomiting, no rectal bleeding, + hemorrhoi ds, no constipation, no stool incontinence, no liver disease, no gallbladder disease, no abd ominal pain, no ulcers. KIDNEY DISEASE: No urinary frequency, no painful or difficult urination, no incontinence. ENDOCRINE: + diabetes, no thyroid disease, no osteopenia or osteoporosis, no breast drain age. SKIN: No breast lumps, no skin changes, no rashes, no itches. HEMATOLOGIC/LYMPHATIC: No enlarged lymph nodes, no easy or unusual bleeding, + personal h istory of cancer. RHEUMATOLOGIC: + joint arthritis, no rheumatoid arthritis. PHYSICAL EXAMINATION: Blood pressure 113/46, pulse 78, resp. rate 15, height 1.6 m (5' 3"). There is no weight on file to calculate BMI. GENERAL: Clementine Winchester is in no acute distress with unlabored respirations. The patient does appear uncomfortable throughout the exam today. HEENT: HEAD/FACE: EYES: EARS: NASOPHARNYX: OROPHARNYX: Normocephalic and atraumatic. There are no areas of recent trauma. Normal sclerae without icterus. No drainage or tenderness. Clear without drainage. Clear without erythema. NECK (ANTERIOR): Supple and without palpable masses. CHEST: Clear to ausculation without crackles or wheeze. HEART: Regular rate and rhythm without murmurs. ABDOMEN: Soft, non-tender, non-distended, and without palpable masses. The patient is not obese. SPINE: The cervical spine exam shows there is tenderness over the C-3, C-4, C-5, C-6 and C- 7 region. Range of motion is limited. Rotation and extension does cause symptoms to radiat e into the extremities on both sides. Flexion and extension of the neck does cause severe discomfort. No tenderness in the midline of the thoracic or lumbar spine. There is no major palpable d eformity of the spine. EXTREMITIES: No cyanosis, clubbing, or edema. Distal pulses are palpable. NEUROLOGICAL EXAM: MENTAL STATUS: The patient is awake, alert, and oriented. She follows simple and complex commands. Her speech is fluent, she comprehends speech well, and she repeats well. She has no apparent deficits with short or mcfp memory. CRANIAL NERVES: Fundoscopic Exam: The optic disc is sharp. Normal vascular pattern is visualized II: Acuity is intact. Pepper are full to confrontation. III, IV, : The pupils are reactive. Extraocular movements are intact. No ptosis is note d. V: Facial sensation is intact and symmetric. VII: Facial movements are symmetric. VIII: Hearing is intact bilaterally. IX, X: The uvula and palate move appropriately. XI: Shrug is equal bilaterally. XII: Tongue protrusion is midline. MOTOR EXAM: (5 IS NORMAL) * Indicates pain limited MUSCLE/ MOVEMENT: RIGHT LEFT Deltoids 5 4 Biceps 5 4 Triceps 5 4+ Wrist Flexion 5 4+ Wrist Extension 5 4+ Median Intrinsics 5 4+ Ulnar Intrinsics 5 4+ Grocery Specialist Strength 4+ 4+ Hip Flexion 5 5 Hip Extension 5 5 Knee Flexion 5 5 Knee Extension 5 5 Dorsiflexion 5 5 Extensor Hallicus Longus 5 5 Plantarflexion 5 5 SENSORY EXAM: Sensory exam shows bilateral C4, C5, C6, and C7-type dysesthesia, left worse than right. REFLEXES: (2 OR 2+ IS NORMAL) REFLEX: RIGHT LEFT BICEPS 3+ 3+ BRACHIORADIALIS 3+ 3+ TRICEPS 3+ 3+ PATELLAR 3+ 3+ ACHILLES 3+ 3+ RICE'S PRESENT PRESENT PLANTAR UPGOING UPGOING GAIT: Gait is steady. PERIPHERAL NERVE/MISC: Tinel is negative at the wrists and elbows bilaterally. Phalen is negative. Straight leg raise is negative bilaterally. Westley's test of the hips is negative bilaterally. RADIOGRAPHIC REVIEW: The patient's imaging was reviewed in detail with the patient today during the visit. The MRI of the cervical spine from 12/20/15 demonstrates loss of cervical lordosis with kyphosis C3-6. There is spondylolisthesis C3-4. There is spondylosis C4-T1. There are varying degrees of central and foraminal stenosis C3-7. There is severe central stenosis C5-6 with deformat ion of the spinal cord and spinal cord signal change. Cervical flexion and extension views show unstable spondylolisthesis C3-4. ASSESSMENT: NEUROSURGICAL DIAGNOSES: Encounter Diagnoses Name Primary? Spondylolisthesis, cervical region Yes Other secondary kyphosis, cervical region Cervical myelopathy Cervical stenosis of spine Cervical radicular pain Cervicalgia GENERAL DIAGNOSES: Past Medical History Diagnosis Date Coronary artery disease Diabetes mellitus (HCC) Hypertension Stroke (HCC) Syncope and collapse Cancer (HCC) Breast Hyperlipidemia KS (myocardial infarction) (HCC) GERD (gastroesophageal reflux disease) Asthma Arthritis Lumbar radiculopathy 07/23/2012 DDD (degenerative disc disease), lumbar 07/23/2012 Spinal stenosis of lumbar region with newyqdamwutza-F2-H6 level moderately severe 2012 Facet arthritis of lumbar region-Most severe at L4-L5,L5-S1 07/23/2012 Snoring Chronic narcotic use Neck pain on right side 05/13/2013 Facet arthritis of cervical region 05/13/2013 DDD (degenerative disc disease), cervical 05/13/2013 PLAN: Clementine Winchester presented today, and it was a pleasure seeing this patient and assessing h er problems. The patient has spondylolisthesis, kyphosis, spondylosis, and severe stenosis C3-7. This is likely contributing to her myelopathy, neck pain, arm pain, and arm weakness. I had a lengthy discussion with the patient about her options for care including surgical a nd non-surgical options. She would like to proceed with ACDF C3-7. We discussed the risks, alternatives, and benefits to surgical intervention with Ms. Winchester in clinic. These risks included but were not limited to , stroke, heart attack, numbn ess, weakness, paralysis, failure of fusion, failure of hardware, subsidence, adjacent segme nt degeneration, cerebrospinal fluid leak, bleeding, infection, injury to surrounding tissue s and organs, injury from positioning, injury to the nerves, difficulty with breathing, diff iculty with swallowing, difficulty with voice change, and need for additional surgery. Surgical options were discussed and the technique to be employed was described in detail to her. All her questions were answered. We discussed that the goal of the surgery is to prevent progression of her disease, but it is not considered a cure. We also discussed that although some patients may obtain 100% sym ptom relief, it is realistic to anticipate that some symptoms will continue postoperatively despite a successful surgery. We also discussed that there is no guarantee that surgery will provide improvement in her c ondition, and indeed may even worsen the symptoms. We also discussed that in the course of the procedure the operative plan may be altered to include more, less, or different levels d epending upon findings in order to provide her with the best possible outcome. I recommend and would prescribe a cervical collar before surgery to improve her stability n ow to support her weak muscles and to reduce pain by restricting mobility. For multiple (more than 1 level fusions), I recommend the use of a bone growth stimulator p ostoperatively. This is to improve the probability and rate of fusion. She will follow-up with her primary care provider for preoperative clearance and optimizati on prior to presenting for surgery. ELECTRONICALLY SIGNED BY: Irving Becerril DO, 02/02/2016 13:39 documented in this en counter Plan of Treatment Not on filedocumented as of this encounter Visit Diagnoses + + | Diagnosis | + + | Spondylolisthesis, cervical region - Primary | + + | Other secondary kyphosis, cervical region | + + | Cervical myelopathy (HCC) Cervical spondylosis with myelopathy | + + | Cervical stenosis of spine Spinal stenosis in cervical region | + + | Cervical radicular pain Brachial neuritis or radiculitis nos | + + | Cervicalgia | + + documented in this encounter
--- OUTSIDE RECORDS SUMMARY | ~2019-10-27 | XMS | Encounter Summary ---
Demographics + + + | Address | [address] | | | [place] [address] | + + + | Home Phone | | + + + | Preferred Language | Unknown | + + + | Marital Status | | + + + | Yazdanism Affiliation | [id number] | + + + | Race | Unknown | + + + | Ethnic Group | Unknown | + + + Author + + + | Author | [facility] | | | and [place] | + + + | Organization | [facility] | | | and [place] | + + + | Address | Unknown | + + + | Phone | Unavailable | + + + Support + + + + + | Name | Relationship | Address | Phone | + + + + + | Lucy Winchester | ECON | [place], | | | | | [place] [address] | | + + + + + | Kellen Briones | ECON | [place], [place] | | | | | [address] | | + + + + + Care Team Providers + +------+ + | Care Car Wash Supervisor Name | Role | Phone | + +------+ + | Anna De Guzman PA-C | PCP | | + +------+ + Reason for Visit + + + | Reason | Comments | + + + | Surgery Appointment | reminder | + + + Encounter Details +--------+ + + + + | Date | Type | Department | Care Team | Description | +--------+ + + + + | 03/28/ | Telephone | [facility] | Irving Becerril, | Surgery Appointment | | 2015 | | [address] | DO [address] | (reminder ) | | | | [address] | [address] [place], [place] | | | | | [place], [place] | [address] | | | | | [address] | | | | | | [phone] | | | +--------+ + + + [...]
--- OUTSIDE RECORDS SUMMARY | ~2019-10-27 | XMS | Encounter Summary ---
Demographics + + + | Address | [address] | | | [place] [address] | + + + | Home Phone | | + + + | Preferred Language | Unknown | + + + | Marital Status | | + + + | Yazdanism Affiliation | 1041 | + + + | Race | Unknown | + + + | Ethnic Group | Unknown | + + + Author + + + | Author | [facility] | | | and [place] | + + + | Organization | [facility] | | | and [place] | + + + | Address | Unknown | + + + | Phone | Unavailable | + + + Support + + + + + | Name | Relationship | Address | Phone | + + + + + | Lucy Winchester | ECON | [place], | | | | | [place] [address] | | + + + + + | Kellen Briones | ECON | [place] | | | | | [address] | | + + + + + Care Team Providers + +------+ + | Care Senior Administrative Associate Name | Role | Phone | + +------+ + | Barb Marte | PCP | | + +------+ + Encounter Details +--------+ + + + + | Date | Type | Department | Care Team | Description | +--------+ + + + + | 07/08/ | Clinical | [facility] | | Lumbar degenerative | | 2020 | Support | NEUROSURGERY [address] | | disc disease; | | | | [address] | | Spondylolisthesis of | | | | [place], [place] | | lumbar region | | | | [address] | | | | | | [phone] | | | +--------+ + + + [...] + + documented as of this encounter Patient Instructions Patient Instructions Marialuisa Pool RN - 07/08/2019 2:15 PM PSTPreOp Instructions: -Discontinue aspirin, coumadin, heparin, etc 5-7 days before surgery -Discontinue any NSAIDs, such as ibuprofen and aleve 5-7 days before surgery. -Take prescribed medications as directed for pain management. -Don't bend, twist, or lift anything greater than 5-10 lbs. -Take pain medication and muscle relaxer 1 hour apart, taking together increases drowsiness which increases risk of falls. -Reminder to go to pre-op appt at hospital, and take consent form. If you have any questions or concerns feel free to call us at [phone]. documented in this encounter Progress Notes Marialuisa Pool RN - 07/08/2019 2:15 PM PSTPatient presents for pre-op visit re: their sc heduled L4-5 XLIF with posterior instrumentation, decompression and fusion on 07/15/19. Patie nt reports pre-op symptoms of low back pain with left more than right leg pain, difficulty a mbulating more than 50-100 feet. Surgical informed consent signed by patient and witnessed p reggie White's instructions. Patient and daughter present for this appointment. Pre-op and post-op instructions reviewed to include: activity and restrictions, medications - stop Asprin and NSAID's on 07/15/19, ma y resume Asprin 1 post-op and NSAID's 3 months post-op, diet - increase fluids and fiber int tad, post-op wound care, when to call the doctor. Advised patient to take pain medication an d muscle relaxer 1 hour apart, taking together increases drowsiness and risk of falls. J-oAnne nt is provided a prescription for an LSO to be used now and post operatively. This is necess shawn to provide stabilization, providing a reminder to restrict mobility and maximize surgica l success and healing. This will be worn for the duration of time as per discussed with the provider and proper weaning instruction will be provided in the subsequent post op visit. Q uestions were addressed, patient and daughter verbalized understanding of given instruction. Spine class book given to patient. Patient was sent to [facility] for their scheduled pre-admit appointment, anesthesia consult, lab draw, EKG and chest xray. Orders entered per Dr. White's preference and hospital guidelines. Patient was given an appointment reminder for their first post-op visit on 08/05/19 @ 1015 a nd instructed to call in the interim with any problems or concerns. documented in this encounter Plan of Treatment Not on filedocumented as of this encounter Visit Diagnoses + + | Diagnosis | + + | Lumbar degenerative disc disease Degeneration of lumbar or lumbosacral intervertebral | | disc | + + | Spondylolisthesis of lumbar region Acquired spondylolisthesis | + + documented in this encounter"
--- OUTSIDE RECORDS SUMMARY | ~2019-10-27 | XMS | Encounter Summary ---
Demographics + + + | Address | [address] | | | [place] [address] | + + + | Home Phone [...] [place], | | | | | [place] [address] | | + + + + + | Kellen Briones | ECON | [place], [place] | | | | | [address] | | + + + + + Care Team Providers + +------+ + | Care Body Specialist Name | Role | Phone | + +------+ + | Anna De Guzman PA-C | PCP | | + +------+ + Reason for Visit + + + | Reason | Comments | + + + | Back Pain | Low back pain that radiates into the buttocks and down both legs | + + + Encounter Details +--------+---------+ + + + | Date | Type | Department | Care Team | Description | +--------+---------+ + + + | 05/20/ | Office | [facility] | Tk Ann | Lumbar radiculopathy | | 2013 | Visit | [address]SIATRY [address] | [address] | (Primary Dx); DDD | | | | [address] | [place] | (degenerative disc | | | | [place] | [address] | disease), lumbar; | | | | [address] | | Facet arthritis of | | | | [phone] | | lumbar region-Most | | | | | | severe at | | | | | | L4-L5,L5-S1; | | | | | | Cervical stenosis of | | | | | | spinal canal; DDD | | | | | | (degenerative disc | | | | | | disease), cervical; | | | | | | Spinal stenosis of | | | | | | lumbar region with | | | | | | [id number] | | | | | | level [...] + + + | Blood Pressure | - | - | | + + + + + | Pulse | - | - | | + [...] Weight | 70.8 kg (156 lb) | 05/20/2014 11:32 AM | | | | | PST | | + + + + + | Height | 160 cm (5' 3") | 05/20/2014 11:32 AM | | | | | PST | | + + + + + | Body Mass Index | 27.63 | 05/20/2014 11:32 AM | | | | | PST | | + + + + + documented in this encounter Patient Instructions Patient Instructions Britney Cortes, Master of Arts - 05/20/2014 11:48 AM PST Follow-up at the hospital thirty minutes before [...] of the procedure you must provide a six horse hitch driver to take you home. For all procedur es it is recommended that someone else drive you home. documented in this encounter Progress Notes Tk Ann MD - 05/20/2014 11:41 AM PST CHIEF COMPLAINT: Chief Complaint Patient presents with Back Pain Low back pain that radiates into the buttocks and down both legs HISTORY OF PRESENT ILLNESS: The patient is a 73 y.o. female being seen today in follow-up for complaints of low back pa in. The patient has been seen for this complaint in the past. Previously it was recommend ed that she receive bilateral L5/S1 TFESI for spinal stenosis. Her last injection was in [facility] of this year. She reports that the treatment was effective for approximately 2 tucker hs. The patient's symptoms originally began 3 years ago after slipping in her shower. Overall the patient reports that the symptoms are worsening in the last week or so. She rates the pain as 6 on scale of 1-10. She describes the pain as A twisting sensation to her low back and an aching pain into both legs, sharp at times. Her [...] and narcotic medications use; she currently uses [place], Flexeril and ga bapentin. Patient's medications, allergies, past medical, surgical, [...] (Adhesive & Tape) Rash REVIEW OF SYSTEMS: GENERALLY: No fever, chills, [...] No abnormal bleeding PHYSICAL EXAMINATION: Filed Vitals: 05/20/14 1132 PainSc: 5 Body mass index is 27.64 kg/(m^2). GENERAL: [...] has no apparent deficits with short or correction memory. She has appropriate fund of knowledge [...] majority of the pain to the lower lumb ar region and down the left leg. Lumbar facet loading was negative. Strength testing showe d 5/5 strength throughout the lower extremities. The patient was able to heel and toe walk without much difficulty. There was no redness, effusion, warmth or joint line tenderness in the knees or ankles. RADIOGRAPHIC REVIEW: The patient's imaging was reviewed in detail with the patient today during the visit. MRI from 2014 show spinal stenosis worse at L4/L5 with spondylolithesis L4-L5 and L5-S1, facet a rthritis, DDD. ASSESSMENT: 1. Lumbar radiculopathy 2. DDD (degenerative disc disease), lumbar 3. Facet arthritis of lumbar region-Most severe at L4-L5,L5-S1 4. Spinal stenosis of lumbar region with radiculopathy - L4-L5 level moderately severe 5. Cervical stenosis of spinal canal 6. DDD (degenerative disc disease), cervical PLAN: 1. The patient has benefited from prior epidural injections and is hoping to receive addit ional injections. I did feel that was appropriate and I offered to repeat the bilateral L5- S1 transforaminal epidural steroid injections. This will be performed by me in the near futu re. 2. I did not make any changes in her medications today. 3. The patient was advised to follow up with Dr. Mathew regarding the neck symptoms to discus s surgery. ELECTRONICALLY SIGNED BY: Tk Ann MD Scribed by: Britney Cortes MA for Dr. Tk Ann on 05/20/2014 documented in this encounter Plan of Treatment Not on filedocumented as of this encounter Results FL BAUTISTA Lumbar Transforaminal (06/08/2014 1:30 PM PST) + + | Specimen | + + | | + + + + + | Narrative | Performed At | + + + | 06/08/2014 Bilateral Transforaminal Epidural Steroid Injections | [facility] | | Diagnosis: Lumbar radiculopathy ICD-9 Code 724.4 Clementine [facility] | [facility] | | Annabella presents to the fluoroscopy suite for fluoroscopically-guided | [facility] | | bilateral L5-S1 transforaminal epidural [...] + + | Tk Ann MD - 06/08/2014 5:21 PM PST 06/08/2014Bilateral Transforaminal | | Epidural Steroid InjectionsDiagnosis: Lumbar [...] + + | Performing | Address | City/State/[facility] | Phone Number | | Organization | | | | + + + + + | [facility] | [address] 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
--- OUTSIDE RECORDS SUMMARY | ~2019-10-27 | XMS | Encounter Summary ---
Demographics + + + | Address | [address] | | | [place] [address] | + + + | Home Phone | | + + + | Preferred Language | Unknown | + + + | Marital Status | | + + + | Church Affiliation | 1041 | + + + | Race | Unknown | + + + | Ethnic Group | Unknown | + + + Author + + + | Author | [facility] | | | and [place] | + + + | Organization | [facility] | | | and [place] | + + + | Address | Unknown | + + + | Phone | Unavailable | + + + Support + + + + + | Name | Relationship | Address | Phone | + + + + + | Lucy Winchester | ECON | [place], | | | | | [place] [address] | | + + + + + | Kellen Briones | ECON | [place], [place] | | | | | [address] | | + + + + + Care Team Providers + +------+ + | Care Lead Tank Mechanic Name | Role | Phone | + +------+ + | Anna De Guzman PA-C | PCP | | + +------+ + Reason for Visit +--------+ + | Reason | Comments | +--------+ + | Other | Schedule injection | +--------+ + Encounter Details +--------+ + + + + | Date | Type | Department | Care Team | Description | +--------+ + + + + | 10/08/ | Telephone | [facility] | Tk Ann | Other (Schedule | | 2012 | | [address]SIATRY [address] | [address] | injection) | | | | [address] | [place], [place] | | | | | [place], [place] | [address] | | | | | [address] | | | | | | [phone] | | | +--------+ + + + [...]
--- OUTSIDE RECORDS SUMMARY | ~2019-10-27 | XMS | Encounter Summary ---
Demographics + + + | Address | [address] | | | [place] [address] | + + + | Home Phone | | + + + | Preferred Language | Unknown | + + + | Marital Status | | + + + | Faith Affiliation | 1041 | + + + | Race | Unknown | + + + | Ethnic Group | Unknown | + + + Author + + + | Author | [facility] | | | and [place] | + + + | Organization | [facility] | | | and [place] | + + + | Address | Unknown | + + + | Phone | Unavailable | + + + Support + + + + + | Name | Relationship | Address | Phone | + + + + + | Lucy Winchester | ECON | [place], | | | | | [place] [address] | | + + + + + | Kellen Briones | ECON | [place], [place] | | | | | [address] | | + + + + + Care Team Providers + +------+ + | Care Brake Engineer Name | Role | Phone | + +------+ + | Anna De Guzman PA-C | PCP | | + +------+ + Encounter Details +--------+ + + + + | Date | Type | Department | Care Team | Description | +--------+ + + + + | 03/05/ | Hospital | [facility] | IsakkaydenkaileeTk mathis | | | 2012 | Encounter | MED CTR XRAY [address] | [address] | | | | | [place] | [place], [place] | | | | | [place] [address] | [id number] | | | | | [phone] | | | +--------+ + + + [...]
--- OUTSIDE RECORDS SUMMARY | ~2019-10-27 | XMS | Encounter Summary ---
Demographics + + + | Address | [address] | | | [place] [address] | + + + | Home Phone | | + + + | Preferred Language | Unknown | + + + | Marital Status | | + + + | Restoration Affiliation | 1041 | + + + [...] [place], | | | | | [place] [address] | | + + + + + | Kellen Briones | ECON | [place], [place] | | | | | [address] | | + + + + + Care Team Providers + +------+ + | Care Window Unit Air Conditioning Mechanic Name | Role | Phone | + +------+ + | Anna De Guzman PA-C | PCP | | + +------+ + Encounter Details +--------+ + + + + | Date | Type | Department | Care Team | Description | +--------+ + + + + | 06/02/ | Hospital | [facility] | Isak[facility]kaileeTk mathis | | | 2012 | Encounter | MED CTR XRAY [address] | [address] | | | | | [place] | [place], [place] | | | | | [place] [address] | [address] | | | | | [phone] | | | +--------+ + + + [...] Performed At | + + + | [facility] | [place] | | Department [address] [facility] | [facility] | | [ rep [address]] [ rep [facility] | | [facility]] Signed | - IMAGING | | | | | Patient Name: CLEMENTINE WINCHESTER Physician: | | | : 1940 Age: 73 Sex: F Unit #: [id number] | | | Exam Date: 06/02/13 Location: [facility] | | | Report #: [id number] Page: | | | %(RAD)RES..mtdd.print.filter("pg") of %(RAD) | | | RES..mtdd.print.filter("tpg") | | | | | | Accession Number: [id number] | | | CERVICAL FACET INJECTIONS, 06/02/2013 CLINICAL HISTORY: | | | ICD-9 CODE IS 721.0, CERVICAL SPONDYLOSIS. | | | PROCEDURE: Ms. Clementine Winchester presents to the fluoroscopy suite for | [...] Transcribed | | | Date/Time: 06/03/2013 03:50 Civil Engineering Design Draftsperson: | | | <<Signature on File>> | | | Tk Monreal | | | MD Marissa06/04/13 0730 <Electronically signed by Tk Monreal | | | Marissa ALVARADO> Tk Ann MD 06/02/13 1813 | | | Civil Engineering Design Draftsperson: Zulema Ppxslpsamxfih18/01/14 0350 | | | | | + + + + + + + + | Performing | Address | City/State/Zipcode | Phone Number | | Organization | | | | + + + + + | [facility] [address] | [place] | [place] | [phone] | | [facility] | | [address] | | | - IMAGING | | | | + + + + + documented in this encounter Visit Diagnoses Not on filedocumented in this encounter
--- OUTSIDE RECORDS SUMMARY | ~2019-10-27 | XMS | Encounter Summary ---
Demographics + + + | Address | [address] | | | [place] [address] | + + + | Home Phone | | + + + | Preferred Language | Unknown | + + + | Marital Status | | + + + | Sabianism Affiliation | [id number] | + + + | Race | Unknown | + + + | Ethnic Group | Unknown | + + + Author + + + | Author | [facility] | | | and [place] | + + + | Organization | [facility] | | | and [place] | + + + | Address | Unknown | + + + | Phone | Unavailable | + + + Support + + + + + | Name | Relationship | Address | Phone | + + + + + | Lucy Winchester | ECON | [place], | | | | | [place] [address] | | + + + + + | Kellen Briones | ECON | [place] | | | | | [address] | | + + + + + Care Team Providers + +------+ + | [facility] Former Name | Role | Phone | + +------+ + | Barb Marte | THANG | | + +------+ + Encounter Details +--------+ + + + + | Date | Type | Department | Care Team | Description | +--------+ + + + + | 07/08/ | Preadmit | [facility] | Monster White MD | Preop testing | | 2019 | Visit | [facility] | [address] | (Primary Dx); 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[place], [place]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 | | | | [address]VD [place], [place] | [address] | without complication | | | | [address] | | ([facility]); Lumbar | | | | [phone] | | degenerative disc | | | | | | disease; | | | | | | Spondylolisthesis [...] + + + | Blood Pressure | 88/52 | 07/08/2019 3:52 PM | | | | | PST | | + + + + + | Pulse | 95 | 07/08/2019 3:52 PM | | | | | PST | | + + + + + | Temperature | - | - | | + + + + + | Respiratory Rate | - | - | | + + + + + | Oxygen Saturation | 98% | 07/08/2019 3:52 PM | | | | | PST | | + + + + + | Inhaled Oxygen | - | - | | | Concentration | | | | + + + + + | Weight | 58.1 kg (128 lb) | 07/08/2019 3:52 PM | | | | | PST | | + + + + + | Height | 160 cm (5' 3") | 07/08/2019 3:52 PM | | | | | PST | | + + + + + | Body Mass Index | 22.67 | 07/08/2019 3:52 PM | | | | | PST | | + + + + + documented in this encounter Patient Instructions Instructions Sheyla Rosenberg RN - 07/08/2019Formatting of this note might be different fr om the original. Outpatient Medications Marked as Taking for the 07/08/19 encounter (Preadmit Visit) with [facility] ROOM 2 Medication Sig Instructions albuterol (VENTOLIN HFA) 90 mcg/puff inhaler Take 1 puff by mouth as needed. TAKE day o procedure, if needed aspirin 81 mg EC tablet Take 81 mg by mouth Daily. HOLD prior to procedure. Take last d ose 07/15/2019 atorvaSTATin (LIPITOR) 40 mg tablet Take 40 mg by mouth nightly. TAKE night before proc edure Calcium 600-200 MG-UNIT TABS Take 1 tablet by mouth Daily. DO NOT TAKE day of procedure cyanocobalamin (VITAMIN B-12) 100 MCG TABS Take by mouth Daily. DO NOT TAKE day of pro cedure DULoxetine (CYMBALTA) [address] capsule 20 mg. TAKE day of procedure fentaNYL (DURAGESIC) 25 mcg/hr APPLY 1 PATCH TO THE SKIN Q 3 DAYS change as directed furosemide (LASIX) 20 mg tablet Take 20 mg by mouth. DO NOT TAKE day of procedure gabapentin (NEURONTIN) 100 mg capsule Take 100 mg by mouth 2 times daily. TAKE day of p rocedure levothyroxine (SYNTHROID) 25 mcg tablet Take 25 mcg by mouth Daily. TAKE day of procedu re lisinopril (PRINIVIL, ZESTRIL) 5 mg tablet Take 1 tablet by mouth Daily. DO NOT TAKE da y of procedure magnesium, as oxide, 250 MG tablet Take 250 mg by mouth Daily. DO NOT TAKE day of proce dure metFORMIN (GLUCOPHAGE) 500 mg tablet Take 500 mg by mouth nightly. DO NOT TAKE day of p rocedure nitroglycerin (NITROSTAT) 0.[address] 0.4 mg under the tongue every 5 minute s as needed. TAKE day of procedure, if needed omeprazole (PRILOSEC) 40 MG capsule Take 40 mg by mouth Daily. TAKE day of procedure potassium chloride (KLOR-CON) 10 MEQ ER tablet Take 10 mEq by mouth. DO NOT TAKE day of procedure Postoperative Lumbar Spine Instructions Do not bend forward from the waist. Do not twist at the waist. Maintain a straight, milit shawn bearing. Lift nothing heavier than 10 lbs. You may lie on your side with a pillow betw een your legs. Apply no creams or medications to the incision unless specifically ordered by your surgeon. You may remove your dressing on day 2 or 3 post-op. If the incision site is dry, leave it open to the air. If the incision is not dry, change the dressing daily. Wear your white Marshall hose (stockings) until your follow-up visit. You may take them off to shower or wash them. These, along with a good walking regimen, are your best defense agains t blood clots in the legs. Walk, walk, walk! Walk at least every hour while awake. Walking is better than sitting up : sitting up is better than lying down. You will be tired and will fatigue easily for the f irst week. Reclining is fine. All narcotic medications may make you nauseated, dizzy, and itchy, and may cause headaches. They are virtually guaranteed to make you constipated. Drink lots of fluids and take an o cpl-[id number] stool softener (with or without laxatives) if you become constipated. The hermann will be removed at your follow-up visit. This is a quick and virtually painles s experience. Your staple site will likely become itchy and slightly reddened as they becom e ready to come out. You incision, of course, will be somewhat swollen and tender for the first week. There blas uld be no drainage from the wound after the first 24 hours. If you observe yellow, green, o r purulent drainage; have a fever greater than 100.5 degrees; or your wound becomes inflamed , call your doctor. Bruising is normal. You may shower normally, as soon as post-op day 1. Gently pat the incision dry. Please do not soak in a bathtub, hot tub, or swimming pool. You post-op symptoms will remain for some time after surgery. It may take six months for n umbness, tingling, or burning sensations to disappear. It can take up to two years to fully regain your strength. You will have "good days" and "bad days," do not be alarmed if your symptoms recur occasionally. You may drive after you have been free from pain medication for at least 8 hours. You will wear your brace for 6-8 weeks post-op, as determined by your provider. You may return to work if your work environment freely permits strict adherence to the abov e restrictions (no bending, twisting or lifting over 10 pounds). You may want to start with half days. You may engage in your normal activities, including sex, if you remain within the above res trictions. Your doctor will discuss further restrictions and instructions at your follow-up visit (usually one week post-op). Please call the office when you get home if you do not already have a follow-up appointment . Additionally, please feel free to give us a call with any questions or concerns you may h ave. For smokers: Congratulations! You are now an ex-smoker! Smokers have a wound infection rat e 30 times higher than non-smokers. Nicotine in any form (patches, gum, etc.) severely comp romises the circulation to your wound. This results in slowed healing, and has been documen marshall to cause chronic pain. Please, do not even think about picking up the first cigarette: a failed fusion is a horrible experience with drastic consequences. It is completely in yo ur hands. This is a great opportunity to make a tremendous and far-reaching health decision , which will profoundly affect the rest of your life; do not throw it away lightly. Monster White M.D. [facility] [address] [place] [id number] documented in this encounter Plan of Treatment Not on filedocumented as of this encounter Procedures + +--------+ + + + | Procedure Name | Priori | Date/Time | Associated Diagnosis | Comments | | | ty | | | | + +--------+ + + + | MRSA NAAT | Routin | 07/08/2019 | Type 1 diabetes | Results for this | | | e | 4:41 PM | mellitus without | procedure are in the | | | | PST | complication (HCC) | results section. | | | | | Lumbar degenerative | | | | | | disc disease | | | | | | 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 | | + +--------+ + + + | TYPE AND SCREEN | Routin | 07/08/2019 | Type 1 diabetes | Results for this | | | e | 4:40 PM | mellitus without | procedure are in the | | | | PST | complication ([facility]) | results section. | | | | | Lumbar degenerative | | | | | | disc disease | | | | | | 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 | | + +--------+ + + + | PTT | Routin | 07/08/2019 | Type 1 diabetes | Results for this | | | e | 4:39 PM | mellitus without | procedure are in the | | | | PST | complication ([facility]) | results section. | | | | | Lumbar degenerative | | | | | | disc disease | | | | | | 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 | | + +--------+ + + + | PROTIME INR | Routin | 07/08/2019 | Type 1 diabetes | Results for this | | | e | 4:39 PM | mellitus without | procedure are in the | | | | PST | complication ([facility]) | results section. | | | | | Lumbar degenerative | | | | | | disc disease | | | | | | 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 | | + +--------+ + + + | CBC WITH | Routin | 07/08/2019 | Type 1 diabetes | Results for this | | DIFFERENTIAL | e | 4:39 PM | mellitus without | procedure are in the | | | | PST | complication ([facility]) | results section. | | | | | Lumbar degenerative | | | | | | disc disease | | | | | | 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 | | + +--------+ + + + | HEMOGLOBIN A1C | Routin | 07/08/2019 | Type 1 diabetes | Results for this | | | e | 4:39 PM | mellitus without | procedure are in the | | | | PST | complication ([facility]) | results section. | | | | | Lumbar degenerative | | | | | | disc disease | | | | | | 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 | | + +--------+ + + + | COMPREHENSIVE | Routin | 07/08/2019 | Type 1 diabetes | Results for this | | METABOLIC PANEL | e | 4:39 PM | mellitus without | procedure are in the | | | | PST | complication (HCC) | results section. | | | | | Lumbar degenerative | | | | | | disc disease | | | | | | 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 | | + +--------+ + + + | XR CHEST PA AND | Routin | 07/08/2019 | | Results for this | | LATERAL | e | 4:34 PM | | procedure are in the | | | | PST | | results section. | + +--------+ + + + documented in this encounter Results MRSA NAAT (07/08/2019 4:41 PM PST) + + + + + + | Component | Value | Ref Range | Performed | Pathologist | | | | | At | Signature | + + + + + + | SOURCE: | NARES(NOSE) | | [facility] | | | | | | LABORATORY | | + + + + + + | Result | NEGATIVEComment: Testing | MRSNEG | [facility] | | | | performed at [facility];[address] | LABORATORY | | | | [address];[place], [place] | | | | | | [address] | | | | + + + + + + + + | Specimen | + + | Tissue - Both | | anterior nares (body | | structure) | + + + + + + + | Performing | Address | City/State/Zipcode | Phone Number | | Organization | | | | + + + + + | [facility] | [address] | [place] [address] | [phone] | + + + + + Type and Screen (07/08/2019 4:40 PM PST) + + + + + + | Component | Value | Ref Range | Performed | Pathologist | | | | | At | Signature | + + + + + + | ABO Rh | A POSITIVE | | [facility] | | | | | | LABORATORY | | + + + + + + | Antibody | NEGATIVE | | [facility] | | | Screen | | | LABORATORY | | + + + + + + | Antibody | Testing performed at | | [facility] | | | Screen | [facility];[address] | LABORATORY | | | | [address];[place] [address] | | | | + + + + + + + + | Specimen | + + | Blood | + + + + + + + | Performing | Address | City/State/Zipcode | Phone Number | | Organization | | | | + + + + + | [facility] | [address] | [place] [address] | [phone] | + + + + + CBC with Differential (07/08/2019 4:39 PM PST) + + + + + + | Component | Value | Ref Range | Performed | Pathologist | | | | | At | Signature | + + + + + + | WBC | 8.25 | 3.80 - 11.00 | [facility] | | | | | K/uL | LABORATORY | | + + + + + + | RBC | 3.63 (L) | 3.70 - 5.10 | [facility] | | | | | M/uL | LABORATORY | | + + + + + + | Hemoglobin | 11.4 | 11.3 - 15.5 | [facility] | | | | | g/dL | LABORATORY | | + + + + + + | Hematocrit | 35.3 | 34.0 - 46.0 % | [facility] | | | | | | LABORATORY | | + + + + + + | MCV | 97.5 | 80.0 - 100.0 fl | [facility] | | | | | | LABORATORY | | + + + + + + | MCH | 31.4 | 27.0 - 34.0 pg | [facility] | | | | | | LABORATORY | | + + + + + + | MCHC | 32.2 | 32.0 - 35.5 | [facility] | | | | | g/dL | LABORATORY | | + + + + + + | RDW-SD | 45.9 | 37 - 53 fl | [facility] | | | | | | LABORATORY | | + + + + + + | Platelet | 286 | 150 - 400 K/uL | [facility] | | | Count | | | LABORATORY | | + + + + + + | MPV | 9.2 | fl | [facility] | | | | | | LABORATORY | | + + + + + + | Diff Type | AUTOMATED | | [facility] | | | | | | LABORATORY | | + + + + + + | % | 63.84 | % | [facility] | | | Neutrophils | | | LABORATORY | | + + + + + + | % | 29.68 | % | [facility] | | | Lymphocytes | | | LABORATORY | | + + + + + + | Monocyte % | 5.71 | % | [facility] | | | | | | LABORATORY | | + + + + + + | Eosinophils | 0.48 | % | [facility] | | | % | | | LABORATORY | | + + + + + + | Basophils % | 0.29 | % | [facility] | | | | | | LABORATORY | | + + + + + + | Neutrophils | 5.27 | 1.90 - 7.40 | [facility] | | | , Absolute | | K/uL | LABORATORY | | + + + + + + | Absolute | 2.45 | 1.00 - 3.90 | [facility] | | | Lymphocytes | | K/uL | LABORATORY | | + + + + + + | Absolute | 0.47 | 0.00 - 0.80 | [facility] | | | Monocytes | | K/uL | LABORATORY | | + + + + + + | Eosinophils | 0.04 | 0.00 - 0.50 | [facility] | | | , Absolute | | K/uL | LABORATORY | | + + + + + + | Basophils, | 0.02Comment: Testing | 0.00 - 0.10 | [facility] | | | Absolute | performed at [facility], [address] | K[address] | LABORATORY | | | | [place], | | | | | | [place] [address] | | | | + + + + + + + + | Specimen | + + | Blood | + + + + + + + | Performing | Address | City/State/Zipcode | Phone Number | | Organization | | | | + + + + + | [facility] | [address] | [place] [address] | [phone] | + + + + + Comprehensive Metabolic Panel (07/08/2019 4:39 PM PST) + + + + + + | Component | Value | Ref Range | Performed | Pathologist | | | | | At | Signature | + + + + + + | Na | 135 | 135 - 145 | [facility] | | | | | mmol/L | LABORATORY | | + + + + + + | K | 5.2 (H) | 3.5 - 4.9 | [facility] | | | | | mmol/L | LABORATORY | | + + + + + + | Cl | 100 | 99 - 109 mmol/L | [facility] | | | | | | LABORATORY | | + + + + + + | CO2 | 25 | 23 - 32 mmol/L | [facility] | | | | | | LABORATORY | | + + + + + + | Anion Gap | 15 | 5 - 20 mmol/L | [facility] | | | | | | LABORATORY | | + + + + + + | Glucose | 106 (H) | 65 - 99 mg/dL | [facility] | | | | | | LABORATORY | | + + + + + + | BUN | 30 (H) | 8 - 25 mg/dL | [facility] | | | | | | LABORATORY | | + + + + + + | Creatinine | 1.8 (H) | 0.50 - 1.00 | [facility] | | | | | mg/dL | LABORATORY | | + + + + + + | BUN/Creatin | 17 | | [facility] | | | ine Ratio | | | LABORATORY | | + + + + + + | Calcium | 9.9 | 8.5 - 10.5 | [facility] | | | | | mg/dL | LABORATORY | | + + + + + + | Protein, | 6.7 | 6.3 - 8.2 g/dL | [facility] | | | Total | | | LABORATORY | | + + + + + + | Albumin | 2.7 (L) | 3.3 - 4.8 g/dL | [facility] | | | | | | LABORATORY | | + + + + + + | Globulin | 4.0 | 1.3 - 4.9 g/dL | [facility] | | | | | | LABORATORY | | + + + + + + | A/G Ratio | 0.7 (L) | 1.0 - 2.4 | [facility] | | | | | | LABORATORY | | + + + + + + | BILIRUBIN, | 0.4 | 0.1 - 1.5 mg/dL | [facility] | | | TOTAL | | | LABORATORY | | + + + + + + | ALK PHOS | 86 | 35 - 115 U/L | [facility] | | | | | | LABORATORY | | + + + + + + | AST | 12 | 10 - 45 U/L | [facility] | | | | | | [facility] | | + + + + + + | ALT | 14 | 10 - 65 U/L | [facility] | | | | | | [facility]AT[facility] | | + + + + + + | Estimated | 27 (L)Comment: GFR <60: | >60 | [facility] | | | GFR | CHRONIC KIDNEY DISEASE, | mL/min/1.73m2 | LABORATORY | | | | IF FOUND OVER A 3 MONTH | | | | | | PERIOD.GFR <15: KIDNEY | | | | | | FAILURE.FOR | | | | | | AMERICANS, MULTIPLY THE | | | | | | CALCULATED GFR BY | | | | | | 1.210.This eGFR is | | | | | | calculated using the | | | | | | MDRD IDMS traceable | | | | | | equation.Testing | | | | | | performed at [facility], [address] | | | | | [facility], | | | | | | [place] [address] | | | | + + + + + + + + | Specimen | + + | Blood | + + + + + + + | Performing | Address | City/State/Zipcode | Phone Number | | Organization | | | | + + + + + | [facility] | [address] | [place] [address] | [phone] | + + + + + Protime INR (07/08/2019 4:39 PM PST) + + + + + + | Component | Value | Ref Range | Performed | Pathologist | | | | | At | Signature | + + + + + + | INR | 1.0Comment: REFERENCE | | [facility] | | | | RANGE:0.9 - 1.2 | | LABORATORY | | | | NON-ANTICOAGULATED2.0 | | | | | | - 3.0 ALL OTHER | | | | | | THERAPEUTIC | | | | | | INDICATIONS2.5 - 3.5 | | | | | | MECHANICAL HEART VALVES, | | | | | | RECURRENT OR SYSTEMIC | | | | | | EMBOLISMTesting | | | | | | performed at [facility];[address] | [address] [facility];[place], [place] | | | | | | [address] | | | | + + + + + + + + | Specimen | + + | Blood | + + + + + + + | Performing | Address | City/State/Zipcode | Phone Number | | Organization | | | | + + + + + | [facility] | [address] | [place] [address] | [phone] | + + + + + PTT (07/08/2019 4:39 PM PST) + + + + + + | Component | Value | Ref Range | Performed | Pathologist | | | | | At | Signature | + + + + + + | PTT | 30Comment: Testing | 23 - 32 seconds | [facility] | | | | performed at [facility];[address] | | LABORATORY | | | | [address];[place], [place] | | | | | | [address] | | | | + + + + + + + + | Specimen | + + | Blood | + + + + + + + | Performing | Address | City/State/Zipcode | Phone Number | | Organization | | | | + + + + + | [facility] | [address] | [place] [address] | [phone] | + + + + + Hemoglobin A1C (07/08/2019 4:39 PM PST) + + + + + + | Component | Value | Ref Range | Performed | Pathologist | | | | | At | Signature | + + + + + + | Hemoglobin | 6.3 (H)Comment: HbA1c | 4.0 - 6.0 % | [facility] | | | A1c | method is certified by | | LABORATORY | | | | NGSP and traceable to | | | | | | the DCCT reference | | | | | | method.ADA guidelines | | | | | | indicate: | | | | | | Prediabetes: 5.7 - 6.4 | | | | | | Diabetes: >6.4 | | | | | | Glycemic control for | | | | | | adults with diabetes: | | | | | | <7.0Effective 06/18/2018: | | | | | | Note New Method | | | | + + + + + + | Estimated | 134Comment: Estimated | <154 mg/dL | [facility] | | | Average | Average Glucose | | LABORATORY | | | Glucose | calculated from | | | | | | hemoglobin A1c by use of | | | | | | the ADArecommended | | | | | | formula.Testing | | | | | | performed at [facility], [address] | | | | | [facility], | | | | | | [place] [address] | | | | + + + + + + + + | Specimen | + + | Blood | + + + + + + + | Performing | Address | City/State/Zipcode | Phone Number | | Organization | | | | + + + + + | [facility] | [address] | [place] [address] | [phone] | + + + + + XR Chest PA and Lateral (07/08/2019 4:34 PM PST) + + | Specimen | + + | | + + + + + | Impressions | Performed At | + + + | 1. No acute cardiopulmonary abnormality. Signed by: | [facility] | | Linda Metz Isaac Sign Date/Time: 07/09/2019 8:15 AM | | + + + + + + | Narrative | Performed At | + + + | CHEST PA AND LATERAL CLINICAL INFORMATION: Pre operative | [facility] | | examination. COMPARISON: XR CHEST 1 VIEW (01/30/2018); XR CHEST 1 | | | VIEW (01/26/2018); ECHO OUTSIDE INTERPRETATION (08/20/2017); | | | FINDINGS: Heart, lungs and vessels normal. No pneumothorax, pleural | | | effusion or adenopathy. No significant bone abnormality. Increased | | | density of the right hemithorax due to overlying breast. Lower | | | cervical spine ACDF hardware, partially visualized, no apparent | | | complication. Midline sternal wires are intact. Mild | | | degeneration of the lower thoracic spine. | | + + + + + | Procedure Note | + + | Howard, Rad Results In - 07/09/2019 8:18 AM PST | | CHEST PA AND LATERAL | | | | CLINICAL INFORMATION: | | Pre operative examination. | | | | COMPARISON: | | XR CHEST 1 VIEW (01/30/2018); XR CHEST 1 VIEW (01/26/2018); ECHO OUTSIDE | | INTERPRETATION (08/20/2017); | | | | FINDINGS: | | Heart, lungs and vessels normal. No pneumothorax, pleural effusion or | | adenopathy. No significant bone abnormality. Increased density of the | | right hemithorax due to overlying breast. | | | | Lower cervical spine ACDF hardware, partially visualized, no apparent | | complication. Midline sternal wires are intact. | | | | Mild degeneration of the lower thoracic spine. | | | | IMPRESSION: | | 1. No acute cardiopulmonary abnormality. | | | | | | | | | | Signed by: Linda Metz Isaac | | Sign Date/Time: 07/09/2019 8:15 AM | + + + +---------+ + + | Performing | Address | City/State/Zipcode | Phone Number | | Organization | | | | + +---------+ + + | [facility] | | | | + +---------+ + + ECG 12 lead (07/08/2019 4:01 PM PST) + + + + + + | Component | Value | Ref Range | Performed | Pathologist | | | | | At | Signature | + + + + + + | VENTRICULAR | 94 | BPM | [facility] | | | RATE EKG | | | | | + + + + + + | ATRIAL RATE | 94 | BPM | [facility] | | + + + + + + | P-R | 146 | ms | [facility] | | | INTERVAL | | | | | + + + + + + | QRS | 96 | ms | [facility] | | | DURATION | | | | | + + + + + + | Q-T | 336 | ms | [facility] | | | INTERVAL | | | | | + + + + + + | Q-T | 420 | ms | [facility] | | | INTERVAL | | | | | | (CORRECTED) | | | | | + + + + + + | P WAVE AXIS | 45 | degrees | [facility] | | + + + + + + | QRS AXIS | -33 | degrees | [facility] | | + + + + + + | T AXIS | 2 | degrees | [facility] | | + + + + + + | INTERPRETAT | Normal sinus rhythmLeft | | [facility] | | | ION TEXT | axis | | | | | | deviationAnterolateral | | | | | | infarct (cited on or | | | | | | before | | | | | | 08-JUL-2019)Inferior | | | | | | infarct , age | | | | | | undeterminedAbnormal | | | | | | ECGWhen compared with | | | | | | ECG of 18-DEC-2018 | | | | | | 15:45,No significant | | | | | | change was | | | | | | foundConfirmed by RAJI | | | | | | VARUN ALVARADO ([id number]) on | | | | | | 07/09/2019 10:02:31 AM | | | | + + + + + + + + | Specimen | + + | | + + + + + | Narrative | Performed At | + + + | | | + + + + +---------+ + + | Performing | Address | City/State/Zipcode | Phone Number | | Organization | | | | + +---------+ + + | [facility] | | | | + +---------+ + + documented in this encounter Visit Diagnoses + + | Diagnosis | + + | Preop testing - Primary Preoperative examination, unspecified | + + | Type 1 diabetes mellitus without complication (HCC) Type I (juvenile type) diabetes | | mellitus without mention of complication, not stated as uncontrolled | + + | Lumbar degenerative disc disease Degeneration of lumbar or lumbosacral intervertebral | | disc | + + | Spondylolisthesis of lumbar region Acquired spondylolisthesis | + + documented in this encounter
--- OUTSIDE RECORDS SUMMARY | ~2019-10-27 | XMS | Encounter Summary ---
Demographics + + + | Address | [address] | | | [place] [address] | + + + | Home Phone | | + + + | Preferred Language | Unknown | + + + | Marital Status | | + + + | Jain Affiliation | 1041 | + + + | Race | Unknown | + + + | Ethnic Group | Unknown | + + + Author + + + | Author | [facility] | | | and [place] | + + + | Organization | [facility] | | [...] [place], | | | | | [place] [address] | | + + + + + | Kellen Briones | ECON | [place] | | | | | [address] | | + + + + + Care Team Providers + +------+ + | Care Commissary Superintendent Name | Role | Phone | + +------+ + | Barb Marte | PCP | | + +------+ + Encounter Details +--------+ + + + + | Date | Type | Department | Care Team | Description | +--------+ + + + + | 01/31/ | Hospital | [facility] GENER[facility] IP | Conversion | Pain | | 2018 | Encounter | CONVERSION [address] | Transaction, | | | | | [address] | Provider Unknown | | | | | [place], [place] | [phone] | | | | | [address] | | | | | | [phone] | | | +--------+ + + + [...] CT HEAD WO CONTRAST | Routin | 01/26/2018 | | Results for this | | | e | 3:52 PM | | procedure are in the | | | | PDT | | results section. | + +--------+ + + + documented in this encounter Results CT Head wo Contrast (01/26/2018 3:52 PM PDT) + + | Specimen [...]
--- OUTSIDE RECORDS SUMMARY | ~2019-10-27 | XMS | Encounter Summary ---
Demographics + + + | Address | [address] | | | [place] [address] | + + + | Home Phone | | + + + | Preferred Language | Unknown | + + + | Marital Status | | + + + | Episcopal Affiliation | 1041 | + + + | Race | Unknown | + + + | Ethnic Group | Unknown | + + + Author + + + | Author | [facility] | | | and [place] | + + + | Organization | [facility] | | | and [place] | + + + | Address | Unknown | + + + | Phone | Unavailable | + + + Support + + + + + | Name | Relationship | Address | Phone | + + + + + | Lucy Winchester | ECON | [place], | | | | | [place] [address] | | + + + + + | Kellen Briones | ECON | [place], [place] | | | | | [address] | | + + + + + Care Team Providers + +------+ + | Care Homeopathic Doctor Name | Role | Phone | + [...] | | | | | Lumbar | NARESH Villareal-C | [address] | | | | | radiculopath | [address] | [place], | | | | | y | [address] | [place] | | | | | Procedures | [address] | [address] | | | | | MRI Lumbar | [place], | Phone: | | | | | Spine wo | [place] [address] | [phone] | | | | | Contrast | Phone: | Fax: | | | | | | [phone] | [phone] | | | | | | Fax: | | | | | | | [phone] | | +--------+--------+ + + + + Reason for Visit Diagnostic/Screening (Routine) +--------+--------+ [...] Lumbar | AYAAN Villareal | [address] | | | | | radiculopath | [address] | [place], | | | | | y | [address] | [place] | | | | | Procedures | [address] | [address] | | | | | MRI Lumbar | [place], | Phone: | | | | | Spine wo | [place] [address] | [phone] | | | | | Contrast | Phone: | Fax: | | | | | | [phone] | [phone] | | | | | | Fax: | | | | | | | [phone] | | +--------+--------+ + + + + Encounter Details +--------+ + + + + | Date | Type | Department | Care Team | Description | +--------+ + + + + | 01/22/ | Hospital | [facility] | Mono Diaz, | Lumbar radiculopathy | | 2018 | Encounter | MED CTR MRI [address] | PA-C [address] | | | | | [place], | [address] [place] | | | | | [place] [address] | [place] [address] | | | | | [phone] | [phone] | | | | | | | [...] MRI LUMBAR SPINE WO | Routin | 01/22/2018 | Lumbar | Results for this | | CONTRAST | e | 1:28 PM | radiculopathy | procedure are in the | | | | PDT | | results section. | + +--------+ + + + documented in this encounter Results MRI Lumbar Spine wo Contrast (01/22/2018 1:28 PM PDT) + + | Specimen | + + | | + + + + + | Narrative | Performed At | + + + | UNENHANCED MRI LUMBAR SPINE 01/22/2018 1:26 PM CLINICAL HISTORY: | [facility] | | Increased frequency and falls, leg weakness, hx lumbar stenosis | | | COMPARISON: MRI September 2013 and more remote imaging TECHNIQUE: | | | The following 1.5T MR sequences of the lumbar spine were obtained: | | | 1. Axial and sagittal T1. 2. Axial, sagittal, and coronal T2. | | | 3. Sagittal STIR. FINDINGS: Five non rib-bearing, lumbar type | | | vertebrae are suggested on the coronal sequence. Leftward lumbar | | | curvature centered at L1-2 persists. A benign hemangioma is again | | | demonstrated in the L2 vertebral body. Marrow signal is otherwise | | | normal. Vertebral height is maintained without evident fracture or [...] narrow the right foramen to a greater degree. | | | There is encroachment on the exiting right L1 nerve root and disc | | | also approximates the descending L2 nerve roots [...] the descending S1 nerve roots. IMPRESSION - 1. | | | SIMILAR DEGENERATIVE DISC DISEASE, FORAMINAL STENOSIS AND EXITING | | | AND DESCENDING NERVE ROOT ENCROACHMENT AT L5-S1 COMPARED WITH MRI OF | | | SEPTEMBER 2013. 2. 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 3. SIMILAR DEGENERATIVE DISC | | | DISEASE AND MINIMAL ANTEROLISTHESIS AT L3-4 WITH MODERATE TO SEVERE | | | CENTRAL CANAL STENOSIS, MILD TO MODERATE LEFT FORAMINAL STENOSIS AND | | | ENCROACHMENT ON THE LEFT L3 NERVE ROOT. 4. 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 5. 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 6. 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 7. LEVOSCOLIOSIS AND MULTILEVEL FACET | | | ARTHROPATHY. Dictated and Signed by: Papito Coffman MD | | | Electronically signed: 01/22/2018 3:53 PM | | + + + + + | Procedure Note | + + | Howard, Rad Results In - 01/22/2018 3:56 PM PDT UNENHANCED MRI LUMBAR SPINE 01/22/2018 | | 1:26 PMCLINICAL HISTORY: Increased frequency and falls, leg [...] L4 nerve root along with the descending [id number] | | roots within the subarticular recesses.L5-S1: Moderate to severe disc space narrowing | | and generalized disc osteophytecomplex combine with dorsal ligamentous and facet | | hypertrophy to moderatelynarrow the foramina to a similar degree, with encroachment on | | the exiting [id number] roots along with the descending S1 nerve [...] DISEASE AND | | MILD ANTEROLISTHESIS AT [id number] MILD STENOSIS.7. LEVOSCOLIOSIS AND MULTILEVEL FACET | [...] + + | Performing | Address | City/State/[facility] | Phone Number | | Organization | | | | + +---------+ + + | [facility] | | | | + +---------+ + + documented in this encounter Visit Diagnoses + + | Diagnosis | + + | Lumbar radiculopathy Thoracic or lumbosacral neuritis or radiculitis, unspecified | + + documented in this encounter"
--- OUTSIDE RECORDS SUMMARY | ~2019-10-27 | XMS | Encounter Summary ---
Demographics + + + | Address | [address] | | | [place] [address] | + + + | Home Phone | | + + + | Preferred Language | Unknown | + + + | Marital Status | | + + + | Baptism Affiliation | 1041 | + + + | Race | Unknown | + + + | Ethnic Group | Unknown | + + + Author + + + | Author | [facility] | | | and [place] | + + + | Organization | [facility] | | | and [place] | + + + | Address | Unknown | + + + | Phone | Unavailable | + + + Support + + + + + | Name | Relationship | Address | Phone | + + + + + | Lucy Winchester | ECON | [place], | | | | | [place] [address] | | + + + + + | Kellen Briones | ECON | [place], [place] | | | | | [address] | | + + + + + Care Team Providers + +------+ + | Care Grooving Machine Operator Name | Role | Phone [...] + + | 08/27/ | Telephone | [facility] | Tk Ann | Other | | 2012 | | PHYSIATRY [address] | TMD [address] | | | | [address] [facility] [address] | [address] [place], [place] | | | | | [place], [place] | [address] | | | | | [address] | | | | | | [phone] | | | +--------+ + + + [...]
--- OUTSIDE RECORDS SUMMARY | ~2019-10-27 | XMS | Encounter Summary ---
Demographics + + + | Address | [address] | | | [place] [address] | + + + | Home Phone | | + + + | Preferred Language | Unknown | + + + | Marital Status | | + + + | Uatsdin Affiliation | 1041 | + + + | Race | Unknown | + + + | Ethnic Group | Unknown | + + + Author + + + | Author | [facility] | | | and [place] | + + + | Organization | [facility] | | [...] [place], | | | | | [place] [address] | | + + + + + | Kellen Briones | ECON | [place], [place] | | | | | [address] | | + + + + + Care Team Providers + +------+ + | Care Debt Management Counselor Name | Role | Phone | + [...] Thoracic or | [place], | [address] | | | | | lumbosacral | Tk Monreal MD | [place], | | | | | neuritis or | [address] | [place] | | | | | | [place] | [address] | | | | | radiculitis, | [place], [place] | Phone: | | | | | unspecified | [address] | [phone] | | | | | Procedures | Phone: | Fax: | | | | | [place] INJECT | [phone] | [phone] | | | | | ANES/STEROID | Fax: | | | | | | FORAMEN | [phone] | | | | | | LUMBAR/SACRA | | | | | | | L W IMG | | | | | | | GUIDE ,1 | | | | | | | LEVEL NV | | | | | | | TRIAMCINOLON | | | | | | | E ACET INJ | | | | | | | NOS, 10 MG | | | | | | | Bilateral | | | | | | | L5-S1 | | | | | | | TFESI-appt | | | | | | | 02/22 | | | +--------+--------+ + + + + Encounter Details +--------+ + + + + | Date | Type | Department | Care Team | Description | +--------+ + + + + | 02/22/ | Hospital | [facility] | [place], | Spinal stenosis of | | 2014 | Encounter | MED CTR XRAY [address] | AYAAN [address] | lumbar region with | | | | [place] | [facility] [address] | [id number] | | | | [place] [address] | [place] [address] | level moderately | | | | [phone] | [phone] | severe; | | | | | | Spondylolisthesis of | | | | | Extrusion Supervisor [facility] | lumbar region; | | | | | [place] | Lumbar | | | | | | radiculopathy; DDD | | | | | | (degenerative disc | | | | | | disease), lumbar | +--------+ + + + + Social [...] +---------+ + + | Blood Pressure | 120/77 | 02/22/2015 1:10 PM | | | | | PDT | | + +---------+ + + | Pulse | 76 | 02/22/2015 1:10 PM | | | | | PDT [...] | FL EPIDURAL STEROID | Routin | 02/22/2015 | Spinal stenosis of | Results for this | | INJECTION LUMBAR | e | 1:02 PM | lumbar region with | procedure are in the | | TRANSFORAMINAL | | PDT | [id number] | results section. | | | | | level moderately | | | | | | severe | | | | | | 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 | | | | | | Lumbar radiculopathy | | | | | | DDD (degenerative | | | | | | disc disease), | | | | | | lumbar | | + +--------+ + + + documented in this encounter Results FL BAUTISTA Lumbar Transforaminal (02/22/2015 1:02 PM PDT) + + | Specimen | + + | | + + + + + | Narrative | Performed At | + + + | 02/22/2015 Bilateral Transforaminal Epidural Steroid Injections | MEL[facility] | | Diagnosis: Lumbar radiculopathy ICD-9 Code 724.4 Clementine Phoenix | [facility] | | Annabella presents to the fluoroscopy suite for fluoroscopically-guided | [facility] | | bilateral L5-S1 transforaminal [...] ST. | [address] | [place] | [phone] | | [facility] | | [address] | | | - IMAGING | | | | + + + + + documented in this encounter Visit Diagnoses + + | Diagnosis | + + | Spinal stenosis of lumbar region with [id number] level moderately severe | | Spinal stenosis, lumbar region, without neurogenic claudication | + + | Spondylolisthesis of lumbar region Acquired spondylolisthesis | + + | Lumbar radiculopathy Thoracic or lumbosacral neuritis or radiculitis, unspecified | + + | DDD (degenerative disc disease), lumbar Degeneration of lumbar or lumbosacral | | intervertebral disc | + + documented in this encounter Administered Medications + +--------+ +------+------+------+ | Medication Order | MAR | Action | Dose | Rate | Site | | | Action | Date | | | | + +--------+ +------+------+------+ | betamethasone (CELESTONE | Given | 02/23/20 | 9 mg | | | | SOLUSPAN) injection 9 mg 9 mg, | | 15 1:02 | | | | | Other, EVERY 24 HOURS INTERVAL, | | PM PDT | | | | | First dose on Sat02/22/15 at | | | | | | | 1330, For 2 doses, Shake well. | | | | | | | Not for IV use., Radiology | | | | | | + +--------+ +------+------+------+ +---+---+ | | | +---+---+ + +-------+ +-------+---+---+ | iohexol (OMNIPAQUE 300) 300 | Given | 02/23/20 | 2 mLs | | | | mg/mL injection 2 mL 2 mL, | | 15 1:00 | | | | | Other, ONCE PRN, Other, Starting | | PM PDT | | | | | Sat02/22/15 at 1301, For 1 dose, | | | | | | | Radiology | | | | | | + +-------+ +-------+---+---+ +---+---+ | | | +---+---+ + +-------+ +-------+---+ + | lidocaine 1% injection 5 mL 5 | Given | 02/23/20 | 5 mLs | | Other | | mL, Intradermal, ONCE, Tue | | 15 12:55 | | | (Comment | | 02/22/15 at 1330, For 1 dose, | | PM PDT | | | ) | | Radiology | | | | | | + +-------+ +-------+---+ + +---+---+ | | | +---+---+ + +-------+ +-------+---+---+ | sodium bicarbonate (NEUT) 4% | Given | 02/23/20 | 4 mLs | | | | injection 4 mL 4 mL, | | 15 12:55 | | | | | Infiltration, ONCE, 02/22/15 | | PM PDT | | | | | at 1330, For 1 dose, Use for | | | | | | | addition to other parenteral | | | | | | | solutions., Radiology | | | | | | + +-------+ +-------+---+---+ +---+---+ | | | +---+---+ documented in this encounter"
--- OUTSIDE RECORDS SUMMARY | ~2019-10-27 | XMS | Encounter Summary ---
Demographics + + + | Address | [address] | | | [place] [address] | + + + | Home Phone | | + + + | Preferred Language | Unknown | + + + | Marital Status | | + + + | Presybeterian Affiliation | 1041 | + + + | Race | Unknown | + + + | Ethnic Group | Unknown | + + + Author + + + | Author | [facility] | | | and [place] | + + + | Organization | [facility] | [...] [place], | | | | | [place] [address] | | + + + + + | Kellen Briones | ECON | [place], [place] | | | | | [address] | | + + + + + Care Team Providers + +------+ + | Care Media Marketing Specialist Name | Role | Phone | + +------+ + | Anna De Guzman PA-C | PCP | | + +------+ + Reason for Visit +--------+ + | Reason | Comments | +--------+ + | Other | Pre op meds to stop | +--------+ + Encounter Details +--------+ + + + + | Date | Type | Department | Care Team | Description | +--------+ + + + + | 03/07/ | Telephone | [facility] | Irving Becerril, | Other (Pre op meds | | 2016 | | NEUROSURGERY [address] | DO [address] | to stop) | | | | [address] | [address] [place], [place] | | | | | [place], [place] | [id number] | | | | | [address] | | | | | | [phone] | | | +--------+ + + + [...]
--- OUTSIDE RECORDS SUMMARY | ~2019-10-27 | XMS | Encounter Summary ---
Demographics + + + | Address | [address] | | | [place] [address] | + + + | Home Phone | | + + + | Preferred Language | Unknown | + + + | Marital Status | | + + + | Yarsanism Affiliation | 1041 | + + + | Race | Unknown | + + + | Ethnic Group | Unknown | + + + Author + + + | Author | [facility] | | | and [place] | + + + | Organization | [facility] | | [...] [place], | | | | | [place] [address] | | + + + + + | Kellen Briones | ECON | [place], [place] | | | | | [address] | | + + + + + Care Team Providers + +------+ + | Care Special Effects Person Name | Role | Phone | + [...] + | 08/10/ | Refill | [facility] | Irving Becerril, | Medication Refill | | 2016 | | NEUR[address]URGERY [address] | DO [address] | | | | | [address] [facility] [address] | [address] [place], [place] | | | | | [place], [place] | [phone] | | | | | [address] | | | | | | [phone] | | | +--------+--------+ + + + [...]
--- OUTSIDE RECORDS SUMMARY | ~2019-10-27 | XMS | Encounter Summary ---
Demographics + + + | Address | [address] | | | [place] [address] | + + + | Home Phone | | + + + | Preferred Language | Unknown | + + + | Marital Status | | + + + | Denominational Affiliation | 1041 | + + + | Race | Unknown | + + + | Ethnic Group | Unknown | + + + Author + + + | Author | [facility] | | | and [place] | + + + | Organization | [facility] | | [...] [place], | | | | | [place] [address] | | + + + + + | Kellen Briones | ECON | [place], [place] | | | | | [address] | | + + + + + Care Team Providers + +------+ + | Care Ict Customer Support Officer Name | Role | Phone | [...] Closed | | Radiology | Diagnoses | Tinajero, | Guy | | | | | Hx of CABG | DO Agata | Cardiology | | | | | Procedures | [address] | [place] [address]uc | | | | | NM Nuclear | [address] | Med [address] | | | | | Stress Test | [address] | [address] | | | | | (Vasodilator | [place], [place] | [place], [place] | | | | | ) | [address] | [address] | | | | | | Phone: | Phone: | | | | | | [phone] | [phone] | | | | | | Fax: | Fax: | | | | | | [phone] | [phone] | +--------+--------+ + + + + Encounter Details +--------+ + + + + | Date | Type | Department | Care Team | Description | +--------+ + + + + | 02/17/ | Hospital | [facility] | TinajeroFlorindayDO | | | 2019 | Encounter | CARDIOLOGY ECHOLA | [address] | | | | | NUC MED [address] | [address] [place], [place] | | | | | [address] | [address] | | | | | [place], [place] | | | | | | [address] | | | | | | [phone] | | | +--------+ + + + [...] | + +--------+ + + + | NM NUCLEAR STRESS | Routin | 02/17/2019 | Hx of CABG | Results for this | | TEST (PHARMACOLOGIC | e | 1:28 PM | | procedure are in the | | - VASODILATOR) | | PDT | | results section. | + +--------+ + + + documented in this encounter Visit Diagnoses Not on filedocumented in this encounter Administered Medications + +--------+ +--------+------+------+ | Medication Order | MAR | Action | Dose | Rate | Site | | | Action | Date | | | | + +--------+ +--------+------+------+ | regadenoson (LEXISCAN) | Given | 02/18/20 | 0.4 mg | | | | injection 0.4 mg 0.4 mg, | | 19 1:15 | | | | | Intravenous, ONCE, 02/17/19 at | | PM PDT | | | | | 1345, For 1 dose, Give IV push | | | | | | | over 10 seconds, then follow | | | | | | | immediately with 5 mL saline | | | | | | | flush., Nuclear Medicine | | | | | | + +--------+ +--------+------+------+ +---+---+ | | | +---+---+ + +-------+ + +---+---+ | technetium TC-99M sestamibi | Given | 02/18/20 | 35.7 | | | | (CARDIOLITE) injection 35.7 | | 19 1:17 | millicur | | | | millicurie 35.7 millicurie, | | PM PDT | ies | | | | Intravenous, ONCE, 02/17/19 at | | | | | | | 1400, For 1 dose, Nuclear | | | | | | | Medicine | | | | | | + +-------+ + +---+---+ +---+---+ | | | +---+---+ documented in this encounter"
--- OUTSIDE RECORDS SUMMARY | ~2019-10-27 | XMS | Encounter Summary ---
Demographics + + + | Address | [address] | | | [place] [address] | + + + | Home Phone | | + + + | Preferred Language | Unknown | + + + | Marital Status | Unknown | + + + | Anglican Affiliation | Unknown | + + + | Race | Unknown | + + + | Ethnic Group | Unknown | + + + Author + + + | Author | [facility] | + + + | Organization | [facility] | + + + | Address | Unknown | + + + | Phone | Unavailable | + + + Care Team Providers + +------+ + | Care Packing Machine Pilot Can Router Name | Role | Phone | + +------+ + PCP | Unavailable | + +------+ + Encounter Details +--------+ + + + + | Date | Type | Department | Care Team | Description | +--------+ + + + + | 07/24/ | Document-Sc | UNKNOWN DEPARTMENT | Unknown . | | | 2012 | anned | [address] | | | | | [address] | | | | | | [place], [place] | | | | | | [address] | | | +--------+ + + + [...]
--- OUTSIDE RECORDS SUMMARY | ~2019-10-27 | XMS | Encounter Summary ---
Demographics + + + | Address | [address] | | | [place] [address] | + + + | Home Phone | | + + + | Preferred Language | Unknown | + + + | Marital Status | | + + + | Yazdanism Affiliation | 1041 | + + + | Race | Unknown | + + + | Ethnic Group | Unknown | + + + Author + + + | Author | [facility] | | | and [place] | + + + | Organization | [facility] | | [...] [place], | | | | | [place] [address] | | + + + + + | Kellen Briones | ECON | [place], [place] | | | | | [address] | | + + + + + Care Team Providers + +------+ + | Care Cotton Farmworker Name | Role | Phone | + [...] | | | Procedures | 1100 | Sanborn Nuc | | | | | NM Nuclear | [address] [address] | Med 1100 | | | | | Stress Test | [address] | [address] | | | | | (Vasodilator | [place] | [place] | | | | | ) | [address] | [address] | | | | | | Phone: | Phone: | | | | | | [phone] | [phone] | | | | | | Fax: | Fax: | | | | | | [phone] | [phone] | +--------+--------+ + + + + Reason for Visit Diagnostic/Screening (Routine) +--------+--------+ + + + + | Status | Reason | Specialty | Diagnoses / | Referred By | Referred To | | | | | Procedures | Contact | Contact | +--------+--------+ + + + + | Closed | | Radiology | Diagnoses | Lior | Guy | | | | | Hx of CABG | DO Agata | Cardiology | | | | | Procedures | 1100 | Sanborn Nuc | | | | | NM Nuclear | [place] | Med 1100 | | | | | Stress Test | PH[facility] F | [place] | | | | | (Vasodilator | [place] | | | | | ) | [address] | [address] | | | | | | Phone: | Phone: | | | | | | [phone] | [phone] | | | | | | Fax: | Fax: | | | | | | [phone] | [phone] | +--------+--------+ + + + + Encounter Details +--------+ + + + + | Date | Type | Department | Care Team | Description | +--------+ + + + + | 02/16/ | Hospital | [facility] | Agata Tinajero DO | Hx of CABG | | 2019 | Encounter | CARDIOLOGY BOZEMAN | [address] | | | | | NUC MED 1100 | [place], [place] | | | | | [place] | [address] | | | | | [place], [place] | | | | | | [address] | | | | | | [phone] | | | +--------+ + + + [...] + + documented in this encounter Results NM Nuclear Stress Test (Vasodilator) (02/17/2019 1:28 PM PDT) + +--------+ + + + | Component | Value | Ref Range | Performed | Pathologist | | | | | At | Signature | + +--------+ + + + | BASELINE | 82 | bpm | [facility] | | | HEART RATE | | | | | + +--------+ + + + | BASELINE | 157/74 | mmHg | [facility] | | | BLOOD | | | | | | PRESSURE | | | | | + +--------+ + + + | PEAK HEART | 113 | | [facility] | | | RATE | | | | | + +--------+ + + + | PEAK BLOOD | 157/74 | mmHG | [facility] | | | PRESSURE | | | | | + +--------+ + + + | Target HR | 122 | | [facility] | | + +--------+ + + + | Percent HR | 78 | | [facility] | | + +--------+ + + + | Estimated | 14,415 | | [facility] | | | rate | | | | | | pressure | | | | | + +--------+ + + + | LVEF-SPECT | 92 | % | [facility] | | | NUCLEAR | | | | | | STRESS/VIAB | | | | | | ILITY | | | | | + +--------+ + + + | NM stress | 23 | | [facility] | | | end | | | | | | diastolic | | | | | | volume | | | | | + +--------+ + + + | NM stress | 1 | | [facility] | | | end | | | | | | systolic | | | | | | volume | | | | | + +--------+ + + + | NM rest end | 12 | | [facility] | | | diastolic | | | | | | volume | | | | | + +--------+ + + + | NM rest end | 1 | | [facility] | | | systolic | | | | | | volume | | | | | + +--------+ + + + | TID VALUE | 1.57 | | [facility] | | + +--------+ + + + + + | Specimen | + + | | + + + + + | Narrative | Performed At | + + + | 1. This is a | [facility] | | normal Lexiscan Cardiolite stress test2. No evidence of infarct or | | | ischemia3. Hyperdynamic LV function, calculated EF 95%4. This is a low | | | risk study | | + + + + +---------+ + + | Performing | Address | City/State/Zipcode | Phone Number | | Organization | | | | + +---------+ + + | [facility] | | | | + +---------+ + + documented in this encounter Visit Diagnoses + + | Diagnosis | + + | Hx of CABG Postsurgical aortocoronary bypass status | + + documented in this encounter Administered Medications + +--------+ + +------+------+ | Medication Order | MAR | Action | Dose | Rate | Site | | | Action | Date | | | | + +--------+ + +------+------+ | technetium TC-99M sestamibi | Given | 02/17/20 | 32.1 | | | | (CARDIOLITE) injection 32.1 | | 19 2:15 | millicur | | | | millicurie 32.1 millicurie, | | PM PDT | ies | | | | Intravenous, ONCE, 02/16/19 at | | | | | | | 1445, For 1 dose, Nuclear | | | | | | | Medicine | | | | | | + +--------+ + +------+------+ +---+---+ | | | +---+---+ documented in this encounter"
--- OUTSIDE RECORDS SUMMARY | ~2019-10-27 | XMS | Encounter Summary ---
Demographics + + + | Address | [address] | | | [place] [address] | + + + | Home Phone [...] [place], | | | | | [place] [address] | | + + + + + | Kellen Briones | ECON | [place], [place] | | | | | [address] | | + + + + + Care Team Providers + +------+ + | Care Engine Hostler Name | Role | Phone | + [...] Lumbar | NARESH Villareal-C | [address] | | | | | radiculopath | [address] | [place], | | | | | y | [address] | [place] | | | | | Procedures | [address] | [address] | | | | | MRI Lumbar | [place], | Phone: | | | | | Spine wo | [place] [address] | [phone] | | | | | Contrast | Phone: | Fax: | | | | | | [phone] | [phone] | | | | | | Fax: | | | | | | | [phone] | | +--------+--------+ + + + + [...] Lumbar | AYAAN Villareal | [address] | | | | | radiculopath | [address] | [place], | | | | | y | [address] | [place] | | | | | Procedures | [address] | [address] | | | | | MRI Lumbar | [place], | Phone: | | | | | Spine wo | [place] [address] | [phone] | | | | | Contrast | Phone: | Fax: | | | | | | [phone] | [phone] | | | | | | Fax: | | | | | | | [phone] | | +--------+--------+ + + + + Encounter Details +--------+ + + + + | Date | Type | Department | Care Team | Description | +--------+ + + + + | 01/22/ | Hospital | [facility] | Mono Diaz, | Lumbar radiculopathy | | 2018 | Encounter | MED CTR MRI [address] | PA-C [address] | | | | | [address] [place], | [address] [place] | | | | | [place] [address] | [place] [address] | | | | | [phone] | | | | | | | [...] L4 nerve root along with the descending [id number] | | roots within the subarticular recesses.L5-S1: Moderate to severe disc space narrowing | | and generalized disc osteophytecomplex combine with dorsal ligamentous and facet | | hypertrophy to moderatelynarrow the foramina to a similar degree, with encroachment on | | the exiting P2nvyfc roots along with the descending S1 nerve [...] DISEASE AND | | MILD ANTEROLISTHESIS AT [id number]-[id number] MILD STENOSIS.7. LEVOSCOLIOSIS AND MULTILEVEL FACET | [...] + | Performing | Address | City/State[facility] | Phone Number | | Organization | | | | + +---------+ + + | [facility] | | | | + +---------+ + + documented in this encounter Visit Diagnoses + + | Diagnosis | + + | Lumbar radiculopathy Thoracic or lumbosacral neuritis or radiculitis, unspecified | + + documented in this encounter"
--- OUTSIDE RECORDS SUMMARY | ~2019-10-27 | XMS | Encounter Summary ---
Demographics + + + | Address | [address] | | | [place] [address] | + + + | Home Phone [...] + + | Author | [facility] | | | and [place] | + + + | Organization | [facility] | | | and [place] | + + + | Address | Unknown | + + + | Phone | Unavailable | + + + Support + + + + + | Name | Relationship | Address | Phone | + + + + + | Lucy Winchester | ECON | [place], | | | | | [place] [address] | | + + + + + | Kellen Briones | ECON | [place], [place] | | | | | [address] | | + + + + + Care Team Providers + +------+ + | Care Commercial Light Fixture Assembler Name | Role | Phone | [...] + | 06/18/ | Refill | [facility] | Irving Becerril, | Medication Refill | | 2016 | | NEUROSURGERY [address] | DO [address] | | | | | [address] [facility] | [address] [place], [place] | | | | | [place], [place] | [id number] | | | | | [address] | | | | | | [phone] | | | +--------+--------+ + + + [...]
--- OUTSIDE RECORDS SUMMARY | ~2019-10-27 | XMS | Encounter Summary ---
Demographics + + + | Address | [address] | | | [place] [address] | + + + | Home Phone | | + + + | Preferred Language | Unknown | + + + | Marital Status | | + + + | Buddhist Affiliation | 1041 | + + + | Race | Unknown | + + + | Ethnic Group | Unknown | + + + Author + + + | Author | [facility] | | | and [place] | + + + | Organization | [facility] | | | and [place] | + + + | Address | Unknown | + + + | Phone | Unavailable | + + + Support + + + + + | Name | Relationship | Address | Phone | + + + + + | uLcy Winchester | ECON | [place], | | | | | [place] [address] | | + + + + + | Kellen Briones | ECON | [place] | | | | | [address] | | + + + + + Care Team Providers + +------+ + | Care Store Consultant Name | Role | Phone | + +------+ + | Barb Marte | PCP | | + +------+ + Encounter Details +--------+ + + + + | Date | Type | Department | Care Team | Description | +--------+ + + + + | 01/31/ | Hospital | [facility] | Conversion | Diagnosis unknown | | 2018 | Encounter | CONVERSION DEP [address] | Transaction, | | | | | [place] | Provider Unknown | | | | | [place] | [phone] | | | | | [address] | | | | | | [phone] | | | +--------+ + + + [...] + +--------+ + + + | MRI BRAIN WO | Routin | 01/31/2018 | | Results for this | | CONTRAST | e | 4:29 PM | | procedure are in the | | | | PDT | | results section. | + +--------+ + + + documented in this encounter Results MRI Brain wo Contrast (01/31/2018 4:29 PM PDT) + + | Specimen | + + | | + + + + + | Narrative | Performed At | + + + | This is a non-reportable procedure without a radiologist report and | | | is used for image storage only | | + + + + + | Procedure Note | + + | Nilay Lawrence Everett - 01/14/2019 11:42 AM PDT This is a non-reportable procedure | | without a radiologist report and isused for image storage only | + + documented in this encounter Visit Diagnoses + + | Diagnosis | + + | Diagnosis unknown Other unknown and unspecified cause of morbidity or mortality | + + documented in this encounter"
--- OUTSIDE RECORDS SUMMARY | ~2019-10-27 | XMS | Encounter Summary ---
Demographics + + + | Address | [address] | | | [place] [address] | + + + | Home Phone | | + + + | Preferred Language | Unknown | + + + | Marital Status | | + + + | Pentecostal Affiliation | 1041 | + + + | Race | Unknown | + + + | Ethnic Group | Unknown | + + + Author + + + | Author | [facility] | | | and [place] | + + + | Organization | [facility] | | | and [place] | + + + | Address | Unknown | + + + | Phone | Unavailable | + + + Support + + + + + | Name | Relationship | Address | Phone | + + + + + | Lucy Winchester | ECON | [place], | | | | | [place] [address] | | + + + + + | Kellen Briones | ECON | [place], [place] | | | | | [address] | | + + + + + Care Team Providers + +------+ + | Care Surg Tech Name | Role | Phone | + [...] | | | | | | | [place] | | | | | | [...] + + | 03/30/ | Surgery | [facility] | Irving Becerril, | C3-4, C4-5, C5-6, | | 2016 | | MED CTR [place] INTRA OP | DO [address] | C6-7 Anterior | | | | [address] | [address] [place], [place] | Cervical Discectomy | | | | [place] | [address] | w/ Fusion and | | | | [address] | | Plating | | | | [phone] | | | +--------+---------+ + + + [...] Hypertension Stroke Syncope and collapse Cancer Hyperlipidemia [place] (myocardial infarction) GERD (gastroesophageal reflux disease) Asthma Spondylolisthesis of lumbar region Lumbar radiculopathy DDD (degenerative disc disease), lumbar Spinal stenosis of lumbar region with asrupxduqdcac-W4-P6 level moderately severe 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 Patient was [...] signed by: Chavo Jacob, 03/31/2016 7:59 [facility] documented in this encounter Discharge Instructions Instructions Merle Ricci, RETIREMENT SPECIALIST - 03/31/2016Discharge Instructions for Cervical Fusion [...] t raise your hands over your head [id number])after your surgery. Don t drive until your [...] this your 1 month post op appointment. 5986-0486 [employer]. [address] [place] [address]. All righ ts reserved. This information is not intended as a substitute for professional medical care. Always follow your healthcare professional's instructions. If you would like Home Health: Call [facility] at [phone] documented in this encounter Medications at Time [...] rom the original. [facility] PROGRESS NOTE Pt. Name/Age/: Clementine Winchester 75 [...] by: Chavo Jacob, 03/31/2016 7:48 [facility] documented in this encounter Plan of [...] + + | Performing | Address | City/State/[facility] | Phone Number | | Organization [...] [address] | [place] | [phone] | | [facility] | | [address] | | | - LABORATORY | | [...] + | [facility] | [address] | [place] | [phone] | | [facility] | | [address] | | | - LABORATORY | | | | + + + + + Type and Screen (03/30/2016 11:51 AM PDT) + + + + + + | Component | Value | Ref Range | Performed | Pathologist | | | | | At | Signature | + + + + + + | ABO | A | | [facility] | | | | | | [facility] [...] ST. | [address] | [place] | | | [facility] | | [address] | | | - BLOOD BANK | [...]
--- OUTSIDE RECORDS SUMMARY | ~2019-10-27 | XMS | Encounter Summary ---
Demographics + + + | Address | [address] | | | [place] [address] | + + + | Home Phone | | + + + | Preferred Language | Unknown | + + + | Marital Status | | + + + | Nondenominational Affiliation | 1041 | + + + [...] [place], | | | | | [place] [address] | | + + + + + | Kellen Briones | ECON | [place], [place] | | | | | [address] | | + + + + + Care Team Providers + +------+ + | Care Environmental Quality Analyst Name | Role | Phone | [...] [facility] | | | | | Lumbosacral | Marissa, | [address] | | | | | spondylosis | Tk Monreal MD | [place], | | | | | without | [address] | [place] | | | | | myelopathy | [place] | [address] | | | | | Procedures | [place] | Phone: | | | | | [place] | [address] | [phone] | | | | | DX/THER AGNT | Phone: | Fax: | | | | | [place] | [phone] | [phone] | | | | | FACET JOINT, | Fax: | | | | | | | [phone] | | | | | | CERV/THORAC, | | | | | | | 1ST LEVEL | | | | | | | [place] | | | | | | | DX/THER AGNT | | | | | | | [place] | | | | | | | FACET JOINT, | | | | | | | | | | | | | | CERV/THORAC, | | | | | | | 2ND LEVEL | | | | | | | [place] | | | | | | | DX/THER AGNT | | | | | | | [place]ERT | | | | | | | FACET JOINT, | | | | | | | | | | | | | | CERV/THORAC, | | | | | | | ADD LEVEL | | | | | | | Rt | | | | | | | C4-C5,C5-C6, | | | | | | | C6-C7 Facet | | | | | | | injection-AP | | | | | | | PT 15 | | | +--------+--------+ + + + + Encounter Details +--------+ + + + + | Date | Type | Department | Care Team | Description | +--------+ + + + + | 09/24/ | Hospital | [facility] | Tk Ann | Neck pain on right | | 2013 | Encounter | MED CTR XRAY [address] | T, [address] | side; Facet | | | | [place] | [facility] [place] | arthritis of | | | | [place] [address] | [id number] | cervical region | | | | [phone] | | | | | | | Medical Physics TeacherJordan | | | | | | marco lara | | +--------+ + + + + [...] + + + | Blood Pressure | 101/58 | 09/24/2013 2:11 PM | | | | | PDT | | + + + + + | Pulse | 79 | 09/24/2013 2:11 PM | | | | | PDT | | + + + + + | Temperature | 10 C (50 F) | 09/24/2013 2:11 PM | | | | | PDT [...] + + + + | Height | - | - | | + + + + + | Body Mass Index | - | - | | + + + + + documented in this encounter Medications [...] | [place] FACET INJECTION | Routin | 09/24/2013 | Neck pain on right | Results for this | | CERVICAL | e | 2:09 PM | side Facet | procedure are in the | | | | PDT | arthritis of | results section. | | | | | cervical region | | + +--------+ + + + documented in this encounter Results [place] Facet Injection Cervical (09/24/2013 2:09 PM PDT) + + | Specimen | + + | | + + + + + | Narrative | Performed At | + + + | 09/24/13 Cervical Facet Steroid Injections Diagnosis: | [facility] | | Cervical Spondylosis ICD-9 Code 721.0 Ms. Clementine Winchester | [facility] | | presents to the fluoroscopy suite for fluoroscopically-guided C4-C5, [facility] | | C5-C6 and C6-C7 facet [...] | + + + + + | [facility] | [address] | [place] | [phone] | | [facility] | | [address] | | | - IMAGING | | [...] iohexol (OMNIPAQUE 300) 300 | Given | 09/25/19 | 1 mL | | | | mg/mL injection 1 mL 1 mL, | | 14 2:08 | | | | | Intravenous, ONCE PRN, Other, | | PM PDT | | | | | Starting Adilene 09/24/13 at 1345, For | | | | | | | 1 dose, Radiology | | | | | | + +--------+ +------+------+------+ +---+---+ | | | +---+---+ + +-------+ +-------+---+ + | lidocaine 1% injection 5 mL 5 | Given | 09/25/19 | 5 mLs | | Other | | mL, Intradermal, ONCE, Adilene | | 14 1:58 | | | (Comment | | 09/24/13 at 1415, For 1 dose, | | PM PDT | | | ) | | Radiology | | | | | | + +-------+ +-------+---+ + +---+---+ | | | +---+---+ + +-------+ +-------+---+---+ | triamcinolone acetonide | Given | 09/25/19 | 40 mg | | | | (KENALOG-40) 40 mg/mL injection | | 14 2:15 | | | | | 40 mg 40 mg, Other, ONCE, Adilene | | PM PDT | | | | | 09/24/13 at 1415, For 1 dose, | | | | | | | Shake well. Not for IV use., | | | | | | | Radiology | | | | | | + +-------+ +-------+---+---+ +---+---+ | | | +---+---+ documented in this encounter"
--- OUTSIDE RECORDS SUMMARY | ~2019-10-27 | XMS | Encounter Summary ---
Demographics + + + | Address | [address] | | | [place] [address] | + + + | Home Phone | | + + + | Preferred Language | Unknown | + + + | Marital Status | | + + + | Mandaeism Affiliation | 1041 | + + + | Race | Unknown | + + + | Ethnic Group | Unknown | + + + Author + + + | Author | [facility] | | | and [place] | + + + | Organization | [facility] | | | and [place] | + + + | Address | Unknown | + + + | Phone | Unavailable | + + + Support + + + + + | Name | Relationship | Address | Phone | + + + + + | Lucy Winchester | ECON | [place], | | | | | [place] [address] | | + + + + + | Kellen Briones | ECON | [place], [place] | | | | | [address] | | + + + + + Care Team Providers + +------+ + | Care Web Engineer Name | Role | Phone | + +------+ + | Anna De Guzman PA-C | PCP | | + +------+ + Encounter Details +--------+ + + + + | Date | Type | Department | Care Team | Description | +--------+ + + + + | 03/05/ | Hospital | [facility] | IsakkaydenkaileeTk mathis | | | 2012 | Encounter | MED CTR XRAY [address] | T, [address] | | | | | [place] | [place], [place] | | | | | [place] [address] | [id number] | | | | | [phone] | | | +--------+ + + + [...]
--- OUTSIDE RECORDS SUMMARY | ~2019-10-27 | XMS | Encounter Summary ---
Demographics + + + | Address | [address] | | | [place] [address] | + + + | Home Phone | | + + + | Preferred Language | Unknown | + + + | Marital Status | | + + + | Judaism Affiliation | 1041 | + + + | Race | Unknown | + + + | Ethnic Group | Unknown | + + + Author + + + | Author | [facility] | | | and [place] | + + + | Organization | [facility] | [...] [place], | | | | | [place] [address] | | + + + + + | Kellen Briones | ECON | [place] | | | | | [address] | | + + + + + Care Team Providers + +------+ + | Care Bpo Specialist Name | Role | Phone | + +------+ + | Barb Marte | PCP | | + +------+ + Encounter Details +--------+ + + + + | Date | Type | Department | Care Team | Description | +--------+ + + + + | 07/08/ | Clinical | [facility] | | Lumbar degenerative | | 2020 | Support | NEUROSURGERY [address] | | disc disease; | | | | [place] | | Spondylolisthesis of | | | | [place], [place] | | lumbar region | | | | [address] | | | | | | [phone] | | | +--------+ + + + [...] concerns feel free to call us at [phone]. documented in this encounter Progress Notes Marialuisa [...] together increases drowsiness and risk of falls. Jo-Anne nt is provided a prescription for an [...] given to patient. Patient was sent to [facility] for their scheduled pre-admit appointment, anesthesia consult, [...]
--- OUTSIDE RECORDS SUMMARY | ~2019-10-27 | XMS | Encounter Summary ---
Demographics + + + | Address | [address] | | | [place] [address] | + + + | Home Phone [...] [place], | | | | | [place] [address] | | + + + + + | Kellen Briones | ECON | [place] | | | | | [address] | | + + + + + Care Team Providers + +------+ + | Care Material Inspector Name | Role | Phone | + +------+ + | Barb Marte | PCP | | + +------+ + Reason for Visit + + + | Reason | Comments | + + + | Follow-up | Injection: bilateral L5-S1 TFESI 02/24/18 | + + + Encounter Details +--------+---------+ + + + | Date | Type | Department | Care Team | Description | +--------+---------+ + + + | 03/19/ | Office | [facility] | Mono Diaz, | Lumbar radiculopathy | | 2018 | Visit | PHYSIATRY [address] | PA-C [address] | (Primary Dx) | | | | [address] | [address] [place] | | | | | [place], [place] | [place] [address] | | | | | [address] | [phone] | | | | | [phone] | | | +--------+---------+ + + + [...] + + + | Blood Pressure | 120/49 | 03/19/2018 9:13 AM | | | | | PDT | | + + + + + | Pulse | 76 | 03/19/2018 9:13 AM | | | | | PDT [...] Weight | 64 kg (141 lb) | 03/19/2018 9:13 AM | | | | | PDT | | + + + + + | Height | 160 cm (5' 3") | 03/19/2018 9:13 AM | | | | | PDT | | + + + + + | Body Mass Index | 24.98 | 03/19/2018 9:13 AM | | | | | PDT | | + + + + + documented in this encounter Patient Instructions Patient Instructions Mono Diaz PA-C - 03/19/2018 9:20 AM PDTFollow up with Mono brumfield PA-C approximately [...] of the procedure you must provide a waste collection driver to take you home. For all [...] press against a nerve. Date Last Reviewed: 08/01/201719998355-1665 The [employer]. [address] [place] [address]. All righ ts reserved. This information is not intended as a substitute for professional medical care. Always follow your healthcare professional's instructions. documented in this encounter Progress Notes Mono Diaz PA-C - 03/19/2018 9:20 AM PDTFormatting of this note might be different fro m the original. CHIEF COMPLAINT: Chief Complaint Patient presents with Follow-up Injection: bilateral L5-S1 TFESI 02/24/18 HISTORY OF PRESENT ILLNESS: Clementine Winchester is a 77 y.o. female being seen today in follow-up for complaints of low ba ck pain. The patient has been seen for this complaint in the past. Previously it was ocsar mmended that she have a repeat L5/S1 TFESI (bilateral) for which she reports 10% relief sinc e 02/24/18 injection date. In the past she has responded very well to bilateral L5/S1 TFESI i njections. Due to her recent hospitalization for serotonin syndrome her PCP has began to wea n her off of all her pain medications. Due to recent weaning of medications this likely inte rfered with her interpretation of how well or not the recent TFESI performed for relieving s ymptoms. She is currently only taking 200mg of gabapentin per day and was recently started on Cymbal ta for neuropathic pain and depression. Her recent Lumbar MRI shows significant bilateral foraminal stenosis and moderate to severe central canal stenosis from L3-L5.The patient reports overall her symptoms are worsening. She rates the pain as 7 on scale of 1-10. She describes the pain as a sharp, achy, tinglin g sensation to her low back and an aching pain into both legs L>R, sharp at times. Her symp toms worsen with standing and prolonged walking. Her symptoms improve with lying down, sitt ing down, use of walker, and medication use. She ambulates with a walker at all times. The patient does not describe numbness of the bilateral lower extremities. She does report wea kness of the bilateral lower extremities. She does not have bowel and bladder dysfunction. She does not have saddle anesthesia. Treatments for these complaints have included prior steroid injections, physical therapy, c hiropractics therapy and narcotic medications use; she currently uses [place], Flexeril and ga bapentin. She is taking [...] by mouth 3 times daily as needed. DULoxetine (CYMBALTA) [address] capsule Take 20 mg by mouth Daily. 0 fentaNYL (DURAGESIC) 25 mcg/hr APPLY 1 PATCH [...] HEMATOLOGIC/LYMPHATIC: No abnormal bleeding PHYSICAL EXAMINATION: Vitals: 03/19/18 0913 BP: 120/49 Pulse: 76 PainSc: 7 PainLoc: Back Body mass index is 24.98 [...] has no apparent deficits with short or [facility] memory. She has appropriate fund of knowledge [...] leg. Lumbar facet loading was negative. Strength andrea ting showed 4+/5 strength throughout [...] 01/22/18: severe DDD throughout lumbar spine with severe central canal stenosis f rom L3-S1 and severe bilateral foraminal stenosis at L5/S1. Descending L5 and S1 nerve root impingements. ASSESSMENT: 1. Lumbar radiculopathy PLAN: 1) Today we discussed the patient's differential diagnosis with the likely primary issue be ing lumbar radiculopathy secondary to central canal stenosis. Patient's description of sympt oms, physical exam, and imaging suggest this diagnosis [...] PT (multiple sessions over the years) and care management associate. Unfortunately Clementine Winchester continues to have significant discomfort. It appears to me that the pain is primari ly coming from L5/S1 lumbar nerve root impingement as appreciated on recent MRI. I did feel that Clementine Winchester would be a good candidate for a repeat bilateral L5/S1 TFESI with additional bilateral L4/5 TFESI (half dose). These will be performed in May 2018 to allow 3 months to pass between injection dates and decrease risk for corticosteroid side effects. 5) Patient will follow up with me [...] care. ELECTRONICALLY SIGNED BY: Mono Diaz PA-C, 03/19/18 documented in this e ncounter Plan of Treatment Not on filedocumented as of this encounter Results [place] BAUTISTA Lumbar Transforaminal (05/12/2018 1:12 PM PST) + + | Specimen | + + | | + + + + -+ | Narrative | Performed At | + + -+ | 05/12/2018 | [facility] | | Bilateral Transforaminal Epidural Steroid Injections Diagnosis: Lumbar | | | radiculopathy ICD-10 Code M54.16 Clementine Winchester presents to the | | | fluoroscopy suite for fluoroscopically-guided bilateral L4-L5 and | | | bilateral L5-S1 transforaminal epidural steroid injections as part of | | | conservative management for chronic pain with lumbar radiculopathy and | | | degenerative disc disease. After informed consent was obtained, the | | | patient lay in the prone position on the fluoroscopy table. The areas | | | were identified under fluoroscopic guidance. The areas were prepped | | | and draped in sterile fashion. A 25-gauge, 1.5-inch needle was | | | inserted into each region and approximately 3 mL of buffered 1% | | | lidocaine was infused. Then, a 22-gauge spinal needle was inserted | | | into the posterior superior transforaminal space bilaterally and | | | advanced into the epidural space under fluoroscopic guidance. | | | Confirmation into the epidural space was obtained with infusion of | | | approximately 1 mL of Omnipaque contrast which showed epidural flow as | | | well as nerve sheath flow. Then, a combination of 2 mL of 1% | | | lidocaine and 2 mL of 6 mg/mL betamethasone was infused, divided | | | between the two sides. The patient tolerated the procedure well | | | without complications. Pre- and post-procedure blood pressures were | | | stable. The patient was given verbal as well as written follow-up | | | instructions. Prior to the start of the procedure, the following were | | | performed and/or verified, including correct patient identity, | | | correct site/side marked and visible, agreement on the procedure to be | | | done, correct patient positioning and an accurate procedure consent | | | form. Any safety precautions based on clinical history and/or | | | medication use have been addressed. I personally performed the | | | procedure above. Estimated blood loss: MinimalComplications: | | | NoneFindings: As expectedAnesthesia: Local 1% Lidocaine | | |visible, agreement [...]
--- OUTSIDE RECORDS SUMMARY | ~2019-10-27 | XMS | Encounter Summary ---
Demographics + + + | Address | [address] | | | [place] [address] | + + + | Home Phone | | + + + | Preferred Language | Unknown | + + + | Marital Status | | + + + | Latter Day Affiliation | [id number] | + + + | Race | Unknown | + + + | Ethnic Group | Unknown | + + + Author + + + | Author | [facility] | | | and [place] | + + + | Organization | [facility] | | [...] [place], | | | | | [place] [address] | | + + + + + | Kellen Briones | ECON | [place] | | | | | [address] | | + + + + + Care Team Providers + +------+ + | Care Program Developer Name | Role | Phone | + +------+ + | Barb Marte | THANG | | + +------+ + Encounter Details +--------+ + + + + | Date | Type | Department | Care Team | Description | +--------+ + + + + | 01/27/ | Orders Only | [facility] | Jose Perry V, | | | 2017 | | CONVERSION [address] | MD [address] | | | | | [address] | [address] [place], [place] | | | | | [place], [place] | [address] | | | | | [address] | | | | | | [phone] | | | +--------+ + + + [...] + | ECHO INTERPRETATION | Routin | 01/27/2018 | | Results for this | | OF OUTSIDE FILMS | e | 9:31 AM | | procedure are in the | | | | PDT | | results section. | + +--------+ + + + documented in this encounter Results ECHO Interpretation of Outside Films (01/27/2018 9:31 AM PDT) + + | Specimen | + + | | + + + + + | Impressions | Performed At | + + + | 1. Overall left ventricular systolic function is normal with, an EF | | | between 65 - 70 %. 2. The right ventricle is normal in size, but is | | | not well visualized on this study. 3. No significant valvular | | | abnormalities. 4. There is no evidence for an underlying cardiac cause | | | of her neurologic event on this study. 5. In comparison to the | | | previous echocardiographic study, done 08/20/17, several changes are | | | noted, as detailed below. | | + + + + + + | Narrative | Performed At | + + + | Patient Name: CLEMENTINE WINCHESTER Date of : 1940 | | | Performing Physician: BUCK SOTO MD | | | | | | INDICATIONS CVA CONCLUSIONS 1. Overall | | | left ventricular systolic function is normal with, an EF between 65 - | | | 70 %. 2. The right ventricle is normal in size, but is not well | | | visualized on this study. 3. No significant valvular abnormalities. | | | 4. There is no evidence for an underlying cardiac cause of her | | | neurologic event on this study. 5. In comparison to the previous | | | echocardiographic study, done 08/20/17, several changes are noted, as | | | detailed below. FINDINGS -------- ECG rhythm: Sinus rhythm. | | | Study: A 2-dimensional transthoracic echocardiogram with m-mode, | | | spectral and color flow Doppler was perfomed. Study: This was a | | | technically adequate study. Left Ventricle: Overall left ventricular | | | systolic function is normal with, an EF between 65 - 70 %. Left | | | Ventricle: The left ventricle cavity size is normal. Left Ventricle: | | | Left ventricular wall thickness is normal. Left Ventricle: No | | | regional wall motion abnormalities. Left Ventricle: The diastolic | | | filling pattern is normal for the age of the patient. Right | | | Ventricle: The right ventricle is normal in size, but i Right | | | Ventricle: s not well visualized. It was enlarged, with moderate | | | systolic function on the previous study. Left Atrium: The left atrium | | | is normal in size. Right Atrium: The right atrium is normal in size. | | | Aortic Valve: Aortic valve is mildly thickened. Aortic Valve: There | | | is mild aortic valve sclerosis without stenosis. Aortic Valve: There | | | is no evidence of aortic regurgitation. Aortic Valve: Peak/mean | | | gradient across the valve is 10.73mmHg/5.52mmHg. Aortic Valve: The | | | aortic valve appears to be trileaflet. Mitral Valve: There is trace | | | mitral regurgitation. Mitral Valve: No evidence of MVP. Mitral | | | Valve: Mild mitral annular calcification present. Tricuspid Valve: | | | The tricuspid valve appears structurally normal. Tricuspid Valve: | | | Mild tricuspid regurgitation present. Tricuspid Valve: There is no | | | evidence of pulmonary hypertension. Tricuspid Valve: The right | | | ventricular systolic pressure (pulmonary artery systolic pressure), as | | | measured by Doppler, is 33.95mmHg, decreased from mild pulmonary | | | hypertension on the prior study (the RVSP was estimated at 43.6 mm Hg | | | at that time). Pulmonic Valve: Pulmonic valve appears structurally | | | normal. Pulmonic Valve: Trace pulmonic regurgitation. Pericardium: | | | There is a small pericardial effusion located near the left | | | ventricle. Pericardium: There is no evidence of cardiac tamponade. | | | IVC/Hepatic Veins: The inferior vena cava is normal in size and | | | collapses > 50 % with sniff, indicating normal central venous | | | pressures. Aorta: The aortic root, ascending aorta and aortic arch | | | are normal. Mass: No mass visualized Thrombus: No clot visualized | | | Thrombus: No vegetation visualized. Septum: No ASD observed. Septum: | | | No VSD observed. MEASUREMENTS Ao asc: 2.70 cm | | | Ao st junct: 2.17 cm IVC: 1.21 cm LA Diam: 3.75 cm | | | EDV(Teich): 83.51 ml IVSd: 0.93 cm LVIDd: 4.30 cm LVPWd: | | | 1.07 cm LVOT Area: 3.11 cm2 LVOT Diam: 1.99 cm %FS: | | | 46.50 % EF(Teich): 78.17 % ESV(Teich): 18.22 ml LVIDs: | | | 2.30 cm SV(Teich): 65.28 ml RVIDd: 2.54 cm Ao Diam SVals: | | | 2.46 cm LVEF MOD A2C: 64.82 % SV MOD A2C: 37.72 ml LVEF MOD | | | A4C: 62.24 % SV MOD A4C: 40.91 ml EF Biplane: 62.31 % | | | LVEDV MOD BP: 61.77 ml LVESV MOD BP: 23.28 ml LVEDV MOD A2C: | | | 58.19 ml LVLd A2C: 6.87 cm LVEDV MOD A4C: 65.73 ml LVLd | | | A4C: 6.76 cm LVESV MOD A2C: 20.47 ml LVLs A2C: 5.45 cm | | | LVESV MOD A4C: 24.81 ml LVLs A4C: 5.91 cm LAESV(A-L): 33.85 | | | ml LAESV Index (A-L): 19.79 ml/m2 LAAs A2C: 12.56 cm2 LAESV | | | A-L A2C: 31.66 ml LALs A2C: 4.23 cm LAAs A4C: 13.43 cm2 | | | LAESV A-L A4C: 33.50 ml LALs A4C: 4.57 cm RAAs: 11.82 cm2 | | | RAESV A-L: 26.21 ml RAESV MOD: 26.46 ml RALs: 4.52 cm | | | TAPSE: 1.59 cm AV maxP.72 mmHg AV meanP.52 mmHg | | | AV Vmax: 1.63 m/s AV Vmean: 1.09 m/s AV VTI: 32.89 cm PREETHI | | | Vmax: 2.19 cm2 PREETHI (VTI): 1.98 cm2 AVAI (Vmax): 0.00 cm2/m2 | | | AVAI (VTI): 0.00 cm2/m2 LVOT maxP.34 mmHg LVOT meanPG: | | | 2.29 mmHg LVSI Dopp: 38.17 ml/m2 LVSV Dopp: 65.27 ml LVOT | | | Vmax: 1.15 m/s LVOT Vmean: 0.68 m/s LVOT VTI: 20.94 cm MV | | | A Obed: 1.09 m/s MV Dec Hudspeth: 3.29 m/s2 MV DecT: 238.09 ms | | | MV E Obed: 0.78 m/s MV E/A Ratio: 0.71 MV PHT: 69.04 ms | | | MVA By PHT: 3.18 cm2 Septal e': 0.05 m/s Septal E/e': 15.64 | | | Lateral e': 0.06 m/s Lateral E/e': 11.34 RAP: 5 mmHg | | | RVSP: 33.95 mmHg TR maxP.95 mmHg TR Vmax: 2.69 m/s | | | Chemical Compounder: DBS Authenticated by: BUCK SOTO MD Report | | | Date/Time: -- [id number] | | + + + + + | Procedure Note | + + | Howard, Rad Conversion - 01/22/2019 4:33 PM PDT Patient Name: Jaja WINCHESTER of | | : 1940 Performing Physician: BUCK SOTO, | | INDICATIONS C | | [place] CONCLUSIONS 1. Overall left ventricular systolic function is normal with, | | an EF between 65 - 70 %.2. The right ventricle is normal in size, but is not well | | visualized on this study. 3. No significant valvular abnormalities. 4. There is no | | evidence for an underlying cardiac cause of her neurologic event on this study. 5. In | | comparison to the previous echocardiographic study, done 08/20/17, several changes are | | noted, as detailed below. FINDINGS--------ECG rhythm: Sinus rhythm.Study: A | | 2-dimensional transthoracic echocardiogram with m-mode, spectral and color flow Doppler | | was perfomed.Study: This was a technically adequate study.Left Ventricle: Overall left | | ventricular systolic function is normal with, an EF between 65 - 70 %.Left Ventricle: | | The left ventricle cavity size is normal.Left Ventricle: Left ventricular wall thickness | | is normal.Left Ventricle: No regional wall motion abnormalities.Left Ventricle: The | | diastolic filling pattern is normal for the age of the patient.Right Ventricle: The | | right ventricle is normal in size, but iRight Ventricle: s not well visualized. It was | | enlarged, with moderate systolic function on the previous study.Left Atrium: The left | | atrium is normal in size.Right Atrium: The right atrium is normal in size.Aortic Valve: | | Aortic valve is mildly thickened.Aortic Valve: There is mild aortic valve sclerosis | | without stenosis.Aortic Valve: There is no evidence of aortic regurgitation.Aortic | | Valve: Peak/mean gradient across the valve is 10.73mmHg/5.52mmHg.Aortic Valve: The | | aortic valve appears to be trileaflet.Mitral Valve: There is trace mitral | | regurgitation.Mitral Valve: No evidence of MVP.Mitral Valve: Mild mitral annular | | calcification present.Tricuspid Valve: The tricuspid valve appears structurally | | normal.Tricuspid Valve: Mild tricuspid regurgitation present.Tricuspid Valve: There is | | no evidence of pulmonary hypertension.Tricuspid Valve: The right ventricular systolic | | pressure (pulmonary artery systolic pressure), as measured by Doppler, is 33.95mmHg, | | decreased from mild pulmonary hypertension on the prior study (the RVSP was estimated at | | 43.6 mm Hg at that time).Pulmonic Valve: Pulmonic valve appears structurally | | normal.Pulmonic Valve: Trace pulmonic regurgitation.Pericardium: There is a small | | pericardial effusion located near the left ventricle.Pericardium: There is no evidence | | of cardiac tamponade.IVC/Hepatic Veins: The inferior vena cava is normal in size and | | collapses > 50 % with sniff, indicating normal central venous pressures.Aorta: The | | aortic root, ascending aorta and aortic arch are normal.Mass: No mass | | visualizedThrombus: No clot visualizedThrombus: No vegetation visualized.Septum: No ASD | | observed.Septum: No VSD observed. MEASUREMENTS Ao asc: 2.[address] junct: | | 2.17 cmIVC: 1.21 cmLA Diam: 3.75 cmEDV(Teich): 83.51 mlIVSd: 0.93 cmLVIDd: | | 4.30 cmLVPWd: 1.07 cmLVOT Area: 3.11 [id number] Diam: 1.99 cm%FS: 46.50 %EF(Teich): | | 78.17 %ESV(Teich): 18.22 mlLVIDs: 2.30 cmSV(Teich): 65.28 mlRVIDd: 2.54 cmAo | | Diam SVals: 2.46 cmLVEF MOD A2C: 64.82 %SV MOD A2C: 37.72 mlLVEF MOD A4C: 62.24 | | %SV MOD A4C: 40.91 mlEF Biplane: 62.31 %LVEDV MOD BP: 61.77 mlLVESV MOD BP: | | 23.28 mlLVEDV MOD A2C: 58.19 mlLVLd A2C: 6.87 cmLVEDV MOD A4C: 65.73 mlLVLd A4C: | | 6.76 cmLVESV MOD A2C: 20.47 mlLVLs A2C: 5.45 cmLVESV MOD A4C: 24.81 mlLVLs A4C: | | 5.91 cmLAESV(A-L): 33.85 mlLAESV Index (A-L): 19.79 ml/m2LAAs A2C: 12.56 [id number] | | A-L A2C: 31.66 mlLALs A2C: 4.23 cmLAAs A4C: 13.43 [id number] A-L A4C: 33.50 | | mlLALs A4C: 4.57 cmRAAs: 11.82 pr6HZBVO A-L: 26.21 mlRAESV MOD: 26.46 mlRALs: | | 4.52 cmTAPSE: 1.59 cmAV maxP.72 mmHgAV meanP.52 mmHgAV Vmax: 1.63 m/Shreyas | | Vmean: 1.09 m/Shreyas VTI: 32.89 cmAVA Vmax: 2.19 cm2AVA (VTI): 1.98 [id number] | | (Vmax): 0.00 cm2/m2AVAI (VTI): 0.00 cm2/m2LVOT maxP.34 mmHgLVOT meanP.29 | | mmHgLVSI Dopp: 38.17 ml/m2LVSV Dopp: 65.27 mlLVOT Vmax: 1.15 m/sLVOT Vmean: | | 0.68 m/sLVOT VTI: 20.94 cmMV A Obed: 1.09 m/sMV Dec Hudspeth: 3.29 m/s2MV DecT: | | 238.09 msMV E Obed: 0.78 m/sMV E/A Ratio: 0.71MV PHT: 69.04 msMVA By PHT: 3.18 | | km9Zebcpe e': 0.05 m/sSeptal E/e': 15.64Lateral e': 0.06 m/sLateral E/e': | | 11.34RAP: 5 mmHgRVSP: 33.95 mmHgTR maxP.95 mmHgTR Vmax: 2.69 m/s | | Chemical Compounder: DBSAuthenticated by: Armen ROY Date/Time: -- | | [id number] IMPRESSION: 1. Overall left ventricular systolic function is | | normal with, an EF between 65 - 70 %.2. The right ventricle is normal in size, but is | | not well visualized on this study. 3. No significant valvular abnormalities. 4. There | | is no evidence for an underlying cardiac cause of her neurologic event on this study. 5. | | In comparison to the previous echocardiographic study, done 08/20/17, several changes | | are noted, as detailed below. | |IVC: 1.21 cm | |LA Diam: 3.75 cm | |EDV(Teich): 83.51 ml | |IVSd: 0.93 cm | |LVIDd: 4.30 cm | |LVPWd: 1.07 cm | |LVOT Area: 3.11 cm2 | |LVOT Diam: 1.99 cm | |%FS: 46.50 % | |EF(Teich): 78.17 % | |ESV(Teich): 18.22 ml | |LVIDs: 2.30 cm | |SV(Teich): 65.28 ml | |RVIDd: 2.54 cm | |Ao Diam SVals: 2.46 cm | |LVEF MOD A2C: 64.82 % | |SV MOD A2C: 37.72 ml | |LVEF MOD A4C: 62.24 % | |SV MOD A4C: 40.91 ml | |EF Biplane: 62.31 % | |LVEDV MOD BP: 61.77 ml | |LVESV MOD BP: 23.28 ml | |LVEDV MOD A2C: 58.19 ml | |LVLd A2C: 6.87 cm | |LVEDV MOD A4C: 65.73 ml | |LVLd A4C: 6.76 cm | |LVESV MOD A2C: 20.47 ml | |LVLs A2C: 5.45 cm | |LVESV MOD A4C: 24.81 ml | |LVLs A4C: 5.91 cm | |LAESV(A-L): 33.85 ml | |LAESV Index (A-L): 19.79 ml/m2 | |LAAs A2C: 12.56 cm2 | |LAESV A-L A2C: 31.66 ml | |LALs A2C: 4.23 cm | |LAAs A4C: 13.43 cm2 | |LAESV A-L A4C: 33.50 ml | |LALs A4C: 4.57 cm | |RAAs: 11.82 cm2 | |RAESV A-L: 26.21 ml | |RAESV MOD: 26.46 ml | |RALs: 4.52 cm | |TAPSE: 1.59 cm | |AV maxP.72 mmHg | |AV meanP.52 mmHg | |AV Vmax: 1.63 m/s | |AV Vmean: 1.09 m/s | |AV VTI: 32.89 cm | |PREETHI Vmax: 2.19 cm2 | |PREETHI (VTI): 1.98 cm2 | |AVAI (Vmax): 0.00 cm2/m2 | |AVAI (VTI): 0.00 cm2/m2 | |LVOT maxP.34 mmHg | |LVOT meanP.29 mmHg | |LVSI Dopp: 38.17 ml/m2 | |LVSV Dopp: 65.27 ml | |LVOT Vmax: 1.15 m/s | |LVOT Vmean: 0.68 m/s | |LVOT VTI: 20.94 cm | |MV A Obed: 1.09 m/s | |MV Dec Hudspeth: 3.29 m/s2 | |MV DecT: 238.09 ms | |MV E Obed: 0.78 m/s | |MV E/A Ratio: 0.71 | |MV PHT: 69.04 ms | |MVA By PHT: 3.18 cm2 | |Septal e': 0.05 m/s | |Septal E/e': 15.64 | |Lateral e': 0.06 m/s | |Lateral E/e': 11.34 | |RAP: 5 mmHg | |RVSP: 33.95 mmHg | |TR maxP.95 mmHg | |TR Vmax: 2.69 m/s | | | |Chemical Compounder: DBS | |Authenticated by: BUCK SOTO MD | |Report Date/Time: [id number]:29 | | | |IMPRESSION: | |1. Overall left ventricular systolic function is normal with, an EF between 65 - 70 %. | |2. The right ventricle is normal in size, but is not well visualized on this study. 3. No significant valvular abnormalities. 4. There is no evidence for an underlying cardiac cause of her neurologic event on this | |study. 5. In comparison to the previous | | echocardiographic study, done 08/20/17, several changes are noted, as detailed below. | + + documented in this encounter Visit Diagnoses Not on filedocumented in this encounter"
--- OUTSIDE RECORDS SUMMARY | ~2019-10-27 | XMS | Encounter Summary ---
Demographics + + + | Address | [address] | | | [place] [address] | + + + | Home Phone [...] [place], | | | | | [place] [address] | | + + + + + | Kellen Briones | ECON | [place], [place] | | | | | [address] | | + + + + + Care Team Providers + +------+ + | Care Blade Balancer Name | Role | Phone | + [...] | Cervical | Marissa, | [address] | | | | | spondylosis | Tk Monreal MD | [place], | | | | | Procedures | [address] | [place] | | | | | [place] INJ | [place] | [address] | | | | | DX/THER AGNT | [facility], [place] | Phone: | | | | | [place] | [address] | [phone] | | | | | FACET JOINT, | Phone: | Fax: | | | | | | [phone] | [phone] | | | | | CERV/THORAC, | Fax: | | | | | | 1ST LEVEL | [phone] | | | | | | [place] INJ | | | | | | | DX/THER AGNT | | | | | | | [place] | | | | | | | FACET JOINT, | | | | | | | | | | | | | | CERV/THORAC, | | | | | | | 2ND LEVEL | | | | | | | NC INJ | | | | | | | DX/THER AGNT | | | | | | | [place] | | | | | | | FACET JOINT, | | | | | | | | | | | | | | CERV/THORAC, | | | | | | | ADD LEVEL | | | | | | | [place] | | | | | | | [...] + + | 11/29/ | Hospital | [facility] | [place], | Cervical stenosis of | | 2016 | Encounter | MED CTR XRAY [address] | AYAAN [address] | spinal canal; | | | | [address] [place] | [facility], [address] | Spondylolisthesis of | | | | [place] [address] | [place] [address] | cervical region; | | | | [phone] | [phone] | Neck pain on right | | | | | | side; Facet | | | | | Child Nutrition Director, [facility] | arthritis of | | | | | [place] | cervical region | | | | [...] Arthritis ICD-10 Code M43.12 Clementine Winchester | [facility] | | presents to the fluoroscopy suite for fluoroscopically-guided [facility] | | bilateral right C3, C4 and [...] + + | Performing | Address | City/State/[facility] | Phone Number | | Organization | | | | + + + + + | [facility] | [address] | [place] | [phone] | | [facility] | | [address] | | | - IMAGING | | [...] PM PDT | | | | | Sat11/30/15 at 1341, For 1 dose, | | [...]
--- OUTSIDE RECORDS SUMMARY | ~2019-10-27 | XMS | Encounter Summary ---
Demographics + + + | Address | [address] | | | [place] [address] | + + + | Home Phone [...] + + | Author | [facility] | | | and [place] | + + + | Organization | [facility] | | | and [place] | + + + | Address | Unknown | + + + | Phone | Unavailable | + + + Support + + + + + | Name | Relationship | Address | Phone | + + + + + | Lucy Winchester | ECON | [place], | | | | | [place] [address] | | + + + + + | Kellen Briones | ECON | [place] | | | | | [address] | | + + + + + Care Team Providers + +------+ + | Care Surgical Appliance Fitter Name | Role | Phone | + [...] + + | 03/19/ | Office | [facility] | Mono Diaz, | Lumbar radiculopathy | | 2018 | Visit | PHYSIATRY [address] | PA-C [address] | (Primary Dx) | | | | [address] | [address] [place] | | | | | [place], [place] | [place] [address] | | | | | [address] | [phone] | | | | | [phone] | | | +--------+---------+ + + + [...] of the procedure you must provide a truck driver heavy to take you home. [...] press against a nerve. Date Last Reviewed: 08/01/201719995926-3018 [employer]. [address] [place] [address]. All righ ts reserved. This information is [...] was oscar mmended that she have a repeat L5/S1 [...] and narcotic medications use; she currently uses [place], Flexeril and [place] bapentin. She is taking [...] has no apparent deficits with short or half-way memory. She has appropriate fund of knowledge [...] PT (multiple sessions over the years) and ambulatory care coordinator. Unfortunately Clementine Winchester continues to have significant [...]
--- OUTSIDE RECORDS SUMMARY | ~2019-10-27 | XMS | Encounter Summary ---
Demographics + + + | Address | [address] | | | [place] [address] | + + + | Home Phone | | + + + | Preferred Language | Unknown | + + + | Marital Status | | + + + | Adventism Affiliation | 1041 | + + + | Race | Unknown | + + + | Ethnic Group | Unknown | + + + Author + + + | Author | [facility] | | | and [place] | + + + | Organization | [facility] | | [...] [place], | | | | | [place] [address] | | + + + + + | Kellen Briones | ECON | [place] | | | | | [address] | | + + + + + Care Team Providers + +------+ + | Care Geochemical Laboratory Technician Name | Role | Phone | + +------+ + | Barb Marte | PCP | | + +------+ + Reason for Visit + + + | Reason | Comments | + + + | Surgery Appointment | Clearance | + + + | Surgery Appointment | Questions | + + + Encounter Details +--------+ + + + + | Date | Type | Department | Care Team | Description | +--------+ + + + + | 06/22/ | Telephone | [facility] | Monster White MD | Surgery Appointment | | 2020 | | [facility] | [address] | (Clearance ); | | | | ORTHOPEDIC SPINE | [place] | Surgery Appointment | | | | [address] | [address] | (Questions) | | | | [place] | | | | | | [address] | | | | | | [phone] | | | +--------+ + + + [...]
--- OUTSIDE RECORDS SUMMARY | ~2019-10-27 | XMS | Encounter Summary ---
Demographics + + + | Address | [address] | | | [place] [address] | + + + | Home Phone | | + + + | Preferred Language | Unknown | + + + | Marital Status | | + + + | Jehovah'S Witness Affiliation | 1041 | + + + [...] [place], | | | | | [place] [address] | | + + + + + | Kellen Briones | ECON | [place], [place] | | | | | [address] | | + + + + + Care Team Providers + +------+ + | Care Stock Crane Operator Name | Role | Phone | [...] Description | +--------+--------+ + + + | 05/31/ | Refill | [facility] | Irving Becerril, | Medication Refill | | 2015 | | NEUROSURGERY [address] | DO [address] | | | | | [address] | [address] [place], [place] | | | | | [place], [place] | [id number] | | | | | [address] | | | | | | [phone] | | | +--------+--------+ + + + [...]
--- OUTSIDE RECORDS SUMMARY | ~2019-10-27 | XMS | Encounter Summary ---
Demographics + + + | Address | [address] | | | [place] [address] | + + + | Home Phone | | + + + | Preferred Language | Unknown | + + + | Marital Status | | + + + | Orthodoxy Affiliation | 1041 | + + + | Race | Unknown | + + + | Ethnic Group | Unknown | + + + Author + + + | Author | [facility] | | | and [place] | + + + | Organization | [facility] | | | and [place] | + + + | Address | Unknown | + + + | Phone | Unavailable | + + + Support + + + + + | Name | Relationship | Address | Phone | + + + + + | Lucy Winchester | ECON | [place], | | | | | [place] [address] | | + + + + + | Kellen Briones | ECON | [place], [place] | | | | | [address] | | + + + + + Care Team Providers + +------+ + | Care Fisher Trap Name | Role | Phone | + [...] | | | [place], [place] | [address] | cervical region; DDD | | | | [address] | | (degenerative disc | | | | [phone] | | disease), cervical; | | | | | | Lumbar | | | | | | radiculopathy; DDD | | | | | | (degenerative disc | | | | | | disease), lumbar; | | | | | | Spinal stenosis of | | | | | | lumbar region with | | | | | | bzezygdpzdgls-D3-U7 | | | | | | level [...] of the procedure you must provide a local company truck driver to take you home. For [...] She did also receive epidural injections with nc on two occasions. The most recent were [...] 8. Spinal stenosis of lumbar region with sjjohydtvlnxx-H8-V5 level moderately severe 9. Facet arthritis of [...] extension x-rays of the lumbar spine at [facility]. I previously requested that these be [...] ICD-9 Code 724.4 Ms. Clementine Cortez | [facility] | | Annabella presents to the fluoroscopy suite for fluoroscopically-guided | [facility] | | bilateral L5-S1 transforaminal epidural [...] + + + + + | [facility] | [address] | [place] | [phone] | | [facility] | | [address] | | | - IMAGING | | | | + + + + + FL Facet Injection Cervical (09/24/2013 2:09 PM PDT) + + | Specimen | + + | | + + + + + | Narrative | Performed At | + + + | 09/24/13 Cervical Facet Steroid Injections Diagnosis: | [facility] | | Cervical Spondylosis ICD-9 Code 721.0 Ms. Clementine Winchester | [facility] | | presents to the fluoroscopy suite for fluoroscopically-guided C4-C5, [facility] | | C5-C6 and C6-C7 [...] ST. | [address] 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
--- OUTSIDE RECORDS SUMMARY | ~2019-10-27 | XMS | Encounter Summary ---
Demographics + + + | Address | [address] | | | [place] [address] | + + + | Home Phone | | + + + | Preferred Language | Unknown | + + + | Marital Status | | + + + | Spiritism Affiliation | 1041 | + + + | Race | Unknown | + + + | Ethnic Group | Unknown | + + + Author + + + | Author | [facility] | | | and [place] | + + + | Organization | [facility] | | | and [place] | + + + | Address | Unknown | + + + | Phone | Unavailable | + + + Support + + + + + | Name | Relationship | Address | Phone | + + + + + | Lucy Winchester | ECON | [place], | | | | | [place] [address] | | + + + + + | Kellen Briones | ECON | [place], [place] | | | | | [address] | | + + + + + Care Team Providers + +------+ + | Care Street Cleaner Name | Role | Phone | [...] | Lumbar | Marissa, | [address] | | | | | radiculopath | Tk Monreal MD | [place], | | | | | y | [address] | [place] | | | | | Procedures | [place] | [address] | | | | | [place] INJECT | [facility], [place] | Phone: | | | | | ANES/STEROID | [address] | [phone] | | | | | [place] | Phone: | Fax: | | | | | LUMBAR/SACRA | [phone] | [phone] | | | | | L [address] IMG | Fax: | | | | | | GUIDE ,1 | [phone] | | | | | | LEVEL [place] | | | | | | | [...] + + | 07/05/ | Hospital | [facility] | Bogdanowicz, | Lumbar | | 2016 | Encounter | MED CTR XRAY [address] | [address] | radiculopathy; | | | | [place] | [facility], [address] | Spinal stenosis of | | | | [place] [address] | [place] [address] | lumbar region with | | | | [phone] | [phone] | bzarhwmckyglv-C6-X3 | | | | | | level moderately | | | | | Field Health Officer, [facility] | severe | | | | | [...] with | | | | | | jvxsahvaftjya-C4-X2 | | | | | | level [...] radiculopathy ICD-10 Code M54.16 Clementine Phoenix | [facility] | | Annabella presents to the fluoroscopy suite for [facility] | | fluoroscopically-guided bilateral L5-S1 transforaminal epidural [...] + + | Performing | Address | City/State[facility] | Phone Number | | Organization | | | | + + + + + | [facility] | [address] | [place] | [phone] | | [facility] | | [address] | | | - IMAGING | | | | + + + + + documented in this encounter Visit Diagnoses + + | Diagnosis | + + | Lumbar radiculopathy Thoracic or lumbosacral neuritis or radiculitis, unspecified | + + | Spinal stenosis of lumbar region with ciepkneuupphh-S5-R3 level moderately severe | | Spinal stenosis, [...]
--- OUTSIDE RECORDS SUMMARY | ~2019-10-27 | XMS | Encounter Summary ---
Demographics + + + | Address | [address] | | | [place] [address] | + + + | Home Phone | | + + + | Preferred Language | Unknown | + + + | Marital Status | | + + + | Christianity Affiliation | 1041 | + + + | Race | Unknown | + + + | Ethnic Group | Unknown | + + + Author + + + | Author | [facility] | | | and [place] | + + + | Organization | [facility] | | [...] [place], | | | | | [place] [address] | | + + + + + | Kellen Briones | ECON | [place], [place] | | | | | [address] | | + + + + + Care Team Providers + +------+ + | Care Cloth Grader Name | Role | Phone | + [...] + + | 08/27/ | Telephone | [facility] | Ramon Real | Other | | 2012 | | [address] | MD Idris [address] | | | | | [address] | [place], [place] | | | | | [place], [place] | [address] | | | | | [address] | [phone] | | | | | [phone] | | | +--------+ + + + [...]
--- OUTSIDE RECORDS SUMMARY | ~2019-10-27 | XMS | Encounter Summary ---
Demographics + + + | Address | [address] | | | [place] [address] | + + + | Home Phone | | + + + | Preferred Language | Unknown | + + + | Marital Status | | + + + | Jew Affiliation | 1041 | + + + | Race | Unknown | + + + | Ethnic Group | Unknown | + + + Author + + + | Author | [facility] | | | and [place] | + + + | Organization | [facility] | | | and [place] | + + + | Address | Unknown | + + + | Phone | Unavailable | + + + Support + + + + + | Name | Relationship | Address | Phone | + + + + + | Lucy Winchester | ECON | [place], | | | | | [place] [address] | | + + + + + | Kellen Briones | ECON | [place], [place] | | | | | [address] | | + + + + + Care Team Providers + +------+ + | Care Ep Specialist Name | Role | Phone | [...] + + | 04/13/ | Telephone | [facility] | Irving Becerril, | Other (Return to | | 2015 | | NEUROSURGERY [address] | DO [address] | work ) | | | | [address] [facility] [address] | [address] [place], [place] | | | | | [place], [place] | [id number] | | | | | [address] | | | | | | [phone] | | | +--------+ + + + [...]
--- OUTSIDE RECORDS SUMMARY | ~2019-10-27 | XMS | Encounter Summary ---
Demographics + + + | Address | [address] | | | [place] [address] | + + + | Home Phone [...] [place], | | | | | [place] [address] | | + + + + + | Kellen Briones | ECON | [place], [place] | | | | | [address] | | + + + + + Care Team Providers + +------+ + | Care Treasury Analyst Name | Role | Phone | + +------+ + | Anna De Guzman PA-C | PCP | | + +------+ + Encounter Details +--------+ + + + + | Date | Type | Department | Care Team | Description | +--------+ + + + + | 04/15/ | Hospital | [facility] | IsakkaydenkaileeTk mathis | | | 2012 | Encounter | MED CTR XRAY [address] | T, [address] | | | | | [place] | [place], [place] | | | | | [place] [address] | [address] | | | | | [phone] | | | +--------+ + + + [...] | FL EPIDURAL STEROID | Routin | 04/17/2013 | | Results for this | | INJECTION LUMBAR | e | 12:56 PM | | procedure are in the | | TRANSFORAMINAL | | PST | | results section. | + +--------+ + + + documented in this encounter Results FL BAUTISTA Lumbar Transforaminal (04/17/2013 12:56 PM PST) + + | Specimen | + + | | + + + + + | Narrative | Performed At | + + + | [facility] | [place] | | Department [address] [facility] | [facility] | | [ rep ct [address]] [ rep [facility] | | [facility]] Signed | - IMAGING | | | | | Patient Name: CLEMENTINE WINCHESTER Physician: | | | : 1940 Age: 72 Sex: F Unit #: [id number] | | | Exam Date: 04/15/13 [facility] [facility] | | | Report #: [id number] Page: | | | %(RAD)RES..mtdd.print.filter("pg") of %(RAD) | | | RES..mtdd.print.filter("tpg") | | | | | | Accession Number: [id number] | | | EPIDURAL STEROID INJECTION, 04/15/2013 CLINICAL HISTORY: | | | ICD-9 CODE 724.4, LUMBAR RADICULOPATHY. Ms. Clementine Winchester | | | presents to the fluoroscopic suite for fluoroscopically guided | | | bilateral L5-S1 transforaminal epidural steroid injections as part | | | of conservative management of pain with lumbar radiculopathy and | | | degenerative disk disease. After informed consent was obtained, the | | | patient laid in the prone position on the fluoroscopy table. The | | | areas were identified under fluoroscopic guidance. The areas were | | | prepped and draped in a sterile fashion. A 25-gauge 1.5-inch needle | | | was inserted into each region and approximately 3 mL of buffered 1% | | | Lidocaine was infused. Then, a 22-gauge spinal needle was inserted | | | into the posterior superior transforaminal space bilaterally and | | | advanced into the epidural space under fluoroscopic guidance. | | | Confirmation into the epidural space was obtained with infusion of | | | approximately 1 mL of Isovue contrast that showed epidural flow as | | | well as nerve sheath flow. A combination of 2 mL 1% Lidocaine and 2 | | | ml of 6 mg/mL Celestone was infused divided between the two sides. | | | The patient tolerated the procedure well without complications. Pre | | | and postprocedure blood pressures were stable. The patient was given | | | verbal as well as written followup instructions. Prior to | | | the start of the procedure, the following were performed and verified | | | including correct patient identity, correct site/side marked and | | | visible, agreement of the procedure to be done, correct patient | | | positioning and an accurate procedure consent form. Any safety | | | precautions based on clinical history and/or medication use have | | | been addressed. I personally performed the procedure above. | | | Dictated Date/Time: 04/17/2013 12:56 Transcribed | | | Date/Time: 04/17/2013 14:04 Crown Attacher: | | | <<Signature on File>> | | | Tk Monreal | | | MD Marissa04/24/13 1211 <Electronically signed by Tk Monreal | | | [place] ALVARADO> Tk Ann MD 04/17/13 1256 | | | Crown Attacher: EyeLockbao Kullkhhdlhzlg36/15/13 1404 | | | | | + + + + + + + + | Performing | Address | City/State/Zipcode | Phone Number | | Organization | | | | + + + + + | [facility] [facility] [facility] | [address] | [place], [place] | [phone] | | [facility] | | [address] | | | - IMAGING | | | | + + + + + documented in this encounter Visit Diagnoses Not on filedocumented in this encounter
--- OUTSIDE RECORDS SUMMARY | ~2019-10-27 | XMS | Encounter Summary ---
Demographics + + + | Address | [address] | | | [place] [address] | + + + | Home Phone [...] [place], | | | | | [place] [address] | | + + + + + | Kellen Briones | ECON | [place], [place] | | | | | [address] | | + + + + + Care Team Providers + +------+ + | Care Production Line Assembler Name | Role | Phone | [...] Thoracic or | [place], | [address] | | | | | lumbosacral | Tk Monreal MD | [place], | | | | | neuritis or | [address] | [place] | | | | | | [place] | [address] | | | | | radiculitis, | [place], [place] | Phone: | | | | | unspecified | [address] | [phone] | | | | | Procedures | Phone: | Fax: | | | | | [place] INJECT | [phone] | [phone] | | | | | ANES/STEROID | Fax: | | | | | | [place] | [phone] | | | | | | LUMBAR/SACRA | | | | | | | [address] IMG | | | | | | | GUIDE ,1 | | | | | | | LEVEL [place] | | | | | | | TRIAMCINOLON | | | | | | | E ACET INJ | | | | | | | NOS, 10 MG | | | | | | | Bilateral | | | | | | | L5-S1 TFESI | | | | | | | appt 01/05/14 | | | +--------+--------+ + + + + Encounter Details +--------+ + + + + | Date | Type | Department | Care Team | Description | +--------+ + + + + | 02/02/ | Hospital | [facility] | [place], | Spinal stenosis of | | 2013 | Encounter | MED CTR XRAY [address] | [address] | lumbar region with | | | | [place] | [address] | druwyhvkoxpyo-E2-T5 | | | | [place] [address] | [place] [address] | level moderately | | | | [phone] | [phone] | severe (Primary Dx); | | | | | | Spondylolisthesis | | | | | Tk Ann T, | of lumbar region; | | | | | MD [address] | Lumbar radiculopathy | | | | | [place] | | | | | | [id number] | | | | | | | | | | | | Stabilizer OperatorJordan | | | | | | [place] [...] +---------+ + + | Blood Pressure | 124/75 | 02/02/2014 5:00 PM | | | | | PDT | | + +---------+ + + | Pulse | 82 | 02/02/2014 5:00 PM | | | | | PDT [...] | FL EPIDURAL STEROID | Routin | 02/02/2014 | Spinal stenosis of | Results for this | | INJECTION LUMBAR | e | 4:49 PM | lumbar region with | procedure are in the | | TRANSFORAMINAL | | PDT | ahcibnjncrswx-M3-S8 | results section. | | | | [...] 02/02/2014 Bilateral Transforaminal Epidural Steroid Injections | [facility] [...] | + + + + + | [facility] | [address] | [place] | [phone] | | [facility] | | [address] | | | - IMAGING | | | | + + + + + documented in this encounter Visit Diagnoses + + | Diagnosis | + + | Spinal stenosis of lumbar region with ycvqixiizberg-E3-F1 level moderately severe - | | Primary Spinal stenosis, lumbar region, without neurogenic claudication | + + | Spondylolisthesis of lumbar region Acquired spondylolisthesis | + + | Lumbar radiculopathy Thoracic or lumbosacral neuritis or radiculitis, unspecified | + + documented in this encounter Administered Medications + +--------+ +-------+------+ + | Medication Order | MAR | Action | Dose | Rate | Site | | | Action | Date | | | | + +--------+ +-------+------+ + | betamethasone (CELESTONE | Given | 02/03/20 | 12 mg | | Other | | SOLUSPAN) injection 12 mg 12 mg, | | 14 4:54 | | | (Comment | | Intramuscular, ONCE, 02/02/14 | | PM PDT | | | ) | | at 1700, For 1 dose, Shake well. | | | | | | | Not for IV use., | | | | | | + +--------+ +-------+------+ + +---+---+ | | | +---+---+ + +-------+ +-------+---+---+ | iohexol (OMNIPAQUE 300) 300 | Given | 02/03/20 | 4 mLs | | | | mg/mL injection 4 mL 4 mL, | | 14 4:54 | | | | | INTRATHECAL, ONCE, 02/02/14 at | | PM PDT | | | | | 1700, For 1 dose | | | | | | + +-------+ +-------+---+---+ +---+---+ | | | +---+---+ + +-------+ +-------+---+ + | lidocaine 1% injection 5 mL 5 | Given | 02/03/20 | 5 mLs | | Other | | mL, Intradermal, ONCE, Sat02/02/14 | | 14 4:54 | | | (Comment | | at 1700, For 1 dose | | PM PDT | | | ) | + +-------+ +-------+---+ + +---+---+ | | | +---+---+ + +-------+ +-------+---+---+ | sodium bicarbonate (NEUT) 4% | Given | 02/03/20 | 2 mLs | | | | injection 2 mL 2 mL, Topical, | | 14 4:54 | | | | | ONCE, 02/02/14 at 1700, For 1 | | PM PDT | | | | | dose | | | | | | + +-------+ +-------+---+---+ +---+---+ | | | +---+---+ documented in this encounter"
--- OUTSIDE RECORDS SUMMARY | ~2019-10-27 | XMS | Encounter Summary ---
Demographics + + + | Address | [address] | | | [place] [address] | + + + | Home Phone | | + + + | Preferred Language | Unknown | + + + | Marital Status | | + + + | Latter-Day Affiliation | [id number] | + + + | Race | Unknown | + + + | Ethnic Group | Unknown | + + + Author + + + | Author | [facility] | | | and [place] | + + + | Organization | [facility] | | | and [place] | + + + | Address | Unknown | + + + | Phone | Unavailable | + + + Support + + + + + | Name | Relationship | Address | Phone | + + + + + | Lucy Winchester | ECON | [place], | | | | | [place] [address] | | + + + + + | Keleln Briones | ECON | [place], [place] | | | | | [address] | | + + + + + Care Team Providers + +------+ + | Care Chief Enterprise Architect Name | Role | Phone | + +------+ + | Anna De Guzman PA-C | PCP | | + +------+ + Encounter Details +--------+ + + + + | Date | Type | Department | Care Team | Description | +--------+ + + + + | 06/04/ | Hospital | [facility] | RealRamon das | Neck pain | | 2012 - | Encounter | MED CTR XRAY [address] | [address] | | | | [address] | [place], [place] | | | 06/06/ | | [place] [address] | [address] | | | 2012 | | [phone] | [phone] | | | | | | [...] of this encounter Plan of Treatment + +---------+--------+ + + | Name | [...] Performed At | + + + | [facility] | [place] | | Department [address] [facility] | [facility] | | [ [address] [ rep [facility] | | [facility]] Signed | - IMAGING | | | | | Patient Name: CLEMENTINE WINCHESTER Physician: | | | ARRE.01 : 1940 Age: 72 Sex: F Unit #: [id number] | | | Exam Date: 06/04/12 Location: [facility] [place] | | | Report #: [id number] Page: | | | %(RAD)RES..mtdd.print.filter("pg") of %(RAD) | | | RES..mtdd.print.filter("tpg") | | | | | | Accession Number: [id number] | | | CERVICAL SPINE, 06/04/2012 CLINICAL [...] Transcribed | | | Date/Time: 06/04/2012 17:12 Planning Coordinator: | | | <<Signature on File>> | | | | | | Gordon Burrell MD06/05/12 0852 <Electronically signed by | | | Gordon Burrell MD> Gordon Burrell MD 06/04/12 | | | 1701 Planning Coordinator: Zulema Bduixndcgfmol69/02/132 | | | Ramon Real MD | | + + + + + + + + | Performing | Address | City/State/Zipcode | Phone Number | | Organization | | | | + + + + + | [facility] | [address] | [place] | [phone] | | [facility] | | [address] | | | - IMAGING | | | | + + + + + documented in this encounter Visit Diagnoses + + | Diagnosis | + + | Neck pain Cervicalgia | + + documented in this encounter
--- OUTSIDE RECORDS SUMMARY | ~2019-10-27 | XMS | Encounter Summary ---
Demographics + + + | Address | [address] | | | [place] [address] | + + + | Home Phone [...] Author | [facility] | | | and [place] | + + + | Organization | [facility] | | [...] [place], | | | | | [place] [address] | | + + + + + | Kellen Briones | ECON | [place] | | | | | [address] | | + + + + + Care Team Providers + +------+ + | Care Tomato Grader Name | Role | Phone | + +------+ + | Barb Marte | PCP | | + +------+ + Reason for Visit + + + | Reason | Comments | + + + | Follow-up | 3 month / stress test | + + + Encounter Details +--------+---------+ + + + | Date | Type | Department | Care Team | Description | +--------+---------+ + + + | 04/02/ | Office | [facility] | Agata Tinajero DO | Atherosclerosis of | | 2019 | Visit | CARDIOLOGY [place] | [address] | [place] coronary | | | | [address] | [place], [place] | artery of [place] | | | | [address] | [phone] | heart without angina | | | | [place] | | pectoris (Primary | | | | [address] | | Dx); Essential | | | | [phone] | | hypertension; | | | | | | Cerebrovascular | | | | | | accident (CVA), | | | | | | unspecified | | | | | | mechanism (HCC); | | | | | | 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| | hyperlipidemia; H/O | | | | | | CABG (coronary | | | | | | artery bypass graft) | +--------+---------+ + + + Social History [...] + + + | Blood Pressure | 88/58 | 04/02/2019 2:06 PM | | | | | PDT | | + + + + + | Pulse | 77 | 04/02/2019 2:06 PM | | | | | PDT [...] Weight | 62.1 kg (137 lb) | 04/02/2019 2:06 PM | | | | | PDT | | + + + + + | Height | 160 cm (5' 3") | 04/02/2019 2:06 PM | | | | | PDT | | + + + + + | Body Mass Index | 24.27 | 04/02/2019 2:06 PM | | | | | PDT | | + + + + + documented in this encounter Progress Notes Agata Tinajero, - 04/02/2019 2:00 PM PDT [facility] Cardiology Follow Up Note Reason for Consultation: Chest pain Requesting Physician: Barb Marte History Obtained From: patient HISTORY OF PRESENT ILLNESS: Cardiac Problem List 1. CAD s/p CABGx4 in [facility] 2009 S/P WEBSTER to LAD, SVG-OM1, OM2, PDA 2. HTN 3. History CVA 4. HLD Non Cardiac Problem List 5. DM II 6. Arthritis 7. Asthma 8. Chronic pain 9. DDD 10. GERD 11. History right breast CA s/p mastectomy and chemo The patient is a 78-year-old female with the above past medical histories, who presents to the Cardiology office for initial consultation regarding episodes of chest pain. Over the l ast 8 or 9 months, she has experienced 2 episodes of substernal chest pain, which have been alleviated with nitroglycerin and baby aspirin. It takes about 5 minutes for her symptoms t o go away. Both of these symptoms have occurred at night. She has never been tested for ob structive sleep apnea. She reports that prior to her bypass surgery, her anginal symptoms w ere indigestion. Her symptoms that she experienced the last 2 times were similar in nature to these. She is very functionally limited primarily due to low back pain. She ambulates w ith a walker and is not able to walk more than from room to room in her home. She denies an y exertional symptoms recently with her limited activity. She denies any shortness of breat h. She is being evaluated for possible lumbar fusion surgery. She denies any orthopnea or PND. She has had some bilateral lower extremity swelling recently. Her blood pressures tod ay are noted to be low. She denies any issues with dizziness or lightheadedness or syncope. She denies any palpitations. Interim History I last saw the patient on 12/18/2018. At that time, we ordered a pharmacologic nuclear str ess test. We also added Lasix 20 mg by mouth daily for bilateral lower extremity edema. We also discontinued her amlodipine at that time as her blood pressure was noted to be low. H er stress test was done on 02/17/2019 and was negative for any evidence of infarct or ischem ia. She did notice that she had significant improvement in her lower extremity swelling af ter the addition of Lasix. She denies any chest pains or shortness of breath since we last saw each other. She has had several falls due to back issues. She is planning on having an upcoming back surgery to address this issue. She did recently start pool therapy. Her blo od pressure today is noted to be low at 88/58 and she has noticed some episodes of lighthead edness and dizziness at home. She denies any overt syncopal episodes. Review of Systems Constitutional: Negative for fatigue. HENT: Negative for nosebleeds. Eyes: Negative for visual disturbance. Respiratory: Negative for cough and shortness of breath. Cardiovascular: see HPI Gastrointestinal: Negative for nausea, vomiting, abdominal pain and blood in stool. She has GERD Genitourinary: Negative for hematuria or dysuria. Musculoskeletal: Negative for myalgias, she has back pain Skin: Negative for color change. Neurological: Negative for dizziness, syncope and numbness. Hematological: Does not bruise/bleed easily. Psychiatric/Behavioral: The patient is not nervous/anxious. PAST MEDICAL & SURGICAL HISTORY Past Medical History Diagnosis Date Arthralgia Asthma 12/18/2018 Coronary artery disease Disorder of thyroid GERD (gastroesophageal reflux disease) Hyperlipidemia Hypertension Lumbar radiculopathy 07/23/2012 Malignant neoplasm (HCC) right breast Type 2 diabetes mellitus (HCC) Past Surgical History Procedure Laterality Date CARDIAC SURGERY CERVICAL FUSION CORONARY ARTERY BYPASS GRAFT SPINE SURGERY MEDICATIONS Home Medications Outpatient Encounter Prescriptions as of 12/18/2018 Medication Sig Dispense Refill amLODIPine (NORVASC) 10 MG tablet Take 1 tablet by mouth daily. 30 tablet 1 aspirin 81 MG chewable tablet Take 1 tablet by mouth daily with breakfast. 30 tablet 1 aspirin 81 MG tablet Take 81 mg by mouth daily. atorvastatin (LIPITOR) 40 MG tablet Take 1 tablet by mouth nightly. 0 Calcium-Vitamin D 600-200 MG-UNIT per tablet Take 1 tablet by mouth daily. Cholecalciferol (VITAMIN D3) 3000 units TABS Take by mouth. Cyanocobalamin (VITAMIN B 12 PO) Take by mouth. DULoxetine (CYMBALTA) 30 MG capsule Take 30 mg by mouth daily. FREESTYLE LITE test strip USE TO TEST BLOOD GLUCOSE ONCE D 2 gabapentin (NEURONTIN) 100 MG capsule Take 1 capsule by mouth 2 (two) times daily. 60 c apsule 1 levothyroxine (SYNTHROID) 25 MCG tablet Take 25 mcg by mouth daily. lisinopril (ZESTRIL) 20 MG tablet Take 1 tablet by mouth daily. 30 tablet 1 MAGNESIUM PO Take 250 mg by mouth daily. metFORMIN (GLUCOPHAGE) 500 MG tablet Take 500 mg by mouth daily. nitroGLYCERIN (NITROSTAT) 0.[address] 1 tablet under the tongue daily as nee ded. 0 omeprazole (PRILOSEC) 40 MG capsule Take 1 capsule by mouth daily. 2 ranitidine (ZANTAC) 150 MG tablet Take 1 tablet by mouth 2 (two) times daily. 5 VENTOLIN HFA 108 (90 Base) MCG/ACT inhaler Take 1 puff by mouth 4 (four) times daily as needed. 2 benzonatate (TESSALON) 200 MG capsule Take 200 mg by mouth daily as needed. clopidogrel (PLAVIX) 75 MG tablet Take 1 tablet by mouth daily. 0 fentaNYL (DURAGESIC) 25 MCG/HR Place 1 patch onto the skin every third day. (Patient no t taking: Reported on 12/18/2018) 10 patch 0 No facility-administered encounter medications on file as of 12/18/2018. Allergies Allergies Allergen Reactions Adhesive Tape Rash Muscle Relief [Capsaicin] Rash Muscle relaxers Tizanidine Mental Changes FAMILY HISTORY Family History Problem Relation Age of Onset Heart Problems Mother Cancer Mother Heart disease Mother Heart failure Mother Heart Problems Father Coronary art dis Father SOCIAL HISTORY Social History Social History Marital status: Spouse name: N/A Number of children: N/A Years of education: N/A Occupational History Not on file. Social History Main Topics Smoking status: Never Smoker Smokeless tobacco: Never Used Alcohol use Yes Comment: an occasional glass of wine Drug use: No Sexual activity: Not on file Other Topics Concern Not on file Social History Narrative No narrative on file PHYSICAL EXAM Vitals: 04/02/19 1406 BP: (!) 88/58 Pulse: 77 PainSc: 0 - No pain PainLoc: Chest Physical Exam GENERAL: Well developed, well nourished, in no distress. Appears approximately stated age . HEENT: Normocephalic, atraumatic. EYES: PERRL, sclerae anicteric, no xanthelsasmas NECK: No JVD, lymphadenopathy, thyromegaly, bruits. Carotid pulses are 2+ bilaterally LUNGS: Clear bilaterally, with no rales, rhonchi or wheezing noted, respirations unlabored HEART: Nondisplaced PMI, regular rate and rhythm, S1, S2 normal. No murmurs, rubs or gall ops noted. ABDOMEN: Soft, nontender, no organomegaly, masses or bruits. Bowel sounds are normal in a ll 4 quadrants. EXTREMITIES: No edema. Radial pulses 2+ bilaterally. DP and PT pulses are 2+ bilaterally. SKIN: Warm and dry, capillary refill is normal, no lesions. NEUROLOGIC: Awake, alert and oriented x 3. No focal motor deficits. PSYCHIATRIC: Appropriate, affect appears normal DATA Results for CLEMENTINE WINCHESTER ( ) as of 12/20/2018 16:34 Ref. Range 02/05/2018 09:28 SODIUM Latest Ref Range: 135 - 145 mmol/L 134 (L) POTASSIUM Latest Ref Range: 3.5 - 4.9 mmol/L 3.2 (L) CHLORIDE Latest Ref Range: 99 - 109 mmol/L 94 (L) CO2 Latest Ref Range: 23 - 32 mmol/L 29 ANION GAP AGAP Latest Ref Range: 5 - 20 mmol/L 14 GLUCOSE Latest Ref Range: 65 - 99 mg/dL 101 (H) BUN Latest Ref Range: 8 - 25 mg/dL 16 CREATININE Latest Ref Range: 0.50 - 1.00 mg/dL 0.78 BUN/CREAT Unknown 21 CALCIUM Latest Ref Range: 8.5 - 10.5 mg/dL 9.0 EGFR Latest Ref Range: >60 mL/min/1.73m2 >60 EK12/18/18 ordered and reveiwed by myself NSR 85BPM, left axis deviation, incomplete RBBB , anterior septal infarct age undetermined Last Echo: 01/27/18 Impression 1. Overall left ventricular systolic function is normal with, an EF between 65 - 70 %. 2. The right ventricle is normal in size, but is not well visualized on this study. 3. No significant valvular abnormalities. 4. There is no evidence for an underlying cardiac cause of her neurologic event on this study. 5. In comparison to the previous echocardiographic s chris, done 08/20/17, several changes are noted, as detailed below. Last stress test: 02/17/19 1. This is a normal Lexiscan Cardiolite stress test 2. No evidence of infarct or ischemia 3. Hyperdynamic LV function, calculated EF 95% 4. This is a low risk study 07/06/09 IMPRESSION 1. Large region of ischemia involving the inferior wall, particularly proximally in its mid aspect, with extension into the inferolateral wall distally and proximal septal wall. 2. Probable tiny associated infarct involving the proximal inferior wall laterally. Last cath: 07/2009 CORONARY ANGIOGRAPHY 1. Left main had a distal 30% to 40% plaque. 2. The LAD had an ostial 60% to 70% stenosis followed by proximal 70% stenosis. The rest of the LAD had mild diffuse disease. The junction between the mid and the distal segment had 3 tandem 50% plaques. 3. The left circumflex artery had a proximal ulcerated 90% stenosis right at the takeoff of the first diagonal branch. The first diagonal branch was a long artery with a long 85% stenosis extending from the ostium to the proximal segment. The fourth obtuse marginal branch was a large-caliber vessel with an ostial 90% stenosis. 4. The right coronary artery was totally occluded in its proximal segment and was filling distally via [id number]-[id number] collaterals. LEFT VENTRICULOGRAM Left ventriculogram revealed normal left ventricular systolic function with ejection fraction of 60% with severe posterobasal hypokinesis. Carotid US: AAA screening: Lower extremity US: OTHERS: ASSESSMENT & PLAN 1. Pre operative cardiovascular exam 2. CAD s/p CABGx4 in [facility] 2009 S/P [place] to LAD, SVG-OM1, OM2, PDA 2009 3. HTN 4. History CVA 5. HLD 6. DM II 7. Arthritis 8. Asthma 9. Chronic pain 10. DDD 11. GERD 12. History right breast CA s/p mastectomy and chemo - The patient is a 78-year-old female with the above past medical history who presents to [facility] cardiology office for follow up. She has had 2 episodes of her typical anginal chest tom n in the past few months. Her symptoms were both nocturnal. She is very functionally limit ed due to issues with low back pain and may be undergoing lumbar fusion in the future. She h ad a recent nuclear stress test which was negative for ischemia. She denies any CP since we last saw eachother. From a cardiac standpoint no further testing is warranted prior to her u pcoming back surgery. Her BP is still noted to be low today. - Continue ASA 81mg po daily - Continue atorvastatin 40mg po daily - Continue lasix 20mg po daily with potassium replacement - Decrease lisinopril to 5mg po daily - Follow up in 3 months Thank you for allowing me to participate in the care of this patient. Primary Care Physician: Barb Tinajero DO documented in this enco unter Plan of Treatment Not on filedocumented as of this encounter Visit Diagnoses + + | Diagnosis | + + | Atherosclerosis of [place] coronary artery of [place] heart without angina pectoris - | | Primary | + + | Essential hypertension Unspecified essential hypertension | + + | Cerebrovascular accident (CVA), unspecified mechanism (HCC) | + + | Other hyperlipidemia | + + | H/O CABG (coronary artery bypass graft) Postsurgical aortocoronary bypass status | + + documented in this encounter
--- OUTSIDE RECORDS SUMMARY | ~2019-10-27 | XMS | Encounter Summary ---
Demographics + + + | Address | [address] | | | [place] [address] | + + + | Home Phone [...] [place], | | | | | [place] [address] | | + + + + + | Kellen Briones | ECON | [place], [place] | | | | | [address] | | + + + + + Care Team Providers + +------+ + | Care Channel Marketing Coordinator Name | Role | Phone | [...] + + | 02/10/ | Office | [facility] | Tk Ann | Lumbar radiculopathy | | 2012 | Visit | PHYSIATRY [address] | [address] | (Primary Dx); DDD | | | | [address] | [address] [place] | (degenerative disc | | | | [place] | [address] | disease), lumbar; | | | | [address] | | Spondylolisthesis of | | | | [phone] | | lumbar region; | | | | | | Spinal stenosis of | | | | | | lumbar region with | | | | | | [id number] | | | | | | level moderately | | | | | | severe; Facet | | | | | | arthritis of lumbar | | | | | | region-Most severe | | | | | | at L4-L5,L5-S1; CO | | | | | | (myocardial | | | | | | infarction) ([facility]); | | | | | | Cancer ([facility]); | | | | | | Diabetes mellitus | | | | | | ([facility]); Coronary | | | | | | [...] our off ice. Please also provide a entry level truck driver to take you home on [...] has actually been seeing Dr. Jordan in [facility] the neck issues and will be receiving [...] 4. Spinal stenosis of lumbar region with [id number] level moderately severe 5. Facet arthritis of [...] x-rays of t he lumbar spine at [facility]. I will request these be placed on I-site. She h as previously seen Dr. Real and has been in contact with Dr. Becerril's office in the [facility]. I would be happy to provide a [...] | Spinal stenosis of lumbar region with [id number] level moderately severe | | Spinal stenosis, lumbar region, without neurogenic claudication | + + | Facet arthritis of lumbar region-Most severe at L4-L5,L5-S1 Lumbosacral spondylosis | | without myelopathy | + + | CO (myocardial infarction) (HCC) Acute myocardial infarction, unspecified [...] of unspecified type of vessel, | | upper [place] or graft | + + | Trochanteric bursitis of right hip Enthesopathy of hip region | + + | Cervical stenosis of spinal canal Spinal stenosis in cervical region | + + | Spondylolisthesis of cervical region Acquired spondylolisthesis | + + documented in this encounter
--- OUTSIDE RECORDS SUMMARY | ~2019-10-27 | XMS | Encounter Summary ---
Demographics + + + | Address | [address] | | | [place] [address] | + + + | Home Phone [...] + + + + + | Lucy Winchseter | ECON | [place], | | | | | [place] [address] | | + + + + + | Kellen Briones | ECON | [place] | | | | | [address] | | + + + + + Care Team Providers + +------+ + | Care Flume Worker Name | Role | Phone | [...] | | | [address] | [place] [address] | degenerative disc | | | | [place], [place] | [phone] | disease | | | | [address] | | | | | | [phone] | | | +--------+ + + + [...]
--- OUTSIDE RECORDS SUMMARY | ~2019-10-27 | XMS | Encounter Summary ---
Demographics + + + | Address | [address] | | | [place] [address] | + + + | Home Phone | | + + + | Preferred Language | Unknown | + + + | Marital Status | | + + + | Druze Affiliation | 1041 | + + + | Race | Unknown | + + + | Ethnic Group | Unknown | + + + Author + + + | Author | [facility] | | | and [place] | + + + | Organization | [facility] | | | and [place] | + + + | Address | Unknown | + + + | Phone | Unavailable | + + + Support + + + + + | Name | Relationship | Address | Phone | + + + + + | Lucy Winchester | ECON | [place], | | | | | [place] [address] | | + + + + + | Kellen Briones | ECON | [place] | | | | | [address] | | + + + + + Care Team Providers + +------+ + | Care Survey Questionnaire Designer Name | Role | Phone | + +------+ + | Barb Marte | THANG | | + +------+ + Encounter Details +--------+ + + + + | Date | Type | Department | Care Team | Description | +--------+ + + + + | 06/19/ | Prep for | [facility] | [address] | Type 1 diabetes | | 2020 | Procedure | [facility] | [address] | mellitus without | | | | ORTHOPEDIC SPINE | [address] | complication (HCC) | | | | [address] | [place] [address] | (Primary Dx); Lumbar | | | | [place], [place] | [phone] | degenerative disc | | | | [address] | | disease; | | | | [phone] | | Spondylolisthesis of | | | [...] | | + +---------+--------+ + + | ECG 12 lead | ECG | Routin | Type 1 diabetes | Expected: | | | | e | mellitus without | 07/08/2019, Expires: | | | | | complication (HCC) | 06/19/2020 | | | | | Lumbar degenerative | | | | | | disc disease | | | | | | 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 | | + +---------+--------+ + + | XR Chest PA and | Imaging | Routin | Type 1 diabetes | Expected: | | Lateral | | e | mellitus without | 07/08/2019, Expires: | | | | | complication (HCC) | 06/19/2020 | | | | | Lumbar degenerative | | | | | | disc disease | | | | | | 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 | | + +---------+--------+ + + documented as of this encounter Results MRSA LISA (07/08/2019 4:41 PM PST) + + + [...] | | | | performed at [facility] | | LABORATORY | | | | [address];[place], [place] | | | | | | [address] | | | | + + + + + + + + | Specimen | + + | Tissue - Both | | anterior nares (body | | structure) | + + + + + + + | Performing | Address | City/State/Zipcode | Phone Number | | Organization | | | | + + + + + | [facility] | [address] | [place] [address] | [phone] | + + + + + Type [...] Antibody | Testing performed at | | [facility] | | | Screen | [facility];[address] | | LABORATORY | | | | [address];[place] [address] | | | | + + + + + + + + | Specimen | + + | Blood | + + + + + + + | Performing | Address | City/State/Zipcode | Phone Number | | Organization | | | | + + + + + | [facility] | [address] | [place] [address] | [phone] | + + + + + Hemoglobin A1C (07/08/2019 4:39 PM PST) + + + + + + | Component | Value | Ref Range | Performed | Pathologist | | | | | At | Signature | + + + + + + | Hemoglobin | 6.3 (H)Comment: HbA1c | 4.0 - 6.0 % | [facility] | | | A1c | method [...] | 134Comment: Estimated | <154 mg/dL | [facility] | | | Average | Average Glucose | | LABORATORY | | | Glucose | calculated from | | | | | | hemoglobin A1c by use of | | | | | | the ADArecommended | | | | | | formula.Testing | | | | | | performed at [facility], [address] | | | | | | [facility], | | | | | | [place] [address] | | | | + + + + + + + + | Specimen | + + | Blood | + + + + + + + | Performing | Address | City/State/Zipcode | Phone Number | | Organization | | | | + + + + + | [facility] | [address] | [place] [address] | [phone] | + + + + + PTT (07/08/2019 4:39 PM PST) + + + + + + | Component | Value | Ref Range | Performed | Pathologist | | | | | At | Signature | + + + + + + | PTT | 30Comment: Testing | 23 - 32 seconds | [facility] | | | | performed at [facility];[address] | | LABORATORY | | | | [address];[place], [place] | | | | | | [address] | | | | + + + + + + + + | Specimen | + + | Blood | + + + + + + + | Performing | Address | City/State/Zipcode | Phone Number | | Organization | | | | + + + + + | [facility] | [address] | [place] [address] | [phone] | + + + + + Protime INR (07/08/2019 4:39 PM PST) + + + + + + | Component | Value | Ref Range | Performed | Pathologist | | | | | At | Signature | + + + + + + | INR | 1.0Comment: REFERENCE | | [facility] | | | | RANGE:0.9 - [...] | | | | performed at [facility];[address] | | | | | | [address];[place] | | | | | | [address] | | | | + + + + + + + + | Specimen | + + | Blood | + + + + + + + | Performing | Address | City/State/Zipcode | Phone Number | | Organization | | | | + + + + + | [facility] | [address] [facility] | [place] [address] | [phone] | + + + + + Comprehensive [...] 14 | 10 - 65 U/L | [facility] | | | | | | LABORATORY | | + + + + + + | Estimated | 27 (L)Comment: GFR <60: | >60 | [facility] | | | GFR | CHRONIC [...] | | | | | performed at [facility], [address] | | | | | | [facility], | | | | | | [place] [address] | | | | + + + + + + + + | Specimen | + + | Blood | + + + + + + + | Performing | Address | City/State/Zipcode | Phone Number | | Organization | | | | + + + + + | [facility] | [address] | [place] [address] | [phone] | + + + + + CBC [...] | | | Absolute | performed at [facility], [address] | K/uL | LABORATORY | | | | [address], | | | | | | [place] [address] | | | | + + + + + + + + | Specimen | + + | Blood | + + + + + + + | Performing | Address | City/State/Zipcode | Phone Number | | Organization | | | | + + + + + | [facility] | [address] | [place] [address] | [phone] | + + + + + documented in this encounter Visit Diagnoses + + | Diagnosis | + + | Type 1 diabetes mellitus without complication (HCC) - Primary Type I (juvenile type) |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 without mention of complication, not stated as uncontrolled | + + | Lumbar degenerative disc disease Degeneration of lumbar or lumbosacral intervertebral | | disc | + + | Spondylolisthesis of lumbar region Acquired spondylolisthesis | + + documented in this encounter"
--- OUTSIDE RECORDS SUMMARY | ~2019-10-27 | XMS | Encounter Summary ---
Demographics + + + | Address | [address] | | | [place] [address] | + + + | Home Phone [...] [place], | | | | | [place] [address] | | + + + + + | Kellen Briones | ECON | [place] | | | | | [address] | | + + + + + Care Team Providers + +------+ + | Care Vending Machine Mechanic Name | Role | Phone | + +------+ + | Barb Marte | PCP | | + +------+ + Encounter Details +--------+ + + + + | Date | Type | Department | Care Team | Description | +--------+ + + + + | 01/31/ | Hospital | [facility] | Conversion | Diagnosis unknown | | 2018 | Encounter | CONVERSION DEP [address] | Transaction, | | | | | [address] | Provider Unknown | | | | | [place] | [phone] | | | | | [address] | | | | | | [phone] | | | +--------+ + + + [...]
--- OUTSIDE RECORDS SUMMARY | ~2019-10-27 | XMS | Encounter Summary ---
Demographics + + + | Address | [address] | | | [place] [address] | + + + | Home Phone | | + + + | Preferred Language | Unknown | + + + | Marital Status | | + + + | Restorationism Affiliation | 1041 | + + + [...] [place], | | | | | [place] [address] | | + + + + + | Kellen Briones | ECON | [place], [place] | | | | | [address] | | + + + + + Care Team Providers + +------+ + | Care Slab Worker Name | Role | Phone | + +------+ + | Anna De Guzman PA-C | PCP | | + +------+ + Reason for Visit + + + | Reason | Comments | + + + | Imaging Only | Cervical xray | + + + Encounter Details +--------+ + + + + | Date | Type | Department | Care Team | Description | +--------+ + + + + | 04/04/ | Telephone | [facility] | Irving Becerril, | Imaging Only | | 2016 | | [address] | DO [address] | (Cervical xray ) | | | | [address] | [address] [place], [place] | | | | | [place], [place] | [id number] | | | | | [address] | | | | | | [phone] | | | +--------+ + + + [...]
--- OUTSIDE RECORDS SUMMARY | ~2019-10-27 | XMS | Encounter Summary ---
Demographics + + + | Address | [address] | | | [place] [address] | + + + | Home Phone [...] [place], | | | | | [place] [address] | | + + + + + | Kellen Briones | ECON | [place], [place] | | | | | [address] | | + + + + + Care Team Providers + +------+ + | Care Car Hop Name | Role | Phone | + [...] + + | 04/04/ | Telephone | [facility] | Irving Becerril, | Imaging Only | | 2016 | | [address] | DO [address] | (Cervical xray ) | | | | [address] | [address] [place], [place] | | | | | [place], [place] | [id number] | | | | | [address] | | | | | | [phone] | | | +--------+ + + + [...]
--- OUTSIDE RECORDS SUMMARY | ~2019-10-27 | XMS | Encounter Summary ---
Demographics + + + | Address | [address] | | | [place] [address] | + + + | Home Phone | | + + + | Preferred Language | Unknown | + + + | Marital Status | | + + + | Quaker Affiliation | 1041 | + + + | Race | Unknown | + + + | Ethnic Group | Unknown | + + + Author + + + | Author | [facility] | | | and [place] | + + + | Organization | [facility] | | [...] [place], | | | | | [place] [address] | | + + + + + | Kellen Briones | ECON | [place], [place] | | | | | [address] | | + + + + + Care Team Providers + +------+ + | Care Prize Fighter Name | Role | Phone | + +------+ + | Anna De Guzman PA-C | PCP | | + +------+ + Encounter Details +--------+ + + + + | Date | Type | Department | Care Team | Description | +--------+ + + + + | 06/23/ | Hospital | [facility] | Donta Chris | | | 2012 - | Encounter | MED CTR XRAY [address] | MD [address] | | | | | [address] | [facility] [address] | | | 06/25/ | | [place] [address] | [place] [address] | | | 2012 | | [phone] | [phone] | | | | | | | [...] Performed At | + + + | [facility] Diagnostic Imaging | [place] | | Department [address], [place] | [facility] | | [ rep ct [address]] [ rep ct [facility] | | st zip] Signed | - IMAGING | | | | | Patient Name: CLEMENTINE WINCHESETR Physician: | | | CHAP.20 : 1940 Age: 72 Sex: F Unit #: [id number] | | | Exam Date: 06/23/12 Location: [facility] | | | Report #: [id number] Page: | | | %(RAD)RES..mtdd.print.filter("pg") of %(RAD) | | | RES..mtdd.print.filter("tpg") | | | | | | Accession Number: [id number] | | | UNENHANCED MRA HEAD WITH THREE-DIMENSIONAL VASCULAR RECONSTRUCTION, | | | 06/23/2012 CLINICAL HISTORY: 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 COMPARISON: Brain | | | MRI from the same day. TECHNIQUE: Axial unenhanced 3D | | | uiux-yo-egxwej MRA images are performed through the [place] [facility] [place] | | | and major [...] Transcribed | | | Date/Time: 06/24/2012 10:05 Social Insurance Administrator: | | | <<Signature on File>> | | | Papito Garcia | | | MD Augustus06/24/122052 <Electronically signed by Papito Coffman MD> | | | Papito Coffman MD 06/24/12 1033 Social Insurance Administrator: | | | [employer] Swehqbigrpaka32/22/13 1005 Chris Longo MD | | | | | + + + + + + + + | Performing | Address | City/State/Zipcode | Phone Number | | Organization | | | | + + + + + | [facility] | [address] | [place], [place] | [phone] | | [facility] | | [address] | | | - IMAGING | | | | + + + + + MRI Brain w wo Contrast (06/24/2012 9:51 AM PST) + + | Specimen | + + | | + + + + + | Narrative | Performed At | + + + | [facility] Diagnostic Imaging | [place] | | Department [address] [place] | [facility] | | [ rep ct street[address]2] [ rep ct city | [facility] | | st zip] Signed | - IMAGING | | | | | Patient Name: CLEMENTINE WINCHESTER Physician: | | | CHAP.20 : 1940 Age: 72 Sex: F Unit #: [id number] | | | Exam Date: 06/23/12 Location: [facility] | | | Report #: [id number] Page: | | | %(RAD)RES..mtdd.print.filter("pg") of %(RAD) | | | RES..mtdd.print.filter("tpg") | | | | | | Accession Number: [id number] | | | UNENHANCED AND ENHANCED BRAIN [...] Transcribed Date/Time: 06/24/2012 10:00 | | | Social Insurance Administrator: <<Signature on File>> | | | Papito Avendaño | | Jose Coffman MD06/24/122052 <Electronically signed by Papito Coffman | | | > Papito Coffman MD 06/24/12 0951 Social Insurance Administrator: | | | [employer] Jlsebawkqdvir57/22/13 1000 Chris Longo MD | | | | | + + + + + + + + | Performing | Address | City/State/Zipcode | Phone Number | | Organization | | | | + + + + + | [facility] | [address] | [place] | [phone] | | [facility] | | [address] | | | - IMAGING | | | | + + + + + documented in this encounter Visit Diagnoses Not on filedocumented in this encounter
--- OUTSIDE RECORDS SUMMARY | ~2019-10-27 | XMS | Encounter Summary ---
Demographics + + + | Address | [address] | | | [place] [address] | + + + | Home Phone [...] [place], | | | | | [place] [address] | | + + + + + | Kellen Briones | ECON | [place], [place] | | | | | [address] | | + + + + + Care Team Providers + +------+ + | Care Electronic Organ Mechanic Name | Role | Phone | [...] | Cervical | Marissa, | [address] | | | | | spondylosis | Tk Monreal MD | [place], | | | | | Procedures | [address] | [place] | | | | | PA INJ | [place] | [address] | | | | | DX/THER AGNT | [facility], [place] | Phone: | | | | | [place] | [address] | [phone] | | | | | [address], | Phone: | Fax: | | | | | | [phone] | [phone] | | | | | CERV/THORAC, | Fax: | | | | | | 1ST LEVEL | [phone] | | | | | | PA INJ | | | | | | | DX/THER AGNT | | | | | | | [place] | | | | | | | [address] JO[address], | | | | | | | | | | | | | | CERV/THORAC, | | | | | | | 2ND LEVEL | | | | | | | PA INJ | | | | | | | DX/THER AGNT | | | | | | | [place] | | | | | | | [address] JOINT, | | | | | | | | | | | | | | CERV/THORAC, | | | | | | | ADD LEVEL | | | | | | | PA | | | | | | | [...] + + | 11/29/ | Hospital | [facility] | [place], | Cervical stenosis of | | 2016 | Encounter | MED CTR XRAY [address] | [address]YAAN [address] | spinal canal; | | | | [address] [place] | [facility] [address] | Spondylolisthesis of | | | | [place] [address] | [place] [address] | cervical region; | | | | [phone] | [phone] | Neck pain on right | | | | | | side; Facet | | | | | Research Quality Assurance Analyst, [facility] | arthritis of | | | | [...] Arthritis ICD-10 Code M43.12 Clementine [place] | [facility] | | presents to the fluoroscopy suite for fluoroscopically-guided [facility] | | bilateral right C3, C4 [...] + + | Performing | Address | City/State/[facility] | Phone Number | | Organization | | | | + + + + + | [facility] | [address] | [place] | [phone] | | [facility] | | [address] | | | - IMAGING | | [...]
--- OUTSIDE RECORDS SUMMARY | ~2019-10-27 | XMS | Encounter Summary ---
Demographics + + + | Address | [address] | | | [place] [address] | + + + | Home Phone [...] [place], | | | | | [place] [address] | | + + + + + | Kellen Briones | ECON | [place], [place] | | | | | [address] | | + + + + + Care Team Providers + +------+ + | Care Accountant Manager Name | Role | Phone | + +------+ + | Barb Marte | PCP | | + +------+ + Reason for Visit + + + | Reason | Comments | + + + | Procedure | | + + + Encounter Details +--------+ + + + + | Date | Type | Department | Care Team | Description | +--------+ + + + + | 01/15/ | Telephone | [facility] | Leonard [place]raz[place] | Procedure | | 2019 | | [place] [address] MD [address] | | | | | [address] | [address] [place] | | | | | [place], [place] | [place] [address] | | | | | [address] | [phone] | | | | | [phone] | | | +--------+ + + + [...]
--- OUTSIDE RECORDS SUMMARY | ~2019-10-27 | XMS | Encounter Summary ---
Demographics + + + | Address | [address] | | | [place] [address] | + + + | Home Phone [...] [place], | | | | | [place] [address] | | + + + + + | Kellen Briones | ECON | [place], [place] | | | | | [address] | | + + + + + Care Team Providers + +------+ + | Care Brick Dropper Name | Role | Phone | + +------+ + | Anna De Guzman PA-C | PCP | | + +------+ + Encounter Details +--------+ + + + + | Date | Type | Department | Care Team | Description | +--------+ + + + + | 03/07/ | Preadmit | [facility] | Irving Becerril, | Stroke of unknown | | 2016 | Visit | [facility] | DO [address] | etiology (HCC); | | | | CLINIC [address] | [address] [place], [place] | Cerebrovascular | | | | [place] | [address] | accident (CVA), | | | | [address] | | unspecified | | | | [...] involving | | | | | | jena coronary | | | | | | artery of jena | | | | | | heart without angina | | | | | | pectoris; 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 | | | | | | without complication | | | | | | ([facility]); Essential | | | | | | hypertension; | | | | | | Syncope and | | | | | | collapse; Cancer | | | | | | ([facility]); 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| | hyperlipidemia; ST | | | | | | elevation myocardial | | | | | | infarction (STEMI), | | | | | | unspecified artery | | | | | | ([facility]); | | | | | | Gastroesophageal [...] with | | | | | | gmdydrdohejkr-Z0-Y1 | | | | | | level [...] | | | | | ([facility]); DDD | | | | | | [...] | + +--------+ + + + | CULTURE, MRSA | Routin | 03/07/2016 | | Results for this | | | e | 3:20 PM | | procedure are in the | | | | PDT | | results section. | + +--------+ + + + | PTT | Routin | 03/07/2016 | Stroke of unknown | Results for this | | | e | 3:20 PM | etiology (HCC) | procedure are in the | | | | PDT | Cerebrovascular | results section. 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 | | | | | | heart without angina | | | | | | pectoris 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 | | | | | | without complication | | | | | | ([facility]) Essential | | | | | | hypertension | | | | | | Syncope and collapse | | | | | | Cancer ([facility]) | | | | | | Other hyperlipidemia | | | | | | ST elevation | | | | | | myocardial | | | | | | infarction (STEMI), | | | | | | unspecified artery | | | | | | (HCC) | | | | | | Gastroesophageal | | | | | | reflux disease, | | | | | | esophagitis presence | | | | | | not specified | | | | | | Uncomplicated | | | | | | asthma, unspecified | | | | | | asthma severity | | | | | | 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 DDD | | | | | | (degenerative disc | | | | | | disease), lumbar | | | | | | Spinal stenosis of | | | | | | lumbar region with | | | | | | tbrwewxeamskj-S3-C2 | | | | | | level moderately | | | | | | severe Facet | | | | | | arthritis of lumbar | | | | | | region-Most severe | | | | | | at L4-L5,L5-S1 | | | | | | Snoring Chronic | | | | | | narcotic use Neck | | | | | | pain on right side | | | | | | Facet arthritis of | | | | | | cervical region | | | | | | ([facility]) DDD | | | | | | (degenerative disc | | | | | | disease), cervical | | + +--------+ + + + | PROTIME INR | Routin | 03/07/2016 | Stroke of unknown | Results for this | | | e | 3:20 PM | etiology (HCC) | procedure are in the | | | | PDT | Cerebrovascular | results section. 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 | | | | | | heart without angina | | | | | | pectoris 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 | | | | | | without complication | | | | | | (HCC) Essential | | | | | | hypertension | | | | | | Syncope and collapse | | | | | | Cancer (HCC) | | | | | | Other hyperlipidemia | | | | | | ST elevation | | | | | | myocardial | | | | | | infarction (STEMI), | | | | | | unspecified artery | | | | | | (HCC) | | | | | | Gastroesophageal | | | | | | reflux disease, | | | | | | esophagitis presence | | | | | | not specified | | | | | | Uncomplicated | | | | | | asthma, unspecified | | | | | | asthma severity | | | | | | 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 DDD | | | | | | (degenerative disc | | | | | | disease), lumbar | | | | | | Spinal stenosis of | | | | | | lumbar region with | | | | | | gnfdhihtrnrfv-M9-Y7 | | | | | | level moderately | | | | | | severe Facet | | | | | | arthritis of lumbar | | | | | | region-Most severe | | | | | | at L4-L5,L5-S1 | | | | | | Snoring Chronic | | | | | | narcotic use Neck | | | | | | pain on right side | | | | | | Facet arthritis of | | | | | | cervical region | | | | | | (HCC) DDD | | | | | | (degenerative disc | | | | | | disease), cervical | | + +--------+ + + + | CBC WITH | Routin | 03/07/2016 | Stroke of unknown | Results for this | | DIFFERENTIAL | e | 3:20 PM | etiology (HCC) | procedure are in the | | | | PDT | Cerebrovascular | results section. 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 | | | | | | heart without angina | | | | | | pectoris 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 | | | | | | without complication | | | | | | (HCC) Essential | | | | | | hypertension | | | | | | Syncope and collapse | | | | | | Cancer (HCC) | | | | | | Other hyperlipidemia | | | | | | ST elevation | | | | | | myocardial | | | | | | infarction (STEMI), | | | | | | unspecified artery | | | | | | (HCC) | | | | | | Gastroesophageal | | | | | | reflux disease, | | | | | | esophagitis presence | | | | | | not specified | | | | | | Uncomplicated | | | | | | asthma, unspecified | | | | | | asthma severity | | | | | | 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 DDD | | | | | | (degenerative disc | | | | | | disease), lumbar | | | | | | Spinal stenosis of | | | | | | lumbar region with | | | | | | uctbuvxjejqyp-G5-D3 | | | | | | level moderately | | | | | | severe Facet | | | | | | arthritis of lumbar | | | | | | region-Most severe | | | | | | at L4-L5,L5-S1 | | | | | | Snoring Chronic | | | | | | narcotic use Neck | | | | | | pain on right side | | | | | | Facet arthritis of | | | | | | cervical region | | | | | | (HCC) DDD | | | | | | (degenerative disc | | | | | | disease), cervical | | + +--------+ + + + | BASIC METABOLIC | Routin | 03/07/2016 | Stroke of unknown | Results for this | | PANEL | e | 3:20 PM | etiology (HCC) | procedure are in the | | | | PDT | Cerebrovascular | results section. 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 | | | | | | heart without angina | | | | | | pectoris 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 | | | | | | without complication | | | | | | (HCC) Essential | | | | | | hypertension | | | | | | Syncope and collapse | | | | | | Cancer (HCC) | | | | | | Other hyperlipidemia | | | | | | ST elevation | | | | | | myocardial | | | | | | infarction (STEMI), | | | | | | unspecified artery | | | | | | (HCC) | | | | | | Gastroesophageal | | | | | | reflux disease, | | | | | | esophagitis presence | | | | | | not specified | | | | | | Uncomplicated | | | | | | asthma, unspecified | | | | | | asthma severity | | | | | | 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 DDD | | | | | | (degenerative disc | | | | | | disease), lumbar | | | | | | Spinal stenosis of | | | | | | lumbar region with | | | | | | gyhjhuwphtqqk-Q1-H2 | | | | | | level moderately | | | | | | severe Facet | | | | | | arthritis of lumbar | | | | | | region-Most severe | | | | | | at L4-L5,L5-S1 | | | | | | Snoring Chronic | | | | | | narcotic use Neck | | | | | | pain on right side | | | | | | Facet arthritis of | | | | | | cervical region | | | | | | (HCC) DDD | | | | | | (degenerative disc | | | | | | disease), cervical | | + +--------+ + + + | ECG 12 LEAD | Routin | 03/07/2016 | Stroke of unknown | Results for this | | | e | 3:14 PM | etiology (HCC) | procedure are in the | | | | PDT | Cerebrovascular | results section. 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 | | | | | | heart without angina | | | | | | pectoris 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 | | | | | | without complication | | | | | | (HCC) Essential | | | | | | hypertension | | | | | | Syncope and collapse | | | | | | Cancer (HCC) | | | | | | Other hyperlipidemia | | | | | | ST elevation | | | | | | myocardial | | | | | | infarction (STEMI), | | | | | | unspecified artery | | | | | | (HCC) | | | | | | Gastroesophageal | | | | | | reflux disease, | | | | | | esophagitis presence | | | | | | not specified | | | | | | Uncomplicated | | | | | | asthma, unspecified | | | | | | asthma severity | | | | | | 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 DDD | | | | | | (degenerative disc | | | | | | disease), lumbar | | | | | | Spinal stenosis of | | | | | | lumbar region with | | | | | | evkwlszcceuca-W8-J1 | | | | | | level moderately | | | | | | severe Facet | | | | | | arthritis of lumbar | | | | | | region-Most severe | | | | | | at L4-L5,L5-S1 | | | | | | Snoring Chronic | | | | | | narcotic use Neck | | | | | | pain on right side | | | | | | Facet arthritis of | | | | | | cervical region | | | | | | ([facility]) DDD | | | | | | (degenerative disc | | | | | | disease), cervical | | + +--------+ + + + documented in this encounter Results Basic Metabolic Panel (03/07/2016 3:20 PM PDT) [...] | | | | | mg/dL | [facility] | | | | | | MEDICAL | | | | | | CENTER - | | | | | | LABORATORY | | + + + + + + | eGFR if not | 57 (L)Comment: | >=60 | [facility] | | | | GLOMERULAR FILTRATION | mL/min/1.73m2 | [facility] | | | CHILEAN | RATE,ESTIMATED | | MEDICAL | | | | mL/min/1.83x2Hpwk than | | CENTER - | | [...] | | | | mg/dL | [facility] | | | | | | MEDICAL | | | | | | CENTER - | | | | | | LABORATORY | | + + + + + + | BUN/Creatin | 13.5 | | [facility] | | | ine Ratio | | | [facility] | | [...] + | [facility] | [address] | [place], [place] | [phone] | | [facility] | | [address] | | | - LABORATORY | | | | + + + + + PTT (03/07/2016 3:20 PM PDT) + +-------+ + + + | Component | Value | Ref Range | Performed | Pathologist | | | | | At | Signature | + +-------+ + + + | aPTT | 33 | 22 - 36 seconds | [facility] | | | | | | [facility] | | | | [...] + | [facility] | [address] | [place] | [phone] | | [facility] | | [address] | | | - LABORATORY | | [...] | Time | | seconds | [facility] | | | | | | MEDICAL | | | | | | CENTER - | | | | | | LABORATORY | | + + + + + + | INR | 1.00Comment: Usual Oral | 0.90 - 1.10 | [facility] | | | | Anticoagulation Range: | | [facility] | | | | 2.0 - 3.0High [...] | + + + + + | [facility] | [address] | [place] | [phone] | | [facility] | | [address] | | | - LABORATORY | | [...] | | | | | | [facility] | | | | | | MEDICAL | | | | | | CENTER - | | | | | | LABORATORY | | + +-------+ + + + | RBC | 3.88 | 3.70 - 5.20 | [facility] | | | | | M/uL | [facility] | | | | [...] | | Monocytes | | K/uL | [facility] | | | | | | MEDICAL | | | | | | CENTER - | | | | | | LABORATORY | | + +-------+ + + + | Absolute | 0.20 | 0.00 - 0.40 | [facility] | | | Eosinophils | | K/uL | [facility] | | | | | | MEDICAL | | | | | | CENTER - | | | | | | LABORATORY | | + +-------+ + + + | Absolute | 0.10 | 0.00 - 0.10 | [facility] | | | Basophils | | K/uL | [facility] | | | | [...] [address] | [place] | [phone] | | [facility] | | [address] | | | - LABORATORY | | | | + + + + + Culture, MRSA (03/07/2016 3:20 PM PDT) + + + + + + | Component | Value | Ref Range | Performed | Pathologist | | | | | At | Signature | + + + + + + | Culture | Negative for MRSA by | | [facility] | | | | chromogenic agar method | | [facility] | | | | | | MEDICAL | | | | | | CENTER - | | | | | | LABORATORY | | + + + + + + | Culture | 2+ Coagulase positive | | [facility] | | | | Staphylococcus | | [facility] | | | | | | MEDICAL | | | | | | CENTER - | | | | | | LABORATORY | | + + + + + + + + | Specimen | + + | Respiratory - Both | | anterior nares (body | | structure) | + + + + + + + | Performing | Address | City/State/Zipcode | Phone Number | | Organization | | | | + + + + + | [facility] | 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
--- OUTSIDE RECORDS SUMMARY | ~2019-10-27 | XMS | Encounter Summary ---
Demographics + + + | Address | [address] | | | [place] [address] | + + + | Home Phone [...] [place], | | | | | [place] [address] | | + + + + + | Kellen Briones | ECON | [place] | | | | | [address] | | + + + + + Care Team Providers + +------+ + | Care Cement Mason Name | Role | Phone | + +------+ + | Barb Marte | THANG | | + +------+ + Encounter Details +--------+ + + + + | Date | Type | Department | Care Team | Description | +--------+ + + + + | 11/05/ | Hospital | [facility] | Irving Becerril, | Status post cervical | | 2018 | Encounter | MED CTR XRAY [address] | DO [address] | spinal fusion | | | | [place] Phia | [address] | | | | | [place] [address] | [address] | | | | | [phone] | | | +--------+ + + + [...] + + | Performing | Address | City/State/[facility] | Phone Number | | Organization | | | | + +---------+ + + | [facility] | | | | + +---------+ + + documented in this encounter Visit Diagnoses + + | Diagnosis | + + | Status post cervical spinal fusion Arthrodesis status | + + documented in this encounter"
--- OUTSIDE RECORDS SUMMARY | ~2019-10-27 | XMS | Encounter Summary ---
Demographics + + + | Address | [address] | | | [place] [address] | + + + | Home Phone [...] [place], | | | | | [place] [address] | | + + + + + | Kellen Briones | ECON | [place], [place] | | | | | [address] | | + + + + + Care Team Providers + +------+ + | Care Signal Operator Name | Role | Phone | [...] | | | arthritis of | [address], | [place], [place] | | | | | cervical | [address] | [address] Phone: | | | | | region DDD | [place], [place] | [phone] | | | | | (degenerativ | [address] | Fax: | | | | | e disc | Phone: | [phone] | | | | | disease), | [phone] | | | | | | cervical | Fax: | | | | | | Cervical | [phone] | | | | | | stenosis [...] Neck pain | [place], | [address] | | | | | on right | [place], | [place], | | | | | side Facet | PA-C [address] | [place] | | | | | arthritis of | [address], | [address] | | | | | cervical | [address] | Phone: | | | | | region DDD | [place], [place] | [phone] | | | | | (degenerativ | [address] | Fax: | | | | | e disc | Phone: | [phone] | | | | | disease), | [phone] | | | | | | cervical | Fax: | | | | | | Cervical | [phone] | | | | | | stenosis [...] + + | 12/13/ | Telephone | [facility] | [place], | Referral | | 2015 | | PHYSIATRY [address] | [place]YAAN [address] | | | | | [address] | [address], [address] | | | | | [place], [place] | [place] [address] | | | | | [address] | [phone] | | | | | [phone] | | | +--------+ + + + [...] +--------+ + + | AMB REFERRAL TO [facility] | Outpatient | Routin | Neck pain [...] | Spinal stenosis of lumbar region with uxxtneleetqxs-L2-G1 level moderately severe | | Spinal stenosis, [...]
--- OUTSIDE RECORDS SUMMARY | ~2019-10-27 | XMS | Encounter Summary ---
Demographics + + + | Address | [address] | | | [place] [address] | + + + | Home Phone | | + + + | Preferred Language | Unknown | + + + | Marital Status | | + + + | Yarsani Affiliation | 1041 | + + + | Race | Unknown | + + + | Ethnic Group | Unknown | + + + Author + + + | Author | [facility] | | | and [place] | + + + | Organization | [facility] | | [...] [place], | | | | | [place] [address] | | + + + + + | Kellen Briones | ECON | [place], [place] | | | | | [address] | | + + + + + Care Team Providers + +------+ + | Care Tool Programmer Name | Role | Phone | + +------+ + | Anna De Guzman PA-C | PCP | | + +------+ + Encounter Details +--------+ + + + + | Date | Type | Department | Care Team | Description | +--------+ + + + + | 05/17/ | Hospital | [facility] | Irving Becerril, | Status post cervical | | 2016 | Encounter | MED CTR XRAY [address] | DO [address] | spinal fusion; | | | | [place] | [address] [place], [place] | Spondylolisthesis of | | | | [place] [address] | [phone] | cervical region | | | | [phone] | | | +--------+ + + + [...] mg by | | 0 | | 02/01/201 | | (VITAMIN C) 1000 MG | [...] Cervical fusion. COMPARISON: Multiple priors. FINDINGS: | [facility] | | Visualized skull base and [...] [address] 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
--- OUTSIDE RECORDS SUMMARY | ~2019-10-27 | XMS | Encounter Summary ---
Demographics + + + | Address | [address] | | | [place] [address] | + + + | Home Phone | | + + + | Preferred Language | Unknown | + + + | Marital Status | | + + + | Jain Affiliation | 1041 | + + + | Race | Unknown | + + + | Ethnic Group | Unknown | + + + Author + + + | Author | [facility] | | | and [place] | + + + | Organization | [facility] | | [...] [place], | | | | | [place] [address] | | + + + + + | Kellen Briones | ECON | [place], [place] | | | | | [address] | | + + + + + Care Team Providers + +------+ + | Care Day Treatment Clinician/Art Therapist Name | Role | Phone | + +------+ + | Anna De Guzman PA-C | PCP | | + +------+ + Reason for Visit + + + | Reason | Comments | + + + | Records Request | | + + + Encounter Details +--------+ + + + + | Date | Type | Department | Care Team | Description | +--------+ + + + + | 07/28/ | Telephone | [facility] | Patrick Gaffney MD [address] | Records Request | | 2012 | | NEUROLOGY [place] | [facility] | | | | | [address] [facility], | BR[address] J[address] | | | | | [place] [address] [place] [address] | [place] [address] | | | | | [place] [address] | [phone] | | | | | [phone] | | | +--------+ + + + [...]
--- OUTSIDE RECORDS SUMMARY | ~2019-10-27 | XMS | Encounter Summary ---
Demographics + + + | Address | [address] | | | [place] [address] | + + + | Home Phone [...] [place], | | | | | [place] [address] | | + + + + + | Kellen Briones | ECON | [place], [place] | | | | | [address] | | + + + + + Care Team Providers + +------+ + | Care Net Technical Architect Name | Role | Phone | + +------+ + | Anna De Guzman PA-C | PCP | | + +------+ + Encounter Details +--------+ + + + + | Date | Type | Department | Care Team | Description | +--------+ + + + + | 03/07/ | Hospital | [facility] | Irving Becerril, | | | 2016 | Encounter | MED CTR LABORATORY | DO [address] | | | | | [address] [facility] | [address] [place], [place] | | | | | [place], [place] | [address] | | | | | [address] | | | | | | [phone] | | | +--------+ + + + [...]
--- OUTSIDE RECORDS SUMMARY | ~2019-10-27 | XMS | Encounter Summary ---
Demographics + + + | Address | [address] | | | [place] [address] | + + + | Home Phone | | + + + | Preferred Language | Unknown | + + + | Marital Status | | + + + | Mosque Affiliation | 1041 | + + + | Race | Unknown | + + + | Ethnic Group | Unknown | + + + Author + + + | Author | [facility] | | | and [place] | + + + | Organization | [facility] | | | and [place] | + + + | Address | Unknown | + + + | Phone | Unavailable | + + + Support + + + + + | Name | Relationship | Address | Phone | + + + + + | Lucy Winchester | ECON | [place], | | | | | [place] [address] | | + + + + + | Kellen Briones | ECON | [place], [place] | | | | | [address] | | + + + + + Care Team Providers + +------+ + | Care Aboriginal Ceremonial Celebrant Name | Role | Phone | + [...] + + | 03/27/ | Telephone | [facility] | Monster White MD | Imaging | | 2019 | | [facility] | [address] | | | | | ORTHOPEDIC SPINE | [place], [place] | | | | | [address] | [address] | | | | | [place], [place] | | | | | | [address] | | | | | | [phone] | | | +--------+ + + + [...]
--- OUTSIDE RECORDS SUMMARY | ~2019-10-27 | XMS | Encounter Summary ---
Demographics + + + | Address | [address] | | | [place] [address] | + + + | Home Phone [...] [place], | | | | | [place] [address] | | + + + + + | Kellen Briones | ECON | [place], [place] | | | | | [address] | | + + + + + Care Team Providers + +------+ + | Care Editor Department Name | Role | Phone | + +------+ + | Anna De Guzman PA-C | PCP | | + +------+ + Encounter Details +--------+ + + + + | Date | Type | Department | Care Team | Description | +--------+ + + + + | 06/23/ | Hospital | [facility] | Donta Chris | | | 2012 - | Encounter | MED CTR XRAY [address] | MD [address] | | | | | [address] [place] | [facility] [address] | | | 06/25/ | | [place] [address] | [place] [address] | | | 2012 | | [phone] | [phone] | | | | | | | [...] Performed At | + + + | [facility] | [place] | | Department [address], [place] | [facility] | | [ rep ct street[address]] [ rep ct [facility] | | st zip] Signed | - IMAGING | | | | | Patient Name: CLEMENTINE WINCHESTER Physician: | | | CHAP.20 : 1940 Age: 72 Sex: F Unit #: [id number] | | | Exam Date: 06/23/12 Location: 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 COMPARISON: Brain | | | MRI from the same day. TECHNIQUE: Axial unenhanced 3D | | | uyax-vx-[id number] MRA images are performed through the [place] | | | and major [...] Transcribed | | | Date/Time: 06/24/2012 10:05 Plant Assigner: | | | <<Signature on File>> | | | Papito Garcia | | | MD [id number]/[id number] <Electronically signed by Papito Coffman MD> | | | Papito Coffman MD 06/24/12 0630 Plant Assigner: | | | [employer] [email or web address]/22/13 1005 Chris Longo MD | | | | | + + + + + + + + | Performing | Address | City/State/Zipcode | Phone Number | | Organization | | | | + + + + + | [facility] | [address] | [place], [place] | [phone] | | [facility] | | [address] | | | - IMAGING | | | | + + + + + MRI Brain w wo Contrast (06/24/2012 9:51 AM PST) + + | Specimen | + + | | + + + + + | Narrative | Performed At | + + + | [facility] | [place] | | Department [address] [place] | [facility] | | [ rep ct street1+[address]] [ rep ct city | [facility] | | st zip] Signed | - IMAGING | | | | | Patient Name: CLEMENTINE WINCHESTER Physician: | | | CHAP.20 : 1940 Age: 72 Sex: F Unit #: [id number] | | | Exam Date: 06/23/12 Location: [facility] | | | Report #: [id number] Page: | | | %(RAD)RES..mtdd.print.filter("pg") of %(RAD) | | | RES..mtdd.print.filter("tpg") | | | | | | Accession Number: [id number] | | | UNENHANCED AND ENHANCED BRAIN [...] Transcribed Date/Time: 06/24/2012 10:00 | | | Plant Assigner: <<Signature on File>> | | | Papito Avendaño | | Jose Coffman MD06/24/122052 <Electronically signed by Papito Coffman | | | > Papito Coffman MD 06/24/12 0951 Plant Assigner: | | | [employer] [email or web address]/22/13 1000 Chris Longo MD | | | | | + + + + + + + + | Performing | Address | City/State/Zipcode | Phone Number | | Organization | | | | + + + + + | [facility] | [address] | [place] | [phone] | | [facility] | | [address] | | | - IMAGING | | | | + + + + + documented in this encounter Visit Diagnoses Not on filedocumented in this encounter
--- OUTSIDE RECORDS SUMMARY | ~2019-10-27 | XMS | Encounter Summary ---
Demographics + + + | Address | [address] | | | [place] [address] | + + + | Home Phone | | + + + | Preferred Language | Unknown | + + + | Marital Status | | + + + | Nondenominational Affiliation | 1041 | + + + | Race | Unknown | + + + | Ethnic Group | Unknown | + + + Author + + + | Author | [facility] | | | and [place] | + + + | Organization | [facility] | | [...] [place], | | | | | [place] [address] | | + + + + + | Kellen Briones | ECON | [place], [place] | | | | | [address] | | + + + + + Care Team Providers + +------+ + | Care Lunch Truck Driver Name | Role | Phone | [...] | Lumbar | [place], | [address] | | | | | radiculopath | Tk Monreal MD | [place], | | | | | y | [address] | [place] | | | | | Procedures | [place] | [address] | | | | | IN INJECT | [place], [place] | Phone: | | | | | ANES/STEROID | [address] | [phone] | | | | | FORAMEN | Phone: | Fax: | | | | | LUMBAR/SACRA | [phone] | [phone] | | | | | L W IMG | Fax: | | | | | | GUIDE ,1 | [phone] | | | | | | LEVEL IN | | | | | | | [...] + + | 09/29/ | Hospital | [facility] | Mono Diaz, | Lumbar radiculopathy | | 2019 | Encounter | MED CTR XRAY [address] | PA-C [address] | | | | | [place] | [address] [place] | | | | | [place] [address] | [place] [address] | | | | | [phone] | [phone] | | | | | | | | | | | | Body CovererJordan | | | | | | [place] [...] | | | | | Other, ONCE, 4/29/19 at 1600, | | PM PDT | | | | | For 1 dose | | | | | | + +-------+ +-------+---+---+ +---+---+ | | | +---+---+ + +-------+ +-------+---+---+ | lidocaine (PF) 1% injection 2 | Given | 09/30/19 | 2 mLs | | | | mL 2 mL, Other, ONCE, Sat | | 3:55 | | | | | 09/29/18 [...] | | (Comment | | Intradermal, ONCE, Sat09/29/18 at | | PM PDT | | | ) | | 1600, For 1 dose | | | | | | + +-------+ +-------+---+ + +---+---+ | | | +---+---+ documented in this encounter"
--- OUTSIDE RECORDS SUMMARY | ~2019-10-27 | XMS | Encounter Summary ---
Demographics + + + | Address | [address] | | | [place] [address] | + + + | Home Phone | | + + + | Preferred Language | Unknown | + + + | Marital Status | | + + + | Tenriism Affiliation | 1041 | + + + | Race | Unknown | + + + | Ethnic Group | Unknown | + + + Author + + + | Author | [facility] | | | and [place] | + + + | Organization | [facility] | | | and [place] | + + + | Address | Unknown | + + + | Phone | Unavailable | + + + Support + + + + + | Name | Relationship | Address | Phone | + + + + + | Lucy Winchester | ECON | [place], | | | | | [place] [address] | | + + + + + | Kellen Briones | ECON | [place], [place] | | | | | [address] | | + + + + + Care Team Providers + +------+ + | Care Wind Energy Engineer Name | Role | Phone | [...] + + | 08/27/ | Telephone | [facility] | Tk Ann | Other | | 2012 | | PHYSIATRY [address] | TMD [address] | | | | | [address] [facility] [address] | [place], [place] | | | | | [place], [place] | [address] | | | | | [address] | | | | | | [phone] | | | +--------+ + + + [...]
--- OUTSIDE RECORDS SUMMARY | ~2019-10-27 | XMS | Encounter Summary ---
Demographics + + + | Address | [address] | | | [place] [address] | + + + | Home Phone [...] [place], | | | | | [place] [address] | | + + + + + | Kellen Briones | ECON | [place], [place] | | | | | [address] | | + + + + + Care Team Providers + +------+ + | Care Overnight Houseperson Name | Role | Phone | + +------+ + | Anna De Guzman PA-C | PCP | | + +------+ + Reason for Visit + + + | Reason | Comments | + + + | New Patient | neck and back pain | + + + Evaluate & Treat (Routine) +--------+--------+ + + + + | Status | Reason | Specialty | Diagnoses / | Referred By | Referred To | | | | | Procedures | Contact | Contact | +--------+--------+ + + + + | Closed | | Neurosurgery | Diagnoses | | Gonzalo Mathew | | | | | Neck pain | Jarocho De Guzman MD [address] | | | | | Lumbar pain | [place], | [address] | | | | | Spinal | PA-C [address] | [place], [place] | | | | | stenosis, | [address] | [address] | | | | | other region | Ave | Phone: | | | | | Procedures | [place], | [phone] | | | | | [place] OFFICE | [place] | Fax: | | | | | CONSULTATION | [address] | [phone] | | | | | NEW/ESTAB | Phone: | | | | | | PATIENT 60 | [phone] | | | | | | MIN | Fax: | | | | | | | [phone] | | +--------+--------+ + + + + Encounter Details +--------+---------+ + + + | Date | Type | Department | Care Team | Description | +--------+---------+ + + + | 11/13/ | Office | [facility] | Gonzalo Mathew MD | Cervical spondylosis | | 2013 | Visit | NEUROSURGERY [address] | [address] | with myelopathy | | | | [address] | [place] [address] | (Primary Dx); | | | | [place] | [phone] | Cervical | | | | [address] | | radiculopathy; | | | | [phone] | | Cervical | | | | | | subluxation, initial | | | | | | encounter; | | | | | | Degenerative disc | | | | | | disease, cervical; | | | | | | Cervical spinal | | | | | | stenosis; | | | | | | 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; | | | | | | Lumbar radiculopathy | +--------+---------+ + + + Social [...] + + + | Blood Pressure | 127/56 | 11/13/2013 10:55 AM | | | | | PDT | | + + + + + | Pulse | 81 | 11/13/2013 10:55 AM | | | | | PDT | | + + + + + | Temperature | - | - | | + + + + + | Respiratory Rate | 18 | 11/13/2013 10:55 AM | | | | | PDT | | + + + + + | Oxygen Saturation | - | - | | + + + + + | Inhaled Oxygen | - | - | | | Concentration | | | | + + + + + | Weight | 70.8 kg (156 lb) | 11/13/2013 10:55 AM | | | | | PDT | | + + + + + | Height | 160 cm (5' 3") | 11/13/2013 10:55 AM | | | | | PDT | | + + + + + | Body Mass Index | 27.63 | 11/13/2013 10:55 AM | | | | | PDT | | + + + + + documented in this encounter Patient Instructions Patient Instructions Gonzalo Mathew MD - 11/13/2013 11:46 AM PDTWe discussed the option for an Anterior Cervical Discectomy and Fusion (ACDF). You can research this procedure more by going to: [email or web address] Click the Treatment Options link on the left column. Then, look for Anterior Cervical Discectomy and Fusion (ACDF). documented in this encounter Progress Notes Gonzalo Mathew MD - 11/13/2013 11:00 AM PDTFormatting of this note might be different from t he original. Gonzalo Mathew MD [address] [place] [address], [address] [place] [address] FAX: NEUROSURGERY HISTORY AND PHYSICAL EXAMINATION CHIEF COMPLAINT: Chief Complaint Patient presents with New Patient neck and back pain HISTORY OF PRESENT ILLNESS: The patient is a 73 y.o. female with the complaint of neck tom n and arm pain for 3 years. She has worsened over the last year. She has severe daily neck pain made worse by left head turning and neck motions. She has pain the radiates from her neck in the her right shoulder. She has constant numbness of the right hand and arm althoug h it is not severe. She has lost coordination with her hands. She describes the pain as sh jethro, stabbing, and aching. She also has chronic low back and right hip pain. These symptoms are not as severe. Her symptoms improve with rest and pain medication. Her symptoms worsen with activities. She has tried PT, chiropractic, narcotics, injections, muscle relaxers. PAST MEDICAL HISTORY: Past Medical History Diagnosis Date Coronary artery disease Diabetes mellitus (HCC) Hypertension Stroke (HCC) Syncope and collapse Cancer (HCC) Breast Hyperlipidemia [place] (myocardial infarction) (HCC) GERD (gastroesophageal reflux disease) Asthma Arthritis Lumbar radiculopathy 07/23/2012 DDD (degenerative disc disease), lumbar 07/23/2012 Spinal stenosis of lumbar region with xydxgziaoeque-K1-H6 level moderately severe 2012 Facet arthritis of lumbar region-Most severe at L4-L5,L5-S1 07/23/2012 Snoring Chronic narcotic use Neck pain on right side 05/13/2013 Facet arthritis of cervical region 05/13/2013 DDD (degenerative disc disease), cervical 05/13/2013 PAST SURGICAL HISTORY: Past Surgical History Procedure Date Coronary artery bypass graft 2009 Hysterectomy, total abdominal 1969 Tonsillectomy and adenoidectomy 1947 Mouth surgery 1957 She is edentulous Carpal tunnel release Bilateral Reconstruction of left thumb 1989' Mastectomy, radical 1987 Right Breast reconstruction 2630-2099 ABout 10 surgeries Bone spur left foot Belpharoptosis repair 2009 bilateral CURRENT MEDICATIONS: Current Outpatient [...] a fog. Tape (Adhesive & Tape) Rash SOCIAL HISTORY: The patient reports that she has never smoked. She has never used smokeless tobacco. She r eports that she drinks alcohol. She reports that she does not use illicit drugs. FAMILY HISTORY: Family History Problem Relation Age of Onset Alcohol abuse Father Heart disease Father Migraines Daughter Other (See Comment) Daughter Depression Migraines Son Other (See Comment) Son Seizure disorder, snores Cancer Mother Heart disease Mother Hypertension Mother Arthritis Mother Hypertension Daughter COPD Daughter Arthritis Daughter High blood pressure Daughter Other (See Comment) Daughter snores REVIEW OF SYSTEMS: GENERALLY: No fever, no night sweats, no anemia, + fatigue, + recent profound weight martinez ges. EYES: No eye problems, + use of corrective lenses, no eye injury, no double vision, no bli ndness. EARS, NOSE, AND THROAT: + changes in taste or smell, no hearing difficulty, + ringing in t he ears, no ear drainage, no dizziness, + voice changes, no difficulty swallowing, + signifi cant snoring, no sleep apnea, + sinus problems, + major dental work. NEUROLOGICALLY: Please see the review of systems discussed above in the history of present illness. In addition, the patient has muscle aching, pain in neck, pain in back, memory lo ss. PSYCHIATRIC: + depression, no sleep disorders, no anxiety, no bipolar disorder, no psychot ic episodes. CARDIOVASCULAR: + heart attacks, no heart murmur, no heart fluttering, + chest pain, + ank le swelling. LUNG DISEASE: + shortness of breath, + cough, no tuberculosis, no bloody cough, + asthma, + emphysema/COPD. GASTROINTESTINAL: No bowel disease, + nausea or vomiting, no rectal bleeding, + hemorrhoid s, no constipation, no stool incontinence, no liver disease, no gallbladder disease, no abdo horacio pain, no ulcers. KIDNEY DISEASE: No urinary [...] no rheumatoid arthritis. PHYSICAL EXAMINATION: Blood pressure 127/56, pulse 81, resp. rate 18, height 1.6 m (5' 3"), weight 70.761 kg (156 lb). Body mass index is 27.64 kg/(m^2). GENERAL: Clementine Winchester is in no acute distress with unlabored respirations. The patient does not appear uncomfortable throughout the exam today. HEENT: HEAD/FACE: EYES: EARS: NASOPHARNYX: OROPHARNYX: Normocephalic and atraumatic. There are no areas of recent trauma. Normal sclerae without icterus. No drainage or tenderness. Clear without drainage. Clear without erythema. NECK (ANTERIOR): Supple and without palpable masses. CHEST: Clear to ausculation without crackles or wheeze. HEART: Regular rate and rhythm. ABDOMEN: Soft, non-tender, non-distended, and without palpable masses. The patient is not obese. SPINE: The cervical spine exam shows there is no tenderness over the C-4, C-5, C-6 and C-7 region. Range of motion is limited. EXTREMITIES: No cyanosis, clubbing, or edema. Distal pulses are palpable. NEUROLOGICAL EXAM: MENTAL STATUS: The patient is awake, alert, and oriented. She follows simple and complex commands. She speech is fluent, she comprehends speech well, and she repeats well. She has no apparent deficits with short or chcf memory. CRANIAL NERVES: II: Acuity is intact. Pepper are full to confrontation. III, IV, : The pupils are reactive. Extraocular movements are intact. No ptosis is note d. V: Facial sensation is intact and symmetric. VII: Facial movements are symmetric. VIII: Hearing is diminished bilaterally. IX, X: The uvula and palate move appropriately. XI: Shrug is equal bilaterally. XII: Tongue protrusion is midline. MOTOR EXAM: (5 IS NORMAL) * Indicates pain limited MUSCLE/ MOVEMENT: RIGHT LEFT Deltoids 5 5 Biceps 5 5 Triceps 5 5 Wrist Flexion 5 5 Wrist Extension 5 5 Median Intrinsics 5 5 Ulnar Intrinsics 5 5 Insurance Analyst Strength 5 5 Hip Flexion 5 5 Hip Extension 5 5 Knee Flexion 5 5 Knee Extension 5 5 Dorsiflexion 5 5 Extensor Hallicus Longus 5 5 Plantarflexion 5 5 SENSORY EXAM: Sensory exam shows diminished sensation over the right 1-3 digits. REFLEXES: (2 OR 2+ IS NORMAL) REFLEX: RIGHT LEFT BICEPS 2+ 2+ BRACHIORADIALIS 2+ 2+ TRICEPS 2+ 2+ PATELLAR 3+ 3+ ACHILLES 1 2 RICE'S ABSENT ABSENT GAIT: Gait is steady. RADIOGRAPHIC REVIEW: The patient's images were reviewed in detail today explaining the findings in full. The chinmay guerrier's neck MRI shows cervical spondloysis and stenosis from C4-T1. She has a subluxation at C4-5 and C7-T1. Her foramina are narrowed diffusely. ASSESSMENT: NEUROSURGICAL DIAGNOSES: Encounter Diagnoses Name Primary? Cervical spondylosis with myelopathy Yes Cervical radiculopathy Cervical subluxation, initial encounter Degenerative disc disease, cervical Cervical spinal stenosis Spondylolisthesis of lumbar region Lumbar radiculopathy GENERAL DIAGNOSES: Past Medical History Diagnosis Date Coronary artery disease Diabetes mellitus (HCC) Hypertension Stroke (HCC) Syncope and collapse Cancer (HCC) Breast Hyperlipidemia [place] (myocardial infarction) (HCC) GERD (gastroesophageal reflux disease) Asthma Arthritis Lumbar radiculopathy 07/23/2012 DDD (degenerative disc disease), lumbar 07/23/2012 Spinal stenosis of lumbar region with bdmjhvhvcfdln-V3-I1 level moderately severe 2012 Facet arthritis of lumbar region-Most severe at L4-L5,L5-S1 07/23/2012 Snoring Chronic narcotic use Neck pain on right side 05/13/2013 Facet arthritis of cervical region 05/13/2013 DDD (degenerative disc disease), cervical 05/13/2013 PLAN: Clementine Winchester presented today, and it was a pleasure seeing this patient and assessing h er problems. The patient and I discussed the natural history, non-operative, and operative options for her disease. After a full discussion, the patient decided to she would like barbra reyes. I discussed a C4-T1 ACDF and the full details regarding the technique and recovery. We discussed the risks, alternatives, and benefits [...] provide her with the best possible outcome. For multiple (more than 1 level fusions), I recommend the use of a bone growth stimulator p ostoperatively. This is to improve the probability and rate of fusion. She will need cardiac clearance and then return to discuss surgery again and make a decisio n based on her risk. I spent 45 minutes in visit with Clementine Winchester today with the majority of time spent cou nselling the patient on her diagnosis, discussing options for her care, and coordinating her care. ELECTRONICALLY SIGNED BY: Gonzalo Mathew MD, 11/13/2013 11:57 documented in this enc nter Plan of Treatment Not on filedocumented as of this encounter Visit Diagnoses + + | Diagnosis | + + | Cervical spondylosis with myelopathy - Primary | + + | Cervical radiculopathy Brachial neuritis or radiculitis nos | + + | Cervical subluxation, initial encounter | + + | Degenerative disc disease, cervical Degeneration of cervical intervertebral disc | + + | Cervical spinal stenosis Spinal stenosis in cervical region | + + | Spondylolisthesis of lumbar region Acquired spondylolisthesis | + + | Lumbar radiculopathy Thoracic or lumbosacral neuritis or radiculitis, unspecified | + + documented in this encounter
--- OUTSIDE RECORDS SUMMARY | ~2019-10-27 | XMS | Encounter Summary ---
Demographics + + + | Address | [address] | | | [place] [address] | + + + | Home Phone [...] [place], | | | | | [place] [address] | | + + + + + | Kellen Briones | ECON | [place], [place] | | | | | [address] | | + + + + + Care Team Providers + +------+ + | Care Program Management Analyst Name | Role | Phone | [...] NEUROSURGERY [address] | F, [address] | Dx) | | | | [address] | [place] | | | | | [place], [place] | [address] | | | | | [address] | [phone] | | | | | [phone] | | | +--------+ + + + [...]
--- OUTSIDE RECORDS SUMMARY | ~2019-10-27 | XMS | Encounter Summary ---
Demographics + + + | Address | [address] | | | [place] [address] | + + + | Home Phone [...] [place], | | | | | [place] [address] | | + + + + + | Kellen Briones | ECON | [place] | | | | | [address] | | + + + + + Care Team Providers + +------+ + | Care Cupola Worker Name | Role | Phone | + +------+ + | Barb Marte | PCP | | + +------+ + Encounter Details +--------+ + + + + | Date | Type | Department | Care Team | Description | +--------+ + + + + | 01/31/ | Hospital | [facility] | Conversion | Diagnosis unknown | | 2018 | Encounter | CONVERSION DEP [address] | Transaction, | | | | | [place] | Provider Unknown | | | | | [place] | [phone] | | | | | [address] | | | | | | [phone] | | | +--------+ + + + [...] XR CHEST 1 VIEW | Routin | 01/26/2018 | | Results for this | | | e | 5:32 PM | | procedure are in the | | | | PDT | | results section. | + +--------+ + + + documented in this encounter Results XR Chest 1 Vw (01/26/2018 5:32 PM PDT) + + | Specimen | + + | | + + + + + | Narrative | Performed At | + + + | This is a non-reportable procedure without a radiologist report and | | | is used for image storage only | | + + + + + | Procedure Note | + + | Nilya Lawrence Conversion - 01/14/2019 11:42 AM PDT [...]
--- OUTSIDE RECORDS SUMMARY | ~2019-10-27 | XMS | Encounter Summary ---
Demographics + + + | Address | [address] | | | [place] [address] | + + + | Home Phone [...] [place], | | | | | [place] [address] | | + + + + + | Kellen Briones | ECON | [place], [place] | | | | | [address] | | + + + + + Care Team Providers + +------+ + | Care Isotope Technician Name | Role | Phone | [...] | | | | | | | [place] | | | | | | | [...] + + | 03/30/ | Surgery | [facility] | Irving Becerril, | C3-4, C4-5, C5-6, | | 2016 | | MED CTR OR INTRA OP | DO [address] | C6-7 Anterior | | | | [address] | [address] [place], [place] | Cervical Discectomy | | | | [place], [place] | [address] | w/ Fusion and | | | | [address] | | Plating | | | | [phone] | | | +--------+---------+ + + + [...] Hypertension Stroke Syncope and collapse Cancer Hyperlipidemia [place] (myocardial infarction) GERD (gastroesophageal reflux disease) Asthma Spondylolisthesis of lumbar region Lumbar radiculopathy DDD (degenerative disc disease), lumbar Spinal stenosis of lumbar region with obbrybcsradwp-P7-O2 level moderately severe Facet arthritis of lumbar region-Most severe at L4-L5,L5-S1 Snoring Chronic narcotic use Neck pain on right side Facet arthritis of cervical region DDD (degenerative disc disease), cervical H/O Syncope & collape H/O CVA/stroke H/O [place] (myocardial infarction) H/O Breast cancer - Right [...] of admission the patient was admitted to [facility] and underwent a C3-C7 fusion. Patient [...] by: Chavo Jacob, 03/31/2016 7:[address] [facility] documented in this encounter Discharge Instructions Instructions Merle Ricci, DIRECTOR LOSS PREVENTION - 03/31/2016Discharge Instructions for Cervical Fusion You [...] t raise your hands over your head mdt4zwpb(s)after your surgery. Don t drive until your [...] this your 1 month post op appointment. 2798-2941 [employer]. [address] [place] [address]. All righ ts reserved. This information is not intended as a substitute for professional medical care. Always follow your healthcare professional's instructions. If you would like Home Health: Call [facility] at [phone] documented in this encounter Medications at Time [...] might be different f rom the original. [facility] PROGRESS NOTE Pt. Name/Age/: Clementine Winchester 75 [...] by: Chavo Jacob, 03/31/2016 7:[address] [facility] documented in this encounter Plan [...] [place] | | | | | | [place] | | | - | | | [...] + + | Performing | Address | City/State[facility] | Phone Number | | [...] [address] | [place] | [phone] | | [facility] | | [address] | | | - LABORATORY | | [...] + | [address] | [address] | [place] | [phone] | | [facility] | | [address] | | | - LABORATORY | | [...] ST. | [address] | [place] | | | [facility] | | [address] | | | - BLOOD BANK | [...]
--- OUTSIDE RECORDS SUMMARY | ~2019-10-27 | XMS | Encounter Summary ---
Demographics + + + | Address | [address] | | | [place] [address] | + + + | Home Phone [...] [place], | | | | | [place] [address] | | + + + + + | Kellen Briones | ECON | [place], [place] | | | | | [address] | | + + + + + Care Team Providers + +------+ + | Care Bi Application Developer Name | Role | Phone | [...] + + | 01/23/ | Telephone | [facility] | Mono Diaz, | Medication Question | | 2017 | | PHYSIATRY [address] | PA-C [address] | | | | | [address] | [address] [facility] | | | | | [place], [place] | [place] [address] | | | | | [address] | [phone] | | | | | [phone] | | | +--------+ + + + [...]
--- OUTSIDE RECORDS SUMMARY | ~2019-10-27 | XMS | Encounter Summary ---
Demographics + + + | Address | [address] | | | [place] [address] | + + + | Home Phone | | + + + | Preferred Language | Unknown | + + + | Marital Status | | + + + | Catholic Affiliation | 1041 | + + + | Race | Unknown | + + + | Ethnic Group | Unknown | + + + Author + + + | Author | [facility] | | | and [place] | + + + | Organization | [facility] | | | and [place] | + + + | Address | Unknown | + + + | Phone | Unavailable | + + + Support + + + + + | Name | Relationship | Address | Phone | + + + + + | Lucy Winchester | ECON | [place], | | | | | [place] [address] | | + + + + + | Kellen Briones | ECON | [place], [place] | | | | | [address] | | + + + + + Care Team Providers + +------+ + | Care Fitness Worker Name | Role | Phone | [...] | | | | | | | [place] | | | | | | | [...] + + | 03/30/ | Hospital | [facility] | Irving Becerril, | | | 2016 - | Encounter | MED CTR SURGICAL | DO [address] | | | | | [address] [place] | [address] | | | 03/31/ | | [place] [address] | [id number] | | | 2015 | | [phone] | | | +--------+ + + + [...] Admitting Physician: Irving Becerril DO [facility] Discharging Physician: NARESH Valverde Primary Discharge Dx: <principal problem not specified> Secondary Discharge Dx: Patient Active Problem List Diagnosis Cervical stenosis of spinal canal Spondylolisthesis of cervical region Arthritis Leg pain, bilateral Lumbago Trochanteric bursitis of right hip Right hip pain Stroke of unknown etiology Coronary artery disease Diabetes mellitus - ORAL Control Hypertension Stroke Syncope and collapse Cancer Hyperlipidemia [place] (myocardial infarction) GERD (gastroesophageal reflux disease) Asthma Spondylolisthesis of lumbar region Lumbar radiculopathy DDD (degenerative disc disease), lumbar Spinal stenosis of lumbar region with fhamhxrirbhbv-R2-D1 level moderately severe Facet arthritis of lumbar region-Most severe at L4-L5,L5-S1 Snoring Chronic narcotic use Neck pain on right side Facet arthritis of cervical region DDD (degenerative disc disease), cervical H/O Syncope & collape H/O CVA/stroke H/O [place] (myocardial infarction) H/O Breast cancer - Right [...] of admission the patient was admitted to [facility] and underwent a C3-C7 fusion. Patient was [...] Electronically signed by: Chavo Jacob, 03/31/2016 7:59 [facility] documented in this encounter Discharge Instructions Instructions RicciMerle hawk Janet, METHODS ANALYST - 03/31/2016Discharge Instructions for Cervical Fusion You [...] t raise your hands over your head [id number](s)after your surgery. Don t drive until your [...] this your 1 month post op appointment. [phone] [employer]. [address] [place] [address]. All righ ts reserved. This information is not intended as a substitute for professional medical care. Always follow your healthcare professional's instructions. If you would like Home Health: Call [facility] at [phone] documented in this encounter Medications at Time [...] might be different f rom the original. [facility] NEUROSURGERY PROGRESS NOTE Pt. Name/Age/: Clementine Phoenix Kurtkj 75 y.o. 1940 Post operative day 1 [...] signed by: Chavo Jacob, 03/31/2016 7:48 [facility] documented in this encounter Plan [...] 111 | 70 - 150 mg/dL | [facility] [address] | [place] | [phone] | | [facility] | | [address] | | | - LABORATORY | | [...] | | POC | | | [facility] | | [...] + | [facility] | [address] | [place] | [phone] | | [facility] | | [address] | | | - LABORATORY | | [...] [address] | [place] | | | [facility] | | [address] | | | - BLOOD BANK | [...] | | TIMES DAILY, First dose on Fri | | AM PDT | | | [...] 8:29 | | | | | on 03/30/16 [...] | | | | PRN, Pain, Starting Sat03/30/16 | | PM PDT | | [...] PM PDT | | | | | Sat03/30/16 at 1215, Pre-op | | | | [...]
--- OUTSIDE RECORDS SUMMARY | ~2019-10-27 | XMS | Clinical Summary ---
Demographics + + + | Address | [address] | | | [place] [address] | + + + | Home Phone | | + + + | Preferred Language | Unknown | + + + | Marital Status | Unknown | + + + | Orthodox Affiliation | Unknown | + + + [...] Team Providers + +------+ + | Care Neuropsychology Director Name | Role | Phone | + +------+ + PCP | Unavailable | + +------+ + Source Comments HOLLY is fully live on both [facility] Ambulatory and [facility] InPatient.[facility] Allergies Not on File Medications Not on [...]
--- OUTSIDE RECORDS SUMMARY | ~2019-10-27 | XMS | Encounter Summary ---
Demographics + + + | Address | [address] | | | [place] [address] | + + + | Home Phone [...] + + | Author | [facility] | | | and [place] | + + + | Organization | [facility] | | | and [place] | + + + | Address | Unknown | + + + | Phone | Unavailable | + + + Support + + + + + | Name | Relationship | Address | Phone | + + + + + | Lucy Winchester | ECON | [place], | | | | | [place] [address] | | + + + + + | Kellen Briones | ECON | [place] | | | | | [address] | | + + + + + Care Team Providers + +------+ + | Care Featheredge Machine Operator Name | Role | Phone | + +------+ + | Barb Marte | PCP | | + +------+ + Encounter Details +--------+ + + + + | Date | Type | Department | Care Team | Description | +--------+ + + + + | 01/31/ | Hospital | [facility] | Conversion | Pain | | 2018 | Encounter | CONVERSION [address] | Transaction, | | | | | [address] | Provider Unknown | | | | | [place], [place] | [phone] | | | | | [address] | | | | | | [phone] | | | +--------+ + + + [...]
--- OUTSIDE RECORDS SUMMARY | ~2019-10-27 | XMS | Encounter Summary ---
Demographics + + + | Address | [address] | | | [place] [address] | + + + | Home Phone [...] [place], | | | | | [place] [address] | | + + + + + | Kellen Briones | ECON | [place], [place] | | | | | [address] | | + + + + + Care Team Providers + +------+ + | Care Neurosurgery Physician Name | Role | Phone | + [...] + + | 03/30/ | Hospital | [facility] | Irving Becerril, | | | 2016 | Encounter | MED CTR XRAY [address] | DO [address] | | | | | [place] | [address] [place], [place] | | | | | [place] [address] | [phone] | | | | | [phone] | | | +--------+ + + + [...] | + +--------+ + + + | [facility] CAPONE STATS NO | Routin | 03/30/2016 | | Results for this | | CHARGE | e | 4:25 PM | | procedure are in the | | | | PDT | | results section. | + +--------+ + + + documented in this encounter Results [facility] C-Arm Stats No Charge (03/30/2016 4:25 PM PDT) + [...]
--- OUTSIDE RECORDS SUMMARY | ~2019-10-27 | XMS | Encounter Summary ---
Demographics + + + | Address | [address] | | | [place] [address] | + + + | Home Phone [...] Author | [facility] | | | and [place] | + + + | Organization | [facility] | | | and [place] | + + + | Address | Unknown | + + + | Phone | Unavailable | + + + Support + + + + + | Name | Relationship | Address | Phone | + + + + + | Lucy Winchester | ECON | [place], | | | | | [place] [address] | | + + + + + | Kellen Briones | ECON | [place], [place] | | | | | [address] | | + + + + + Care Team Providers + +------+ + | Care Doctor Osteopathic Name | Role | Phone | + [...] Thoracic or | [place], | [address] | | | | | lumbosacral | Tk Monreal MD | [place], | | | | | neuritis or | [address] | [place] | | | | | | ST [place] | [address] | | | | | radiculitis, | [place], [place] | Phone: | | | | | unspecified | [address] | [phone] | | | | | Procedures | Phone: | Fax: | | | | | AL INJECT | [phone] | [phone] | | | | | ANES/STEROID | Fax: | | | | | | FORAMEN | [phone] | | | | | | LUMBAR/SACRA | | | | | | | L W IMG | | | | | | | GUIDE ,1 | | | | | | | LEVEL AL | | | | | | | [...] + + | 02/22/ | Hospital | 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 | | | | [...] radiculopathy ICD-9 Code 724.4 Clementine Phoenix | [facility] | | Annabella presents to the fluoroscopy suite for fluoroscopically-guided | [facility] | | bilateral L5-S1 transforaminal [...] ST. | [address] | [place] | [phone] | | [facility] | | [address] | | | - IMAGING | | | | + + + + + documented in this encounter Visit Diagnoses + + | Diagnosis | + + | Spinal stenosis of lumbar region with gycvziqairmee-S9-Q5 level moderately severe | | Spinal stenosis, [...]
--- OUTSIDE RECORDS SUMMARY | ~2019-10-27 | XMS | Encounter Summary ---
Demographics + + + | Address | [address] | | | [place] [address] | + + + | Home Phone | | + + + | Preferred Language | Unknown | + + + | Marital Status | | + + + | Evangelical Affiliation | 1041 | + + + | Race | Unknown | + + + | Ethnic Group | Unknown | + + + Author + + + | Author | [facility] | | | and [place] | + + + | Organization | [facility] | | | and [place] | + + + | Address | Unknown | + + + | Phone | Unavailable | + + + Support + + + + + | Name | Relationship | Address | Phone | + + + + + | Lucy Winchester | ECON | [place], | | | | | [place] [address] | | + + + + + | Kellen Briones | ECON | [place] | | | | | [address] | | + + + + + Care Team Providers + +------+ + | Care Security Services Specialist Name | Role | Phone | [...] | | | | Diagnoses | | Nini, | | | | | | | Leonard Sevilla MD | | | | | 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 | | [address] [place] | | | | | region | | [place], [place] | | | | | Lumbar | | [address] Phone: | | | | | degenerative | | [phone] | | | | | disc | | Fax: | | | | | disease | | [phone] | | | | | Procedures | | | | | | | LAMINEC/FACE | | | | | | | TECT/FORAMIN | | | | | | | ,LUMBAR 1 | | | | | | | SEG [place] | | | | | | | LAMINEC/FACE | | | | | | | TECT/FORAMIN | | | | | | | ,EACH ADDNL | | | | | | | FUSION | | | | | | | LUMBAR W/ | | | | | | | LATERAL | | | | | | | APPROACH | | | | | | | (XLIF) L4/5 | | | | | | | LAMINECTOMY | | | | | | | POSTERIOR | | | | | | | LUMBAR | | | | | | | SPINAL | | | | | | | FUSION L4/5 | | | +--------+--------+ + + + + Encounter Details +--------+ + + + + | Date | Type | Department | Care Team | Description | +--------+ + + + + | 07/22/ | Anesthesia | [facility] | Kaiser Rayo, | | | 2019 | [facility] | [address] | | | | | OPER[address] | [place] [address] | | | | | [address] | Gita Etienne MD | | | | | [place], [place] | [address] | | | | | [address] | [place] [address] | | | | | [phone] | [phone] | | | | | | | | +--------+ + + + + Anesthesia Record + + + + + | Procedure Name | Responsible | Anesthesia Start | Anesthesia Stop Time | | | Anesthesiologist | Time | | + + + + + | FUSION LUMBAR W/ | Kaiser Rayo MD | 07/22/19 0700 | 07/22/19 0951 | | LATERAL APPROACH | | | | | (XLIF) L4/5 (N/A | | | | | Spine Lumbar) | | | | + + + + + +----+---+ + + | Da | T | Event | Comment | | te | i | | | | | m | | | | | e | | | +----+---+ + + | 02 | 0 | An Start | Reassessment prior to anesthesia induction/procedure. | | /1 | 7 | | | | 9/ | 0 | | | | 20 | 0 | | | | 20 | | | | +----+---+ + + | | 0 | Antibiotic | | | | 7 | Given | | | | 0 | | | | | 6 | | | +----+---+ + + | | 0 | An | | | | 7 | Induction | | | | 0 | | | | | 7 | | | +----+---+ + + | | 0 | An | | | | 7 | Intubation | | | | 1 | | | | | 1 | | | +----+---+ + + | | 0 | Anesthesia | | | | 7 | Ready | | | | 1 | | | | | 6 | | | +----+---+ + + | | 0 | First | | | | 7 | Inc/Proc St | | | | 4 | | | | | 2 | | | +----+---+ + + | | 0 | [place] | | | | 7 | 43-degrees | | | | 4 | | | | | 7 | | | +----+---+ + + | | 0 | Quick Note | Pt turned prone onto Duran frame with left chest padded to | | | 8 | | equalize chest (pt has large unilateral rt breast implant). Head | | | 2 | | neutral in soft purple and white foam cushion with cutout for | | | 6 | | eyes/nose/oet and all free of pressure. BUE padded in purple foam | | | | | cradles in semi-divers position and < 90 degrees. | +----+---+ + + | | 0 | Extubation/ | | | | 9 | Airway LDA | | | | 4 | Removal | | | | 4 | | | +----+---+ + + | | 0 | an stop | | | | 9 | data | | | | 4 | | | | | 7 | | | +----+---+ + + | | 0 | An Stop | Patient handed off to recovery nurse. | | | 5 | | | | | 1 | | | +----+---+ + + +------+ | Meds | +------+ + + + | Name | Total | + + + | fentaNYL | 200 mcg | + + + | lidocaine 2% | 40 mg | + + + | propofol | 50 mg | + + + | rocuronium | 50 mg | + + + | dexamethasone | 8 mg | + + + | phenylephrine | 200 mcg | + + + | neostigmine | 4 mg | + + + | glycopyrrolate | 0.6 mg | + + + | ceFAZolin in dextrose (ANCEF) | 2 g | | IVPB 2 g | | + + + | etomidate | 14 mg | + + + | phenylephrine | 3,740 mcg | + + + | ketamine | 50 mg | + + + | ketamine 2 mg/mL in sodium | 15.95 mg | | chloride 0.9% 250 mL infusion | | + + + | sugammadex | 100 mg | + + + | metoprolol | 2 mg | + + + | balanced electrolytes in water | 700 mL | | (PLASMALYTE-148/NORMOSOL-R) | | | infusion | | + + + + + | Name | + + | N2O Flow Rate (L/Min) | + + | O2 Flow Rate (L/Min) | + + | Insp O2 | + + | Exp N2O | + + | Exp SEV | + + | Air Flow Rate (L/Min) | + + + + | No blood administrations on file. | + + +--------+ + + + | Type | Details | Placement | Removal | +--------+ + + + | Wound | 07/22/19; 805; Incision; Left; | 07/22/19805 by | | | | flank | Velia Guzman | | | | | GRAYSON Srivastava | | +--------+ + + + | Wound | 07/22/19; 09; Incision; back | 07/22/19 0901 by | | | | | Velia Guzman | | | | | GRAYSON Srivastava | | +--------+ + + + | Drain/ | 07/22/19; #1; lower; thoracic | 07/22/19 0000 by | 07/24/19 1212 by | | Device | spine; (Hemovac); tip not | Velia Guzman | Sadie Thomas RN | | Site | intact, LIP notified; 07/24/19; | GRAYSON Srivastava | | | | 1212 | | | +--------+ + + + | Periph | 07/22/19; 0640; Right; | 07/22/19 0640 by | 07/28/19 1401 by | | eral | Antecubital; [id number] | Linda Basilio, | Maria Del Carmen Bains, | | IV | catheter system; 20 gauge; | GRAYSON | GRAYSON | | | Hematology, Chemistry; short term | | | | | use; 07/28/19; 1401 | | | +--------+ + + + | Airway | Placement Date: 07/22/19; | 07/22/19710 by | 07/22/19 0946 by | | | Placement Time: 710 (created via | Gita Etienne MD | Gita Etienne MD | | | procedure documentation); Mask | | | | | Ventilation: EZ w/OA; Airway | | | | | Grade: 1; Successful Technique: | | | | | Mac; Laryngoscope Blade Size: 3; | | | | | Attempts: 1; Airway Type: | | | | | endotracheal; Size: 7; Airway | | | | | Tube Secured At: 20; Trauma: | | | | | none; Other Equipment: stylette; | | | | | Placement Check: exhaled CO2 | | | | | detection device, bilateral chest | | | | | rise, breath sounds equal | | | | | bilaterally; Removal Date: | | | | | 07/22/19; Removal Time: 945 | | | +--------+ + + + | Periph | 07/22/19; 07 (created via | 07/22/19 07 by | 07/24/19 102 by | | eral | procedure documentation); Right; | Gita Etienne MD | Sadie Thomas RN | | IV | Hand; 20 gauge; 07/24/19; 1025 | | | +--------+ + + + | Urethr | 07/22/19; 716; indicated due to | 07/22/19716 by | 07/23/19621 by | | al | specific surgical procedure; | Velia Guzman | Nicole Villegas RN | | Cathet | indwelling double lumen catheter; | GRAYSON Srivastava | | | er | latex; 16 10; drainage bag to | | | | | dependent drainage; 07/23/19; | | | | | 621 | | | +--------+ + + + documented in this encounter Social History + +-------+ +--------+------+ | Tobacco [...] | + +--------+ + + + | ANE AIRWAY NOTE | Routin | 07/22/2019 | | Results for this | | | e | 7:52 AM | | procedure are in the | | | | PST | | results section. | + +--------+ + + + | ANE PERIPHERAL IV | Routin | 07/22/2019 | | Results for this | | LINE NOTE | e | 7:51 AM | | procedure are in the | | | | PST | | results section. | + +--------+ + + + documented in this encounter Results Airway (07/22/2019 7:52 AM PST) + + + | Narrative | Performed At | + + + | Gita Etienne MD 07/22/2019 7:52 AM Anesthesia Airway | | | Placement 07/22/2019 7:11 AM Preprocedure check: patient | | | identified, suction, airway equipment checked, patient reassessment | | | prior to induction, airway assessed and oxygen Rapid Sequence | | | Induction: no Mask ventilation: easy with oral airway Successful | | | technique: Mac Laryngoscope blade size: 3 Airway grade: 1 (Full | | | view of glottis) Other equipment: stylette Attempts: 1 Airway type: | | | endotracheal Size: 7 Cuffed: cuffed Route, reference point: right | | | side of mouth Tube depth: 20 cm Tube secured with: adhesive tape | | | Trauma: none Tube placement verification: bilateral chest rise, equal | | | bilateral breath sounds and carbon dioxide detection Performing | | | provider: Gita Etienne MD Authorizing provider: Gita Etienne MD | | | Please see intraoperative grid for any additional | | | medication documentation. | | + + + PIV (07/22/2019 7:51 AM PST) + + + | Narrative | Performed At | + + + | Gita Etienne MD 07/22/2019 7:52 AM Intravenous Line | | | Placement 07/22/2019 7:16 AM Indication: routine Preparation: | | | alcohol patient was: under GA Side: right Vein location: hand | | | Size: 20 g Localization technique: landmark Securement: transparent | | | dressing and tape Placed by: Gita Etienne MD Authorizing | | | provider: Gita Etienne MD Please see intraoperative grid for | | | any additional medication documentation. | | + + + documented in this encounter Visit Diagnoses Not on filedocumented in this encounter Administered Medications + +--------+ +------+------+------+ | Medication Order | MAR | Action | Dose | Rate | Site | | | Action | Date | | | | + +--------+ +------+------+------+ | ceFAZolin in dextrose (ANCEF) | Given | 07/22/19 | 2 g | | | | IVPB 2 g 2 g, Intravenous, | | 20 7:06 | | | | | Administer over 30 Minutes, Prior | | AM PST | | | | | to Incision, Starting Wed | | | | | | | 07/22/19 at 0630, For 1 dose, Keep | | | | | | | in refrigerator., Pre-op, | | | | | | | Indications: Surgical Prophylaxis | | | | | | + +--------+ +------+------+------+ +---+---+ | | | +---+---+ + +-------+ +------+---+---+ | dexamethasone (DECADRON) 4 | Given | 07/22/19 | 8 mg | | | | mg/mL injection Intravenous, | | 20 7:08 | | | | | PRN, Starting Sat07/22/19 at | | AM PST | | | | | 0708, Anesthesia Intra-op | | | | | | + +-------+ +------+---+---+ +---+---+ | | | +---+---+ + +-------+ +-------+---+---+ | etomidate (AMIDATE) injection | Given | 07/22/19 | 14 mg | | | | Intravenous, PRN, Starting Wed | | 20 7:07 | | | | | 07/22/19 at 0707, Anesthesia | | AM PST | | | | | Intra-op | | | | | | + +-------+ +-------+---+---+ +---+---+ | | | +---+---+ + +-------+ +--------+---+---+ | fentaNYL (PF) injection | Given | 07/22/19 | 50 mcg | | | | Intravenous, PRN, Starting Wed | | 20 9:55 | | | | | 07/22/19 at 0706, Anesthesia | | AM PST | | | | | Intra-op | | | | | | + +-------+ +--------+---+---+ +-------+ +--------+---+---+ | Given | 07/22/19 | 50 mcg | | | | | 20 9:24 | | | | | | AM PST | | | | +-------+ +--------+---+---+ | Given | 07/22/19 | 50 mcg | | | | | 20 7:44 | | | | | | AM PST | | | | +-------+ +--------+---+---+ +---+---+ | | | +---+---+ + +-------+ +--------+---+---+ | glycopyrrolate (FLOWER) | Given | 07/22/19 | 0.6 mg | | | | injection Intravenous, PRN, | | 20 9:22 | | | | | Starting 07/22/19 at 0922, | | AM PST | | | | | Anesthesia Intra-op | | | | | | + +-------+ +--------+---+---+ +---+---+ | | | +---+---+ + +-------+ +-------+---+---+ | ketamine 100 mg/mL injection | Given | 07/22/19 | 50 mg | | | | Intravenous, PRN, Starting Wed | | 20 7:07 | | | | | 07/22/19 at 0707, Anesthesia | | AM PST | | | | | Intra-op | | | | | | + +-------+ +-------+---+---+ +---+---+ | | | +---+---+ + +---------+ +-------+-------+---+ | ketamine 2 mg/mL in sodium | New Bag | 07/22/19 | 8.7 | 4.4 | | | chloride 0.9% 250 mL infusion | | 20 7:07 | mg/hr | mL/hr | | | Intravenous, CONTINUOUS PRN, | | AM PST | | | | | Starting 07/22/19 at 0707, | | | | | | | Anesthesia Intra-op | | | | | | + +---------+ +-------+-------+---+ +---+---+ | | | +---+---+ + +-------+ +-------+---+---+ | lidocaine (PF) 2% injection | Given | 07/22/19 | 40 mg | | | | Intravenous, PRN, Starting Wed | | 20 7:07 | | | | | 07/22/19 at 0707, Anesthesia | | AM PST | | | | | Intra-op | | | | | | + +-------+ +-------+---+---+ +---+---+ | | | +---+---+ + +-------+ +------+---+---+ | metoprolol tartrate (LOPRESSOR) | Given | 07/22/19 | 2 mg | | | | injection Intravenous, PRN, | | 20 9:46 | | | | | Starting Sat07/22/19 at 0946, | | AM PST | | | | | Anesthesia Intra-op | | | | | | + +-------+ +------+---+---+ +---+---+ | | | +---+---+ + +-------+ +------+---+---+ | neostigmine (BLOXIVERZ) 1 mg/mL | Given | 07/22/19 | 4 mg | | | | injection Intravenous, PRN, | | 20 9:22 | | | | | Starting Sat07/22/19 at 0922, | | AM PST | | | | | Anesthesia Intra-op | | | | | | + +-------+ +------+---+---+ +---+---+ | | | +---+---+ + +-------+ +--------+---+---+ | phenylephrine (OLAF-SYNEPHRINE, | Given | 07/22/19 | 75 mcg | | | | VAZCULEP) 10 mg per mL injection | | 20 9:09 | | | | | Intravenous, PRN, Starting Wed | | AM PST | | | | | 07/22/19 at 0708, Anesthesia | | | | | | | Intra-op | | | | | | + +-------+ +--------+---+---+ +-------+ +--------+---+---+ | Given | 07/22/19 | 75 mcg | | | | | 20 8:11 | | | | | | AM PST | | | | +-------+ +--------+---+---+ | Given | 07/22/19 | 50 mcg | | | | | 20 7:08 | | | | | | AM PST | | | | +-------+ +--------+---+---+ +---+---+ | | | +---+---+ + + + +---------+-------+---+ | phenylephrine (OLAF-SYNEPHRINE, | Rate/Dos | 07/22/19 | 15 | 0.1 | | | VAZCULEP) 10 mg/mL injection | e Change | 20 9:25 | mcg/min | mL/hr | | | Intravenous, CONTINUOUS PRN, | | AM PST | | | | | Starting 07/22/19 at 0707, | | | | | | | Anesthesia Intra-op | | | | | | + + + +---------+-------+---+ + + +---------+-------+---+ | Rate/Dose Change | 07/22/19 | 25 | 0.2 | | | | 20 9:19 | mcg/min | mL/hr | | | | AM PST | | | | + + +---------+-------+---+ | Rate/Dose Change | 07/22/19 | 30 | 0.2 | | | | 20 9:11 | mcg/min | mL/hr | | | | AM PST | | | | + + +---------+-------+---+ +---+---+ | | | +---+---+ + +-------+ +-------+---+---+ | propofol (DIPRIVAN) injection | Given | 07/22/19 | 20 mg | | | | Intravenous, PRN, Starting Wed | | 20 7:08 | | | | | 07/22/19 at 0707, Anesthesia | | AM PST | | | | | Intra-op | | | | | | + +-------+ +-------+---+---+ +-------+ +-------+---+---+ | Given | 07/22/19 | 30 mg | | | | | 20 7:07 | | | | | | AM PST | | | | +-------+ +-------+---+---+ +---+---+ | | | +---+---+ + +-------+ +-------+---+---+ | rocuronium (ZEMURON) injection | Given | 07/22/19 | 10 mg | | | | Intravenous, PRN, Starting Wed | | 20 8:41 | | | | | 07/22/19 at 07, Anesthesia | | AM PST | | | | | Intra-op | | | | | | + +-------+ +-------+---+---+ +-------+ +-------+---+---+ | Given | 07/22/19 | 10 mg | | | | | 20 8:10 | | | | | | AM PST | | | | +-------+ +-------+---+---+ | Given | 07/22/19 | 30 mg | | | | | 20 7:07 | | | | | | AM PST | | | | +-------+ +-------+---+---+ +---+---+ | | | +---+---+ + +-------+ +--------+---+---+ | sugammadex (BRIDION) injection | Given | 07/22/19 | 100 mg | | | | Intravenous, PRN, Starting Wed | | 20 9:32 | | | | | 07/22/19 at 0932, Anesthesia | | AM PST | | | | | Intra-op | | | | | | + +-------+ +--------+---+---+ +---+---+ | | | +---+---+ documented in this encounter"
--- OUTSIDE RECORDS SUMMARY | ~2019-10-27 | XMS | Encounter Summary ---
Demographics + + + | Address | [address] | | | [place] [address] | + + + | Home Phone [...] [place], | | | | | [place] [address] | | + + + + + | Kellen Briones | ECON | [place] | | | | | [address] | | + + + + + Care Team Providers + +------+ + | Care Volunteer Coordinator Name | Role | Phone | + +------+ + | Barb Marte | PCP | | + +------+ + Reason for Visit + + + | Reason | Comments | + + + | Surgery Appointment | schedule surgery | + + + Encounter Details +--------+ + + + + | Date | Type | Department | Care Team | Description | +--------+ + + + + | 06/15/ | Telephone | [facility] | Monster White MD | Surgery Appointment | | 2020 | | [facility] | [address] | (schedule surgery) | | | | ORTHOPEDIC SPINE | [place], [place] | | | | | [address] | [address] | | | | | [place] | | | | | | [address] | | | | | | [phone] | | | +--------+ + + + [...]
--- OUTSIDE RECORDS SUMMARY | ~2019-10-27 | XMS | Encounter Summary ---
Demographics + + + | Address | [address] | | | [place] [address] | + + + | Home Phone | | + + + | Preferred Language | Unknown | + + + | Marital Status | | + + + | Temple Affiliation | 1041 | + + + [...] [place], | | | | | [place] [address] | | + + + + + | Kellen Briones | ECON | [place] | | | | | [address] | | + + + + + Care Team Providers + +------+ + | Care Assistant Chief Train Dispatcher Name | Role | Phone | + +------+ + | Barb Marte | THANG | | + +------+ + Encounter Details +--------+ + + + + | Date | Type | Department | Care Team | Description | +--------+ + + + + | 11/05/ | Hospital | [facility] | Irving Becerril, | Status post cervical | | 2018 | Encounter | MED CTR XRAY [address] | DO [address] | spinal fusion | | | | [place] | [address] | | | | | [place] [address] | [address] | | | | | [phone] | | | +--------+ + + + [...] + + | Performing | Address | City[facility] | Phone Number | | Organization | | | | + +---------+ + + | [facility] | | | | + +---------+ + + documented in this encounter Visit Diagnoses + + | Diagnosis | + + | Status post cervical spinal fusion Arthrodesis status | + + documented in this encounter"
--- OUTSIDE RECORDS SUMMARY | ~2019-10-27 | XMS | Encounter Summary ---
Demographics + + + | Address | [address] | | | [place] [address] | + + + | Home Phone [...] [place], | | | | | [place] [address] | | + + + + + | Kellen Briones | ECON | [place], [place] | | | | | [address] | | + + + + + Care Team Providers + +------+ + | Care Drawing Tender Name | Role | Phone | [...] + + | 10/18/ | Office | [facility] | [place], | Cervical stenosis of | | 2016 | Visit | PHYSIATRY [address] | [address] | spinal canal | | | | [address] | [address] | (Primary Dx); | | | | [place] | [place] [address] | Spondylolisthesis of | | | | [address] | [phone] | cervical region; | | | | [phone] | | 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 For [...] and narcotic medications use; she currently uses [place], Flexeril and ga bapentin. Patient's medications, allergies, [...] has no apparent deficits with short or nursing home memory. She has appropriate fund of knowledge Cranial nerves 2-12 appear grossly intact. Sensory exam does not show diminished sensation to light touch in the lower extremities. REFLEX: RIGHT LEFT BICEPS 2+ 2+ BRACHIORADIALIS 2+ 2+ TRICEPS 2+ 2+ PATELLAR 2+ 2+ ACHILLES 1+ 1+ IRCE'S Negative Negative PLANTAR Downgoing Downgoing MUSCULOSKELETAL There [...] 5. Spinal stenosis of lumbar region with oiqlzpzpebqln-H9-J1 level moderately severe 6. Facet arthritis of [...] in t his encounter Plan of Treatment Not on filedocumented as of this encounter Results FL Facet Injection Cervical (11/30/2015 2:19 PM PDT) + + | Specimen | + + | | + + + + + | Narrative | Performed At | + + + | 11/30/2015 Cervical Facet Steroid Injections Diagnosis: | [facility] | | Cervical Facet Arthritis ICD-10 Code M43.12 Clementine Winchester | [facility] | | presents to the fluoroscopy suite for fluoroscopically-guided | [facility] | | bilateral right C3, [...] + | Performing | Address | City/State/[facility] | Phone Number | | Organization | | | | + + + + + | [facility] | [address] | [place] | [phone] | | [facility] | | [address] | | | - IMAGING | | | | + + + + + FL BAUTISTA Lumbar Transforaminal (11/16/2015 2:29 PM PDT) + + | Specimen | + + | | + + + + + | Narrative | Performed At | + + + | 11/16/2015 Bilateral Transforaminal Epidural Steroid Injections | [facility] | | Diagnosis: Lumbar radiculopathy ICD-10 Code M54.16 [place] | [facility] | | Lizett Winchester presents to the fluoroscopy suite for [facility] | | fluoroscopically-guided bilateral L5-S1 [...] + | Performing | Address | City/State/[facility] | Phone Number | | Organization | | | | + + + + + | [facility] | [address] | [place] | [phone] | | [facility] | | [address] | | | - IMAGING | | [...] | Spinal stenosis of lumbar region with qavpglaktdnzc-M7-B6 level moderately severe | | Spinal stenosis, [...]
--- OUTSIDE RECORDS SUMMARY | ~2019-10-27 | XMS | Encounter Summary ---
Demographics + + + | Address | [address] | | | [place] [address] | + + + | Home Phone | | + + + | Preferred Language | Unknown | + + + | Marital Status | | + + + | Advent Affiliation | 1041 | + + + | Race | Unknown | + + + | Ethnic Group | Unknown | + + + Author + + + | Author | [facility] | | | and [place] | + + + | Organization | [facility] | | | and [place] | + + + | Address | Unknown | + + + | Phone | Unavailable | + + + Support + + + + + | Name | Relationship | Address | Phone | + + + + + | Lucycat Carmichaeljenakj | ECON | [place], | | | | | [place] [address] | | + + + + + | Kellen Briones | ECON | [place], [place] | | | | | [address] | | + + + + + Care Team Providers + +------+ + | Care Manager Activities Name | Role | Phone | + [...] [address] | | | | | [place], [place] | [place] [address] | | | | | [address] | [phone] | | | | | [phone] | | | +--------+ + + + [...] Performed At | + + + | Located Within [facility] | | | [facility] [address] | | | , | | | [id number]/RADIOLOGY Patient Name: CLEMENTINE WINCHESTER Date of : | | | 1940 Medical Record: [id number] Account: [id number] // | | | Exam Date/Time: 07/06/2009 [...] 09:44 P | | | P P [facility]/[id number]/ | | | cc: MD MARCIA WHITE MD SARAVANA | | | MD LUZ ELENA | | + + + + + | Procedure Note | + + | Nilay Lawrence - 01/25/2019 5:24 PM PDT | | Located Within [facility] | | [facility] [address] | | , | | | | [id number]/RADIOLOGY | | | | Patient Name: CLEMENTINE WINCHESTER | | Date of : 1940 | | Medical Record: [id number] | | Account: [id number] | | // | | | | [...] | P | | P | | [facility]/[id number]/ | | cc: YANNICK MCKINNEY MD | | MARCIA MOTLEY MD | | KERA LAGUNA MD | + + documented in this encounter Visit Diagnoses + + | Diagnosis | + + | Chest pain, unspecified | + + documented in this encounter"
--- OUTSIDE RECORDS SUMMARY | ~2019-10-27 | XMS | Encounter Summary ---
Demographics + + + | Address | [address] | | | [place] [address] | + + + | Home Phone [...] [place], | | | | | [place] [address] | | + + + + + | Kellen Briones | ECON | [place], [place] | | | | | [address] | | + + + + + Care Team Providers + +------+ + | Care Industrial Roof Plumber Name | Role | Phone | + [...] + + | 08/14/ | Telephone | [facility] | Patrick Gaffney MD [address] | Other | | 2012 | | NEUROLOGY [place] | [facility] | | | | | [address] [facility], | [address] [place], | | | | | [address] [facility] | [place] [address] | | | | | [place] [address] | [phone] | | | | | [phone] | | | +--------+ + + + [...]
--- OUTSIDE RECORDS SUMMARY | ~2019-10-27 | XMS | Encounter Summary ---
Demographics + + + | Address | [address] | | | [place] [address] | + + + | Home Phone [...] [place], | | | | | [place] [address] | | + + + + + | Kellen Briones | ECON | [place], [place] | | | | | [address] | | + + + + + Care Team Providers + +------+ + | Care Supervisor Blast Furnace Name | Role | Phone | + [...] | | | | | | [place] | | | | | | | [...] + + | 03/30/ | Hospital | [facility] | Irving Becerril, | | | 2016 | Encounter | [facility] [address] | DO [address] | | | | | [place] | [address] [place], [place] | | | | | [place] [address] | [phone] | | | | | [phone] | | | +--------+ + + + [...]
--- OUTSIDE RECORDS SUMMARY | ~2019-10-27 | XMS | Encounter Summary ---
Demographics + + + | Address | [address] | | | [place] [address] | + + + | Home Phone [...] [place], | | | | | [place] [address] | | + + + + + | Kellen Briones | ECON | [place], [place] | | | | | [address] | | + + + + + Care Team Providers + +------+ + | Care Trials Manager Name | Role | Phone | [...] | Lumbar | Marissa, | [address] | | | | | radiculopath | Tk Monreal MD | [place], | | | | | y | [address] | [place] | | | | | Procedures | [place] | [address] | | | | | [place] INJECT | [facility], [place] | Phone: | | | | | ANES/STEROID | [address] | [phone] | | | | | FORAMEN | Phone: | Fax: | | | | | LUMBAR/SACRA | [phone] | [phone] | | | | | L W IMG | Fax: | | | | | | GUIDE ,1 | [phone] | | | | | | LEVEL CA | | | | | | [...] + + | 11/15/ | Hospital | [facility] | [place], | Spondylolisthesis of | | 2015 | Encounter | MED CTR XRAY [address] | AYAAN Taylor [address] | lumbar region; | | | | [address] [place] | [facility] [address] | Lumbar | | | | [place] [address] | [place] [address] | radiculopathy; | | | | [phone] | [phone] | Spinal stenosis of | | | | | | lumbar region with | | | | | [facility] | [id number] | | | | | [place] | level moderately | | | | [...] with | | | | | | [id number] | | | | | | level [...] Lumbar radiculopathy ICD-10 Code M54.16 Clementine | [facility] | | Lizett Winchester presents to the fluoroscopy suite for [facility] | | fluoroscopically-guided bilateral L5-S1 transforaminal [...] [address] | [place] | [phone] | | [facility] | | [address] | | | - IMAGING | | | | + + + + + documented in this encounter Visit Diagnoses + + | Diagnosis | + + | Spondylolisthesis of lumbar region Acquired spondylolisthesis | + + | Lumbar radiculopathy Thoracic or lumbosacral neuritis or radiculitis, unspecified | + + | Spinal stenosis of lumbar region with [id number] level moderately severe | | Spinal stenosis, [...] (PF) 1% injection 2 | Given | 20 | 2 mLs | | | | mL 2 mL, Other, ONCE, Wed | | 16 2:45 | | | | | 11/16/15 at 1445, For 1 dose | | PM PDT | | | | + +-------+ +-------+---+---+ +---+---+ | | | +---+---+ + +-------+ +--------+---+---+ | lidocaine buffered 1% injection | Given | 11/15/20 | 10 mLs | | | | 10 mL 10 mL, Other, ONCE, Wed | | 16 2:30 | | | | | 16 at 1445, For 1 dose | | PM PDT | | | | + +-------+ +--------+---+---+ +---+---+ | | | +---+---+ documented in this encounter"
--- OUTSIDE RECORDS SUMMARY | ~2019-10-27 | XMS | Encounter Summary ---
Demographics + + + | Address | [address] | | | [place] [address] | + + + | Home Phone | | + + + | Preferred Language | Unknown | + + + | Marital Status | | + + + | Zoroastrian Affiliation | 1041 | + + + | Race | Unknown | + + + | Ethnic Group | Unknown | + + + Author + + + | Author | [facility] | | | and [place] | + + + | Organization | [facility] | | [...] [place], | | | | | [place] [address] | | + + + + + | Kellen Briones | ECON | [place] | | | | | [address] | | + + + + + Care Team Providers + +------+ + | Care Project Management Engineer Name | Role | Phone | + +------+ + | Barb Marte | PCP | | + +------+ + Reason for Visit + + + | Reason | Comments | + + + | Appointment | Reschedule | + + + | Medication Question | | + + + Encounter Details +--------+ + + + + | Date | Type | Department | Care Team | Description | +--------+ + + + + | 09/15/ | Telephone | [facility] | [facility] | Appointment | | 2019 | | [facility] | [facility] [address] | (Reschedule); | | | | ORTHOPEDIC SPINE | [facility] [address] | Medication Question | | | | [address] | [place] [address] | | | | | [place], [place] | [phone] | | | | | [address] | | | | | | [phone] | | | +--------+ + + + [...] + + documented as of this encounter Functional Status + + + + | Functional Status | Response | Date of Assessment | + + + + | Are you deaf or do you have serious | No | 07/25/2019 | | difficulty hearing? | | | + + + + | Are you blind or do you have serious | No | 07/25/2019 | | difficulty seeing, even when wearing | | | | glasses? | | | + + + + | Do you have serious difficulty walking or | Yes | 07/25/2019 | | climbing stairs? (5 years old or older) | | | + + + + | Do you have difficulty dressing or bathing? | No | 07/25/2019 | | (5 years old or older) | | | + + + + | Because of a physical, mental, or emotional | Yes | 07/25/2019 | | condition, do you have difficulty doing | | | | errands alone such as visiting a doctor's | | | | office or shopping? [15 years old or | | | | older)] | | | + + + + + + + + | Cognitive Status | Response | Date of Assessment | + + + + | Because of a physical, mental, or emotional | No | 07/25/2019 | | condition, do you have serious difficulty | | | | concentrating, remembering, or making | | | | decisions? (5 years old or older) | | | + + + + documented as of this encounter Plan of Treatment Not on filedocumented as of this encounter Visit Diagnoses + + | Diagnosis | + + | Spondylolisthesis of lumbar region Acquired spondylolisthesis | + + | S/P lumbar spinal fusion Arthrodesis status | + + documented in this encounter"
--- OUTSIDE RECORDS SUMMARY | ~2019-10-27 | XMS | Encounter Summary ---
Demographics + + + | Address | [address] | | | [place] [address] | + + + | Home Phone | | + + + | Preferred Language | Unknown | + + + | Marital Status | | + + + | Gnosticism Affiliation | 1041 | + + + [...] [place], | | | | | [place] [address] | | + + + + + | Kellen Briones | ECON | [place], [place] | | | | | [address] | | + + + + + Care Team Providers + +------+ + | Care Soft Drink Powder Mixer Name | Role | Phone | + [...] Closed | | Radiology | Diagnoses | Real, | [facility] | | | | | Lumbago | Ramon F, | Imaging [address] | | | | | Leg pain, | MD [address] | | | | | bilateral | [address] | [address] [place] | | | | | Procedures | [place], | [place], [place] | | | | | MRI Lumbar | [place] [address] | [address] | | | | | Spine wo | Phone: | Phone: | | | | | Contrast | [phone] | [phone] | | | | | | [phone] Fax: | Fax: | | | | | | | [phone] | | | | | | [phone] | | +--------+--------+ + + + + Consultation (Urgent) +--------+ + + + + + | Status | Reason | Specialty | Diagnoses / | Referred By | Referred To | | | | | Procedures | Contact | Contact | +--------+ + + + + + | Closed | Specialty | Neurology | Diagnoses | Farhan, | [place], | | | Services | | Stroke of | Ramon Steinberg, | Chris Waldron, | | | Required | | unknown | MD [address] | MD [address] | | | | | etiology | [address] | [address] | | | | | ([facility]) | [place], | [address] | | | | | | [place] [address] | [place] | | | | | | Phone: | [phone] Phone: | | | | | | [phone] | [phone] | | | | | | [phone] Fax: | Fax: | | | | | | | [phone] | | | | | | [phone] | | +--------+ + + + + + Evaluate & Treat (Routine) +--------+ + + + + + | Status | Reason | Specialty | Diagnoses / | Referred By | Referred To | | | | | Procedures | Contact | Contact | +--------+ + + + + + | Closed | Specialty | Physical | Diagnoses | Real, | Marissa, | | | Services | Medicine and | Cervical | Ramon F, | Tk Monreal MD | | | Required | Rehabilitatio | stenosis of | MD [address] | [address] | | | | n | spinal canal | [address] | [address] [place] | | | | | | [place], | [place], [place] | | | | | Spondylolist | [place] [address] | [address] Phone: | | | | | hesis of | Phone: | [phone] | | | | | cervical | [phone] | Fax: | | | | | region | [phone] Fax: | [phone] | | | | | Right hip | | | | | | | pain | [phone] | | | | | | Trochanteric | | | | | | | bursitis of | | | | | | | right hip | | | | | | | Lumbago Leg | | | | | | | pain, | | | | | | | bilateral | | | | | | | Arthritis | | | +--------+ + + + + + Reason for Visit + + + | Reason | Comments | + + + | Back Pain | right leg pain | + + + | Hip Pain | | + + + Encounter Details +--------+---------+ + + + | Date | Type | Department | Care Team | Description | +--------+---------+ + + + | 06/04/ | Office | [facility] | Ramon Real | Cervical stenosis of | | 2012 | Visit | NEUROSURGERY [address] | MD Idris [address] | spinal canal | | | | [address] | St [place], [place] | (Primary Dx); | | | | [place], [place] | [address] | Spondylolisthesis of | | | | [address] | [phone] | cervical region; | | | | [phone] | | Right hip pain; | | | | | | Trochanteric | | | | | | bursitis of right | | | | | | hip; Lumbago; Leg | | | | | | pain, bilateral; | | | | | | Arthritis; Stroke of | | | | | | unknown etiology | | | | | | (HCC); | | | | | | Spondylolisthesis [...] + + + | Blood Pressure | 117/53 | 06/04/2012 2:39 PM | | | | | PST | | + + + + + | Pulse | 84 | 06/04/2012 2:39 PM | | | | | PST | | + + + + + | Temperature | - | - | | + + + + + | Respiratory Rate | 20 | 06/04/2012 2:39 PM | | | | | PST | | + + + + + | Oxygen Saturation | - | - | | + + + + + | Inhaled Oxygen | - | - | | | Concentration | | | | + + + + + | Weight | 70.5 kg (155 lb 6.4 | 06/04/2012 2:39 PM | | | | oz) | PST | | + + + + + | Height | 160 cm (5' 2.99") | 06/04/2012 2:39 PM | | | | | PST | | + + + + + | Body Mass Index | 27.53 | 06/04/2012 2:39 PM | | | | | PST | | + + + + + documented in this encounter Patient Instructions Patient Instructions Ramon Real MD - 06/04/2012 3:46 PM PSTWe will notify you priscilla alicea we obtain the studies from [facility] documented in this encounter Progress Notes Ramon Real MD - 06/04/2012 3:46 PM PSTFormatting of this note might be differen t from the original. Ramon Real MD [address] [facility], [address] [place], [place] [address] FAX: NEUROSURGERY HISTORY AND PHYSICAL EXAMINATION CHIEF COMPLAINT: Chief Complaint Patient presents with Back Pain right leg pain Hip Pain HISTORY OF PRESENT ILLNESS:I had the great pleasure of seeing in my clinic Ms. Clementine underwood. Ms. Winchester is a very pleasant 72 y.o. female with the complaint of symptoms that began about 2 years ago. She describes her symptoms as pain in the neck, pain in the mid back, an d pain in the low back. This is also associated with pain which radiates down her right hip and leg. She also describes an intermittent left anterior thigh burning and tingling. Cur rently her primary pain is in her right hip and leg. She describes difficulty with using he r hands including opening jars, evening taking half gallon of milk out of the refrigerator. She does describe arthritis in both hands feels that this contributes significantly to thes e difficulties. She has not seen a neurologist for this. Her spine and neck symptoms have b een intermittent and variable. Initially her pain was in her back then it went very rapidly and severely to her neck and now her neck hardly hurts her. She reports that her diabetes is fairly well controlled. She reports she only had diabetes since her open heart surgery. Her open heart surgery with subsequent to her heart attack. She does have a history of breast cancer. Her daughter describes several episodes recently which she feels are related to strokes. She has found her mother unresponsive for up to 5 hours at a time. She describes hemiparesis and facial hemiparesis that resulted in evaluati on in the emergency department at [facility]. Apparently a CT scan not available to us yadi jorgensen did demonstrate some evidence of prior stroke. Her symptoms worsen with exertion, standing, and walking. Her symptoms improve with rest, sitting, and lying flat. She describes intermittent bilateral toe as well as bilateral hand numbness. She also desc ribes weakness in her legs and tripping and falling. She describes bilateral hand weakness. Bowel and bladder function are intact other than some chronic urge incontinence. Treatments for these symptoms she has tried include physical therapy, chiropractic manipula tion of the neck, and gabapentin.. PAST MEDICAL HISTORY: Past Medical History Diagnosis Date Coronary artery disease Diabetes mellitus Hypertension Stroke Syncope and collapse Cancer Breast Hyperlipidemia [place] (myocardial infarction) GERD (gastroesophageal reflux disease) Asthma Arthritis PAST SURGICAL HISTORY: Past Surgical History Procedure Date Coronary artery bypass graft 2009 Hysterectomy, total abdominal 1986 CURRENT MEDICATIONS: No current outpatient prescriptions on file prior to visit. ALLERGIES: No Known Allergies SOCIAL HISTORY: The patient reports that she has never smoked. She has never used smokeless tobacco. She r eports that she drinks alcohol. She reports that she does not use illicit drugs. FAMILY HISTORY: No family history on file. REVIEW OF SYSTEMS: GENERAL: No fever, no anemia, no fatigue, no recent profound weight changes. EYES: No eye problems, no use of corrective lenses, no eye injury, no double vision, no bl indness. EARS, NOSE, AND THROAT: No changes in taste or smell, no hearing difficulty, no ringing in the ears, no ear drainage, no dizziness, no voice changes, no difficulty swallowing, no sig nificant snoring, no sleep apnea, no sinus problems, no major dental work. NEUROLOGIC: Please see the review of systems discussed above in the history of present ill ness. MUSCULOSKELETAL: complains of neck pain, complains of back pain. PSYCHIATRIC: No depression, no sleep disorders, no anxiety, no bipolar disorder, no psycho tic episodes. CARDIOVASCULAR: + heart attack, no heart murmur, no heart fluttering, no chest pain, no an kle swelling. PULMONARY: No shortness of breath, no cough, no tuberculosis, no bloody cough, + asthma, no emphysema/COPD. GASTROINTESTINAL: No bowel disease, no nausea or vomiting, no rectal bleeding, no constipa tion, no stool incontinence, no liver disease, no gallbladder disease, no abdominal pain, no ulcers. GENITOURINARY: No urinary frequency, no painful or difficult urination, + Incontinence. ENDOCRINE: + diabetes, no thyroid disease, no osteopenia or osteoporosis, no breast drainag e. SKIN: No breast lumps, no skin changes, no rashes, no itches. HEMATOLOGIC/LYMPHATIC: No enlarged lymph nodes, no easy or unusual bleeding, + personal hi story of cancer. RHEUMATOLOGIC: + joint arthritis, no rheumatoid, no inflammatory arthritis. PHYSICAL EXAMINATION: Blood pressure 117/53, pulse 84, resp. rate 20, height 1.6 m (5' 2.99"), weight 70.489 kg ( 155 lb 6.4 oz). Body mass index is 27.53 kg/(m^2). GENERAL: Clementine Winchester is a pleasant, well developed, well nourished female in no acute d istress with unlabored respirations who appears Older than her stated age. The patient does not appear uncomfortable throughout the exam today. HEENT: HEAD/FACE: EYES: EARS: NASOPHARNYX: OROPHARNYX: Normocephalic and atraumatic. There are no areas of recent trauma. Normal sclerae without icterus. Tympanic membranes are clear. No drainage or tenderness. Benign. Clear without drainage. Benign. Clear without erythema. NECK (ANTERIOR): Supple with no palpable masses. There are not audible bruits. CHEST: Clear to ausculation without crackles or wheeze. HEART: Regular rate and rhythm without murmurs. ABDOMEN: Soft, non-tender, non-distended, and without palpable masses. The patient is not obese. SPINE: The cervical spine exam shows there is tenderness over the region. Range of motion is limited. Rotation and extension does cause symptoms to radiate into the extremities on both sides. There is tenderness in the midline of the thoracic and lumbar spine. There is no major pal pable deformity of the spine. EXTREMITIES: No cyanosis, clubbing, or edema. Distal pulses are palpable. NEUROLOGICAL EXAM: MENTAL STATUS: The patient is awake, alert, and oriented x3. Speech is fluent, comprehension is intact. Affect is appropriate. Fund of knowledge is adequate. Memory is intact for recent and remote events. CRANIAL NERVES: Fundoscopic Exam: The optic disc [...] pain limited MUSCLE/ MOVEMENT: RIGHT LEFT Deltoids 4 4 Biceps 5 5 Triceps 5 5 Wrist Flexion 5 5 Wrist Extension 5 5 Median Intrinsics 5 5 Ulnar Intrinsics 5 5 Furniture Mover Helper Strength 4 (35#) 4+ (40#) Hip Flexion 4 5 Hip Extension 5 5 Knee Flexion 5 5 Knee Extension 5 5 Dorsiflexion 5 5 Extensor Hallicus Longus 5 5 Plantarflexion 5 5 SENSORY EXAM: Sensory exam shows no diminished sensation to light touch or pain throughout the upper and lower extremities. REFLEXES: (2 OR 2+ IS NORMAL) REFLEX: RIGHT LEFT BICEPS 3 3 BRACHIORADIALIS 3 3 TRICEPS 3 3 PATELLAR 2 2 ACHILLES 0 0 RICE'S ABSENT ABSENT PLANTAR MUTE DOWNGOING GAIT: Gait is steady. The patient is not able to heel/ toe, and tandem walk without significant difficulty. PERIPHERAL NERVE/MISC: Tinel is negative at the wrists and elbows bilaterally. Phalen is negative. Straight leg raise is negative bilaterally. Westley's test of the hips is positive on the right. Impingement test is positive on the right. RADIOGRAPHIC REVIEW: Imaging studies which were reviewed with the patient include an MRI of the cervical spine p erformed without contrast on February 24, 2012. This demonstrates severe degenerative disc disease from C4-5 to C7-T1. There is multilevel spondylolisthesis present throughout the l evels. There is resultant canal stenosis also. There appears also neuroforaminal stenosis present worse at C5-6 and C6-7. There is mild swan-neck deformities well. X-rays AP and lateral as well as flexion extension cervical spine performed on June 04 013 demonstrate spinal listhesis without instability at the C4-5, C5-6, C6-7, C7-T1 levels. The extensor degenerative changes present throughout the cervical spine. ASSESSMENT: NEUROSURGICAL DIAGNOSES: Patient Active Problem List Diagnoses Cervical stenosis of spinal canal Spondylolisthesis of cervical region Arthritis Leg pain, bilateral Lumbago Trochanteric bursitis of right hip Right hip pain Stroke of unknown etiology Coronary artery disease Diabetes mellitus Hypertension Stroke Syncope and collapse Cancer Hyperlipidemia [place] (myocardial infarction) GERD (gastroesophageal reflux disease) Asthma GENERAL DIAGNOSES: Past Medical History Diagnosis Date Coronary artery disease Diabetes mellitus Hypertension Stroke Syncope and collapse Cancer Breast Hyperlipidemia [place] (myocardial infarction) GERD (gastroesophageal reflux disease) Asthma Arthritis PLAN: Unfortunately Mrs. Winchester has very severe neck disease as well as extensive medical comorbi dities. Additionally it appears that at this time her neck symptoms are not intact for prim shawn concern. Rather these episodes of altered mental status, hemiparesis, and unresponsiven ess which have not been adequately diagnosed are. We will therefore make arrangements for h er to be evaluated by a neurologist as soon as possible. We'll also attempt to obtain imagi ng studies which were obtained at [facility] to facilitate that. Once we have his images and we can review with been evaluated in regards to her lumbar spin e. It would not surprise me to find that she also has severe spine disease in her lumbar sp ine given the overall appearance of her neck. At that point then we can hopefully make dete rmination regarding potential surgery with a better understanding of what is causing these e pisodes. I do think that she will eventually require some form of intervention for her neck however at this time I do not find any evidence for myelopathy. Rather I think her major symptoms a result of her hip joint on the right. She also has symptoms which are likely result of her back disease. It certainly is conceivable that her neck pain become symptomatic again. We did discuss the natural history of cervical spondylitic myelopathy. I will go ahead and re juanita her to Dr. Ann for evaluation treatment for her right hip as well as for her low back. Pending evaluation workup that she has for these spells we may also consider interven tion for her spine. It is likely that we'll need to obtain an MRI of the lumbar spine without contrast prior to any additional consideration for surgical treatment. I spent 1 hour in visit with Clementine Winchester and her daughter Elisabeth today with the majority of time spent counselling the patient on her diagnosis, discussing options for her care, an leyla coordinating her care. ELECTRONICALLY SIGNED BY: Ramon Real MD, 06/04/2012 17:25 documented in this encounter Plan of Treatment + +---------+--------+ + + | Name | Type | Priori | Associated Diagnoses | Order Schedule | | | | ty | | | + +---------+--------+ + + | MRI Lumbar Spine wo | Imaging | Routin | Lumbago Leg pain, | Expected: | | Contrast | | e | bilateral | 06/04/2012, Expires: | | | | | | 06/04/2013 | + +---------+--------+ + + + + +--------+ + + | Name | Type | Priori | Associated Diagnoses | Order Schedule | | | | ty | | | + + +--------+ + + | Ambulatory referral | Outpatient | Routin | Cervical stenosis | 1 Occurrences | | to Physical Medicine | Referral | e | of spinal canal | starting 06/04/2012 | | Rehab | | | Spondylolisthesis of | until 06/04/2013 | | | | | cervical region | | | | | | Right hip pain | | | | | | Trochanteric | | | | | | bursitis of right | | | | | | hip Lumbago Leg | | | | | | pain, bilateral | | | | | | Arthritis | | + + +--------+ + + | Ambulatory referral | Outpatient | Routin | Stroke of unknown | 1 Occurrences | | to Neurology | Referral | e | etiology (HCC) | starting 06/04/2012 | | | | | | until 06/04/2013 | + + +--------+ + + documented as of this encounter Visit Diagnoses + + | Diagnosis | + + | Cervical stenosis of spinal canal - Primary Spinal stenosis in cervical region | + + | Spondylolisthesis of cervical region Acquired spondylolisthesis | + + | Right hip pain Pain in joint, pelvic region and thigh | + + | Trochanteric bursitis of right hip Enthesopathy of hip region | + + | Lumbago | + + | Leg pain, bilateral Pain in limb | + + | Arthritis Arthropathy, unspecified, site unspecified | + + | Stroke of unknown etiology (HCC) Unspecified cerebral artery occlusion with cerebral | | infarction | + + | Spondylolisthesis of lumbar region Acquired spondylolisthesis | + + documented in this encounter
--- OUTSIDE RECORDS SUMMARY | ~2019-10-27 | XMS | Encounter Summary ---
Demographics + + + | Address | [address] | | | [place] [address] | + + + | Home Phone [...] [place], | | | | | [place] [address] | | + + + + + | Kellen Briones | ECON | [place], [place] | | | | | [address] | | + + + + + Care Team Providers + +------+ + | Care Bias Cutting Machine Operator Vertical Name | Role | Phone | + +------+ + | Anna De Guzman PA-C | PCP | | + +------+ + Reason for Visit +--------+ + | Reason | Comments | +--------+ + | Other | returning patient's call | +--------+ + Encounter Details +--------+ + + + + | Date | Type | Department | Care Team | Description | +--------+ + + + + | 08/18/ | Telephone | [facility] | Susy Abdullahi | Other (returning | | 2013 | | PHYSIATRY [address] | N, RN | patient's call) | | | | [address] | | | | | | [place] | | | | | | [address] | | | | | | [phone] | | | +--------+ + + + [...]
--- OUTSIDE RECORDS SUMMARY | ~2019-10-27 | XMS | Encounter Summary ---
Demographics + + + | Address | [address] | | | [place] [address] | + + + | Home Phone [...] [place], | | | | | [place] [address] | | + + + + + | Kellen Briones | ECON | [place], [place] | | | | | [address] | | + + + + + Care Team Providers + +------+ + | Care Route Service Manager Name | Role | Phone | [...] Thoracic or | [place], | [address] | | | | | lumbosacral | Tk Monreal MD | [place], | | | | | neuritis or | [address] | [place] | | | | | | ST [place] | [address] | | | | | radiculitis, | [place], [place] | Phone: | | | | | unspecified | [address] | [phone] | | | | | Procedures | Phone: | Fax: | | | | | [place] INJECT | [phone] | [phone] | | | | | ANES/STEROID | Fax: | | | | | | FORAMEN | [phone] | | | | | | LUMBAR/SACRA [...] + + | 02/22/ | Hospital | [facility] | [place], | Spinal stenosis of | | 2014 | Encounter | MED CTR XRAY [address] | [address] | lumbar region with | | | | [place] | [facility] [address] | [id number] | | | | [place] [address] | [place] [address] | level moderately | | | | [phone] | [phone] | severe; | | | | | | Spondylolisthesis of | | | | | Yeast Maker [facility] | lumbar region; | | | | [...] | | TRANSFORAMINAL | | PDT | [id number] | results section. | | | | [...] radiculopathy ICD-9 Code 724.4 Clementine Phoenix | [facility] | | Annabella presents to the fluoroscopy suite for fluoroscopically-guided | [facility] | | bilateral L5-S1 transforaminal epidural [...] ST. | [address] | [place] | [phone] | | [facility] | | [address] | | | - IMAGING | | | | + + + + + documented in this encounter Visit Diagnoses + + | Diagnosis | + + | Spinal stenosis of lumbar region with rohtfcyfegdvb-S7-B2 level moderately severe | | Spinal stenosis, [...]
--- OUTSIDE RECORDS SUMMARY | ~2019-10-27 | XMS | Encounter Summary ---
Demographics + + + | Address | [address] | | | [place] [address] | + + + | Home Phone [...] [place], | | | | | [place] [address] | | + + + + + | Kellen Briones | ECON | [place] | | | | | [address] | | + + + + + Care Team Providers + +------+ + | Care Dairy Tester Name | Role | Phone | + +------+ + | Barb Marte | THANG | | + +------+ + Encounter Details +--------+ + + + + | Date | Type | Department | Care Team | Description | +--------+ + + + + | 03/05/ | Hospital | [facility] | Barb Marte PA | Abnormal mammogram | | 2018 | Encounter | MED CTR MAMMOGRAPHY | [address] | | | | | [address] | [address] [place] | | | | | [place] | [address] | | | | | [address] | | | | | | [phone] | [place] | | +--------+ [...] In - 03/05/2018 4:16 PM PDT EXAM: RCAHEL TOMOSYN DIAGNOSTIC LEFT, US | | BREAST [...]
--- OUTSIDE RECORDS SUMMARY | ~2019-10-27 | XMS | Encounter Summary ---
Demographics + + + | Address | [address] | | | [place] [address] | + + + | Home Phone [...] [place], | | | | | [place] [address] | | + + + + + | Kellen Briones | ECON | [place], [place] | | | | | [address] | | + + + + + Care Team Providers + +------+ + | Care Load Haul Dump Operator Name | Role | Phone | [...] + + | 01/07/ | Telephone | [facility] | Tk Ann | Injections | | 2012 | | ORTHOPEDIC SURGERY | MD Jocelin [address] | | | | | [address] [place] [address] | [place], [place] | | | | | [place] | [address] | | | | | [address] | | | | | | [phone] | | | +--------+ + + + [...]
--- OUTSIDE RECORDS SUMMARY | ~2019-10-27 | XMS | Encounter Summary ---
Demographics + + + | Address | [address] | | | [place] [address] | + + + | Home Phone [...] [place], | | | | | [place] [address] | | + + + + + | Kellen Briones | ECON | [place], [place] | | | | | [address] | | + + + + + Care Team Providers + +------+ + | Care Offset Duplicating Machine Operator Name | Role | Phone [...] Description | +--------+--------+ + + + | 09/01/ | Refill | [facility] | Monster White MD | Medication Refill | | 2019 | | [facility] | [address] | | | | | ORTHOPEDIC SPINE | [place], [place] | | | | | [address] | [address] | | | | | [place], [place] | | | | | | [address] | | | | | | [phone] | | | +--------+--------+ + + + [...]
--- OUTSIDE RECORDS SUMMARY | ~2019-10-27 | XMS | Encounter Summary ---
Demographics + + + | Address | [address] | | | [place] [address] | + + + | Home Phone [...] [place], | | | | | [place] [address] | | + + + + + | Kellen Briones | ECON | [place] | | | | | [address] | | + + + + + Care Team Providers + +------+ + | Care Barge Pilot Name | Role | Phone | + +------+ + | Barb Marte | THANG | | + +------+ + Encounter Details +--------+ + + + + | Date | Type | Department | Care Team | Description | +--------+ + + + + | 11/05/ | Hospital | [facility] | Irving Becerril, | Status post cervical | | 2018 | Encounter | MED CTR XRAY [address] | DO [address] | spinal fusion | | | | [place] | [address] | | | | | [place] [address] | [address] | | | | | [phone] | | | +--------+ + + + [...]
--- OUTSIDE RECORDS SUMMARY | ~2019-10-27 | XMS | Encounter Summary ---
Demographics + + + | Address | [address] | | | [place] [address] | + + + | Home Phone | | + + + | Preferred Language | Unknown | + + + | Marital Status | | + + + | Anabaptist Affiliation | [id number] | + + + | Race | Unknown | + + + | Ethnic Group | Unknown | + + + Author + + + | Author | [facility] | | | and [place] | + + + | Organization | [facility] | | | and [place] | + + + | Address | Unknown | + + + | Phone | Unavailable | + + + Support + + + + + | Name | Relationship | Address | Phone | + + + + + | Lucy Winchester | ECON | [place], | | | | | [place] [address] | | + + + + + | Kellen Briones | ECON | [place], [place] | | | | | [address] | | + + + + + Care Team Providers + +------+ + | Care Shoe Stitcher Odd Name | Role | Phone | + [...] + + | 08/28/ | Telephone | [facility] | Patrick Gaffney MD [address] | Results | | 2012 | | NEUROLOGY [place] | [facility] | | | | | [address] [facility], | [address], | | | | | [address] [place] | [place] [address] | | | | | [place] [address] | [phone] | | | | | [phone] | | | +--------+ + + + [...]
--- OUTSIDE RECORDS SUMMARY | ~2019-10-27 | XMS | Encounter Summary ---
Demographics + + + | Address | [address] | | | [place] [address] | + + + | Home Phone [...] [place], | | | | | [place] [address] | | + + + + + | Kellen Briones | ECON | [place], [place] | | | | | [address] | | + + + + + Care Team Providers + +------+ + | Care Customer Sales Specialist Name | Role | Phone | [...] | [address] | [place], [place] | | | | | [place], [place] | [address] | | | | | [address] | | | | | | [phone] | | | +--------+ + + + [...]
--- OUTSIDE RECORDS SUMMARY | ~2019-10-27 | XMS | Encounter Summary ---
Demographics + + + | Address | [address] | | | [place] [address] | + + + | Home Phone [...] [place], | | | | | [place] [address] | | + + + + + | Kellen Briones | ECON | [place], [place] | | | | | [address] | | + + + + + Care Team Providers + +------+ + | Care Director Alumni Relations Name | Role | Phone | + +------+ + | Anna De Guzman PA-C | PCP | | + +------+ + Reason for Visit + + + | Reason | Comments | + + + | Neck Pain | Neck pain, worse on the right than the left | + + + Encounter Details +--------+---------+ + + + | Date | Type | Department | Care Team | Description | +--------+---------+ + + + | 05/11/ | Office | [facility] | Tk Ann | Neck pain on right | | 2012 | Visit | PHYSIATRY [address] | T, [address] | side (Primary Dx); | | | | [address] | [place] | Facet arthritis of | | | | [place] | [address] | cervical region; DDD | | | | [address] | | (degenerative disc | | | | [phone] | | disease), cervical; | | | | | | Spondylolisthesis of | | | | | | cervical region; | | | | | | Cervical stenosis of | | | | | | spinal canal; | | | | | | Lumbar | | | | | | radiculopathy; DDD | | | | | | (degenerative disc | | | | | | disease), lumbar; | | | | | | Spinal stenosis of | | | | | | lumbar region with | | | | | | hnxbasjwgjohw-M7-C5 | | | | | | level moderately | | | | | | severe; Facet | | | | | | arthritis of lumbar | | | | | | region-Most severe | | | | | | at L4-L5,L5-S1; | | | | | | Chronic narcotic use | +--------+---------+ + + + Social History [...] + + + | Blood Pressure | 102/47 | 05/11/2013 12:04 PM | | | | | PST | | + + + + + | Pulse | 82 | 05/11/2013 12:04 PM | | | | | PST [...] Weight | 73.9 kg (163 lb) | 05/11/2013 12:04 PM | | | | | PST | | + + + + + | Height | 158.8 cm (5' 2.5") | 05/11/2013 12:04 PM | | | | | PST | | + + + + + | Body Mass Index | 29.34 | 05/11/2013 12:04 PM | | | | | PST | | + + + + + documented in this encounter Patient Instructions Patient Instructions Susy Kaplan RN - 05/11/2013 12:36 PM PST Follow-up at the hospital thirty minutes [...] of the procedure you must provide a bus driver to take you home. For all procedur es it is recommended that someone else drive you home. documented in this encounter Progress Notes Tk Ann MD - 05/13/2013 6:43 AM PST Patient ID: Clementine Winchester is a 72 y.o. female. Chief Complaint Patient presents with Neck Pain Neck pain, worse on the right than the left HPI The patient is being seen today in follow-up for complaints of right sided neck pain. She has been seen for this and low back complaints in the past. The low back and leg pain is si gnificantly improved following epidural steroid injections. With regard to the neck pain, s he denies any radicular symptoms into the arms. She does have some pain in the region of th e upper trapezius. She had actually been seeing Dr. Jordan in [place] for the neck issues and was scheduled for neck injections but she had a falling out with Dr. Jordan and the inj ections were never performed. The patient's neck symptoms have been a [...] the b ack and leg issues are better after the epidural injections. She denies bowel and bladder dysfunction. She [...] in April of 2013. These were bilateral L5-S1 TFESI. She reports good relief with the injections and is still having good relief. MRI of the cervical and lumbar spine [...] tablet Take 20 mg by mouth Daily. furosemide [...] as in HPI. Physical Exam Blood pressure 102/47, pulse 82, height 1.588 m (5' 2.5"), weight 73.936 [...] TRICEPS 2+ 2+ PATELLAR 2+ 2+ ACHILLES 2+ 2+ RICE'S Negative Negative PLANTAR Downgoing Downgoing Skin: [...] of the low back pain to the L4-L5 region down to the buttocks and into the legs. Lumbar facet loading was positive for pain at L4-L5. Strength testing showed 5/5 strength throughout the lower extremities. The patie nt was able to heel and toe walk [...] 8. Spinal stenosis of lumbar region with xwesigfnkeqio-K5-T9 level moderately severe 9. Facet arthritis of lumbar region-Most severe at L4-L5,L5-S1 10. Chronic narcotic use Plan: 1. The patient has tried conservative care including PT, chiropractic and medications but continues to have significant pain. She cannot take NSAIDs because of gastric issues. I did think that she would be a good candidate for interventional procedures on the cervical spine . Initially I considered trigger point injections given the findings on physical examination it appeared that the pain correlated most with facet pain and therefore I offered cervical facet injections off to the right at C4-C5, C5-C6 and C6-C7. 2. She has had quite a few steroid injections this year and we need to start limiting the i njections to avoid causing issues with worsening of osteoporosis. 3. The patient is already on multiple [...] of the lumbar spine at [facility]. I will reques t these be placed on I-site. She has previously seen Dr. Real and has been in contact with Dr. Bceerril's office in the past. I would be happy to provide a formal referral if need ed. 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
--- OUTSIDE RECORDS SUMMARY | ~2019-10-27 | XMS | Encounter Summary ---
Demographics + + + | Address | [address] | | | [place] [address] | + + + | Home Phone [...] + + | Author | [facility] | | | and [place] | + + + | Organization | [facility] | | [...] [place], | | | | | [place] [address] | | + + + + + | Kellen Briones | ECON | [place], [place] | | | | | [address] | | + + + + + Care Team Providers + +------+ + | Care Space Systems Operations Superintendent Name | Role | Phone | [...] + + | 01/26/ | Office | [facility] | [place], | Spinal stenosis of | | 2015 | Visit | PHYSIATRY [address] | [address] | lumbar region with | | | | [address] | [address] | fkgfkzzjubzjc-U2-U0 | | | | [place] | [place] [address] | level moderately | | | | [address] | [phone] | severe (Primary Dx); | | | | [phone] | | Spondylolisthesis | | | | [...] of the procedure you must provide a jinrikisha driver to take you home. For all [...] spinal stenosis. Her last injection was in [facility] of this year. She reports that the treatment was effective for approximately 1 months. 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 The patient reports overall [...] and narcotic medications use; she currently uses Marion, Flexeril and ga bapentin. Patient's medications, allergies, [...] has no apparent deficits with short or fdc memory. She has appropriate fund of knowledge [...] 1. Spinal stenosis of lumbar region with jvemekbkmzhqi-G8-H9 level moderately severe 2. Spondylolisthesis of lumbar [...] extension x-rays of the lumbar spine at [facility]. I previously requ ested that [...] 721.0 Clementine Winchester presents to the | [facility] | | fluoroscopy suite for fluoroscopically-guided right C3-C4, C4-C5 and | [facility] | | C5-C6 facet injections as [...] [address] | [place] | [phone] | | [facility] | | [address] | | | - IMAGING | | | | + + + + + [place] BAUTISTA Lumbar Transforaminal (02/22/2015 1:02 PM PDT) + + | Specimen | + + | | + + + + + | Narrative | Performed At | + + + | 02/22/2015 Bilateral Transforaminal Epidural Steroid Injections | [facility] | | Diagnosis: Lumbar radiculopathy ICD-9 Code 724.4 Clementine Phoenix | [facility] | | Annabella presents to the fluoroscopy suite for fluoroscopically-guided [facility] | | bilateral L5-S1 transforaminal epidural [...] ST. | [address] | [place], [place] | [phone] | | [facility] | | [address] | | | - IMAGING | | | | + + + + + documented in this encounter Visit Diagnoses + + | Diagnosis | + + | Spinal stenosis of lumbar region with nwofdcoahleix-M5-A8 level moderately severe - | | Primary [...]
--- OUTSIDE RECORDS SUMMARY | ~2019-10-27 | XMS | Encounter Summary ---
Demographics + + + | Address | [address] | | | [place] [address] | + + + | Home Phone [...] [place], | | | | | [place] [address] | | + + + + + | Kellen Briones | ECON | [place] | | | | | [address] | | + + + + + Care Team Providers + +------+ + | Care Circular Shear Operator Name | Role | Phone | + +------+ + | Barb Marte | THANG | | + +------+ + Encounter Details +--------+ + + + + | Date | Type | Department | Care Team | Description | +--------+ + + + + | 12/29/ | Hospital | [facility] | Chavo Jacob, | DDD (degenerative | | 2019 | Encounter | MED CTR XRAY [address] | PA-C [address] | disc disease), | | | | [place] | [address] [place] | lumbar; Lumbar | | | | [place] [address] | [place] [address] | radiculopathy | | | | [phone] | [phone] | | | | | | | [...]
--- OUTSIDE RECORDS SUMMARY | ~2019-10-27 | XMS | Encounter Summary ---
Demographics + + + | Address | [address] | | | [place] [address] | + + + | Home Phone [...] [place], | | | | | [place] [address] | | + + + + + | Kellen Briones | ECON | [place] | | | | | [address] | | + + + + + Care Team Providers + +------+ + | Care Manager Policy Name | Role | Phone | + +------+ + | Barb Marte | PCP | | + +------+ + Encounter Details +--------+ + + + + | Date | Type | Department | Care Team | Description | +--------+ + + + + | 08/04/ | Clinical | [facility] | | S/P lumbar spinal | | 2020 | Support | NEUROSURGERY [address] | | fusion | | | | [address] | | | | | | [facility] | | | | | | [address] | | | | | | [phone] | | | +--------+ + + + [...] +---------+ + + | Blood Pressure | 148/75 | 08/05/2019 1:47 PM | | | | | PST | | + +---------+ + + | Pulse | 72 | 08/05/2019 1:47 PM | | | | | PST [...] +---------+ + + documented in this encounter Functional Status + + + [...] Instructions Patient Instructions Marialuisa Pool RN - 08/05/2019 1:30 PM PST1. Continue to wear your brace 2. Be reminded of your restrictions: No bending, lifting, twisting and no sitting for >20 -30 minutes 3. Continue to increase your activity level 4. Try to taper down on your pain medication as symptoms continue to improve 5. Ice therapy especially after activity 6. Follow up in 6 weeks 7. No direct water on incisions for 1 more week. 8. May take Tylenol as needed for pain, up to 3,000 mg a day. documented in this encounter Progress Notes Marialuisa Pool RN - 08/05/2019 1:30 PM PSTSubjective: The patient is here for their first postoperative appointment. The patient is S/P L4-5 XLI F with posterior instrumentation, decompression and fusion on 07/22/19. Only the patient antelmo en to exam room, daughter volunteered to wait in the lobby. The patient reports no wound problems or fevers. The preoperative symptoms are improved. Pain today is 6/10 with pain medication. Pain descr ibed as burning and aching in the lower back. Patient has pain in the left foot from gout f lare up. Pain increases with pushing and changing positions and improves with ice, rest, PT and narcotic pain medication. Patient is wearing LSO brace as prescribed. Patient denies any bladder or bowel dysfunction associated with her symptoms. Patient is currently at [facility], hopes to be discharged home this week. Using pain medications?: Oxycodone 5 mg 1 tab every 6 hours PRN, Indomethacin 50 mg BID, m ethocarbamol 500 mg 1 tab TID PRN. Refills needed?: no. Objective: Alert and oriented x 3. Incision: clean, dry, intact. Lateral: steri strips removed, incision well approximated, m oderate swelling at superior portion of incision, non-tender when palpated, no redness, no s cab, no drainage, incision healing well. Lumbar: well approximated, minimal swelling around incisions, scab present the length of incisions, no redness, no drainage, incisions healing well. Motor: 4/5 bilateral lower extremities. Sensation: Intact to light touch throughout. Gait: Patient in wheelchair today, states she uses a 2 wheeled walker at the facility Imaging: Reviewed intra-op imaging Assessment/Plan: S/P L4-5 XLIF with posterior instrumentation, decompression and fusion on 07/22/19, doing we ll. We discussed postop restrictions including lifting and activity, lifting no more than 1 0 lbs. Walking is the ideal form of exercise during this period. Activity should be increase d slowly and stopping when there is added pain is the best approach. Goal is to decrease pa in medication as pain decreases. Do not take ibuprofen or naproxen for 3 months, may take T ylenol as needed. Continue to ice after walking or activity. Continue to wear LSO brace as p rescribed. Assessed patient's safety at home and if she feels safe with her daughter. Ok nt states she feels safe with her daughter and no threats to her safety or at home. The patient will followup in 6 weeks. The patient was given an appointment reminder. The patient was reminded to contact the office in the interim if there are any problems or tyra rns. documented in this en counter Plan of Treatment Not on filedocumented as of this encounter Visit Diagnoses + + | Diagnosis | + + | S/P lumbar spinal fusion Arthrodesis status | + + documented in this encounter"
--- OUTSIDE RECORDS SUMMARY | ~2019-10-27 | XMS | Encounter Summary ---
Demographics + + + | Address | [address] | | | [place] [address] | + + + | Home Phone [...] [place], | | | | | [place] [address] | | + + + + + | Kellen Briones | ECON | [place] | | | | | [address] | | + + + + + Care Team Providers + +------+ + | Care Traveling Construction Superintendent Name | Role | Phone | [...] | | | | Lumbar | | [address] Phone: | | | | | degenerative | | [phone] | | | | | disc | | Fax: | | | | | disease | | [phone] | | | | | Procedures | | | | | | | LAMINEC/FACE | | | | | | | TECT/FORAMIN | | | | | | | ,LUMBAR 1 | | | | | | | SEG [place] | | | | | | [...] + + | 07/22/ | Anesthesia | [facility] | Kaiser Rayo, | | | 2019 | [facility] | [address] | | | | | OPER[address] | [place] [address] | | | | | [address] | Gita Etienne MD | | | | | [place], [place] | [address] | | | | | [address] | [place] [address] | | | | | [phone] | [phone] | | | | | | | [...] +----+---+ + + | | 0 | [place] | | | | 7 | 43-degrees [...] [address] | | eral | Antecubital; [id number] | Linda Basilio, | [place] [...]
--- OUTSIDE RECORDS SUMMARY | ~2019-10-27 | XMS | Encounter Summary ---
Demographics + + + | Address | [address] | | | [place] [address] | + + + | Home Phone [...] [place], | | | | | [place] [address] | | + + + + + | Kellen Briones | ECON | [place], [place] | | | | | [address] | | + + + + + Care Team Providers + +------+ + | Care Fur Floor Worker Name | Role | Phone | [...] | Lumbar | [place], | [address] | | | | | radiculopath | Tk Mnoreal MD | [place], | | | | | y | [address] | [place] | | | | | Procedures | [place] | [address] | | | | | [place] INJECT | [place] | Phone: | | | | | ANES/STEROID | [address] | [phone] | | | | | FORAMEN | Phone: | Fax: | | | | | LUMBAR/SACRA | [phone] | [phone] | | | | | L [address] IMG | Fax: | | | | | | GUIDE ,1 | [phone] | | | | | | LEVEL [...] + + | 09/29/ | Hospital | [facility] | Mono Diaz, | Lumbar radiculopathy | | 2019 | Encounter | MED CTR XRAY [address] | PA-C [address] | | | | | [place] | [address] [place] | | | | | [place] [address] | [place] [address] | | | | | [phone] | [phone] | | | | | | | | | | | | Transporter DriverJordan | | | | | | [place] [...]
--- OUTSIDE RECORDS SUMMARY | ~2019-10-27 | XMS | Encounter Summary ---
Demographics + + + | Address | [address] | | | [place] [address] | + + + | Home Phone [...] [place], | | | | | [place] [address] | | + + + + + | Kellen Briones | ECON | [place] | | | | | [address] | | + + + + + Care Team Providers + +------+ + | Care Fashion Styling Intern Name | Role | Phone | + +------+ + | Barb Marte | THANG | | + +------+ + Encounter Details +--------+ + + + + | Date | Type | Department | Care Team | Description | +--------+ + + + + | 01/03/ | Hospital | [facility] | Barb Marte PA | Visit for screening | | 2018 | Encounter | MED CTR MAMMOGRAPHY | [address] | mammogram | | | | [address] | [address] [place] [place] | | | | | [place], [place] | [address] | | | | | [address] | | | | | | [phone] | | | +--------+ + + + [...] | | SCREENING LEFT | e | 1:09 PM | screening mammogram | procedure are in the | | | | PDT | | results section. | + +--------+ + + + documented in this encounter Results RACHEL Tomosynthesis Screening Left (01/03/2018 1:09 PM PDT) + + | Specimen | [...] visible on the MLO view. | | | There is no associated architectural distortion. No other mass, | | | distortion or suspicious calcification is visible on the 2-D or marcos | | | images. Numerous round and punctate calcifications persist, without | | | suspicious grouping. Images were reviewed with CAD. IMPRESSION | | | - 1. BIRADS 0, further evaluation required. RECOMMENDATION: | | | Follow-up true lateral, repeat MLO and spot compression CC combo | | | views of the left breast and possible left breast ultrasound for | | | further characterization of a rounded density in the far posterior | | | breast. Dictated and Signed by: Papito Coffman MD Electronically | | | signed: 01/17/2018 4:29 PM | | + + + + + | Procedure Note | + + | Howard, Rad Results In - 01/17/2018 4:32 PM PDT DIGITAL LEFT SCREENING MAMMOGRAM WITH | [...] + + | Visit for screening mammogram Other screening mammogram | + + documented in this encounter"
--- OUTSIDE RECORDS SUMMARY | ~2019-10-27 | XMS | Encounter Summary ---
Demographics + + + | Address | [address] | | | [place] [address] | + + + | Home Phone [...] [place], | | | | | [place] [address] | | + + + + + | Kellen Briones | ECON | [place], [place] | | | | | [address] | | + + + + + Care Team Providers + +------+ + | Care Plastics Bench Mechanic Name | Role | Phone | + +------+ + | Anna De Guzman PA-C | PCP | | + +------+ + Encounter Details +--------+ + + + + | Date | Type | Department | Care Team | Description | +--------+ + + + + | 06/04/ | Hospital | [facility] | RealRamon das | Neck pain | | 2012 - | Encounter | MED CTR XRAY [address] | F[address] | | | | | [place] | [address] [place], [place] | | | 06/06/ | | [place] [address] | [address] | | | 2012 | | [phone] | [phone] | | | | | | | [...] Performed At | + + + | [facility] | [place] | | Department [address] [facility] | [facility] | | [ rep [address]] [ rep [facility] | | [facility]] Signed | - IMAGING | | | | | Patient Name: CLEMENTINE WINCHESTER Physician: | | | ARRE.01 : 1940 Age: 72 Sex: F Unit #: [id number] | | | Exam Date: 06/04/12 Location: [facility] | | | Report #: [id number] Page: | | | %(RAD)RES..mtdd.print.filter("pg") of %(RAD) | | | RES..mtdd.print.filter("tpg") | | | | | | Accession Number: [id number] | | | CERVICAL SPINE, 06/04/2012 CLINICAL [...] Transcribed | | | Date/Time: 06/04/2012 17:12 Dental Chairside Assistant: | | | <<Signature on File>> | | | | | | Gordon Burrell MD06/05/12 0852 <Electronically signed by | | | Gordon Burrell MD> Gordon Burrell MD 06/04/12 | | | 1701 Dental Chairside Assistant: Zulema Cuvgbqpfhkwjq47/[id number]/132 | | | Ramon Real MD | | + + + + + + + + | Performing | Address | City/State/Zipcode | Phone Number | | Organization | | | | + + + + + | [facility] | [address] | [place] | [phone] | | [facility] | | [address] | | | - IMAGING | | | | + + + + + documented in this encounter Visit Diagnoses + + | Diagnosis | + + | Neck pain Cervicalgia | + + documented in this encounter
--- OUTSIDE RECORDS SUMMARY | ~2019-10-27 | XMS | Encounter Summary ---
Demographics + + + | Address | [address] | | | [place] [address] | + + + | Home Phone [...] [place], | | | | | [place] [address] | | + + + + + | Kellen Briones | ECON | [place] | | | | | [address] | | + + + + + Care Team Providers + +------+ + | Care Earthmoving Plant Operator Name | Role | Phone | + +------+ + | Barb Marte | THANG | | + +------+ + Encounter Details +--------+ + + + + | Date | Type | Department | Care Team | Description | +--------+ + + + + | 12/29/ | Orders Only | [facility] | Leonard Terrazas | Spinal stenosis of | | 2018 | | NEUROSURGERY [address] | MD Di [address] | lumbar region, | | | | [address] | [address] [place] | unspecified whether | | | | [place], [place] | [place] [address]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 | | | | [address] | [phone] | claudication present | | | | [phone] | | (Primary Dx); DDD | | | | | | (degenerative disc | | | | | | disease), lumbar; | | | | | | Lumbar | | | | | | radiculopathy; | | | | | | 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; Back | | | | | | pain, unspecified | | | | | | back location, | | | | | | unspecified back | | | | | | pain laterality, | | | | | | unspecified | | | | | | chronicity; Presence | | | | | | of aortocoronary | | | | | | bypass graft | +--------+ + + + + Social [...] of this encounter Plan of Treatment + +------+--------+ + + | Name | Type | Priori | Associated Diagnoses | Order Schedule | | | | ty | | | + +------+--------+ + + | Basic Metabolic | Lab | Routin | Presence of | Expected: | | Panel | | e | aortocoronary bypass | 12/18/2018, Expires: | | | | | graft | 12/19/2019 | + +------+--------+ + + documented as of this encounter Visit Diagnoses + + | Diagnosis | + + | Spinal stenosis of lumbar region, unspecified whether neurogenic claudication present | | - Primary | + + | DDD (degenerative disc disease), lumbar Degeneration of lumbar or lumbosacral | | intervertebral disc | + + | Lumbar radiculopathy Thoracic or lumbosacral neuritis or radiculitis, unspecified | + + | Spondylolisthesis of lumbar region Acquired spondylolisthesis | + + | Back pain, unspecified back location, unspecified back pain laterality, unspecified | | chronicity | + + | 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
--- OUTSIDE RECORDS SUMMARY | ~2019-10-27 | XMS | Encounter Summary ---
Demographics + + + | Address | [address] | | | [place] [address] | + + + | Home Phone [...] [place], | | | | | [place] [address] | | + + + + + | Kellen Briones | ECON | [place], [place] | | | | | [address] | | + + + + + Care Team Providers + +------+ + | Care Lead Generation Marketing Manager Name | Role | Phone | + +------+ + | Anna De Guzman PA-C | PCP | | + +------+ + Encounter Details +--------+ + + + + | Date | Type | Department | Care Team | Description | +--------+ + + + + | 02/01/ | Hospital | [facility] | Irving Becerril, | Neck pain | | 2016 | Encounter | MED CTR XRAY [address] | DO [address] | | | | | [place] | [address] [place], [place] | | | | | [place] [address] | [id number] | | | | | [phone] | | | +--------+ + + + [...] + | [address] | [address] | [place] | [phone] | | [facility] | | [address] | | | - IMAGING | | | | + + + + + documented in this encounter Visit Diagnoses + + | Diagnosis | + + | Neck pain Cervicalgia | + + documented in this encounter"
--- OUTSIDE RECORDS SUMMARY | ~2019-10-27 | XMS | Encounter Summary ---
Demographics + + + | Address | [address] | | | [place] [address] | + + + | Home Phone [...] [place], | | | | | [place] [address] | | + + + + + | Kellen Briones | ECON | [place], [place] | | | | | [address] | | + + + + + Care Team Providers + +------+ + | Care Cooler Room Worker Name | Role | Phone | [...] + + | 03/19/ | Telephone | [facility] | Tk Ann | Appointment | | 2012 | | PHYSIATRY [address] | [address] | | | | | [address] | ST [place], [place] | | | | | [place], [place] | [address] | | | | | [address] | | | | | | [phone] | | | +--------+ + + + [...]
--- OUTSIDE RECORDS SUMMARY | ~2019-10-27 | XMS | Encounter Summary ---
Demographics + + + | Address | [address] | | | [place] [address] | + + + | Home Phone [...] [place], | | | | | [place] [address] | | + + + + + | Kellen Briones | ECON | [place], [place] | | | | | [address] | | + + + + + Care Team Providers + +------+ + | Care Machining Engineer Name | Role | Phone | + +------+ + | Barb Marte | PCP | | + +------+ + Reason for Visit + + + | Reason | Comments | + + + | Follow-up | appointment | + + + Encounter Details +--------+ + + + + | Date | Type | Department | Care Team | Description | +--------+ + + + + | 04/21/ | Telephone | [facility] | Monster White MD | Follow-up | | 2019 | | [facility] | [address] | (appointment) | | | | ORTHOPEDIC SPINE | [facility] [place], [place] | | | | | [address] | [address] | | | | | [place] | | | | | | [address] | | | | | | [phone] | | | +--------+ + + + [...]
--- OUTSIDE RECORDS SUMMARY | ~2019-10-27 | XMS | Encounter Summary ---
Demographics + + + | Address | [address] | | | [place] [address] | + + + | Home Phone [...] [place], | | | | | [place] [address] | | + + + + + | Kellen Briones | ECON | [place], [place] | | | | | [address] | | + + + + + Care Team Providers + +------+ + | Care Dry Cleaner Hand Name | Role | Phone | [...] [address] | | | | | | ([facility]) S/P | [address] | | | | | | cervical | [place] | | | | | | spinal | [address] | | | | | | fusion | Phone: | | | | | | | [phone] | | | | | | | Fax: | | | | | | | [phone] | | +--------+ + + + + + Reason for Visit +---------+ + | Reason | Comments | +---------+ + | Post Op | 3m PO | +---------+ + Encounter Details +--------+---------+ + + + | Date | Type | Department | Care Team | Description | +--------+---------+ + + + | 07/04/ | Office | [facility] | Irving Becerril, | Cervical myelopathy | | 2017 | Visit | NEUROSURGERY [address] | DO [address] | ([facility]) (Primary Dx); | | | | [address] | [address] [place], [place] | S/P cervical spinal | | | | [place], [place] | [id number] | fusion | | | | [address] | | | | | | [phone] | | | +--------+---------+ + + + [...] m the original. Irving Becerril DO [address] [facility] [address] [place] [address] FAX: NEUROSURGERY FOLLOW-UP CHIEF COMPLAINT: Chief Complaint [...] (HCC) Hypertension Cancer (HCC) Right breast Hyperlipidemia [place] (myocardial infarction) (HCC) GERD (gastroesophageal reflux disease) Asthma Arthritis Lumbar radiculopathy 07/23/2012 DDD (degenerative disc disease), lumbar 07/23/2012 Spinal stenosis of lumbar region with oarovwkltwgih-L5-V4 level moderately severe 2012 Facet arthritis of [...] 1989' Mastectomy, radical 1987 Right Breast reconstruction 2841-2913 About 10 surgeries Bone spur left foot Blepharoptosis repair 2009 bilateral Cervical spine surgery Anterior 03/30/2016 Procedure: C3-4, C4-5, C5-6, C6-7 Anterior Cervical Discectomy w/ Fusion and Plating; Enamorado rgeon: Irving Becerril DO; Location: [facility] MAIN OR CURRENT MEDICATIONS: Current Outpatient [...] (HCC) Hypertension Cancer (HCC) Right breast Hyperlipidemia [place] (myocardial infarction) (HCC) GERD (gastroesophageal reflux disease) Asthma Arthritis Lumbar radiculopathy 07/23/2012 DDD (degenerative disc disease), lumbar 07/23/2012 Spinal stenosis of lumbar region with mhpvhkooroumg-A4-E6 level moderately severe 2012 Facet arthritis of [...]
--- OUTSIDE RECORDS SUMMARY | ~2019-10-27 | XMS | Encounter Summary ---
Demographics + + + | Address | [address] | | | [place] [address] | + + + | Home Phone [...] [place], | | | | | [place] [address] | | + + + + + | Kellen Briones | ECON | [place], [place] | | | | | [address] | | + + + + + Care Team Providers + +------+ + | Care Dispatch Associate Name | Role | Phone | + +------+ + | Barb Marte | PCP | | + +------+ + Reason for Visit + + + | Reason | Comments | + + + | Results, Imaging | | + + + Encounter Details +--------+ + + + + | Date | Type | Department | Care Team | Description | +--------+ + + + + | 01/23/ | Telephone | [facility] | Mono Diaz, | Results, Imaging | | 2017 | | PHYSIATRY [address] | PA-C [address] | | | | | [address] | [address] [facility] | | | | | [facility] [place] | [place] [address] | | | | | [address] | [phone] | | | | | [phone] | | | +--------+ + + + [...]
--- OUTSIDE RECORDS SUMMARY | ~2019-10-27 | XMS | Encounter Summary ---
Demographics + + + | Address | [address] | | | [place] [address] | + + + | Home Phone [...] [place], | | | | | [place] [address] | | + + + + + | Kellen Briones | ECON | [place] | | | | | [address] | | + + + + + Care Team Providers + +------+ + | Care Shuttle Filler Name | Role | Phone | [...] [address] | | | | | IMAGING [address] | Lauren Rodarte. | | | | | [address] [facility] | [place] [address] | | | | | [place] [address] | | | | | | [phone] | | | +--------+ + + + [...]
--- OUTSIDE RECORDS SUMMARY | ~2019-10-27 | XMS | Encounter Summary ---
Demographics + + + | Address | [address] | | | [place] [address] | + + + | Home Phone [...] [place], | | | | | [place] [address] | | + + + + + | Kellen Briones | ECON | [place], [place] | | | | | [address] | | + + + + + Care Team Providers + +------+ + | Care Civil Engineering Design Draftsperson Name | Role | Phone | + [...] + + | 01/26/ | Office | [facility] | [place], | Spinal stenosis of | | 2015 | Visit | PHYSIATRY [address] | [address] | lumbar region with | | | | [address] | [address] | uifgsoykbvajk-H1-P2 | | | | [place] | [place] [address] | level moderately | | | | [address] | [phone] | severe (Primary Dx); | | | | [phone] | | Spondylolisthesis | | | | [...] of the procedure you must provide a food mobile driver to take you home. For all [...] spinal stenosis. Her last injection was in [facility] of this year. She reports that the treatment was effective for approximately 1 months. 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 The patient reports overall [...] and narcotic medications use; she currently uses [place], Flexeril and [place] bapentin. Patient's medications, allergies, [...] 1. Spinal stenosis of lumbar region with iwqmwedkileoj-F7-K1 level moderately severe 2. Spondylolisthesis of lumbar [...] x-rays of the lumbar spine at [facility]. I previously requ ested that these be [...] 721.0 Clementine Winchester presents to the | [facility] | | fluoroscopy suite for fluoroscopically-guided right C3-C4, C4-C5 and | [facility] | | C5-C6 facet injections as part [...] [address] | [place] | [phone] | | [facility] | | [address] | | | - IMAGING | | | | + + + + + [place] BAUTISTA Lumbar Transforaminal (02/22/2015 1:02 PM PDT) + + | Specimen | + + | | + + + + + | Narrative | Performed At | + + + | 02/22/2015 Bilateral Transforaminal Epidural Steroid Injections | [place] | | Diagnosis: Lumbar radiculopathy ICD-9 Code 724.4 Clementine Phoenix | [facility] | | Annabella presents to the fluoroscopy suite for fluoroscopically-guided [facility] | | bilateral L5-S1 [...] ST. | [address] | [place], [place] | [phone] | | [facility] | | [address] | | | - IMAGING | | | | + + + + + documented in this encounter Visit Diagnoses + + | Diagnosis | + + | Spinal stenosis of lumbar region with dibxtcebeblqm-T7-G7 level moderately severe - | | Primary [...]
--- OUTSIDE RECORDS SUMMARY | ~2019-10-27 | XMS | Encounter Summary ---
Demographics + + + | Address | [address] | | | [place] [address] | + + + | Home Phone [...] [place], | | | | | [place] [address] | | + + + + + | Kellen Briones | ECON | [place] | | | | | [address] | | + + + + + Care Team Providers + +------+ + | Care Sinter Press Operator Name | Role | Phone | + +------+ + | Barb Marte | PCP | | + +------+ + Encounter Details +--------+ + + + + | Date | Type | Department | Care Team | Description | +--------+ + + + + | 08/04/ | Clinical | [facility] | | S/P lumbar spinal | | 2020 | Support | NEUROSURGERY [address] | | fusion | | | | [address] | | | | | | [facility] [place] | | | | | | [address] | | | | | | [phone] | | | +--------+ + + + [...] with her symptoms. Patient is currently at [facility], hopes to be discharged home this week. [...]
--- OUTSIDE RECORDS SUMMARY | ~2019-10-27 | XMS | Encounter Summary ---
Demographics + + + | Address | [address] | | | [place] [address] | + + + | Home Phone [...] [place], | | | | | [place] [address] | | + + + + + | Kellen Briones | ECON | [place], [place] | | | | | [address] | | + + + + + Care Team Providers + +------+ + | Care Tune Up Mechanic Name | Role | Phone | + +------+ + | Anna De Guzman PA-C | PCP | | + +------+ + Encounter Details +--------+ + + + + | Date | Type | Department | Care Team | Description | +--------+ + + + + | 02/01/ | Hospital | [facility] | Irving Becerril, | Neck pain | | 2016 | Encounter | MED CTR XRAY [address] | DO [address] | | | | | [place] | [address] [place], [place] | | | | | [place] [address] | [id number] | | | | | [phone] | | | +--------+ + + + [...] [address] | [place] | [phone] | | [facility] | | [address] | | | - IMAGING | | | | + + + + + documented in this encounter Visit Diagnoses + + | Diagnosis | + + | Neck pain Cervicalgia | + + documented in this encounter"
--- OUTSIDE RECORDS SUMMARY | ~2019-10-27 | XMS | Encounter Summary ---
Demographics + + + | Address | [address] | | | [place] [address] | + + + | Home Phone | | + + + | Preferred Language | Unknown | + + + | Marital Status | | + + + | Jew Affiliation | 1041 | + + + | Race | Unknown | + + + | Ethnic Group | Unknown | + + + Author + + + | Author | [facility] | | | and [place] | + + + | Organization | [facility] | | | and [place] | + + + | Address | Unknown | + + + | Phone | Unavailable | + + + Support + + + + + | Name | Relationship | Address | Phone | + + + + + | Lucy Winchester | ECON | [place], | | | | | [place] [address] | | + + + + + | Kellen Briones | ECON | [place], [place] | | | | | [address] | | + + + + + Care Team Providers + +------+ + | Care Milk Handler Name | Role | Phone | + +------+ + | Anna De Guzman PA-C | PCP | | + +------+ + Encounter Details +--------+ + + + + | Date | Type | Department | Care Team | Description | +--------+ + + + + | 03/07/ | Hospital | [facility] | Irving Becerril, | | | 2016 | Encounter | MED CTR LABORATORY | DO [address] | | | | | [address] [facility] | [address] [place], [place] | | | | | [place], [place] | [address] | | | | | [address] | | | | | | [phone] | | | +--------+ + + + [...]
--- OUTSIDE RECORDS SUMMARY | ~2019-10-27 | XMS | Encounter Summary ---
Demographics + + + | Address | [address] | | | [place] [address] | + + + | Home Phone [...] [place], | | | | | [place] [address] | | + + + + + | Kellen Briones | ECON | [place], [place] | | | | | [address] | | + + + + + Care Team Providers + +------+ + | Care Health Education Director Name | Role | Phone | [...] + + | 03/19/ | Telephone | [facility] | Tk Ann | Appointment | | 2012 | | PHYSIATRY [address] | [address] | | | | [address] | [address] [place], [place] | | | | | [place], [place] | [address] | | | | | [address] | | | | | | [phone] | | | +--------+ + + + [...]
--- OUTSIDE RECORDS SUMMARY | ~2019-10-27 | XMS | Encounter Summary ---
Demographics + + + | Address | [address] | | | [place] [address] | + + + | Home Phone [...] [place], | | | | | [place] [address] | | + + + + + | Kellen Briones | ECON | [place], [place] | | | | | [address] | | + + + + + Care Team Providers + +------+ + | Care Coal Or Ore Controller Name | Role | Phone | + +------+ + | Barb Marte | PCP | | + +------+ + Reason for Visit + + + | Reason | Comments | + + + | Follow-up | Back Pain | + + + Encounter Details +--------+---------+ + + + | Date | Type | Department | Care Team | Description | +--------+---------+ + + + | 08/19/ | Office | [facility] | Mono Diaz, | Lumbar radiculopathy | | 2019 | Visit | PHYSIATRY [address] | PA-C [address] | (Primary Dx) | | | | [address] | [address] [facility] | | | | | [place], [place] | [place] [address] | | | | | [address] | [phone] | | | | | [phone] | | | +--------+---------+ + + + [...] + + + | Blood Pressure | 104/51 | 08/19/2018 3:25 PM | | | | | PDT | | + + + + + | Pulse | 87 | 08/19/2018 3:25 PM | | | | | PDT [...] Weight | 64 kg (141 lb) | 08/19/2018 3:25 PM | | | | | PDT | | + + + + + | Height | 160 cm (5' 3") | 08/19/2018 3:25 PM | | | | | PDT | | + + + + + | Body Mass Index | 24.98 | 08/19/2018 3:25 PM | | | | | PDT | | + + + + + documented in this encounter Patient Instructions Patient Instructions Mono Diaz PA-C - 08/19/2018 3:45 PM PDT Repeat injections ordered today. Unfortunately, due to new Medicare rules we cannot per form these 2-level injections together at the same time. You will have one level of injecti ons performed first and then if necessary, about a month later have the second round of inje ctions performed. Follow up in 3 months for reassessment and possible repeat injection order. Cut baclofen in half as needed. Possible Causes of Low Back or Leg Pain BIG: The symptoms in your back or leg may be due to pressure on a nerve. This pressure may be caused by a damaged disk or by abnormal bone growth. Either way, you may feel pain, burni ng, tingling, or numbness. If you have pressure on a nerve that connects to the sciatic nerv e, pain may shoot down your leg. Pressure from [...] press against a nerve. Date Last Reviewed: 08/01/201719995833-8244 [employer]. [address] [place] [address], [place] [address]. All righ ts reserved. This information is not intended as a substitute for professional medical care. Always follow your healthcare professional's instructions. documented in this encounter Progress Notes Mono Diaz PA-C - 08/19/2018 3:40 PM PDTFormatting of this note might be different fro m the original. CHIEF COMPLAINT: Chief Complaint Patient presents with Follow-up Back Pain HISTORY OF PRESENT ILLNESS: Clementine Winchester is a 78 y.o. female being seen today in follow-up for complaints of low ba ck pain. The patient has been seen for this complaint in the past. Previously it was oscar mmended that patient have a bilateral L4-5 and L5-S1 TF BAUTISTA. Patient reports approximately 7 5% relief since receiving injection on date: 05/12/18. Patient reports that since injection they have improved functionality. Patient reports that since injection they have decreased u se of medication for pain/radicular symptoms. She is currently only taking 200mg of gabapentin per day and Cymbalta 30mg for neuropathic pain and depression. Is also taking 10 mg of baclofen couple times per day as needed. She is also wondering if she can cut the baclofen and half as she feels 10 mg is too much. Her recent Lumbar MRI shows significant bilateral foraminal stenosis and moderate to severe cent ral canal stenosis from L3-L5. The patient reports overall her symptoms are worsening. She rates the pain as 7 on scale of 1-10. She describes the pain as a sharp, achy, tingling sensation to her low back and an aching pain into both legs L>R, sharp at times. Her symptoms worsen with standing and prol onged walking. Her symptoms improve with lying down, sitting down, use of walker, and medic ation use. She ambulates with a walker at all times. The patient does not describe numbness of the bilateral lower extremities. She does report weakness of the bilateral lower extre mities. She does not have bowel and bladder dysfunction. She does not have saddle anesthe loco. Treatments for these complaints have included prior steroid injections, physical therapy, c hiropractics therapy and narcotic medications use; she currently uses [place], Flexeril and ga bapentin. Patient's medications, allergies, [...] tablet Take 40 mg by mouth nightly. baclofen (LIORESAL) 10 mg tablet TK 1 T PO TID PRN P 0 benzonatate (TESSALON) 200 MG capsule Take 200 mg by mouth 3 times daily as needed. DULoxetine (CYMBALTA) [address] capsule TK [...] rashes. HEMATOLOGIC/LYMPHATIC: No abnormal bleeding PHYSICAL EXAMINATION: There were no vitals filed for this visit. Body mass index is 24.98 kg/m. GENERAL: [...] andrea ting showed 4+/5 strength throughout the RIGHT lower extremity and 4/5 on the left leg. The patient was unable to heel and toe walk. There was no redness, effusion, warmth or joint li ne tenderness in the knees or ankles. RADIOGRAPHIC [...] PT (multiple sessions over the years) and manager of care. Unfortunately Clementine Winchester continues to have significant discomfort. It appears to me that the pain is primari ly coming from L5/S1 lumbar nerve root impingement as appreciated on recent MRI. I did feel that Clementine Winchester would be a good candidate for a repeat bilateral L5/S1 TFESI and then 3-4 weeks after perform a bilateral L4/5 TFESI. 5) Patient will follow up with me 3 months post injection to discuss any imaging and/or pro elvira with today's treatment plan. 6) If current treatment plan is insufficient for symptom relief we could try neurosurgery r eferral as the next therapy option. I spent 30 minutes in visit with Clementine Winchester today with the majority of time spent cou nselling the patient on her diagnosis, options for her care, and coordinating her care. ELECTRONICALLY SIGNED BY: Mono Diaz PA-C, 08/19/18 documented in this e ncounter Plan of [...] | | | + +---------+ + + FL BAUTISTA Lumbar Transforaminal (08/21/2018 2:33 PM PDT) + + | Specimen | + + | | + + + + -+ | Narrative | Performed At | + + -+ | 08/21/2018 | [facility] | | Bilateral Transforaminal [...]
--- OUTSIDE RECORDS SUMMARY | ~2019-10-27 | XMS | Encounter Summary ---
Demographics + + + | Address | [address] | | | [place] [address] | + + + | Home Phone [...] [place], | | | | | [place] [address] | | + + + + + | Kellen Briones | ECON | [place], [place] | | | | | [address] | | + + + + + Care Team Providers + +------+ + | Care Director Clinical Research Name | Role | Phone | + +------+ + | Anna De Guzman PA-C | PCP | | + +------+ + Reason for Visit + + + | Reason | Comments | + + + | Back Pain | Low back pain that radiates down the right leg | + + + | Neck Pain [...] | Medicine and | Cervical | Ramon Steinberg, | Tk Monreal MD | | | Required | Rehabilitatio | stenosis of | [address] | | | | n | spinal canal | [address] | [address] [place] | | | | | | [place], | [place], [place] | | | | | Spondylolist | [place] [address] | [address] Phone: | | | | | hesis of | Phone: | [phone] | | | | | cervical | [phone] | Fax: | | | | | region | [phone] Fax: | [phone] | | | | | Right hip | | | | | | | pain | [phone] | | | | | | Trochanteric [...] Description | +--------+---------+ + + + | 07/23/ | Office | [facility] | Tk Ann | Lumbar radiculopathy | | 2012 | Visit | PHYSIATRY [address] | T, [address] | (Primary Dx); DDD | | | | [address] | [place] | (degenerative disc | | | | [place] | [address] | disease), lumbar; | | | | [address] | | Spondylolisthesis of | | | | [phone] | | lumbar region; | | | | | | Spinal stenosis of | | | | | | lumbar region with | | | | | | zozgmsrovbsgw-Z5-G8 | | | | | | level moderately | | | | | | severe; Facet | | | | | | arthritis of lumbar | | | | | | region-Most severe | | | | | | at L4-L5,L5-S1; | | | | | | Syncope and | | | | | | collapse; | | | | | | Trochanteric | | | | | | bursitis of right | | | | | | hip | +--------+---------+ + + + Social History [...] + + + | Blood Pressure | 148/111 | 07/23/2012 10:35 AM | | | | | PST | | + + + + + | Pulse | 38 | 07/23/2012 10:35 AM | | | | | PST [...] + + + + | Weight | 72.6 kg (160 lb) | 07/23/2012 10:35 AM | | | | | PST | | + + + + + | Height | 160 cm (5' 3") | 07/23/2012 10:35 AM | | | | | PST | | + + + + + | Body Mass Index | 28.34 | 07/23/2012 10:35 AM | | | | | PST | | + + + + + documented in this encounter Patient Instructions Patient Instructions Britney Cortes - 07/23/2012 11:07 AM PSTFollow[facility] hirty minutes before your scheduled procedure to allow [...] our off ice. Please also provide a armored car driver to take you home on the day of the procedure. documented in this encounter Progress Notes Tk Ann MD - 07/23/2012 10:42 AM PST Subjective: Patient ID: Clementine Winchester is a 72 y.o. female. Chief Complaint Patient presents with Back Pain Low back pain that radiates down the right leg Neck Pain HPI The patient is being seen today at the request of Anna Draper PA-C for complaints of low back pain that radiates into the right leg. The patient also has a separate complaint o f neck pain that radiates into the right shoulder. The patient's symptoms began two years ag o when she slipped getting out of the shower. She describes her symptoms as sharp, burning a nd aching. Her symptoms have been constant. Her symptoms worsen with standing, walking. Her symptoms improve with the use of medications and when sitting. She denies numbness. She desc ribes weakness in the legs which have caused her to have a couple falls. [...] increased pain from the physical therapist. She has been having issues with syncope and brief episodes of decreased awareness and near syncope. This was actually observed twice today in the office. MRI of the lumbar spine was reviewed today in detail with the patient. Past Medical History Diagnosis Date Coronary artery disease Diabetes mellitus Hypertension Stroke Syncope and collapse Cancer Breast Hyperlipidemia [place] (myocardial infarction) GERD (gastroesophageal reflux disease) Asthma Arthritis Past Surgical History Procedure Date Coronary artery bypass graft 2009 Hysterectomy, total abdominal 1987 Family History Problem Relation Age of Onset Alcohol abuse Father Migraines Daughter Migraines Son Seizures Son Cancer Mother Heart disease Mother Hypertension Mother Hypertension Daughter Hypertension Son Arthritis Mother Arthritis Daughter History Social History Marital Status: Spouse Name: N/A Number of Children: N/A Years of Education: N/A Social History Main Topics Smoking status: Never Smoker Smokeless tobacco: Never Used Alcohol Use: Yes occasionally Drug Use: No Sexually Active: None Other Topics Concern None Social History Narrative None Current Outpatient Prescriptions Medication Sig Dispense Refill gabapentin (NEURONTIN) 300 mg capsule Take 300 mg by mouth 3 times daily. metoprolol succinate (TOPROL-XL) 50 mg 24 hr tablet Take 50 mg by mouth Daily. baclofen (LIORESAL) 10 mg tablet Take 10 mg by mouth 3 times daily. metFORMIN [...] tongue every 5 minute s as needed. No Known Allergies Review of Systems Constitutional: Positive for chills. Negative for fever, activity change and unexpected shiva ght change. HENT: Negative for hearing loss, trouble swallowing, neck pain and neck stiffness. Respiratory: Positive for cough and chest tightness. Negative for shortness of breath and w heezing. Cardiovascular: Negative for chest pain, palpitations and leg swelling. Gastrointestinal: Positive for vomiting. Negative for nausea. Genitourinary: Negative for difficulty urinating. Musculoskeletal: Positive for back pain. Negative for arthralgias. Neurological: Negative for dizziness, speech difficulty, weakness and numbness. Psychiatric/Behavioral: Positive for disturbed wake/sleep cycle and dysphoric mood. The pat ient is not nervous/anxious. All other systems reviewed and are negative. Objective: Physical Exam Nursing note and vitals reviewed. Constitutional: She is oriented to person, place, [...] 4. Spinal stenosis of lumbar region with mhdejlewodvfw-J8-U4 level moderately severe 5. Facet arthritis of lumbar region-Most severe at L4-L5,L5-S1 6. Syncope and collapse 7. Trochanteric bursitis of right hip 8. The patient does also have neck issues which were not discussed today as we did focus o n the low back and legs. She has previously seen Dr. Real for the neck issues. I woul d be happy to address those issues at a future visit. Plan: 1. The patient has tried conservative care including PT, chiropractic and medications but continues to have significant pain. I do feel that the patient would benefit from intervent ional procedures. I would offer bilateral L5-S1 TFESI injection. 2. I would also consider a right trochanteric bursa injection in the future as this does ap pear to be an area of significant discomfort as well. 3. She has been having issues with syncope and brief episodes of decreased awareness and ne ar syncope. This was actually observed twice today in the office. I recommended that clara monreal go see Dr. Patrick Gaffney for these issues. This may be atypical seizure activity or possibly a cardiovascular issue. Reportedly she has already seen a distribution center manager and nothing abnormal w as found. She did also see a different neurologist but she did not have a good experience. 4. The patient is already on multiple medications for pain. I did not make any changes in her medications today. documented in this encounter Plan of Treatment [...] | Spinal stenosis of lumbar region with trmgotnwtmdzb-G8-J4 level moderately severe | | Spinal stenosis, lumbar region, without neurogenic claudication | + + | Facet arthritis of lumbar region-Most severe at L4-L5,L5-S1 Lumbosacral spondylosis | | without myelopathy | + + | Syncope and collapse | + + | Trochanteric bursitis of right hip Enthesopathy of hip region | + + documented in this encounter
--- OUTSIDE RECORDS SUMMARY | ~2019-10-27 | XMS | Encounter Summary ---
Demographics + + + | Address | [address] | | | [place] [address] | + + + | Home Phone [...] [place], | | | | | [place] [address] | | + + + + + | Kellen Briones | ECON | [place], [place] | | | | | [address] | | + + + + + Care Team Providers + +------+ + | Care Software Asset Management Analyst Name | Role | Phone [...] [address] | [address] [place], [place] | (Primary Dx); | | | | [place], [place] | [address] | Cerebrovascular | | | | [address] | | accident (CVA), | | | | [phone] | | unspecified | | | | [...] involving | | | | | | [place] coronary | | | | | | artery of [place] | | | | | | heart [...] with | | | | | | kzdhotlsrhfau-U5-S3 | | | | | | level [...] filedocumented as of this encounter Results XR Chest [...] + | [facility] | [address] | [place] | [phone] | | [facility] | | [address] | | | - IMAGING | | [...] | | | | mmol/L | [facility] | | | | [...] | | | | | mg/dL | [facility] | | | | | | MEDICAL | | | | | | CENTER - | | | | | | LABORATORY | | + + + + + + | eGFR if not | 57 (L)Comment: | >=60 | [facility] | | | | GLOMERULAR FILTRATION | mL/min/1.73m2 | [facility] | | | [facility] | RATE,ESTIMATED | | MEDICAL | | | | mL/min/1.89j4Lgve than | | CENTER - | | [...] ST. | [address] | [place], [place] | [phone] | | [facility] | | [address] | | | - LABORATORY | | [...] [address] | [place] | [phone] | | [facility] | | [address] | | | - LABORATORY | | [...] + | [facility] | [address] | [place] | [phone] | | [facility] | | [address] | | | - LABORATORY | | [...] | | | | | g/dL | [facility] | | | | [...] [facility] | | | | | | [facility] | | | | | | [facility]ICAL | | | | | | CENTER - | | | | | | LABORATORY | | + +-------+ + + + | % | 2.3 | 0.0 - 5.0 % | [facility] | | | Eosinophils | | | [facility] | | | | | | MEDICAL | | | | | | CENTER - | | | | | | LABORATORY | | + +-------+ + + + | % Basophils | 0.6 | 0.0 - 1.0 % | [facility] | | | | | | [facility] | | | | | | [facility]ICAL | | | | | | CENTER - | | | | | | LABORATORY | | + +-------+ + + + | Absolute | 5.20 | 1.80 - 8.50 | [facility] | | | Neutrophils | | K/uL | [facility] | | | | | | MEDICAL | | | | | | CENTER - | | | | | | LABORATORY | | + +-------+ + + + | Absolute | 2.40 | 0.60 - 3.20 | [facility] | | | Lymphocytes | | K/uL | [facility] | | | | | | MEDICAL | | | | | | CENTER - | | | | | | LABORATORY | | + +-------+ + + + | Absolute | 0.70 | 0.00 - 1.00 | [facility] | | | Monocytes | | K/uL | [facility] | | | | | | MEDICAL | | | | | | CENTER - | | | | | | LABORATORY | | + +-------+ + + + | Absolute | 0.20 | 0.00 - 0.40 | [facility] | | | Eosinophils | | K/uL | [facility] | | | | | | MEDICAL | | | | | | CENTER - | | | | | | LABORATORY | | + +-------+ + + + | Absolute | 0.10 | 0.00 - 0.10 | [facility] | | | Basophils | | K/uL | [facility] | | | | | | [...] | [facility] [facility] | [address] | [place] | [phone] | | [facility] | | [address] | | | - LABORATORY | | [...] | | | | CYNTHIA KIRBY MD ([id number]) | | | | | | on [...] + | Stroke of unknown etiology (HCC) - Primary Unspecified cerebral artery occlusion with | | cerebral infarction | + + | Cerebrovascular accident [...] + + | Coronary artery disease involving [place] coronary artery of [place] heart without | | angina pectoris | [...] | Spinal stenosis of lumbar region with gfmjnzcyskrwm-M7-N3 level moderately severe | | Spinal stenosis, [...]
--- OUTSIDE RECORDS SUMMARY | ~2019-10-27 | XMS | Encounter Summary ---
Demographics + + + | Address | [address] | | | [place] [address] | + + + | Home Phone [...] [place], | | | | | [place] [address] | | + + + + + | Kellen Briones | ECON | [place] | | | | | [address] | | + + + + + Care Team Providers + +------+ + | Care Manager Of Housekeeping Name | Role | Phone | + +------+ + | Barb Marte | THANG | | + +------+ + Encounter Details +--------+ + + + + | Date | Type | Department | Care Team | Description | +--------+ + + + + | 07/08/ | Preadmit | [facility] | Monster White MD | Preop testing | | 2019 | Visit | CENTER [facility] | [address] | (Primary Dx); 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[place], [place]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 | | | | [address] [place], [place] | [address] | without complication | | | | [address] | | ([facility]); Lumbar | | | | [phone] | | degenerative disc | | | [...] for the 07/08/19 encounter (Preadmit Visit) with [facility] 2 Medication Sig Instructions albuterol (VENTOLIN [...] lots of fluids and take an o eub-far-muylogh stool softener (with or without laxatives) if [...] [facility] [address] [place] [phone] documented in this encounter Plan of Treatment [...] | | | | PST | complication ([facility]) | results section. | | | [...] | | | | PST | complication ([facility]) | results section. | | | [...] | | | | PST | complication ([facility]) | results section. | | | [...] | | | | PST | complication ([facility]) | results section. | | | [...] | | | | PST | complication ([facility]) | results section. | | | [...] [facility] | | | | performed at [facility];[address] | | LABORATORY | | | | [address];[place], [place] | | | | | | [address] | | | | + + + [...] [facility] | [address] | [place] [address] | [phone] | + + + + + Type [...] Antibody | Testing performed at | | [facility] | | | Screen | [facility];[address] | | LABORATORY | | | | [address];[place] [address] | | | | + + + + + + + + | Specimen | + + | Blood | + + + + + + + | Performing | Address | City/State/Zipcode | Phone Number | | Organization | | | | + + + + + | [facility] | [address] | [place] [address] | [phone] | + + + + + CBC [...] | | | Absolute | performed at [facility], [address] | K[address]uL | LABORATORY | | | | [place], | | | | | | [place] [address] | | | | + + + + + + + + | Specimen | + + | Blood | + + + + + + + | Performing | Address | City/State/Zipcode | Phone Number | | Organization | | | | + + + + + | [facility] | [address] | [place] [address] | [phone] | + + + + + Comprehensive [...] 27 (L)Comment: GFR <60: | >60 | [facility] | | | GFR | CHRONIC KIDNEY [...] | | | | | performed at [facility], [address] | | | | | | [facility], | | | | | | [place] [address] | | | | + + + + + + + + | Specimen | + + | Blood | + + + + + + + | Performing | Address | City/State/Zipcode | Phone Number | | Organization | | | | + + + + + | [facility] | [address] | [place] [address] | [phone] | + + + + + Protime INR (07/08/2019 4:39 PM PST) + + + + + + | Component | Value | Ref Range | Performed | Pathologist | | | | | At | Signature | + + + + + + | INR | 1.0Comment: REFERENCE | | [facility] | | | | RANGE:0.9 - 1.2 [...] | | | | | performed at [facility];[address] | | | | | | [address] [facility];[place], [place] | | | | | | [address] | | | | + + + + + + + + | Specimen | + + | Blood | + + + + + + + | Performing | Address | City/State/Zipcode | Phone Number | | Organization | | | | + + + + + | [facility] | [address] | [place] [address] | [phone] | + + + + + PTT (07/08/2019 4:39 PM PST) + + + + + + | Component | Value | Ref Range | Performed | Pathologist | | | | | At | Signature | + + + + + + | PTT | 30Comment: Testing | 23 - 32 seconds | [facility] | | | | performed at [facility];[address] | | LABORATORY | | | | [address];[place], [place] | | | | | | [address] | | | | + + + + + + + + | Specimen | + + | Blood | + + + + + + + | Performing | Address | City/State/Zipcode | Phone Number | | Organization | | | | + + + + + | [facility] | [address] | [place] [address] | [phone] | + + + + + Hemoglobin A1C (07/08/2019 4:39 PM PST) + + + + + + | Component | Value | Ref Range | Performed | Pathologist | | | | | At | Signature | + + + + + + | Hemoglobin | 6.3 (H)Comment: HbA1c | 4.0 - 6.0 % | [facility] | | | A1c | method is [...] | 134Comment: Estimated | <154 mg/dL | [facility] | | | Average | Average Glucose | | LABORATORY | | | Glucose | calculated from | | | | | | hemoglobin A1c by use of | | | | | | the ADArecommended | | | | | | formula.Testing | | | | | | performed at [facility], [address] | | | | | | [facility], | | | | | | [place] [address] | | | | + + + + + + + + | Specimen | + + | Blood | + + + + + + + | Performing | Address | City/State/Zipcode | Phone Number | | Organization | | | | + + + + + | [facility] | [address] | [place] [address] | [phone] | + + + + + XR [...]
--- OUTSIDE RECORDS SUMMARY | ~2019-10-27 | XMS | Encounter Summary ---
Demographics + + + | Address | [address] | | | [place] [address] | + + + | Home Phone [...] [place], | | | | | [place] [address] | | + + + + + | Kellen Briones | ECON | [place], [place] | | | | | [address] | | + + + + + Care Team Providers + +------+ + | Care Merchandise Adjustment Clerk Name | Role | Phone | [...] + + | 03/19/ | Telephone | [facility] | Tk Ann | Appointment | | 2012 | | PHYSIATRY [address] | TMD [address] | | | | [address] | [address] [place], [place] | | | | | [place], [place] | [address] | | | | | [address] | | | | | | [phone] | | | +--------+ + + + [...]
--- OUTSIDE RECORDS SUMMARY | ~2019-10-27 | XMS | Encounter Summary ---
Demographics + + + | Address | [address] | | | [place] [address] | + + + | Home Phone | | + + + | Preferred Language | Unknown | + + + | Marital Status | | + + + | Mosque Affiliation | 1041 | + + + | Race | Unknown | + + + | Ethnic Group | Unknown | + + + Author + + + | Author | [facility] | | | and [place] | + + + | Organization | [facility] | | | and [place] | + + + | Address | Unknown | + + + | Phone | Unavailable | + + + Support + + + + + | Name | Relationship | Address | Phone | + + + + + | Lucy Winchester | ECON | [place], | | | | | [place] [address] | | + + + + + | Kellen Briones | ECON | [place], [place] | | | | | [address] | | + + + + + Care Team Providers + +------+ + | Care Oxygraph Operator Name | Role | Phone | [...] pain, | MD [address] | | | | | bilateral | [address] | Street [place] | | | | | Procedures | [place], | [place], [place] | | | | | MRI Lumbar | [place] [address] | [address] | | | | | Spine wo | Phone: | Phone: | | | | | Contrast | [phone] | [phone] | | | | | | [phone] Fax: | Fax: | | | | | | | [phone] | | | | | | [phone] | | +--------+--------+ + + + + [...] | | | | | etiology | [address] | [address] | | | | | ([facility]) | RHYS JOINER, | [address] | | | | | | [place] [address] | [place] | | | | | | Phone: | [phone] Phone: | | | | | | [phone] | [phone] | | | | | | [phone] Fax: | Fax: | | | | | | | [phone] | | | | | | [phone] | | +--------+ + + + + [...] | | n | spinal canal | [address] | [address] [place] | | | | | | [place], | [place], [place] | | | | | Spondylolist | [place] [address] | [address] Phone: | | | | | hesis of | Phone: | [phone] | | | | | cervical | [phone] | Fax: | | | | | region | [phone] Fax: | [phone] | | | | | Right hip | | | | | | | pain | [phone] | | | | | | Trochanteric [...] + + | 06/04/ | Office | [facility] | Ramon Real | Cervical stenosis of | | 2012 | Visit | NEUROSURGERY [address] | MD Idris [address] | spinal canal | | | | [address] | St [place], [place] | (Primary Dx); | | | | [place], [place] | [address] | Spondylolisthesis of | | | | [address] | [phone] | cervical region; | | | | [phone] | | Right hip pain; | | [...] priscilla alicea we obtain the studies from [facility] documented in this encounter Progress Notes Ramon Real MD - 06/04/2012 3:46 PM PSTFormatting of this note might be differen t from the original. Ramon eRal MD [address] [facility] [address] [place], [place] [address] FAX: NEUROSURGERY HISTORY AND PHYSICAL EXAMINATION CHIEF [...] evaluati on in the emergency department at [facility]. Apparently a CT scan not available to [...] Stroke Syncope and collapse Cancer Breast Hyperlipidemia [place] (myocardial infarction) GERD (gastroesophageal reflux disease) Asthma [...] Intrinsics 5 5 Ulnar Intrinsics 5 5 Hydroelectric Station Chief Strength 4 (35#) 4+ (40#) Hip Flexion [...] Hypertension Stroke Syncope and collapse Cancer Hyperlipidemia [place] (myocardial infarction) GERD (gastroesophageal reflux disease) Asthma GENERAL DIAGNOSES: Past Medical History Diagnosis Date Coronary artery disease Diabetes mellitus Hypertension Stroke Syncope and collapse Cancer Breast Hyperlipidemia [place] (myocardial infarction) GERD (gastroesophageal reflux disease) Asthma [...] imagi ng studies which were obtained at [facility] to facilitate that. Once we have his [...]
--- OUTSIDE RECORDS SUMMARY | ~2019-10-27 | XMS | Encounter Summary ---
Demographics + + + | Address | [address] | | | [place] [address] | + + + | Home Phone [...] [place], | | | | | [place] [address] | | + + + + + | Kellen Briones | ECON | [place], [place] | | | | | [address] | | + + + + + Care Team Providers + +------+ + | Care Suede Cleaner Name | Role | Phone | [...] + + | 05/07/ | Telephone | [facility] [place] | Irving Becerril, | Paperwork | | 2016 | | NEUROSURGERY [address] | DO [address] | | | | | [address] | [address] [place], [place] | | | | | [place], [place] | [id number] | | | | | [address] | | | | | | [phone] | | | +--------+ + + + [...]
--- OUTSIDE RECORDS SUMMARY | ~2019-10-27 | XMS | Encounter Summary ---
Demographics + + + | Address | [address] | | | [place] [address] | + + + | Home Phone [...] [place], | | | | | [place] [address] | | + + + + + | Kellen Briones | ECON | [place] | | | | | [address] | | + + + + + Care Team Providers + +------+ + | Care Chief Executive Officer Name | Role | Phone | + +------+ + | Barb Marte | THANG | | + +------+ + Encounter Details +--------+ + + + + | Date | Type | Department | Care Team | Description | +--------+ + + + + | 06/19/ | Prep for | [facility] | Cat [place] | Type 1 diabetes | | 2020 | Procedure | [facility] | [address] | mellitus without | | | | ORTHOPEDIC SPINE | [address] | complication (HCC) | | | | [address] | [place] [address] | (Primary Dx); Lumbar | | | | [place], [place] | [phone] | degenerative disc | | | | [address] | | disease; | | | | [phone] | | Spondylolisthesis of | | | [...] [facility] | | | | performed at [facility] | | LABORATORY | | | | [address];[place], [place] | | | | | | [address] | | | | + + + + + + + + | Specimen | + + | Tissue - Both | | anterior nares (body | | structure) | + + + + + + + | Performing | Address | City/State/Zipcode | Phone Number | | Organization | | | | + + + + + | [facility] | [address] | [place] [address] | [phone] | + + + + + Type [...] | [facility] | | | Screen | [facility];[address] | | LABORATORY | | | | [address];[place] [address] | | | | + + + + + + + + | Specimen | + + | Blood | + + + + + + + | Performing | Address | City/State/Zipcode | Phone Number | | Organization | | | | + + + + + | [facility] | [address] | [place] [address] | [phone] | + + + + + Hemoglobin A1C (07/08/2019 4:39 PM PST) + + + + + + | Component | Value | Ref Range | Performed | Pathologist | | | | | At | Signature | + + + + + + | Hemoglobin | 6.3 (H)Comment: HbA1c | 4.0 - 6.0 % | [facility] | | | A1c | [...] | 134Comment: Estimated | <154 mg/dL | [facility] | | | Average | [...] W | | | | | | [facility], | | | | | | [place] [address] | | | | + + + + + + + + | Specimen | + + | Blood | + + + + + + + | Performing | Address | City/State/Zipcode | Phone Number | | Organization | | | | + + + + + | [facility] | [address] | [place] [address] | [phone] | + + + + + PTT (07/08/2019 4:39 PM PST) + + + + + + | Component | Value | Ref Range | Performed | Pathologist | | | | | At | Signature | + + + + + + | PTT | 30Comment: Testing | 23 - 32 seconds | [facility] | | | | performed at [facility];[address] | | LABORATORY | | | | [address];[place], [place] | | | | | | [address] | | | | + + + + + + + + | Specimen | + + | Blood | + + + + + + + | Performing | Address | City/State/Zipcode | Phone Number | | Organization | | | | + + + + + | [facility] | [address] | [place] [address] | [phone] | + + + + + Protime INR (07/08/2019 4:39 PM PST) + + + + + + | Component | Value | Ref Range | Performed | Pathologist | | | | | At | Signature | + + + + + + | INR | 1.0Comment: REFERENCE | | [facility] | | | | RANGE:0.9 [...] | | | | | performed at [facility];[address] | | | | | | [address];[place] | | | | | | [address] | | | | + + + + + + + + | Specimen | + + | Blood | + + + + + + + | Performing | Address | City/State/Zipcode | Phone Number | | Organization | | | | + + + + + | [facility] | [address] [facility] | [place] [address] | [phone] | + + + + + Comprehensive [...] 27 (L)Comment: GFR <60: | >60 | [facility] | | | GFR | [...] W | | | | | | [facility], | | | | | | [place] [address] | | | | + + + + + + + + | Specimen | + + | Blood | + + + + + + + | Performing | Address | City/State/Zipcode | Phone Number | | Organization | | | | + + + + + | [facility] | [address] | [place] [address] | [phone] | + + + + + CBC [...] | | | | | [place] [address] | | | | + + + + + + + + | Specimen | + + | Blood | + + + + + + + | Performing | Address | City/State/Zipcode | Phone Number | | Organization | | | | + + + + + | [facility] | [address] | [place] [address] | [phone] | + + + + + documented [...]
--- OUTSIDE RECORDS SUMMARY | ~2019-10-27 | XMS | Encounter Summary ---
Demographics + + + | Address | [address] | | | [place] [address] | + + + | Home Phone [...] [place], | | | | | [place] [address] | | + + + + + | Kellen Briones | ECON | [place], [place] | | | | | [address] | | + + + + + Care Team Providers + +------+ + | Care Business Banking Relationship Manager Name | Role | Phone | [...] | 05/09/ | Refill | [facility] | Chavo Jacob, | Medication Refill | | 2015 | | NEUROSURGERY [address] | PA-C [address] | | | | | [address] | [address] [facility] | | | | | [place], [place] | [place] [address] | | | | | [address] | [phone] | | | | | [phone] | | | +--------+--------+ + + + [...]
--- OUTSIDE RECORDS SUMMARY | ~2019-10-27 | XMS | Encounter Summary ---
Demographics + + + | Address | [address] | | | [place] [address] | + + + | Home Phone [...] [place], | | | | | [place] [address] | | + + + + + | Kellen Briones | ECON | [place], [place] | | | | | [address] | | + + + + + [...] | | | [place], [place] | [address] | cervical region; DDD | | | | [address] | | (degenerative disc | | | | [phone] | | disease), cervical; | | | | | | Lumbar | | | | | | radiculopathy; DDD | | | | | | (degenerative disc | | | | | | disease), lumbar; | | | | | | Spinal stenosis of | | | | | | lumbar region with | | | | | | gxwzjkfpoidbe-N5-P0 | | | | | | level [...] of the procedure you must provide a over the road driver to take you home. For all [...] She did also receive epidural injections with wv on two occasions. The most recent were [...] 8. Spinal stenosis of lumbar region with jucyalxvbcqap-W1-L6 level moderately severe 9. Facet arthritis of [...] extension x-rays of the lumbar spine at [facility]. I previously requested that these be [...] to the fluoroscopy suite for fluoroscopically-guided | [facility] | | bilateral L5-S1 transforaminal epidural steroid [...] | + + + + + | [facility] | [address] | [place] | [phone] | | [facility] | | [address] | | | - IMAGING | | | | + + + + + FL Facet Injection Cervical (09/24/2013 2:09 PM PDT) + + | Specimen | + + | | + + + + + | Narrative | Performed At | + + + | 09/24/13 Cervical Facet Steroid Injections Diagnosis: | [facility] | | Cervical Spondylosis ICD-9 Code 721.0 Ms. Clementine Winchester | [facility] | | presents to the fluoroscopy suite for fluoroscopically-guided C4-C5, [facility] | | C5-C6 and C6-C7 facet injections [...] ST. | [address] 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
--- OUTSIDE RECORDS SUMMARY | ~2019-10-27 | XMS | Encounter Summary ---
Demographics + + + | Address | [address] | | | [place] [address] | + + + | Home Phone [...] [place], | | | | | [place] [address] | | + + + + + | Kellen Briones | ECON | [place], [place] | | | | | [address] | | + + + + + Care Team Providers + +------+ + | Care Water Engineer Name | Role | Phone | [...] + + | 10/02/ | Telephone | [facility] | Irving Becerril, | Imaging Only ([address] | | 2016 | | NEUROSURGERY [address] | DO [address] | xray ) | | | | [address] | [address] [place], [place] | | | | | [place], [place] | [id number] | | | | | [address] | | | | | | [phone] | | | +--------+ + + + [...]
--- OUTSIDE RECORDS SUMMARY | ~2019-10-27 | XMS | Encounter Summary ---
Demographics + + + | Address | [address] | | | [place] [address] | + + + | Home Phone [...] [place], | | | | | [place] [address] | | + + + + + | Kellen Briones | ECON | [place], [place] | | | | | [address] | | + + + + + Care Team Providers + +------+ + | Care Card Maker Name | Role | Phone | [...] + + | 04/13/ | Telephone | [facility] | Irving Becerril, | Other (Return to | | 2015 | | NEUROSURGERY [address] | DO [address] | work ) | | | | [address] [facility] [address] | [address] [place], [place] | | | | | [place], [place] | [id number] | | | | | [address] | | | | | | [phone] | | | +--------+ + + + [...]
--- OUTSIDE RECORDS SUMMARY | ~2019-10-27 | XMS | Encounter Summary ---
Demographics + + + | Address | [address] | | | [place] [address] | + + + | Home Phone [...] [place], | | | | | [place] [address] | | + + + + + | Kellen Briones | ECON | [place] | | | | | [address] | | + + + + + Care Team Providers + +------+ + | Care Toll Bridge Attendant Name | Role | Phone | + +------+ + | Barb Marte | THANG | | + +------+ + Encounter Details +--------+ + + + + | Date | Type | Department | Care Team | Description | +--------+ + + + + | 07/08/ | Hospital | [facility] | Monster White MD | Preop testing | | 2020 | Encounter | [facility] | [address] | | | | | ELECTRODIAGNOSTICS | [address] [place], [place] | | | | | [address] | [address] | | | | | [place], [place] | | | | | | [address] | | | | | | [phone] | | | +--------+ + + + [...] +---------+ + + | aspirin 81 mg EC | Take 81 mg by mouth | [...] + + + +---------+ + + | Calcium 600-200 | Take 1 tablet by | | 0 | | | | MG-UNIT TABS | mouth Daily. | | | | | + + + +---------+ + + | colchicine 0.6 mg | Take 1 tablet by | 30 | 0 | 07/29/19 | | | tablet | mouth 2 times daily. | tablet | | 20 | | + + + +---------+ + + | cyanocobalamin | Take by mouth | | 0 | | | | (VITAMIN B-12) 100 | Daily. | | | | | | MCG TABS | | | | | | + + + +---------+ + + | docusate sodium | Take 200 mg by mouth | 30 | 0 | 07/25/19 | | | (COLACE) 100 MG | 2 times daily. | capsule | | 20 | | | capsule | | | [...] + + + +---------+ + + | indomethacin | Take 1 capsule by | 60 | 0 | 07/29/19 | | | (INDOCIN) 50 MG | mouth 2 times daily | capsule | | 20 | | | capsule | (with breakfast & | | | | | | | dinner). | | | | | + + [...] + + + +---------+ + + | polyethylene | Take 1 diluted | 14 | 1 | 07/25/19 | | | glycol (MIRALAX) | packet by mouth | packet | | 20 | | | packet | Daily. | | | | | + + + +---------+ + + | potassium chloride | Take 10 mEq by | | 0 | 12/19/19 | | | (KLOR-CON) 10 MEQ | mouth. | | | 19 | 0 | | ER tablet | | | | | | + + + +---------+ + + | senna (SENOKOT) | Take 1 tablet by | 60 | 1 | 07/25/19 | | | 8.6 mg tablet | mouth 2 times daily | tablet | | 20 | | | | (before meals). | | | | | + + + +---------+ + + | UNABLE TO | [id number] [id number] | 1 Units | 0 | 07/07/19 | | | FINDIndications: | | | | 20 | | | Spondylolisthesis of | | | | | | | lumbar region, | | | | | | | Lumbar degenerative | | | | | | | disc disease | | | | | | + + + +---------+ + + | chlorhexidine | Apply to affected | 118 mL | 0 | 06/19/19 | | | (HIBICLENS) 4 % | area the night | | | 20 | 0 | | external | before and the | | | | | | liquidIndications: | morning of surgery. | | | | | | Type 1 diabetes | | | | | | | mellitus without | | | | | | | complication (HCC), | | | | | | | Lumbar degenerative | | | | | | | disc disease, | | | | | | | Spondylolisthesis of | | | | | | | lumbar region | | | | | | + + + +---------+ + + | colchicine 0.6 mg | Take 1 tablet by | 30 | 0 | 07/29/19 | | | tablet | mouth every 8 hours | tablet | | 20 | 0 | | | as needed. | | | | | + + + +---------+ + + | fentaNYL | APPLY 1 PATCH TO THE | | 0 | 02/07/20 | | | (DURAGESIC) 25 | SKIN Q 3 DAYS | | | 18 | 0 | | mcg/hr | | | | | | + + + +---------+ + + | methocarbamol | Take 1 tablet by | 60 | 0 | 07/25/19 | | | (ROBAXIN) 500 mg | mouth 3 times daily | tablet | | 20 | 0 | | tablet | as needed for Muscle | | | | | | | spasms. | | | | | + + + +---------+ + + | oxyCODONE | Take 1 tablet by | 90 | 0 | 07/25/19 | | | (ROXICODONE) 5 mg | mouth every 6 hours | tablet | | 20 | 0 | | tabletIndications: | as needed for Pain. | | | | | | Spondylolisthesis of | | | | | | | lumbar region | | | | | | + [...] | ECG 12 LEAD | Routin | 07/08/2019 | Preop testing | Results for this | | | e | 4:01 PM | | procedure are in the | | | | PST | | results section. | + +--------+ + + + documented in this encounter Results ECG 12 lead (07/08/2019 4:01 PM PST) [...] Diagnosis | + + | Preop testing Preoperative examination, unspecified | + + documented in this encounter"
--- OUTSIDE RECORDS SUMMARY | ~2019-10-27 | XMS | Encounter Summary ---
Demographics + + + | Address | [address] | | | [place] [address] | + + + | Home Phone [...] [place], | | | | | [place] [address] | | + + + + + | Kellen Briones | ECON | [place], [place] | | | | | [address] | | + + + + + Care Team Providers + +------+ + | Care Chemicals Distiller Name | Role | Phone | + +------+ + | Anna De uGzman PA-C | PCP | | + +------+ [...] | | Spinal | PA-C [address] | [place], [place] | | | | | stenosis, | [address] | [address] | | | | | other region | Ave | Phone: | | | | | Procedures | [place], | [phone] | | | | | [place] OFFICE | [place] | Fax: | | | | | CONSULTATION | [address] | [phone] | | | | | NEW/ESTAB | Phone: | | | | | | PATIENT 60 | [phone] | | | | | | MIN | Fax: | | | | | | | [phone] | | +--------+--------+ + + + + Encounter Details +--------+---------+ + + + | Date | Type | Department | Care Team | Description | +--------+---------+ + + + | 11/13/ | Office | [facility] | Gonzalo Mathew MD | Cervical spondylosis | | 2013 | Visit | NEUR[address]URGERY [address] | [address] | with myelopathy | | | | [address] | [place] [address] | (Primary Dx); | | | | [place] | [phone] | Cervical | | | | [address] | | radiculopathy; | | | | [phone] | | Cervical | | | | [...] research this procedure more by going to: [email or web address] Click the Treatment Options link on the left column. Then, look for Anterior Cervical Discectomy and Fusion (ACDF). documented in this encounter Progress Notes Gonzalo Mathew MD - 11/13/2013 11:00 AM PDTFormatting of this note might be different from t he original. Gonzalo Mathew MD [address] [place] [address], [address] [place] [address] FAX: NEUROSURGERY HISTORY AND PHYSICAL EXAMINATION CHIEF [...] Syncope and collapse Cancer (HCC) Breast Hyperlipidemia [place] (myocardial infarction) (HCC) GERD (gastroesophageal reflux disease) Asthma Arthritis Lumbar radiculopathy 07/23/2012 DDD (degenerative disc disease), lumbar 07/23/2012 Spinal stenosis of lumbar region with nnzfdfdgwxbnt-F1-E8 level moderately severe 2012 Facet arthritis of [...] 1989' Mastectomy, radical 1987 Right Breast reconstruction 0770-3104 ABout 10 surgeries Bone spur left foot [...] has no apparent deficits with short or assisted memory. CRANIAL NERVES: II: Acuity is intact. [...] Intrinsics 5 5 Ulnar Intrinsics 5 5 Radio Division Captain Strength 5 5 Hip Flexion 5 5 [...] Syncope and collapse Cancer (HCC) Breast Hyperlipidemia [place] (myocardial infarction) (HCC) GERD (gastroesophageal reflux disease) Asthma Arthritis Lumbar radiculopathy 07/23/2012 DDD (degenerative disc disease), lumbar 07/23/2012 Spinal stenosis of lumbar region with lqetcwxfyiyms-S2-V6 level moderately severe 2012 Facet arthritis of [...]
--- OUTSIDE RECORDS SUMMARY | ~2019-10-27 | XMS | Encounter Summary ---
Demographics + + + | Address | [address] | | | [place] [address] | + + + | Home Phone [...] [place], | | | | | [place] [address] | | + + + + + | Kellen Briones | ECON | [place], [place] | | | | | [address] | | + + + + + Care Team Providers + +------+ + | Care Coal Deliverer Name | Role | Phone | + [...] + | 08/13/ | Office | [facility] | Patrick Gaffney MD [address] | Decreased | | 2012 | Visit | [facility] [place] | [address] | 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 Patrick Schneider MD - 08/13/2012 2:05 PM PDTFormatting of [...] She was evaluated by Dr. Longo at [facility]. 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 MRA of the head and neck was unremarkable for large v essel stenosis or occlusion. She also had EEG which showed mild diffuse slowing of the back ground without epileptiform discharges. She was seen by literacy tutor at [facility]. She reported that she had Holter monitoring [...] Stroke Syncope and collapse Cancer Breast Hyperlipidemia [place] (myocardial infarction) GERD (gastroesophageal reflux disease) Asthma Arthritis Lumbar radiculopathy 07/23/2012 DDD (degenerative disc disease), lumbar 07/23/2012 Spinal stenosis of lumbar region with ukzhwtjodwpau-B6-I6 level moderately severe 2012 Facet arthritis of [...] She did have history of starting multiple TECHNOLOGY ADOPTION MANAGER depressant medications since last February. These ep [...] patient. Please do not hesitate to contact ana paula miguel if you have any questions. Cc: Anna Draper PA-C documented in this encounter Plan of Treatment +------+ +--------+ + + | Name | [...]
--- OUTSIDE RECORDS SUMMARY | ~2019-10-27 | XMS | Encounter Summary ---
Demographics + + + | Address | [address] | | | [place] [address] | + + + | Home Phone | | + + + | Preferred Language | Unknown | + + + | Marital Status | Unknown | + + + | Samaritan Affiliation | Unknown | + + + | Race | Unknown | + + + | Ethnic Group | Unknown | + + + Author + + + | Author | [facility] | + + + | Organization | [facility] | + + + | Address | Unknown | + + + | Phone | Unavailable | + + + Care Team Providers + +------+ + | Care Landfill Attendant Name | Role | Phone | [...] | | | Marleni Viera | Maximiliano Browning | | | | | | Browning | Research | | | | | | Research | [place], [facility] | | | | | | [place], [address] | Floor | | | | | | Floor | [place], [place] | | | | | | [place], [place] | [address] | | | | | | [address] | Phone: | | | | | | Phone: | [phone] | | | | | | [phone] | Fax: | | | | | | Fax: | [phone] | | | | | | [phone] | | +--------+--------+ + + + + Encounter Details +--------+ + + + + | Date | Type | Department | Care Team | Description | +--------+ + + + + | 07/25/ | Outside | Neurophysiology | Anna Draper, | | | 2012 | Referral | EEG at [facility] [address] | [place] | | | | Order | [address] | [facility] [address] | | | | | [facility] | [address] [place], | | | | | [place], [address] | [place] [address] | | | | | [place], [place] | [phone] | | | | | [address] | | | | | | [phone] | | | +--------+ + + + [...] 1940 Medical | | | Record Number: [id number] Date of Test: 07/24/2012 Place of | | | Service: [facility] Department: EEG [facility] - [id number] | | | ROUTINE EEG Indication: evaluate [...] daily Nitrostat 0.4 mg PRN chest pain [place] | | | 7.5/325 mg twice daily [...] was performed at . | | | [facility]. EEG Description Interictal Record: The | [...] | | | MD VIRY. Suggested CPT: 11358 - EEG Routine Awake Only | | | Suggested Dx: 348.30 - Encephalopathy, Unspecified | | + + + documented in this encounter Visit Diagnoses Not on filedocumented in this encounter"
--- OUTSIDE RECORDS SUMMARY | ~2019-10-27 | XMS | Encounter Summary ---
Demographics + + + | Address | [address] | | | [place] [address] | + + + | Home Phone [...] [place], | | | | | [place] [address] | | + + + + + | Kellen Briones | ECON | [place], [place] | | | | | [address] | | + + + + + Care Team Providers + +------+ + | Care Jawbone Puller Name | Role | Phone | + [...] + + | 08/28/ | Telephone | [facility] | Patrick Gaffney MD [address] | Results | | 2012 | | NEUROLOGY PERTH AMBOY | [facility] | | | | | [address] [facility], | [address] [place], | | | | | [address] [address] [place] | [place] [address] | | | | | [place] [address] | [phone] | | | | | [phone] | | | +--------+ + + + [...]
--- OUTSIDE RECORDS SUMMARY | ~2019-10-27 | XMS | Encounter Summary ---
Demographics + + + | Address | [address] | | | [place] [address] | + + + | Home Phone [...] [place], | | | | | [place] [address] | | + + + + + | Kellen Briones | ECON | [place], [place] | | | | | [address] | | + + + + + Care Team Providers + +------+ + | Care Courtroom Clerk Name | Role | Phone | [...] | 05/09/ | Refill | [facility] | Chavo Jacob, | Medication Refill | | 2015 | | NEUROSURGERY [address] | PA-C [address] | | | | | [address] | [address] [facility] | | | | | [place], [place] | [place] [address] | | | | | [address] | [phone] | | | | | [phone] | | | +--------+--------+ + + + [...]
--- OUTSIDE RECORDS SUMMARY | ~2019-10-27 | XMS | Encounter Summary ---
Demographics + + + | Address | [address] | | | [place] [address] | + + + | Home Phone [...] [place], | | | | | [place] [address] | | + + + + + | Kellen Briones | ECON | [place] | | | | | [address] | | + + + + + Care Team Providers + +------+ + | Care Tromper Name | Role | Phone | + +------+ + | Barb Marte | PCP | | + +------+ + Encounter Details +--------+ + + + + | Date | Type | Department | Care Team | Description | +--------+ + + + + | 01/31/ | Hospital | [facility] | Conversion | Diagnosis unknown | | 2018 | Encounter | CONVERSION DEP [address] | Transaction, | | | | | [place] | Provider Unknown | | | | | [place] | [phone] | | | | | [address] | | | | | | [phone] | | | +--------+ + + + [...]
--- OUTSIDE RECORDS SUMMARY | ~2019-10-27 | XMS | Encounter Summary ---
Demographics + + + | Address | [address] | | | [place] [address] | + + + | Home Phone [...] [place], | | | | | [place] [address] | | + + + + + | Kellen Briones | ECON | [place], [place] | | | | | [address] | | + + + + + Care Team Providers + +------+ + | Care Tour Leader Name | Role | Phone | + +------+ + | Barb Marte | PCP | | + +------+ + Reason for Referral Evaluate & Treat (Routine) + + + + + + + | Status | Reason | Specialty | Diagnoses / | Referred By | Referred To | | | | | Procedures | Contact | Contact | + + + + + + + | Pending | Specialty | Occupational | Diagnoses | Christopher, | | | Review | Services | Therapy | Lumbar | MD Monster | | | | Required | | degenerative | [address] | | | | | | disc | T[address]ADE | | | | | | disease | [facility] | | | | | | Spondylolist | [place] | | | | | | hesis of | [address] | | | | | | lumbar | Phone: | | | | | | region | [phone] | | | | | | | Fax: | | | | | | | [phone] | | + + + + + + + Evaluate & Treat (Routine) + + + + + + + | Status | Reason | Specialty | Diagnoses / | Referred By | Referred To | | | | | Procedures | Contact | Contact | + + + + + + + | Pending | Specialty | Physical | Diagnoses | Christopher, | | | Review | Services | Therapy | Lumbar | MD Monster | | | | Required | | degenerative | [address] | | | | | | disc | TUSHAR WADE | | | | | | disease | [facility] | | | | | | Spondylolist | [place] | | | | | | hesis of | [address] | | | | | | lumbar | Phone: | | | | | | region | [phone] | | | | | | | Fax: | | | | | | | [phone] | | + + + + + + + Reason for Visit Auth/Cert +--------+--------+ + [...] | | | | Lumbar | | [address] Phone: | | | | | degenerative | | [phone] | | | | | disc | | Fax: | | | | | disease | | [phone] | | | | | Procedures | | | | | | | LAMINEC/FACE | | | | | | | TECT/FORAMIN | | | | | | | ,LUMBAR 1 | | | | | | | SEG CT | | | | | | | [...] + + + + | 07/22/ | Hospital | [facility] | Monster White MD | Type 1 diabetes | | 2019 - | Encounter | [facility] [address] | [address] | mellitus without | | | | [address] | [place], [place] | complication (HCC); | | 07/29/ | | [place], [place] | [address] | Lumbar degenerative | | 2019 | | [address] | | disc disease; | | | | [phone] | | Spondylolisthesis of | | | [...] + + + | Blood Pressure | 180/79 | 07/29/2019 11:30 AM | | | | | PST | | + + + + + | Pulse | 84 | 07/29/2019 11:30 AM | | | | | PST | | + + + + + | Temperature | 36.3 C (97.3 F) | 07/29/2019 11:30 AM | | | | | PST | | + + + + + | Respiratory Rate | 17 | 07/29/2019 11:30 AM | | | | | PST | | + + + + + | Oxygen Saturation | 97% | 07/29/2019 11:30 AM | | | | | PST | | + + + + + | Inhaled Oxygen | - | - | | | Concentration | | | | + + + + + | Weight | 56.2 kg (124 lb) | 07/28/2019 7:49 AM | | | | | PST | | + + + + + | Height | 160 cm (5' 3") | 07/22/2019 6:26 AM | | | | | PST | | + + + + + | Body Mass Index | 21.97 | 07/22/2019 6:26 AM | | | | | PST | | + + + + + documented in this encounter Functional [...] + + documented as of this encounter Discharge Summaries Yifan Ware ARNP - 07/25/2019 8:18 AM PST Physician Discharge Summary Patient ID: Clementine Winchester [id number] 79 y.o. 1940 Admit date: 07/22/2019 Discharge date and time: 07/29/2019 Admitting Physician: Monster White MD Discharge Physician: SHELBY Calvo Admission Diagnoses: Spondylolisthesis of lumbar region [M43.16] Lumbar degenerative disc disease [M51.36] Discharge Diagnoses: same Admission Condition: good Discharged Condition: good Indication for Admission: Mrs. Winchester is a 79 y/o F who underwent L4-5 lumbar fusion. Follo wing surgery she was maintained with her usual home medications. Leg pain improved. She had bouts with gout on her left foot resolved after 1 day of treatment with Indomethacin/colchic ine. She was dc to SNF in stable condition. Hospital Course: as above. Consults: none Significant Diagnostic Studies: labs: CBC: Lab Results Component Value Date WBC 14.36 (H) 07/23/2019 RBC 3.01 (L) 07/23/2019 RBC 3.93 02/04/2018 HGB 9.1 (L) 07/23/2019 HCT 28.8 (L) 07/23/2019 MCV 95.7 07/23/2019 MCH 30.2 07/23/2019 MCHC 31.6 (L) 07/23/2019 PLT 405 (H) 07/23/2019 MPV 10.2 07/23/2019 DIFFTYPE AUTOMATED 07/23/2019 BMP: Lab Results Component Value Date NA 134 (L) 07/23/2019 K 4.4 07/23/2019 CL 102 07/23/2019 CO2 25 07/23/2019 ANIONGAP 11 07/23/2019 GLUF 101 (H) 02/05/2018 BUN 11 07/23/2019 GLOB 3.3 02/01/2018 AGRATIO 0.7 (L) 07/08/2019 BILITOT 0.4 02/01/2018 AST 12 07/08/2019 ALT 14 07/08/2019 EGFR 54 (L) 07/23/2019 Treatments: IV hydration Discharge Exam: BP 95/54 | Pulse 98 | Temp 36.8 C (98.3 F) (Oral) | Resp 18 | Ht 1.6 m (5' 3") | W t 56.3 kg (124 lb 1.9 oz) | SpO2 95% | No | BMI 21.99 kg/m General Appearance: Alert, cooperative, no distress, appears stated age Head: Normocephalic, without obvious abnormality, atraumatic Eyes: PERRL, conjunctiva/corneas clear, EOM's intact, fundi benign, both eyes Ears: Normal TM's and external ear canals, both ears Nose: Nares normal, septum midline, mucosa normal, no drainage or sinus tenderness Throat: Lips, mucosa, and tongue normal; teeth and gums normal Neck: Supple, symmetrical, trachea midline, no adenopathy; thyroid: no enlargement/tenderness/nodules; no carotid bruit or JVD Back: Symmetric, no curvature, ROM normal, no CVA tenderness Lungs: Clear to auscultation bilaterally, respirations unlabored Chest Wall: No tenderness or deformity Heart: Regular rate and rhythm, S1 and S2 normal, no murmur, rub or gallop Breast Exam: No tenderness, masses, or nipple abnormality Abdomen: Soft, non-tender, bowel sounds active all four quadrants, no masses, no organomegaly Genitalia: Normal female without lesion, discharge or tenderness Rectal: Normal tone, no masses or tenderness; guaiac negative stool Extremities: Extremities normal, atraumatic, no cyanosis or edema Pulses: 2+ and symmetric all extremities Skin: Skin color, texture, turgor normal, no rashes or lesions Lymph nodes: Cervical, supraclavicular, and axillary nodes normal Neurologic: CNII-XII intact, normal strength, sensation and reflexes throughout Disposition: SNF Patient Instructions: Discharge Medications New Medications Details docusate sodium 100 MG capsule Take 200 mg by mouth 2 times daily. aka: COLACE methocarbamol 500 mg tablet Take 1 tablet by mouth 3 times daily as needed for Muscle spasms. aka: ROBAXIN oxyCODONE 5 mg tablet Take 1 tablet by mouth every 6 hours as needed for Pain. aka: ROXICODONE polyethylene glycol packet Take 1 diluted packet by mouth Daily. aka: MIRALAX senna 8.6 mg tablet Take 1 tablet by mouth 2 times daily (before meals). aka: SENOKOT Unchanged Medications Details aspirin 81 mg EC tablet Take 81 mg by mouth Daily. atorvaSTATin 40 mg tablet Take 40 mg by mouth nightly. aka: LIPITOR Calcium 600-200 MG-UNIT Tabs Take 1 tablet by mouth Daily. cyanocobalamin 100 mcg tablet Take by mouth Daily. aka: VITAMIN B-[address] capsule 20 mg. aka: CYMBALTA fentaNYL 25 mcg/hr APPLY 1 PATCH TO THE SKIN Q 3 DAYS aka: DURAGESIC furosemide 20 mg tablet Take 20 mg by mouth. aka: LASIX gabapentin 100 mg capsule Take 100 mg by mouth 2 times daily. aka: NEURONTIN levothyroxine 25 mcg tablet Take 25 mcg by mouth Daily. aka: SYNTHROID lisinopril 5 mg tablet Take 1 tablet by mouth Daily. aka: PRINIVIL, ZESTRIL magnesium (as oxide) 250 MG tablet Take 250 mg by mouth Daily. metFORMIN 500 mg tablet Take 500 mg by mouth nightly. aka: GLUCOPHAGE nitroglycerin 0.[address] 0.4 mg under the tongue every 5 minutes as needed. aka: NITROSTAT omeprazole 40 MG capsule Take 40 mg by mouth Daily. aka: priLOSEC potassium chloride 10 MEQ ER tablet Take 10 mEq by mouth. aka: ЕЛЕНА UNABLE TO FIND LSO [id number] VENTOLIN HFA 90 mcg/puff inhaler Generic drug: albuterol Take 1 puff by mouth as needed. Discontinued Medications chlorhexidine 4 % external liquid aka: MARLA Activity: activity as tolerated Diet: regular diet Wound Care: keep wound clean and dry Follow[facility] with [facility] within 2 weeks. Activity restrictions, dressing changes and use of LSO brace d/w patient prior to discharge . Signed: SHELBY Calvo 07/25/2019 8:18 AM documented in this enco unter Medications at Time of Discharge + + [...] 10 mEq by | | 0 | 07/18/20 | | | (KLOR-CON) 10 MEQ | [...] documented as of this encounter Progress Notes Yifan Ware ARNP - 07/28/2019 2:[address] scan shows no significant ano malies. Uric acid level quite elevated today. Will start on colchicine and indomethacin. We will continue to follow. Flor Soto OTR/L - 07/28/2019 9:40 AM PST MISSED OCCUPATIONAL THERAPY VISIT: Therapy attempted to see the following patient today: Clementine Winchester Missed Visit (treatment on hold)(awaiting CT scan) The reason for the missed visit was: Per RN pt now unable to WB on LLE. Awaiting CT scan. W ill f/u pending results. Yifan Ellis ARNP - 07/28/2019 7:54 AM PSTNow unable to bear weight on LLE. Tender to touch mainly throughout left foot. No pain on thigh/calf both anterior/posterior or lateral. Exam: Tender to touch throughout left foot. Right LE unremarkable. No tenderness throughout left thigh/calf. Calves soft bilaterally. A/P Acute gout? Unexplained pain Will get lumbar Ct Uric acid level Hold off discharge for now. Itzel Adams RN - 07/28/2019 4:11 AM [facility] chart check complete. Electronically si gned by Itzel Alejandre RN at 07/28/2019 4:12 AM Macie Chapa PA-C - 07/24/2019 9:53 AM PST Orthopedic Spine Progress Note [facility] Neurosurgery Provider: Macie Cordova PA-C Date : 07/24/2019 9:53 AM Referring Provider: No ref. provider found Hospital Day: LOS: 2 days From 07/21/2019 H&P - Chief Complaint:Low back pain with left more than right leg pain HPI:Mrs. Winchester is a 79-year-old patient who has noticed progressive difficulty ambulatin g more than 50 to 100 feet without dependent on her walker. Sitting is much more comfortab le for her comparing it to standing or walking upright. Patient has tried numerous conserv ative treatment and would like to consider surgery as much as possible. Location:lumbar Pain scale without medicine:10 Pain scale with medicine:10 Description and location:intense pain on the lower lumbar, radiates to the back of the le ft leg causing weakness and numbness, patient has has 8 falls in the past 3 months. Precipitating Factors:flexion, extension, pushing, lying down, stairs, jumping, twisting Alleviating Factors:nothing Current pain medication:gabapentin, fentanyl, antidepressants Admission Date - >07/22/2019 < - OR Date - Procedure(s): FUSION LUMBAR W/ LATERAL APPROACH (XLIF) L4/5 (N/A) LAMINECTOMY POSTERIOR LUMBAR SPINAL FUSION L4/5 (N/A) Hospital Course: 07/23/2019, SHELBY Calvo - Clementine Winchester is a 79 y.o. female patient status post L4-5 lumbar fusion. Leg pain has improved. Has adequate help at home. 07/24/2019 9:53 AM - Reports resolution of LE pain, some aching in the L hip and low back mo st apparent when changing positions. BP 98/54, 07/23 H/H 9.1/28.8, +Dizziness, denies SOB/CP. Ambulating well with OT/PT. No flatus. Tolerating diet and feels pain managed relatively we ll. Past Medical History: Diagnosis Date Acid reflux disease Adverse effect of anesthesia trouble urinating after anesthesia Arthritis Asthma Back pain Breast cancer ([facility]) 1987 Cancer ([facility]) Right breast Chronic diarrhea Chronic narcotic use COPD (chronic obstructive pulmonary disease) ([facility]) Coronary artery disease DDD (degenerative disc disease), cervical 05/13/2013 DDD (degenerative disc disease), lumbar 07/23/2012 Depression Diabetes mellitus ([facility]) Diabetes type 2, controlled ([facility]) Facet arthritis of cervical region 05/13/2013 Facet arthritis of lumbar region-Most severe at L4-L5,L5-S1 07/23/2012 Full dentures upper & lower GERD (gastroesophageal reflux disease) Heart attack ([facility]) Hyperlipidemia Hypertension Lumbar radiculopathy 07/23/2012 DE (myocardial infarction) ([facility]) Neck pain on right side 05/13/2013 Oxygen dependent 2 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 PTSD (post-traumatic stress disorder) Snoring Spinal stenosis of lumbar region with [id number]-A4-S8 level moderately severe 2012 Thyroid disease Social History Socioeconomic History Marital status: Spouse name: Not on file Number of children: Not on file Years of education: 14 Highest education level: Not on file Occupational History 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 Employer: [employer] Social Needs Financial resource strain: Not on file Food insecurity: Worry: Not on file Inability: Not on file Transportation needs: Medical: Not on file Non-medical: Not on file Tobacco Use Smoking status: Never Smoker Smokeless tobacco: Never Used Substance and Sexual Activity Alcohol use: Yes Alcohol/week: 2.0 standard drinks Types: 2 Glasses of wine per week Comment: occasional glass of wine Drug use: No Sexual activity: Not on file Lifestyle Physical activity: Days per week: Not on file Minutes per session: Not on file Stress: Not on file Relationships Social connections: Talks on phone: Not on file Gets together: Not on file Attends yazidi service: Not on file Active member of club or organization: Not on file Attends meetings of clubs or organizations: Not on file Relationship status: Not on file Intimate partner violence: Fear of current or ex partner: Not on file Emotionally abused: Not on file Physically abused: Not on file Forced sexual activity: Not on file Other Topics Concern Not on file Social History Narrative Not on file Past Surgical History: Procedure Laterality Date BELPHAROPTOSIS REPAIR 2009 bilateral bone spur left foot BREAST RECONSTRUCTION About 10 surgeries CARPAL TUNNEL RELEASE Bilateral CERVICAL SPINE SURGERY Anterior 03/30/2016 Procedure: C3-4, C4-5, C5-6, C6-7 Anterior Cervical Discectomy w/ Fusion and Plating; Bryan geon: Irving Becerril DO; Location: [facility] MAIN OR CORONARY ARTERY BYPASS GRAFT 2009 HYSTERECTOMY, TOTAL ABDOMINAL 1969 LUMBAR SPINE SURGERY N/A 07/22/2019 Procedure: FUSION LUMBAR W/ LATERAL APPROACH (XLIF) L4/5; Surgeon: Monster White MD; Loca tion: [facility] MAIN OR LUMBAR SPINE SURGERY N/A 07/22/2019 Procedure: LAMINECTOMY POSTERIOR LUMBAR SPINAL FUSION L4/5; Surgeon: Monster White MD; L ocation: [facility] MAIN OR MASTECTOMY MASTECTOMY, RADICAL 1986 Right MOUTH SURGERY 1957 She is edentulous Reconstruction of Left Thumb SPINE SURGERY TONSILLECTOMY AND ADENOIDECTOMY 1946 Family History Problem Relation Age of Onset Alcohol abuse Father Heart disease Father Migraines Daughter Other (see comment) Daughter Depression Migraines Son Other (see comment) Son Seizure disorder, snores Cancer Mother Heart disease Mother Hypertension Mother Arthritis Mother Hypertension Daughter COPD Daughter Arthritis Daughter High blood pressure Daughter Other (see comment) Daughter snores Malig hypertherm Neg Hx Allergies Allergen Reactions Capsaicin Rash Muscle relaxers can only take 0.5 tablet when taking. Tape [Adhesive & Tape] Rash Tizanidine Hcl Other (See Comments) Pt states it affected her balance and made her feel like she was in a fog. Objective Vital Signs: Last: Last 24hrs Vitals: 07/24/19 0859 BP: 92/55 Pulse: Resp: Temp: Temp: [36.6 C (97.8 F)-37.1 C (98.7 F)] 36.8 C (98.2 F) Pulse: [82-110] 101 Resp: [18-20] 20 BP: (92-127)/(54-59) 92/55 Intake/Output Summary (Last 24 hours) at 07/24/2019 0953 Last data filed at 07/24/2019 0609 Gross per 24 hour Intake 3175 ml Output 2400 ml Net 775 ml No intake/output data recorded. 07/22 1901 - 07/24 0700 In: 5845 [P.O.:3800; I.V.:2045] Out: 4075 [Urine:4075] Vent Settings Last 24hrs: General: Pleasant, awake, alert, and oriented. In no acute distress, well developed, well n ourished. Speech fluent and approriate Skin:Skin color, texture, turgor normal. No rashes or lesions. HEENT: Normocephalic atraumatic Muscle Strength: Right Left Upper Extremity: 5/5 5/5 Lower Extremity: 5/5 5/5 Wound:Clean, dry, and intact. No evidence of wound breakdown or infection Sensation:Normal reported sensation to light touch Recent Labs Lab 07/23/19 0519 WBC 14.36* RBC 3.01* HGB 9.1* HCT 28.8* PLT 405* Recent Labs Lab 07/22/19 0630 INR 1.0 Recent Labs Lab 07/23/19 0519 07/22/19 0630 NA 134* 140 K 4.4 3.7 CL 102 101 CO2 25 27 ANIONGAP 11 16 BUN 11 13 No results found for: CLARITYU, MEROPENEM, LEUKOCYTESUR, UROBILINOGEN, PHUR, BLOODU, KETON ES, BILIRUBINUR, GLUCOSEU No components found for: TROPONINI, CKTOTAL Scheduled Medications: [START ON 07/25/2019] aspirin 81 mg Oral Daily atorvaSTATin 40 mg Oral Nightly ceFAZolin 1 g Intravenous 3 times per day cyanocobalamin 100 mcg Oral Daily docusate sodium 100 mg Oral BID DULoxetine 20 mg Oral Daily fentaNYL 1 patch Transdermal Q72H furosemide 20 mg Oral Daily gabapentin 100 mg Oral BID levothyroxine 25 mcg Oral Daily lisinopril 5 mg Oral Daily metFORMIN 500 mg Oral Nightly pantoprazole 40 mg Oral QAM AC polyethylene glycol 17 g Oral Daily potassium chloride 10 mEq Oral Daily senna 8.6 mg Oral BID sodium chloride 0.9% 1,000 mL Intravenous Once PRN Medications: HYDROmorphone, lactulose, methocarbamol, ondansetron, oxyCODONE Continuous Infusions balanced electrolytes in water (PLASMALYTE-148/NORMOSOL-R) 100 mL/hr at 07/22/19 0651 sodium chloride 0.45% 100 mL/hr at 07/23/19 1145 Patient Active Problem List Diagnosis Date Noted POA Oxygen dependent - 2 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 03/30/2016 Unknown Priority: Medium H/O Syncope & collape 03/30/2016 Unknown Priority: Low H/O CVA/stroke 03/30/2016 Unknown Priority: Low H/O DE (myocardial infarction) 03/30/2016 Unknown Priority: Low H/O Breast cancer - Right 03/30/2016 Unknown Priority: Low Adverse effect of anesthesia - trouble urinating after anesthesia 03/30/2016 Unknown Priority: Low H/O Hysterectomy 03/30/2016 Unknown Priority: Low H/O CABG (coronary artery bypass graft) 03/30/2016 Unknown Priority: Low H/O Hypokalemia (taking diuretics) 03/30/2016 Unknown Priority: Low Chronic pain syndrome 01/31/2018 Unknown Neck pain on right side 05/13/2013 Unknown Facet arthritis of cervical region 05/13/2013 Unknown DDD (degenerative disc disease), cervical 05/13/2013 Unknown Snoring Unknown Chronic narcotic use Unknown Lumbar radiculopathy 07/23/2012 Unknown Lumbar degenerative disc disease 07/23/2012 Unknown Spinal stenosis of lumbar region with dkysuyhrxukns-B2-Q3 level moderately severe 07/23 Unknown Facet arthritis of lumbar region-Most severe at L4-L5,L5-S1 07/23/2012 Unknown Cervical stenosis of spinal canal 06/04/2012 Unknown Spondylolisthesis of cervical region 06/04/2012 Unknown Arthritis 06/04/2012 Unknown Leg pain, bilateral 06/04/2012 Unknown Lumbago 06/04/2012 Unknown Trochanteric bursitis of right hip 06/04/2012 Unknown Right hip pain 06/04/2012 Unknown Stroke of unknown etiology 06/04/2012 Unknown Spondylolisthesis of lumbar region 06/04/2012 Unknown Coronary atherosclerosis Unknown Diabetes mellitus - ORAL Control Unknown Hypertension Unknown Stroke Unknown Syncope and collapse Unknown Cancer Unknown Hyperlipidemia Unknown DE (myocardial infarction) Unknown GERD (gastroesophageal reflux disease) Unknown Asthma Unknown Assessment Clementine Winchester is a 79 y.o. female status post Procedure(s): FUSION LUMBAR W/ LATERAL APPROACH (XLIF) L4/5 (N/A) LAMINECTOMY POSTERIOR LUMBAR SPINAL FUSION L4/5 (N/A) - Admit Date - 07/22/2019 - Operative date - Resolution radiculopathy, some aching pain in the low back and L hip worse with martinez ging positions. BP 98/54, HR 101, 2/20 H/H 9.1/28.8, +dizziness without CP/SOB. Adequate uri ne output. HV with no output last shift. Plan : 1. NS fluid bolus this AM. Encouraged PO intake. 2. Work with PT/OT as scheduled. 3. Hospital bed Rx signed for home. 4. HV out today. 5. Optimize bowel protocol. 6. Consider disposition home 24-48hours pending progress. It is a pleasure being involved in this patients care should any questions or concerns delgado e feel free to contact me at any time. P. Jignesh Cordova PA-C Neurosurgery/Orthopedic Spine Natali Nayak RN - 6:27 PM PSTPt had no output from [facility]. Pt medicated for pain as needed. Pt joão ls remain stable, no acute changes during shift. End of shift chart check complete. Natali Lopez RN 6:29 PM Monster Person MD - 11:02 AM PSTPt. Seen and events noted. We will submit and obtain a hospital bed for home given the requirement for the patient to mobilize and transition from sitting to stand from lying to sit as well as to very bed heigh t in order to facilitate transfers and safe mobilization in and out of bed. Patient requires positioning of the body in ways not feasible by ordinary bed in order to alleviate pain and pt requires a bed height different than a fixed height bed to permit transfers to Pt wheelc hair or to standing position. This is a crucial for the pt. To have to fully recover from her surgical intervention and l imit excess torsion from her current living/bed situation. Yifan Ellis ARNP - 07/23/2019 8:18 AM PSTFormatting of th is note might be different from the original. Clementine Winchester is a 79 y.o. female patient status post L4-5 lumbar fusion. Leg pain has improved. Has adequate help at home. 1. Type 1 diabetes mellitus without complication ([facility]) 2. Lumbar degenerative disc disease 3. Spondylolisthesis of lumbar region Past Medical History: Diagnosis Date Acid reflux disease Adverse effect of anesthesia trouble urinating after anesthesia Arthritis Asthma Back pain Breast cancer ([facility]) 1987 Cancer ([facility]) Right breast Chronic diarrhea Chronic narcotic use COPD (chronic obstructive pulmonary disease) ([facility]) Coronary artery disease DDD (degenerative disc disease), cervical 05/13/2013 DDD (degenerative disc disease), lumbar 07/23/2012 Depression Diabetes mellitus ([facility]) Diabetes type 2, controlled ([facility]) Facet arthritis of cervical region 05/13/2013 Facet arthritis of lumbar region-Most severe at L4-L5,L5-S1 07/23/2012 Full dentures upper & lower GERD (gastroesophageal reflux disease) Heart attack ([facility]) Hyperlipidemia Hypertension Lumbar radiculopathy 07/23/2012 DE (myocardial infarction) ([facility]) Neck pain on right side 05/13/2013 Oxygen dependent 2 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 PTSD (post-traumatic stress disorder) Snoring Spinal stenosis of lumbar region with hmzckgaysqslu-G1-E1 level moderately severe 2012 Thyroid disease Current Facility-Administered Medications Medication Dose Route Frequency Provider Last Rate Last Dose [START ON 07/25/2019] aspirin chewable tablet 81 mg 81 mg Oral Daily SHELBY Calvo atorvaSTATin (LIPITOR) tablet 40 mg 40 mg Oral Nightly SHELBY Calvo 40 mg at 2023 balanced electrolytes in water (PLASMALYTE-148/NORMOSOL-R) infusion Intravenous Hayden nuous Monster White MD 100 mL/hr at 07/22/19 0651 ceFAZolin in dextrose (ANCEF, KEFZOL) IVPB 1 g 1 g Intravenous 3 times per day SHELBY Calvo 100 mL/hr at 07/23/19 0617 1 g at 07/23/19 0617 cyanocobalamin (VITAMIN B-12) tablet 100 mcg 100 mcg Oral Daily Yifan Ang, DAIRY FEED WORKER 100 mcg at 07/23/19 0801 docusate sodium (COLACE) capsule 100 mg 100 mg Oral BID Yifan Ang, DAIRY FEED WORKER 100 mg at 0 07/22/19 2024 DULoxetine (CYMBALTA) DR capsule 20 mg 20 mg Oral Daily Yifan Ang, DAIRY FEED WORKER 20 mg at 0801 fentaNYL (DURAGESIC) 25 mcg/hr 1 patch 1 patch Transdermal Q72H Yifan Ang, DAIRY FEED WORKER 1 p atch at 07/22/19 1407 furosemide (LASIX) tablet 20 mg 20 mg Oral Daily Yifan Ang, DAIRY FEED WORKER 20 mg at 07/22/19 1440 gabapentin (NEURONTIN) capsule 100 mg 100 mg Oral BID Yifan Ang, DAIRY FEED WORKER 100 mg at 0801 HYDROmorphone (DILAUDID) injection 0.2-0.4 mg 0.2-0.4 mg Intravenous Q1H PRN Yifan An g, DAIRY FEED WORKER lactulose liquid 30 mL 30 mL Oral Daily PRN Yifan Ang, DAIRY FEED WORKER levothyroxine (SYNTHROID) tablet 25 mcg 25 mcg Oral Daily Yifan Ang, [employer] WORKER 25 mcg at 07/23/19 0800 lisinopril (PRINIVIL, ZESTRIL) tablet 5 mg 5 mg Oral Daily Yifan Ang, [employer] WORK[employer] 5 mg at 07/23/19 0801 metFORMIN (GLUCOPHAGE) tablet 500 mg 500 mg Oral Nightly Yifan Ang, [employer] WORK[employer] 500 mg at 07/22/192023 methocarbamol (ROBAXIN) tablet 500 mg 500 mg Oral Q6H PRN Yifan Ang, [employer] WORK[employer] 500 mg at 07/22/19 1825 ondansetron (ZOFRAN ODT) disintegrating tablet 4 mg 4 mg Oral Q6H PRN Yifan Ang, [employer] FE[employer] WORKER oxyCODONE (ROXICODONE) tablet 2.5-10 mg 2.5-10 mg Oral Q3H PRN Yifan Ang, [employer] FE[employer] WORKER 5 mg at 07/23/19 0309 pantoprazole (PROTONIX) DR tablet 40 mg 40 mg Oral QAM AC Yifan Ang, [employer] FE[employer] WORKER 40 mg at 07/23/19 0618 polyethylene glycol (MIRALAX) powder 17 g 17 g Oral Daily Yifan Ware, [employer] FE[employer] WORKER potassium chloride (KLOR-CON) ER tablet 10 mEq 10 mEq Oral Daily Yifan Ang, [employer] FE[employer] WORKER 10 mEq at 07/23/19 0801 senna (SENOKOT) tablet 8.6 mg 8.6 mg Oral BID Yifancali Ware, [employer] FE[employer] WORKER 8.6 mg at 07/22/19 20 24 sodium chloride 0.45% (1/2 NS) infusion Intravenous Continuous Yifan Ang, [employer] WORKER 100 m L/hr at 07/22/192027 sodium chloride 0.9% (NS) 1,000 mL bolus Intravenous Once Yifan Ang, DA[employer] FE[employer] WORKER 1,000 mL/h r at 07/23/19 0758 Allergies Allergen Reactions Capsaicin Rash Muscle relaxers can only take 0.5 tablet when taking. Tape [Adhesive & Tape] Rash Tizanidine Hcl Other (See Comments) Pt states it affected her balance and made her feel like she was in a fog. Active Problems: Spondylolisthesis of lumbar region Lumbar degenerative disc disease Blood pressure 103/67, pulse 87, temperature 36.6 C (97.8 F), temperature source Oral, resp. rate 18, height 1.6 m (5' 3"), weight 56.3 kg (124 lb 1.9 oz), SpO2 95 %, not currentl y . Subjective: Symptoms: Stable. Diet: Adequate intake. Activity level: Impaired due to pain. Objective: General Appearance: In no acute distress. Vital signs: (most recent): Blood pressure 103/67, pulse 87, temperature 36.6 C (97.8 F ), temperature source Oral, resp. rate 18, height 1.6 m (5' 3"), weight 56.3 kg (124 lb 1.9 oz), SpO2 95 %, not currently . Output: Producing urine and no stool output. Lungs: Normal effort. Neurological: Patient is alert and oriented to person, place and time. Skin: Warm. Both hip flexor and quadriceps were equally strong. Assessment & Plan Spoke with daughter on the phone today regarding postop care. Continue with therapy today. Encourage hydration. SHELBY Calvo 07/23/2019 documented in this enco unter Plan of Treatment + + +--------+ + + | Name | Type | Priori | Associated Diagnoses | Order Schedule | | | | ty | | | + + +--------+ + + | Ambulatory referral | Outpatient | Routin | Lumbar | Ordered: 07/29/2019 | | to Physical Therapy | Referral | e | degenerative disc | | | | | | disease | | | | | | 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 | | + + +--------+ + + | Ambulatory referral | Outpatient | Routin | Lumbar | Ordered: 07/29/2019 | | to Occupational | Referral | e | degenerative disc | | | Therapy | | | disease | | | | | | 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 | | + + +--------+ + + documented as of this encounter Procedures + +--------+ + + + | Procedure Name | Priori | Date/Time | Associated Diagnosis | Comments | | | ty | | | | + +--------+ + + + | CT LUMBAR SPINE WO | Routin | 07/28/2019 | | Results for this | | CONTRAST | e | 12:17 PM | | procedure are in the | | | | PST | | results section. | + +--------+ + + + | CBC WITH | Routin | 07/28/2019 | | Results for this | | DIFFERENTIAL | e | 11:05 AM | | procedure are in the | | | | PST | | results section. | + +--------+ + + + | COMPREHENSIVE | Timed | 07/28/2019 | | Results for this | | METABOLIC PANEL | | 11:05 AM | | procedure are in the | | | | PST | | results section. | + +--------+ + + + | CBC WITH | Routin | 07/28/2019 | | Results for this | | DIFFERENTIAL | e | 8:30 AM | | procedure are in the | | | | PST | | results section. | + +--------+ + + + | URIC ACID | Routin | 07/28/2019 | | Results for this | | | e | 8:30 AM | | procedure are in the | | | | PST | | results section. | + +--------+ + + + | COMPREHENSIVE | Routin | 07/28/2019 | | Results for this | | METABOLIC PANEL | e | 8:30 AM | | procedure are in the | | | | PST | | results section. | + +--------+ + + + | CBC NO DIFFERENTIAL | Routin | 07/23/2019 | | Results for this | | | e | 5:19 AM | | procedure are in the | | | | PST | | results section. | + +--------+ + + + | BASIC METABOLIC | Routin | 07/23/2019 | | Results for this | | PANEL | e | 5:19 AM | | procedure are in the | | | | PST | | results section. | + +--------+ + + + | POC GLUCOSE (NON | Routin | 07/22/2019 | | Results for this | | ORD) | e | 10:30 AM | | procedure are in the | | | | PST | | results section. | + +--------+ + + + | FL C ARM | Routin | 07/22/2019 | | Results for this | | | e | 10:05 AM | | procedure are in the | | | | PST | | results section. | + +--------+ + + + | POC GLUCOSE (NON | Routin | 07/22/2019 | | Results for this | | ORD) | e | 6:50 AM | | procedure are in the | | | | PST | | results section. | + +--------+ + + + | LAMINECTOMY | | 07/22/2019 | Spondylolisthesis | | | POSTERIOR LUMBAR | | 6:40 AM | of lumbar region | | | SPINAL FUSION | | PST | Lumbar degenerative | | | | | | disc disease | | + +--------+ + + + +---+--------+ | | | | | Specia | | | l | | | Needs | | | | | | nuvasi | | | ve | +---+--------+ + +---+ + +---+ | FUSION LUMBAR W/ | | 07/22/2019 | Spondylolisthesis | | | LATERAL APPROACH | | 6:40 AM | of lumbar region | | | (XLIF) | | PST | Lumbar degenerative | | | | | | disc disease | | + +---+ + +---+ +---+--------+ | | | | | Specia | | | l | | | Needs | | | | | | nuvasi | | | ve | +---+--------+ + +--------+ +---+ + | POC GLUCOSE (NON | Routin | 07/22/2019 | | Results for this | | ORD) | e | 6:31 AM | | procedure are in the | | | | PST | | results section. | + +--------+ +---+ + | PROTIME INR | STAT | 07/22/2019 | | Results for this | | | | 6:30 AM | | procedure are in the | | | | PST | | results section. | + +--------+ +---+ + | TYPE AND SCREEN | STAT | 07/22/2019 | | Results for this | | | | 6:30 AM | | procedure are in the | | | | PST | | results section. | + +--------+ +---+ + | BASIC METABOLIC | STAT | 07/22/2019 | | Results for this | | PANEL | | 6:30 AM | | procedure are in the | | | | PST | | results section. | + +--------+ +---+ + documented in this encounter Results CT Lumbar Spine wo Contrast (07/28/2019 12:17 PM PST) + + | Specimen | + + | | + + + + + | Impressions | Performed At | + + + | 1. Postsurgical changes are noted with interbody lumbar fusion at | [facility] | | L4-5 without evidence of complication. 2. Severe degenerative disc | | | disease of the lumbar spine is similar to previous examination. 3. | | | Questionable impingement of the right L1, bilateral L2, L3, L4, left | | | L5 and bilateral S1 nerve root as noted above. Signed by: | | | Linda Forrest, Bobby Sign Date/Time: 07/28/2019 12:41 PM | | + + + + + + | Narrative | Performed At | + + + | CT LUMBAR SPINE WITHOUT CONTRAST CLINICAL INFORMATION: Back | [facility] | | pain or radiculopathy, for six weeks, uncomplicated COMPARISON: | | | XR LUMBAR SPINE 4 + VW (04/09/2019); CT LUMBAR SPINE WO CONTRAST | | | (04/09/2019); MRI LUMBAR SPINE WO CONTRAST (04/09/2019); PROCEDURE: | | | Thin section non-contrast axial sections through the lumbar spine. | | | Sagittal and coronal reformations were obtained from the axial | | | acquisition data. At least one of the following CT dose | | | optimization techniques were used: Automated exposure control; | | | Adjustment of mA and/or kV according to patient size; Use of | | | iterative reconstruction technique. FINDINGS: Alignment: There | | | are 5 [id number] lumbar vertebral type bodies. There is 5 mm | | | anterolisthesis of L4 on L5. Transpedicular fixation hardware is | | | noted from L4 through L5 which is new from comparison CT. Incomplete | | | bony incorporation of the interbody spacer is noted. There is | | | severe disc space narrowing at L1-2, L2-3, L4-5 and L5-S1 similar to | | | previous examination. Vertebrae: No fractures or evidence of acute | | | vertebral deformity. Lumbar Disc Levels: T12-L1: A moderate | | | circumferential disc is demonstrated. There is mild spinal canal | | | and bilateral subarticular recess narrowing, similar to prior study. | | | There is mild left foraminal narrowing, unchanged. L1-2: There | | | is a large circumferential disc resulting in moderate spinal canal | | | and bilateral subarticular recess narrowing. There is additional | | | mild bilateral facet arthropathy. There may be equivocal | | | impingement of the transiting bilateral L2 nerve root, unchanged. | | | There is moderate right and mild left foraminal stenosis with possible | | | impingement of the exiting right L1 nerve root. L2-3: There is a | | | moderate circumferential disc resulting in moderate bilateral | | | subarticular recess stenosis with mild spinal canal narrowing. | | | There is equivocal impingement of the transiting bilateral L3 nerve | | | root. The neural foramen are minimally narrowed bilaterally, | | | similar to prior study. L3-4: There is a large circumferential | | | disc with moderate bilateral facet arthropathy. There appears to be | | | moderate bilateral subarticular recess stenosis with moderate spinal | | | canal narrowing, similar to prior study. There may be impingement | | | of the transiting bilateral L4 nerve root. There is moderate left | | | and mild right foraminal narrowing. This is similar to previous | | | study. L4-5: Postoperative changes are noted from a left | | | hemilaminotomy with improvement in spinal stenosis. A mild | | | circumferential disc is seen with mild bilateral subarticular recess | | | stenosis. The neural foramen are minimally narrowed bilaterally. | | | L5-S1: A moderate circumferential disc is noted. There is moderate | | | bilateral facet arthropathy contributing to moderate bilateral | | | subarticular recess stenosis with potential impingement of the | | | transiting bilateral S1 nerve root. There is moderate left and mild | | | right foraminal stenosis with questionable impingement of the exiting | | | left L5 nerve root. Facets and Posterior Spinal Elements: As | | | above. Paravertebral Soft Tissues: Bone graft material is noted | | | along the right fixation construct. There is severe fatty atrophy | | | of the lower paraspinous musculature. Some gas is seen around the | | | left psoas musculature from recent intervention. There is moderate | | | calcification of the abdominal aorta with no aneurysm. | | + + + + + | Procedure Note | + + | Howard, Rad Results In - 07/28/2019 12:44 PM PST | | CT LUMBAR SPINE WITHOUT CONTRAST | | | | CLINICAL INFORMATION: | | Back pain or radiculopathy, for six weeks, uncomplicated | | | | COMPARISON: | | XR LUMBAR SPINE 4 + VW (04/09/2019); CT LUMBAR SPINE WO CONTRAST | | (04/09/2019); MRI LUMBAR SPINE WO CONTRAST (04/09/2019); | | | | PROCEDURE: | | Thin section non-contrast axial sections through the lumbar spine. | | Sagittal and coronal reformations were obtained from the axial | | acquisition data. | | | | At least one of the following CT dose optimization techniques were | | used: Automated exposure control; Adjustment of mA and/or kV according | | to patient size; Use of iterative reconstruction technique. | | | | FINDINGS: | | Alignment: There are 5 [id number] lumbar vertebral type bodies. | | There is 5 mm anterolisthesis of L4 on L5. Transpedicular fixation | | hardware is noted from L4 through L5 which is new from comparison CT. | | Incomplete bony incorporation of the interbody spacer is noted. There | | is severe disc space narrowing at L1-2, L2-3, L4-5 and L5-S1 similar to | | previous examination. | | | | Vertebrae: No fractures or evidence of acute vertebral deformity. | | | | Lumbar Disc Levels: | | | | T12-L1: A moderate circumferential disc is demonstrated. There is mild | | spinal canal and bilateral subarticular recess narrowing, similar to | | prior study. There is mild left foraminal narrowing, unchanged. | | | | L1-2: There is a large circumferential disc resulting in moderate | | spinal canal and bilateral subarticular recess narrowing. There is | | additional mild bilateral facet arthropathy. There may be equivocal | | impingement of the transiting bilateral L2 nerve root, unchanged. | | There is moderate right and mild left foraminal stenosis with possible | | impingement of the exiting right L1 nerve root. | | | | L2-3: There is a moderate circumferential disc resulting in moderate | | bilateral subarticular recess stenosis with mild spinal canal | | narrowing. There is equivocal impingement of the transiting bilateral | | L3 nerve root. The neural foramen are minimally narrowed bilaterally, | | similar to prior study. | | | | L3-4: There is a large circumferential disc with moderate bilateral | | facet arthropathy. There appears to be moderate bilateral subarticular | | recess stenosis with moderate spinal canal narrowing, similar to prior | | study. There may be impingement of the transiting bilateral L4 nerve | | root. There is moderate left and mild right foraminal narrowing. This | | is similar to previous study. | | | | L4-5: Postoperative changes are noted from a left hemilaminotomy with | | improvement in spinal stenosis. A mild circumferential disc is seen | | with mild bilateral subarticular recess stenosis. The neural foramen | | are minimally narrowed bilaterally. | | | | L5-S1: A moderate circumferential disc is noted. There is moderate | | bilateral facet arthropathy contributing to moderate bilateral | | subarticular recess stenosis with potential impingement of the | | transiting bilateral S1 nerve root. There is moderate left and mild | | right foraminal stenosis with questionable impingement of the exiting | | left L5 nerve root. | | | | Facets and Posterior Spinal Elements: As above. | | | | Paravertebral Soft Tissues: Bone graft material is noted along the | | right fixation construct. There is severe fatty atrophy of the lower | | paraspinous musculature. Some gas is seen around the left psoas | | musculature from recent intervention. There is moderate calcification | | of the abdominal aorta with no aneurysm. | | | | IMPRESSION: | | 1. Postsurgical changes are noted with interbody lumbar fusion at L4-5 | | without evidence of complication. | | 2. Severe degenerative disc disease of the lumbar spine is similar to | | previous examination. | | 3. Questionable impingement of the right L1, bilateral L2, L3, L4, left | | L5 and bilateral S1 nerve root as noted above. | | | | | | | | | | Signed by: Linda Forrest Richard | | Sign Date/Time: 07/28/2019 12:41 PM | + + + +---------+ + + | Performing | Address | City/State/[facility] | Phone Number | | Organization | | | | + +---------+ + + | [facility] | | | | + +---------+ + + CBC with Differential (07/28/2019 11:05 AM PST) + + + + + + | Component | Value | Ref Range | Performed | Pathologist | | | | | At | Signature | + + + + + + | WBC | 9.65 | 3.80 - 11.00 | [facility] | | | | | K/uL | LABORATORY | | + + + + + + | RBC | 2.72 (L) | 3.70 - 5.10 | [facility] | | | | | M/uL | LABORATORY | | + + + + + + | Hemoglobin | 8.2 (L) | 11.3 - 15.5 | [facility] | | | | | g/dL | LABORATORY | | + + + + + + | Hematocrit | 25.8 (L) | 34.0 - 46.0 % | [facility] | | | | | | LABORATORY | | + + + + + + | MCV | 94.9 | 80.0 - 100.0 fl | [facility] | | | | | | LABORATORY | | + + + + + + | MCH | 30.1 | 27.0 - 34.0 pg | [facility] | | | | | | LABORATORY | | + + + + + + | MCHC | 31.8 (L) | 32.0 - 35.5 | [facility] | | | | | g/dL | LABORATORY | | + + + + + + | RDW-SD | 42.4 | 37 - 53 fl | [facility] | | | | | | LABORATORY | | + + + + + + | Platelet | 351 | 150 - 400 K/uL | [facility] | | | Count | | | LABORATORY | | + + + + + + | MPV | 10.4Comment: NO NORMAL | fl | [facility] | | | | RANGE ESTABLISHED | | LABORATORY | | + + + + + + | Diff Type | AUTOMATED | | [facility] | | | | | | LABORATORY | | + + + + + + | % nRBC | 0.0 | 0 /100WBC | [facility] | | | | | | LABORATORY | | + + + + + + | % | 73.00 | % | [facility] | | | Neutrophils | | | LABORATORY | | + + + + + + | IMMATURE | 0.30 | % | [facility] | | | GRANULOCYTE | | | LABORATORY | | + + + + + + | % | 16.40 | % | [facility] | | | Lymphocytes | | | LABORATORY | | + + + + + + | Monocyte % | 10.10 | % | [facility] | | | | | | LABORATORY | | + + + + + + | Eosinophils | 0.10 | % | [facility] | | | % | | | LABORATORY | | + + + + + + | Basophils % | 0.10 | % | [facility] | | | | | | LABORATORY | | + + + + + + | Neutrophils | 7.05 | 1.90 - 7.40 | [facility] | | | , Absolute | | K/uL | LABORATORY | | + + + + + + | IMMATURE | 0.03Comment: NOTE NEW | 0.00 - 0.07 | [facility] | | | GRANS AB | REFERENCE RANGE | K/uL | LABORATORY | | + + + + + + | Absolute | 1.58 | 1.00 - 3.90 | [facility] | | | Lymphocytes | | K/uL | LABORATORY | | + + + + + + | Absolute | 0.97 (H) | 0.00 - 0.80 | [facility] | | | Monocytes | | K/uL | LABORATORY | | + + + + + + | Eosinophils | 0.01 | 0.00 - 0.50 | [facility] | | | , Absolute | | K/uL | LABORATORY | | + + + + + + | Basophils, | 0.01Comment: Testing | 0.00 - 0.10 | [facility] | | | Absolute | performed at [facility], [address] | K/uL | LABORATORY | | | | [place] [address], | | | | | | [place] [address] | | | | + + + + + + + + | Specimen | + + | Blood | + + + + + + + | Performing | Address | City/State/Zipcode | Phone Number | | Organization | | | | + + + + + | [facility] | [address] | [place] [address] | [phone] | + + + + + Comprehensive Metabolic Panel (07/28/2019 11:05 AM PST) + + + + + + | Component | Value | Ref Range | Performed | Pathologist | | | | | At | Signature | + + + + + + | Na | 134 (L) | 135 - 145 | [facility] | | | | | mmol/L | LABORATORY | | + + + + + + | K | 4.2 | 3.5 - 4.9 | [facility] | | | | | mmol/L | LABORATORY | | + + + + + + | Cl | 98 (L) | 99 - 109 mmol/L | [facility] | | | | | | LABORATORY | | + + + + + + | CO2 | 29 | 23 - 32 mmol/L | [facility] | | | | | | LABORATORY | | + + + + + + | Anion Gap | 11 | 5 - 20 mmol/L | [facility] | | | | | | LABORATORY | | + + + + + + | Glucose | 116 (H) | 65 - 99 mg/dL | [facility] | | | | | | LABORATORY | | + + + + + + | BUN | 10 | 8 - 25 mg/dL | [facility] | | | | | | LABORATORY | | + + + + + + | Creatinine | 0.7 | 0.50 - 1.00 | [facility] | | | | | mg/dL | LABORATORY | | + + + + + + | BUN/Creatin | 14 | | [facility] | | | ine Ratio | | | LABORATORY | | + + + + + + | Calcium | 8.3 (L) | 8.5 - 10.5 | [facility] | | | | | mg/dL | LABORATORY | | + + + + + + | Protein, | 5.7 (L) | 6.3 - 8.2 g/dL | [facility] | | | Total | | | LABORATORY | | + + + + + + | Albumin | 1.6 (L) | 3.3 - 4.8 g/dL | [facility] | | | | | | LABORATORY | | + + + + + + | Globulin | 4.1 | 1.3 - 4.9 g/dL | [facility] | | | | | | LABORATORY | | + + + + + + | A/G Ratio | 0.4 (L) | 1.0 - 2.4 | [facility] | | | | | | LABORATORY | | + + + + + + | BILIRUBIN, | 0.5 | 0.1 - 1.5 mg/dL | [facility] | | | TOTAL | | | LABORATORY | | + + + + + + | ALK PHOS | 61 | 35 - 115 U/L | [facility] | | | | | | LABORATORY | | + + + + + + | AST | 21 | 10 - 45 U/L | [facility] | | | | | | LABORATORY | | + + + + + + | ALT | 15 | 10 - 65 U/L | [facility] | | | | | [facility] | | + + + + + + | Estimated | >60Comment: GFR <60: | >60 | [facility] [...] | | | | | performed at [facility], [address] | | | | | [facility], | | | | | | [place] [address] | | | | + + + + + + + + | Specimen | + + | Blood | + + + + + + + | Performing | Address | City/State/Zipcode | Phone Number | | Organization | | | | + + + + + | [facility] | [address] | [place] [address] | [phone] | + + + + + Comprehensive Metabolic Panel (07/28/2019 8:30 AM PST) + + + + + + | Component | Value | Ref Range | Performed | Pathologist | | | | | At | Signature | + + + + + + | Na | 134 (L) | 135 - 145 | [facility] | | | | | mmol/L | LABORATORY | | + + + + + + | K | 4.3 | 3.5 - 4.9 | [facility] | | | | | mmol/L | LABORATORY | | + + + + + + | Cl | 97 (L) | 99 - 109 mmol/L | [facility] | | | | | | LABORATORY | | + + + + + + | CO2 | 28 | 23 - 32 mmol/L | [facility] | | | | | | LABORATORY | | + + + + + + | Anion Gap | 13 | 5 - 20 mmol/L | [facility] | | | | | | LABORATORY | | + + + + + + | Glucose | 106 (H) | 65 - 99 mg/dL | [facility] | | | | | | LABORATORY | | + + + + + + | BUN | 10 | 8 - 25 mg/dL | [facility] | | | | | | LABORATORY | | + + + + + + | Creatinine | 0.7 | 0.50 - 1.00 | [facility] | | | | | mg/dL | LABORATORY | | + + + + + + | BUN/Creatin | 14 | | [facility] | | | ine Ratio | | | LABORATORY | | + + + + + + | Calcium | 8.6 | 8.5 - 10.5 | [facility] | | | | | mg/dL | LABORATORY | | + + + + + + | Protein, | 5.5 (L) | 6.3 - 8.2 g/dL | [facility] | | | Total | | | LABORATORY | | + + + + + + | Albumin | 1.8 (L) | 3.3 - 4.8 g/dL | [facility] | | | | | | LABORATORY | | + + + + + + | Globulin | 3.7 | 1.3 - 4.9 g/dL | [facility] | | | | | | LABORATORY | | + + + + + + | A/G Ratio | 0.5 (L) | 1.0 - 2.4 | [facility] | | | | | | LABORATORY | | + + + + + + | BILIRUBIN, | 0.5 | 0.1 - 1.5 mg/dL | [facility] | | | TOTAL | | | LABORATORY | | + + + + + + | ALK PHOS | 73 | 35 - 115 U/L | [facility] | | | | | | LABORATORY | | + + + + + + | AST | 21 | 10 - 45 U/L | [facility] | | | | | | LABORATORY | | + + + + + + | ALT | 17 | 10 - 65 U/L | [facility] | | | | | | LABORATORY | | + + + + + + | Estimated | >60Comment: GFR <60: | >60 | [facility] [...] | | | | | | MDRD IDID traceable | | | | | | equation.Testing | | | | | | performed at [facility], [address] | | | | | | [facility], | | | | | | [place] [address] | | | | + + + + + + + + | Specimen | + + | Blood | + + + + + + + | Performing | Address | City/State/Zipcode | Phone Number | | Organization | | | | + + + + + | [facility] | [address] | [place] [address] | [phone] | + + + + + CBC with Differential (07/28/2019 8:30 AM PST) + + + + + + | Component | Value | Ref Range | Performed | Pathologist | | | | | At | Signature | + + + + + + | WBC | 9.84 | 3.80 - 11.00 | [facility] | | | | | K/uL | LABORATORY | | + + + + + + | RBC | 3.03 (L) | 3.70 - 5.10 | [facility] | | | | | M/uL | LABORATORY | | + + + + + + | Hemoglobin | 9.3 (L) | 11.3 - 15.5 | [facility] | | | | | g/dL | LABORATORY | | + + + + + + | Hematocrit | 29.0 (L) | 34.0 - 46.0 % | [facility] | | | | | | LABORATORY | | + + + + + + | MCV | 95.7 | 80.0 - 100.0 fl | [facility] | | | | | | LABORATORY | | + + + + + + | MCH | 30.7 | 27.0 - 34.0 pg | [facility] | | | | | | LABORATORY | | + + + + + + | MCHC | 32.1 | 32.0 - 35.5 | [facility] | | | | | g/dL | LABORATORY | | + + + + + + | RDW-SD | 42.9 | 37 - 53 fl | [facility] | | | | | | LABORATORY | | + + + + + + | Platelet | 373 | 150 - 400 K/uL | [facility] | | | Count | | | LABORATORY | | + + + + + + | MPV | 10.6Comment: NO NORMAL | fl | [facility] | | | | RANGE ESTABLISHED | | LABORATORY | | + + + + + + | Diff Type | AUTOMATED | | [facility] | | | | | | LABORATORY | | + + + + + + | % nRBC | 0.0 | 0 /100WBC | [facility] | | | | | | LABORATORY | | + + + + + + | % | 75.60 | % | [facility] | | | Neutrophils | | | LABORATORY | | + + + + + + | IMMATURE | 0.50 | % | [facility] | | | GRANULOCYTE | | | LABORATORY | | + + + + + + | % | 13.70 | % | [facility] | | | Lymphocytes | | | LABORATORY | | + + + + + + | Monocyte % | 9.90 | % | [facility] | | | | | | LABORATORY | | + + + + + + | Eosinophils | 0.20 | % | [facility] | | | % | | | LABORATORY | | + + + + + + | Basophils % | 0.10 | % | [facility] | | | | | | LABORATORY | | + + + + + + | Neutrophils | 7.44 (H) | 1.90 - 7.40 | [facility] | | | , Absolute | | K/uL | LABORATORY | | + + + + + + | IMMATURE | 0.05Comment: NOTE NEW | 0.00 - 0.07 | [facility] | | | GRANS AB | REFERENCE RANGE | K/uL | LABORATORY | | + + + + + + | Absolute | 1.35 | 1.00 - 3.90 | [facility] | | | Lymphocytes | | K/uL | LABORATORY | | + + + + + + | Absolute | 0.97 (H) | 0.00 - 0.80 | [facility] | | | Monocytes | | K/uL | LABORATORY | | + + + + + + | Eosinophils | 0.02 | 0.00 - 0.50 | [facility] | | | , Absolute | | K/uL | LABORATORY | | + + + + + + | Basophils, | 0.01Comment: Testing | 0.00 - 0.10 | [facility] | | | Absolute | performed at [facility], [address] | K/uL | LABORATORY | | | | [address], | | | | | | [place] [address] | | | | + + + + + + + + | Specimen | + + | Blood | + + + + + + + | Performing | Address | City/State/Zipcode | Phone Number | | Organization | | | | + + + + + | [facility] | [address] | [place] [address] | [phone] | + + + + + Uric Acid (07/28/2019 8:30 AM PST) + + + + + + | Component | Value | Ref Range | Performed | Pathologist | | | | | At | Signature | + + + + + + | Uric Acid | 7.6 (H)Comment: Testing | 2.2 - 7.1 mg/dL | [facility] | | | | performed at [facility], [address] | | LABORATORY | | | | [address], | | | | | | [place] [address] | | | | + + + + + + + + | Specimen | + + | Blood | + + + + + + + | Performing | Address | City/State/Zipcode | Phone Number | | Organization | | | | + + + + + | [facility] | [address] | [place] [address] | [phone] | + + + + + CBC no Differential (07/23/2019 5:19 AM PST) + + + + + + | Component | Value | Ref Range | Performed | Pathologist | | | | | At | Signature | + + + + + + | WBC | 14.36 (H) | 3.80 - 11.00 | [facility] | | | | | K/uL | LABORATORY | | + + + + + + | RBC | 3.01 (L) | 3.70 - 5.10 | [facility] | | | | | M/uL | LABORATORY | | + + + + + + | Hemoglobin | 9.1 (L) | 11.3 - 15.5 | [facility] | | | | | g/dL | LABORATORY | | + + + + + + | Hematocrit | 28.8 (L) | 34.0 - 46.0 % | [facility] | | | | | | LABORATORY | | + + + + + + | MCV | 95.7 | 80.0 - 100.0 fl | [facility] | | | | | | LABORATORY | | + + + + + + | MCH | 30.2 | 27.0 - 34.0 pg | [facility] | | | | | | LABORATORY | | + + + + + + | MCHC | 31.6 (L) | 32.0 - 35.5 | [facility] | | | | | g/dL | LABORATORY | | + + + + + + | RDW-SD | 43.6 | 37 - 53 fl | [facility] | | | | | | LABORATORY | | + + + + + + | Platelet | 405 (H) | 150 - 400 K/uL | [facility] | | | Count | | | LABORATORY | | + + + + + + | MPV | 10.2Comment: NO NORMAL | fl | [facility] | | | | RANGE ESTABLISHED | | LABORATORY | | + + + + + + | Diff Type | AUTOMATEDComment: | | [facility] | | | | Testing performed at | | LABORATORY | | | | [facility], [address] | | | | | | [place] | | | | | | [address] | | | | + + + + + + + + | Specimen | + + | Blood | + + + + + + + | Performing | Address | City/State/Zipcode | Phone Number | | Organization | | | | + + + + + | [facility] | [address] | [place] [address] | [phone] | + + + + + Basic Metabolic Panel (07/23/2019 5:19 AM PST) + + + + + + | Component | Value | Ref Range | Performed | Pathologist | | | | | At | Signature | + + + + + + | Na | 134 (L) | 135 - 145 | [facility] | | | | | mmol/L | LABORATORY | | + + + + + + | K | 4.4 | 3.5 - 4.9 | [facility] | | | | | mmol/L | LABORATORY | | + + + + + + | Cl | 102 | 99 - 109 mmol/L | [facility] | | | | | | LABORATORY | | + + + + + + | CO2 | 25 | 23 - 32 mmol/L | [facility] | | | | | | LABORATORY | | + + + + + + | Anion Gap | 11 | 5 - 20 mmol/L | [facility] | | | | | | LABORATORY | | + + + + + + | Glucose | 127 (H) | 65 - 99 mg/dL | [facility] | | | | | | LABORATORY | | + + + + + + | BUN | 11 | 8 - 25 mg/dL | [facility] | | | | | | LABORATORY | | + + + + + + | Creatinine | 1.0 | 0.50 - 1.00 | [facility] | | | | | mg/dL | LABORATORY | | + + + + + + | BUN/Creatin | 11 | | [facility] | | | ine Ratio | | | LABORATORY | | + + + + + + | Calcium | 7.4 (L) | 8.5 - 10.5 | [facility] | | | | | mg/dL | LABORATORY | | + + + + + + | Estimated | 54 (L)Comment: GFR <60: | >60 | [facility] | | | GFR | CHRONIC KIDNEY [...] | | | | | performed at [facility], [address] | | | | | | [address] [facility], | | | | | | [place] [address] | | | | + + + + + + + + | Specimen | + + | Blood | + + + + + + + | Performing | Address | City/State/Zipcode | Phone Number | | Organization | | | | + + + + + | [facility] | [address] | [place] [address] | [phone] | + + + + + POC Glucose (07/22/2019 10:30 AM PST) + + + + + + | Component | Value | Ref Range | Performed | Pathologist | | | | | At | Signature | + + + + + + | Glucose, | 134 (H)Comment: Testing | 65 - 99 mg/dL | [facility] | | | POC | performed at [facility];[address] | LABORATORY | | | | [address];[place], [place] | | | | | | [address] | | | | + + + + + + + + | Specimen | + + | | + + + + + + + | Performing | Address | City/State/Zipcode | Phone Number | | Organization | | | | + + + + + | [facility] | [address] | [place] [address] | [phone] | + + + + + FL Ramila (07/22/2019 10:05 AM PST) + + | Specimen | + + | | + + + + + | Impressions | Performed At | + + + | Fluoroscopic service for procedure. Signed by: Lashay | [facility] | | Carlos Mckeon Sign Date/Time: 07/22/2019 10:14 AM | | + + + + + + | Narrative | Performed At | + + + | FLUOROSCOPY C ARM CLINICAL INFORMATION: XLIF Lumbar 09/05. | [facility] | | FINDINGS: Fluoro Time: 1.65 minute(s). Number of images: 2 Air | | | Kerma: 48.34 mGy | | + + + + + | Procedure Note | + + | Nilay Lawrence Results In - 07/22/2019 10:17 AM PST | | FLUOROSCOPY C ARM | | | | CLINICAL INFORMATION: | | XLIF Lumbar 09/05. | | | | FINDINGS: | | Fluoro Time: 1.65 minute(s). Number of images: 2 Air Kerma: 48.34 mGy | | | | | | IMPRESSION: | | Fluoroscopic service for procedure. | | | | | | | | Signed by: Linda Metz Isaac | | Sign Date/Time: 07/22/2019 10:14 AM | + + + +---------+ + + | Performing | Address | City/State/Zipcode | Phone Number | | Organization | | | | + +---------+ + + | [facility] | | | | + +---------+ + + POC Glucose (07/22/2019 6:50 AM PST) + + + + + + | Component | Value | Ref Range | Performed | Pathologist | | | | | At | Signature | + + + + + + | Glucose, | 90Comment: Testing | 65 - 99 mg/dL | [facility] | | | POC | performed at [facility];[address] | | LABORATORY | | | | [address];[place], [place] | | | | | | [address] | | | | + + + + + + + + | Specimen | + + | | + + + + + + + | Performing | Address | City/State/Zipcode | Phone Number | | Organization | | | | + + + + + | [facility] | [address] | [place] [address] | [phone] | + + + + + POC Glucose (07/22/2019 6:31 AM PST) + + + + + + | Component | Value | Ref Range | Performed | Pathologist | | | | | At | Signature | + + + + + + | Glucose, | 99Comment: Testing | 65 - 99 mg/dL | [facility] | | | POC | performed at [facility];[address] | | LABORATORY | | | | [address];[place] | | | | | | [address] | | | | + + + + + + + + | Specimen | + + | | + + + + + + + | Performing | Address | City/State/Zipcode | Phone Number | | Organization | | | | + + + + + | [facility] | [address] | [place] [address] | [phone] | + + + + + Protime INR (07/22/2019 6:30 AM PST) + + + + + + [...] | | | | | performed at [facility];[address] | | | | | | [facility], [place] | | | | | | [address] | | | | + + + + + + + + | Specimen | + + | Blood | + + + + + + + | Performing | Address | City/State/Zipcode | Phone Number | | Organization | | | | + + + + + | [facility] | [address] | [place] [address] | [phone] | + + + + + Basic Metabolic Panel (07/22/2019 6:30 AM PST) + + + + + + | Component | Value | Ref Range | Performed | Pathologist | | | | | At | Signature | + + + + + + | Na | 140 | 135 - 145 | [facility] | | | | | mmol/L | LABORATORY | | + + + + + + | K | 3.7 | 3.5 - 4.9 | [facility] | | | | | mmol/L | LABORATORY | | + + + + + + | Cl | 101 | 99 - 109 mmol/L | [facility] | | | | | | LABORATORY | | + + + + + + | CO2 | 27 | 23 - 32 mmol/L | [facility] | | | | | | LABORATORY | | + + + + + + | Anion Gap | 16 | 5 - 20 mmol/L | [facility] | | | | | | LABORATORY | | + + + + + + | Glucose | 105 (H) | 65 - 99 mg/dL | [facility] | | | | | | LABORATORY | | + + + + + + | BUN | 13 | 8 - 25 mg/dL | [facility] | | | | | | LABORATORY | | + + + + + + | Creatinine | 1.09 (H) | 0.50 - 1.00 | [facility] | | | | | mg/dL | LABORATORY | | + + + + + + | BUN/Creatin | 12 | | [facility] | | | ine Ratio | | | LABORATORY | | + + + + + + | Calcium | 8.9 | 8.5 - 10.5 | [facility] | | | | | mg/dL | LABORATORY | | + + + + + + | Estimated | 49 (L)Comment: GFR <60: | >60 | [facility] | | | GFR | CHRONIC KIDNEY [...] | | | | | performed at [facility];[address] | | | | | [address];[place], [place] | | | | | | [address] | | | | + + + + + + + + | Specimen | + + | Blood | + + + + + + + | Performing | Address | City/State/Zipcode | Phone Number | | Organization | | | | + + + + + | [facility] | [address] | [place] [address] | [phone] | + + + + + Type and Screen (07/22/2019 6:30 AM PST) + + + + + + [...] + + + + + + | BB BAND | [id number] | | [facility] | | | | | | LABORATORY | | + + + + + + | BB BAND | Testing performed at | | [facility] | | | | [facility];[address] | | LABORATORY | | | | [address];[place] [address] | | | | + + + + + + + + | Specimen | + + | Blood | + + + + + + + | Performing | Address | City/State/Zipcode | Phone Number | | Organization | | | | + + + + + | [facility] | [address] | [place] [address] | [phone] | + + + + + documented [...] | + + documented in this encounter Admitting Diagnoses + + | Diagnosis | + [...] | | | + +--------+ +-------+------+------+ | aspirin chewable tablet 81 mg | Given | 07/29/19 | 81 mg | | | | 81 mg, Oral, DAILY, First dose on | | 20 7:48 | | | | | 07/25/19 at 0900, Do not cut | | AM PST | | | | | or crush., | | | | | | + +--------+ +-------+------+------+ +-------+ +-------+---+---+ | Given | 07/28/19 | 81 mg | | | | | 20 7:45 | | | | | | AM PST | | | | +-------+ +-------+---+---+ | Given | 07/27/19 | 81 mg | | | | | 20 8:05 | | | | | | AM PST | | | | +-------+ +-------+---+---+ +---+---+ | | | +---+---+ + +-------+ +-------+---+---+ | atorvaSTATin (LIPITOR) tablet | Given | 07/28/19 | 40 mg | | | | 40 mg 40 mg, Oral, NIGHTLY, | | 20 8:43 | | | | | First dose on Sat07/22/19 at 2100 | | PM PST | | | | + +-------+ +-------+---+---+ +-------+ +-------+---+---+ | Given | 07/27/19 | 40 mg | | | | | 20 8:34 | | | | | | PM PST | | | | +-------+ +-------+---+---+ | Given | 07/26/19 | 40 mg | | | | | 20 8:05 | | | | | | PM PST | | | | +-------+ +-------+---+---+ +---+---+ | | | +---+---+ + +---------+ +---+-------+---+ | balanced electrolytes in water | New Bag | 07/22/19 | | 100 | | | (PLASMALYTE-148/NORMOSOL-R) | | 20 6:51 | | mL/hr | | | infusion at 100 mL/hr, | | AM PST | | | | | Intravenous, CONTINUOUS, Starting | | | | | | | Sat07/22/19 at 0630 | | | | | | + +---------+ +---+-------+---+ +---+---+ | | | +---+---+ + +---------+ +-----+-------+---+ | ceFAZolin in dextrose (ANCEF, | New Bag | 07/24/19 | 1 g | 100 | | | KEFZOL) IVPB 1 g 1 g, | | 20 6:09 | | mL/hr | | | Intravenous, Administer over 30 | | AM PST | | | | | Minutes, EVERY 8 HOURS (3 times | | | | | | | per day), First dose on Sat | | | | | | | 07/22/19 at 1400, Keep in | | | | | | | refrigerator., Indications: | | | | | | | Surgical Prophylaxis | | | | | | + +---------+ +-----+-------+---+ +---------+ +-----+-------+---+ | New Bag | 07/23/19 | 1 g | 100 | | | | 20 9:04 | | mL/hr | | | | PM PST | | | | +---------+ +-----+-------+---+ | New Bag | 07/23/19 | 1 g | 100 | | | | 20 2:53 | | mL/hr | | | | PM PST | | | | +---------+ +-----+-------+---+ +---+---+ | | | +---+---+ + +-------+ +--------+---+---+ | colchicine tablet 0.6 mg 0.6 | Given | 07/29/19 | 0.6 mg | | | | mg, Oral, 2 TIMES DAILY, First | | 20 7:48 | | | | | dose on Sat07/28/19 at 2100, Hold | | AM PST | | | | | for diarrhea., | | | | | | + +-------+ +--------+---+---+ +-------+ +--------+---+---+ | Given | 07/28/19 | 0.6 mg | | | | | 20 8:42 | | | | | | PM PST | | | | +-------+ +--------+---+---+ +---+---+ | | | +---+---+ + +-------+ +---------+---+---+ | cyanocobalamin (VITAMIN B-12) | Given | 07/29/19 | 100 mcg | | | | tablet 100 mcg 100 mcg, Oral, | | 20 7:48 | | | | | DAILY, First dose on Sat07/22/19 | | AM PST | | | | | at 1400 | | | | | | + +-------+ +---------+---+---+ +-------+ +---------+---+---+ | Given | 07/28/19 | 100 mcg | | | | | 20 7:46 | | | | | | AM PST | | | | +-------+ +---------+---+---+ | Given | 07/27/19 | 100 mcg | | | | | 20 8:05 | | | | | | AM PST | | | | +-------+ +---------+---+---+ +---+---+ | | | +---+---+ + +-------+ +--------+---+---+ | docusate sodium (COLACE) | Given | 07/24/19 | 100 mg | | | | capsule 100 mg 100 mg, Oral, 2 | | 20 9:00 | | | | | TIMES DAILY, First dose on Sat | | AM PST | | | | | 07/22/19 at 1330, First line agent | | | | | | | for constipation, Post-op/Phase | | | | | | | II | | | | | | + +-------+ +--------+---+---+ +-------+ +--------+---+---+ | Given | 07/23/19 | 100 mg | | | | | 20 9:04 | | | | | | PM PST | | | | +-------+ +--------+---+---+ | Given | 07/22/19 | 100 mg | | | | | 20 8:24 | | | | | | PM PST | | | | +-------+ +--------+---+---+ +---+---+ | | | +---+---+ + +-------+ +--------+---+---+ | docusate sodium (COLACE) | Given | 07/29/19 | 200 mg | | | | capsule 200 mg 200 mg, Oral, | | 20 7:46 | | | | | TIMES DAILY, First dose (after | | AM PST | | | | | last modification) on Sat07/24/19 | | | | | | | at 2100, First line agent for | | | | | | | constipation, Post-op/Phase II | | | | | | + +-------+ +--------+---+---+ +-------+ +--------+---+---+ | Given | 07/28/19 | 200 mg | | | | | 20 8:42 | | | | | | PM PST | | | | +-------+ +--------+---+---+ | Given | 07/28/19 | 200 mg | | | | | 20 7:47 | | | | | | AM PST | | | | +-------+ +--------+---+---+ +---+---+ | | | +---+---+ + +-------+ +-------+---+---+ | DULoxetine (CYMBALTA) DR | Given | 07/29/19 | 20 mg | | | | capsule 20 mg 20 mg, Oral, | | 20 7:47 | | | | | DAILY, First dose on [facility] 07/23/19 | | AM PST | | | | | at 0900, Do not open capsule., | | | | | | + +-------+ +-------+---+---+ +-------+ +-------+---+---+ | Given | 07/28/19 | 20 mg | | | | | 20 7:47 | | | | | | AM PST | | | | +-------+ +-------+---+---+ | Given | 07/27/19 | 20 mg | | | | | 20 8:05 | | | | | | AM PST | | | | +-------+ +-------+---+---+ +---+---+ | | | +---+---+ + +---------+ +---------+---+ + | fentaNYL (DURAGESIC) 25 mcg/hr | Patch | 07/28/19 | 1 patch | | Arm-Righ | | 1 patch 1 patch, Transdermal, | Applied | 20 1:42 | | | t Upper | | EVERY 72 HOURS, First dose on Wed | | PM PST | | | | | 07/22/19 at 1430 | | | | | | + +---------+ +---------+---+ + + + +---------+---+ + | Patch Applied | 07/25/19 | 1 patch | | Shoulder | | | 20 3:21 | | | -Left | | | PM PST | | | | + + +---------+---+ + | Patch Applied | 07/22/19 | 1 patch | | Back-Rig | | | 20 2:07 | | | ht Upper | | | PM PST | | | | + + +---------+---+ + +---+---+ | | | +---+---+ + +-------+ +--------+---+---+ | fentaNYL (PF) injection 25-50 | Given | 07/22/19 | 25 mcg | | | | mcg 25-50 mcg, Intravenous, | | 20 10:51 | | | | | EVERY 5 MIN PRN, Pain, Initial | | AM PST | | | | | postop medication for URGENT PAIN | | | | | | | OR ESCALATING PAIN, Starting Wed | | | | | | | 07/22/19 at 1009, For 4 doses, | | | | | | | First dose must be lowest dose. | | | | | | | Use Pasero Sedation Scale. | | | | | | | [Opioid tolerant = One week or | | | | | | | longer, alwojf-dqf-kvvun use of | | | | | | | at least the following DAILY | | | | | | | dose: 60mg oral morphine, 60mg | | | | | | | oral hydrocodone, 30mg oral | | | | | | | oxycodone, 8mg oral | | | | | | | hydromorphone, fentanyl patch | | | | | | | 25mcg/hr, or equivalent dose of | | | | | | | another opioid], Recovery/Phase I | | | | | | + +-------+ +--------+---+---+ +-------+ +--------+---+---+ | Given | 07/22/19 | 50 mcg | | | | | 20 10:46 | | | | | | AM PST | | | | +-------+ +--------+---+---+ | Given | 07/22/19 | 25 mcg | | | | | 20 10:20 | | | | | | AM PST | | | | +-------+ +--------+---+---+ +---+---+ | | | +---+---+ + +-------+ +-------+---+---+ | furosemide (LASIX) tablet 20 mg | Given | 07/29/19 | 20 mg | | | | 20 mg, Oral, DAILY, First dose | | 20 7:46 | | | | | on 07/22/19 at 1330 | | AM PST | | | | + +-------+ +-------+---+---+ +-------+ +-------+---+---+ | Given | 07/28/19 | 20 mg | | | | | 20 7:47 | | | | | | AM PST | | | | +-------+ +-------+---+---+ | Given | 07/27/19 | 20 mg | | | | | 20 8:05 | | | | | | AM PST | | | | +-------+ +-------+---+---+ +---+---+ | | | +---+---+ + +-------+ +--------+---+---+ | gabapentin (NEURONTIN) capsule | Given | 07/29/19 | 100 mg | | | | 100 mg 100 mg, Oral, 2 TIMES | | 20 7:45 | | | | | DAILY, First dose on Sat07/22/19 | | AM PST | | | | | at 2100 | | | | | | + +-------+ +--------+---+---+ +-------+ +--------+---+---+ | Given | 07/28/19 | 100 mg | | | | | 20 8:43 | | | | | | PM PST | | | | +-------+ +--------+---+---+ | Given | 07/28/19 | 100 mg | | | | | 20 7:46 | | | | | | AM PST | | | | +-------+ +--------+---+---+ +---+---+ | | | +---+---+ + +-------+ +--------+---+---+ | HYDROmorphone (DILAUDID) | Given | 07/22/19 | 0.6 mg | | | | injection 0.2-0.6 mg 0.2-0.6 mg, | | 20 10:42 | | | | | Intravenous, EVERY 5 MIN PRN, | | AM PST | | | | | Pain, Starting 07/22/19 at | | | | | | | 1009, First dose must be lowest | | | | | | | dose, can increase subsequent | | | | | | | doses by 0.2mg within dosing | | | | | | | range. If patient meets opioid | | | | | | | tolerant definition, can start | | | | | | | with 0.4mg dose. [Maximum total | | | | | | | PACU dose 2 mg] Use Pasero | | | | | | | Sedation Scale. [Opioid tolerant | | | | | | | = One week or longer, | | | | | | | rcyfgp-tcu-hruuh use of at least | | | | | | | the following DAILY dose: 60mg | | | | | | | oral morphine, 60mg oral | | | | | | | hydrocodone, 30mg oral oxycodone, | | | | | | | 8mg oral hydromorphone, fentanyl | | | | | | | patch 25mcg/hr, or equivalent | | | | | | | dose of another opioid], | | | | | | | Recovery/Phase I | | | | | | + +-------+ +--------+---+---+ +-------+ +--------+---+---+ | Given | 07/22/19 | 0.4 mg | | | | | 20 10:32 | | | | | | AM PST | | | | +-------+ +--------+---+---+ | Given | 07/22/19 | 0.2 mg | | | | | 20 10:24 | | | | | | AM PST | | | | +-------+ +--------+---+---+ +---+---+ | | | +---+---+ + +-------+ +-------+---+---+ | indomethacin (INDOCIN) capsule | Given | 07/29/19 | 50 mg | | | | 50 mg 50 mg, Oral, 3 TIMES DAILY | | 20 12:30 | | | | | WITH MEALS, First dose on Sat | | PM PST | | | | | 07/28/19 at 1700, Give with food., | | | | | | | | | | | | | + +-------+ +-------+---+---+ +-------+ +-------+---+---+ | Given | 07/29/19 | 50 mg | | | | | 20 7:48 | | | | | | AM PST | | | | +-------+ +-------+---+---+ | Given | 07/28/19 | 50 mg | | | | | 20 3:42 | | | | | | PM PST | | | | +-------+ +-------+---+---+ +---+---+ | | | +---+---+ + +-------+ +--------+---+---+ | levothyroxine (SYNTHROID) | Given | 07/29/19 | 25 mcg | | | | tablet 25 mcg 25 mcg, Oral, | | 20 7:47 | | | | | DAILY, First dose on Sat07/23/19 | | AM PST | | | | | at 0900, Give before breakfast., | | | | | | + +-------+ +--------+---+---+ +-------+ +--------+---+---+ | Given | 07/28/19 | 25 mcg | | | | | 20 7:45 | | | | | | AM PST | | | | +-------+ +--------+---+---+ | Given | 07/27/19 | 25 mcg | | | | | 20 8:05 | | | | | | AM PST | | | | +-------+ +--------+---+---+ +---+---+ | | | +---+---+ + +-------+ +------+---+---+ | lisinopril (PRINIVIL, ZESTRIL) | Given | 07/29/19 | 5 mg | | | | tablet 5 mg 5 mg, Oral, DAILY, | | 20 7:48 | | | | | First dose on [facility] 07/23/19 at 0900 | | AM PST | | | | + +-------+ +------+---+---+ +-------+ +------+---+---+ | Given | 07/28/19 | 5 mg | | | | | 20 7:46 | | | | | | AM PST | | | | +-------+ +------+---+---+ | Given | 07/23/19 | 5 mg | | | | | 20 8:01 | | | | | | AM PST | | | | +-------+ +------+---+---+ +---+---+ | | | +---+---+ + +-------+ +--------+---+---+ | metFORMIN (GLUCOPHAGE) tablet | Given | 07/28/19 | 500 mg | | | | 500 mg 500 mg, Oral, NIGHTLY, | | 20 8:43 | | | | | First dose on Sat07/22/19 at | | PM PST | | | | | 2100, Follow hospital guidelines | | | | | | | to determine if metFORMIN should | | | | | | | be held following procedures | | | | | | | using IV iodinated contrast., | | | | | | + +-------+ +--------+---+---+ +-------+ +--------+---+---+ | Given | 07/27/19 | 500 mg | | | | | 20 8:34 | | | | | | PM PST | | | | +-------+ +--------+---+---+ | Given | 07/26/19 | 500 mg | | | | | 20 8:05 | | | | | | PM PST | | | | +-------+ +--------+---+---+ +---+---+ | | | +---+---+ + +-------+ +--------+---+---+ | methocarbamol (ROBAXIN) tablet | Given | 07/28/19 | 500 mg | | | | 500 mg 500 mg, Oral, EVERY 6 | | 20 8:42 | | | | | HOURS PRN, Muscle spasms, | | PM PST | | | | | Starting 07/22/19 at 1129, | | | | | | | First line agent, Post-op/Phase | | | | | | | II | | | | | | + +-------+ +--------+---+---+ +-------+ +--------+---+---+ | Given | 07/28/19 | 500 mg | | | | | 20 1:39 | | | | | | PM PST | | | | +-------+ +--------+---+---+ | Given | 07/28/19 | 500 mg | | | | | 20 6:48 | | | | | | AM PST | | | | +-------+ +--------+---+---+ +---+---+ | | | +---+---+ + +-------+ +------+---+---+ | ondansetron (ZOFRAN ODT) | Given | 07/25/19 | 4 mg | | | | disintegrating tablet 4 mg 4 mg, | | 20 12:30 | | | | | Oral, EVERY 6 HOURS PRN, Nausea, | | PM PST | | | | | Vomiting, Starting 07/22/19 | | | | | | | at 1129, First line agent, | | | | | | | Post-op/Phase II | | | | | | + +-------+ +------+---+---+ +---+---+ | | | +---+---+ + +-------+ +-------+---+---+ | oxyCODONE (ROXICODONE) tablet | Given | 07/29/19 | 10 mg | | | | 2.5-10 mg 2.5-10 mg, Oral, EVERY | | 20 12:39 | | | | | 3 HOURS PRN, Pain, Starting Wed | | PM PST | | | | | 07/22/19 at 1129, First dose must | | | | | | | be the lowest dose, can titrate | | | | | | | to effective dose by repeat of | | | | | | | lowest dose every 60 minutes prn | | | | | | | pain, may not exceed maximum dose | | | | | | | ordered per interval. Use Pasero | | | | | | | Sedation Scale., Post-op/Phase | | | | | | | II | | | | | | + +-------+ +-------+---+---+ +-------+ +-------+---+---+ | Given | 07/29/19 | 10 mg | | | | | 20 5:33 | | | | | | AM PST | | | | +-------+ +-------+---+---+ | Given | 07/28/19 | 10 mg | | | | | 20 3:27 | | | | | | PM PST | | | | +-------+ +-------+---+---+ +---+---+ | | | +---+---+ + +-------+ +-------+---+---+ | pantoprazole (PROTONIX) DR | Given | 07/29/19 | 40 mg | | | | tablet 40 mg 40 mg, Oral, DAILY | | 20 5:33 | | | | | BEFORE BREAKFAST, First dose on | | AM PST | | | | | 07/22/19 at 1330, Indication: | | | | | | | GERD | | | | | | + +-------+ +-------+---+---+ +-------+ +-------+---+---+ | Given | 07/28/19 | 40 mg | | | | | 20 6:48 | | | | | | AM PST | | | | +-------+ +-------+---+---+ | Given | 07/27/19 | 40 mg | | | | | 20 6:39 | | | | | | AM PST | | | | +-------+ +-------+---+---+ +---+---+ | | | +---+---+ + +-------+ +------+---+---+ | polyethylene glycol (MIRALAX) | Given | 07/29/19 | 17 g | | | | powder 17 g 17 g, Oral, DAILY, | | 20 7:49 | | | | | First dose on Sat07/22/19 at | | AM PST | | | | | 1330, If docusate and senna | | | | | | | ineffective or not ordered, | | | | | | | Post-op/Phase II | | | | | | + +-------+ +------+---+---+ +-------+ +------+---+---+ | Given | 07/28/19 | 17 g | | | | | 20 7:44 | | | | | | AM PST | | | | +-------+ +------+---+---+ | Given | 07/27/19 | 17 g | | | | | 20 8:05 | | | | | | AM PST | | | | +-------+ +------+---+---+ +---+---+ | | | +---+---+ + +-------+ +--------+---+---+ | potassium chloride (KLOR-CON) | Given | 07/29/19 | 10 mEq | | | | ER tablet 10 mEq 10 mEq, Oral, | | 20 7:47 | | | | | DAILY, First dose on Sat07/22/19 | | AM PST | | | | | at 1330, May take with food to | | | | | | | decrease GI upset., | | | | | | + +-------+ +--------+---+---+ +-------+ +--------+---+---+ | Given | 07/28/19 | 10 mEq | | | | | 20 7:45 | | | | | | AM PST | | | | +-------+ +--------+---+---+ | Given | 07/27/19 | 10 mEq | | | | | 20 8:05 | | | | | | AM PST | | | | +-------+ +--------+---+---+ +---+---+ | | | +---+---+ + +-------+ +-------+---+---+ | povidone-iodine 5 % external | Given | 07/22/19 | 4 mLs | | | | solution Topical, PRN, Other, | | 20 6:49 | | | | | pre-op, Starting Sat07/22/19 at | | AM PST | | | | | 0613, For 1 dose | | | | | | + +-------+ +-------+---+---+ +---+---+ | | | +---+---+ + +-------+ +--------+---+---+ | senna (SENOKOT) tablet 8.6 mg | Given | 07/29/19 | 8.6 mg | | | | 8.6 mg, Oral, 2 TIMES DAILY, | | 20 7:48 | | | | | First dose on Sat07/22/19 at | | AM PST | | | | | 1330, If docusate ineffective or | | | | | | | not ordered, Post-op/Phase II | | | | | | + +-------+ +--------+---+---+ +-------+ +--------+---+---+ | Given | 07/28/19 | 8.6 mg | | | | | 20 8:43 | | | | | | PM PST | | | | +-------+ +--------+---+---+ | Given | 07/28/19 | 8.6 mg | | | | | 20 7:46 | | | | | | AM PST | | | | +-------+ +--------+---+---+ +---+---+ | | | +---+---+ + +---------+ +---+-------+---+ | sodium chloride 0.45% (1/2 NS) | New Bag | 07/23/19 | | 100 | | | infusion at 100 mL/hr, | | 20 11:45 | | mL/hr | | | Intravenous, CONTINUOUS, Starting | | AM PST | | | | | 07/22/19 at 1145, | | | | | | | Post-op/Phase II | | | | | | + +---------+ +---+-------+---+ +---------+ +---+-------+---+ | New Bag | 07/22/19 | | 100 | | | | 20 8:28 | | mL/hr | | | | PM PST | | | | +---------+ +---+-------+---+ | New Bag | 07/22/19 | | 100 | | | | 20 11:33 | | mL/hr | | | | AM PST | | | | +---------+ +---+-------+---+ +---+---+ | | | +---+---+ + +---------+ +---+-------+---+ | sodium chloride 0.9% (NS) 1,000 | New Bag | 07/23/19 | | 1000 | | | mL bolus Intravenous, | | 20 7:58 | | mL/hr | | | Administer over 1 Hours, ONCE, | | AM PST | | | | | Adilene 07/23/19 at 0800, For 1 dose | | | | | | + +---------+ +---+-------+---+ +---+---+ | | | +---+---+ + +---------+ +--------+-------+---+ | sodium chloride 0.9% (NS) bolus | New Bag | 07/24/19 | 1,000 | 500 | | | 1,000 mL 1,000 mL, Intravenous, | | 20 9:59 | mLs | mL/hr | | | Administer over 2 Hours, ONCE, | | AM PST | | | | | 07/24/19 at 1015, For 1 dose | | | | | | + +---------+ +--------+-------+---+ +---+---+ | | | +---+---+ documented in this encounter
--- OUTSIDE RECORDS SUMMARY | ~2019-10-27 | XMS | Encounter Summary ---
Demographics + + + | Address | [address] | | | [place] [address] | + + + | Home Phone [...] [place], | | | | | [place] [address] | | + + + + + | Kellen Briones | ECON | [place], [place] | | | | | [address] | | + + + + + Care Team Providers + +------+ + | Care Chemical Unit Operator Name | Role | Phone | [...] + | 08/10/ | Refill | [facility] | Irving Becerril, | Medication Refill | | 2016 | | NEUROSURGERY [address] | DO [address] | | | | | [address] [facility] | [address] [place], [place] | | | | | [place], [place] | [id number] | | | | | [address] | | | | | | [phone] | | | +--------+--------+ + + + [...]
--- OUTSIDE RECORDS SUMMARY | ~2019-10-27 | XMS | Encounter Summary ---
Demographics + + + | Address | [address] | | | [place] [address] | + + + | Home Phone | | + + + | Preferred Language | Unknown | + + + | Marital Status | | + + + | Confucianism Affiliation | 1041 | + + + | Race | Unknown | + + + | Ethnic Group | Unknown | + + + Author + + + | Author | [facility] | | | and [place] | + + + | Organization | [facility] | | | and [place] | + + + | Address | Unknown | + + + | Phone | Unavailable | + + + Support + + + + + | Name | Relationship | Address | Phone | + + + + + | Lucy Winchester | ECON | [place], | | | | | [place] [address] | | + + + + + | Kellen Briones | ECON | [place], [place] | | | | | [address] | | + + + + + Care Team Providers + +------+ + | Care Customer Service Leader Name | Role | Phone | [...] | | | Procedures | [address] | [place] [facility] | | | | | [place] Nuclear | [address] | Med [address] | | | | | Stress Test | [address] | [address] | | | | | (Vasodilator | [place], [place] | [place] | | | | | ) | [address] | [address] | | | | | | Phone: | Phone: | | | | | | [phone] | [phone] | | | | | | Fax: | Fax: | | | | | | [phone] | [phone] | +--------+--------+ + + + + Encounter Details +--------+ + + + + | Date | Type | Department | Care Team | Description | +--------+ + + + + | 02/17/ | Hospital | [facility] | TinajeroFlorindayDO | | | 2019 | Encounter | CARDIOLOGY [place] | [address] | | | | | NUC MED [address] | [address] [place], [place] | | | | | [address] | [address] | | | | | [place], [place] | | | | | | [address] | | | | | | [phone] | | | +--------+ + + + [...]
--- OUTSIDE RECORDS SUMMARY | ~2019-10-27 | XMS | Encounter Summary ---
Demographics + + + | Address | [address] | | | [place] [address] | + + + | Home Phone [...] [place], | | | | | [place] [address] | | + + + + + | Kellen Briones | ECON | [place], [place] | | | | | [address] | | + + + + + Care Team Providers + +------+ + | Care Car Refinisher Name | Role | Phone | + [...] + + | 01/23/ | Telephone | [facility] | Mono Diaz, | Medication Question | | 2017 | | PHYSIATRY [address] | PA-C [address] | | | | | [address] | [address] [facility] | | | | | [place], [place] | [place] [address] | | | | | [address] | [phone] | | | | | [phone] | | | +--------+ + + + [...]
--- OUTSIDE RECORDS SUMMARY | ~2019-10-27 | XMS | Clinical Summary ---
Demographics + + + | Address | [address] | | | [place] [address] | + + + | Home Phone [...] [place], | | | | | [place] [address] | | + + + + + | Kellen Briones | ECON | [place] | | | | | [address] | | + + + + + Care Team Providers + +------+ + | Care Metallographer Name | Role | Phone | + [...] 40 mg | nightly. | | | 20 | | e | | tablet | | | | 18 | | | + + + +---------+------+------+-------+ | gabapentin | Take 100 mg by mouth | | 1 | 09/0 | | Activ | | (NEURONTIN) 100 mg | 2 times daily. | | | 20 | | e | | capsule | [...] 90 | as needed. | | | 5/20 | | e | | mcg/puff inhaler | | | | 18 | | | + + + +---------+------+------+-------+ | DULoxetine | 20 mg. | | 3 | 02/2 | | Activ | | (CYMBALTA) [address] | | | | 0/20 | | e | | capsule | | | | 19 | | | + + + +---------+------+------+-------+ | potassium chloride | Take 10 mEq by | | 0 | 07/1 | 07/1 | Activ | | (KLOR-CON) 10 MEQ | mouth. | | | 8 | 12/20 | e | | ER tablet | | | | 19 | 20 | | + + + +---------+------+------+-------+ | furosemide (LASIX) | Take 20 mg by mouth. | | 0 | 12/01 | 12/01 | Activ | | 20 mg tablet | | | | 01/20 | 12/20 | e | | | [...] tablet by | 90 | 3 | 10 | | Activ | | (PRINIVIL, ZESTRIL) | mouth Daily. 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 | | | | | e | + + + +---------+------+------+-------+ | Calcium 600-200 | Take 1 tablet by | | 0 | | | Activ | | MG-UNIT TABS | mouth Daily. | | | | | e | + + + +---------+------+------+-------+ | senna (SENOKOT) | Take 1 tablet by | 60 | 1 | 02/2 | | Activ | | 8.6 mg tablet | mouth 2 times daily | tablet | | 2/20 | | e | | | (before meals). | | | 20 | | | + + + +---------+------+------+-------+ | polyethylene | Take 1 diluted | 14 | 1 | 02/2 | | Activ | | glycol (MIRALAX) | packet by mouth | packet | | 2/20 | | e | | packet | Daily. | | | 20 | | | + + + +---------+------+------+-------+ | docusate sodium | Take 200 mg by mouth | 30 | 0 | 02/2 | | Activ | | (COLACE) 100 MG | 2 times daily. | capsule | | 2/20 | | e | | capsule | | | | 20 | | | + + + +---------+------+------+-------+ | indomethacin | Take 1 capsule by | 60 | 0 | 02/2 | | Activ | | (INDOCIN) 50 MG | mouth 2 times daily | capsule | | 6/20 | | e | | capsule | (with breakfast & | | | 20 | | | | | dinner). | | | | | | + + + +---------+------+------+-------+ | colchicine 0.6 mg | Take 1 tablet by | 30 | 0 | 02/2 | | Activ | | tablet | mouth 2 times daily. | tablet | | 6/20 | | e | | | | | | 20 | | | + + + +---------+------+------+-------+ | oxyCODONE | Take 1 tablet by | 60 | 0 | 04/1 | | Activ | | (ROXICODONE) 5 mg | mouth every 8 hours | tablet | | 5/20 | | e | | tabletIndications: | as needed (FOR | | | 20 | | | | Spondylolisthesis of | MODERATE TO SEVERE | | | | | | | lumbar region, S/P | PAIN). | | | | | | | lumbar spinal fusion | | | | | | | + + + +---------+------+------+-------+ | methocarbamol | Take 1 tablet by | 60 | 1 | 04/1 | | Activ | | (ROBAXIN) 500 mg | mouth 3 times daily | tablet | | 6/20 | | e | | tabletIndications: | as needed for Muscle | | | 20 | | | | Spondylolisthesis of | spasms. | | | | | | | lumbar region, S/P | | | | | | | | lumbar spinal fusion | | | | | | | + + + +---------+------+------+-------+ Active Problems + + + | Problem | Noted Date | + + + | Chronic pain syndrome | 01/31/2018 | + + + | H/O Syncope & collape | 03/30/2016 | + + + | H/O CVA/stroke | 03/30/2016 | + + + | H/O HI (myocardial infarction) | 03/30/2016 | + + [...] 07/23/2012 | + + + | Lumbar degenerative disc disease | 07/23/2012 | + + + | Spinal stenosis of lumbar region with dswoodqhmyhqh-V3-J4 level | 07/23/2012 | | moderately severe [...] | Hyperlipidemia | | + +---+ | HI (myocardial infarction) | | + +---+ | GERD (gastroesophageal reflux disease) | | + +---+ | Asthma | | + +---+ | Snoring | | + +---+ | Chronic narcotic use | | + +---+ Encounters +--------+ + + + + | Date | Type | Specialty | Care Team | Description | +--------+ + + + + | 09/15/ | Telephone | Orthopedic Surgery | Cat Ware | Appointment | | 2020 | | | [facility] | (Arnulfo); | | | | | | Medication Question | +--------+ + + + + | 09/01/ | Refill | Orthopedic Surgery | Monster White MD | Medication Refill | | 2019 | | | | | +--------+ + + + + | 08/04/ | Clinical | Neurosurgery | | S/P lumbar spinal | | 2019 | Support | | | fusion | +--------+ + + + + | 07/30/ | Telephone | Orthopedic Surgery | Monster White MD | Medication Question | | 2019 | | | | | +--------+ + + + + | 07/22/ | Hospital | General Surgery | Monster White MD | Type 1 diabetes | | 2019 - | Encounter | | | mellitus without | | | | | | complication ([facility]); | | 07/29/ | | | | Lumbar degenerative | | 2019 | | | | disc disease; | | | | | | 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 | +--------+ + + + + from [...] disorder, snores | + + +------+ + | Malig hypertherm | Neg Hx | | | + + +------+ + [...] + + + | Blood Pressure | 148/75 [...] | | | Dtap/Tdap/Td (1 - | 3 | | | | Tdap) | | | | + + + + + | Urine Drug Screening | | | | | | 8 | [...] + + | Hemoglobin A1c | | 07/08/2019, 02/02/2018 | | | Screening | 0 | | | + + + + + | Vaccine: Influenza | Completed | 05/14/2019 | | + + + + + [...] / Lot | + +--------+--------+ +--------+--------+--------+ | Bone Chip [facility] 15cc | Bone | N/A: | MUSCULOSKEL | | 04/20/ | [id number] | | Frzdr - | | Spine | ETAL | | 2021 | | | [id number]: | | Lumbar | TRANSPLA - | | | /[id number] | | Qty: 1 on 07/22/2019 by Christopher, | | | [facility] | | | [id number] | | MD Monster at [facility] | | | | | | 032 | | [facility] | | | | | | /NA | + +--------+--------+ +--------+--------+--------+ | Cage Funmilayo Ptc [id number] - | Generi | Anteri | [employer] - | | 10/20/ | [id number] | | [id number]: Qty: 1 on | c | or: | MEDT | | 2023 | 4 / | | 03/30/2016 by Irving Becerril | | Spine | | | | /[id number] | | DO Chloe at [facility] | | Cervic | | | | | | [facility] | | al | | | | | + +--------+--------+ +--------+--------+--------+ | Cage Funmilayo Ptc [id number] - | Generi | Anteri | [employer] - | | 01/03/ | [id number] | | [id number]: Qty: 1 on | c | or: | MEDT | | 2022 | 4 / | | 03/30/2016 by Irving Becerril | | Spine | | | | /[id number] | | A, DO at [facility] | | Cervic | | | | | | [facility] | | al | | | | | + +--------+--------+ +--------+--------+--------+ | Cage Funmilayo Ptc [id number] - | Generi | Anteri | [employer] - | | 10/20/ | [id number] | | [id number]: Qty: 1 on | c | or: | MEDT | | 2023 | 4 / | | 03/30/2016 by Irving Becerril | | Spine | | | | /[id number] | | A, DO at [facility] | | Cervic | | | | | | [facility] | | al | | | | | + +--------+--------+ +--------+--------+--------+ | Cage Funmilayo Ptc [id number] - | Generi | Anteri | [employer] - | | 10/20/ | [id number] | | [id number]: Qty: 1 on | c | or: | MEDT | | 2023 | 4 / | | 03/30/2016 by Irving Becerril | | Spine | | | | /[id number] | | A, DO at [facility] | | Cervic | | | | | | [facility] | | al | | | | | + +--------+--------+ +--------+--------+--------+ | Melvin Mod - SnaImplanted: | Generi | | NUVASIVE - | | | [id number] | | Qty: 4 on 07/22/2019 by Christopher, | c | | NVSV | | | 11 /NA | | MD Monster at [facility] | | | | | | /NA | | [facility] | | | | | | | + +--------+--------+ +--------+--------+--------+ | Josiah Mas Ti Lord 5.5x40mm - | Generi | | NUVASIVE - | | | [id number] | | SnaImplanted: Qty: 2 on | c | | NVSV | | | 40 /NA | | 07/22/2019 by Monster White, | | | | | | /NA | | at [facility] | | | | | | | [facility] | | | | | | | + +--------+--------+ +--------+--------+--------+ | Putty Bone Dbm Grftn 2.5cc - | Graft | Anteri | [employer] - | | 06/30/ | [id number] | | [id number]: Qty: 1 | | or: | MEDT | | 2019 | | | on 03/30/2016 by Jerrica, | | Spine | | | | /[id number] | | Irving Corona DO at [facility] | | Cervic | | | | 6-016 | | [facility] | | al | | | | / | + +--------+--------+ +--------+--------+--------+ | Strip Mstrgrft 10x2.0x.6 12cc | Graft | N/A: | [employer] - | | 12/31/ | [id number] | | - SnaImplanted: Qty: 1 on | | Spine | MEDT | | 2021 | 0 /NA | | 07/22/2019 by Monster White, | | Lumbar | | | | /[id number] | | at [facility] | | | | | | 9J4 | | [facility] | | | | | | | + +--------+--------+ +--------+--------+--------+ | Bone Xgrft Infus Kts Sm - | Graft | N/A: | [employer] - | | 01/31/ | [id number] | | SnaImplanted: Qty: 1 on | | Spine | MEDT | | 2020 | 0 /NA | | 07/22/2019 by Monster White, | | Lumbar | | | | /[id number] | | at [facility] | | | | | | [id number] | | [facility] | | | | | | | + +--------+--------+ +--------+--------+--------+ | Plate Ant [place] Cerv 75mm | Plate | Anteri | [employer] - | | | [id number] | | - [id number]: Qty: 1 | | or: | MEDT | | | 5 / / | | on 03/30/2016 by Jerrica, | | Spine | | | | | | Irving Corona DO at [facility] | | Cervic | | | | | | [facility] | | al | | | | | + +--------+--------+ +--------+--------+--------+ | Screw Slf-Drl V/A 4.0x16mm - | Screw | Anteri | SOFAMOR | | | [id number] | | [id number]: Qty: 5 on | | or: | DANEK - DIV | | | 6 / / | | 03/30/2016 by Irving Becerril | | Spine | [facility] | | | | | DO Chloe at [facility] | | Cervic | - [facility] | | | | | [facility] | | al | | | | | + +--------+--------+ +--------+--------+--------+ | Screw Slf-Drl V/A 4.0x17mm - | Screw | Anteri | SOFAMOR | | | [id number] | | [id number]: Qty: 4 on | | or: | DANEK - DIV | | | | | 03/30/2016 by Irving Becerril | | Spine | [facility] | | | | | A, DO at [facility] | | Cervic | - [facility] | | | | | [facility] | | al | | | | | + +--------+--------+ +--------+--------+--------+ | Screw Slf- V/A 4.5x15mm - | Screw | Anteri | [employer] - | | | [id number] | | [id number]: Qty: 1 on | | or: | MEDT | | | / | | 03/30/2016 by Irving Becerril | | Spine | | | | | | A, DO at [facility] | | Cervic | | | | | | [facility] | | al | | | | | + +--------+--------+ +--------+--------+--------+ | Screw Alvina Arreguin | Screw | | NUVASIVE - | | | [id number] | | 5.5mm - SnaImplanted: Qty: 4 | | | NVSV | | | 00 /NA | | on 07/22/2019 by Christopher, | | | | | | /NA | | MD Monster at [facility] | | | | | | | | [facility] | | | | | | | + +--------+--------+ +--------+--------+--------+ | Cage Mod Xlw 15deg [id number] | | N/A: | NUVASIVE - | | 01/14/ | [id number] | | - SnaImplanted: Qty: 1 on | | Spine | NVSV | | 2023 | 5P2 | | 07/22/2019 by Monster White, | | Lumbar | | | | /NA | | MD at [facility] | | | | | | /[id number] | | [facility] | | | | | | 5 | + +--------+--------+ +--------+--------+--------+ | Screw Shk Mas Mod 6.5x50mm 2c | | | NUVASIVE - | | | [id number] | | - SnaImplanted: Qty: 2 on | | | NVSV | | | 50 /NA | | 07/22/2019 by Monster White, | | | | | | /NA | | MD at [facility] | | | | | | | | [facility] | | | | | | | + +--------+--------+ +--------+--------+--------+ | Screw Shk Mas Mod 7.5x50mm 2c | | | NUVASIVE - | | | [id number] | | - SnaImplanted: Qty: 2 on | | | NVSV | | | 50 /NA | | 07/22/2019 by Monster White, | | | | | | /NA | | at [facility] | | | | | | | | [facility] | | | | | | | + +--------+--------+ +--------+--------+--------+ Results Not on filefrom Last 3 Months Insurance + +--------+ +--------+ +---------+--------+ | Payer | Benefi | Subscriber | Effect | Phone | Address | Type | | | t Plan | ID | freddie | | | | | | / | | Dates | | | | | | Group | | | | | | + +--------+ +--------+ +---------+--------+ | MEDICARE | MEDICA | [id number] | | [phone] | | Medica | | | RE | | 007-Pr | 5 | | re | | | PART A | | esent | | | | | | AND B | | | | | | + +--------+ +--------+ +---------+--------+ | AARP | AARP | [id number] | 06/03/19 | [phone] | | Indemn | | | MDCR | | 19-Pre | 0 | | ity | | | SUPPL | | sent | | | | + +--------+ +--------+ +---------+--------+ | | CHAMPV | [id number] | | [phone] | Indemn | | | A | | 997-Pr | 7 | | ity | | | | | esent | | | | + +--------+ +--------+ +---------+--------+ | MEDICARE | MEDICA | [id number] | | [phone] | | Medica | | | RE | | 012-Pr | 5 | | re | | | PART A | | esent | | | | | | AND B | | | | | | + +--------+ +--------+ +---------+--------+ | AARP | AARP | [id number] | 06/03/19 | [phone] | | Indemn | | | MDCR | | 19-Pre | 0 | | ity | | | SUPPL | | sent | | | | + +--------+ +--------+ +---------+--------+ | KARY | CHAMPV | [id number] | [phone] | | Indemn | [...] Self | [birth year] | [address] | | | al/Fam | | 1940 | [phone] | [place] | | | amanuel | | | 6 (Home) | [address] | + +--------+ +--------+ + + | Clementine Winchester | Person | Self | [birth year] | | [address] | | | al/Fam | | 1940 | [phone] | [place] | | | amanuel | | | 6 (Home) | [address] | | | | | | [phone] | | | | | | | 3 (Work) | | + +--------+ +--------+ + + Advance Directives + + + + + | Type | Date Recorded | Patient | Explanation | | | | Rheumatology Specialist | | + + + + + | Power of | | | | | Inspector Wire Rope | | | | + + + + + | Power of | 07/30/2019 11:54 | | | | Inspector Wire Rope | AM | | | + + + + + | Advance | 03/08/2015 12:13 | | | | Directive | PM | | | + + + + + | Advance | 07/30/2019 11:54 | | | | Directive | AM | | | + + + + + + + + + + | Code Status | Date | Date | Comments | | | Activated | Inactivated | | + + + + + | Full Code | 07/22/2019 | 07/29/2019 | | | | 11:29 AM | 4:22 PM | | + + + + + + + + +---+ | | | | | + + + +---+ | Full Code | 03/30/2016 | 03/31/2016 | | | | 6:00 PM | 5:46 PM | | + + + +---+
--- OUTSIDE RECORDS SUMMARY | ~2019-10-27 | XMS | Encounter Summary ---
Demographics + + + | Address | [address] | | | [place] [address] | + + + | Home Phone [...] [place], | | | | | [place] [address] | | + + + + + | Kellen Briones | ECON | [place], [place] | | | | | [address] | | + + + + + Care Team Providers + +------+ + | Care Retread Mold Operator Name | Role | Phone | [...] | | Diagnoses | Christopher, | [facility] | | | | | Lumbar | MD Monster | [facility] | | | | | stenosis | [address] | | | | | with | [address] | [address] | | | |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 | [address] | [place] | | | | | claudication | [place], [place] | [address] | | | | | Procedures | [address] | Phone: | | | | | MRI Lumbar | Phone: | [phone] | | | | | Spine wo | [phone] | Fax: | | | | | Contrast | Fax: | [phone] | | | | | | [phone] | | +--------+--------+ + + + + Encounter Details +--------+ + + + + | Date | Type | Department | Care Team | Description | +--------+ + + + + | 04/09/ | Hospital | [facility] | Monster White MD | | | 2019 | Encounter | MED CTR MRI [address] | [address] | | | | | [place], | [address] [address] [place] | | | | | [place] [address] | [address] | | | | | [phone] | | | +--------+ + + + [...] | 0 | 12/19/19 | | | (ЕЛЕНА) 10 MEQ | mouth. | | | [...] effects the | | right side at L1-K0pygfu it is severe and bilaterally at L5-S1 [...]
--- OUTSIDE RECORDS SUMMARY | ~2019-10-27 | XMS | Encounter Summary ---
Demographics + + + | Address | [address] | | | [place] [address] | + + + | Home Phone [...] [place], | | | | | [place] [address] | | + + + + + | Kellen Briones | ECON | [place], [place] | | | | | [address] | | + + + + + Care Team Providers + +------+ + | Care Metal Lather Name | Role | Phone | + [...] + + | 01/07/ | Telephone | [facility] | Tk Ann | Injections | | 2012 | | ORTHOPEDIC SURGERY | MD Jocelin [address] | | | | | [address] [place] [address] | [place], [place] | | | | | [place], [place] | [address] | | | | | [address] | | | | | | [phone] | | | +--------+ + + + [...]
--- OUTSIDE RECORDS SUMMARY | ~2019-10-27 | XMS | Encounter Summary ---
Demographics + + + | Address | [address] | | | [place] [address] | + + + | Home Phone [...] [place], | | | | | [place] [address] | | + + + + + | Kellen Briones | ECON | [place], [place] | | | | | [address] | | + + + + + Care Team Providers + +------+ + | Care Quality Engineering Manager Name | Role | Phone | [...] + + | 08/19/ | Office | [facility] | Mono Diaz, | Lumbar radiculopathy | | 2019 | Visit | PHYSIATRY [address] | PA-C [address] | (Primary Dx) | | | | [address] | [address] [facility] | | | | | [place], [place] | [place] [address] | | | | | [id number] | [phone] | | | | | [phone] | | | +--------+---------+ + + + [...] press against a nerve. Date Last Reviewed: 08/01/201719993236-0712 [employer]. [address] [place] [address], [place] [address]. All righ ts reserved. This information is [...] and narcotic medications use; she currently uses [place], Flexeril and [place] bapentin. Patient's medications, allergies, [...] has no apparent deficits with short or detention memory. She has appropriate fund of knowledge [...] PT (multiple sessions over the years) and hospice care sales consultant. Unfortunately Clementine Winchester continues to have significant [...]
--- OUTSIDE RECORDS SUMMARY | ~2019-10-27 | XMS | Encounter Summary ---
Demographics + + + | Address | [address] | | | [place] [address] | + + + | Home Phone [...] [place], | | | | | [place] [address] | | + + + + + | Kellen Briones | ECON | [place], [place] | | | | | [address] | | + + + + + Care Team Providers + +------+ + | Care Tailing Machine Operator Name | Role | Phone [...] + + | 10/18/ | Office | [facility] | [place], | Cervical stenosis of | | 2016 | Visit | [address]SIATRY [address] | [address] | spinal canal | | | | [address] | [address] | (Primary Dx); | | | | [place] | [place] [address] | Spondylolisthesis of | | | | [address] | [phone] | cervical region; | | | | [phone] | | 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; | | | | | | Lumbar | | | | | | radiculopathy; | | | | | | Spinal stenosis of | | | | | | lumbar region with | | | | | | swkrhwmtuxyuk-J5-Q4 | | | | | | level [...] of the procedure you must provide a caterpillar driver to take you home. For all [...] and narcotic medications use; she currently uses [place], Flexeril and [place] bapentin. Patient's medications, allergies, [...] 5. Spinal stenosis of lumbar region with dlqjscyezdhlp-E9-R7 level moderately severe 6. Facet arthritis of [...] Arthritis ICD-10 Code M43.12 Clementine Winchester | [facility] | | presents to the fluoroscopy [...] + | [facility] | [address] | [place] | [phone] | | [facility] | | [address] | | | - IMAGING | | | | + + + + + [place] BAUTISTA Lumbar Transforaminal (11/16/2015 2:29 PM PDT) + + | Specimen | + + | | + + + + + | Narrative | Performed At | + + + | 11/16/2015 Bilateral Transforaminal Epidural Steroid Injections | [facility] | | Diagnosis: Lumbar radiculopathy ICD-10 Code M54.16 [place] | [facility] | | Lizett Winchester presents to the fluoroscopy suite for [facility] | | fluoroscopically-guided bilateral L5-S1 transforaminal epidural [...] [address] | [place] | [phone] | | [facility] | | [address] | | | - IMAGING | | [...] | Spinal stenosis of lumbar region with mwbtikvsilkhg-I5-I4 level moderately severe | | Spinal stenosis, [...]
--- OUTSIDE RECORDS SUMMARY | ~2019-10-27 | XMS | Encounter Summary ---
Demographics + + + | Address | [address] | | | [place] [address] | + + + | Home Phone [...] [place], | | | | | [place] [address] | | + + + + + | Kellen Briones | ECON | [place], [place] | | | | | [address] | | + + + + + Care Team Providers + +------+ + | Care Medical Claims Examiner Name | Role | Phone | [...] + + | 03/07/ | Telephone | [facility] | Irving Becerril, | Other (Pre op meds | | 2016 | | NE[address]UR[address]ERY [address] | DO [address] | to stop) | | | | [address] | [address] [place], [place] | | | | | [place], [place] | [id number] | | | | | [address] | | | | | | [phone] | | | +--------+ + + + [...]
--- OUTSIDE RECORDS SUMMARY | ~2019-10-27 | XMS | Encounter Summary ---
Demographics + + + | Address | [address] | | | [place] [address] | + + + | Home Phone [...] [place], | | | | | [place] [address] | | + + + + + | Kellen Briones | ECON | [place], [place] | | | | | [address] | | + + + + + Care Team Providers + +------+ + | Care Deputy Coroner Name | Role | Phone | + [...] + | 11/05/ | Telephone | [facility] | Irving Becerril, | Imaging Only | | 2017 | | NE[address]OSUR[address] | DO [address] | | | | | [address] | [address] [place], [place] | | | | | [place], [place] | [id number] | | | | | [address] | | | | | | [phone] | | | +--------+ + + + [...]
--- OUTSIDE RECORDS SUMMARY | ~2019-10-27 | XMS | Encounter Summary ---
Demographics + + + | Address | [address] | | | [place] [address] | + + + | Home Phone | | + + + | Preferred Language | Unknown | + + + | Marital Status | | + + + | Worship Affiliation | [id number] | + + + | Race | Unknown | + + + | Ethnic Group | Unknown | + + + Author + + + | Author | [facility] | | | and [place] | + + + | Organization | [facility] | | | and [place] | + + + | Address | Unknown | + + + | Phone | Unavailable | + + + Support + + + + + | Name | Relationship | Address | Phone | + + + + + | Lucy Winchester | ECON | [place], | | | | | [place] [address] | | + + + + + | Kellen Briones | ECON | [place], [place] | | | | | [address] | | + + + + + Care Team Providers + +------+ + | Care Curriculum Coordinator Name | Role | Phone | [...] + + | 02/10/ | Office | [facility] | Tk Ann | Lumbar radiculopathy | | 2012 | Visit | [address]SIAT[address] | T, [address] | (Primary Dx); DDD | | | | [address] | [address] [place] | (degenerative disc | | | | [place], [place] | [address] | disease), lumbar; | | | | [address] | | Spondylolisthesis of | | | | [phone] | | lumbar region; | | | | | | Spinal stenosis of | | | | | | lumbar region with | | | | | | skwbijksvqmwv-M7-O6 | | | | | | level moderately | | | | | | severe; Facet | | | | | | arthritis of lumbar | | | | | | region-Most severe | | | | | | at L4-L5,L5-S1; [place] | | | | | | (myocardial | | | | | | infarction) ([facility]); | | | | | | Cancer ([facility]); | | | | | | Diabetes mellitus | | | | | | ([facility]); Coronary | | | | | | [...] our off ice. Please also provide a dump truck driver off highway to take you home on the day [...] has actually been seeing Dr. Jordan in [facility] the neck issues and will be [...] 4. Spinal stenosis of lumbar region with kvhwwpxdadsfb-H2-B0 level moderately severe 5. Facet arthritis of [...] x-rays of t he lumbar spine at [facility]. I will request these be placed on I-site. She h as previously seen Dr. Real and has been in contact with Dr. Becerril's office in the [facility] 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
--- OUTSIDE RECORDS SUMMARY | ~2019-10-27 | XMS | Encounter Summary ---
Demographics + + + | Address | [address] | | | [place] [address] | + + + | Home Phone [...] [place], | | | | | [place] [address] | | + + + + + | Kellen Briones | ECON | [place], [place] | | | | | [address] | | + + + + + Care Team Providers + +------+ + | Care Cdl Driver Name | Role | Phone | [...] + + | 06/19/ | Office | [facility] | [place], | Lumbar radiculopathy | | 2017 | Visit | [address]AT[address] | [address] | (Primary Dx); | | | | [address] | [address] | Spinal stenosis of | | | | [place], [place] | [place] [address] | lumbar region with | | | | [address] | [phone] | lbbaeprbbcnbw-A3-A6 | | | | [phone] | | level moderately | | | [...] of blood sugars if you are diabetic. senior care risk can lead to osteoporosis which is [...] of the procedure you must provide a company truck driver to take you home. [...] and narcotic medications use; she currently uses [place], Flexeril and [place] bapentin. She just underwent [...] has no apparent deficits with short or solution coordinator memory. She has appropriate fund of knowledge [...] 2. Spinal stenosis of lumbar region with bejoqitxrpirf-K5-O9 level moderately severe 3. DDD (degenerative disc [...] 06/27/2016 Bilateral Transforaminal Epidural Steroid Injections | [facility] | | Diagnosis: Lumbar radiculopathy ICD-10 Code M54.16 [place] | [facility] | | Lizett Winchester presents to the fluoroscopy suite for [facility] | | fluoroscopically-guided bilateral L5-S1 [...] ST. | [address] | [place], [place] | [phone] | | [facility] | | [address] | | | - IMAGING | | | | + + + + + documented in this encounter Visit Diagnoses + + | Diagnosis | + + | Lumbar radiculopathy - Primary Thoracic or lumbosacral neuritis or radiculitis, | | unspecified | + + | Spinal stenosis of lumbar region with kaaxmojkgxtek-V1-I4 level moderately severe | | Spinal stenosis, [...]
--- OUTSIDE RECORDS SUMMARY | ~2019-10-27 | XMS | Encounter Summary ---
Demographics + + + | Address | [address] | | | [place] [address] | + + + | Home Phone [...] [place], | | | | | [place] [address] | | + + + + + | Kellen Briones | ECON | [place], [place] | | | | | [address] | | + + + + + Care Team Providers + +------+ + | Care Millwright Apprentice Name | Role | Phone | + +------+ + | Barb Marte | PCP | | + +------+ + Reason for Referral Evaluate & Treat (Routine) + +--------+ + [...] | | | | lumbar | [place] [address] | [address] Phone: | | | | | region DDD | Phone: | [phone] | | | | | (degenerativ | [phone] | Fax: | | | | | e disc | Fax: | [phone] | | | | | disease), | [phone] | | | | | | lumbar [...] | + +--------+ + + + + Reason for Visit + + + | Reason | Comments | + + + | Follow-up | Back Pain | + + + Encounter Details +--------+---------+ + + + | Date | Type | Department | Care Team | Description | +--------+---------+ + + + | 12/08/ | Office | [facility] | Mono Diaz, | Lumbar radiculopathy | | 2019 | Visit | [address] | PA-C [address] | (Primary Dx); | | | | [address] | [address] [place] | Spondylolisthesis of | | | | [place] [facility], [place] | [facility] [place] [address] | lumbar region; DDD | | | | [address] | [phone] | (degenerative disc | | | | [phone] | | disease), lumbar; | | | | | | Spinal stenosis of | | | | | | lumbar region with | | | | | | mtkgxxytthbie-N1-T2 | | | | | | level [...] + + + | Blood Pressure | 124/67 | 12/08/2018 2:24 PM | | | | | PDT | | + + + + + | Pulse | 84 | 12/08/2018 2:24 PM | | | | | PDT [...] + + + + | Weight | 63.3 kg (139 lb 7.8 | 12/08/2018 2:24 PM | | | | oz) | PDT | | + + + + + | Height | 160 cm (5' 3") | 12/08/2018 2:24 PM | | | | | PDT | | + + + + + | Body Mass Index | 24.71 | 12/08/2018 2:24 PM | | | | | PDT | | + + + + + documented in this encounter Patient Instructions Patient Instructions Mono Diaz PA-C - 12/08/2018 2:40 PM PDTFormatting of this note m ight be different from the original. use back brace as needed. D/c muscle relaxers. (D/c baclofen) Referral to neurosurgery (Dr Terrazas) placed today. Common Spine and Disk Problems The most common serious back problemshappen when disks tear, bulge, or rupture. In such c ases, an injured disk can no longer cushion the vertebrae and absorb shock. As a result, the rest of your spine may also weaken. This can lead to pain, stiffness, and other symptoms. Torn annulus. A sudden movement may cause a tiny tear in an annulus. Nearby ligaments ma y stretch. Contained herniated disk. As a disk wears out, the nucleus may bulge into the annulus an d press on nerves. Extruded herniateddisk. When a disk ruptures, its nucleus can squeeze out and irritate a nerve. Arthritis. As disks wear out over time, bone spurs form. These growths can irritate nerv es and inflame facets. Instability. As a disk stretches, the vertebrae slip back and forth. This can put pressu re on the annulus. Spondylolisthesis.Thisis a condition in which one vertebra has moved forward or back torrez, in relation to the one above or below it. Thiscauses a crack (stress fracture) in th e areas that link the vertebrae together. This may put pressure on the annulus, stretch the disk, and irritate nerves. Date Last Reviewed: 11/01/201719990768-[address]35 [email or web address]. [address] [place] [address], [place] [address]. All righ ts reserved. This information is not intended as a substitute for professional medical care. Always follow your healthcare professional's instructions. documented in this encounter Progress Notes Mono Diaz PA-C - 12/08/2018 2:40 PM PDTFormatting of this note might be different fro m the original. Mono Diaz PA-C [address] [facility], [address] [place] [address] FAX: CHIEF COMPLAINT: Chief Complaint Patient presents with Follow-up Back Pain HISTORY OF PRESENT ILLNESS: Clementine Winchester is a 78 y.o. female being seen today in follow-up for complaints of low ba ck pain The patient has been seen for this complaint in the past. Previously it was recom mended that she have bilateral L5-S1 and L4-5 TFESI. She reports that the treatment was not effective. In the past these injections have proven effective however this recent round of injections was unsuccessful. Overall the patient reports that the symptoms are worsening. She rates the pain as severe. She describes the pain as aching, sharp, stabbing, burning, tingling or radiating to bila teral legs. Her symptoms worsen with standing or walking. Her symptoms improve with lying down, sitting down, using a walker, medications. The patient does not describe numbness of the leg(s). She does report weakness of the leg(s). She does not have bowel and bladder dysfunction. She does not have saddle anesthesia. Patient requires a walker for ambulatio n. Treatments for these complaints have included PT, injections, medications, chiropractic, T ENS unit. Pertinent medications include gabapentin, baclofen, and Cymbalta. Patient is not taking any rx anticoagulation at this time. Patient's medications, allergies, past medical, surgical, social and family histories were reviewed and updated as appropriate. PMH: hx of seratonin syndrome. Caution muscle relaxers and SSRIs. CURRENT MEDICATIONS: Current Outpatient Medications Medication Sig [...] feel like she was in a fog. ROS PHYSICAL EXAMINATION: Blood pressure 124/67, pulse 84, height 1.6 m (5' 3"), weight 64 kg (141 lb), not currently . Body mass index is 24.98 kg/m. GENERAL: The patient is well developed and well nourished. She does appear uncomfortable w hen seated. HEENT: Normocephalic and atraumatic. Normal sclerae without icterus. NECK (ANTERIOR): There is no apparent cervical lymphadenopathy or thyromegaly. PULMONARY: The patient is in no acute respiratory distress with unlabored respirations. CARDIOVASCULAR: There is lower extremity edema. 2+ right anterior diaz, Mild edema on lef t diaz. ABDOMEN: Non-distended. SKIN: Limited skin exam shows no significant rashes or lesions. NEUROLOGIC: The patient is awake, alert, and oriented. She follows simple and complex commands. Her speech is fluent. She comprehends speech well. She has no apparent deficits with short or custodial memory. The cranial nerves appear grossly intact. Sensory exam does not show diminished sensation to light touch in the leg(s). REFLEX: RIGHT LEFT PATELLAR 2+ 2+ ACHILLES 1+ 1+ MUSCULOSKELETAL : Straight leg raise and slump-sit are positive on the left. Westley's maneuver was were negative for groin pain. There was no TTP over greater trochanters or sacral sulci. The patient localized the majority of TTP to the L4/5 region. Lumbar facet loading was negative. Strength testing showed 5/5 strength throughout the lower extremities with exception to bilateral hip flexion and knee extension 4/5. The patient was unable to heel and toe walk without difficulty. There was no redness, effusion, warmth or joint line tenderness in the knees or ankles. RADIOGRAPHIC REVIEW: Lumbar MRI 01/22/18: severe DDD throughout lumbar spine with severe central canal stenosis f rom L3-S1 and severe bilateral foraminal stenosis at L5/S1. Descending L5 and S1 nerve root impingements. ASSESSMENT: Encounter Diagnoses Name Primary? Lumbar radiculopathy Yes Spondylolisthesis of lumbar region DDD (degenerative disc disease), lumbar Spinal stenosis of lumbar region with ileutofttaodz-O2-K2 level moderately severe PLAN: 1) Today we discussed the patient's differential diagnosis with the likely primary issue be ing LUMBAR RADICULOPATHY secondary to severe multilevel spinal stenosis. Patient's descripti on of symptoms, physical exam, and imaging suggest this diagnosis at this time. 2) I counseled patient on treatment options which included conservative self management usi ng OTC NSAIDs/Ice and heat packs, physical therapy, prescription medications, epidural stero id injection, neuromodulation devices, as well as possible surgical intervention. 3) Imaging: As descibed above in radiology review. 4) The patient has had significant conservative care including medications (NSAIDS and narc otics), PT (multiple sessions over the years) and acute care occupational therapist. Unfortunately Clementine Winchester continues to have significant discomfort. It appears to me that the pain is primari ly coming from multilevel central and neuroforaminal stenosis. I did feel that Clementine Winchester would be a good candidate for neurosurgical interventio n. Referral to Dr. Terrazas was placed today Patient is taking several prescription medications including cardiac and diabetes medica tions. Patient instructed to d/c baclofen as she reports it has been causing similar symptom s to the time she had serotonin syndrome. 5) we discussed spinal cord stimulator briefly today. I informed her that due to severity of MRI findings it would be best if she saw a neurosurgeon first, prior to any further spina l cord stimulator discussion. 6) pitting edema: patient reports she does have follow up appt with cardiology later this m [facility]. I spent 30 minutes in visit with Clementine Winchester today with the majority of time spent cou nselling the patient on her diagnosis, options for her care, and coordinating her care. ELECTRONICALLY SIGNED BY: Mono Diaz PA-C, 12/08/2018 14:37 documented in this en counter Plan of Treatment + + +--------+ + + | Name | Type | Priori | Associated Diagnoses | Order Schedule | | | | ty | | | + + +--------+ + + | NEUROSURGERY | Outpatient | Routin | Lumbar | Ordered: 12/08/2018 | | REFERRAL INTERNAL | Referral | e | radiculopathy | | | | | | 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 DDD | | | | | | (degenerative disc | | | | | | disease), lumbar | | | | | | Spinal stenosis of | | | | | | lumbar region with | | | | | | irgveaqkgdxrb-Y4-F3 | | | | | | level moderately | | | | | | severe | | + + +--------+ + + documented as of this encounter Visit Diagnoses + + | Diagnosis | + + | Lumbar radiculopathy - Primary Thoracic or lumbosacral neuritis or radiculitis, | | unspecified | + + | Spondylolisthesis of lumbar region Acquired spondylolisthesis | + + | DDD (degenerative disc disease), lumbar Degeneration of lumbar or lumbosacral | | intervertebral disc | + + | Spinal stenosis of lumbar region with ealkcgddecygv-O1-H3 level moderately severe | | Spinal stenosis, lumbar region, without neurogenic claudication | + + documented in this encounter
--- OUTSIDE RECORDS SUMMARY | ~2019-10-27 | XMS | Encounter Summary ---
Demographics + + + | Address | [address] | | | [place] [address] | + + + | Home Phone [...] [place], | | | | | [place] [address] | | + + + + + | Kellen Briones | ECON | [place] | | | | | [address] | | + + + + + Care Team Providers + +------+ + | Care Environmental Permitting Specialist Name | Role | Phone | [...] | | | [address] | [place] [address] | degenerative disc | | | | [place], [place] | [phone] | disease | | | | [address] | | | | | | [phone] | | | +--------+ + + + [...]
--- OUTSIDE RECORDS SUMMARY | ~2019-10-27 | XMS | Encounter Summary ---
Demographics + + + | Address | [address] | | | [place] [address] | + + + | Home Phone [...] [place], | | | | | [place] [address] | | + + + + + | Kellen Briones | ECON | [place], [place] | | | | | [address] | | + + + + + Care Team Providers + +------+ + | Care Lead Fire Protection Engineer Name | Role | Phone | [...] + + | 12/14/ | Office | [facility] | [place], | Spinal stenosis of | | 2013 | Visit | [address]SIAT[address] | [address] | lumbar region with | | | | [address] | [address] | peamrfjxapkzn-R5-O1 | | | | [place], [place] | [place] [address] | level moderately | | | | [address] | [phone] | severe (Primary Dx); | | | | [phone] | | Facet arthritis of | | [...] in this encounter Patient Instructions Patient Instructions Bogdanowicz, Claudia, PA-C - 12/14/2013 11:46 AM PDT Follow-up [...] the procedure you must provide a delivery driver to take you home. For all [...] and narcotic medications use; she currently uses [place], Flexeril and [place] bapentin. Patient's medications, allergies, [...] 1. Spinal stenosis of lumbar region with dfzoulpkcfgzl-I3-B3 level moderately severe 2. Facet arthritis of [...] after the injection. She is awaiting to t cleared by her retail planner for cervical fusion. ELECTRONICALLY SIGNED BY: Claudia [...] [facility] | | Annabella presents to the fluoroscopy suite for fluoroscopically-guided | [facility] | | bilateral L5-S1 transforaminal epidural [...] + + + + + | [address] | [address] 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
--- OUTSIDE RECORDS SUMMARY | ~2019-10-27 | XMS | Encounter Summary ---
Demographics + + + | Address | [address] | | | [place] [address] | + + + | Home Phone [...] [place], | | | | | [place] [address] | | + + + + + | Kellen Briones | ECON | [place], [place] | | | | | [address] | | + + + + + Care Team Providers + +------+ + | Care Clinical Asst Name | Role | Phone | + [...] | Lumbar | [place], | [address] | | | | | radiculopath | Tk Monreal MD | [place], | | | | | y | [address] | [place] | | | | | Procedures | [place] | [address] | | | | | DE INJECT | [place], [place] | Phone: | | | | | ANES/STEROID | [address] | [phone] | | | | | FORAMEN | Phone: | Fax: | | | | | LUMBAR/SACRA | [phone] | [phone] | | | | | L [address] IMG | Fax: | | | | | | GUIDE ,1 | [phone] | | | | | | LEVEL [...] + + | 05/12/ | Hospital | [facility] | Mono Diaz, | Lumbar radiculopathy | | 2018 | Encounter | MED CTR XRAY [address] | PA-C [address] | | | | | [place] | [address] [place] | | | | | [place] [address] | [place] [address] | | | | | [phone] | [phone] | | | | | | | | | | | | Pediatric Dermatologist, [place] | | | | | | [place] [...] + + | Performing | Address | [facility] | Phone Number | | Organization [...]
--- OUTSIDE RECORDS SUMMARY | ~2019-10-27 | XMS | Encounter Summary ---
Demographics + + + | Address | [address] | | | [place] [address] | + + + | Home Phone [...] [place], | | | | | [place] [address] | | + + + + + | Kellen Briones | ECON | [place], [place] | | | | | [address] | | + + + + + Care Team Providers + +------+ + | Care Health Information Administrator Name | Role | Phone | + [...] + + | 04/05/ | Telephone | [facility] | Irving Becerril, | Medication Question | | 2015 | | [address]UR[address] | DO [address] | | | | | [address] [facility] [address] | [address] [place], [place] | | | | | [place], [place] | [id number] | | | | | [address] | | | | | | [phone] | | | +--------+ + + + [...]
--- OUTSIDE RECORDS SUMMARY | ~2019-10-27 | XMS | Encounter Summary ---
Demographics + + + | Address | [address] | | | [place] [address] | + + + | Home Phone [...] [place], | | | | | [place] [address] | | + + + + + | Kellen Briones | ECON | [place], [place] | | | | | [address] | | + + + + + Care Team Providers + +------+ + | Care Ticket Agent Name | Role | Phone | [...] + + | 05/17/ | Office | [facility] | Chavo Jacob, | Status post cervical | | 2016 | Visit | NEUROSURGERY [address] | PA-C [address] | spinal fusion | | | | [address] | [address] | (Primary Dx) | | | | [address] | [place] [address] | | | | | [address] | [phone] | | | | | [phone] | | | +--------+---------+ + + + [...] encounter Patient Instructions Patient Instructions Perico Hearn, Snailer - 05/17/2016 11:43 AM PSTYou may now [...] your back and use good technique when picker tender things and bending. documented in this encounter Progress Notes Chavo Jacob PA - 05/17/2016 11:41 AM PSTFormatting of this note might be different f rom the original. Perico Hearn, Deicer Inspector Pneumatic [address] [facility] [place], [address] [place], [place] [id number] FAX: NEUROSURGERY FOLLOW-UP CHIEF COMPLAINT: Chief Complaint [...] (HCC) Hypertension Cancer (HCC) Right breast Hyperlipidemia [facility] (my[facility] infarction) ([facility]) GERD (gastroesophageal reflux disease) Asthma Arthritis Lumbar radiculopathy 07/23/2012 DDD (degenerative disc disease), lumbar 07/23/2012 Spinal stenosis of lumbar region with sjjtyyoyyiihk-V5-O1 level moderately severe 2012 Facet arthritis of [...] restricting mobility. ELECTRONICALLY SIGNED BY: Nathan De León Asst, 05/17/2016 11:41 I Nathan De León Asst am personally taking down the notes in [...]
--- OUTSIDE RECORDS SUMMARY | ~2019-10-27 | XMS | Encounter Summary ---
Demographics + + + | Address | [address] | | | [place] [address] | + + + | Home Phone [...] [place], | | | | | [place] [address] | | + + + + + | Kellen Briones | ECON | [place], [place] | | | | | [address] | | + + + + + Care Team Providers + +------+ + | Care Drapery Installer Name | Role | Phone | [...] + + | 03/05/ | Telephone | [facility] | Tk Ann | Other (Reschedule | | 2012 | | PHYSIATRY [address] | TMD [address] | injection) | | | | [address] | [place], [place] | | | | | [place], [place] | [address] | | | | | [address] | | | | | | [phone] | | | +--------+ + + + [...]
--- OUTSIDE RECORDS SUMMARY | ~2019-10-27 | XMS | Encounter Summary ---
Demographics + + + | Address | [address] | | | [place] [address] | + + + | Home Phone [...] [place], | | | | | [place] [address] | | + + + + + | Kellen Briones | ECON | [place], [place] | | | | | [address] | | + + + + + Care Team Providers + +------+ + | Care Detention Sergeant Name | Role | Phone | + [...] + + | 10/02/ | Telephone | [facility] | Irving Becerril, | Imaging Only ([address] | | 2016 | | NEUROSURGERY [address] | DO [address] | xray ) | | | | [address] | [address] [place], [place] | | | | | [place], [place] | [id number] | | | | | [address] | | | | | | [phone] | | | +--------+ + + + [...]
--- OUTSIDE RECORDS SUMMARY | ~2019-10-27 | XMS | Encounter Summary ---
Demographics + + + | Address | [address] | | | [place] [address] | + + + | Home Phone [...] [place], | | | | | [place] [address] | | + + + + + | Kellen Briones | ECON | [place], [place] | | | | | [address] | | + + + + + Care Team Providers + +------+ + | Care Auto Dismantler Name | Role | Phone | + [...] + + | 09/01/ | Refill | [facility] | Monster White MD | Medication Refill | | 2019 | | [facility] | [address] | | | | | ORTHOPEDIC SPINE | [address] [place], [place] | | | | | [address] | [address] | | | | | [place], [place] | | | | | | [address] | | | | | | [phone] | | | +--------+--------+ + + + [...]
--- OUTSIDE RECORDS SUMMARY | ~2019-10-27 | XMS | Encounter Summary ---
Demographics + + + | Address | [address] | | | [place] [address] | + + + | Home Phone [...] [place], | | | | | [place] [address] | | + + + + + | Kellen Briones | ECON | [place], [place] | | | | | [address] | | + + + + + Care Team Providers + +------+ + | Care Sr. Merchandise Planner Name | Role | Phone | [...] | 05/09/ | Refill | [facility] | Chavo Jacob, | Medication Refill | | 2015 | | NEUROSURGERY [address] | PA-C [address] | | | | | [address] | [address] [facility] | | | | | [place], [place] | [place] [address] | | | | | [address] | [phone] | | | | | [phone] | | | +--------+--------+ + + + [...]
--- OUTSIDE RECORDS SUMMARY | ~2019-10-27 | XMS | Encounter Summary ---
Demographics + + + | Address | [address] | | | [place] [address] | + + + | Home Phone [...] [place], | | | | | [place] [address] | | + + + + + | Kellen Briones | ECON | [place] | | | | | [address] | | + + + + + Care Team Providers + +------+ + | Care Rn Ostomy Name | Role | Phone | + [...] | | | | [place] | [phone] | | | | | [address] | | | | | | [phone] | | | +--------+ + + + [...] | Procedure Note | + + | Howard Nilay Everett - 01/14/2019 11:42 AM PDT This [...]
--- OUTSIDE RECORDS SUMMARY | ~2019-10-27 | XMS | Encounter Summary ---
Demographics + + + | Address | [address] | | | [place] [address] | + + + | Home Phone [...] [place], | | | | | [place] [address] | | + + + + + | Kellen Briones | ECON | [place], [place] | | | | | [address] | | + + + + + Care Team Providers + +------+ + | Care Harvesting Manager Name | Role | Phone | [...] + + | 05/02/ | Telephone | [facility] | Irving Becerril, | Paperwork | | 2016 | | NEUROSURGERY [address] | DO [address] | | | | | [address] | [address] [place], [place] | | | | | [place], [place] | [id number] | | | | | [address] | | | | | | [phone] | | | +--------+ + + + [...]
--- OUTSIDE RECORDS SUMMARY | ~2019-10-27 | XMS | Encounter Summary ---
Demographics + + + | Address | [address] | | | [place] [address] | + + + | Home Phone [...] [place], | | | | | [place] [address] | | + + + + + | Kellen Briones | ECON | [place], [place] | | | | | [address] | | + + + + + Care Team Providers + +------+ + | Care Non Linear Editor Name | Role | Phone | + [...] | Services | | Neck pain | Pipap, | Irving Corona DO | | | Required | | on right | [place], | [address] | | | | | side Facet | PA-C [address] | [address] | | | | | arthritis of | [address], | [place], [place] | | | | | cervical | [address] | [address] Phone: | | | | | region DDD | [place], [place] | [phone] | | | | | (degenerativ | [address] | Fax: | | | | | e disc | Phone: | [phone] | | | | | disease), | [phone] | | | | | | cervical | Fax: | | | | | | Cervical | [phone] | | | | | | stenosis [...] Neck pain | [place], | [address] | | | | | on right | [place]ia, | [place], | | | | | side Facet | PA-C [address] | [place] | | | | | arthritis of | [address], | [address] | | | | | cervical | [address] | Phone: | | | | | region DDD | [place], [place] | [phone] | | | | | (degenerativ | [address] | Fax: | | | | | e disc | Phone: | [phone] | | | | | disease), | [phone] | | | | | | cervical | Fax: | | | | | | Cervical | [phone] | | | | | | stenosis [...] + + | 12/13/ | Telephone | [facility] | [place], | Referral | | 2015 | | PHYSIATRY [address] | AYAAN Taylor [address] | | | | | [address] | [address], [address] | | | | | [place], [place] | [place] [address] | | | | | [address] | [phone] | | | | | [phone] | | | +--------+ + + + [...] | Spinal stenosis of lumbar region with aiocxlrgnetgl-R5-J6 level moderately severe | | Spinal stenosis, [...]
--- OUTSIDE RECORDS SUMMARY | ~2019-10-27 | XMS | Encounter Summary ---
Demographics + + + | Address | [address] | | | [place] [address] | + + + | Home Phone [...] [place], | | | | | [place] [address] | | + + + + + | Kellen Briones | ECON | [place] | | | | | [address] | | + + + + + Care Team Providers + +------+ + | Care Bromination Equipment Operator Name | Role | Phone | [...] Lauren Rodarte. | | | | | [address] [facility] | [place] [address] | | | | | [place] [address] | | | | | | [phone] | | | +--------+ + + + [...] + | RACHEL DIGITAL | Routin | 10/27/2015 | | Results for this | | SCREENING LEFT | e | 1:15 PM | | procedure are in the | | | | PDT | | results section. | + +--------+ + + + documented in this encounter Results RACHEL Digital Screening Left (10/27/2015 1:15 PM PDT) + + | Specimen | [...]
--- OUTSIDE RECORDS SUMMARY | ~2019-10-27 | XMS | Encounter Summary ---
Demographics + + + | Address | [address] | | | [place] [address] | + + + | Home Phone [...] [place], | | | | | [place] [address] | | + + + + + | Kellen Briones | ECON | [place], [place] | | | | | [address] | | + + + + + Care Team Providers + +------+ + | Care Resort Host Name | Role | Phone | + [...] + + | 03/30/ | Hospital | [facility] | Irving Becerril, | | | 2016 | Encounter | MED CTR XRAY [address] | DO [address] | | | | | [place] | [address] [place], [place] | | | | | [place] [address] | [phone] | | | | | [phone] | | | +--------+ + + + [...]
--- OUTSIDE RECORDS SUMMARY | ~2019-10-27 | XMS | Encounter Summary ---
Demographics + + + | Address | [address] | | | [place] [address] | + + + | Home Phone [...] [place], | | | | | [place] [address] | | + + + + + | Kellen Briones | ECON | [place], [place] | | | | | [address] | | + + + + + Care Team Providers + +------+ + | Care Materials Manager Name | Role | Phone | [...] [address] | | | | | [place], [place] | [place] [address] | | | | | [address] | [phone] | | | | | [phone] | | | +--------+ + + + [...]
--- OUTSIDE RECORDS SUMMARY | ~2019-10-27 | XMS | Encounter Summary ---
Demographics + + + | Address | [address] | | | [place] [address] | + + + | Home Phone [...] [place], | | | | | [place] [address] | | + + + + + | Kellen Briones | ECON | [place] | | | | | [address] | | + + + + + Care Team Providers + +------+ + | Care Oral Surgery Technician Name | Role | Phone | + +------+ + | Barb Marte | THANG | | + +------+ + Encounter Details +--------+ + + + + | Date | Type | Department | Care Team | Description | +--------+ + + + + | 12/29/ | Hospital | [facility] | Chavo Jacob, | DDD (degenerative | | 2019 | Encounter | MED CTR XRAY [address] | PA-C [address] | disc disease), | | | | [place] | [address] [place] | lumbar; Lumbar | | | | [place] [address] | [place] [address] | radiculopathy | | | | [phone] | [phone] | | | | | | | [...]
--- OUTSIDE RECORDS SUMMARY | ~2019-10-27 | XMS | Encounter Summary ---
Demographics + + + | Address | [address] | | | [place] [address] | + + + | Home Phone [...] [place], | | | | | [place] [address] | | + + + + + | Kellen Briones | ECON | [place], [place] | | | | | [address] | | + + + + + Care Team Providers + +------+ + | Care Rental Coordinator Name | Role | Phone | [...] [address]TH | | | | | | ([facility]) S/P | AVE [address] | | | | | | cervical | [place] | | | | | | spinal | [address] | | | | | | fusion | Phone: | | | | | | | [phone] | | | | | | | Fax: | | | | | | | [phone] | | +--------+ + + + + + Reason for Visit +---------+ + | Reason | Comments | +---------+ + | Post Op | 3m PO | +---------+ + Encounter Details +--------+---------+ + + + | Date | Type | Department | Care Team | Description | +--------+---------+ + + + | 07/04/ | Office | [facility] | Irving Becerril, | Cervical myelopathy | | 2017 | Visit | NEUROSURGERY [address] | DO [address] | ([facility]) (Primary Dx); | | | | [address] | [address] [place], [place] | S/P cervical spinal | | | | [place], [place] | [id number] | fusion | | | | [address] | | | | | | [phone] | | | +--------+---------+ + + + [...] [address] [facility], [address] [place] [address] FAX: NEUROSURGERY FOLLOW-UP CHIEF COMPLAINT: Chief Complaint [...] 07/23/2012 Spinal stenosis of lumbar region with cezyfktmgazff-K2-M8 level moderately severe 2012 Facet arthritis of [...] 1989' Mastectomy, radical 1987 Right Breast reconstruction 3285-2367 About 10 surgeries Bone spur left foot Blepharoptosis repair 2009 bilateral Cervical spine surgery Anterior 03/30/2016 Procedure: C3-4, C4-5, C5-6, C6-7 Anterior Cervical Discectomy w/ Fusion and Plating; Enamorado rgeon: Irving Becerril DO; Location: [facility] MAIN OR CURRENT MEDICATIONS: Current Outpatient [...] 07/23/2012 Spinal stenosis of lumbar region with wdigdzkkjfohh-M3-P3 level moderately severe 2012 Facet arthritis of [...]
--- OUTSIDE RECORDS SUMMARY | ~2019-10-27 | XMS | Encounter Summary ---
Demographics + + + | Address | [address] | | | [place] [address] | + + + | Home Phone [...] [place], | | | | | [place] [address] | | + + + + + | Kellen Briones | ECON | [place], [place] | | | | | [address] | | + + + + + Care Team Providers + +------+ + | Care Ton Container Shipper Name | Role | Phone | + [...] | arthritis of | [address], | [place], [place] | | | | | cervical | [address] | [address] Phone: | | | | | region DDD | [place], [place] | [phone] | | | | | (degenerativ | [phone] | Fax: | | | | | e disc | Phone: | [phone] | | | | | disease), | [phone] | | | | | | cervical | Fax: | | | | | | Cervical | [phone] | | | | | | stenosis [...] Neck pain | [place], | [address] | | | | | on right | Claudia, | Rhys Espinal, | | | | | side Facet | PA-C [address] | [place] | | | | | arthritis of | [address], | [address] | | | | | cervical | [address] | Phone: | | | | | region DDD | [place], [place] | [phone] | | | | | (degenerativ | [address] | Fax: | | | | | e disc | Phone: | [phone] | | | | | disease), | [phone] | | | | | | cervical | Fax: | | | | | | Cervical | [phone] | | | | | | stenosis [...] + + | 12/13/ | Telephone | [facility] | [place], | Referral | | 2015 | | PHYSIATRY [address] | AYAAN Taylor [address] | | | | | [address] | [address], [address] | | | | | [place], [place] | [place] [address] | | | | | [address] | [phone] | | | | | [phone] | | | +--------+ + + + [...] | Spinal stenosis of lumbar region with nlqjrpkoqlegp-E1-I9 level moderately severe | | Spinal stenosis, [...]
--- OUTSIDE RECORDS SUMMARY | ~2019-10-27 | XMS | Encounter Summary ---
Demographics + + + | Address | [address] | | | [place] [address] | + + + | Home Phone [...] [place], | | | | | [place] [address] | | + + + + + | Kellen Briones | ECON | [place], [place] | | | | | [address] | | + + + + + Care Team Providers + +------+ + | Care Networking Administrator Name | Role | Phone | [...] | | | | | claudication | [place], [place] | [address] | | | | | Procedures | [address] | Phone: | | | | | MRI Lumbar | Phone: | [phone] | | | | | Spine wo | [phone] | Fax: | | | | | Contrast | Fax: | [phone] | | | | | | [phone] | | +--------+--------+ + + + + [...] | | | | | claudication | [place] | [address] | | | | | Procedures | [address] | Phone: | | | | | CT Lumbar | Phone: | [phone] | | | | | Spine wo | [phone] | Fax: | | | | | Contrast | Fax: | [phone] | | | | | | [phone] | | +--------+--------+ + + + + [...] | | | without | [place], | [place], [place] | | | |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 | [place] [address] | [address] | | | | | claudication | Phone: | Phone: | | | | | lumbar | [phone] | [phone] | | | | | | Fax: | Fax: | | | | | | [phone] | [phone] | + +--------+ + + + + Encounter Details +--------+---------+ + + + | Date | Type | Department | Care Team | Description | +--------+---------+ + + + | 03/19/ | Office | [facility] | Monster White MD | Lumbar stenosis with | | 2019 | Visit | [facility] | [address]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 | | | | ORTHOPEDIC SPINE | [address] [place] | claudication | | | | [address] [place] | [id number] | (Primary Dx); | | | | [place] | | 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 | | | | [phone] | | | +--------+---------+ + + + [...] findings 01/2018 Social History Occupational History 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 Employer: [employer] Tobacco Use Smoking status: [...] reflux disease) Hyperlipidemia Hypertension Lumbar radiculopathy 07/23/2012 [place] (myocardial infarction) (HCC) Neck pain on right side 05/13/2013 Oxygen dependent 2 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 Snoring Spinal stenosis of lumbar region with fjommgvgnxmab-F8-R4 level moderately severe 2012 Past Surgical History: Procedure Laterality Date BELPHAROPTOSIS REPAIR 2008 bilateral bone spur left foot BREAST RECONSTRUCTION 3939-6902 About 10 surgeries CARPAL TUNNEL RELEASE Bilateral CERVICAL SPINE SURGERY Anterior 03/30/2016 Procedure: C3-4, C4-5, C5-6, C6-7 Anterior Cervical Discectomy w/ Fusion and Plating; Bryan geon: Irving Becerril, DO; Location: [facility] MAIN OR CORONARY ARTERY BYPASS GRAFT 2009 HYSTERECTOMY, TOTAL ABDOMINAL 1969 MASTECTOMY, RADICAL 1986 Right MOUTH SURGERY 1957 [...] flexors 5 5 Hand intrinsics 5 5 Imaging Aide 5 5 Hip flexors 5 5 Quadriceps [...] Note: We spent approximately 50 minutes in jmui-yg-pwla time of which greater than 50% was [...] effects the | | right side at L1-C1seazw it is severe and bilaterally at L5-S1 [...]
--- OUTSIDE RECORDS SUMMARY | ~2019-10-27 | XMS | Encounter Summary ---
Demographics + + + | Address | [address] | | | [place] [address] | + + + | Home Phone [...] [place], | | | | | [place] [address] | | + + + + + | Kellen Briones | ECON | [place], [place] | | | | | [address] | | + + + + + Care Team Providers + +------+ + | Care Machine Tester Name | Role | Phone | [...] | | | | | | | [place] | | | | | | | [...] Hospital | [facility] | Irving Becerril, | | | 2016 - | Encounter | MED CTR SURGICAL | DO [address] | | | | | [address] [place] | [address] | | | 03/31/ | | [place] [address] | [id number] | | | 2015 | | [phone] | | | +--------+ + + + [...] Admitting Physician: Irving Becerril DO [facility] Discharging Physician: NARESH Valverde Primary Discharge [...] lumbar Spinal stenosis of lumbar region with klyohreimilbd-H9-U7 level moderately severe Facet arthritis of lumbar [...] of admission the patient was admitted to [facility] and underwent a C3-C7 fusion. [...] Electronically signed by: Chavo Jacob, 03/31/2016 7:59 [facility] documented in this encounter Discharge Instructions Instructions RicciMerle hawk Janet, ASSEMBLER [employer]ANDAL [employer] - 03/31/2016Discharge Instructions for Cervical Fusion You [...] t raise your hands over your head iwj2nlgf(s)after your surgery. Don t drive until your [...] this your 1 month post op appointment. 3603-0657 [employer] [address] [place] [address]. All righ ts reserved. This information is not intended as a substitute for professional medical care. Always follow your healthcare professional's instructions. If you would like Home Health: Call [facility] at [phone] documented in this encounter Medications at Time [...] might be different f rom the original. [facility] NEUROSURGERY PROGRESS NOTE Pt. Name/Age/: Clementine Phoenix [...] signed by: Chavo Jacob, 03/31/2016 7:48 [facility] documented in this encounter Plan of Treatment [...] | | | POC | | | ST[facility]e [facility]A | | | | | | [...] [address] | [place] | [phone] | | [facility] | | [address] | | | - LABORATORY | | [...] + | [facility] | [address] | [place] | [phone] | | [facility] | | [address] | | | - LABORATORY | | [...] St | [place] | | | [facility] | | [address] | | | - BLOOD BANK | [...]
--- OUTSIDE RECORDS SUMMARY | ~2019-10-27 | XMS | Encounter Summary ---
Demographics + + + | Address | [address] | | | [place] [address] | + + + | Home Phone [...] [place], | | | | | [place] [address] | | + + + + + | Kellen Briones | ECON | [place], [place] | | | | | [address] | | + + + + + Care Team Providers + +------+ + | Care Home Office Representative Name | Role | Phone | [...] Description | +--------+--------+ + + + | 04/30/ | Refill | [facility] | Irving Becerril, | Medication Refill | | 2015 | | NEUROSURGERY [address] | DO [address] | | | | | [address] | [address] [place], [place] | | | | | [place], [place] | [id number] | | | | | [address] | | | | | | [phone] | | | +--------+--------+ + + + [...]
--- OUTSIDE RECORDS SUMMARY | ~2019-10-27 | XMS | Encounter Summary ---
Demographics + + + | Address | [address] | | | [place] [address] | + + + | Home Phone [...] | Lucycat Carmichaeljenakj | ECON | [place], | | | | | [place] [address] | | + + + + + | Kellen Briones | ECON | [place], [place] | | | | | [address] | | + + + + + Care Team Providers + +------+ + | Care Museum Exhibit Designer Name | Role | Phone | [...] | CONVERSION DEP [address] | | [facility] ([facility]) | | | | [address] | | | | 07/14/ | | A[place] D[place] | | | | 2009 | | [address] | | | | | | [phone] | | | +--------+ + + + [...] Performed At | + + + | [facility] | | | [facility] [address] | | | , | | | [id number]/RADIOLOGY Patient Name: CLEMENTINE NUNEZ Date of : | | | 1940 Medical Record: [id number] Account: [id number] | | | I/P/ [id number]/ Exam Date/Time: 07/12/2009 | | | 05:00 [...] good position in the SVC. The prior [place]th[place]-Gideon catheter | | | has been removed. [...] 11:16 P | | | P P SLW/dc/[id number]/ | | | cc: MD ANUJ PERLA MD STEVEN L | | | MD MARYANN | | + + + + + | Procedure Note | + + | Nilay Lawrence - 01/25/2019 5:24 PM PDT | | [facility] | | [facility] [address] | | , | | | | [id number]/RADIOLOGY | | | | Patient Name: CLEMENTINE NUNEZ | | Date of : 1940 | | Medical Record: [id number] | | Account: [id number] | | I/P/CU 27061/ | | | | | | Exam [...] in the SVC. | | The prior [place]th[place]-Gideon catheter has been removed. No obvious mediastinal [...] | P | | P | | SLW/dc/[id number]/ | | cc: ROSALVA LOZADA MD | | ANUJ GALLEGO MD | | ARAVIND WOLF MD | + + XR Chest 1 Vw (07/10/2009 5:33 AM PST) + + | Specimen | + + | | + + + + + | Narrative | Performed At | + + + | [facility] | | | [facility] [address] | | | , | | | [id number]/RADIOLOGY Patient Name: CLEMENTINE NUNEZ Date of : | | | 1940 Medical Record: [id number] Account: [id number] | | | CHRIS [address]/ Exam Date/Time: 07/10/2009 | | | 05:00 [...] 09:49 A | | | A A CHARMAINE/britni/[id number]/ | | | cc: MD FAISAL PERLA MD SAAD | | | MD CHRIS | | + + + + + | Procedure Note | + + | Howard, Rad Conversion - 01/25/2019 5:24 PM PDT | | [facility] | | [facility] [address] | | , | | | | [id number]/RADIOLOGY | | | | Patient Name: CLEMENTINE NUNEZ | | Date of : 1940 | | Medical Record: [id number] | | Account: [id number] | | I/P/ [id number]/ | | | | | | Exam [...] | A | | A | | TSG//[id number]/ | | cc: ROSALVA LOZADA MD | | FAISAL RUELAS MD | | ANUJ GALLEGO MD | + + XR Chest 1 Vw (07/09/2009 12:25 PM PST) + + | Specimen | + + | | + + + + + | Narrative | Performed At | + + + | [facility] | | | [facility] [address] | | | , | | | [id number]/RADIOLOGY Patient Name: CLEMENTINE NUNEZ Date of : | | | 1940 Medical Record: [id number] Account: [id number] | | | I/P/[facility] / Exam Date/Time: 07/09/2009 | | | [...] | overlying the stomach. A right sided Carth[place]-Gideon catheter is seen with | | | [...] 3 cm. 2. Right sided central line, Carthage-Gideon | | | catheter, left sided chest [...] P P | | | 05:09 P /[facility]/[id number]/ cc: MD VERONICA PERLA | | | DO ANUJ LOPEZ MD | | + + + + + | Procedure Note | + + | Nilay Lawrence Conversion - 01/25/2019 5:24 PM PDT | | [facility] | | [facility] [address] | | , | | | | [id number]/RADIOLOGY | | | | Patient Name: CLEMENTINE NUNEZ | | Date of : 1940 | | Medical Record: [id number] | | Account: [id number] | | I/P/CCC | | | | | | Exam [...] the stomach. A right | | sided [place]th[place]-Gideon catheter is seen with its tip in [...] | | 2. Right sided central line, Carth[place]-Gideon catheter, left sided chest tube | | [...] | P | | P | | EI/[facility]/[id number]/ | | cc: ROSALVA LOZADA MD | [...] that was | | | non-reportable in [employer] system. | | + + + + + | Procedure Note | + + | Nilay Lawrence Conversion - 01/25/2019 5:24 PM PDT See medical record for report. This is | | a converted record that was non-reportable in [employer] system. | + + XR Chest 2 Vws (07/08/2009 12:33 PM PST) + + | Specimen | + + | | + + + + + | Narrative | Performed At | + + + | [facility] | | | [facility] [address] | | | , | | | [id number]/RADIOLOGY Patient Name: CLEMENTINE NUNEZ Date of : | | | 1940 Medical Record: [id number] Account: [id number] | | | I/P/MADIHA 85040/ Exam Date/Time: 07/08/2009 | | | 11:50 [...] 08:59 A | | | P A RAMYK/jovanna/[id number]/ | | | cc: JIM SANCHEZ MD | | | ANUJ GALLEGO MD | | + + + + + | Procedure Note | + + | Nilay Lawrence Conversion - 01/25/2019 5:24 PM PDT | | [facility] | | [facility] [address] | | , | | | | [id number]/RADIOLOGY | | | | Patient Name: CLEMENTINE NUNEZ | | Date of : 1940 | | Medical Record: [id number] | | Account: [id number] | | I/P/MADIHA 77209/ | | | | | | Exam [...] | P | | A | | VAChi/jovanna/[id number]/ | | cc: RANJIT TRONCOSO [facility] | | MARCIA MOTLEY MD | | ANUJ GALLEGO MD | + + ECHO Complete (07/07/2009 2:30 PM PST) + + | Specimen | + + | | + + + + + | Narrative | Performed At | + + + | [id number] | | | Page 1 ECHO [facility] NAME: | | | [place] [address] MEDICAL RECORD #: | | | [id number] | | | DATE OF : 1940 ORDER | | | NUMBER: [id number] EXAM DATE/TIME: 07/07/2009 13:49 PERFORMING | | | PHYSICIAN: Anuj Gallego MD ORDER DETAIL: 2069 ORDER | [...] 56.72 ml D-E Excursion: 1.44 cm E-F Lipscomb: 0.04 | | | m/s EPSS: 0.76 [...] TV A Obed: 0.65 m/s TV Dec Lipscomb: 1.90 m/s2 TV Dec Time: | | | 260.30 ms TV E Obed: 0.49 m/s TV E/A Ratio: 0.75 | | | Radio Script Writer: EZEKIEL Authenticated by: Anuj Gallego MD Report Date/Time: | | | 07-08-2009 08:56:44 | | + + + + + | Procedure Note | + + | Nilay Lawrence - 01/25/2019 5:24 PM PDT [id number] | | Page [address] [place] [address] NAME: [place], [place] | | [address] : ACCOUNT #: | | [id number]: DATE OF : 2ORDER NUMBER: | | [id number] DATE/TIME: 07/07/2009 13:49PERFORMING PHYSICIAN: Anuj SUERO | | DETAIL: 2069 DESCRIPTION: ECHO CARDIAC [...] mlLAESV Index (A-L): 19.90 ml/m2LAAs A2C: 16.02 [id number] A-L | | A2C: 39.78 mlLALs A2C: 5.48 cmLAAs A4C: 13.91 [id number] A-L A4C: 30.58 mlLALs | | A4C: 5.37 cmAo Diam: 2.60 cmAV Cusp: 1.30 cmLA Diam: 3.63 cmLA/Ao: 1.39%FS: | | 37.5 %EDV(Teich): 83.61 mlEF(Teich): 67.83 %ESV(Teich): 26.89 mlIVSd: 1.04 | | cmIVSs: 1.27 cmLVIDd: 4.31 cmLVIDs: 2.69 cmLVPWd: 1.04 cmLVPWs: 1.27 | | cmSV(Teich): 56.72 mlD-E Excursion: 1.44 cmE-F Lipscomb: 0.04 m/sEPSS: 0.76 cmIVC | | diameter: 1.27 cmIVC collapse: 0.31 cmIVC % collapse: 73.72 %HR: 81.96 BPMAV | | maxP.03 mmHgAV meanP.44 mmHgAV Vmax: 1.50 m/Shreyas Vmean: 0.99 m/Shreyas VTI: | | 26.02 cmAVA Vmax: 1.39 cm2AVA (VTI): 1.60 yx3SEFP Dopp: 1.83 l/emhr4XPQW Dopp: | | 3.25 l/minHR: 78.02 BPMLVOT [...] A Obed: | | 0.65 m/sTV Dec Lipscomb: 1.90 m/s2TV Dec Time: 260.30 msTV E Obed: 0.49 m/sTV E/A | | Ratio: 0.75 Radio Script Writer: MIKAuthenticated by: Anuj Gallego MDReport Date/Time: | | 07-08-2009 08:56:44 | |LVIDd: [...] | |D-E Excursion: 1.44 cm | |E-F Lipscomb: 0.04 m/s | |EPSS: 0.76 cm | [...] A Obed: 0.65 m/s | |TV Dec Lipscomb: 1.90 m/s2 | |TV Dec Time: 260.30 ms | |TV E Obed: 0.49 m/s | |TV E/A Ratio: 0.75 | | | |Radio Script Writer: EZEKIEL | |Authenticated by: Anuj Gallego MD | |Report Date/Time: 07-08-2009 08:56:44 | + + US Veins Extremiity Bilateral (07/07/2009 2:10 PM PST) + + | Specimen | + + | | + + + + + | Narrative | Performed At | + + + | [facility] | | | [facility] [address] | | | , | | | [id number]/RADIOLOGY Patient Name: CLEMENTINE NUNEZ Date of : | | | 1940 Medical Record: [id number] Account: [id number] | | | I/P/MADIHA [id number]/ Exam Date/Time: 07/07/2009 | | | 08:00 [...] 09:58 P P | | | P CASIMIRO/gracie/[id number]/ cc: MARCIA MOTLEY MD | | | ANUJ GALLEGO MD | | + + + + + | Procedure Note | + + | Howard, Rad Conversion - 01/25/2019 5:24 PM PDT | | [facility] | | [facility] [address] | | , | | | | [id number]/RADIOLOGY | | | | Patient Name: CLEMENTINE NUNEZ | | Date of : 1940 | | Medical Record: [id number] | | Account: [id number] | | I/P/ 86029/ | | | | | | Exam [...] | P | | P | | CASIMIRO/gracie/[id number]/ | | cc: MARCIA MOTLEY MD | | ANUJ GALLEGO MD | + + VAS Carotid Duplex Bilateral (07/07/2009 2:01 PM PST) + + | Specimen | + + | | + + + + + | Narrative | Performed At | + + + | [facility] | | | [facility] [address] | | | , | | | [id number]/RADIOLOGY Patient Name: CLEMENTINE NUNEZ Date of : | | | 1940 Medical Record: [id number] Account: [id number] | | | I/P/CU [id number]/ Exam Date/Time: 07/07/2009 | | | 08:00 A Ordering Provider: ANUJ GALLEGO Order Detail: [id number] / | | | / HUS Exam Description: US CAROTID DOPPLER | | [...] vertebral arterial flow. Read by Jarocho TEMPLETON | | 07/07/2009 02:11 P Electronically Signed by MARCIA MOTLEY MD | | | 07/07/2009 09:58 P P | | | 02:33 P CASIMIRO/gracie/[id number]/ cc: MARCIA MOTLEY MD ANUJ | | | MD CHRIS | | + + + + + | Procedure Note | + + | Nilay Lawrence - 01/25/2019 5:24 PM PDT | | [facility] | | [facility] [address] | | , | | | | [id number]/RADIOLOGY | | | | Patient Name: CLEMENTINE NUNEZ | | Date of : 1940 | | Medical Record: [id number] | | Account: [id number] | | I/P/CU [id number]/ | | | | | | Exam [...] | P | | P | | [facility]/gracie/[id number]/ | | cc: MARCIA MOTLEY MD | | ANUJ GALLEGO MD | + + CV CARDIAC PROCEDURE (07/06/2009 4:45 PM PST) + + | Specimen | + + | | + + + + + | Narrative | Performed At | + + + | [facility] | | | [facility] [address] | | | , | | | [id number]/CARDIOLOGY Patient Name: CLEMENTINE NUNEZ Date of : | | | 1940 Medical Record: [id number] Account: [id number] | | | I/P/MADIHA 94865/ Exam Date/Time: 07/06/2009 | | | 03:41 [...] for possible closure device deployment. 5. A 6-Nauruan Mynx | | | closure device deployment at the right arteriotomy site. | | | INDICATIONS The patient is a very pleasant 69-year-old lady | | | who was recently admitted at [facility] after an episode | | | of chest pain. The patient was ruled out for a myocardial infarction | | | and discharged and subsequently was advised to have a stress test at | | | [facility] which was significantly abnormal, | | | [...] with 1% | | | lidocaine. A 6-Nauruan vascular sheath was inserted in the right [...] was pulled, and | | | a 6-Nauruan Mynx closure device was deployed at the [...] | segment and was filling distally via oqib-db-oubgi collaterals. | | | LEFT VENTRICULOGRAM Left [...] A | | | 09:51 P A /yoana/[id number]/ cc: CHING Sevilla | | | MD ANUJ DAI MD | | + + + + + | Procedure Note | + + | Nilay Lawrence Conversion - 01/25/2019 5:24 PM PDT | | [facility] | | [facility] [address] | | , | | | | [id number]/CARDIOLOGY | | | | Patient Name: CLEMENTINE NUNEZ | | Date of : 1940 | | Medical Record: [id number] | | Account: [id number] | | I/P/ [id number]/ | | | | | | Exam [...] closure device deployment. | | 5. A 6-Nauruan Mynx closure device deployment at the right arteriotomy | | site. | | | | INDICATIONS | | The patient is a very pleasant 69-year-old lady who was | | recently admitted at [facility] after an episode of chest | | pain. The patient was ruled out for a myocardial infarction and | | discharged and subsequently was advised to have a stress test at [facility] which was significantly abnormal, revealing | | [...] groin | | with 1% lidocaine. A 6-Nauruan vascular sheath was inserted in the right [...] sheath. The sheath was pulled, and a 6-Nauruan Mynx closure device was | | deployed [...] | segment and was filling distally via hnnq-yx-nnvco collaterals. | | | | LEFT VENTRICULOGRAM [...] | P | | A | | /yoana/[id number]/ | | cc: CHING DAI MD | | ANUJ GALLEGO MD | + + documented in this encounter Visit Diagnoses + + | Diagnosis | + + | Acute myocardial infarction, subendocardial infarction, initial episode of care (HCC) | | Acute myocardial infarction, subendocardial infarction, initial episode of care | + + documented in this encounter"
--- OUTSIDE RECORDS SUMMARY | ~2019-10-27 | XMS | Encounter Summary ---
Demographics + + + | Address | [address] | | | [place] [address] | + + + | Home Phone [...] [place], | | | | | [place] [address] | | + + + + + | Kellen Briones | ECON | [place] | | | | | [address] | | + + + + + Care Team Providers + +------+ + | Care Strip Stamp Straightener Name | Role | Phone | + +------+ + | Barb Marte | PCP | | + +------+ + Reason for Visit Evaluate & Treat [...] | | | | | lumbar | [address] | | | | | region | [address] | [address] | | | | | without | [place], | [place], [place] | | | |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 | [place] [address] | [address] | | | | | claudication | Phone: | Phone: | | | | | lumbar | [phone] | [phone] | | | | | | Fax: | Fax: | | | | | | [phone] | [phone] | + +--------+ + + + + Encounter Details +--------+---------+ + + + | Date | Type | Department | Care Team | Description | +--------+---------+ + + + | 06/04/ | Office | [facility] | Monster White MD | 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[facility] | [address] | lumbar region | | | | ORTHOPEDIC SPINE | [address] [place], [place] | (Primary Dx); Lumbar | | | | [address] | [address] | degenerative disc | | | | B [place], [place] | | disease | | | | [address] | | | | | | [phone] | | | +--------+---------+ + + + [...] + + + | Blood Pressure | 112/44 | 06/04/2019 1:46 PM | | | | | PST | | + + + + + | Pulse | 110 | 06/04/2019 1:46 PM | | | | | PST [...] Weight | 58.1 kg (128 lb) | 06/04/2019 1:46 PM | | | | | PST | | + + + + + | Height | 160 cm (5' 3") | 06/04/2019 1:46 PM | | | | | PST | | + + + + + | Body Mass Index | 22.67 | 06/04/2019 1:46 PM | | | | | PST | | + + + + + documented in this encounter Progress Notes Yifan Ware ARNP - 06/04/2019 1:50 PM PST Subjective: Chief Complaint: Low back pain with left more than right leg pain HPI: Patient returns to discuss her recent lumbar MRI and x-ray studies. At this point she is unable to ambulate any more than 50 to 100 feet without dependent on her walker. Sittin g is much more comfortable for her comparing it to standing or walking upright. Patient has tried numerous conservative treatment and would like to consider surgery as much as eugenia miguel. Location: lumbar Pain scale without medicine:10 Pain scale with medicine:10 Description and location: intense pain on the lower lumbar, radiates to the back of the lef t leg causing weakness and numbness, patient has has 8 falls in the past 3 months. 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 Employer: [employer] Tobacco Use Smoking status: Never Smoker Smokeless [...] reflux disease) Hyperlipidemia Hypertension Lumbar radiculopathy 07/23/2012 AR (myocardial infarction) ([facility]) Neck pain on right side 05/13/2013 Oxygen dependent 2 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 Snoring Spinal stenosis of lumbar region with zhlydeyqpqnhf-C0-H9 level moderately severe 2012 Past Surgical History: Procedure Laterality Date BELPHAROPTOSIS REPAIR 2008 bilateral bone spur left foot BREAST RECONSTRUCTION 3460-1077 About 10 surgeries CARPAL TUNNEL RELEASE Bilateral CERVICAL SPINE SURGERY Anterior 03/30/2016 Procedure: C3-4, C4-5, C5-6, C6-7 Anterior Cervical Discectomy w/ Fusion and Plating; Bryan geon: Irving Becerril DO; Location: [facility] MAIN OR CORONARY ARTERY BYPASS GRAFT 2010 HYSTERECTOMY, TOTAL ABDOMINAL 1969 MASTECTOMY, RADICAL 1987 [...] Rfl: DULoxetine (CYMBALTA) [address] capsule, 20 mg., Disp: , Rfl: 3 fentaNYL (DURAGESIC) 25 [...] Disp: , Rfl: 5 lisinopril (PRINIVIL, ZESTRIL) 5 mg tablet, Take 1 tablet by mouth Daily., Disp: 90 ta blet, Rfl: 3 magnesium, as oxide, 250 MG tablet, Take 250 mg by mouth Daily., Disp: , Rfl: metFORMIN (GLUCOPHAGE) 500 mg tablet, Take 500 mg by mouth nightly., Disp: , Rfl: nitroglycerin (NITROSTAT) 0.4 mg SL tablet, Place 0.4 mg under the tongue every 5 rodriguez andrea as needed., Disp: , Rfl: omeprazole (PRILOSEC) 40 MG capsule, Take 40 mg by mouth Daily., Disp: , Rfl: 2 potassium chloride (KLOR-CON) 10 MEQ ER tablet, Take 10 mEq by mouth., Disp: , Rfl: Family History Problem Relation Age of Onset Alcohol abuse Father Heart disease Father Migraines Daughter Other (see comment) Daughter Depression Migraines Son Other (see comment) Son Seizure disorder, snores Cancer Mother Heart disease Mother Hypertension Mother Arthritis Mother Hypertension Daughter COPD Daughter Arthritis Daughter High blood pressure Daughter Other (see comment) Daughter snores Review of Systems Constitutional: Negative for activity change, appetite change, fatigue, fever and unexpecte d weight change. HENT: Negative for congestion, drooling, ear pain, facial swelling, hearing loss, sinus pre ssure, sinus pain, sore throat, tinnitus and trouble swallowing. Eyes: Negative for discharge, redness, itching and visual disturbance. Respiratory: Negative for apnea, cough, choking, chest tightness, shortness of breath and w heezing. Cardiovascular: Negative for chest pain, palpitations and leg swelling. Gastrointestinal: Positive for nausea. Negative for abdominal distention, abdominal pain, a nal bleeding, blood in stool, constipation, diarrhea, rectal pain and vomiting. Endocrine: Negative for cold intolerance, heat intolerance and polyuria. Genitourinary: Negative for decreased urine volume, difficulty urinating, flank pain, frequ ency, menstrual problem, pelvic pain, urgency and vaginal pain. Musculoskeletal: Positive for myalgias. Negative for arthralgias, back pain, gait problem, joint swelling, neck pain and neck stiffness. Skin: Negative for rash and wound. Allergic/Immunologic: Negative for environmental allergies and food allergies. Neurological: Positive for weakness and numbness. Negative for dizziness, tremors, speech d ifficulty, light-headedness and headaches. Hematological: Does not bruise/bleed easily. Psychiatric/Behavioral: Negative for agitation, behavioral problems, confusion, decreased c oncentration, dysphoric mood, hallucinations, sleep disturbance and suicidal ideas. The cintia ent is not nervous/anxious and is not hyperactive. Objective: BP 112/44 | Pulse 110 | Ht 1.6 m (5' 3") | Wt 58.1 kg (128 lb) | BMI 22.67 kg/m PE: Forward bias gait on ambulation. Difficulty heel-to-toe walk bilaterally left more than ri ght. Weakness was elicited over her left dorsiflexion and EHL strength at 4+/5 compared to 5/5 on the right side. Diminished left L5 distribution. IMAGING: IMPRESSION: Moderate to severe multilevel degenerative disc disease and facet spondylosis throughout the lumbar spine. Levoconvex curvature of the lumbar spine. Grade 1 anterolisthesis of L4 over L5 which is worsened on flexion in comparison to extension. Dictated and Signed by: Justo Norton MD Electronically signed: 04/09/2019 2:39 PM Assessment: 1. Spondylolisthesis of lumbar region 2. Lumbar degenerative disc disease In all intensive purposes, ideally L1-S1 lumbar fusion may need to be pursued. However giv en her age and history of osteoporosis this would be quite difficult for her to recover from a surgical standpoint. Recommend focusing on the severity of the listhesis at L4-5 that ap pears to move quite a bit especially on flexion and extension x-rays. Recommend lumbar fusion at L4-5 knowing that further fusion at other levels may need to be pursued depending on her recovery. Plan is to submit for surgery as above. We discussed the specific risks of the XLIF procedure including bleeding, infection, injury to the nervous structures, abdominal/chest organs, vascular injury, thigh weakness, femoral dysesthesia, csf leak, medical complications, pseudoarthrosis, adjacent level degeneration, need for further surgery, even . The procedure and its indications, the alternative t reatment options including non-treatment, the anticipated benefits of the procedure and alte rnatives, and the possible risks and complications of the procedure are addressed with the p atient and all questions were answered. The patient wishes to proceed with surgical interve ntion. Orders Placed This Encounter Procedures Case Request - OR/ENDO/ASC/OB: FUSION LUMBAR W/ LATERAL APPROACH (XLIF) L4/5 Order Specific Question: Patient Status Answer: IP admit [108] Order Specific Question: Date preference Answer: Next Available Order Specific Question: Case classification Answer: Elective [10] Order Specific Question: Assistants Answer: SHELBY Calvo Order Specific Question: Post-op destination Answer: Nursing Unit [80] Order Specific Question: Send directly to hospital calciner feeder (bypassing clinic staff) Answer: No Note: We spent approximately 25 minutes in kmzp-rb-zuyy time of which greater than 50% was [...]
--- OUTSIDE RECORDS SUMMARY | ~2019-10-27 | XMS | Encounter Summary ---
Demographics + + + | Address | [address] | | | [place] [address] | + + + | Home Phone [...] [place], | | | | | [place] [address] | | + + + + + | Kellen Briones | ECON | [place], [place] | | | | | [address] | | + + + + + Care Team Providers + +------+ + | Care Endless Bed Drum Sander Name | Role | Phone | [...] [address] | | | | | [place], [place] | [place] [address] | | | | | [address] | [phone] | | | | | [phone] | | | +--------+ + + + [...] At | + + + | [facility] | | | [facility] [address] | | | , | | | [id number]/RADIOLOGY Patient Name: CLEMENTINE WINCHESTER Date of : | | | 1940 Medical Record: [id number] Account: [id number] // | | | Exam Date/Time: 07/06/2009 [...] 09:44 P | | | P P [facility]/britni/[id number]/ | | | cc: MD MARCIA WHITE MD SARAVANA | | | MD LUZ ELENA | | + + + + + | Procedure Note | + + | Nilay Lawrence - 01/25/2019 5:24 PM PDT | | [facility] | | [facility] [address] | | , | | | | [id number]/RADIOLOGY | | | | Patient Name: CLEMENTINE WINCHESTER | | Date of : 1940 | | Medical Record: [id number] | | Account: [id number] | | // | | | | | | Exam Date/Time: 07/06/2009 11:15 A | | Ordering Provider: KREA LAGUNA | | Order Detail: [id number] / [...] | P | | P | | [facility]/dg/[id number]/ | | cc: YANNICK MCKINNEY MD | | MARCIA MOTLEY MD | | KERA LAGUNA MD | + + documented in this encounter Visit Diagnoses + + | Diagnosis | + + | Chest pain, unspecified | + + documented in this encounter"
--- OUTSIDE RECORDS SUMMARY | ~2019-10-27 | XMS | Encounter Summary ---
Demographics + + + | Address | [address] | | | [place] [address] | + + + | Home Phone [...] [place], | | | | | [place] [address] | | + + + + + | Kellen Briones | ECON | [place], [place] | | | | | [address] | | + + + + + Care Team Providers + +------+ + | Care Laborer Dairy Farm Name | Role | Phone | + [...] Thoracic or | [place], | [address] | | | | | lumbosacral | Tk Monreal MD | [place], | | | | | neuritis or | [address] | [place] | | | | | | ST [place] | [address] | | | | | radiculitis, | [place], [place] | Phone: | | | | | unspecified | [address] | [phone] | | | | | Procedures | Phone: | Fax: | | | | | AL INJECT | [phone] | [phone] | | | | | ANES/STEROID | Fax: | | | | | | FORAMEN | [phone] | | | | | | LUMBAR/SACRA [...] + + | 10/06/ | Hospital | [facility] | Tk Ann | Lumbar radiculopathy | | 2013 | Encounter | MED CTR XRAY [address] | T, [address] | | | | | [place] | [facility] [place] | | | | | [place] [address] | [address] | | | | | [phone] | | | | | | | Hammer Operator [facility] | | | | | | [place] [...] 10/06/13 Bilateral Transforaminal Epidural Steroid Injections | [facility] | | Diagnosis: Lumbar radiculopathy ICD-9 Code 724.4 Ms. Clementine Cortez | [facility] | | Annabella presents to the fluoroscopy suite for fluoroscopically-guided | [facility] | | bilateral L5-S1 transforaminal epidural [...] | + + + + + | [facility] | [address] | [place] | [phone] | | [facility] | | [address] | | | - IMAGING | | [...] | | | | | INTRATHECAL, ONCE, Sat10/06/13 at | | PM PDT | | [...]
--- OUTSIDE RECORDS SUMMARY | ~2019-10-27 | XMS | Encounter Summary ---
Demographics + + + | Address | [address] | | | [place] [address] | + + + | Home Phone [...] [place], | | | | | [place] [address] | | + + + + + | Kellen Briones | ECON | [place], [place] | | | | | [address] | | + + + + + Care Team Providers + +------+ + | Care Butt Maker Name | Role | Phone | [...] + + | 05/02/ | Telephone | [facility] | Irving Becerril, | Paperwork | | 2016 | | NEUROSURGERY [address] | DO [address] | | | | | [address] | [address] [place], [place] | | | | | [place], [place] | [id number] | | | | | [address] | | | | | | [phone] | | | +--------+ + + + [...]
--- OUTSIDE RECORDS SUMMARY | ~2019-10-27 | XMS | Encounter Summary ---
Demographics + + + | Address | [address] | | | [place] [address] | + + + | Home Phone [...] [place], | | | | | [place] [address] | | + + + + + | Kellen Briones | ECON | [place], [place] | | | | | [address] | | + + + + + Care Team Providers + +------+ + | Care Roadway Technician Name | Role | Phone | [...] + | 08/27/ | Telephone | [facility] | Ramon Real | Other | | 2012 | | [address] | MD Idris [address] | | | | | [address] | St [place], [place] | | | | | [place], [place] | [address] | | | | | [address] | [phone] | | | | | [phone] | | | +--------+ + + + [...]
--- OUTSIDE RECORDS SUMMARY | ~2019-10-27 | XMS | Encounter Summary ---
Demographics + + + | Address | [address] | | | [place] [address] | + + + | Home Phone [...] [place], | | | | | [place] [address] | | + + + + + | Kellen Briones | ECON | [place], [place] | | | | | [address] | | + + + + + Care Team Providers + +------+ + | Care Medical Customer Service Representative Name | Role | Phone | [...] + | 08/27/ | Telephone | [facility] | Ramon Real | Other | | 2012 | | [address] | MD Idris [address] | | | | | [address] | St [place], [place] | | | | | [place], [place] | [address] | | | | | [address] | [phone] | | | | | [phone] | | | +--------+ + + + [...]
--- OUTSIDE RECORDS SUMMARY | ~2019-10-27 | XMS | Encounter Summary ---
Demographics + + + | Address | [address] | | | [place] [address] | + + + | Home Phone [...] [place], | | | | | [place] [address] | | + + + + + | Kellen Briones | ECON | [place], [place] | | | | | [address] | | + + + + + Care Team Providers + +------+ + | Care Solder Cream Maker Name | Role | Phone | [...] + + | 05/20/ | Office | [facility] | Tk Ann | Lumbar radiculopathy | | 2013 | Visit | PHYSIATRY [address] | TMD [address] | (Primary Dx); DDD | | | | [address] | [address] [place] | (degenerative disc | | | | [place] | [address] | disease), lumbar; | | | | [address] | | Facet arthritis of | | | | [phone] | | lumbar region-Most | | | [...] with | | | | | | dgwsbdlngchto-H0-K8 | | | | | | level [...] of the procedure you must provide a dedicated regional driver to take you home. For all [...] spinal stenosis. Her last injection was in [facility] of this year. She reports that [...] currently uses [place], Flexeril and ga bapentin. Patient's medications, allergies, [...] has no apparent deficits with short or snf memory. She has appropriate fund of knowledge [...] radiculopathy ICD-9 Code 724.4 Clementine Phoenix | [facility] | | Annabella presents to the fluoroscopy suite for fluoroscopically-guided | [facility] | | bilateral L5-S1 transforaminal [...] | + + + + + | [facility] | [address] | [place], [place] | [phone] | | [facility] | | [address] | | | - IMAGING | | [...] | Spinal stenosis of lumbar region with fuqfzrcblvjhx-K5-B8 level moderately severe | | Spinal stenosis, lumbar region, without neurogenic claudication | + + documented in this encounter
--- OUTSIDE RECORDS SUMMARY | ~2019-10-27 | XMS | Encounter Summary ---
Demographics + + + | Address | [address] | | | [place] [address] | + + + | Home Phone [...] [place], | | | | | [place] [address] | | + + + + + | Kellen Briones | ECON | [place], [place] | | | | | [address] | | + + + + + Care Team Providers + +------+ + | Care Administrative Support Technician Name | Role | Phone | [...] + + | 07/28/ | Telephone | [facility] | Patrick Gaffney MD [address] | Records Request | | 2012 | | NEUROLOGY [place] | [facility] | | | | | [address] [facility], | BRAD D JIGNA | | | | | TEMI LEAL [address] [place] [address] | [place] [address] | | | | | [place] [address] | [phone] | | | | | [phone] | | | +--------+ + + + [...]
--- OUTSIDE RECORDS SUMMARY | ~2019-10-27 | XMS | Encounter Summary ---
Demographics + + + | Address | [address] | | | [place] [address] | + + + | Home Phone [...] [place], | | | | | [place] [address] | | + + + + + | Kellen Briones | ECON | [place] | | | | | [address] | | + + + + + Care Team Providers + +------+ + | Care Film Rental Clerk Name | Role | Phone | + +------+ + | Barb Marte | PCP | | + +------+ + Encounter Details +--------+ + + + + | Date | Type | Department | Care Team | Description | +--------+ + + + + | 01/31/ | Hospital | [facility] | Conversion | Diagnosis unknown | | 2018 | Encounter | CONVERSION DEP 888 | Transaction, | | | | | [place] | Provider Unknown | | | | | [place] | [phone] | | | | | [address] | | | | | | [phone] | | | +--------+ + + + [...]
--- OUTSIDE RECORDS SUMMARY | ~2019-10-27 | XMS | Encounter Summary ---
Demographics + + + | Address | [address] | | | [place] [address] | + + + | Home Phone [...] [place], | | | | | [place] [address] | | + + + + + | Kellen Briones | ECON | [place], [place] | | | | | [address] | | + + + + + Care Team Providers + +------+ + | Care Sales Contractor Name | Role | Phone | + [...] + + | 08/18/ | Telephone | [facility] | Susy Abdullahi | Other (returning | | 2013 | | PHYSIATRY [address] | N, RN | patient's call) | | | | [address] | | | | | | [place] | | | | | | [address] | | | | | | [phone] | | | +--------+ + + + [...]
--- OUTSIDE RECORDS SUMMARY | ~2019-10-27 | XMS | Encounter Summary ---
Demographics + + + | Address | [address] | | | [place] [address] | + + + | Home Phone [...] [place], | | | | | [place] [address] | | + + + + + | Kellen Briones | ECON | [place], [place] | | | | | [address] | | + + + + + Care Team Providers + +------+ + | Care Fire Engine Operator Name | Role | Phone | [...] | | | Procedures | [address] | [facility] | | | | | NM Nuclear | [address] | Med 1100 | | | | | Stress Test | [address] | [address] | | | | | (Vasodilator | [place], [place] | [place], [place] | | | | | ) | [address] | [address] | | | | | | Phone: | Phone: | | | | | | [phone] | [phone] | | | | | | Fax: | Fax: | | | | | | [phone] | [phone] | +--------+--------+ + + + + Reason [...] | | | Procedures | [address] | [facility] | | | | | NM Nuclear | [address] | Med 1100 | | | | | Stress Test | [address] | [address] | | | | | (Vasodilator | [place], [place] | [place] | | | | | ) | [address] | [address] | | | | | | Phone: | Phone: | | | | | | [phone] | [phone] | | | | | | Fax: | Fax: | | | | | | [phone] | [phone] | +--------+--------+ + + + + Encounter Details +--------+ + + + + | Date | Type | Department | Care Team | Description | +--------+ + + + + | 02/16/ | Hospital | [facility] | Agata Tinajero DO | Hx of CABG | | 2019 | Encounter | CARDIOLOGY CYCLONE | [address] | | | | | NUC MED [address] | [place] [place], [place] | | | | | [address] | [address] | | | | | [place], [place] | | | | | | [address] | | | | | | [phone] | | | +--------+ + + + [...]
--- OUTSIDE RECORDS SUMMARY | ~2019-10-27 | XMS | Encounter Summary ---
Demographics + + + | Address | [address] | | | [place] [address] | + + + | Home Phone [...] [place], | | | | | [place] [address] | | + + + + + | Kellen Briones | ECON | [place] | | | | | [address] | | + + + + + Care Team Providers + +------+ + | Care Touring Production Manager Name | Role | Phone [...] | | | | | [facility] [facility] | [place] [address] | | | | | [place] [address] | | | | | | [phone] | | | +--------+ + + + [...]
--- OUTSIDE RECORDS SUMMARY | ~2019-10-27 | XMS | Clinical Summary ---
Demographics + + + | Address | [address] | | | [place] [address] | + + + | Home Phone [...] [place], | | | | | [place] [address] | | + + + + + | Kellen Briones | ECON | [place] | | | | | [address] | | + + + + + Care Team Providers + +------+ + | Care Extractor Machine Operator Name | Role | Phone [...] 03/30/2016 | + + + | H/O PR (myocardial infarction) | 03/30/2016 | + + [...] | Spinal stenosis of lumbar region with rmmlojbaohixk-J4-N1 level | 07/23/2012 | | moderately severe [...] | Hyperlipidemia | | + +---+ | PR (myocardial infarction) | | + +---+ | [...] | | | | | | complication ([facility]); | | 07/29/ | | | [...] | + +--------+--------+ +--------+--------+--------+ | Bone Chip [facility] 15cc | Bone | N/A: | MUSCULOSKEL | | 04/20/ | [id number] | | Frzdr - | | Spine | ETAL | | 2021 | | | [id number]: | | Lumbar | TRANSPLA - | | | /[id number] | | Qty: 1 on 07/22/2019 by Christopher, | | | [facility] | | | 601170 | | MD Monster at [facility] | | | | | | 032 | | [facility] | | | | | | /NA | + +--------+--------+ +--------+--------+--------+ | Cage Funmilayo Ptc [id number] - | Generi | Anteri | [employer] - | | 10/20/ | [id number] | | [id number]: Qty: 1 on | c | or: | MEDT | | 2023 | 4 / | | 03/30/2016 by Irving Becerril | | Spine | | | | /80BS | | DO Chloe at [facility] | | Cervic | | | | | | [facility] | | al | | | | | + +--------+--------+ +--------+--------+--------+ | Cage Funmilayo Ptc [id number] - | Generi | Anteri | [employer] - | | 01/03/ | [id number] | | [id number]: Qty: 1 on | c | or: | MEDT | | 2022 | 4 / | | 03/30/2016 by Irving Becerril | | Spine | | | | /[id number] | | A, DO at [facility] | | Cervic | | | | | | [facility] | | al | | | | | + +--------+--------+ +--------+--------+--------+ | Cage Funmilayo Ptc [id number] - | Generi | Anteri | [employer] - | | 10/20/ | [id number] | | [id number]: Qty: 1 on | c | or: | MEDT | | 2023 | 4 / | | 03/30/2016 by Irving Becerril | | Spine | | | | /[id number] | | A, DO at [facility] | | Cervic | | | | | | [facility] | | al | | | | | + +--------+--------+ +--------+--------+--------+ | Cage Funmilayo Ptc [id number] - | Generi | Anteri | [employer] - | | 10/20/ | [id number] | | [id number]: Qty: 1 on | c | or: | MEDT | | 2023 | 4 / | | 03/30/2016 by Irving Becerril | | Spine | | | | /80BS | | A, DO at [facility] | | Cervic | | | | | | [facility] | | al | | | | | + +--------+--------+ +--------+--------+--------+ | Melvin Mod - SnaImplanted: | Generi | | NUVASIVE - | | | [id number] | | Qty: 4 on 07/22/2019 by Christopher, | c | | NVSV | | | 11 /NA | | MD Monster at [facility] | | | | | | /NA | | [facility] | | | | | | | + +--------+--------+ +--------+--------+--------+ | Josiah Mas Ti Lord 5.5x40mm - | Generi | | NUVASIVE - | | | [id number] | | SnaImplanted: Qty: 2 on | c | | NVSV | | | 40 /NA | | 07/22/2019 by Monster White, | | | | | | /NA | | at [facility] | | | | | | | [facility] | | | | | | | + +--------+--------+ +--------+--------+--------+ | Putty Bone Dbm Grftn 2.5cc - | Graft | Anteri | [facility] - | | 06/30/ | [id number] | | [id number]: Qty: 1 | | or: | MEDT | | 2019 | | | on 03/30/2016 by Jerrica, | | Spine | | | | /[id number] | | Irving Corona DO at [facility] | | Cervic | | | | 6-016 | | [facility] | | al | | | | / | + +--------+--------+ +--------+--------+--------+ | Strip Mstrgrft 10x2.0x.6 12cc | Graft | N/A: | [employer] - | | 12/31/ | [id number] | | - SnaImplanted: Qty: 1 on | | Spine | MEDT | | 2021 | 0 /NA | | 07/22/2019 by Monster White, | | Lumbar | | | | /[id number] | | at [facility] | | | | | | 9J4 | | [facility] | | | | | | | + +--------+--------+ +--------+--------+--------+ | Bone Xgrft Infus Kts Sm - | Graft | N/A: | [employer] - | | 01/31/ | [id number] | | SnaImplanted: Qty: 1 on | | Spine | MEDT | | 2020 | 0 /NA | | 07/22/2019 by Monster White, | | Lumbar | | | | /[id number] | | at [facility] | | | | | | [id number] | | [facility] | | | | | | | + +--------+--------+ +--------+--------+--------+ | Plate Ant Wassaic Cerv 75mm | Plate | Anteri | [employer] - | | | [id number] | | - [id number]: Qty: 1 | | or: | MEDT | | | 5 / / | | on 03/30/2016 by Jerrica, | | Spine | | | | | | Irving Corona DO at [facility] | | Cervic | | | | | | [facility] | | al | | | | | + +--------+--------+ +--------+--------+--------+ | Screw Slf-Drl V/A 4.0x16mm - | Screw | Anteri | SOFAMOR | | | [id number] | | [id number]: Qty: 5 on | | or: | DANEK - DIV | | | 6 / / | | 03/30/2016 by Irving Becerril | | Spine | [facility] | | | | | DO Chloe at [facility] | | Cervic | - S[facility]K | | | | | [facility] | | al | | | | | + +--------+--------+ +--------+--------+--------+ | Screw Slf-Drl V/A 4.0x17mm - | Screw | Anteri | SOF[facility]OR | | | [id number] | | [id number]: Qty: 4 on | | or: | DANEK - DIV | | | | | 03/30/2016 by Irving Becreril | | Spine | [facility] | | | | | A, DO at [facility] | | Cervic | - [facility] | | | | | [facility] | | al | | | | | + +--------+--------+ +--------+--------+--------+ | Screw Slf- V/A 4.5x15mm - | Screw | Anteri | [facility] - | | | [id number] | | [id number]: Qty: 1 on | | or: | MEDT | | | / | | 03/30/2016 by Irving Becerril | | Spine | | | | | | A, DO at [facility] | | Cervic | | | | | | [facility] | | al | | | | | + +--------+--------+ +--------+--------+--------+ | Screw Alvina Arreguin | Screw | | NUVASIVE - | | | [id number] | | 5.5mm - SnaImplanted: Qty: 4 | | | NVSV | | | 00 /NA | | on 07/22/2019 by Christopher, | | | | | | /NA | | MD Monster at [facility] | | | | | | | | [facility] | | | | | | | + +--------+--------+ +--------+--------+--------+ | Cage Mod Xlw 15deg [id number] | | N/A: | NUVASIVE - | | 01/14/ | [id number] | | - SnaImplanted: Qty: 1 on | | Spine | NVSV | | 2023 | 5P2 | | 07/22/2019 by Monster White, | | Lumbar | | | | /NA | | MD at [facility] | | | | | | /[id number] | | [facility] | | | | | | 5 | + +--------+--------+ +--------+--------+--------+ | Screw Shk Mas Mod 6.5x50mm 2c | | | NUVASIVE - | | | [id number] | | - SnaImplanted: Qty: 2 on | | | NVSV | | | 50 /NA | | 07/22/2019 by Monster White, | | | | | | /NA | | MD at [facility] | | | | | | | | [facility] | | | | | | | + +--------+--------+ +--------+--------+--------+ | Screw Shk Mas Mod 7.5x50mm 2c | | | NUVASIVE - | | | [id number] | | - SnaImplanted: Qty: 2 on | | | NVSV | | | 50 /NA | | 07/22/2019 by Monster White, | | | | | | /NA | | at [facility] | | | | | | | | [facility] | | | | | | | [...] +--------+ +---------+--------+ | MEDICARE | MEDICA | [id number] | | [phone] | | Medica | | | RE | | 007-Pr | 5 | | re | | | PART A | | esent | | | | | | AND B | | | | | | + +--------+ +--------+ +---------+--------+ | AARP | AARP | [id number] | 06/03/19 | [phone] | | Indemn | | | MDCR | | 19-Pre | 0 | | ity | | | SUPPL | | sent | | | | + +--------+ +--------+ +---------+--------+ | | CHAMPV | [id number] | | [phone] | Indemn | | | A | | 997-Pr | 7 | | ity | | | | | esent | | | | + +--------+ +--------+ +---------+--------+ | MEDICARE | MEDICA | [id number] | | [phone] | | Medica | | | RE | | 012-Pr | 5 | | re | | | PART A | | esent | | | | | | AND B | | | | | | + +--------+ +--------+ +---------+--------+ | AARP | AARP | [id number] | 06/03/19 | [phone] | | Indemn | | | MDCR | | 19-Pre | 0 | | ity | | | SUPPL | | sent | | | | + +--------+ +--------+ +---------+--------+ | KARY | CHAMPV | [id number] | | [phone] | | Indemn | [...] + +--------+ +--------+ + + | Clementine Winchestre | Person | Self | [birth year] | [address] | | | al/Fam | | 1940 | [phone] | [place] | | | amanuel | | | 6 (Home) | [address] | + +--------+ +--------+ + + | Clementine Winchester | Person | Self | [birth year] | | [address] | | | al/Fam | | 1940 | [phone] | [place] | | | amanuel | | | 6 (Home) | [address] | | | | | | [phone] | | | | | | | 3 (Work) | | + +--------+ +--------+ + + Advance Directives + + + + + | Type | Date Recorded | Patient | Explanation | | | | Production Grader | | + + + + + | Power of | | | | | Supervisor Bakery Sanitation | | | | + + + + + | Power of | 07/30/2019 11:54 | | | | Supervisor Bakery Sanitation | AM | | | + + [...]
--- OUTSIDE RECORDS SUMMARY | ~2019-10-27 | XMS | Encounter Summary ---
Demographics + + + | Address | [address] | | | [place] [address] | + + + | Home Phone [...] [place], | | | | | [place] [address] | | + + + + + | Kellen Briones | ECON | [place], [place] | | | | | [address] | | + + + + + Care Team Providers + +------+ + | Care Director Of Software Development Name | Role | Phone | [...] + + | 03/27/ | Telephone | [facility] | Monster White MD | Imaging | | 2019 | | [facility] | [address] | | | | | ORTHOPEDIC SPINE | [address] [place], [place] | | | | | [address] | [address] | | | | | [place], [place] | | | | | | [address] | | | | | | [phone] | | | +--------+ + + + [...]
--- OUTSIDE RECORDS SUMMARY | ~2019-10-27 | XMS | Encounter Summary ---
Demographics + + + | Address | [address] | | | [place] [address] | + + + | Home Phone [...] [place], | | | | | [place] [address] | | + + + + + | Kellen Briones | ECON | [place], [place] | | | | | [address] | | + + + + + Care Team Providers + +------+ + | Care Radiation Control Worker Name | Role | Phone | [...] + + | 01/07/ | Telephone | [facility] | Tk Ann | Injections | | 2012 | | ORTHOPEDIC SURGERY | MD Jocelin [address] | | | | | [address] [place] [address] | [place], [place] | | | | | [place], [place] | [address] | | | | | [address] | | | | | | [phone] | | | +--------+ + + + [...]
--- OUTSIDE RECORDS SUMMARY | ~2019-10-27 | XMS | Encounter Summary ---
Demographics + + + | Address | [address] | | | [place] [address] | + + + | Home Phone [...] [place], | | | | | [place] [address] | | + + + + + | Kellen Briones | ECON | [place], [place] | | | | | [address] | | + + + + + Care Team Providers + +------+ + | Care Manager Garage Name | Role | Phone | + [...] + + | 08/01/ | Telephone | [facility] | Ramon Real | Other | | 2012 | | [address] | MD Idris [address] | | | | | [address] | [address] [place], [place] | | | | | [place], [place] | [address] | | | | | [address] | [phone] | | | | | [phone] | | | +--------+ + + + [...]
--- OUTSIDE RECORDS SUMMARY | ~2019-10-27 | XMS | Encounter Summary ---
Demographics + + + | Address | [address] | | | [place] [address] | + + + | Home Phone [...] [place], | | | | | [place] [address] | | + + + + + | Kellen Briones | ECON | [place], [place] | | | | | [address] | | + + + + + Care Team Providers + +------+ + | Care Granite Polisher Name | Role | Phone | + [...] | arthritis of | [address], | [place], [place] | | | | | cervical | [address] | [address] Phone: | | | | | region DDD | [place], [place] | [phone] | | | | | (degenerativ | [address] | Fax: | | | | | e disc | Phone: | [phone] | | | | | disease), | [phone] | | | | | | cervical | Fax: | | | | | | Cervical | [phone] | | | | | | stenosis of | | | | | | | spinal canal | | | +--------+ + + + + + Encounter Details +--------+---------+ + + + | Date | Type | Department | Care Team | Description | +--------+---------+ + + + | 02/01/ | Office | [facility] | Irving Becerril, | Spondylolisthesis, | | 2016 | Visit | NEUROSURGERY [address] | DO [address] | cervical region | | | | [address] | [address] [place], [place] | (Primary Dx); 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, | | | | [address] | | cervical region; | | | | [phone] | | Cervical myelopathy | | | [...] 1:30 PM PDT Irving Becerril DO [address] [facility], [address] [place] [address] FAX: NEUROSURGERY HISTORY AND PHYSICAL EXAMINATION CHIEF [...] Cancer ([facility]) Breast Hyperlipidemia [place] (myocardial infarction) ([facility]) GERD (gastroesophageal reflux disease) Asthma Arthritis Lumbar radiculopathy 07/23/2012 DDD (degenerative disc disease), lumbar 07/23/2012 Spinal stenosis of lumbar region with [id number] level moderately severe 2012 Facet arthritis of [...] 1989' Mastectomy, radical 1987 Right Breast reconstruction [id number] ABout 10 surgeries Bone spur left foot [...] with short or assisted memory. CRANIAL NERVES: Fundoscopic Exam: The optic [...] Intrinsics 5 4+ Ulnar Intrinsics 5 4+ Grade Teacher Strength 4+ 4+ Hip Flexion 5 5 [...] Syncope and collapse Cancer (HCC) Breast Hyperlipidemia [place] (myocardial infarction) (HCC) GERD (gastroesophageal reflux disease) Asthma Arthritis Lumbar radiculopathy 07/23/2012 DDD (degenerative disc disease), lumbar 07/23/2012 Spinal stenosis of lumbar region with [id number] level moderately severe 2012 Facet arthritis of [...]
--- OUTSIDE RECORDS SUMMARY | ~2019-10-27 | XMS | Encounter Summary ---
Demographics + + + | Address | [address] | | | [place] [address] | + + + | Home Phone [...] [place], | | | | | [place] [address] | | + + + + + | Kellen Briones | ECON | [place], [place] | | | | | [address] | | + + + + + Care Team Providers + +------+ + | Care Servicing Manager Name | Role | Phone | + +------+ + | Anna De Guzman PA-C | PCP | | + +------+ + Encounter Details +--------+ + + + + | Date | Type | Department | Care Team | Description | +--------+ + + + + | 03/05/ | Hospital | [facility] | IsakkaydenkaileeTk mathis | | | 2012 | Encounter | MED CTR XRAY [address] | [address] | | | | | [place] | [place], [place] | | | | | [place] [address] | [id number] | | | | | [phone] | | | +--------+ + + + [...]
--- OUTSIDE RECORDS SUMMARY | ~2019-10-27 | XMS | Encounter Summary ---
Demographics + + + | Address | [address] | | | [place] [address] | + + + | Home Phone [...] [place], | | | | | [place] [address] | | + + + + + | Kellen Briones | ECON | [place], [place] | | | | | [address] | | + + + + + Care Team Providers + +------+ + | Care Spinning Bath Patroller Name | Role | Phone | + [...] CONVERSION DEP [address] | | [facility] ([facility]) | | | | [address] | | | | 07/14/ | | [place] | | | | 2009 | | [address] | | | | | | [phone] | | | +--------+ + + + [...] + + | [facility] | | | [facility] [address] | | | , | | | [id number]/RADIOLOGY Patient Name: CLEMENTINE NUNEZ Date of : | | | 1940 Medical Record: [id number] Account: [id number] | | | I/P/ [id number]/ Exam Date/Time: 07/12/2009 | | | 05:00 [...] good position in the SVC. The prior Benton-Gideon catheter | | | has been removed. [...] 11:16 P | | | P P SLW/dc/[id number]/ | | | cc: MD ANUJ PERLA MD STEVEN L | | | MD MARYANN | | + + + + + | Procedure Note | + + | Nilay Lawrence - 01/25/2019 5:24 PM PDT | | [facility] | | [facility] [address] | | , | | | | [id number]/RADIOLOGY | | | | Patient Name: CLEMENTINE NUNEZ | | Date of : 1940 | | Medical Record: [id number] | | Account: [id number] | | I/P/CU [id number]/ | | | | | | Exam [...] in the SVC. | | The prior Benton-Gideon catheter has been removed. No obvious mediastinal [...] | P | | P | | SLW/dc/[id number]/ | | cc: ROSALVA LOZADA MD | | ANUJ GALLEGO MD | | ARAVIND WOLF MD | + + XR Chest 1 Vw (07/10/2009 5:33 AM PST) + + | Specimen | + + | | + + + + + | Narrative | Performed At | + + + | [facility] | | | [facility] [address] | | | , | | | [id number]/RADIOLOGY Patient Name: CLEMENTINE NUNEZ Date of : | | | 1940 Medical Record: [id number] Account: [id number] | | | [place] [id number]/ Exam Date/Time: 07/10/2009 | | | 05:00 [...] 09:49 A | | | A A CHARMAINE/britni/[id number]/ | | | cc: MD FAISAL PERLA MD SAAD | | | MD [place] | | + + + + + | Procedure Note | + + | Howard, Rad Conversion - 01/25/2019 5:24 PM PDT | | [facility] | | [facility] [address] | | , | | | | [id number]/RADIOLOGY | | | | Patient Name: CLEMENTINE NUNEZ | | Date of : 1940 | | Medical Record: [id number] | | Account: [id number] | | I/P/ [id number]/ | | | | | | Exam [...] | A | | A | | [id number]//[id number]/ | | cc: ROSALVA LOZADA MD | | FAISAL RUELAS MD | | ANUJ GALLEGO MD | + + XR Chest 1 Vw (07/09/2009 12:25 PM PST) + + | Specimen | + + | | + + + + + | Narrative | Performed At | + + + | [facility] | | | [facility] [address] | | | , | | | [id number]/RADIOLOGY Patient Name: CLEMENTINE NUNEZ Date of : | | | 1940 Medical Record: [id number] Account: [id number] | | | I/P/[facility] / Exam Date/Time: 07/09/2009 | [...] | overlying the stomach. A right sided Benton-Gideon catheter is seen with | | | [...] 3 cm. 2. Right sided central line, Benton-Gideon | | | catheter, left sided chest [...] P P | | | 05:09 P /[facility]/[id number]/ cc: MD VERONICA PERLA | | | DO ANUJ LOPEZ MD | | + + + + + | Procedure Note | + + | Nilay Lawrence Conversion - 01/25/2019 5:24 PM PDT | | [facility] | | [facility] [address] | | , | | | | [id number]/RADIOLOGY | | | | Patient Name: CLEMENTINE NUNEZ | | Date of : 1940 | | Medical Record: [id number] | | Account: [id number] | | I/P/CCC | | | | [...] the stomach. A right | | sided Benton-Gideon catheter is seen with its tip in [...] | | 2. Right sided central line, Benton-Gideon catheter, left sided chest tube | | [...] | P | | P | | EI/[facility]/[id number]/ | | cc: ROSALVA LOZADA MD | [...] that was | | | non-reportable in [employer] system. | | + + + + + | Procedure Note | + + | Nilay Lawrence Conversion - 01/25/2019 5:24 PM PDT See medical record for report. This is | | a converted record that was non-reportable in [employer] system. | + + XR Chest 2 Vws (07/08/2009 12:33 PM PST) + + | Specimen | + + | | + + + + + | Narrative | Performed At | + + + | [facility] | | | [facility] [address] | | | , | | | [id number]/RADIOLOGY Patient Name: CLEMENTINE NUNEZ Date of : | | | 1940 Medical Record: [id number] Account: [id number] | | | I/P/MADIHA [id number]/ Exam Date/Time: 07/08/2009 | | | 11:50 [...] 08:59 A | | | P A RAMYK/jovanna/[id number]/ | | | cc: JIM SANCHEZ MD | | | ANUJ GALLEGO MD | | + + + + + | Procedure Note | + + | Nilay Lawrence Conversion - 01/25/2019 5:24 PM PDT | | [facility] | | [facility] [address] | | , | | | | [id number]/RADIOLOGY | | | | Patient Name: CLEMENTINE NUNEZ | | Date of : 1940 | | Medical Record: [id number] | | Account: [id number] | | I/P/MADIHA 59455/ | | | | | | Exam [...] | P | | A | | DCChi/jovanna/[id number]/ | | cc: RANJIT TRONCOSO [facility] | | MARCIA MOTLEY MD | | ANUJ GALLEGO MD | + + ECHO Complete (07/07/2009 2:30 PM PST) + + | Specimen | + + | | + + + + + | Narrative | Performed At | + + + | [id number] | | | Page 1 ECHO [facility] NAME: | | | [place] [address] MEDICAL RECORD #: | | | [id number] | | | DATE OF : 1940 ORDER | | | NUMBER: [id number] EXAM DATE/TIME: 07/07/2009 13:49 PERFORMING | | [...] 56.72 ml D-E Excursion: 1.44 cm E-F Collingsworth: 0.04 | | | m/s EPSS: 0.76 [...] TV A Obed: 0.65 m/s TV Dec Collingsworth: 1.90 m/s2 TV Dec Time: | | | 260.30 ms TV E Obed: 0.49 m/s TV E/A Ratio: 0.75 | | | Job Placement Counselor: EZEKIEL Authenticated by: Anuj Gallego MD Report Date/Time: | | | 07-08-2009 08:56:44 | | + + + + + | Procedure Note | + + | Nilay Lawrence - 01/25/2019 5:24 PM PDT [id number] | | Page [address] [place] [address] NAME: [place], [place] | | [address] : ACCOUNT #: | | [id number]: DATE OF : 2ORDER NUMBER: | | [id number] DATE/TIME: 07/07/2009 13:49PERFORMING PHYSICIAN: Anuj SUERO | [...] mlLAESV Index (A-L): 19.90 ml/m2LAAs A2C: 16.02 [id number] A-L | | A2C: 39.78 mlLALs A2C: 5.48 cmLAAs A4C: 13.91 [id number] A-L A4C: 30.58 mlLALs | | A4C: 5.37 cmAo Diam: 2.60 cmAV Cusp: 1.30 cmLA Diam: 3.63 cmLA/Ao: 1.39%FS: | | 37.5 %EDV(Teich): 83.61 mlEF(Teich): 67.83 %ESV(Teich): 26.89 mlIVSd: 1.04 | | cmIVSs: 1.27 cmLVIDd: 4.31 cmLVIDs: 2.69 cmLVPWd: 1.04 cmLVPWs: 1.27 | | cmSV(Teich): 56.72 mlD-E Excursion: 1.44 cmE-F Collingsworth: 0.04 m/sEPSS: 0.76 cmIVC | | diameter: 1.27 cmIVC collapse: 0.31 cmIVC % collapse: 73.72 %HR: 81.96 BPMAV | | maxP.03 mmHgAV meanP.44 mmHgAV Vmax: 1.50 m/Shreyas Vmean: 0.99 m/Shreyas VTI: | | 26.02 cmAVA Vmax: 1.39 cm2AVA (VTI): 1.60 xj1JWSH Dopp: 1.83 l/klyw2CODB Dopp: | | 3.25 l/minHR: 78.02 BPMLVOT [...] A Obed: | | 0.65 m/sTV Dec Collingsworth: 1.90 m/s2TV Dec Time: 260.30 msTV E Obed: 0.49 m/sTV E/A | | Ratio: 0.75 Job Placement Counselor: MIKAuthenticated by: Anuj Gallego MDReport Date/Time: | [...] | |D-E Excursion: 1.44 cm | |E-F Collingsworth: 0.04 m/s | |EPSS: 0.76 cm | [...] A Obed: 0.65 m/s | |TV Dec Collingsworth: 1.90 m/s2 | |TV Dec Time: 260.30 ms | |TV E Obed: 0.49 m/s | |TV E/A Ratio: 0.75 | | | |Job Placement Counselor: EZEKIEL | |Authenticated by: Anuj Gallego MD | |Report Date/Time: 07-08-2009 08:56:44 | + + US Veins Extremiity Bilateral (07/07/2009 2:10 PM PST) + + | Specimen | + + | | + + + + + | Narrative | Performed At | + + + | [facility] | | | [facility] [address] | | | , | | | [id number]/RADIOLOGY Patient Name: CLEMENTINE NUNEZ Date of : | | | 1940 Medical Record: [id number] Account: [id number] | | | I/P/MADIHA [id number]/ Exam Date/Time: 07/07/2009 | | | 08:00 [...] P Electronically Signed by | | | AMRCIA MOTLEY MD 07/07/2009 09:58 P P | | | P CASIMIRO/gracie/[id number]/ cc: MARCIA MOTLEY MD | | | ANUJ GALLEGO MD | | + + + + + | Procedure Note | + + | Howard, Rad Conversion - 01/25/2019 5:24 PM PDT | | [facility] | | [facility] [address] | | , | | | | [id number]/RADIOLOGY | | | | Patient Name: CLEMENTINE NUNEZ | | Date of : 1940 | | Medical Record: [id number] | | Account: [id number] | | I/P/ [id number]/ | | | | | | Exam [...] | P | | P | | CASIMIRO/gracie/[id number]/ | | cc: MARCIA MOTLEY MD | | ANUJ GALLEGO MD | + + VAS Carotid Duplex Bilateral (07/07/2009 2:01 PM PST) + + | Specimen | + + | | + + + + + | Narrative | Performed At | + + + | [facility] | | | [facility] [address] | | | , | | | [id number]/RADIOLOGY Patient Name: CLEMENTINE NUNEZ Date of : | | | 1940 Medical Record: [id number] Account: [id number] | | | I/P/CU [id number]/ Exam Date/Time: 07/07/2009 | | | 08:00 [...] P P | | | 02:33 P CASIMIRO/gracie/[id number]/ cc: MARCIA MOTLEY MD ANUJ | | | MD CHRIS | | + + + + + | Procedure Note | + + | Nilay Lawrence - 01/25/2019 5:24 PM PDT | | [facility] | | [facility] [address] | | , | | | | [id number]/RADIOLOGY | | | | Patient Name: CLEMENTINE NUNEZ | | Date of : 1940 | | Medical Record: [id number] | | Account: [id number] | | I/P/CU 86706/ | | | | | | Exam [...] | P | | P | | [facility]/gracie/[id number]/ | | cc: MARCIA MOTLEY MD | | ANUJ GALLEGO MD | + + CV CARDIAC PROCEDURE (07/06/2009 4:45 PM PST) + + | Specimen | + + | | + + + + + | Narrative | Performed At | + + + | [facility] | | | [facility] [address] | | | , | | | [id number]/CARDIOLOGY Patient Name: CLEMENTINE NUNEZ Date of : | | | 1940 Medical Record: [id number] Account: [id number] | | | I/P/MADIHA [id number]/ Exam Date/Time: 07/06/2009 | | | 03:41 [...] for possible closure device deployment. 5. A 6-Vietnamese Mynx | | | closure device deployment at the right arteriotomy site. | | | INDICATIONS The patient is a very pleasant 69-year-old lady | | | who was recently admitted at [facility] after an episode | | | of chest pain. The patient was ruled out for a myocardial infarction | | | and discharged and subsequently was advised to have a stress test at | | | [facility] which was significantly abnormal, | | | [...] with 1% | | | lidocaine. A 6-Vietnamese vascular sheath was inserted in the right [...] was pulled, and | | | a 6-Vietnamese Mynx closure device was deployed at the [...] | segment and was filling distally via tmih-ny-szjlg collaterals. | | | LEFT VENTRICULOGRAM Left [...] A | | | 09:51 P A /yoana/[id number]/ cc: CHING Sevilla | | | MD ANUJ DAI MD | | + + + + + | Procedure Note | + + | Nilay Lawrence Conversion - 01/25/2019 5:24 PM PDT | | [facility] | | [facility] [address] | | , | | | | [id number]/CARDIOLOGY | | | | Patient Name: CLEMENTINE NUNEZ | | Date of : 1940 | | Medical Record: [id number] | | Account: [id number] | | I/P/ 86671/ | | | | | | Exam [...] closure device deployment. | | 5. A 6-Vietnamese Mynx closure device deployment at the right arteriotomy | | site. | | | | INDICATIONS | | The patient is a very pleasant 69-year-old lady who was | | recently admitted at [facility] after an episode of chest | | pain. The patient was ruled out for a myocardial infarction and | | discharged and subsequently was advised to have a stress test at [facility] which was significantly abnormal, revealing | | [...] groin | | with 1% lidocaine. A 6-Vietnamese vascular sheath was inserted in the right [...] sheath. The sheath was pulled, and a 6-Vietnamese Mynx closure device was | | deployed [...] | segment and was filling distally via rist-fy-ujyyg collaterals. | | | | LEFT VENTRICULOGRAM [...] | P | | A | | /yoana/[id number]/ | | cc: CHING DAI MD | | ANUJ GALLEGO MD | + + documented in this encounter Visit Diagnoses + + | Diagnosis | + + | Acute myocardial infarction, subendocardial infarction, initial episode of care (HCC) | | Acute myocardial infarction, subendocardial infarction, initial episode of care | + + documented in this encounter"
--- OUTSIDE RECORDS SUMMARY | ~2019-10-27 | XMS | Encounter Summary ---
Demographics + + + | Address | [address] | | | [place] [address] | + + + | Home Phone [...] [place], | | | | | [place] [address] | | + + + + + | Kellen Briones | ECON | [place], [place] | | | | | [address] | | + + + + + Care Team Providers + +------+ + | Care Boxing Inspector Name | Role | Phone | [...] + + | 09/30/ | Office | [facility] | [place], | DDD (degenerative | | 2015 | Visit | PHYSIATRY [address] | [place] [address] | disc disease), | | | | [address] | [address] | lumbar (Primary Dx); | | | | [place] | [place] [address] | Spinal stenosis of | | | | [address] | [phone] | lumbar region with | | | | [phone] | | jxmwweotyeebp-B4-C0 | | | | | | level [...] of the procedure you must provide a national flatbed truck driver to take you home. For [...] spinal stenosis. Her last injection was in [facility] of this year. She reports that the [...] and narcotic medications use; she currently uses [place], Flexeril and [place] bapentin. Patient's medications, allergies, [...] has no apparent deficits with short or manager terminal memory. She has appropriate fund of [...] 2. Spinal stenosis of lumbar region with ehcnpnfegdrdt-X6-Q6 level moderately severe 3. Lumbar radiculopathy 4. [...] 09/30/2014 Bilateral Transforaminal Epidural Steroid Injections | [facility] | | Diagnosis: Lumbar radiculopathy ICD-9 Code 724.4 Clementine Phoenix | [facility] | | Annabella presents to the fluoroscopy suite for fluoroscopically-guided | [facility] | | bilateral L5-S1 transforaminal epidural [...] | [address] | [place] | [phone] | | [facility] | | [address] | | | - IMAGING | | | | + + + + + documented in this encounter Visit Diagnoses + + | Diagnosis | + + | DDD (degenerative disc disease), lumbar - Primary Degeneration of lumbar or | | lumbosacral intervertebral disc | + + | Spinal stenosis of lumbar region with haepqgxomgknr-R5-M5 level moderately severe | | Spinal stenosis, [...]
--- OUTSIDE RECORDS SUMMARY | ~2019-10-27 | XMS | Encounter Summary ---
Demographics + + + | Address | [address] | | | [place] [address] | + + + | Home Phone [...] [place], | | | | | [place] [address] | | + + + + + | Kellen Briones | ECON | [place] | | | | | [address] | | + + + + + Care Team Providers + +------+ + | Care Flask Cleaner Name | Role | Phone | [...] + + | 04/02/ | Office | [facility] | Agata Tinajero DO | Atherosclerosis of | | 2019 | Visit | CARDIOLOGY [place] | [address] | [place] coronary | | | | [address] | [place], [place] | artery of [place] | | | | [address] | [id number] | heart without angina | | | | [place] | | pectoris (Primary | | | | [address] | | Dx); Essential | | | | [phone] | | hypertension; | | | | [...] Agata Tinajero, - 04/02/2019 2:00 PM PDT [facility] Cardiology Cardiology Follow Up Note Reason for Consultation: Chest pain Requesting Physician: Barb Marte History Obtained From: patient HISTORY OF PRESENT ILLNESS: Cardiac Problem List 1. CAD s/p CABGx4 in [facility] 2009 S/P [place] to LAD, SVG-OM1, OM2, [...] proximal segment and was filling distally via pnhj-cr-gzkmp collaterals. LEFT VENTRICULOGRAM Left ventriculogram revealed normal left ventricular systolic function with ejection fraction of 60% with severe posterobasal hypokinesis. Carotid US: AAA screening: Lower extremity US: OTHERS: ASSESSMENT & PLAN 1. Pre operative cardiovascular exam 2. CAD s/p CABGx4 in [facility] 2009 S/P [place] to LAD, SVG-OM1, OM2, PDA 2009 3. HTN 4. History CVA 5. HLD 6. DM II 7. Arthritis 8. Asthma 9. Chronic pain 10. DDD 11. GERD 12. History right breast CA s/p mastectomy and chemo - The patient is a 78-year-old female with the above past medical history who presents to [facility] cardiology office for follow up. She [...] Diagnosis | + + | Atherosclerosis of [place] coronary artery of [place] heart without angina pectoris - | | Primary | + + | Essential hypertension Unspecified essential hypertension | + + | Cerebrovascular accident (CVA), unspecified mechanism (HCC) | + + | Other hyperlipidemia | + + | H/O CABG (coronary artery bypass graft) Postsurgical aortocoronary bypass status | + + documented in this encounter
--- OUTSIDE RECORDS SUMMARY | ~2019-10-27 | XMS | Encounter Summary ---
Demographics + + + | Address | [address] | | | [place] [address] | + + + | Home Phone [...] [place], | | | | | [place] [address] | | + + + + + | Kellen Briones | ECON | [place], [place] | | | | | [address] | | + + + + + Care Team Providers + +------+ + | Care Hand Shoes Sewer Name | Role | Phone | + [...] | | | | | | | [place] | | | | | | | [...] | | | | | [address] | [place] | | | | | [place] | [address] | | | | | [address] | | | | | | [phone] | | | +--------+ + + + [...] +----+---+ + + | | 1 | [place] | | | | 4 | 43-degrees [...] 1500 by | | eral | Antecubital; rafm-iae-nkxqdb | Magdalena Burdick, RN | Tatiana Crowe, [...] | | | | | PRN, Starting Sat03/30/16 at | | PM PDT | | | | | 1357, Anesthesia Intra-op | | | | | | + +-------+ +-------+---+---+ +---+---+ | | | +---+---+ + +-------+ +--------+---+---+ | fentaNYL (PF) injection | Given | 03/30/20 | 50 mcg | | | | Intravenous, PRN, Pain, Starting | | 16 2:04 | | | | | Sat03/30/16 at 1355, Anesthesia | | PM PDT [...]
--- OUTSIDE RECORDS SUMMARY | ~2019-10-27 | XMS | Encounter Summary ---
Demographics + + + | Address | [address] | | | [place] [address] | + + + | Home Phone [...] [place], | | | | | [place] [address] | | + + + + + | Kellen Briones | ECON | [place], [place] | | | | | [address] | | + + + + + Care Team Providers + +------+ + | Care Certified Physician Assistant Name | Role | Phone [...] + + | 02/14/ | Telephone | [facility] | Irving Becerril, | Letter | | 2015 | | NEUROSURGERY [address] | DO [address] | | | | | [address] | [address] [place], [place] | | | | | [place], [place] | [address] | | | | | [address] | | | | | | [phone] | | | +--------+ + + + [...]
--- OUTSIDE RECORDS SUMMARY | ~2019-10-27 | XMS | Encounter Summary ---
Demographics + + + | Address | [address] | | | [place] [address] | + + + | Home Phone [...] [place], | | | | | [place] [address] | | + + + + + | Kellen Briones | ECON | [place], [place] | | | | | [address] | | + + + + + Care Team Providers + +------+ + | Care Gas Main And Line Fitter Name | Role | Phone | [...] | | | | lumbar | [place] [address] | [address] Phone: | | | | | region DDD | Phone: | [phone] | | | | | (degenerativ | [phone] | Fax: | | | | | e disc | Fax: | [phone] | | | | | disease), | [phone] | | | | | | lumbar [...] + + | 12/29/ | Office | [facility] | Leonard Terrazas | Back pain, | | 2019 | Visit | NEUROSURGERY [address] | MD Di [address] | unspecified back | | | | [address] | [address] [facility] | location, | | | | [place] | [facility] [place] [address] | unspecified back | | | | [address] | [phone] | pain laterality, | | | | [phone] | | unspecified | | | | [...] encounter Patient Instructions Patient Instructions Silvia Sun Regulatory Affairs Coordinator - 12/29/2018 1:45 PM PDT You will need to get preoperative clearance from your primary care provider as well as your wide load escort if you have one. If you decide [...] 12/29/2018 1:45 PM PDT Leonard Terrazas MD [address] [place] [address], [address] [place] [address] PHONE: FAX: NEUROSURGERY HISTORY AND PHYSICAL EXAMINATION [...] reflux disease) Hyperlipidemia Hypertension Lumbar radiculopathy 07/23/2012 [place] (myocardial infarction) (HCC) Neck pain on right side 05/13/2013 Oxygen dependent 2 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 Snoring Spinal stenosis of lumbar region with nttttbjjrjuin-K6-G0 level moderately severe 2012 PAST SURGICAL HISTORY: Past Surgical History: Procedure Laterality Date BELPHAROPTOSIS REPAIR 2009 bilateral bone spur left foot BREAST RECONSTRUCTION [id number] About 10 surgeries CARPAL TUNNEL RELEASE Bilateral CERVICAL SPINE SURGERY Anterior 03/30/2016 Procedure: C3-4, C4-5, C5-6, C6-7 Anterior Cervical Discectomy w/ Fusion and Plating; Bryan geon: Irving Becerril, DO; Location: [facility] MAIN OR CORONARY ARTERY BYPASS GRAFT 2009 [...] has no apparent deficits with short or roasterman memory. CRANIAL NERVES: II: Acuity is intact. [...] reflux disease) Hyperlipidemia Hypertension Lumbar radiculopathy 07/23/2012 [place] (myocardial infarction) (HCC) Neck pain on right side 05/13/2013 Oxygen dependent 2 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 Snoring Spinal stenosis of lumbar region with xkpmknfgtmlvg-Z9-G4 level moderately severe 2012 PLAN: Clementine Winchester [...]
--- OUTSIDE RECORDS SUMMARY | ~2019-10-27 | XMS | Encounter Summary ---
Demographics + + + | Address | [address] | | | [place] [address] | + + + | Home Phone [...] [place], | | | | | [place] [address] | | + + + + + | Kellen Briones | ECON | [place] | | | | | [address] | | + + + + + Care Team Providers + +------+ + | Care Electrician Maintenance Name | Role | Phone | [...] + + | 06/22/ | Telephone | [facility] | Monster White MD | Surgery Appointment | | 2020 | | [facility] | [address] | (Clearance ); | | | | ORTHOPEDIC SPINE | [place] [address] [place], [place] | Surgery Appointment | | | | [address] | [address] | (Questions) | | | | [place] | | | | | | [address] | | | | | | [phone] | | | +--------+ + + + [...]
--- OUTSIDE RECORDS SUMMARY | ~2019-10-27 | XMS | Encounter Summary ---
Demographics + + + | Address | [address] | | | [place] [address] | + + + | Home Phone [...] [place], | | | | | [place] [address] | | + + + + + | Kellen Briones | ECON | [place], [place] | | | | | [address] | | + + + + + Care Team Providers + +------+ + | Care Pressed Or Blown Glass Worker Name | Role | Phone | [...] + + | 12/14/ | Office | [facility] | Pippa, | Spinal stenosis of | | 2013 | Visit | PHYSIATRY [address] | AYAAN Taylor [address] | lumbar region with | | | | [address] | [address] | wypurbphssxba-N5-H0 | | | | [place], [place] | [place] [address] | level moderately | | | | [address] | [phone] | severe (Primary Dx); | | | | [phone] | | Facet arthritis of | | [...] the procedure you must provide a company tanker truck driver to take you home. For [...] and narcotic medications use; she currently uses [place], Flexeril and [place] bapentin. Patient's medications, allergies, [...] 1. Spinal stenosis of lumbar region with adilhwplfwyvn-Y9-J9 level moderately severe 2. Facet arthritis of [...] is awaiting to t cleared by her assistant track coach for cervical fusion. ELECTRONICALLY SIGNED BY: Claudia [...] to the fluoroscopy suite for fluoroscopically-guided | [facility] | | bilateral L5-S1 transforaminal [...] [address] 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
--- OUTSIDE RECORDS SUMMARY | ~2019-10-27 | XMS | Encounter Summary ---
Demographics + + + | Address | [address] | | | [place] [address] | + + + | Home Phone [...] [place], | | | | | [place] [address] | | + + + + + | Kellen Briones | ECON | [place] | | | | | [address] | | + + + + + Care Team Providers + +------+ + | Care Bellmaker Name | Role | Phone | + +------+ + | Barb Marte | PCP | | + +------+ + Encounter Details +--------+ + + + + | Date | Type | Department | Care Team | Description | +--------+ + + + + | 01/31/ | Hospital | [facility] | Conversion | Diagnosis unknown | | 2018 | Encounter | CONVERSION DEP [address] | Transaction, | | | | | [address] [place] | Provider Unknown | | | | | [place] | [phone] | | | | | [address] | | | | | | [phone] | | | +--------+ + + + [...]
--- OUTSIDE RECORDS SUMMARY | ~2019-10-27 | XMS | Encounter Summary ---
Demographics + + + | Address | [address] | | | [place] [address] | + + + | Home Phone [...] Organization | [facility] | | | and [place] | + + + | Address | Unknown | + + + | Phone | Unavailable | + + + Support + + + + + | Name | Relationship | Address | Phone | + + + + + | Lucy Winchester | ECON | [place], | | | | | [place] [address] | | + + + + + | Kellen Briones | ECON | [place], [place] | | | | | [address] | | + + + + + Care Team Providers + +------+ + | Care Chief Dietitian Name | Role | Phone | + [...] + + | 07/30/ | Telephone | [facility] | Monster White MD | Medication Question | | 2019 | | [facility] | [address] | | | | | ORTHOPEDIC SPINE | [address] [place], [place] | | | | | [address] | [address] | | | | | [place], [place] | | | | | | [address] | | | | | | [phone] | | | +--------+ + + + [...] + + | S/P lumbar spinal fusion - Primary Arthrodesis status | + + | Spondylolisthesis of lumbar region Acquired spondylolisthesis | + + documented in this encounter"
--- OUTSIDE RECORDS SUMMARY | ~2019-10-27 | XMS | Encounter Summary ---
Demographics + + + | Address | [address] | | | [place] [address] | + + + | Home Phone [...] [place], | | | | | [place] [address] | | + + + + + | Kellen Briones | ECON | [place], [place] | | | | | [address] | | + + + + + Care Team Providers + +------+ + | Care Medical Coder Name | Role | Phone | + [...] | | | | lumbar | [place] [address] | [address] Phone: | | | | | region DDD | Phone: | [phone] | | | | | (degenerativ | [phone] | Fax: | | | | | e disc | Fax: | [phone] | | | | | disease), | [phone] | | | | | | lumbar [...] + + | 12/29/ | Office | [facility] | Leonard Terrazas | Back pain, | | 2019 | Visit | NEUROSURGERY [address] | MD Di [address] | unspecified back | | | | [address] | [address] [facility] | location, | | | | [place] | [place] [address] | unspecified back | | | | [address] | [phone] | pain laterality, | | | | [phone] | | unspecified | | | | [...] encounter Patient Instructions Patient Instructions Silvia Sun Rubber Compounder - 12/29/2018 1:45 PM PDT You will need to get preoperative clearance from your primary care provider as well as your electric cutter operator if you have one. If you decide [...] 12/29/2018 1:45 PM PDT Leonard Terrazas MD [address] [place] [address], [address] [place] [address] PHONE: FAX: NEUROSURGERY HISTORY AND PHYSICAL EXAMINATION [...] Snoring Spinal stenosis of lumbar region with loutrigzdbrjp-F2-M5 level moderately severe 2012 PAST SURGICAL HISTORY: Past Surgical History: Procedure Laterality Date BELPHAROPTOSIS REPAIR 2009 bilateral bone spur left foot BREAST RECONSTRUCTION 4190-7349 About 10 surgeries CARPAL TUNNEL RELEASE Bilateral CERVICAL SPINE SURGERY Anterior 03/30/2016 Procedure: C3-4, C4-5, C5-6, C6-7 Anterior Cervical Discectomy w/ Fusion and Plating; Bryan geon: Irving Becerril, DO; Location: [facility] MAIN OR CORONARY ARTERY BYPASS [...] has no apparent deficits with short or rat exterminator memory. CRANIAL NERVES: II: Acuity is intact. [...] Snoring Spinal stenosis of lumbar region with tbfrbkmaxdexf-P9-I1 level moderately severe 2012 PLAN: Clementine Winchester [...]
--- OUTSIDE RECORDS SUMMARY | ~2019-10-27 | XMS | Encounter Summary ---
Demographics + + + | Address | [address] | | | [place] [address] | + + + | Home Phone [...] [place], | | | | | [place] [address] | | + + + + + | Kellen Briones | ECON | [place], [place] | | | | | [address] | | + + + + + Care Team Providers + +------+ + | Care Legal Receptionist Name | Role | Phone | + [...] | | | | | | | [place] | | | | | | | [...] | | | | | [address] | [place] | | | | | [place] | [address] | | | | | [address] | | | | | | [phone] | | | +--------+ + + + [...] +----+---+ + + | | 1 | Yeso | | | | 4 | 43-degrees [...] 1500 by | | eral | Antecubital; dtvs-pnq-hjvevj | Magdalena Burdick, RN | Tatiana Crowe, [...]
--- OUTSIDE RECORDS SUMMARY | ~2019-10-27 | XMS | Encounter Summary ---
Demographics + + + | Address | [address] | | | [place] [address] | + + + | Home Phone | | + + + | Preferred Language | Unknown | + + + | Marital Status | | + + + | Buddhist Affiliation | 1041 | + + + | Race | Unknown | + + + | Ethnic Group | Unknown | + + + Author + + + | Author | [facility] | | | and [place] | + + + | Organization | [facility] | | | and [place] | + + + | Address | Unknown | + + + | Phone | Unavailable | + + + Support + + + + + | Name | Relationship | Address | Phone | + + + + + | Lucy Winchester | ECON | [place], | | | | | [place] [address] | | + + + + + | Kellen Briones | ECON | [place], [place] | | | | | [address] | | + + + + + Care Team Providers + +------+ + | Care Public Affairs Specialist Name | Role | Phone | + +------+ + | Anna De Guzman PA-C | PCP | | + +------+ + Encounter Details +--------+ + + + + | Date | Type | Department | Care Team | Description | +--------+ + + + + | 05/17/ | Hospital | [facility] | Irving Becerril, | Status post cervical | | 2016 | Encounter | MED CTR XRAY [address] | DO [address] | spinal fusion; | | | | [place] | [address] [place], [place] | Spondylolisthesis of | | | | [place] [address] | [id number] | cervical region | | | | [phone] | | | +--------+ + + + [...] [address] | [place] | [phone] | | [facility] | | [address] | | | - IMAGING | | | | + + + + + documented in this encounter Visit Diagnoses + + | Diagnosis | + + | Status post cervical spinal fusion Arthrodesis status | + + | Spondylolisthesis of cervical region Acquired spondylolisthesis | + + documented in this encounter"
--- OUTSIDE RECORDS SUMMARY | ~2019-10-27 | XMS | Encounter Summary ---
Demographics + + + | Address | [address] | | | [place] [address] | + + + | Home Phone [...] [place], | | | | | [place] [address] | | + + + + + | Kellen Briones | ECON | [place] | | | | | [address] | | + + + + + Care Team Providers + +------+ + | Care Power Shovel Mechanic Name | Role | Phone | + +------+ + | Barb Marte | THANG | | + +------+ + Encounter Details +--------+ + + + + | Date | Type | Department | Care Team | Description | +--------+ + + + + | 01/03/ | Hospital | [facility] | Barb Marte PA | Visit for screening | | 2018 | Encounter | MED CTR MAMMOGRAPHY | [address] | mammogram | | | | [address] | [address] [place] | | | | | [place], [place] | [address] | | | | | [address] | | | | | | [phone] | | | +--------+ + + + [...]
--- OUTSIDE RECORDS SUMMARY | ~2019-10-27 | XMS | Encounter Summary ---
Demographics + + + | Address | [address] | | | [place] [address] | + + + | Home Phone [...] [place], | | | | | [place] [address] | | + + + + + | Kellen Briones | ECON | [place], [place] | | | | | [address] | | + + + + + Care Team Providers + +------+ + | Care Screed Person Name | Role | Phone | + +------+ + | Anna De Guzman PA-C | PCP | | + +------+ + Encounter Details +--------+ + + + + | Date | Type | Department | Care Team | Description | +--------+ + + + + | 06/04/ | Hospital | [facility] | RealRamon das | Neck pain | | 2012 - | Encounter | MED CTR XRAY [address] | FMD [address] | | | | | [place] | [place], [place] | | | 06/06/ | | [place] [address] | [address] | | | 2012 | | [phone] | [phone] | | | | | | | [...] Performed At | + + + | [facility] | [place] | | Department [address] [facility] | [facility] | | [ rep [address]] [ rep [facility] | | [facility]] Signed | - IMAGING | | | | | Patient Name: CLEMENTINE WINCHESTER Physician: | | | ARRE.01 : 1940 Age: 72 Sex: F Unit #: [id number] | | | Exam Date: 06/04/12 Location: [facility] | | | Report #: [id number] Page: | | | %(RAD)RES..mtdd.print.filter("pg") of %(RAD) | | | RES..mtdd.print.filter("tpg") | | | | | | Accession Number: [id number] | | | CERVICAL SPINE, 06/04/2012 CLINICAL [...] Transcribed | | | Date/Time: 06/04/2012 17:12 Supervisor Erection Shop: | | | <<Signature on File>> | | | | | | Gordon Burrell MD06/05/12 0852 <Electronically signed by | | | Gordon Burrell MD> Gordon Burrell MD 06/04/12 | | | 1701 Supervisor Erection Shop: Zulema Iwltaqxbmwoyv17/02/132 | | | Ramon Real MD | | + + + + + + + + | Performing | Address | City/State/Zipcode | Phone Number | | Organization | | | | + + + + + | [facility] | [address] | [place] | [phone] | | [facility] | | [address] | | | - IMAGING | | | | + + + + + documented in this encounter Visit Diagnoses + + | Diagnosis | + + | Neck pain Cervicalgia | + + documented in this encounter
--- OUTSIDE RECORDS SUMMARY | ~2019-10-27 | XMS | Encounter Summary ---
Demographics + + + | Address | [address] | | | [place] [address] | + + + | Home Phone [...] [place], | | | | | [place] [address] | | + + + + + | Kellen Briones | ECON | [place], [place] | | | | | [address] | | + + + + + Care Team Providers + +------+ + | Care Production Operations Manager Name | Role | Phone | [...] [address] | | | | | [place], [place] | [place] [address] | | | | | [address] | [phone] | | | | | [phone] | | | +--------+ + + + [...]
--- OUTSIDE RECORDS SUMMARY | ~2019-10-27 | XMS | Encounter Summary ---
Demographics + + + | Address | [address] | | | [place] [address] | + + + | Home Phone [...] + | Lucy Winchester | ECON | [place], | | | | | [place] [address] | | + + + + + | Kellen Briones | ECON | [place], [place] | | | | | [address] | | + + + + + Care Team Providers + +------+ + | Care Clothing Presser Name | Role | Phone | + [...] + + | 05/11/ | Office | [facility] | Tk Ann | Neck pain on right | | 2012 | Visit | PHYSIATRY [address] | T, [address] | side (Primary Dx); | | | | [address] | [address] [place] | Facet arthritis of | | | | [place] | [address] | cervical region; [place] | | | | [address] | | (degenerative disc | | | | [phone] | | disease), cervical; | | | [...] with | | | | | | nmgsuijysmybp-J9-J5 | | | | | | level [...] of the procedure you must provide a charter driver to take you home. For all [...] had actually been seeing Dr. Jordan in [place] for the neck issues and was scheduled [...] 8. Spinal stenosis of lumbar region with iusevfxecfayj-O3-U4 level moderately severe 9. Facet arthritis of [...] extension x-rays of the lumbar spine at [facility]. 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
--- OUTSIDE RECORDS SUMMARY | ~2019-10-27 | XMS | Encounter Summary ---
Demographics + + + | Address | [address] | | | [place] [address] | + + + | Home Phone [...] [place], | | | | | [place] [address] | | + + + + + | Kellen Briones | ECON | [place], [place] | | | | | [address] | | + + + + + Care Team Providers + +------+ + | Care Coat Cutter Name | Role | Phone | [...] | Lumbar | [place], | [address] | | | | | radiculopath | Tk Monreal MD | [place], | | | | | y | [address] | [place] | | | | | Procedures | [place] | [address] | | | | | PA INJECT | [place], [place] | Phone: | | | | | ANES/STEROID | [address] | [phone] | | | | | FORAMEN | Phone: | Fax: | | | | | LUMBAR/SACRA | [phone] | [phone] | | | | | L W IMG | Fax: | | | | | | GUIDE ,1 | [phone] | | | | | | LEVEL [...] + + | 05/12/ | Hospital | [facility] | Mono Diaz, | Lumbar radiculopathy | | 2018 | Encounter | MED CTR XRAY [address] | PA-C [address] | | | | | [place] | [address] [place] | | | | | [place] [address] | [place] [address] | | | | | [phone] | [phone] | | | | | | | | | | | | Music Journalist, [place] | | | | | | [...] Performing | Address | City[facility] | Phone Number | | [...]
--- OUTSIDE RECORDS SUMMARY | ~2019-10-27 | XMS | Encounter Summary ---
Demographics + + + | Address | [address] | | | [place] [address] | + + + | Home Phone [...] [place], | | | | | [place] [address] | | + + + + + | Kellen Briones | ECON | [place], [place] | | | | | [address] | | + + + + + Care Team Providers + +------+ + | Care Personnel Counselor Name | Role | Phone | [...] + + | 05/02/ | Telephone | [facility] | Irving Becerril, | Paperwork | | 2016 | | NEUROSURGERY [address] | DO [address] | | | | | [address] | [address] [place], [place] | | | | | [place], [place] | [id number] | | | | | [address] | | | | | | [phone] | | | +--------+ + + + [...]
--- OUTSIDE RECORDS SUMMARY | ~2019-10-27 | XMS | Encounter Summary ---
Demographics + + + | Address | [address] | | | [place] [address] | + + + | Home Phone [...] [place], | | | | | [place] [address] | | + + + + + | Kellen Briones | ECON | [place], [place] | | | | | [address] | | + + + + + Care Team Providers + +------+ + | Care Desk Top Publisher Name | Role | Phone | + [...] + + | 01/26/ | Office | [facility] | [place], | Spinal stenosis of | | 2015 | Visit | PHYSIATRY [address] | [address] | lumbar region with | | | | [address] | [address] | llnhpgjvlpjes-R5-N0 | | | | [place] | [place] [address] | level moderately | | | | [address] | [phone] | severe (Primary Dx); | | | | [phone] | | Spondylolisthesis | | | | [...] the procedure you must provide a national dedicated truck driver to take you home. For [...] spinal stenosis. Her last injection was in [facility] of this year. She reports that the treatment was effective for approximately 1 months. 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 The patient reports overall [...] and narcotic medications use; she currently uses [place], Flexeril and [place] bapentin. Patient's medications, allergies, [...] has no apparent deficits with short or mcc memory. She has appropriate fund of knowledge [...] 1. Spinal stenosis of lumbar region with cwcnjzgtcqiow-J9-D1 level moderately severe 2. Spondylolisthesis of lumbar [...] of the lumbar spine at [facility]. I previously requ ested that these be [...] 721.0 Clementine Winchester presents to the | [facility] | | fluoroscopy suite for fluoroscopically-guided right C3-C4, C4-C5 and | [facility] | | C5-C6 facet injections [...] [address] | [place] | [phone] | | [facility] | | [address] | | | - IMAGING | | | | + + + + + [place] BAUTISTA Lumbar Transforaminal (02/22/2015 1:02 PM PDT) + + | Specimen | + + | | + + + + + | Narrative | Performed At | + + + | 02/22/2015 Bilateral Transforaminal Epidural Steroid Injections | [facility] | | Diagnosis: Lumbar radiculopathy ICD-9 Code 724.4 Clementine Phoenix | [facility] | | Annabella presents to the fluoroscopy suite for fluoroscopically-guided [facility] | | bilateral L5-S1 transforaminal epidural [...] ST. | [address] | [place], [place] | [phone] | | [facility] | | [address] | | | - IMAGING | | | | + + + + + documented in this encounter Visit Diagnoses + + | Diagnosis | + + | Spinal stenosis of lumbar region with eeroqhspwmzqs-J4-A7 level moderately severe - | | Primary [...]
--- OUTSIDE RECORDS SUMMARY | ~2019-10-27 | XMS | Encounter Summary ---
Demographics + + + | Address | [address] | | | [place] [address] | + + + | Home Phone [...] [place], | | | | | [place] [address] | | + + + + + | Kellen Briones | ECON | [place], [place] | | | | | [address] | | + + + + + Care Team Providers + +------+ + | Care Gas Adjuster Name | Role | Phone | [...] + + | 05/17/ | Office | [facility] | Chavo Jacob, | Status post cervical | | 2016 | Visit | NEUR[address]URGERY [address] | PA-C [address] | spinal fusion | | | | [address] | [address] [place] | (Primary Dx) | | | | [place] | [place] [address] | | | | | [address] | [phone] | | | | | [phone] | | | +--------+---------+ + + + [...] encounter Patient Instructions Patient Instructions Perico Hearn, Metal Polisher And Buffer Apprentice - 05/17/2016 11:43 AM PSTYou may now [...] your back and 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 documented in this encounter Progress Notes Chavo Jacob PA - 05/17/2016 11:41 AM PSTFormatting of this note might be different f rom the original. Perico Hearn, Mortgage Closing Clerk [address] [facility], [address] [place], [place] [id number] FAX: NEUROSURGERY FOLLOW-UP CHIEF COMPLAINT: Chief Complaint [...] (HCC) Right breast Hyperlipidemia [place] (myocardial infarction) ([facility]) GERD (gastroesophageal reflux disease) Asthma Arthritis Lumbar radiculopathy 07/23/2012 DDD (degenerative disc disease), lumbar 07/23/2012 Spinal stenosis of lumbar region with denfaqaevkbzv-Z0-A5 level moderately severe 2012 Facet arthritis of [...]
--- OUTSIDE RECORDS SUMMARY | ~2019-10-27 | XMS | Encounter Summary ---
Demographics + + + | Address | [address] | | | [place] [address] | + + + | Home Phone [...] [place], | | | | | [place] [address] | | + + + + + | Kellen Briones | ECON | [place], [place] | | | | | [address] | | + + + + + Care Team Providers + +------+ + | Care Clinical Lab Clerk Name | Role | Phone | + +------+ + | Anna De Guzman PA-C | PCP | | + +------+ + Encounter Details +--------+ + + + + | Date | Type | Department | Care Team | Description | +--------+ + + + + | 06/23/ | Hospital | [facility] | Donta Chris | | | 2012 - | Encounter | MED CTR XRAY [address] | MD [address] | | | | | [place] | [facility] [address] | | | 06/25/ | | [place] [address] | [place] [address] | | | 2012 | | [phone] | | | | | | | [...] Performed At | + + + | [facility] | [place] | | Department [address], [place] | [facility] | | [ rep ct [address]] [ rep ct [facility] | | st zip] Signed | - IMAGING | | | | | Patient Name: CLEMENTINE WINCHESTER Physician: | | | CHAP.20 : 1940 Age: 72 Sex: F Unit #: [id number] | | | Exam Date: 06/23/12 Location: [facility] | | | Report #: [id number] Page: | | | %(RAD)RES..mtdd.print.filter("pg") of %(RAD) | | | RES..mtdd.print.filter("tpg") | | | | | | Accession Number: [id number] | | | UNENHANCED MRA HEAD WITH THREE-DIMENSIONAL VASCULAR RECONSTRUCTION, | | | 06/23/2012 CLINICAL HISTORY: 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 COMPARISON: Brain | | | MRI from the same day. TECHNIQUE: Axial unenhanced 3D | | | nhrj-pe-lhzyay MRA images are performed through the [place] | | | and major [...] Transcribed | | | Date/Time: 06/24/2012 10:05 Spinner Cap Frame: | | | <<Signature on File>> | | | Papito Garcia | | | MD Augustus06/24/122052 <Electronically signed by Papito Coffman MD> | | | Papito Coffman MD 06/24/12 6942 Spinner Cap Frame: | | | [employer] Aiggzfsnusemv57/22/13 1005 Chris Longo MD | | | | | + + + + + + + + | Performing | Address | City/State/Zipcode | Phone Number | | Organization | | | | + + + + + | [facility] | [address] | [place], [place] | [phone] | | [facility] | | [address] | | | - IMAGING | | | | + + + + + MRI Brain w wo Contrast (06/24/2012 9:51 AM PST) + + | Specimen | + + | | + + + + + | Narrative | Performed At | + + + | [facility] Diagnostic [facility] | [place] | | Department [address] [place] | [facility] | | [ rep ct street[address]] [ rep ct city | [facility] | | st zip] Signed | - IMAGING | | | | | Patient Name: CLEMENTINE WINCHESTER Physician: | | | CHAP.20 : 1940 Age: 72 Sex: F Unit #: [id number] | | | Exam Date: 06/23/12 Location: [facility] | | | Report #: [id number] Page: | | | %(RAD)RES..mtdd.print.filter("pg") of %(RAD) | | | RES..mtdd.print.filter("tpg") | | | | | | Accession Number: [id number] | | | UNENHANCED AND ENHANCED BRAIN [...] Transcribed Date/Time: 06/24/2012 10:00 | | | Spinner Cap Frame: <<Signature on File>> | | | Papito Avendaño | | Jose Coffman MD06/24/122052 <Electronically signed by Papito Coffman | | | > Papito Coffman MD 06/24/12 0951 Spinner Cap Frame: | | | [employer] Mpybuutseworx64/22/13 1000 Chris Longo MD | | | | | + + + + + + + + | Performing | Address | City/State/Zipcode | Phone Number | | Organization | | | | + + + + + | [facility] | [address] | [place] | [phone] | | [facility] | | [address] | | | - IMAGING | | | | + + + + + documented in this encounter Visit Diagnoses Not on filedocumented in this encounter
--- OUTSIDE RECORDS SUMMARY | ~2019-10-27 | XMS | Encounter Summary ---
Demographics + + + | Address | [address] | | | [place] [address] | + + + | Home Phone [...] [place], | | | | | [place] [address] | | + + + + + | Kellen Briones | ECON | [place] | | | | | [address] | | + + + + + Care Team Providers + +------+ + | Care Clinical Project Assistant Name | Role | Phone | [...] [address] [facility] [address] | [address] [place], [place] | (Primary Dx) | | | | [place], [place] | [address] | | | | | [address] | | | | | | [phone] | | | +--------+ + + + [...]
--- OUTSIDE RECORDS SUMMARY | ~2019-10-27 | XMS | Encounter Summary ---
Demographics + + + | Address | [address] | | | [place] [address] | + + + | Home Phone [...] [place], | | | | | [place] [address] | | + + + + + | Keleln Briones | ECON | [place] | | | | | [address] | | + + + + + Care Team Providers + +------+ + | Care Attorney At Law Name | Role | Phone | + +------+ + | Barb Marte | THANG | | + +------+ + Encounter Details +--------+ + + + + | Date | Type | Department | Care Team | Description | +--------+ + + + + | 01/31/ | Hospital | [facility] | Judson Palacios DO | | | 2018 - | Encounter | [facility] | [address] | | | | | CARE FLO[address] | [place] [address] | | | 02/05/ | | [address] | [phone] | | | 2017 | | [place], [place] | | | | | | [address] | | | | | | [phone] | | | +--------+ + + + [...] Service: Hospitalist Author Type: Physician Filed: 02/06/18 3232 Date of Service: 02/05/181509 Status: Signed Hay Baler: Faisal Briceno MD (Physician) [facility] Service: Hospitalist Discharge Summary Date of Admission: 01/31/2018 Date of Discharge: 02/05/2018, 4 PM Discharge Provider: FAISAL BRICENO MD Treatment Team: Consulting Physician: Patrick aGffney MD Admitting Provider: Judson Palacios DO Discharge [...] confu aura. She was initially admitted to [facility] from 01/16/2018 till 01/28/2018 d ue to suspicion of acute left MCA stroke. Work up there with MRI was negative while Carotid FDopplers showed less than 50 % stenosis. She was subsequently discharged home but she was r eadmitted due to increasing confusion and mild renal failure with creatinine 1.26. She was e ventually transferred to [facility] for further management. She did [...] No discharge procedures on file. Follow up: [facility] Schedule an appointment as soon as possible [...] Author: JASON Montaño Service: (none) Author Type: Supervisor Telephone Clerks Filed: 02/05/181418 Date of Service: 02/05/181417 Status: Signed Hay Baler: JASON Montaño (Supervisor Telephone Clerks) Pt's daughter is Lucy and can be reached at: [phone]; [phone] JASON Montaño onver aura Transaction, Provider Unknown - 02/05/2018 2:17 PM PDT Case Management by JASON Montaño at 02/05/181416 Author: JASON Montaño Service: (none) Author Type: Supervisor Telephone Clerks Filed: 02/05/181416 Date of Service: 02/05/181416 Status: Signed Hay Baler: JASON Montaño (Supervisor Telephone Clerks) Disposition: Home to [place] Transportation: Daughter Patient and family in agreement with discharge plan Medicare important message (Given or N/A): Given- signed and placed in chart JASON Montaño onver aura Transaction, Provider Unknown - 02/05/2018 6:59 AM PDT Nurse Progress Note by Nila Gonzalez RN at 02/05/18658 Author: Nila Gonzalez RN Service: (none) Author Type: Registered Nurse Filed: 02/05/18701 Date of Service: 02/05/18658 Status: Signed Hay Baler: Nila Gonzalez RN (Registered Nurse) End of shift review completed by this RN. Nila Gonzalez RN onver aura Transaction, Provider Unknown - 02/05/2018 6:44 AM PDT Nurse Progress Note by Vonnie Nolasco RN at 02/05/18643 Author: Vonnie Nolasco RN Service: (none) Author Type: Registered Nurse Filed: 02/05/18647 Date of Service: 02/05/18643 Status: Signed Hay Baler: Vonnie Nolasco RN (Registered Nurse) Patient A/OX4, [...] 02/05/18226 Date of Service: 02/05/18224 Status: Signed Hay Baler: Vonnie Nolasco RN (Registered Nurse) IV occluded, [...] 02/04/181849 Date of Service: 02/04/181838 Status: Signed Hay Baler: Claribel Kerr RN (Registered Nurse) Patient afebrile, [...] 02/04/181954 Date of Service: 02/04/181629 Status: Signed Hay Baler: Margo Phillips PT (Physical Therapist) PHYSICAL THERAPY TREATMENT NOTE PT Received On: 02/04/18 Reason for Treatment: Deconditioning Requires PT Follow Up: Yes Follow up PT Only?: No Focus for Next Treatment: Stair Training, Family Training/Education (see comment), Patient Education (see comment) Assistance Required: 1 person [place]atra Opener Needed: No Recommendations: Home Assist, Prior Setting, Acute ST, Acute OT, OP PT (resume previous OPP T) Equipment Recommended: (none, has SPC and 4ww at baseline) Barriers to Discharge: Cognitive Deficits Impacting Functional Wilkes, Physical Defic its Impacting Functional Wilkes, Self-care Deficits Impacting Functional Wilkes Recommendation Comments: Limitation for ongoing mobility assessment and stair negotiation t joslyn's date 07/05 nausea. Pt requires further mobility assessment to maximize safe d/c plan. A nticipate home with daughter with 24/12 assist and resume OPPT for balance deficits. Plan Treatment/Interventions: Continue per Primary PT POC Progress: Progressing toward goals PT Frequency: 5-7x/wk, Once per day Summary Comments: Pt received finishing shower with ASSURANCE SOURCING MANAGER, agreeable to PT intervention with emphasis for Tinetti assessment revealing pt with ongoing high risk of falling. Pt observed with brit quent attempt to stabilize self with significant reach [...] Date of Service: 02/04/18 1615 Status: Signed Hay Baler: Tala Muro RD (Registered Dietitian) 02/04/18 1537 [...] Physical Findings Digestive System (Mouth to Rectum) TANK REFINISHER following. Pt reports she doesn't like the [...] Estimated Energy Needs Total Energy Estimated Needs 0281-1841 kcal/day Method for Estimating Needs 25-30 kcal/kg based on adj BW of 55.6 kg Estimated Protein Needs Total Protein Estimated Needs 67-83 g/day Method for Estimating Needs 1.2-1.5 g/kg based on adj BW of 55.6 kg Recommendations Recommended energy needs Continue diet per TANK REFINISHER. Send Boost Pudding TID with meals. Encourag [...] Progress Note by EARNEST Francois-S at 02/04/18 1076 Author: EARNEST Francois-S Service: (none) Author Type: Speech Therapist Filed: 02/04/18 3768 Date of Service: 02/04/18 1416 Status: Attested Hay Baler: EARNEST Francois-S (Speech Therapist) Cosigner: Desi Leary MS [facility]-TANK REFINISHER at 02/04/18 1516 Attestation signed by Desi Leary MS CCC-TANK REFINISHER at 02/04/18 1516 Student therapist educationally participated in therapy session under the supervision of shayne miguel licensed therapist. This note was created by the student therapist and co-signed by the wyatt méndezed therapist. Information in this note may have been obtained from flowsheet charting. T his note is co-signed at the treatment plan/progress note level. The patient approved of shayne miguel student's role in care. BEDSIDE SWALLOW TANK REFINISHER Last Visit TANK REFINISHER Received On: 02/04/18 Requires TANK REFINISHER Follow Up: Yes Recommendations Liquids Consistency Recommendations: [place] thick (Ok for thins between meals) Diet [...] are progressing unless otherwise indicated. Dysphagia Goals Sustainable Development Policy Analyst Goals: Advanced diet Pt will advanced diet [...] evidence of learning [] Refused Tonya Grullon, TANK REFINISHER-S 02/04/2018 3:10 PM Faisal Muse MD - 02/04/2018 11:34 AM PDTFormatting of this note might be different from yadi thibodeaux original. Progress Notes by Faisal Briceno MD at 02/04/18 7391 Author: Faisal Briceno MD Service: Hospitalist Author Type: Physician Filed: 02/04/18 1546 Date of Service: 02/04/18 0684 Status: Signed Hay Baler: Faisal Briceno MD (Physician) [facility] Service: Hospitalist Progress Note Clementine Hand Janymerlyn 77 y.o. [phone] [id number]/[id number] female PER PT NONE (Inactive) Hospital Day: LOS: 4 days SUBJECTIVE Patient Summary: Patient is a 77 year old female with past medical history of Stroke, CAD, S/P CABG, DM Type II, Chronic Back Pain on Opioids who was admitted due to mental status changes and confusio n. She was initially admitted to [facility] from 01/16/2018 till 01/28/2018 due to suspicion of acute left MCA stroke. Work up there with MRI was negative while Carotid FDo pplers showed less than 50 % stenosis. She was subsequently discharged home but she was read mitted due to increasing confusion and mild renal failure with creatinine 1.26. She was even tually transferred to [facility] for further management. She did [...] 99 mg/dL CBC w/no Diff Collection Time: 02/04/18 4:42 AM Result Value Ref Range WBC [...] Secondary to dehydration and confusion. [facility], appreciate their help. DVT prophylaxis with [...] 02/04/18731 Date of Service: 02/04/18731 Status: Signed Hay Baler: Thais Castellon RN (Registered Nurse) Pt had [...] 02/03/181705 Date of Service: 02/03/181701 Status: Signed Hay Baler: Thais Antunez RN (Registered Nurse) Pt alert [...] Date of Service: 02/03/18 1051 Status: Addendum Hay Baler: Sumit Alvarenga MD (Physician) Related Notes: Original Note by Sumit Alvarenga MD (Physician) filed at 02/03/18 1122 [facility] Service: Hospitalist Progress Note Hospital Day: LOS: 3 days Post-Op Day: * No surgery found * SUBJECTIVE Patient Summary: admission H and P Dr. Palacios:"transferred from [facility] in [place] to [facility] today for ongoing confusion of unclear etiology. Originally hospi talized at [facility] 01/26-01/28 due to confusion, aphasia, suspected CVA. Workup included neg MRI, US carotids showing 50% stenosis, unremarkable echo and telemetry. She was evaluate d by PHYSICAL THERAPY/OT/TANK REFINISHER and DC'd home. She reportedly was alert, [...] but this could not be done at [facility]. She was accepted by Dr Victor [...] dependent chronic back pain, originally hospitalized at [facility] A ugust to the due to suspected left MCA stroke, apparent workup included a negative M RI, ultrasound carotid showed less than 50 percent stenosis, she was subsequently discharged home. She then returned back to [facility] on the evening of January 30 with increased co nfusion, according to notes hyperreflexia, increased renal failure with creatinine 1.26, sh e was hydrated improved renal function, due to ongoing symptoms [facility] requested zamorano sfer to our facility for [...] with patient's daughter over the phone (Leighton [phone]), she is hopeful that she can return [...] able to tell me she is at [facility], able to tell me she lives in [place] on, was unsure of the month and date , Cooperative, calm HENT: Mouth/Throat: No oropharyngeal exudate. 3 mm pupils bilateral, reactive Eyes: Oral mucosa moist Neck: Neck seems supple Cardiovascular: Normal rate. Pulmonary/Chest: Effort normal. Abdomina/Gl: Soft. Bowel sounds are normal. Neurological: She is alert. No cranial nerve deficit. Teacher Physically Impaired strength equal No pronation drift Motor seems [...] 02/03/18605 Date of Service: 02/02/182212 Status: Signed Hay Baler: Jessy Jeter RN (Registered Nurse) Alert and [...] 02/02/182007 Date of Service: 02/02/182006 Status: Signed Hay Baler: Minal Clarke RN (Registered Nurse) BPs remained elevated this shift, PRN hydralazine given x2 and labetolol x1. Pt has trouble finding words at times and has delayed responses. Bed alarm on at all times, end of shift r eview completed. Minal ClarkeRN onver aura Transaction, Provider Unknown - 02/02/2018 3:54 PM PDT Progress Notes by Isacc Vail at 02/02/18 1554 Author: Isacc Vail Service: (none) Author Type: Project Eng Filed: 02/02/18 1618 Date of Service: 02/02/18 1554 Status: Signed Hay Baler: Isacc Vail (Project Eng) Per Distress Referral. Pt appears calm in [...] Date of Service: 02/02/18 1033 Status: Signed Hay Baler: Jonathan Montes RN (Registered Nurse) 02/02/18 1024 Discharge Planning Evaluation Admitting Diagnosis Acute Metabolic encephalopathy Readmission No Living Arrangements Children (Pts daughter lives with her Lucy [phone]) Support Systems Children Type of Residence Private residence House type House-1 story Steps to enter 5 Independent with ADL's Yes Independent with Mobility Yes Home Care Services No Caregiver after Discharge No Mental Status Oriented Prior functional status independent Power of Director Of Blood No Anticipated Discharge Plan Post Acute Care Needs None at this time Plan communicated to patient/family Yes Resources Financial concerns No Transportation issues No Patient/Family concerns No Prescription Plan Yes Name of Pharmacy [facility] Previous home health equipment Yes Equipment Vendor [employer] for home O2, pt has 4ww Vascular access device No Ostomy/Drains/Appliances No Anticipated Disposition Facility Type Home Met with pt and discussed discharge planning, Pt is a 77 y.o., female from home with keely Ayala [phone]. Daughter will transport pt home when medically stable. Pt uses a 4ww at home when needed, Home o2 thru [employer] at 2L, and no other DME or blood thinners. Patient's PCP is:[facility] Patient's insurance:Medicare/[employer] Coverage concerns: no concerns Medication coverage/concerns: no [...] 8:26 AM PDT Progress Notes by Sumit Alavrenga MD at 02/02/18825 Author: Sumit Alvarenga MD Service: Hospitalist Author Type: Physician Filed: 02/02/1855 Date of Service: 02/02/18825 Status: Signed Hay Baler: Sumit Alvarenga MD (Physician) [facility] Service: Hospitalist Progress Note Hospital Day: LOS: 2 days Post-Op Day: * No surgery found * SUBJECTIVE Patient Summary: admission H and P Dr. Palacios:"transferred from [facility] in [place] to [facility] today for ongoing confusion of unclear etiology. Originally hospi talized at [facility] 01/26-01/28 due to confusion, aphasia, suspected CVA. Workup included neg MRI, US carotids showing 50% stenosis, unremarkable echo and telemetry. She was evaluate d by PHYSICAL THERAPY/OT/TANK REFINISHER and DC'd home. She reportedly was alert, [...] but this could not be done at [facility]. She was accepted by Dr Victor [...] dependent chronic back pain, originally hospitalized at [facility] A ugust to the due to suspected left MCA stroke, apparent workup included a negative M RI, ultrasound carotid showed less than 50 percent stenosis, she was subsequently discharged home. She then returned back to [facility] on the evening of January 30 with increased co nfusion, according to notes hyperreflexia, increase her renal failure with creatinine 1.26, she was hydrated improved renal function, due to ongoing symptoms [facility] requested josué mcpherson to our facility for [...] the date, able tell she lives i [facility] though unable to give me full address , Cooperative, calm HENT: Mouth/Throat: No oropharyngeal exudate. 3 mm pupils bilateral, reactive Eyes: Oral mucosa moist Neck: Neck seems supple Cardiovascular: Normal rate. Pulmonary/Chest: Effort normal. Abdomina/Gl: Soft. Bowel sounds are normal. Neurological: She is alert. No cranial nerve deficit. Teacher Physically Impaired strength equal No pronation drift Motor seems [...] 0636 Date of Service: 02/02/18214 Status: Signed Hay Baler: Jessy Jeter RN (Registered Nurse) Patient was [...] Note by Jina Nation RN at 02/01/18 6648 Author: Jina Nation RN Service: (none) Author Type: Registered Nurse Filed: 02/01/18 190 Date of Service: 02/01/18 1841 Status: Signed Hay Baler: Jina Nation RN (Registered Nurse) Patient has [...] complete. Jina Nation RN Idalia Darby MS CCC-TANK REFINISHER - 02/01/2018 9:40 AM PDTFormatting of this note might be different fr om the original. Therapy Progress Note by Idalia Katz MS CCC-TANK REFINISHER at 02/01/18 09 Author: Idalia Katz MS CCC-TANK REFINISHER Service: (none) Author Type: Speech and Language Patho logist Filed: 02/01/18 1001 Date of Service: 02/01/1840 Status: Signed Hay Baler: Idalia Katz MS CCC-TANK REFINISHER (Speech and Language Pathologist) BEDSIDE SWALLOW TANK REFINISHER Last Visit TANK REFINISHER Received On: 02/01/18 Requires TANK REFINISHER Follow Up: Yes Recommendations Liquids Consistency Recommendations: [place] thick, Sips of thin water ok between [...] laryngeal elevation upon palpation, Spontaneous double swallow [place] Presentation: Cup Oral: Within functional limits Pharyngeal Phase: Delayed swallow initiated, Decreased laryngeal elevation upon palpation, No overt signs or symptoms of aspiration, Spontaneous double swallow Puree Presentation: Spoon Oral Phase: Within functional limits, Increased oral holding time Pharyngeal: No overt signs or symptoms of aspiration, Delayed Swallow, Decreased Laryngeal Elevation, Spontaneous double swallow Goals are progressing unless otherwise indicated. Dysphagia Goals Sustainable Development Policy Analyst Goals: Advanced diet Pt will advanced diet [...] Notes by Sumit Alvarenga MD at 02/01/18 3367 Author: Sumit lAvarenga MD Service: Hospitalist Author Type: Physician Filed: 02/01/18 0858 Date of Service: 02/01/18830 Status: Addendum Hay Baler: Sumit Alvarenga MD (Physician) Related Notes: Original Note by Sumit Alvarenga MD (Physician) filed at 02/01/1855 [facility] Service: Hospitalist Progress Note Hospital Day: LOS: 1 day Post-Op Day: * No surgery found * SUBJECTIVE Patient Summary: admission H and P Dr. Palacios:"transferred from [facility] [place] to [facility] today for ongoing confusion of unclear etiology. Originally hospi talized at [facility] 01/26-01/28 due to confusion, aphasia, suspected CVA. Workup included neg MRI, US carotids showing 50% stenosis, unremarkable echo and telemetry. She was evaluate d by PHYSICAL THERAPY/OT/TANK REFINISHER and DC'd home. She reportedly was alert, [...] but this could not be done at [facility]. She was accepted by Dr Victor [...] dependent chronic back pain, originally hospitalized at [facility] A ugust to the due to suspected left MCA stroke, apparent workup included a negative M RI, ultrasound carotid showed less than 50 percent stenosis, she was subsequently discharged home. She then returned back to [facility] on the evening of January 30 with increased co nfusion, according to notes hyperreflexia, increase her renal failure with creatinine 1.26, she was hydrated improved renal function, due to ongoing symptoms [place] requested josué mcpherson to our facility for [...] oz)] 65.5 kg (144 lb 8 oz) (02/01 18) Physical Exam Constitutional: She appears well-developed and [...] She is alert. No cranial nerve deficit. Teacher Physically Impaired strength seems bilateral Rigidity with a passive [...] Note by Jessy Jeter RN at 02/01/18 6276 Author: Jessy Jeter RN Service: (none) Author Type: Registered Nurse Filed: 02/01/18 0652 Date of Service: 02/01/18435 Status: Signed Hay Baler: Jessy Jeter RN (Registered Nurse) Patient alert [...] Note by Jessy Jeter RN at 01/31/18 4049 Author: Jessy Jeter RN Service: (none) Author Type: Registered Nurse Filed: 01/31/182250 Date of Service: 01/31/182245 Status: Signed Hay Baler: Jessy Jeter RN (Registered Nurse) All oral [...] 01/31/181958 Date of Service: 01/31/181956 Status: Signed Hay Baler: Keith Bonds RN (Registered Nurse) Pt brought to floor by EMS. Pt given 1 mg ativan in route and pt sedated but arousible. Pt transferred to bed. Vitals taken. Dr Victor paged about Pt arrival. Cares and report given to oncoming nurse. docume nted in this encounter Plan of Treatment Not [...] | | | Fingerstick | performed at [facility];[address] | | LAB | | | | [address];[place] | | | | | | [address] | | | | + + + [...] | | | | | | MDRD IDWV traceable | | | | | | equation.Testing | | | | | | performed at [facility];[address] | | | | | | [facility];[place], [place] | | | | | | [address] | | | | + + + [...] | | | Fingerstick | performed at [facility];[address] | | LAB | | | | [address];[place] | | | | | | [address] | | | | + + + [...] | | | Fingerstick | performed at [facility];[address] | | LAB | | | | [address];[place] | | | | | | [address] | | | | + + + [...] | | | Fingerstick | performed at [facility];[address] | | LAB | | | | [address];[place], [place] | | | | | | [address] | | | | + + + [...] | | | Fingerstick | performed at [facility];[address] | | LAB | | | | [address];[place], [place] | | | | | | [address] | | | | + + + [...] | | | Fingerstick | performed at [facility];[address] | | LAB | | | | [address];[place] | | | | | | [address] | | | | + + + [...] + + + + + + | Red Blood | 3.93 | 3.70 - 5.10 | EXTERNAL | | | Cells | | M/uL | LAB | | | Counted | | | | | + + + + + + | Hemoglobin | 12.8 | 11.3 - 15.5 | [...] EXTERNAL | | | | performed at [facility], [address] | | LAB | | | | [address], | | | | | | [place] [address] | | | | + + + [...] | | | | | | MDRD IDWV traceable | | | | | | equation.Testing | | | | | | performed at [facility], [address] | | | | | | [facility], | | | | | | [place] [address] | | | | + + + [...] | | | Fingerstick | performed at [facility];[address] | | LAB | | | | [address];[place], [place] | | | | | | [address] | | | | + + + [...] | | | Fingerstick | performed at [facility];[address] | | LAB | | | | [address];[place] | | | | | | [address] | | | | + + + [...] | | | Fingerstick | performed at [facility];[address] | | LAB | | | | [address];[place] | | | | | | [address] | | | | + + + [...] | | | Fingerstick | performed at [facility];[address] | | LAB | | | | [address];[place] | | | | | | [address] | | | | + + + [...] | | | | | performed at [facility], [address] | | | | | | [facility], | | | | | | [place] [address] | | | | + + + [...] | | | Fingerstick | performed at [facility];[address] | | LAB | | | | [address];[place] | | | | | | [address] | | | | + + + [...] | | | Fingerstick | performed at [facility];[address] | | LAB | | | | [address];[place], [place] | | | | | | [address] | | | | + + + [...] | | | Fingerstick | performed at [facility];[address] | | LAB | | | | [address];[place], [place] | | | | | | [address] | | | | + + + [...] | | | Fingerstick | performed at [facility];[address] | | LAB | | | | [address];[place], [place] | | | | | | [address] | | | | + + + [...] + + | Hemoglobin | 5.4Comment: The [place] | 4.0 - 6.0 % | EXTERNAL [...] | | | | | performed at [facility], [address] | | | | | | [facility], | | | | | | [place] [address] | | | | + + + [...] | | | Fingerstick | performed at [facility];[address] | | LAB | | | | [address];[place] | | | | | | [address] | | | | + + + [...] | | | Fingerstick | performed at [facility];[address] | | LAB | | | | [address];[place], [place] | | | | | | [address] | | | | + + + [...] | | | Fingerstick | performed at [facility];[address] | | LAB | | | | [address];[place], [place] | | | | | | [address] | | | | + + + [...] + + + + + + | Red Blood | 3.87 | 3.70 - 5.10 | EXTERNAL | | | Cells | | M/uL | LAB | | | Counted | | | | | + + + + + + | Hemoglobin | 12.5 | 11.3 - 15.5 | [...] | | | Basophils | performed at [facility], [address] | K/uL | LAB | | | | [address], | | | | | | [place] [address] | | | | + + + [...] EXTERNAL | | | | performed at [facility], [address] | uIU/mL | LAB | | | | [address], | | | | | | [place] [address] | | | | + + + [...] EXTERNAL | | | | performed at [facility];[address] | mmol/L | LAB | | | | [address];[place] | | | | | | [address] | | | | + + + [...] EXTERNAL | | | | performed at [facility];[address] | | LAB | | | | Kori Jimenez;[place] | | | | | | [address] | | | | + + + [...] | | | | | performed at [facility], [address] | | | | | | [facility], | | | | | | [place] [address] | | | | + + + [...]
--- OUTSIDE RECORDS SUMMARY | ~2019-10-27 | XMS | Encounter Summary ---
Demographics + + + | Address | [address] | | | [place] [address] | + + + | Home Phone [...] [place], | | | | | [place] [address] | | + + + + + | Kellen Briones | ECON | [place], [place] | | | | | [address] | | + + + + + Care Team Providers + +------+ + | Care Head Of Research & Insights Name | Role | Phone | + +------+ + | Anna De Guzman PA-C | PCP | | + +------+ + Encounter Details +--------+ + + + + | Date | Type | Department | Care Team | Description | +--------+ + + + + | 03/07/ | Preadmit | [facility] | Irving Becerril, | Stroke of unknown | | 2016 | Visit | MED CTR P[facility] | DO [address] | etiology (HCC); | | | | CLINIC [address] | [address] [place], [place] | Cerebrovascular | | | | [place], [place] | [address] | accident (CVA), | | | | [address] | | unspecified | | | | [...] involving | | | | | | tonkawa coronary | | | | | | artery of tonkawa | | | | | | heart without angina | | | | | | pectoris; 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 | | | | | | without complication | | | | | | ([facility]LY [facility]); Essential | | | | | | hypertension; | | | | | | Syncope and | | | | | | collapse; Cancer | | | | | | (FORMERLY [facility]); 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| | hyperlipidemia; ST | | | | | | elevation myocardial | | | | | | infarction (STEMI), | | | | | | unspecified artery | | | | | | (FORMERLY [facility]); | | | | | | [...] with | | | | | | ibrlbmsqweukh-A4-S7 | | | | | | level [...] region | | | | | | ([facility]ERLY [facility]); DDD | | | | | [...] involving | | | | | | tonkawa coronary | | | | | | artery of tonkawa | | | | | | heart without angina | | | | | | pectoris 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 | | | | | | without complication | | | | | | ([facility]LY [facility]) Essential | | | | | | hypertension | | | | | | Syncope and collapse | | | | | | Cancer ([facility]) | | | | | | Other [...] with | | | | | | wkehuawlxgriu-A1-I1 | | | | | | level [...] region | | | | | | ([facility]) DDD | | | | | | [...] involving | | | | | | tonk[place] coronary | | | | | | artery of tonkawa | | | | | | heart [...] with | | | | | | qjrymtffnbkfc-A6-S9 | | | | | | level [...] involving | | | | | | tonk[place] coronary | | | | | | artery of tonk[place] | | | | | | heart [...] with | | | | | | opavfhxkelpga-W3-N3 | | | | | | level [...] involving | | | | | | tonk[place] coronary | | | | | | artery of tonkawa | | | | | | heart [...] with | | | | | | vsieqpxqqganc-T2-D6 | | | | | | level [...] involving | | | | | | tonk[place] coronary | | | | | | artery of tonkawa | | | | | | heart [...] with | | | | | | xfpkeepgriojz-F5-Y9 | | | | | | level [...] region | | | | | | ([facility]LY [facility]) DDD | | | | | | [...] | | | | | mg/dL | [facility] | | | | | | MEDICAL | | | | | | CENTER - | | | | | | LABORATORY | | + + + + + + | eGFR if not | 57 (L)Comment: | >=60 | [facility] | | | | GLOMERULAR FILTRATION | mL/min/1.73m2 | [facility] | | | VENEZUELAN | RATE,ESTIMATED | | MEDICAL | | | | mL/min/1.57r2Kqde than | | CENTER - | | [...] + | [facility] | [address] | [place], [place] | [phone] | | [facility] | | [address] | | | - LABORATORY | | [...] + | [facility] | [address] | [place] | [phone] | | [facility] | | [address] | | | - LABORATORY | | [...] [address] | [place] | [phone] | | [facility] | | [address] | | | - LABORATORY | | [...] [address] | [place] | [phone] | | [facility] | | [address] | | | - LABORATORY | | [...] 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
--- OUTSIDE RECORDS SUMMARY | ~2019-10-27 | XMS | Encounter Summary ---
Demographics + + + | Address | [address] | | | [place] [address] | + + + | Home Phone [...] [place], | | | | | [place] [address] | | + + + + + | Kellen Briones | ECON | [place], [place] | | | | | [address] | | + + + + + Care Team Providers + +------+ + | Care Collar Band Creaser Name | Role | Phone | + [...] | NARESH Villareal-C | [address] | | | | | radiculopath | [address] | [place], | | | | | y | [address] | [place] | | | | | Procedures | [address] | [address] | | | | | MRI Lumbar | [place], | Phone: | | | | | Spine wo | [place] [address] | [phone] | | | | | Contrast | Phone: | Fax: | | | | | | [phone] | [phone] | | | | | | Fax: | | | | | | | [phone] | | +--------+--------+ + + + + [...] | AYAAN Villareal | [address] | | | | | radiculopath | [address] | [place], | | | | | y | [address] | [place] | | | | | Procedures | [address] | [address] | | | | | MRI Lumbar | [place], | Phone: | | | | | Spine wo | [place] [address] | [phone] | | | | | Contrast | Phone: | Fax: | | | | | | [phone] | [phone] | | | | | | Fax: | | | | | | | [phone] | | +--------+--------+ + + + + Encounter Details +--------+ + + + + | Date | Type | Department | Care Team | Description | +--------+ + + + + | 01/22/ | Hospital | [facility] | Mono Diaz, | Lumbar radiculopathy | | 2018 | Encounter | MED CTR MRI [address] | PA-C [address] | | | | | [address] [place], | [address] [place] | | | | | [place] [address] | [place] [address] | | | | | [phone] | [phone] | | | | | | | [...] L4 nerve root along with the descending L1bsyvc | | roots within the subarticular recesses.L5-S1: Moderate to severe disc space narrowing | | and generalized disc osteophytecomplex combine with dorsal ligamentous and facet | | hypertrophy to moderatelynarrow the foramina to a similar degree, with encroachment on | | the exiting N9bszvb roots along with the descending S1 nerve [...] DISEASE AND | | MILD ANTEROLISTHESIS AT I19-N2NNLF MILD STENOSIS.7. LEVOSCOLIOSIS AND MULTILEVEL FACET | [...] + + | Performing | Address | City/State/[facility] | Phone [...]
--- OUTSIDE RECORDS SUMMARY | ~2019-10-27 | XMS | Encounter Summary ---
Demographics + + + | Address | [address] | | | [place] [address] | + + + | Home Phone [...] [place], | | | | | [place] [address] | | + + + + + | Kellen Briones | ECON | [place], [place] | | | | | [address] | | + + + + + Care Team Providers + +------+ + | Care Adult Services Librarian Name | Role | Phone | [...] Lumbar | AYAAN Villareal | [address] | | | | | radiculopath | [address] | [place], | | | | | y | [address] | [place] | | | | | Procedures | [address] | [address] | | | | | MRI Lumbar | [place], | Phone: | | | | | Spine wo | [place] [address] | [phone] | | | | | Contrast | Phone: | Fax: | | | | | | [phone] | [phone] | | | | | | Fax: | | | | | | | [phone] | | +--------+--------+ + + + + Reason for Visit + + + | Reason | Comments | + + + | Follow-up | Low Back Pain | + + + Encounter Details +--------+---------+ + + + | Date | Type | Department | Care Team | Description | +--------+---------+ + + + | 01/07/ | Office | [facility] | Mono Diaz, | Lumbar radiculopathy | | 2018 | Visit | PHYSIATRY [address] | PA-C [address] | (Primary Dx); | | | | [address] | [address] [place] | Spinal stenosis of | | | | [place] | [place] [address] | lumbar region with | | | | [address] | [phone] | shdcpfrtmcekk-T4-R3 | | | | [phone] | | level moderately | | | [...] press against a nerve. Date Last Reviewed: 03/06/201519995963-6668 [employer]. [address] [place] [address]. All righ ts reserved. This information is [...] and narcotic medications use; she currently uses Meldrim, Flexeril and ga bapentin. 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 Unfortunately Clementine Winchester continues to have significant [...] on filedocumented as of this encounter Results MRI Lumbar [...] L4 nerve root along with the descending N6krjev | | roots within the subarticular recesses.L5-S1: Moderate to severe disc space narrowing | | and generalized disc osteophytecomplex combine with dorsal ligamentous and facet | | hypertrophy to moderatelynarrow the foramina to a similar degree, with encroachment on | | the exiting L6urncs roots along with the descending S1 nerve [...] DISEASE AND | | MILD ANTEROLISTHESIS AT P18-G6JABS MILD STENOSIS.7. LEVOSCOLIOSIS AND MULTILEVEL FACET | [...] | Spinal stenosis of lumbar region with iicdnclvrpxgx-X3-E3 level moderately severe | | Spinal stenosis, lumbar region, without neurogenic claudication | + + documented in this encounter
--- OUTSIDE RECORDS SUMMARY | ~2019-10-27 | XMS | Encounter Summary ---
Demographics + + + | Address | [address] | | | [place] [address] | + + + | Home Phone [...] | [facility] | | | and [...] [place], | | | | | [place] [address] | | + + + + + | Kellen Briones | ECON | [place], [place] | | | | | [address] | | + + + + + Care Team Providers + +------+ + | Care Bottle Packing Machine Cleaner Name | Role | Phone | [...] + + | 02/11/ | Office | [facility] | Mono Diaz, | Lumbar radiculopathy | | 2018 | Visit | PHYSIATRY [address] | PA-C [address] | (Primary Dx) | | | | [address] | [address] [facility] | | | | | [place], [place] | [place] [address] | | | | | [address] | [phone] | | | | | [phone] | | | +--------+---------+ + + + [...] press against a nerve. Date Last Reviewed: 08/01/201719990021-6726 [employer]. [address] [place] [address], [place] [address]. All righ ts reserved. This information is [...] back symptoms. Recenlty patient was admitted to [facility]'s ED/ICU for abnormal behavior which was originally treated as a str samantha, patient's daughter requested she be transferred to [facility] where patient was diagnosed w ith Serotonin [...] and narcotic medications use; she currently uses Thermal, Flexeril and ga bapentin. She is taking [...] has no apparent deficits with short or long-term memory. 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 Unfortunately Clementine Winchester continues to have significant [...]
--- OUTSIDE RECORDS SUMMARY | ~2019-10-27 | XMS | Encounter Summary ---
Demographics + + + | Address | [address] | | | [place] [address] | + + + | Home Phone [...] [place], | | | | | [place] [address] | | + + + + + | Kellen Briones | ECON | [place], [place] | | | | | [address] | | + + + + + Care Team Providers + +------+ + | Care Urology Physician Assistant Name | Role | Phone [...] | | | | | claudication | [place], [place] | [address] | | | | | Procedures | [address] | Phone: | | | | | MRI Lumbar | Phone: | [phone] | | | | | Spine wo | [phone] | Fax: | | | | | Contrast | Fax: | [phone] | | | | | | [phone] | | +--------+--------+ + + + + Encounter Details +--------+ + + + + | Date | Type | Department | Care Team | Description | +--------+ + + + + | 04/09/ | Hospital | [facility] | Monster White MD | | | 2019 | Encounter | MED CTR MRI [address] | [address] | | | | | [place], | [address] [place] | | | | | [place] [address] | [address] | | | | | [phone] | | | +--------+ + + + [...] effects the | | right side at L1-I2nwjck it is severe and bilaterally at L5-S1 [...]
--- OUTSIDE RECORDS SUMMARY | ~2019-10-27 | XMS | Encounter Summary ---
Demographics + + + | Address | [address] | | | [place] [address] | + + + | Home Phone [...] [place], | | | | | [place] [address] | | + + + + + | Kellen Briones | ECON | [place], [place] | | | | | [address] | | + + + + + Care Team Providers + +------+ + | Care Infection Control Coordinator Name | Role | Phone | [...] + + | 10/18/ | Office | [facility] | [place], | Cervical stenosis of | | 2016 | Visit | PHYSIATRY [address] | [address] | spinal canal | | | | [address] | [address] | (Primary Dx); | | | | [place] | [place] [address] | Spondylolisthesis of | | | | [address] | [phone] | cervical region; | | | | [phone] | | 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; | | | | | | Lumbar | | | | | | radiculopathy; | | | | | | Spinal stenosis of | | | | | | lumbar region with | | | | | | devzvyrixgzri-Y0-F0 | | | | | | level [...] of the procedure you must provide a paratransit driver to take you home. For all [...] and narcotic medications use; she currently uses Tyronza, Flexeril and ga bapentin. Patient's medications, allergies, [...] 5. Spinal stenosis of lumbar region with bjpmwngrtflsx-C8-L1 level moderately severe 6. Facet arthritis of [...] Arthritis ICD-10 Code M43.12 Clementine Winchester | [facility] | | presents to the [...] + | [facility] | [address] | [place] | [phone] | | [facility] | | [address] | | | - IMAGING | | | | + + + + + [place] BAUTISTA Lumbar Transforaminal (11/16/2015 2:29 PM PDT) + + | Specimen | + + | | + + + + + | Narrative | Performed At | + + + | 11/16/2015 Bilateral Transforaminal Epidural Steroid Injections | [facility] | | Diagnosis: Lumbar radiculopathy ICD-10 Code M54.16 [place] | [facility] | | Lizett Winchester presents to the fluoroscopy suite for [facility] | | fluoroscopically-guided bilateral L5-S1 [...] [address] | [place] | [phone] | | [facility] | | [address] | | | - IMAGING | | [...] | Spinal stenosis of lumbar region with hnmwwxuhmcyav-H1-Y3 level moderately severe | | Spinal stenosis, [...]
--- OUTSIDE RECORDS SUMMARY | ~2019-10-27 | XMS | Encounter Summary ---
Demographics + + + | Address | [address] | | | [place] [address] | + + + | Home Phone [...] [place], | | | | | [place] [address] | | + + + + + | Kellen Briones | ECON | [place], [place] | | | | | [address] | | + + + + + Care Team Providers + +------+ + | Care Vision Specialist Name | Role | Phone | [...] + + | 12/22/ | Telephone | [facility] | Ramon Real | Appointment | | 2012 | | [address] | FMD [address] | (Appointment | | | | [address] | [place], [place] | request) | | | | [place], [place] | [address] | | | | | [address] | [phone] | | | | | [phone] | | | +--------+ + + + [...]
--- OUTSIDE RECORDS SUMMARY | ~2019-10-27 | XMS | Encounter Summary ---
Demographics + + + | Address | [address] | | | [place] [address] | + + + | Home Phone [...] [place], | | | | | [place] [address] | | + + + + + | Kellen Briones | ECON | [place], [place] | | | | | [address] | | + + + + + Care Team Providers + +------+ + | Care Industrial Technology Education Teacher Name | Role | Phone | [...] Thoracic or | [place], | [address] | | | | | lumbosacral | Tk Monreal MD | [place], | | | | | neuritis or | [address] | [place] | | | | | | ST [place] | [address] | | | | | radiculitis, | [place], [place] | Phone: | | | | | unspecified | [address] | [phone] | | | | | Procedures | Phone: | Fax: | | | | | RI INJECT | [phone] | [phone] | | | | | ANES/STEROID | Fax: | | | | | | [place] | [phone] | | | | | | LUMBAR/SACRA | | | | | | | L W IMG | | | | | | | GUIDE ,1 | | | | | | | LEVEL RI | | | | | | [...] + + | 06/08/ | Hospital | [facility] | Tk Ann | Lumbar radiculopathy | | 2015 | Encounter | MED CTR XRAY [address] | T, [address] | (Primary Dx); DDD | | | | [address] [place] | ST [place], [place] | (degenerative disc | | | | [facility] [place] [address] | [address] | disease), lumbar; | | | | [phone] | | Facet arthritis of | | | | | Lacing Presser, [facility] | lumbar region-Most | | | | | [place] | severe at | | | | | | L4-L5,L5-S1; Spinal | | | | | | stenosis of lumbar | | | | | | region with | | | | | | qrsnsxtjkdltk-X8-S4 | | | | | | level [...] with | | | | | | yldujnottmvcc-Q0-R0 | | | | | | level [...] 06/08/2014 Bilateral Transforaminal Epidural Steroid Injections | [facility] | | Diagnosis: Lumbar radiculopathy ICD-9 Code 724.4 Clementine Phoenix | [facility] | | Annabella presents to the fluoroscopy suite for fluoroscopically-guided [facility] | | bilateral L5-S1 transforaminal [...] + | [facility] | [address] | [place], [place] | [phone] | | [facility] | | [address] | | | - IMAGING | | [...] | Spinal stenosis of lumbar region with pxbzkqhhkeobe-K7-E3 level moderately severe | | Spinal stenosis, [...] | Other | | mL, Intradermal, ONCE, [place] 06/08/14 | | 15 1:15 | | | (Comment | | at 1330, For 1 dose, Radiology | | PM PST | | | ) | + +-------+ +-------+---+ + +---+---+ | | | +---+---+ documented in this encounter"
--- OUTSIDE RECORDS SUMMARY | ~2019-10-27 | XMS | Clinical Summary ---
Demographics + + + | Address | [address] | | | [place] [address] | + + + | Home Phone | | + + + | Preferred Language | Unknown | + + + | Marital Status | Unknown | + + + | Scientologist Affiliation | Unknown | + + + [...] Team Providers + +------+ + | Care Instrument Technician Helper Name | Role | Phone | + +------+ + PCP | Unavailable | + +------+ + Source Comments HOLLY is fully live on both [facility] Ambulatory and [facility] InPatient.[facility] Allergies Not on File Medications Not on [...]
--- OUTSIDE RECORDS SUMMARY | ~2019-10-27 | XMS | Encounter Summary ---
Demographics + + + | Address | [address] | | | [place] [address] | + + + | Home Phone [...] [place], | | | | | [place] [address] | | + + + + + | Kellen Briones | ECON | [place], [place] | | | | | [address] | | + + + + + Care Team Providers + +------+ + | Care Legislative Advocate Name | Role | Phone | + [...] | | | | lumbar | [place] [address] | [address] Phone: | | | | | region DDD | Phone: | [phone] | | | | | (degenerativ | [phone] | Fax: | | | | | e disc | Fax: | [phone] | | | | | disease), | [phone] | | | | | | lumbar [...] + + | 12/29/ | Office | [facility] | Leonard Terrazas | Back pain, | | 2019 | Visit | NEUROSURGERY [address] | MD Di [address] | unspecified back | | | | [address] | [address] [facility] | location, | | | | [place] | [facility] [place] [address] | unspecified back | | | | [address] | [phone] | pain laterality, | | | | [phone] | | unspecified | | | | [...] encounter Patient Instructions Patient Instructions Silvia Sun Weather Anchor - 12/29/2018 1:45 PM PDT You will need to get preoperative clearance from your primary care provider as well as your ehr trainer if you have one. If you decide [...] 12/29/2018 1:45 PM PDT Leonard Terrazas MD [address] [place] [address], [address] [place] [address] PHONE: FAX: NEUROSURGERY HISTORY AND PHYSICAL EXAMINATION [...] reflux disease) Hyperlipidemia Hypertension Lumbar radiculopathy 07/23/2012 [place] (myocardial infarction) (HCC) Neck pain on right side 05/13/2013 Oxygen dependent 2 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 Snoring Spinal stenosis of lumbar region with auwdypkliwqpx-I6-I7 level moderately severe 2012 PAST SURGICAL HISTORY: Past Surgical History: Procedure Laterality Date BELPHAROPTOSIS REPAIR 2009 bilateral bone spur left foot BREAST RECONSTRUCTION [id number] About 10 surgeries CARPAL TUNNEL RELEASE Bilateral CERVICAL SPINE SURGERY Anterior 03/30/2016 Procedure: C3-4, C4-5, C5-6, C6-7 Anterior Cervical Discectomy w/ Fusion and Plating; Bryan geon: Irving Becerril, DO; Location: [facility] OR CORONARY ARTERY BYPASS GRAFT [...] no apparent deficits with short or intermediate teacher memory. CRANIAL NERVES: II: Acuity is intact. [...] reflux disease) Hyperlipidemia Hypertension Lumbar radiculopathy 07/23/2012 [place] (myocardial infarction) (HCC) Neck pain on right side 05/13/2013 Oxygen dependent 2 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 Snoring Spinal stenosis of lumbar region with cjbnyggczzojo-L9-R7 level moderately severe 2012 PLAN: Clementine Winchester [...]
--- OUTSIDE RECORDS SUMMARY | ~2019-10-27 | XMS | Encounter Summary ---
Demographics + + + | Address | [address] | | | [place] [address] | + + + | Home Phone [...] [place], | | | | | [place] [address] | | + + + + + | Kellen Briones | ECON | [place] | | | | | [address] | | + + + + + Care Team Providers + +------+ + | Care Retail Project Merchandiser Name | Role | Phone | + +------+ + | Barb Marte | THANG | | + +------+ + Encounter Details +--------+ + + + + | Date | Type | Department | Care Team | Description | +--------+ + + + + | 04/09/ | Hospital | [facility] | Monster White MD | Lumbar stenosis with | | 2019 | Encounter | MED CTR XRAY [address] | [address]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 | | | | [place] | [address] [place] | claudication | | | | [place] [address] | [id number] | | | | | [phone] | | | +--------+ + + + [...]
--- OUTSIDE RECORDS SUMMARY | ~2019-10-27 | XMS | Encounter Summary ---
Demographics + + + | Address | [address] | | | [place] [address] | + + + | Home Phone [...] [place], | | | | | [place] [address] | | + + + + + | Kellen Briones | ECON | [place], [place] | | | | | [address] | | + + + + + Care Team Providers + +------+ + | Care Auditor Medical Claims Name | Role | Phone | + [...] Thoracic or | [place], | [address] | | | | | lumbosacral | Tk Monreal MD | [place], | | | | | neuritis or | [address] | [place] | | | | | | [place] | [address] | | | | | radiculitis, | [place], [place] | Phone: | | | | | unspecified | [address] | [phone] | | | | | Procedures | Phone: | Fax: | | | | | IN INJECT | [phone] | [phone] | | | | | ANES/STEROID | Fax: | | | | | | FORAM[place] | [phone] | | | | | | LUMBAR/SACRA [...] + + | 02/02/ | Hospital | [facility] | [place], | Spinal stenosis of | | 2013 | Encounter | MED CTR XRAY [address] | [address] [address] | lumbar region with | | | | [address] [place] | [address] | kvikaxfoxeqgu-D8-G2 | | | | [place] [address] | [place] [address] | level moderately | | | | [phone] | [phone] | severe (Primary Dx); | | | | | | Spondylolisthesis | | | | | Tk Ann T, | of lumbar region; | | | | | MD [address] | Lumbar radiculopathy | | | | | [place] | | | | | | [id number] | | | | | | | | | | | | Band Instrument RepairerJordan | | | | | | [place] [...] | | TRANSFORAMINAL | | PDT | tplmiahgztosw-U1-L6 | results section. | | | | [...] | [facility] | [address] | [place] | [phone] | | [facility] | | [address] | | | - IMAGING | | | | + + + + + documented in this encounter Visit Diagnoses + + | Diagnosis | + + | Spinal stenosis of lumbar region with zlegbciuzhovb-O9-W4 level moderately severe - | | Primary [...]
--- OUTSIDE RECORDS SUMMARY | ~2019-10-27 | XMS | Encounter Summary ---
Demographics + + + | Address | [address] | | | [place] [address] | + + + | Home Phone [...] [place], | | | | | [place] [address] | | + + + + + | Kellen Briones | ECON | [place], [place] | | | | | [address] | | + + + + + Care Team Providers + +------+ + | Care Finnish Rubber Name | Role | Phone | + [...] + + | 07/30/ | Telephone | [facility] | Monster White MD | Medication Question | | 2019 | | [facility] | [address] | | | | | ORTHOPEDIC SPINE | [address] [place], [place] | | | | | [address] | [address] | | | | | B [place], [place] | | | | | | [address] | | | | | | [phone] | | | +--------+ + + + [...]
--- OUTSIDE RECORDS SUMMARY | ~2019-10-27 | XMS | Encounter Summary ---
Demographics + + + | Address | [address] | | | [place] [address] | + + + | Home Phone | | + + + | Preferred Language | Unknown | + + + | Marital Status | Unknown | + + + | Adventist Affiliation | Unknown | + + + | Race | Unknown | + + + | Ethnic Group | Unknown | + + + Author + + + | Author | [facility] | + + + | Organization | [facility] | + + + | Address | Unknown | + + + | Phone | Unavailable | + + + Care Team Providers + +------+ + | Care Ski Technician Name | Role | Phone | [...] [address] | | | | | | [place], [place] | | | | | | [address] | | | +--------+ + + + [...]
--- OUTSIDE RECORDS SUMMARY | ~2019-10-27 | XMS | Encounter Summary ---
Demographics + + + | Address | [address] | | | [place] [address] | + + + | Home Phone [...] [place], | | | | | [place] [address] | | + + + + + | Kellen Briones | ECON | [place], [place] | | | | | [address] | | + + + + + Care Team Providers + +------+ + | Care Roll Mechanic Name | Role | Phone | [...] + + | 09/01/ | Refill | [facility] | Monster White MD | Medication Refill | | 2019 | | [facility] | [address] | | | | | ORTHOPEDIC SPINE | [address] [place], [place] | | | | | [address] | [address] | | | | | [place], [place] | | | | | | [address] | | | | | | [phone] | | | +--------+--------+ + + + [...]
--- OUTSIDE RECORDS SUMMARY | ~2019-10-27 | XMS | Encounter Summary ---
Demographics + + + | Address | [address] | | | [place] [address] | + + + | Home Phone [...] [place], | | | | | [place] [address] | | + + + + + | Kellen Briones | ECON | [place] | | | | | [address] | | + + + + + Care Team Providers + +------+ + | Care Office Coordinator Receptionist Name | Role | Phone | [...] [address] | [address] [place], [place] | (Primary Dx) | | | | [place], [place] | [address] | | | | | [address] | | | | | | [phone] | | | +--------+ + + + [...]
--- OUTSIDE RECORDS SUMMARY | ~2019-10-27 | XMS | Encounter Summary ---
Demographics + + + | Address | [address] | | | [place] [address] | + + + | Home Phone [...] [place], | | | | | [place] [address] | | + + + + + | Kellen Briones | ECON | [place], [place] | | | | | [address] | | + + + + + Care Team Providers + +------+ + | Care Account Management Assistant Name | Role | Phone | + +------+ + | Anna De Guzman PA-C | PCP | | + +------+ + Encounter Details +--------+ + + + + | Date | Type | Department | Care Team | Description | +--------+ + + + + | 09/30/ | Hospital | [facility] | Brunodathacz, | DDD (degenerative | | 2015 | Encounter | MED CTR XRAY [address] | [address]YAAN [address] | disc disease), | | | | [place] | [facility], [address] | lumbar; Spinal | | | | [place] [address] | [place] [address] | stenosis of lumbar | | | | [phone] | [phone] | region with | | | | | | bzsnxwckvrwkv-O7-C4 | | | | | Client Service CoordinatorCandace | level moderately | | | | [...] with | | | | | | xypjfameturar-L9-L5 | | | | | | level [...] radiculopathy ICD-9 Code 724.4 Clementine Phoenix | [facility] | | Annabella presents to [...] [address] | [place] | [phone] | | [facility] | | [address] | | | - IMAGING | | | | + + + + + documented in this encounter Visit Diagnoses + + | Diagnosis | + + | DDD (degenerative disc disease), lumbar Degeneration of lumbar or lumbosacral | | intervertebral disc | + + | Spinal stenosis of lumbar region with aperqqqfpdyhf-G3-D1 level moderately severe | | Spinal stenosis, [...] | | | | First dose on [facility] 09/30/14 at | | | | | [...] PM PDT | | | | | [facility] 09/30/14 at 1448, For 1 dose, | [...]
--- OUTSIDE RECORDS SUMMARY | ~2019-10-27 | XMS | Encounter Summary ---
Demographics + + + | Address | [address] | | | [place] [address] | + + + | Home Phone [...] [place], | | | | | [place] [address] | | + + + + + | Kellen Briones | ECON | [place], [place] | | | | | [address] | | + + + + + Care Team Providers + +------+ + | Care Vascular Radiologist Name | Role | Phone | + [...] + + | 05/20/ | Office | [facility] | Tk Ann | Lumbar radiculopathy | | 2013 | Visit | PHYSIATRY [address] | T[address] | (Primary Dx); DDD | | | | [address] | [address] [place] | (degenerative disc | | | | [place] | [address] | disease), lumbar; | | | | [address] | | Facet arthritis of | | | | [phone] | | lumbar region-Most | | | [...] with | | | | | | tptlwqlfjhqzn-Z6-D7 | | | | | | level [...] of the procedure you must provide a school bus driver/mechanic to take you home. For all procedur [...] spinal stenosis. Her last injection was in [facility] of this year. She reports [...] and narcotic medications use; she currently uses [place], Flexeril and ga bapentin. Patient's medications, [...] ICD-9 Code 724.4 Clementine Phoenix | [facility] | | Annabella presents to the fluoroscopy suite for fluoroscopically-guided | [facility] | [...] | + + + + + | [facility] | [address] | [place], [place] | [phone] | | [facility] | | [address] | | | - IMAGING | | [...] | Spinal stenosis of lumbar region with ozqwqvwampltm-G8-A0 level moderately severe | | Spinal stenosis, lumbar region, without neurogenic claudication | + + documented in this encounter
--- OUTSIDE RECORDS SUMMARY | ~2019-10-27 | XMS | Encounter Summary ---
Demographics + + + | Address | [address] | | | [place] [address] | + + + | Home Phone [...] [place], | | | | | [place] [address] | | + + + + + | Kellen Briones | ECON | [place] | | | | | [address] | | + + + + + Care Team Providers + +------+ + | Care Vice President Of Business Development Name | Role | Phone | + +------+ + | Barb Marte | PCP | | + +------+ + Encounter Details +--------+ + + + + | Date | Type | Department | Care Team | Description | +--------+ + + + + | 01/31/ | Hospital | [facility] | Conversion | Pain | | 2018 | Encounter | CONVERSION [address] | Transaction, | | | | | [address] | Provider Unknown | | | | | [place], [place] | [phone] | | | | | [address] | | | | | | [phone] | | | +--------+ + + + [...]
--- OUTSIDE RECORDS SUMMARY | ~2019-10-27 | XMS | Encounter Summary ---
Demographics + + + | Address | [address] | | | [place] [address] | + + + | Home Phone [...] [place], | | | | | [place] [address] | | + + + + + | Kellen Briones | ECON | [place], [place] | | | | | [address] | | + + + + + Care Team Providers + +------+ + | Care Shoe Designer Name | Role | Phone | [...] + | 01/23/ | Telephone | [facility] | Mono Diaz, | Medication Question | | 2017 | | PHYSIATRY [address] | PA-C [address] | | | | | [address] | [address] [facility] | | | | | [place], [place] | [place] [address] | | | | | [address] | [phone] | | | | | [phone] | | | +--------+ + + + [...]
--- OUTSIDE RECORDS SUMMARY | ~2019-10-27 | XMS | Encounter Summary ---
Demographics + + + | Address | [address] | | | [place] [address] | + + + | Home Phone [...] [place], | | | | | [place] [address] | | + + + + + | Kellen Briones | ECON | [place], [place] | | | | | [address] | | + + + + + Care Team Providers + +------+ + | Care Used Car Lot Attendant Name | Role | Phone | [...] + + | 10/13/ | Telephone | [facility] | Tk Ann | Appointment | | 2012 | | PHYSIATRY [address] | T[address] | | | | | [address] | [place], [place] | | | | | [place], [place] | [address] | | | | | [address] | | | | | | [phone] | | | +--------+ + + + [...]
--- OUTSIDE RECORDS SUMMARY | ~2019-10-27 | XMS | Encounter Summary ---
Demographics + + + | Address | [address] | | | [place] [address] | + + + | Home Phone [...] [place], | | | | | [place] [address] | | + + + + + | Kellen Briones | ECON | [place] | | | | | [address] | | + + + + + Care Team Providers + +------+ + | Care Superintendent Operating Name | Role | Phone | + +------+ + | Barb Marte | PCP | | + +------+ + Encounter Details +--------+ + + + + | Date | Type | Department | Care Team | Description | +--------+ + + + + | 01/31/ | Hospital | [facility] | Conversion | Diagnosis unknown | | 2018 | Encounter | CONVERSION [address] | Transaction, | | | | | [address] | Provider Unknown | | | | | [place] | [phone] | | | | | [address] | | | | | | [phone] | | | +--------+ + + + [...]
--- OUTSIDE RECORDS SUMMARY | ~2019-10-27 | XMS | Encounter Summary ---
Demographics + + + | Address | [address] | | | [place] [address] | + + + | Home Phone [...] [place], | | | | | [place] [address] | | + + + + + | Kellen Briones | ECON | [place], [place] | | | | | [address] | | + + + + + Care Team Providers + +------+ + | Care Electrical Contacts Adjuster Name | Role | Phone | + +------+ + | Anna De Guzman PA-C | PCP | | + +------+ + Encounter Details +--------+ + + + + | Date | Type | Department | Care Team | Description | +--------+ + + + + | 06/02/ | Hospital | [facility] | IsakkaydenkaileeTk mathis | | | 2012 | Encounter | MED CTR XRAY [address] | T, [address] | | | | | [place] | [place], [place] | | | | | [place] [address] | [id number] | | | | | [phone] | | | +--------+ + + + [...] Performed At | + + + | [facility] | [place] | | Department [address] [facility] | [facility] | | [ rep in street1+2] [ rep [facility] | | [facility]] Signed | - IMAGING | | | | | Patient Name: CLEMENTINE WINCHESTER Physician: | | | : 1940 Age: 73 Sex: F Unit #: [id number] | | | Exam Date: 06/02/13 Location: [facility] | | | Report #: [id number] Page: | | | %(RAD)RES..mtdd.print.filter("pg") of %(RAD) | | | RES..mtdd.print.filter("tpg") | | | | | | Accession Number: [id number] | | | CERVICAL FACET INJECTIONS, 06/02/2013 [...] Transcribed | | | Date/Time: 06/03/2013 03:50 Salon Sales Consultant: | | | <<Signature on File>> | | | Tk Monreal | | | MD Marissa06/04/13 0730 <Electronically signed by Tk Monreal | | | Marissa ALAVRADO> Tk Ann MD 06/02/13 1813 | | | Salon Sales Consultant: Zulema Sruqutejtakhn10/01/14 0350 | | | | | + + + + + + + + | Performing | Address | City/State/Zipcode | Phone Number | | Organization | | | | + + + + + | [address] | [place] | [place] | [phone] | | [facility] | | [address] | | | - IMAGING | | | | + + + + + documented in this encounter Visit Diagnoses Not on filedocumented in this encounter
--- OUTSIDE RECORDS SUMMARY | ~2019-10-27 | XMS | Encounter Summary ---
Demographics + + + | Address | [address] | | | [place] [address] | + + + | Home Phone [...] [place], | | | | | [place] [address] | | + + + + + | Kellen Briones | ECON | [place] | | | | | [address] | | + + + + + Care Team Providers + +------+ + | Care Battery Charger Conveyor Line Name | Role | Phone | + [...] + + | 06/22/ | Telephone | [facility] | Monster White MD | Surgery Appointment | | 2020 | | [facility] | [address] | (Clearance ); | | | | ORTHOPEDIC SPINE | [address] [place], [place] | Surgery Appointment | | | | [address] | [address] | (Questions) | | | | [place] | | | | | | [address] | | | | | | [phone] | | | +--------+ + + + [...]
--- OUTSIDE RECORDS SUMMARY | ~2019-10-27 | XMS | Encounter Summary ---
Demographics + + + | Address | [address] | | | [place] [address] | + + + | Home Phone [...] [place], | | | | | [place] [address] | | + + + + + | Kellen Briones | ECON | [place] | | | | | [address] | | + + + + + Care Team Providers + +------+ + | Care Scalping Machine Operator Name | Role | Phone [...] | | | | | [address] [facility] | [place] [address] | | | | | [place] [address] | | | | | | [phone] | | | +--------+ + + + [...]
--- OUTSIDE RECORDS SUMMARY | ~2019-10-27 | XMS | Encounter Summary ---
Demographics + + + | Address | [address] | | | [place] [address] | + + + | Home Phone [...] [place], | | | | | [place] [address] | | + + + + + | Kellen Briones | ECON | [place] | | | | | [address] | | + + + + + Care Team Providers + +------+ + | Care Shop Director Name | Role | Phone | [...] | unspecified whether | | | | [place], [place] | [place] [address]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 | | | | [address] | [phone] | claudication present | | | | [phone] | | (Primary Dx); DDD | | [...]
--- OUTSIDE RECORDS SUMMARY | ~2019-10-27 | XMS | Encounter Summary ---
Demographics + + + | Address | [address] | | | [place] [address] | + + + | Home Phone [...] [place], | | | | | [place] [address] | | + + + + + | Kellen Briones | ECON | [place], [place] | | | | | [address] | | + + + + + Care Team Providers + +------+ + | Care Road Boss Name | Role | Phone | + +------+ + | Anna De Guzman PA-C | PCP | | + +------+ + Encounter Details +--------+ + + + + | Date | Type | Department | Care Team | Description | +--------+ + + + + | 05/17/ | Hospital | [facility] | Irving Becerril, | Status post cervical | | 2016 | Encounter | MED CTR XRAY [address] | DO [address] | spinal fusion; | | | | [place] | [address] [place], [place] | Spondylolisthesis of | | | | [place] [address] | [phone] | cervical region | | | | [phone] | | | +--------+ + + + [...] [address] | [place] | [phone] | | [facility] | | [address] | | | - IMAGING | | | | + + + + + documented in this encounter Visit Diagnoses + + | Diagnosis | + + | Status post cervical spinal fusion Arthrodesis status | + + | Spondylolisthesis of cervical region Acquired spondylolisthesis | + + documented in this encounter"
--- OUTSIDE RECORDS SUMMARY | ~2019-10-27 | XMS | Encounter Summary ---
Demographics + + + | Address | [address] | | | [place] [address] | + + + | Home Phone [...] [place], | | | | | [place] [address] | | + + + + + | Kellen Briones | ECON | [place], [place] | | | | | [address] | | + + + + + Care Team Providers + +------+ + | Care Anatomical Embalmer Name | Role | Phone | + [...] + + | 12/23/ | Telephone | [facility] | Gonzalo Mathew MD | Records Request | | 2014 | | NEUROSURGERY [address] | [address] | (CARDIOLOGY | | | | [address] | [place] [address] | CLEARANCE) | | | | [place] | [phone] | | | | | [address] | | | | | | [phone] | | | +--------+ + + + [...]
--- OUTSIDE RECORDS SUMMARY | ~2019-10-27 | XMS | Encounter Summary ---
Demographics + + + | Address | [address] | | | [place] [address] | + + + | Home Phone [...] [place], | | | | | [place] [address] | | + + + + + | Kellen Briones | ECON | [place], [place] | | | | | [address] | | + + + + + Care Team Providers + +------+ + | Care Power Builder Developer Name | Role | Phone | [...] | | | DRIVE [address] | [address] | | | | | | D | [place], | | | | | | [place], | [place] [address] | | | | | | [place] [address] | Phone: | | | | | | Phone: | [phone] | | | | | | [phone] | Fax: | | | | | | Fax: | [phone] | | | | | | [phone] | | +--------+ + + + + + Encounter Details +--------+---------+ + + + | Date | Type | Department | Care Team | Description | +--------+---------+ + + + | 09/16/ | Office | [facility] | Bobby Grier | Snoring (Primary | | 2012 | Visit | SLEEP DISORDER [address] | MD [address] | Dx); Chronic | | | | [address] [place] | [address] [place] | narcotic use | | | | [place] [address] | [place] [address] | | | | | [phone] | [phone] | | | | | | | [...] differen t from the original. Gely Easley [facility] [place] [address] Ref: Patrick Gaffney MD CC: Chief Complaint [...] and back pain she was started on [place], baclofen, flexeril, and zanaflex in February of 2012 according to the patient and her daughter (the EMR supports this too). Currently she is on the zanaflex and [place]. She had been started on Celexa in November of 2011 for depression. Wellbutrin was started in July of 2010 after heart surgery. She currently takes 2 [place] tabs tid. She started having spells of [...] of 20-30 minutes. She often takes a [place] at about 8pm and rarely after 10pm. [...] Hypertension; Stroke; Syncope and collapse; Cancer; Hyperlipidemia; [place] (myocardial inf arction); GERD (gastroesophageal reflux disease); Asthma; Arthritis; Lumbar radiculopathy (); DDD (degenerative disc disease), lumbar (07/23/2012); Spinal stenosis of lumbar re gion with jwcjvrqppywqp-I9-H7 level moderately severe (07/23/2012); Facet arthritis of lumbar region-Most severe at L4-L5,L5-S1 (07/23/2012); and Snoring. 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 I've discussed this in detail with [...] [facility] CC: Emerita Draper Taye, Bobby Booker Jr., MD - 09/16/2012 10:17 AM PDTFormatting of this note might be different from the origin al. 09/16/12 1000 Thompson Depression Inventory-II Depression Score 5 - Minimal depression Insomnia Severity Index Insomnia Severity Index 7 [place] Sleepiness Scale Sitting and reading 0 Watching [...]
--- OUTSIDE RECORDS SUMMARY | ~2019-10-27 | XMS | Encounter Summary ---
Demographics + + + | Address | [address] | | | [place] [address] | + + + | Home Phone [...] [place], | | | | | [place] [address] | | + + + + + | Kellen Briones | ECON | [place], [place] | | | | | [address] | | + + + + + Care Team Providers + +------+ + | Care Photographer'S Model Name | Role | Phone | + [...] + | 03/05/ | Telephone | [facility] | Tk Ann | Other (Reschedule | | 2012 | | PHYSIATRY [address] | T[address] | injection) | | | | [address] | [place], [place] | | | | | [place], [place] | [address] | | | | | [address] | | | | | | [phone] | | | +--------+ + + + [...]
--- OUTSIDE RECORDS SUMMARY | ~2019-10-27 | XMS | Encounter Summary ---
Demographics + + + | Address | [address] | | | [place] [address] | + + + | Home Phone [...] [place], | | | | | [place] [address] | | + + + + + | Kellen Briones | ECON | [place] | | | | | [address] | | + + + + + Care Team Providers + +------+ + | Care Stewardesses Teacher Name | Role | Phone | [...] lumbar (Primary Dx); | | | | [place], [place] | [place] [address] | Lumbar | | | | [address] | [phone] | radiculopathy | | | | [phone] | | | +--------+ + + + [...] filedocumented as of this encounter Results XR Lumbar [...]
--- OUTSIDE RECORDS SUMMARY | ~2019-10-27 | XMS | Encounter Summary ---
Demographics + + + | Address | [address] | | | [place] [address] | + + + | Home Phone [...] [place], | | | | | [place] [address] | | + + + + + | Kellen Briones | ECON | [place], [place] | | | | | [address] | | + + + + + Care Team Providers + +------+ + | Care Dealer Development Manager Name | Role | Phone [...] + + | 02/14/ | Telephone | [facility] | Irving Becerril, | Letter | | 2015 | | NEUROSURGERY [address] | DO [address] | | | | | [address] | [address] [place], [place] | | | | | [place], [place] | [address] | | | | | [address] | | | | | | [phone] | | | +--------+ + + + [...]
--- OUTSIDE RECORDS SUMMARY | ~2019-10-27 | XMS | Encounter Summary ---
Demographics + + + | Address | [address] | | | [place] [address] | + + + | Home Phone [...] [place], | | | | | [place] [address] | | + + + + + | Kellen Briones | ECON | [place], [place] | | | | | [address] | | + + + + + Care Team Providers + +------+ + | Care Police Patrol Officer Name | Role | Phone | [...] | [facility] | Irving Becerril, | Medication Refill | | 2015 | | NEUROSURGERY [address] | DO [address] | | | | | [address] | [address] [place], [place] | | | | | [place], [place] | [id number] | | | | | [address] | | | | | | [phone] | | | +--------+--------+ + + + [...]
--- OUTSIDE RECORDS SUMMARY | ~2019-10-27 | XMS | Encounter Summary ---
Demographics + + + | Address | [address] | | | [place] [address] | + + + | Home Phone | | + + + | Preferred Language | Unknown | + + + | Marital Status | | + + + | Christian Affiliation | 1041 | + + + [...] [place], | | | | | [place] [address] | | + + + + + | Kellen Briones | ECON | [place] | | | | | [address] | | + + + + + Care Team Providers + +------+ + | Care General Activities Therapist Name | Role | Phone | [...] + + | 06/15/ | Telephone | [facility] | Monster White MD | Surgery Appointment | | 2020 | | [facility] | [address] | (schedule surgery) | | | | ORTHOPEDIC SPINE | [address] [place], [place] | | | | | [address] | [address] | | | | | [place] | | | | | | [address] | | | | | | [phone] | | | +--------+ + + + [...]
--- OUTSIDE RECORDS SUMMARY | ~2019-10-27 | XMS | Encounter Summary ---
Demographics + + + | Address | [address] | | | [place] [address] | + + + | Home Phone [...] [place], | | | | | [place] [address] | | + + + + + | Kellen Briones | ECON | [place], [place] | | | | | [address] | | + + + + + Care Team Providers + +------+ + | Care Boom Storage Name | Role | Phone | + [...] | Lumbar | [place], | [address] | | | | | radiculopath | Tk Monreal MD | [place], | | | | | y | [address] | [place] | | | | | Procedures | [place] | [address] | | | | | [place] | [place], [place] | Phone: | | | | | ANES/STEROID | [address] | [phone] | | | | | FORAMEN | Phone: | Fax: | | | | | LUMBAR/SACRA | [phone] | [phone] | | | | | L [address] IMG | Fax: | | | | | | GUIDE ,1 | [phone] | | | | | | LEVEL [...] + | 08/21/ | Hospital | [facility] | Mono Diaz, | Lumbar radiculopathy | | 2019 | Encounter | MED CTR XRAY [address] | PA-C [address] | | | | | [place] | [address] [place] | | | | | [place] [address] | [place] [address] | | | | | [phone] | [phone] | | | | | | | | | | | | It Help Desk AnalystJordan | | | | | | [place] [...] 2:50 | | | | | ONCE, [facility] 08/21/18 at 1445, For 1 | | [...] | | | | | Other, ONCE, [facility] 08/21/18 at 1445, | | PM PDT | | | | | For 1 dose | | | | | | + +-------+ +-------+---+---+ +---+---+ | | | +---+---+ + +-------+ +-------+---+---+ | lidocaine (PF) 1% injection 2 | Given | 08/22/19 | 2 mLs | | | | mL 2 mL, Other, ONCE, [facility] | | 19 2:50 | | | [...] | | (Comment | | Intradermal, ONCE, [facility] 08/21/18 at | | PM PDT | | | ) | | 1445, For 1 dose | | | | | | + +-------+ +-------+---+ + +---+---+ | | | +---+---+ documented in this encounter"
--- OUTSIDE RECORDS SUMMARY | ~2019-10-27 | XMS | Encounter Summary ---
Demographics + + + | Address | [address] | | | [place] [address] | + + + | Home Phone [...] [place], | | | | | [place] [address] | | + + + + + | Kellen Briones | ECON | [place], [place] | | | | | [address] | | + + + + + Care Team Providers + +------+ + | Care Warehouse Packaging Supervisor Name | Role | Phone | + +------+ + | Anna De Guzman PA-C | PCP | | + +------+ + Encounter Details +--------+ + + + + | Date | Type | Department | Care Team | Description | +--------+ + + + + | 03/07/ | Hospital | [facility] | Irving Becerril, | Stroke of unknown | | 2016 | Encounter | MED CTR XRAY [address] | DO [address] | etiology ([facility]); | | | | [place] | [address] [place], [place] | Cerebrovascular | | | | [place] [address] | [address] | accident (CVA), | | | | [phone] | | unspecified | | | | | Caleb San MD | mechanism (HCC); | | | | | [address] | Lumbar | | | | | [place], [place] | radiculopathy; | | | | | [address] | Cervical stenosis of | | | [...] | | | | | [place] coronary | | | | | | artery of [place] | | | | | | heart without angina | | | | | | pectoris; 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 | | | | | | without complication | | | | | | ([facility]); Essential | | | | | | hypertension; | | | | | | Syncope and | | | | | | collapse; Cancer | | | | | | ([facility]); 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| | hyperlipidemia; ST | | | | | | elevation myocardial | | | | | | infarction (STEMI), | | | | | | unspecified artery | | | | | | ([facility]); | | | | | [...] with | | | | | | pkdfjsqyperhk-Q4-L7 | | | | | | level [...] | | | | | ([facility]); DDD | | | | [...] | | | | | [place] coronary | | | | | | artery of [place] | | | | | | heart [...] with | | | | | | mfgaiujuxgysd-U8-X9 | | | | | | level [...] PA and Lateral Chest COMPARISON: None. | [facility] | | FINDINGS: Sternal wires [...] + | [facility] | [address] [place] [address] | [place] | [phone] | | [facility] | | [address] | | | - IMAGING | | [...] | Coronary artery disease involving [place] coronary artery of [place] heart without | | angina pectoris | + + | Type 1 diabetes mellitus without complication ([facility]) Type I (juvenile type) diabetes | | [...] | Spinal stenosis of lumbar region with nwcyyijrrqiip-C6-Z8 level moderately severe | | Spinal stenosis, [...]
--- OUTSIDE RECORDS SUMMARY | ~2019-10-27 | XMS | Encounter Summary ---
Demographics + + + | Address | [address] | | | [place] [address] | + + + | Home Phone [...] [place], | | | | | [place] [address] | | + + + + + | Kellen Briones | ECON | [place], [place] | | | | | [address] | | + + + + + Care Team Providers + +------+ + | Care Client Relations Specialist Name | Role | Phone | [...] | Lumbar | Zierenberg, | [address] [place] | | | | | radiculopath | Tk Monreal MD | [place], | | | | | y | [address] | [place] | | | | | Procedures | [place] | [address] | | | | | [place] INJECT | [place], [place] | Phone: | | | | | ANES/STEROID | [address] | [phone] | | | | | [place]AM[place] | Phone: | Fax: | | | | | LUMBAR/SACRA | [phone] | [phone] | | | | | L W IMG | Fax: | | | | | | GUIDE ,1 | [phone] | | | | | | LEVEL [place] | | | | | | | [...] + + | 08/21/ | Hospital | [facility] | Mono Diaz, | Lumbar radiculopathy | | 2019 | Encounter | MED CTR XRAY [address] | PA-C [address] | | | | | [place] | [address] [place] | | | | | [place] [address] | [place] [address] | | | | | [phone] | [phone] | | | | | | | | | | | | Dietary Services ManagerJordan | | | | | | [place] [...] 2:50 | | | | | ONCE, [facility] 08/21/18 at 1445, For 1 | | [...] | | | | | Other, ONCE, [facility] 08/21/18 at 1445, | | PM PDT | | | | | For 1 dose | | | | | | + +-------+ +-------+---+---+ +---+---+ | | | +---+---+ + +-------+ +-------+---+---+ | lidocaine (PF) 1% injection 2 | Given | 08/22/19 | 2 mLs | | | | mL 2 mL, Other, ONCE, [facility] | | 19 2:50 | | | [...] | | (Comment | | Intradermal, ONCE, [facility] 08/21/18 at | | PM PDT | | | ) | | 1445, For 1 dose | | | | | | + +-------+ +-------+---+ + +---+---+ | | | +---+---+ documented in this encounter"
--- OUTSIDE RECORDS SUMMARY | ~2019-10-27 | XMS | Encounter Summary ---
Demographics + + + | Address | [address] | | | [place] [address] | + + + | Home Phone [...] [place], | | | | | [place] [address] | | + + + + + | Kellen Briones | ECON | [place], [place] | | | | | [address] | | + + + + + Care Team Providers + +------+ + | Care Soap Chipper Name | Role | Phone | + [...] + + | 10/08/ | Telephone | [facility] | Tk Ann | Other (Schedule | | 2012 | | PHYSIATRY [address] | TMD [address] | injection) | | | | [address] | [place], [place] | | | | | [place], [place] | [address] | | | | | [address] | | | | | | [phone] | | | +--------+ + + + [...]
--- OUTSIDE RECORDS SUMMARY | ~2019-10-27 | XMS | Encounter Summary ---
Demographics + + + | Address | [address] | | | [place] [address] | + + + | Home Phone [...] [place], | | | | | [place] [address] | | + + + + + | Kellen Briones | ECON | [place], [place] | | | | | [address] | | + + + + + Care Team Providers + +------+ + | Care Suction Plate Roller Hand Name | Role | Phone | [...] | Lumbar | Zierenberg, | [address] [place] | | | | | radiculopath | Tk Monreal MD | [place], | | | | | y | [address] | [place] | | | | | Procedures | [place] | [address] | | | | | MD INJECT | [place], [place] | Phone: | | | | | ANES/STEROID | [address] | [phone] | | | | | FORAMEN | Phone: | Fax: | | | | | LUMBAR/SACRA | [phone] | [phone] | | | | | L W IMG | Fax: | | | | | | GUIDE ,1 | [phone] | | | | | | LEVEL [...] + + | 02/24/ | Hospital | [facility] | Mono Diaz, | Lumbar radiculopathy | | 2018 | Encounter | MED CTR XRAY [address] | PA-C [address] | | | | | [place] | [address] [place] | | | | | [place] [address] | [place] [address] | | | | | [phone] | [phone] | | | | | | | | | | | | Barge Captain, [facility] | | | | | | [place] [...]
--- OUTSIDE RECORDS SUMMARY | ~2019-10-27 | XMS | Encounter Summary ---
Demographics + + + | Address | [address] | | | [place] [address] | + + + | Home Phone [...] [place], | | | | | [place] [address] | | + + + + + | Kellen Briones | ECON | [place] | | | | | [address] | | + + + + + Care Team Providers + +------+ + | Care Gas Charger Name | Role | Phone | + +------+ + | Barb Marte | THANG | | + +------+ + Encounter Details +--------+ + + + + | Date | Type | Department | Care Team | Description | +--------+ + + + + | 03/05/ | Hospital | [facility] | Barb Marte PA | Abnormal mammogram | | 2018 | Encounter | MED CTR MAMMOGRAPHY | [address] | | | | | [address] | [address] [place] | | | | | [place] | [address] | | | | | [address] | | | | | | [phone] | [place] | | +--------+ [...]
--- OUTSIDE RECORDS SUMMARY | ~2019-10-27 | XMS | Encounter Summary ---
Demographics + + + | Address | [address] | | | [place] [address] | + + + | Home Phone [...] [place], | | | | | [place] [address] | | + + + + + | Kellen Briones | ECON | [place], [place] | | | | | [address] | | + + + + + Care Team Providers + +------+ + | Care Document Control Manager Name | Role | Phone | [...] SANDRA [address] | FMD [address] [place] | | | | | [address] | [place], [place] | | | | | [place], [place] | [address] | | | | | [address] | [phone] | | | | | [phone] | | | +--------+ + + + [...]
--- OUTSIDE RECORDS SUMMARY | ~2019-10-27 | XMS | Encounter Summary ---
Demographics + + + | Address | [address] | | | [place] [address] | + + + | Home Phone [...] [place], | | | | | [place] [address] | | + + + + + | Kellen Briones | ECON | [place], [place] | | | | | [address] | | + + + + + Care Team Providers + +------+ + | Care Nurse Clinician Name | Role | Phone | [...] W | AYAAN Taylor [address] | side; Facet | | | | [address] | [address] | arthritis of | | | | [place] | [place] [address] | cervical region | | | | [address] | [phone] | (HCC); DDD | | | | [phone] | | (degenerative disc | | | [...]
--- OUTSIDE RECORDS SUMMARY | ~2019-10-27 | XMS | Encounter Summary ---
Demographics + + + | Address | [address] | | | [place] [address] | + + + | Home Phone [...] [place], | | | | | [place] [address] | | + + + + + | Kellen Briones | ECON | [place], [place] | | | | | [address] | | + + + + + Care Team Providers + +------+ + | Care Mold Repairer Name | Role | Phone | [...] | | | DRIVE [address] | [address] | | | | | | D | [place], | | | | | | [place], | [place] [address] | | | | | | [place] [address] | Phone: | | | | | | Phone: | [phone] | | | | | | [phone] | Fax: | | | | | | Fax: | [phone] | | | | | | [phone] | | +--------+ + + + + + Encounter Details +--------+---------+ + + + | Date | Type | Department | Care Team | Description | +--------+---------+ + + + | 09/16/ | Office | [facility] | Bobby Grier | Snoring (Primary | | 2012 | Visit | SLEEP DISORDER [address] | MD [address] | Dx); Chronic | | | | [address] [place] | [address] [place] | narcotic use | | | | [place] [address] | [place] [address] | | | | | [phone] | [phone] | | | | | | | [...] differen t from the original. [facility]ely [facility] [place] [address] Ref: Patrick Gaffney MD CC: Chief Complaint [...] and back pain she was started on [place], baclofen, flexeril, and zanaflex in February of 2012 according to the patient and her daughter (the EMR supports this too). Currently she is on the zanaflex and [place]. She had been started on Celexa in November of 2011 for depression. Wellbutrin was started in July of 2010 after heart surgery. She currently takes 2 [place] tabs tid. She started having spells of [...] of 20-30 minutes. She often takes a [place] at about 8pm and rarely after 10pm. [...] medical history of Coronary artery disease; Diabetes mnuir itus; Hypertension; Stroke; Syncope and collapse; Cancer; Hyperlipidemia; [place] (myocardial inf arction); GERD (gastroesophageal reflux disease); Asthma; Arthritis; Lumbar radiculopathy (); DDD (degenerative disc disease), lumbar (07/23/2012); Spinal stenosis of lumbar re gion with eqnildjpkkleo-H2-D2 level moderately severe (07/23/2012); Facet arthritis of lumbar region-Most severe at L4-L5,L5-S1 (07/23/2012); and Snoring. has past surgical history that includes Coronary artery bypass graft (2009); Hysterectomy, total abdominal (1968); Tonsillectomy and adenoidectomy (1946); Mouth surgery (1957); Carpa l tunnel release (); Reconstruction of Left Thumb (); Mastectomy, radical (1986) ; Breast reconstruction (3565-8433); bone spur left foot (); and Blepharoptosis [...] N/A Years of Education: 14 Occupational History [employer]LECT[employer] Social History Main Topics Smoking status: Never [...] use can actually cause ataxic central sleep it consultant ea. I've discussed this in detail with [...] Insomnia Severity Index Insomnia Severity Index 7 [facility] [place] Sleepiness Scale Sitting and reading 0 Watching [...]
--- OUTSIDE RECORDS SUMMARY | ~2019-10-27 | XMS | Encounter Summary ---
Demographics + + + | Address | [address] | | | [place] [address] | + + + | Home Phone [...] [place], | | | | | [place] [address] | | + + + + + | Kellen Briones | ECON | [place], [place] | | | | | [address] | | + + + + + Care Team Providers + +------+ + | Care Dual Rate Supervisor Name | Role | Phone | [...] + | 08/13/ | Office | [facility] | Patrick Gaffney MD [address] | Decreased | | 2012 | Visit | NEUROLOGY [place] | [address] | [facility] | | | | [address], | [address] [place], | (Primary Dx); Small | | | | [address] [facility] | [place] [address] | vessel disease (HCC) | | | | [place] [address] | [phone] | | | | | [phone] | | | +--------+---------+ + + + [...] office will call her to schedule fol [facility] appointment for one month after EEG [...] She was evaluated by Dr. Longo at [facility]. 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 MRA of the head and neck was unremarkable for large v essel stenosis or occlusion. She also had EEG which showed mild diffuse slowing of the back ground without epileptiform discharges. She was seen by brick and block mason at [facility]. She reported that she had [...] Stroke Syncope and collapse Cancer Breast Hyperlipidemia [place] (myocardial infarction) GERD (gastroesophageal reflux disease) Asthma Arthritis Lumbar radiculopathy 07/23/2012 DDD (degenerative disc disease), lumbar 07/23/2012 Spinal stenosis of lumbar region with mkfvmsgpuwcir-I0-L3 level moderately severe 2012 Facet arthritis of [...] She did have history of starting multiple [employer] depressant medications since last February. These ep [...]
--- OUTSIDE RECORDS SUMMARY | ~2019-10-27 | XMS | Encounter Summary ---
Demographics + + + | Address | [address] | | | [place] [address] | + + + | Home Phone | | + + + | Preferred Language | Unknown | + + + | Marital Status | | + + + | Hindu Affiliation | 1041 | + + + [...] [place], | | | | | [place] [address] | | + + + + + | Kellen Briones | ECON | [place], [place] | | | | | [address] | | + + + + + Care Team Providers + +------+ + | Care Supervisor Residential Name | Role | Phone | + [...] [address] | [address] [place], [place] | (Primary Dx); | | | | [place] | [address] | Cerebrovascular | | | | [address] | | accident (CVA), | | | | [phone] | | unspecified | | | | [...] involving | | | | | | [place] coronary | | | | | | artery of [place] | | | | | | heart without angina | | | | | | pectoris; 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 | | | | | | without complication | | | | | | ([facility]); Essential | | | | | | hypertension, | | | | | | hypertension with | | | | | | unspecified goal; | | | | | | Syncope and | | | | | | collapse; Cancer | | | | | | ([facility]); 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| | hyperlipidemia; ST | | | | | | elevation myocardial | | | | | | infarction (STEMI), | | | | | | unspecified artery | | | | | | ([facility]); | | | | | | [...] with | | | | | | vzyycqxzliezn-T8-O7 | | | | | | level [...] | | | | | ([facility]); DDD | | | | | [...] PA and Lateral Chest COMPARISON: None. | [facility] | | FINDINGS: Sternal wires and [...] + | [facility] | [address] | [place] | [phone] | | [facility] | | [address] | | | - IMAGING | | [...] mL/min/1.73m2 | [facility] | | | GHANAIAN | RATE,ESTIMATED | | MEDICAL | | | | mL/min/1.41a5Qcjh than | | CENTER - | | [...] ST. | [address] | [place], [place] | [phone] | | [facility] | | [address] | | | - LABORATORY | | [...] [address] | [place] | [phone] | | [facility] | | [address] | | | - LABORATORY | | [...] + | [facility] [facility] | [address] | [place] | [phone] | | [facility] | | [address] | | | - LABORATORY | | [...] [address] | [place] | [phone] | | [facility] | | [address] | | | - LABORATORY | | [...] | | | | CYNTHIA KIRBY MD ([id number]) | | | | | | on [...] + + | Coronary artery disease involving [place] coronary artery of [place] heart without | | angina pectoris | [...] | Spinal stenosis of lumbar region with fkloukjuvcwxf-V9-O3 level moderately severe | | Spinal stenosis, [...]
--- OUTSIDE RECORDS SUMMARY | ~2019-10-27 | XMS | Encounter Summary ---
Demographics + + + | Address | [address] | | | [place] [address] | + + + | Home Phone [...] [place], | | | | | [place] [address] | | + + + + + | Kellen Briones | ECON | [place], [place] | | | | | [address] | | + + + + + Care Team Providers + +------+ + | Care Cost Clerk Name | Role | Phone | [...] [address] | [address] [place], [place] | (Primary Dx); Status | | | | [place], [place] | [address] | post cervical | | | | [address] | | spinal fusion | | | | [phone] | | | +--------+ + + + [...] ST. | [address] | [place] | [phone] | | [facility] | | [address] | | | - IMAGING | | | | + + + + + documented in this encounter Visit Diagnoses + + | Diagnosis | + + | Spondylolisthesis of cervical region - Primary Acquired spondylolisthesis | + + | Status post cervical spinal fusion Arthrodesis status | + + documented in this encounter"
--- OUTSIDE RECORDS SUMMARY | ~2019-10-27 | XMS | Encounter Summary ---
Demographics + + + | Address | [address] | | | [place] [address] | + + + | Home Phone [...] [place], | | | | | [place] [address] | | + + + + + | Kellen Briones | ECON | [place] | | | | | [address] | | + + + + + Care Team Providers + +------+ + | Care Crew Boss Name | Role | Phone | [...] + + | 04/02/ | Office | [facility] | Agata Tinajero DO | Atherosclerosis of | | 2019 | Visit | CARDIOLOGY [place] | [address] | [place] coronary | | | | [address] | [address] [place], [place] | artery of [place] | | | | [address] | [id number] | heart without angina | | | | [place] | | pectoris (Primary | | | | [address] | | Dx); Essential | | | | [phone] | | hypertension; | | | | [...] Agata Tinajero, - 04/02/2019 2:00 PM PDT [facility] Cardiology Cardiology Follow Up Note Reason for Consultation: Chest pain Requesting Physician: Barb Marte History Obtained From: patient HISTORY OF PRESENT ILLNESS: Cardiac Problem List 1. CAD s/p CABGx4 in [facility] 2009 S/P WEBSTER to LAD, SVG-OM1, OM2, [...] proximal segment and was filling distally via fyne-ze-dnirg collaterals. LEFT VENTRICULOGRAM Left ventriculogram revealed normal left ventricular systolic function with ejection fraction of 60% with severe posterobasal hypokinesis. Carotid US: AAA screening: Lower extremity US: OTHERS: ASSESSMENT & PLAN 1. Pre operative cardiovascular exam 2. CAD s/p CABGx4 in [facility] 2009 S/P WEBSTER to LAD, SVG-OM1, OM2, PDA 2009 3. HTN 4. History CVA 5. HLD 6. DM II 7. Arthritis 8. Asthma 9. Chronic pain 10. DDD 11. GERD 12. History right breast CA s/p mastectomy and chemo - The patient is a 78-year-old female with the above past medical history who presents to [facility] cardiology office for follow up. [...] Diagnosis | + + | Atherosclerosis of [place] coronary artery of [place] heart without angina pectoris - | | Primary | + + | Essential hypertension Unspecified essential hypertension | + + | Cerebrovascular accident (CVA), unspecified mechanism (HCC) | + + | Other hyperlipidemia | + + | H/O CABG (coronary artery bypass graft) Postsurgical aortocoronary bypass status | + + documented in this encounter
--- OUTSIDE RECORDS SUMMARY | ~2019-10-27 | XMS | Encounter Summary ---
Demographics + + + | Address | [address] | | | [place] [address] | + + + | Home Phone [...] [place], | | | | | [place] [address] | | + + + + + | Kellen Briones | ECON | [place], [place] | | | | | [address] | | + + + + + Care Team Providers + +------+ + | Care Player Manager Name | Role | Phone | [...] + + | 02/14/ | Telephone | [facility] | Irving Becerril, | Letter | | 2015 | | NEUROSURGERY [address] | DO [address] | | | | | [address] | [address] [place], [place] | | | | | [place], [place] | [address] | | | | | [address] | | | | | | [phone] | | | +--------+ + + + [...]
--- OUTSIDE RECORDS SUMMARY | ~2019-10-27 | XMS | Encounter Summary ---
Demographics + + + | Address | [address] | | | [place] [address] | + + + | Home Phone [...] [place], | | | | | [place] [address] | | + + + + + | Kellen Briones | ECON | [place] | | | | | [address] | | + + + + + Care Team Providers + +------+ + | Care Lvn Name | Role | Phone | + +------+ + | Barb Marte | THANG | | + +------+ + Encounter Details +--------+ + + + + | Date | Type | Department | Care Team | Description | +--------+ + + + + | 01/03/ | Hospital | [facility] | Barb Marte PA | Visit for screening | | 2018 | Encounter | MED CTR MAMMOGRAPHY | [address] | mammogram | | | | [address] | [address] [place] | | | | | [place], [place] | [address] | | | | | [address] | | | | | | [phone] | | | +--------+ + + + [...]
--- OUTSIDE RECORDS SUMMARY | ~2019-10-27 | XMS | Encounter Summary ---
Demographics + + + | Address | [address] | | | [place] [address] | + + + | Home Phone [...] [place], | | | | | [place] [address] | | + + + + + | Kellen Briones | ECON | [place], [place] | | | | | [address] | | + + + + + Care Team Providers + +------+ + | Care Can Filling Room Sweeper Name | Role | Phone | + [...] pain, | MD [address] | [address] | | | | | bilateral | [address] | [address] [place] | | | | | Procedures | [place], | [place], [place] | | | | | MRI Lumbar | [place] [address] | [address] | | | | | Spine wo | Phone: | Phone: | | | | | Contrast | [phone] | [phone] | | | | | | [phone] Fax: | Fax: | | | | | | | [phone] | | | | | | [phone] | | +--------+--------+ + + + + [...] | | | | | etiology | [address] | [address] | | | | | ([facility]) | [place], | [address] | | | | | | [place] [address] | [place] | | | | | | Phone: | [address] Phone: | | | | | | [phone] | [phone] | | | | | | [phone] Fax: | Fax: | | | | | | | [phone] | | | | | | [phone] | | +--------+ + + + + [...] | | n | spinal canal | [address] | [address] [place] | | | | | | [place], | [place], [place] | | | | | Spondylolist | [place] [address] | [address] Phone: | | | | | hesis of | Phone: | [phone] | | | | | cervical | [phone] | Fax: | | | | | region | [phone] Fax: | [phone] | | | | | Right hip | | | | | | | pain | [phone] | | | | | | Trochanteric [...] + + | 06/04/ | Office | [facility] | Ramon Real | Cervical stenosis of | | 2012 | Visit | NEUROSURGERY [address] | MD Idris [address] | spinal canal | | | | [address] | [place], [place] | (Primary Dx); | | | | [place], [place] | [address] | Spondylolisthesis of | | | | [address] | [phone] | cervical region; | | | | [phone] | | Right hip pain; | | [...] priscilla alicea we obtain the studies from [facility] documented in this encounter Progress Notes Ramon Real MD - 06/04/2012 3:46 PM PSTFormatting of this note might be differen t from the original. Ramon Real MD [address] [facility] [address] [place], [place] [address] FAX: NEUROSURGERY HISTORY AND PHYSICAL EXAMINATION CHIEF [...] evaluati on in the emergency department at [facility]. Apparently a CT scan not available to [...] Stroke Syncope and collapse Cancer Breast Hyperlipidemia [place] (myocardial infarction) GERD (gastroesophageal reflux [...] Intrinsics 5 5 Ulnar Intrinsics 5 5 Helpdesk Specialist Strength 4 (35#) 4+ (40#) Hip Flexion [...] Stroke Syncope and collapse Cancer Breast Hyperlipidemia [place] (myocardial infarction) GERD (gastroesophageal reflux [...] imagi ng studies which were obtained at [facility] to facilitate that. Once we have his [...]
--- OUTSIDE RECORDS SUMMARY | ~2019-10-27 | XMS | Encounter Summary ---
Demographics + + + | Address | [address] | | | [place] [address] | + + + | Home Phone [...] [place], | | | | | [place] [address] | | + + + + + | Kellen Briones | ECON | [place], [place] | | | | | [address] | | + + + + + Care Team Providers + +------+ + | Care Corporate Legal Secretary Name | Role | Phone | [...] + + | 07/28/ | Telephone | [facility] | Patrick Gaffney MD 1100 | Records Request | | 2012 | | NEUROLOGY [place] | [facility] | | | | | [address] [facility], | BRAD D JIGNA | | | | | [place] [address] [place] [address] | [place] [address] | | | | | [place] [address] | [phone] | | | | | [phone] | | | +--------+ + + + [...]
--- OUTSIDE RECORDS SUMMARY | ~2019-10-27 | XMS | Encounter Summary ---
Demographics + + + | Address | [address] | | | [place] [address] | + + + | Home Phone | | + + + | Preferred Language | Unknown | + + + | Marital Status | Unknown | + + + | Amish Affiliation | Unknown | + + + | Race | Unknown | + + + | Ethnic Group | Unknown | + + + Author + + + | Author | [facility] | + + + | Organization | [facility] | + + + | Address | Unknown | + + + | Phone | Unavailable | + + + Care Team Providers + +------+ + | Care Bench Assembler Electrical Name | Role | Phone | + [...] [address] | | | | | | [place], [place] | | | | | | [address] | | | +--------+ + + + [...]
--- OUTSIDE RECORDS SUMMARY | ~2019-10-27 | XMS | Encounter Summary ---
Demographics + + + | Address | [address] | | | [place] [address] | + + + | Home Phone [...] [place], | | | | | [place] [address] | | + + + + + | Kellen Briones | ECON | [place], [place] | | | | | [address] | | + + + + + Care Team Providers + +------+ + | Care Postmaster Relief Name | Role | Phone | + [...] | | | [place] [place] | [place] [address] | cervical region | | | | [address] | [phone] | (HCC); DDD | | | | [phone] | | (degenerative disc | | | [...]
--- OUTSIDE RECORDS SUMMARY | ~2019-10-27 | XMS | Encounter Summary ---
Demographics + + + | Address | [address] | | | [place] [address] | + + + | Home Phone [...] [place], | | | | | [place] [address] | | + + + + + | Kellen Briones | ECON | [place], [place] | | | | | [address] | | + + + + + Care Team Providers + +------+ + | Care Seasoner Name | Role | Phone | + [...] [address] | [address] [place], [place] | (Primary Dx); | | | | [place] | [address] | Cerebrovascular | | | | [address] | | accident (CVA), | | | | [phone] | | unspecified | | | | [...] involving | | | | | | [place] coronary | | | | | | artery of [place] | | | | | | heart without angina | | | | | | pectoris; 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 | | | | | | without complication | | | | | | ([facility]); Essential | | | | | | hypertension, | | | | | | hypertension with | | | | | | unspecified goal; | | | | | | Syncope and | | | | | | collapse; Cancer | | | | | | ([facility]); 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| | hyperlipidemia; ST | | | | | | elevation myocardial | | | | | | infarction (STEMI), | | | | | | unspecified artery | | | | | | ([facility]); | | | | | | [...] with | | | | | | dhtfftfzuoqxd-V2-T5 | | | | | | level [...] | | | | | | ([facility]); DDD | | | | | [...] PA and Lateral Chest COMPARISON: None. | [facility] | | FINDINGS: Sternal wires [...] + | [facility] | [address] | [place] | [phone] | | [facility] | | [address] | | | - IMAGING | | [...] mL/min/1.73m2 | [facility] | | | [facility] | RATE,ESTIMATED | | MEDICAL | | | | mL/min/1.21x1Zlib than | | CENTER - | | [...] ST. | [address] | [place], [place] | [phone] | | [facility] | | [address] | | | - LABORATORY | | [...] [address] | [place] | [phone] | | [facility] | | [address] | | | - LABORATORY | | [...] + | [facility] | [address] | [place] | [phone] | | [facility] | | [address] | | | - LABORATORY | | [...] 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
--- OUTSIDE RECORDS SUMMARY | ~2019-10-27 | XMS | Encounter Summary ---
Demographics + + + | Address | [address] | | | [place] [address] | + + + | Home Phone [...] [place], | | | | | [place] [address] | | + + + + + | Kellen Briones | ECON | [place], [place] | | | | | [address] | | + + + + + Care Team Providers + +------+ + | Care Intelligence Support Officer Name | Role | Phone [...] | Cervical | [place], | [address] | | | | | spondylosis | Tk Monreal MD | [place], | | | | | Procedures | [address] | [place] | | | | | ID INJ | [place] | [address] | | | | | DX/THER AGNT | [facility] [place] | Phone: | | | | | [place] | [address] | [phone] | | | | | [place], | Phone: | Fax: | | | | | | [phone] | [phone] | | | | | CERV/THORAC, | Fax: | | | | | | 1ST LEVEL | [phone] | | | | | | ID INJ | | | | | | | DX/THER AGNT | | | | | | | [place] | | | | | | | [place], | | | | | | | | | | | | | | CERV/THORAC, | | | | | | | 2ND LEVEL | | | | | | | ID INJ | | | | | | [...] + + | 03/08/ | Hospital | [facility] | [place], | Neck pain on right | | 2015 | Encounter | MED CTR XRAY [address] | [place] [address] | side; DDD | | | | [address] [place] | [facility] [address] | (degenerative disc | | | | [place] [address] | [place] [address] | disease), cervical; | | | | [phone] | [phone] | Facet arthritis of | | | | | | cervical region | | | | | Lodging Facilities ManagerJordan | | | | | | [place] | | +--------+ + + + + [...] 721.0 Clementine Winchester presents to the | [facility] | | fluoroscopy suite for fluoroscopically-guided right C3-C4, C4-C5 and | [facility] | | C5-C6 facet injections as [...] ST. | [address] | [place] | [phone] | | [facility] | | [address] | | | - IMAGING | | [...]
--- OUTSIDE RECORDS SUMMARY | ~2019-10-27 | XMS | Encounter Summary ---
Demographics + + + | Address | [address] | | | [place] [address] | + + + | Home Phone [...] [place], | | | | | [place] [address] | | + + + + + | Kellen Briones | ECON | [place], [place] | | | | | [address] | | + + + + + Care Team Providers + +------+ + | Care Production Checker Name | Role | Phone | [...] + + | 08/14/ | Telephone | [facility] | Patrick Gaffney MD 1100 | Other | | 2012 | | NEUROLOGY [place]OOKS | [facility] | | | | | [address] [facility], | [address] [place], | | | | | [address] [facility] | [place] [address] | | | | | [place] [address] | [phone] | | | | | [phone] | | | +--------+ + + + [...]
--- OUTSIDE RECORDS SUMMARY | ~2019-10-27 | XMS | Encounter Summary ---
Demographics + + + | Address | [address] | | | [place] [address] | + + + | Home Phone [...] | + + + + + | Luyc Winchester | ECON | [place], | | | | | [place] [address] | | + + + + + | Kellen Briones | ECON | [place], [place] | | | | | [address] | | + + + + + Care Team Providers + +------+ + | Care Gang Mower Operator Name | Role | Phone | [...] + | 06/18/ | Refill | [facility] | Irving Becerril, | Medication Refill | | 2016 | | NEUROSURGERY [address] | DO [address] | | | | | [address] [facility] [address] | [address] [place], [place] | | | | | [place], [place] | [id number] | | | | | [address] | | | | | | [phone] | | | +--------+--------+ + + + [...]
--- OUTSIDE RECORDS SUMMARY | ~2019-10-27 | XMS | Encounter Summary ---
Demographics + + + | Address | [address] | | | [place] [address] | + + + | Home Phone [...] [place], | | | | | [place] [address] | | + + + + + | Kellen Briones | ECON | [place] | | | | | [address] | | + + + + + Care Team Providers + +------+ + | Care Cloth Shrinking Machine Operator Helper Name | Role | Phone [...] | | | | | [address] [facility] | [place] [address] | | | | | [place] [address] | | | | | | [phone] | | | +--------+ + + + [...]
--- OUTSIDE RECORDS SUMMARY | ~2019-10-27 | XMS | Encounter Summary ---
Demographics + + + | Address | [address] | | | [place] [address] | + + + | Home Phone [...] [place], | | | | | [place] [address] | | + + + + + | Kellen Briones | ECON | [place] | | | | | [address] | | + + + + + Care Team Providers + +------+ + | Care Delinquency Prevention Officer Name | Role | Phone | [...] | | | [address] | Way [place], [place] | | | | | [place], [place] | [address] | | | | | [address] | | | | | | [phone] | | | +--------+ + + + [...] | maxP.57 mmHg TR Vmax: 2.89 m/s Factory Laborer: | | | Authenticated by: BUCK SOTO [...] cmLVPWd: 1.17 | | cmLVOT Area: 3.02 ju8NTIM Diam: 1.96 cm%FS: 38.74 %EF(Teich): 69.95 %ESV(Teich): [...] (A-L): 22.04 ml/m2LAAs A2C: | | 13.50 [id number] A-L A2C: 36.98 mlLALs A2C: 4.18 cmLAAs A4C: 13.35 sn0VCQWM A-L A4C: | | 31.07 mlLALs A4C: 4.87 cmRAAs: 22.15 ny1YFCEQ A-L: 78.87 mlRAESV MOD: 76.76 | | mlRALs: 5.28 cmTAPSE: 1.36 cmAV maxP.05 mmHgAV meanP.09 mmHgAV Vmax: | | 1.50 m/Shreyas Vmean: 1.08 m/Shreyas VTI: 30.75 cmAVA Vmax: 2.05 cm2AVA (VTI): 2.07 | | lc3HMWG Vmax: 0.00 cm2/m2AVAI (VTI): 0.00 cm2/m2LVOT maxP.16 mmHgLVOT meanPG: | | 2.03 mmHgLVSI Dopp: 38.41 ml/m2LVSV Dopp: 63.76 mlLVOT Vmax: 1.02 m/sLVOT Vmean: | | 0.65 m/sLVOT VTI: 21.09 cmMV A Obed: 1.25 m/sMV DecT: 137.22 msMV E Obed: 1.08 | | m/sMV E/A Ratio: 0.86MV PHT: 39.79 msMVA By PHT: 5.52 gn4Usflzg e': 0.03 | | m/sSeptal E/e': 33.19Lateral e': 0.05 m/sLateral E/e': 19.41RAP: 10 mmHgRVSP: | | 43.57 mmHgTR maxP.57 mmHgTR Vmax: 2.89 m/s Factory Laborer:Authenticated by: | | ELIZABETH ROYeport Date/Time: 08-20-2017 [...] |TR Vmax: 2.89 m/s | | | |Factory Laborer: | |Authenticated by: BUCK SOTO MD | [...]
--- OUTSIDE RECORDS SUMMARY | ~2019-10-27 | XMS | Encounter Summary ---
Demographics + + + | Address | [address] | | | [place] [address] | + + + | Home Phone [...] [place], | | | | | [place] [address] | | + + + + + | Kellen Briones | ECON | [place] | | | | | [address] | | + + + + + Care Team Providers + +------+ + | Care Pipe Cutter Name | Role | Phone | + +------+ + | Barb Marte | THANG | | + +------+ + Encounter Details +--------+ + + + + | Date | Type | Department | Care Team | Description | +--------+ + + + + | 01/31/ | Hospital | [facility] | Judson Palacios DO | | | 2018 - | Encounter | [facility] | [address] | | | | | CARE FLOOR [address] | [place] [address] | | | 02/05/ | | [address] | [phone] | | | 2017 | | [place], [place] | | | | | | [address] | | | | | | [phone] | | | +--------+ + + + [...] Service: Hospitalist Author Type: Physician Filed: 02/06/18 9756 Date of Service: 02/05/181509 Status: Signed Drafter Tool Design: Faisal Briceno MD (Physician) [facility] Service: Hospitalist Discharge Summary Date of Admission: 01/31/2018 Date of Discharge: 02/05/2018, 4 PM Discharge Provider: FAISLA BRICENO MD Treatment Team: Consulting Physician: Patrick [...] confu aura. She was initially admitted to [facility] from 01/16/2018 till 01/28/2018 d ue to suspicion of acute left MCA stroke. Work up there with MRI was negative while Carotid FDopplers showed less than 50 % stenosis. She was subsequently discharged home but she was r eadmitted due to increasing confusion and mild renal failure with creatinine 1.26. She was e ventually transferred to [facility] for further management. She did not have [...] No discharge procedures on file. Follow up: [facility] Schedule an appointment as soon [...] Author: JASON Montaño Service: (none) Author Type: Resident Care Technician Filed: 02/05/181418 Date of Service: 02/05/181417 Status: Signed Drafter Tool Design: JASON Montaño (Resident Care Technician) Pt's daughter is Lucy and can be reached at: [phone]; [phone] JASON Montaño onver aura Transaction, Provider Unknown - 02/05/2018 2:17 PM PDT Case Management by JASON Montaño at 02/05/181416 Author: JASON Montaño Service: (none) Author Type: Resident Care Technician Filed: 02/05/181416 Date of Service: 02/05/181416 Status: Signed Drafter Tool Design: JASON Montaño (Resident Care Technician) Disposition: Home to [place] Transportation: Daughter Patient and family in agreement with discharge plan Medicare important message (Given or N/A): Given- signed and placed in chart JASON Montaño onver aura Transaction, Provider Unknown - 02/05/2018 6:59 AM PDT Nurse Progress Note by Nila Gonzalez RN at 02/05/18658 Author: Nila Gonzalez RN Service: (none) Author Type: Registered Nurse Filed: 02/05/18701 Date of Service: 02/05/18658 Status: Signed Drafter Tool Design: Nila Gonzalez RN (Registered Nurse) End of shift review completed by this RN. Nila Gonzalez RN onver aura Transaction, Provider Unknown - 02/05/2018 6:44 AM PDT Nurse Progress Note by Vonnie Nolasco RN at 02/05/18643 Author: Vonnie Nolasco RN Service: (none) Author Type: Registered Nurse Filed: 02/05/18647 Date of Service: 02/05/18643 Status: Signed Drafter Tool Design: Vonnie Nolasco RN (Registered Nurse) Patient A/OX4, [...] 02/05/18226 Date of Service: 02/05/18224 Status: Signed Drafter Tool Design: Vonnie Nolasco RN (Registered Nurse) IV occluded, [...] 02/04/181849 Date of Service: 02/04/181838 Status: Signed Drafter Tool Design: Claribel Kerr RN (Registered Nurse) Patient afebrile, [...] 02/04/181954 Date of Service: 02/04/181629 Status: Signed Drafter Tool Design: Margo Phillips PT (Physical Therapist) PHYSICAL THERAPY TREATMENT NOTE PT Received On: 02/04/18 Reason for Treatment: Deconditioning Requires PT Follow Up: Yes Follow up PT Only?: No Focus for Next Treatment: Stair Training, Family Training/Education (see comment), Patient Education (see comment) Assistance Required: 1 person Headend Technician Needed: No Recommendations: Home Assist, Prior Setting, Acute ST, Acute OT, OP PT (resume previous OPP T) Equipment Recommended: (none, has SPC and 4ww at baseline) Barriers to Discharge: Cognitive Deficits Impacting Functional Gilchrist, Physical Defic its Impacting Functional Gilchrist, Self-care Deficits Impacting Functional Gilchrist Recommendation Comments: Limitation for ongoing mobility assessment and stair negotiation t joslyn's date 07/05 nausea. Pt requires further mobility assessment to maximize safe d/c plan. A nticipate home with daughter with 24/12 assist and resume OPPT for balance deficits. Plan Treatment/Interventions: Continue per Primary PT POC Progress: Progressing toward goals PT Frequency: 5-7x/wk, Once per day Summary Comments: Pt received finishing shower with [employer]VIEW [employer]PR[employer]ISER, agreeable to PT intervention with emphasis for [...] Date of Service: 02/04/18 1615 Status: Signed Drafter Tool Design: Tala Muro RD (Registered Dietitian) 02/04/18 1537 [...] Physical Findings Digestive System (Mouth to Rectum) WAITER/WAITRESS following. Pt reports she doesn't like the [...] Estimated Energy Needs Total Energy Estimated Needs 9542-7783 kcal/day Method for Estimating Needs 25-30 kcal/kg based on adj BW of 55.6 kg Estimated Protein Needs Total Protein Estimated Needs 67-83 g/day Method for Estimating Needs 1.2-1.5 g/kg based on adj BW of 55.6 kg Recommendations Recommended energy needs Continue diet per WAITER/WAITRESS. Send Boost Pudding TID with meals. Encourag [...] Progress Note by EARNEST Francois-S at 02/04/18 9026 Author: EARNEST Francois-S Service: (none) Author Type: Speech Therapist Filed: 02/04/18 1633 Date of Service: 02/04/18 1416 Status: Attested Drafter Tool Design: EARNEST Francois-S (Speech Therapist) Cosigner: Desi Leary MS [facility]-WAITER/WAITRESS at 02/04/18 1516 Attestation signed by Desi Leary MS CCC-WAITER/WAITRESS at 02/04/18 1516 Student therapist educationally participated [...] miguel student's role in care. BEDSIDE SWALLOW WAITER/WAITRESS Last Visit WAITER/WAITRESS Received On: 02/04/18 Requires WAITER/WAITRESS Follow Up: Yes Recommendations Liquids Consistency Recommendations: Hoehne thick (Ok for thins between meals) Diet [...] are progressing unless otherwise indicated. Dysphagia Goals Coal Sampler Goals: Advanced diet Pt will advanced diet [...] evidence of learning [] Refused Tonya Grullon, WAITER/WAITRESS-S 02/04/2018 3:10 PM Faisal Muse MD - 02/04/2018 11:34 AM PDTFormatting of this note might be different from yadi thibodeaux original. Progress Notes by Fasial Briceno MD at 02/04/18 1188 Author: Faisal Briceno MD Service: Hospitalist Author Type: Physician Filed: 02/04/18 154 Date of Service: 02/04/18 5964 Status: Signed Drafter Tool Design: Faisal Briceno MD (Physician) [facility] Service: Hospitalist Progress Note Clementine Hand Janymerlyn 77 y.o. [phone] [id number] female PER PT NONE (Inactive) Hospital Day: LOS: 4 days SUBJECTIVE Patient Summary: Patient is a 77 year old female with past medical history of Stroke, CAD, S/P CABG, DM Type II, Chronic Back Pain on Opioids who was admitted due to mental status changes and confusio n. She was initially admitted to [facility] from 01/16/2018 till 01/28/2018 due to suspicion of acute left MCA stroke. Work up there with MRI was negative while Carotid FDo pplers showed less than 50 % stenosis. She was subsequently discharged home but she was read mitted due to increasing confusion and mild renal failure with creatinine 1.26. She was even tually transferred to [facility] for further management. She did not have [...] Secondary to dehydration and confusion. [facility], appreciate their help. DVT prophylaxis with [...] 02/04/18731 Date of Service: 02/04/18731 Status: Signed Drafter Tool Design: Thais Castellon RN (Registered Nurse) Pt had [...] 02/03/181705 Date of Service: 02/03/181701 Status: Signed Drafter Tool Design: Thais Antunez RN (Registered Nurse) Pt alert [...] Date of Service: 02/03/18 1051 Status: Addendum Drafter Tool Design: Sumit Alvarenga MD (Physician) Related Notes: Original Note by Sumit Alvarenga MD (Physician) filed at 02/03/18 1122 [facility] Service: Hospitalist Progress Note Hospital Day: LOS: 3 days Post-Op Day: * No surgery found * SUBJECTIVE Patient Summary: admission H and P Dr. Palacios:"transferred from [facility] in [place] to [facility] today for ongoing confusion of unclear etiology. Originally hospi talized at [facility] 01/26-01/28 due to confusion, aphasia, suspected CVA. Workup included neg MRI, US carotids showing 50% stenosis, unremarkable echo and telemetry. She was evaluate d by PHYSICAL THERAPY/OT/WAITER/WAITRESS and DC'd home. She reportedly was alert, [...] but this could not be done at [facility]. She was accepted by Dr Victor but [...] dependent chronic back pain, originally hospitalized at [facility] A ugust to the due to suspected left MCA stroke, apparent workup included a negative M RI, ultrasound carotid showed less than 50 percent stenosis, she was subsequently discharged home. She then returned back to [facility] on the evening of January 30 with increased co nfusion, according to notes hyperreflexia, increased renal failure with creatinine 1.26, sh e was hydrated improved renal function, due to ongoing symptoms [facility] requested zamorano sfer to our facility for [...] with patient's daughter over the phone (Leighton [phone]), she is hopeful that she can return [...] able to tell me she is at [facility], able to tell me she lives in [place] on, was unsure of the month and date , Cooperative, calm HENT: Mouth/Throat: No oropharyngeal exudate. 3 mm pupils bilateral, reactive Eyes: Oral mucosa moist Neck: Neck seems supple Cardiovascular: Normal rate. Pulmonary/Chest: Effort normal. Abdomina/Gl: Soft. Bowel sounds are normal. Neurological: She is alert. No cranial nerve deficit. Country Printer strength equal No pronation drift Motor seems [...] 02/03/18605 Date of Service: 02/02/182212 Status: Signed Drafter Tool Design: Jessy Jeter RN (Registered Nurse) Alert and [...] 02/02/182007 Date of Service: 02/02/182006 Status: Signed Drafter Tool Design: Minal Clarke RN (Registered Nurse) BPs remained [...] Author: Isacc Vail Service: (none) Author Type: Cleaner Signs Filed: 02/02/18 1618 Date of Service: 02/02/18 1554 Status: Signed Drafter Tool Design: Isacc Vail (Cleaner Signs) Per Distress Referral. Pt appears calm in [...] Date of Service: 02/02/18 1033 Status: Signed Drafter Tool Design: Jonathan Montes RN (Registered Nurse) 02/02/18 1024 Discharge Planning Evaluation Admitting Diagnosis Acute Metabolic encephalopathy Readmission No Living Arrangements Children (Pts daughter lives with her Lucy [phone]) Support Systems Children Type of Residence Private residence House type House-1 story Steps to enter 5 Independent with ADL's Yes Independent with Mobility Yes Home Care Services No Caregiver after Discharge No Mental Status Oriented Prior functional status independent Power of Associate Doctor No Anticipated Discharge Plan Post Acute Care [...] y.o., female from home with keely Ayala [phone]. Daughter will transport pt home when medically stable. Pt uses a 4ww at home when needed, Home o2 thru [employer] at 2L, and no other DME or blood thinners. Patient's PCP is:[facility] Patient's insurance:Medicare/[employer] Coverage concerns: no concerns Medication coverage/concerns: no [...] 02/02/1855 Date of Service: 02/02/18825 Status: Signed Drafter Tool Design: Sumit Alvarenga MD (Physician) [facility] Service: Hospitalist Progress Note Hospital Day: LOS: 2 days Post-Op Day: * No surgery found * SUBJECTIVE Patient Summary: admission H and P Dr. Palacios:"transferred from [facility] in [place] to [facility] today for ongoing confusion of unclear etiology. Originally hospi talized at [facility] 01/26-01/28 due to confusion, aphasia, suspected CVA. Workup included neg MRI, US carotids showing 50% stenosis, unremarkable echo and telemetry. She was evaluate d by PHYSICAL THERAPY/OT/WAITER/WAITRESS and DC'd home. She reportedly was alert, [...] but this could not be done at [facility]. She was accepted by Dr Victor but [...] dependent chronic back pain, originally hospitalized at [facility] A ugust to the due to suspected left MCA stroke, apparent workup included a negative M RI, ultrasound carotid showed less than 50 percent stenosis, she was subsequently discharged home. She then returned back to [facility] on the evening of January 30 with increased co nfusion, according to notes hyperreflexia, increase her renal failure with creatinine 1.26, she was hydrated improved renal function, due to ongoing symptoms [facility] requested josué mcpherson to our facility for [...] able tell she lives i [facility] though unable to give me full address , Cooperative, calm HENT: Mouth/Throat: No oropharyngeal exudate. 3 mm pupils bilateral, reactive Eyes: Oral mucosa moist Neck: Neck seems supple Cardiovascular: Normal rate. Pulmonary/Chest: Effort normal. Abdomina/Gl: Soft. Bowel sounds are normal. Neurological: She is alert. No cranial nerve deficit. Country Printer strength equal No pronation drift Motor seems [...] 0636 Date of Service: 02/02/18214 Status: Signed Drafter Tool Design: Jessy Jeter RN (Registered Nurse) Patient was [...] Note by Jina Nation RN at 02/01/18 1104 Author: Jina Nation RN Service: (none) Author Type: Registered Nurse Filed: 02/01/18 190 Date of Service: 02/01/18 1841 Status: Signed Drafter Tool Design: Jina Nation RN (Registered Nurse) Patient has [...] complete. Jina Nation RN Idalia Darby MS CCC-WAITER/WAITRESS - 02/01/2018 9:40 AM PDTFormatting of this note might be different fr om the original. Therapy Progress Note by Idalia Katz MS CCC-WAITER/WAITRESS at 02/01/18 09 Author: Idalia Katz MS CCC-WAITER/WAITRESS Service: (none) Author Type: Speech and Language Patho logist Filed: 02/01/18 1001 Date of Service: 02/01/1840 Status: Signed Drafter Tool Design: Idalia Katz MS CCC-WAITER/WAITRESS (Speech and Language Pathologist) BEDSIDE SWALLOW WAITER/WAITRESS Last Visit WAITER/WAITRESS Received On: 02/01/18 Requires WAITER/WAITRESS Follow Up: Yes Recommendations Liquids Consistency Recommendations: Hoehne thick, Sips of thin water ok between [...] laryngeal elevation upon palpation, Spontaneous double swallow Hoehne Presentation: Cup Oral: Within functional limits Pharyngeal Phase: Delayed swallow initiated, Decreased laryngeal elevation upon palpation, No overt signs or symptoms of aspiration, Spontaneous double swallow Puree Presentation: Spoon Oral Phase: Within functional limits, Increased oral holding time Pharyngeal: No overt signs or symptoms of aspiration, Delayed Swallow, Decreased Laryngeal Elevation, Spontaneous double swallow Goals are progressing unless otherwise indicated. Dysphagia Goals Coal Sampler Goals: Advanced diet Pt will advanced diet [...] Notes by Sumit Alvarenga MD at 02/01/18 4527 Author: Sumit Alvarenga MD Service: Hospitalist Author Type: Physician Filed: 02/01/18 0858 Date of Service: 02/01/18830 Status: Addendum Drafter Tool Design: Sumit Alvarenga MD (Physician) Related Notes: Original Note by Sumit Alvarenga MD (Physician) filed at 02/01/1855 [facility] Service: Hospitalist Progress Note Hospital Day: LOS: 1 day Post-Op Day: * No surgery found * SUBJECTIVE Patient Summary: admission H and P Dr. Palacios:"transferred from [facility] [place] to [facility] today for ongoing confusion of unclear etiology. Originally hospi talized at [facility] 01/26-01/28 due to confusion, aphasia, suspected CVA. Workup included neg MRI, US carotids showing 50% stenosis, unremarkable echo and telemetry. She was evaluate d by PHYSICAL THERAPY/OT/WAITER/WAITRESS and DC'd home. She reportedly was alert, [...] but this could not be done at [facility]. She was accepted by Dr Victor but [...] dependent chronic back pain, originally hospitalized at [facility] A ugust to the due to suspected left MCA stroke, apparent workup included a negative M RI, ultrasound carotid showed less than 50 percent stenosis, she was subsequently discharged home. She then returned back to [facility] on the evening of January 30 with increased co nfusion, according to notes hyperreflexia, increase her renal failure with creatinine 1.26, she was hydrated improved renal function, due to ongoing symptoms [facility] requested josué mcpherson to our facility for [...] She is alert. No cranial nerve deficit. Country Printer strength seems bilateral Rigidity with a passive [...] Note by Jessy Jeter RN at 02/01/18 9346 Author: Jessy Jeter RN Service: (none) Author Type: Registered Nurse Filed: 02/01/18 0652 Date of Service: 02/01/18435 Status: Signed Drafter Tool Design: Jessy Jeter RN (Registered Nurse) Patient alert [...] Note by Jessy Jeter RN at 01/31/18 0417 Author: Jessy Jeter RN Service: (none) Author Type: Registered Nurse Filed: 01/31/182250 Date of Service: 01/31/182245 Status: Signed Drafter Tool Design: Jessy Jeter RN (Registered Nurse) All oral [...] 01/31/181958 Date of Service: 01/31/181956 Status: Signed Drafter Tool Design: Keith Bonds RN (Registered Nurse) Pt brought [...] | | | Fingerstick | performed at [facility];[address] | | LAB | | | | [address];[place] | | | | | | [address] | | | | + + + [...] | | | | | | MDRD IDCO traceable | | | | | | equation.Testing | | | | | | performed at [facility];[address] | | | | | | [facility];[place], [place] | | | | | | [address] | | | | + + + [...] | | | Fingerstick | performed at [facility];[address] | | LAB | | | | [address];[place] | | | | | | [address] | | | | + + + [...] | | | Fingerstick | performed at [facility];[address] | | LAB | | | | [address];[place] | | | | | | [address] | | | | + + + [...] | | | Fingerstick | performed at [facility];[address] | | LAB | | | | [address];[place], [place] | | | | | | [address] | | | | + + + [...] | | | Fingerstick | performed at [facility];[address] | | LAB | | | | [address];[place], [place] | | | | | | [address] | | | | + + + [...] | | | Fingerstick | performed at [facility];[address] | | LAB | | | | [address];[place] | | | | | | [address] | | | | + + + [...] | | | | performed at [facility], [address] | | LAB | | | | [address], | | | | | | [place] [address] | | | | + + + [...] | | | | | | MDRD IDCO traceable | | | | | | equation.Testing | | | | | | performed at [facility], [address] | | | | | | [facility], | | | | | | [place] [address] | | | | + + + [...] | | | Fingerstick | performed at [facility];[address] | | LAB | | | | [address];[place], [place] | | | | | | [address] | | | | + + + [...] | | | Fingerstick | performed at [facility];[address] | | LAB | | | | [address];[place] | | | | | | [address] | | | | + + + [...] | | | Fingerstick | performed at [facility];[address] | | LAB | | | | [address];[place] | | | | | | [address] | | | | + + + [...] | | | Fingerstick | performed at [facility];[address] | | LAB | | | | [address];[place] | | | | | | [address] | | | | + + + [...] | | | | | performed at [facility], [address] | | | | | | [facility], | | | | | | [place] [address] | | | | + + + [...] | | | Fingerstick | performed at [facility];[address] | | LAB | | | | [address];[place] | | | | | | [address] | | | | + + + [...] | | | Fingerstick | performed at [facility];[address] | | LAB | | | | [address];[place], [place] | | | | | | [address] | | | | + + + [...] | | | Fingerstick | performed at [facility];[address] | | LAB | | | | [address];[place], [place] | | | | | | [address] | | | | + + + [...] | | | Fingerstick | performed at [facility];[address] | | LAB | | | | [address];[place], [place] | | | | | | [address] | | | | + + + [...] + + | Hemoglobin | 5.4Comment: The Libyan | 4.0 - 6.0 % | EXTERNAL [...] | | | | | performed at [facility], [address] | | | | | | [facility], | | | | | | [place] [address] | | | | + + + [...] | | | Fingerstick | performed at [facility];[address] | | LAB | | | | [address];[place] | | | | | | [address] | | | | + + + [...] | | | Fingerstick | performed at [facility];[address] | | LAB | | | | [address];[place], [place] | | | | | | [address] | | | | + + + [...] | | | Fingerstick | performed at [facility];[address] | | LAB | | | | [address];[place], [place] | | | | | | [address] | | | | + + + [...] | | | Basophils | performed at [facility], [address] | K/uL | LAB | | | | [address], | | | | | | [place] [address] | | | | + + + [...] EXTERNAL | | | | performed at [facility], [address] | uIU/mL | LAB | | | | [address], | | | | | | [place] [address] | | | | + + + [...] EXTERNAL | | | | performed at [facility];[address] | mmol/L | LAB | | | | [address];[place] | | | | | | [address] | | | | + + + [...] EXTERNAL | | | | performed at [facility];[address] | | LAB | | | | [address];[place] | | | | | | [address] | | | | + + + [...] | | | | | performed at [facility], [address] | | | | | | [facility], | | | | | | [place] [address] | | | | + + + [...]
--- OUTSIDE RECORDS SUMMARY | ~2019-10-27 | XMS | Encounter Summary ---
Demographics + + + | Address | [address] | | | [place] [address] | + + + | Home Phone [...] [place], | | | | | [place] [address] | | + + + + + | Kellen Briones | ECON | [place] | | | | | [address] | | + + + + + Care Team Providers + +------+ + | Care Second Worker Name | Role | Phone | + +------+ + | Barb Marte | PCP | | + +------+ + Encounter Details +--------+ + + + + | Date | Type | Department | Care Team | Description | +--------+ + + + + | 01/31/ | Hospital | [facility] | Conversion | Diagnosis unknown | | 2018 | Encounter | CONVERSION DEP [address] | Transaction, | | | | | [place] | Provider Unknown | | | | | [place] | [phone] | | | | | [address] | | | | | | [phone] | | | +--------+ + + + [...]
--- OUTSIDE RECORDS SUMMARY | ~2019-10-27 | XMS | Encounter Summary ---
Demographics + + + | Address | [address] | | | [place] [address] | + + + | Home Phone [...] [place], [place] | | | | | [address] | | + + + + + Care Team Providers + +------+ + | Care Systems Tester Name | Role | Phone | [...] | Lumbar | Marissa, | [address] | | | | | radiculopath | Tk Monreal MD | [place], | | | | | y | [address] | [place] | | | | | Procedures | [place] | [address] | | | | | [place] INJECT | [facility], [place] | Phone: | | | | | ANES/STEROID | [address] | [phone] | | | | | FORAMEN | Phone: | Fax: | | | | | LUMBAR/SACRA | [phone] | [phone] | | | | | L W IMG | Fax: | | | | | | GUIDE ,1 | [phone] | | | | | | LEVEL [place] | | | | | | | [...] + + | 11/15/ | Hospital | [facility] | [place], | Spondylolisthesis of | | 2015 | Encounter | MED CTR XRAY [address] | AYAAN Taylor [address] | lumbar region; | | | | [address] [place] | [facility] [address] | Lumbar | | | | [place] [address] | [place] [address] | radiculopathy; | | | | [phone] | [phone] | Spinal stenosis of | | | | | | lumbar region with | | | | | Chemical Equipment Sales Engineer [facility] | ocobexvcxcnrh-T3-Y7 | | | | | [place] [...] with | | | | | | qwurctsoncvcr-P6-E5 | | | | | | level [...] radiculopathy ICD-10 Code M54.16 Clementine | [facility] | | Lizett Winchester presents to the fluoroscopy suite for [facility] | | fluoroscopically-guided bilateral L5-S1 transforaminal [...] [address] | [place]ylie [place] | [phone] | | [facility] | | [address] | | | - IMAGING | | | | + + + + + documented in this encounter Visit Diagnoses + + | Diagnosis | + + | Spondylolisthesis of lumbar region Acquired spondylolisthesis | + + | Lumbar radiculopathy Thoracic or lumbosacral neuritis or radiculitis, unspecified | + + | Spinal stenosis of lumbar region with ushzugskgqbkx-L3-K8 level moderately severe | | Spinal stenosis, [...]
--- OUTSIDE RECORDS SUMMARY | ~2019-10-27 | XMS | Encounter Summary ---
Demographics + + + | Address | [address] | | | [place] [address] | + + + | Home Phone [...] [place], | | | | | [place] [address] | | + + + + + | Kellen Briones | ECON | [place], [place] | | | | | [address] | | + + + + + Care Team Providers + +------+ + | Care Product Safety Associate Name | Role | Phone | [...] | Lumbosacral | Marissa, | [address] | | | | | spondylosis | Tk Monreal MD | [place], | | | | | without | [address] | [place] | | | | | myelopathy | [place] | [address] | | | | | Procedures | [place], [place] | Phone: | | | | | AL INJ | [address] | [phone] | | | | | DX/THER AGNT | Phone: | Fax: | | | | | PARAVERT | [phone] | [phone] | | | | | FACET JOINT, | Fax: | | | | | | | [phone] | | | | | | CERV/THORAC, | | | | | | | 1ST LEVEL | | | | | | | AL INJ | | | | | | | DX/THER AGNT | | | | | | | PARAVERT | | | | | | | FACET JOINT, | | | | | | | | | | | | | | CERV/THORAC, | | | | | | | 2ND LEVEL | | | | | | | AL INJ | | | | | | [...] | 09/24/ | Hospital | [facility] | Tk Ann | Neck pain on right | | 2013 | Encounter | MED CTR XRAY [address] | T, [address] | side; Facet | | | | [address] [place] | [facility] | arthritis of | | | | [place] [address] | [phone] | cervical region | | | | [phone] | | | | | | | Framing ConsultantJordan | | | | | | marco [...] 09/24/13 Cervical Facet Steroid Injections Diagnosis: | [facility] | | Cervical Spondylosis ICD-9 Code 721.0 Ms. Clementine Winchester | [facility] | | presents to the fluoroscopy suite for fluoroscopically-guided C4-C5, [facility] | | C5-C6 and C6-C7 [...] | + + + + + | [facility] | [address] | [place] | [phone] | | [facility] | | [address] | | | - IMAGING | | [...]
--- OUTSIDE RECORDS SUMMARY | ~2019-10-27 | XMS | Encounter Summary ---
Demographics + + + | Address | [address] | | | [place] [address] | + + + | Home Phone [...] [place], | | | | | [place] [address] | | + + + + + | Kellen Briones | ECON | [place], [place] | | | | | [address] | | + + + + + Care Team Providers + +------+ + | Care Deckhand Name | Role | Phone | + [...] + | 05/31/ | Refill | [facility] | Irving Becerril, | Medication Refill | | 2015 | | NEUROSURGERY [address] | DO [address] | | | | | [address] | [address] [place], [place] | | | | | [place], [place] | [id number] | | | | | [address] | | | | | | [phone] | | | +--------+--------+ + + + [...]
--- OUTSIDE RECORDS SUMMARY | ~2019-10-27 | XMS | Encounter Summary ---
Demographics + + + | Address | [address] | | | [place] [address] | + + + | Home Phone [...] [place], | | | | | [place] [address] | | + + + + + | Kellen Briones | ECON | [place] | | | | | [address] | | + + + + + Care Team Providers + +------+ + | Care Sports Marketing Coordinator Name | Role | Phone [...] | | | [address] | Way [place], [place] | | | | | [place], [place] | [address] | | | | | [address] | | | | | | [phone] | | | +--------+ + + + [...] | maxP.57 mmHg TR Vmax: 2.89 m/s Wet Wheeler: | | | Authenticated by: BUCK SOTO [...] cmLVPWd: 1.17 | | cmLVOT Area: 3.02 [id number] Diam: 1.96 cm%FS: 38.74 %EF(Teich): 69.95 %ESV(Teich): [...] (A-L): 22.04 ml/m2LAAs A2C: | | 13.50 ue1NFAIQ A-L A2C: 36.98 mlLALs A2C: 4.18 cmLAAs A4C: 13.35 hq6VNVQO A-L A4C: | | 31.07 mlLALs A4C: 4.87 cmRAAs: 22.15 ml3JBGCE A-L: 78.87 mlRAESV MOD: 76.76 | | mlRALs: 5.28 cmTAPSE: 1.36 cmAV maxP.05 mmHgAV meanP.09 mmHgAV Vmax: | | 1.50 m/Shreyas Vmean: 1.08 m/Shreyas VTI: 30.75 cmAVA Vmax: 2.05 cm2AVA (VTI): 2.07 | | tn4FIHA Vmax: 0.00 cm2/m2AVAI (VTI): 0.00 cm2/m2LVOT maxP.16 mmHgLVOT meanPG: | | 2.03 mmHgLVSI Dopp: 38.41 ml/m2LVSV Dopp: 63.76 mlLVOT Vmax: 1.02 m/sLVOT Vmean: | | 0.65 m/sLVOT VTI: 21.09 cmMV A Obed: 1.25 m/sMV DecT: 137.22 msMV E Obed: 1.08 | | m/sMV E/A Ratio: 0.86MV PHT: 39.79 msMVA By PHT: 5.52 ag2Juagel e': 0.03 | | m/sSeptal E/e': 33.19Lateral e': 0.05 m/sLateral E/e': 19.41RAP: 10 mmHgRVSP: | | 43.57 mmHgTR maxP.57 mmHgTR Vmax: 2.89 m/s Wet Wheeler:Authenticated by: | | ELIZABETH ROYeport Date/Time: 08-20-2017 [...] |TR Vmax: 2.89 m/s | | | |Wet Wheeler: | |Authenticated by: BUCK SOTO MD | [...]
--- OUTSIDE RECORDS SUMMARY | ~2019-10-27 | XMS | Encounter Summary ---
Demographics + + + | Address | [address] | | | [place] [address] | + + + | Home Phone [...] [place], | | | | | [place] [address] | | + + + + + | Kellen Briones | ECON | [place], [place] | | | | | [address] | | + + + + + Care Team Providers + +------+ + | Care Fishing Tool Technician Oil Well Name | Role | Phone | + [...] | | |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 | [address] | [place] | | | | | claudication | [place], [place] | [address] | | | | | Procedures | [address] | Phone: | | | | | CT Lumbar | Phone: | [phone] | | | | | Spine wo | [phone] | Fax: | | | | | Contrast | Fax: | [phone] | | | | | | [phone] | | +--------+--------+ + + + + Encounter Details +--------+ + + + + | Date | Type | Department | Care Team | Description | +--------+ + + + + | 04/09/ | Hospital | [facility] | Monster White MD | | | 2019 | Encounter | MED CTR [address] | [address] | | | | | [place], | [address] [place] | | | | | [place] [address] | [address] | | | | | [phone] | | | +--------+ + + + [...]
--- OUTSIDE RECORDS SUMMARY | ~2019-10-27 | XMS | Encounter Summary ---
Demographics + + + | Address | [address] | | | [place] [address] | + + + | Home Phone [...] [place], | | | | | [place] [address] | | + + + + + | Kellen Briones | ECON | [place], [place] | | | | | [address] | | + + + + + Care Team Providers + +------+ + | Care Cupola Operator Name | Role | Phone | [...] | Lumbar | [place], | [address] | | | | | radiculopath | Tk Monreal MD | [place], | | | | | y | [address] | [place] | | | | | Procedures | [place] | [address] | | | | | [place] INJECT | [place] | Phone: | | | | | ANES/STEROID | [address] | [phone] | | | | | FORAMEN | Phone: | Fax: | | | | | LUMBAR/SACRA | [phone] | [phone] | | | | | L W IMG | Fax: | | | | | | GUIDE ,1 | [phone] | | | | | | LEVEL [place] | | | | | | [...] + + | 08/21/ | Hospital | [facility] | Mono Diaz, | Lumbar radiculopathy | | 2019 | Encounter | MED CTR XRAY [address] | PA-C [address] | | | | | [place] | [address] [place] | | | | | [place] [address] | [place] [address] | | | | | [phone] | [phone] | | | | | | | | | | | | Fish Worm GrowerJordan | | | | | | [place] [...] 2:50 | | | | | ONCE, [facility] 08/21/18 at 1445, For 1 | | [...] | | | | | Other, ONCE, [facility] 08/21/18 at 1445, | | PM PDT | | | | | For 1 dose | | | | | | + +-------+ +-------+---+---+ +---+---+ | | | +---+---+ + +-------+ +-------+---+---+ | lidocaine (PF) 1% injection 2 | Given | 08/22/19 | 2 mLs | | | | mL 2 mL, Other, ONCE, [facility] | | 19 2:50 | | | [...] | | (Comment | | Intradermal, ONCE, [facility] 08/21/18 at | | PM PDT | | | ) | | 1445, For 1 dose | | | | | | + +-------+ +-------+---+ + +---+---+ | | | +---+---+ documented in this encounter"
--- OUTSIDE RECORDS SUMMARY | ~2019-10-27 | XMS | Encounter Summary ---
Demographics + + + | Address | [address] | | | [place] [address] | + + + | Home Phone [...] [place], | | | | | [place] [address] | | + + + + + | Kellen Briones | ECON | [place] | | | | | [address] | | + + + + + Care Team Providers + +------+ + | Care Line Assembler Name | Role | Phone | + +------+ + | Barb Marte | PCP | | + +------+ + Encounter Details +--------+ + + + + | Date | Type | Department | Care Team | Description | +--------+ + + + + | 01/31/ | Hospital | [facility] GENERIC IP | Conversion | Pain | | 2018 | Encounter | CONVERSION [address] | Transaction, | | | | | [address] | Provider Unknown | | | | | [place], [place] | [phone] | | | | | [address] | | | | | | [phone] | | | +--------+ + + + [...]
--- OUTSIDE RECORDS SUMMARY | ~2019-10-27 | XMS | Encounter Summary ---
Demographics + + + | Address | [address] | | | [place] [address] | + + + | Home Phone [...] [place], | | | | | [place] [address] | | + + + + + | Kellen Briones | ECON | [place] | | | | | [address] | | + + + + + Care Team Providers + +------+ + | Care Sanitation Truck Cleaner Name | Role | Phone | + +------+ + | Barb Marte | PCP | | + +------+ + Encounter Details +--------+ + + + + | Date | Type | Department | Care Team | Description | +--------+ + + + + | 01/31/ | Hospital | [facility] GENERIC IP | Conversion | Diagnosis unknown | | 2018 | Encounter | CONVERSION [address] | Transaction, | | | | | [address] | Provider Unknown | | | | | [place] | [phone] | | | | | [address] | | | | | | [phone] | | | +--------+ + + + [...]
--- OUTSIDE RECORDS SUMMARY | ~2019-10-27 | XMS | Encounter Summary ---
Demographics + + + | Address | [address] | | | [place] [address] | + + + | Home Phone [...] [place], | | | | | [place] [address] | | + + + + + | Kellen Briones | ECON | [place] | | | | | [address] | | + + + + + Care Team Providers + +------+ + | Care Weave Defect Charting Clerk Name | Role | Phone | [...] | | | | | [address] [facility] | [place] [address] | | | | | [place] [address] | | | | | | [phone] | | | +--------+ + + + [...]
--- OUTSIDE RECORDS SUMMARY | ~2019-10-27 | XMS | Encounter Summary ---
Demographics + + + | Address | [address] | | | [place] [address] | + + + | Home Phone | | + + + | Preferred Language | Unknown | + + + | Marital Status | | + + + | Adventist Affiliation | 1041 | + + + | Race | Unknown | + + + | Ethnic Group | Unknown | + + + Author + + + | Author | [facility] | | | and [place] | + + + | Organization | [facility] | | [...] [place], | | | | | [place] [address] | | + + + + + | Kellen Briones | ECON | [place], [place] | | | | | [address] | | + + + + + Care Team Providers + +------+ + | Care Receiving Teller Name | Role | Phone | + [...] | CONVERSION DEP [address] | | Episd ([facility]) | | | | [address] | | | | 07/14/ | | [place] | | | | 2009 | | [address] | | | | | | [phone] | | | +--------+ + + + [...] | + + + | [facility] | | | [facility] [address] | | | , | | | [id number]/RADIOLOGY Patient Name: CLEMENTINE NUNEZ Date of : | | | 1940 Medical Record: [id number] Account: [id number] | | | I/P/ [id number]/ Exam Date/Time: 07/12/2009 | | | 05:00 [...] good position in the SVC. The prior Free[place]-Gideon catheter | | | has been removed. [...] 11:16 P | | | P P SLW/dc/[id number]/ | | | cc: MD ANUJ PERLA MD STEVEN L | | | MD MARYANN | | + + + + + | Procedure Note | + + | Nilay Lawrence - 01/25/2019 5:24 PM PDT | | [facility] | | [facility] [address] | | , | | | | [id number]/RADIOLOGY | | | | Patient Name: CLEMENTINE NUNEZ | | Date of : 1940 | | Medical Record: [id number] | | Account: [id number] | | I/P/CU 14245/ | | | | | | Exam [...] in the SVC. | | The prior Free[place]-Gideon catheter has been removed. No obvious mediastinal [...] | P | | P | | SLW/dc/[id number]/ | | cc: ROSALVA LOZADA MD | | ANUJ GALLEGO MD | | ARAVIND WOLF MD | + + XR Chest 1 Vw (07/10/2009 5:33 AM PST) + + | Specimen | + + | | + + + + + | Narrative | Performed At | + + + | [facility] | | | [facility] [address] | | | , | | | [id number]/RADIOLOGY Patient Name: CLEMENTINE NUNEZ Date of : | | | 1940 Medical Record: [id number] Account: [id number] | | | CHRIS [address]/ Exam Date/Time: 07/10/2009 | | | 05:00 [...] 09:49 A | | | A A CHARMAINE/britni/[id number]/ | | | cc: MD FAISAL PERLA MD SAAD | | | MD CHRIS | | + + + + + | Procedure Note | + + | Howard, Rad Conversion - 01/25/2019 5:24 PM PDT | | [facility] | | [facility] [address] | | , | | | | [id number]/RADIOLOGY | | | | Patient Name: CLEMENTINE NUNEZ | | Date of : 1940 | | Medical Record: [id number] | | Account: [id number] | | I/P/ 71424/ | | | | | | Exam [...] | A | | A | | TSG//[id number]/ | | cc: ROSALVA LOZADA MD | | FAISAL RUELAS MD | | ANUJ GALLEGO MD | + + XR Chest 1 Vw (07/09/2009 12:25 PM PST) + + | Specimen | + + | | + + + + + | Narrative | Performed At | + + + | [facility] | | | [facility] [address] | | | , | | | [id number]/RADIOLOGY Patient Name: CLEMENTINE NUNEZ Date of : | | | 1940 Medical Record: [id number] Account: [id number] | | | I/P/[facility] / Exam Date/Time: 07/09/2009 | | [...] | overlying the stomach. A right sided Freeburg-Gideon catheter is seen with | | | [...] 3 cm. 2. Right sided central line, Freeburg-Gideon | | | catheter, left sided chest [...] P P | | | 05:09 P /[facility]/[id number]/ cc: MD VERONICA PERLA | | | DO ANUJ LOPEZ MD | | + + + + + | Procedure Note | + + | Nilay Lawrence Conversion - 01/25/2019 5:24 PM PDT | | [facility] | | [facility] [address] | | , | | | | [id number]/RADIOLOGY | | | | Patient Name: CLEMENTINE NUNEZ | | Date of : 1940 | | Medical Record: [id number] | | Account: [id number] | | I/P/CCC | | | | [...] the stomach. A right | | sided Free[place]-Gideon catheter is seen with its tip in [...] | | 2. Right sided central line, Freeburg-Gideon catheter, left sided chest tube | | [...] | P | | P | | EI/[facility]/[id number]/ | | cc: ROSALVA LOZADA MD | [...] that was | | | non-reportable in [employer] system. | | + + + + + | Procedure Note | + + | Nilay Lawrence Conversion - 01/25/2019 5:24 PM PDT See medical record for report. This is | | a converted record that was non-reportable in [employer] system. | + + XR Chest 2 Vws (07/08/2009 12:33 PM PST) + + | Specimen | + + | | + + + + + | Narrative | Performed At | + + + | [facility] | | | [facility] [address] | | | , | | | [id number]/RADIOLOGY Patient Name: CLEMENTINE NUNEZ Date of : | | | 1940 Medical Record: [id number] Account: [id number] | | | I/P/MADIHA 16[address]/ Exam Date/Time: 07/08/2009 | | | 11:50 [...] 08:59 A | | | P A RAMYK/jovanna/[id number]/ | | | cc: JIM SANCHEZ MD | | | ANUJ GALLEGO MD | | + + + + + | Procedure Note | + + | Nilay Lawrence Conversion - 01/25/2019 5:24 PM PDT | | [facility] | | [facility] [address] | | , | | | | [id number]/RADIOLOGY | | | | Patient Name: CLEMENTINE NUNEZ | | Date of : 1940 | | Medical Record: [id number] | | Account: [id number] | | I/P/MADIHA 37365/ | | | | | | Exam [...] | P | | A | | IDChi/jovanna/[id number]/ | | cc: RANJIT TRONCOSO [facility] | | MARCIA MOTLEY MD | | ANUJ GALLEGO MD | + + ECHO Complete (07/07/2009 2:30 PM PST) + + | Specimen | + + | | + + + + + | Narrative | Performed At | + + + | [id number] | | | Page 1 ECHO [facility] NAME: | | | [place] [address] MEDICAL RECORD #: | | | [id number] | | | DATE OF : 1940 ORDER | | | NUMBER: [id number] EXAM DATE/TIME: 07/07/2009 13:49 PERFORMING | | [...] 56.72 ml D-E Excursion: 1.44 cm E-F [place]: 0.04 | | | m/s EPSS: 0.76 [...] TV A Obed: 0.65 m/s TV Dec [place]: 1.90 m/s2 TV Dec Time: | | | 260.30 ms TV E Obed: 0.49 m/s TV E/A Ratio: 0.75 | | | Surveyor Mine: EZEKIEL Authenticated by: Anuj Gallego MD Report Date/Time: | | | 07-08-2009 08:56:44 | | + + + + + | Procedure Note | + + | Nilay Lawrence - 01/25/2019 5:24 PM PDT [id number] | | Page [address] [place] [address] NAME: [place], [place] | | [address] : ACCOUNT #: | | [id number]: DATE OF : 2ORDER NUMBER: | | [id number] DATE/TIME: 07/07/2009 13:49PERFORMING PHYSICIAN: Anuj SUERO | [...] mlLAESV Index (A-L): 19.90 ml/m2LAAs A2C: 16.02 kh2WFHEW A-L | | A2C: 39.78 mlLALs A2C: 5.48 cmLAAs A4C: 13.91 ua2JEJSH A-L A4C: 30.58 mlLALs | | A4C: 5.37 cmAo Diam: 2.60 cmAV Cusp: 1.30 cmLA Diam: 3.63 cmLA/Ao: 1.39%FS: | | 37.5 %EDV(Teich): 83.61 mlEF(Teich): 67.83 %ESV(Teich): 26.89 mlIVSd: 1.04 | | cmIVSs: 1.27 cmLVIDd: 4.31 cmLVIDs: 2.69 cmLVPWd: 1.04 cmLVPWs: 1.27 | | cmSV(Teich): 56.72 mlD-E Excursion: 1.44 cmE-F [place]: 0.04 m/sEPSS: 0.76 cmIVC | | diameter: 1.27 cmIVC collapse: 0.31 cmIVC % collapse: 73.72 %HR: 81.96 BPMAV | | maxP.03 mmHgAV meanP.44 mmHgAV Vmax: 1.50 m/Shreyas Vmean: 0.99 m/Shreyas VTI: | | 26.02 cmAVA Vmax: 1.39 cm2AVA (VTI): 1.60 oe8YKSM Dopp: 1.83 l/mkzu1EMOZ Dopp: | | 3.25 l/minHR: 78.02 BPMLVOT [...] A Obed: | | 0.65 m/sTV Dec [place]: 1.90 m/s2TV Dec Time: 260.30 msTV E Obed: 0.49 m/sTV E/A | | Ratio: 0.75 Surveyor Mine: MIKAuthenticated by: Anuj Gallego MDReport Date/Time: | [...] | |D-E Excursion: 1.44 cm | |E-F [place]: 0.04 m/s | |EPSS: 0.76 cm | [...] A Obed: 0.65 m/s | |TV Dec [place]: 1.90 m/s2 | |TV Dec Time: 260.30 ms | |TV E Obed: 0.49 m/s | |TV E/A Ratio: 0.75 | | | |Surveyor Mine: EZEKIEL | |Authenticated by: Anuj Gallego MD | |Report Date/Time: 07-08-2009 08:56:44 | + + US Veins Extremiity Bilateral (07/07/2009 2:10 PM PST) + + | Specimen | + + | | + + + + + | Narrative | Performed At | + + + | [facility] | | | [facility] [address] | | | , | | | [id number]/RADIOLOGY Patient Name: CLEMENTINE NUNEZ Date of : | | | 1940 Medical Record: [id number] Account: [id number] | | | I/P/MADIHA [address]/ Exam Date/Time: 07/07/2009 | | | 08:00 [...] 09:58 P P | | | P CASIMIRO/gracie/[id number]/ cc: MARCIA MOTLEY MD | | | ANUJ GALLEGO MD | | + + + + + | Procedure Note | + + | Howard, Rad Conversion - 01/25/2019 5:24 PM PDT | | [facility] | | [facility] [address] | | , | | | | [id number]/RADIOLOGY | | | | Patient Name: CLEMENTINE NUNEZ | | Date of : 1940 | | Medical Record: [id number] | | Account: [id number] | | I/P/ 23797/ | | | | | | Exam [...] | P | | P | | CASIMIRO/gracie/[id number]/ | | cc: MARCIA MOTLEY MD | | ANUJ GALLEGO MD | + + VAS Carotid Duplex Bilateral (07/07/2009 2:01 PM PST) + + | Specimen | + + | | + + + + + | Narrative | Performed At | + + + | [facility] | | | [facility] [address] | | | , | | | [id number]/RADIOLOGY Patient Name: CLEMENTINE NUNEZ Date of : | | | 1940 Medical Record: [id number] Account: [id number] | | | I/P/CU 28373/ Exam Date/Time: 07/07/2009 | | | 08:00 [...] P P | | | 02:33 P CASIMIRO/gracie/[id number]/ cc: MARCIA MOTLEY MD ANUJ | | | MD CHRIS | | + + + + + | Procedure Note | + + | Nilay Lawrence - 01/25/2019 5:24 PM PDT | | [facility] | | [facility] [address] | | , | | | | [id number]/RADIOLOGY | | | | Patient Name: CLEMENTINE NUNEZ | | Date of : 1940 | | Medical Record: [id number] | | Account: [id number] | | I/P/CU 56134/ | | | | | | Exam [...] | | [facility]/gracie/[id number]/ | | cc: MARCIA MOTLEY MD | | ANUJ GALLEGO MD | + + CV CARDIAC PROCEDURE (07/06/2009 4:45 PM PST) + + | Specimen | + + | | + + + + + | Narrative | Performed At | + + + | [facility] | | | [facility] [address] | | | , | | | [id number]/CARDIOLOGY Patient Name: CLEMENTINE NUNEZ Date of : | | | 1940 Medical Record: [id number] Account: [id number] | | | I/P/MADIHA 21863/ Exam Date/Time: 07/06/2009 | | | 03:41 [...] for possible closure device deployment. 5. A 6-Egyptian Mynx | | | closure device deployment at the right arteriotomy site. | | | INDICATIONS The patient is a very pleasant 69-year-old lady | | | who was recently admitted at [facility] after an episode | | | of chest pain. The patient was ruled out for a myocardial infarction | | | and discharged and subsequently was advised to have a stress test at | | | [facility] which was significantly abnormal, | | [...] with 1% | | | lidocaine. A 6-Egyptian vascular sheath was inserted in the right [...] was pulled, and | | | a 6-E[place]ian Mynx closure device was deployed at the [...] | segment and was filling distally via cwve-or-grsij collaterals. | | | LEFT VENTRICULOGRAM Left [...] A | | | 09:51 P A /[id number]/ cc: CHING Sevilla | | | MD ANUJ DAI MD | | + + + + + | Procedure Note | + + | Nilay Lawrence Conversion - 01/25/2019 5:24 PM PDT | | [facility] | | [facility] [id number] | | , | | | | [id number]/CARDIOLOGY | | | | Patient Name: CLEMENTINE NUNEZ | | Date of : 1940 | | Medical Record: [id number] | | Account: [id number] | | I/P/ [id number]/ | | | | | | Exam [...] closure device deployment. | | 5. A 6-E[place]ian Mynx closure device deployment at the right arteriotomy | | site. | | | | INDICATIONS | | The patient is a very pleasant 69-year-old lady who was | | recently admitted at [facility] after an episode of chest | | pain. The patient was ruled out for a myocardial infarction and | | discharged and subsequently was advised to have a stress test at [facility] which was significantly abnormal, revealing | [...] groin | | with 1% lidocaine. A 6-Egyptian vascular sheath was inserted in the right [...] sheath. The sheath was pulled, and a 6-E[place]ian Mynx closure device was | | deployed [...] | segment and was filling distally via [id number]-[id number] collaterals. | | | | LEFT VENTRICULOGRAM [...] | P | | A | | /[id number]/ | | cc: CHING DAI MD | | ANUJ GALLEGO MD | + + documented in this encounter Visit Diagnoses + + | Diagnosis | + + | Acute myocardial infarction, subendocardial infarction, initial episode of care (HCC) | | Acute myocardial infarction, subendocardial infarction, initial episode of care | + + documented in this encounter"
--- OUTSIDE RECORDS SUMMARY | ~2019-10-27 | XMS | Encounter Summary ---
Demographics + + + | Address | [address] | | | [place] [address] | + + + | Home Phone [...] [place], | | | | | [place] [address] | | + + + + + | Kellen Briones | ECON | [place], [place] | | | | | [address] | | + + + + + Care Team Providers + +------+ + | Care Privacy Analyst Name | Role | Phone | [...] + + | 05/07/ | Telephone | [facility] | Irving Becerril, | Paperwork | | 2016 | | NEUROSURGERY [address] | DO [address] | | | | | [address] | [address] [place], [place] | | | | | [place], [place] | [id number] | | | | | [address] | | | | | | [phone] | | | +--------+ + + + [...]
--- OUTSIDE RECORDS SUMMARY | ~2019-10-27 | XMS | Encounter Summary ---
Demographics + + + | Address | [address] | | | [place] [address] | + + + | Home Phone [...] [place], | | | | | [place] [address] | | + + + + + | Kellen Briones | ECON | [place] | | | | | [address] | | + + + + + Care Team Providers + +------+ + | Care Chip Machine Operator Name | Role | Phone | + +------+ + | Barb Mrate | PCP | | + +------+ + Reason for Visit + + + | Reason | Comments | + + + | Surgery Appointment | schedule surgery | + + + Encounter Details +--------+ + + + + | Date | Type | Department | Care Team | Description | +--------+ + + + + | 06/15/ | Telephone | [facility] | Monster White MD | Surgery Appointment | | 2020 | | [facility] | [address] | (schedule surgery) | | | | ORTHOPEDIC SPINE | [address] [place], [place] | | | | | [address] | [address] | | | | | [place] | | | | | | [address] | | | | | | [phone] | | | +--------+ + + + [...]
--- OUTSIDE RECORDS SUMMARY | ~2019-10-27 | XMS | Encounter Summary ---
Demographics + + + | Address | [address] | | | [place] [address] | + + + | Home Phone [...] [place], | | | | | [place] [address] | | + + + + + | Kellen Briones | ECON | [place], [place] | | | | | [address] | | + + + + + Care Team Providers + +------+ + | Care Appointment Manager Name | Role | Phone | [...] + + | 03/05/ | Telephone | [facility] | Tk Ann | Other (Reschedule | | 2012 | | PHYSIATRY [address] | [address] | injection) | | | | [address] | [place], [place] | | | | | [place], [place] | [id number] | | | | | [address] | | | | | | [phone] | | | +--------+ + + + [...]
--- OUTSIDE RECORDS SUMMARY | ~2019-10-27 | XMS | Encounter Summary ---
Demographics + + + | Address | [address] | | | [place] [address] | + + + | Home Phone [...] [place], | | | | | [place] [address] | | + + + + + | Kellen Briones | ECON | [place], [place] | | | | | [address] | | + + + + + Care Team Providers + +------+ + | Care Supervisor Scenic Arts Name | Role | Phone | + +------+ + | Anna De Guzman PA-C | PCP | | + +------+ + Encounter Details +--------+ + + + + | Date | Type | Department | Care Team | Description | +--------+ + + + + | 02/01/ | Hospital | [facility] | Irving Becerril, | Neck pain | | 2016 | Encounter | MED CTR XRAY [address] | DO [address] | | | | | [place] | [address] [place], [place] | | | | | [place] [address] | [id number] | | | | | [phone] | | | +--------+ + + + [...] [address] | [place] | [phone] | | [facility] | | [address] | | | - IMAGING | | | | + + + + + documented in this encounter Visit Diagnoses + + | Diagnosis | + + | Neck pain Cervicalgia | + + documented in this encounter"
--- OUTSIDE RECORDS SUMMARY | ~2019-10-27 | XMS | Clinical Summary ---
Demographics + + + | Address | [address] | | | [place] [address] | + + + | Home Phone | | + + + | Preferred Language | Unknown | + + + | Marital Status | | + + + | Buddhism Affiliation | Unknown | + + + | Race | Unknown | + + + | Ethnic Group | Unknown | + + + Author + + + | Author | [facility] [employer] (Historical as of | | | 01-17-19) | + + + | Organization | [facility] [employer] (Historical as of | | | 01-17-19) | + + + | Address | Unknown | + + + | Phone | Unavailable | + + + Support + + + + + | Name | Relationship | Address | Phone | + + + + + | Lucy Winchester | ECON | [place], | | | | | [place] [address] | | + + + + + | Kellen Briones | ECON | Unknown | | + + + + + Care Team Providers + +------+ + | Care Psychologist Counseling Name | Role | Phone | + [...] | + + + | History of [place] (myocardial infarction) | 03/30/2016 | + [...] Vaccine: Influenza | | | | | (Season Ended) | 0 | | | + + [...] +------+-------+ + | MEDICARE | MEDICA | [id number] | | | [address] | | | [place] | | | | [place] [address] | | | IP-OP | | | | | + +--------+ +------+-------+ + | UNITED [employer]ARE | UNITED | [id number] | | | | | | | | | | | | | HEALTH | | | | | | | CARE - | | | | | | | AARP | | | | | + +--------+ +------+-------+ + | STEPHANIE - ERICKA - | CHAMPV | [id number] | | | [place] [id number] | | [place] | [place] | | | | [place] | | | | | | | [address] | + +--------+ +------+-------+ + + +--------+ [...] | | al/Fam | | 194 | [phone] | [place] | | | amanuel | | | [address]: | [address] | | | | | | | | | | | | | [phone] | | | | | | | [phone] | | + +--------+ +--------+ + +"
--- OUTSIDE RECORDS SUMMARY | ~2019-10-27 | XMS | Encounter Summary ---
Demographics + + + | Address | [address] | | | [place] [address] | + + + | Home Phone [...] [place], | | | | | [place] [address] | | + + + + + | Kellen Briones | ECON | [place], [place] | | | | | [address] | | + + + + + Care Team Providers + +------+ + | Care Financial Writer Name | Role | Phone | + [...] Thoracic or | [place], | [address] | | | | | lumbosacral | Tk Monreal MD | [place], | | | | | neuritis or | [address] | [place] | | | | | | [place] | [address] | | | | | radiculitis, | [place], [place] | Phone: | | | | | unspecified | [address] | [phone] | | | | | Procedures | Phone: | Fax: | | | | | RI INJECT | [phone] | [phone] | | | | | ANES/STEROID | Fax: | | | | | | [place] | [phone] | | | | | | LUMBAR/SACRA [...] + + | 06/08/ | Hospital | [facility] | Tk Ann | Lumbar radiculopathy | | 2015 | Encounter | MED CTR XRAY [address] | T, [address] | (Primary Dx); DDD | | | | [address] [place] | [place], [place] | (degenerative disc | | | | [place] [address] | [address] | disease), lumbar; | | | | [phone] | | Facet arthritis of | | | | | Microscopist, [facility] | lumbar region-Most | | | | | [place] | severe at | | | | | | L4-L5,L5-S1; Spinal | | | | | | stenosis of lumbar | | | | | | region with | | | | | | gpdepbaxlzuod-R9-I5 | | | | | | level [...] with | | | | | | tgfzkvwzjawwo-W4-I2 | | | | | | level [...] ICD-9 Code 724.4 Clementine Phoenix | [facility] | | Annabella presents to the fluoroscopy suite for fluoroscopically-guided [facility] | | bilateral L5-S1 transforaminal [...] | [facility] | [address] | [place], [place] | [phone] | | [facility] | | [address] | | | - IMAGING | | [...] | Spinal stenosis of lumbar region with ozdyomuqlonlb-J2-D5 level moderately severe | | Spinal stenosis, [...]
--- OUTSIDE RECORDS SUMMARY | ~2019-10-27 | XMS | Encounter Summary ---
Demographics + + + | Address | [address] | | | [place] [address] | + + + | Home Phone [...] [place], | | | | | [place] [address] | | + + + + + | Kellen Briones | ECON | [place] | | | | | [address] | | + + + + + Care Team Providers + +------+ + | Care Mandrel Puller Name | Role | Phone | + +------+ + | Barb Marte | THANG | | + +------+ + Encounter Details +--------+ + + + + | Date | Type | Department | Care Team | Description | +--------+ + + + + | 01/31/ | Hospital | [facility] | Judson Palacios DO | | | 2018 - | Encounter | [facility] | [address] | | | | | CARE FLOOR [address] | [place] [address] | | | 02/05/ | | [address] | [phone] | | | 2017 | | [place], [place] | | | | | | [address] | | | | | | [phone] | | | +--------+ + + + [...] Service: Hospitalist Author Type: Physician Filed: 02/06/18 4199 Date of Service: 02/05/181509 Status: Signed Parts Sales Advisor: Faisal Briceno MD (Physician) [facility] [...] She was initially admitted to [facility] from 01/16/2018 till 01/28/2018 d ue to suspicion of acute left MCA stroke. Work up there with MRI was negative while Carotid FDopplers showed less than 50 % stenosis. She was subsequently discharged home but she was r eadmitted due to increasing confusion and mild renal failure with creatinine 1.26. She was e ventually transferred to [facility] for further management. She did not [...] No discharge procedures on file. Follow up: [facility] Schedule an appointment as soon as possible [...] Author: JASON Montaño Service: (none) Author Type: Emr Trainer Filed: 02/05/181418 Date of Service: 02/05/181417 Status: Signed Parts Sales Advisor: JASON Montaño (Emr Trainer) Pt's daughter is Lucy and can be reached at: [phone]; [phone] JASON Montaño onver aura Transaction, Provider Unknown - 02/05/2018 2:17 PM PDT Case Management by JASON Montaño at 02/05/181416 Author: JASON Montaño Service: (none) Author Type: Emr Trainer Filed: 02/05/181416 Date of Service: 02/05/181416 Status: Signed Parts Sales Advisor: JASON Montaño (Emr Trainer) Disposition: Home to [place] Transportation: Daughter Patient and family in agreement with discharge plan Medicare important message (Given or N/A): Given- signed and placed in chart JASON Montaño onver aura Transaction, Provider Unknown - 02/05/2018 6:59 AM PDT Nurse Progress Note by Nila Gonzalez RN at 02/05/18658 Author: Nila Gonzalez RN Service: (none) Author Type: Registered Nurse Filed: 02/05/18701 Date of Service: 02/05/18658 Status: Signed Parts Sales Advisor: Nila Gonzalez RN (Registered Nurse) End of shift review completed by this RN. Nila Gonzalez RN onver aura Transaction, Provider Unknown - 02/05/2018 6:44 AM PDT Nurse Progress Note by Vonnie Nolasco RN at 02/05/18643 Author: Vonnie Nolasco RN Service: (none) Author Type: Registered Nurse Filed: 02/05/18647 Date of Service: 02/05/18643 Status: Signed Parts Sales Advisor: Vonnie Nolasco RN (Registered Nurse) Patient A/OX4, [...] 02/05/18226 Date of Service: 02/05/18224 Status: Signed Parts Sales Advisor: Vonnie Nolasco RN (Registered Nurse) IV occluded, [...] 02/04/181849 Date of Service: 02/04/181838 Status: Signed Parts Sales Advisor: Claribel Kerr RN (Registered Nurse) Patient afebrile, [...] 02/04/181954 Date of Service: 02/04/181629 Status: Signed Parts Sales Advisor: Margo Phillips PT (Physical Therapist) PHYSICAL THERAPY TREATMENT NOTE PT Received On: 02/04/18 Reason for Treatment: Deconditioning Requires PT Follow Up: Yes Follow up PT Only?: No Focus for Next Treatment: Stair Training, Family Training/Education (see comment), Patient Education (see comment) Assistance Required: 1 person Veterinary Toxicologist Needed: No Recommendations: Home Assist, Prior Setting, Acute ST, Acute OT, OP PT (resume previous OPP T) Equipment Recommended: (none, has SPC and 4ww at baseline) Barriers to Discharge: Cognitive Deficits Impacting Functional [place], Physical Defic its Impacting Functional [place], Self-care Deficits Impacting Functional [place] Recommendation Comments: Limitation for ongoing mobility assessment and stair negotiation t joslyn's date 07/05 nausea. Pt requires further mobility assessment to maximize safe d/c plan. A nticipate home with daughter with 24/12 assist and resume OPPT for balance deficits. Plan Treatment/Interventions: Continue per Primary PT POC Progress: Progressing toward goals PT Frequency: 5-7x/wk, Once per day Summary Comments: Pt received finishing shower with FAMILY LAWYER, agreeable to PT intervention with emphasis for [...] 4:15 PM PDT Progress Notes by Tala Mruo RD at 02/04/18 1615 Author: Tala Muro RD Service: (none) Author Type: Registered Dietitian Filed: 02/04/18 1616 Date of Service: 02/04/18 1615 Status: Signed Parts Sales Advisor: Tala Muro RD (Registered Dietitian) 02/04/18 1537 [...] Physical Findings Digestive System (Mouth to Rectum) INVESTOR following. Pt reports she doesn't like the [...] Estimated Energy Needs Total Energy Estimated Needs 4126-5963 kcal/day Method for Estimating Needs 25-30 kcal/kg based on adj BW of 55.6 kg Estimated Protein Needs Total Protein Estimated Needs 67-83 g/day Method for Estimating Needs 1.2-1.5 g/kg based on adj BW of 55.6 kg Recommendations Recommended energy needs Continue diet per INVESTOR. Send Boost Pudding TID with meals. Encourag [...] Progress Note by EARNEST Francois-S at 02/04/18 8516 Author: EARNEST Francois-S Service: (none) Author Type: Speech Therapist Filed: 02/04/18 0159 Date of Service: 02/04/18 1416 Status: Attested Parts Sales Advisor: EARNEST Francois-S (Speech Therapist) Cosigner: Desi Leary MS [facility]-INVESTOR at 02/04/18 1516 Attestation signed by Desi Leary MS CCC-INVESTOR at 02/04/18 1516 Student therapist educationally participated [...] miguel student's role in care. BEDSIDE SWALLOW INVESTOR Last Visit INVESTOR Received On: 02/04/18 Requires INVESTOR Follow Up: Yes Recommendations Liquids Consistency Recommendations: [place] thick (Ok for thins between meals) Diet [...] are progressing unless otherwise indicated. Dysphagia Goals Development Writer Goals: Advanced diet Pt will advanced diet [...] evidence of learning [] Refused Tonya Grullon, INVESTOR-S 02/04/2018 3:10 PM Faisal Muse MD - 02/04/2018 11:34 AM PDTFormatting of this note might be different from yadi thibodeaux original. Progress Notes by Faisal Briceno MD at 02/04/18 3105 Author: Faisal Briceno MD Service: Hospitalist Author Type: Physician Filed: 02/04/18 1548 Date of Service: 02/04/18 7744 Status: Signed Parts Sales Advisor: Faisal Briceno MD (Physician) [facility] Service: Hospitalist Progress Note Clementine Hand Janymerlyn 77 y.o. [phone] [id number]/[id number] female PER PT NONE (Inactive) Hospital Day: LOS: 4 days SUBJECTIVE Patient Summary: Patient is a 77 year old female with past medical history of Stroke, CAD, S/P CABG, DM Type II, Chronic Back Pain on Opioids who was admitted due to mental status changes and confusio n. She was initially admitted to [facility] from 01/16/2018 till 01/28/2018 due to suspicion of acute left MCA stroke. Work up there with MRI was negative while Carotid FDo pplers showed less than 50 % stenosis. She was subsequently discharged home but she was read mitted due to increasing confusion and mild renal failure with creatinine 1.26. She was even tually transferred to [facility] for further management. She did not [...] Secondary to dehydration and confusion. PT services [facility], appreciate their help. DVT prophylaxis with [...] 02/04/18731 Date of Service: 02/04/18731 Status: Signed Parts Sales Advisor: Thais Castellon RN (Registered Nurse) Pt had [...] 02/03/181705 Date of Service: 02/03/181701 Status: Signed Parts Sales Advisor: Thais Antunez RN (Registered Nurse) Pt alert [...] Date of Service: 02/03/18 1051 Status: Addendum Parts Sales Advisor: Sumit Alvarenga MD (Physician) Related Notes: Original Note by Sumit Alvarenga MD (Physician) filed at 02/03/18 1122 [facility] Service: Hospitalist Progress Note Hospital Day: LOS: 3 days Post-Op Day: * No surgery found * SUBJECTIVE Patient Summary: admission H and P Dr. Palacios:"transferred from [facility] [place] to [facility] today for ongoing confusion of unclear etiology. Originally hospi talized at [facility] 01/26-01/28 due to confusion, aphasia, suspected CVA. Workup included neg MRI, US carotids showing 50% stenosis, unremarkable echo and telemetry. She was evaluate d by PHYSICAL THERAPY/OT/INVESTOR and DC'd home. She reportedly was alert, [...] but this could not be done at [facility]. She was accepted by Dr [...] with patient's daughter over the phone (Leighton [phone]), she is hopeful that she can return [...] able to tell me she is at [facility], able to tell me she lives in [place] on, was unsure of the month and date , Cooperative, calm HENT: Mouth/Throat: No oropharyngeal exudate. 3 mm pupils bilateral, reactive Eyes: Oral mucosa moist Neck: Neck seems supple Cardiovascular: Normal rate. Pulmonary/Chest: Effort normal. Abdomina/Gl: Soft. Bowel sounds are normal. Neurological: She is alert. No cranial nerve deficit. Hel[employer] [place] strength equal No pronation drift Motor seems [...] 02/03/18605 Date of Service: 02/02/182212 Status: Signed Parts Sales Advisor: Jessy Jeter RN (Registered Nurse) Alert and [...] 02/02/182007 Date of Service: 02/02/182006 Status: Signed Parts Sales Advisor: Minal Clarke RN (Registered Nurse) BPs remained elevated this shift, PRN hydralazine given x2 and labetolol x1. Pt has trouble finding words at times and has delayed responses. Bed alarm on at all times, end of shift r eview completed. Minal ClarkeRN onver aura Transaction, Provider Unknown - 02/02/2018 3:54 PM PDT Progress Notes by Iascc Vail at 02/02/18 1554 Author: Isacc Vail Service: (none) Author Type: [place] Supervisor Filed: 02/02/18 1618 Date of Service: 02/02/18 1554 Status: Signed Parts Sales Advisor: Isacc Vail (Wood [place] Supervisor) Per Distress Referral. Pt appears calm in [...] Date of Service: 02/02/18 1033 Status: Signed Parts Sales Advisor: Jonathan Montes RN (Registered Nurse) 02/02/18 1024 Discharge Planning Evaluation Admitting Diagnosis Acute Metabolic encephalopathy Readmission No Living Arrangements Children (Pts daughter lives with her Lucy [phone]) Support Systems Children Type of Residence Private residence House type House-1 story Steps to enter 5 Independent with ADL's Yes Independent with Mobility Yes Home Care Services No Caregiver after Discharge No Mental Status Oriented Prior functional status independent Power of Trimmer Operator No Anticipated Discharge Plan Post Acute Care [...] y.o., female from home with keely Ayala [phone]. Daughter will transport pt home when medically stable. Pt uses a 4ww at home when needed, Home o2 thru [employer] at 2L, and no other DME or blood thinners. Patient's PCP is:[facility] Patient's insurance:Medicare/[employer] Coverage concerns: no concerns Medication coverage/concerns: no [...] 02/02/1855 Date of Service: 02/02/18825 Status: Signed Parts Sales Advisor: Sumit Alvarenga MD (Physician) [facility] Service: Hospitalist Progress Note Hospital Day: LOS: 2 days Post-Op Day: * No surgery found * SUBJECTIVE Patient Summary: admission H and P Dr. Palacios:"transferred from [facility] [place] to [facility] today for ongoing confusion of unclear etiology. Originally hospi talized at [facility] 01/26-01/28 due to confusion, aphasia, suspected CVA. Workup included neg MRI, US carotids showing 50% stenosis, unremarkable echo and telemetry. She was evaluate d by PHYSICAL THERAPY/OT/INVESTOR and DC'd home. She reportedly was alert, [...] but this could not be done at [facility]. She was accepted by Dr [...] able tell she lives i [facility] though unable to give me full address , Cooperative, calm HENT: Mouth/Throat: No oropharyngeal exudate. 3 mm pupils bilateral, reactive Eyes: Oral mucosa moist Neck: Neck seems supple Cardiovascular: Normal rate. Pulmonary/Chest: Effort normal. Abdomina/Gl: Soft. Bowel sounds are normal. Neurological: She is alert. No cranial nerve deficit. Helper [place] strength equal No pronation drift Motor seems [...] 0636 Date of Service: 02/02/18214 Status: Signed Parts Sales Advisor: Jessy Jeter RN (Registered Nurse) Patient was [...] Note by Jina Nation RN at 02/01/18 0072 Author: Jina Nation RN Service: (none) Author Type: Registered Nurse Filed: 02/01/18 190 Date of Service: 02/01/18 1841 Status: Signed Parts Sales Advisor: Jina Nation RN (Registered Nurse) Patient has [...] from previous assessment. Shift betsy t complete. Jian Nation RN Idalia Darby MS CCC-INVESTOR - 02/01/2018 9:40 AM PDTFormatting of this note might be different fr om the original. Therapy Progress Note by Idalia Katz MS CCC-INVESTOR at 02/01/18 09 Author: Idalia Katz MS CCC-INVESTOR Service: (none) Author Type: Speech and Language Patho logist Filed: 02/01/18 1001 Date of Service: 02/01/1840 Status: Signed Parts Sales Advisor: Idalia Katz MS CCC-INVESTOR (Speech and Language Pathologist) BEDSIDE SWALLOW INVESTOR Last Visit INVESTOR Received On: 02/01/18 Requires INVESTOR Follow Up: Yes Recommendations Liquids Consistency Recommendations: [place] thick, Sips of thin water ok between [...] laryngeal elevation upon palpation, Spontaneous double swallow [place] Presentation: Cup Oral: Within functional limits Pharyngeal Phase: Delayed swallow initiated, Decreased laryngeal elevation upon palpation, No overt signs or symptoms of aspiration, Spontaneous double swallow Puree Presentation: Spoon Oral Phase: Within functional limits, Increased oral holding time Pharyngeal: No overt signs or symptoms of aspiration, Delayed Swallow, Decreased Laryngeal Elevation, Spontaneous double swallow Goals are progressing unless otherwise indicated. Dysphagia Goals Development Writer Goals: Advanced diet Pt will advanced diet [...] Notes by Sumit Alvarenga MD at 02/01/18 7421 Author: Sumit Alvarenga MD Service: Hospitalist Author Type: Physician Filed: 02/01/18 0858 Date of Service: 02/01/18830 Status: Addendum Parts Sales Advisor: Sumit Alvarenga MD (Physician) Related Notes: Original Note by Sumit Alvarenga MD (Physician) filed at 02/01/1855 [facility] Service: Hospitalist Progress Note Hospital Day: LOS: 1 day Post-Op Day: * No surgery found * SUBJECTIVE Patient Summary: admission H and P Dr. Palacios:"transferred from [facility] [place] to [facility] today for ongoing confusion of unclear etiology. Originally hospi talized at [facility] 01/26-01/28 due to confusion, aphasia, suspected CVA. Workup included neg MRI, US carotids showing 50% stenosis, unremarkable echo and telemetry. She was evaluate d by PHYSICAL THERAPY/OT/INVESTOR and DC'd home. She reportedly was alert, [...] but this could not be done at [facility]. She was accepted by Dr [...] improved renal function, due to ongoing symptoms [place] requested josué mcpherson to our facility for [...] She is alert. No cranial nerve deficit. Helper [place] strength seems bilateral Rigidity with a passive [...] Note by Jessy Jeter RN at 02/01/18 5827 Author: Jessy Jeter RN Service: (none) Author Type: Registered Nurse Filed: 02/01/18 0652 Date of Service: 02/01/18435 Status: Signed Parts Sales Advisor: Jessy Jeter RN (Registered Nurse) Patient alert [...] Note by Jessy Jeter RN at 01/31/18 4635 Author: Jessy Jeter RN Service: (none) Author Type: Registered Nurse Filed: 01/31/182250 Date of Service: 01/31/182245 Status: Signed Parts Sales Advisor: Jessy Jeter RN (Registered Nurse) All oral [...] 01/31/181958 Date of Service: 01/31/181956 Status: Signed Parts Sales Advisor: Keith Bonds RN (Registered Nurse) Pt brought [...] | | | Fingerstick | performed at [facility];[address] | | LAB | | | | [address];[place] | | | | | | [address] | | | | + + + [...] | | | | | | MDRD IDKY traceable | | | | | | equation.Testing | | | | | | performed at [facility];[address] | | | | | | [facility];[place], [place] | | | | | | [address] | | | | + + + [...] | | | Fingerstick | performed at [facility];[address] | | LAB | | | | [address];[place] | | | | | | [address] | | | | + + + [...] | | | Fingerstick | performed at [facility];[address] | | LAB | | | | [address];[place] | | | | | | [address] | | | | + + + [...] | | | Fingerstick | performed at [facility];[address] | | LAB | | | | [address];[place], [place] | | | | | | [address] | | | | + + + [...] | | | Fingerstick | performed at [facility];[address] | | LAB | | | | [address];[place], [place] | | | | | | [address] | | | | + + + [...] | | | Fingerstick | performed at [facility];[address] | | LAB | | | | [address];[place] | | | | | | [address] | | | | + + + [...] | | | | performed at [facility], [address] | | LAB | | | | [address], | | | | | | [place] [address] | | | | + + + [...] | | | | | | MDRD IDKY traceable | | | | | | equation.Testing | | | | | | performed at [facility], [address] | | | | | | [facility], | | | | | | [place] [address] | | | | + + + [...] | | | Fingerstick | performed at [facility];[address] | | LAB | | | | [address];[place], [place] | | | | | | [address] | | | | + + + [...] | | | Fingerstick | performed at [facility];[address] | | LAB | | | | [address];[place] | | | | | | [address] | | | | + + + [...] | | | Fingerstick | performed at [facility];[address] | | LAB | | | | [address];[place] | | | | | | [address] | | | | + + + [...] | | | Fingerstick | performed at [facility];[address] | | LAB | | | | [address];[place] | | | | | | [address] | | | | + + + [...] | | | | | performed at [facility], [address] | | | | | | [facility], | | | | | | [place] [address] | | | | + + + [...] | | | Fingerstick | performed at [facility];[address] | | LAB | | | | [address];[place] | | | | | | [address] | | | | + + + [...] | | | Fingerstick | performed at [facility];[address] | | LAB | | | | [address];[place], [place] | | | | | | [address] | | | | + + + [...] | | | Fingerstick | performed at [facility];[address] | | LAB | | | | [address];[place], [place] | | | | | | [address] | | | | + + + [...] | | | Fingerstick | performed at [facility];[address] | | LAB | | | | [address];[place], [place] | | | | | | [address] | | | | + + + [...] + + | Hemoglobin | 5.4Comment: The Norwegian | 4.0 - 6.0 % | EXTERNAL [...] | | | | | performed at [facility], [address] | | | | | | [facility], | | | | | | [place] [address] | | | | + + + [...] | | | Fingerstick | performed at [facility];[address] | | LAB | | | | [address];[place] | | | | | | [address] | | | | + + + [...] | | | Fingerstick | performed at [facility];[address] | | LAB | | | | [address];[place], [place] | | | | | | [address] | | | | + + + [...] | | | Fingerstick | performed at [facility];[address] | | LAB | | | | [address];[place], [place] | | | | | | [address] | | | | + + + [...] | | | Basophils | performed at [facility], [address] | K/uL | LAB | | | | [address], | | | | | | [place] [address] | | | | + + + [...] EXTERNAL | | | | performed at [facility], [address] | uIU/mL | LAB | | | | [address], | | | | | | [place] [address] | | | | + + + [...] EXTERNAL | | | | performed at [facility];[address] | mmol/L | LAB | | | | [address];[place] | | | | | | [address] | | | | + + + [...] EXTERNAL | | | | performed at [facility];[address] | | LAB | | | | [address];[place] | | | | | | [address] | | | | + + + [...] | | | | | performed at [facility], [address] | | | | | | [facility], | | | | | | [place] [address] | | | | + + + [...]
--- OUTSIDE RECORDS SUMMARY | ~2019-10-27 | XMS | Encounter Summary ---
Demographics + + + | Address | [address] | | | [place] [address] | + + + | Home Phone [...] [place], | | | | | [place] [address] | | + + + + + | Kellen Briones | ECON | [place], [place] | | | | | [address] | | + + + + + Care Team Providers + +------+ + | Care Power Generating Plant Operator Name | Role | Phone | + +------+ + | Barb Marte | PCP | | + +------+ + Reason for Visit +--------+ + | Reason | Comments | +--------+ + | Other | labs abnormal | +--------+ + Encounter Details +--------+ + + + + | Date | Type | Department | Care Team | Description | +--------+ + + + + | 07/09/ | Telephone | [facility] | Maren Parra CMA | Other (labs | | 2020 | | [facility] | | abnormal) | | | | [facility] | | | | | | [address] | | | | | | [place] | | | | | | [address] | | | | | | [phone] | | | +--------+ + + + [...]
--- OUTSIDE RECORDS SUMMARY | ~2019-10-27 | XMS | Encounter Summary ---
Demographics + + + | Address | [address] | | | [place] [address] | + + + | Home Phone [...] [place], | | | | | [place] [address] | | + + + + + | Kellen Briones | ECON | [place], [place] | | | | | [address] | | + + + + + Care Team Providers + +------+ + | Care Data Technical Lead Name | Role | Phone | + [...] [address] | [address] [place], [place] | | | | | [place], [place] | [id number] | | | | | [address] | | | | | | [phone] | | | +--------+ + + + [...] + | [address] | [address] | [place] | [phone] | | [facility] | | [address] | | | - IMAGING | | | | + + + + + documented in this encounter Visit Diagnoses + + | Diagnosis | + + | Neck pain - Primary Cervicalgia | + + documented in this encounter"
--- OUTSIDE RECORDS SUMMARY | ~2019-10-27 | XMS | Encounter Summary ---
Demographics + + + | Address | [address] | | | [place] [address] | + + + | Home Phone [...] [place], | | | | | [place] [address] | | + + + + + | Kellen Briones | ECON | [place] | | | | | [address] | | + + + + + Care Team Providers + +------+ + | Care Brazer Repair And Salvage Name | Role | Phone | + [...] | | | without | [place], | [place], [place] | | | |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 | [place] [address] | [address] | | | | | claudication | Phone: | Phone: | | | | | lumbar | [phone] | [phone] | | | | | | Fax: | Fax: | | | | | | [phone] | [phone] | + +--------+ + + + + Encounter Details +--------+---------+ + + + | Date | Type | Department | Care Team | Description | +--------+---------+ + + + | 06/04/ | Office | [facility] | Monster White MD | 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[facility] | [address] | lumbar region | | | | ORTHOPEDIC SPINE | [address] [address] [place], [place] | (Primary Dx); Lumbar | | | | [address] | [address] | degenerative disc | | | | [place], [place] | | disease | | | | [address] | | | | | | [phone] | | | +--------+---------+ + + + [...] + documented in this encounter Progress Notes Yifna Ware ARNP - 06/04/2019 1:50 PM PST [...] fentanyl, antidepressants Social History Occupational History 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 Employer: [employer] Tobacco Use Smoking status: [...] reflux disease) Hyperlipidemia Hypertension Lumbar radiculopathy 07/23/2012 MD (myocardial infarction) ([facility]) Neck pain on right side 05/13/2013 Oxygen dependent 2 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 Snoring Spinal stenosis of lumbar region with jyqylevozukoj-Y3-P9 level moderately severe 2012 Past Surgical History: Procedure Laterality Date BELPHAROPTOSIS REPAIR 2008 bilateral bone spur left foot BREAST RECONSTRUCTION 6676-1755 About 10 surgeries CARPAL TUNNEL RELEASE Bilateral CERVICAL SPINE SURGERY Anterior 03/30/2016 Procedure: C3-4, C4-5, C5-6, C6-7 Anterior Cervical Discectomy w/ Fusion and Plating; Bryan geon: Irving Becerril DO; Location: [facility] MAIN OR CORONARY ARTERY BYPASS GRAFT 2010 [...] Order Specific Question: Send directly to hospital home care scheduler (bypassing clinic staff) Answer: No Note: We spent approximately 25 minutes in fepj-qi-mdrs time of which greater than 50% was [...]
--- OUTSIDE RECORDS SUMMARY | ~2019-10-27 | XMS | Encounter Summary ---
Demographics + + + | Address | [address] | | | [place] [address] | + + + | Home Phone [...] [place], | | | | | [place] [address] | | + + + + + | Kellen Briones | ECON | [place], [place] | | | | | [address] | | + + + + + Care Team Providers + +------+ + | Care Meat Cooler Name | Role | Phone | + +------+ + | Anna De Gumzan PA-C | PCP | | + +------+ [...] | Cervical | [place], | [address] | | | | | spondylosis | Tk Monreal MD | [place], | | | | | Procedures | [address] | [place] | | | | | OR INJ | [place] | [address] | | | | | DX/THER AGNT | [facility], [place] | Phone: | | | | | [place] | [address] | [phone] | | | | | [place], | Phone: | Fax: | | | | | | [phone] | [phone] | | | | | CERV/THORAC, | Fax: | | | | | | 1ST LEVEL | [phone] | | | | | | OR INJ | | | | | | | DX/THER AGNT | | | | | | | [place] | | | | | | | FACET JOINT, | | | | | | | | | | | | | | CERV/THORAC, | | | | | | | 2ND LEVEL | | | | | | | OR INJ | | | | | | [...] + + | 03/08/ | Hospital | [facility] | [place], | Neck pain on right | | 2015 | Encounter | MED CTR XRAY [address] | [address] | side; DDD | | | | [address] [place] | [facility] [address] | (degenerative disc | | | | [place] [address] | [place] [address] | disease), cervical; | | | | [phone] | [phone] | Facet arthritis of | | | | | | cervical region | | | | | Verification RepJordan | | | | | | marco [...] 721.0 Clementine Winchester presents to the | [facility] | | fluoroscopy suite for fluoroscopically-guided right C3-C4, C4-C5 and | [facility] | | C5-C6 facet injections as part [...] [address] | [place] | [phone] | | [facility] | | [address] | | | - IMAGING | | [...]
--- OUTSIDE RECORDS SUMMARY | ~2019-10-27 | XMS | Encounter Summary ---
Demographics + + + | Address | [address] | | | [place] [address] | + + + | Home Phone [...] [place], | | | | | [place] [address] | | + + + + + | Kellen Briones | ECON | [place], [place] | | | | | [address] | | + + + + + Care Team Providers + +------+ + | Care Sales Officer Name | Role | Phone | [...] | 06/15/ | Office | [facility] | [place], | Lumbar radiculopathy | | 2015 | Visit | PHYSIATRY [address] | [address] | (Primary Dx); | | | | [address] | [address] | Spinal stenosis of | | | | [place], [place] | [place] [address] | lumbar region with | | | | [address] | [phone] | jdhrxwxolpprv-G6-Q2 | | | | [phone] | | level moderately | | | [...] of the procedure you must provide a professional driver to take you home. For all [...] and narcotic medications use; she currently uses [place], Flexeril and ga bapentin. Patient's medications, allergies, [...] has no apparent deficits with short or medical terminologist memory. She has appropriate fund of knowledge [...] 2. Spinal stenosis of lumbar region with dskbffzwhhqbp-K7-M0 level moderately severe 3. DDD (degenerative disc [...] me in the near [facility] re. 2. I did not [...] 07/05/2015 Bilateral Transforaminal Epidural Steroid Injections | [facility] | | Diagnosis: Lumbar radiculopathy ICD-10 Code M54.16 Clementine Phoenix | [facility] | | Annabella presents to the fluoroscopy suite for [facility] | | fluoroscopically-guided bilateral L5-S1 [...] ST. | [address] | [place], [place] | [phone] | | [facility] | | [address] | | | - IMAGING | | | | + + + + + documented in this encounter Visit Diagnoses + + | Diagnosis | + + | Lumbar radiculopathy - Primary Thoracic or lumbosacral neuritis or radiculitis, | | unspecified | + + | Spinal stenosis of lumbar region with dkvttggbkwiwq-J6-S8 level moderately severe | | Spinal stenosis, [...]
--- OUTSIDE RECORDS SUMMARY | ~2019-10-27 | XMS | Encounter Summary ---
Demographics + + + | Address | [address] | | | [place] [address] | + + + | Home Phone [...] [place], | | | | | [place] [address] | | + + + + + | Kellen Briones | ECON | [place], [place] | | | | | [address] | | + + + + + Care Team Providers + +------+ + | Care Core Layer Machine Operator Name | Role | Phone [...] | | | | | claudication | [place] | [address] | | | | | Procedures | [address] | Phone: | | | | | CT Lumbar | Phone: | [phone] | | | | | Spine wo | [phone] | Fax: | | | | | Contrast | Fax: | [phone] | | | | | | [phone] | | +--------+--------+ + + + + Encounter Details +--------+ + + + + | Date | Type | Department | Care Team | Description | +--------+ + + + + | 04/09/ | Hospital | [facility] | Monster White MD | | | 2019 | Encounter | MED CTR CT [address] | [address] | | | | | [place], | [place] | | | | | [place] [address] | [address] | | | | | [phone] | | | +--------+ + + + [...]
--- OUTSIDE RECORDS SUMMARY | ~2019-10-27 | XMS | Encounter Summary ---
Demographics + + + | Address | [address] | | | [place] [address] | + + + | Home Phone [...] [place], | | | | | [place] [address] | | + + + + + | Kellen Briones | ECON | [place], [place] | | | | | [address] | | + + + + + Care Team Providers + +------+ + | Care Cash Posting Specialist Name | Role | Phone | [...] | | | [place], [place] | [place] [address] | lumbar region with | | | | [address] | [phone] | mlydqyqpgidwn-J1-M3 | | | | [phone] | | level moderately | | | [...] of the procedure you must provide a driver's license reviewing officer to take you home. For all procedur [...] and narcotic medications use; she currently uses [place], Flexeril and ga bapentin. Patient's medications, allergies, [...] has no apparent deficits with short or long term care pharmacist memory. She has appropriate fund of knowledge [...] 2. Spinal stenosis of lumbar region with ylvpjekifzygb-L9-M1 level moderately severe 3. DDD (degenerative disc [...] be performed by me in the near [facility] re. 2. I did not make any [...] radiculopathy ICD-10 Code M54.16 Clementine Phoenix | [facility] | | Annabella presents to the fluoroscopy suite for [facility] | | fluoroscopically-guided bilateral L5-S1 [...] ST. | [address] | [place], [place] | [phone] | | [facility] | | [address] | | | - IMAGING | | | | + + + + + documented in this encounter Visit Diagnoses + + | Diagnosis | + + | Lumbar radiculopathy - Primary Thoracic or lumbosacral neuritis or radiculitis, | | unspecified | + + | Spinal stenosis of lumbar region with maxxafmearfeo-Y8-I4 level moderately severe | | Spinal stenosis, [...]
--- OUTSIDE RECORDS SUMMARY | ~2019-10-27 | XMS | Encounter Summary ---
Demographics + + + | Address | [address] | | | [place] [address] | + + + | Home Phone [...] [place], | | | | | [place] [address] | | + + + + + | Kellen Briones | ECON | [place], [place] | | | | | [address] | | + + + + + Care Team Providers + +------+ + | Care Backshoe Person Name | Role | Phone | + +------+ + | Anna De Guzman PA-C | PCP | | + +------+ + Encounter Details +--------+ + + + + | Date | Type | Department | Care Team | Description | +--------+ + + + + | 04/15/ | Hospital | [facility] | IsakkaydenkaileeTk mathis | | | 2012 | Encounter | MED CTR XRAY [address] | T, [address] | | | | | [place] | [place], [place] | | | | | [place] [address] | [address] | | | | | [phone] | | | +--------+ + + + [...] + | [facility] | [place] | | Department [address] [facility] | [facility] | | [ rep [address]] [ rep [facility] | | [facility]] Signed | - IMAGING | | | | | Patient Name: CLEMENTINE WINCHESTER Physician: | | | : 1940 Age: 72 Sex: F Unit #: [id number] | | | Exam Date: 04/15/13 [place] [facility] | | | Report #: [id number] Page: | | | %(RAD)RES..mtdd.print.filter("pg") of %(RAD) | | | RES..mtdd.print.filter("tpg") | | | | | | Accession Number: [id number] | | | EPIDURAL STEROID INJECTION, 04/15/2013 [...] Transcribed | | | Date/Time: 04/17/2013 14:04 Integrity Engineer: | | | <<Signature on File>> | | | Tk Monreal | | | MD Marissa04/24/13 1211 <Electronically signed by Tk Monreal | | | Marissa ALVARADO> Tk Ann MD 04/17/13 1256 | | | Integrity Engineer: [employer] Ahtmxwssorvxt69/15/13 1404 | | | | | + + + + + + + + | Performing | Address | City/State/Zipcode | Phone Number | | Organization | | | | + + + + + | [address] | [address] | [place], [place] | [phone] | | [facility] | | [address] | | | - IMAGING | | | | + + + + + documented in this encounter Visit Diagnoses Not on filedocumented in this encounter
--- OUTSIDE RECORDS SUMMARY | ~2019-10-27 | XMS | Encounter Summary ---
Demographics + + + | Address | [address] | | | [place] [address] | + + + | Home Phone [...] [place], | | | | | [place] [address] | | + + + + + | Kellen Briones | ECON | [place], [place] | | | | | [address] | | + + + + + Care Team Providers + +------+ + | Care Power Distribution Engineer Name | Role | Phone | [...] + + | 03/28/ | Telephone | [facility] | Irving Becerril, | Surgery Appointment | | 2015 | | NE[address]URGERY [address] | DO [address] | (reminder ) | | | | [address] | [address] [place], [place] | | | | | [place], [place] | [address] | | | | | [address] | | | | | | [phone] | | | +--------+ + + + [...]
--- OUTSIDE RECORDS SUMMARY | ~2019-10-27 | XMS | Encounter Summary ---
Demographics + + + | Address | [address] | | | [place] [address] | + + + | Home Phone [...] [place], | | | | | [place] [address] | | + + + + + | Kellen Briones | ECON | [place], [place] | | | | | [address] | | + + + + + Care Team Providers + +------+ + | Care Bird Keeper Name | Role | Phone | + +------+ + | Anna De Guzman PA-C | PCP | | + +------+ + Encounter Details +--------+ + + + + | Date | Type | Department | Care Team | Description | +--------+ + + + + | 03/07/ | Hospital | [facility] | Irving Becerril, | Stroke of unknown | | 2016 | Encounter | MED CTR XRAY [address] | DO [address] | etiology ([facility]); | | | | [place] | [address] [place], [place] | Cerebrovascular | | | | [place] [address] | [address] | accident (CVA), | | | | [phone] | | unspecified | | | | | Caleb San MD | mechanism (HCC); | | | | | [address] | Lumbar | | | | | [place], [place] | radiculopathy; | | | | | [address] | Cervical stenosis of | | | [...] involving | | | | | | nikolai coronary | | | | | | artery of nikolai | | | | | | heart without angina | | | | | | pectoris; 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 | | | | | | without complication | | | | | | ([facility]); Essential | | | | | | hypertension; | | | | | | Syncope and | | | | | | collapse; Cancer | | | | | | ([facility]); 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| | hyperlipidemia; ST | | | | | | elevation myocardial | | | | | | infarction (STEMI), | | | | | | unspecified artery | | | | | | ([facility]); | | | | | [...] with | | | | | | qrpmwkwaiovas-P6-L8 | | | | | | level [...] | | | | | ([facility]); DDD | | | | [...] involving | | | | | | nikolai coronary | | | | | | artery of nikolai | | | | | | heart [...] with | | | | | | uetdamxfhoaas-J4-T6 | | | | | | level [...] PA and Lateral Chest COMPARISON: None. | [facility] | | FINDINGS: Sternal wires [...] + | [address] | [address] | [place] | [phone] | | [facility] | | [address] | | | - IMAGING | | [...] + + | Coronary artery disease involving nikolai coronary artery of nikolai heart without | | angina pectoris | + + | Type 1 diabetes mellitus without complication ([facility]) Type I (juvenile type) diabetes | | [...] | Spinal stenosis of lumbar region with pqcivugluztpu-C2-B7 level moderately severe | | Spinal stenosis, [...]
--- OUTSIDE RECORDS SUMMARY | ~2019-10-27 | XMS | Encounter Summary ---
Demographics + + + | Address | [address] | | | [place] [address] | + + + | Home Phone [...] [place], | | | | | [place] [address] | | + + + + + | Kellen Briones | ECON | [place], [place] | | | | | [address] | | + + + + + Care Team Providers + +------+ + | Care Commercial Underwriter Name | Role | Phone | + [...] | arthritis of | [address], | [place], [place] | | | | | cervical | [address] | [address] Phone: | | | | | region DDD | [place], [place] | [phone] | | | | | (degenerativ | [address] | Fax: | | | | | e disc | Phone: | [phone] | | | | | disease), | [phone] | | | | | | cervical | Fax: | | | | | | Cervical | [phone] | | | | | | stenosis of | | | | | | | spinal canal | | | +--------+ + + + + + Encounter Details +--------+---------+ + + + | Date | Type | Department | Care Team | Description | +--------+---------+ + + + | 02/01/ | Office | [facility] | Irving Becerril, | Spondylolisthesis, | | 2016 | Visit | NEUROSURGERY [address] | DO [address] | cervical region | | | | [address] | [address] [place], [place] | (Primary Dx); 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[place], [place] | [address] | secondary kyphosis, | | | | [address] | | cervical region; | | | | [phone] | | Cervical myelopathy | | | | | | ([facility]); Cervical | | | | [...] 1:30 PM PDT Irving Becerril DO [address] [facility], [address] [place] [address] FAX: NEUROSURGERY HISTORY AND PHYSICAL EXAMINATION CHIEF [...] Date Coronary artery disease Diabetes mellitus ([facility]) Hypertension Stroke ([facility]) Syncope and collapse Cancer ([facility]) Breast Hyperlipidemia CT (myocardial infarction) ([facility]) GERD (gastroesophageal reflux disease) Asthma Arthritis Lumbar radiculopathy 07/23/2012 DDD (degenerative disc disease), lumbar 07/23/2012 Spinal stenosis of lumbar region with ctqtresmxysrd-M0-M9 level moderately severe 2012 Facet arthritis of [...] 1989' Mastectomy, radical 1987 Right Breast reconstruction 3610-9110 ABout 10 surgeries Bone spur left foot [...] with short or chcf memory. CRANIAL NERVES: Fundoscopic Exam: The optic [...] Intrinsics 5 4+ Ulnar Intrinsics 5 4+ Piece Goods Packer Strength 4+ 4+ Hip Flexion 5 5 [...] Syncope and collapse Cancer (HCC) Breast Hyperlipidemia CT (myocardial infarction) (HCC) GERD (gastroesophageal reflux disease) Asthma Arthritis Lumbar radiculopathy 07/23/2012 DDD (degenerative disc disease), lumbar 07/23/2012 Spinal stenosis of lumbar region with xomxguvvgwbsf-X8-Z5 level moderately severe 2012 Facet arthritis of [...]
--- OUTSIDE RECORDS SUMMARY | ~2019-10-27 | XMS | Encounter Summary ---
Demographics + + + | Address | [address] | | | [place] [address] | + + + | Home Phone [...] [place], | | | | | [place] [address] | | + + + + + | Kellen Briones | ECON | [place], [place] | | | | | [address] | | + + + + + Care Team Providers + +------+ + | Care Painter And Paperhanger Apprentice Name | Role | Phone | [...] | Lumbar | [place], | [address] | | | | | radiculopath | Tk Monreal MD | [place], | | | | | y | [address] | [place] | | | | | Procedures | [place] | [address] | | | | | PA INJECT | [facility] [place] | Phone: | | | | | ANES/STEROID | [address] | [phone] | | | | | FORAMEN | Phone: | Fax: | | | | | LUMBAR/SACRA | [phone] | [phone] | | | | | L W IMG | Fax: | | | | | | GUIDE ,1 | [phone] | | | | | | LEVEL [...] + + | 07/05/ | Hospital | [facility] | Bogdanowicz, | Lumbar | | 2016 | Encounter | MED CTR XRAY [address] | [address] | radiculopathy; | | | | [place] | [facility], [address] | Spinal stenosis of | | | | [place] [address] | [place] [address] | lumbar region with | | | | [phone] | [phone] | qnmghgrcfbshl-N0-Z7 | | | | | | level moderately | | | | | [employer], [facility] | severe | | | | [...] with | | | | | | qpoxkbzxrmeqr-O1-B1 | | | | | | level [...] Annabella presents to the fluoroscopy suite for [facility] | | fluoroscopically-guided bilateral L5-S1 [...] [address] | [place] | [phone] | | [facility] | | [address] | | | - IMAGING | | | | + + + + + documented in this encounter Visit Diagnoses + + | Diagnosis | + + | Lumbar radiculopathy Thoracic or lumbosacral neuritis or radiculitis, unspecified | + + | Spinal stenosis of lumbar region with zjzctalkrtlqu-V8-X8 level moderately severe | | Spinal stenosis, [...]
--- OUTSIDE RECORDS SUMMARY | ~2019-10-27 | XMS | Encounter Summary ---
Demographics + + + | Address | [address] | | | [place] [address] | + + + | Home Phone [...] [place], | | | | | [place] [address] | | + + + + + | Kellen Briones | ECON | [place], [place] | | | | | [address] | | + + + + + Care Team Providers + +------+ + | Care Subassemblies Wirer Name | Role | Phone | + [...] + + | 10/08/ | Telephone | [facility] | Tk Ann | Other (Schedule | | 2012 | | PHYSIATRY [address] | TMD [address] | injection) | | | | [address] | [place], [place] | | | | | [place], [place] | [address] | | | | | [address] | | | | | | [phone] | | | +--------+ + + + [...]
--- OUTSIDE RECORDS SUMMARY | ~2019-10-27 | XMS | Encounter Summary ---
Demographics + + + | Address | [address] | | | [place] [address] | + + + | Home Phone [...] [place], | | | | | [place] [address] | | + + + + + | Kellen Briones | ECON | [place], [place] | | | | | [address] | | + + + + + Care Team Providers + +------+ + | Care Obstetrics Gyn Physician Name | Role | Phone | [...] [address] | [address] [place], [place] | (Primary Dx); Status | | | | [place], [place] | [address] | post cervical | | | | [address] | | spinal fusion | | | | [phone] | | | +--------+ + + + [...] ST. | [address] | [place] | [phone] | | [facility] | | [address] | | | - IMAGING | | | | + + + + + documented in this encounter Visit Diagnoses + + | Diagnosis | + + | Spondylolisthesis of cervical region - Primary Acquired spondylolisthesis | + + | Status post cervical spinal fusion Arthrodesis status | + + documented in this encounter"
--- OUTSIDE RECORDS SUMMARY | ~2019-10-27 | XMS | Encounter Summary ---
Demographics + + + | Address | [address] | | | [place] [address] | + + + | Home Phone [...] [place], | | | | | [place] [address] | | + + + + + | Kellen Briones | ECON | [place], [place] | | | | | [address] | | + + + + + Care Team Providers + +------+ + | Care Hospital Supervisor Name | Role | Phone | [...] | | | | hesis of | [address] | | | | | | lumbar | Phone: | | | | | | region | [phone] | | | | | | | Fax: | | | | | | | [phone] | | + + + + + [...] | | | | | Spondylolist | [place] | | | | | | hesis of | [address] | | | | | | lumbar | Phone: | | | | | | region | [phone] | | | | | | | Fax: | | | | | | | [phone] | | + + + + + [...] | | | | Lumbar | | [address] Phone: | | | | | degenerative | | [phone] | | | | | disc | | Fax: | | | | | disease | | [phone] | | | | | Procedures | | | | | | | LAMINEC/FACE | | | | | | | TECT/FORAMIN | | | | | | | ,LUMBAR 1 | | | | | | | SEG MT | | | | | | [...] + + | 07/22/ | Hospital | [facility] | Monster White MD | Type 1 diabetes | | 2019 - | Encounter | [facility] [address] | [address] | mellitus without | | | | [address] | [place], [place] | complication (HCC); | | 07/29/ | | [place], [place] | [address] | Lumbar degenerative | | 2019 | | [address] | | disc disease; | | | | [phone] | | Spondylolisthesis of | | | [...] Physician Discharge Summary Patient ID: Clementine Winchester [id number] y.o. 1940 Admit date: 07/22/2019 Discharge [...] keep wound clean and dry Follow-up with [facility] within 2 weeks. Activity restrictions, dressing changes [...] Itzel Adams RN - 07/28/2019 4:11 AM [facility] chart check complete. Electronically si gned by Itzel Alejandre RN at 07/28/2019 4:12 AM Macie Chapa PA-C - 07/24/2019 9:53 AM PST Orthopedic Spine Progress Note Postop [facility] Neurosurgery Provider: Macie Cordova PA-C Date : [...] anesthesia Arthritis Asthma Back pain Breast cancer ([facility]) 1987 Cancer ([facility]) Right breast Chronic diarrhea Chronic narcotic use COPD (chronic obstructive pulmonary disease) ([facility]) Coronary artery disease DDD (degenerative disc disease), cervical 05/13/2013 DDD (degenerative disc disease), lumbar 07/23/2012 Depression Diabetes mellitus ([facility]) Diabetes type 2, controlled ([facility]) Facet arthritis of cervical region 05/13/2013 Facet arthritis of lumbar region-Most severe at L4-L5,L5-S1 07/23/2012 Full dentures upper & lower GERD (gastroesophageal reflux disease) Heart attack ([facility]) Hyperlipidemia Hypertension Lumbar radiculopathy 07/23/2012 WV (myocardial infarction) ([facility]) Neck pain on right side 05/13/2013 Oxygen dependent 2 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 [place] MAIN OR CORONARY ARTERY BYPASS GRAFT 2009 HYSTERECTOMY, TOTAL ABDOMINAL 1969 LUMBAR SPINE SURGERY N/A 07/22/2019 Procedure: FUSION LUMBAR W/ LATERAL APPROACH (XLIF) L4/5; Surgeon: Monster White MD; Loca tion: [facility] MAIN OR LUMBAR SPINE SURGERY N/A 07/22/2019 Procedure: LAMINECTOMY POSTERIOR LUMBAR SPINAL FUSION L4/5; Surgeon: Monster White MD; L ocation: [facility] MAIN OR MASTECTOMY MASTECTOMY, RADICAL 1986 Right [...] H/O CVA/stroke 03/30/2016 Unknown Priority: Low H/O WV (myocardial infarction) 03/30/2016 Unknown Priority: Low H/O [...] Unknown Spinal stenosis of lumbar region with vllzmthwsfelz-T4-K1 level moderately severe 07/23 Unknown Facet arthritis [...] and collapse Unknown Cancer Unknown Hyperlipidemia Unknown WV (myocardial infarction) Unknown GERD (gastroesophageal reflux disease) Unknown Asthma Unknown Assessment Clementine Winchestre is a 79 y.o. female status post [...] 1. Type 1 diabetes mellitus without complication ([facility]) 2. Lumbar degenerative disc disease 3. Spondylolisthesis of lumbar region Past Medical History: Diagnosis Date Acid reflux disease Adverse effect of anesthesia trouble urinating after anesthesia Arthritis Asthma Back pain Breast cancer ([facility]) 1987 Cancer ([facility]) Right breast Chronic diarrhea Chronic narcotic use COPD (chronic obstructive pulmonary disease) ([facility]) Coronary artery disease DDD (degenerative disc disease), cervical 05/13/2013 DDD (degenerative disc disease), lumbar 07/23/2012 Depression Diabetes mellitus ([facility]) Diabetes type 2, controlled ([facility]) Facet arthritis of cervical region 05/13/2013 Facet arthritis of lumbar region-Most severe at L4-L5,L5-S1 07/23/2012 Full dentures upper & lower GERD (gastroesophageal reflux disease) Heart attack ([facility]) Hyperlipidemia Hypertension Lumbar radiculopathy 07/23/2012 [place] (myocardial infarction) ([facility]) Neck pain on right side 05/13/2013 Oxygen dependent 2 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 PTSD (post-traumatic stress disorder) Snoring Spinal stenosis of lumbar region with nyvyoyifpfzoh-A6-B5 level moderately severe 2012 Thyroid disease Current [...] mcg 100 mcg Oral Daily Yifan Ang, SHINE WORKER 100 mcg at 07/23/19 0801 docusate sodium (COLACE) capsule 100 mg 100 mg Oral BID Yifan Ang, SHINE WORKER 100 mg at 0 07/22/19 2024 DULoxetine (CYMBALTA) DR capsule 20 mg 20 mg Oral Daily Yifan Ang, SHINE WORKER 20 mg at 0801 fentaNYL (DURAGESIC) 25 mcg/hr 1 patch 1 patch Transdermal Q72H Yifan Ang, SHINE WORKER 1 p atch at 07/22/19 1407 furosemide (LASIX) tablet 20 mg 20 mg Oral Daily Yifan Ang, SHINE WORKER 20 mg at 07/22/19 1440 gabapentin (NEURONTIN) capsule 100 mg 100 mg Oral BID Yifan Ang, SHINE WORKER 100 mg at 0801 HYDROmorphone (DILAUDID) injection 0.2-0.4 mg 0.2-0.4 mg Intravenous Q1H PRN Yifan An g, SHINE WORKER lactulose liquid 30 mL 30 mL Oral Daily PRN Yifan Ang, SHINE WORKER levothyroxine (SYNTHROID) tablet 25 mcg 25 mcg Oral Daily Yifan Ang, SHINE WORKER 25 mcg at 07/23/19 0800 lisinopril (PRINIVIL, ZESTRIL) tablet 5 mg 5 mg Oral Daily Yifan Ang, SHINE WORKER 5 mg at 07/23/19 0801 metFORMIN (GLUCOPHAGE) tablet 500 mg 500 mg Oral Nightly Yifan Ang, SHINE WORKER 500 mg at 07/22/192023 methocarbamol (ROBAXIN) tablet 500 mg 500 mg Oral Q6H PRN Yifan Ang, SHINE WORKER 500 mg at 07/22/19 1825 ondansetron (ZOFRAN ODT) disintegrating tablet 4 mg 4 mg Oral Q6H PRN Yifan Ang, SHINE WORKER oxyCODONE (ROXICODONE) tablet 2.5-10 mg 2.5-10 mg Oral Q3H PRN Yifan Ang, SHINE WORKER 5 mg at 07/23/19 0309 pantoprazole (PROTONIX) DR tablet 40 mg 40 mg Oral QAM AC Yifan Ang, SHINE WORKER 40 mg at 07/23/19 0618 polyethylene glycol (MIRALAX) powder 17 g 17 g Oral Daily Yifan Ware, SHINE WORKER potassium chloride (KLOR-CON) ER tablet 10 mEq 10 mEq Oral Daily Yifan Ang, SHINE WORKER 10 mEq at 07/23/19 0801 senna (SENOKOT) tablet 8.6 mg 8.6 mg Oral BID Yifancali Ware, SHINE WORKER 8.6 mg at 07/22/19 20 24 sodium chloride 0.45% (1/2 NS) infusion Intravenous Continuous Yifan Ang, SHINE WORKER 100 m L/hr at 07/22/192027 sodium chloride 0.9% (NS) 1,000 mL bolus Intravenous Once Yifan Ang, SHINE WORKER 1,000 mL/h r at 07/23/19 0758 [...] Alignment: There | | | are 5 zuw-pxf-ltpdhdj lumbar vertebral type bodies. There is 5 [...] FINDINGS: | | Alignment: There are 5 mzu-aue-priaqhh lumbar vertebral type bodies. | | There [...] | | | Absolute | performed at [facility], [address] | [address] | LABORATORY | | | | [address], | | | | | | [place] [address] | | | | + + + + + + + + | Specimen | + + | Blood | + + + + + + + | Performing | Address | City/State/Zipcode | Phone Number | | Organization | | | | + + + + + | [facility] | [address] | [place] [address] | [phone] | + + + + + Comprehensive [...] | >60Comment: GFR <60: | >60 | [facility] | | | GFR | CHRONIC [...] | | | | | performed at [facility], [address] | | | | | | [facility], | | | | | | [place] [address] | | | | + + + + + + + + | Specimen | + + | Blood | + + + + + + + | Performing | Address | City/State/Zipcode | Phone Number | | Organization | | | | + + + + + | [facility] | [address] | [place] [address] | [phone] | + + + + + Comprehensive [...] | >60Comment: GFR <60: | >60 | [facility] | | | GFR | CHRONIC [...] | | | | | | MDRD IDND traceable | | | | | | equation.Testing | | | | | | performed at [facility], [address] | | | | | | [facility], | | | | | | [place] [address] | | | | + + + + + + + + | Specimen | + + | Blood | + + + + + + + | Performing | Address | City/State/Zipcode | Phone Number | | Organization | | | | + + + + + | [facility] | [address] | [place] [address] | [phone] | + + + + + CBC [...] 0.01Comment: Testing | 0.00 - 0.10 | [facility] | | | Absolute | performed at [facility], [address] | [address] | LABORATORY | | | | [address], | | | | | | [place] [address] | | | | + + + + + + + + | Specimen | + + | Blood | + + + + + + + | Performing | Address | City/State/Zipcode | Phone Number | | Organization | | | | + + + + + | [facility] | [address] | [place] [address] | [phone] | + + + + + Uric Acid (07/28/2019 8:30 AM PST) + + + + + + | Component | Value | Ref Range | Performed | Pathologist | | | | | At | Signature | + + + + + + | Uric Acid | 7.6 (H)Comment: Testing | 2.2 - 7.1 mg/dL | [facility] | | | | performed at [facility], [address] | | LABORATORY | | | | [address], | | | | | | [place] [address] | | | | + + + + + + + + | Specimen | + + | Blood | + + + + + + + | Performing | Address | City/State/Zipcode | Phone Number | | Organization | | | | + + + + + | [facility] | [address] | [place] [address] | [phone] | + + + + + CBC [...] | | LABORATORY | | | | [facility], [address] | | | | | | [place] | | | | | | [address] | | | | + + + + + + + + | Specimen | + + | Blood | + + + + + + + | Performing | Address | City/State/Zipcode | Phone Number | | Organization | | | | + + + + + | [facility] | [address] | [place] [address] | [phone] | + + + + + Basic [...] | | | | | performed at [facility], [address] | | | | | | [facility], | | | | | | [place] [address] | | | | + + + + + + + + | Specimen | + + | Blood | + + + + + + + | Performing | Address | City/State/Zipcode | Phone Number | | Organization | | | | + + + + + | [facility] | [address] | [place] [address] | [phone] | + + + + + POC [...] | | | POC | performed at [facility];[address] | | LABORATORY | | | | [address];[place], [place] | | | | | | [address] | | | | + + + + + + + + | Specimen | + + | | + + + + + + + | Performing | Address | City/State/Zipcode | Phone Number | | Organization | | | | + + + + + | [facility] | [address] | [place] [address] | [phone] | + + + + + [place] [...] | | | POC | performed at [facility];[address] | | LABORATORY | | | | [address];[place], [place] | | | | | | [address] | | | | + + + + + + + + | Specimen | + + | | + + + + + + + | Performing | Address | City/State/Zipcode | Phone Number | | Organization | | | | + + + + + | [facility] | [address] | [place] [address] | [phone] | + + + + + POC Glucose (07/22/2019 6:31 AM PST) + + + + + + | Component | Value | Ref Range | Performed | Pathologist | | | | | At | Signature | + + + + + + | Glucose, | 99Comment: Testing | 65 - 99 mg/dL | [facility] | | | POC | performed at [facility];[address] | | LABORATORY | | | | [address];[place] | | | | | | [address] | | | | + + + + + + + + | Specimen | + + | | + + + + + + + | Performing | Address | City/State/Zipcode | Phone Number | | Organization | | | | + + + + + | [facility] | [address] | [place] [address] | [phone] | + + + + + Protime INR (07/22/2019 6:30 AM PST) + + + + + + | Component | Value | Ref Range | Performed | Pathologist | | | | | At | Signature | + + + + + + | INR | 1.0Comment: REFERENCE | | [facility] | | | | RANGE:0.9 - [...] | | | | | performed at [facility];[address] | | | | | | [facility];[place], [place] | | | | | | [address] | | | | + + + + + + + + | Specimen | + + | Blood | + + + + + + + | Performing | Address | City/State/Zipcode | Phone Number | | Organization | | | | + + + + + | [facility] | [address] | [place] [address] | [phone] | + + + + + Basic [...] | | | | | performed at [facility];[address] | | | | | | [address];[place], [place] | | | | | | [address] | | | | + + + + + + + + | Specimen | + + | Blood | + + + + + + + | Performing | Address | City/State/Zipcode | Phone Number | | Organization | | | | + + + + + | [facility] | [address] | [place] [address] | [phone] | + + + + + Type [...] + + + | [facility] | [id number] | | [facility] | | | | | | LABORATORY | | + + + + + + | [facility] | Testing performed at | | [facility] | | | | [facility];[address] | | LABORATORY | | | | [address];[place] [address] | | | | + + + + + + + + | Specimen | + + | Blood | + + + + + + + | Performing | Address | City/State/Zipcode | Phone Number | | Organization | | | | + + + + + | [facility] | [address] [facility] [address] | [place] [address] | [phone] | + + + + + documented [...] | | | DAILY, First dose on [facility] 07/23/19 | | AM PST | [...] | | | | | | longer, mslvod-lbb-fxhdo use of | | | | | [...] | | | | | | | xtulee-gpl-rvktf use of at least | | | [...] | | | | First dose on [facility] 07/23/19 at 0900 | | AM [...]
--- OUTSIDE RECORDS SUMMARY | ~2019-10-27 | XMS | Encounter Summary ---
Demographics + + + | Address | [address] | | | [place] [address] | + + + | Home Phone [...] [place], | | | | | [place] [address] | | + + + + + | Kellen Briones | ECON | [place], [place] | | | | | [address] | | + + + + + Care Team Providers + +------+ + | Care Inspector Heating And Refrigeration Name | Role | Phone | + [...] | | Spinal | PA-C [address] | [place], [place] | | | | | stenosis, | [address] | [address] | | | | | other region | Ave | Phone: | | | | | Procedures | [place], | [phone] | | | | | [place] OFFICE | [place] | Fax: | | | | | CONSULTATION | [address] | [phone] | | | | | NEW/ESTAB | Phone: | | | | | | PATIENT 60 | [phone] | | | | | | MIN | Fax: | | | | | | | [phone] | | +--------+--------+ + + + + Encounter Details +--------+---------+ + + + | Date | Type | Department | Care Team | Description | +--------+---------+ + + + | 11/13/ | Office | [facility] | Gonzalo Mathew MD | Cervical spondylosis | | 2013 | Visit | 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 Then, look for Anterior Cervical Discectomy and Fusion (ACDF). documented in this encounter Progress Notes Gonzalo Mathew MD - 11/13/2013 11:00 AM PDTFormatting of this note might be different from t he original. Gonzalo Mathew MD [address] [place] [address], [address] [place] [address] FAX: NEUROSURGERY HISTORY AND PHYSICAL EXAMINATION CHIEF [...] Syncope and collapse Cancer (HCC) Breast Hyperlipidemia HI (myocardial infarction) (HCC) GERD (gastroesophageal reflux disease) Asthma Arthritis Lumbar radiculopathy 07/23/2012 DDD (degenerative disc disease), lumbar 07/23/2012 Spinal stenosis of lumbar region with zcuicvfmejfzm-T6-Y7 level moderately severe 2012 Facet arthritis of [...] 1989' Mastectomy, radical 1987 Right Breast reconstruction [id number] ABout 10 surgeries Bone spur left foot [...] apparent deficits with short or fdc memory. CRANIAL NERVES: II: Acuity is intact. [...] Intrinsics 5 5 Ulnar Intrinsics 5 5 General Technician Strength 5 5 Hip Flexion 5 5 [...] Syncope and collapse Cancer (HCC) Breast Hyperlipidemia HI (myocardial infarction) (HCC) GERD (gastroesophageal reflux disease) Asthma Arthritis Lumbar radiculopathy 07/23/2012 DDD (degenerative disc disease), lumbar 07/23/2012 Spinal stenosis of lumbar region with juqawhmlwitdj-Y7-Y6 level moderately severe 2012 Facet arthritis of [...]
--- OUTSIDE RECORDS SUMMARY | ~2019-10-27 | XMS | Encounter Summary ---
Demographics + + + | Address | [address] | | | [place] [address] | + + + | Home Phone [...] [place], | | | | | [place] [address] | | + + + + + | Kellen Briones | ECON | [place], [place] | | | | | [address] | | + + + + + Care Team Providers + +------+ + | Care Director Transition Name | Role | Phone | + [...] + + | 05/17/ | Office | [facility] | Chavo Jacob, | Status post cervical | | 2016 | Visit | NEUROSURGERY [address] | PA-C [address] | spinal fusion | | | | [address] | [address] | (Primary Dx) | | | | [place] | [place] [address] | | | | | [address] | [phone] | | | | | [phone] | | | +--------+---------+ + + + [...] encounter Patient Instructions Patient Instructions Perico Hearn, Supervisor Sleeping Bag Department - 05/17/2016 11:43 AM PSTYou may now [...] your back and use good technique when machine operator picker things and bending. documented in this encounter Progress Notes Chavo Jacob PA - 05/17/2016 11:41 AM PSTFormatting of this note might be different f rom the original. Perico Hearn, Cargo Operations Agent [address] [facility], [address] [place], [place] [address] FAX: NEUROSURGERY FOLLOW-UP CHIEF COMPLAINT: Chief Complaint [...] (HCC) Right breast Hyperlipidemia [place] (myocardial infarction) ([facility]) GERD (gastroesophageal reflux disease) Asthma Arthritis Lumbar radiculopathy 07/23/2012 DDD (degenerative disc disease), lumbar 07/23/2012 Spinal stenosis of lumbar region with efsrmbxaosvss-G5-X6 level moderately severe 2012 Facet arthritis of [...]
--- OUTSIDE RECORDS SUMMARY | ~2019-10-27 | XMS | Encounter Summary ---
Demographics + + + | Address | [address] | | | [place] [address] | + + + | Home Phone [...] [place], | | | | | [place] [address] | | + + + + + | Kellen Briones | ECON | [place] | | | | | [address] | | + + + + + Care Team Providers + +------+ + | Care Healthcare Sales Representative Name | Role | Phone [...] | | | | Lumbar | | [address] Phone: | | | | | degenerative | | [phone] | | | | | disc | | Fax: | | | | | disease | | [phone] | | | | | Procedures | | | | | | | LAMINEC/FACE | | | | | | | TECT/FORAMIN | | | | | | | ,LUMBAR 1 | | | | | | | SEG SC | | | | | | [...] + + | 07/22/ | Anesthesia | [facility] | Kaiser Rayo, | | | 2019 | [facility] | [address] | | | | | [address] | [place] [address] | | | | | [address] | Gita Etienne MD | | | | | [place], [place] | [address] | | | | | [address] | [place] [address] | | | | | [phone] | [phone] | | | | | | | [...] +----+---+ + + | | 0 | [place] | | | | 7 | 43-degrees [...] [address] | | eral | Antecubital; myaw-rqz-qceqll | Linda Basilio, | [place]en [...]
--- OUTSIDE RECORDS SUMMARY | ~2019-10-27 | XMS | Encounter Summary ---
Demographics + + + | Address | [address] | | | [place] [address] | + + + | Home Phone [...] [place], | | | | | [place] [address] | | + + + + + | Kellen Briones | ECON | [place], [place] | | | | | [address] | | + + + + + Care Team Providers + +------+ + | Care Spine Supervisor Name | Role | Phone | + +------+ + | Anna De Guzman PA-C | PCP | | + +------+ + Encounter Details +--------+ + + + + | Date | Type | Department | Care Team | Description | +--------+ + + + + | 03/07/ | Hospital | [facility] | Irving Becerril, | | | 2016 | Encounter | [facility] | DO [address] | | | | | [address] [facility] | [address] [place], [place] | | | | | [place], [place] | [address] | | | | | [address] | | | | | | [phone] | | | +--------+ + + + [...]
--- OUTSIDE RECORDS SUMMARY | ~2019-10-27 | XMS | Encounter Summary ---
Demographics + + + | Address | [address] | | | [place] [address] | + + + | Home Phone [...] [place], | | | | | [place] [address] | | + + + + + | Kellen Briones | ECON | [place], [place] | | | | | [address] | | + + + + + Care Team Providers + +------+ + | Care Assurance Senior Manager Insurance Name | Role | Phone | + [...] | | | Procedures | [address] [place] [facility] | | | | | [place] [facility] | [address] | [address] | | | | | Stress Test | [address] | [address] | | | | | (Vasodilator | [place] | [place] | | | | | ) | [address] | [address] | | | | | | Phone: | Phone: | | | | | | [phone] | [phone] | | | | | | Fax: | Fax: | | | | | | [phone] | [phone] | +--------+--------+ + + + + Encounter Details +--------+ + + + + | Date | Type | Department | Care Team | Description | +--------+ + + + + | 02/17/ | Hospital | [facility] | TinajeroFlorindayDO | | | 2019 | Encounter | [facility] [place] | [address] | | | | | NUC MED [address] | [address] [place], [place] | | | | | [address] | [address] | | | | | [place], [place] | | | | | | [address] | | | | | | [phone] | | | +--------+ + + + [...]
--- OUTSIDE RECORDS SUMMARY | ~2019-10-27 | XMS | Encounter Summary ---
Demographics + + + | Address | [address] | | | [place] [address] | + + + | Home Phone [...] [place], | | | | | [place] [address] | | + + + + + | Kellen Briones | ECON | [place], [place] | | | | | [address] | | + + + + + Care Team Providers + +------+ + | Care Living Advisor Name | Role | Phone | [...] + + | 09/30/ | Office | [facility] | Pippa, | DDD (degenerative | | 2015 | Visit | PHYSIATRY [address] | AYAAN Taylor [address] | disc disease), | | | | [address] | [address] | lumbar (Primary Dx); | | | | [place] | [place] [address] | Spinal stenosis of | | | | [address] | [phone] | lumbar region with | | | | [phone] | | zwegyuiqffvln-V8-R9 | | | | | | level [...] the procedure you must provide a local combination truck driver to take you home. For [...] spinal stenosis. Her last injection was in [facility] of this year. She reports that the [...] and narcotic medications use; she currently uses [place], Flexeril and ga bapentin. Patient's medications, allergies, [...] has no apparent deficits with short or termite control servicer memory. She has appropriate fund of knowledge [...] 2. Spinal stenosis of lumbar region with hreczsbduefjn-R9-I3 level moderately severe 3. Lumbar radiculopathy 4. [...] ICD-9 Code 724.4 Clementine Phoenix | [facility] | | Annabella presents to the fluoroscopy suite for fluoroscopically-guided | [facility] | | bilateral L5-S1 transforaminal epidural steroid [...] [address] | [place] | [phone] | | [facility] | | [address] | | | - IMAGING | | | | + + + + + documented in this encounter Visit Diagnoses + + | Diagnosis | + + | DDD (degenerative disc disease), lumbar - Primary Degeneration of lumbar or | | lumbosacral intervertebral disc | + + | Spinal stenosis of lumbar region with qgiodbqqwqtai-Q6-Q9 level moderately severe | | Spinal stenosis, [...]
--- OUTSIDE RECORDS SUMMARY | ~2019-10-27 | XMS | Encounter Summary ---
Demographics + + + | Address | [address] | | | [place] [address] | + + + | Home Phone [...] [place], | | | | | [place] [address] | | + + + + + | Kellen Briones | ECON | [place], [place] | | | | | [address] | | + + + + + Care Team Providers + +------+ + | Care Epoxy Fabrication Supervisor Name | Role | Phone | [...] + + | 12/23/ | Telephone | [facility] | Gonzalo Mathew MD | Records Request | | 2014 | | NEUROSURGERY [address] | [address] | (CARDIOLOGY | | | | [address] | [place] [address] | CLEARANCE) | | | | [place] | [phone] | | | | | [address] | | | | | | [phone] | | | +--------+ + + + [...]
--- OUTSIDE RECORDS SUMMARY | ~2019-10-27 | XMS | Encounter Summary ---
Demographics + + + | Address | [address] | | | [place] [address] | + + + | Home Phone [...] [place], | | | | | [place] [address] | | + + + + + | Kellen Briones | ECON | [place], [place] | | | | | [address] | | + + + + + Care Team Providers + +------+ + | Care Yellow Pages Space Salesperson Name | Role | Phone | [...] + + | 04/06/ | Telephone | [facility] | Irving Becerril, | Other (Post op call) | | 2015 | | NEUROSURGERY [address] | DO [address] | | | | | [address] [facility] [place] [address] | [address] [place], [place] | | | | | [place], [place] | [id number] | | | | | [address] | | | | | | [phone] | | | +--------+ + + + [...]
--- OUTSIDE RECORDS SUMMARY | ~2019-10-27 | XMS | Encounter Summary ---
Demographics + + + | Address | [address] | | | [place] [address] | + + + | Home Phone [...] [place], | | | | | [place] [address] | | + + + + + | Kellen Briones | ECON | [place], [place] | | | | | [address] | | + + + + + Care Team Providers + +------+ + | Care Crepe Laminator Operator Name | Role | Phone | [...] | Lumbar | [place], | [address] | | | | | radiculopath | Tk Monreal MD | [place], | | | | | y | [address] | [place] | | | | | Procedures | [place] | [address] | | | | | [place] INJECT | [place], [place] | Phone: | | | | | ANES/STEROID | [address] | [phone] | | | | | FORAMEN | Phone: | Fax: | | | | | LUMBAR/SACRA | [phone] | [phone] | | | | | L W IMG | Fax: | | | | | | GUIDE ,1 | [phone] | | | | | | LEVEL [...] + + | 09/29/ | Hospital | [facility] | Mono Diaz, | Lumbar radiculopathy | | 2019 | Encounter | MED CTR XRAY [address] | PA-C [address] | | | | | [address] [place] | [address] [place] | | | | | [place] [address] | [place] [address] | | | | | [phone] | [phone] | | | | | | | | | | | | Temp RecruiterJordan | | | | | | [place] [...]
--- OUTSIDE RECORDS SUMMARY | ~2019-10-27 | XMS | Encounter Summary ---
Demographics + + + | Address | [address] | | | [place] [address] | + + + | Home Phone [...] [place], | | | | | [place] [address] | | + + + + + | Kellen Briones | ECON | [place], [place] | | | | | [address] | | + + + + + Care Team Providers + +------+ + | Care Shearing Machine Tender Name | Role | Phone [...] | | | | | [place], | [place] [address] | | | | | | [place] [address] | Phone: | | | | | | Phone: | [phone] | | | | | | [phone] | Fax: | | | | | | Fax: | [phone] | | | | | | [phone] | | +--------+ + + + + [...] + + | 09/03/ | Office | [facility] | Patrick Gaffney MD [address] | Mental status change | | 2012 | Visit | NEUROLOGY [address] | [address] | (Primary Dx); Sleep | | | | [address] [facility], | [address] [place], | disorder | | | | [address] [place] | [place] [address] | | | | | [place] [address] | [phone] | | | | | [phone] | | | +--------+---------+ + + + [...] Cc: Anna Draper MD documented in this encounte r Plan of Treatment + + +--------+ + [...]
--- OUTSIDE RECORDS SUMMARY | ~2019-10-27 | XMS | Encounter Summary ---
Demographics + + + | Address | [address] | | | [place] [address] | + + + | Home Phone [...] [place], | | | | | [place] [address] | | + + + + + | Kellen Briones | ECON | [place], [place] | | | | | [address] | | + + + + + Care Team Providers + +------+ + | Care Oil Plant Operator Name | Role | Phone [...] Lumbar | AYAAN Villareal | [address] | | | | | radiculopath | [address] | [place], | | | | | y | [address] | [place] | | | | | Procedures | [address] | [address] | | | | | MRI Lumbar | [place], | Phone: | | | | | Spine wo | [place] [address] | [phone] | | | | | Contrast | Phone: | Fax: | | | | | | [phone] | [phone] | | | | | | Fax: | | | | | | | [phone] | | +--------+--------+ + + + + Reason for Visit + + + | Reason | Comments | + + + | Follow-up | Low Back Pain | + + + Encounter Details +--------+---------+ + + + | Date | Type | Department | Care Team | Description | +--------+---------+ + + + | 01/07/ | Office | [facility] | Mono Diaz, | Lumbar radiculopathy | | 2018 | Visit | PHYSIATRY [address] | PA-C [address] | (Primary Dx); | | | | [address] | [address] [place] | Spinal stenosis of | | | | [place] | [place] [address] | lumbar region with | | | | [address] | [phone] | rglyemqlsihip-I3-H2 | | | | [phone] | | level moderately | | | [...] or the spinal canal to narrow (called adna nosis) and press against a nerve. Date Last Reviewed: 03/06/201519991874-8867 [employer]. [address] [place] [address]. All righ ts reserved. This information is [...] and narcotic medications use; she currently uses [place], Flexeril and ga bapentin. She is taking [...] has no apparent deficits with short or fci memory. 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 LEVOSCOLIOSIS AND MULTILEVEL FACET | [...] + + | Performing | Address | City/State/[facility] | Phone Number | | [...] | Spinal stenosis of lumbar region with mxccejxbavylh-N6-Q5 level moderately severe | | Spinal stenosis, lumbar region, without neurogenic claudication | + + documented in this encounter
--- OUTSIDE RECORDS SUMMARY | ~2019-10-27 | XMS | Encounter Summary ---
Demographics + + + | Address | [address] | | | [place] [address] | + + + | Home Phone [...] [place], | | | | | [place] [address] | | + + + + + | Kellen Briones | ECON | [place], [place] | | | | | [address] | | + + + + + Care Team Providers + +------+ + | Care Splitter Machine Name | Role | Phone | [...] + | 03/07/ | Telephone | [facility] | Irving Becerril, | Other (Pre op meds | | 2016 | | NEUROSURGERY [address] | DO [address] | to stop) | | | | [address] | [address] [place], [place] | | | | | [place], [place] | [id number] | | | | | [address] | | | | | | [phone] | | | +--------+ + + + [...]
--- OUTSIDE RECORDS SUMMARY | ~2019-10-27 | XMS | Encounter Summary ---
Demographics + + + | Address | [address] | | | [place] [address] | + + + | Home Phone [...] [place], | | | | | [place] [address] | | + + + + + | Kellen Briones | ECON | [place], [place] | | | | | [address] | | + + + + + Care Team Providers + +------+ + | Care Purchase Request Editor Name | Role | Phone | [...] + | 02/11/ | Office | [facility] | Mono Diaz, | Lumbar radiculopathy | | 2018 | Visit | PHYSIATRY [address] | PA-C [address] | (Primary Dx) | | | | [address] | [address] [facility] | | | | | [place], [place] | [place] [address] | | | | | [address] | [phone] | | | | | [phone] | | | +--------+---------+ + + + [...] of the procedure you must provide a clark driver to take you home. For all [...] press against a nerve. Date Last Reviewed: 08/01/201719995462-6173 [employer]. [address] [place] [address], [place] [address]. All righ ts reserved. This information is [...] back symptoms. Recenlty patient was admitted to [facility]'s ED/ICU for abnormal behavior which was originally treated as a str samantha, patient's daughter requested she be transferred to [facility] where patient was diagnosed w ith [...] and narcotic medications use; she currently uses [place], Flexeril and ga bapentin. 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 Unfortunately Clementine Winchester continues to have [...]
--- OUTSIDE RECORDS SUMMARY | ~2019-10-27 | XMS | Encounter Summary ---
Demographics + + + | Address | [address] | | | [place] [address] | + + + | Home Phone [...] [place], | | | | | [place] [address] | | + + + + + | Kellen Briones | ECON | [place] | | | | | [address] | | + + + + + Care Team Providers + +------+ + | Care Poultry Farmer Egg Name | Role | Phone | + +------+ + | Barb Marte | [place] | | + +------+ + Encounter Details +--------+ + + + + | Date | Type | Department | Care Team | Description | +--------+ + + + + | 12/10/ | Orders Only | [facility] | Leonard Terraazs | DDD (degenerative | | 2019 | | [place] [address] | MD Di [address] | disc disease), | | | | [address] | [address] [place] | lumbar (Primary Dx); | | | | [place], [place] | [place] [address] | Lumbar | | | | [address] | [phone] | radiculopathy | | | | [phone] | | | +--------+ + + + [...]
--- OUTSIDE RECORDS SUMMARY | ~2019-10-27 | XMS | Encounter Summary ---
Demographics + + + | Address | [address] | | | [place] [address] | + + + | Home Phone [...] [place], | | | | | [place] [address] | | + + + + + | Kellen Briones | ECON | [place] | | | | | [address] | | + + + + + Care Team Providers + +------+ + | Care Malthouse Laborer Name | Role | Phone | + +------+ + | Barb Marte | [place] | | + +------+ + Encounter Details +--------+ + + + + | Date | Type | Department | Care Team | Description | +--------+ + + + + | 03/05/ | Hospital | [facility] | Barb Marte PA | Abnormal mammogram | | 2018 | Encounter | MED CTR ULTRASOUND | [address] | | | | | [address] | [address] [place] | | | | | [place] | [address] | | | | | [address] | | | | | | [phone] | | | +--------+ + + + [...] MLO spot | | | compression with mracos synthesis. Left breast MLO and ML with [...]
--- OUTSIDE RECORDS SUMMARY | ~2019-10-27 | XMS | Encounter Summary ---
Demographics + + + | Address | [address] | | | [place] [address] | + + + | Home Phone [...] [place], | | | | | [place] [address] | | + + + + + | Kellen Briones | ECON | [place], [place] | | | | | [address] | | + + + + + Care Team Providers + +------+ + | Care Security Ambassador Name | Role | Phone | + [...] + + | 12/22/ | Telephone | [facility] | Ramon Real | Appointment | | 2012 | | [address] | FMD [address] | (Appointment | | | | [address] | [place], [place] | request) | | | | [place], [place] | [address] | | | | | [address] | [phone] | | | | | [phone] | | | +--------+ + + + [...]
--- OUTSIDE RECORDS SUMMARY | ~2019-10-27 | XMS | Encounter Summary ---
Demographics + + + | Address | [address] | | | [place] [address] | + + + | Home Phone [...] [place], | | | | | [place] [address] | | + + + + + | Kellen Briones | ECON | [place] | | | | | [address] | | + + + + + Care Team Providers + +------+ + | Care Director Meetings Name | Role | Phone | + [...] | | | [address] | [address] [place], [place] | | | | | [place], [place] | [address] | | | | | [address] | | | | | | [phone] | | | +--------+ + + + [...] | A Obed: 1.09 m/s MV Dec Sibley: 3.29 m/s2 MV DecT: 238.09 ms | [...] TR Vmax: 2.69 m/s | | | Manager Of International: DBS Authenticated by: BUCK SOTO MD Report | | | Date/Time: -- 36_[id number]_17:20:29 | | + + + + + [...] | 4.30 cmLVPWd: 1.07 cmLVOT Area: 3.11 eg6NLCE Diam: 1.99 cm%FS: 46.50 %EF(Teich): | | [...] mlLAESV Index (A-L): 19.79 ml/m2LAAs A2C: 12.56 vz7DYPCY | | A-L A2C: 31.66 mlLALs A2C: 4.23 cmLAAs A4C: 13.43 jl8JCTJI A-L A4C: 33.50 | | mlLALs A4C: 4.57 cmRAAs: 11.82 fh4RAROK A-L: 26.21 mlRAESV MOD: 26.46 mlRALs: | | 4.52 cmTAPSE: 1.59 cmAV maxP.72 mmHgAV meanP.52 mmHgAV Vmax: 1.63 m/Shreyas | | Vmean: 1.09 m/Shreyas VTI: 32.89 cmAVA Vmax: 2.19 cm2AVA (VTI): 1.98 gr5FUED | | (Vmax): 0.00 cm2/m2AVAI (VTI): 0.00 cm2/m2LVOT maxP.34 mmHgLVOT meanP.29 | | mmHgLVSI Dopp: 38.17 ml/m2LVSV Dopp: 65.27 mlLVOT Vmax: 1.15 m/sLVOT Vmean: | | 0.68 m/sLVOT VTI: 20.94 cmMV A Obed: 1.09 m/sMV Dec Sibley: 3.29 m/s2MV DecT: | | 238.09 msMV E Obed: 0.78 m/sMV E/A Ratio: 0.71MV PHT: 69.04 msMVA By PHT: 3.18 | | mx7Mawkpo e': 0.05 m/sSeptal E/e': 15.64Lateral e': 0.06 m/sLateral E/e': | | 11.34RAP: 5 mmHgRVSP: 33.95 mmHgTR maxP.95 mmHgTR Vmax: 2.69 m/s | | Manager Of International: DBSAuthenticated by: Armen ROY Date/Time: -- | | 80_[id number]_68:20:29 IMPRESSION: 1. Overall left ventricular systolic function [...] A Obed: 1.09 m/s | |MV Dec Sibley: 3.29 m/s2 | |MV DecT: 238.09 ms [...] |TR Vmax: 2.69 m/s | | | |Manager Of International: DBS | |Authenticated by: BUCK SOTO MD | |Report Date/Time: 52_[id number]_25:20:29 | | | |IMPRESSION: | |1. Overall [...]
--- OUTSIDE RECORDS SUMMARY | ~2019-10-27 | XMS | Encounter Summary ---
Demographics + + + | Address | [address] | | | [place] [address] | + + + | Home Phone [...] [place], | | | | | [place] [address] | | + + + + + | Kellen Briones | ECON | [place] | | | | | [address] | | + + + + + Care Team Providers + +------+ + | Care Suspect Artist Supervisor Name | Role | Phone | + +------+ + | Barb Marte | [place]ANG | | + +------+ + Encounter Details +--------+ + + + + | Date | Type | Department | Care Team | Description | +--------+ + + + + | 07/08/ | Preadmit | [facility] | Monster White MD | Preop testing | | 2019 | Visit | CENTER PREADMIT | [address] | (Primary Dx); 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[place], [place]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 | | | | [address] [place], [place] | [address] | without complication | | | | [address] | | ([facility]); Lumbar | | | | [phone] | | degenerative disc | | | [...] for the 07/08/19 encounter (Preadmit Visit) with [facility] ROOM 2 Medication Sig Instructions albuterol (VENTOLIN [...] lots of fluids and take an o qcr-lcg-nhzhesc stool softener (with or without laxatives) if [...] [facility] [address] [place] [phone] documented in this encounter Plan of Treatment [...] | | | | PST | complication ([facility]) | results section. | | | [...] | | | | PST | complication ([facility]) | results section. | | | [...] | | | | PST | complication ([facility]) | results section. | | | [...] | | | | PST | complication ([facility]) | results section. | | | [...] | | | | PST | complication ([facility]) | results section. | | | [...] [facility] | | | | performed at [facility];[address] | | LABORATORY | | | | [address];[place], [place] | | | | | | [address] | | | | + + + [...] [facility] | [address] | [place] [address] | [phone] | + + + + + Type [...] Antibody | Testing performed at | | [facility] | | | Screen | [facility];[address] | | LABORATORY | | | | [address];[place] [address] | | | | + + + + + + + + | Specimen | + + | Blood | + + + + + + + | Performing | Address | City/State/Zipcode | Phone Number | | Organization | | | | + + + + + | [facility] | [address] | [place] [address] | [phone] | + + + + + CBC [...] | | | Absolute | performed at [facility], [address] | [address]L | LABORATORY | | | | Tamanna Jimenez, | | | | | | [place] [address] | | | | + + + + + + + + | Specimen | + + | Blood | + + + + + + + | Performing | Address | City/State/Zipcode | Phone Number | | Organization | | | | + + + + + | [facility] | [address] | [place] [address] | [phone] | + + + + + Comprehensive [...] 27 (L)Comment: GFR <60: | >60 | [facility] | | | GFR | [...] | | | | | performed at [facility], [address] | | | | | | [facility], | | | | | | [place] [address] | | | | + + + + + + + + | Specimen | + + | Blood | + + + + + + + | Performing | Address | City/State/Zipcode | Phone Number | | Organization | | | | + + + + + | [facility] | [address] | [place] [address] | [phone] | + + + + + Protime INR (07/08/2019 4:39 PM PST) + + + + + + | Component | Value | Ref Range | Performed | Pathologist | | | | | At | Signature | + + + + + + | INR | 1.0Comment: REFERENCE | | [facility] | | | | RANGE:0.9 [...] | | | | | performed at [facility];[address] | | | | | | [address] [facility];[place], [place] | | | | | | [address] | | | | + + + + + + + + | Specimen | + + | Blood | + + + + + + + | Performing | Address | City/State/Zipcode | Phone Number | | Organization | | | | + + + + + | [facility] | [address] | [place] [address] | [phone] | + + + + + PTT (07/08/2019 4:39 PM PST) + + + + + + | Component | Value | Ref Range | Performed | Pathologist | | | | | At | Signature | + + + + + + | PTT | 30Comment: Testing | 23 - 32 seconds | [facility] | | | | performed at [facility];[address] | | LABORATORY | | | | [address];[place], [place] | | | | | | [address] | | | | + + + + + + + + | Specimen | + + | Blood | + + + + + + + | Performing | Address | City/State/Zipcode | Phone Number | | Organization | | | | + + + + + | [facility] | [address] | [place] [address] | [phone] | + + + + + Hemoglobin A1C (07/08/2019 4:39 PM PST) + + + + + + | Component | Value | Ref Range | Performed | Pathologist | | | | | At | Signature | + + + + + + | Hemoglobin | 6.3 (H)Comment: HbA1c | 4.0 - 6.0 % | [facility] | | | A1c | [...] | 134Comment: Estimated | <154 mg/dL | [facility] | | | Average | Average Glucose | | LABORATORY | | | Glucose | calculated from | | | | | | hemoglobin A1c by use of | | | | | | the ADArecommended | | | | | | formula.Testing | | | | | | performed at [facility], [address] | | | | | | [facility], | | | | | | [place] [address] | | | | + + + + + + + + | Specimen | + + | Blood | + + + + + + + | Performing | Address | City/State/Zipcode | Phone Number | | Organization | | | | + + + + + | [facility] | [address] | [place] [address] | [phone] | + + + + + XR [...]
--- OUTSIDE RECORDS SUMMARY | ~2019-10-27 | XMS | Encounter Summary ---
Demographics + + + | Address | [address] | | | [place] [address] | + + + | Home Phone [...] [place], | | | | | [place] [address] | | + + + + + | Keleln Briones | ECON | [place], [place] | | | | | [address] | | + + + + + Care Team Providers + +------+ + | Care Supervising Producer Name | Role | Phone | [...] NEUROSURGERY [address] | F, [address] | Dx) | | | | [address] | [place] | | | | | [place], [place] | [address] | | | | | [address] | [phone] | | | | | [phone] | | | +--------+ + + + [...]
--- OUTSIDE RECORDS SUMMARY | ~2019-10-27 | XMS | Encounter Summary ---
Demographics + + + | Address | [address] | | | [place] [address] | + + + | Home Phone [...] [place], | | | | | [place] [address] | | + + + + + | Kellen Briones | ECON | [place], [place] | | | | | [address] | | + + + + + Care Team Providers + +------+ + | Care Advanced Manufacturing Consultant Name | Role | Phone | [...] | | | [place], [place] | [place] [address] | lumbar region with | | | | [address] | [phone] | bogyuxdazbupa-V9-H1 | | | | [phone] | | level moderately | | | [...] of the procedure you must provide a patrol driver to take you home. For all [...] has no apparent deficits with short or soil technician memory. She has appropriate fund of knowledge [...] 2. Spinal stenosis of lumbar region with zjiekxcrrlkxf-I9-R5 level moderately severe 3. DDD (degenerative disc [...] be performed by me in the near [facility] re. 2. I did not [...] radiculopathy ICD-10 Code M54.16 Clementine Phoenix | [facility] | | Annabella presents to the fluoroscopy suite for [facility] | | fluoroscopically-guided bilateral L5-S1 transforaminal epidural [...] ST. | [address] | [place], [place] | [phone] | | [facility] | | [address] | | | - IMAGING | | | | + + + + + documented in this encounter Visit Diagnoses + + | Diagnosis | + + | Lumbar radiculopathy - Primary Thoracic or lumbosacral neuritis or radiculitis, | | unspecified | + + | Spinal stenosis of lumbar region with fejoabozyvvdu-F0-B9 level moderately severe | | Spinal stenosis, [...]
--- OUTSIDE RECORDS SUMMARY | ~2019-10-27 | XMS | Encounter Summary ---
Demographics + + + | Address | [address] | | | [place] [address] | + + + | Home Phone [...] [place], | | | | | [place] [address] | | + + + + + | Kellen Briones | ECON | [place], [place] | | | | | [address] | | + + + + + Care Team Providers + +------+ + | Care Coronary Clinical Specialist Name | Role | Phone | [...] + | 11/05/ | Telephone | [facility] | Irving Becerril, | Imaging Only | | 2017 | | NEUROSURGERY [address] | DO [address] | | | | | [address] | [address] [place], [place] | | | | | [place], [place] | [id number] | | | | | [address] | | | | | | [phone] | | | +--------+ + + + [...]
--- OUTSIDE RECORDS SUMMARY | ~2019-10-27 | XMS | Encounter Summary ---
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 For all [...] had actually been seeing Dr. Jordan in [place] for the neck issues and was scheduled [...] 8. Spinal stenosis of lumbar region with yamyyeuwildlp-X4-N9 level moderately severe 9. Facet arthritis of [...] of the lumbar spine at [facility]. 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
--- OUTSIDE RECORDS SUMMARY | ~2019-10-27 | XMS | Encounter Summary ---
Demographics + + + | Address | [address] | | | [place] [address] | + + + | Home Phone [...] [place], | | | | | [place] [address] | | + + + + + | Kellen Briones | ECON | [place], [place] | | | | | [address] | | + + + + + Care Team Providers + +------+ + | Care Chicken Catcher Name | Role | Phone | + [...] + + | 04/05/ | Telephone | [facility] | Irving Becerril, | Medication Question | | 2015 | | NEUROSURGERY [address] | DO [address] | | | | | [address] [facility] [address] | [address] [place], [place] | | | | | [place], [place] | [id number] | | | | | [address] | | | | | | [phone] | | | +--------+ + + + [...]
--- OUTSIDE RECORDS SUMMARY | ~2019-10-27 | XMS | Encounter Summary ---
Demographics + + + | Address | [address] | | | [place] [address] | + + + | Home Phone [...] [place], | | | | | [place] [address] | | + + + + + | Kellen Briones | ECON | [place], [place] | | | | | [address] | | + + + + + Care Team Providers + +------+ + | Care Manager Unit Name | Role | Phone | + [...] | | | | lumbar | [place] [address] | [address] Phone: | | | | | region DDD | Phone: | [phone] | | | | | (degenerativ | [phone] | Fax: | | | | | e disc | Fax: | [phone] | | | | | disease), | [phone] | | | | | | lumbar [...] + + | 12/08/ | Office | [facility] | Mono Diaz, | Lumbar radiculopathy | | 2019 | Visit | PHYSIATRY [address] | PA-C [address] | (Primary Dx); | | | | [address] | [address] [place] | Spondylolisthesis of | | | | [place] [facility], [place] | [place] [address] | lumbar region; DDD | | | | [address] | [phone] | (degenerative disc | | | | [phone] | | disease), lumbar; | | | | | | Spinal stenosis of | | | | | | lumbar region with | | | | | | abesentygdxbq-H4-W7 | | | | | | level [...] disk, and irritate nerves. Date Last Reviewed: 11/01/201719996502-1082 [employer]. [address] [place] [address], [place] [address]. All righ ts reserved. This information is not intended as a substitute for professional medical care. Always follow your healthcare professional's instructions. documented in this encounter Progress Notes Mono Diaz PA-C - 12/08/2018 2:40 PM PDTFormatting of this note might be different fro m the original. Mono Diaz PA-C [address] [facility] [place], [address] [place] [address] FAX: CHIEF COMPLAINT: Chief Complaint Patient presents [...] apparent deficits with short or intermediate memory. The cranial nerves appear grossly intact. [...] lumbar Spinal stenosis of lumbar region with oqnmkyxkjsmxv-W5-N7 level moderately severe PLAN: 1) Today we [...] PT (multiple sessions over the years) and resident care manager rn. Unfortunately Clementine Winchester continues to have [...] up appt with cardiology later this m [facility]. I spent 30 minutes in [...] with | | | | | | kdnktfahfocsy-V7-X8 | | | | | | level [...] | Spinal stenosis of lumbar region with rjxujrbisjfuz-D1-P3 level moderately severe | | Spinal stenosis, lumbar region, without neurogenic claudication | + + documented in this encounter
--- OUTSIDE RECORDS SUMMARY | ~2019-10-27 | XMS | Encounter Summary ---
Demographics + + + | Address | [address] | | | [place] [address] | + + + | Home Phone [...] [place], | | | | | [place] [address] | | + + + + + | Kellen Briones | ECON | [place], [place] | | | | | [address] | | + + + + + Care Team Providers + +------+ + | Care Radiation Therapy Technologist Name | Role | Phone | [...] | | | | | | [place] | | | | | | [...] + + | 03/30/ | Hospital | [facility] | Irving Becerril, | | | 2016 - | Encounter | MED CTR SURGICAL | DO [address] | | | | | [address] | [address] | | | 03/31/ | | [place] [address] | [id number] | | | 2015 | | [phone] | | | +--------+ + + + [...] Admitting Physician: Irving Becerril DO [facility] Discharging Physician: NARESH Valverde Primary Discharge Dx: <principal problem not specified> Secondary Discharge Dx: Patient Active Problem List Diagnosis Cervical stenosis of spinal canal Spondylolisthesis of cervical region Arthritis Leg pain, bilateral Lumbago Trochanteric bursitis of right hip Right hip pain Stroke of unknown etiology Coronary artery disease Diabetes mellitus - ORAL Control Hypertension Stroke Syncope and collapse Cancer Hyperlipidemia [place] (myocardial infarction) GERD (gastroesophageal reflux disease) Asthma Spondylolisthesis of lumbar region Lumbar radiculopathy DDD (degenerative disc disease), lumbar Spinal stenosis of lumbar region with ksvglcagxxufd-I4-M2 level moderately severe Facet arthritis of lumbar region-Most severe at L4-L5,L5-S1 Snoring Chronic narcotic use Neck pain on right side Facet arthritis of cervical region DDD (degenerative disc disease), cervical H/O Syncope & collape H/O CVA/stroke H/O [place] (myocardial infarction) H/O Breast cancer - Right [...] the patient was admitted to [facility] and underwent a C3-C7 fusion. Patient was [...] signed by: Chavo Jacob, 03/31/2016 7:[address] [facility] documented in this encounter Discharge Instructions Instructions RicciMerle hawk Janet, KNIFE GRINDER - 03/31/2016Discharge Instructions for Cervical Fusion You [...] t raise your hands over your head fla0zgxv(s)after your surgery. Don t drive until your [...] this your 1 month post op appointment. [phone] [employer]. [address] [place] [address]. All righ ts reserved. This information is not intended as a substitute for professional medical care. Always follow your healthcare professional's instructions. If you would like Home Health: Call [facility] at [phone] documented in this encounter Medications at Time [...] might be different f rom the original. [facility] NEUROSURGERY PROGRESS NOTE Pt. Name/Age/: Cleemntine Phoenix Kurtkj 75 y.o. 1940 Post operative [...] signed by: Chavo Jacob, 03/31/2016 7:48 [facility] documented in this encounter Plan of Treatment [...] [address] | [place] | [phone] | | [facility] | | [address] | | | - LABORATORY | | [...] + | [address] | [address] | [place] | [phone] | | [facility] | | [address] | | | - LABORATORY | | [...] | [facility] | | [address] | | | - BLOOD BANK | [...]
--- OUTSIDE RECORDS SUMMARY | ~2019-10-27 | XMS | Encounter Summary ---
Demographics + + + | Address | [address] | | | [place] [address] | + + + | Home Phone [...] [place], | | | | | [place] [address] | | + + + + + | Kellen Briones | ECON | [place] | | | | | [address] | | + + + + + Care Team Providers + +------+ + | Care Music Historian Name | Role | Phone | + +------+ + | Barb Marte | PCP | | + +------+ + Encounter Details +--------+ + + + + | Date | Type | Department | Care Team | Description | +--------+ + + + + | 01/31/ | Hospital | [facility] | Conversion | Diagnosis unknown | | 2018 | Encounter | CONVERSION DEP [address] | Transaction, | | | | | [address] | Provider Unknown | | | | | [place] | [phone] | | | | | [address] | | | | | | [phone] | | | +--------+ + + + [...]
--- OUTSIDE RECORDS SUMMARY | ~2019-10-27 | XMS | Encounter Summary ---
Demographics + + + | Address | [address] | | | [place] [address] | + + + | Home Phone [...] [place], | | | | | [place] [address] | | + + + + + | Kellen Briones | ECON | [place], [place] | | | | | [address] | | + + + + + Care Team Providers + +------+ + | Care Icu Rn Name | Role | Phone | [...] | | | | | claudication | [place], [place] | [address] | | | | | Procedures | [address] | Phone: | | | | | MRI Lumbar | Phone: | [phone] | | | | | Spine wo | [phone] | Fax: | | | | | Contrast | Fax: | [phone] | | | | | | [phone] | | +--------+--------+ + + + + [...] | | | | | claudication | [place] | [address] | | | | | Procedures | [address] | Phone: | | | | | CT Lumbar | Phone: | [phone] | | | | | Spine wo | [phone] | Fax: | | | | | Contrast | Fax: | [phone] | | | | | | [phone] | | +--------+--------+ + + + + [...] | | | without | [place], | [place], [place] | | | |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 | [place] [address] | [address] | | | | | claudication | Phone: | Phone: | | | | | lumbar | [phone] | [phone] | | | | | | Fax: | Fax: | | | | | | [phone] | [phone] | + +--------+ + + + + Encounter Details +--------+---------+ + + + | Date | Type | Department | Care Team | Description | +--------+---------+ + + + | 03/19/ | Office | [facility] | Monster White MD | Lumbar stenosis with | | 2019 | Visit | [facility] | [address]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 | | | | ORTHOPEDIC SPINE | [address] | claudication | | | | [address] [place] | [phone] | (Primary Dx); | | | | [place] | | Spondylolisthesis of | | | | [address] | | lumbar region | | | | [phone] | | | +--------+---------+ + + + [...] findings 01/2018 Social History Occupational History 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 Employer: [employer] Tobacco Use Smoking status: [...] reflux disease) Hyperlipidemia Hypertension Lumbar radiculopathy 07/23/2012 [place] (myocardial infarction) (HCC) Neck pain on right side 05/13/2013 Oxygen dependent 2 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 Snoring Spinal stenosis of lumbar region with ajbcgsqzrsosl-U2-U9 level moderately severe 2012 Past Surgical History: Procedure Laterality Date BELPHAROPTOSIS REPAIR 2008 bilateral bone spur left foot BREAST RECONSTRUCTION 1054-2742 About 10 surgeries CARPAL TUNNEL RELEASE Bilateral CERVICAL SPINE SURGERY Anterior 03/30/2016 Procedure: C3-4, C4-5, C5-6, C6-7 Anterior Cervical Discectomy w/ Fusion and Plating; Bryan geon: Irving Becerril, DO; Location: [facility] MAIN OR CORONARY ARTERY BYPASS [...] flexors 5 5 Hand intrinsics 5 5 Rn Compliance 5 5 Hip flexors 5 5 Quadriceps [...] Note: We spent approximately 50 minutes in enih-tc-xuop time of which greater than 50% was [...] effects the | | right side at L1-F8xqmld it is severe and bilaterally at L5-S1 [...]
--- OUTSIDE RECORDS SUMMARY | ~2019-10-27 | XMS | Encounter Summary ---
Demographics + + + | Address | [address] | | | [place] [address] | + + + | Home Phone [...] [place], | | | | | [place] [address] | | + + + + + | Kellen Briones | ECON | [place], [place] | | | | | [address] | | + + + + + Care Team Providers + +------+ + | Care Hydraulic Design Engineer Name | Role | Phone | [...] | Lumbar | [place]issa, | [address] | | | | | radiculopath | Tk Monreal MD | [place], | | | | | y | [address] | [place] | | | | | Procedures | [place] | [address] | | | | | [place] INJECT | [facility], [place] | Phone: | | | | | ANES/STEROID | [address] | [phone] | | | | | [place] | Phone: | Fax: | | | | | LUMBAR/SACRA | [phone] | [phone] | | | | | L W IMG | Fax: | | | | | | GUIDE ,1 | [phone] | | | | | | LEVEL [...] + + | 06/27/ | Hospital | [facility] | Bogdanowicz, | Lumbar | | 2017 | Encounter | MED CTR XRAY [address] | [address] | radiculopathy; | | | | [place] | [facility], [address] | Spinal stenosis of | | | | [place] [address] | [place] [address] | lumbar region with | | | | [phone] | [phone] | wgyncnhuakvda-J1-W8 | | | | | | level moderately | | | | | Nitriles Lab Technician, [place] | severe; DDD | | | | | [place] | (degenerative disc | | | | [...] with | | | | | | yelddlpjjksum-R1-F4 | | | | | | level [...] Lumbar radiculopathy ICD-10 Code M54.16 Clementine | [facility] | | Lizett Winchester presents to the fluoroscopy suite for [facility] | | fluoroscopically-guided bilateral L5-S1 transforaminal [...] + + + + + | [address] | [address] | [place] | [phone] | | [facility] | | [address] | | | - IMAGING | | | | + + + + + documented in this encounter Visit Diagnoses + + | Diagnosis | + + | Lumbar radiculopathy Thoracic or lumbosacral neuritis or radiculitis, unspecified | + + | Spinal stenosis of lumbar region with qrmosigkxmzsz-J7-J3 level moderately severe | | Spinal stenosis, [...] | | | | | Other, ONCE, 06/27/16 at | | PM PST | | [...] | | | | | Other, ONCE, 06/27/16 at 1515, | | PM PST | [...]
--- OUTSIDE RECORDS SUMMARY | ~2019-10-27 | XMS | Encounter Summary ---
Demographics + + + | Address | [address] | | | [place] [address] | + + + | Home Phone [...] [place], | | | | | [place] [address] | | + + + + + | Kellen Briones | ECON | [place] | | | | | [address] | | + + + + + Care Team Providers + +------+ + | Care Nitroglycerin Separator Operator Name | Role | Phone | + +------+ + | Barb Marte | PCP | | + +------+ + Encounter Details +--------+ + + + + | Date | Type | Department | Care Team | Description | +--------+ + + + + | 07/08/ | Clinical | [facility] | | Lumbar degenerative | | 2020 | Support | NEUROSURGERY [address] | | disc disease; | | | | [address] | | Spondylolisthesis of | | | | [place], [place] | | lumbar region | | | | [address] | | | | | | [phone] | | | +--------+ + + + [...] concerns feel free to call us at [phone]. documented in this encounter Progress Notes Marialuisa [...] given to patient. Patient was sent to [facility] for their scheduled pre-admit appointment, anesthesia [...]
--- OUTSIDE RECORDS SUMMARY | ~2019-10-27 | XMS | Encounter Summary ---
Demographics + + + | Address | [address] | | | [place] [address] | + + + | Home Phone [...] [place], | | | | | [place] [address] | | + + + + + | Kellen Briones | ECON | [place], [place] | | | | | [address] | | + + + + + Care Team Providers + +------+ + | Care Assessment Director Name | Role | Phone | [...] | | n | spinal canal | [address] | [address] [place] | | | | | | [place], | [place], [place] | | | | | Spondylolist | [place] [address] | [address] Phone: | | | | | hesis of | Phone: | [phone] | | | | | cervical | [phone] | Fax: | | | | | region | [phone] Fax: | [phone] | | | | | Right hip | | | | | | | pain | [phone] | | | | | | Trochanteric [...] | | | [place] | [address] | disease), lumbar; | | | | [address] | | Spondylolisthesis of | | | | [phone] | | lumbar region; | | | | | | Spinal stenosis of | | | | | | lumbar region with | | | | | | gefpmrkieejzx-Q8-L3 | | | | | | level [...] - 07/23/2012 11:07 AM PSTFollow-up at the [facility] hirty minutes before your scheduled procedure [...] our off ice. Please also provide a local [place] truck driver to take you home on [...] Stroke Syncope and collapse Cancer Breast Hyperlipidemia [place] (myocardial infarction) GERD (gastroesophageal reflux [...] 4. Spinal stenosis of lumbar region with hlsbmpxpzdjhg-A0-F2 level moderately severe 5. Facet arthritis of [...] issue. Reportedly she has already seen a cider press operator and nothing abnormal w as found. She [...] | Spinal stenosis of lumbar region with uttkiugjtnpyy-Y0-L2 level moderately severe | | Spinal stenosis, [...]
--- OUTSIDE RECORDS SUMMARY | ~2019-10-27 | XMS | Encounter Summary ---
Demographics + + + | Address | [address] | | | [place] [address] | + + + | Home Phone [...] [place], | | | | | [place] [address] | | + + + + + | Kellen Briones | ECON | [place], [place] | | | | | [address] | | + + + + + Care Team Providers + +------+ + | Care Corporation Officer Name | Role | Phone | [...] | | | | | claudication | [place], [place] | [address] | | | | | Procedures | [address] | Phone: | | | | | MRI Lumbar | Phone: | [phone] | | | | | Spine wo | [phone] | Fax: | | | | | Contrast | Fax: | [phone] | | | | | | [phone] | | +--------+--------+ + + + + Encounter Details +--------+ + + + + | Date | Type | Department | Care Team | Description | +--------+ + + + + | 04/09/ | Hospital | [facility] | Monster White MD | | | 2019 | Encounter | MED CTR MRI [address] | [address] | | | | | [place], | [address] [place] | | | | | [place] [address] | [address] | | | | | [phone] | | | +--------+ + + + [...] effects the | | right side at L1-P4savms it is severe and bilaterally at L5-S1 [...]
--- OUTSIDE RECORDS SUMMARY | ~2019-10-27 | XMS | Encounter Summary ---
Demographics + + + | Address | [address] | | | [place] [address] | + + + | Home Phone [...] [place], | | | | | [place] [address] | | + + + + + | Kellen Briones | ECON | [place], [place] | | | | | [address] | | + + + + + Care Team Providers + +------+ + | Care Manager Interventional Name | Role | Phone | + [...] | Lumbar | Marissa, | [address] | | | | | radiculopath | Tk Monreal MD | [place], | | | | | y | [address] | [place] | | | | | Procedures | [place] | [address] | | | | | [place] INJECT | [facility], [place] | Phone: | | | | | ANES/STEROID | [address] | [phone] | | | | | [place] | Phone: | Fax: | | | | | LUMBAR/SACRA | [phone] | [phone] | | | | | L W IMG | Fax: | | | | | | GUIDE ,1 | [phone] | | | | | | LEVEL [...] + + | 06/27/ | Hospital | [facility] | Bogdanowicz, | Lumbar | | 2017 | Encounter | MED CTR XRAY [address] | [address] | radiculopathy; | | | | [place] | [facility], [address] | Spinal stenosis of | | | | [place] [address] | [place] [address] | lumbar region with | | | | [phone] | [phone] | jptpqexogfsfu-J0-O8 | | | | | | level moderately | | | | | City Controller, [place] | severe; DDD | | | [...] with | | | | | | uuuxrdcixoegn-Q2-M0 | | | | | | level [...] radiculopathy ICD-10 Code M54.16 Clementine | [facility] | | Lizett Winchester presents to the fluoroscopy suite for [facility] | | fluoroscopically-guided bilateral L5-S1 transforaminal epidural [...] [address] | [place] | [phone] | | [facility] | | [address] | | | - IMAGING | | | | + + + + + documented in this encounter Visit Diagnoses + + | Diagnosis | + + | Lumbar radiculopathy Thoracic or lumbosacral neuritis or radiculitis, unspecified | + + | Spinal stenosis of lumbar region with yqdubheeflrue-I6-L7 level moderately severe | | Spinal stenosis, [...]
--- OUTSIDE RECORDS SUMMARY | ~2019-10-27 | XMS | Encounter Summary ---
Demographics + + + | Address | [address] | | | [place] [address] | + + + | Home Phone [...] [place], | | | | | [place] [address] | | + + + + + | Kellen Briones | ECON | [place], [place] | | | | | [address] | | + + + + + Care Team Providers + +------+ + | Care Driver Supervisor Name | Role | Phone | [...] [address] | [address] [place], [place] | (Primary Dx); Status | | | | [place], [place] | [address] | post cervical | | | | [address] | | spinal fusion | | | | [phone] | | | +--------+ + + + [...] ST. | [address] | [place] | [phone] | | [facility] | | [address] | | | - IMAGING | | | | + + + + + documented in this encounter Visit Diagnoses + + | Diagnosis | + + | Spondylolisthesis of cervical region - Primary Acquired spondylolisthesis | + + | Status post cervical spinal fusion Arthrodesis status | + + documented in this encounter"
--- OUTSIDE RECORDS SUMMARY | ~2019-10-27 | XMS | Encounter Summary ---
Demographics + + + | Address | [address] | | | [place] [address] | + + + | Home Phone [...] [place], | | | | | [place] [address] | | + + + + + | Kellen Briones | ECON | [place] | | | | | [address] | | + + + + + Care Team Providers + +------+ + | Care Nutritional Health Coach Name | Role | Phone | [...] | | | | | [address] [facility] | [place] [address] | | | | | [place] [address] | | | | | | [phone] | | | +--------+ + + + [...]
--- OUTSIDE RECORDS SUMMARY | ~2019-10-27 | XMS | Encounter Summary ---
Demographics + + + | Address | [address] | | | [place] [address] | + + + | Home Phone [...] [place], | | | | | [place] [address] | | + + + + + | Kellen Briones | ECON | [place] | | | | | [address] | | + + + + + Care Team Providers + +------+ + | Care Highway Design Engineer Name | Role | Phone | + +------+ + | Barb Marte | PCP | | + +------+ + Encounter Details +--------+ + + + + | Date | Type | Department | Care Team | Description | +--------+ + + + + | 01/31/ | Hospital | [facility] | Conversion | Diagnosis unknown | | 2018 | Encounter | CONVERSION DEP [address] | Transaction, | | | | | [address] | Provider Unknown | | | | | [place] | [phone] | | | | | [address] | | | | | | [phone] | | | +--------+ + + + [...]
--- OUTSIDE RECORDS SUMMARY | ~2019-10-27 | XMS | Encounter Summary ---
Demographics + + + | Address | [address] | | | [place] [address] | + + + | Home Phone [...] [place], | | | | | [place] [address] | | + + + + + | Kellen Briones | ECON | [place], [place] | | | | | [address] | | + + + + + Care Team Providers + +------+ + | Care High Pressure Kettle Operator Name | Role | Phone | [...] + + | 02/10/ | Office | [facility] | Tk Ann | Lumbar radiculopathy | | 2012 | Visit | PHYSIATRY [address] | T, [address] | (Primary Dx); DDD | | | | [address] | [address] [place] | (degenerative disc | | | | [place], [place] | [address] | disease), lumbar; | | | | [address] | | Spondylolisthesis of | | | | [phone] | | lumbar region; | | | | | | Spinal stenosis of | | | | | | lumbar region with | | | | | | akqxqfqwnkinv-D1-E4 | | | | | | level moderately | | | | | | severe; Facet | | | | | | arthritis of lumbar | | | | | | region-Most severe | | | | | | at L4-L5,L5-S1; AR | | | | | | (myocardial | | | | | | infarction) ([facility]); | | | | | | Cancer ([facility]); | | | | | | Diabetes mellitus | | | | | | ([facility]); Coronary | | | | [...] our off ice. Please also provide a motor coach driver to take you home on the [...] has actually been seeing Dr. Jordan in [facility] the neck issues and will be receiving [...] 4. Spinal stenosis of lumbar region with qnvwnpcemhhni-F7-K2 level moderately severe 5. Facet arthritis of [...] of t he lumbar spine at [facility]. I will request these be placed on I-site. She h as previously seen Dr. Real and has been in contact with Dr. Becerril's office in the [facility]. I would be happy to provide [...] | Spinal stenosis of lumbar region with kjdfyqjadzxuf-T9-X6 level moderately severe | | Spinal stenosis, lumbar region, without neurogenic claudication | + + | Facet arthritis of lumbar region-Most severe at L4-L5,L5-S1 Lumbosacral spondylosis | | without myelopathy | + + | AR (myocardial infarction) (HCC) Acute myocardial infarction, unspecified [...] of unspecified type of vessel, | | [place] or graft | + + | Trochanteric bursitis of right hip Enthesopathy of hip region | + + | Cervical stenosis of spinal canal Spinal stenosis in cervical region | + + | Spondylolisthesis of cervical region Acquired spondylolisthesis | + + documented in this encounter
--- OUTSIDE RECORDS SUMMARY | ~2019-10-27 | XMS | Encounter Summary ---
Demographics + + + | Address | [address] | | | [place] [address] | + + + | Home Phone [...] [place], | | | | | [place] [address] | | + + + + + | Kellen Briones | ECON | [place], [place] | | | | | [address] | | + + + + + Care Team Providers + +------+ + | Care Head Start Director Name | Role | Phone | [...] | | | DRIVE [address] | [address] | | | | | | D | [place], | | | | | | [place], | [place] [address] | | | | | | [place] [address] | Phone: | | | | | | Phone: | [phone] | | | | | | [phone] | Fax: | | | | | | Fax: | [phone] | | | | | | [phone] | | +--------+ + + + + + Encounter Details +--------+---------+ + + + | Date | Type | Department | Care Team | Description | +--------+---------+ + + + | 09/16/ | Office | [facility] | Bobby Grier | Snoring (Primary | | 2012 | Visit | SLEEP DISORDER [address] | MD [address] | Dx); 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 Gely Easley [facility] [place] [address] Ref: Patrick Gaffney MD CC: Chief Complaint [...] and back pain she was started on [place], baclofen, flexeril, and zanaflex in February of 2012 according to the patient and her daughter (the EMR supports this too). Currently she is on the zanaflex and [place]. She had been started on Celexa in November of 2011 for depression. Wellbutrin was started in July of 2010 after heart surgery. She currently takes 2 [place] tabs tid. She started having spells of [...] of 20-30 minutes. She often takes a [place] at about 8pm and rarely after 10pm. [...] Hypertension; Stroke; Syncope and collapse; Cancer; Hyperlipidemia; PR (myocardial inf arction); GERD (gastroesophageal reflux disease); Asthma; Arthritis; Lumbar radiculopathy (); DDD (degenerative disc disease), lumbar (07/23/2012); Spinal stenosis of lumbar re gion with kveertxlmcckk-D4-I5 level moderately severe (07/23/2012); Facet arthritis of lumbar region-Most severe at L4-L5,L5-S1 (07/23/2012); and Snoring. 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 I've discussed this in detail with [...] [facility] CC: Emerita Draper Taye, Bobby Booker Jr., MD - 09/16/2012 10:17 AM PDTFormatting of this note might be different from the origin al. 09/16/12 1000 Thompson Depression Inventory-II Depression Score 5 - Minimal depression Insomnia Severity Index Insomnia Severity Index 7 Fisher Sleepiness Scale Sitting and reading 0 Watching [...]
--- OUTSIDE RECORDS SUMMARY | ~2019-10-27 | XMS | Encounter Summary ---
Demographics + + + | Address | [address] | | | [place] [address] | + + + | Home Phone [...] [place], | | | | | [place] [address] | | + + + + + | Kellen Briones | ECON | [place] | | | | | [address] | | + + + + + Care Team Providers + +------+ + | Care Complaint Inspector Name | Role | Phone | [...] | | | | ORTHOPEDIC SPINE | [facility] BRAD [address] | Medication Question | | | | [address] | [place] [address] | | | | | [place], [place] | [phone] | | | | | [address] | | | | | | [phone] | | | +--------+ + + + [...]
--- OUTSIDE RECORDS SUMMARY | ~2019-10-27 | XMS | Encounter Summary ---
Demographics + + + | Address | [address] | | | [place] [address] | + + + | Home Phone [...] [place], | | | | | [place] [address] | | + + + + + | Kellen Briones | ECON | [place], [place] | | | | | [address] | | + + + + + Care Team Providers + +------+ + | Care Arresting Gear Operator Name | Role | Phone | [...] + + | 11/04/ | Office | [facility] | Patrick Gaffney MD [address] | Transient loss of | | 2012 | [facility] | [address] | consciousness | | | | [address] [facility], | [address] [place], | (Primary Dx) | | | | [address] [place] | [place] [address] | | | | | [place] [address] | [phone] | | | | | [phone] | | | +--------+---------+ + + + [...] Nancy Rust RN - 09/2012 1:28 PM [id number]: BP recheck 110/70. documented in this e ncounter Plan of Treatment Not on filedocumented as of this encounter Visit Diagnoses + + | Diagnosis | + + | Transient loss of consciousness - Primary Syncope and collapse | + + documented in this encounter"
--- OUTSIDE RECORDS SUMMARY | ~2019-10-27 | XMS | Encounter Summary ---
Demographics + + + | Address | [address] | | | [place] [address] | + + + | Home Phone [...] [place], | | | | | [place] [address] | | + + + + + | Kellen Briones | ECON | [place] | | | | | [address] | | + + + + + Care Team Providers + +------+ + | Care Poultry Husbandman Name | Role | Phone | + +------+ + | Barb Marte | THANG | | + +------+ + Encounter Details +--------+ + + + + | Date | Type | Department | Care Team | Description | +--------+ + + + + | 07/08/ | Hospital | [facility] | Monster White MD | | | 2020 | Encounter | [facility] | [address] | | | | | [address] | [place], [place] | | | | | [place], [place] | [address] | | | | | [address] | | | | | | [phone] | | | +--------+ + + + [...] encounter Results XR Chest PA and Lateral (07/08/2019 4:34 PM PST) + + | Specimen | + + | | + + + + + | Impressions | Performed At | + + + | 1. No acute cardiopulmonary abnormality. Signed by: | [facility] | | Linda Metz, Carlos Sign Date/Time: 07/09/2019 8:15 AM | | [...]
--- OUTSIDE RECORDS SUMMARY | ~2019-10-27 | XMS | Encounter Summary ---
Demographics + + + | Address | [address] | | | [place] [address] | + + + | Home Phone [...] [place], | | | | | [place] [address] | | + + + + + | Kellen Briones | ECON | [place] | | | | | [address] | | + + + + + Care Team Providers + +------+ + | Care Cops Name | Role | Phone | + +------+ + | Barb Marte | THANG | | + +------+ + Encounter Details +--------+ + + + + | Date | Type | Department | Care Team | Description | +--------+ + + + + | 07/08/ | Hospital | [facility] | Monster White MD | Preop testing | | 2020 | Encounter | [facility] | [address] | | | | | ELECTRODIAGNOSTICS | [place] [address] [place], [place] | | | | | [address] | [address] | | | | | [place], [place] | | | | | | [address] | | | | | | [phone] | | | +--------+ + + + [...]
--- OUTSIDE RECORDS SUMMARY | ~2019-10-27 | XMS | Encounter Summary ---
Demographics + + + | Address | [address] | | | [place] [address] | + + + | Home Phone [...] [place], | | | | | [place] [address] | | + + + + + | Kellen Briones | ECON | [place], [place] | | | | | [address] | | + + + + + Care Team Providers + +------+ + | Care Faculty Instructor Name | Role | Phone | [...] [place] | FMD [address] | | | | | [address] | St [place], [place] | | | | | [place], [place] | [address] | | | | | [address] | [phone] | | | | | [phone] | | | +--------+ + + + [...]
--- OUTSIDE RECORDS SUMMARY | ~2019-10-27 | XMS | Encounter Summary ---
Demographics + + + | Address | [address] | | | [place] [address] | + + + | Home Phone [...] [place], | | | | | [place] [address] | | + + + + + | Kellen Briones | ECON | [place], [place] | | | | | [address] | | + + + + + Care Team Providers + +------+ + | Care Engineer Systems Name | Role | Phone | + [...] | | | Procedures | [address] | [address] | | | | | NM Nuclear | [address] | Med [address] | | | | | Stress Test | [address] | [address] | | | | | (Vasodilator | [place], [place] | [place] | | | | | ) | [address] | [address] | | | | | | Phone: | Phone: | | | | | | [phone] | [phone] | | | | | | Fax: | Fax: | | | | | | [phone] | [phone] | +--------+--------+ + + + + Reason [...] | | | Procedures | [address] | [address]uc | | | | | NM Nuclear | [address] | Med [address] | | | | | Stress Test | [address] | [address] | | | | | (Vasodilator | [place], [place] | [place], [place] | | | | | ) | [address] | [address] | | | | | | Phone: | Phone: | | | | | | [phone] | [phone] | | | | | | Fax: | Fax: | | | | | | [phone] | [phone] | +--------+--------+ + + + + Encounter Details +--------+ + + + + | Date | Type | Department | Care Team | Description | +--------+ + + + + | 02/16/ | Hospital | [facility] | Agata Tinajero DO | Hx of CABG | | 2019 | Encounter | CARDIOLOGY [place] | [address] | | | | | NUC MED [address] | [address] [place], [place] | | | | | [address] | [address] | | | | | [place], [place] | | | | | | [address] | | | | | | [phone] | | | +--------+ + + + [...]
--- OUTSIDE RECORDS SUMMARY | ~2019-10-27 | XMS | Encounter Summary ---
Demographics + + + | Address | [address] | | | [place] [address] | + + + | Home Phone [...] [place], | | | | | [place] [address] | | + + + + + | Kellen Briones | ECON | [place], [place] | | | | | [address] | | + + + + + Care Team Providers + +------+ + | Care Construction Or Leak Gang Laborer Name | Role | Phone | [...] | Cervical | Marissa, | [address] | | | | | spondylosis | Tk Monreal MD | [place], | | | | | Procedures | [address] | [place] | | | | | [place] INJ | [place] | [address] | | | | | DX/THER AGNT | [facility], [place] | Phone: | | | | | [place] | [address] | [phone] | | | | | [place], | Phone: | Fax: | | | | | | [phone] | [phone] | | | | | CERV/THORAC, | Fax: | | | | | | 1ST LEVEL | [phone] | | | | | | [place] INJ | | | | | | | DX/THER AGNT | | | | | | | [place] | | | | | | | [address] [place], | | | | | | | | | | | | | | CERV/THORAC, | | | | | | | 2ND LEVEL | | | | | | | [place] INJ | | | | | | [...] + + | 11/29/ | Hospital | [facility] | [place], | Cervical stenosis of | | 2016 | Encounter | MED CTR XRAY [address] | AYAAN Taylor [address] | spinal canal; | | | | [place] | [facility] | Spondylolisthesis of | | | | [place] [address] | [place] [address] | cervical region; | | | | [phone] | [phone] | Neck pain on right | | | | | | side; Facet | | | | | Tool Engine Lathe Set Up Operator, [facility] | arthritis of | | | | [...] Arthritis ICD-10 Code M43.12 Clementine Winchester | [facility] | | presents to the fluoroscopy suite for fluoroscopically-guided [facility] | | bilateral [...] [address] | [place] | [phone] | | [facility] | | [address] | | | - IMAGING | | [...]
--- OUTSIDE RECORDS SUMMARY | ~2019-10-27 | XMS | Encounter Summary ---
Demographics + + + | Address | [address] | | | [place] [address] | + + + | Home Phone [...] [place], | | | | | [place] [address] | | + + + + + | Kellen Briones | ECON | [place], [place] | | | | | [address] | | + + + + + Care Team Providers + +------+ + | Care Photo Graphics Librarian Name | Role | Phone | [...] [address] | FMD [address] | | | | | [address] | [place], [place] | | | | | [place], [place] | [address] | | | | | [address] | [phone] | | | | | [phone] | | | +--------+ + + + [...]
--- OUTSIDE RECORDS SUMMARY | ~2019-10-27 | XMS | Encounter Summary ---
Demographics + + + | Address | [address] | | | [place] [address] | + + + | Home Phone [...] [place], | | | | | [place] [address] | | + + + + + | Kellen Briones | ECON | [place], [place] | | | | | [address] | | + + + + + Care Team Providers + +------+ + | Care Fabrication Technician Name | Role | Phone | [...] | | | | lumbar | [place] [address] | [address] Phone: | | | | | region DDD | Phone: | [phone] | | | | | (degenerativ | [phone] | Fax: | | | | | e disc | Fax: | [phone] | | | | | disease), | [phone] | | | | | | lumbar [...] | Office | [facility] | Mono Diaz, | Lumbar radiculopathy | | 2019 | Visit | PHYSIATRY [address] | PA-C [address] | (Primary Dx); | | | | [address] | [address] [place] | Spondylolisthesis of | | | | [place] [facility], [place] | [place] [address] | lumbar region; DDD | | | | [address] | [phone] | (degenerative disc | | | | [phone] | | disease), lumbar; | | | | | | Spinal stenosis of | | | | | | lumbar region with | | | | | | khrrweuhmyhxk-B2-U8 | | | | | | level [...] disk, and irritate nerves. Date Last Reviewed: 11/01/201719990941-1825 [employer] [place] [address], [place] [address]. All righ ts reserved. This information is not intended as a substitute for professional medical care. Always follow your healthcare professional's instructions. documented in this encounter Progress Notes Mono Diaz PA-C - 12/08/2018 2:40 PM PDTFormatting of this note might be different fro m the original. Mono Diaz PA-C [address] [facility], [address] [place] [address] FAX: CHIEF COMPLAINT: Chief Complaint Patient presents [...] apparent deficits with short or correction memory. The cranial nerves appear grossly intact. [...] lumbar Spinal stenosis of lumbar region with sackfkqoqlbxi-N4-U7 level moderately severe PLAN: 1) Today we [...] PT (multiple sessions over the years) and medicare sales executive. Unfortunately Clementine Winchester continues to have significant [...] with cardiology later this m [facility]. I spent 30 minutes in visit with [...] with | | | | | | yaimifbkcyuod-Y4-D7 | | | | | | level [...] | Spinal stenosis of lumbar region with jnizysrapruqr-E2-V7 level moderately severe | | Spinal stenosis, lumbar region, without neurogenic claudication | + + documented in this encounter
--- OUTSIDE RECORDS SUMMARY | ~2019-10-27 | XMS | Encounter Summary ---
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 Longo at [facility]. 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 MRA of the head and neck was unremarkable for large v essel stenosis or occlusion. She also had EEG which showed mild diffuse slowing of the back ground without epileptiform discharges. She was seen by intensive care anaesthetist at [facility]. She reported that she had Holter [...] Stroke Syncope and collapse Cancer Breast Hyperlipidemia PA (myocardial infarction) GERD (gastroesophageal reflux disease) Asthma Arthritis Lumbar radiculopathy 07/23/2012 DDD (degenerative disc disease), lumbar 07/23/2012 Spinal stenosis of lumbar region with alhjlwwqylgoy-A1-K4 level moderately severe 2012 Facet arthritis of [...] She did have history of starting multiple FORESTRY SUPPORT SPECIALIST depressant medications since last February. These ep [...]
--- OUTSIDE RECORDS SUMMARY | ~2019-10-27 | XMS | Encounter Summary ---
Demographics + + + | Address | [address] | | | [place] [address] | + + + | Home Phone [...] [place], | | | | | [place] [address] | | + + + + + | Kellen Briones | ECON | [place], [place] | | | | | [address] | | + + + + + Care Team Providers + +------+ + | Care Road Driver Name | Role | Phone | [...] + + | 10/02/ | Telephone | [facility] | Irving Becerril, | Imaging Only (6M [address] | | 2016 | | NEUROSURGERY [address] | DO [address] | xray ) | | | | [address] | [address] [place], [place] | | | | | [place], [place] | [id number] | | | | | [address] | | | | | | [phone] | | | +--------+ + + + [...]
--- OUTSIDE RECORDS SUMMARY | ~2019-10-27 | XMS | Encounter Summary ---
Demographics + + + | Address | [address] | | | [place] [address] | + + + | Home Phone [...] [place], | | | | | [place] [address] | | + + + + + | Kellen Briones | ECON | [place], [place] | | | | | [address] | | + + + + + Care Team Providers + +------+ + | Care Delivery Department Supervisor Name | Role | Phone [...] | | | | | [place], | [place] [address] | | | | | | [place] [address] | Phone: | | | | | | Phone: | [phone] | | | | | | [phone] | Fax: | | | | | | Fax: | [phone] | | | | | | [phone] | | +--------+ + + + + [...] + + | 09/03/ | Office | [facility] | Patrick Gaffney MD [address] | Mental status change | | 2012 | Visit | NEUROLOGY [place] | [address] | (Primary Dx); Sleep | | | | [address] [facility], | [address] [place], | disorder | | | | [address] [place] | [place] [address] | | | | | [place] [address] | [phone] | | | | | [phone] | | | +--------+---------+ + + + [...]
--- OUTSIDE RECORDS SUMMARY | ~2019-10-27 | XMS | Encounter Summary ---
Demographics + + + | Address | [address] | | | [place] [address] | + + + | Home Phone [...] [place], | | | | | [place] [address] | | + + + + + | Kellen Briones | ECON | [place] | | | | | [address] | | + + + + + Care Team Providers + +------+ + | Care Laser/Electro Optics Technician Name | Role | Phone | + +------+ + | Barb Marte | THANG | | + +------+ + Encounter Details +--------+ + + + + | Date | Type | Department | Care Team | Description | +--------+ + + + + | 12/29/ | Hospital | [facility] | Chavo Jacob, | DDD (degenerative | | 2019 | Encounter | MED CTR XRAY [address] | PA-C [address] | disc disease), | | | | [place] | [address] [place] | lumbar; Lumbar | | | | [place] [address] | [place] [address] | radiculopathy | | | | [phone] | [phone] | | | | | | | [...]
--- OUTSIDE RECORDS SUMMARY | ~2019-10-27 | XMS | Encounter Summary ---
Demographics + + + | Address | [address] | | | [place] [address] | + + + | Home Phone [...] [place], | | | | | [place] [address] | | + + + + + | Kellen Briones | ECON | [place], [place] | | | | | [address] | | + + + + + Care Team Providers + +------+ + | Care Motor Vehicle Technician Name | Role | Phone | + +------+ + | Anna De Guzman PA-C | PCP | | + +------+ + Encounter Details +--------+ + + + + | Date | Type | Department | Care Team | Description | +--------+ + + + + | 10/21/ | Hospital | [facility] | IsakkaydenkaileeTk mathis | | | 2012 | Encounter | MED CTR XRAY [address] | T, [address] | | | | | [place] | [place], [place] | | | | | [place] [address] | [address] | | | | | [phone] | | | +--------+ + + + [...] Performed At | + + + | [facility] Diagnostic [facility] | [employer] | | Department [address] [place] [address] | [facility] | | [ rep ct [address]] [ rep [facility] | | st zip] Signed | - IMAGING | | | | | Patient Name: CLEMENTINE WINCHESTER Physician: | | | : 1940 Age: 72 Sex: F Unit #: [id number] | | | Exam Date: 10/21/12 Location: [facility] | | | Report #: [id number] Page: | | | %(RAD)RES..mtdd.print.filter("pg") of %(RAD) | | | RES..mtdd.print.filter("tpg") | | | | | | Accession Number: [id number] | | | PROCEDURE NOTE EPIDURAL STEROID INJECTION | | | CLINICAL HISTORY: ICD-9 CODE 724.4, LUMBAR RADICULOPATHY. | | | Ms. Clementine Winchester presents to the fluoroscopy [...] | | | Transcribed Date/Time: 10/21/2012 18:52 Network Relay Tester: | | | CS <<Signature on File>> | | | Tk Monreal | | | MD Marissa11/07/12 7751 <Electronically signed by Tk Monreal | | | [place] ALVARADO> Tk Ann MD 10/21/12 1500 | | | Network Relay Tester: [employer] Tenridorbpfki25/21/13 2684 | | | | | + + + + + + + + | Performing | Address | City/State/Zipcode | Phone Number | | Organization | | | | + + + + + | [facility] | [address] | [place] | [phone] | | [facility] | | [address] | | | - IMAGING | | | | + + + + + documented in this encounter Visit Diagnoses Not on filedocumented in this encounter
--- OUTSIDE RECORDS SUMMARY | ~2019-10-27 | XMS | Encounter Summary ---
Demographics + + + | Address | [address] | | | [place] [address] | + + + | Home Phone [...] [place], | | | | | [place] [address] | | + + + + + | Kellen Briones | ECON | [place], [place] | | | | | [address] | | + + + + + Care Team Providers + +------+ + | Care Tree Sapper Name | Role | Phone | + [...] + + | 08/28/ | Telephone | [facility] | Patrick Gaffney MD [address] | Results | | 2012 | | NEUROLOGY [place] | [facility] | | | | | [address] [facility], | [address] [place], | | | | | [address] [place] | [place] [address] | | | | | [place] [address] | [phone] | | | | | [phone] | | | +--------+ + + + [...]
--- OUTSIDE RECORDS SUMMARY | ~2019-10-27 | XMS | Clinical Summary ---
Demographics + + + | Address | [address] | | | [place] [address] | + + + | Home Phone [...] [place], | | | | | [place] [address] | | + + + + + | Kellen Briones | ECON | [place] | | | | | [address] | | + + + + + Care Team Providers + +------+ + | Care Assayer Helper Name | Role | Phone | [...] 03/30/2016 | + + + | H/O MD (myocardial infarction) | 03/30/2016 | + [...] | Spinal stenosis of lumbar region with vpcldbtxehwqm-A1-E4 level | 07/23/2012 | | moderately severe [...] | Hyperlipidemia | | + +---+ | MD (myocardial infarction) | | + +---+ | [...] | | | | | | complication ([facility]); | | 07/29/ | | | [...] | + +--------+--------+ +--------+--------+--------+ | Bone Chip [facility] 15cc | Bone | N/A: | MUSCULOSKEL | | 04/20/ | [id number] | | Frzdr - | | Spine | ETAL | | 2021 | | | [id number]: | | Lumbar | TRANSPLA - | | | /[id number] | | Qty: 1 on 07/22/2019 by Christopher, | | | MUSC | | | [id number] | | MD Monster at [facility] | | | | | | 032 | | [facility] | | | | | | /NA | + +--------+--------+ +--------+--------+--------+ | Cage Funmilayo Ptc [id number] - | Generi | Anteri | [employer] - | | 10/20/ | [id number] | | [id number]: Qty: 1 on | c | or: | MEDT | | 2023 | 4 / | | 03/30/2016 by Irving Becerril | | Spine | | | | /[id number] | | DO Chloe at [facility] | | Cervic | | | | | | [facility] | | al | | | | | + +--------+--------+ +--------+--------+--------+ | Cage Funmilayo Ptc [id number] - | Generi | Anteri | [employer] - | | 01/03/ | [id number] | | [id number]: Qty: 1 on | c | or: | MEDT | | 2022 | 4 / | | 03/30/2016 by Irving Becerril | | Spine | | | | /[id number] | | A, DO at [facility] | | Cervic | | | | | | [facility] | | al | | | | | + +--------+--------+ +--------+--------+--------+ | Cage Funmilayo Ptc [id number] - | Generi | Anteri | [employer] - | | 10/20/ | [id number] | | [id number]: Qty: 1 on | c | or: | MEDT | | 2023 | 4 / | | 03/30/2016 by Irving Becerril | | Spine | | | | /[id number] | | A, DO at [facility] | | Cervic | | | | | | [facility] | | al | | | | | + +--------+--------+ +--------+--------+--------+ | Cage Funmilayo Ptc [id number] - | Generi | Anteri | [employer] - | | 10/20/ | [id number] | | [id number]: Qty: 1 on | c | or: | MEDT | | 2023 | 4 / | | 03/30/2016 by Irving Becerril | | Spine | | | | /80BS | | A, DO at [facility] | | Cervic | | | | | | [facility] | | al | | | | | + +--------+--------+ +--------+--------+--------+ | Melvin Mod - SnaImplanted: | Generi | | NUVASIVE - | | | [id number] | | Qty: 4 on 07/22/2019 by Christopher, | c | | NVSV | | | 11 /NA | | MD Monster at [facility] | | | | | | /NA | | [facility] | | | | | | | + +--------+--------+ +--------+--------+--------+ | Josiah Mas Ti Lord 5.5x40mm - | Generi | | NUVASIVE - | | | [id number] | | SnaImplanted: Qty: 2 on | c | | NVSV | | | 40 /NA | | 07/22/2019 by Monster White, | | | | | | /NA | | at [facility] | | | | | | | [facility] | | | | | | | + +--------+--------+ +--------+--------+--------+ | Putty Bone Dbm Grftn 2.5cc - | Graft | Anteri | [employer] - | | 06/30/ | [id number] | | [id number]: Qty: 1 | | or: | MEDT | | 2019 | | | on 03/30/2016 by Jerrica, | | Spine | | | | /[id number] | | Irving Corona DO at [facility] | | Cervic | | | | 6-016 | | [facility] | | al | | | | / | + +--------+--------+ +--------+--------+--------+ | Strip Mstrgrft 10x2.0x.6 12cc | Graft | N/A: | [employer] - | | 12/31/ | [id number] | | - SnaImplanted: Qty: 1 on | | Spine | MEDT | | 2021 | 0 /NA | | 07/22/2019 by Monster White, | | Lumbar | | | | /[id number] | | at [facility] | | | | | | 9J4 | | [facility] | | | | | | | + +--------+--------+ +--------+--------+--------+ | Bone Xgrft Infus Kts Sm - | Graft | N/A: | [employer] - | | 01/31/ | [id number] | | SnaImplanted: Qty: 1 on | | Spine | MEDT | | 2020 | 0 /NA | | 07/22/2019 by Monster White, | | Lumbar | | | | /[id number] | | at [facility] | | | | | | [id number] | | [facility] | | | | | | | + +--------+--------+ +--------+--------+--------+ | Plate [place] Cerv 75mm | Plate | Anteri | [employer] - | | | [id number] | | - [id number]: Qty: 1 | | or: | MEDT | | | 5 / / | | on 03/30/2016 by Jerrica, | | Spine | | | | | | Irving Corona DO at [facility] | | Cervic | | | | | | [facility] | | al | | | | | + +--------+--------+ +--------+--------+--------+ | Screw Slf-Drl V/A 4.0x16mm - | Screw | Anteri | SOFAMOR | | | [id number] | | [id number]: Qty: 5 on | | or: | DANEK - DIV | | | 6 / / | | 03/30/2016 by Irving Becerril | | Spine | [employer] | | | | | DO Chloe at [facility] | | Cervic | - [facility] | | | | | [facility] | | al | | | | | + +--------+--------+ +--------+--------+--------+ | Screw Slf-Drl V/A 4.0x17mm - | Screw | Anteri | SOFAMOR | | | [id number] | | [id number]: Qty: 4 on | | or: | DANEK - DIV | | | | | 03/30/2016 by Irving Becerril | | Spine | [employer] | | | | | A, DO at [facility] | | Cervic | - [facility] | | | | | [facility] | | al | | | | | + +--------+--------+ +--------+--------+--------+ | Screw Slf- V/A 4.5x15mm - | Screw | Anteri | [employer] - | | | [id number] | | [id number]: Qty: 1 on | | or: | MEDT | | | / | | 03/30/2016 by Irving Becerril | | Spine | | | | | | A, DO at [facility] | | Cervic | | | | | | [facility] | | al | | | | | + +--------+--------+ +--------+--------+--------+ | Screw Alvina Arreguin | Screw | | NUVASIVE - | | | [id number] | | 5.5mm - SnaImplanted: Qty: 4 | | | NVSV | | | 00 /NA | | on 07/22/2019 by Christopher, | | | | | | /NA | | MD Monster at [facility] | | | | | | | | [facility] | | | | | | | + +--------+--------+ +--------+--------+--------+ | Cage Mod Xlw 15deg [id number] | | N/A: | NUVASIVE - | | 01/14/ | [id number] | | - SnaImplanted: Qty: 1 on | | Spine | NVSV | | 2023 | 5P2 | | 07/22/2019 by Monster White, | | Lumbar | | | | /NA | | MD at [facility] | | | | | | /[id number] | | [facility] | | | | | | 5 | + +--------+--------+ +--------+--------+--------+ | Screw Shk Mas Mod 6.5x50mm 2c | | | NUVASIVE - | | | [id number] | | - SnaImplanted: Qty: 2 on | | | NVSV | | | 50 /NA | | 07/22/2019 by Monster White, | | | | | | /NA | | MD at [facility] | | | | | | | | [facility] | | | | | | | + +--------+--------+ +--------+--------+--------+ | Screw Shk Mas Mod 7.5x50mm 2c | | | NUVASIVE - | | | [id number] | | - SnaImplanted: Qty: 2 on | | | NVSV | | | 50 /NA | | 07/22/2019 by Monster White, | | | | | | /NA | | at [facility] | | | | | | | | [facility] | | | | | | | [...] +--------+ +---------+--------+ | MEDICARE | MEDICA | [id number] | | [phone] | | Medica | | | RE | | 007-Pr | 5 | | re | | | PART A | | esent | | | | | | AND B | | | | | | + +--------+ +--------+ +---------+--------+ | AARP | AARP | [id number] | 06/03/19 | [phone] | | Indemn | | | MDCR | | 19-Pre | 0 | | ity | | | SUPPL | | sent | | | | + +--------+ +--------+ +---------+--------+ | | CHAMPV | [id number] | | [phone] | | Indemn | | | A | | 997-Pr | 7 | | ity | | | | | esent | | | | + +--------+ +--------+ +---------+--------+ | MEDICARE | MEDICA | [id number] | | [phone] | | Medica | | | RE | | 012-Pr | 5 | | re | | | PART A | | esent | | | | | | AND B | | | | | | + +--------+ +--------+ +---------+--------+ | AARP | AARP | [id number] | 06/03/19 | [phone] | | Indemn | | | MDCR | | 19-Pre | 0 | | ity | | | SUPPL | | sent | | | | + +--------+ +--------+ +---------+--------+ | KARY | CHAMPV | [id number] | | [phone] | | Indemn | [...] | | al/Fam | | 1940 | [phone] | [place] | | | amanuel | | | 6 (Home) | [phone] | + +--------+ +--------+ + + | Clementine Winchester | Person | Self | [birth year] | [address] | | | al/Fam | | 1940 | [phone] | [place] | | | amanuel | | | 6 (Home) | [address] | | | | | | [phone] | | | | | | | 3 (Work) | | + +--------+ +--------+ + + Advance Directives + + + + + | Type | Date Recorded | Patient | Explanation | | | | Paper Pattern Inspector | | + + + + + | Power of | | | | | Senior Clinical Data Analyst | | | | + + + + + | Power of | 07/30/2019 11:54 | | | | Senior Clinical Data Analyst | AM | | | + + [...]
--- OUTSIDE RECORDS SUMMARY | ~2019-10-27 | XMS | Encounter Summary ---
Demographics + + + | Address | [address] | | | [place] [address] | + + + | Home Phone [...] [place], | | | | | [place] [address] | | + + + + + | Kellen Briones | ECON | [place], [place] | | | | | [address] | | + + + + + Care Team Providers + +------+ + | Care Drilling Field Specialist Name | Role | Phone | [...] + + | 08/18/ | Telephone | [facility] | Susy Abdullahi | Other (returning | | 2013 | | PHYSIATRY [address] | N, RN | patient's call) | | | | [address] | | | | | | [place] | | | | | | [address] | | | | | | [phone] | | | +--------+ + + + [...]
--- OUTSIDE RECORDS SUMMARY | ~2019-10-27 | XMS | Encounter Summary ---
Demographics + + + | Address | [address] | | | [place] [address] | + + + | Home Phone [...] [place], | | | | | [place] [address] | | + + + + + | Kellen Briones | ECON | [place], [place] | | | | | [address] | | + + + + + Care Team Providers + +------+ + | Care Kersey Department Supervisor Name | Role | Phone | + +------+ + | Anna De Guzman PA-C | PCP | | + +------+ + Encounter Details +--------+ + + + + | Date | Type | Department | Care Team | Description | +--------+ + + + + | 10/21/ | Hospital | [facility] | IsakkaydenkaileeTk mathis | | | 2012 | Encounter | MED CTR XRAY [address] | T, [address] | | | | | [place] | [place], [place] | | | | | [place] [address] | 275002 | | | | | [phone] | | | +--------+ + + + [...] At | + + + | [facility] Diagnostic Imaging | [place] | | Department [address] [place] [address] | [facility] | | [ rep [address]] [ rep [facility] | | st zip] Signed | - IMAGING | | | | | Patient Name: CLEMENTINE WINCHESTER Physician: | | | : 1940 Age: 72 Sex: F Unit #: [id number] | | | Exam Date: 10/21/12 Location: [facility] | | | Report #: [id number] Page: | | | %(RAD)RES..mtdd.print.filter("pg") of %(RAD) | | | RES..mtdd.print.filter("tpg") | | | | | | Accession Number: [id number] | | | PROCEDURE NOTE EPIDURAL STEROID [...] | | | Transcribed Date/Time: 10/21/2012 18:52 Quantitative Associate: | | | CS <<Signature on File>> | | | Tk Monreal | | | MD Marissa11/07/12 0370 <Electronically signed by Tk Monreal | | | Marissa ALVARADO> Tk Ann MD 10/21/12 8099 | | | Quantitative Associate: Nutrinia Iymfakcxzscep06/21/13 6729 | | | | | + + + + + + + + | Performing | Address | City/State/Zipcode | Phone Number | | Organization | | | | + + + + + | [facility] | [address] | [place] | [phone] | | [facility] | | [address] | | | - IMAGING | | | | + + + + + documented in this encounter Visit Diagnoses Not on filedocumented in this encounter
--- OUTSIDE RECORDS SUMMARY | ~2019-10-27 | XMS | Encounter Summary ---
Demographics + + + | Address | [address] | | | [place] [address] | + + + | Home Phone [...] [place], | | | | | [place] [address] | | + + + + + | Kellen Briones | ECON | [place], [place] | | | | | [address] | | + + + + + Care Team Providers + +------+ + | Care Kitchen Utility Associate Name | Role | Phone | + +------+ + | Anna De Guzman PA-C | PCP | | + +------+ + Encounter Details +--------+ + + + + | Date | Type | Department | Care Team | Description | +--------+ + + + + | 10/21/ | Hospital | [facility] | IsakkaydenkaileeTk mathis | | | 2012 | Encounter | MED CTR XRAY [address] | T, [address] | | | | | [place] | [place], [place] | | | | | [place] [address] | [id number] | | | | | [phone] | | | +--------+ + + + [...] [facility] Diagnostic Imaging | [place] | | Department [address] [place] [address] | [facility] | | [ rep ct [address]] [ rep [facility] | | st zip] Signed | - IMAGING | | | | | Patient Name: CLEMENTINE WINCHESTER Physician: | | | : 1940 Age: 72 Sex: F Unit #: [id number] | | | Exam Date: 10/21/12 Location: [facility] | | | Report #: [id number] Page: | | | %(RAD)RES..mtdd.print.filter("pg") of %(RAD) | | | RES..mtdd.print.filter("tpg") | | | | | | Accession Number: [id number] | | | PROCEDURE NOTE EPIDURAL STEROID INJECTION | | | CLINICAL HISTORY: ICD-9 CODE 724.4, LUMBAR RADICULOPATHY. | | | Ms. Clementine Winchestre presents to the fluoroscopy suite for | [...] | | | Transcribed Date/Time: 10/21/2012 18:52 Quality Assurance/R&D Lab Technician: | | | CS <<Signature on File>> | | | Tk Monreal | | | MD Marissa11/07/12 7839 <Electronically signed by Tk Monreal | | | Marissa ALVARADO> Tk Ann MD 10/21/12 0492 | | | Quality Assurance/R&D Lab Technician: Probity Ccaouiedbpxzq60/21/13 7139 | | | | | + + + + + + + + | Performing | Address | City/State/Zipcode | Phone Number | | Organization | | | | + + + + + | [facility] | [address] | [place] | [phone] | | [facility] | | [address] | | | - IMAGING | | | | + + + + + documented in this encounter Visit Diagnoses Not on filedocumented in this encounter
--- OUTSIDE RECORDS SUMMARY | ~2019-10-27 | XMS | Encounter Summary ---
Demographics + + + | Address | [address] | | | [place] [address] | + + + | Home Phone [...] [place], | | | | | [place] [address] | | + + + + + | Kellen Briones | ECON | [place], [place] | | | | | [address] | | + + + + + Care Team Providers + +------+ + | Care Planting Supervisor Name | Role | Phone | [...] | | n | spinal canal | [address] | [address] [place] | | | | | | [place], | [place], [place] | | | | | Spondylolist | [place] [address] | [address] Phone: | | | | | hesis of | Phone: | [phone] | | | | | cervical | [phone] | Fax: | | | | | region | [phone] Fax: | [phone] | | | | | Right hip | | | | | | | pain | [phone] | | | | | | Trochanteric [...] | | | [place] | [address] | disease), lumbar; | | | | [address] | | 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 Please also provide a charter and tour bus driver to take you home on the [...] Stroke Syncope and collapse Cancer Breast Hyperlipidemia PR (myocardial infarction) GERD (gastroesophageal reflux disease) Asthma [...] 4. Spinal stenosis of lumbar region with cwafzgzkodyoz-W4-F7 level moderately severe 5. Facet arthritis of [...] issue. Reportedly she has already seen a railroad car painter and nothing abnormal w as found. She [...] | Spinal stenosis of lumbar region with porbjimuybzww-F9-I1 level moderately severe | | Spinal stenosis, [...]
--- OUTSIDE RECORDS SUMMARY | ~2019-10-27 | XMS | Encounter Summary ---
Demographics + + + | Address | [address] | | | [place] [address] | + + + | Home Phone [...] [place], | | | | | [place] [address] | | + + + + + | Kellen Briones | ECON | [place], [place] | | | | | [address] | | + + + + + Care Team Providers + +------+ + | Care Design Editor Name | Role | Phone | [...] NEUROSURGERY [address] | [address], [address] | Dx) | | | | [address] | [place] | | | | | [place], [place] | [address] | | | | | [address] | [phone] | | | | | [phone] | | | +--------+ + + + [...]
--- OUTSIDE RECORDS SUMMARY | ~2019-10-27 | XMS | Encounter Summary ---
Demographics + + + | Address | [address] | | | [place] [address] | + + + | Home Phone [...] [place], | | | | | [place] [address] | | + + + + + | Kellen Briones | ECON | [place] | | | | | [address] | | + + + + + Care Team Providers + +------+ + | Care Heel Slicker Name | Role | Phone | + [...] | | | | | [address] [facility] | [place] [address] | | | | | [place] [address] | | | | | | [phone] | | | +--------+ + + + [...]
--- OUTSIDE RECORDS SUMMARY | ~2019-10-27 | XMS | Encounter Summary ---
Demographics + + + | Address | [address] | | | [place] [address] | + + + | Home Phone [...] [place], | | | | | [place] [address] | | + + + + + | Kellen Briones | ECON | [place], [place] | | | | | [address] | | + + + + + Care Team Providers + +------+ + | Care Nurse'S Assistant Name | Role | Phone | [...] + + | 10/13/ | Telephone | [facility] | Tk Ann | Appointment | | 2012 | | PHYSIATRY [address] | [address] | | | | | [address] | [place], [place] | | | | | [place], [place] | [address] | | | | | [address] | | | | | | [phone] | | | +--------+ + + + [...]
--- OUTSIDE RECORDS SUMMARY | ~2019-10-27 | XMS | Encounter Summary ---
Demographics + + + | Address | [address] | | | [place] [address] | + + + | Home Phone | | + + + | Preferred Language | Unknown | + + + | Marital Status | Unknown | + + + | Scientologist Affiliation | Unknown | + + + | Race | Unknown | + + + | Ethnic Group | Unknown | + + + Author + + + | Author | [facility] | + + + | Organization | [facility] | + + + | Address | Unknown | + + + | Phone | Unavailable | + + + Care Team Providers + +------+ + | Care Director Translation Name | Role | Phone | + [...] | | | Marleni Viera | Maximiliano Dalton | | | | | | Dalton | Research | | | | | | Research | [place] | | | | | | [place], [address] | Floor | | | | | | Floor | [place], [place] | | | | | | [place], [place] | [address] | | | | | | [address] | Phone: | | | | | | Phone: | [phone] | | | | | | [phone] | Fax: | | | | | | Fax: | [phone] | | | | | | [phone] | | +--------+--------+ + + + + Encounter Details +--------+ + + + + | Date | Type | Department | Care Team | Description | +--------+ + + + + | 07/25/ | Outside | Neurophysiology | Anna Draper, | | | 2012 | Referral | EEG at [facility] [address] | [place] | | | | Order | [facility] | [facility] | | | | | [facility] | [address] [place], | | | | | [place], [address] Floor | [place] [address] | | | | | [place], [place] | [phone] | | | | | [address] | | | | | | [phone] | | | +--------+ + + + [...] 1940 Medical | | | Record Number: [id number] Date of Test: 07/24/2012 Place of | | | Service: [facility] Department: EEG [facility] - [id number] | | | ROUTINE EEG Indication: evaluate [...] daily Nitrostat 0.4 mg PRN chest pain [place] | | | 7.5/325 mg twice daily [...] was performed at . | | | [facility]. EEG Description Interictal Record: The | | [...] | | | MD VIRY. Suggested CPT: 52440 - EEG Routine Awake Only | | | Suggested Dx: 348.30 - Encephalopathy, Unspecified | | + + + documented in this encounter Visit Diagnoses Not on filedocumented in this encounter"
--- OUTSIDE RECORDS SUMMARY | ~2019-10-27 | XMS | Encounter Summary ---
Demographics + + + | Address | [address] | | | [place] [address] | + + + | Home Phone [...] [place], | | | | | [place] [address] | | + + + + + | Kellen Briones | ECON | [place], [place] | | | | | [address] | | + + + + + Care Team Providers + +------+ + | Care Cras Name | Role | Phone | + [...] + + | 08/19/ | Office | [facility] | Mono Diaz, | Lumbar radiculopathy | | 2019 | Visit | [address]SIATRY [address] | PA-C [address] | (Primary Dx) | | | | [address] | [address] [facility] | | | | | [place], [place] | [place] [address] | | | | | [address] | [phone] | | | | | [phone] | | | +--------+---------+ + + + [...] press against a nerve. Date Last Reviewed: 08/01/201719991102-3146 [employer]. [address] [place] [address], [place] [address]. All righ ts reserved. This information is [...] and narcotic medications use; she currently uses Vonore, Flexeril and ga bapentin. 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 Unfortunately Clementine Winchester continues to have significant [...]
--- OUTSIDE RECORDS SUMMARY | ~2019-10-27 | XMS | Encounter Summary ---
Demographics + + + | Address | [address] | | | [place] [address] | + + + | Home Phone [...] [place], | | | | | [place] [address] | | + + + + + | Kellen Briones | ECON | [place], [place] | | | | | [address] | | + + + + + Care Team Providers + +------+ + | Care Flexo Operator Name | Role | Phone | [...] + + | 01/23/ | Telephone | [facility] | Mono Diaz, | Results, Imaging | | 2017 | | [address]SIATRY [address] | PA-C [address] | | | | | [address] | [address] [facility] | | | | | [place] [facility] [place] | [place] [address] | | | | | [address] | [phone] | | | | | [phone] | | | +--------+ + + + [...]
--- OUTSIDE RECORDS SUMMARY | ~2019-10-27 | XMS | Encounter Summary ---
Demographics + + + | Address | [address] | | | [place] [address] | + + + | Home Phone [...] [place], | | | | | [place] [address] | | + + + + + | Kellen Briones | ECON | [place], [place] | | | | | [address] | | + + + + + [...] + | 04/06/ | Telephone | [facility] | Irving Becerril, | Other (Post op call) | | 2015 | | NEUROSURGERY [address] | DO [address] | | | | | [address] [facility] [address] | [address] [place], [place] | | | | | [place], [place] | [id number] | | | | | [address] | | | | | | [phone] | | | +--------+ + + + [...]
--- OUTSIDE RECORDS SUMMARY | ~2019-10-27 | XMS | Encounter Summary ---
Demographics + + + | Address | [address] | | | [place] [address] | + + + | Home Phone [...] [place], | | | | | [place] [address] | | + + + + + | Kellen Briones | ECON | [place] | | | | | [address] | | + + + + + Care Team Providers + +------+ + | Care Web Marketing Coordinator Name | Role | Phone [...] | | | without | [place], | [place], [place] | | | |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 | [place] [address] | [address] | | | | | claudication | Phone: | Phone: | | | | | lumbar | [phone] | [phone] | | | | | | Fax: | Fax: | | | | | | [phone] | [phone] | + +--------+ + + + + Encounter Details +--------+---------+ + + + | Date | Type | Department | Care Team | Description | +--------+---------+ + + + | 06/04/ | Office | [facility] | Monster White MD | 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[facility] | [address] | lumbar region | | | | [facility] | [facility], [place] | (Primary Dx); Lumbar | | | | [address] | [address] | degenerative disc | | | | [place], [place] | | disease | | | | [address] | | | | | | [phone] | | | +--------+---------+ + + + [...] fentanyl, antidepressants Social History Occupational History 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 Employer: [employer] Tobacco Use Smoking status: [...] reflux disease) Hyperlipidemia Hypertension Lumbar radiculopathy 07/23/2012 [place] (myocardial infarction) ([facility]) Neck pain on right side 05/13/2013 Oxygen dependent 2 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 Snoring Spinal stenosis of lumbar region with [id number] level moderately severe 2012 Past Surgical History: Procedure Laterality Date BELPHAROPTOSIS REPAIR 2008 bilateral bone spur left foot BREAST RECONSTRUCTION [id number] About 10 surgeries CARPAL TUNNEL RELEASE Bilateral CERVICAL SPINE SURGERY Anterior 03/30/2016 Procedure: C3-4, C4-5, C5-6, C6-7 Anterior Cervical Discectomy w/ Fusion and Plating; Bryan geon: Irving Becerril DO; Location: [facility] MAIN OR CORONARY ARTERY BYPASS [...] Order Specific Question: Send directly to hospital project controls scheduler (bypassing clinic staff) Answer: No Note: We spent approximately 25 minutes in [id number] time of which greater than 50% was [...]
--- OUTSIDE RECORDS SUMMARY | ~2019-10-27 | XMS | Encounter Summary ---
Demographics + + + | Address | [address] | | | [place] [address] | + + + | Home Phone [...] [place], | | | | | [place] [address] | | + + + + + | Kellen Briones | ECON | [place], [place] | | | | | [address] | | + + + + + Care Team Providers + +------+ + | Care Aircraft Navigator Name | Role | Phone | [...] | Lumbar | [place], | [address] | | | | | radiculopath | Tk Monreal MD | [place], | | | | | y | [address] | [place] | | | | | Procedures | [place] | [address] | | | | | [place] INJECT | [place] | Phone: | | | | | ANES/STEROID | [address] | [phone] | | | | | FORAMEN | Phone: | Fax: | | | | | LUMBAR/SACRA | [phone] | [phone] | | | | | L W IMG | Fax: | | | | | | GUIDE ,1 | [phone] | | | | | | LEVEL [...] + + | 02/24/ | Hospital | [facility] | Mono Diaz, | Lumbar radiculopathy | | 2018 | Encounter | MED CTR XRAY [address] | PA-C [address] | | | | | [place] | [address] [place] | | | | | [place] [address] | [place] [address] | | | | | [phone] | [phone] | | | | | | | | | | | | Filler Blender, [facility] | | | | | | [...]
--- OUTSIDE RECORDS SUMMARY | ~2019-10-27 | XMS | Encounter Summary ---
Demographics + + + | Address | [address] | | | [place] [address] | + + + | Home Phone [...] [place], | | | | | [place] [address] | | + + + + + | Kellen Briones | ECON | [place], [place] | | | | | [address] | | + + + + + Care Team Providers + +------+ + | Care Inspector Scales Name | Role | Phone | + [...] + + | 06/19/ | Office | [facility] | [place], | Lumbar radiculopathy | | 2017 | Visit | PHYSIATRY [address] | AYAAN Taylor [address] | (Primary Dx); | | | | [address] | [address] | Spinal stenosis of | | | | [place], [place] | [place] [address] | lumbar region with | | | | [address] | [phone] | ulxyrhutuynfa-Y7-Q5 | | | | [phone] | | level moderately | | | [...] of blood sugars if you are diabetic. intermediate risk can lead to osteoporosis which is [...] of the procedure you must provide a oil truck driver to take you home. For [...] and narcotic medications use; she currently uses [place], Flexeril and ga bapentin. She just underwent [...] has no apparent deficits with short or ad terminal makeup operator memory. She has appropriate fund of [...] 2. Spinal stenosis of lumbar region with awglbtouuzmjt-X0-D7 level moderately severe 3. DDD (degenerative disc [...] 06/27/2016 Bilateral Transforaminal Epidural Steroid Injections | [facility] | | Diagnosis: Lumbar radiculopathy ICD-10 Code M54.16 [place] | [facility] | | Lizett Winchester presents to the fluoroscopy suite for [facility] | | fluoroscopically-guided bilateral L5-S1 transforaminal epidural [...] ST. | [address] | [place], [place] | [phone] | | [facility] | | [address] | | | - IMAGING | | | | + + + + + documented in this encounter Visit Diagnoses + + | Diagnosis | + + | Lumbar radiculopathy - Primary Thoracic or lumbosacral neuritis or radiculitis, | | unspecified | + + | Spinal stenosis of lumbar region with oclymkxdvhxjp-B0-I8 level moderately severe | | Spinal stenosis, [...]
--- OUTSIDE RECORDS SUMMARY | ~2019-10-27 | XMS | Encounter Summary ---
Demographics + + + | Address | [address] | | | [place] [address] | + + + | Home Phone [...] [place], | | | | | [place] [address] | | + + + + + | Kellen Briones | ECON | [place], [place] | | | | | [address] | | + + + + + Care Team Providers + +------+ + | Care Oil Heaterman Name | Role | Phone | + [...] Lumbar | AYAAN Villareal | [address] | | | | | radiculopath | [address] | [place], | | | | | y | [address] | [place] | | | | | Procedures | [address] | [address] | | | | | MRI Lumbar | [place], | Phone: | | | | | Spine wo | [place] [address] | [phone] | | | | | Contrast | Phone: | Fax: | | | | | | [phone] | [phone] | | | | | | Fax: | | | | | | | [phone] | | +--------+--------+ + + + + Reason for Visit + + + | Reason | Comments | + + + | Follow-up | Low Back Pain | + + + Encounter Details +--------+---------+ + + + | Date | Type | Department | Care Team | Description | +--------+---------+ + + + | 01/07/ | Office | [facility] | Mono Diaz, | Lumbar radiculopathy | | 2018 | Visit | PHYSIATRY [address] | PA-C [address] | (Primary Dx); | | | | [address] | [address] [place] | Spinal stenosis of | | | | [place] | [place] [address] | lumbar region with | | | | [address] | [phone] | zyqbrpxbaxqlb-V2-P7 | | | | [phone] | | level moderately | | | [...] press against a nerve. Date Last Reviewed: 03/06/201519999537-3698 [employer]. [address] [place] [address]. All righ ts reserved. This information is [...] and narcotic medications use; she currently uses [place], Flexeril and ga bapentin. 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 LEVOSCOLIOSIS AND MULTILEVEL FACET | [...] | Spinal stenosis of lumbar region with tgutvqszyhhdy-A3-W1 level moderately severe | | Spinal stenosis, lumbar region, without neurogenic claudication | + + documented in this encounter
--- OUTSIDE RECORDS SUMMARY | ~2019-10-27 | XMS | Encounter Summary ---
Demographics + + + | Address | [address] | | | [place] [address] | + + + | Home Phone [...] [place], | | | | | [place] [address] | | + + + + + | Kellen Briones | ECON | [place] | | | | | [address] | | + + + + + Care Team Providers + +------+ + | Care Studio Engineer Name | Role | Phone | + +------+ + | Barb Marte | THANG | | + +------+ + Encounter Details +--------+ + + + + | Date | Type | Department | Care Team | Description | +--------+ + + + + | 07/08/ | Hospital | [facility] | Monster White MD | | | 2020 | Encounter | [facility] | [address] | | | | | [address] | [address] [place], [place] | | | | | [place], [place] | [address] | | | | | [address] | | | | | | [phone] | | | +--------+ + + + [...]
--- OUTSIDE RECORDS SUMMARY | ~2019-10-27 | XMS | Encounter Summary ---
Demographics + + + | Address | [address] | | | [place] [address] | + + + | Home Phone [...] [place], | | | | | [place] [address] | | + + + + + | Kellen Briones | ECON | [place], [place] | | | | | [address] | | + + + + + Care Team Providers + +------+ + | Care Fiberglass Boat Assembly Supervisor Name | Role | Phone [...] + + | 03/27/ | Telephone | [facility] | Monster White MD | Imaging | | 2019 | | [facility] | [address] | | | | | ORTHOPEDIC SPINE | [address] [place], [place] | | | | | [address] | [address] | | | | | B [place], [place] | | | | | | [address] | | | | | | [phone] | | | +--------+ + + + [...]
--- OUTSIDE RECORDS SUMMARY | ~2019-10-27 | XMS | Encounter Summary ---
Demographics + + + | Address | [address] | | | [place] [address] | + + + | Home Phone [...] [place], | | | | | [place] [address] | | + + + + + | Kellen Briones | ECON | [place], [place] | | | | | [address] | | + + + + + Care Team Providers + +------+ + | Care Track Coach Name | Role | Phone | [...] | Lumbosacral | [place], | [address] | | | | | spondylosis | Tk Monreal MD | [place], | | | | | without | [address] | [place] | | | | | myelopathy | [place] | [address] | | | | | Procedures | [place] | Phone: | | | | | MT INJ | [address] | [phone] | | | | | DX/THER AGNT | Phone: | Fax: | | | | | PARAVERT | [phone] | [phone] | | | | | FACET JOINT, | Fax: | | | | | | | [phone] | | | | | | CERV/THORAC, | | | | | | | 1ST LEVEL | | | | | | | MT INJ | | | | | | | DX/THER AGNT | | | | | | | PARAVERT | | | | | | | FACET JOINT, | | | | | | | | | | | | | | CERV/THORAC, | | | | | | | 2ND LEVEL | | | | | | | MT INJ | | | | | | [...] + + | 09/24/ | Hospital | [facility] | Tk Ann | Neck pain on right | | 2013 | Encounter | MED CTR XRAY [address] | T, [address] | side; Facet | | | | [place] | [address] [facility] [place] [place] | arthritis of | | | | [place] [address] | [id number] | cervical region | | | | [phone] | | | | | | | Vinyl CutterJordan | | | | | | marco [...] 09/24/13 Cervical Facet Steroid Injections Diagnosis: | [facility] | | Cervical Spondylosis ICD-9 Code 721.0 Ms. Clementine Winchester | [facility] | | presents to the fluoroscopy suite for fluoroscopically-guided C4-C5, [facility] | | C5-C6 and C6-C7 [...] | + + + + + | [facility] | [address] | [place] | [phone] | | [facility] | | [address] | | | - IMAGING | | [...]
--- OUTSIDE RECORDS SUMMARY | ~2019-10-27 | XMS | Encounter Summary ---
Demographics + + + | Address | [address] | | | [place] [address] | + + + | Home Phone [...] [place], | | | | | [place] [address] | | + + + + + | Kellen Briones | ECON | [place], [place] | | | | | [address] | | + + + + + Care Team Providers + +------+ + | Care Bus Transportation Manager Name | Role | Phone | [...] | Lumbar | [place], | [address] | | | | | radiculopath | Tk Monreal MD | [place], | | | | | y | [address] | [place] | | | | | Procedures | [place] | [address] | | | | | [place] INJECT | [place] | Phone: | | | | | ANES/STEROID | [address] | [phone] | | | | | FORAMEN | Phone: | Fax: | | | | | LUMBAR/SACRA | [phone] | [phone] | | | | | L W IMG | Fax: | | | | | | GUIDE ,1 | [phone] | | | | | | LEVEL [place] | | | | | | | [...] + + | 02/24/ | Hospital | [facility] | Mono Diaz, | Lumbar radiculopathy | | 2018 | Encounter | MED CTR XRAY [address] | PA-C [address] | | | | | [place] | [address] [place] | | | | | [place] [address] | [place] [address] | | | | | [phone] | [phone] | | | | | | | | | | | | Game Trapper, [facility] | | | | | | [...]
--- OUTSIDE RECORDS SUMMARY | ~2019-10-27 | XMS | Encounter Summary ---
Demographics + + + | Address | [address] | | | [place] [address] | + + + | Home Phone [...] [place], | | | | | [place] [address] | | + + + + + | Kellen Briones | ECON | [place], [place] | | | | | [address] | | + + + + + Care Team Providers + +------+ + | Care Wash Oil Pump Operator Helper Name | Role | Phone [...] | | | | | claudication | [place], [place] | [address] | | | | | Procedures | [address] | Phone: | | | | | CT Lumbar | Phone: | [phone] | | | | | Spine wo | [phone] | Fax: | | | | | Contrast | Fax: | [phone] | | | | | | [phone] | | +--------+--------+ + + + + Encounter Details +--------+ + + + + | Date | Type | Department | Care Team | Description | +--------+ + + + + | 04/09/ | Hospital | [facility] | Monster White MD | | | 2019 | Encounter | MED CTR [address] | [address] | | | | | [place], | [address] [place] | | | | | [place] [address] | [address] | | | | | [phone] | | | +--------+ + + + [...]
--- OUTSIDE RECORDS SUMMARY | ~2019-10-27 | XMS | Encounter Summary ---
Demographics + + + | Address | [address] | | | [place] [address] | + + + | Home Phone [...] [place], | | | | | [place] [address] | | + + + + + | Kellen Briones | ECON | [place] | | | | | [address] | | + + + + + Care Team Providers + +------+ + | Care Equipment Planner Name | Role | Phone | [...] | unspecified whether | | | | [place], [place] | [place] [address]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 | | | | [address] | [phone] | claudication present | | | | [phone] | | (Primary Dx); DDD | | [...]
--- OUTSIDE RECORDS SUMMARY | ~2019-10-27 | XMS | Encounter Summary ---
Demographics + + + | Address | [address] | | | [place] [address] | + + + | Home Phone [...] [place], | | | | | [place] [address] | | + + + + + | Kellen Briones | ECON | [place] | | | | | [address] | | + + + + + Care Team Providers + +------+ + | Care Forming Mill Operator Name | Role | Phone | + +------+ + | Barb Marte | PCP | | + +------+ + Encounter Details +--------+ + + + + | Date | Type | Department | Care Team | Description | +--------+ + + + + | 01/31/ | Hospital | [facility] | Conversion | Diagnosis unknown | | 2018 | Encounter | CONVERSION DEP [address] | Transaction, | | | | | [address] | Provider Unknown | | | | | [place] | [phone] | | | | | [address] | | | | | | [phone] | | | +--------+ + + + [...]
--- OUTSIDE RECORDS SUMMARY | ~2019-10-27 | XMS | Encounter Summary ---
Demographics + + + | Address | [address] | | | [place] [address] | + + + | Home Phone [...] [place], | | | | | [place] [address] | | + + + + + | Kellen Briones | ECON | [place], [place] | | | | | [address] | | + + + + + Care Team Providers + +------+ + | Care Transportation Modeler Name | Role | Phone | + [...] + + | 04/05/ | Telephone | [facility] | Irving Becerril, | Medication Question | | 2015 | | NEUROSURGERY [address] | DO [address] | | | | | [address] [facility] | [address] [place], [place] | | | | | [place], [place] | [id number] | | | | | [address] | | | | | | [phone] | | | +--------+ + + + [...]
--- OUTSIDE RECORDS SUMMARY | ~2019-10-27 | XMS | Encounter Summary ---
Demographics + + + | Address | [address] | | | [place] [address] | + + + | Home Phone [...] + + + + + | Lucy Winchesetr | ECON | [place], | | | | | [place] [address] | | + + + + + | Kellen Briones | ECON | [place] | | | | | [address] | | + + + + + Care Team Providers + +------+ + | Care Supervisor Slitting And Shipping Name | Role | Phone | + +------+ + | Barb Marte | THANG | | + +------+ + Encounter Details +--------+ + + + + | Date | Type | Department | Care Team | Description | +--------+ + + + + | 03/05/ | Hospital | [facility] | Barb Marte PA | Abnormal mammogram | | 2018 | Encounter | MED CTR ULTRASOUND | [address] | | | | | [address] | [address] [place] | | | | | [place] | [address] | | | | | [address] | | | | | | [phone] | | | +--------+ + + + [...]
--- OUTSIDE RECORDS SUMMARY | ~2019-10-27 | XMS | Encounter Summary ---
Demographics + + + | Address | [address] | | | [place] [address] | + + + | Home Phone [...] [place], | | | | | [place] [address] | | + + + + + | Kellen Briones | ECON | [place], [place] | | | | | [address] | | + + + + + Care Team Providers + +------+ + | Care Label Rewinder Name | Role | Phone | + [...] | Lumbar | [place], | [address] | | | | | radiculopath | Tk Monreal MD | [place], | | | | | y | [address] | [place] | | | | | Procedures | [place] | [address] | | | | | [place] INJECT | [place] | Phone: | | | | | ANES/STEROID | [address] | [phone] | | | | | FORAMEN | Phone: | Fax: | | | | | LUMBAR/SACRA | [phone] | [phone] | | | | | L W IMG | Fax: | | | | | | GUIDE ,1 | [phone] | | | | | | LEVEL [...] | 05/12/ | Hospital | [facility] | Mono Diaz, | Lumbar radiculopathy | | 2018 | Encounter | MED CTR XRAY [address] | PA-C [address] | | | | | [place] | [address] [place] | | | | | [place] [address] | [place] [address] | | | | | [phone] | [phone] | | | | | | | | | | | | Chess Instructor, Ws | | | | | | [...] Address | [facility] | Phone Number | | Organization | [...]
--- OUTSIDE RECORDS SUMMARY | ~2019-10-27 | XMS | Encounter Summary ---
Demographics + + + | Address | [address] | | | [place] [address] | + + + | Home Phone [...] [place], | | | | | [place] [address] | | + + + + + | Kellen Briones | ECON | [place], [place] | | | | | [address] | | + + + + + Care Team Providers + +------+ + | Care Manager Business Name | Role | Phone | + [...] + + | 06/19/ | Office | [facility] | [place], | Lumbar radiculopathy | | 2017 | Visit | PHYSIATRY [address] | [address]YA[address] | (Primary Dx); | | | | [address] | [address] | Spinal stenosis of | | | | [place], [place] | [place] [address] | lumbar region with | | | | [address] | [phone] | wwqqkdprczjqp-C3-A7 | | | | [phone] | | level moderately | | | [...] of blood sugars if you are diabetic. nursing home risk can lead to osteoporosis which is [...] of the procedure you must provide a form setter/driver to take you home. For all procedur [...] and narcotic medications use; she currently uses [place], Flexeril and ga bapentin. She just underwent [...] apparent deficits with short or termite control representative memory. She has appropriate fund of knowledge [...] 2. Spinal stenosis of lumbar region with ogtyiwmcwhnth-R0-C0 level moderately severe 3. DDD (degenerative disc [...] 06/27/2016 Bilateral Transforaminal Epidural Steroid Injections | [facility] | | Diagnosis: Lumbar radiculopathy ICD-10 Code M54.16 [place] | [facility] | | Lizett Winchester presents to the fluoroscopy suite for [facility] | | fluoroscopically-guided bilateral L5-S1 transforaminal [...] ST. | [address] | [place], [place] | [phone] | | [facility] | | [address] | | | - IMAGING | | | | + + + + + documented in this encounter Visit Diagnoses + + | Diagnosis | + + | Lumbar radiculopathy - Primary Thoracic or lumbosacral neuritis or radiculitis, | | unspecified | + + | Spinal stenosis of lumbar region with dzoxjlhyitofx-B1-B7 level moderately severe | | Spinal stenosis, [...]
--- OUTSIDE RECORDS SUMMARY | ~2019-10-27 | XMS | Encounter Summary ---
Demographics + + + | Address | [address] | | | [place] [address] | + + + | Home Phone [...] [place], | | | | | [place] [address] | | + + + + + | Kellen Briones | ECON | [place], [place] | | | | | [address] | | + + + + + Care Team Providers + +------+ + | Care Box Hinge And Lock Attacher Name | Role | Phone | + [...] | | | | | [place], | [place] [address] | | | | | | [place] [address] | Phone: | | | | | | Phone: | [phone] | | | | | | [phone] | Fax: | | | | | | Fax: | [phone] | | | | | | [phone] | | +--------+ + + + + [...] + + | 09/03/ | Office | [facility] | Patrick Gaffney MD [address] | Mental status change | | 2012 | Visit | NEUROLOGY [place] | [address] | (Primary Dx); Sleep | | | | [address] [facility], | [address] [place], | disorder | | | | [address] [place] | [place] [address] | | | | | [place] [address] | [phone] | | | | | [phone] | | | +--------+---------+ + + + [...]
--- OUTSIDE RECORDS SUMMARY | ~2019-10-27 | XMS | Encounter Summary ---
Demographics + + + | Address | [address] | | | [place] [address] | + + + | Home Phone [...] [place], | | | | | [place] [address] | | + + + + + | Kellen Briones | ECON | [place], [place] | | | | | [address] | | + + + + + Care Team Providers + +------+ + | Care Technical Service Engineer Name | Role | Phone | [...] [place] | | | | | | [address] | | | | | | [phone] | | | +--------+ + + + [...]
--- OUTSIDE RECORDS SUMMARY | ~2019-10-27 | XMS | Encounter Summary ---
Demographics + + + | Address | [address] | | | [place] [address] | + + + | Home Phone [...] [place], | | | | | [place] [address] | | + + + + + | Kellen Briones | ECON | [place], [place] | | | | | [address] | | + + + + + Care Team Providers + +------+ + | Care Brigadier Name | Role | Phone | + [...] | | ORTHOPEDIC SPINE | [address] [place], [place] | | | | | [address] | [address] | | | | | [place] | | | | | | [address] | | | | | | [phone] | | | +--------+ + + + [...]
--- OUTSIDE RECORDS SUMMARY | ~2019-10-27 | XMS | Encounter Summary ---
Demographics + + + | Address | [address] | | | [place] [address] | + + + | Home Phone [...] [place], | | | | | [place] [address] | | + + + + + | Kellen Briones | ECON | [place] | | | | | [address] | | + + + + + Care Team Providers + +------+ + | Care Regulatory Technician Name | Role | Phone | + +------+ + | Barb Marte | THANG | | + +------+ + Encounter Details +--------+ + + + + | Date | Type | Department | Care Team | Description | +--------+ + + + + | 04/09/ | Hospital | [facility] | Monster White MD | Lumbar stenosis with | | 2019 | Encounter | MED CTR XRAY [address] | [address]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 | | | | [place] | [address] [place] | claudication | | | | [place] [address] | [id number] | | | | | [phone] | | | +--------+ + + + [...]
--- OUTSIDE RECORDS SUMMARY | ~2019-10-27 | XMS | Encounter Summary ---
Demographics + + + | Address | [address] | | | [place] [address] | + + + | Home Phone [...] [place], | | | | | [place] [address] | | + + + + + | Kellen Briones | ECON | [place], [place] | | | | | [address] | | + + + + + Care Team Providers + +------+ + | Care Metal Sprayer Production Name | Role | Phone | + [...] | Lumbar | [place], | [address] | | | | | radiculopath | Tk Monreal MD | [place], | | | | | y | [address] | [place] | | | | | Procedures | [place] | [address] | | | | | [place] INJECT | [facility] [place] | Phone: | | | | | ANES/STEROID | [address] | [phone] | | | | | FORAMEN | Phone: | Fax: | | | | | LUMBAR/SACRA | [phone] | [phone] | | | | | L W IMG | Fax: | | | | | | GUIDE ,1 | [phone] | | | | | | LEVEL [...] + + | 11/15/ | Hospital | [facility] | [place], | Spondylolisthesis of | | 2015 | Encounter | MED CTR XRAY [address] | [address] | lumbar region; | | | | [place] | [facility] [address] | Lumbar | | | | [place] [address] | [place] [address] | radiculopathy; | | | | [phone] | [phone] | Spinal stenosis of | | | | | | lumbar region with | | | | | Irrigation Service Technician [facility] | gebljhhashoud-A9-V9 | | | | | [place] [...] with | | | | | | jixigcicghvuo-W9-H1 | | | | | | level [...] Lumbar radiculopathy ICD-10 Code M54.16 Clementine | [facility] | | Lizett Winchester presents to the fluoroscopy suite for [facility] | [...] [address] | [place] | [phone] | | [facility] | | [address] | | | - IMAGING | | | | + + + + + documented in this encounter Visit Diagnoses + + | Diagnosis | + + | Spondylolisthesis of lumbar region Acquired spondylolisthesis | + + | Lumbar radiculopathy Thoracic or lumbosacral neuritis or radiculitis, unspecified | + + | Spinal stenosis of lumbar region with fprsqmbfwrdge-D8-I2 level moderately severe | | Spinal stenosis, [...]
--- OUTSIDE RECORDS SUMMARY | ~2019-10-27 | XMS | Encounter Summary ---
Demographics + + + | Address | [address] | | | [place] [address] | + + + | Home Phone [...] [place], | | | | | [place] [address] | | + + + + + | Kellen Briones | ECON | [place] | | | | | [address] | | + + + + + Care Team Providers + +------+ + | Care Staff Toxicologist Name | Role | Phone | + +------+ + | Barb Marte | PCP | | + +------+ + Encounter Details +--------+ + + + + | Date | Type | Department | Care Team | Description | +--------+ + + + + | 01/31/ | Hospital | [facility] | Conversion | Diagnosis unknown | | 2018 | Encounter | CONVERSION DEP [address] | Transaction, | | | | | [place] | Provider Unknown | | | | | ANA DANIELS | [phone] | | | | | [phone] | | | | | | [phone] | | | +--------+ + + + [...]
--- OUTSIDE RECORDS SUMMARY | ~2019-10-27 | XMS | Encounter Summary ---
Demographics + + + | Address | [address] | | | [place] [address] | + + + | Home Phone [...] [place], | | | | | [place] [address] | | + + + + + | Kellen Briones | ECON | [place], [place] | | | | | [address] | | + + + + + Care Team Providers + +------+ + | Care Starch Cooker Name | Role | Phone | + [...] | Lumbar | Marissa, | [address] | | | | | radiculopath | Tk Monreal MD | [place], | | | | | y | [address] | [place] | | | | | Procedures | [address] [place] | [address] | | | | | CA INJECT | [facility], [place] | Phone: | | | | | ANES/STEROID | [address] | [phone] | | | | | FORAMEN | Phone: | Fax: | | | | | LUMBAR/SACRA | [phone] | [phone] | | | | | L W IMG | Fax: | | | | | | GUIDE ,1 | [phone] | | | | | | LEVEL [...] + + | 06/27/ | Hospital | [facility] | Bogdanowicz, | Lumbar | | 2017 | Encounter | MED CTR XRAY [address] | AYAAN Taylor [address] | radiculopathy; | | | | [address] [place] | [facility], [address] | Spinal stenosis of | | | | [place] [address] | [place] [address] | lumbar region with | | | | [phone] | [phone] | izvdlseedwtez-D7-B3 | | | | | | level moderately | | | | | [employer], [place] | severe; DDD | | | [...] with | | | | | | fozjrrboxdnpz-F1-D7 | | | | | | level [...] Lumbar radiculopathy ICD-10 Code M54.16 Clementine | [facility] | | Lizett Winchester presents to the fluoroscopy suite for [facility] | | fluoroscopically-guided bilateral L5-S1 [...] [address] | [place] | [phone] | | [facility] | | [address] | | | - IMAGING | | | | + + + + + documented in this encounter Visit Diagnoses + + | Diagnosis | + + | Lumbar radiculopathy Thoracic or lumbosacral neuritis or radiculitis, unspecified | + + | Spinal stenosis of lumbar region with hvblwaxlsjofc-G0-E7 level moderately severe | | Spinal stenosis, [...]
--- OUTSIDE RECORDS SUMMARY | ~2019-10-27 | XMS | Encounter Summary ---
Demographics + + + | Address | [address] | | | [place] [address] | + + + | Home Phone [...] [place], | | | | | [place] [address] | | + + + + + | Kellen Briones | ECON | [place], [place] | | | | | [address] | | + + + + + Care Team Providers + +------+ + | Care Public Health Dietitian Name | Role | Phone | [...] + | 11/05/ | Telephone | [facility] | Irving Becerril, | Imaging Only | | 2017 | | NEUROSURGERY [address] | DO [address] | | | | | [address] | [address] [place], [place] | | | | | [place], [place] | [id number] | | | | | [address] | | | | | | [phone] | | | +--------+ + + + [...]
--- OUTSIDE RECORDS SUMMARY | ~2019-10-27 | XMS | Encounter Summary ---
Demographics + + + | Address | [address] | | | [place] [address] | + + + | Home Phone [...] [place], | | | | | [place] [address] | | + + + + + | Kellen Briones | ECON | [place], [place] | | | | | [address] | | + + + + + Care Team Providers + +------+ + | Care Pin Ball Machine Mechanic Name | Role | Phone [...] [address]TH | | | | | | ([facility]) S/P | AVE [address] | | | | | | cervical | [place] | | | | | | spinal | [address] | | | | | | fusion | Phone: | | | | | | | [phone] | | | | | | | Fax: | | | | | | | [phone] | | +--------+ + + + + + Reason for Visit +---------+ + | Reason | Comments | +---------+ + | Post Op | 3m PO | +---------+ + Encounter Details +--------+---------+ + + + | Date | Type | Department | Care Team | Description | +--------+---------+ + + + | 07/04/ | Office | [facility] | Irving Becerril, | Cervical myelopathy | | 2017 | Visit | NEUROSURGERY [address] | DO [address] | ([facility]) (Primary Dx); | | | | [address] | [address] [place], [place] | S/P cervical spinal | | | | [place], [place] | [id number] | fusion | | | | [address] | | | | | | [phone] | | | +--------+---------+ + + + [...] m the original. Irving Becerril DO [address] [facility], [address] [place] [address] FAX: NEUROSURGERY FOLLOW-UP CHIEF COMPLAINT: Chief Complaint [...] (HCC) Hypertension Cancer (HCC) Right breast Hyperlipidemia SC (myocardial infarction) (HCC) GERD (gastroesophageal reflux disease) Asthma Arthritis Lumbar radiculopathy 07/23/2012 DDD (degenerative disc disease), lumbar 07/23/2012 Spinal stenosis of lumbar region with sucviwjlhsrld-H5-U2 level moderately severe 2012 Facet arthritis of [...] 1989' Mastectomy, radical 1987 Right Breast reconstruction 6310-3742 About 10 surgeries Bone spur left foot Blepharoptosis repair 2009 bilateral Cervical spine surgery Anterior 03/30/2016 Procedure: C3-4, C4-5, C5-6, C6-7 Anterior Cervical Discectomy w/ Fusion and Plating; Enamorado rgeon: Irving Becerril DO; Location: [facility] MAIN OR CURRENT MEDICATIONS: Current Outpatient [...] (HCC) Hypertension Cancer (HCC) Right breast Hyperlipidemia SC (myocardial infarction) (HCC) GERD (gastroesophageal reflux disease) Asthma Arthritis Lumbar radiculopathy 07/23/2012 DDD (degenerative disc disease), lumbar 07/23/2012 Spinal stenosis of lumbar region with fibyhqonyxrbb-Y7-L7 level moderately severe 2012 Facet arthritis of [...]
--- OUTSIDE RECORDS SUMMARY | ~2019-10-27 | XMS | Encounter Summary ---
Demographics + + + | Address | [address] | | | [place] [address] | + + + | Home Phone [...] [place], | | | | | [place] [address] | | + + + + + | Kellen Briones | ECON | [place] | | | | | [address] | | + + + + + Care Team Providers + +------+ + | Care Menu Planner Name | Role | Phone | [...] | | | | Lumbar | | [address] Phone: | | | | | degenerative | | [phone] | | | | | disc | | Fax: | | | | | disease | | [phone] | | | | | Procedures | | | | | | | LAMINEC/FACE | | | | | | | TECT/FORAMIN | | | | | | | ,LUMBAR 1 | | | | | | | [place] | | | | | | [...] Description | +--------+---------+ + + + | 07/22/ | Surgery | [facility] | Monster White MD | FUSION LUMBAR W/ | | 2019 | [facility] | [address] | LATERAL APPROACH | | | | OPERATING ROOM [address] | [address] [place], [place] | (XLIF) L4/[address] | | | | [address] | [address] | | | | | [place], [place] | | | | | | [address] | | | | | | [phone] | | | +--------+---------+ + + + [...] Physician Discharge Summary Patient ID: Clementine Winchester [id number] 79 y.o. 1940 Admit date: 07/22/2019 Discharge [...] keep wound clean and dry Follow-up with [facility] within 2 weeks. Activity restrictions, dressing changes [...] indomethacin | Take 1 capsule by | | 0 | 07/29/19 | | | [...] We will continue to follow. Flor Soto OTR/Braulio - 07/28/2019 9:40 AM PST MISSED OCCUPATIONAL THERAPY VISIT: Therapy attempted to see the following patient today: Clementine Winchetser Missed Visit (treatment on hold)(awaiting CT scan) [...] Itzel Adams RN - 07/28/2019 4:11 AM PSTNoc chart check complete. Electronically si gned by Itzel Alejandre RN at 07/28/2019 4:12 AM Macie Chapa PA-C - 07/24/2019 9:53 AM PST Orthopedic Spine Progress Note Postop [facility] Neurosurgery Provider: Macie Cordova PA-C Date : [...] L4/5 (N/A) Hospital Course: 07/23/2019, SHELBY Calvo Lizett Winchester is a 79 y.o. female patient [...] anesthesia Arthritis Asthma Back pain Breast cancer ([facility]) 1987 Cancer ([facility]) Right breast Chronic diarrhea Chronic narcotic use COPD (chronic obstructive pulmonary disease) ([facility]) Coronary artery disease DDD (degenerative disc disease), cervical 05/13/2013 DDD (degenerative disc disease), lumbar 07/23/2012 Depression Diabetes mellitus ([facility]) Diabetes type 2, controlled ([facility]) Facet arthritis of cervical region 05/13/2013 Facet arthritis of lumbar region-Most severe at L4-L5,L5-S1 07/23/2012 Full dentures upper & lower GERD (gastroesophageal reflux disease) Heart attack ([facility]) Hyperlipidemia Hypertension Lumbar radiculopathy 07/23/2012 AK (myocardial infarction) ([facility]) Neck pain on right side 05/13/2013 Oxygen dependent 2 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 PTSD (post-traumatic stress disorder) Snoring Spinal stenosis of lumbar region with ulajqwfazbxyk-T7-H1 level moderately severe 2012 Thyroid disease Social History Socioeconomic History Marital status: Spouse name: Not on file Number of children: Not on file Years of education: 14 Highest education level: Not on file Occupational History 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 Employer: [employer] Social Needs Financial resource [...] file Gets together: Not on file Attends mu-ism service: Not on file Active member of [...] bilateral bone spur left foot BREAST RECONSTRUCTION [id number] About 10 surgeries CARPAL TUNNEL RELEASE Bilateral CERVICAL SPINE SURGERY Anterior 03/30/2016 Procedure: C3-4, C4-5, C5-6, C6-7 Anterior Cervical Discectomy w/ Fusion and Plating; Bryan geon: Irving Becerril DO; Location: [facility] MAIN OR CORONARY ARTERY BYPASS GRAFT 2009 HYSTERECTOMY, TOTAL ABDOMINAL 1969 LUMBAR SPINE SURGERY N/A 07/22/2019 Procedure: FUSION LUMBAR W/ LATERAL APPROACH (XLIF) L4/5; Surgeon: Monster White MD; Loca tion: [facility] MAIN OR LUMBAR SPINE SURGERY N/A 07/22/2019 Procedure: LAMINECTOMY POSTERIOR LUMBAR SPINAL FUSION L4/5; Surgeon: Monster White MD; L ocation: [facility] MAIN OR MASTECTOMY MASTECTOMY, RADICAL 1986 Right [...] H/O CVA/stroke 03/30/2016 Unknown Priority: Low H/O AK (myocardial infarction) 03/30/2016 Unknown Priority: Low H/O [...] Unknown Spinal stenosis of lumbar region with jztqrtvuhgbjc-H8-T6 level moderately severe 07/23 Unknown Facet arthritis [...] and collapse Unknown Cancer Unknown Hyperlipidemia Unknown AK (myocardial infarction) Unknown GERD (gastroesophageal reflux disease) [...] 1. Type 1 diabetes mellitus without complication ([facility]) 2. Lumbar degenerative disc disease 3. Spondylolisthesis of lumbar region Past Medical History: Diagnosis Date Acid reflux disease Adverse effect of anesthesia trouble urinating after anesthesia Arthritis Asthma Back pain Breast cancer ([facility]) 1987 Cancer ([facility]) Right breast Chronic diarrhea Chronic narcotic use COPD (chronic obstructive pulmonary disease) ([facility]) Coronary artery disease DDD (degenerative disc disease), cervical 05/13/2013 DDD (degenerative disc disease), lumbar 07/23/2012 Depression Diabetes mellitus ([facility]) Diabetes type 2, controlled ([facility]) Facet arthritis of cervical region 05/13/2013 Facet arthritis of lumbar region-Most severe at L4-L5,L5-S1 07/23/2012 Full dentures upper & lower GERD (gastroesophageal reflux disease) Heart attack ([facility]) Hyperlipidemia Hypertension Lumbar radiculopathy 07/23/2012 AK (myocardial infarction) ([facility]) Neck pain on right side 05/13/2013 Oxygen dependent 2 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 PTSD (post-traumatic stress disorder) Snoring Spinal stenosis of lumbar region with dcbzwftnwatfi-E0-V1 level moderately severe 2012 Thyroid disease Current Facility-Administered Medications Medication Dose Route Frequency Provider Last Rate Last Dose [START ON 07/25/2019] aspirin chewable tablet 81 mg 81 mg Oral Daily Yifan Ang, GUARD DRIVER atorvaSTATin (LIPITOR) tablet 40 mg 40 mg Oral Nightly Yifan Ang, GUARD DRIVER 40 mg at 2023 balanced electrolytes in water (PLASMALYTE-148/NORMOSOL-R) infusion Intravenous Hayden nuous Monster White MD 100 mL/hr at 07/22/19 0651 ceFAZolin in dextrose (ANCEF, KEFZOL) IVPB 1 g 1 g Intravenous 3 times per day Yifan Ang, GUARD DRIVER 100 mL/hr at 07/23/19 0617 1 g at 07/23/19 0617 cyanocobalamin (VITAMIN B-12) tablet 100 mcg 100 mcg Oral Daily Yifan Ang, GUARD DRIVER 100 mcg at 07/23/19 0801 docusate sodium (COLACE) capsule 100 mg 100 mg Oral BID Yifan Ang, GUARD DRIVER 100 mg at 0 07/22/192023 DULoxetine (CYMBALTA) DR capsule 20 mg 20 mg Oral Daily Yifan Ang, GUARD DRIVER 20 mg at 0801 fentaNYL (DURAGESIC) 25 mcg/hr 1 patch 1 patch Transdermal Q72H Yifan Ang, GUARD DRIVER 1 p atch at 07/22/19 1407 furosemide (LASIX) tablet 20 mg 20 mg Oral Daily Yifan Ang, GUARD DRIVER 20 mg at 07/22/19 1440 gabapentin (NEURONTIN) capsule 100 mg 100 mg Oral BID Yifan Ang, GUARD DRIVER 100 mg at 0801 HYDROmorphone (DILAUDID) injection 0.2-0.4 mg 0.2-0.4 mg Intravenous Q1H PRN Yifan An g, GUARD DRIVER lactulose liquid 30 mL 30 mL Oral Daily PRN Yifan Ang, GUARD DRIVER levothyroxine (SYNTHROID) tablet 25 mcg 25 mcg Oral Daily Yifan Ang, GUARD DRIVER 25 mcg at 07/23/19 0800 lisinopril (PRINIVIL, ZESTRIL) tablet 5 mg 5 mg Oral Daily Yifan Ang, GUARD DRIVER 5 mg at 07/23/19 0801 metFORMIN (GLUCOPHAGE) tablet 500 mg 500 mg Oral Nightly Yifan Ang, GUARD DRIVER 500 mg at 07/22/192023 methocarbamol (ROBAXIN) tablet 500 mg 500 mg Oral Q6H PRN Yifan Ang, GUARD DRIVER 500 mg at 07/22/19 1825 ondansetron (ZOFRAN ODT) disintegrating tablet 4 mg 4 mg Oral Q6H PRN Yifan Ang, GUARD DRIVER oxyCODONE (ROXICODONE) tablet 2.5-10 mg 2.5-10 mg Oral Q3H PRN Yifan Ang, GUARD DRIVER 5 mg at 07/23/19 0309 pantoprazole (PROTONIX) DR tablet 40 mg 40 mg Oral QAM AC Yifan Ang, GUARD DRIVER 40 mg at 07/23/19 0618 polyethylene glycol (MIRALAX) powder 17 g 17 g Oral Daily Yifan Ang, GUARD DRIVER potassium chloride (KLOR-CON) ER tablet 10 mEq 10 mEq Oral Daily Yifan Ang, GUARD DRIVER 10 mEq at 07/23/19 0801 senna (SENOKOT) tablet 8.6 mg 8.6 mg Oral BID Yifan Ang, GUARD DRIVER 8.6 mg at 07/22/19 20 24 sodium chloride 0.45% (1/2 NS) infusion Intravenous Continuous Yifan Ang, GUARD DRIVER 100 m L/hr at 07/22/192027 sodium chloride 0.9% (NS) 1,000 mL bolus Intravenous Once Yifan Ang, GUARD DRIVER 1,000 mL/h r at 07/23/19 0758 Allergies [...] Alignment: There | | | are 5 mew-whi-ffmrucd lumbar vertebral type bodies. There is 5 [...] + + | Howard, Rad Results In 07/28/2019 12:44 PM PST | | CT [...] FINDINGS: | | Alignment: There are 5 pxp-tbi-blfygcc lumbar vertebral type bodies. | | There [...] 0.01Comment: Testing | 0.00 - 0.10 | [facility] | | | Absolute | performed at [facility], [address] | LABORATORY | | | | [place], | | | | | | [place] [address] | | | | + + + + + + + + | Specimen | + + | Blood | + + + + + + + | Performing | Address | City/State/Zipcode | Phone Number | | Organization | | | | + + + + + | [facility] | [address] | [place] [address] | [phone] | + + + + + Comprehensive [...] 15 | 10 - 65 U/L | [facility] | | | | | | LABORATORY | | + + + + + + | Estimated | >60Comment: GFR <60: | >60 | [facility] | | | GFR | [...] | | | | | performed at [facility], [address] | | | | | | [facility], | | | | | | [place] [address] | | | | + + + + + + + + | Specimen | + + | Blood | + + + + + + + | Performing | Address | City/State/Zipcode | Phone Number | | Organization | | | | + + + + + | [facility] | [address] | [place] [address] | [phone] | + + + + + Comprehensive [...] 17 | 10 - 65 U/L | [facility] | | | | | | LABORATORY | | + + + + + + | Estimated | >60Comment: GFR <60: | >60 | [facility] | | | GFR | [...] | | | | | performed at [facility], [address] | | | | | | [facility], | | | | | | [place] [address] | | | | + + + + + + + + | Specimen | + + | Blood | + + + + + + + | Performing | Address | City/State/Zipcode | Phone Number | | Organization | | | | + + + + + | [facility] | [address] | [place] [address] | [phone] | + + + + + CBC [...] | | | Absolute | performed at [facility], [address] | [address] | LABORATORY | | | | [address], | | | | | | [place] [address] | | | | + + + + + + + + | Specimen | + + | Blood | + + + + + + + | Performing | Address | City/State/Zipcode | Phone Number | | Organization | | | | + + + + + | [facility] | [address] | [place] [address] | [phone] | + + + + + Uric Acid (07/28/2019 8:30 AM PST) + + + + + + | Component | Value | Ref Range | Performed | Pathologist | | | | | At | Signature | + + + + + + | Uric Acid | 7.6 (H)Comment: Testing | 2.2 - 7.1 mg/dL | [facility] | | | | performed at [facility], [address] | | LABORATORY | | | | [address], | | | | | | [place] [address] | | | | + + + + + + + + | Specimen | + + | Blood | + + + + + + + | Performing | Address | City/State/Zipcode | Phone Number | | Organization | | | | + + + + + | [facility] | [address] | [place] [address] | [phone] | + + + + + CBC [...] | Diff Type | AUTOMATEDComment: | | [facility] | | | | Testing performed at | | LABORATORY | | | | [facility], [address] [facility] [address] | | | | | | [place] | | | | | | [address] | | | | + + + + + + + + | Specimen | + + | Blood | + + + + + + + | Performing | Address | City/State/Zipcode | Phone Number | | Organization | | | | + + + + + | [facility] | [address] | [place] [address] | [phone] | + + + + + Basic [...] 54 (L)Comment: GFR <60: | >60 | [facility] | | | GFR | [...] | | | | | | MDRD IDIL traceable | | | | | | equation.Testing | | | | | | performed at [facility], [address] | | | | | | [facility], | | | | | | [place] [address] | | | | + + + + + + + + | Specimen | + + | Blood | + + + + + + + | Performing | Address | City/State/Zipcode | Phone Number | | Organization | | | | + + + + + | [facility] | [address] | [place] [address] | [phone] | + + + + + POC Glucose (07/22/2019 10:30 AM PST) + + + + + + | Component | Value | Ref Range | Performed | Pathologist | | | | | At | Signature | + + + + + + | Glucose, | 134 (H)Comment: Testing | 65 - 99 mg/dL | [facility] | | | POC | performed at [facility];[address] | LABORATORY | | | | [address];[place] | | | | | | [address] | | | | + + + + + + + + | Specimen | + + | | + + + + + + + | Performing | Address | City/State/Zipcode | Phone Number | | Organization | | | | + + + + + | [facility] | [address] | [place] [address] | [phone] | + + + + + KALPESH Mcgrath (07/22/2019 10:05 AM PST) + + | Specimen | + + | | + + + + + | Impressions | Performed At | + + + | Fluoroscopic service for procedure. Signed by: Lashay, | [facility] | | Carlos Mckeon [...] | | | | Signed by: Linda Metz, Carlos | | Sign Date/Time: 07/22/2019 10:14 AM [...] | | | POC | performed at [facility];[address] | | LABORATORY | | | | [address];[place], [place] | | | | | | [address] | | | | + + + + + + + + | Specimen | + + | | + + + + + + + | Performing | Address | City/State/Zipcode | Phone Number | | Organization | | | | + + + + + | [facility] | [address] | [place] [address] | [phone] | + + + + + POC Glucose (07/22/2019 6:31 AM PST) + + + + + + | Component | Value | Ref Range | Performed | Pathologist | | | | | At | Signature | + + + + + + | Glucose, | 99Comment: Testing | 65 - 99 mg/dL | [facility] | | | POC | performed at [facility];[address] | | LABORAT[address] | | | | [address];[place] | | | | | | [address] | | | | + + + + + + + + | Specimen | + + | | + + + + + + + | Performing | Address | City/State/Zipcode | Phone Number | | Organization | | | | + + + + + | [facility] | [address] | [place] [address] | [phone] | + + + + + Dulce LORENZO (07/22/2019 6:30 AM PST) + + + + + + | Component | Value | Ref Range | Performed | Pathologist | | | | | At | Signature | + + + + + + | INR | 1.0Comment: REFERENCE | | [facility] | | | | RANGE:0.9 - 1.2 [...] | | | | | performed at [facility] | | | | | | [facility];[place], [place] | | | | | | [address] | | | | + + + + + + + + | Specimen | + + | Blood | + + + + + + + | Performing | Address | City/State/Zipcode | Phone Number | | Organization | | | | + + + + + | [facility] | [address] | [place] [address] | [phone] | + + + + + Basic [...] 49 (L)Comment: GFR <60: | >60 | [facility] | | | GFR | [...] | | | | | performed at [facility];[address] | | | | | | [facility];[place], [place] | | | | | | [address] | | | | + + + + + + + + | Specimen | + + | Blood | + + + + + + + | Performing | Address | City/State/Zipcode | Phone Number | | Organization | | | | + + + + + | [facility] | [address] | [place] [address] | [phone] | + + + + + Type [...] + + + | BB BAND | [id number] | | [facility] | | | | | | LABORATORY | | + + + + + + | BB BAND | Testing performed at | | [place] | | | | [facility];[address] LAB[address]AT[address] | | [address];[place] [address] | | | | + + + + + + + + | Specimen | + + | Blood | + + + + + + + | Performing | Address | City/State/Zipcode | Phone Number | | Organization | | | | + + + + + | [facility] | [address] | [place] [address] | [phone] | + + + + + documented [...] | | +---+---+ + +-------+ +---------+---+---+ | bacitracin injection PRN, | Given | 07/22/19 | 50,000 | | | | Starting 07/22/19 at 0804, | | 20 8:04 | Units | | | | Intra-op | | AM PST | | | | + +-------+ +---------+---+---+ +---+---+ | | | +---+---+ + +---------+ +---+-------+---+ | balanced electrolytes in water | New Bag | 07/22/19 | | 100 | | | (PLASMALYTE-148/NORMOSOL-R) | | 20 6:51 | | mL/hr | | | infusion at 100 mL/hr, | | AM PST | | | | | Intravenous, CONTINUOUS, Starting | | | | | | | 07/22/19 at 0630 | | | | | | + +---------+ +---+-------+---+ +---+---+ | | | +---+---+ + +-------+ +--------+---+---+ | bupivacaine (PF) (MARCAINE) | Given | 07/22/19 | 50 mLs | | | | 0.5% 30 mL with lidocaine | | 20 8:04 | | | | | 1%-EPINEPHrine 1:100,000 20 mL | | AM PST | | | | | Optesia Mixture PRN, Starting | | | | | | | 07/22/19 at 0804, Intra-op | | | | | | [...] | capsule 200 mg 200 mg, Oral, 2 | | 20 7:46 | | | [...] | | +-------+ +-------+---+---+ | Given | 02/24/20 | 20 mg | | | | [...] | | | DAILY, First dose on [facility] 07/23/19 | | AM PST | [...] | | | | First dose on [facility] 07/23/19 at 0900 | | AM [...] AM PST | | | | | Sat07/22/19 at 1330, Indication: | | | | [...] + +---------+ +---+-------+---+ | sodium chloride 0.45% (12 NS) | New Bag | 07/23/19 | [...] +---+-------+---+ +---+---+ | | | +---+---+ + +-------+ +--------+---+---+ | thrombin (recombinant) | Given | 07/22/19 | 5,000 | | | | (RECOTHROM) solution PRN, | | 20 8:04 | Units | | | | Starting 07/22/19 at 0804, | | AM PST | | | | | Intra-op | | | | | | + +-------+ +--------+---+---+ +---+---+ | | | +---+---+ documented in this encounter
--- OUTSIDE RECORDS SUMMARY | ~2019-10-27 | XMS | Encounter Summary ---
Demographics + + + | Address | [address] | | | [place] [address] | + + + | Home Phone [...] [place], | | | | | [place] [address] | | + + + + + | Kellen Briones | ECON | [place], [place] | | | | | [address] | | + + + + + Care Team Providers + +------+ + | Care Rock Crusher Name | Role | Phone | [...] Thoracic or | [place], | [address] | | | | | lumbosacral | Tk Monreal MD | [place], | | | | | neuritis or | [address] | [place] | | | | | | ST [place] | [address] | | | | | radiculitis, | [place], [place] | Phone: | | | | | unspecified | [address] | [phone] | | | | | Procedures | Phone: | Fax: | | | | | [place] INJECT | [phone] | [phone] | | | | | ANES/STEROID | Fax: | | | | | | FORAMEN | [phone] | | | | | | LUMBAR/SACRA [...] + + | 02/02/ | Hospital | [facility] | [place], | Spinal stenosis of | | 2013 | Encounter | MED CTR XRAY [address] | AYAAN Taylor [address] | lumbar region with | | | | [address] [place] | [address] | [id number]-E3 | | | | [place] [address] | [place] [address] | level moderately | | | | [phone] | [phone] | severe (Primary Dx); | | | | | | Spondylolisthesis | | | | | Tk Ann T, | of lumbar region; | | | | | MD [address] | Lumbar radiculopathy | | | | | [place] | | | | | | [id number] | | | | | | | | | | | | Bench Assembly InspectorJordan | | | | | | [place] [...] | | TRANSFORAMINAL | | PDT | [id number] | results section. | | | | [...] radiculopathy ICD-9 Code 724.4 Clementine Phoenix | [facility] | | [...] | + + + + + | [facility] | [address] | [place] | [phone] | | [facility] | | [address] | | | - IMAGING | | | | + + + + + documented in this encounter Visit Diagnoses + + | Diagnosis | + + | Spinal stenosis of lumbar region with sskrnhbtyrbht-C1-A6 level moderately severe - | | Primary [...]
--- OUTSIDE RECORDS SUMMARY | ~2019-10-27 | XMS | Encounter Summary ---
Demographics + + + | Address | [address] | | | [place] [address] | + + + | Home Phone [...] [place], | | | | | [place] [address] | | + + + + + | Kellen Briones | ECON | [place], [place] | | | | | [address] | | + + + + + Care Team Providers + +------+ + | Care Merchandise Planning Manager Name | Role | Phone | [...] + + | 04/06/ | Telephone | [facility] | Irving Becerril, | Other (Post op call) | | 2015 | | NEUROSURGERY [address] | DO [address] | | | | | [address] [facility] | [address] [place], [place] | | | | | [place], [place] | [id number] | | | | | [address] | | | | | | [phone] | | | +--------+ + + + [...]
--- OUTSIDE RECORDS SUMMARY | ~2019-10-27 | XMS | Encounter Summary ---
Demographics + + + | Address | [address] | | | [place] [address] | + + + | Home Phone [...] [place], | | | | | [place] [address] | | + + + + + | Kellen Briones | ECON | [place] | | | | | [address] | | + + + + + Care Team Providers + +------+ + | Care Shop Service Technician Name | Role | Phone [...] | | | [address] | [address] [place], [place] | | | | | [place], [place] | [address] | | | | | [address] | | | | | | [phone] | | | +--------+ + + + [...] | A Obed: 1.09 m/s MV Dec Bureau: 3.29 m/s2 MV DecT: 238.09 ms | [...] TR Vmax: 2.69 m/s | | | Steam And Power Supervisor: DBS Authenticated by: BUCK SOTO MD Report | | | Date/Time: -- 79_83-5-5555_29:20:29 | | + + + + + [...] | 4.30 cmLVPWd: 1.07 cmLVOT Area: 3.11 ej3JTPB Diam: 1.99 cm%FS: 46.50 %EF(Teich): | | [...] mlLAESV Index (A-L): 19.79 ml/m2LAAs A2C: 12.56 ky2MLQOX | | A-L A2C: 31.66 mlLALs A2C: 4.23 cmLAAs A4C: 13.43 oo6RUDOJ A-L A4C: 33.50 | | mlLALs A4C: 4.57 cmRAAs: 11.82 rm9WCGXU A-L: 26.21 mlRAESV MOD: 26.46 mlRALs: | | 4.52 cmTAPSE: 1.59 cmAV maxP.72 mmHgAV meanP.52 mmHgAV Vmax: 1.63 m/Shreyas | | Vmean: 1.09 m/Shreyas VTI: 32.89 cmAVA Vmax: 2.19 cm2AVA (VTI): 1.98 nx2WRIJ | | (Vmax): 0.00 cm2/m2AVAI (VTI): 0.00 cm2/m2LVOT maxP.34 mmHgLVOT meanP.29 | | mmHgLVSI Dopp: 38.17 ml/m2LVSV Dopp: 65.27 mlLVOT Vmax: 1.15 m/sLVOT Vmean: | | 0.68 m/sLVOT VTI: 20.94 cmMV A Obed: 1.09 m/sMV Dec Bureau: 3.29 m/s2MV DecT: | | 238.09 msMV E Obed: 0.78 m/sMV E/A Ratio: 0.71MV PHT: 69.04 msMVA By PHT: 3.18 | | yl4Qdkdkj e': 0.05 m/sSeptal E/e': 15.64Lateral e': 0.06 m/sLateral E/e': | | 11.34RAP: 5 mmHgRVSP: 33.95 mmHgTR maxP.95 mmHgTR Vmax: 2.69 m/s | | Steam And Power Supervisor: DBSAuthenticated by: Armen ROY Date/Time: -- | | 28_36-2-5886_54:20:29 IMPRESSION: 1. Overall left ventricular systolic function [...] A Obed: 1.09 m/s | |MV Dec Bureau: 3.29 m/s2 | |MV DecT: 238.09 ms [...] |TR Vmax: 2.69 m/s | | | |Steam And Power Supervisor: DBS | |Authenticated by: BUCK SOTO MD | |Report Date/Time: 53_43-5-1802_74:20:29 | | | |IMPRESSION: | |1. Overall [...]
--- OUTSIDE RECORDS SUMMARY | ~2019-10-27 | XMS | Encounter Summary ---
Demographics + + + | Address | [address] | | | [place] [address] | + + + | Home Phone [...] [place], | | | | | [place] [address] | | + + + + + | Kellen Briones | ECON | [place], [place] | | | | | [address] | | + + + + + Care Team Providers + +------+ + | Care Taper Operator Name | Role | Phone | + +------+ + | Anna De Guzman PA-C | PCP | | + +------+ + Encounter Details +--------+ + + + + | Date | Type | Department | Care Team | Description | +--------+ + + + + | 04/15/ | Hospital | [facility] | IsakkaydenkaileeTk mathis | | | 2012 | Encounter | MED CTR XRAY [address] | T, [address] | | | | | [place] | [place], [place] | | | | | [place] [address] | [id number] | | | | | [phone] | | | +--------+ + + + [...] At | + + + | [facility] Diagnostic Imaging | [place] | | Department [address] [facility] | [facility] | | [ rep [address]] [ rep [facility] | | [facility]] Signed | - IMAGING | | | | | Patient Name: CLEMENTINE WINCHESTER Physician: | | | : 1940 Age: 72 Sex: F Unit #: [id number] | | | Exam Date: 04/15/13 Location: [facility] | | | Report #: [id number] Page: | | | %(RAD)RES..mtdd.print.filter("pg") of %(RAD) | | | RES..mtdd.print.filter("tpg") | | | | | | Accession Number: [id number] | | | EPIDURAL STEROID INJECTION, 04/15/2013 [...] Transcribed | | | Date/Time: 04/17/2013 14:04 Marble Polisher Hand: | | | <<Signature on File>> | | | Tk Monreal | | | MD Marissa04/24/13 1211 <Electronically signed by Tk Monreal | | | Marissa ALVARADO> Tk Ann MD 04/17/13 1256 | | | Marble Polisher Hand: Toutpostbao Pqddofdluppoo14/15/13 1404 | | | | | + + + + + + + + | Performing | Address | City/State/Zipcode | Phone Number | | Organization | | | | + + + + + | [facility] | [address] | [place], [place] | [phone] | | [facility] | | [address] | | | - IMAGING | | | | + + + + + documented in this encounter Visit Diagnoses Not on filedocumented in this encounter
--- OUTSIDE RECORDS SUMMARY | ~2019-10-27 | XMS | Encounter Summary ---
Demographics + + + | Address | [address] | | | [place] [address] | + + + | Home Phone [...] [place], | | | | | [place] [address] | | + + + + + | Kellen Briones | ECON | [place], [place] | | | | | [address] | | + + + + + Care Team Providers + +------+ + | Care Deposit Clerk Name | Role | Phone | + +------+ + | Anna De Guzman PA-C | PCP | | + +------+ + Encounter Details +--------+ + + + + | Date | Type | Department | Care Team | Description | +--------+ + + + + | 03/07/ | Hospital | [facility] | Irving Becerril, | Stroke of unknown | | 2016 | Encounter | MED CTR XRAY [address] | DO [address] | etiology ([facility]); | | | | [place] | [address] [place], [place] | Cerebrovascular | | | | [place] [address] | [address] | accident (CVA), | | | | [phone] | | unspecified | | | | | Caleb San MD | mechanism (HCC); | | | | | [address] | Lumbar | | | | | [place], [place] | radiculopathy; | | | | | [address] | Cervical stenosis of | | | [...] involving | | | | | | [place] coronary | | | | | | artery of [place] | | | | | | heart [...] with | | | | | | qakddxwprgnhz-J4-L5 | | | | | | level [...] involving | | | | | | [place] coronary | | | | | | artery of [place] | | | | | | heart [...] with | | | | | | qjmehnuqdtbvz-X8-P9 | | | | | | level [...] PA and Lateral Chest COMPARISON: None. | [facility] | | FINDINGS: Sternal wires [...] + | [address] | [address] | [place] | [phone] | | [facility] | | [address] | | | - IMAGING | | [...] + + | Coronary artery disease involving [place] coronary artery of [place] heart without | | angina pectoris | + + | Type 1 diabetes mellitus without complication ([facility]) Type I (juvenile type) diabetes | | [...] | Spinal stenosis of lumbar region with skmgxmscbdxei-E1-W5 level moderately severe | | Spinal stenosis, [...]
--- OUTSIDE RECORDS SUMMARY | ~2019-10-27 | XMS | Encounter Summary ---
Demographics + + + | Address | [address] | | | [place] [address] | + + + | Home Phone [...] [place], | | | | | [place] [address] | | + + + + + | Kellen Briones | ECON | [place] | | | | | [address] | | + + + + + Care Team Providers + +------+ + | Care Anesthesiology Physician Name | Role | Phone | + +------+ + | Barb Marte | PCP | | + +------+ + Encounter Details +--------+ + + + + | Date | Type | Department | Care Team | Description | +--------+ + + + + | 01/31/ | Hospital | [facility] | Conversion | Pain | | 2018 | Encounter | CONVERSION [address] | Transaction, | | | | | [address] | Provider Unknown | | | | | [place], [place] | [phone] | | | | | [address] | | | | | | [phone] | | | +--------+ + + + [...]
--- OUTSIDE RECORDS SUMMARY | ~2019-10-27 | XMS | Encounter Summary ---
Demographics + + + | Address | [address] | | | [place] [address] | + + + | Home Phone [...] [place], | | | | | [place] [address] | | + + + + + | Kellen Briones | ECON | [place], [place] | | | | | [address] | | + + + + + Care Team Providers + +------+ + | Care Attendant Coin Operated Laundry Name | Role | Phone | + [...] [address] | | | | | [place], [place] | [place] [address] | | | | | [address] | [phone] | | | | | [phone] | | | +--------+ + + + [...] Performed At | + + + | [facility] | | | [facility] [address] | | | , | | | [id number]/RADIOLOGY Patient Name: CLEMENTINE WINCHESTER Date of : | | | 1940 Medical Record: [id number] Account: [id number] // | | | Exam Date/Time: 07/06/2009 [...] 09:44 P | | | P P [facility]/[id number]/ | | | cc: MD MARCIA WHITE MD SARAVANA | | | MD LUZ ELENA | | + + + + + | Procedure Note | + + | Nilay Lawrence - 01/25/2019 5:24 PM PDT | | [facility] | | [facility] [address] | | , | | | | [id number]/RADIOLOGY | | | | Patient Name: CLEMENTINE WINCHESTER | | Date of : 1940 | | Medical Record: [id number] | | Account: [id number] | | // | | | | [...] | P | | P | | [facility]/[id number]/ | | cc: YANNICK MCKINNEY MD | | MARCIA MOTLEY MD | | KERA LAGUNA MD | + + documented in this encounter Visit Diagnoses + + | Diagnosis | + + | Chest pain, unspecified | + + documented in this encounter"
--- OUTSIDE RECORDS SUMMARY | ~2019-10-27 | XMS | Encounter Summary ---
Demographics + + + | Address | [address] | | | [place] [address] | + + + | Home Phone [...] [place], | | | | | [place] [address] | | + + + + + | Kellen Briones | ECON | [place], [place] | | | | | [address] | | + + + + + Care Team Providers + +------+ + | Care Cultured Marble Products Maker Name | Role | Phone | [...] + | 04/30/ | Refill | [facility] | Irving Becerril, | Medication Refill | | 2015 | | NEUR[address]URGERY [address] | DO [address] | | | | | [address] | [address] [place], [place] | | | | | [place], [place] | [phone] | | | | | [address] | | | | | | [phone] | | | +--------+--------+ + + + [...]
--- OUTSIDE RECORDS SUMMARY | ~2019-10-27 | XMS | Encounter Summary ---
Demographics + + + | Address | [address] | | | [place] [address] | + + + | Home Phone [...] [place], | | | | | [place] [address] | | + + + + + | Kellen Briones | ECON | [place], [place] | | | | | [address] | | + + + + + Care Team Providers + +------+ + | Care Liquid Chlorine Operator Name | Role | Phone | + +------+ + | Anna De Guzman PA-C | PCP | | + +------+ + Encounter Details +--------+ + + + + | Date | Type | Department | Care Team | Description | +--------+ + + + + | 06/02/ | Hospital | [facility] | IsakkaydenkaileeTk mathis | | | 2012 | Encounter | MED CTR XRAY [address] | T, [address] | | | | | [place] | [place], [place] | | | | | [place] [address] | [id number] | | | | | [phone] | | | +--------+ + + + [...] Performed At | + + + | [facility] Diagnostic Imaging | [place] | | Department [address] [place] [facility] [facility] | [facility] | | [ rep [address]] [ rep [facility] | | [facility]] Signed | - IMAGING | | | | | Patient Name: CLEMENTINE WINCHESTER Physician: | | | : 1940 Age: 73 Sex: F Unit #: [id number] | | | Exam Date: 06/02/13 Location: [facility] | | | Report #: [id number] Page: | | | %(RAD)RES..mtdd.print.filter("pg") of %(RAD) | | | RES..mtdd.print.filter("tpg") | | | | | | Accession Number: [id number] | | | CERVICAL FACET INJECTIONS, 06/02/2013 [...] Transcribed | | | Date/Time: 06/03/2013 03:50 Welt Treater: | | | <<Signature on File>> | | | Tk Monreal | | | MD Marissa06/04/13 0730 <Electronically signed by Tk Monreal | | | Marissa ALVARADO> Tk Ann MD 06/02/13 1813 | | | Welt Treater: Zulema Tedizujsxzkrm17/01/14 0350 | | | | | + + + + + + + + | Performing | Address | City/State/Zipcode | Phone Number | | Organization | | | | + + + + + | [address] | [place] | [place] | [phone] | | [facility] | | [address] | | | - IMAGING | | | | + + + + + documented in this encounter Visit Diagnoses Not on filedocumented in this encounter
--- OUTSIDE RECORDS SUMMARY | ~2019-10-27 | XMS | Encounter Summary ---
Demographics + + + | Address | [address] | | | [place] [address] | + + + | Home Phone [...] [place], | | | | | [place] [address] | | + + + + + | Kellen Briones | ECON | [place], [place] | | | | | [address] | | + + + + + Care Team Providers + +------+ + | Care Functional Tester Name | Role | Phone | [...] | | [address] | [place] [address] | CLEARANCE) | | | | [place] | [phone] | | | | | [address] | | | | | | [phone] | | | +--------+ + + + [...]
--- OUTSIDE RECORDS SUMMARY | ~2019-10-27 | XMS | Encounter Summary ---
Demographics + + + | Address | [address] | | | [place] [address] | + + + | Home Phone [...] [place], | | | | | [place] [address] | | + + + + + | Kellen Briones | ECON | [place] | | | | | [address] | | + + + + + Care Team Providers + +------+ + | Care Manager Market Research Name | Role | Phone | [...] | | | | Lumbar | | [address] Phone: | | | | | degenerative | | [phone] | | | | | disc | | Fax: | | | | | disease | | [phone] | | | | | Procedures | | | | | | | LAMINEC/FACE | | | | | | | TECT/FORAMIN | | | | | | | ,LUMBAR 1 | | | | | | | SEG OK | | | | | | [...] + + | 07/22/ | Surgery | LOCATED WITHIN [facility] | Monster White MD | FUSION LUMBAR W/ | | 2019 | [facility] | [address] | LATERAL APPROACH | | | | OPERATING ROOM [address] | [address] [address] [place], [place] | (XLIF) L[address] | | | | [address] | [address] | | | | | [place], [place] | | | | | | [address] | | | | | | [phone] | | | +--------+---------+ + + + [...] Physician Discharge Summary Patient ID: Clementine Winchester [id number] y.o. 1940 Admit date: 07/22/2019 Discharge [...] wound clean and dry Follow-up with [facility] within 2 weeks. Activity restrictions, [...] AM PST Orthopedic Spine Progress Note Postop [facility] Provider: Macie Cordova PA-C Date : [...] anesthesia Arthritis Asthma Back pain Breast cancer ([facility]) 1987 Cancer ([facility]) Right breast Chronic diarrhea Chronic narcotic use COPD (chronic obstructive pulmonary disease) ([facility]) Coronary artery disease DDD (degenerative disc disease), cervical 05/13/2013 DDD (degenerative disc disease), lumbar 07/23/2012 Depression Diabetes mellitus ([facility]) Diabetes type 2, controlled ([facility]) Facet arthritis of cervical region 05/13/2013 Facet arthritis of lumbar region-Most severe at L4-L5,L5-S1 07/23/2012 Full dentures upper & lower GERD (gastroesophageal reflux disease) Heart attack ([facility]) Hyperlipidemia Hypertension Lumbar radiculopathy 07/23/2012 IA (myocardial infarction) ([facility]) Neck pain on right side 05/13/2013 Oxygen dependent 2 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 PTSD (post-traumatic stress disorder) Snoring Spinal stenosis of lumbar region with lgagikhbtzpvr-Y4-W1 level moderately severe 2012 Thyroid disease Social History Socioeconomic History Marital status: Spouse name: Not on file Number of children: Not on file Years of education: 14 Highest education level: Not on file Occupational History 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 Employer: [employer] Social Needs Financial resource [...] file Gets together: Not on file Attends worship service: Not on file Active member of [...] bilateral bone spur left foot BREAST RECONSTRUCTION [id number] About 10 surgeries CARPAL TUNNEL RELEASE Bilateral CERVICAL SPINE SURGERY Anterior 03/30/2016 Procedure: C3-4, C4-5, C5-6, C6-7 Anterior Cervical Discectomy w/ Fusion and Plating; Bryan geon: Irving Becerril DO; Location: [facility] MAIN OR CORONARY ARTERY BYPASS GRAFT 2009 HYSTERECTOMY, TOTAL ABDOMINAL 1969 LUMBAR SPINE SURGERY N/A 07/22/2019 Procedure: FUSION LUMBAR W/ LATERAL APPROACH (XLIF) L4/5; Surgeon: Monster White MD; Loca tion: [facility] MAIN OR LUMBAR SPINE SURGERY N/A 07/22/2019 Procedure: LAMINECTOMY POSTERIOR LUMBAR SPINAL FUSION L4/5; Surgeon: Monster White MD; L ocation: [facility] MAIN OR MASTECTOMY MASTECTOMY, RADICAL 1986 Right [...] H/O CVA/stroke 03/30/2016 Unknown Priority: Low H/O IA (myocardial infarction) 03/30/2016 Unknown Priority: Low H/O [...] Unknown Spinal stenosis of lumbar region with bkgtoylrpdkio-A6-V0 level moderately severe 07/23 Unknown Facet arthritis [...] and collapse Unknown Cancer Unknown Hyperlipidemia Unknown IA (myocardial infarction) Unknown GERD (gastroesophageal reflux disease) [...] 1. Type 1 diabetes mellitus without complication ([facility]) 2. Lumbar degenerative disc disease 3. Spondylolisthesis of lumbar region Past Medical History: Diagnosis Date Acid reflux disease Adverse effect of anesthesia trouble urinating after anesthesia Arthritis Asthma Back pain Breast cancer ([facility]) 1987 Cancer ([facility]) Right breast Chronic diarrhea Chronic narcotic use COPD (chronic obstructive pulmonary disease) ([facility]) Coronary artery disease DDD (degenerative disc disease), cervical 05/13/2013 DDD (degenerative disc disease), lumbar 07/23/2012 Depression Diabetes mellitus ([facility]) Diabetes type 2, controlled ([facility]) Facet arthritis of cervical region 05/13/2013 Facet arthritis of lumbar region-Most severe at L4-L5,L5-S1 07/23/2012 Full dentures upper & lower GERD (gastroesophageal reflux disease) Heart attack ([facility]) Hyperlipidemia Hypertension Lumbar radiculopathy 07/23/2012 IA (myocardial infarction) ([facility]) Neck pain on right side 05/13/2013 Oxygen dependent 2 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 PTSD (post-traumatic stress disorder) Snoring Spinal stenosis of lumbar region with yyapmnpshcghi-V6-Q8 level moderately severe 2012 Thyroid disease Current Facility-Administered Medications Medication Dose Route Frequency Provider Last Rate Last Dose [START ON 07/25/2019] aspirin chewable tablet 81 mg 81 mg Oral Daily Yifan Ang, SALES REPRESENTATIVE FACILITY SERVICES atorvaSTATin (LIPITOR) tablet 40 mg 40 mg Oral Nightly Yifan Ang, SALES REPRESENTATIVE FACILITY SERVICES 40 mg at 2023 balanced electrolytes in water (PLASMALYTE-148/NORMOSOL-R) infusion Intravenous Hayden nuous Monster White MD 100 mL/hr at 07/22/19 0651 ceFAZolin in dextrose (ANCEF, KEFZOL) IVPB 1 g 1 g Intravenous 3 times per day Yifan Ang, SALES REPRESENTATIVE FACILITY SERVICES 100 mL/hr at 07/23/19 0617 1 g at 07/23/19 0617 cyanocobalamin (VITAMIN B-12) tablet 100 mcg 100 mcg Oral Daily Yifan Ang, SALES REPRESENTATIVE FACILITY SERVICES 100 mcg at 07/23/19 0801 docusate sodium (COLACE) capsule 100 mg 100 mg Oral BID Yifan Ang, SALES REPRESENTATIVE FACILITY SERVICES 100 mg at 0 07/22/192023 DULoxetine (CYMBALTA) DR capsule 20 mg 20 mg Oral Daily Yifan Ang, SALES REPRESENTATIVE FACILITY SERVICES 20 mg at 0801 fentaNYL (DURAGESIC) 25 mcg/hr 1 patch 1 patch Transdermal Q72H Yifan Ang, SALES REPRESENTATIVE FACILITY SERVICES 1 p atch at 07/22/19 1407 furosemide (LASIX) tablet 20 mg 20 mg Oral Daily Yifan Ang, SALES REPRESENTATIVE FACILITY SERVICES 20 mg at 07/22/19 1440 gabapentin (NEURONTIN) capsule 100 mg 100 mg Oral BID Yifan Ang, SALES REPRESENTATIVE FACILITY SERVICES 100 mg at 0801 HYDROmorphone (DILAUDID) injection 0.2-0.4 mg 0.2-0.4 mg Intravenous Q1H PRN Yifan An g, SALES REPRESENTATIVE FACILITY SERVICES lactulose liquid 30 mL 30 mL Oral Daily PRN Yifan Ang, SALES REPRESENTATIVE FACILITY SERVICES levothyroxine (SYNTHROID) tablet 25 mcg 25 mcg Oral Daily Yifan Ang, SALES REPRESENTATIVE FACILITY SERVICES 25 mcg at 07/23/19 0800 lisinopril (PRINIVIL, ZESTRIL) tablet 5 mg 5 mg Oral Daily Yifan Ang, SALES REPRESENTATIVE FACILITY SERVICES 5 mg at 07/23/19 0801 metFORMIN (GLUCOPHAGE) tablet 500 mg 500 mg Oral Nightly Yifan Ang, SALES REPRESENTATIVE FACILITY SERVICES 500 mg at 07/22/192023 methocarbamol (ROBAXIN) tablet 500 mg 500 mg Oral Q6H PRN Yifan Ang, SALES REPRESENTATIVE FACILITY SERVICES 500 mg at 07/22/19 1825 ondansetron (ZOFRAN ODT) disintegrating tablet 4 mg 4 mg Oral Q6H PRN Yifan Ang, SALES REPRESENTATIVE FACILITY SERVICES oxyCODONE (ROXICODONE) tablet 2.5-10 mg 2.5-10 mg Oral Q3H PRN Yifan Ang, SALES REPRESENTATIVE FACILITY SERVICES 5 mg at 07/23/19 0309 pantoprazole (PROTONIX) DR tablet 40 mg 40 mg Oral QAM AC Yifan Ang, SALES REPRESENTATIVE FACILITY SERVICES 40 mg at 07/23/19 0618 polyethylene glycol (MIRALAX) powder 17 g 17 g Oral Daily Yifan Ang, SALES REPRESENTATIVE FACILITY SERVICES potassium chloride (KLOR-CON) ER tablet 10 mEq 10 mEq Oral Daily Yifan Ang, SALES REPRESENTATIVE FACILITY SERVICES 10 mEq at 07/23/19 0801 senna (SENOKOT) tablet 8.6 mg 8.6 mg Oral BID Yifan Ang, SALES REPRESENTATIVE FACILITY SERVICES 8.6 mg at 07/22/19 20 24 sodium chloride 0.45% (1/2 NS) infusion Intravenous Continuous Yifan Ang, SALES REPRESENTATIVE FACILITY SERVICES 100 m L/hr at 07/22/192027 sodium chloride 0.9% (NS) 1,000 mL bolus Intravenous Once Yifan Ang, SALES REPRESENTATIVE FACILITY SERVICES 1,000 mL/h r at 07/23/19 0758 Allergies [...] Alignment: There | | | are 5 nhm-vwr-zulmcte lumbar vertebral type bodies. There is 5 [...] FINDINGS: | | Alignment: There are 5 fob-lwb-icnswkd lumbar vertebral type bodies. | | There [...] 0.01Comment: Testing | 0.00 - 0.10 | [facility] | | | Absolute | performed at [facility], [address] | [address] | LABORATORY | | | | [address], | | | | | | [place] [address] | | | | + + + + + + + + | Specimen | + + | Blood | + + + + + + + | Performing | Address | City/State/Zipcode | Phone Number | | Organization | | | | + + + + + | [facility] | [address] | [place] [address] | [phone] | + + + + + Comprehensive [...] | >60Comment: GFR <60: | >60 | [facility] | | | GFR | [...] | | | | | performed at [facility], [address] | | | | | | [facility], | | | | | | [place] [address] | | | | + + + + + + + + | Specimen | + + | Blood | + + + + + + + | Performing | Address | City/State/Zipcode | Phone Number | | Organization | | | | + + + + + | [facility] | [address] | [place] [address] | [phone] | + + + + + Comprehensive [...] | >60Comment: GFR <60: | >60 | [facility] | | | GFR | [...] | | | | | performed at [facility], [address] | | | | | | [facility], | | | | | | [place] [address] | | | | + + + + + + + + | Specimen | + + | Blood | + + + + + + + | Performing | Address | City/State/Zipcode | Phone Number | | Organization | | | | + + + + + | [facility] | [address] | [place] [address] | [phone] | + + + + + CBC [...] | | | Absolute | performed at [facility], [address] | [address] | LABORATORY | | | | [address], | | | | | | [place] [address] | | | | + + + + + + + + | Specimen | + + | Blood | + + + + + + + | Performing | Address | City/State/Zipcode | Phone Number | | Organization | | | | + + + + + | [facility] | [address] | [place] [address] | [phone] | + + + + + Uric Acid (07/28/2019 8:30 AM PST) + + + + + + | Component | Value | Ref Range | Performed | Pathologist | | | | | At | Signature | + + + + + + | Uric Acid | 7.6 (H)Comment: Testing | 2.2 - 7.1 mg/dL | [facility] | | | | performed at [facility], [address] | | LABORATORY | | | | [address], | | | | | | [place] [address] | | | | + + + + + + + + | Specimen | + + | Blood | + + + + + + + | Performing | Address | City/State/Zipcode | Phone Number | | Organization | | | | + + + + + | [facility] | [address] | [place] [address] | [phone] | + + + + + CBC [...] | | LABORATORY | | | | [facility], [address] [facility] | | | | | | [place] | | | | | | [address] | | | | + + + + + + + + | Specimen | + + | Blood | + + + + + + + | Performing | Address | City/State/Zipcode | Phone Number | | Organization | | | | + + + + + | [facility] | [address] | [place] [address] | [phone] | + + + + + Basic [...] 54 (L)Comment: GFR <60: | >60 | [facility] | | | GFR | [...] | | | | | | MDRD IDWI traceable | | | | | | equation.Testing | | | | | | performed at [facility], [address] | | | | | | [facility], | | | | | | [place] [address] | | | | + + + + + + + + | Specimen | + + | Blood | + + + + + + + | Performing | Address | City/State/Zipcode | Phone Number | | Organization | | | | + + + + + | [facility] | [address] | [place] [address] | [phone] | + + + + + POC Glucose (07/22/2019 10:30 AM PST) + + + + + + | Component | Value | Ref Range | Performed | Pathologist | | | | | At | Signature | + + + + + + | Glucose, | 134 (H)Comment: Testing | 65 - 99 mg/dL | [facility] | | | POC | performed at [facility];[address] | | LABORATORY | | | | [address];[place] | | | | | | [address] | | | | + + + + + + + + | Specimen | + + | | + + + + + + + | Performing | Address | City/State/Zipcode | Phone Number | | Organization | | | | + + + + + | [facility] | [address] | [place] [address] | [phone] | + + + + + [facility] [...] | | | POC | performed at [facility];[address] | | LABORATORY | | | | [address];[place], [place] | | | | | | [address] | | | | + + + + + + + + | Specimen | + + | | + + + + + + + | Performing | Address | City/State/Zipcode | Phone Number | | Organization | | | | + + + + + | [facility] | [address] | [place] [address] | [phone] | + + + + + POC Glucose (07/22/2019 6:31 AM PST) + + + + + + | Component | Value | Ref Range | Performed | Pathologist | | | | | At | Signature | + + + + + + | Glucose, | 99Comment: Testing | 65 - 99 mg/dL | [facility] | | | POC | performed at [facility];[address] | | LABORATORY | | | | [address];[place] | | | | | | [address] | | | | + + + + + + + + | Specimen | + + | | + + + + + + + | Performing | Address | City/State/Zipcode | Phone Number | | Organization | | | | + + + + + | [facility] | [address] | [place] [address] | [phone] | + + + + + Dulce [...] | | | | | performed at [facility] | | | | | | [facility];[place], [place] | | | | | | [address] | | | | + + + + + + + + | Specimen | + + | Blood | + + + + + + + | Performing | Address | City/State/Zipcode | Phone Number | | Organization | | | | + + + + + | [facility] | [address] | [place] [address] | [phone] | + + + + + Basic [...] 49 (L)Comment: GFR <60: | >60 | [facility] | | | GFR | [...] | | | | | performed at [facility];[address] | | | | | | [facility];[place], [place] | | | | | | [address] | | | | + + + + + + + + | Specimen | + + | Blood | + + + + + + + | Performing | Address | City/State/Zipcode | Phone Number | | Organization | | | | + + + + + | [facility] | [address] | [place] [address] | [phone] | + + + + + Type [...] + + + | BB [facility] | [id number] | | [facility] | | | | | | LABORATORY | | + + + + + + | [facility] | Testing performed at | | [facility] | | | | [facility];[address] | LABORATORY | | | [address];[place] [address] | | | | + + + + + + + + | Specimen | + + | Blood | + + + + + + + | Performing | Address | City/State/Zipcode | Phone Number | | Organization | | | | + + + + + | [facility] | [address] | [place] [address] | [phone] | + + + + + documented [...] | | | DAILY, First dose on [facility] 07/23/19 | | AM PST | | [...] | | | | First dose on [facility] 07/23/19 at 0900 | | AM PST [...]
--- OUTSIDE RECORDS SUMMARY | ~2019-10-27 | XMS | Encounter Summary ---
Demographics + + + | Address | [address] | | | [place] [address] | + + + | Home Phone [...] [place], | | | | | [place] [address] | | + + + + + | Kellen Briones | ECON | [place], [place] | | | | | [address] | | + + + + + Care Team Providers + +------+ + | Care Marine Equipment Research Engineer Name | Role | Phone [...] Thoracic or | [place], | [address] | | | | | lumbosacral | Tk Monreal MD | [place], | | | | | neuritis or | [address] | [place] | | | | | | [place] | [address] | | | | | radiculitis, | [place], [place] | Phone: | | | | | unspecified | [address] | [phone] | | | | | Procedures | Phone: | Fax: | | | | | [place] INJECT | [phone] | [phone] | | | | | ANES/STEROID | Fax: | | | | | | FORAMEN | [phone] | | | | | | LUMBAR/SACRA [...] + + | 10/06/ | Hospital | [facility] | Tk Ann | Lumbar radiculopathy | | 2013 | Encounter | MED CTR XRAY [address] | [address], [address] | | | | | [address] [place] | [facility] [place] | | | | | [place] [address] | [address] | | | | | [phone] | | | | | | | Cloth Pattern Maker [facility] | | | | | | [...] 10/06/13 Bilateral Transfor[facility]inal Epidural Steroid Injections | [facility] | | Diagnosis: Lumbar radiculopathy ICD-9 Code 724.4 Ms. Clementine Cortez | [facility] | | Annabella presents to the fluoroscopy suite for fluoroscopically-guided | [facility] | | bilateral L5-S1 transforaminal epidural steroid [...] + + + + | [facility] | [address] | [place] | [phone] | | [facility] | | [address] | | | - IMAGING | | [...]
--- OUTSIDE RECORDS SUMMARY | ~2019-10-27 | XMS | Encounter Summary ---
Demographics + + + | Address | [address] | | | [place] [address] | + + + | Home Phone [...] [place], | | | | | [place] [address] | | + + + + + | Kellen Briones | ECON | [place], [place] | | | | | [address] | | + + + + + Care Team Providers + +------+ + | Care Satellite Project Site Monitor Name | Role | Phone | [...] | | | | | | | [place] | | | | | | | [...] | | | | | [address] | [place] | | | | | [place] | [address] | | | | | [address] | | | | | | [phone] | | | +--------+ + + + [...] +----+---+ + + | | 1 | [place] | | | | 4 | 43-degrees [...] [address] | | eral | Antecubital; [id number] | Magdalena Burdick, RN | Tatiana Crowe, [...]
--- OUTSIDE RECORDS SUMMARY | ~2019-10-27 | XMS | Encounter Summary ---
Demographics + + + | Address | [address] | | | [place] [address] | + + + | Home Phone [...] [place], | | | | | [place] [address] | | + + + + + | Kellen Briones | ECON | [place], [place] | | | | | [address] | | + + + + + Care Team Providers + +------+ + | Care Steel Fixer Name | Role | Phone | + [...] | | ORTHOPEDIC SPINE | [address] [place], [place] | | | | | [address] | [address] | | | | | [place] | | | | | | [address] | | | | | | [phone] | | | +--------+ + + + [...]
--- OUTSIDE RECORDS SUMMARY | ~2019-10-27 | XMS | Encounter Summary ---
Demographics + + + | Address | [address] | | | [place] [address] | + + + | Home Phone [...] [place], | | | | | [place] [address] | | + + + + + | Kellen Briones | ECON | [place], [place] | | | | | [address] | | + + + + + Care Team Providers + +------+ + | Care Systems Coordinator Name | Role | Phone | [...] | 06/18/ | Refill | [facility] | Irving Becerril, | Medication Refill | | 2016 | | NEUROSURGERY [address] | DO [address] | | | | | [address] [facility] [[email or web address]] [address] | [address] [place], [place] | | | | | [place], [place] | [id number] | | | | | [address] | | | | | | [phone] | | | +--------+--------+ + + + [...]
--- OUTSIDE RECORDS SUMMARY | ~2019-10-27 | XMS | Encounter Summary ---
Demographics + + + | Address | [address] | | | [place] [address] | + + + | Home Phone [...] [place], | | | | | [place] [address] | | + + + + + | Kellen Briones | ECON | [place] | | | | | [address] | | + + + + + Care Team Providers + +------+ + | Care Haulpak Driver Name | Role | Phone | [...] | | | | Lumbar | | [address] Phone: | | | | | degenerative | | [phone] | | | | | disc | | Fax: | | | | | disease | | [phone] | | | | | Procedures | | | | | | | LAMINEC/FACE | | | | | | | TECT/FORAMIN | | | | | | | ,LUMBAR 1 | | | | | | | SEG MS | | | | | | | [...] + + | 07/22/ | Surgery | [facility] | Monster White MD | FUSION LUMBAR W/ | | 2019 | [facility] | [address] | LATERAL APPROACH | | | | OPERATING ROOM [address] | [address] [place], [place] | (XLIF) L[address] | | | | [address] | [address] | | | | | [place], [place] | | | | | | [address] | | | | | | [phone] | | | +--------+---------+ + + + [...] Physician Discharge Summary Patient ID: Clementine Winchester [id number] y.o. 1940 Admit date: 07/22/2019 Discharge [...] clean and dry Follow-up with [facility] within 2 weeks. Activity restrictions, dressing [...] AM PST Orthopedic Spine Progress Note Postop [facility] Neurosurgery Provider: Macie Cordova PA-C Date [...] Asthma Back pain Breast cancer ([facility]) 1987 Cancer ([facility]) Right breast Chronic diarrhea Chronic narcotic use COPD (chronic obstructive pulmonary disease) ([facility]) Coronary artery disease DDD (degenerative disc disease), cervical 05/13/2013 DDD (degenerative disc disease), lumbar 07/23/2012 Depression Diabetes mellitus ([facility]) Diabetes type 2, controlled ([facility]) Facet arthritis of cervical region 05/13/2013 Facet arthritis of lumbar region-Most severe at L4-L5,L5-S1 07/23/2012 Full dentures upper & lower GERD (gastroesophageal reflux disease) Heart attack ([facility]) Hyperlipidemia Hypertension Lumbar radiculopathy 07/23/2012 SC (myocardial infarction) ([facility]) Neck pain on right side 05/13/2013 Oxygen dependent 2 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 PTSD (post-traumatic stress disorder) Snoring Spinal stenosis of lumbar region with fawmgjwbirjee-U2-W8 level moderately severe 2012 Thyroid disease Social History Socioeconomic History Marital status: Spouse name: Not on file Number of children: Not on file Years of education: 14 Highest education level: Not on file Occupational History 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 Employer: [employer] Social Needs [...] file Gets together: Not on file Attends confucianism service: Not on file Active member of [...] bilateral bone spur left foot BREAST RECONSTRUCTION 7223-5877 About 10 surgeries CARPAL TUNNEL RELEASE Bilateral CERVICAL SPINE SURGERY Anterior 03/30/2016 Procedure: C3-4, C4-5, C5-6, C6-7 Anterior Cervical Discectomy w/ Fusion and Plating; Bryan geon: Irving Becerril DO; Location: [facility] MAIN OR CORONARY ARTERY BYPASS GRAFT 2009 HYSTERECTOMY, TOTAL ABDOMINAL 1969 LUMBAR SPINE SURGERY N/A 07/22/2019 Procedure: FUSION LUMBAR W/ LATERAL APPROACH (XLIF) L4/5; Surgeon: Monster White MD; Loca tion: [facility] MAIN OR LUMBAR SPINE SURGERY N/A 07/22/2019 Procedure: LAMINECTOMY POSTERIOR LUMBAR SPINAL FUSION L4/5; Surgeon: Monster White MD; L ocation: [facility] MAIN OR MASTECTOMY MASTECTOMY, RADICAL 1986 Right [...] H/O CVA/stroke 03/30/2016 Unknown Priority: Low H/O SC (myocardial infarction) 03/30/2016 Unknown Priority: Low H/O [...] Unknown Spinal stenosis of lumbar region with rtsbnmzvkjiub-D8-O2 level moderately severe 07/23 Unknown Facet arthritis [...] and collapse Unknown Cancer Unknown Hyperlipidemia Unknown SC (myocardial infarction) Unknown GERD (gastroesophageal reflux disease) [...] 1 diabetes mellitus without complication ([facility]) 2. Lumbar degenerative disc disease 3. Spondylolisthesis of lumbar region Past Medical History: Diagnosis Date Acid reflux disease Adverse effect of anesthesia trouble urinating after anesthesia Arthritis Asthma Back pain Breast cancer ([facility]) 1987 Cancer ([facility]) Right breast Chronic diarrhea Chronic narcotic use COPD (chronic obstructive pulmonary disease) ([facility]) Coronary artery disease DDD (degenerative disc disease), cervical 05/13/2013 DDD (degenerative disc disease), lumbar 07/23/2012 Depression Diabetes mellitus ([facility]) Diabetes type 2, controlled ([facility]) Facet arthritis of cervical region 05/13/2013 Facet arthritis of lumbar region-Most severe at L4-L5,L5-S1 07/23/2012 Full dentures upper & lower GERD (gastroesophageal reflux disease) Heart attack ([facility]) Hyperlipidemia Hypertension Lumbar radiculopathy 07/23/2012 SC (myocardial infarction) ([facility]) Neck pain on right side 05/13/2013 Oxygen dependent 2 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 PTSD (post-traumatic stress disorder) Snoring Spinal stenosis of lumbar region with kntrvlllqysre-A1-X6 level moderately severe 2012 Thyroid disease Current Facility-Administered Medications Medication Dose Route Frequency Provider Last Rate Last Dose [START ON 07/25/2019] aspirin chewable tablet 81 mg 81 mg Oral Daily Yifan Ang, AWNING FRAME MAKER atorvaSTATin (LIPITOR) tablet 40 mg 40 mg Oral Nightly Yifna Ang, AWNING FRAME MAKER 40 mg at 2023 balanced electrolytes in water (PLASMALYTE-148/NORMOSOL-R) infusion Intravenous Hayden nuous Monster White MD 100 mL/hr at 07/22/19 0651 ceFAZolin in dextrose (ANCEF, KEFZOL) IVPB 1 g 1 g Intravenous 3 times per day Yifan Ang, AWNING FRAME MAKER 100 mL/hr at 07/23/19 0617 1 g at 07/23/19 0617 cyanocobalamin (VITAMIN B-12) tablet 100 mcg 100 mcg Oral Daily Yifan Ang, AWNING FRAME MAKER 100 mcg at 07/23/19 0801 docusate sodium (COLACE) capsule 100 mg 100 mg Oral BID Yifan Ang, AWNING FRAME MAKER 100 mg at 0 07/22/192023 DULoxetine (CYMBALTA) DR capsule 20 mg 20 mg Oral Daily Yifan Ang, AWNING FRAME MAKER 20 mg at 0801 fentaNYL (DURAGESIC) 25 mcg/hr 1 patch 1 patch Transdermal Q72H Yifan Ang, AWNING FRAME MAKER 1 p atch at 07/22/19 1407 furosemide (LASIX) tablet 20 mg 20 mg Oral Daily Yifan Ang, AWNING FRAME MAKER 20 mg at 07/22/19 1440 gabapentin (NEURONTIN) capsule 100 mg 100 mg Oral BID Yifan Ang, AWNING FRAME MAKER 100 mg at 0801 HYDROmorphone (DILAUDID) injection 0.2-0.4 mg 0.2-0.4 mg Intravenous Q1H PRN Yifan An g, AWNING FRAME MAKER lactulose liquid 30 mL 30 mL Oral Daily PRN Yifan Ang, AWNING FRAME MAKER levothyroxine (SYNTHROID) tablet 25 mcg 25 mcg Oral Daily Yifan Ang, AWNING FRAME MAKER 25 mcg at 07/23/19 0800 lisinopril (PRINIVIL, ZESTRIL) tablet 5 mg 5 mg Oral Daily Yifan Ang, AWNING FRAME MAKER 5 mg at 07/23/19 0801 metFORMIN (GLUCOPHAGE) tablet 500 mg 500 mg Oral Nightly Yifan Ang, AWNING FRAME MAKER 500 mg at 07/22/192023 methocarbamol (ROBAXIN) tablet 500 mg 500 mg Oral Q6H PRN Yifan Ang, AWNING FRAME MAKER 500 mg at 07/22/19 1825 ondansetron (ZOFRAN ODT) disintegrating tablet 4 mg 4 mg Oral Q6H PRN Yifan Ang, AWNING FRAME MAKER oxyCODONE (ROXICODONE) tablet 2.5-10 mg 2.5-10 mg Oral Q3H PRN Yifan Ang, AWNING FRAME MAKER 5 mg at 07/23/19 0309 pantoprazole (PROTONIX) DR tablet 40 mg 40 mg Oral QAM AC Yifan Ang, AWNING FRAME MAKER 40 mg at 07/23/19 0618 polyethylene glycol (MIRALAX) powder 17 g 17 g Oral Daily Yifan Ang, AWNING FRAME MAKER potassium chloride (KLOR-CON) ER tablet 10 mEq 10 mEq Oral Daily Yifan Ang, AWNING FRAME MAKER 10 mEq at 07/23/19 0801 senna (SENOKOT) tablet 8.6 mg 8.6 mg Oral BID Yifan Ang, AWNING FRAME MAKER 8.6 mg at 07/22/19 20 24 sodium chloride 0.45% (1/2 NS) infusion Intravenous Continuous Yifan Ang, AWNING FRAME MAKER 100 m L/hr at 07/22/192027 sodium chloride 0.9% (NS) 1,000 mL bolus Intravenous Once Yifan Ang, AWNING FRAME MAKER 1,000 mL/h r at 07/23/19 0758 Allergies [...] Alignment: There | | | are 5 iti-osc-yocmntc lumbar vertebral type bodies. There is 5 [...] FINDINGS: | | Alignment: There are 5 gks-stg-twywucc lumbar vertebral type bodies. | | There [...] 0.01Comment: Testing | 0.00 - 0.10 | [facility] | | | Absolute | performed at [facility], [address] | [address] | LABORATORY | | | | [place], | | | | | | [place] [address] | | | | + + + + + + + + | Specimen | + + | Blood | + + + + + + + | Performing | Address | City/State/Zipcode | Phone Number | | Organization | | | | + + + + + | [facility] | [address] | [place] [address] | [phone] | + + + + + Comprehensive [...] | >60Comment: GFR <60: | >60 | [facility] | | | GFR [...] | | | | | performed at [facility], [address] | | | | | | [facility], | | | | | | [place] [address] | | | | + + + + + + + + | Specimen | + + | Blood | + + + + + + + | Performing | Address | City/State/Zipcode | Phone Number | | Organization | | | | + + + + + | [facility] | [address] | [place] [address] | [phone] | + + + + + Comprehensive [...] | >60Comment: GFR <60: | >60 | [facility] | | | GFR [...] | | | | | performed at [facility], [address] | | | | | | [facility], | | | | | | [place] [address] | | | | + + + + + + + + | Specimen | + + | Blood | + + + + + + + | Performing | Address | City/State/Zipcode | Phone Number | | Organization | | | | + + + + + | [facility] | [address] | [place] [address] | [phone] | + + + + + CBC [...] | | | Absolute | performed at [facility], [address] | K[address] | LABORATORY | | | | [address], | | | | | | [place] [address] | | | | + + + + + + + + | Specimen | + + | Blood | + + + + + + + | Performing | Address | City/State/Zipcode | Phone Number | | Organization | | | | + + + + + | [facility] | [address] | [place] [address] | [phone] | + + + + + Uric Acid (07/28/2019 8:30 AM PST) + + + + + + | Component | Value | Ref Range | Performed | Pathologist | | | | | At | Signature | + + + + + + | Uric Acid | 7.6 (H)Comment: Testing | 2.2 - 7.1 mg/dL | [facility] | | | | performed at [facility], [address] | | LABORATORY | | | | [address], | | | | | | [place] [address] | | | | + + + + + + + + | Specimen | + + | Blood | + + + + + + + | Performing | Address | City/State/Zipcode | Phone Number | | Organization | | | | + + + + + | [facility] | [address] | [place] [address] | [phone] | + + + + + CBC [...] | | LABORATORY | | | | [facility], [address] [facility] | | | | | | [place] | | | | | | [address] | | | | + + + + + + + + | Specimen | + + | Blood | + + + + + + + | Performing | Address | City/State/Zipcode | Phone Number | | Organization | | | | + + + + + | [facility] | [address] | [place] [address] | [phone] | + + + + + Basic [...] 54 (L)Comment: GFR <60: | >60 | [facility] | | | GFR [...] | | | | | | MDRD IDOH traceable | | | | | | equation.Testing | | | | | | performed at [facility], [address] | | | | | | [facility], | | | | | | [place] [address] | | | | + + + + + + + + | Specimen | + + | Blood | + + + + + + + | Performing | Address | City/State/Zipcode | Phone Number | | Organization | | | | + + + + + | [facility] | [address] | [place] [address] | [phone] | + + + + + POC Glucose (07/22/2019 10:30 AM PST) + + + + + + | Component | Value | Ref Range | Performed | Pathologist | | | | | At | Signature | + + + + + + | Glucose, | 134 (H)Comment: Testing | 65 - 99 mg/dL | [facility] | | | POC | performed at [facility];[address] | | LABORATORY | | | | [address];[place] | | | | | | [address] | | | | + + + + + + + + | Specimen | + + | | + + + + + + + | Performing | Address | City/State/Zipcode | Phone Number | | Organization | | | | + + + + + | [facility] | [address] | [place] [address] | [phone] | + + + + + KALPES[facility] [...] | | | POC | performed at [facility];[address] | | LABORATORY | | | | [address], [place] | | | | | | [address] | | | | + + + + + + + + | Specimen | + + | | + + + + + + + | Performing | Address | City/State/Zipcode | Phone Number | | Organization | | | | + + + + + | [facility] | [address] | [place] [address] | [phone] | + + + + + POC Glucose (07/22/2019 6:31 AM PST) + + + + + + | Component | Value | Ref Range | Performed | Pathologist | | | | | At | Signature | + + + + + + | Glucose, | 99Comment: Testing | 65 - 99 mg/dL | [facility] | | | POC | performed at [facility];[address] | | LABORATORY | | | | [address];[place] | | | | | | [address] | | | | + + + + + + + + | Specimen | + + | | + + + + + + + | Performing | Address | City/State/Zipcode | Phone Number | | Organization | | | | + + + + + | [facility] | [address] | [place] [address] | [phone] | + + + + + Dulce [...] at [facility] | | | | | | [facility];[place], [place] | | | | | | [address] | | | | + + + + + + + + | Specimen | + + | Blood | + + + + + + + | Performing | Address | City/State/Zipcode | Phone Number | | Organization | | | | + + + + + | [facility] | [address] | [place] [address] | [phone] | + + + + + Basic [...] 49 (L)Comment: GFR <60: | >60 | [facility] | | | GFR [...] CITY;[address] | | | | | | [facility];[place], [place] | | | | | | [address] | | | | + + + + + + + + | Specimen | + + | Blood | + + + + + + + | Performing | Address | City/State/Zipcode | Phone Number | | Organization | | | | + + + + + | [facility] | [address] | [place] [address] | [phone] | + + + + + Type [...] + + + | [facility] | [id number] | | [facility] | | | | | | LABORATORY | | + + + + + + | [facility] | Testing performed at | | [place] | | | | [facility];[address] | LABORATORY | | | [address];[place] [address] | | | | + + + + + + + + | Specimen | + + | Blood | + + + + + + + | Performing | Address | City/State/Zipcode | Phone Number | | Organization | | | | + + + + + | [facility] | [address] | [place] [address] | [phone] | + + + + + documented [...] | | | DAILY, First dose on [facility] 07/23/19 | | AM PST | [...] | | | | First dose on [facility] 07/23/19 at 0900 | | AM [...]
--- OUTSIDE RECORDS SUMMARY | ~2019-10-27 | XMS | Encounter Summary ---
Demographics + + + | Address | [address] | | | [place] [address] | + + + | Home Phone [...] [place], | | | | | [place] [address] | | + + + + + | Kellen Briones | ECON | [place], [place] | | | | | [address] | | + + + + + Care Team Providers + +------+ + | Care Central Office Operator Supervisor Name | Role | Phone | + +------+ + | Anna De Guzman PA-C | PCP | | + +------+ + Encounter Details +--------+ + + + + | Date | Type | Department | Care Team | Description | +--------+ + + + + | 09/30/ | Hospital | [facility] | Brunodathacz, | DDD (degenerative | | 2015 | Encounter | MED CTR XRAY [address] | [place] [address] | disc disease), | | | | [place] | [facility], [address] | lumbar; Spinal | | | | [place] [address] | [place] [address] | stenosis of lumbar | | | | [phone] | [phone] | region with | | | | | | fwulogzovvbnh-J7-B4 | | | | | Sole Molding Machine OperatorCandace | level moderately | | | | [...] with | | | | | | sivnjsfbiajuu-O2-V2 | | | | | | level [...] fluoroscopy suite for fluoroscopically-guided [facility] | | bilateral L5-S1 transforaminal epidural [...] [address] | [place] | [phone] | | [facility] | | [address] | | | - IMAGING | | | | + + + + + documented in this encounter Visit Diagnoses + + | Diagnosis | + + | DDD (degenerative disc disease), lumbar Degeneration of lumbar or lumbosacral | | intervertebral disc | + + | Spinal stenosis of lumbar region with oaqrpyxytkwjd-F9-M9 level moderately severe | | Spinal stenosis, [...] | | | | First dose on [facility] 09/30/14 at | | | | | [...] PM PDT | | | | | [facility] 09/30/14 at 1448, For 1 dose, | [...]
--- OUTSIDE RECORDS SUMMARY | ~2019-10-27 | XMS | Encounter Summary ---
Demographics + + + | Address | [address] | | | [place] [address] | + + + | Home Phone [...] [place], | | | | | [place] [address] | | + + + + + | Kellen Briones | ECON | [place], [place] | | | | | [address] | | + + + + + Care Team Providers + +------+ + | Care Fruit Canner Name | Role | Phone | + [...] | | | | | claudication | [place], [place] | [address] | | | | | Procedures | [address] | Phone: | | | | | MRI Lumbar | Phone: | [phone] | | | | | Spine wo | [phone] | Fax: | | | | | Contrast | Fax: | [phone] | | | | | | [phone] | | +--------+--------+ + + + + [...] | | | | | claudication | [place], [place] | [address] | | | | | Procedures | [address] | Phone: | | | | | CT Lumbar | Phone: | [phone] | | | | | Spine wo | [phone] | Fax: | | | | | Contrast | Fax: | [phone] | | | | | | [phone] | | +--------+--------+ + + + + [...] | | | without | [place], | [place], [place] | | | |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 | [place] [address] | [address] | | | | | claudication | Phone: | Phone: | | | | | lumbar | [phone] | [phone] | | | | | | Fax: | Fax: | | | | | | [phone] | [phone] | + +--------+ + + + + Encounter Details +--------+---------+ + + + | Date | Type | Department | Care Team | Description | +--------+---------+ + + + | 03/19/ | Office | [facility] | Monster White MD | Lumbar stenosis with | | 2019 | Visit | [facility] | [address]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 | | | | ORTHOPEDIC SPINE | [address] [place] | claudication | | | | [address] [place] | [phone] | (Primary Dx); | | | | [place] | | Spondylolisthesis of | | | | [address] | | lumbar region | | | | [phone] | | | +--------+---------+ + + + [...] findings 01/2018 Social History Occupational History 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 Employer: [employer] Tobacco Use Smoking status: [...] Snoring Spinal stenosis of lumbar region with kuqkzmakkwxvk-V7-H8 level moderately severe 2012 Past Surgical History: Procedure Laterality Date BELPHAROPTOSIS REPAIR 2008 bilateral bone spur left foot BREAST RECONSTRUCTION 1456-6277 About 10 surgeries CARPAL TUNNEL RELEASE Bilateral CERVICAL SPINE SURGERY Anterior 03/30/2016 Procedure: C3-4, C4-5, C5-6, C6-7 Anterior Cervical Discectomy w/ Fusion and Plating; Bryan geon: Irving Becerril, DO; Location: [facility] MAIN OR CORONARY ARTERY BYPASS [...] flexors 5 5 Hand intrinsics 5 5 [employer]ic[employer] 5 5 Hip flexors 5 5 Quadriceps [...] Note: We spent approximately 50 minutes in glct-zy-wtnv time of which greater than 50% was [...] effects the | | right side at L1-H0ijoks it is severe and bilaterally at L5-S1 [...]
--- OUTSIDE RECORDS SUMMARY | ~2019-10-27 | XMS | Encounter Summary ---
Demographics + + + | Address | [address] | | | [place] [address] | + + + | Home Phone [...] [place], | | | | | [place] [address] | | + + + + + | Kellen Briones | ECON | [place], [place] | | | | | [address] | | + + + + + Care Team Providers + +------+ + | Care Fuel Cell Repairer Name | Role | Phone | [...] | | | | CLINIC [address] | [address] [place], [place] | Cerebrovascular | | | | [place], [place] | [address] | accident (CVA), | | | | [address] | | unspecified | | | | [...] involving | | | | | | emmonak coronary | | | | | | artery of emmonak | | | | | | heart without angina | | | | | | pectoris; 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 | | | | | | without complication | | | | | | ([facility]); Essential | | | | | | hypertension; | | | | | | Syncope and | | | | | | collapse; Cancer | | | | | | ([facility]); 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| | hyperlipidemia; ST | | | | | | elevation myocardial | | | | | | infarction (STEMI), | | | | | | unspecified artery | | | | | | ([facility]); | | | | | | Gastroesophageal [...] with | | | | | | tdlbtiinjscmz-K9-C7 | | | | | | level [...] region | | | | | | ([facility]); DDD | | | | | | [...] involving | | | | | | emmonak coronary | | | | | | artery of emmonak | | | | | | heart without angina | | | | | | pectoris 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 | | | | | | without complication | | | | | | ([facility]) Essential | | | | | | hypertension | | | | | | Syncope and collapse | | | | | | Cancer ([facility]) | | | | | | Other [...] with | | | | | | pojboffrumtue-A9-S0 | | | | | | level [...] region | | | | | | ([facility]) DDD | | | | | | [...] involving | | | | | | emmonak coronary | | | | | | artery of emmonak | | | | | | heart [...] with | | | | | | ehqdlputisndk-J1-N7 | | | | | | level [...] involving | | | | | | emmonak coronary | | | | | | artery of emmonak | | | | | | heart [...] with | | | | | | yhqkgvpptodio-N1-U5 | | | | | | level [...] involving | | | | | | emmonak coronary | | | | | | artery of emmonak | | | | | | heart [...] with | | | | | | nzhhwgmwhqcmd-F0-E5 | | | | | | level [...] involving | | | | | | emmonak coronary | | | | | | artery of emmonak | | | | | | heart [...] with | | | | | | znvujuyqwkity-B5-T9 | | | | | | level [...] region | | | | | | ([facility]) DDD | | | | | | [...] [facility] | | | [place] | RATE,ESTIMATED | | MEDICAL | | | | mL/min/1.77k7Mqnf than | | CENTER - | | [...] + | [facility] | [address] | [place], [place] | [phone] | | [facility] | | [address] | | | - LABORATORY | | [...] + | [facility] | [address] | [place] | [phone] | | [facility] | | [address] | | | - LABORATORY | | [...] [address] | [place] | [phone] | | [facility] | | [address] | | | - LABORATORY | | [...] [address] | [place] | [phone] | | [facility] | | [address] | | | - LABORATORY | | [...] [address] | [place] | [phone] | | 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
--- OUTSIDE RECORDS SUMMARY | ~2019-10-27 | XMS | Encounter Summary ---
Demographics + + + | Address | [address] | | | [place] [address] | + + + | Home Phone [...] [place], | | | | | [place] [address] | | + + + + + | Kellen Briones | ECON | [place], [place] | | | | | [address] | | + + + + + Care Team Providers + +------+ + | Care Multimedia Technician Name | Role | Phone | [...] + + | 03/28/ | Telephone | [facility] | Irving Becerril, | Surgery Appointment | | 2015 | | NEUROSURGERY [address] | DO [address] | (reminder ) | | | | [address] | [address] [place], [place] | | | | | [place], [place] | [address] | | | | | [address] | | | | | | [phone] | | | +--------+ + + + [...]
--- OUTSIDE RECORDS SUMMARY | ~2019-10-27 | XMS | Encounter Summary ---
Demographics + + + | Address | [address] | | | [place] [address] | + + + | Home Phone [...] [place], | | | | | [place] [address] | | + + + + + | Kellen Briones | ECON | [place], [place] | | | | | [address] | | + + + + + Care Team Providers + +------+ + | Care Industrial Specialist Name | Role | Phone | [...] [address] | [id number] | | | | [place], [place] | [place] [address] | level moderately | | | | [address] | [phone] | severe (Primary Dx); | | | | [phone] | | Facet arthritis of | | [...] of the procedure you must provide a warehouse driver to take you home. For all procedur es it is recommended that someone else drive you home. documented in this encounter Progress Notes Claudia aDs PA-C - 12/14/2013 11:21 AM PDTFormatting of [...] and narcotic medications use; she currently uses [place], Flexeril and [place] bapentin. Patient's medications, allergies, [...] has no apparent deficits with short or usp memory. She has appropriate fund of knowledge [...] 1. Spinal stenosis of lumbar region with dmhflpkmhbtnc-G3-C2 level moderately severe 2. Facet arthritis of [...] is awaiting to t cleared by her explosive ordnance disposal manager for cervical fusion. ELECTRONICALLY SIGNED BY: Claudia [...] to the fluoroscopy suite for fluoroscopically-guided | [facility] | | bilateral L5-S1 transforaminal epidural [...] Procedure Note | + + | Tk nAn MD - 02/02/2014 6:07 PM PDT 02/02/2014ilateral [...] [address] 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
--- OUTSIDE RECORDS SUMMARY | ~2019-10-27 | XMS | Encounter Summary ---
Demographics + + + | Address | [address] | | | [place] [address] | + + + | Home Phone [...] [place], | | | | | [place] [address] | | + + + + + | Kellen Briones | ECON | [place], [place] | | | | | [address] | | + + + + + Care Team Providers + +------+ + | Care Motor Grader Rough Grade Name | Role | Phone | + [...] | | | [address] [place] | [place] [address] | cervical region | | | | [address] | [phone] | (HCC); DDD | | | | [phone] | | (degenerative disc | | | [...]
--- OUTSIDE RECORDS SUMMARY | ~2019-10-27 | XMS | Clinical Summary ---
Demographics + + + | Address | [address] | | | [place] [address] | + + + | Home Phone | | + + + | Preferred Language | Unknown | + + + | Marital Status | | + + + | Samaritan Affiliation | Unknown | + + + | Race | Unknown | + + + | Ethnic Group | Unknown | + + + Author + + + | Author | [employer] (Historical as of | | | 01-17-19) | + + + | Organization | [facility] [employer] (Historical as of | | | 01-17-19) | + + + | Address | Unknown | + + + | Phone | Unavailable | + + + Support + + + + + | Name | Relationship | Address | Phone | + + + + + | Lucy Winchester | ECON | [place], | | | | | [place] [address] | | + + + + + | Kellen Briones | ECON | Unknown | | + + + + + Care Team Providers + +------+ + | Care Twist Tester Name | Role | Phone | [...] +------+-------+ + | MEDICARE | MEDICA | [id number] | | | [address] | | | RE | | | | [place] [address] | | | IP-OP | | | | | + +--------+ +------+-------+ + | UNITED HEALTHCARE | UNITED | [id number] | | | | | | | | | | | | | HEALTH | | | | | | | CARE - | | | | | | | AARP | | | | | + +--------+ +------+-------+ + | STEPHANIE - ERICKA - | CHAMPV | [id number] | | | [place] [address] | | [place] | A | | | | [place] | | | | | | | [address] | + +--------+ +------+-------+ + + +--------+ [...] | | al/Fam | | 194 | [phone] | [place] | | | amanuel | | | [address]: | [address] | | | | | | | | | | | | [phone] | | | | | | | 8636 | | + +--------+ +--------+ + +"
--- OUTSIDE RECORDS SUMMARY | ~2019-10-27 | XMS | Encounter Summary ---
Demographics + + + | Address | [address] | | | [place] [address] | + + + | Home Phone [...] [place], | | | | | [place] [address] | | + + + + + | Kellen Briones | ECON | [place], [place] | | | | | [address] | | + + + + + Care Team Providers + +------+ + | Care Client Services Vice President Name | Role | Phone [...] Thoracic or | [place], | [address] | | | | | lumbosacral | Tk Monreal MD | [place] [place], | | | | | neuritis or | [address] | [place] | | | | | | [place] | [address] | | | | | radiculitis, | [place], [place] | Phone: | | | | | unspecified | [address] | [phone] | | | | | Procedures | Phone: | Fax: | | | | | [place] INJECT | [phone] | [phone] | | | | | ANES/STEROID | Fax: | | | | | | FORAMEN | [phone] | | | | | | LUMBAR/SACRA [...] + + | 06/08/ | Hospital | [facility] | Tk Ann | Lumbar radiculopathy | | 2015 | Encounter | MED CTR XRAY [address] | T, [address] | (Primary Dx); DDD | | | | [address] [place] | [place], [place] | (degenerative disc | | | | [place] [address] | [address] | disease), lumbar; | | | | [phone] | | Facet arthritis of | | | | | [employer] Super[facility] | lumbar region-Most | | | | | [place] | severe at | | | | | | L4-L5,L5-S1; Spinal | | | | | | stenosis of lumbar | | | | | | region with | | | | | | rveshxjlmccob-B1-N6 | | | | | | level [...] with | | | | | | hkrinjbxzukub-A2-T8 | | | | | | level [...] radiculopathy ICD-9 Code 724.4 Clementine Phoenix | [facility] | | Annabella presents to the fluoroscopy suite for fluoroscopically-guided [facility] | | bilateral L5-S1 [...] + | [facility] | [address] | [place], [place] | [phone] | | [facility] | | [address] | | | - IMAGING | | [...] | Spinal stenosis of lumbar region with fyevjkkrlierm-L5-R1 level moderately severe | | Spinal stenosis, [...]
--- OUTSIDE RECORDS SUMMARY | ~2019-10-27 | XMS | Encounter Summary ---
Demographics + + + | Address | [address] | | | [place] [address] | + + + | Home Phone [...] [place], | | | | | [place] [address] | | + + + + + | Kellen Briones | ECON | [place], [place] | | | | | [address] | | + + + + + Care Team Providers + +------+ + | Care Bobbin Sorter Name | Role | Phone | + [...] | [facility] | Patrick Gaffney MD [address] | Other | | 2012 | | NEUROLOGY [place]URIER | [facility] | | | | | [address] [facility], | [address] [place], | | | | | [address] [facility] | [place] [address] | | | | | [place] [address] | [phone] | | | | | [phone] | | | +--------+ + + + [...]
--- OUTSIDE RECORDS SUMMARY | ~2019-10-27 | XMS | Encounter Summary ---
Demographics + + + | Address | [address] | | | [place] [address] | + + + | Home Phone [...] [place], | | | | | [place] [address] | | + + + + + | Kellen Briones | ECON | [place], [place] | | | | | [address] | | + + + + + Care Team Providers + +------+ + | Care Tractor Expert Name | Role | Phone | + [...] + + | 07/30/ | Telephone | [facility] | Monster White MD | Medication Question | | 2019 | | [facility] | [address] | | | | | ORTHOPEDIC SPINE | [address] [place], [place] | | | | | [address] | [address] | | | | | [place], [place] | | | | | | [address] | | | | | | [phone] | | | +--------+ + + + [...]
--- OUTSIDE RECORDS SUMMARY | ~2019-10-27 | XMS | Encounter Summary ---
Demographics + + + | Address | [address] | | | [place] [address] | + + + | Home Phone [...] [place], | | | | | [place] [address] | | + + + + + | Kellen Briones | ECON | [place], [place] | | | | | [address] | | + + + + + Care Team Providers + +------+ + | Care Amalgamator Name | Role | Phone | + [...] | Cervical | Mar[place], | [address] | | | | | spondylosis | Tk Monreal MD | [place], | | | | | Procedures | [address] | [place] | | | | | [place] INJ | [place] | [address] | | | | | DX/THER AGNT | [facility], [place] | Phone: | | | | | [place] | [address] | [phone] | | | | | [address] [place], | Phone: | Fax: | | | | | | [phone] | [phone] | | | | | CERV/THORAC, | Fax: | | | | | | 1ST LEVEL | [phone] | | | | | | AR INJ | | | | | | | DX/THER AGNT | | | | | | | [place] | | | | | | | [address] [place], | | | | | | | | | | | | | | CERV/THORAC, | | | | | | | 2ND LEVEL | | | | | | | AR INJ | | | | | | [...] + + | 03/08/ | Hospital | [facility] | P[place], | Neck pain on right | | 2015 | Encounter | MED CTR XRAY [address] | AYAAN Taylor [address] | side; DDD | | | | [place] | [facility] [address] | (degenerative disc | | | | [place] [address] | [place] [address] | disease), cervical; | | | | [phone] | [phone] | Facet arthritis of | | | | | | cervical region | | | | | Broiler ManagerJordan | | | | | | [...] 721.0 Clementine Winchester presents to the | [facility] | | fluoroscopy suite for fluoroscopically-guided right C3-C4, C4-C5 and | [facility] | | C5-C6 facet injections as [...] [address] | [place] | [phone] | | [facility] | | [address] | | | - IMAGING | | [...]
--- OUTSIDE RECORDS SUMMARY | ~2019-10-27 | XMS | Encounter Summary ---
Demographics + + + | Address | [address] | | | [place] [address] | + + + | Home Phone [...] [place], | | | | | [place] [address] | | + + + + + | Kellen Briones | ECON | [place], [place] | | | | | [address] | | + + + + + Care Team Providers + +------+ + | Care Pad Making Machine Operator Name | Role | Phone [...] [address] | [address] [place], [place] | | | | | [place] | [id number] | | | | | [address] | | | | | | [phone] | | | +--------+ + + + [...] [address] . | [place] | [phone] | | [facility] | | [address] | | | - IMAGING | | | | + + + + + documented in this encounter Visit Diagnoses + + | Diagnosis | + + | Neck pain - Primary Cervicalgia | + + documented in this encounter"
--- OUTSIDE RECORDS SUMMARY | ~2019-10-27 | XMS | Encounter Summary ---
Demographics + + + | Address | [address] | | | [place] [address] | + + + | Home Phone | | + + + | Preferred Language | Unknown | + + + | Marital Status | Unknown | + + + | Druze Affiliation | Unknown | + + + | Race | Unknown | + + + | Ethnic Group | Unknown | + + + Author + + + | Author | [facility] | + + + | Organization | [facility] | + + + | Address | Unknown | + + + | Phone | Unavailable | + + + Care Team Providers + +------+ + | Care Asphalt Spreader Operator Name | Role | Phone | [...] | | | Marleni Viera | Maximiliano [place] | | | | | | [place] | Research | | | | | | Research | [address], [facility] | | | | | | [address], [address] | Floor | | | | | | Floor | [place], [place] | | | | | | [place], [place] | [address] | | | | | | [address] | Phone: | | | | | | Phone: | [phone] | | | | | | [phone] | Fax: | | | | | | Fax: | [phone] | | | | | | [phone] | | +--------+--------+ + + + + Encounter Details +--------+ + + + + | Date | Type | Department | Care Team | Description | +--------+ + + + + | 07/25/ | Outside | Neurophysiology | Anna Draper, | | | 2012 | Referral | EEG at [facility] [address] | [place] | | | | Order | [address] | [facility] | | | | | [facility] | [address] [place], | | | | | [place], [address] Floor | [place] [address] | | | | | [place], [place] | [phone] | | | | | [address] | | | | | | [phone] | | | +--------+ + + + [...] 1940 Medical | | | Record Number: [id number] Date of Test: 07/24/2012 Place of | | | Service: [facility] Department: EEG [facility] - [id number] | | | ROUTINE EEG Indication: evaluate [...] daily Nitrostat 0.4 mg PRN chest pain [place] | | | 7.5/325 mg twice daily [...] . | | | [facility]. EEG Description Interictal Record: The | [...] | | | MD VIRY. Suggested CPT: 20089 - EEG Routine Awake Only | | | Suggested Dx: 348.30 - Encephalopathy, Unspecified | | + + + documented in this encounter Visit Diagnoses Not on filedocumented in this encounter"
--- OUTSIDE RECORDS SUMMARY | ~2019-10-27 | XMS | Encounter Summary ---
Demographics + + + | Address | [address] | | | [place] [address] | + + + | Home Phone [...] [place], | | | | | [place] [address] | | + + + + + | Kellen Briones | ECON | [place] | | | | | [address] | | + + + + + Care Team Providers + +------+ + | Care Public Safety Police Name | Role | Phone | + +------+ + | Barb Marte | THANG | | + +------+ + Encounter Details +--------+ + + + + | Date | Type | Department | Care Team | Description | +--------+ + + + + | 06/19/ | Prep for | [facility] | Cat Ware | Type 1 diabetes | | 2020 | Procedure | [facility] | [address] | mellitus without | | | | ORTHOPEDIC SPINE | [address] | complication (HCC) | | | | [address] | [place] [address] | (Primary Dx); Lumbar | | | | [place], [place] | [phone] | degenerative disc | | | | [address] | | disease; | | | | [phone] | | Spondylolisthesis of | | | [...] [facility] | | | | performed at [facility] | | LABORATORY | | | | [address];[place], [place] | | | | | | [address] | | | | + + + + + + + + | Specimen | + + | Tissue - Both | | anterior nares (body | | structure) | + + + + + + + | Performing | Address | City/State/Zipcode | Phone Number | | Organization | | | | + + + + + | [facility] | [address] | [place] [address] | [phone] | + + + + + Type [...] | [facility] | | | Screen | [facility];[address] | | LABORATORY | | | | [address];[place] [address] | | | | + + + + + + + + | Specimen | + + | Blood | + + + + + + + | Performing | Address | City/State/Zipcode | Phone Number | | Organization | | | | + + + + + | [facility] | [address] | [place] [address] | [phone] | + + + + + Hemoglobin A1C (07/08/2019 4:39 PM PST) + + + + + + | Component | Value | Ref Range | Performed | Pathologist | | | | | At | Signature | + + + + + + | Hemoglobin | 6.3 (H)Comment: HbA1c | 4.0 - 6.0 % | [facility] | | | A1c [...] | 134Comment: Estimated | <154 mg/dL | [facility] | | | Average | Average Glucose | | LABORATORY | | | Glucose | calculated from | | | | | | hemoglobin A1c by use of | | | | | | the ADArecommended | | | | | | formula.Testing | | | | | | performed at [facility], [address] | | | | | | [facility], | | | | | | [place] [address] | | | | + + + + + + + + | Specimen | + + | Blood | + + + + + + + | Performing | Address | City/State/Zipcode | Phone Number | | Organization | | | | + + + + + | [facility] | [address] | [place] [address] | [phone] | + + + + + PTT (07/08/2019 4:39 PM PST) + + + + + + | Component | Value | Ref Range | Performed | Pathologist | | | | | At | Signature | + + + + + + | PTT | 30Comment: Testing | 23 - 32 seconds | [facility] | | | | performed at [facility];[address] | | LABORATORY | | | | [address];[place], [place] | | | | | | [address] | | | | + + + + + + + + | Specimen | + + | Blood | + + + + + + + | Performing | Address | City/State/Zipcode | Phone Number | | Organization | | | | + + + + + | [facility] | [address] | [place] [address] | [phone] | + + + + + Protime INR (07/08/2019 4:39 PM PST) + + + + + + | Component | Value | Ref Range | Performed | Pathologist | | | | | At | Signature | + + + + + + | INR | 1.0Comment: REFERENCE | | [facility] | | | | [...] | | | | | performed at [facility];[address] | | | | | | [address];[place] | | | | | | [address] | | | | + + + + + + + + | Specimen | + + | Blood | + + + + + + + | Performing | Address | City/State/Zipcode | Phone Number | | Organization | | | | + + + + + | [facility] | [address] [facility] | [place] [address] | [phone] | + + + + + Comprehensive [...] 27 (L)Comment: GFR <60: | >60 | [facility] | | | GFR [...] | | | | | performed at [facility], [address] | | | | | | [facility], | | | | | | [place] [address] | | | | + + + + + + + + | Specimen | + + | Blood | + + + + + + + | Performing | Address | City/State/Zipcode | Phone Number | | Organization | | | | + + + + + | [facility] | [address] | [place] [address] | [phone] | + + + + + CBC [...] | | | Absolute | performed at [facility], [address] | K/uL | LABORATORY | | | | [place] [address], | | | | | | [place] [address] | | | | + + + + + + + + | Specimen | + + | Blood | + + + + + + + | Performing | Address | City/State/Zipcode | Phone Number | | Organization | | | | + + + + + | [facility] | [address] | [place] [address] | [phone] | + + + + + documented [...]
--- OUTSIDE RECORDS SUMMARY | ~2019-10-27 | XMS | Clinical Summary ---
Demographics + + + | Address | [address] | | | [place] [address] | + + + | Home Phone | | + + + | Preferred Language | Unknown | + + + | Marital Status | | + + + | Yazidism Affiliation | Unknown | + + + | Race | Unknown | + + + | Ethnic Group | Unknown | + + + Author + + + | Author | [email or web address] (Historical as of | | | 01-17-19) | + + + | Organization | [email or web address] (Historical as of | | | 01-17-19) | + + + | Address | Unknown | + + + | Phone | Unavailable | + + + Support + + + + + | Name | Relationship | Address | Phone | + + + + + | Lucy Winchester | ECON | [place], | | | | | [place] [address] | | + + + + + | Kellen Briones | ECON | Unknown | | + + + + + Care Team Providers + +------+ + | Care Fagot Heater Name | Role | Phone | + [...] | + + + | History of [place] (myocardial infarction) | 03/30/2016 | + + [...] +------+-------+ + | MEDICARE | MEDICA | [id number] | | | [address] | | | RE | | | | [place] [address] | | | IP-OP | | | | | + +--------+ +------+-------+ + | UNITED HEALTHCARE | UNITED | [id number] | | | | | | | | | | | | | HEALTH | | | | | | | CARE - | | | | | | | AARP | | | | | + +--------+ +------+-------+ + | STEPHANIE - ERICKA - | CHAMPV | [id number] | | | [place] [address] | | LU[place] | A | | | | [place] | | | | | | | [address] | + +--------+ +------+-------+ + + +--------+ [...] | | al/Fam | | 194 | [phone] | [place] | | | amanuel | | | [address]: | [address] | | | | | | | | | | | | | [phone] | | | | | | | 8636 | | + +--------+ +--------+ + +"
--- OUTSIDE RECORDS SUMMARY | ~2019-10-27 | XMS | Encounter Summary ---
Demographics + + + | Address | [address] | | | [place] [address] | + + + | Home Phone [...] [place], | | | | | [place] [address] | | + + + + + | Kellen Briones | ECON | [place], [place] | | | | | [address] | | + + + + + Care Team Providers + +------+ + | Care Commercial Loan Coordinator Name | Role | Phone | [...] [place] | | | | | | [address] | | | | | | [phone] | | | +--------+ + + + [...]
--- OUTSIDE RECORDS SUMMARY | ~2019-10-27 | XMS | Encounter Summary ---
Demographics + + + | Address | [address] | | | [place] [address] | + + + | Home Phone [...] [place], | | | | | [place] [address] | | + + + + + | Kellen Briones | ECON | [place] | | | | | [address] | | + + + + + Care Team Providers + +------+ + | Care Dog Licenser Name | Role | Phone | + +------+ + | Barb Marte | THANG | | + +------+ + Encounter Details +--------+ + + + + | Date | Type | Department | Care Team | Description | +--------+ + + + + | 03/05/ | Hospital | [facility] | Barb Marte PA | Abnormal mammogram | | 2018 | Encounter | MED CTR MAMMOGRAPHY | [address] | | | | | [address] | [address] [place] | | | | | [place] | [address] | | | | | [address] | | | | | | [phone] | [place] | | +--------+ [...]
--- OUTSIDE RECORDS SUMMARY | ~2019-10-27 | XMS | Encounter Summary ---
Demographics + + + | Address | [address] | | | [place] [address] | + + + | Home Phone [...] [place], | | | | | [place] [address] | | + + + + + | Kellen Briones | ECON | [place], [place] | | | | | [address] | | + + + + + Care Team Providers + +------+ + | Care Banquet Captain Name | Role | Phone | [...] + + | 02/11/ | Office | [facility] | Mono [place], | Lumbar radiculopathy | | 2018 | Visit | PHYSIATRY [address] | PA-C [address] | (Primary Dx) | | | | [address] | [address] [facility] | | | | | [place], [place] | [place] [address] | | | | | [address] | [phone] | | | | | [phone] | | | +--------+---------+ + + + [...] the procedure you must provide a electric lift truck driver to take you home. For [...] press against a nerve. Date Last Reviewed: 08/01/[id number] [employer]. [address] [place] [address], [place] [address]. All righ ts reserved. This information is [...] back symptoms. Recenlty patient was admitted to [facility]'s ED/ICU for abnormal behavior which was originally treated as a str samantha, patient's daughter requested she be transferred to [facility] where patient was diagnosed w ith Serotonin [...] and narcotic medications use; she currently uses [place], Flexeril and [place] bapentin. 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 Unfortunately Clementine Winchester continues to have significant [...]
--- OUTSIDE RECORDS SUMMARY | ~2019-10-27 | XMS | Encounter Summary ---
Demographics + + + | Address | [address] | | | [place] [address] | + + + | Home Phone [...] [place], | | | | | [place] [address] | | + + + + + | Kellen Briones | ECON | [place], [place] | | | | | [address] | | + + + + + Care Team Providers + +------+ + | Care Silver Miner Blasting Name | Role | Phone | + [...] + | 04/30/ | Refill | [facility] | Irving Becerril, | Medication Refill | | 2015 | | NEUROSURGERY [address] | DO [address] | | | | | [address] | [address] [place], [place] | | | | | [place], [place] | [id number] | | | | | [address] | | | | | | [phone] | | | +--------+--------+ + + + [...]
--- OUTSIDE RECORDS SUMMARY | ~2019-10-27 | XMS | Encounter Summary ---
Demographics + + + | Address | [address] | | | [place] [address] | + + + | Home Phone [...] [place], | | | | | [place] [address] | | + + + + + | Kellen Briones | ECON | [place] | | | | | [address] | | + + + + + Care Team Providers + +------+ + | Care Distribution Manager Name | Role | Phone | [...] | | | [address] | Way [place], [place] | | | | | [place], [place] | [address] | | | | | [address] | | | | | | [phone] | | | +--------+ + + + [...] | maxP.57 mmHg TR Vmax: 2.89 m/s Sfdc Developer: | | | Authenticated by: BUCK SOTO [...] cmLVPWd: 1.17 | | cmLVOT Area: 3.02 uw8HFPT Diam: 1.96 cm%FS: 38.74 %EF(Teich): 69.95 %ESV(Teich): [...] (A-L): 22.04 ml/m2LAAs A2C: | | 13.50 [id number] A-L A2C: 36.98 mlLALs A2C: 4.18 cmLAAs A4C: 13.35 py0KHCOU A-L A4C: | | 31.07 mlLALs A4C: 4.87 cmRAAs: 22.15 rp4COIYJ A-L: 78.87 mlRAESV MOD: 76.76 | | mlRALs: 5.28 cmTAPSE: 1.36 cmAV maxP.05 mmHgAV meanP.09 mmHgAV Vmax: | | 1.50 m/Shreyas Vmean: 1.08 m/Shreyas VTI: 30.75 cmAVA Vmax: 2.05 cm2AVA (VTI): 2.07 | | pr5FSLL Vmax: 0.00 cm2/m2AVAI (VTI): 0.00 cm2/m2LVOT maxP.16 mmHgLVOT meanPG: | | 2.03 mmHgLVSI Dopp: 38.41 ml/m2LVSV Dopp: 63.76 mlLVOT Vmax: 1.02 m/sLVOT Vmean: | | 0.65 m/sLVOT VTI: 21.09 cmMV A Obed: 1.25 m/sMV DecT: 137.22 msMV E Obed: 1.08 | | m/sMV E/A Ratio: 0.86MV PHT: 39.79 msMVA By PHT: 5.52 ll3Pziubg e': 0.03 | | m/sSeptal E/e': 33.19Lateral e': 0.05 m/sLateral E/e': 19.41RAP: 10 mmHgRVSP: | | 43.57 mmHgTR maxP.57 mmHgTR Vmax: 2.89 m/s Sfdc Developer:Authenticated by: | | ELIZABETH ROYeport Date/Time: 08-20-2017 [...] |TR Vmax: 2.89 m/s | | | |Sfdc Developer: | |Authenticated by: BUCK SOTO MD | [...]
--- OUTSIDE RECORDS SUMMARY | ~2019-10-27 | XMS | Encounter Summary ---
Demographics + + + | Address | [address] | | | [place] [address] | + + + | Home Phone [...] [place], | | | | | [place] [address] | | + + + + + | Kellen Briones | ECON | [place] | | | | | [address] | | + + + + + Care Team Providers + +------+ + | Care Cement Tester Assistant Name | Role | Phone | [...] | | | | | [address] [facility] | [place] [address] | | | | | [place] [address] | | | | | | [phone] | | | +--------+ + + + [...]
--- OUTSIDE RECORDS SUMMARY | ~2019-10-27 | XMS | Encounter Summary ---
Demographics + + + | Address | [address] | | | [place] [address] | + + + | Home Phone [...] [place], | | | | | [place] [address] | | + + + + + | Kellen Briones | ECON | [place], [place] | | | | | [address] | | + + + + + Care Team Providers + +------+ + | Care Rfid Manager Name | Role | Phone | [...] + + | 01/23/ | Telephone | [facility] | Mono Diaz, | Results, Imaging | | 2017 | | [address]SIATRY [address] | PA-C [address] | | | | | [address] | [address] [facility] | | | | | [place] [facility] [place] | [place] [address] | | | | | [address] | [phone] | | | | | [phone] | | | +--------+ + + + [...]
--- OUTSIDE RECORDS SUMMARY | ~2019-10-27 | XMS | Encounter Summary ---
Demographics + + + | Address | [address] | | | [place] [address] | + + + | Home Phone [...] [place], | | | | | [place] [address] | | + + + + + | Kellen Briones | ECON | [place], [place] | | | | | [address] | | + + + + + Care Team Providers + +------+ + | Care Food Safety Officer Name | Role | Phone | [...] + + | 11/04/ | Office | [facility] | Patrick Gaffney MD [address] | Transient loss of | | 2012 | Visit | [facility] | [address] | consciousness | | | | [address] [facility], | [address], | (Primary Dx) | | | | [address] [place] | [place] [address] | | | | | [place] [address] | [phone] | | | | | [phone] | | | +--------+---------+ + + + [...] Nancy Rust RN - 09/2012 1:28 PM [id number]: BP recheck 110/70. documented in this e ncounter Plan of Treatment Not on filedocumented as of this encounter Visit Diagnoses + + | Diagnosis | + + | Transient loss of consciousness - Primary Syncope and collapse | + + documented in this encounter"
--- OUTSIDE RECORDS SUMMARY | ~2019-10-27 | XMS | Encounter Summary ---
Demographics + + + | Address | [address] | | | [place] [address] | + + + | Home Phone [...] [place], | | | | | [place] [address] | | + + + + + | Kellen Briones | ECON | [place] | | | | | [address] | | + + + + + Care Team Providers + +------+ + | Care Operation Shift Supervisor Name | Role | Phone | + +------+ + | Barb Marte | THANG | | + +------+ + Encounter Details +--------+ + + + + | Date | Type | Department | Care Team | Description | +--------+ + + + + | 07/08/ | Hospital | [facility] | Monster White MD | | | 2020 | Encounter | [facility] | [address] | | | | | [address] | [address] [place], [place] | | | | | [place], [place] | [address] | | | | | [address] | | | | | | [phone] | | | +--------+ + + + [...]
--- OUTSIDE RECORDS SUMMARY | ~2019-10-27 | XMS | Encounter Summary ---
Demographics + + + | Address | [address] | | | [place] [address] | + + + | Home Phone [...] + | Luyc Winchester | ECON | [place], | | | | | [place] [address] | | + + + + + | Kellen Briones | ECON | [place], [place] | | | | | [address] | | + + + + + [...] + + | 04/04/ | Telephone | [facility] | Irving Becerril, | Imaging Only | | 2016 | | NEUROSURGERY [address] | DO [address] | (Cervical xray ) | | | | [address] | [address] [place], [place] | | | | | [place], [place] | [id number] | | | | | [address] | | | | | | [phone] | | | +--------+ + + + [...]
--- OUTSIDE RECORDS SUMMARY | ~2019-10-27 | XMS | Encounter Summary ---
Demographics + + + | Address | [address] | | | [place] [address] | + + + | Home Phone [...] [place], | | | | | [place] [address] | | + + + + + | Kellen Briones | ECON | [place], [place] | | | | | [address] | | + + + + + Care Team Providers + +------+ + | Care Smelter Operator Name | Role | Phone | [...] + + | 08/01/ | Telephone | [facility] | Ramon Real | Other | | 2012 | | [address] | MD Idris [address] | | | | | [address] | [place], [place] | | | | | [place], [place] | [address] | | | | | [address] | [phone] | | | | | [phone] | | | +--------+ + + + [...]
--- OUTSIDE RECORDS SUMMARY | ~2019-10-27 | XMS | Encounter Summary ---
Demographics + + + | Address | [address] | | | [place] [address] | + + + | Home Phone [...] [place], | | | | | [place] [address] | | + + + + + | Kellen Briones | ECON | [place], [place] | | | | | [address] | | + + + + + Care Team Providers + +------+ + | Care Spinner Iron Name | Role | Phone | + [...] + + | 09/30/ | Office | [facility] | Pippa, | DDD (degenerative | | 2015 | Visit | PHYSIATRY [address] | [address] | disc disease), | | | | [address] | [address] | lumbar (Primary Dx); | | | | [place] | [place] [address] | Spinal stenosis of | | | | [address] | [phone] | lumbar region with | | | | [phone] | | [id number] | | | | | | level [...] of the procedure you must provide a automation driver to take you home. For all [...] spinal stenosis. Her last injection was in [facility] of this year. She reports [...] and narcotic medications use; she currently uses [place], Flexeril and ga bapentin. Patient's medications, allergies, [...] has no apparent deficits with short or visualization developer memory. She has appropriate fund of knowledge [...] 2. Spinal stenosis of lumbar region with zgcnuurfxhqah-[id number] level moderately severe 3. Lumbar radiculopathy 4. [...] fluoroscopy suite for fluoroscopically-guided | [facility] | | bilateral [...] [address] | [place] | [phone] | | [facility] | | [address] | | | - IMAGING | | | | + + + + + documented in this encounter Visit Diagnoses + + | Diagnosis | + + | DDD (degenerative disc disease), lumbar - Primary Degeneration of lumbar or | | lumbosacral intervertebral disc | + + | Spinal stenosis of lumbar region with dobtufrqzccrz-B3-F3 level moderately severe | | Spinal stenosis, [...]
--- OUTSIDE RECORDS SUMMARY | ~2019-10-27 | XMS | Encounter Summary ---
Demographics + + + | Address | [address] | | | [place] [address] | + + + | Home Phone [...] [place], | | | | | [place] [address] | | + + + + + | Kellen Briones | ECON | [place] | | | | | [address] | | + + + + + Care Team Providers + +------+ + | Care Sign Erector And Repairer Name | Role | Phone | [...] | 03/19/ | Office | [facility] | Mono Diaz, | Lumbar radiculopathy | | 2018 | Visit | [address]YSIATRY [address] | PA-C [address] | (Primary Dx) | | | | [address] | [address] [place] | | | | | [place], [place] | [place] [address] | | | | | [address] | [phone] | | | | | [phone] | | | +--------+---------+ + + + [...] of the procedure you must provide a vacuum truck driver to take you home. For [...] press against a nerve. Date Last Reviewed: 08/01/201719990019-1284 [employer]. [address] [place] [address]. All righ ts reserved. This information is [...] and narcotic medications use; she currently uses [place], Flexeril and ga bapentin. 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 Unfortunately Clementine Winchester continues to have significant [...]
--- OUTSIDE RECORDS SUMMARY | ~2019-10-27 | XMS | Encounter Summary ---
Demographics + + + | Address | [address] | | | [place] [address] | + + + | Home Phone [...] [place], | | | | | [place] [address] | | + + + + + | Kellen Briones | ECON | [place] | | | | | [address] | | + + + + + Care Team Providers + +------+ + | Care Motor Equipment Lieutenant Name | Role | Phone | + +------+ + | Barb Marte | THANG | | + +------+ + Encounter Details +--------+ + + + + | Date | Type | Department | Care Team | Description | +--------+ + + + + | 07/08/ | Hospital | [facility] | Monster White MD | Preop testing | | 2020 | Encounter | [facility] | [address] | | | | | ELECTRODIAGNOSTICS | [address] [place], [place] | | | | | [address] | [address] | | | | | [place], [place] | | | | | | [address] | | | | | | [phone] | | | +--------+ + + + [...]
--- OUTSIDE RECORDS SUMMARY | ~2019-10-27 | XMS | Encounter Summary ---
Demographics + + + | Address | [address] | | | [place] [address] | + + + | Home Phone [...] [place], | | | | | [place] [address] | | + + + + + | Kellen Briones | ECON | [place], [place] | | | | | [address] | | + + + + + Care Team Providers + +------+ + | Care Motorcycle Designer Name | Role | Phone | [...] + + | 11/04/ | Office | [facility] | Patrick Gaffney MD [address] | Transient loss of | | 2012 | Visit | [facility] | [address] | consciousness | | | | [address] [facility], | [address], | (Primary Dx) | | | | [address] [place] | [place] [address] | | | | | [place] [address] | [phone] | | | | | [phone] | | | +--------+---------+ + + + [...] Nancy Rust RN - 09/2012 1:28 PM [id number]: BP recheck 110/70. documented in this e ncounter Plan of Treatment Not on filedocumented as of this encounter Visit Diagnoses + + | Diagnosis | + + | Transient loss of consciousness - Primary Syncope and collapse | + + documented in this encounter"
--- OUTSIDE RECORDS SUMMARY | ~2019-10-27 | XMS | Encounter Summary ---
Demographics + + + | Address | [address] | | | [place] [address] | + + + | Home Phone [...] [place], | | | | | [place] [address] | | + + + + + | Kellen Briones | ECON | [place] | | | | | [address] | | + + + + + Care Team Providers + +------+ + | Care Stitch Bonding Machine Tender Helper Name | Role | Phone | + +------+ + | Barb Marte | PCP | | + +------+ + Encounter Details +--------+ + + + + | Date | Type | Department | Care Team | Description | +--------+ + + + + | 08/04/ | Clinical | [facility] | | S/P lumbar spinal | | 2020 | Support | NEUROSURGERY [address] | | fusion | | | | [address] | | | | | | [facility] [place] | | | | | | [address] | | | | | | [phone] | | | +--------+ + + + [...] with her symptoms. Patient is currently at [facility], hopes to be discharged home this week. [...]
--- OUTSIDE RECORDS SUMMARY | ~2019-10-27 | XMS | Encounter Summary ---
Demographics + + + | Address | [address] | | | [place] [address] | + + + | Home Phone [...] [place], | | | | | [place] [address] | | + + + + + | Kellen Briones | ECON | [place] | | | | | [address] | | + + + + + Care Team Providers + +------+ + | Care Clinical Operations Consultant Name | Role | Phone | [...] | | | | ORTHOPEDIC SPINE | [facility] | Medication Question | | | | [address] | [place] [address] | | | | | [place], [place] | [phone] | | | | | [address] | | | | | | [phone] | | | +--------+ + + + [...]
--- OUTSIDE RECORDS SUMMARY | ~2019-10-27 | XMS | Encounter Summary ---
Demographics + + + | Address | [address] | | | [place] [address] | + + + | Home Phone [...] [place], | | | | | [place] [address] | | + + + + + | Kellen Briones | ECON | [place] | | | | | [address] | | + + + + + Care Team Providers + +------+ + | Care Lehr Tender Name | Role | Phone | + +------+ + | Barb Marte | PCP | | + +------+ + Encounter Details +--------+ + + + + | Date | Type | Department | Care Team | Description | +--------+ + + + + | 01/31/ | Hospital | [facility] | Conversion | Diagnosis unknown | | 2018 | Encounter | CONVERSION [address]P [address] | Transaction, | | | | | [address] | Provider Unknown | | | | | [place] | [phone] | | | | | [address] | | | | | | [phone] | | | +--------+ + + + [...]
--- OUTSIDE RECORDS SUMMARY | ~2019-10-27 | XMS | Encounter Summary ---
Demographics + + + | Address | [address] | | | [place] [address] | + + + | Home Phone [...] [place], | | | | | [place] [address] | | + + + + + | Kellen Briones | ECON | [place], [place] | | | | | [address] | | + + + + + Care Team Providers + +------+ + | Care Board Stacker Name | Role | Phone | [...] | | | | hesis of | [address] | | | | | | lumbar | Phone: | | | | | | region | [phone] | | | | | | | Fax: | | | | | | | [phone] | | + + + + + [...] | | | | | Spondylolist | [place] | | | | | | hesis of | [address] | | | | | | lumbar | Phone: | | | | | | region | [phone] | | | | | | | Fax: | | | | | | | [phone] | | + + + + + [...] | | | | Lumbar | | [address] Phone: | | | | | degenerative | | [phone] | | | | | disc | | Fax: | | | | | disease | | [phone] | | | | | Procedures | | | | | | | LAMINEC/FACE | | | | | | | TECT/FORAMIN | | | | | | | ,LUMBAR 1 | | | | | | | SEG NC | | | | | | [...] + + | 07/22/ | Hospital | [facility] | Monster White MD | Type 1 diabetes | | 2019 - | Encounter | [facility] [address] | [address] | mellitus without | | | | [address] | [place], [place] | complication (HCC); | | 07/29/ | | [place], [place] | [address] | Lumbar degenerative | | 2019 | | [address] | | disc disease; | | | | [phone] | | Spondylolisthesis of | | | [...] Physician Discharge Summary Patient ID: Clementine Winchester [id number] y.o. 1940 Admit date: 07/22/2019 Discharge [...] keep wound clean and dry Follow-up with [facility] within 2 weeks. Activity restrictions, dressing [...] Itzel Adams RN - 07/28/2019 4:11 AM [facility] chart check complete. Electronically si gned by Itzel Alejandre RN at 07/28/2019 4:12 AM Macie Chapa PA-C - 07/24/2019 9:53 AM PST Orthopedic Spine Progress Note Postop [facility] Neurosurgery Provider: Macie Cordova PA-C Date : [...] anesthesia Arthritis Asthma Back pain Breast cancer ([facility]) 1987 Cancer ([facility]) Right breast Chronic diarrhea Chronic narcotic use COPD (chronic obstructive pulmonary disease) ([facility]) Coronary artery disease DDD (degenerative disc disease), cervical 05/13/2013 DDD (degenerative disc disease), lumbar 07/23/2012 Depression Diabetes mellitus ([facility]) Diabetes type 2, controlled ([facility]) Facet arthritis of cervical region 05/13/2013 Facet arthritis of lumbar region-Most severe at L4-L5,L5-S1 07/23/2012 Full dentures upper & lower GERD (gastroesophageal reflux disease) Heart attack ([facility]) Hyperlipidemia Hypertension Lumbar radiculopathy 07/23/2012 VT (myocardial infarction) ([facility]) Neck pain on right side 05/13/2013 Oxygen dependent 2 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 PTSD (post-traumatic stress disorder) Snoring Spinal stenosis of lumbar region with iejehhegkcdge-C7-T2 level moderately severe 2012 Thyroid disease Social History Socioeconomic History Marital status: Spouse name: Not on file Number of children: Not on file Years of education: 14 Highest education level: Not on file Occupational History 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 MAIN OR CORONARY ARTERY BYPASS GRAFT 2009 HYSTERECTOMY, TOTAL ABDOMINAL 1969 LUMBAR SPINE SURGERY N/A 07/22/2019 Procedure: FUSION LUMBAR W/ LATERAL APPROACH (XLIF) L4/5; Surgeon: Monster White MD; Loca tion: [facility] MAIN OR LUMBAR SPINE SURGERY N/A 07/22/2019 Procedure: LAMINECTOMY POSTERIOR LUMBAR SPINAL FUSION L4/5; Surgeon: Monster White MD; L ocation: [facility] MAIN OR MASTECTOMY MASTECTOMY, RADICAL 1986 Right [...] H/O CVA/stroke 03/30/2016 Unknown Priority: Low H/O VT (myocardial infarction) 03/30/2016 Unknown Priority: Low H/O [...] Unknown Spinal stenosis of lumbar region with iyfwdfmibgucf-S4-F3 level moderately severe 07/23 Unknown Facet arthritis [...] and collapse Unknown Cancer Unknown Hyperlipidemia Unknown VT (myocardial infarction) Unknown GERD (gastroesophageal reflux disease) [...] 1. Type 1 diabetes mellitus without complication ([facility]) 2. Lumbar degenerative disc disease 3. Spondylolisthesis of lumbar region Past Medical History: Diagnosis Date Acid reflux disease Adverse effect of anesthesia trouble urinating after anesthesia Arthritis Asthma Back pain Breast cancer ([facility]) 1987 Cancer ([facility]) Right breast Chronic diarrhea Chronic narcotic use COPD (chronic obstructive pulmonary disease) ([facility]) Coronary artery disease DDD (degenerative disc disease), cervical 05/13/2013 DDD (degenerative disc disease), lumbar 07/23/2012 Depression Diabetes mellitus ([facility]) Diabetes type 2, controlled ([facility]) Facet arthritis of cervical region 05/13/2013 Facet arthritis of lumbar region-Most severe at L4-L5,L5-S1 07/23/2012 Full dentures upper & lower GERD (gastroesophageal reflux disease) Heart attack ([facility]) Hyperlipidemia Hypertension Lumbar radiculopathy 07/23/2012 VT (myocardial infarction) ([facility]) Neck pain on right side 05/13/2013 Oxygen dependent 2 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 PTSD (post-traumatic stress disorder) Snoring Spinal stenosis of lumbar region with hjqqaqodnkfji-T7-F7 level moderately severe 2012 Thyroid disease Current [...] mcg 100 mcg Oral Daily Yifan Ang, NEWSPAPER PEDDLER 100 mcg at 07/23/19 0801 docusate sodium (COLACE) capsule 100 mg 100 mg Oral BID Yifan Ang, NEWSPAPER PEDDLER 100 mg at 0 07/22/19 2024 DULoxetine (CYMBALTA) DR capsule 20 mg 20 mg Oral Daily Yifan Ang, NEWSPAPER PEDDLER 20 mg at 0801 fentaNYL (DURAGESIC) 25 mcg/hr 1 patch 1 patch Transdermal Q72H Yifan Ang, NEWSPAPER PEDDLER 1 p atch at 07/22/19 1407 furosemide (LASIX) tablet 20 mg 20 mg Oral Daily Yifan Ang, NEWSPAPER PEDDLER 20 mg at 07/22/19 1440 gabapentin (NEURONTIN) capsule 100 mg 100 mg Oral BID Yifan Ang, NEWSPAPER PEDDLER 100 mg at 0801 HYDROmorphone (DILAUDID) injection 0.2-0.4 mg 0.2-0.4 mg Intravenous Q1H PRN Yifan An g, NEWSPAPER PEDDLER lactulose liquid 30 mL 30 mL Oral Daily PRN Yifan Ang, NEWSPAPER PEDDLER levothyroxine (SYNTHROID) tablet 25 mcg 25 mcg Oral Daily Yifan Ang, NEWSPAPER PEDDLER 25 mcg at 07/23/19 0800 lisinopril (PRINIVIL, ZESTRIL) tablet 5 mg 5 mg Oral Daily Yifan Ang, NEWSPAPER PEDDLER 5 mg at 07/23/19 0801 metFORMIN (GLUCOPHAGE) tablet 500 mg 500 mg Oral Nightly Yifan Ang, NEWSPAPER PEDDLER 500 mg at 07/22/192023 methocarbamol (ROBAXIN) tablet 500 mg 500 mg Oral Q6H PRN Yifan Ang, NEWSPAPER PEDDLER 500 mg at 07/22/19 1825 ondansetron (ZOFRAN ODT) disintegrating tablet 4 mg 4 mg Oral Q6H PRN Yifan Ang, NEWSPAPER PEDDLER oxyCODONE (ROXICODONE) tablet 2.5-10 mg 2.5-10 mg Oral Q3H PRN Yifan Ang, NEWSPAPER PEDDLER 5 mg at 07/23/19 0309 pantoprazole (PROTONIX) DR tablet 40 mg 40 mg Oral QAM AC Yifan Ang, NEWSPAPER PEDDLER 40 mg at 07/23/19 0618 polyethylene glycol (MIRALAX) powder 17 g 17 g Oral Daily Yifan Ware, NEWSPAPER PEDDLER potassium chloride (KLOR-CON) ER tablet 10 mEq 10 mEq Oral Daily Yifan Ang, NEWSPAPER PEDDLER 10 mEq at 07/23/19 0801 senna (SENOKOT) tablet 8.6 mg 8.6 mg Oral BID Yifancali Ware, NEWSPAPER PEDDLER 8.6 mg at 07/22/19 20 24 sodium chloride 0.45% (1/2 NS) infusion Intravenous Continuous Yifan Ang, NEWSPAPER PEDDLER 100 m L/hr at 07/22/192027 sodium chloride 0.9% (NS) 1,000 mL bolus Intravenous Once Yifan Ang, NEWSPAPER PEDDLER 1,000 mL/h r at 07/23/19 0758 Allergies [...] Alignment: There | | | are 5 cgm-xcy-cbsvegn lumbar vertebral type bodies. There is 5 [...] FINDINGS: | | Alignment: There are 5 tjz-qfa-kycsztz lumbar vertebral type bodies. | | There [...] + + | Performing | Address | City/State/[facility] | Phone Number | | [...] | | Absolute | performed at [facility], [address] | [address] | LABORATORY | | | | [address] [place], | | | | | | [place] [address] | | | | + + + + + + + + | Specimen | + + | Blood | + + + + + + + | Performing | Address | City/State/Zipcode | Phone Number | | Organization | | | | + + + + + | [facility] | [address] | [place] [address] | [phone] | + + + + + Comprehensive [...] | >60Comment: GFR <60: | >60 | [facility] | | | GFR | CHRONIC KIDNEY [...] | | | | performed at [facility], [address] | | | | | | [facility], | | | | | | [place] [address] | | | | + + + + + + + + | Specimen | + + | Blood | + + + + + + + | Performing | Address | City/State/Zipcode | Phone Number | | Organization | | | | + + + + + | [facility] | [address] | [place] [address] | [phone] | + + + + + Comprehensive [...] | >60Comment: GFR <60: | >60 | [facility] | | | GFR | CHRONIC KIDNEY [...] | | | | | | MDRD IDNC traceable | | | | | | equation.Testing | | | | | | performed at [facility], [address] | | | | | | [facility], | | | | | | [place] [address] | | | | + + + + + + + + | Specimen | + + | Blood | + + + + + + + | Performing | Address | City/State/Zipcode | Phone Number | | Organization | | | | + + + + + | [facility] | [address] | [place] [address] | [phone] | + + + + + CBC [...] 0.01Comment: Testing | 0.00 - 0.10 | [facility] | | | Absolute | performed at [facility], [address] | [address] | LABORATORY | | | | [address], | | | | | | [place] [address] | | | | + + + + + + + + | Specimen | + + | Blood | + + + + + + + | Performing | Address | City/State/Zipcode | Phone Number | | Organization | | | | + + + + + | [facility] | [address] | [place] [address] | [phone] | + + + + + Uric Acid (07/28/2019 8:30 AM PST) + + + + + + | Component | Value | Ref Range | Performed | Pathologist | | | | | At | Signature | + + + + + + | Uric Acid | 7.6 (H)Comment: Testing | 2.2 - 7.1 mg/dL | [facility] | | | | performed at [facility], [address] | | LABORATORY | | | | [address], | | | | | | [place] [address] | | | | + + + + + + + + | Specimen | + + | Blood | + + + + + + + | Performing | Address | City/State/Zipcode | Phone Number | | Organization | | | | + + + + + | [facility] | [address] | [place] [address] | [phone] | + + + + + CBC [...] | | LABORATORY | | | | [facility], [address] | | | | | | [place] | | | | | | [address] | | | | + + + + + + + + | Specimen | + + | Blood | + + + + + + + | Performing | Address | City/State/Zipcode | Phone Number | | Organization | | | | + + + + + | [facility] | [address] | [place] [address] | [phone] | + + + + + Basic [...] | | | | performed at [facility], [address] | | | | | | [address] [facility], | | | | | | [place] [address] | | | | + + + + + + + + | Specimen | + + | Blood | + + + + + + + | Performing | Address | City/State/Zipcode | Phone Number | | Organization | | | | + + + + + | [facility] | [address] | [place] [address] | [phone] | + + + + + POC [...] | | | POC | performed at [facility];[address] | | LABORATORY | | | | [address];[place], [place] | | | | | | [address] | | | | + + + + + + + + | Specimen | + + | | + + + + + + + | Performing | Address | City/State/Zipcode | Phone Number | | Organization | | | | + + + + + | [facility] | [address] | [place] [address] | [phone] | + + + + + [place] [...] | | | POC | performed at [facility];[address] | | LABORATORY | | | | [address];[place], [place] | | | | | | [address] | | | | + + + + + + + + | Specimen | + + | | + + + + + + + | Performing | Address | City/State/Zipcode | Phone Number | | Organization | | | | + + + + + | [facility] | [address] | [place] [address] | [phone] | + + + + + POC Glucose (07/22/2019 6:31 AM PST) + + + + + + | Component | Value | Ref Range | Performed | Pathologist | | | | | At | Signature | + + + + + + | Glucose, | 99Comment: Testing | 65 - 99 mg/dL | [facility] | | | POC | performed at [facility];[address] | | LABORATORY | | | | [address];[place] | | | | | | [address] | | | | + + + + + + + + | Specimen | + + | | + + + + + + + | Performing | Address | City/State/Zipcode | Phone Number | | Organization | | | | + + + + + | [facility] | [address] | [place] [address] | [phone] | + + + + + Protime INR (07/22/2019 6:30 AM PST) + + + + + + | Component | Value | Ref Range | Performed | Pathologist | | | | | At | Signature | + + + + + + | INR | 1.0Comment: REFERENCE | | [facility] | | | | RANGE:0.9 - 1.2 [...] | | | | | performed at [facility];[address] | | | | | | [facility], [place] | | | | | | [address] | | | | + + + + + + + + | Specimen | + + | Blood | + + + + + + + | Performing | Address | City/State/Zipcode | Phone Number | | Organization | | | | + + + + + | [facility] | [address] | [place] [address] | [phone] | + + + + + Basic [...] | | | | | performed at [facility];[address] | | | | | | [address];[place], [place] | | | | | | [address] | | | | + + + + + + + + | Specimen | + + | Blood | + + + + + + + | Performing | Address | City/State/Zipcode | Phone Number | | Organization | | | | + + + + + | [facility] | [address] | [place] [address] | [phone] | + + + + + Type [...] + + + | [facility] | [id number] | | [facility] | | | | | | LABORATORY | | + + + + + + | [facility] | Testing performed at | | [facility] | | | | [facility];[address] | | LABORATORY | | | | [address];[place] [address] | | | | + + + + + + + + | Specimen | + + | Blood | + + + + + + + | Performing | Address | City/State/Zipcode | Phone Number | | Organization | | | | + + + + + | [facility] | [address] [facility] [address] | [place] [address] | [phone] | + + + + + documented [...] | | | DAILY, First dose on [facility] 07/23/19 | | AM PST | [...] | | | | | | longer, zadqge-oqh-iyzsi use of | | | | | [...] | | | | | | | vfudaw-ylt-tetgu use of at least | | | [...] | | | | First dose on [facility] 07/23/19 at 0900 | | AM [...]
--- OUTSIDE RECORDS SUMMARY | ~2019-10-27 | XMS | Encounter Summary ---
Demographics + + + | Address | [address] | | | [place] [address] | + + + | Home Phone [...] [place], | | | | | [place] [address] | | + + + + + | Kellen Briones | ECON | [place] | | | | | [address] | | + + + + + Care Team Providers + +------+ + | Care Manager Heavy Equipment Name | Role | Phone | + [...] [address] | [address] [place], [place] | (Primary Dx) | | | | [place], [place] | [address] | | | | | [address] | | | | | | [phone] | | | +--------+ + + + [...]
--- OUTSIDE RECORDS SUMMARY | ~2019-10-27 | XMS | Encounter Summary ---
Demographics + + + | Address | [address] | | | [place] [address] | + + + | Home Phone [...] [place], | | | | | [place] [address] | | + + + + + | Kellen Briones | ECON | [place], [place] | | | | | [address] | | + + + + + Care Team Providers + +------+ + | Care Family Member Caretaker Name | Role | Phone | + [...] Thoracic or | [place], | [address] | | | | | lumbosacral | Tk Monreal MD | [place], | | | | | neuritis or | [address] | [place] | | | | | | ST [place] | [address] | | | | | radiculitis, | [place], [place] | Phone: | | | | | unspecified | [address] | [phone] | | | | | Procedures | Phone: | Fax: | | | | | AL INJECT | [phone] | [phone] | | | | | ANES/STEROID | Fax: | | | | | | FORAMEN | [phone] | | | | | | LUMBAR/SACRA [...] + + | 10/06/ | Hospital | [facility] | Tk Ann | Lumbar radiculopathy | | 2013 | Encounter | MED CTR XRAY [address] | [address], [address] | | | | | [address] [place] | [facility] [place] | | | | | [place] [address] | [address] | | | | | [phone] | | | | | | | Slice Cutting Machine Operator [facility] | | | | | | [place] [...] 10/06/13 Bilateral Transforaminal Epidural Steroid Injections | [facility] | | Diagnosis: Lumbar radiculopathy ICD-9 Code 724.4 Ms. Clementine Cortez | [facility] | | Annabella presents to the fluoroscopy suite for fluoroscopically-guided | [facility] | | bilateral L5-S1 transforaminal [...] | + + + + + | [facility] | [address] | [place] | [phone] | | [facility] | | [address] | | | - IMAGING | | [...]
--- OUTSIDE RECORDS SUMMARY | ~2019-10-27 | XMS | Encounter Summary ---
Demographics + + + | Address | [address] | | | [place] [address] | + + + | Home Phone [...] [place], | | | | | [place] [address] | | + + + + + | Kellen Briones | ECON | [place], [place] | | | | | [address] | | + + + + + Care Team Providers + +------+ + | Care Navy Fighter Pilot Name | Role | Phone | [...] + + | 08/01/ | Telephone | [facility] | Ramon Real | Other | | 2012 | | [place] [address] | MD Idris [address] | | | | | [address] | [place], [place] | | | | | [place], [place] | [address] | | | | | [address] | [phone] | | | | | [phone] | | | +--------+ + + + [...]
--- OUTSIDE RECORDS SUMMARY | ~2019-10-27 | XMS | Encounter Summary ---
Demographics + + + | Address | [address] | | | [place] [address] | + + + | Home Phone [...] [place], | | | | | [place] [address] | | + + + + + | Kellen Briones | ECON | [place] | | | | | [address] | | + + + + + Care Team Providers + +------+ + | Care Fiber Optic Central Office Installer Name | Role | Phone | + +------+ + | Barb Marte | THANG | | + +------+ + Encounter Details +--------+ + + + + | Date | Type | Department | Care Team | Description | +--------+ + + + + | 03/05/ | Hospital | [facility] | Barb Marte PA | Abnormal mammogram | | 2018 | Encounter | MED CTR ULTRASOUND | [address] | | | | | [address] | [address] [place] | | | | | [place] | [address] | | | | | [address] | | | | | | [phone] | | | +--------+ + + + [...]
--- OUTSIDE RECORDS SUMMARY | ~2019-10-27 | XMS | Clinical Summary ---
Demographics + + + | Address | [address] | | | [place] [address] | + + + | Home Phone | | + + + | Preferred Language | Unknown | + + + | Marital Status | Unknown | + + + | Baptism Affiliation | Unknown | + + + [...] Providers + +------+ + | Care Financial Foundations Representative Name | Role | Phone | + +------+ + PCP | Unavailable | + +------+ + Source Comments HOLLY is fully live on both [facility] Amb[facility] and [facility] InPatient.[facility] Allergies Not on File Medications Not on [...]
--- OUTSIDE RECORDS SUMMARY | ~2019-10-27 | XMS | Encounter Summary ---
Demographics + + + | Address | [address] | | | [place] [address] | + + + | Home Phone [...] [place], | | | | | [place] [address] | | + + + + + | Kellen Briones | ECON | [place] | | | | | [address] | | + + + + + Care Team Providers + +------+ + | Care Leasing Representative Name | Role | Phone | [...] lumbar (Primary Dx); | | | | [place], [place] | [place] [address] | Lumbar | | | | [address] | [phone] | radiculopathy | | | | [phone] | | | +--------+ + + + [...]
[~2019-10-27 20:47] MED LIST changes: +ADULT LOW DOSE81 MG PO; +AMLODIPINE BESY10 MG PO; +AMOX TR-K CLV1 EACH PO; +CYMBALTA30 MG PO; +DURAGESIC1 EACH TOP; +GABAPENTIN100 MG PO; +KLOR-CON M1010 MEQ PO; +MULTI VITAMIN1 EACH PO; +PROBIOTIC1 EAC3 PO
--- OUTSIDE RECORDS SUMMARY | 2019-10-27 20:50 | XMS ---
PreManage Notification: RADHA NUNEZ Security Sock Folder Events No recent Security Events currently on file CRITERIA MET - PDMP CARE PROVIDERS JENNIFFER ALMANZAR Physician Color Blender 01/30/2018-Current PHONE: Unknown Monica has no Care Guidelines for this patient. Ruben VISIT COUNT (12 MO.) 3 [facility] TOTAL 3 NOTE: Visits indicate total known visits. ED/UCC VISIT TRACKING (12 MO.) 10/27/2019 20:48 [facility] TYPE: Emergency COMPLAINT: - ALTERED LOC 05/12/2019 14:44 [facility] TYPE: Emergency COMPLAINT: - METABOLIC ENCEPHALOPATHY 01/06/2019 15:25 [facility] TYPE: Emergency COMPLAINT: - INJURIES FROM FALL DIAGNOSES: - Allergy status to other drugs, medicaments and biological sub - Other specified disorders of breast - Other jail (current) drug therapy - Old myocardial infarction - Personal history of transient ischemic attack (TIA), and cere - Unspecified injury of thorax, initial encounter - Other nonmedicinal substance allergy status - Essential (primary) hypertension INPATIENT VISIT TRACKING (12 MO.) 07/22/2019 06:02 [facility] TYPE: Surgery DIAGNOSES: - Other intervertebral disc degeneration, lumbar region - Spondylolisthesis, lumbar region - Type 1 diabetes mellitus without complications 05/14/2019 16:[address] [facility] TYPE: Medical Surgical COMPLAINT: - ACUTE KIDNEY INJURY DIAGNOSES: - Acute kidney failure, unspecified - Gastro-esophageal reflux disease without esophagitis - Type 2 diabetes mellitus without complications - Presence of aortocoronary bypass graft - Dorsalgia, unspecified - Metabolic encephalopathy - Chronic pain syndrome - Hypothyroidism, unspecified - Allergy status to other drugs, medicaments and biological sub - Presence of aortocoronary bypass graft - Other pneumonia, unspecified organism - Atherosclerotic heart disease of [place] coronary artery witho - Atherosclerotic heart disease of [place] coronary artery witho - Opioid dependence, uncomplicated - Chronic pain syndrome - Pneumonitis due to inhalation of food and vomit - Other jail (current) drug therapy - Noninfective gastroenteritis and colitis, unspecified - [facility] (current) use of oral hypoglycemic drugs - Acute kidney failure, unspecified - Other director long term care (current) drug therapy - Other pneumonia, unspecified organism - Type 2 diabetes mellitus without complications - Hypothyroidism, unspecified - [facility] (current) use of aspirin - Occlusion and stenosis of unspecified carotid artery - Occlusion and stenosis of unspecified carotid artery - Hyperlipidemia, unspecified - Hyperlipidemia, unspecified - Dorsalgia, unspecified - [facility] (current) use of oral hypoglycemic drugs - Opioid dependence, uncomplicated - Gastro-esophageal reflux disease without esophagitis - Allergy status to other drugs, medicaments and biological sub - Noninfective gastroenteritis and colitis, unspecified - rn long term care (current) use of aspirin - Pneumonitis due to inhalation of food and vomit [email or web address]
[2019-10-27] MEDS ORDERED: CYMBALTA20 MG PO (21:04)
[2019-10-27] MEDS ORDERED: ROBAXIN-750750 MG PO (21:06)
[2019-10-27] MEDS ORDERED: FENTANYL1 EACH TD (21:11)
[2019-10-27] MEDS ORDERED: OXYCODONE HCL5 MG PO (21:12)
--- NOTE | 2019-10-28 00:19 | NUR ---
PT ADMITTED TO ROOM 120 FROM ED. TOTAL DEPENDENT ON MOVING FROM STRETCHER TO BED, BOTH LOWER ARMS WRAPPED WITH KERLIX, PT REPEATING SERIES OF NUMBERS. RA, SATS @100, DOES NOT HAVE TEETH, OR DENTURES IN PLACE.
--- NOTE | 2019-10-28 00:30 | NUR ---
PT LYING IN BED, DROWSY BUT RESPONSIVE TO VOICE AND TOUCH. ORIENTED TO SELF. LIMITED ASSESSMENT COMPLETE. PT WITH EXPRESSIVE APHASIA, UNABLE TO ANSWER SOME QUESTIONS. NOTED TO HAVE REPETITIVE SPEECH. PT ABLE TO FOLLOW COMMANDS. HEAD ORTHOPEDIC TEAM PHYSICIAN STRENGTHS EQUAL. SCHEDULED MEDS ADMINISTERED. BLOOD SUGAR WNL, NO INSULIN GIVEN. IVF INFUSING. BILAT FOREARMS WRAPPED IN GAUZE D/T SUPERFICIAL SKIN TEARS PRIOR TO ADMISSION. WARM BLANKET PROVIDED. SIDE RAILS UP AND BED ALARM ON FOR SAFETY. ROOM ORIENTATION AND NURSE CALL LIGHT ORIENTATION ATTEMPTED, UNABLE TO DETERMINE HOW MUCH PT COMPREHENDS. PT IN VIEW OF NURSES STATION.
--- NOTE | 2019-10-28 00:51 | NUR ---
HISTORY OBTAINED PER MR PT UNABLE TO GIVE ANSWERS. MED RX, PT HAS MULT BOTTLES FILLED PER SAF[facility]AY IN SEPTEMBER AND OCTOBER 2019, ABLE TO DETERMINE MG'S OF MEDICATIONS BUT UNABLE TO DETERMINE LAST TIME PT TOOK.
--- NOTE | 2019-10-28 03:14 | NUR ---
PT RESTING IN BED WITH EYES CLOSED, NAD.
--- NOTE | 2019-10-28 04:20 | NUR ---
SPOT CHECK SPO2 RESULT 86-88% ON RA. O2 1L/NC PLACED. SPO2 98% NOW.
--- NOTE | 2019-10-28 05:06 | NUR ---
PT TALKING OUT LOUD. IN TO CHECK ON PT, SPEECH GARBLED BUT PT EVENTUALLY ABLE TO COMMUNICATE SHE NEEDED TO "PEE". UP TO BSC WITH 2PA. GAIT STEADY. PT BACK TO BED, SOMANI WELL. IVF INFUSING. PERICO HOSJosiane PLACED. ASSISTED PT WITH ORAL CARE. PT REMAINS NPO.
--- NOTE | 2019-10-28 06:27 | NUR ---
SCHEDULED MEDS ADMINISTERED. PT APPEARS RESTLESS REPEATING "UH HUH". EVENTUALLY STATES "I'M HOT". BLANKETS REMOVED. ROOM TEMP DECREASED. PT ALSO NOTED TO BE THRUSTING HER TONGUE AND WILL LEAVE HER TONGUE OUT FOR PERIODS OF TIME. NO SWALLOWING ISSUES NOTED. BED ALARM ON FOR SAFETY. PT IN VIEW OF NURSES STATION.
--- NOTE | 2019-10-28 07:44 | NUR ---
RECIEVED REPORT FROM EVI GALICIA. PT IS AWAKE IN THE ROOM BUT IS CONFUSED SCREAMING "YOU DON'T LOVE ME" AND "I DON'T WANT PAIN MEDICATION"
--- NOTE | 2019-10-28 08:15 | NUR ---
IN PTS ROOM DUE TO PT SETTING OFF BED ALARM TRYING TO GET OUT OF BED. PT STATING "WHY ARE YOU TRYING TO KILL ME?" AND "I NEED NO PAIN MEDS" AND "YOU KILLED MY SISTER" PT THEN BEGAN SCRATING STAFF, TRYING TO BITE STAFF THAT WERE TRYING TO KEEP PT SAFE. THIS RN HOLDING PTS ARMS SO RODRIGUEZ RN COULD GET ACCESS TO PTS IV. PT BEGAN TRYING TO KICK THIS RN IN THE CHEST. PT GIVEN 2MG OF HALDOL PER VERBAL ORDER FROM FOR AGITATION.
--- NOTE | 2019-10-28 08:15 | NUR ---
PT TRYING TO CRAWL OUT OF BED, REPEATING NONSENSICAL SPEECH CONTINUALLY YELLING. CLAWING AND TRYING TO BITE STAFF. ATTEMPTS TO CALM OR REDIRECT PT DID NOT WORK, ONLY AGGREVATED PT. CALLED DR DE LOS SANTOS, HE ORDERED 2MG HALIDOL. 1:1 SITTER NOW IN ROOM.
--- NOTE | 2019-10-28 08:50 | NUR ---
IN PTS ROOM TO CHECK ON PT. WHILE THIS RN WAS ASKING PT MENTATION QUESTIONS THE PT ATTEMPTED TO SLAP THIS RN ACCROSS THE FACE, PT ONLY ABLE TO KAVITHA THE SIDE OF THIS RN'S MASK.
--- NOTE | 2019-10-28 10:16 | NUR ---
PATIENT FINALLY RESTING WITH EYES CLOSED. THIS COMPANION CAREGIVER AND GRAYSON MELENDEZ ATTEMPTED TO TAKE PATIENTS BP- PATIENT BECAME AGITATED. THIS COMPANION CAREGIVER IS SITTING IN PATIENTS ROOM. NO OTHER NEEDS.
[2019-10-28] MEDS ORDERED: ZESTRIL5 MG PO (12:47)
--- NOTE | 2019-10-28 12:47 | NUR ---
MED REC COMPLETE
--- NOTE | 2019-10-28 13:13 | NUR ---
PATIENT RESTING IN BED. DAUGHTER IN ROOM. PATIENT USES THE BASE COMMODE. TWO PERSON ASSISTING. PATIENT BACKS TO BED.VITAL SIGNS AND I&O DONE. CALL LIGHT WITHIN REACH. NO OTHER NEEDS AT THIS TIME
--- NOTE | 2019-10-28 13:25 | NUR ---
IN PTS ROOM GIVING MEDS. PTS DAUGHTER AT BEDSIDE QUESTIONING PTS MEDS. PT IS A&O X2 NOW AND IS SMILING. PT HAS NO COMPLAINTS AT THIS TIME
--- NOTE | 2019-10-28 14:30 | NUR ---
in pts room changing pts wound dressing. pt alert and oriented x3 at this time. removed pts old dressings, cleaned wounds with wound hide cleaner, flushed with normal saline, applied new non-adherent dressings and roll gauze to pts bilateral forearms. at this time also restarted pts iv pt tolerated this all well and was not agitated during this time
--- NOTE | 2019-10-28 15:00 | NUR ---
pt became confused and agitated when loren toledo was taking her bp on the wrong arm. educated pt on why we have to do it on the other arm. pt actively trying to get words out but none are coherent in a sentence- expressive aphsia
--- NOTE | 2019-10-28 17:42 | NUR ---
PT IS SEEN FOR A WOUND CONSULT OF SKIN TEARS TO BILATERAL ARMS. NORA NORIEGA, RN REPORTS THAT SHE HAS ALREADY DRESSED THE SKIN TEARS WITH NO ADHERENT PADS AND ROLL GAUZE. THIS RN IS AGREEABLE TO THIS TREATMENT WITH THE SUGGESTION OF ADDING MEDIHONEY. NORA REPORTS THAT THE LEFT FOREARM DOES HAVE SKIN FLAPS AND SHE DID NOT REAPPROXIMATE THEM. THE DRESSINGS ARE REMOVED FROM THE LEFT FOREARM AND THE SKIN FLAPS ARE REHDYRATED USING NORMAL SALINE. THIS RN IS ABLE TO REAPPROXIMATE BOTH SKIN FLAPS, STERI STRIPS ARE PLACED TO KEEP THE FLAPS IN PLACE. MEDIHONEY IS APPLIED TO THE NONADHERENT PAD AND PLACE OVER THE SKIN TEAR, THE PAD IS SECURED IN PLACE WITH ROLL GAUZE. PT TOLERATES THE REAPPROXIAMTION OF THE SKIN FLAPS WITH NO PAIN. PLAN OF CARE: 1. GENTLY CLEANSE SKIN TEARS WITH WOUND CLEANSER AND GAUZE 2. LEAVE ANY STERI STRIPS IN PLACE UNTIL THEY FALL OFF, REAPPLY IF NECESSARY. TRIM EDGES IF BECOME FRAYED. 3. APPLY MEDIHONEY TO NONADHERENT PADS, THEN PLACE OVER SKIN TEARS 4. SECURE NONADHERENT PADS IN PLACE WITH ROLL GAUZE 5. CHANGE EVERY 3-4 DAYS OR NEEDED FOR SOILED DRESSINGS
--- NOTE | 2019-10-28 18:05 | NUR ---
PATIENT SITTING UP IN BED. PATIENT IN VERY PLEASANT THIS EVENING- SAYING "PLEASE AND THANK YOU" PATIENT WAS REPOSITIONED FOR DINNER. CALL LIGHT IN REACH, NO OTHER NEEDS AT THIS TIME.
--- NOTE | 2019-10-28 19:05 | NUR ---
REPORT RECEIVED FROM DAY RN. PT IN ROOM, EYES CLOSED, RESP EVEN UNLABORED.
--- NOTE | 2019-10-28 20:45 | NUR ---
AFTER VITALS, PT REQUESTED TO USE BATHROOM. BACK BRACE APPLIED PRIOR TO GETTING UP BSC, WITH 2 PA, PLEASANT, COOPERATIVE, LAUGHING. STEADY ON FEET, BUT HELD ON TO STAFF. VOIDED WITHOUT DIFFICULTY.
--- NOTE | 2019-10-28 20:53 | NUR ---
DR DE LOS SANTOS NOTIFIED OF PT ELEVAED BP. DR DE LOS SANTOS WILL PUT ORDERS IN.
--- NOTE | 2019-10-28 22:27 | NUR ---
MEDICAL ORDERLY AND RN GOT PT UP TO BSC, WITH MIMINAL ASSIST OF TWO, MEDICAL ORDERLY ABLE TO PUT THE PT BACK TO BED BY SELF. DENTURES REMOVED, PER REQUEST. PT REMINDED TO CALL WHEN SHE NEEDS ASSISTANCE, LIGHTS OFF.
--- NOTE | 2019-10-28 22:29 | NUR ---
WHEN DOING ASSESSMENT ON PT, NOTED HER BOTTOM IS RED, BLANCHABLE. BARRIER CREAM APPLIED.
--- NOTE | 2019-10-28 23:29 | NUR ---
IV PUMP ALARMING, NEW BAG IVF INFUSING WNL ORDERED. pt RESTING IN BED. ASSISTED WITH LIGHTS. NO ADDITIONAL REQUESTS. CALL LIGHT IN LAP. pt COOPERATIVE, ORIENTATED AT THIS TIME.
--- NOTE | 2019-10-29 00:46 | NUR ---
CHECKED ON PT, SHE REQUESED TO USE BSC. REGISTERED NURSE MATERNAL CHILD'S ASSISTING.
--- NOTE | 2019-10-29 01:10 | NUR ---
RECEIVED REPORT FROM GRAYSON VASQUEZ. pt ON BSC. REPORTED "I'M THROUGH" CLINICAL CYTOGENETICS DIRECTOR IN ROOM TO ASSIST. NO FURTHER REQUESTS AT THIS TIME. WHITEBOARD UPDATED.
--- NOTE | 2019-10-29 03:21 | NUR ---
ASSISTED PATIENT UP TO BEDSIDE COMMODE, BACK TO BED. PATIENT TOLERATED WELL. PATIENT REPORTS CALL LIGHT WAS NOT WORKING, CALL LIGHT UNPLUGGED AND REPLUGGED BACK IN AND NOW WORKS. NO FURTHER NEEDS AT THIS TIME. PATIENT IS CHEERFUL AND IN GOOD MOOD.
--- NOTE | 2019-10-29 03:30 | NUR ---
pt BACK IN BED POST VOID. CISCO UNIFIED COMMUNICATIONS ENGINEER IN ROOM. ASSESSMENT DONE. pt REPORTED "NORMAL" PAIN IN LEFT ARM. REFUSED PAIN MEDICATION. NO REQUESTS AT THIS TIME. CALL LIGHT WITHIN REACH.
--- NOTE | 2019-10-29 04:45 | NUR ---
CALL LIGHT ON. pt REQUESTED THAT DOOR BE CLOSED MORE. COMPLETED PER REQUEST. CALL LIGHT WITHIN REACH.
--- NOTE | 2019-10-29 05:45 | NUR ---
MANUAL BP TAKEN BY RN 188/84 LEFT ARM. pt RESTING IN BED. DRINK OF WATER PROVIDED. CALL LIGHT IN REACH.
--- NOTE | 2019-10-29 05:46 | NUR ---
PATIENT RESTING IN BED, CALL LIGHT IN REACH. NO FURTHER NEEDS AT THIS TIME.
--- NOTE | 2019-10-29 05:56 | NUR ---
SCHEDULED MED GIVEN (SEE MAR). NO REQUESTS AT THIS TIME. CALL LIGHT WITHIN REACH.
--- NOTE | 2019-10-29 06:20 | NUR ---
NOTIFIED OF BLOOD PRESSURE
--- NOTE | 2019-10-29 06:37 | NUR ---
IV BP MED GIVEN (SEE MAR). VITALS TAKE BEFORE AND AFTER. pt DENIED LIGHTHEADEDNESS OR ANY SIDE EFFECTS. CALL LIGHT WITHIN REACH.
--- NOTE | 2019-10-29 07:01 | NUR ---
Report recieved from Enrike Lott RN. Introduced self to patient, denies needs at this time.
--- NOTE | 2019-10-29 09:33 | NUR ---
PUMP ALARMING, INFUSION COMPLETE. NEW IV FLUID BAG HUNG. PT ASSISTED UP TO BEDSIDE COMODE. VOIDS AND HAS BM WITH OUT ISSUE. BARRIE CARE DONE. FRESH DEPENDS IN PLACE. PT UP TO CHAIR. BACK BRACE IN PLACE. WARM BLANKET PROVIDED. LINENS CHANGED. NO ADDITIONAL REQUESTS OR COMPLAINTS AT THIS TIME. CALL LIGHT WITHIN REACH.
--- NOTE | 2019-10-29 10:42 | NUR ---
SPOKE WITH PATIENT'S DAUGHTER, PER PATIENT REQUEST. REQUEST TO HAVE BELONGINGS BROUGHT TO FACILITY IF SHE STAYS THE NIGHT AGAIN. DAUGHTER ALSO REQUESTS DR. DE LOS SANTOS UPDATE HER ON PATIENT STATUS. INFORMED DAUGHTER, THIS NURSE WILL INFORM DR. DE LOS SANTOS OF HER REQUEST.
--- NOTE | 2019-10-29 10:45 | NUR ---
DR. DE LOS SANTOS IN TO ASSESS PATIENT AT THIS TIME.
[2019-10-29] MEDS ORDERED: MAGNESIUM OXID400 M1 PO (10:54)
--- NOTE | 2019-10-29 12:54 | NUR ---
ATE 100% OF LUNCH. TOLERATED AMBULATING WELL. ASSESSEMENT COMPLETED. DENIES OTHER NEEDS. CALL LIGHT IN REACH. FEET ELEVATED PER REQUEST. UP IN CHAIR AT THIS TIME.
--- NOTE | 2019-10-29 13:11 | EKG ---
[facility] [address] [facility] [place] [address] Signed Normal sinus rhythm Incomplete right bundle branch block Anterior infarct (cited on or before 07-AUG-2016) Abnormal ECG When compared with ECG of 30-JAN-2018 12:33, Questionable change in initial forces of Septal leads ST no longer depressed in Inferior leads ST no longer depressed in Lateral leads T wave inversion no longer evident in Lateral leads Confirmed by JOSE DE LOS SANTOS MD ([id number]) on 10/29/2019 1:11:15 PM Electronically Signed By: JOSE DE LOS SANTOS MD 10/29/19 1311 PATIENT NAME: RADHA NUNEZ Electrocardiogram DATE OF : 44 PHYSICIAN: JOSE DE LOS SANTOS MD REPORT #: [id number] REPORT IS CONFIDENTIAL AND NOT TO BE RELEASED WITHOUT AUTHORIZATION
--- NOTE | 2019-10-29 14:36 | NUR ---
DRESSING TO RIGHT ARM CHANGED. TOLERATED WITHOUT C/O DISCOMFORT. PREVIOUS DRESSING REMOVED, NON-ADHERENT PLACED ON SITE AND WRAPPED WITH KERLIX.
--- NOTE | 2019-10-29 14:41 | NUR ---
DC INSTRUCTIONS GIVEN TO PATIENT'S DAUGHTER PER PATIENT REQUEST. VERBALIZES UNDERSTANDING. DENIES QUESTIONS.
--- NOTE | 2019-10-29 15:24 | NUR ---
TAKEN IN WHEELCHAIR BY Keshav BRAUN RN, TO PRIVATE VEHICLE. DC TO HOME.
== END 2019-10-29 15:25 | disposition home or self-care (01) ==
LOC: ED 20:47 → MS 20:49
PROVIDERS: ADMIT Internal Medicine
DX: G92 Toxic encephalopathy (principal); T42.6X5A Adverse effect of other antiepileptic and sedative-hypnotic drugs, initial encounter; T40.4X5A Adverse effect of other synthetic narcotics, initial encounter; T40.2X5A Adverse effect of other opioids, initial encounter; T42.8X5A Adverse effect of antiparkinsonism drugs and other central muscle-tone depressants, initial encounter; I10 Essential (primary) hypertension; E11.9 Type 2 diabetes mellitus without complications; I25.10 Atherosclerotic heart disease of native coronary artery without angina pectoris; E78.5 Hyperlipidemia, unspecified; K21.9 Gastro-esophageal reflux disease without esophagitis; G89.4 Chronic pain syndrome; F32.9 Major depressive disorder, single episode, unspecified; Z91.048 Other nonmedicinal substance allergy status; Z95.5 Presence of coronary angioplasty implant and graft; Z88.8 Allergy status to other drugs, medicaments and biological substances; Z79.899 Other long term (current) drug therapy; Z79.82 Long term (current) use of aspirin; Z79.84 Long term (current) use of oral hypoglycemic drugs
CPT/HCPCS: 36415; 51701; 70450; 71045; 80053; 81001; 83735; 84484; 85025; 85651; 93005; 93010; 96361; 96365; 96366; 96375; 96376; 99285-25; G0378; G0480; J1630; J3475; J7121; U0002

== ENCOUNTER 2023-09-14 15:10 | Emergency (ER) | payer MEDICARE, OTHER ==
[~2023-09-14 15:10] MED LIST changes: +CYMBALTA20 MG PO; +FENTANYL1 EACH TD; +MAGNESIUM OXID400 M1 PO; +OXYCODONE HCL5 MG PO; +ROBAXIN-750750 MG PO; +ZESTRIL5 MG PO
--- OUTSIDE RECORDS SUMMARY | 2023-09-14 15:13 | XMS ---
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 Ruben VISIT COUNT (12 MO.) 2 [facility] 1 [facility]Y [facility] TOTAL 3 NOTE: Visits indicate total known visits. ED/UCC VISIT TRACKING (12 MO.) 09/14/2023 15:10 [facility] TYPE: Emergency COMPLAINT: - SEIZURE 05/13/2023 17:49 [facility] TYPE: Emergency DIAGNOSES: - Acute kidney failure, unspecified - Hypo-osmolality and hyponatremia - Hypomagnesemia - Urinary tract infection, site not specified - Weakness - Dehydration and UTI - Urinary Complaint - Weakness 04/03/2023 04:07 [facility] TYPE: Emergency DIAGNOSES: - Acute cystitis with hematuria - Acute kidney failure, unspecified - Hyperkalemia - Altered Mental Status - Chest Pressure - Cough INPATIENT VISIT TRACKING (12 MO.) 05/13/2023 17:49 [facility] TYPE: Internal Medicine DIAGNOSES: - Acute kidney failure with acute cortical necrosis - Acute kidney failure, unspecified - Altered mental status, unspecified - Arthrodesis status - Chronic pain syndrome - Disorientation, unspecified - Hypo-osmolality and hyponatremia - Hypomagnesemia - Spondylolisthesis, lumbar region - Urinary tract infection, site not specified - Weakness [email or web address]
[2023-09-14 15:55] LABS: ALBUMIN 1.7 g/dL (3.4-5.0); ALBUMIN/GLOBULIN RATIO 0.36 (1.1-2.4); ALCOHOL, MEDICAL <3 ng/dL (<3); ALKALINE PHOSPHATASE 122 U/L (46-116); ALT (SGPT) 10 U/L (14-59); ANION GAP 13.5 (7-21); AST (SGOT) 18 U/L (15-37); BILIRUBIN, TOTAL 0.4 ng/dL (0.2-1.0); BUN/CREATININE RATIO 11.11 (6.0-28.6); CALCIUM 7.2 mg/dL (8.5-10.1); CARBON DIOXIDE 24 mmol/L (21-32); CHLORIDE 101 mmol/L (98-107); CREATINE KINASE 53 U/L (26-192); CREATININE, SERUM 1.08 mg/dL (0.55-1.02); GLOMERULAR FILTRATION RATE,EST 52 mL/min (>60); POTASSIUM 3.5 mmol/L (3.5-5.1); PROTEIN, TOTAL 6.4 g/dL (6.4-8.2); UREA NITROGEN 12 mg/dL (7-18)
[2023-09-14 16:06] LABS: BASOPHILS 0.5 % (0-2); HEMATOCRIT 29.4 % (35.0-50.0); HEMOGLOBIN 9.9 g/dL (12.0-18.0); LYMPHOCYTES 20.5 % (24-44); MCH 29.4 (27-36); MCHC 33.5 g/dl (30-36); MCV 87.6 fl (81-99); MONOCYTES 4.9 % (0-12); NEUTROPHILS 73.1 % (39-80); PLATELET COUNT 343 K/uL (140-440); RBC 3.36 M/ul (4.3-5.7); RDW 15.7 (10.5-15.0)
[2023-09-14 16:22] LABS: BILIRUBIN, URINE NEGATIVE (negative); BLOOD/HGB, URINE TRACE-I (Negative); KETONE, URINE NEGATIVE (Negative); LEUK ESTERASE, URINE MODERATE (negative); NITRITE, URINE POSITIVE (negative); PH, URINE 5.5 (5-7)
[2023-09-14 16:29] LABS: EPITHELIAL CELLS, URINE SQUAMOUS 1+ /lpf (0-1+)
[2023-09-14 16:30] LABS: BACTERIA, URINE 4+ /hpf (negative); CASTS, URINE NONE SEEN \\lpf; COLLECTION TYPE, URINE CLEAN CATCH; CRYSTALS, URINE NONE SEEN (0-1+); REFLEX CULTURE, URINE Yes (No); WHITE BLOOD CELLS, URINE >50 /HPF (0-5)
[2023-09-14 16:42] LABS: ABO A; ANTIBODY SCREEN NEGATIVE; RH POSITIVE
[2023-09-14 16:43] LABS: AMPHETAMINES, URINE NEGATIVE (NEGATIVE); BARBITURATES, URINE NEGATIVE (NEGATIVE); BENZODIAZEPINE, URINE NEGATIVE (NEGATIVE); BUPRENORPHINE, URINE NEGATIVE (NEGATIVE); CANNABINOID, URINE POSITIVE (NEGATIVE); COCAINE, URINE NEGATIVE (NEGATIVE); ECSTASY, URINE NEGATIVE (NEGATIVE); FENTANYL, URINE NEGATIVE (NEGATIVE); METHADONE, URINE NEGATIVE (NEGATIVE); OPIATES, URINE NEGATIVE (NEGATIVE); OXYCODONE, URINE NEGATIVE (NEGATIVE); PHENCYCLIDINE, URINE NEGATIVE (NEGATIVE)
[2023-09-14] MEDS ORDERED: droPERidol 5 MG/2 ML VIAL IV ONE (16:45)
[2023-09-14] MEDS ORDERED: levETIRAcetam 500 MG/5 ML VIAL IV ONE (17:30)
[2023-09-14] MEDS ORDERED: TRANEXAMIC ACID IN NACL,ISO-OS 1,000 MG/100 ML PIGGYBACK IV ONE (17:30)
[2023-09-14] MEDS ORDERED: LABETALOL HCL 20 MG/4 ML VIAL ONE (18:00)
[2023-09-14] MEDS ORDERED: LABETALOL HCL 100 MG/20 ML MDV IV ONE (18:00)
[2023-09-14 18:11] VITALS: BP 159/82
--- NOTE | 2023-09-14 21:25 | EKG ---
[facility] [address] [place] [address] Signed Normal sinus rhythm Left axis deviation Incomplete right bundle branch block Minimal voltage criteria for LVH, may be normal variant ( Ehrenberg product ) T wave abnormality, consider anterolateral ischemia Abnormal ECG When compared with ECG of 30-MAY-2022 15:11, Criteria for Anterolateral infarct are no longer present Criteria for Inferior infarct are no longer present Confirmed by Nila Rubio MD () on 09/14/2023 9:24:52 PM Electronically Signed By: NILA RUBIO MD 09/14/[id number] PATIENT NAME: RADHA NUNEZ Electrocardiogram DATE OF : 44 PHYSICIAN: NILA RUBIO MD REPORT #: [id number] REPORT IS CONFIDENTIAL AND NOT TO BE RELEASED WITHOUT AUTHORIZATION
== END 2023-09-14 18:10 | disposition short-term general hospital (02) ==
LOC: ED 15:10
PROVIDERS: Emergency Medicine
DX: S06.5X9A Traumatic subdural hemorrhage with loss of consciousness of unspecified duration, initial encounter (principal); I10 Essential (primary) hypertension; I25.2 Old myocardial infarction; E11.9 Type 2 diabetes mellitus without complications; W06.XXXA Fall from bed, initial encounter; Z86.73 Personal history of transient ischemic attack (TIA), and cerebral infarction without residual deficits; Z91.09 Other allergy status, other than to drugs and biological substances; Z88.8 Allergy status to other drugs, medicaments and biological substances; Z79.899 Other long term (current) drug therapy; Z79.82 Long term (current) use of aspirin; Z79.890 Hormone replacement therapy
CPT/HCPCS: 36415; 70450; 71045; 72125; 72170; 80053; 80307; 81001; 82553; 83605; 83690; 85025; 86850; 86900; 86901; 87077; 87088; 87186; 93005; 93010; 96374; 96375; 99285-25; G0480; J1953